=== PATIENT | female | born 1955 | race Caucasian/White ===

== ENCOUNTER 2020-06-23 15:09 | Inpatient (IN) | payer MEDICARE, SELFPAY ==
[2020-06-23] VITALS (8 sets, daily range): BP systolic 98–130; BP diastolic 48–90; PULSE 60–97; RESP 12–20; TEMP 36.6–37.6; O2SAT 2–99; BMI 43.0
--- NOTE | 2020-06-23 | US_ITS ---
EXAMINATION: US ABDOMEN COMPLETE CLINICAL INFORMATION: 64 year old female patient with elevated LFTs.. COMPARISON: CT of the abdomen and pelvis done July 2019. TECHNIQUE: Real-time imaging of the abdominal viscera. This exam was performed to the patient's bedside. FINDINGS: PANCREAS: Visualized portions are normal. No peripancreatic effusions. ABDOMINAL AORTA: The proximal and midportion of the aorta are normal in caliber. INFERIOR VENA CAVA: Visualized portions are normal. LIVER: Limited evaluation, but there is evidence of mild dilatation of the intrahepatic biliary ducts. GALLBLADDER: Evidently, the gallbladder has been surgically removed. COMMON BILE DUCT: Dilated measuring up to 1.2 cm in diameter. RIGHT KIDNEY: Normal. No hydronephrosis. No renal calculi or focal parenchymal lesions. The kidney measures 10.7 cm in maximum dimension. LEFT KIDNEY: Normal. No hydronephrosis. No renal calculi or focal parenchymal lesions. The kidney measures 9.6 cm in maximum dimension. SPLEEN: No focal disease. The spleen measures 11.5 cm in maximum dimension. FREE FLUID: None. IMPRESSION: Technically limited exam. Mild dilatation of the intrahepatic bile ducts and prominent common bile duct in this postcholecystectomy patient.
--- NOTE | 2020-06-23 15:17 | ED_ITS ---
HPI - Altered Mental Status General Chief Complaint: Altered Mental Status Stated Complaint: NON-RESPONSIVE Time Seen by Provider: 06/23/20 15:12 Source: EMS and old records reviewed Mode of arrival: EMS Limitations: altered mental status History of Present Illness MD complaint: altered mental status Onset (ago): day(s) (seemed okay early this morning but throughout the day worsened) Timing confirmed by: family member Severity: severe Consistency of symptoms: getting Worse Context: other (recent UTI but reportedly did not take her medications) Associated symptoms: chills, malaise, weakness and other (AMS) Related Data Allergies Allergy/AdvReac Type Severity Reaction Status Date / Time Sulfa (Sulfonamide Allergy Severe DIFFICULTY Verified 06/23/20 15:25 Antibiotics) BREATHING [SULFA (SULFONAMIDE ANTIBIOTICS)] cephalexin [From KEFLEX] Allergy Intermediate RASH,HIVES Verified 06/23/20 15:25 amoxicillin [AMOXICILLIN] Allergy Unknown DENIES Verified 06/23/20 15:25 THIS ALLERGY 03/28/2018 penicillin V Allergy Unknown Unknown Verified 06/23/20 15:25 sumatriptan [From IMITREX] AdvReac Severe HEART Verified 06/23/20 15:25 PALPITATIONS topiramate [From TOPAMAX] AdvReac Severe AGITATION Verified 06/23/20 15:25 Penicillins [PENICILLINS] AdvReac Unknown THRUSH Verified 06/23/20 15:25 Keflex Allergy Unknown Unknown Uncoded 06/23/20 15:25 Sulfa Allergy Unknown Unknown Uncoded 06/23/20 15:25 Topamax Allergy Unknown Unknown Uncoded 06/23/20 15:25 Review of Systems Review of Systems: ROS unable to be obtained due to altered mental status PENDING SALE TO [facility] Past Medical History Medical History (Updated 06/23/20 @ 16:15 by Mena Paul DO) Brain tumor CHF (congestive heart failure) Diabetes Diabetic acetonemia HTN (hypertension) Neuropathy UTI (urinary tract infection) Surgical History (Updated 06/23/20 @ 15:42 by Mena Paul DO) History of hysterectomy Social History Social History (Updated 06/23/20 @ 15:42 by Mena Paul DO) Smoking Status: Never smoker Use of substances other than those prescribed or required for medical reasons: No Advance Directives: No Advance Directives Information Provided: Yes Physical Exam Vital Signs: Vital Signs: Vital Signs Temp Pulse Resp BP Pulse Ox 06/23/20 15:16 99.7 F 93 16 104/48 L 96 Body Mass Index 43.0 Appearance: moderate distress, glassy eyes, vague staring but does track and respond to painful stimuli, lethargic Eyes: Pupils equal, round and reactive to light. ENT: Pharynx dry MM Neck: Normal inspection. Neck supple. CVS: Normal heart rate and rhythm. Pulses normal. Respiratory: No respiratory distress. Breath sounds normal. Abdomen: Soft and no grimace to palpation Skin: Skin warm and dry. Normal skin color. Normal skin turgor. Extremities: No lower extremity edema. No calf ttp Neuro: diffuse weakness, responds to painful stimuli, staring off, no focal deficits, lethargic and disoriented Course Course Course Narrative: signed out to Dr. Saunders pending workup MDM - Altered Mental Status MDM Narrative Medical decision making narrative: 64 yo tammyphoebe sheppard Lab Data Result diagrams: 06/23/20 15:39 06/23/20 15:39 Labs: Lab Results 06/23/20 06/23/20 06/23/20 Range/Units 15:26 15:38 15:39 WBC 7.9 (4.8-10.8) X10*3/uL RBC 4.03 L (4.20-5.50) X10*6/uL Hgb 13.0 (12.0-16.0) g/dl Hct 38.3 (37-47) % MCV 95.0 (80-98) fL MCH 32.3 (27.0-33.0) pg MCHC 33.9 (31.0-35.0) g/dl RDW 13.7 (11.0-16.0) % Plt Count 223 (160-400) X10*3/uL MPV 9.4 (9.4-12.3) fL Immature Gran % (Auto) 0.8 H (0.0-0.4) % Neut % (Auto) 64.6 (45-73) % Lymph % (Auto) 20.1 (20-40) % [place] % (Auto) 11.9 H (2-11) % Eos % (Auto) 2.3 (0-4) % Baso % (Auto) 0.3 (0-2) % Lymph # (Auto) 1.6 (1.2-4.9) X10*3/uL [place] # (Auto) 0.9 (0.1-1.2) X10*3/uL Eos # (Auto) 0.2 (0.0-0.4) X10*3/uL Baso # (Auto) 0.0 (0.0-0.2) X10*3/uL Abs Immat Gran (auto) 0.06 H (0.00-0.03) X10*3/uL Absolute Neuts (auto) 5.1 (2.0-8.3) X10*3/uL Absolute Nucleated RBC 0.000 (0.0-0.012) X10*3/uL Nucleated RBC % (auto) 0.0 (0.0-0.2) /100WBC PT (10.8-13.0) SEC INR (0.9-1.1) APTT (24.1-38.0) SEC VBG pH 7.32 (7.32-7.43) VBG pCO2 51 mmhg VBG Oxygen Liters/Min TNP VBG pO2 178 mmhg VBG HCO3 25 mmol/L VBG O2 Saturation 99.0 % VBG Base Excess -1.5 mmol/L POC Glucose 152 H (60-115) mg/dL Urine Color Urine Appearance Urine pH (5.0-8.0) Ur Specific [place] (1.005-1.025) Urine Protein (NEG-TRACE) MG/DL Urine Glucose (UA) (NEG) MG/DL Urine Ketones (NEG) MG/DL Urine Blood (NEG) Urine Nitrite (NEG) Ur Leukocyte Esterase (NEG) 06/23/20 06/23/20 Range/Units 15:39 15:51 WBC (4.8-10.8) X10*3/uL RBC (4.20-5.50) X10*6/uL Hgb (12.0-16.0) g/dl Hct (37-47) % MCV (80-98) fL MCH (27.0-33.0) pg MCHC (31.0-35.0) g/dl RDW (11.0-16.0) % Plt Count (160-400) X10*3/uL MPV (9.4-12.3) fL Immature Gran % (Auto) (0.0-0.4) % Neut % (Auto) (45-73) % Lymph % (Auto) (20-40) % [place] % (Auto) (2-11) % Eos % (Auto) (0-4) % Baso % (Auto) (0-2) % Lymph # (Auto) (1.2-4.9) X10*3/uL [place] # (Auto) (0.1-1.2) X10*3/uL Eos # (Auto) (0.0-0.4) X10*3/uL Baso # (Auto) (0.0-0.2) X10*3/uL Abs Immat Gran (auto) (0.00-0.03) X10*3/uL Absolute Neuts (auto) (2.0-8.3) X10*3/uL Absolute Nucleated RBC (0.0-0.012) X10*3/uL Nucleated RBC % (auto) (0.0-0.2) /100WBC PT 11.5 (10.8-13.0) SEC INR 1.0 (0.9-1.1) APTT 50.0 H (24.1-38.0) SEC VBG pH (7.32-7.43) VBG pCO2 mmhg VBG Oxygen Liters/Min VBG pO2 mmhg VBG HCO3 mmol/L VBG O2 Saturation % VBG Base Excess mmol/L POC Glucose (60-115) mg/dL Urine Color YELLOW Urine Appearance CLEAR Urine pH 6.0 (5.0-8.0) Ur Specific [place] <= 1.005 (1.005-1.025) Urine Protein NEG (NEG-TRACE) MG/DL Urine Glucose (UA) NEG (NEG) MG/DL Urine Ketones NEG (NEG) MG/DL Urine Blood NEG (NEG) Urine Nitrite NEG (NEG) Ur Leukocyte Esterase NEG (NEG) ECG Data ECG #1: Attestation: I personally reviewed and interpreted this ECG as follows: ECG interpretation date: 06/23/20 ECG interpretation time: 15:44 Interpretation: Rate: 86 Rhythm: NSR [place]: normal Normal P waves. Normal MARYBETH. Normal QRS complex. ST T wave : normal qTC: normal prior studies: no acute ischemia The study has been interpreted contemporaneously by me. . Critical Care Time Critical Care Time Critical Care Time: Yes Total Critical Care Time: 30 Attestation: reivew of notes, bedside, IVF, empiric antibiotics I personally attest to this time spent taking care of the patient Discharge Plan Discharge Clinical Impression: Altered mental status
--- NOTE | 2020-06-23 15:18 | CT_ITS ---
EXAMINATION: CT HEAD WITHOUT CONTRAST CLINICAL INFORMATION: 64-year-old female patient with acute mental status change. COMPARISON: CT the brain on 03/16/2020. (Generalized atrophy and nonspecific periventricular white matter disease). TECHNIQUE: Contiguous axial imaging was performed from the skull base to vertex without intravenous administration of contrast. This CT examination was performed using dose optimization techniques as appropriate, variously including the following: *Automated exposure control *Adjustment of mA and/or kV according to patient size (this includes techniques or standardized protocols for targeted exams where dose is matched to indication/reason for exam; i.e. extremities or head) *Use of iterative reconstruction technique DLP: 737 mGy-cm FINDINGS: [employer]ience [employer] Clerk: There is hyperostosis interna frontalis. There is no evidence of acute intracranial hemorrhage or territorial infarction. No abnormal mass effect or midline shift is seen. [place] to white matter differentiation is well preserved. No extra-axial fluid collections are identified. The ventricles are concordant with the cerebral sulci. A tiny lacunar infarct is located in the left basal ganglia, no change. There is no abnormal attenuation within the brain parenchyma. The osseous structures and soft tissues are normal. The mastoid air cells and visualized portions of the paranasal sinuses are well aerated. IMPRESSION: No acute intracranial pathology.
--- NOTE | 2020-06-23 15:18 | ECG_ITS ---
Test Reason : AMS Blood Pressure : / mmHG Vent. Rate : 086 BPM Atrial Rate : 086 BPM P-R Int : 130 ms QRS Dur : 088 ms QT Int : 378 ms P-R-T Axes : 027 019 028 degrees QTc Int : 452 ms Normal sinus rhythm Normal ECG When compared with ECG of 31-MAY-2020 22:55, No significant change was found Referred By: Mena Paul Electronically Signed By:JAX ROGERS MD
--- NOTE | 2020-06-23 15:19 | XR_ITS ---
EXAMINATION: XR CHEST PORTABLE CLINICAL INFORMATION: 64-year-old female patient with acute mental status change. COMPARISON: Last chest x-ray done 11/07/2019. TECHNIQUE: AP portable semierect view of the chest was obtained. The time of examination was 4:20 PM. FINDINGS: The heart is normal in size. An azygos lobe is present. Lung volumes are low but the lungs are clear showing no acute pulmonary parenchymal or pleural disease. Posterior spinal fusion hardware involves the upper thoracic spine. There are old fractures of the left humeral neck and distal right clavicle. Callus formation is forming about an old fracture of an anterior lower left rib. There is calcific tendinitis of the right shoulder joint. IMPRESSION: No acute cardiopulmonary disease.
[2020-06-23 15:52] LABS: MANUAL DIFF FLAG NO
[2020-06-23 15:56] LABS: Basophils Percent Auto 0.3 % (0-2); Eosinophils Absolute Auto 0.2 X10*3/uL (0.0-0.4); Eosinophils Percent Auto 2.3 % (0-4); Hematocrit 38.3 % (37-47); Imm Gran Abs Auto 0.06 X10*3/uL (0.00-0.03); Imm Gran Pct Auto 0.8 % (0.0-0.4); Lymphocytes Absolute Auto 1.6 X10*3/uL (1.2-4.9); Lymphocytes Percent Auto 20.1 % (20-40); Mean Corpuscular HGB Conc 33.9 g/dl (31.0-35.0); Mean Corpuscular Hemoglobin 32.3 pg (27.0-33.0); Mean Platelet Volume 9.4 fL (9.4-12.3); Monocytes Absolute Auto 0.9 X10*3/uL (0.1-1.2); Monocytes Percent Auto 11.9 % (2-11); Neutrophils Absolute Auto 5.1 X10*3/uL (2.0-8.3); Neutrophils Percent Auto 64.6 % (45-73); Platelet Count 223 X10*3/uL (160-400); Red Blood Count 4.03 X10*6/uL (4.20-5.50); Red Cell Distribution Width 13.7 % (11.0-16.0); White Blood Count 7.9 X10*3/uL (4.8-10.8)
[2020-06-23 16:00] LABS: Glucose, Whole Blood 152 mg/dL (60-115)
[2020-06-23] MEDS: 0.9 % Sodium Chloride 1,000 ML 999 ML IVCONT ×2 (16:01→18:35)
[2020-06-23] MEDS: cefTRIAXone sodium 1 GM in 0.9 % Sodium Chloride 50 ML IV (16:01)
[2020-06-23 16:03] LABS: PCO2 VBG 51 mmhg; pH VBG 7.32 (7.32-7.43)
[2020-06-23 16:04] LABS: Base Excess VBG -1.5 mmol/L; HCO3 VBG 25 mmol/L; PO2 VBG 178 mmhg
[2020-06-23 16:04] LABS: Glucose Urine UA NEG (NEG); Leukocyte Esterase Urine NEG (NEG); Nitrite Urine NEG (NEG); Specific Gravity - Urine <= 1.005 (1.005-1.025); Urine Blood NEG (NEG); Urine Ketones NEG (NEG); Urine Protein NEG (NEG-TRACE)
[2020-06-23 16:05] LABS: Blood Gas Serial # 5396
[2020-06-23 16:05] LABS: Prothrombin Time 11.5 SEC (10.8-13.0)
[2020-06-23 16:07] LABS: Color Urine YELLOW
[2020-06-23 16:08] LABS: Appearance Urine CLEAR
[2020-06-23 16:16] LABS: Bacteria Urine 1+ /LPF; RBC Urine 0 /HPF (0); Squamous Epithelial Cell Urine 1+ /LPF; Uric Acid Crystals Urine 1+ /LPF; WBC Urine 0 /HPF (0-4)
[2020-06-23 16:34] LABS: Lactic Acid 1.2 mmol/L (0.5-2.0)
[2020-06-23 16:37] LABS: Ethanol < 10 mg/dL
[2020-06-23 16:38] LABS: Ammonia 50 umol/L (13-55)
[2020-06-23 16:39] LABS: Acetaminophen LAB 1 mcg/mL (<30)
[2020-06-23 16:44] LABS: B Type Natriuretic Peptide 15 pg/mL (<100)
[2020-06-23 16:45] LABS: Alanine Aminotransferase 526 U/L (0-31); Albumin Level 4.1 g/dL (3.5-5.0); Alkaline Phosphatase 162 U/L (39-117); Anion Gap 17 (12-20); Aspartate Amino Transferase 807 U/L (5-31); Bilirubin Direct 0.5 mg/dL (0.0-0.5); Bilirubin Total 0.6 mg/dL (0.0-1.0); Blood Urea Nitrogen 42 mg/dL (9-16); Calcium 9.9 mg/dL (8.4-10.2); Carbon Dioxide 24 mmol/L (22-29); Chloride 103 mmol/L (96-108); Creatinine Clr Calc Pharmacy 40.4; Estimated Glomerular Filt Rate 34; Glucose Random 156 mg/dL (60-115); Lipase 38 U/L (8-78); Magnesium 1.9 mg/dL (1.6-2.6); Potassium 4.5 mmol/l (3.3-5.1); Sodium 139 mmol/L (135-145); Total Protein 6.7 g/dL (6.5-8.0)
[2020-06-23 16:54] LABS: Salicylate < 5.0 mg/dL (15-30)
[2020-06-23 16:59] LABS: Troponin-I High Sensitivity 4.1 ng/L (<3.5-17.0)
[2020-06-23 17:01] LABS: Thyroid Stimulating Hormone 2.03 mIU/mL (0.32-4.0)
--- NOTE | 2020-06-23 17:57 | PC.NURSE ---
THIS RN SPOKE WITH PT'S VICK IN [facility]. UPDATED ON PT'S STATUS AND PENDING ADMISSION. PHONE NUMBER IS [phone]/
[2020-06-23 18:04] LABS: SARS COV2 PCR INHOUSE NEGATIVE (Negative)
--- NOTE | 2020-06-23 18:35 | PC.NURSE ---
ns 1l bolus scanned x 3
[2020-06-23 20:27] LABS: Glucose, Whole Blood 153 mg/dL (60-115)
--- NOTE | 2020-06-23 21:42 | PC.NURSE ---
home phone [phone] [facility]
--- NOTE | 2020-06-23 21:46 | PC.NURSE ---
Patient having spastic movements, moving arms above head and clenching fists. patient looks at this RN when this RN calls patients name otherwise patient not answering. Dr Saunders to bedside.
[2020-06-23] MEDS: LORazepam 2 MG/ML VIAL IVPUSH (21:52)
--- NOTE | 2020-06-23 21:57 | P.HPIM_ITS ---
History of Present Illness Date of Service: 06/23/20 Chief Complaint: AMS 64 y/o female who presented from home due to AMS. Per history provided by the ED (patient unable to provide with any significant hx), patient was noted by family members to be lethargic and not like herself . Per ED, patient has had multiple episodes of UTI before with a similar presentation of AMS due to metabolic encephalopathy. Last admission on 11/20, Ucx positive for E coli ESBL negative which was treated with Rocephin successfully. Vitals at some point borderline hypotensive with tachycardia and tachypnea, UA negative but patient was on antbx at home which might be a false result. Given findings raises concern for possible sepsis secondary to UTI. Patient was given one dose of Rocephin and decision for admission was given. Patient seen and examined at the bedside, laying down in bed, lethargic, not responsive to verbal or painful stimuli but awake, disoriented. ROS unable to be obtained. Physical exam positive for disorientation PMHx: Diabetes mellitus, hypertension, diastolic heart failure, obstructive sleep apnea, depression, restless legs syndrome, recurrent urinary tract infections. SURGICAL HISTORY: Hysterectomy, submandibular surgery yesterday. Toxic habits: Deanna hx of alcohol abuse, smoking or IVDA Review of Systems Review of Systems: Yes Other (unable to be obtained) [facility] Medical History Brain tumor CHF (congestive heart failure) Diabetes Diabetic acetonemia HTN (hypertension) Neuropathy UTI (urinary tract infection) Functional capacity: independent ambulation Surgical History History of hysterectomy Social History Smoking Status: Never smoker Use of substances other than those prescribed or required for medical reasons: No Advance Directives: No Advance Directives Information Provided: Yes Meds Allergies Allergy/AdvReac Type Severity Reaction Status Date / Time Sulfa (Sulfonamide Allergy Severe DIFFICULTY Verified 06/23/20 15:25 Antibiotics) BREATHING [SULFA (SULFONAMIDE ANTIBIOTICS)] cephalexin [From KEFLEX] Allergy Intermediate RASH,HIVES Verified 06/23/20 15:25 amoxicillin [AMOXICILLIN] Allergy Unknown DENIES Verified 06/23/20 15:25 THIS ALLERGY 03/28/2018 penicillin V Allergy Unknown Unknown Verified 06/23/20 15:25 sumatriptan [From IMITREX] AdvReac Severe HEART Verified 06/23/20 15:25 PALPITATIONS topiramate [From TOPAMAX] AdvReac Severe AGITATION Verified 06/23/20 15:25 Penicillins [PENICILLINS] AdvReac Unknown THRUSH Verified 06/23/20 15:25 Keflex Allergy Unknown Unknown Uncoded 06/23/20 15:25 Sulfa Allergy Unknown Unknown Uncoded 06/23/20 15:25 Topamax Allergy Unknown Unknown Uncoded 06/23/20 15:25 Home Medications Medication Instructions Recorded Confirmed Type amitriptyline 75 mg PO BEDTIME 06/23/20 06/23/20 History atorvastatin 20 mg PO DAILY 06/23/20 06/23/20 History baclofen 10 mg PO TID 06/23/20 06/23/20 History dicyclomine 20 mg PO TID 06/23/20 06/23/20 History gabapentin 300 mg PO BID 06/23/20 06/23/20 History hydrochlorothiazide 12.5 mg PO DAILY 06/23/20 06/23/20 History insulin glargine [Lantus Solostar 40 unit SUBCUT BEDTIME 06/23/20 06/23/20 History U-100 Insulin] insulin lispro [Humalog KwikPen 2 - 14 unit SUBCUT DIRECTED 06/23/20 06/23/20 History Insulin] nitrofurantoin macrocrystal 100 cap PO DAILY 06/23/20 06/23/20 History pantoprazole 40 mg PO BID@0630,1630 06/23/20 06/23/20 History promethazine 25 mg PO Q4-6H PRN 06/23/20 06/23/20 History quetiapine 50 mg PO BEDTIME 06/23/20 06/23/20 History sucralfate 1 g PO QIDACHS 06/23/20 06/23/20 History Physical Exam Vital Signs and Narrative: Vital Signs: Last Vital Signs Temp 97.9 F 06/23/20 20:08 Pulse 97 06/23/20 21:18 Resp 20 06/23/20 21:18 BP 107/87 06/23/20 21:18 Pulse Ox 99 06/23/20 21:18 Body Mass Index 43.0 Const: General: no acute distress and other (disoriented) HENMT: Head: Yes normal to inspection Eyes: General: appearance normal, both eyes and all related structures Neck: Yes normal visual inspection Chest: Chest palpation & inspection: normal inspection of the chest Resp: Effort & Inspection: normal respiratory effort Cardio: Jugular venous distension: no JVD Rhythm: regular rhythm Heart sounds: S1 normal heart sound present GI: Inspection: Yes normal to inspection Skin: General skin exam: no rashes or lesions noted Neuro: General: confusion Extrem: General: Yes normal to inspection Results Labs Labs: Laboratory Tests 06/23/20 06/23/20 06/23/20 02:05 15:26 15:38 WBC RBC Hgb Hct MCV MCH MCHC RDW Plt Count MPV Immature Gran % (Auto) Neut % (Auto) Lymph % (Auto) [place] % (Auto) Eos % (Auto) Baso % (Auto) Lymph # (Auto) [place] # (Auto) Eos # (Auto) Baso # (Auto) Abs Immat Gran (auto) Absolute Neuts (auto) Absolute Nucleated RBC Nucleated RBC % (auto) PT INR APTT VBG pH VBG pCO2 VBG Oxygen Liters/Min VBG pO2 VBG HCO3 VBG O2 Saturation VBG Base Excess Sodium Potassium Chloride Carbon Dioxide Anion Gap BUN Creatinine Estim Creat Clear Calc Estimated GFR POC Glucose 152 H Random Glucose Lactic Acid Calcium Magnesium Total Bilirubin Direct Bilirubin AST ALT Alkaline Phosphatase Ammonia 50 Troponin I High Sens 4.1 B-Natriuretic Peptide Total Protein Albumin Lipase TSH Urine Color Urine Appearance Urine pH Ur Specific [place] Urine Protein Urine Glucose (UA) Urine Ketones Urine Blood Urine Nitrite Ur Leukocyte Esterase Urine RBC Urine WBC Ur Squamous Epith Cells Uric Acid Crystals Urine Bacteria Salicylates Acetaminophen Ethyl Alcohol Coronavirus (PCR) 06/23/20 06/23/20 06/23/20 15:38 15:39 15:39 WBC 7.9 RBC 4.03 L Hgb 13.0 Hct 38.3 MCV 95.0 MCH 32.3 MCHC 33.9 RDW 13.7 Plt Count 223 MPV 9.4 Immature Gran % (Auto) 0.8 H Neut % (Auto) 64.6 Lymph % (Auto) 20.1 [place] % (Auto) 11.9 H Eos % (Auto) 2.3 Baso % (Auto) 0.3 Lymph # (Auto) 1.6 [place] # (Auto) 0.9 Eos # (Auto) 0.2 Baso # (Auto) 0.0 Abs Immat Gran (auto) 0.06 H Absolute Neuts (auto) 5.1 Absolute Nucleated RBC 0.000 Nucleated RBC % (auto) 0.0 PT INR APTT VBG pH 7.32 VBG pCO2 51 VBG Oxygen Liters/Min TNP VBG pO2 178 VBG HCO3 25 VBG O2 Saturation 99.0 VBG Base Excess -1.5 Sodium Potassium Chloride Carbon Dioxide Anion Gap BUN Creatinine Estim Creat Clear Calc Estimated GFR POC Glucose Random Glucose Lactic Acid Calcium Magnesium Total Bilirubin Direct Bilirubin AST ALT Alkaline Phosphatase Ammonia Troponin I High Sens B-Natriuretic Peptide 15 Total Protein Albumin Lipase TSH Urine Color Urine Appearance Urine pH Ur Specific [place] Urine Protein Urine Glucose (UA) Urine Ketones Urine Blood Urine Nitrite Ur Leukocyte Esterase Urine RBC Urine WBC Ur Squamous Epith Cells Uric Acid Crystals Urine Bacteria Salicylates Acetaminophen Ethyl Alcohol Coronavirus (PCR) 06/23/20 06/23/20 06/23/20 15:39 15:39 15:39 WBC RBC Hgb Hct MCV MCH MCHC RDW Plt Count MPV Immature Gran % (Auto) Neut % (Auto) Lymph % (Auto) [place] % (Auto) Eos % (Auto) Baso % (Auto) Lymph # (Auto) [place] # (Auto) Eos # (Auto) Baso # (Auto) Abs Immat Gran (auto) Absolute Neuts (auto) Absolute Nucleated RBC Nucleated RBC % (auto) PT 11.5 INR 1.0 APTT 50.0 H VBG pH VBG pCO2 VBG Oxygen Liters/Min VBG pO2 VBG HCO3 VBG O2 Saturation VBG Base Excess Sodium 139 Potassium 4.5 Chloride 103 Carbon Dioxide 24 Anion Gap 17 BUN 42 H Creatinine 1.53 H Estim Creat Clear Calc 40.4 Estimated GFR 34 POC Glucose Random Glucose 156 H Lactic Acid 1.2 Calcium 9.9 Magnesium 1.9 Total Bilirubin 0.6 Direct Bilirubin 0.5 AST 807 H ALT 526 H Alkaline Phosphatase 162 H Ammonia Troponin I High Sens B-Natriuretic Peptide Total Protein 6.7 Albumin 4.1 Lipase 38 TSH 2.03 Urine Color Urine Appearance Urine pH Ur Specific [place] Urine Protein Urine Glucose (UA) Urine Ketones Urine Blood Urine Nitrite Ur Leukocyte Esterase Urine RBC Urine WBC Ur Squamous Epith Cells Uric Acid Crystals Urine Bacteria Salicylates < 5.0 L Acetaminophen Ethyl Alcohol Coronavirus (PCR) 06/23/20 06/23/20 06/23/20 15:39 15:39 15:51 WBC RBC Hgb Hct MCV MCH MCHC RDW Plt Count MPV Immature Gran % (Auto) Neut % (Auto) Lymph % (Auto) [place] % (Auto) Eos % (Auto) Baso % (Auto) Lymph # (Auto) [place] # (Auto) Eos # (Auto) Baso # (Auto) Abs Immat Gran (auto) Absolute Neuts (auto) Absolute Nucleated RBC Nucleated RBC % (auto) PT INR APTT VBG pH VBG pCO2 VBG Oxygen Liters/Min VBG pO2 VBG HCO3 VBG O2 Saturation VBG Base Excess Sodium Potassium Chloride Carbon Dioxide Anion Gap BUN Creatinine Estim Creat Clear Calc Estimated GFR POC Glucose Random Glucose Lactic Acid Calcium Magnesium Total Bilirubin Direct Bilirubin AST ALT Alkaline Phosphatase Ammonia Troponin I High Sens B-Natriuretic Peptide Total Protein Albumin Lipase TSH Urine Color YELLOW Urine Appearance CLEAR Urine pH 6.0 Ur Specific [place] <= 1.005 Urine Protein NEG Urine Glucose (UA) NEG Urine Ketones NEG Urine Blood NEG Urine Nitrite NEG Ur Leukocyte Esterase NEG Urine RBC 0 Urine WBC 0 Ur Squamous Epith Cells 1+ Uric Acid Crystals 1+ Urine Bacteria 1+ Salicylates Acetaminophen 1 Ethyl Alcohol < 10 Coronavirus (PCR) 06/23/20 06/23/20 17:03 20:22 WBC RBC Hgb Hct MCV MCH MCHC RDW Plt Count MPV Immature Gran % (Auto) Neut % (Auto) Lymph % (Auto) [place] % (Auto) Eos % (Auto) Baso % (Auto) Lymph # (Auto) [place] # (Auto) Eos # (Auto) Baso # (Auto) Abs Immat Gran (auto) Absolute Neuts (auto) Absolute Nucleated RBC Nucleated RBC % (auto) PT INR APTT VBG pH VBG pCO2 VBG Oxygen Liters/Min VBG pO2 VBG HCO3 VBG O2 Saturation VBG Base Excess Sodium Potassium Chloride Carbon Dioxide Anion Gap BUN Creatinine Estim Creat Clear Calc Estimated GFR POC Glucose 153 H Random Glucose Lactic Acid Calcium Magnesium Total Bilirubin Direct Bilirubin AST ALT Alkaline Phosphatase Ammonia Troponin I High Sens B-Natriuretic Peptide Total Protein Albumin Lipase TSH Urine Color Urine Appearance Urine pH Ur Specific [place] Urine Protein Urine Glucose (UA) Urine Ketones Urine Blood Urine Nitrite Ur Leukocyte Esterase Urine RBC Urine WBC Ur Squamous Epith Cells Uric Acid Crystals Urine Bacteria Salicylates Acetaminophen Ethyl Alcohol Coronavirus (PCR) NEGATIVE Assessment and Plan (1) Altered mental status: Qualifiers: Altered mental status type: unspecified Qualified Code(s): R41.82 - Altered mental status, unspecified Status: Acute Likely secondary to metabolice encephalopathy Continue with IV antbx as ordered and monitor mental status closely Neurology consult in the am (2) Elevated liver function tests: Status: Acute Follow up US abdomen complete (3) Sepsis: Status: Acute Keep MAP >65 mmHg Continue with Rocephin for gram negative coverage Follow up Bcx and Ucx Infectious disease consult in the am (4) CHF (congestive heart failure): Status: Inactive (5) UTI (urinary tract infection): Status: Inactive (6) HTN (hypertension): Status: Inactive continue with HCTZ home dose (7) Depression: Status: Acute continue with amitriptiline home dose continue with baclofen home dose continue with quetiapine home dose (8) Hyperlipidemia: Status: Acute continue with atorvastatin home dose (9) IBS (irritable bowel syndrome): Status: Acute continue with diciclomine home dose (10) Diabetes mellitus with peripheral angiopathy: Status: Acute continue with Insulin regimen continue with gabapentin home dose
--- NOTE | 2020-06-23 22:21 | PC.NURSE ---
patient resting on stretcher w/ eyes closed. resp even and non labored. opens eyes to sternal rub, now raising arms back up in air now that awoken.
[2020-06-24] VITALS (19 sets, daily range): BP systolic 106–199; BP diastolic 54–95; PULSE 67–126; RESP 18–22; TEMP 36.3–37.2; O2SAT 74–100; BMI 43.0
[2020-06-24] MEDS: Heparin Sodium,Porcine 5,000 UNIT/ML VIAL 5000 UNIT SUBCUT ×2 (03:17→11:46)
[2020-06-24] MEDS: diphenhydrAMINE HCL 50 MG/ML VIAL 12.5 MG IVPUSH (03:17)
[2020-06-24] MEDS: 0.9 % Sodium Chloride Flush 3 ML SYRINGE IVFLUSH ×3 (03:18→16:25)
[2020-06-24 03:29] LABS: Glucose, Whole Blood 174 mg/dL (60-115)
[2020-06-24] MEDS: Morphine Sulfate 2 MG/ML CARTRIDGE 1 MG IVPUSH (03:48)
--- NOTE | 2020-06-24 05:33 | PM.EVENT ---
Event Note Event Note: Notified patient now is agitated. I examined the patient at the bedside, still confused but more active now, moving all four extremities trying to get out of bed. One dose of Haldol and benadryl to be given now stat.
[2020-06-24] MEDS: Haloperidol Lactate 5 MG/ML VIAL 1 MG IM (05:59)
[2020-06-24] MEDS: diphenhydrAMINE HCL 50 MG/ML VIAL 25 MG IM (06:00)
[2020-06-24 06:21] LABS: MANUAL DIFF FLAG NO
[2020-06-24 06:33] LABS: Basophils Absolute Auto 0.1 X10*3/uL (0.0-0.2); Basophils Percent Auto 0.4 % (0-2); Eosinophils Absolute Auto 0.3 X10*3/uL (0.0-0.4); Eosinophils Percent Auto 2.4 % (0-4); Hematocrit 39.4 % (37-47); Imm Gran Abs Auto 0.11 X10*3/uL (0.00-0.03); Imm Gran Pct Auto 0.9 % (0.0-0.4); Lymphocytes Absolute Auto 2.2 X10*3/uL (1.2-4.9); Lymphocytes Percent Auto 17.9 % (20-40); Mean Corpuscular Hemoglobin 31.7 pg (27.0-33.0); Mean Corpuscular Volume 96.1 fL (80-98); Mean Platelet Volume 9.8 fL (9.4-12.3); Monocytes Absolute Auto 0.8 X10*3/uL (0.1-1.2); Monocytes Percent Auto 6.5 % (2-11); Neutrophils Percent Auto 71.9 % (45-73); Platelet Count 213 X10*3/uL (160-400); Red Cell Distribution Width 13.8 % (11.0-16.0); White Blood Count 12.5 X10*3/uL (4.8-10.8)
[2020-06-24 06:53] LABS: Anion Gap 20 (12-20); Blood Urea Nitrogen 31 mg/dL (9-16); Calcium 9.3 mg/dL (8.4-10.2); Carbon Dioxide 18 mmol/L (22-29); Chloride 109 mmol/L (96-108); Estimated Glomerular Filt Rate > 60; Glucose Random 202 mg/dL (60-115); Potassium 4.2 mmol/l (3.3-5.1); Sodium 143 mmol/L (135-145)
--- NOTE | 2020-06-24 08:42 | P.CDIC_ITS ---
CDI Concurrent Query Service Date: 06/24/20 Documentation Clarification: Please clarify if you are treating a proba ble/suspected/likely or confirmed: GARY No GARY GARY Provider Response: Other (GARY) Other Diagnosis: GARY PLEASE DO NOT DELETE/MODIFY EXISTING CONTENT Additional information is needed in order to code to the highest accuracy and appropriate Severity of Illness (SOI). Please clarify the information noted below in your progress notes and discharge summary. Risk Factors/Clinical Indicators/Treatments 64 F admitted with tonic clonic movement concerning for seizure, changed mental status, Metabolic Encephalopathy Recently treated for UTI. UC pending BUN 42, Creatinine 1.53 on admit BUN 24, Creatinine .85 on 05/31/20 CDS: Mari Funes RN Contact Number: [phone] Please Review the information above and exercise your independent professional judgment in responding to the query. If you concur, pleas document in the PROGRESS NOTES and DISCHARGE SUMMARY. If you do not agree with the query, please document in the query above. THIS QUERY IS PART OF THE PERMANENT MEDICAL RECORD
--- NOTE | 2020-06-24 08:58 | PC.NURSE ---
ASSUMED CARE AT 01:30. PATIENT ARRIVED TO UNIT STATUS POST 2 MG ATIVAN IV PER ED NURSE R/T ?TONIC-CLONIC SPASTICITY EPISODE IN ED; THEREFORE SEIZURE PRECAUTIONS IN PLACE. PATIENT ALSO IS ALERT, BUT PROFOUNDLY CONFUSED AND UNABLE TO RESPOND MEANINGFULLY TO QUESTIONS OR COMMANDS--SHE WILL REPEAT OW, AND NO BABY, AND GROAN, AND HER YES AND NO ANSWERS SEEM INCONSISTENT. SHE WAS, UPON ARRIVAL FROM ED, COMPLETELY NONVERBAL, BUT BECAME CONSTANTLY VERBAL IN THE ABOVE DESCRIBED WAYS. SHE WAS KEPT NPO AND FAILED NURSING BEDSIDE SWALLOW EVAL. PATIENT REQUIRED 1:1 SITTER IMMEDIATELY SHE WAS THRASHING BACK AND FORTH IN THE BED VIOLENTLY AND ERRATICALLY, IN A WAY THAT APPEARED TO BE EITHER BEHAVIORAL OR SPASTIC OR PERHAPS RELATED TO RLS. MD NOTIFIED, AND NEW ORDER FOR IV BENEDRYL, ADMINISTERED TO PATIENT TO HELP HER TOLERATE HER CARE AND INTERACT BETTER WITH PLAN OF CARE. PATIENT WAS SAYING OW! REPEATEDLY ABOVE, AND APPEARED TO HAVE NONVERBAL SIGNS OF PAIN, INCLUDING GRIMACING AND GROANING, BUT WAS UNABLE TO INDICATE THE LOCATION OF HER PAIN. DISCUSSED WITH MD, AND NEW ORDER FOR IV MORPHINE WAS ADMINISTERED WITH GOOD EFFECT, THOUGH SHORT-LIVED. ONE HOUR LATER, PATIENT CONTINUED TO DEMONSTRATE ABOVE BEHAVIOR CONSTANTLY THRASHING ABOUT. 1:1 SITTER WAS HAVING TROUBLE KEEPING PAITIENT SAFE. MD WAS CONTACTED AND ASKED TO COME TO BEDSIDE TO ASSESS PATIENT. DISCUSSED ?IS PATIENT'S AMMONIA LEVEL CLIMBING AND SHOULD WE RECHECK AMMONIA? MD ORDERED IV BENEDRYL AND 1 MG IV HALDOL TO HELP PATIENT TOLERATE HER CARE AND PARTICIPATE WITH CARE EASIER, SHE WAS REPEATEDLY INCONTINENT OF URINE, TOTAL INCONTINENCE OF 5 TIMES. JUST MD LEFT ROOM, PATIENT'S IV HAD COME LOOSE. MD NOTIFIED, AND CHANGED ROUTE OF ADMINISTRATION TO IM, AND THESE MEDICATIONS WERE ADMINISTERED WITH VERY MILD NOTICEABLE POSITIVE EFFECT, PATIENT WAS SLIGHTLY LESS VIOLENTLY THRASHING ABOUT, AND A NEW IV WAS PLACED IN HER RIGHT WRIST. PATIENT WAS DIAPHORETIC 2 X OVERNIGHT, AND HER POC WAS CHECKED AND WAS SLIGHTLY ELEVATED, 170'S.
[2020-06-24 09:17] LABS: Glucose, Whole Blood 195 mg/dL (60-115)
[2020-06-24 09:23] LABS: Alanine Aminotransferase 404 U/L (0-31); Albumin Level 4.1 g/dL (3.5-5.0); Alkaline Phosphatase 170 U/L (39-117); Aspartate Amino Transferase 292 U/L (5-31); Bilirubin Direct 0.3 mg/dL (0.0-0.5); Bilirubin Total 0.5 mg/dL (0.0-1.0); Total Protein 6.9 g/dL (6.5-8.0)
--- NOTE | 2020-06-24 10:50 | P.CNNE_ITS ---
History of Present Illness Data of Consult Primary Care Provider: Unknown Physician 64 y/o woman with PMHx of obesity, severe arthritis, idiopathic intracranial HTN s/p lumboperotineal shunt, and RLS who was brought to hospital with change in mental status. There was no witnessing of a convulsion or truama. It was not clear if she has taken any new med or drug. She was unable to provide any histroy. Review of Systems Review of Systems: Unable to perform ROS. No obvious trauma. Neurologic: Reports confusion Psychiatric: Psychiatric: Reports confusion [facility] Past Medical History Medical History (Updated 06/24/20 @ 10:59 by Nadeem Melendez MD) Brain tumor CHF (congestive heart failure) Diabetes Diabetic acetonemia HTN (hypertension) Neuropathy UTI (urinary tract infection) Functional capacity: independent ambulation Surgical History Surgical History History of hysterectomy Social History Social History Household Members: Unknown / Unable to assess Housing: Apartment Smoking Status: Never smoker Use of substances other than those prescribed or required for medical reasons: Unable to respond Spiritual Healthcare Practices: UNABLE TO ASSESS/RESPOND Jain Healthcare Practices: UNABLE TO ASSESS/RESPOND Cultural Healthcare Practices: UNABLE TO ASSESS/RESPOND Advance Directives: No Advance Directives Information Provided: Yes Recently lost weight without trying: Unsure Meds Allergies Allergy/AdvReac Type Severity Reaction Status Date / Time Sulfa (Sulfonamide Allergy Severe DIFFICULTY Verified 06/23/20 15:25 Antibiotics) BREATHING [SULFA (SULFONAMIDE ANTIBIOTICS)] cephalexin [From KEFLEX] Allergy Intermediate RASH,HIVES Verified 06/23/20 15:25 amoxicillin [AMOXICILLIN] Allergy Unknown DENIES Verified 06/23/20 15:25 THIS ALLERGY 03/28/2018 penicillin V Allergy Unknown Unknown Verified 06/23/20 15:25 sumatriptan [From IMITREX] AdvReac Severe HEART Verified 06/23/20 15:25 PALPITATIONS topiramate [From TOPAMAX] AdvReac Severe AGITATION Verified 06/23/20 15:25 Penicillins [PENICILLINS] AdvReac Unknown THRUSH Verified 06/23/20 15:25 Keflex Allergy Unknown Unknown Uncoded 06/23/20 15:25 Sulfa Allergy Unknown Unknown Uncoded 06/23/20 15:25 Topamax Allergy Unknown Unknown Uncoded 06/23/20 15:25 Home Medications Medication Instructions Recorded Confirmed Type amitriptyline 75 mg PO BEDTIME 06/23/20 06/23/20 History atorvastatin 20 mg PO DAILY 06/23/20 06/23/20 History baclofen 10 mg PO TID 06/23/20 06/23/20 History dicyclomine 20 mg PO TID 06/23/20 06/23/20 History gabapentin 300 mg PO BID 06/23/20 06/23/20 History hydrochlorothiazide 12.5 mg PO DAILY 06/23/20 06/23/20 History insulin glargine [Lantus Solostar 40 unit SUBCUT BEDTIME 06/23/20 06/23/20 History U-100 Insulin] insulin lispro [Humalog KwikPen 2 - 14 unit SUBCUT DIRECTED 06/23/20 06/23/20 History Insulin] nitrofurantoin macrocrystal 100 cap PO DAILY 06/23/20 06/23/20 History pantoprazole 40 mg PO BID@0630,1630 06/23/20 06/23/20 History promethazine 25 mg PO Q4-6H PRN 06/23/20 06/23/20 History quetiapine 50 mg PO BEDTIME 06/23/20 06/23/20 History sucralfate 1 g PO QIDACHS 06/23/20 06/23/20 History Physical Exam Vital Signs: Vital Signs: Vital Signs Temp Pulse Resp BP Pulse Ox 06/24/20 03:48 20 06/24/20 02:00 97.4 F 107 H 20 106/77 96 06/23/20 23:27 98.5 F 87 15 122/67 2 L 06/23/20 22:19 75 14 121/55 L 97 06/23/20 21:18 97 20 107/87 99 06/23/20 20:08 97.9 F 65 12 113/57 L 99 06/23/20 18:36 97.9 F 62 12 109/52 L 06/23/20 18:20 98.3 F 60 12 98/50 L 98 06/23/20 16:00 98.1 F 88 15 112/60 06/23/20 15:16 99.7 F 93 16 104/48 L 96 Body Mass Index 43.0 Drowsy, not responsive to verbal commands. Intermittently made an eye contact, said Hello. Did not repeat or named. EOMI, no nystagmus or deviation or jerking. Generatlised arms, legs and body dystonic posturing, restlessness. DTRs are trace to absent, plantars equivocal.Limited exam. Const: General: confusion Orientation/consciousness: confusion Neuro: General: confusion Results Labs CBC & Chem 7: 06/24/20 05:45 06/24/20 05:45 Labs: Short CBC 06/23/20 06/24/20 Range/Units 15:39 05:45 WBC 7.9 12.5 H (4.8-10.8) X10*3/uL Hgb 13.0 13.0 (12.0-16.0) g/dl Hct 38.3 39.4 (37-47) % Plt Count 223 213 (160-400) X10*3/uL BMP 06/23/20 06/24/20 15:39 05:45 Sodium 139 143 Potassium 4.5 4.2 Chloride 103 109 H Carbon Dioxide 24 18 L BUN 42 H 31 H Creatinine 1.53 H 0.91 Calcium 9.9 9.3 Liver Function 06/23/20 06/24/20 Range/Units 15:39 05:45 Total Bilirubin 0.6 0.5 (0.0-1.0) mg/dL Direct Bilirubin 0.5 0.3 (0.0-0.5) mg/dL AST 807 H 292 H (5-31) U/L ALT 526 H 404 H (0-31) U/L Alkaline Phosphatase 162 H 170 H (39-117) U/L Albumin 4.1 4.1 (3.5-5.0) g/dL Urine 06/23/20 Range/Units 15:51 Urine Color YELLOW Urine Appearance CLEAR Urine pH 6.0 (5.0-8.0) Ur Specific [place] <= 1.005 (1.005-1.025) Urine Protein NEG (NEG-TRACE) MG/DL Urine Glucose (UA) NEG (NEG) MG/DL CT brain WO: no sig pathology Chest XRay: ok Belly CT: no sig pathology Assessment and Plan (1) Encephalopathy acute: Status: Acute Impression: metabolic/toxic encephalopathy with possiblity of complex partial seizure status. She was febrile on admisstion suggesting an infectious etiology. She has a lumbo-peritoneal shunt that should also be considered as source of infection. She is not known to have seizure d/o rec: a: Stone culture b: cover her with antibiotics and antiviral c: LP for meningoencephalitis panel d: EEG. It is important to do even if it is limited. it might help e: Avoid neuroleptics f: PRN benzos but avoid using it as much as possible g: hydration h: DC all non-critical meds i: Check with family for anything unusual like empty bottles to r/o overdose. She was on Mirapex, cymbalta, and amitryptiline from my office for RLS, neuropathic pain, and migraine.
[2020-06-24 11:29] LABS: INTERNATIONAL NORM RATIO 1.1 (0.9-1.1); Prothrombin Time 12.6 SEC (10.8-13.0)
[2020-06-24 11:34] LABS: Ammonia 45 umol/L (13-55)
[2020-06-24] MEDS: Dextrose 5 % and 0.45 % NaCl 1,000 ML 80 ML IVCONT (13:20)
[2020-06-24] MEDS: LORazepam 2 MG/ML VIAL IM ×2 (13:54→14:48)
[2020-06-24 15:19] LABS: Glucose, Whole Blood 114 mg/dL (60-115)
--- NOTE | 2020-06-24 15:32 | ECG_ITS ---
Test Reason : AGITATION AND PAIN Blood Pressure : / mmHG Vent. Rate : 112 BPM Atrial Rate : 112 BPM P-R Int : 116 ms QRS Dur : 088 ms QT Int : 334 ms P-R-T Axes : -18 069 013 degrees QTc Int : 455 ms Sinus tachycardia Nonspecific T wave abnormality Inferior leads Abnormal ECG When compared with ECG of 23-JUN-2020 15:40, T wave inversion more evident in Inferior leads Referred By: Franco Villa Electronically Signed By:JAX ROGERS MD
--- NOTE | 2020-06-24 16:20 | MHC.CM.PN ---
Pt admitted with AMS and unable to provide history/baseline functioning information. CM attempted to contact pts /HCP, Ant Nichole ([phone]). Ant did not answer and his [employer] system was not set up. CM to revisit on 06/25/20
[2020-06-24] MEDS: CEFTRIAXONE SODIUM IV (16:25)
[2020-06-24] MEDS: SODIUM CHLORIDE 0.9% IV (16:25)
[2020-06-24] MEDS: vancomycin HCL 1,000 MG in 0.9 % Sodium Chloride 250 ML 180 MG IV (17:39)
--- NOTE | 2020-06-24 18:52 | HO.PM.IMPN ---
Subjective Subjective Date of Service: 06/24/20 Interval History: seen and examined multiple times today waxing and waning mental status this AM was able to answer questions and obey some basic commands later on became overtly agitated and was not diretable requiring security to be called. had to placed on restraints and also medicated. patient seen within the appropriate time afterwards (1 hour) and assessments completed. patient lost IV in this process and once patient was more calm after multiple rounds of IV ativan -- IV inserted and antibiotics/antivirals were able to be given Review of Systems unreliable due to mental status Physical Exam Vital Signs: Vital Signs: Vital Signs Temp Pulse Resp BP Pulse Ox 06/24/20 16:28 98.4 F 109 H 20 149/69 H 93 06/24/20 16:13 98.7 F 108 H 20 180/67 H 93 06/24/20 15:57 98.7 F 111 H 20 183/73 H 93 06/24/20 15:42 98.4 F 111 H 18 119/57 L 95 06/24/20 15:28 98.1 F 117 H 20 143/94 H 94 06/24/20 15:13 97.9 F 112 H 22 H 116/64 06/24/20 14:58 97.9 F 119 H 22 H 199/95 H 94 06/24/20 11:06 97.9 F 99 18 151/54 H 95 06/24/20 03:48 20 06/24/20 02:00 97.4 F 107 H 20 106/77 96 06/23/20 23:27 98.5 F 87 15 122/67 2 L 06/23/20 22:19 75 14 121/55 L 97 06/23/20 21:18 97 20 107/87 99 06/23/20 20:08 97.9 F 65 12 113/57 L 99 Body Mass Index 43.0 Gen - initially calm and cooperative - knew she was in the hospital, but ultimately extremly agitated CVS - S1S2, slight tachy with agitation Lungs - no respiratory distress Abd - soft and non-tender Neuro - in the AM, able to obey commands (lifted bilateral arms when asked to due so and bilateral LE as well). at this time, making eye contact and even talking. later with restlessness (see neuro notes for full neuro exam) Objective Data Current Medications Generic Name Dose Route Start Last Admin Trade Name Allison PRN Reason Stop Dose Admin Dextrose/Sodium Chloride 1,000 mls @ 80 mls/hr 06/24/20 12:15 06/24/20 13:20 D51/2ns IVCONT 80 mls/hr .[id number] FRANCHESKA Administration Vancomycin HCl 1,000 mg/ 270 mls @ 180 mls/hr 06/24/20 15:00 06/24/20 17:39 Sodium Chloride IV 180 mls/hr Q12H FRANCHESKA Administration Acyclovir Sodium 700 mg/ 114 mls @ 109.997 mls/hr 06/24/20 15:00 Dextrose IV Q8H FRANCHESKA Ceftriaxone Sodium 2 gm/ 100 mls @ 100 mls/hr 06/24/20 16:00 06/24/20 17:39 Sodium Chloride IV Infused Q12H [facility] Infusion Insulin Human Lispro 0 unit 06/24/20 16:15 06/24/20 17:38 Insulin Lispro 100 Unit/Ml 3 Ml Vial SUBCUT Not Given Q6H [facility] Protocol Pharmacy Consult 1 each 06/23/20 15:17 Consult Rx Perform Med Rec MISCELLANE ONCE PRN Consult order Pharmacy Consult 1 each 06/23/20 17:51 Consult Rx Perform Med Rec MISCELLANE ONCE PRN Consult order Pharmacy Consult 1 each 06/24/20 13:14 Consult Rx Vancomycin Dosing MISCELLANE DAILY PRN Consult order Sodium Chloride 3 ml 06/24/20 01:53 06/24/20 16:25 0.9 % Sodium Chloride Flush 3 Ml Syringe IVFLUSH 3 ml QSHIFT [facility] Administration Labs CBC & Chem 7: 06/24/20 05:45 06/24/20 05:45 Microbiology Microbiology Results: Microbiology 06/23/20 15:51 Blood - Venous Blood Culture - Preliminary No growth after 24 hours. 06/23/20 15:40 Blood - Venous Blood Culture - Preliminary No growth after 24 hours. 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 With patients history of UTI and recent treatment for UTI -- despite an umipressive UA, she was admitted for encephalopathy secondary to UTI. SHe was admitted for further work up. 1. Acute Toxic/Metabolic Enceaphalopathy unlikely UTI, but on rocephin which will cover -- follow up culutres LP to fule out meningitis/encephalitis -- IR did not feel comfortable as the patient had recevied subcut. heparin this AM. Will plan for LP tomorrow. Started on vancomcin/rocephin/acyclovir. D/W ID (Via [facility]) and Neuro follow culture data hold ALL po meds for now 2. Acute delirium and agitation due to atove required IV ativan and restraints earlier today. Now off restraints and more calm. Continue with close monitoring. 3. GARY due to above improved with hydration 4. Transaminitis downtrending cause unclear, ultrasound limited but pt post cck -- no stones noted. ammonia / INR normal 5. DM stop lantus use ISS POC qidac IVF while NPO d/w the earlier today after multiple attempts to reach him -- informed him of latest clinical status. he rpeorts he will be in to see her tomorrow Full Code DVT pptx: patient is high risk, but cannot have pharmacological due to planned procedure. Additional -- mech device relatively contraindicated as she is significantly agitated and additional stimuli I suspect will worsen this. Will reiniate one or the other has her condition improves / post procedure.
--- NOTE | 2020-06-24 19:28 | PC.NURSE ---
Late entry: 1325 pt became aggressive and threatening. Dr. Villa made aware of the situation. 2 mg IV Ativan ordered but pt lost IV access. 2 mg IM Ativan ordered and security was called to help secure the pt while administering the medication. Pt was thrashing in bed, very uncooperative and disoriented. 1354 another 2 mg of IM Ativan given per MD order. Pt placed in 4 point restraints at 1448 with MD order. Q15 min. checks/VS obtained and documented. Pt restraints were released slowly over the period of one hour and by 1600 pt was no longer in restraints. Pt sedated, calm. IV access obtained and pt receiving IV abx. Pt has been kept NPO and will be overnight for LP tomorrow. Pt VSS, remaining calm at 1900. Report given off to next RN.
[2020-06-24] MEDS: LORazepam 2 MG/ML VIAL 1 MG IVPUSH ×2 (20:42→20:43)
[2020-06-24] MEDS: diphenhydrAMINE HCL 50 MG/ML VIAL 25 MG IVPUSH (20:44)
--- NOTE | 2020-06-24 23:51 | PM.EVENT ---
Event Note Event Note: At present patient is very agitated which is not improving after 2 mg of ativan and hard restraints. Neurologist addictions counselor assistant Dr Melendez contacted and the recommendations are the followin- Valproic acid 1 g loading dose STAT 2- Valproic acid 500 mg BID starting tomorrow 3- If agitation continues then ativan can be given in combination of possible haldol but if agitation is not able to be controlled then ICU is to be called for possible intubation for safety and sedation.
[2020-06-25] VITALS (20 sets, daily range): BP systolic 84–193; BP diastolic 43–100; PULSE 60–114; RESP 14–27; TEMP 35.9–37.1; O2SAT 94–100
[2020-06-25] MEDS: Valproic Acid (as Sodium Salt) 1,000 MG in Dextrose 5 % 50 ML 60 MG IV (01:35)
[2020-06-25] MEDS: 0.9 % Sodium Chloride Flush 3 ML SYRINGE IVFLUSH ×3 (01:36→15:40)
--- NOTE | 2020-06-25 02:17 | PC.NURSE ---
Assumed care at 1900; Upon assessment, Pt thrashing in bed, aggressive, uncooperative, disoriented x4, speech is garbled. security called and at bedside to assist. Dr. Cason notified. STAT Ativan 1 mg IV ordered/given ~1950, ~2019, and Benadryl 25 mg IV given ~2019 per order. Pt behavior continued to escalate, pt hitting sitter and security, yelling, very restless. Pt then placed in 4 point restraint at 2030 per MD order. Q15min. checks/VS obtained and documented. Pt restraints were released slowly, ~2230 L leg restraint removed, 2300 R leg removed. Pt easily agitated with any care, attempted to do VS but pt was not cooperative. ~0020, L arm and R arm restraint removed. Pt now alert/oriented to name and , conversing with staff, cooperating with care. IV access obtained, 22 R hand. Neurologist updated by Dr. Cason. Valproate sodium IV ordered/given. Pt VS stable, calm, pt kept NPO for LP in the morning. Complete bath given, multiple bruises noted to RLQ, bilateral hands/wrist area, redness to lower legs. Sitter/tele cam remains at bedside for safety. Seizure prec in place. Will continue to monitor.
[2020-06-25] MEDS: vancomycin HCL 1,000 MG in 0.9 % Sodium Chloride 250 ML 180 MG IV (03:53)
[2020-06-25] MEDS: Acetaminophen 325 MG TABLET 650 MG PO (03:55)
[2020-06-25] MEDS: SODIUM CHLORIDE 0.9% IV (05:08)
[2020-06-25] MEDS: CEFTRIAXONE SODIUM IV (05:08)
[2020-06-25 06:16] LABS: MANUAL DIFF FLAG NO
[2020-06-25 06:31] LABS: Basophils Percent Auto 0.3 % (0-2); Eosinophils Absolute Auto 0.2 X10*3/uL (0.0-0.4); Eosinophils Percent Auto 1.8 % (0-4); Hematocrit 34.4 % (37-47); Hemoglobin 11.6 g/dl (12.0-16.0); Imm Gran Abs Auto 0.06 X10*3/uL (0.00-0.03); Imm Gran Pct Auto 0.5 % (0.0-0.4); Lymphocytes Percent Auto 25.4 % (20-40); Mean Corpuscular HGB Conc 33.7 g/dl (31.0-35.0); Mean Corpuscular Volume 94.8 fL (80-98); Mean Platelet Volume 9.4 fL (9.4-12.3); Monocytes Absolute Auto 1.1 X10*3/uL (0.1-1.2); Monocytes Percent Auto 9.6 % (2-11); Neutrophils Absolute Auto 7.3 X10*3/uL (2.0-8.3); Neutrophils Percent Auto 62.4 % (45-73); Platelet Count 186 X10*3/uL (160-400); Red Blood Count 3.63 X10*6/uL (4.20-5.50); Red Cell Distribution Width 13.6 % (11.0-16.0); White Blood Count 11.7 X10*3/uL (4.8-10.8)
[2020-06-25 06:45] LABS: INTERNATIONAL NORM RATIO 1.1 (0.9-1.1); Prothrombin Time 12.8 SEC (10.8-13.0)
[2020-06-25 06:58] LABS: Alanine Aminotransferase 200 U/L (0-31); Albumin Level 3.7 g/dL (3.5-5.0); Alkaline Phosphatase 112 U/L (39-117); Anion Gap 13 (12-20); Aspartate Amino Transferase 104 U/L (5-31); Bilirubin Direct 0.2 mg/dL (0.0-0.5); Bilirubin Total 0.4 mg/dL (0.0-1.0); Blood Urea Nitrogen 18 mg/dL (9-16); Carbon Dioxide 24 mmol/L (22-29); Chloride 107 mmol/L (96-108); Creatinine Clr Calc Pharmacy 92.3; Estimated Glomerular Filt Rate > 60; Glucose Random 151 mg/dL (60-115); Potassium 3.4 mmol/l (3.3-5.1); Sodium 141 mmol/L (135-145)
--- NOTE | 2020-06-25 07:00 | MHC.PIE ---
P: PATIENT BECAME MORE COMBATIVE. NOT REDIRECTABLE. TRYING TO GET OUT OF BED, STATING I WANT TO GO HOME . NO PRN MEDICATIONS AVAILABLE. I: NOTIFIED DOCTOR LISSETH VILLEGAS, WITH NO RESPONSE. TIGERCONNECTED NURSING CUTTING TORCH OPERATOR, WITH NURSING CUTTING TORCH OPERATOR AT BEDSIDE CODE ASSIST CALLED. MD CALLED. DOCTOR LISSETH VILLEGAS ORDERED 2MG IM ATIVAN, GIVEN TO PATIENT WITH NO IMPROVEMENT IN BEHAVIOR. CHANGE OF SHIFT FOR MDS DOCTOR MERCER TO PATIENTS BEDSIDE. PLAN TO CALL ICU AND ORDERED 5MG HALDOL IM. SECURITY PLACED PATIENT IN FOUR POINT RESTRAINTS WITH MD ORDER, FOR PATIENT AND STAFF'S SAFETY. PATIENT ACCEPTED TO ICU. TRANSFER TO ICU BY NURSING CUTTING TORCH OPERATOR. E: PATIENT AND STAFF SAFETY MAINTAINED. PATIENT TO BE MONITORED IN ICU.
[2020-06-25] MEDS: LORazepam 2 MG/ML VIAL IM (07:05)
[2020-06-25 07:10] LABS: Calcium 8.2 mg/dL (8.4-10.2)
[2020-06-25] MEDS: Haloperidol Lactate 5 MG/ML VIAL IM (07:10)
[2020-06-25 07:27] LABS: Glucose, Whole Blood 141 mg/dL (60-115)
[2020-06-25 07:27] LABS: Glucose, Whole Blood 142 mg/dL (60-115)
--- NOTE | 2020-06-25 07:43 | PM.EVENT ---
Event Note Event Note: Called by the RN around 705 AM that the patient was becoming comabtive and attempting to hit staff. Overnight, agitated and required sedation and restraints again (see note from overnight, re: discussion with neurologist). This morning, ativan ordered and patient seen shortly bedside. Ativan with minimal effect at this time, still combative. Security bedside. Patient talking but confused and not able to be redirected. Next, IM haldol ordered and patient placed in 4 point restraints for safety. Call placed to ICU and sign out given -- will need ICU level care at this time. Pt accepted for trasnfer to ICU. Continue with antibiotics / antivirals. Plan for LP which at this point appears may need to happen with sedation.
--- NOTE | 2020-06-25 07:51 | PC.NURSE ---
TRANSFERED TO ICU FROM C RESTRAINTS REMOVED, SLIGHTLY REDDENED ANKLES NOTED PRECEDEX DRIP STARTED 1.5MCG/KG/HR STARTED ON ARRIVAL PRESENTLY CALM ALBEIT CONFUSED WANTING TO GO HOME AND SPEAK WITH HER Initialized on 06/25/20 07:47 - END OF NOTE
--- NOTE | 2020-06-25 07:57 | PC.NURSE ---
PRECEDEX DECREASED TO 1.3MCG/KG/HR 32.4 ML/HR
[2020-06-25 10:01] LABS: Glucose, Whole Blood 226 mg/dL (60-115)
[2020-06-25] MEDS: Ketamine HCl 500 MG/5 ML VIAL 75 MG IV (10:25)
--- NOTE | 2020-06-25 10:33 | EEG_ITS ---
The waking background activity consists of a diffuse moderate to high voltage 1 to 2 hertz delta, occasionally getting up to 4 Hz. There are 1 or 2 instances of isolated sharp and slow spike from the left hemisphere. Photic stimulation is without activation. IMPRESSION: This is an abnormal EEG due to moderately severe diffuse background slowing consistent with a diffuse encephalopathic process. A single paroxysmal discharges seen from the left hemisphere, which is suggestive of a seizure potential in the left hemisphere. Clinical correlation is suggested. MD HARJEET Barboza/SAMIA / [id number]
--- NOTE | 2020-06-25 10:58 | FL_ITS ---
EXAMINATION: FLUOROSCOPY-GUIDED LUMBAR PUNCTURE CLINICAL INFORMATION: Confusion. Headache. Evaluate for meningitis. COMPARISON: None TECHNIQUE: Following explaining procedure, benefits and risk, a written consent was obtained by Dr. anupam bustillo in the ICU from the patient's family. Patient was placed in left lateral decubitus view and the low back area was cleaned and draped in usual sterile manner. 1% lidocaine was injected at puncture site. A 20-gauge needle was then inserted from the skin into the L1-L2 the thecal sac on the lateral fluoroscopy. After removing the stylet and observing fluid, menorrhagia was attached and CSF pressure was obtained. Subsequently fluid was collected in 4 test tubes. Postprocedure stylet was reintroduced and needle withdrawn. Simple band aid applied post procedure at the puncture site. Patient tolerated procedure extremely well. Conscious sedation was provided by Dr. CEJA from ICU. FINDINGS: On lateral fluoroscopy the lumbar lordosis is maintained. The vertebral heights, alignment and disc heights are normal. Under fluoroscopy a 20-gauge 6 inch needle was inserted from the skin intrathecally at the L1-L2 disc level. After observing fluid return opening CSF pressure was obtained and measured 25 cm of water. Approximately 13.5 mL of clear CSF fluid was collected in 4 test tubes and sent to lab. FLUOROSCOPY TIME: 1.0 minute DOSE AREA PRODUCT: 19.29 uGy-m2 (microgray-meter squared) FL/FL guided lumbar puncture LP IMPRESSION: Successful fluoroscopy-guided lumbar puncture performed. Conscious sedation was provided by Dr. CEJA from ICU.
--- NOTE | 2020-06-25 11:54 | PC.NURSE ---
pt taken to ir for lp see note from that dept
[2020-06-25 12:32] LABS: Glucose CSF 93 mg/dL; Total Protein CSF 45.7 mg/dL (15-45)
[2020-06-25 12:50] LABS: Appearance CSF CLEAR
[2020-06-25 12:51] LABS: CSF Tube # 4; Color CSF COLORLESS; Lymphocytes CSF 100 %; Red Blood Cell CSF 2 MM*3; White Blood Cell CSF 2 MM*3
[2020-06-25 12:52] LABS: Glucose, Whole Blood 234 mg/dL (60-115)
[2020-06-25] MEDS: Insulin Lispro 100 UNIT/ML 3 ML VIAL SUBCUT (12:52)
[2020-06-25 13:10] LABS: Appearance CSF CLEAR; CSF Tube # 1
--- NOTE | 2020-06-25 13:29 | P.PNCC_ITS ---
Subjective Subjective Date of Service: 06/25/20 Interval History: Mrs. Nichole was transferred down to the ICU this morning bec of uncontrollable combative agitation. The patient is a 64 y/o female with PMHx of obesity, severe arthritis, idiopathic intracranial hypertension (pseudotumor cerebri) status post lumboperitoneal shunt (there is NO h/o brain tumor), diabetes mellitus, hypertension, diastolic heart failure, obstructive sleep apnea, depression, restless legs syndrome, recurrent urinary tract infections. The patient presented from home on Jun 23 due to AMS. The patient was unable to provide any history. Per history provided by family to the ED, the patient was noted by family members to be lethargic and not like herself . There was no convulsion or trauma and according to the , she has not taken any new medication. Reportedly, the patient has had multiple episodes of UTI before with a similar presentation of AMS due to metabolic encephalopathy. Last admission in November,, Ucx positive for E coli which was treated with Rocephin successfully. The patient's denied that she was taking any antibiotics recently, but she has in the past. The patient lives with her . She is reportedly functionally independent. There is no history of s moking or drug use. In the ED, the patient was afebrile, she was non tachycardic, blood pressure was initially around 100/50, she was non tachypneic, and sat was mid to high 90s on room air. On exam, the patient was reportedly awake, but not interactive to verbal or painful stimuli. She was reportedly disoriented. General physical exam was otherwise unremarkable. Labs in the ED were notable for normal white count. Chemistries were notable for a BUN and creatinine of 42/1.5 (baseline 24/0.8). LFTs were notable for a a normal total bili, with AST/ALT 807/526. Albumin was 4.1. TSH was normal. Lactate was normal. A venous blood gas showed pH 7.32/pCO2 51. U/A was negative. No culture was sent. Abdominal ultrasound was notable for lack of a gallbladder, with mild dilatation of intrahepatic bile ducts and prominent common bile duct. Chest x-ray showed no acute disease. Head CT s howed no acute intracranial pathology. Toxicology was entirely negative. COVID PCR was negative. The patient was admitted for possible sepsis secondary to UTI, with secondary metabolic encephalopathy. She was started on Rocephin. Since then, the patient has had a waxing waning mental status. Sometimes able to answer questions and obey some basic commands, later overtly agitated and not directable requiring security to be called and requiring restraints and medication. The patient was seen yest by Dr. Melendez who recommended an LP, with antibiotics and acyclovir until results came back. This morning the patient had her third security alert called and she was uncontrollable on the floor, she was therefore transferred to ICU. She was started on Precedex on arrival, which substantially controlled her combativeness. On exam, she was noninteractive to verbal commands and still combative to stimulation. See Vital Signs below. Pre-Precedex BP was in the 170-190 range, after the Precedex dropped into the 90s, with HR dropped into 60s. And she was requiring the full dose of Precedex, 1.5 ug. RR about 22, nonlabored, clear airway. SpO2 96% on room air. PERRL, about 3-4mm. No JVD at 30?. Chest clear to auscultation with normal expiratory phase. Regular rate and rhythm, normal-sounding S1 and S2, with no murmur or gallops. The abdomen is obese and benign. She has no peripheral edema. LABORATORY DATA: As below. Notably, white count on admission was 7.9, and then went up to 12. BUN/creatinine are down to 18/0.6. AST/ALT are down to 104/200. Albumin is 3.7 MICROBIOLOGY: Blood cultures drawn on June 23 are negative. ICU COURSE: We attempted a lumbar puncture in the ICU today, but were unable to accomplish the procedure because of very unfavorable anatomy, combined with inability to sedate her adequately. Therefore I took her over to IR and assisted Dr. Peña in doing the lumbar puncture. The fluid was clear, with opening pressure of about 25 cm. The fluid was sent to the lab for analysis. Following that the patient was returned to the ICU where she underwent EEG under Precedex sedation. The main finding on the EEG, according to Dr. Schulte, was generalized slowing, consistent with severe encephalopathy. There was one spike which he discounted. The findings are consistent with toxic metabolic encephalopathy. On review of the patient's medications, the patient was taking the following YARN WEIGHER acting medications at home: -amitriptyline -baclofen 10 mg tid. -gabapentin 300 mg bid. -promethazine 25 mg po q4-6 hours prn. -Seroquel 50 mg qhs. The patient?s symptoms are entirely c/w baclofen withdrawal or baclofen toxicity. I called poison control with the question whether the patient could be baclofen toxic or be suffering from baclofen withdrawal. Given that she has not had any of the above medications in the twodays that she?s been in the hospital, it was my feeling that the patient would more likely be suffering from baclofen withdrawal rather than toxicity. The senior manufacturing technician at [facility] suggested it could be either baclofen withdrawal or gabapentin withdrawal. CSF results: The fluid was clear. WBC 2, are C2. Lymphocytes are 100%. CSF glucose 93, CSF total protein 45. To tub Meningitis/encephalitis panel pe nding. ADDENDUM: I spoke with the patient?s this evening. He told me that she puts her pills out in a weekly case, marked for which pills to take each day. She missed her pills for at least 2 days before being admitted to the hospital. He also told me that this altered mental status that she has been having has been going on for months. IMPRESSION: 1. Acute toxic/metabolic enceaphalopathy. In view of all the above, it?s a good bet that the cause is baclofen withdrawal. Poison Control advised giving her baclofen 10 mg and gabapentin 100 mg, and seeing what happened. That is what we shall do. I am very doubtful that she has any kind of infection. I?m discontinuing her antibiotics, and I?ll DC the acyclovir when the meningitis/encephalitis panel comes back. 2. GARY. Due to dehydration. The patient's told me that she hadn?t eaten or drank anything for a couple a days prior to admission to the hospital. 3. Transaminitis. Unexplained (assuming that it was not 2? hypovolemia). Regardless, it?s resolving. 4. DM. On SS insulin. ADDENDUM at 20:00: We turned the Precedex off, and the patient is 80% improved. She has com, alert, and mostly appropriate. She is no longer delirious. We gave her the first doses of baclofen and gabapentin. We we?ll see how she does from here. Critical care time (including multiple minutes at the patient's bedside, through multiple visits; multiple conversations with the patient's ; multiple conversations with Dr. Villa; multiple conversations with Dr. Peña and assisting in IR; and extended chart review; excluding procedures): 2.5+ hours. Physical Exam Vital Signs: Vital Signs: Vital Signs Temp Pulse Resp BP Pulse Ox 06/25/20 13:00 60 90/43 L 94 06/25/20 11:03 62 22 H 99/56 L 96 06/25/20 10:00 63 21 H 99/54 L 96 06/25/20 09:00 98.4 F 64 27 H 99/46 L 94 06/25/20 08:00 98.7 F 97 19 113/57 L 95 06/25/20 07:54 83 122/74 94 06/25/20 07:16 96.7 F L 111 H 19 193/100 H 100 06/25/20 03:17 98 F 104 H 20 179/84 H 94 06/25/20 00:00 98.8 F 114 H 22 H 172/68 H 97 06/24/20 23:42 22 H 97 06/24/20 23:30 108 H 22 H 95 06/24/20 22:55 114 H 22 H 94 06/24/20 22:43 114 H 22 H 97 06/24/20 21:30 126 H 95 06/24/20 21:20 111 H 22 H 159/59 H 95 06/24/20 21:06 99 F 115 H 22 H 98 06/24/20 20:57 99 F 67 22 H 192/91 H 100 06/24/20 20:30 74 L 06/24/20 16:28 98.4 F 109 H 20 149/69 H 93 06/24/20 16:13 98.7 F 108 H 20 180/67 H 93 06/24/20 15:57 98.7 F 111 H 20 183/73 H 93 06/24/20 15:42 98.4 F 111 H 18 119/57 L 95 06/24/20 15:28 98.1 F 117 H 20 143/94 H 94 06/24/20 15:13 97.9 F 112 H 22 H 116/64 06/24/20 14:58 97.9 F 119 H 22 H 199/95 H 94 Body Mass Index 43.0 Objective Data Labs CBC & Chem 7: 06/25/20 05:34 06/25/20 05:34 Labs: Laboratory Results - last 24 hr 06/24/20 06/24/20 06/25/20 15:16 22:03 04:33 WBC RBC Hgb Hct MCV MCH MCHC RDW Plt Count MPV Immature Gran % (Auto) Neut % (Auto) Lymph % (Auto) [place] % (Auto) Eos % (Auto) Baso % (Auto) Lymph # (Auto) [place] # (Auto) Eos # (Auto) Baso # (Auto) Abs Immat Gran (auto) Absolute Neuts (auto) Absolute Nucleated RBC Nucleated RBC % (auto) PT INR Sodium Potassium Chloride Carbon Dioxide Anion Gap BUN Creatinine Estim Creat Clear Calc Estimated GFR POC Glucose 114 141 H 142 H Random Glucose Calcium Total Bilirubin Direct Bilirubin AST ALT Alkaline Phosphatase Total Protein Albumin CSF Tube Number CSF Volume CSF Appearance CSF Color CSF WBC CSF RBC CSF Lymphocytes CSF Glucose CSF Total Protein 06/25/20 06/25/20 06/25/20 05:34 05:34 05:34 WBC 11.7 H RBC 3.63 L Hgb 11.6 L Hct 34.4 L MCV 94.8 MCH 32.0 MCHC 33.7 RDW 13.6 Plt Count 186 MPV 9.4 Immature Gran % (Auto) 0.5 H Neut % (Auto) 62.4 Lymph % (Auto) 25.4 [place] % (Auto) 9.6 Eos % (Auto) 1.8 Baso % (Auto) 0.3 Lymph # (Auto) 3.0 [place] # (Auto) 1.1 Eos # (Auto) 0.2 Baso # (Auto) 0.0 Abs Immat Gran (auto) 0.06 H Absolute Neuts (auto) 7.3 Absolute Nucleated RBC 0.000 Nucleated RBC % (auto) 0.0 PT 12.8 INR 1.1 Sodium 141 Potassium 3.4 Chloride 107 Carbon Dioxide 24 Anion Gap 13 BUN 18 H Creatinine 0.67 Estim Creat Clear Calc 92.3 Estimated GFR > 60 POC Glucose Random Glucose 151 H Calcium 8.2 L Total Bilirubin 0.4 Direct Bilirubin 0.2 AST 104 H ALT 200 H Alkaline Phosphatase 112 D Total Protein 6.0 L Albumin 3.7 CSF Tube Number CSF Volume CSF Appearance CSF Color CSF WBC CSF RBC CSF Lymphocytes CSF Glucose CSF Total Protein 10/23/20 10/23/20 10/23/20 09:58 11:32 11:32 WBC RBC Hgb Hct MCV MCH MCHC RDW Plt Count MPV Immature Gran % (Auto) Neut % (Auto) Lymph % (Auto) [place] % (Auto) Eos % (Auto) Baso % (Auto) Lymph # (Auto) [place] # (Auto) Eos # (Auto) Baso # (Auto) Abs Immat Gran (auto) Absolute Neuts (auto) Absolute Nucleated RBC Nucleated RBC % (auto) PT INR Sodium Potassium Chloride Carbon Dioxide Anion Gap BUN Creatinine Estim Creat Clear Calc Estimated GFR POC Glucose 226 H Random Glucose Calcium Total Bilirubin Direct Bilirubin AST ALT Alkaline Phosphatase Total Protein Albumin CSF Tube Number 1 4 CSF Volume 3.0 CSF Appearance CLEAR CLEAR CSF Color COLORLESS CSF WBC 2 CSF RBC 2 CSF Lymphocytes 100 CSF Glucose 93 CSF Total Protein 45.7 H 06/25/20 12:48 WBC RBC Hgb Hct MCV MCH MCHC RDW Plt Count MPV Immature Gran % (Auto) Neut % (Auto) Lymph % (Auto) [place] % (Auto) Eos % (Auto) Baso % (Auto) Lymph # (Auto) [place] # (Auto) Eos # (Auto) Baso # (Auto) Abs Immat Gran (auto) Absolute Neuts (auto) Absolute Nucleated RBC Nucleated RBC % (auto) PT INR Sodium Potassium Chloride Carbon Dioxide Anion Gap BUN Creatinine Estim Creat Clear Calc Estimated GFR POC Glucose 234 H Random Glucose Calcium Total Bilirubin Direct Bilirubin AST ALT Alkaline Phosphatase Total Protein Albumin CSF Tube Number CSF Volume CSF Appearance CSF Color CSF WBC CSF RBC CSF Lymphocytes CSF Glucose CSF Total Protein Microbiology Microbiology Results: Microbiology 06/25/20 11:32 Cerebrospinal Fluid CSF Examination - Final 06/25/20 11:32 Cerebrospinal Fluid Gross Specimen Examination - Final 06/23/20 15:51 Blood - Venous Blood Culture - Preliminary No growth after 24 hours. 06/23/20 15:40 Blood - Venous Blood Culture - Preliminary No growth after 24 hours. Progress Note: A&P Time Spent With Patient Time: Total time spent is greater than 50% in coordination of care (as documented) at patient's floor/unit and/or counseling patient: Total time spent with greater than 50% in coordination of care (as documented) at patient's floor/unit and/or counseling patient:: 0 Critical Care Time Critical Care Time (minutes): 150
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
[2020-06-25] MEDS: Lactated Ringers 1,000 ML 50 ML IVCONT (15:10)
--- NOTE | 2020-06-25 15:15 | PC.NURSE ---
straight cathed for PPROXIMATELY 400ML URINE PT HAD NOT VOIDED THIS SHIFT, AND BLADDER SCAN REVEALED 597ML PRECEDEX PRESENTLY AT 1MCG/KG/MIN
[2020-06-25] MEDS: Gabapentin 100 MG CAPSULE PO (17:04)
[2020-06-25] MEDS: Baclofen 10 MG TABLET PO (18:45)
[2020-06-25 18:49] LABS: Glucose, Whole Blood 121 mg/dL (60-115)
[2020-06-26] VITALS (10 sets, daily range): BP systolic 121–193; BP diastolic 52–81; PULSE 85–102; RESP 18–20; TEMP 36.1–36.8; O2SAT 96–98
[2020-06-26 00:34] LABS: Glucose, Whole Blood 102 mg/dL (60-115)
[2020-06-26] MEDS: 0.9 % Sodium Chloride Flush 3 ML SYRINGE IVFLUSH ×2 (01:03→17:52)
[2020-06-26 03:40] LABS: Vancomycin Trough 8.2 mcg/mL (10.0-20.0)
--- NOTE | 2020-06-26 03:49 | PC.NURSE ---
Patient alert and oriented, restless, sleepless. Polite, unable to sleep. Patient states she has restless leg syndrome. Sitter at bedside. Patient able to communicate her needs and follows directions.
[2020-06-26] MEDS: Lactated Ringers 1,000 ML 50 ML IVCONT (07:53)
[2020-06-26 08:10] LABS: Glucose, Whole Blood 126 mg/dL (60-115)
[2020-06-26 09:10] LABS: MANUAL DIFF FLAG NO
[2020-06-26 09:16] LABS: Basophils Percent Auto 0.3 % (0-2); Eosinophils Absolute Auto 0.2 X10*3/uL (0.0-0.4); Eosinophils Percent Auto 1.8 % (0-4); Hematocrit 38.2 % (37-47); Hemoglobin 12.8 g/dl (12.0-16.0); Imm Gran Abs Auto 0.04 X10*3/uL (0.00-0.03); Imm Gran Pct Auto 0.3 % (0.0-0.4); Lymphocytes Absolute Auto 2.7 X10*3/uL (1.2-4.9); Lymphocytes Percent Auto 20.8 % (20-40); Mean Corpuscular HGB Conc 33.5 g/dl (31.0-35.0); Mean Corpuscular Hemoglobin 31.4 pg (27.0-33.0); Mean Corpuscular Volume 93.6 fL (80-98); Mean Platelet Volume 9.6 fL (9.4-12.3); Monocytes Absolute Auto 1.3 X10*3/uL (0.1-1.2); Monocytes Percent Auto 9.8 % (2-11); Neutrophils Absolute Auto 8.5 X10*3/uL (2.0-8.3); Platelet Count 211 X10*3/uL (160-400); Red Blood Count 4.08 X10*6/uL (4.20-5.50); Red Cell Distribution Width 13.6 % (11.0-16.0); White Blood Count 12.7 X10*3/uL (4.8-10.8)
[2020-06-26 09:52] LABS: Anion Gap 19 (12-20); Blood Urea Nitrogen 17 mg/dL (9-16); Calcium 8.5 mg/dL (8.4-10.2); Carbon Dioxide 19 mmol/L (22-29); Chloride 105 mmol/L (96-108); Creatinine Clr Calc Pharmacy 66.5; Estimated Glomerular Filt Rate > 60; Glucose Random 125 mg/dL (60-115); Potassium 3.3 mmol/l (3.3-5.1); Sodium 140 mmol/L (135-145)
--- NOTE | 2020-06-26 11:02 | P.PNIM_ITS ---
Subjective Subjective Interval History: seen and examined this AM appears to be back at her baseline aaox3 though does not remember last few days. denies taking any extra meds. denies missing any meds, although apparently reported that she did miss 2 days Physical Exam Vital Signs: Vital Signs: Vital Signs Temp Pulse Resp BP Pulse Ox 06/26/20 10:53 97.0 F 100 18 121/64 98 06/26/20 07:20 97.0 F 96 20 148/62 H 97 06/26/20 03:56 97.7 F 101 H 20 140/52 H 97 06/26/20 03:00 18 06/26/20 02:00 18 06/26/20 01:50 102 H 122/77 06/26/20 00:00 18 06/25/20 23:38 97.6 F 102 H 20 183/83 H 97 06/25/20 22:00 102 H 17 154/88 H 98 06/25/20 21:00 104 H 14 155/80 H 96 06/25/20 20:09 98.6 F 06/25/20 19:59 72 26 H 150/69 H 96 06/25/20 19:00 78 18 132/54 L 97 06/25/20 18:00 74 14 107/58 L 06/25/20 16:56 63 22 H 107/58 L 06/25/20 16:00 97.7 F 63 25 H 124/64 96 06/25/20 15:00 75 18 84/49 L 06/25/20 13:54 62 22 H 97/50 L 06/25/20 13:00 60 90/43 L 94 06/25/20 11:03 62 22 H 99/56 L 96 Body Mass Index 43.0 Gen - calm and cooperative, having her usual RLS movmenets CVS - RRR Lungs - no respiratory distress Abd - soft and non-tender Neuro - AAOx3; no focal deficits Objective Data Current Medications Generic Name Dose Route Start Last Admin Trade Name Freq PRN Reason Stop Dose Admin Insulin Human Lispro 0 unit 06/26/20 11:30 Insulin Lispro 100 Unit/Ml 3 Ml Vial SUBCUT QIDACHS [facility] Protocol Omeprazole 20 mg 06/26/20 16:30 Omeprazole 20 Mg Capsule.Dr FLYNN BID@[id number] [facility] Sodium Chloride 3 ml 06/24/20 01:53 06/26/20 07:58 0.9 % Sodium Chloride Flush 3 Ml Syringe IVFLUSH Not Given QSHIFT FRANCHESKA Sucralfate 1 gm 06/26/20 11:30 Sucralfate 1 Gm/10 Ml Oral.Susp PO QIDACHS FRANCHESKA Labs CBC & Chem 7: 06/26/20 08:17 06/26/20 08:17 Microbiology Microbiology Results: Microbiology 06/25/20 11:32 Cerebrospinal Fluid Gram Stain - Final 06/25/20 11:32 Cerebrospinal Fluid CSF Examination - Final 06/25/20 11:32 Cerebrospinal Fluid Gross Specimen Examination - Final 06/25/20 11:32 Cerebrospinal Fluid CSF Culture - Preliminary No growth after 1 day 06/23/20 15:51 Blood - Venous Blood Culture - Preliminary No growth after 48 hours. 06/23/20 15:40 Blood - Venous Blood Culture - Preliminary No growth after 48 hours. Assessment and Plan (1) Encephalopathy acute: Status: Acute Assessment and Plan: This is a 64 yo F with a history of SHOPPER shunt secondary to idiopathic intracrani al hypertension, Restless leg syndrome, DM, recurrent UTIs who presented with alterted mental status. With patients history of UTI and recent treatment for UTI -- despite an umipressive UA, she was admitted for encephalopathy secondary to UTI. SHe was admitted for further work up. 1. Acute Toxic/Metabolic Enceaphalopathy resolved no infectious foci idientified including meningitis antibiotics and antivirals d/c;ed discussed with Dr. Melendez today (who knows the patient from his clinic) -- will stop any neuro/psych meds for now. He will see her in his clinic in 1 week. Monitor today and if stable, anticipate discharge tomorrow 2. Acute delirium and agitation resolved calm and cooperative 3. GARY resolved with hydration 4. Transaminitis downtrending no cause identified 5. DM start diet ISS, POC -- QIDAC Add lantus as diet improves Full Code DVT pptx -- heparin dispo: anticipate home tomorrow if remains stable for 24 hours out of the ICU
[2020-06-26 11:16] LABS: Glucose, Whole Blood 278 mg/dL (60-115)
[2020-06-26] MEDS: Insulin Lispro 100 UNIT/ML 3 ML VIAL SUBCUT ×3 (11:20→22:11)
[2020-06-26 12:02] LABS: Alanine Aminotransferase 152 U/L (0-31); Alkaline Phosphatase 109 U/L (39-117); Aspartate Amino Transferase 63 U/L (5-31); Bilirubin Direct 0.3 mg/dL (0.0-0.5); Bilirubin Total 0.7 mg/dL (0.0-1.0); Total Protein 6.7 g/dL (6.5-8.0)
--- NOTE | 2020-06-26 13:56 | MHC.CM.PN ---
CM AGAIN TRIED TO CONTACT PTS . CALL WAS SENT TO HOWEVER PTS MAILBOX HAS NOT BEEN SET UP TO RECEIVE MESSAGES. SUPERVISORY LIFEGUARD COMPLETED USING PTS MEDICAL RECORDS. PT LIVES AT HOME WITH HER AND HAS NO IN HOME SERVICES PT HAS HAD [facility] IN THE PAST HOWEVER THEY DISCONTINUED SERVICES IN FEBRUARY OF 2020. DISCHARGE PLAN STILL TBD PENDING PTS PRESENTATION AT TIME OF DC HOME VS HOME WITH [facility] TO [facility]
[2020-06-26 17:11] LABS: Glucose, Whole Blood 189 mg/dL (60-115)
[2020-06-26] MEDS: Omeprazole 20 MG CAPSULE.DR PO (17:51)
[2020-06-26 20:52] LABS: Glucose, Whole Blood 251 mg/dL (60-115)
[2020-06-26] MEDS: Heparin Sodium,Porcine 5,000 UNIT/ML VIAL 5000 UNIT SUBCUT (22:11)
[2020-06-27] MEDS: 0.9 % Sodium Chloride Flush 3 ML SYRINGE IVFLUSH (01:10)
[2020-06-27 04:00] VITALS: BP 160/90; PULSE 88; RESP 20; TEMP 36.2; O2SAT 98
[2020-06-27] MEDS: Omeprazole 20 MG CAPSULE.DR PO (07:03)
[2020-06-27 07:37] VITALS: BP 140/80; PULSE 88; RESP 18; TEMP 36.3; O2SAT 99
[2020-06-27 07:51] LABS: Glucose, Whole Blood 195 mg/dL (60-115)
[2020-06-27] MEDS: Insulin Lispro 100 UNIT/ML 3 ML VIAL SUBCUT (07:53)
[2020-06-27] MEDS: Heparin Sodium,Porcine 5,000 UNIT/ML VIAL 5000 UNIT SUBCUT (07:55)
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
--- NOTE | 2020-06-27 11:34 | MHC.CM.PN ---
Pt DC home today with no services
== END 2020-06-27 10:50 | disposition home or self-care (01) | DRG 92 ==
LOC: HO.ED 21:50 → HO.IMC 06-24 00:08 → HO.ICU 06-25 07:34 → HO.IMC 06-25 22:43
PROVIDERS: Anesthesiology; Admitting Provider Internal Medicine; Emergency Provider Emergency Medicine; Visit Provider Family Medicine
DX: G92 Toxic encephalopathy (principal); N17.9 Acute kidney failure, unspecified; Z68.41 Body mass index [BMI] 40.0-44.9, adult; E11.42 Type 2 diabetes mellitus with diabetic polyneuropathy; R41.0 Disorientation, unspecified; R74.01 Elevation of levels of liver transaminase levels; Z20.828 Contact with and (suspected) exposure to other viral communicable diseases; T42.8X6A Underdosing of antiparkinsonism drugs and other central muscle-tone depressants, initial encounter; Y92.9 Unspecified place or not applicable; F32.9 Major depressive disorder, single episode, unspecified; E66.9 Obesity, unspecified; E78.5 Hyperlipidemia, unspecified; Z87.440 Personal history of urinary (tract) infections; Z88.0 Allergy status to penicillin; Z88.2 Allergy status to sulfonamides; Z79.4 Long term (current) use of insulin; Z79.899 Other long term (current) drug therapy
CPT/HCPCS: 36415; 62328; 70450; 71045; 76700; 80048; 80076; 80202; 80320; 81001; 81003; 82140; 82803; 82945; 82947; 83605; 83690; 83735; 83880; 84157; 84443; 84484; 85025; 85610; 85730; 87015; 87040; 87070; 87205; 87635; 89051; 93005; 95816; 96361; 96374; 99223; 99285; 99291; G0480; J0133; J1200; J2060; J2270

== ENCOUNTER 2020-07-12 11:15 | Outpatient (REF) | payer MEDICARE, SELFPAY ==
--- NOTE | 2020-07-12 11:25 | XR_ITS ---
EXAMINATION: RIGHT SHOULDER AND HUMERUS X-RAY CLINICAL INFORMATION: Pain COMPARISON: Right shoulder x-ray most recent February 2019 TECHNIQUE: 3 views of the right shoulder and 2 views of the right humerus FINDINGS: Right shoulder: No acute fracture or dislocation is seen. There is evidence of old trauma to the right distal clavicle, widening of the acromion clavicular joint and elevation of the right distal clavicle. There are well-corticated soft tissue ossification inferior to the right clavicle the region of the AC joint and coracoclavicular ligament. This is unchanged. The glenohumeral joint is normal. There are soft tissue ossifications or calcifications adjacent to the right greater tuberosity suggestive of calcific tendinitis or bursitis. Right humerus: Bone alignment is normal. No fracture or dislocation is seen. Shoulder joint as above. The elbow joint is unremarkable. Soft tissues are unremarkable. XR/XR shoulder RT min 2V IMPRESSION: Right shoulder: Evidence of old trauma to the distal clavicle, acromioclavicular joint and coracoclavicular ligament similar to previous exam. Soft tissue calcification adjacent to the greater tuberosity suggestive of calcific tendinitis or bursitis. Right humerus: Unremarkable exam.
--- NOTE | 2020-07-12 11:25 | XR_ITS ---
EXAMINATION: RIGHT SHOULDER AND HUMERUS X-RAY CLINICAL INFORMATION: Pain COMPARISON: Right shoulder x-ray most recent February 2019 TECHNIQUE: 3 views of the right shoulder and 2 views of the right humerus FINDINGS: Right shoulder: No acute fracture or dislocation is seen. There is evidence of old trauma to the right distal clavicle, widening of the acromion clavicular joint and elevation of the right distal clavicle. There are well-corticated soft tissue ossification inferior to the right clavicle the region of the AC joint and coracoclavicular ligament. This is unchanged. The glenohumeral joint is normal. There are soft tissue ossifications or calcifications adjacent to the right greater tuberosity suggestive of calcific tendinitis or bursitis. Right humerus: Bone alignment is normal. No fracture or dislocation is seen. Shoulder joint as above. The elbow joint is unremarkable. Soft tissues are unremarkable. XR/XR humerus RT IMPRESSION: Right shoulder: Evidence of old trauma to the distal clavicle, acromioclavicular joint and coracoclavicular ligament similar to previous exam. Soft tissue calcification adjacent to the greater tuberosity suggestive of calcific tendinitis or bursitis. Right humerus: Unremarkable exam.
== END 2020-07-12 11:16 | disposition home or self-care (01) ==
LOC: HO.XRAY 11:15
PROVIDERS: PCP Internal Medicine; Visit Provider Internal Medicine
DX: M25.511 Pain in right shoulder (principal); M79.601 Pain in right arm
CPT/HCPCS: 73030; 73060

== ENCOUNTER 2020-07-24 19:55 | Inpatient (IN) | payer MEDICARE, SELFPAY ==
[2020-07-24 20:11] VITALS: BP 155/78; PULSE 106; RESP 18; TEMP 36.6; O2SAT 96; BMI 30.2
--- NOTE | 2020-07-24 20:17 | ED_ITS ---
HPI - Psych General Chief Complaint: Psychiatric Symptoms Stated Complaint: BEHAVIORAL PROBLEMS Time Seen by Provider: 07/24/20 20:16 Source: patient Mode of arrival: EMS Limitations: no limitations History of Present Illness HPI Narrative: Patient was brought in to the ED as a bed search. Patient was evaluated by [facility] and and is crisis bed search patient. called be agent because patient seem to him was playing with the gas stove. Patient herself denies this patient states he was trying to cook some turkey dinner. Patient denies being suicidal or homicidal. Patient denies having any auditory or visual hallucinations. As per EMS report, patient usually sundowns during this time of night due to dementia. Related Data Home Medications Medication Instructions Recorded Confirmed Lantus Solostar U-100 Insulin 40 unit SUBCUT BEDTIME 06/23/20 07/24/20 atorvastatin 20 mg PO DAILY 06/23/20 07/24/20 baclofen 10 mg PO TID 06/23/20 07/24/20 dicyclomine 20 mg PO TID 06/23/20 07/24/20 hydrochlorothiazide 12.5 mg PO DAILY 06/23/20 06/23/20 insulin lispro [Humalog KwikPen 2 - 14 unit SUBCUT DIRECTED 06/23/20 07/24/20 Insulin] nitrofurantoin macrocrystal 100 cap PO DAILY 06/23/20 06/23/20 pantoprazole 40 mg PO BID@0630,1630 06/23/20 06/23/20 promethazine 25 mg PO Q4-6H PRN 06/23/20 06/23/20 quetiapine 50 mg PO BEDTIME 06/23/20 06/23/20 sucralfate 1 g PO QIDACHS 06/23/20 06/23/20 Previous Rx's Medication Instructions Recorded melatonin 3 mg PO BEDTIME PRN #30 cap 06/27/20 Allergies Allergy/AdvReac Type Severity Reaction Status Date / Time Sulfa (Sulfonamide Allergy Severe DIFFICULTY Verified 06/23/20 15:25 Antibiotics) BREATHING [SULFA (SULFONAMIDE ANTIBIOTICS)] cephalexin [From KEFLEX] Allergy Intermediate RASH,HIVES Verified 06/23/20 15:25 amoxicillin [AMOXICILLIN] Allergy Unknown DENIES Verified 06/23/20 15:25 THIS ALLERGY 03/28/2018 penicillin V Allergy Unknown Unknown Verified 06/23/20 15:25 sumatriptan [From IMITREX] AdvReac Severe HEART Verified 06/23/20 15:25 PALPITATIONS topiramate [From TOPAMAX] AdvReac Severe AGITATION Verified 06/23/20 15:25 Penicillins [PENICILLINS] AdvReac Unknown THRUSH Verified 06/23/20 15:25 Keflex Allergy Unknown Unknown Uncoded 06/23/20 15:25 Sulfa Allergy Unknown Unknown Uncoded 06/23/20 15:25 Topamax Allergy Unknown Unknown Uncoded 06/23/20 15:25 Review of Systems Review of Systems: Yes all other systems are reviewed and are negative Constitutional: Constitutional: Reports as per HPI and Reports no additional constitutional complaints Eyes: Eyes: Reports as per HPI and Reports no additional eye complaints ENT: Reports system reviewed and no additional complaints, except as documented and Reports as per HPI Cardiovascular: Cardiovascular: Reports as per HPI and Reports no additional cardiovascular complaints Respiratory: Respiratory: Reports as per HPI and Reports no additional respiratory complaints Gastrointestinal: Gastrointestinal: Reports as per HPI, Reports no additional gastrointestinal complaints and Denies abdominal pain Musculoskeletal: Musculoskeletal: Reports no additional musculoskeletal complaints and Reports as per HPI Neurologic: Reports system reviewed and no additional complaints, except as documented and Reports as per HPI Psychiatric: Psychiatric: Reports no additional psychiatric complaints and Reports as per HPI PMFSH Past Medical History Medical History (Updated 07/25/20 @ 01:24 by MARCUS Cee) Brain tumor CHF (congestive heart failure) Diabetes Diabetic acetonemia HTN (hypertension) Neuropathy UTI (urinary tract infection) Surgical History History of hysterectomy Social History Social History Household Members: Unknown / Unable to assess Housing: Apartment Smoking Status: Never smoker Advance Directives: No Advance Directives Information Provided: Yes service: No Current occupational status: unemployed Physical Exam Vital Signs: Vital Signs: Last Vital Signs Temp 98 F 07/24/20 20:11 Pulse 106 H 07/24/20 20:11 Resp 18 07/24/20 20:11 BP 155/78 H 07/24/20 20:11 Pulse Ox 96 07/24/20 20:11 Body Mass Index 30.2 Const: General: cooperative, healthy appearing, comfortable, no acute distress, well developed, alert, awake and Physically active Orientation/consciousness: patient oriented x3 HENMT: Head: Yes normal to inspection and Yes No palpable skull fracture pre sent Eyes: General: appearance normal, both eyes and all related structures Neck: Neck: Yes normal visual inspection, Yes full ROM, Yes no lymphadenopathy, Yes no meningeal signs, Yes trachea midline, Yes supple and No tender Chest: Chest palpation & inspection: normal inspection of the chest, normal palpation of entire chest wall and no localized rib tenderness Resp: Effort & Inspection: normal respiratory effort and able to speak in complete sentences Auscultation: clear to auscultation bilaterally Cardio: Jugular venous distension: no JVD Heart sounds: S1 normal heart sound present and S2 normal heart sound present GI: Inspection: Yes normal to inspection and No abdominal wall ecchymosis Palpation (GI): Soft to palpation, not firm, nontender, no guarding and not rig id : General: No CVA tenderness and Yes no CVA tenderness Back/Spine/Pelvis: Back: no CVA tenderness, No CVA tenderness and No back tenderness Skin: General skin exam: no rashes or lesions noted Neuro: General: patient oriented x3, gait normal, no meningeal signs and CN's II-XI intact bilaterally Cranial nerves: Yes CN's II-XII intact bilaterally Extrem: General: Yes normal to inspection and Yes full ROM Psych: Appearance: grossly normal, well kempt and not disheveled Course Course Course Narrative: patient will have labs and urine done. Patient will await for bed search. Reevaluation(s) Reevaluation #1: Patient labs show mild UTI and elevated white blood cell count. Patient is not toxic appearing. patient does not have any urinary symptoms. patient does not need septic workup. patient has taken cefuroxime before as per review of chart with [employer]. Patiet has has chronic UTIs. patient is a bed search for [facility]-psych. patient does not need admission. Patient is not altered. patient is sleeping in bed. Time: 20:41 MDM - Psych Lab Data Result diagrams: 07/24/20 23:20 07/24/20 23:20 Labs: Lab Results 07/24/20 07/24/20 07/24/20 Range/Units 23:19 23:20 23:20 WBC 13.6 H (4.8-10.8) X10*3/uL RBC 4.13 L (4.20-5.50) X10*6/uL Hgb 13.5 (12.0-16.0) g/dl Hct 40.0 (37-47) % MCV 96.9 (80-98) fL MCH 32.7 (27.0-33.0) pg MCHC 33.8 (31.0-35.0) g/dl RDW 13.8 (11.0-16.0) % Plt Count 268 D (160-400) X10*3/uL MPV 9.2 L (9.4-12.3) fL Immature Gran % (Auto) 0.6 H (0.0-0.4) % Neut % (Auto) 61.2 (45-73) % Lymph % (Auto) 27.3 (20-40) % [place] % (Auto) 8.4 (2-11) % Eos % (Auto) 2.1 (0-4) % Baso % (Auto) 0.4 (0-2) % Lymph # (Auto) 3.7 (1.2-4.9) X10*3/uL [place] # (Auto) 1.1 (0.1-1.2) X10*3/uL Eos # (Auto) 0.3 (0.0-0.4) X10*3/uL Baso # (Auto) 0.1 (0.0-0.2) X10*3/uL Abs Immat Gran (auto) 0.08 H (0.00-0.03) X10*3/uL Absolute Neuts (auto) 8.4 H (2.0-8.3) X10*3/uL Absolute Nucleated RBC 0.000 (0.0-0.012) X10*3/uL Nucleated RBC % (auto) 0.0 (0.0-0.2) /100WBC Sodium 137 (135-145) mmol/L Potassium 3.7 (3.3-5.1) mmol/l Chloride 100 (96-108) mmol/L Carbon Dioxide 25 (22-29) mmol/L Anion Gap 16 (12-20) BUN 22 H (9-16) mg/dL Creatinine 0.86 (0.5-1.4) mg/dL Estim Creat Clear Calc 61.7 Estimated GFR > 60 Random Glucose 210 H D (60-115) mg/dL Calcium 9.3 D (8.4-10.2) mg/dL Total Bilirubin 0.3 (0.0-1.0) mg/dL Direct Bilirubin 0.2 (0.0-0.5) mg/dL AST 13 D (5-31) U/L ALT 16 (0-31) U/L Alkaline Phosphatase 78 D (39-117) U/L Total Protein 7.4 (6.5-8.0) g/dL Albumin 4.4 (3.5-5.0) g/dL Urine Color Urine Appearance Urine pH (5.0-8.0) Ur Specific Jerome (1.005-1.025) Urine Protein (NEG-TRACE) MG/DL Urine Glucose (UA) (NEG) MG/DL Urine Ketones (NEG) MG/DL Urine Blood (NEG) Urine Nitrite (NEG) Ur Leukocyte Esterase (NEG) Urine RBC (0) /HPF Urine WBC (0-4) /HPF Ur Squamous Epith Cells /LPF Urine Bacteria /LPF Urine Yeast /HPF Urine Opiates Screen Not Detected (Not Detect) Ur Barbiturates Screen Not Detected (Not Detect) Ur Phencyclidine Scrn Not Detected (Not Detect) Ur Amphetamines Screen Not Detected (Not Detect) U Benzodiazepines Scrn Not Detected (Not Detect) Urine Cocaine Screen Not Detected (Not Detect) U Marijuana (THC) Screen Not Detected (Not Detect) Ethyl Alcohol mg/dL 07/24/20 07/24/20 Range/Units 23:20 23:20 WBC (4.8-10.8) X10*3/uL RBC (4.20-5.50) X10*6/uL Hgb (12.0-16.0) g/dl Hct (37-47) % MCV (80-98) fL MCH (27.0-33.0) pg MCHC (31.0-35.0) g/dl RDW (11.0-16.0) % Plt Count (160-400) X10*3/uL MPV (9.4-12.3) fL Immature Gran % (Auto) (0.0-0.4) % Neut % (Auto) (45-73) % Lymph % (Auto) (20-40) % [place] % (Auto) (2-11) % Eos % (Auto) (0-4) % Baso % (Auto) (0-2) % Lymph # (Auto) (1.2-4.9) X10*3/uL [place] # (Auto) (0.1-1.2) X10*3/uL Eos # (Auto) (0.0-0.4) X10*3/uL Baso # (Auto) (0.0-0.2) X10*3/uL Abs Immat Gran (auto) (0.00-0.03) X10*3/uL Absolute Neuts (auto) (2.0-8.3) X10*3/uL Absolute Nucleated RBC (0.0-0.012) X10*3/uL Nucleated RBC % (auto) (0.0-0.2) /100WBC Sodium (135-145) mmol/L Potassium (3.3-5.1) mmol/l Chloride (96-108) mmol/L Carbon Dioxide (22-29) mmol/L Anion Gap (12-20) BUN (9-16) mg/dL Creatinine (0.5-1.4) mg/dL Estim Creat Clear Calc Estimated GFR Random Glucose (60-115) mg/dL Calcium (8.4-10.2) mg/dL Total Bilirubin (0.0-1.0) mg/dL Direct Bilirubin (0.0-0.5) mg/dL AST (5-31) U/L ALT (0-31) U/L Alkaline Phosphatase (39-117) U/L Total Protein (6.5-8.0) g/dL Albumin (3.5-5.0) g/dL Urine Color YELLOW Urine Appearance HAZY Urine pH 6.0 (5.0-8.0) Ur Specific Jerome 1.020 (1.005-1.025) Urine Protein NEG (NEG-TRACE) MG/DL Urine Glucose (UA) NEG (NEG) MG/DL Urine Ketones NEG (NEG) MG/DL Urine Blood NEG (NEG) Urine Nitrite NEG (NEG) Ur Leukocyte Esterase 1+ H (NEG) Urine RBC 1-4 (0) /HPF Urine WBC 15-29 H (0-4) /HPF Ur Squamous Epith Cells 2+ /LPF Urine Bacteria 1+ /LPF Urine Yeast 1+ /HPF Urine Opiates Screen (Not Detect) Ur Barbiturates Screen (Not Detect) Ur Phencyclidine Scrn (Not Detect) Ur Amphetamines Screen (Not Detect) U Benzodiazepines Scrn (Not Detect) Urine Cocaine Screen (Not Detect) U Marijuana (THC) Screen (Not Detect) Ethyl Alcohol < 10 mg/dL Discharge Plan Discharge Clinical Impression: Dementia Prescriptions: No Action quetiapine 25 mg tablet 50 mg PO BEDTIME RF: 0 Hold Instructions: Resume on 07/05/20. Hold pending instructions from atorvastatin 20 mg tablet 20 mg PO DAILY RF: 0 Hold Instructions: Resume on 07/05/20. Hold pending instructions from sucralfate 1 gram tablet 1 g PO QIDACHS RF: 0 dicyclomine 20 mg tablet 20 mg PO TID RF: 0 Hold Instructions: Resume on 07/05/20. Hold pending instructions from baclofen 10 mg tablet 10 mg PO TID RF: 0 Hold Instructions: Resume on 07/05/20. Hold pending instructions from pantoprazole 40 mg tablet,delayed release (DR/EC) 40 mg PO BID@0630,1630 RF: 0 nitrofurantoin macrocrystal 100 mg capsule 100 cap PO DAILY RF: 0 Hold Instructions: Resume on 07/05/20. Hold pending instructions from promethazine 25 mg tablet 25 mg PO Q4-6H PRN (Reason: Nausea And Vomiting) RF: 0 Hold Instructions: Resume on 07/05/20. Hold pending instructions from insulin lispro [Humalog KwikPen Insulin] 100 unit/mL insulin pen 2 - 14 unit subcut DIRECTED RF: 0 hydrochlorothiazide 12.5 mg tablet 12.5 mg PO DAILY RF: 0 Lantus Solostar U-100 Insulin 100 unit/mL (3 mL) insulin pen 40 unit subcut BEDTIME RF: 0 melatonin 3 mg capsule 3 mg PO BEDTIME PRN (Reason: insomnia) Qty: 30 RF: 0
--- NOTE | 2020-07-24 21:44 | PC.NURSE ---
Patient unable to provide urine sample at this time, patient alert and oriented, POC was 224 provider notified, [facility] pharmacy called/completed partial medication reconciliation, patient use [facility] as second pharmacy/closed at this time, Ant called at [phone] unable to get hold of him at this time, patient is in bed resting will continue to monitor.
[2020-07-24] MEDS: Insulin Glargine,Hum.rec.anlog 100 UNIT/ML 10 ML VIAL 40 UNIT SUBCUT (22:36)
[2020-07-24 23:27] LABS: MANUAL DIFF FLAG NO
[2020-07-24 23:31] LABS: Glucose Urine UA NEG (NEG); Leukocyte Esterase Urine 1+ (NEG); Nitrite Urine NEG (NEG); Urine Blood NEG (NEG); Urine Ketones NEG (NEG); Urine Protein NEG (NEG-TRACE)
[2020-07-24 23:32] LABS: Appearance Urine HAZY; Color Urine YELLOW
[2020-07-24 23:36] LABS: Basophils Absolute Auto 0.1 X10*3/uL (0.0-0.2); Basophils Percent Auto 0.4 % (0-2); Eosinophils Absolute Auto 0.3 X10*3/uL (0.0-0.4); Eosinophils Percent Auto 2.1 % (0-4); Hemoglobin 13.5 g/dl (12.0-16.0); Imm Gran Abs Auto 0.08 X10*3/uL (0.00-0.03); Imm Gran Pct Auto 0.6 % (0.0-0.4); Lymphocytes Absolute Auto 3.7 X10*3/uL (1.2-4.9); Lymphocytes Percent Auto 27.3 % (20-40); Mean Corpuscular HGB Conc 33.8 g/dl (31.0-35.0); Mean Corpuscular Hemoglobin 32.7 pg (27.0-33.0); Mean Corpuscular Volume 96.9 fL (80-98); Mean Platelet Volume 9.2 fL (9.4-12.3); Monocytes Absolute Auto 1.1 X10*3/uL (0.1-1.2); Monocytes Percent Auto 8.4 % (2-11); Neutrophils Absolute Auto 8.4 X10*3/uL (2.0-8.3); Neutrophils Percent Auto 61.2 % (45-73); Platelet Count 268 X10*3/uL (160-400); Red Blood Count 4.13 X10*6/uL (4.20-5.50); Red Cell Distribution Width 13.8 % (11.0-16.0); White Blood Count 13.6 X10*3/uL (4.8-10.8)
[2020-07-24 23:50] LABS: Ethanol < 10 mg/dL
[2020-07-24 23:52] LABS: Bacteria Urine 1+ /LPF; Squamous Epithelial Cell Urine 2+ /LPF
[2020-07-24 23:53] LABS: Alanine Aminotransferase 16 U/L (0-31); Albumin Level 4.4 g/dL (3.5-5.0); Alkaline Phosphatase 78 U/L (39-117); Anion Gap 16 (12-20); Aspartate Amino Transferase 13 U/L (5-31); Bilirubin Direct 0.2 mg/dL (0.0-0.5); Bilirubin Total 0.3 mg/dL (0.0-1.0); Blood Urea Nitrogen 22 mg/dL (9-16); Calcium 9.3 mg/dL (8.4-10.2); Carbon Dioxide 25 mmol/L (22-29); Chloride 100 mmol/L (96-108); Creatinine Clr Calc Pharmacy 61.7; Estimated Glomerular Filt Rate > 60; Glucose Random 210 mg/dL (60-115); Potassium 3.7 mmol/l (3.3-5.1); Sodium 137 mmol/L (135-145); Total Protein 7.4 g/dL (6.5-8.0)
[2020-07-25] VITALS (11 sets, daily range): BP systolic 137–186; BP diastolic 52–76; PULSE 76–95; RESP 17–20; TEMP 36.1–36.6; O2SAT 96–99
[2020-07-25 00:25] LABS: Amphetamine Screen Urine Not Detected (Not Detect); Barbiturates, Urine Not Detected (Not Detect); Benzodiazepines Screen Urine Not Detected (Not Detect); Cannabinoid Screen Urine Not Detected (Not Detect); Cocaine Screen Urine Not Detected (Not Detect); Opiate Screen Urine Not Detected (Not Detect); Phencyclidine Screen Urine Not Detected (Not Detect)
--- NOTE | 2020-07-25 01:31 | PC.NURSE ---
Patient just got woken to administer ceftin for UTI, patient compliant, denied distress, back to bed, will continue to monitor.
[2020-07-25 02:11] LABS: Glucose, Whole Blood 224 mg/dL (60-115)
--- NOTE | 2020-07-25 05:52 | PC.NURSE ---
Patient in bed appears sleeping, no distress observed/reported at this time, respiration +/=/non-labored bilaterally, will continue to monitor.
[2020-07-25 06:21] LABS: Glucose, Whole Blood 126 mg/dL (60-115)
--- NOTE | 2020-07-25 06:32 | PC.NURSE ---
Patient appears sleeping, POC was 126, BP 141/56, HR 76, will continue to monitor.
--- NOTE | 2020-07-25 07:14 | PC.NURSE ---
Report received from BRENT Stephen. Pt resting, resp unlabored.
--- NOTE | 2020-07-25 08:59 | PC.NURSE ---
Pt awake, alert. Affect even. orineted x3. States she has no depression, feels as if the incident as reported last evening was a misunderstanding. OPt surprised to hear that she will be staying in ED, states she thought her was going to pick her up. Denies pain or any other symptom.
[2020-07-25 10:24] LABS: COVID-19 Test Negative (Negative); IDNOW Serial# 9DD0AD1C
--- NOTE | 2020-07-25 11:25 | PC.NURSE ---
Addendum entered by Cornelia Ayala 07/25/20 11:28: Previous entry entered in error. Original Note: Pt transferred from main ED. Pt denies depression, denies VH or AH at this time. IV removed. Pt stated she did not realize that she is awaiting inpatient bed. Pt affect flat, currently on telephone.
[2020-07-25] MEDS: Acetaminophen 325 MG TABLET 650 MG PO ×2 (12:10→22:32)
[2020-07-25 12:14] LABS: Glucose, Whole Blood 75 mg/dL (60-115)
--- NOTE | 2020-07-25 14:49 | PC.NURSE ---
[facility] in to evaluate
[2020-07-25 17:38] LABS: Glucose, Whole Blood 230 mg/dL (60-115)
--- NOTE | 2020-07-25 17:53 | PC.NURSE ---
N April aware of current POC. Pt to receive Lantus later this evening as ordered. Nio further orders at this time.
--- NOTE | 2020-07-25 19:09 | PC.NURSE ---
Patient in bed, lying on her back, watching TV, no distress reported, per report patient's POC remained at safe level without needing coverage, VS at baseline, will continue to monitor.
[2020-07-25 20:17] LABS: Glucose, Whole Blood 182 mg/dL (60-115)
[2020-07-25] MEDS: Insulin Glargine,Hum.rec.anlog 100 UNIT/ML 10 ML VIAL 40 UNIT SUBCUT (20:20)
[2020-07-26] VITALS: BP 161/74; PULSE 103; RESP 17
[2020-07-26 00:11] VITALS: BP 170/86; PULSE 100; RESP 17; TEMP 36.7; O2SAT 95
[2020-07-26] MEDS: LORazepam 1 MG TABLET PO (00:27)
--- NOTE | 2020-07-26 00:29 | PC.NURSE ---
Patient reported she is worried about her appears anxious, patient hypertensive, provider notified/no new order hypertension/ordered Ativan 1 mg tablet/administered. Patient is sitting on her bed, watching TV, denied distress, will continue to monitor.
[2020-07-26 06:40] VITALS: BP 118/73; PULSE 94; RESP 20; TEMP 35.8; O2SAT 98
[2020-07-26 06:52] LABS: Glucose, Whole Blood 66 mg/dL (60-115)
[2020-07-26 09:23] VITALS: BP 152/70; PULSE 90; RESP 16; TEMP 37.2; O2SAT 96
[2020-07-26 10:37] LABS: Glucose, Whole Blood 109 mg/dL (60-115)
[2020-07-26] MEDS: Baclofen 10 MG TABLET PO ×2 (14:01→21:02)
[2020-07-26] MEDS: Atorvastatin Calcium 20 MG TABLET PO (14:01)
[2020-07-26 15:42] LABS: Glucose, Whole Blood 150 mg/dL (60-115)
--- NOTE | 2020-07-26 15:50 | PC.NURSE ---
Report received. Pt currently on the phone, no complaints at this time. Calm and cooperative
[2020-07-26 16:09] VITALS: BP 165/87; PULSE 102; RESP 16; TEMP 36.9; O2SAT 98
[2020-07-26] MEDS: Dicyclomine HCl 10 MG CAPSULE 20 MG PO ×2 (16:55→21:02)
[2020-07-26] MEDS: Omeprazole 20 MG CAPSULE.DR PO (16:55)
--- NOTE | 2020-07-26 17:38 | PC.NURSE ---
Pt using bathroom at current. No complaints at this time. Calm and cooperative.
--- NOTE | 2020-07-26 19:09 | PC.NURSE ---
Report received. PT is sleeping in bed. Breathing is even and unlabored. Inpatient bed search in progress.
[2020-07-26 20:21] VITALS: BP 128/54; PULSE 88; RESP 20; TEMP 37.1; O2SAT 98
[2020-07-26 20:56] LABS: Glucose, Whole Blood 207 mg/dL (60-115)
[2020-07-26] MEDS: QUEtiapine Fumarate 25 MG TABLET PO (21:02)
[2020-07-26] MEDS: Insulin Lispro 100 UNIT/ML 3 ML VIAL SUBCUT (21:03)
[2020-07-26] MEDS: Insulin Glargine,Hum.rec.anlog 100 UNIT/ML 10 ML VIAL 40 UNIT SUBCUT (21:05)
--- NOTE | 2020-07-27 07:01 | PC.NURSE ---
Report recieved. Pt currently sleeping, respirations even and unlabored, in no apparent distress. PT is inpatient bedsearch.
[2020-07-27 07:04] VITALS: BP 159/68; PULSE 95; RESP 20; TEMP 35.8; O2SAT 96
[2020-07-27] MEDS: Omeprazole 20 MG CAPSULE.DR PO (07:10)
[2020-07-27 07:11] LABS: Glucose, Whole Blood 130 mg/dL (60-115)
[2020-07-27] MEDS: Baclofen 10 MG TABLET PO ×3 (09:19→23:24)
[2020-07-27] MEDS: Atorvastatin Calcium 20 MG TABLET PO (09:19)
[2020-07-27] MEDS: Dicyclomine HCl 10 MG CAPSULE 20 MG PO ×3 (09:20→23:22)
[2020-07-27] MEDS: Acetaminophen 325 MG TABLET 650 MG PO (09:27)
[2020-07-27 09:30] VITALS: BP 124/58; PULSE 83; RESP 18; TEMP 36.8; O2SAT 96
[2020-07-27 12:56] LABS: Glucose, Whole Blood 191 mg/dL (60-115)
[2020-07-27] MEDS: Insulin Lispro 100 UNIT/ML 3 ML VIAL SUBCUT ×2 (13:00→23:17)
[2020-07-27 16:27] VITALS: BP 158/71; PULSE 85; RESP 18; TEMP 37.1; O2SAT 99
--- NOTE | 2020-07-27 19:07 | PC.NURSE ---
Report received. PT is resting in her room. Calm and cooperative. PT is resistant to being transferred to and still negotiating with CARE team at this time.
[2020-07-27 19:35] VITALS: BP 185/87; PULSE 95; TEMP 36.9
[2020-07-27 19:46] LABS: Glucose, Whole Blood 223 mg/dL (60-115)
[2020-07-27 22:50] LABS: Glucose, Whole Blood 278 mg/dL (60-115)
[2020-07-27] MEDS: Insulin Glargine,Hum.rec.anlog 100 UNIT/ML 10 ML VIAL 40 UNIT SUBCUT (23:19)
[2020-07-27] MEDS: QUEtiapine Fumarate 25 MG TABLET PO (23:24)
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
[2020-07-28 06:14] LABS: Glucose, Whole Blood 135 mg/dL (60-115)
[2020-07-28 06:40] VITALS: BP 149/76; PULSE 84; RESP 16; TEMP 36.1; O2SAT 99
[2020-07-28] MEDS: Baclofen 10 MG TABLET PO ×3 (08:12→20:46)
[2020-07-28] MEDS: Atorvastatin Calcium 20 MG TABLET PO (08:12)
[2020-07-28] MEDS: Omeprazole 20 MG CAPSULE.DR PO ×2 (08:12→16:32)
[2020-07-28] MEDS: Dicyclomine HCl 10 MG CAPSULE 20 MG PO ×3 (08:13→20:45)
[2020-07-28 08:37] LABS: Estimated Average Glucose 232 mg/dL; Hemoglobin A1c % 9.7 %
[2020-07-28 08:51] LABS: Cholesterol 154 mg/dL; HDL Cholesterol 43 mg/dL; LDL Cholesterol Calculated 87 mg/dl; Triglycerides 124 mg/dL
[2020-07-28 12:07] LABS: Glucose, Whole Blood 258 mg/dL (60-115)
[2020-07-28] MEDS: Insulin Lispro 100 UNIT/ML 3 ML VIAL SUBCUT ×3 (12:15→20:46)
[2020-07-28 16:29] LABS: Glucose, Whole Blood 214 mg/dL (60-115)
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
[2020-07-28 18:00] VITALS: BP 154/80; PULSE 101; TEMP 36.1
[2020-07-28 20:42] LABS: Glucose, Whole Blood 252 mg/dL (60-115)
[2020-07-28] MEDS: Insulin Glargine,Hum.rec.anlog 100 UNIT/ML 10 ML VIAL 40 UNIT SUBCUT (20:45)
[2020-07-28] MEDS: QUEtiapine Fumarate 25 MG TABLET PO (20:46)
[2020-07-29 06:23] LABS: Glucose, Whole Blood 102 mg/dL (60-115)
[2020-07-29 06:37] VITALS: BP 143/81; PULSE 83; RESP 18; TEMP 36.9; O2SAT 98
[2020-07-29] MEDS: Dicyclomine HCl 10 MG CAPSULE 20 MG PO ×3 (08:53→22:14)
[2020-07-29] MEDS: Omeprazole 20 MG CAPSULE.DR PO ×2 (08:53→16:35)
[2020-07-29] MEDS: Atorvastatin Calcium 20 MG TABLET PO (08:53)
[2020-07-29] MEDS: Baclofen 10 MG TABLET PO ×3 (08:53→22:14)
[2020-07-29 09:41] LABS: Basophils Absolute Auto 0.1 X10*3/uL (0.0-0.2); Basophils Percent Auto 0.4 % (0-2); Eosinophils Absolute Auto 0.2 X10*3/uL (0.0-0.4); Eosinophils Percent Auto 1.6 % (0-4); Hematocrit 40.6 % (37-47); Hemoglobin 13.2 g/dl (12.0-16.0); Imm Gran Abs Auto 0.07 X10*3/uL (0.00-0.03); Imm Gran Pct Auto 0.5 % (0.0-0.4); Lymphocytes Percent Auto 22.4 % (20-40); Mean Corpuscular HGB Conc 32.5 g/dl (31.0-35.0); Mean Corpuscular Hemoglobin 31.7 pg (27.0-33.0); Mean Corpuscular Volume 97.4 fL (80-98); Mean Platelet Volume 9.1 fL (9.4-12.3); Monocytes Percent Auto 7.3 % (2-11); Neutrophils Absolute Auto 9.2 X10*3/uL (2.0-8.3); Neutrophils Percent Auto 67.8 % (45-73); Platelet Count 269 X10*3/uL (160-400); Red Blood Count 4.17 X10*6/uL (4.20-5.50); Red Cell Distribution Width 13.8 % (11.0-16.0); White Blood Count 13.5 X10*3/uL (4.8-10.8)
[2020-07-29 09:42] LABS: MANUAL DIFF FLAG NO
[2020-07-29 10:13] LABS: Alanine Aminotransferase 18 U/L (0-31); Albumin Level 4.1 g/dL (3.5-5.0); Alkaline Phosphatase 65 U/L (39-117); Anion Gap 12 (12-20); Aspartate Amino Transferase 14 U/L (5-31); Bilirubin Direct 0.2 mg/dL (0.0-0.5); Bilirubin Total 0.4 mg/dL (0.0-1.0); Blood Urea Nitrogen 11 mg/dL (9-16); Calcium 9.2 mg/dL (8.4-10.2); Carbon Dioxide 27 mmol/L (22-29); Chloride 103 mmol/L (96-108); Creatinine Clr Calc Pharmacy 67.2; Estimated Glomerular Filt Rate > 60; Glucose Fasting 200 mg/dL (60-99); Potassium 3.9 mmol/l (3.3-5.1); Sodium 138 mmol/L (135-145)
[2020-07-29 10:34] LABS: Thyroid Stimulating Hormone 0.65 uIU/mL (0.32-4.0)
[2020-07-29 12:28] LABS: Glucose, Whole Blood 262 mg/dL (60-115)
[2020-07-29] MEDS: Insulin Lispro 100 UNIT/ML 3 ML VIAL SUBCUT ×2 (12:37→17:18)
--- NOTE | 2020-07-29 14:50 | HO.PSYCHPN ---
Subjective Subjective Date of Service: 07/29/20 Reason For Visit: depressed mood Subjective Notes: Conditional Voluntary Interim History: Natalia has been keeping to herself and she reports that she is feeling well and has no concerns. Medication Compliance: Yes Side effects from medications: No Attending Groups: No Review of Systems Acute medical concerns: No Medical Review of Systems: unchanged Review of Systems Reports system reviewed and no additional complaints, except as documented and Reports as per HPI Mental Status Exam Mental Status Exam Patient Appearance: Disheveled Patient Orientation: Person, Place, Time and Situation Level of Consciousness: Awake and Alert Patient Behavior: Appropriate and Resistive to Care Mood Description: Calm Affect Description: Calm and Apathetic Patient Cognition Impaired: Yes Ability to Follow Directions: Fair Speech Pattern: Clear Memory Description: Recent Impaired (MOCA 27/30, STM 3/5) and Immediate Intact Hallucinations: Visual Delusions: Paranoid Ideation Thought Process: Illogical Thought Content: negative for Suicidal Ideation and negative for Homicidal Ideation Judgement: Poor Judgement and Insight: poor Diagnostics Vital Signs (24Hr): Vital Signs - 24 hr 07/28/20 18:00 07/29/20 06:37 Temperature 97 F 98.4 F Pulse Rate 101 H 83 Respiratory Rate 18 Blood Pressure 154/80 H 143/81 H Pulse Oximetry 98 Body Mass Index 30.2 Labs Results: 07/29/20 09:21 07/29/20 09:21 Labs: Laboratory Results - last 48 hr 07/27/20 07/27/20 07/28/20 19:42 22:41 06:11 WBC RBC Hgb Hct MCV MCH MCHC RDW Plt Count MPV Immature Gran % (Auto) Neut % (Auto) Lymph % (Auto) [place] % (Auto) Eos % (Auto) Baso % (Auto) Lymph # (Auto) [place] # (Auto) Eos # (Auto) Baso # (Auto) Abs Immat Gran (auto) Absolute Neuts (auto) Absolute Nucleated RBC Nucleated RBC % (auto) Sodium Potassium Chloride Carbon Dioxide Anion Gap BUN Creatinine Estim Creat Clear Calc Estimated GFR POC Glucose 223 H 278 H 135 H Fasting Glucose Estimat Average Glucose Hemoglobin A1c % Calcium Total Bilirubin Direct Bilirubin AST ALT Alkaline Phosphatase Total Protein Albumin Triglycerides Cholesterol LDL Cholesterol, Calc HDL Cholesterol TSH 07/28/20 07/28/20 07/28/20 07:56 07:56 12:04 WBC RBC Hgb Hct MCV MCH MCHC RDW Plt Count MPV Immature Gran % (Auto) Neut % (Auto) Lymph % (Auto) [place] % (Auto) Eos % (Auto) Baso % (Auto) Lymph # (Auto) [place] # (Auto) Eos # (Auto) Baso # (Auto) Abs Immat Gran (auto) Absolute Neuts (auto) Absolute Nucleated RBC Nucleated RBC % (auto) Sodium Potassium Chloride Carbon Dioxide Anion Gap BUN Creatinine Estim Creat Clear Calc Estimated GFR POC Glucose 258 H Fasting Glucose Estimat Average Glucose 232 Hemoglobin A1c % 9.7 Calcium Total Bilirubin Direct Bilirubin AST ALT Alkaline Phosphatase Total Protein Albumin Triglycerides 124 Cholesterol 154 LDL Cholesterol, Calc 87 HDL Cholesterol 43 TSH 07/28/20 07/28/20 07/29/20 16:25 20:39 06:13 WBC RBC Hgb Hct MCV MCH MCHC RDW Plt Count MPV Immature Gran % (Auto) Neut % (Auto) Lymph % (Auto) [place] % (Auto) Eos % (Auto) Baso % (Auto) Lymph # (Auto) [place] # (Auto) Eos # (Auto) Baso # (Auto) Abs Immat Gran (auto) Absolute Neuts (auto) Absolute Nucleated RBC Nucleated RBC % (auto) Sodium Potassium Chloride Carbon Dioxide Anion Gap BUN Creatinine Estim Creat Clear Calc Estimated GFR POC Glucose 214 H 252 H 102 Fasting Glucose Estimat Average Glucose Hemoglobin A1c % Calcium Total Bilirubin Direct Bilirubin AST ALT Alkaline Phosphatase Total Protein Albumin Triglycerides Cholesterol LDL Cholesterol, Calc HDL Cholesterol TSH 07/29/20 07/29/20 07/29/20 09:21 09:21 12:25 WBC 13.5 H RBC 4.17 L Hgb 13.2 Hct 40.6 MCV 97.4 MCH 31.7 MCHC 32.5 RDW 13.8 Plt Count 269 MPV 9.1 L Immature Gran % (Auto) 0.5 H Neut % (Auto) 67.8 Lymph % (Auto) 22.4 [place] % (Auto) 7.3 Eos % (Auto) 1.6 Baso % (Auto) 0.4 Lymph # (Auto) 3.0 [place] # (Auto) 1.0 Eos # (Auto) 0.2 Baso # (Auto) 0.1 Abs Immat Gran (auto) 0.07 H Absolute Neuts (auto) 9.2 H Absolute Nucleated RBC 0.000 Nucleated RBC % (auto) 0.0 Sodium 138 Potassium 3.9 Chloride 103 Carbon Dioxide 27 Anion Gap 12 BUN 11 Creatinine 0.79 Estim Creat Clear Calc 67.2 Estimated GFR > 60 POC Glucose 262 H Fasting Glucose 200 H Estimat Average Glucose Hemoglobin A1c % Calcium 9.2 Total Bilirubin 0.4 Direct Bilirubin 0.2 AST 14 ALT 18 Alkaline Phosphatase 65 Total Protein 7.0 Albumin 4.1 Triglycerides Cholesterol LDL Cholesterol, Calc HDL Cholesterol TSH 0.65 Medications Medications Current Medications Generic Name Dose Route Start Last Admin Trade Name Freq PRN Reason Stop Dose Admin Acetaminophen 650 mg 07/27/20 09:17 07/27/20 09:27 Acetaminophen 325 Mg Tablet PO 650 mg RQ6H PRN Administration Headache Al Hydroxide/Mg Hydroxide 30 ml 07/27/20 17:39 Magnesium Hydrox/Alum Hydrox 30 Ml Oral.Susp PO Q6H PRN Heartburn/Nausea Atorvastatin Calcium 20 mg 07/26/20 12:15 07/29/20 08:53 Atorvastatin Calcium 20 Mg Tablet PO 20 mg DAILY [facility] Administration Baclofen 10 mg 07/26/20 15:00 07/29/20 08:53 Baclofen 10 Mg Tablet PO 10 mg TID [facility] Administration Cefuroxime Axetil 250 mg 07/25/20 01:00 07/29/20 08:51 Cefuroxime Axetil 250 Mg Tablet PO 250 mg BID [facility] Administration Dicyclomine HCl 20 mg 07/26/20 15:00 07/29/20 08:53 Dicyclomine Hcl 10 Mg Capsule PO 20 mg TID [facility] Administration Hydroxyzine HCl 25 mg 07/27/20 17:39 Hydroxyzine Hcl 25 Mg Tablet PO BEDTIME PRN Anxiety Insulin Glargine 40 unit 07/25/20 21:00 07/28/20 20:45 Insulin Glargine,Hum.Rec.Anlog 100 Unit/Ml 10 Ml Vial SUBCUT 1 unit BEDTIME [facility] Administration Insulin Human Lispro 0 unit 07/26/20 16:30 07/29/20 12:37 Insulin Lispro 100 Unit/Ml 3 Ml Vial SUBCUT 6 unit QIDACHS [facility] Administration Protocol Magnesium Hydroxide 30 ml 07/27/20 17:39 Milk Of Magnesia 30 Ml Oral.Susp PO DAILY PRN Constipation Nicotine Polacrilex 2 mg 07/27/20 17:39 Nicotine Polacrilex 2 Mg Gum BUCCAL Q2H PRN Nicotine Cravings Omeprazole 20 mg 07/26/20 16:30 07/29/20 08:53 Omeprazole 20 Mg Capsule. PO 20 mg BID@1960,6052 [facility] Administration Quetiapine Fumarate 50 mg 07/29/20 21:00 Quetiapine Fumarate 50 Mg Tablet PO BEDTIME [facility] Trazodone HCl 50 mg 07/27/20 17:39 Trazodone Hcl 50 Mg Tablet PO BEDTIME PRN Insomnia Allergies Allergies Allergy/AdvReac Type Severity Reaction Status Date / Time Sulfa (Sulfonamide Allergy Severe DIFFICULTY Verified 06/23/20 15:25 Antibiotics) BREATHING [SULFA (SULFONAMIDE ANTIBIOTICS)] cephalexin [From KEFLEX] Allergy Intermediate RASH,HIVES Verified 06/23/20 15:25 amoxicillin [AMOXICILLIN] Allergy Unknown DENIES Verified 06/23/20 15:25 THIS ALLERGY 03/28/2018 penicillin V Allergy Unknown Unknown Verified 06/23/20 15:25 sumatriptan [From IMITREX] AdvReac Severe HEART Verified 06/23/20 15:25 PALPITATIONS topiramate [From TOPAMAX] AdvReac Severe AGITATION Verified 06/23/20 15:25 Penicillins [PENICILLINS] AdvReac Unknown THRUSH Verified 06/23/20 15:25 Keflex Allergy Unknown Unknown Uncoded 06/23/20 15:25 Sulfa Allergy Unknown Unknown Uncoded 06/23/20 15:25 Topamax Allergy Unknown Unknown Uncoded 06/23/20 15:25 Assessment & Plan Assessment & Plan (1) Dementia, Lewy body with behavior disturbance: Status: Acute Code(s): G31.83 - Dementia with Lewy bodies; F02.81 - Dementia in other diseases classified elsewhere with behavioral disturbance Assessment and Plan: CT current treatment plan Greater than 50% of the session was spent on counseling and/or coordination of care Patient educated on: diagnosis and medication risk/benefits Informed Consent: does not understand Reason for contiued inpatient stay Substantial Risk for: inability to function and rapid decompensation
[2020-07-29 17:00] LABS: Glucose, Whole Blood 172 mg/dL (60-115)
[2020-07-29] MEDS: QUEtiapine Fumarate 50 MG TABLET PO (22:14)
[2020-07-29] MEDS: Insulin Glargine,Hum.rec.anlog 100 UNIT/ML 10 ML VIAL 40 UNIT SUBCUT (22:16)
[2020-07-29 22:28] LABS: Glucose, Whole Blood 205 mg/dL (60-115)
--- NOTE | 2020-07-30 | MR_ITS ---
MRI OF THE BRAIN WITHOUT IV CONTRAST INDICATION: Question Lewy Body dementia. COMPARISON: Head CT 06/23/2020. TECHNIQUE: Multiplanar multisequence MR imaging of the brain was obtained without IV contrast. FINDINGS: There is no hydrocephalus, extra-axial surface collection, or herniation. There is global cerebral volume loss and there is mild chronic microangiopathy. Partial loss of the V3 and V4 segments of the left vertebral artery flow void suggesting slow flow within versus partial occlusion of this vessel. There is no acute infarct on diffusion-weighted imaging. There is no intracranial hemorrhage on the gradient recalled echo acquisition. The midline structures are normal. The cerebellar tonsils are normally positioned. The cerebellum and brainstem are normal. The craniocervical junction is normal. Osseous marrow signal intensity is homogenous. The visualized soft tissues are unremarkable. MR/MR head/brain wo con IMPRESSION: - No acute intracranial findings. - There is global cerebral volume loss and there is mild chronic microangiopathy. - Partial loss of the V3 and V4 segments of the left vertebral artery flow void suggesting slow flow within versus partial occlusion of this vessel.
[2020-07-30 06:30] LABS: Glucose, Whole Blood 122 mg/dL (60-115)
[2020-07-30] MEDS: Omeprazole 20 MG CAPSULE.DR PO ×2 (06:37→16:56)
[2020-07-30 07:03] VITALS: BP 125/56; PULSE 73; RESP 18; TEMP 36.1; O2SAT 96
[2020-07-30 08:21] LABS: Syphilis Screen Nonreactive (Nonreactive)
[2020-07-30 08:33] LABS: Folate 16.2 ng/mL (> or = 4.0); Vitamin B12 1234 pg/mL (200-900)
[2020-07-30] MEDS: Atorvastatin Calcium 20 MG TABLET PO (09:01)
[2020-07-30] MEDS: Baclofen 10 MG TABLET PO ×3 (09:03→20:49)
[2020-07-30] MEDS: Dicyclomine HCl 10 MG CAPSULE 20 MG PO ×3 (09:03→20:50)
[2020-07-30 12:22] LABS: Glucose, Whole Blood 212 mg/dL (60-115)
[2020-07-30] MEDS: Insulin Lispro 100 UNIT/ML 3 ML VIAL SUBCUT ×3 (12:53→20:50)
[2020-07-30 13:41] LABS: Lyme Abs Screen <0.90 index
[2020-07-30] MEDS: Acetaminophen 325 MG TABLET 650 MG PO (14:56)
--- NOTE | 2020-07-30 16:10 | P.PNPSI_ITS ---
Subjective Subjective Date of Service: 07/30/20 Reason For Visit: depressed mood Subjective Notes: Section 12B Interim History: Natalia was cooperative with her MRI today. She sees no reason why she is in the hospital Medication Compliance: Yes Side effects from medications: No Attending Groups: Intermittent Review of Systems Acute medical concerns: No Medical Review of Systems: unchanged Review of Systems Reports system reviewed and no additional complaints, except as documented and Reports as per HPI Mental Status Exam Mental Status Exam Patient Appearance: Disheveled Patient Orientation: Person, Place, Time and Situation Level of Consciousness: Awake and Alert Patient Behavior: Appropriate and Resistive to Care Mood Description: Calm Affect Description: Calm and Apathetic Patient Cognition Impaired: Yes Ability to Follow Directions: Fair Speech Pattern: Clear Memory Description: Recent Impaired (MOCA , STM 3/5) and Immediate Intact Hallucinations: Visual Delusions: Paranoid Ideation Thought Process: Illogical Thought Content: negative for Suicidal Ideation and negative for Homicidal Ideation Judgement: Poor Judgement and Insight: poor Diagnostics Vital Signs (24Hr): Vital Signs - 24 hr 07/30/20 07:03 Temperature 96.9 F Pulse Rate 73 Respiratory Rate 18 Blood Pressure 125/56 L Pulse Oximetry 96 Body Mass Index 30.2 Labs Results: 07/29/20 09:21 07/29/20 09:21 Labs: Laboratory Results - last 48 hr 07/28/20 07/28/20 07/29/20 16:25 20:39 06:13 WBC RBC Hgb Hct MCV MCH MCHC RDW Plt Count MPV Immature Gran % (Auto) Neut % (Auto) Lymph % (Auto) [place] % (Auto) Eos % (Auto) Baso % (Auto) Lymph # (Auto) [place] # (Auto) Eos # (Auto) Baso # (Auto) Abs Immat Gran (auto) Absolute Neuts (auto) Absolute Nucleated RBC Nucleated RBC % (auto) Sodium Potassium Chloride Carbon Dioxide Anion Gap BUN Creatinine Estim Creat Clear Calc Estimated GFR POC Glucose 214 H 252 H 102 Fasting Glucose Calcium Total Bilirubin Direct Bilirubin AST ALT Alkaline Phosphatase Total Protein Albumin Vitamin B12 Folate TSH T.pallidum Ab (EIA) Lyme Screen IgG & IgM Lyme Progressive Test HIV Genotype 07/29/20 07/29/20 07/29/20 09:21 09:21 09:21 WBC RBC Hgb Hct MCV MCH MCHC RDW Plt Count MPV Immature Gran % (Auto) Neut % (Auto) Lymph % (Auto) [place] % (Auto) Eos % (Auto) Baso % (Auto) Lymph # (Auto) [place] # (Auto) Eos # (Auto) Baso # (Auto) Abs Immat Gran (auto) Absolute Neuts (auto) Absolute Nucleated RBC Nucleated RBC % (auto) Sodium 138 Potassium 3.9 Chloride 103 Carbon Dioxide 27 Anion Gap 12 BUN 11 Creatinine 0.79 Estim Creat Clear Calc 67.2 Estimated GFR > 60 POC Glucose Fasting Glucose 200 H Calcium 9.2 Total Bilirubin 0.4 Direct Bilirubin 0.2 AST 14 ALT 18 Alkaline Phosphatase 65 Total Protein 7.0 Albumin 4.1 Vitamin B12 1234 H Folate 16.2 TSH 0.65 T.pallidum Ab (EIA) Nonreactive Lyme Screen IgG & IgM Lyme Progressive Test HIV Genotype 07/29/20 07/29/20 07/29/20 09:21 09:21 12:25 WBC 13.5 H RBC 4.17 L Hgb 13.2 Hct 40.6 MCV 97.4 MCH 31.7 MCHC 32.5 RDW 13.8 Plt Count 269 MPV 9.1 L Immature Gran % (Auto) 0.5 H Neut % (Auto) 67.8 Lymph % (Auto) 22.4 [place] % (Auto) 7.3 Eos % (Auto) 1.6 Baso % (Auto) 0.4 Lymph # (Auto) 3.0 [place] # (Auto) 1.0 Eos # (Auto) 0.2 Baso # (Auto) 0.1 Abs Immat Gran (auto) 0.07 H Absolute Neuts (auto) 9.2 H Absolute Nucleated RBC 0.000 Nucleated RBC % (auto) 0.0 Sodium Potassium Chloride Carbon Dioxide Anion Gap BUN Creatinine Estim Creat Clear Calc Estimated GFR POC Glucose 262 H Fasting Glucose Calcium Total Bilirubin Direct Bilirubin AST ALT Alkaline Phosphatase Total Protein Albumin Vitamin B12 Folate TSH T.pallidum Ab (EIA) Lyme Screen IgG & IgM <0.90 Lyme Progressive Test TNP HIV Genotype Cancelled 07/29/20 07/29/20 07/30/20 16:55 22:11 06:27 WBC RBC Hgb Hct MCV MCH MCHC RDW Plt Count MPV Immature Gran % (Auto) Neut % (Auto) Lymph % (Auto) [place] % (Auto) Eos % (Auto) Baso % (Auto) Lymph # (Auto) [place] # (Auto) Eos # (Auto) Baso # (Auto) Abs Immat Gran (auto) Absolute Neuts (auto) Absolute Nucleated RBC Nucleated RBC % (auto) Sodium Potassium Chloride Carbon Dioxide Anion Gap BUN Creatinine Estim Creat Clear Calc Estimated GFR POC Glucose 172 H 205 H 122 H Fasting Glucose Calcium Total Bilirubin Direct Bilirubin AST ALT Alkaline Phosphatase Total Protein Albumin Vitamin B12 Folate TSH T.pallidum Ab (EIA) Lyme Screen IgG & IgM Lyme Progressive Test HIV Genotype 07/30/20 12:18 WBC RBC Hgb Hct MCV MCH MCHC RDW Plt Count MPV Immature Gran % (Auto) Neut % (Auto) Lymph % (Auto) [place] % (Auto) Eos % (Auto) Baso % (Auto) Lymph # (Auto) [place] # (Auto) Eos # (Auto) Baso # (Auto) Abs Immat Gran (auto) Absolute Neuts (auto) Absolute Nucleated RBC Nucleated RBC % (auto) Sodium Potassium Chloride Carbon Dioxide Anion Gap BUN Creatinine Estim Creat Clear Calc Estimated GFR POC Glucose 212 H Fasting Glucose Calcium Total Bilirubin Direct Bilirubin AST ALT Alkaline Phosphatase Total Protein Albumin Vitamin B12 Folate TSH T.pallidum Ab (EIA) Lyme Screen IgG & IgM Lyme Progressive Test HIV Genotype Imaging Radiology Impressions: ITS Impressions Brain MRI 07/30/20 00:00 IMPRESSION: - No acute intracranial findings. - There is global cerebral volume loss and there is mild chronic microangiopathy. - Partial loss of the V3 and V4 segments of the left vertebral artery flow void suggesting slow flow within versus partial occlusion of this vessel. Medications Medications Current Medications Generic Name Dose Route Start Last Admin Trade Name Freq PRN Reason Stop Dose Admin Acetaminophen 650 mg 07/27/20 09:17 07/30/20 14:56 Acetaminophen 325 Mg Tablet PO 650 mg RQ6H PRN Administration Headache Al Hydroxide/Mg Hydroxide 30 ml 07/27/20 17:39 Magnesium Hydrox/Alum Hydrox 30 Ml Oral.Susp PO Q6H PRN Heartburn/Nausea Atorvastatin Calcium 20 mg 07/26/20 12:15 07/30/20 09:01 Atorvastatin Calcium 20 Mg Tablet PO 20 mg DAILY FRANCHESKA Administration Baclofen 10 mg 07/26/20 15:00 07/30/20 14:56 Baclofen 10 Mg Tablet PO 10 mg TID FRANCHESKA Administration Cefuroxime Axetil 250 mg 07/25/20 01:00 07/30/20 09:02 Cefuroxime Axetil 250 Mg Tablet PO 250 mg BID FRANCHESKA Administration Dicyclomine HCl 20 mg 07/26/20 15:00 07/30/20 14:55 Dicyclomine Hcl 10 Mg Capsule PO 20 mg TID FRANCHESKA Administration Hydroxyzine HCl 25 mg 07/27/20 17:39 Hydroxyzine Hcl 25 Mg Tablet PO BEDTIME PRN Anxiety Insulin Glargine 40 unit 07/25/20 21:00 07/29/20 22:16 Insulin Glargine,Hum.Rec.Anlog 100 Unit/Ml 10 Ml Vial SUBCUT 40 unit BEDTIME FRANCHESKA Administration Insulin Human Lispro 0 unit 07/26/20 16:30 07/30/20 12:53 Insulin Lispro 100 Unit/Ml 3 Ml Vial SUBCUT 4 unit QIDACHS [facility] Administration Protocol Magnesium Hydroxide 30 ml 07/27/20 17:39 Milk Of Magnesia 30 Ml Oral.Susp PO DAILY PRN Constipation Nicotine Polacrilex 2 mg 07/27/20 17:39 Nicotine Polacrilex 2 Mg Gum BUCCAL Q2H PRN Nicotine Cravings Omeprazole 20 mg 07/26/20 16:30 07/30/20 06:37 Omeprazole 20 Mg Capsule.Dr PO 20 mg BID@0630,1630 FRANCHESKA Administration Quetiapine Fumarate 50 mg 07/29/20 21:00 07/29/20 22:14 Quetiapine Fumarate 50 Mg Tablet PO 50 mg BEDTIME FRANCHESKA Administration Trazodone HCl 50 mg 07/27/20 17:39 Trazodone Hcl 50 Mg Tablet PO BEDTIME PRN Insomnia Allergies Allergies Allergy/AdvReac Type Severity Reaction Status Date / Time Sulfa (Sulfonamide Allergy Severe DIFFICULTY Verified 06/23/20 15:25 Antibiotics) BREATHING [SULFA (SULFONAMIDE ANTIBIOTICS)] cephalexin [From KEFLEX] Allergy Intermediate RASH,HIVES Verified 06/23/20 15:25 amoxicillin [AMOXICILLIN] Allergy Unknown DENIES Verified 06/23/20 15:25 THIS ALLERGY 03/28/2018 penicillin V Allergy Unknown Unknown Verified 06/23/20 15:25 sumatriptan [From IMITREX] AdvReac Severe HEART Verified 06/23/20 15:25 PALPITATIONS topiramate [From TOPAMAX] AdvReac Severe AGITATION Verified 06/23/20 15:25 Penicillins [PENICILLINS] AdvReac Unknown THRUSH Verified 06/23/20 15:25 Keflex Allergy Unknown Unknown Uncoded 06/23/20 15:25 Sulfa Allergy Unknown Unknown Uncoded 06/23/20 15:25 Topamax Allergy Unknown Unknown Uncoded 06/23/20 15:25 Assessment & Plan Assessment & Plan (1) Dementia, Lewy body with behavior disturbance: Status: Acute Code(s): G31.83 - Dementia with Lewy bodies; F02.81 - Dementia in other diseases classified elsewhere with behavioral disturbance Assessment and Plan: CT current plan Begin aricept Greater than 50% of the session was spent on counseling and/or coordination of care Patient educated on: diagnosis and medication risk/benefits Informed Consent: further education needed Reason for contiued inpatient stay Substantial Risk for: inability to function
[2020-07-30 16:54] LABS: Glucose, Whole Blood 221 mg/dL (60-115)
[2020-07-30 18:00] VITALS: BP 157/67; PULSE 86; TEMP 36.4
[2020-07-30 20:47] LABS: Glucose, Whole Blood 205 mg/dL (60-115)
[2020-07-30] MEDS: Insulin Glargine,Hum.rec.anlog 100 UNIT/ML 10 ML VIAL 40 UNIT SUBCUT (20:51)
[2020-07-30] MEDS: QUEtiapine Fumarate 50 MG TABLET PO (20:52)
[2020-07-31] MEDS: hydrOXYzine HCL 25 MG TABLET PO (03:46)
[2020-07-31] MEDS: Acetaminophen 325 MG TABLET 650 MG PO ×2 (03:46→23:47)
[2020-07-31 06:15] VITALS: BP 117/61; PULSE 63; RESP 18; TEMP 36.3
[2020-07-31] MEDS: Omeprazole 20 MG CAPSULE.DR PO ×2 (06:32→17:17)
[2020-07-31 06:47] LABS: Glucose, Whole Blood 212 mg/dL (60-115)
[2020-07-31] MEDS: Donepezil HCl 5 MG TABLET PO (08:52)
[2020-07-31] MEDS: Dicyclomine HCl 10 MG CAPSULE 20 MG PO ×3 (08:52→22:25)
[2020-07-31] MEDS: Atorvastatin Calcium 20 MG TABLET PO (08:52)
[2020-07-31] MEDS: Baclofen 10 MG TABLET PO ×3 (08:52→22:26)
[2020-07-31] MEDS: Insulin Lispro 100 UNIT/ML 3 ML VIAL SUBCUT ×4 (08:52→22:30)
[2020-07-31 12:17] LABS: Glucose, Whole Blood 271 mg/dL (60-115)
--- NOTE | 2020-07-31 13:51 | HO.PSYCHPN ---
Subjective Subjective Date of Service: 07/31/20 Reason For Visit: depressed mood Subjective Notes: Conditional Voluntary Interim History: Natalia signed a CV and this was accepted. She continues to have no idea as to why she is in the hospital. Medication Compliance: Yes Side effects from medications: No Attending Groups: No Review of Systems Acute medical concerns: No Medical Review of Systems: unchanged Review of Systems Reports system reviewed and no additional complaints, except as documented and Reports as per [facility] Mental Status Exam Mental Status Exam Patient Appearance: Disheveled Patient Orientation: Person, Place, Time and Situation Level of Consciousness: Awake and Alert Patient Behavior: Appropriate and Resistive to Care Mood Description: Calm Affect Description: Calm and Apathetic Patient Cognition Impaired: Yes Ability to Follow Directions: Fair Speech Pattern: Clear Memory Description: Recent Impaired (MOCA 27/30, STM 3/5) and Immediate Intact Hallucinations: Visual Delusions: Paranoid Ideation Thought Process: Illogical Thought Content: negative for Suicidal Ideation and negative for Homicidal Ideation Judgement: Poor Judgement and Insight: poor Diagnostics Vital Signs (24Hr): Vital Signs - 24 hr 07/30/20 18:00 07/31/20 06:15 Temperature 97.6 F 97.4 F Pulse Rate 86 63 Respiratory Rate 18 Blood Pressure 157/67 H 117/61 Body Mass Index 30.2 Labs Results: 07/29/20 09:21 07/29/20 09:21 Labs: Laboratory Results - last 48 hr 07/29/20 07/29/20 07/29/20 09:21 09:21 09:21 POC Glucose Vitamin B12 1234 H Folate 16.2 T.pallidum Ab (EIA) Nonreactive Lyme Screen IgG & IgM <0.90 Lyme Progressive Test TNP HIV Genotype Cancelled 07/29/20 07/29/20 07/30/20 16:55 22:11 06:27 POC Glucose 172 H 205 H 122 H Vitamin B12 Folate T.pallidum Ab (EIA) Lyme Screen IgG & IgM Lyme Progressive Test HIV Genotype 07/30/20 07/30/20 07/30/20 12:18 16:51 20:43 POC Glucose 212 H 221 H 205 H Vitamin B12 Folate T.pallidum Ab (EIA) Lyme Screen IgG & IgM Lyme Progressive Test HIV Genotype 07/31/20 07/31/20 06:36 12:07 POC Glucose 212 H 271 H Vitamin B12 Folate T.pallidum Ab (EIA) Lyme Screen IgG & IgM Lyme Progressive Test HIV Genotype Imaging Radiology Impressions: ITS Impressions Brain MRI 07/30/20 00:00 IMPRESSION: - No acute intracranial findings. - There is global cerebral volume loss and there is mild chronic microangiopathy. - Partial loss of the V3 and V4 segments of the left vertebral artery flow void suggesting slow flow within versus partial occlusion of this vessel. Medications Medications Current Medications Generic Name Dose Route Start Last Admin Trade Name Freq PRN Reason Stop Dose Admin Acetaminophen 650 mg 07/27/20 09:17 07/31/20 03:46 Acetaminophen 325 Mg Tablet PO 650 mg RQ6H PRN Administration Headache Al Hydroxide/Mg Hydroxide 30 ml 07/27/20 17:39 Magnesium Hydrox/Alum Hydrox 30 Ml Oral.Susp PO Q6H PRN Heartburn/Nausea Atorvastatin Calcium 20 mg 07/26/20 12:15 07/31/20 08:52 Atorvastatin Calcium 20 Mg Tablet PO 20 mg DAILY FRANCHESKA Administration Baclofen 10 mg 07/26/20 15:00 07/31/20 08:52 Baclofen 10 Mg Tablet PO 10 mg TID FRANCHESKA Administration Cefuroxime Axetil 250 mg 07/25/20 01:00 07/31/20 08:52 Cefuroxime Axetil 250 Mg Tablet PO 250 mg BID FRANCHESKA Administration Dicyclomine HCl 20 mg 07/26/20 15:00 07/31/20 08:52 Dicyclomine Hcl 10 Mg Capsule PO 20 mg TID FRANCHESKA Administration Donepezil HCl 5 mg 07/31/20 09:00 07/31/20 08:52 Donepezil Hcl 5 Mg Tablet PO 5 mg DAILY FRANCHESKA Administration Hydroxyzine HCl 25 mg 07/27/20 17:39 07/31/20 03:46 Hydroxyzine Hcl 25 Mg Tablet PO 25 mg BEDTIME PRN Administration Anxiety Insulin Glargine 40 unit 07/25/20 21:00 07/30/20 20:51 Insulin Glargine,Hum.Rec.Anlog 100 Unit/Ml 10 Ml Vial SUBCUT 40 unit BEDTIME FRANCHESKA Administration Insulin Human Lispro 0 unit 07/26/20 16:30 07/31/20 12:51 Insulin Lispro 100 Unit/Ml 3 Ml Vial SUBCUT 6 unit QIDACHS FRANCHESKA Administration Protocol Magnesium Hydroxide 30 ml 07/27/20 17:39 Milk Of Magnesia 30 Ml Oral.Susp PO DAILY PRN Constipation Nicotine Polacrilex 2 mg 07/27/20 17:39 Nicotine Polacrilex 2 Mg Gum BUCCAL Q2H PRN Nicotine Cravings Omeprazole 20 mg 07/26/20 16:30 07/31/20 06:32 Omeprazole 20 Mg Capsule. PO 20 mg BID@0630,1630 FRANCHESKA Administration Quetiapine Fumarate 50 mg 07/29/20 21:00 07/30/20 20:52 Quetiapine Fumarate 50 Mg Tablet PO 50 mg BEDTIME FRANCHESKA Administration Trazodone HCl 50 mg 07/27/20 17:39 Trazodone Hcl 50 Mg Tablet PO BEDTIME PRN Insomnia Allergies Allergies Allergy/AdvReac Type Severity Reaction Status Date / Time Sulfa (Sulfonamide Allergy Severe DIFFICULTY Verified 06/23/20 15:25 Antibiotics) BREATHING [SULFA (SULFONAMIDE ANTIBIOTICS)] cephalexin [From KEFLEX] Allergy Intermediate RASH,HIVES Verified 06/23/20 15:25 amoxicillin [AMOXICILLIN] Allergy Unknown DENIES Verified 06/23/20 15:25 THIS ALLERGY 03/28/2018 penicillin V Allergy Unknown Unknown Verified 06/23/20 15:25 sumatriptan [From IMITREX] AdvReac Severe HEART Verified 06/23/20 15:25 PALPITATIONS topiramate [From TOPAMAX] AdvReac Severe AGITATION Verified 06/23/20 15:25 Penicillins [PENICILLINS] AdvReac Unknown THRUSH Verified 06/23/20 15:25 Keflex Allergy Unknown Unknown Uncoded 06/23/20 15:25 Sulfa Allergy Unknown Unknown Uncoded 06/23/20 15:25 Topamax Allergy Unknown Unknown Uncoded 06/23/20 15:25 Assessment & Plan Assessment & Plan (1) Dementia, Lewy body with behavior disturbance: Status: Acute Code(s): G31.83 - Dementia with Lewy bodies; F02.81 - Dementia in other diseases classified elsewhere with behavioral disturbance Assessment and Plan: CT current plan Greater than 50% of the session was spent on counseling and/or coordination of care Patient educated on: diagnosis and medication risk/benefits Informed Consent: does not understand Reason for contiued inpatient stay Substantial Risk for: rapid decompensation
[2020-07-31 17:05] VITALS: BP 115/66; PULSE 88; TEMP 36.6
[2020-07-31 17:20] LABS: Glucose, Whole Blood 229 mg/dL (60-115)
[2020-07-31 22:04] LABS: Glucose, Whole Blood 255 mg/dL (60-115)
[2020-07-31] MEDS: QUEtiapine Fumarate 50 MG TABLET PO (22:26)
[2020-07-31] MEDS: Insulin Glargine,Hum.rec.anlog 100 UNIT/ML 10 ML VIAL 40 UNIT SUBCUT (22:28)
[2020-08-01] MEDS: traZODone HCL 50 MG TABLET PO (02:43)
[2020-08-01] MEDS: hydrOXYzine HCL 25 MG TABLET PO (02:43)
[2020-08-01 06:10] LABS: Glucose, Whole Blood 120 mg/dL (60-115)
[2020-08-01 06:30] VITALS: BP 106/46; PULSE 66; RESP 16; TEMP 35.8; O2SAT 99
[2020-08-01] MEDS: Dicyclomine HCl 10 MG CAPSULE 20 MG PO ×3 (09:04→20:37)
[2020-08-01] MEDS: Baclofen 10 MG TABLET PO ×3 (09:05→20:36)
[2020-08-01] MEDS: Donepezil HCl 5 MG TABLET PO (09:05)
[2020-08-01] MEDS: Atorvastatin Calcium 20 MG TABLET PO (09:05)
[2020-08-01] MEDS: Omeprazole 20 MG CAPSULE.DR PO ×2 (09:05→17:22)
[2020-08-01] MEDS: Acetaminophen 325 MG TABLET 650 MG PO ×2 (10:29→17:27)
[2020-08-01 12:44] LABS: Glucose, Whole Blood 265 mg/dL (60-115)
[2020-08-01] MEDS: Insulin Lispro 100 UNIT/ML 3 ML VIAL SUBCUT ×3 (12:47→21:01)
--- NOTE | 2020-08-01 15:37 | P.PNPSI_ITS ---
Subjective Subjective Date of Service: 08/01/20 Reason For Visit: depressed mood Subjective Notes: Conditional Voluntary Interim History: Natalia is cooperative and engaged. She learned that her brother in law and she is provessing this appropriately Medication Compliance: Yes Side effects from medications: No Attending Groups: Intermittent Review of Systems Acute medical concerns: No Medical Review of Systems: unchanged Review of Systems Reports system reviewed and no additional complaints, except as documented and Reports as per [facility] Mental Status Exam Mental Status Exam Patient Appearance: Disheveled Patient Orientation: Person, Place, Time and Situation Level of Consciousness: Awake and Alert Patient Behavior: Appropriate and Resistive to Care Mood Description: Calm Affect Description: Calm and Apathetic Patient Cognition Impaired: Yes Ability to Follow Directions: Fair Speech Pattern: Clear Memory Description: Recent Impaired (MOCA /, STM 3/5) and Immediate Intact Hallucinations: Visual Delusions: Paranoid Ideation Thought Process: Illogical Thought Content: negative for Suicidal Ideation and negative for Homicidal Ideation Judgement: Poor Judgement and Insight: poor Diagnostics Vital Signs (24Hr): Vital Signs - 24 hr 07/31/20 17:05 08/01/20 06:30 Temperature 97.9 F 96.4 F L Pulse Rate 88 66 Respiratory Rate 16 Blood Pressure 115/66 106/46 L Pulse Oximetry 99 Body Mass Index 30.2 Labs Results: 07/29/20 09:21 07/29/20 09:21 Labs: Laboratory Results - last 48 hr 07/30/20 07/30/20 07/31/20 16:51 20:43 06:36 POC Glucose 221 H 205 H 212 H 07/31/20 07/31/20 07/31/20 12:07 17:12 21:56 POC Glucose 271 H 229 H 255 H 08/01/20 08/01/20 05:58 12:34 POC Glucose 120 H 265 H Imaging Radiology Impressions: ITS Impressions Brain MRI 07/30/20 00:00 IMPRESSION: - No acute intracranial findings. - There is global cerebral volume loss and there is mild chronic microangiopathy. - Partial loss of the V3 and V4 segments of the left vertebral artery flow void suggesting slow flow within versus partial occlusion of this vessel. Medications Medications Current Medications Generic Name Dose Route Start Last Admin Trade Name Freq PRN Reason Stop Dose Admin Acetaminophen 650 mg 07/27/20 09:17 08/01/20 10:29 Acetaminophen 325 Mg Tablet PO 650 mg RQ6H PRN Administration Headache Al Hydroxide/Mg Hydroxide 30 ml 07/27/20 17:39 Magnesium Hydrox/Alum Hydrox 30 Ml Oral.Susp PO Q6H PRN Heartburn/Nausea Atorvastatin Calcium 20 mg 07/26/20 12:15 08/01/20 09:05 Atorvastatin Calcium 20 Mg Tablet PO 20 mg DAILY FRANCHESKA Administration Baclofen 10 mg 07/26/20 15:00 08/01/20 14:30 Baclofen 10 Mg Tablet PO 10 mg TID FRANCHESKA Administration Dicyclomine HCl 20 mg 07/26/20 15:00 08/01/20 14:30 Dicyclomine Hcl 10 Mg Capsule PO 20 mg TID FRANCHESKA Administration Donepezil HCl 5 mg 07/31/20 09:00 08/01/20 09:05 Donepezil Hcl 5 Mg Tablet PO 5 mg DAILY FRANCHESKA Administration Hydroxyzine HCl 25 mg 07/27/20 17:39 08/01/20 02:43 Hydroxyzine Hcl 25 Mg Tablet PO 25 mg BEDTIME PRN Administration Anxiety Insulin Glargine 40 unit 07/25/20 21:00 07/31/20 22:28 Insulin Glargine,Hum.Rec.Anlog 100 Unit/Ml 10 Ml Vial SUBCUT 40 unit BEDTIME [facility] Administration Insulin Human Lispro 0 unit 07/26/20 16:30 08/01/20 12:47 Insulin Lispro 100 Unit/Ml 3 Ml Vial SUBCUT 6 unit QIDACHS [facility] Administration Protocol Magnesium Hydroxide 30 ml 07/27/20 17:39 Milk Of Magnesia 30 Ml Oral.Susp PO DAILY PRN Constipation Nicotine Polacrilex 2 mg 07/27/20 17:39 Nicotine Polacrilex 2 Mg Gum BUCCAL Q2H PRN Nicotine Cravings Nystatin 1 appl 08/01/20 10:15 08/01/20 10:37 Nystatin Cream 15 Gm Tube TOPICAL Not Given BID [facility] Protocol Omeprazole 20 mg 07/26/20 16:30 08/01/20 09:05 Omeprazole 20 Mg Capsule.Dr PO 20 mg BID@0630,1630 FRANCHESKA Administration Quetiapine Fumarate 50 mg 07/29/20 21:00 07/31/20 22:26 Quetiapine Fumarate 50 Mg Tablet PO 50 mg BEDTIME FRANCHESKA Administration Trazodone HCl 50 mg 07/27/20 17:39 08/01/20 02:43 Trazodone Hcl 50 Mg Tablet PO 50 mg BEDTIME PRN Administration Insomnia Allergies Allergies Allergy/AdvReac Type Severity Reaction Status Date / Time Sulfa (Sulfonamide Allergy Severe DIFFICULTY Verified 06/23/20 15:25 Antibiotics) BREATHING [SULFA (SULFONAMIDE ANTIBIOTICS)] cephalexin [From KEFLEX] Allergy Intermediate RASH,HIVES Verified 06/23/20 15:25 amoxicillin [AMOXICILLIN] Allergy Unknown DENIES Verified 06/23/20 15:25 THIS ALLERGY 03/28/2018 penicillin V Allergy Unknown Unknown Verified 06/23/20 15:25 sumatriptan [From IMITREX] AdvReac Severe HEART Verified 06/23/20 15:25 PALPITATIONS topiramate [From TOPAMAX] AdvReac Severe AGITATION Verified 06/23/20 15:25 Penicillins [PENICILLINS] AdvReac Unknown THRUSH Verified 06/23/20 15:25 Keflex Allergy Unknown Unknown Uncoded 06/23/20 15:25 Sulfa Allergy Unknown Unknown Uncoded 06/23/20 15:25 Topamax Allergy Unknown Unknown Uncoded 06/23/20 15:25 Assessment & Plan Assessment & Plan (1) Dementia, Lewy body with behavior disturbance: Status: Acute Code(s): G31.83 - Dementia with Lewy bodies; F02.81 - Dementia in other diseases classified elsewhere with behavioral disturbance Greater than 50% of the session was spent on counseling and/or coordination of care Patient educated on: diagnosis and medication risk/benefits Informed Consent: further education needed Reason for contiued inpatient stay Substantial Risk for: rapid decompensation
[2020-08-01 17:23] LABS: Glucose, Whole Blood 237 mg/dL (60-115)
[2020-08-01] MEDS: QUEtiapine Fumarate 50 MG TABLET PO (20:37)
[2020-08-01 20:54] LABS: Glucose, Whole Blood 289 mg/dL (60-115)
[2020-08-01] MEDS: Nystatin Cream 15 GM TUBE 1 APPL TOPICAL (20:59)
[2020-08-01] MEDS: Insulin Glargine,Hum.rec.anlog 100 UNIT/ML 10 ML VIAL 40 UNIT SUBCUT (21:02)
[2020-08-01 21:45] VITALS: BP 122/68; PULSE 78; TEMP 36.6
[2020-08-02] MEDS: Acetaminophen 325 MG TABLET 650 MG PO ×3 (02:01→17:05)
[2020-08-02] MEDS: hydrOXYzine HCL 25 MG TABLET PO (02:01)
[2020-08-02 04:28] LABS: HIV AB/AG Nonreactive (Nonreactive); HIV Num 1 0.14 S/CO (0.00-0.99)
[2020-08-02 06:15] VITALS: BP 121/58; PULSE 80; RESP 16; TEMP 36.3
[2020-08-02] MEDS: Omeprazole 20 MG CAPSULE.DR PO ×2 (06:23→17:05)
[2020-08-02 06:37] LABS: Glucose, Whole Blood 259 mg/dL (60-115)
--- NOTE | 2020-08-02 07:54 | HO.PSYCHPN ---
Subjective Subjective Date of Service: 08/02/20 Reason For Visit: depressed mood Interim History: Natalia is cooperative and engaged. She learned that her brother in law and she is provessing this appropriately. Pleasant mood. States her is willing to go to therapy for his infidelity . No insight intpo delusional content . No dyscontrol. MRI neg. Other tests negative. Appreciate Neuro consult. Anticipate DC Wed,. MOCA today Review of Systems Review of Systems Complaining of right shoulder pain that sometimes radiates up to her head causing headache. Reports system reviewed and no additional complaints, except as documented and Reports as per [facility] Mental Status Exam Mental Status Exam Patient Appearance: Disheveled Patient Orientation: Person, Place, Time and Situation Level of Consciousness: Awake and Alert Patient Behavior: Appropriate and Resistive to Care Mood Description: Calm Affect Description: Calm and Apathetic Patient Cognition Impaired: Yes Ability to Follow Directions: Fair Speech Pattern: Clear Memory Description: Recent Impaired (MOCA , STM 3/5) and Immediate Intact Diagnostics Vital Signs (24Hr): Vital Signs - 24 hr 08/01/20 21:45 08/02/20 06:15 Temperature 97.8 F 97.3 F Pulse Rate 78 80 Respiratory Rate 16 Blood Pressure 122/68 121/58 L Body Mass Index 30.2 Labs Results: 07/29/20 09:21 07/29/20 09:21 Labs: Laboratory Results - last 48 hr 07/29/20 07/31/20 07/31/20 09:21 12:07 17:12 POC Glucose 271 H 229 H HIV 1&2 Ab/P24 Ag 4thGn Nonreactive 07/31/20 08/01/20 08/01/20 21:56 05:58 12:34 POC Glucose 255 H 120 H 265 H HIV 1&2 Ab/P24 Ag 4thGn 08/01/20 08/01/20 08/02/20 17:14 20:47 06:28 POC Glucose 237 H 289 H 259 H HIV 1&2 Ab/P24 Ag 4thGn Imaging Radiology Impressions: ITS Impressions Brain MRI 07/30/20 00:00 IMPRESSION: - No acute intracranial findings. - There is global cerebral volume loss and there is mild chronic microangiopathy. - Partial loss of the V3 and V4 segments of the left vertebral artery flow void suggesting slow flow within versus partial occlusion of this vessel. Medications Medications Current Medications Generic Name Dose Route Start Last Admin Trade Name Freq PRN Reason Stop Dose Admin Acetaminophen 650 mg 07/27/20 09:17 08/02/20 02:01 Acetaminophen 325 Mg Tablet PO 650 mg RQ6H PRN Administration Headache Al Hydroxide/Mg Hydroxide 30 ml 07/27/20 17:39 Magnesium Hydrox/Alum Hydrox 30 Ml Oral.Susp PO Q6H PRN Heartburn/Nausea Atorvastatin Calcium 20 mg 07/26/20 12:15 08/01/20 09:05 Atorvastatin Calcium 20 Mg Tablet PO 20 mg DAILY FRANCHESKA Administration Baclofen 10 mg 07/26/20 15:00 08/01/20 20:36 Baclofen 10 Mg Tablet PO 10 mg TID FRANCHESKA Administration Dicyclomine HCl 20 mg 07/26/20 15:00 08/01/20 20:37 Dicyclomine Hcl 10 Mg Capsule PO 20 mg TID FRANCHESKA Administration Donepezil HCl 5 mg 07/31/20 09:00 08/01/20 09:05 Donepezil Hcl 5 Mg Tablet PO 5 mg DAILY FRANCHESKA Administration Hydroxyzine HCl 25 mg 07/27/20 17:39 08/02/20 02:01 Hydroxyzine Hcl 25 Mg Tablet PO 25 mg BEDTIME PRN Administration Anxiety Insulin Glargine 40 unit 07/25/20 21:00 08/01/20 21:02 Insulin Glargine,Hum.Rec.Anlog 100 Unit/Ml 10 Ml Vial SUBCUT 40 unit BEDTIME FRANCHESKA Administration Insulin Human Lispro 0 unit 07/26/20 16:30 08/01/20 21:01 Insulin Lispro 100 Unit/Ml 3 Ml Vial SUBCUT 6 unit QIDACHS [facility] Administration Protocol Magnesium Hydroxide 30 ml 07/27/20 17:39 Milk Of Magnesia 30 Ml Oral.Susp PO DAILY PRN Constipation Nicotine Polacrilex 2 mg 07/27/20 17:39 Nicotine Polacrilex 2 Mg Gum BUCCAL Q2H PRN Nicotine Cravings Nystatin 1 appl 08/01/20 10:15 08/01/20 20:59 Nystatin Cream 15 Gm Tube TOPICAL 1 appl BID [facility] Administration Protocol Omeprazole 20 mg 07/26/20 16:30 08/02/20 06:23 Omeprazole 20 Mg Capsule.Dr PO 20 mg BID@0630,1630 [facility] Administration Quetiapine Fumarate 50 mg 07/29/20 21:00 08/01/20 20:37 Quetiapine Fumarate 50 Mg Tablet PO 50 mg BEDTIME FRANCHESKA Administration Trazodone HCl 50 mg 07/27/20 17:39 08/01/20 02:43 Trazodone Hcl 50 Mg Tablet PO 50 mg BEDTIME PRN Administration Insomnia Allergies Allergies Allergy/AdvReac Type Severity Reaction Status Date / Time Sulfa (Sulfonamide Allergy Severe DIFFICULTY Verified 06/23/20 15:25 Antibiotics) BREATHING [SULFA (SULFONAMIDE ANTIBIOTICS)] cephalexin [From KEFLEX] Allergy Intermediate RASH,HIVES Verified 06/23/20 15:25 amoxicillin [AMOXICILLIN] Allergy Unknown DENIES Verified 06/23/20 15:25 THIS ALLERGY 03/28/2018 penicillin V Allergy Unknown Unknown Verified 06/23/20 15:25 sumatriptan [From IMITREX] AdvReac Severe HEART Verified 06/23/20 15:25 PALPITATIONS topiramate [From TOPAMAX] AdvReac Severe AGITATION Verified 06/23/20 15:25 Penicillins [PENICILLINS] AdvReac Unknown THRUSH Verified 06/23/20 15:25 Keflex Allergy Unknown Unknown Uncoded 06/23/20 15:25 Sulfa Allergy Unknown Unknown Uncoded 06/23/20 15:25 Topamax Allergy Unknown Unknown Uncoded 06/23/20 15:25 Assessment & Plan Assessment & Plan (1) Dementia, Lewy body with behavior disturbance: Status: Acute Code(s): G31.83 - Dementia with Lewy bodies; F02.81 - Dementia in other diseases classified elsewhere with behavioral disturbance Assessment and Plan: CT current plan Greater than 50% of the session was spent on counseling and/or coordination of care
[2020-08-02] MEDS: Insulin Lispro 100 UNIT/ML 3 ML VIAL SUBCUT ×4 (08:47→21:46)
[2020-08-02] MEDS: Baclofen 10 MG TABLET PO ×3 (08:49→21:56)
[2020-08-02] MEDS: Dicyclomine HCl 10 MG CAPSULE 20 MG PO ×3 (08:49→21:57)
[2020-08-02] MEDS: Donepezil HCl 5 MG TABLET PO (08:50)
[2020-08-02] MEDS: Atorvastatin Calcium 20 MG TABLET PO (08:50)
[2020-08-02] MEDS: Nystatin Cream 15 GM TUBE 1 APPL TOPICAL ×2 (08:50→16:23)
[2020-08-02 12:22] LABS: Glucose, Whole Blood 340 mg/dL (60-115)
--- NOTE | 2020-08-02 13:48 | PC.NURSE ---
Pt participated in [facility] screen on this date, scored 28/30; results are within normal limits.
--- NOTE | 2020-08-02 14:57 | PM.NEUROCN ---
History of Present Illness Data of Consult Service Date: 08/02/20 Primary Care Provider: Unknown Physician 64 years old obese woman with remote history of pseudotumor cerebri status post lumbar peritoneal shunt, restless legs syndrome, migraine, diabetic neuropathy and periodic limb movement disorder who I had seen my office. She was also seen in [facility] recently when she presented with acute change in mental status. Now she was on psychiatric floor. Her presentation was change in mental status with paranoid and delusional behavior. When I saw her she was not in any distress and recognize me and asked appropriate questions. Review of Systems Review of Systems: Complaining of right shoulder pain that sometimes radiates up to her head causing headache. Neurologic: Reports system reviewed and no additional complaints, except as documented and Reports as per [facility] Past Medical History Medical History Brain tumor CHF (congestive heart failure) Diabetes Diabetic acetonemia HTN (hypertension) Neuropathy UTI (urinary tract infection) Surgical History Surgical History History of hysterectomy Social History Social History Household Members: Spouse Housing: Apartment Do you presently have visiting nurse or other home services: No Alcohol intake: unknown Smoking Status: Never smoker Second Hand Smoke Exposure: No Use of substances other than those prescribed or required for medical reasons: No Currently Displaying Signs/Symptoms of Drug Intoxication Withdrawal: No Any prior treatment program specific to substance use: No Have you been hit, kicked, punched, or otherwise hurt by someone within the past year? If so, by whom?: No Do you feel safe in your current relationship?: Yes Is there a partner from a previous relationship who is making you feel unsafe now?: No Are you made to feel afraid or neglected: No Spiritual Healthcare Practices: none Scientologist Healthcare Practices: none Cultural Healthcare Practices: none Advance Directives: No Advance Directives Information Provided: Yes Do you have thoughts of harming others: None Do you have a plan to hurt others: No Plan Recently lost weight without trying: No service: No Current occupational status: unemployed Sexual orientation: Straight/Heterosexual Meds Allergies Allergy/AdvReac Type Severity Reaction Status Date / Time Sulfa (Sulfonamide Allergy Severe DIFFICULTY Verified 06/23/20 15:25 Antibiotics) BREATHING [SULFA (SULFONAMIDE ANTIBIOTICS)] cephalexin [From KEFLEX] Allergy Intermediate RASH,HIVES Verified 06/23/20 15:25 amoxicillin [AMOXICILLIN] Allergy Unknown DENIES Verified 06/23/20 15:25 THIS ALLERGY 03/28/2018 penicillin V Allergy Unknown Unknown Verified 06/23/20 15:25 sumatriptan [From IMITREX] AdvReac Severe HEART Verified 06/23/20 15:25 PALPITATIONS topiramate [From TOPAMAX] AdvReac Severe AGITATION Verified 06/23/20 15:25 Penicillins [PENICILLINS] AdvReac Unknown THRUSH Verified 06/23/20 15:25 Keflex Allergy Unknown Unknown Uncoded 06/23/20 15:25 Sulfa Allergy Unknown Unknown Uncoded 06/23/20 15:25 Topamax Allergy Unknown Unknown Uncoded 06/23/20 15:25 Home Medications Medication Instructions Recorded Confirmed Type Lantus Solostar U-100 Insulin 40 unit SUBCUT BEDTIME 06/23/20 07/24/20 History atorvastatin 20 mg PO DAILY 06/23/20 07/24/20 History dicyclomine 20 mg PO TID 06/23/20 07/24/20 History insulin lispro [Humalog KwikPen 2 - 14 unit SUBCUT DIRECTED 06/23/20 07/24/20 History Insulin] nitrofurantoin macrocrystal 100 cap PO DAILY 06/23/20 07/26/20 History pantoprazole 40 mg PO BID@0630,1630 06/23/20 07/26/20 History quetiapine 25 mg PO BEDTIME 06/23/20 07/26/20 History sucralfate 1 g PO QIDACHS 06/23/20 07/28/20 History albuterol sulfate [ProAir HFA] 2 puff INHALATION QID PRN 07/28/20 07/28/20 History famotidine 20 mg PO BEDTIME 07/28/20 07/28/20 History hydrochlorothiazide 12.5 mg PO DAILY 07/28/20 07/28/20 History meclizine 25 mg PO BID PRN 07/28/20 07/28/20 History melatonin 5 mg PO BEDTIME 07/28/20 07/28/20 History oxybutynin chloride [Ditropan XL] 15 mg PO DAILY 07/28/20 07/28/20 History Physical Exam Vital Signs: Vital Signs: Last Vital Signs Temp 97.3 F 08/02/20 06:15 Pulse 80 08/02/20 06:15 Resp 16 08/02/20 06:15 BP 121/58 L 08/02/20 06:15 Pulse Ox 99 08/01/20 06:30 Body Mass Index 30.2 Alert and awake with normal spontaneity of speech fluency comprehension and affect. She was not in any distress and pleasant. She was following commands. Pupils were equal and reactive to light. Face was symmetrical. There was no obvious arm or leg weakness, tremor, or dyskinesia. He was able to walk around without difficulty. Results Labs CBC & Chem 7: 07/29/20 09:21 07/29/20 09:21 Microbiology Microbiology Results: Microbiology 07/24/20 00:00 Urine clean catch - Clean Catch Midstream Urine Culture - Final Her CT scan of brain and MRI of brain were reviewed. It revealed mild generalized central and cortical atrophy that was somewhat more pronounced in frontotemporal areas. Assessment and Plan (1) Dementia: Qualifiers: Dementia behavioral disturbance: with behavioral disturbance Dementia type: Lewy body dementia Qualified Code(s): G31.83 - Dementia with Lewy bodies; F02.81 - Dementia in other diseases classified elsewhere with behavioral disturbance Status: Acute 64 years old woman whose overall presentation is suggestive of an underlying dementing illness. More recently there has been significant psychiatric manifestations. There was no evidence of any obvious brain infection, significant vascular injury, or head injury. Imaging revealed cerebral atrophy from degeneration somewhat more pronounced in frontotemporal areas. These findings were somewhat nonspecific. They might suggest underlying tendency for frontotemporal dementia. Differential diagnosis would also include dementia with Lewy body disease, drug abuse, and underlying longstanding psychiatric illness. My yesterday's examination with her was encouraging and she was in fact much better than some of our recent interactions. This would suggest possibility of Lewy body dementia, if there was no other obvious explanation. One previous hospitalization might have been triggered by overdose. In any case, there is no specific treatment for this type of illness and generally patients are treated and symptomatic matter. She already has not been taking many of her previous medicine which was good. In my experience relatively smaller doses of a medicine like Seroquel during daytime can help with the psychiatric symptoms. Patient has this condition could be particularly sensitive to medications and their side effects.
[2020-08-02 17:14] LABS: Glucose, Whole Blood 190 mg/dL (60-115)
[2020-08-02 17:14] LABS: Glucose, Whole Blood 202 mg/dL (60-115)
[2020-08-02 18:00] VITALS: BP 133/65; PULSE 79; TEMP 36.1
[2020-08-02 21:05] LABS: Glucose, Whole Blood 327 mg/dL (60-115)
[2020-08-02] MEDS: Insulin Glargine,Hum.rec.anlog 100 UNIT/ML 10 ML VIAL 40 UNIT SUBCUT (21:55)
[2020-08-02] MEDS: QUEtiapine Fumarate 50 MG TABLET PO (21:56)
[2020-08-03] MEDS: Acetaminophen 325 MG TABLET 650 MG PO ×2 (02:06→12:38)
--- NOTE | 2020-08-03 05:10 | P.PNPSI_ITS ---
Subjective Subjective Date of Service: 08/03/20 Reason For Visit: depressed mood Interim History: Natalia is cooperative and engaged. Pleasant. Sx denial MRI neg. Other tests negative. Appreciate Neuro consult. Anticipate DC Wed,. MOCA today Review of Systems Review of Systems Complaining of right shoulder pain that sometimes radiates up to her head causing headache. Reports system reviewed and no additional complaints, except as documented and Reports as per [facility] Mental Status Exam Mental Status Exam Patient Appearance: Disheveled Patient Orientation: Person, Place, Time and Situation Level of Consciousness: Awake and Alert Patient Behavior: Appropriate and Resistive to Care Mood Description: Calm Affect Description: Calm and Apathetic Patient Cognition Impaired: Yes Ability to Follow Directions: Fair Speech Pattern: Clear Memory Description: Recent Impaired (MOCA , STM 3/5) and Immediate Intact Diagnostics Vital Signs (24Hr): Vital Signs - 24 hr 08/02/20 06:15 08/02/20 18:00 Temperature 97.3 F 97.0 F Pulse Rate 80 79 Respiratory Rate 16 Blood Pressure 121/58 L 133/65 Body Mass Index 30.2 Labs Results: 07/29/20 09:21 07/29/20 09:21 Labs: Laboratory Results - last 48 hr 07/29/20 08/01/20 08/01/20 09:21 05:58 12:34 POC Glucose 120 H 265 H HIV 1&2 Ab/P24 Ag 4thGn Nonreactive 08/01/20 08/01/20 08/02/20 17:14 20:47 06:28 POC Glucose 237 H 289 H 259 H HIV 1&2 Ab/P24 Ag 4thGn 08/02/20 08/02/20 08/02/20 12:02 16:47 16:51 POC Glucose 340 H 190 H 202 H HIV 1&2 Ab/P24 Ag 4thGn 08/02/20 21:00 POC Glucose 327 H HIV 1&2 Ab/P24 Ag 4thGn Imaging Radiology Impressions: ITS Impressions Brain MRI 07/30/20 00:00 IMPRESSION: - No acute intracranial findings. - There is global cerebral volume loss and there is mild chronic microangiopathy. - Partial loss of the V3 and V4 segments of the left vertebral artery flow void suggesting slow flow within versus partial occlusion of this vessel. Medications Medications Current Medications Generic Name Dose Route Start Last Admin Trade Name Freq PRN Reason Stop Dose Admin Acetaminophen 650 mg 07/27/20 09:17 08/03/20 02:06 Acetaminophen 325 Mg Tablet PO 650 mg RQ6H PRN Administration Headache Al Hydroxide/Mg Hydroxide 30 ml 07/27/20 17:39 Magnesium Hydrox/Alum Hydrox 30 Ml Oral.Susp PO Q6H PRN Heartburn/Nausea Atorvastatin Calcium 20 mg 07/26/20 12:15 08/02/20 08:50 Atorvastatin Calcium 20 Mg Tablet PO 20 mg DAILY FRANCHESKA Administration Baclofen 10 mg 07/26/20 15:00 08/02/20 21:56 Baclofen 10 Mg Tablet PO 10 mg TID FRANCHESKA Administration Dicyclomine HCl 20 mg 07/26/20 15:00 08/02/20 21:57 Dicyclomine Hcl 10 Mg Capsule PO 20 mg TID FRANCHESKA Administration Donepezil HCl 5 mg 07/31/20 09:00 08/02/20 08:50 Donepezil Hcl 5 Mg Tablet PO 5 mg DAILY FRANCHESKA Administration Hydroxyzine HCl 25 mg 07/27/20 17:39 08/02/20 02:01 Hydroxyzine Hcl 25 Mg Tablet PO 25 mg BEDTIME PRN Administration Anxiety Insulin Glargine 40 unit 07/25/20 21:00 08/02/20 21:55 Insulin Glargine,Hum.Rec.Anlog 100 Unit/Ml 10 Ml Vial SUBCUT 40 unit BEDTIME FRANCHESKA Administration Insulin Human Lispro 0 unit 07/26/20 16:30 08/02/20 21:46 Insulin Lispro 100 Unit/Ml 3 Ml Vial SUBCUT 8 unit QIDACHS [facility] Administration Protocol Magnesium Hydroxide 30 ml 07/27/20 17:39 Milk Of Magnesia 30 Ml Oral.Susp PO DAILY PRN Constipation Nicotine Polacrilex 2 mg 07/27/20 17:39 Nicotine Polacrilex 2 Mg Gum BUCCAL Q2H PRN Nicotine Cravings Nystatin 1 appl 08/01/20 10:15 08/02/20 16:23 Nystatin Cream 15 Gm Tube TOPICAL 1 appl BID FR[facility]KA Administration Protocol Omeprazole 20 mg 07/26/20 16:30 08/02/20 17:05 Omeprazole 20 Mg Capsule.Dr PO 20 mg BID@0630,1630 [facility] Administration Quetiapine Fumarate 50 mg 07/29/20 21:00 08/02/20 21:56 Quetiapine Fumarate 50 Mg Tablet PO 50 mg BEDTIME FRANCHESKA Administration Trazodone HCl 50 mg 07/27/20 17:39 08/01/20 02:43 Trazodone Hcl 50 Mg Tablet PO 50 mg BEDTIME PRN Administration Insomnia Allergies Allergies Allergy/AdvReac Type Severity Reaction Status Date / Time Sulfa (Sulfonamide Allergy Severe DIFFICULTY Verified 06/23/20 15:25 Antibiotics) BREATHING [SULFA (SULFONAMIDE ANTIBIOTICS)] cephalexin [From KEFLEX] Allergy Intermediate RASH,HIVES Verified 06/23/20 15:25 amoxicillin [AMOXICILLIN] Allergy Unknown DENIES Verified 06/23/20 15:25 THIS ALLERGY 03/28/2018 penicillin V Allergy Unknown Unknown Verified 06/23/20 15:25 sumatriptan [From IMITREX] AdvReac Severe HEART Verified 06/23/20 15:25 PALPITATIONS topiramate [From TOPAMAX] AdvReac Severe AGITATION Verified 06/23/20 15:25 Penicillins [PENICILLINS] AdvReac Unknown THRUSH Verified 06/23/20 15:25 Keflex Allergy Unknown Unknown Uncoded 06/23/20 15:25 Sulfa Allergy Unknown Unknown Uncoded 06/23/20 15:25 Topamax Allergy Unknown Unknown Uncoded 06/23/20 15:25 Assessment & Plan Assessment & Plan (1) Dementia: Qualifiers: Dementia behavioral disturbance: with behavioral disturbance Dementia type: Lewy body dementia Qualified Code(s): G31.83 - Dementia with Lewy bodies; F02.81 - Dementia in other diseases classified elsewhere with behavioral disturbance Status: Acute Code(s): F03.90 - Unspecified dementia without behavioral disturbance Assessment and Plan: 64 years old woman whose overall presentation is suggestive of an underlying dementing illness. More recently there has been significant psychiatric manifestations. There was no evidence of any obvious brain infection, significant vascular injury, or head injury. Imaging revealed cerebral atrophy from degeneration somewhat more pronounced in frontotemporal areas. These findings were somewhat nonspecific. They might suggest underlying tendency for frontotemporal dementia. Differential diagnosis would also include dementia with Lewy body disease, drug abuse, and underlying longstanding psychiatric illness. My yesterday's examination with her was encouraging and she was in fact much better than some of our recent interactions. This would suggest possibility of Lewy body dementia, if there was no other obvious explanation. One previous hospitalization might have been triggered by overdose. In any case, there is no specific treatment for this type of illness and generally patients are treated and symptomatic matter. She already has not been taking many of her previous medicine which was good. In my experience relatively smaller doses of a medicine like Seroquel during daytime can help with the psychiatric symptoms. Patient has this condition could be particularly sensitive to medications and their side effects. Cyrus noted. Arrange for Neuropsych testing as Outpt Greater than 50% of the session was spent on counseling and/or coordination of care
[2020-08-03 06:00] VITALS: BP 133/79; PULSE 95; TEMP 36.5
[2020-08-03 06:16] LABS: Glucose, Whole Blood 169 mg/dL (60-115)
[2020-08-03] MEDS: Atorvastatin Calcium 20 MG TABLET PO (08:24)
[2020-08-03] MEDS: Omeprazole 20 MG CAPSULE.DR PO ×2 (08:24→16:32)
[2020-08-03] MEDS: Dicyclomine HCl 10 MG CAPSULE 20 MG PO ×3 (08:25→20:38)
[2020-08-03] MEDS: Insulin Lispro 100 UNIT/ML 3 ML VIAL SUBCUT ×4 (08:25→20:39)
[2020-08-03] MEDS: Donepezil HCl 5 MG TABLET PO (08:25)
[2020-08-03] MEDS: Baclofen 10 MG TABLET PO ×3 (08:25→20:39)
[2020-08-03] MEDS: Nystatin Cream 15 GM TUBE 1 APPL TOPICAL ×2 (09:51→21:14)
[2020-08-03 12:33] LABS: Glucose, Whole Blood 338 mg/dL (60-115)
[2020-08-03] MEDS: Ibuprofen 400 MG TABLET PO ×2 (14:35→21:15)
[2020-08-03 15:18] LABS: Vitamin D 25-OH, D2 <4 ng/mL; Vitamin D 25-OH, D3 33 ng/mL; Vitamin D 25-OH, Total 33 ng/mL (30-100)
[2020-08-03 17:17] LABS: Glucose, Whole Blood 250 mg/dL (60-115)
[2020-08-03 18:00] VITALS: BP 104/51; PULSE 77; TEMP 36.2
[2020-08-03 20:36] LABS: Glucose, Whole Blood 291 mg/dL (60-115)
[2020-08-03] MEDS: QUEtiapine Fumarate 50 MG TABLET PO (20:39)
[2020-08-03] MEDS: Insulin Glargine,Hum.rec.anlog 100 UNIT/ML 10 ML VIAL 40 UNIT SUBCUT (20:40)
[2020-08-04 05:36] LABS: Glucose, Whole Blood 294 mg/dL (60-115)
[2020-08-04 05:40] VITALS: BP 130/76; PULSE 76; RESP 18; TEMP 36.3; O2SAT 100
--- NOTE | 2020-08-04 07:51 | HO.PSYCHPN ---
Subjective Subjective Date of Service: 08/04/20 Reason For Visit: depressed mood Review of Systems Reports system reviewed and no additional complaints, except as documented and Reports as per [facility] Diagnostics Vital Signs (24Hr): Vital Signs - 24 hr 08/03/20 18:00 08/04/20 05:40 Temperature 97.2 F 97.3 F Pulse Rate 77 76 Respiratory Rate 18 Blood Pressure 104/51 L 130/76 Pulse Oximetry 100 Body Mass Index 30.2 Labs Results: 07/29/20 09:21 07/29/20 09:21 Labs: Laboratory Results - last 48 hr 07/29/20 08/02/20 08/02/20 09:21 12:02 16:47 POC Glucose 340 H 190 H 25-OH Vitamin D Total 33 25-Hydroxy Vitamin D2 <4 25-Hydroxy Vitamin D3 33 08/02/20 08/02/20 08/03/20 16:51 21:00 06:07 POC Glucose 202 H 327 H 169 H 25-OH Vitamin D Total 25-Hydroxy Vitamin D2 25-Hydroxy Vitamin D3 08/03/20 08/03/20 08/03/20 12:29 16:25 20:32 POC Glucose 338 H 250 H 291 H 25-OH Vitamin D Total 25-Hydroxy Vitamin D2 25-Hydroxy Vitamin D3 08/04/20 05:32 POC Glucose 294 H 25-OH Vitamin D Total 25-Hydroxy Vitamin D2 25-Hydroxy Vitamin D3 Imaging Radiology Impressions: ITS Impressions Brain MRI 07/30/20 00:00 IMPRESSION: - No acute intracranial findings. - There is global cerebral volume loss and there is mild chronic microangiopathy. - Partial loss of the V3 and V4 segments of the left vertebral artery flow void suggesting slow flow within versus partial occlusion of this vessel. Medications Medications Current Medications Generic Name Dose Route Start Last Admin Trade Name Freq PRN Reason Stop Dose Admin Al Hydroxide/Mg Hydroxide 30 ml 07/27/20 17:39 Magnesium Hydrox/Alum Hydrox 30 Ml Oral.Susp PO Q6H PRN Heartburn/Nausea Atorvastatin Calcium 20 mg 07/26/20 12:15 08/03/20 08:24 Atorvastatin Calcium 20 Mg Tablet PO 20 mg DAILY FRANCHESKA Administration Baclofen 10 mg 07/26/20 15:00 08/03/20 20:39 Baclofen 10 Mg Tablet PO 10 mg TID FRANCHESKA Administration Dicyclomine HCl 20 mg 07/26/20 15:00 08/03/20 20:38 Dicyclomine Hcl 10 Mg Capsule PO 20 mg TID FRANCHESKA Administration Donepezil HCl 5 mg 07/31/20 09:00 08/03/20 08:25 Donepezil Hcl 5 Mg Tablet PO 5 mg DAILY FRANCHESKA Administration Hydroxyzine HCl 25 mg 07/27/20 17:39 08/02/20 02:01 Hydroxyzine Hcl 25 Mg Tablet PO 25 mg BEDTIME PRN Administration Anxiety Ibuprofen 400 mg 08/03/20 13:21 08/03/20 21:15 Ibuprofen 400 Mg Tablet PO 400 mg Q6H PRN Administration Pain, Moderate (Pain Scale 4-6 Insulin Glargine 40 unit 07/25/20 21:00 08/03/20 20:40 Insulin Glargine,Hum.Rec.Anlog 100 Unit/Ml 10 Ml Vial SUBCUT 40 unit BEDTIME RFANCHESKA Administration Insulin Human Lispro 0 unit 07/26/20 16:30 08/03/20 20:39 Insulin Lispro 100 Unit/Ml 3 Ml Vial SUBCUT 6 unit QIDACHS [facility] Administration Protocol Magnesium Hydroxide 30 ml 07/27/20 17:39 Milk Of Magnesia 30 Ml Oral.Susp PO DAILY PRN Constipation Nicotine Polacrilex 2 mg 07/27/20 17:39 Nicotine Polacrilex 2 Mg Gum BUCCAL Q2H PRN Nicotine Cravings Nystatin 1 appl 08/01/20 10:15 08/03/20 21:14 Nystatin Cream 15 Gm Tube TOPICAL 1 appl BID [facility] Administration Protocol Omeprazole 20 mg 07/26/20 16:30 08/03/20 16:32 Omeprazole 20 Mg Capsule.Dr PO 20 mg BID@0630,1630 [facility] Administration Quetiapine Fumarate 50 mg 07/29/20 21:00 08/03/20 20:39 Quetiapine Fumarate 50 Mg Tablet PO 50 mg BEDTIME FARNCHESKA Administration Trazodone HCl 50 mg 07/27/20 17:39 08/01/20 02:43 Trazodone Hcl 50 Mg Tablet PO 50 mg BEDTIME PRN Administration Insomnia Allergies Allergies Allergy/AdvReac Type Severity Reaction Status Date / Time Sulfa (Sulfonamide Allergy Severe DIFFICULTY Verified 06/23/20 15:25 Antibiotics) BREATHING [SULFA (SULFONAMIDE ANTIBIOTICS)] cephalexin [From KEFLEX] Allergy Intermediate RASH,HIVES Verified 06/23/20 15:25 amoxicillin [AMOXICILLIN] Allergy Unknown DENIES Verified 06/23/20 15:25 THIS ALLERGY 03/28/2018 penicillin V Allergy Unknown Unknown Verified 06/23/20 15:25 sumatriptan [From IMITREX] AdvReac Severe HEART Verified 06/23/20 15:25 PALPITATIONS topiramate [From TOPAMAX] AdvReac Severe AGITATION Verified 06/23/20 15:25 Penicillins [PENICILLINS] AdvReac Unknown THRUSH Verified 06/23/20 15:25 Keflex Allergy Unknown Unknown Uncoded 06/23/20 15:25 Sulfa Allergy Unknown Unknown Uncoded 06/23/20 15:25 Topamax Allergy Unknown Unknown Uncoded 06/23/20 15:25 Assessment & Plan Greater than 50% of the session was spent on counseling and/or coordination of care
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
[2020-08-04] MEDS: Insulin Lispro 100 UNIT/ML 3 ML VIAL SUBCUT ×2 (08:31→12:23)
[2020-08-04] MEDS: Omeprazole 20 MG CAPSULE.DR PO (08:32)
[2020-08-04] MEDS: Dicyclomine HCl 10 MG CAPSULE 20 MG PO (08:32)
[2020-08-04] MEDS: Baclofen 10 MG TABLET PO (08:33)
[2020-08-04] MEDS: Donepezil HCl 5 MG TABLET PO (08:33)
[2020-08-04] MEDS: Atorvastatin Calcium 20 MG TABLET PO (08:34)
[2020-08-04] MEDS: Nystatin Cream 15 GM TUBE 1 APPL TOPICAL (08:35)
[2020-08-04] MEDS: Ibuprofen 400 MG TABLET PO (10:48)
[2020-08-04 12:23] LABS: Glucose, Whole Blood 229 mg/dL (60-115)
== END 2020-08-04 14:21 | disposition home or self-care (01) | DRG 56 ==
LOC: HO.ED 07-26 02:35 → HO.PM5 07-27 17:34
PROVIDERS: Nurse Practitioner Family; Physician Assistant; Admitting Provider Psychiatry & Neurology Psychiatry; Emergency Provider Internal Medicine; Visit Provider Psychiatry & Neurology Psychiatry
DX: G31.83 Neurocognitive disorder with Lewy bodies (principal); G92 Toxic encephalopathy; N39.0 Urinary tract infection, site not specified; F02.81 Dementia in other diseases classified elsewhere, unspecified severity, with behavioral disturbance; E11.42 Type 2 diabetes mellitus with diabetic polyneuropathy; E66.9 Obesity, unspecified; Z68.30 Body mass index [BMI] 30.0-30.9, adult; Z20.828 Contact with and (suspected) exposure to other viral communicable diseases; Z87.440 Personal history of urinary (tract) infections; Z88.0 Allergy status to penicillin; Z88.2 Allergy status to sulfonamides; Z79.4 Long term (current) use of insulin; Z79.891 Long term (current) use of opiate analgesic; Z79.899 Other long term (current) drug therapy
CPT/HCPCS: 36415; 70551; 80048; 80053; 80061; 80076; 80307; 80320; 81001; 82248; 82306; 82607; 82746; 82947; 83036; 84443; 85025; 86618; 86780; 87086; 87389; 87635; 87900; 87901; 99223; 99232; 99239; 99285

== ENCOUNTER 2020-08-07 02:21 | Emergency (ER) | payer MEDICARE, SELFPAY ==
[2020-08-07 02:24] VITALS: BP 143/71; PULSE 76; RESP 16; TEMP 36.2; O2SAT 98; BMI 28.3
--- NOTE | 2020-08-07 02:31 | ED_ITS ---
HPI - Extremity Problem General Chief complaint: Extremity Injury, Upper Stated complaint: Shoulder pain Time Seen by Provider: 08/07/20 02:31 Source: patient Mode of arrival: ambulatory Limitations: no limitations History of Present Illness HPI Narrative: apparently patient fell 2 weeks ago hitting her right shoulder to the metal pole had a x-ray done here which was negative patient was at later admitted in [facility] for and discharged yesterday since she left home complaining of increased pain in right shoulder MD Complaint: extremity pain Onset (ago): week(s) (2) Pain Consistency: constant Location: right Relieving factors: movement Exacerbating factors: nothing Associated symptoms: denies other symptoms Related Data Previous Rx's Medication Instructions Recorded Lantus Solostar U-100 Insulin 40 unit SUBCUT BEDTIME 30 Days #10 08/04/20 ml albuterol sulfate [ProAir HFA] 2 puff INHALATION QID PRN 30 Days 08/04/20 #2 g atorvastatin 20 mg PO DAILY 30 Days #30 tab 08/04/20 baclofen 10 mg PO TID 30 Days #90 tab 08/04/20 donepezil 5 mg PO DAILY 30 Days #30 tab 08/04/20 insulin lispro [Humalog KwikPen 2 - 14 unit SUBCUT DIRECTED 30 08/04/20 Insulin] Days #10 ml meclizine 25 mg PO BID PRN 30 Days #0 tab 08/04/20 nystatin 1 appl TOPICAL BID 30 Days #1 g 08/04/20 oxybutynin chloride 15 mg PO DAILY 30 Days #30 tab 08/04/20 pantoprazole 40 mg PO BID@0630,1630 30 Days #30 08/04/20 tab quetiapine 50 mg PO BEDTIME 30 Days #30 tab 08/04/20 prednisone 40 mg PO DAILY 5 Days #10 tab 08/07/20 tramadol 50 mg PO Q6H PRN #20 tab 08/07/20 Allergies Allergy/AdvReac Type Severity Reaction Status Date / Time Sulfa (Sulfonamide Allergy Severe DIFFICULTY Verified 08/07/20 02:31 Antibiotics) BREATHING [SULFA (SULFONAMIDE ANTIBIOTICS)] cephalexin [From KEFLEX] Allergy Intermediate RASH,HIVES Verified 08/07/20 02:31 amoxicillin [AMOXICILLIN] Allergy Unknown DENIES Verified 08/07/20 02:31 THIS ALLERGY 03/28/2018 penicillin V Allergy Unknown Unknown Verified 08/07/20 02:31 sumatriptan [From IMITREX] AdvReac Severe HEART Verified 08/07/20 02:31 PALPITATIONS topiramate [From TOPAMAX] AdvReac Severe AGITATION Verified 08/07/20 02:31 Penicillins [PENICILLINS] AdvReac Unknown THRUSH Verified 08/07/20 02:31 Keflex Allergy Unknown Unknown Uncoded 06/23/20 15:25 Sulfa Allergy Unknown Unknown Uncoded 06/23/20 15:25 Topamax Allergy Unknown Unknown Uncoded 06/23/20 15:25 Review of Systems Review of Systems: Yes all other systems are reviewed and are negative [facility] Past Medical History Medical History Brain tumor CHF (congestive heart failure) Diabetes Diabetic acetonemia HTN (hypertension) Neuropathy UTI (urinary tract infection) Surgical History History of hysterectomy Social History Social History Household Members: Spouse Housing: Apartment Alcohol intake: unknown Smoking Status: Never smoker Second Hand Smoke Exposure: No Advance Directives: No Advance Directives Information Provided: No service: No Current occupational status: unemployed Sexual orientation: Straight/Heterosexual Physical Exam Vital Signs: Vital Signs: Last Vital Signs Temp 97.1 F 08/07/20 02:24 Pulse 76 08/07/20 02:24 Resp 16 08/07/20 02:24 BP 143/71 H 08/07/20 02:24 Pulse Ox 98 08/07/20 02:24 Body Mass Index 28.3 Const: General: cooperative, healthy appearing and comfortable Extrem: General: Yes normal to inspection Right upper extremity: normal to inspection and shoulder/upper arm ( tender at rotator cuff limited abduction with increased pain) Details: normal to inspection and tenderness MDM - Extremity (Nontraumatic) MDM Narrative Medical decision making narrative: patient with right rotator cuff tendinitis got worse after injuring 2 weeks ago x-ray was negative will discharge her home on prednisone and tramadol Discharge Plan Discharge Clinical Impression: Tendinitis of right rotator cuff Patient Disposition: Home, Self-Care Instructions: Rotator Cuff Tendinitis (ED) Prescriptions: New prednisone 20 mg tablet 40 mg PO DAILY 5 Days Qty: 10 RF: 0 tramadol 50 mg tablet 50 mg PO Q6H PRN (Reason: pain) Qty: 20 RF: 0 No Action donepezil 5 mg Tablet 5 mg PO DAILY 30 Days Qty: 30 RF: 0 baclofen 10 mg Tablet 10 mg PO TID 30 Days Qty: 90 RF: 0 nystatin 100,000 unit/gram Cream 1 appl topical BID 30 Days Qty: 1 RF: 0 quetiapine 50 mg Tablet 50 mg PO BEDTIME 30 Days Qty: 30 RF: 0 oxybutynin chloride 15 mg Tablet Extended Release 24hr 15 mg PO DAILY 30 Days Qty: 30 RF: 0 atorvastatin 20 mg tablet 20 mg PO DAILY 30 Days Qty: 30 RF: 0 meclizine 25 mg Tablet 25 mg PO BID PRN (Reason: Dizziness) 30 Days Qty: 0 RF: 0 pantoprazole 40 mg tablet,delayed release (DR/EC) 40 mg PO BID@0630,1630 30 Days Qty: 30 RF: 0 albuterol sulfate [ProAir HFA] 90 mcg/actuation Hfa Aerosol Inhaler 2 puff INHALATION QID PRN (Reason: Wheezing) 30 Days Qty: 2 RF: 0 insulin lispro [Humalog KwikPen Insulin] 100 unit/mL insulin pen 2 - 14 unit subcut DIRECTED 30 Days Qty: 10 RF: 0 Lantus Solostar U-100 Insulin 100 unit/mL (3 mL) insulin pen 40 unit subcut BEDTIME 30 Days Qty: 10 RF: 0 Interventions: ED Discharge Assessment Last Done: 08/07/20 03:10 Discharge Date/Time: 08/07/20 03:16
--- NOTE | 2020-08-07 02:33 | PC.NURSE ---
PT TO ROOM #11 WITH C/O R SHOULDER PAIN AFTER FALLING INTO POLE 2 WKS AGO. PT C/O PAIN TO AREA. PT ARRIVES ALERT, RESPIRATIONS EASY, N/L. SKIN W/D. PT AWAITING FOR MDLS EVAL.
[2020-08-07] MEDS: Ketorolac Tromethamine 60 MG/2 ML VIAL IM (02:53)
[2020-08-07] MEDS: predniSONE 20 MG TABLET 40 MG PO (02:53)
[2020-08-07] MEDS: traMADoL HCL 50 MG TABLET PO (02:54)
== END 2020-08-07 03:16 | disposition home or self-care (01) ==
LOC: HO.ED 03:16
PROVIDERS: Emergency Provider Internal Medicine
DX: M75.81 Other shoulder lesions, right shoulder (principal); E11.9 Type 2 diabetes mellitus without complications; I11.0 Hypertensive heart disease with heart failure; I50.9 Heart failure, unspecified; Z79.4 Long term (current) use of insulin; Z79.899 Other long term (current) drug therapy
CPT/HCPCS: 96372; 99283; 99284; J1885

== ENCOUNTER → 2020-09-01 08:40 | Outpatient (BNVA) | payer MEDICARE, SELFPAY | PROVIDERS: Visit Provider Orthopaedic Surgery | DX: M25.511 Pain in right shoulder (principal) | CPT/HCPCS: 99202; J1040 ==

== ENCOUNTER 2020-09-08 21:34 | Emergency (ER) | payer MEDICARE, SELFPAY | END 2020-09-09 00:21 | disposition left against medical advice (07) | PROVIDERS: Emergency Provider Emergency Medicine | DX: R05 Cough (principal) ==

== ENCOUNTER → 2020-09-29 12:48 | Outpatient (BNVA) | payer MEDICARE, SELFPAY | PROVIDERS: PCP Pediatrics; Visit Provider Orthopaedic Surgery | DX: Z76.89 Persons encountering health services in other specified circumstances (principal) | CPT/HCPCS: 99212 ==

== ENCOUNTER → 2020-10-12 12:34 | Outpatient (BNVA) | payer MEDICARE, OTHER, SELFPAY | PROVIDERS: PCP Pediatrics; Visit Provider Orthopaedic Surgery | DX: M65.331 Trigger finger, right middle finger (principal) | CPT/HCPCS: 20550; 99202; J1100 ==

== ENCOUNTER 2020-10-22 13:37 | Outpatient (REF) | payer MEDICARE, SELFPAY ==
--- NOTE | ~2020-10-22 | XR_ITS ---
EXAMINATION: XR CHEST CLINICAL INFORMATION: Cough COMPARISON: Chest radiographs 06/23/2020, 11/07/2019, 08/26/2019 TECHNIQUE: 2 views of the chest were obtained. FINDINGS: There is small airspace opacity right suprahilar region. The remainder the lungs are clear. There is no lobar or segmental airspace consolidation or effusion. The vascularity is normal. The costophrenic sulci are clear. The heart is normal in size. The hilar and mediastinal contours and bony structures are stable. XR/XR chest 2V IMPRESSION: 1. Small airspace opacity right suprahilar region. 2. No lobar or segmental consolidation or effusion.
== END 2020-10-22 13:38 | disposition home or self-care (01) ==
LOC: HO.XRAY 13:37
PROVIDERS: Absent Provider Internal Medicine; PCP Internal Medicine; Visit Provider Internal Medicine
DX: R05 Cough (principal)
CPT/HCPCS: 71046

== ENCOUNTER 2020-10-28 14:22 | Outpatient (REF) | payer MEDICARE, SELFPAY ==
--- NOTE | ~2020-10-28 | MR_ITS ---
EXAMINATION: MR CERVICAL SPINE WITHOUT CONTRAST CLINICAL INFORMATION: Severe neck pain. COMPARISON: CT scan of the cervical spine 02/12/2019. MRI scan of the cervical spine 02/10/2016. TECHNIQUE: MRI of the cervical spine was obtained using routine sequences without contrast. FINDINGS: VERTEBRAL BODIES AND PARASPINAL SOFT TISSUES: There is a mild anterolisthesis of C6 on C7. Alignment of the vertebral bodies is otherwise anatomic. There are sequelae of instrumented posterior decompressions and fusions in the thoracic spine, which are partially demonstrated on the current study. The hardware from the surgery causes susceptibility artifact. The hardware is better evaluated on the prior CT cervical spine. Intervertebral disc heights are maintained, but there is diffuse loss of signal consistent with disc desiccation. The vertebral bodies of normal height and contour and no fractures are demonstrated. Overall, marrow signal is homogenous. The visualized paravertebral structures are unremarkable. CERVICOMEDULLARY JUNCTION AND VISUALIZED POSTERIOR FOSSA: The craniocervical and posterior fossa structures are normal. Accounting for artifact, spinal cord signal appears normal. SPINAL LEVELS: C2-C3: There is mild left facet arthropathy. Posterior disc contour is normal. There is no central stenosis or spinal cord compression. The neural foramina are patent bilaterally. C3-C4: There is mild bilateral facet arthropathy. There is a broad-based posterior disc protrusion which effaces CSF ventral to the spinal cord without spinal cord compression or central stenosis. The neural foramina are patent bilaterally. C4-C5: There is mild bilateral facet arthropathy. There is a small central and right paracentral soft disc protrusion with minimal distortion of the ventral thecal sac. There is no spinal cord compression or central stenosis. There is mild right foraminal narrowing. C5-C6: There is mild bilateral facet arthropathy. There is a small left paracentral disc protrusion with minimal distortion of the ventral thecal sac there is no central stenosis or spinal cord compression. The neural foramina are patent bilaterally. C6-C7: There is moderate left and mild right facet arthropathy. There is a broad-based posterior disc protrusion. There is no spinal cord compression or central stenosis. The neural foramina appear patent. C7-T1: Imaging at this level is degraded by susceptibility artifact from the hardware. However, posterior disc contour appears normal. There is no spinal cord compression, and the neural foramina appear patent bilaterally. MR/MR cervical spine wo con IMPRESSION: 1. There are sequelae of instrumented posterior decompressions and fusions in the upper thoracic spine, which are partially visualized. These are demonstrated in better detail on prior CT scan. 2. At C4-C5 there is facet arthropathy. There is a small central and right paracentral disc protrusion without spinal cord compression or central stenosis. There is mild right foraminal narrowing. 3. There are facet arthropathic changes and spondylosis at multiple other levels, without central stenosis or spinal cord compression. The neural foramina are patent.
== END 2020-10-28 14:23 | disposition home or self-care (01) ==
LOC: HO.MRI 14:22
PROVIDERS: Visit Provider Physician Assistant
DX: M54.2 Cervicalgia (principal)
CPT/HCPCS: 72141

== ENCOUNTER 2020-11-12 20:39 | Emergency (ER) | payer MEDICARE, SELFPAY ==
--- NOTE | ~2020-11-12 | XR_ITS ---
EXAMINATION: XR CHEST CLINICAL INFORMATION: Cough COMPARISON: 10/22/2020 TECHNIQUE: 2 views of the chest were obtained. FINDINGS: Normal symmetric lung volumes. No parenchymal consolidation. No pleural effusion. No pneumothorax. Cardiomediastinal silhouette and pulmonary vascularity are within normal limits. No acute osseous abnormalities. Posterior instrumented spinal fusion, upper thoracic spine. XR/XR chest 2V IMPRESSION: No acute findings.
[2020-11-12 20:41] VITALS: BP 204/108; PULSE 98; RESP 24; TEMP 36.9; O2SAT 97; BMI 37.8
--- NOTE | 2020-11-12 21:05 | ECG_ITS ---
Test Reason : DIFFICULTY BREATHING Blood Pressure : / mmHG Vent. Rate : 088 BPM Atrial Rate : 088 BPM P-R Int : 124 ms QRS Dur : 096 ms QT Int : 366 ms P-R-T Axes : 047 037 005 degrees QTc Int : 442 ms Normal sinus rhythm Possible Inferior infarct , age undetermined Abnormal ECG When compared with ECG of 27-JUL-2020 13:13, No significant change was found Referred By: Mei Washburn Electronically Signed By:Jose Otero
[2020-11-12 21:46] LABS: MANUAL DIFF FLAG NO
[2020-11-12 21:47] LABS: Basophils Absolute Auto 0.1 X10*3/uL (0.0-0.2); Basophils Percent Auto 0.5 % (0-2); Eosinophils Absolute Auto 0.3 X10*3/uL (0.0-0.4); Eosinophils Percent Auto 2.7 % (0-4); Hematocrit 38.2 % (37-47); Hemoglobin 12.8 g/dl (12.0-16.0); Imm Gran Abs Auto 0.09 X10*3/uL (0.00-0.03); Imm Gran Pct Auto 0.7 % (0.0-0.4); Lymphocytes Absolute Auto 2.7 X10*3/uL (1.2-4.9); Lymphocytes Percent Auto 22.4 % (20-40); Mean Corpuscular HGB Conc 33.5 g/dl (31.0-35.0); Mean Corpuscular Hemoglobin 31.6 pg (27.0-33.0); Mean Corpuscular Volume 94.3 fL (80-98); Mean Platelet Volume 9.3 fL (9.4-12.3); Monocytes Percent Auto 8.2 % (2-11); Neutrophils Absolute Auto 7.9 X10*3/uL (2.0-8.3); Neutrophils Percent Auto 65.5 % (45-73); Platelet Count 263 X10*3/uL (160-400); Red Blood Count 4.05 X10*6/uL (4.20-5.50); Red Cell Distribution Width 12.9 % (11.0-16.0); White Blood Count 12.1 X10*3/uL (4.8-10.8)
[2020-11-12 21:54] LABS: Prothrombin Time 11.6 SEC (10.8-13.0)
[2020-11-12 22:00] LABS: Glucose Urine UA NEG (NEG); Leukocyte Esterase Urine 1+ (NEG); Nitrite Urine NEG (NEG); PH 5.5 (5.0-8.0); Specific Gravity - Urine 1.025 (1.005-1.025); UACC Culture Trigger YES; Urine Blood NEG (NEG); Urine Ketones NEG (NEG); Urine Protein TRACE MG/DL (NEG-TRACE)
[2020-11-12 22:07] LABS: Appearance Urine HAZY; Color Urine YELLOW
--- NOTE | 2020-11-12 22:07 | ED.SOB ---
HPI - SOB/Dyspnea General Chief Complaint: Dyspnea Stated Complaint: sob Time Seen by Provider: 11/12/20 21:04 Source: patient Mode of arrival: ambulatory History of Present Illness HPI Narrative: This is a 64-year-old female who presents with 3 months of shortness of breath with multiple evaluations by her primary care providers and recently referred to a venetian blind cleaner and repairer 2 days ago. Patient states that she is supposed to be on nasal cannula oxygen at home, but has not consistently been wearing despite endorsing that she has been short of breath for 2-3 months. Patient states that she has had no changes in her symptoms over the past 2-3 months but just wants some answers as she is tired of feeling short of breath. She states she has had a cough with whitish sputum but denies any change in pillow usage. She states that she has never been informed of having COPD. Related Data Previous Rx's Medication Instructions Recorded Lantus Solostar U-100 Insulin 40 unit SUBCUT BEDTIME 30 Days #10 08/04/20 ml albuterol sulfate [ProAir HFA] 2 puff INHALATION QID PRN 30 Days 08/04/20 #2 g atorvastatin 20 mg PO DAILY 30 Days #30 tab 08/04/20 baclofen 10 mg PO TID 30 Days #90 tab 08/04/20 donepezil 5 mg PO DAILY 30 Days #30 tab 08/04/20 insulin lispro [Humalog KwikPen 2 - 14 unit SUBCUT DIRECTED 30 08/04/20 Insulin] Days #10 ml meclizine 25 mg PO BID PRN 30 Days #0 tab 08/04/20 nystatin 1 appl TOPICAL BID 30 Days #1 g 08/04/20 oxybutynin chloride 15 mg PO DAILY 30 Days #30 tab 08/04/20 pantoprazole 40 mg PO BID@0630,1630 30 Days #30 08/04/20 tab ciprofloxacin HCl [Cipro] 250 mg PO Q12H 3 Days #6 tab 11/13/20 Allergies Allergy/AdvReac Type Severity Reaction Status Date / Time Sulfa (Sulfonamide Allergy Severe DIFFICULTY Verified 11/12/20 20:47 Antibiotics) BREATHING [SULFA (SULFONAMIDE ANTIBIOTICS)] cephalexin [From KEFLEX] Allergy Intermediate RASH,HIVES Verified 11/12/20 20:47 amoxicillin [AMOXICILLIN] Allergy Unknown DENIES Verified 11/12/20 20:47 THIS ALLERGY 03/28/2018 penicillin V Allergy Unknown Unknown Verified 11/12/20 20:47 sumatriptan [From IMITREX] AdvReac Severe HEART Verified 11/12/20 20:47 PALPITATIONS topiramate [From TOPAMAX] AdvReac Severe AGITATION Verified 11/12/20 20:47 Penicillins [PENICILLINS] AdvReac Unknown THRUSH Verified 11/12/20 20:47 Keflex Allergy Unknown Unknown Uncoded 06/23/20 15:25 Sulfa Allergy Unknown Unknown Uncoded 06/23/20 15:25 Topamax Allergy Unknown Unknown Uncoded 06/23/20 15:25 PMFSH Past Medical History Source: nursing notes reviewed Medical History Asthma Brain tumor CHF (congestive heart failure) Diabetes Diabetic acetonemia HTN (hypertension) Neuropathy UTI (urinary tract infection) Surgical History History of hysterectomy Social History Social History Household Members: Spouse Housing: Apartment Alcohol intake: unknown Smoking Status: Never smoker Second Hand Smoke Exposure: No Advance Directives: No Advance Directives Information Provided: Yes service: No Current occupational status: unemployed and disabled Current occupation: right handed Sexual orientation: Straight/Heterosexual Physical Exam Vital Signs: Vital Signs: Last Vital Signs Temp 98.7 F 11/12/20 23:31 Pulse 80 11/12/20 23:47 Resp 20 11/12/20 23:31 BP 145/90 H 11/12/20 23:47 Pulse Ox 97 11/12/20 23:31 Body Mass Index 37.8 VITAL SIGNS: Reviewed. GENERAL: Morbidly obese, Well developed, well nourished, in no acute distress. NOSE: Nares patent bilateral OROPHARYNX: no oral lesions noted, posterior pharynx clear NECK: Supple, no adenopathy LUNGS: Normal breath sounds. No adventitious sounds or accessory muscle use. SpO2<97> CARDIOVASCULAR: Regular rate and rhythm without noted murmurs, no JVD or lower extremity edema. ABDOMEN: Obese, Soft, non-tender, non-distended with bowel sounds. SKIN: Inspection of the skin reveals no rashes NEUROLOGIC: Alert and oriented x 4. Course Course Course Narrative: This is a 64-year-old female with history and clinical presentation consistent with chronic shortness of breath and on review of all records no evidence of COPD history/diagnosis and patient states that her ?asthma medication? was recently discontinued by her primary care provider. Patient states she was seen 2 days ago and provided a referral for pulmonology for further evaluation of her ongoing respiratory symptoms as there have been no acute changes.. On review of all investigations there are no acute findings to suggest pneumonia, heart failure, and on re-evaluation blood pressure has resolved spontaneously prompting the Norvasc to be held. There is no history or clinical suggestion of cardiac ischemia and no noted changes on EKG. Patient was noted to have a UTI and will be treated with initially on antibiotics here in the emergency department and then discharged on remaining course. In addition, patient will be provided with a short course of steroids with strict instructions to keep her scheduled primary care provider appointment that she has this coming Sunday. She was also encouraged to utilize the oxygen that is prescribed for her and that the steroids that she will be receiving will cause her sugars and blood pressure to increase and she should continue to monitor. MDM - SOB/Dyspnea Lab Data Result diagrams: 11/12/20 21:37 11/12/20 21:37 Labs: Lab Results 11/12/20 11/12/20 11/12/20 Range/Units 21:37 21:37 21:37 WBC 12.1 H (4.8-10.8) X10*3/uL RBC 4.05 L (4.20-5.50) X10*6/uL Hgb 12.8 (12.0-16.0) g/dl Hct 38.2 (37-47) % MCV 94.3 (80-98) fL MCH 31.6 (27.0-33.0) pg MCHC 33.5 (31.0-35.0) g/dl RDW 12.9 (11.0-16.0) % Plt Count 263 (160-400) X10*3/uL MPV 9.3 L (9.4-12.3) fL Immature Gran % (Auto) 0.7 H (0.0-0.4) % Neut % (Auto) 65.5 (45-73) % Lymph % (Auto) 22.4 (20-40) % Fountain % (Auto) 8.2 (2-11) % Eos % (Auto) 2.7 (0-4) % Baso % (Auto) 0.5 (0-2) % Lymph # (Auto) 2.7 (1.2-4.9) X10*3/uL Fountain # (Auto) 1.0 (0.1-1.2) X10*3/uL Eos # (Auto) 0.3 (0.0-0.4) X10*3/uL Baso # (Auto) 0.1 (0.0-0.2) X10*3/uL Abs Immat Gran (auto) 0.09 H (0.00-0.03) X10*3/uL Absolute Neuts (auto) 7.9 (2.0-8.3) X10*3/uL Absolute Nucleated RBC 0.000 (0.0-0.012) X10*3/uL Nucleated RBC % (auto) 0.0 (0.0-0.2) /100WBC PT 11.6 (10.8-13.0) SEC INR 1.0 (0.9-1.1) Sodium 143 (135-145) mmol/L Potassium 4.0 (3.3-5.1) mmol/L Chloride 108 (96-108) mmol/L Carbon Dioxide 25 (22-29) mmol/L Anion Gap 14 (12-20) BUN 26 H D (9-16) mg/dL Creatinine 0.78 (0.5-1.4) mg/dL Estim Creat Clear Calc 76.7 Estimated GFR > 60 Random Glucose 114 D (60-115) mg/dL Lactic Acid (0.5-2.0) mmol/L Calcium 9.7 (8.4-10.2) mg/dL Total Bilirubin 0.2 (0.0-1.0) mg/dL AST 14 (5-31) U/L ALT 18 (0-31) U/L Alkaline Phosphatase 90 D (39-117) U/L B-Natriuretic Peptide (<100) pg/mL Total Protein 7.0 (6.5-8.0) g/dL Albumin 4.2 (3.5-5.0) g/dL Urine Color Urine Appearance Urine pH (5.0-8.0) Ur Specific [place] (1.005-1.025) Urine Protein (NEG-TRACE) MG/DL Urine Glucose (UA) (NEG) MG/DL Urine Ketones (NEG) MG/DL Urine Blood (NEG) Urine Nitrite (NEG) Ur Leukocyte Esterase (NEG) Urine RBC (0) /HPF Urine WBC (0-4) /HPF Urine WBC Clumps Ur Squamous Epith Cells /LPF Urine Bacteria /LPF Urine Mucus /LPF Urine Yeast /HPF 11/12/20 11/12/20 11/12/20 Range/Units 21:37 21:37 21:51 WBC (4.8-10.8) X10*3/uL RBC (4.20-5.50) X10*6/uL Hgb (12.0-16.0) g/dl Hct (37-47) % MCV (80-98) fL MCH (27.0-33.0) pg MCHC (31.0-35.0) g/dl RDW (11.0-16.0) % Plt Count (160-400) X10*3/uL MPV (9.4-12.3) fL Immature Gran % (Auto) (0.0-0.4) % Neut % (Auto) (45-73) % Lymph % (Auto) (20-40) % Fountain % (Auto) (2-11) % Eos % (Auto) (0-4) % Baso % (Auto) (0-2) % Lymph # (Auto) (1.2-4.9) X10*3/uL [place] # (Auto) (0.1-1.2) X10*3/uL Eos # (Auto) (0.0-0.4) X10*3/uL Baso # (Auto) (0.0-0.2) X10*3/uL Abs Immat Gran (auto) (0.00-0.03) X10*3/uL Absolute Neuts (auto) (2.0-8.3) X10*3/uL Absolute Nucleated RBC (0.0-0.012) X10*3/uL Nucleated RBC % (auto) (0.0-0.2) /100WBC PT (10.8-13.0) SEC INR (0.9-1.1) Sodium (135-145) mmol/L Potassium (3.3-5.1) mmol/L Chloride (96-108) mmol/L Carbon Dioxide (22-29) mmol/L Anion Gap (12-20) BUN (9-16) mg/dL Creatinine (0.5-1.4) mg/dL Estim Creat Clear Calc Estimated GFR Random Glucose (60-115) mg/dL Lactic Acid 1.4 (0.5-2.0) mmol/L Calcium (8.4-10.2) mg/dL Total Bilirubin (0.0-1.0) mg/dL AST (5-31) U/L ALT (0-31) U/L Alkaline Phosphatase (39-117) U/L B-Natriuretic Peptide 47 (<100) pg/mL Total Protein (6.5-8.0) g/dL Albumin (3.5-5.0) g/dL Urine Color YELLOW Urine Appearance HAZY Urine pH 5.5 (5.0-8.0) Ur Specific [place] 1.025 (1.005-1.025) Urine Protein TRACE (NEG-TRACE) MG/DL Urine Glucose (UA) NEG (NEG) MG/DL Urine Ketones NEG (NEG) MG/DL Urine Blood NEG (NEG) Urine Nitrite NEG (NEG) Ur Leukocyte Esterase 1+ H (NEG) Urine RBC 0 (0) /HPF Urine WBC 10-14 H (0-4) /HPF Urine WBC Clumps NOTED Ur Squamous Epith Cells 1+ /LPF Urine Bacteria TRACE /LPF Urine Mucus 1+ /LPF Urine Yeast 2+ /HPF ECG Data Attestation: I personally reviewed and interpreted this ECG as follows: Prior ECG tracings: available for review (07/27/2020 no acute changes on comparison) Interpretation: Normal sinus rhythm, HR -88, no evidence of acute ischemia, SD/QRS/QTC are within normal limits. Discharge Plan Discharge Clinical Impression: Chronic dyspnea Patient Disposition: Home, Self-Care Instructions: Using Oxygen at Home (ED), Dyspnea Scale and Exercise (ED) Additional Instructions: 1. Please follow-up with your primary care provider as scheduled this next week. 2. Continue all home medications as prescribed. 3. You have been started on a short course of steroids which will increase your sugar levels as well as your blood pressure. 4. Please utilize your home oxygen as prescribed for additional symptom relief. Do not hesitate to return to this emergency department should you experience any worsening/change in symptoms. Prescriptions: New ciprofloxacin HCl [Cipro] 250 mg tablet 250 mg PO Q12H 3 Days Qty: 6 RF: 0 No Action donepezil 5 mg Tablet 5 mg PO DAILY 30 Days Qty: 30 RF: 0 baclofen 10 mg Tablet 10 mg PO TID 30 Days Qty: 90 RF: 0 nystatin 100,000 unit/gram Cream 1 appl topical BID 30 Days Qty: 1 RF: 0 oxybutynin chloride 15 mg Tablet Extended Release 24hr 15 mg PO DAILY 30 Days Qty: 30 RF: 0 atorvastatin 20 mg tablet 20 mg PO DAILY 30 Days Qty: 30 RF: 0 meclizine 25 mg Tablet 25 mg PO BID PRN (Reason: Dizziness) 30 Days Qty: 0 RF: 0 pantoprazole 40 mg tablet,delayed release (DR/EC) 40 mg PO BID@0630,1630 30 Days Qty: 30 RF: 0 albuterol sulfate [ProAir HFA] 90 mcg/actuation Hfa Aerosol Inhaler 2 puff INHALATION QID PRN (Reason: Wheezing) 30 Days Qty: 2 RF: 0 insulin lispro [Humalog KwikPen Insulin] 100 unit/mL insulin pen 2 - 14 unit subcut DIRECTED 30 Days Qty: 10 RF: 0 Lantus Solostar U-100 Insulin 100 unit/mL (3 mL) insulin pen 40 unit subcut BEDTIME 30 Days Qty: 10 RF: 0 Referrals: Chris Rodriguez MD [Primary Care Provider] - 2 days (Re-evaluation and outpatient management for reported chronic shortness of breath for 2-3 months and patient report that she has been taken off of her asthma medication. Evaluation in the emergency department was negative for evidence of CHF, pneumonia, GARY, and there were no EKG changes. She was treated for a UTI.) Arlette Fuller MD [Physician] - 2 days (Re-evaluation and outpatient management for reported chronic shortness of breath for 2-3 months and patient report that she has been taken off of her asthma medication. Evaluation in the emergency department was negative for evidence of CHF, pneumonia, GARY, and there were no EKG changes. She was treated for a UTI.)
[2020-11-12 22:10] LABS: Lactic Acid 1.4 mmol/L (0.5-2.0)
[2020-11-12 22:15] LABS: Alanine Aminotransferase 18 U/L (0-31); Albumin Level 4.2 g/dL (3.5-5.0); Alkaline Phosphatase 90 U/L (39-117); Anion Gap 14 (12-20); Aspartate Amino Transferase 14 U/L (5-31); Bilirubin Total 0.2 mg/dL (0.0-1.0); Blood Urea Nitrogen 26 mg/dL (9-16); Calcium 9.7 mg/dL (8.4-10.2); Carbon Dioxide 25 mmol/L (22-29); Chloride 108 mmol/L (96-108); Creatinine Clr Calc Pharmacy 76.7; Estimated Glomerular Filt Rate > 60; Glucose Random 114 mg/dL (60-115); Sodium 143 mmol/L (135-145)
[2020-11-12 22:18] LABS: Bacteria Urine TRACE /LPF; Mucus Urine 1+ /LPF; RBC Urine 0 /HPF (0); Squamous Epithelial Cell Urine 1+ /LPF; WBC Clumps Urine NOTED
--- NOTE | 2020-11-12 22:36 | PC.NURSE ---
pt resting in bed, has been evaluated by provider. pt resting and in no distress, even following ambulation to bathroom.
[2020-11-12 23:05] LABS: B Type Natriuretic Peptide 47 pg/mL (<100)
[2020-11-12 23:31] VITALS: BP 145/62; PULSE 93; RESP 20; TEMP 37.1; O2SAT 97
[2020-11-12 23:47] VITALS: BP 145/90; PULSE 80
[2020-11-12] MEDS: levoFLOXacin 250 MG TABLET PO (23:49)
[2020-11-13] MEDS: predniSONE 20 MG TABLET 40 MG PO (00:17)
--- NOTE | 2020-11-13 00:41 | PC.NURSE ---
no iv medications or fluids ordered, pt did not receive iv access.
== END 2020-11-13 00:53 | disposition home or self-care (01) ==
PROVIDERS: Emergency Provider Student in an Organized Health Care Education/Training Program; PCP Internal Medicine
DX: R06.00 Dyspnea, unspecified (principal); N39.0 Urinary tract infection, site not specified; I11.0 Hypertensive heart disease with heart failure; I50.9 Heart failure, unspecified; E11.9 Type 2 diabetes mellitus without complications; Z91.19 Patient's noncompliance with other medical treatment and regimen; Z99.81 Dependence on supplemental oxygen; Z79.4 Long term (current) use of insulin; Z79.899 Other long term (current) drug therapy
CPT/HCPCS: 36415; 71046; 80053; 81001; 81003; 83605; 83880; 85025; 85610; 87040; 87086; 93005; 99283; 99284

== ENCOUNTER → 2020-11-16 10:25 | Outpatient (BNVA) | payer MEDICARE, SELFPAY | PROVIDERS: PCP Internal Medicine; Visit Provider Orthopaedic Surgery | DX: M65.331 Trigger finger, right middle finger (principal) | CPT/HCPCS: 99212 ==

== ENCOUNTER 2020-11-24 08:12 | Outpatient (REF) | payer MEDICARE, SELFPAY ==
--- NOTE | ~2020-11-24 | CT_ITS ---
EXAMINATION: CT CHEST WITH CONTRAST CLINICAL INFORMATION: Chronic cough COMPARISON: Previous chest x-ray most recent 11/12/2020 and chest CTA February 2016 TECHNIQUE: Multidetector volumetric CT imaging of the chest was obtained after the administration of 65 mL of Omnipaque 350 intravenous contrast without immediate adverse reactions. Axial MIP volume rendering provided. Sagittal and coronal reformatted images were obtained. This CT examination was performed using dose optimization techniques as appropriate, variously including the following: *Automated exposure control *Adjustment of mA and/or kV according to patient size (this includes techniques or standardized protocols for targeted exams where dose is matched to indication/reason for exam; i.e. extremities or head) *Use of iterative reconstruction technique DLP: 245 mGy-cm FINDINGS: LUNGS: The lungs are clear. There is an azygos lobe. MEDIASTINUM: The mediastinum is normal. PLEURA: There is no pleural effusion. No pleural mass or thickening. AXILLA: No lymphadenopathy. UPPER ABDOMEN: The gallbladder has been removed. There is no intrahepatic biliary duct dilatation. The common bile ducts slightly dilated measuring 1.5 cm. This may be normal postcholecystectomy. There is increased attenuation of the fat surrounding the pancreas questionable for changes from pancreatitis.. Appearances are questionable for changes from pancreatitis. OSSEOUS STRUCTURES: There are new postsurgical changes to the proximal and mid thoracic spine with posterior fusion hardware and interpedicular screws. There is increased thoracic kyphosis. There are degenerative changes of the spine. 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 CT/CT chest w con IMPRESSION: No evidence for acute disease in the chest/pneumonia. Question increased attenuation of the fat surrounding the pancreas. Appearance is questionable for pancreatitis. Clinical correlation recommended. New postsurgical changes to the thoracic spine.
== END 2020-11-24 08:13 | disposition home or self-care (01) ==
LOC: HO.CT 08:12
PROVIDERS: Visit Provider Internal Medicine
DX: R05 Cough (principal)
CPT/HCPCS: 71260; Q9967

== ENCOUNTER 2020-11-25 10:39 | Outpatient (REF) | payer MEDICARE, SELFPAY ==
[2020-11-25 11:21] LABS: MANUAL DIFF FLAG NO
[2020-11-25 11:25] LABS: Basophils Absolute Auto 0.1 X10*3/uL (0.0-0.2); Basophils Percent Auto 0.4 % (0-2); Eosinophils Absolute Auto 0.2 X10*3/uL (0.0-0.4); Eosinophils Percent Auto 1.5 % (0-4); Hematocrit 40.6 % (37-47); Hemoglobin 13.3 g/dl (12.0-16.0); Imm Gran Abs Auto 0.07 X10*3/uL (0.00-0.03); Imm Gran Pct Auto 0.6 % (0.0-0.4); Lymphocytes Absolute Auto 4.7 X10*3/uL (1.2-4.9); Lymphocytes Percent Auto 37.7 % (20-40); Mean Corpuscular HGB Conc 32.8 g/dl (31.0-35.0); Mean Corpuscular Hemoglobin 31.4 pg (27.0-33.0); Mean Platelet Volume 9.4 fL (9.4-12.3); Monocytes Absolute Auto 0.7 X10*3/uL (0.1-1.2); Monocytes Percent Auto 5.9 % (2-11); Neutrophils Absolute Auto 6.7 X10*3/uL (2.0-8.3); Neutrophils Percent Auto 53.9 % (45-73); Platelet Count 274 X10*3/uL (160-400); Red Blood Count 4.23 X10*6/uL (4.20-5.50); Red Cell Distribution Width 13.9 % (11.0-16.0); White Blood Count 12.4 X10*3/uL (4.8-10.8)
[2020-11-25 11:54] LABS: Amylase 26 U/L (28-100); Lipase 31 U/L (8-78)
== END 2020-11-25 10:40 | disposition home or self-care (01) ==
LOC: HO.LAB 10:39
PROVIDERS: PCP Internal Medicine; Visit Provider Internal Medicine
DX: R10.9 Unspecified abdominal pain (principal)
CPT/HCPCS: 36415; 82150; 83690; 85025

== ENCOUNTER → 2020-12-08 08:36 | Outpatient (BNVA) | payer MEDICARE, SELFPAY | PROVIDERS: PCP Internal Medicine; Visit Provider Internal Medicine | DX: R07.2 Precordial pain (principal); R06.02 Shortness of breath; E11.8 Type 2 diabetes mellitus with unspecified complications; I10 Essential (primary) hypertension; E78.5 Hyperlipidemia, unspecified | CPT/HCPCS: 99202 ==

== ENCOUNTER 2020-12-16 10:48 | Day surgery (SDC) | payer MEDICARE, OTHER, SELFPAY ==
[2020-12-15 13:11] VITALS: BMI 37.8
--- NOTE | 2020-12-16 10:08 | P.OP_ITS ---
Operative Note Operative Note Date of Service: 12/16/20 Narrative: Operative Note Preop diagnosis: 1. Right middle finger Trigger finger Postop diagnosis: 1. Right middle finger Trigger finger Procedure: 1. Right middle finger A1 vane release Surgeon: Deisy Barfield MD Anesthesia: local block using 1% lidocaine with epinephrine Findings: No locking or catching after A1 vane release EBL: Less than 5 mL Tourniquet time: None Specimens: None Complications: None Disposition: Brought to recovery room in stable condition Plan: Follow-up for 7-10 days for wound check and suture removal Indications: The patient is 65 years old, with a right middle finger trigger finger that has been unresponsive to nonoperative management. The risks and benefits of operative treatment including but not limited to risk of damage to blood vessels, nerves, tendons, infection, persistent pain, persistent symptoms, recurrence or possible need for additional surgery were discussed with the patient and the patient wishes to proceed with surgery. Procedure: Once consent was obtained a local block was performed in the preop area using a combination of 1% lidocaine with epinephrine. The patient was then brought back to the operating suite and placed on the operative table in supine position. A tourniquet was applied to the proximal aspect of the right upper extremity and the limb was prepped and draped in a standard surgical fashion. Once assured that we had a good block, a 1.5 cm oblique incision was made centered over the A1 vane of the right middle finger . The incision was made through the skin to the subcutaneous tissues using a #15 blade. Careful dissection was made down to the level of the A1 vane using tenotomy scissors, with care being taken to protect the nearby neurovascular structures. A longitudinal incision was made in the A1 vane 1st using a #15 blade, then using tenotomy scissors under direct visualization. The A1 vane was noted to be thickened. Following our A1 vane release, we no longer saw any locking or catching of the digit with flexion and extension. Once satisfied with our A1 vane release the wound was copiously irrigated with normal saline and hemostasis was obtained with a brief period of local pressure. The skin edges were reapproximated with some 5.0 nylon suture material and a sterile dressing was applied. The patient appears to have tolerated the procedure well and with no co mplications. All digits were well vascularized at the conclusion of the case.
--- NOTE | 2020-12-16 10:09 | MHC.SHP ---
Pre-Procedural Eval Section B Chief Complaint: right middle finger Allergies: Allergies Allergy/AdvReac Type Severity Reaction Status Date / Time Sulfa (Sulfonamide Allergy Severe DIFFICULTY Verified 12/08/20 08:44 Antibiotics) BREATHING [SULFA (SULFONAMIDE ANTIBIOTICS)] cephalexin [From KEFLEX] Allergy Intermediate RASH,HIVES Verified 12/08/20 08:44 amoxicillin [AMOXICILLIN] Allergy Unknown DENIES Verified 12/08/20 08:44 THIS ALLERGY 03/28/2018 penicillin V Allergy Unknown Unknown Verified 12/08/20 08:44 sumatriptan [From IMITREX] AdvReac Severe HEART Verified 12/08/20 08:44 PALPITATIONS topiramate [From TOPAMAX] AdvReac Severe AGITATION Verified 12/08/20 08:44 Plan I have reviewed the history and physical and performed a pertinent physical examination on my patient. No changes have occurred unless specified.
[2020-12-16 11:23] VITALS: BP 166/59; PULSE 81; RESP 20; TEMP 36.2; O2SAT 96; BMI 34.0
[2020-12-16 12:45] VITALS: BP 159/85; PULSE 79; RESP 20; TEMP 36.6; O2SAT 95
== END 2020-12-16 13:02 ==
LOC: HO.SSS 10:48
PROVIDERS: PCP Internal Medicine; Visit Provider Orthopaedic Surgery
PROC: (CPT 26055; principal; 2020-12-16 12:00)
DX: M65.331 Trigger finger, right middle finger (principal); E11.40 Type 2 diabetes mellitus with diabetic neuropathy, unspecified; I11.0 Hypertensive heart disease with heart failure; I50.9 Heart failure, unspecified; J45.909 Unspecified asthma, uncomplicated; Z79.4 Long term (current) use of insulin; Z79.899 Other long term (current) drug therapy; Z88.0 Allergy status to penicillin; Z88.2 Allergy status to sulfonamides
CPT/HCPCS: 26055

== ENCOUNTER → 2020-12-22 08:34 | Outpatient (REF) | payer MEDICARE, SELFPAY ==
--- NOTE | ~2020-12-22 | NM_ITS ---
Lexiscan Myocardial perfusion study Indication: Chest pain, shortness of breath, assess for coronary disease and ischemia Technique: The patient was brought in for a Lexiscan perfusion study on 12/22/2020 and was injected 0.4 mg of Lexiscan intravenously. Within a minute of this injection 30 mCi of sestamibi was given intravenously. Images were obtained using the SPECT gamma camera interlaced with the gating device. Images were obtained in supine position. Resting perfusion study was performed on 12/23/2020. Patient was administered 30 mCi of sestamibi intravenously at rest. Images were then obtained in supine position. Total DLP 136mGy-cm. Images were processed with the software and compared side to side in short axis, horizontal long axis and vertical long axis views. Findings: Raw acquisition was reviewed. The stress perfusion study showed diminished tracer uptake along the distal part of inferior wall. There is some improvement with CT attenuation correction and hence there could be a component of diaphragmatic attenuation artifact. The gated study shows normal LV systolic function with calculated LVEF of 61%. LV cavity is normal in size. The gated study shows normal wall thickening and contraction of segments. Resting study shows no significant perfusion abnormality. Gating at rest reveals normal wall motion with ejection fraction at 65%. The findings are consistent with mild reversible distal inferior defect but with normal contractility. Possibly artifactual. Less likely to represent true ischemia. NM/NM tiara perf SPECT rest & str Impression: 1. Myocardial perfusion imaging study shows mild reversible distal inferior defect; possibly artifactual and less likely mild ischemia. 2. Gated LVEF is 61% during stress and 65% during rest. 3. Transient ischemic dilatation not present. EKG component of the test reported separately.
--- NOTE | 2020-12-22 08:37 | CA_ITS ---
Acquisition Time: 2020-12-22 09:11:21 Total Exercise Time: 00:02:00 Test Indications: Dyspnea Medications: SEE H Protocol: LEXISCAN Max HR: 110 BPM 70% of Pred: 157 BPM Max BP: 124/068 mmHG Max Work Load: 1.0 METS Pharmacological stress test using Lexiscan while sitting and kicking her feet. Pt tolerated well, denies any anginal sx. EKG with occasional PVC's, non-diagnostic for ischemia. Nuclear images to follow. Normotensive response to test. Test reviewed with Dr. Bentley. Referred By: Miguel Bentley Overread By: Shanique Meneses NP
== END ==
LOC: HO.CARD 08:34
PROVIDERS: Visit Provider Internal Medicine
DX: R07.2 Precordial pain (principal)
CPT/HCPCS: 78452; 93017; A9500; J0280; J2785

== ENCOUNTER → 2020-12-23 09:30 | Outpatient (BNVA) | payer MEDICARE, SELFPAY | PROVIDERS: PCP Internal Medicine; Visit Provider Internal Medicine | DX: R06.00 Dyspnea, unspecified (principal); E66.9 Obesity, unspecified; G47.34 Idiopathic sleep related nonobstructive alveolar hypoventilation; J98.4 Other disorders of lung; Z79.899 Other long term (current) drug therapy | CPT/HCPCS: 99202 ==

== ENCOUNTER → 2020-12-27 09:41 | Outpatient (BNVA) | payer MEDICARE, SELFPAY | PROVIDERS: Visit Provider Orthopaedic Surgery | DX: Z48.89 Encounter for other specified surgical aftercare (principal); Z87.898 Personal history of other specified conditions | CPT/HCPCS: 99212 ==

== ENCOUNTER → 2020-12-30 13:00 | Outpatient (BNVA) | payer MEDICARE, SELFPAY | PROVIDERS: PCP Internal Medicine; Visit Provider Nurse Practitioner Family | DX: R07.2 Precordial pain (principal); R06.02 Shortness of breath; I10 Essential (primary) hypertension; E78.5 Hyperlipidemia, unspecified; J98.4 Other disorders of lung; R94.39 Abnormal result of other cardiovascular function study | CPT/HCPCS: Q3014 ==

== ENCOUNTER → 2021-01-19 08:39 | Outpatient (REF) | payer MEDICARE, OTHER, SELFPAY ==
--- NOTE | 2021-01-19 08:49 | CA_ITS ---
Transthoracic Echocardiogram Patient (Last, First, Middle): Natalia Nichole, Gender: Female Date of : 1955 Age: 65 Procedure Date: 01/19/2021 Procedure Type: Transthoracic Echocardiogram Location: OP Height: 154.94 cm Weight: 86.18 kg BSA: 1.85 m2 Heart Rate: bpm BP: 190 / 88 mmHg Banking Assistant: Referring MD: Miguel Bentley MD Clinical Review Specialist: Adelfo Mendez MD Symptoms: R06.02 - Shortness of breath Study Quality: Fair ECG Rhythm: Sinus Conclusions: - 1. Normal LV systolic function with mild LVH with relaxation filling pattern 2. Mildly dilated left atrium 3. Normal cardiac valvular Doppler 4. Normal RV systolic pressure 5. No pericardial effusion Findings Procedure Information Contrast agent, definity, is being given per protocol without apparent complications. Left Ventricle Normal left ventricular size and systolic function. There is mildly increased left ventricular wall thickness. The visually estimated ejection fraction is between 60-65%. Spectral Doppler is indicative of an impaired relaxation filling pattern. E/E prime ratio is between 8 and 15 consistent with indeterminate filling pressures. Right Ventricle Normal right ventricular cavity size. There is normal right ventricular systolic function. Atria The left atrium is mildly dilated. Interatrial shunt cannot be excluded. The right atrium was not well visualized. Aortic Valve The aortic valve was not well visualized. There is no aortic valve stenosis. There is no aortic valve regurgitation. Mitral Valve The mitral valve was not well visualized. There is trace mitral valve regurgitation. There is no mitral valve stenosis. Pulmonic Valve The pulmonic valve was not well visualized. Tricuspid Valve Likely normal tricuspid valve structure and function. There is trace tricuspid valve regurgitation. The right ventricular systolic pressure is normal. The right ventricular systolic pressure is 25 mmHg. Normal right atrial pressure. There is no evidence of pulmonary hypertension. Great Vessels The aorta was not well visualized. The pulmonary artery was not well visualized. Venous The inferior vena cava is normal in size and collapses greater than 50% with inspiration. Pericardium/Pleural There is no evidence of pericardial effusion. Prior Study Comparison Changes noted compared to prior study. Mild LVH is present along with impaired relaxation Measurements 2D Linear Measurements IVSd: 1.21 0.6-0.9/0.6-1.0 cm LVIDd: 4.77 3.9-5.3/4.2-5.9 cm LVIDd Index: 2.58 2.4-3.2/2.2-3.1 cm/m2 LVIDs: 3.07 2.0-3.6 cm LVPWd: 1.21 0.7-1.1 cm Ao Root: 2.70 2.1-3.5 cm LA Diam: 3.70 2.7-3.8/3.0-4.0 cm LAIDs Index: 2.00 1.5-2.3 cm/m2 LV Mass: 273.69 67-162/88-224 g LV Mass Index: 147.94 43-95/49-115 g/m2 LVOT Diam: 2.00 3.0+(-)1.3 cm Mitral Valve MV Pk E: 0.73 MV PK A: 1.01 MV Decel Time: 191.00 E/A: 0.70 E'Lateral: 8.05 E'Medial: 4.03 E/E' Med: 18.10 E/E' Lat: 9.00 PHT: 56.00 MVA PHT: 3.93 Decel Simpson: 3.82 Aortic Valve AoV Pk Patrick: 1.72 AoV Mn Patrick: 1.10 AoV VTI: 0.34 AoV Pk Grad: 12.00 Aov Mn Grad: 6.00 ARMANDO Cont.VTI: 1.71 LVOT LVOT Pk Patrick: 0.87 LVOT Mn Patrick: 0.68 LVOT VTI: 0.19 LVOT Pk Grad: 3.00 LVOT Mn Grad: 2.00 LVOT Diam: 2.00 LVOT Area: 3.14 Diastolic Function MV Pk E: 0.73 MV Pk A: 1.01 E/A: 0.70 E'Medial: 4.03 E/E' Med: 18.10 E' Laterial: 8.05 E/E' Lat: 9.00 Tricuspid Valve TR Pk Patrick: 2.33 TR Pk Grad: 22.00 RA Press: 3.00 RVSP: 25.00 Great Vessels Aorta Ao Root-2D: 2.70 2.0-3.7 cm Pulmonary Valve PV Pk Patrick: 1.37 Peak PV Grad: 8.00 Updated in Other Vendor System with Status of Final Adelfo Mendez MD electronically signed on 01/21/2021 12:58:11 PM with status of Final
[2021-01-19 11:07] LABS: Ferritin 24 ng/mL (10-250); Thyroid Stimulating Hormone 1.13 uIU/mL (0.32-4.0)
[2021-01-19 11:12] LABS: Erythrocyte Sedimentation Rate 22 MM/HR (0-20)
[2021-01-19 12:04] LABS: Vitamin B12 1048 pg/mL (200-900)
[2021-01-20 08:41] LABS: Lyme Abs Screen <0.90 index
[2021-01-20 14:21] LABS: Ceruloplasmin 37 mg/dL (18-53)
[2021-01-21 21:52] LABS: Transglutaminase IgA 1 U/mL
[2021-01-24 15:37] LABS: Anti Nuclear Antibody Pattern Nuclear, Homogeneous; Anti Nuclear Antibody Screen POSITIVE (NEGATIVE)
== END ==
LOC: HO.CARD 08:39
PROVIDERS: Psychiatry & Neurology Neurology; PCP Internal Medicine; Visit Provider Internal Medicine
DX: R06.02 Shortness of breath (principal); E11.40 Type 2 diabetes mellitus with diabetic neuropathy, unspecified; R51.9 Headache, unspecified; J98.4 Other disorders of lung; G47.34 Idiopathic sleep related nonobstructive alveolar hypoventilation; R06.00 Dyspnea, unspecified; E66.9 Obesity, unspecified
CPT/HCPCS: 36415; 82390; 82607; 82728; 83516; 84443; 85652; 86038; 86039; 86617; 86618; 93306; 99212; Q9957

== ENCOUNTER 2021-01-19 08:41 | Outpatient (REF) | payer MEDICARE, SELFPAY ==
--- NOTE | 2021-01-19 13:50 | PFT_ITS ---
Forced vital capacity and FEV1 are both moderately reduced. SHR45-42 is normal. MVV moderately reduced. Postbronchodilator therapy, there is no significant change. Total lung capacity is moderately reduced. Residual volume is slightly reduced. Diffusion capacity moderately reduced. CONCLUSION: Moderately severe restrictive pulmonary disorder. No significant obstructive airway disorder. No response to bronchodilator therapy. MD NIRU Peterson/MODL / [id number]
== END 2021-01-19 08:42 | disposition home or self-care (01) ==
LOC: HO.RESP 08:41
PROVIDERS: PCP Internal Medicine; Visit Provider Internal Medicine
DX: R06.00 Dyspnea, unspecified (principal); J98.4 Other disorders of lung; G47.34 Idiopathic sleep related nonobstructive alveolar hypoventilation
CPT/HCPCS: 94060; 94727; 94729

== ENCOUNTER 2021-01-25 13:42 | Outpatient (REF) | payer MEDICARE, OTHER, SELFPAY ==
--- NOTE | ~2021-01-25 | MR_ITS ---
MR THORACIC SPINE WITHOUT CONTRAST CLINICAL INFORMATION: Autonomic dysreflexia/hyperreflexia. COMPARISON: Cervical spine MRI 10/28/2020. Thoracic spine MRI 02/10/2016. Chest CT 11/24/2020. TECHNIQUE: MRI of the thoracic spine was obtained using routine sequences without contrast. FINDINGS: 12 rib bearing thoracic type vertebral bodies. There are redemonstrated postoperative changes following C4 corpectomy with a corpectomy strut cage in place, T3-T4 laminectomy, and posterior instrumented fusion at the T1-T7 levels. 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 The surgical hardware is not diagnostically assessed on MRI secondary to significant artifact. Nondiagnostic assessment of the central canal, bone marrow signal, and spinal cord at the postoperative level secondary to artifact. There is an upper thoracic kyphosis. Redemonstrated chronic compression deformity at the T3 level. No definite acute fractures are identified. No thoracic disc herniations within the imaged thoracic spine. MR/MR thoracic spine wo con IMPRESSION: - There are redemonstrated postoperative changes following C4 corpectomy with a corpectomy strut cage in place, T3-T4 laminectomy, and posterior instrumented fusion at the T1-T7 levels. The surgical hardware is not diagnostically assessed on MRI secondary to significant artifact. Nondiagnostic assessment of the central canal, bone marrow signal, and spinal cord at the postoperative level secondary to artifact. - At T8 butterfly vertebra is again noted. - No significant central canal stenosis nor significant foraminal stenosis within the imaged thoracic spine.
== END 2021-01-25 13:43 | disposition home or self-care (01) ==
LOC: HO.MRI 13:42
PROVIDERS: Visit Provider Psychiatry & Neurology Neurology
DX: R27.0 Ataxia, unspecified (principal); G90.4 Autonomic dysreflexia; C76.0 Malignant neoplasm of head, face and neck; Z91.81 History of falling
CPT/HCPCS: 72146

== ENCOUNTER 2021-02-18 14:24 | Outpatient (REF) | payer MEDICARE, OTHER, SELFPAY ==
--- NOTE | ~2021-02-18 | US_ITS ---
EXAMINATION: US EXTRACRANIAL CAROTID DUPLEX, BILATERAL CLINICAL INFORMATION: This is a 65-year-old female with TIA. Carotid artery disease. COMPARISON: None TECHNIQUE: Real-time ultrasound and Doppler techniques (integrating B-mode 2-D vascular images, Doppler spectral analysis and color-flow Doppler imaging) were utilized to interrogate the extracranial carotid arteries, the vertebral arteries and proximal subclavian arteries bilaterally. The degree of stenosis is determined by criteria similar to NASCET. FINDINGS: Right Side: 1. There is minimal atherosclerotic plaque seen in the bifurcation/proximal ICA region. 2. The common carotid artery PSV proximally is 131 cm/s and distally 112 cm/s. 3. The proximal internal carotid artery velocities are 124 cm/s systolic and 32 cm/s diastolic. 4. The proximal external carotid artery PSV is 114 cm/s. 5. The vertebral artery shows antegrade flow. 6. The subclavian artery waveforms are normal. Left Side: 1. There is minimal atherosclerotic plaque seen in the bifurcation/proximal ICA region. 2. The common carotid artery PSV proximally is 167 cm/s and distally 105 cm/s. 3. The proximal internal carotid artery velocities are 103 cm/s systolic and 35 cm/s diastolic. 4. The proximal external carotid artery PSV is 145 cm/s. 5. The vertebral artery shows antegrade flow. 6. The subclavian artery waveforms are normal. US/US carotid duplex BI IMPRESSION: 1. RIGHT: Minimal, non-hemodynamically significant stenosis of the proximal right internal carotid artery corresponding to a 0-49% stenosis by velocity criteria. 2. LEFT: Minimal, non-hemodynamically significant stenosis of the proximal left internal carotid artery corresponding to a 0-49% stenosis by velocity criteria.
== END 2021-02-18 14:25 | disposition home or self-care (01) ==
LOC: HO.HMGCX 14:24
PROVIDERS: PCP Internal Medicine; Visit Provider Psychiatry & Neurology Neurology
DX: G45.9 Transient cerebral ischemic attack, unspecified (principal)
CPT/HCPCS: 93880

== ENCOUNTER 2021-02-24 14:25 | Outpatient (REF) | payer MEDICARE, SELFPAY ==
[2021-02-24 16:52] LABS: Anion Gap 15 (12-20); Blood Urea Nitrogen 20 mg/dL (9-16); Calcium 9.6 mg/dL (8.4-10.2); Carbon Dioxide 24 mmol/L (22-29); Chloride 107 mmol/L (96-108); Estimated Glomerular Filt Rate > 60; Glucose Random 257 mg/dL (60-115); Potassium 4.6 mmol/L (3.3-5.1); Sodium 141 mmol/L (135-145)
== END 2021-02-24 14:26 | disposition home or self-care (01) ==
LOC: HO.HMGCLDS 14:25
PROVIDERS: PCP Internal Medicine; Visit Provider Nurse Practitioner Family
DX: R07.2 Precordial pain (principal); R06.02 Shortness of breath; R94.39 Abnormal result of other cardiovascular function study
CPT/HCPCS: 36415; 80048

== ENCOUNTER 2021-02-26 13:55 | Emergency (ER) | payer MEDICARE, SELFPAY ==
--- NOTE | ~2021-02-26 | XR_ITS ---
EXAMINATION: XR CHEST CLINICAL INFORMATION: Dyspnea COMPARISON: 11/12/2020 TECHNIQUE: Frontal view of the chest was obtained. FINDINGS: Marked kyphosis is again seen with extensive thoracic spine hardware with posterior pedicular screws and corpectomy. Some basilar atelectasis is seen but no other abnormalities are detected. Severe degenerative changes again noted left shoulder. XR/XR chest 1V IMPRESSION: No acute intrathoracic disease.
[2021-02-26 13:57] VITALS: BP 154/69; PULSE 95; RESP 18; TEMP 36.4; O2SAT 89; BMI 34.0
--- NOTE | 2021-02-26 14:05 | ED.SOB ---
HPI - SOB/Dyspnea General Chief Complaint: Dyspnea Stated Complaint: cough/SOB Time Seen by Provider: 02/26/21 13:58 Source: patient and family Mode of arrival: ambulatory Limitations: no limitations History of Present Illness HPI Narrative: usually uses O2 at night now using it during the day, on arrival to treatment room 95% MD elicited complaint: shortness of breath and cough Pertinent past history: asthma and other (chronic dyspnea) Onset (ago): day(s) (2) Timing: intermittent Severity: moderate Exacerbating factors: lying flat, exertion and coughing Relieving factors: oxygen and rest Known history of: asthma and congestive heart failure Associated symptoms: cough and sputum production Treatment prior to arrival: oxygen Related Data Home Medications Medication Instructions Recorded Confirmed acetaminophen 650 mg 650 mg PO Q8H 12/08/20 12/30/20 tablet,extended release ipratropium bromide 21 mcg (0.03 2 spray INTRANASAL BID-TID PRN 12/08/20 12/30/20 %) nasal spray meclizine 25 mg tablet 25 mg PO BID tab 12/08/20 12/30/20 sucralfate 1 gram tablet 1 g PO TID tab 12/08/20 12/30/20 dicyclomine 1 tab PO TID 12/16/20 12/30/20 famotidine 1 tab PO BEDTIME 12/16/20 12/30/20 melatonin 1 tab PO BEDTIME 12/16/20 12/30/20 quetiapine 1 tab PO BEDTIME 12/16/20 12/30/20 valsartan 1 tab PO DAILY 12/16/20 12/30/20 Previous Rx's Medication Instructions Recorded Lantus Solostar U-100 Insulin 40 unit SUBCUT BEDTIME 30 Days #10 08/04/20 ml atorvastatin 20 mg PO DAILY 30 Days #30 tab 08/04/20 baclofen 10 mg PO TID 30 Days #90 tab 08/04/20 donepezil 5 mg PO DAILY 30 Days #30 tab 08/04/20 insulin lispro [Humalog KwikPen 2 - 14 unit SUBCUT DIRECTED 30 08/04/20 Insulin] Days #10 ml nystatin 1 appl TOPICAL BID 30 Days #1 g 08/04/20 oxybutynin chloride 15 mg PO DAILY 30 Days #30 tab 08/04/20 pantoprazole 40 mg PO BID@0630,1630 30 Days #30 08/04/20 tab benzonatate [Tessalon Perles] 100 mg PO TID PRN #20 cap 02/26/21 doxycycline hyclate 100 mg PO DAILY 7 Days #7 tab 02/26/21 prednisone 40 mg PO DAILY 5 Days #10 tab 02/26/21 Allergies Allergy/AdvReac Type Severity Reaction Status Date / Time Sulfa (Sulfonamide Allergy Severe DIFFICULTY Verified 01/19/21 14:29 Antibiotics) BREATHING [SULFA (SULFONAMIDE ANTIBIOTICS)] cephalexin [From KEFLEX] Allergy Intermediate RASH,HIVES Verified 01/19/21 14:29 amoxicillin [AMOXICILLIN] Allergy Unknown DENIES Verified 01/19/21 14:29 THIS ALLERGY 03/28/2018 penicillin V Allergy Unknown Unknown Verified 01/19/21 14:29 sumatriptan [From IMITREX] AdvReac Severe HEART Verified 01/19/21 14:29 PALPITATIONS topiramate [From TOPAMAX] AdvReac Severe AGITATION Verified 01/19/21 14:29 Review of Systems Review of Systems: Constitutional : No Fever, No Chills ENT/Mouth : No sore throat, No Rhinorrhea, No Swallowing Difficulty Eyes: No Eye Pain, No Swelling, No Redness Cardiovascular : No Chest Pain, positive SOB, No Orthopnea, no Edema Respiratory : pos Cough, pos Sputum, No Wheezing, positive dyspnea Gastrointestinal : No Nausea, No Vomiting, No Diarrhea, No abdominal Pain, No Hematochezia, No Melena Genitourinary : No Dysuria, No Urinary Frequency, No Hematuria Musculoskeletal : No joint pain, No Myalgias Skin : No Skin Lesions, No rash Neuro : No Weakness, No Numbness, No Dizziness, No Headache Psych : No Anxiety/Panic, No Depression Heme/Lymph: No Bruising, No Lymphadenopathy Endocrine : No Polyuria, No Polydipsia All other systems reviewed and are negative [facility] Past Medical History Attestation statement: The following information was validated with the patient. Medical History Anxiety Asthma Brain tumor CHF (congestive heart failure) Diabetes Diabetic acetonemia Dyspnea on exertion Essential hypertension HTN (hypertension) Myalgia and myositis Neuropathy Nocturnal hypoxemia Obesity (BMI 30-39.9) Orthopnea Restrictive lung disease Type 2 diabetes mellitus with unspecified complications UTI (urinary tract infection) Surgical History History of appendectomy History of arthroscopy of both knees History of hysterectomy History of pancreatic surgery Family History Family History Father No problems noted. Mother Angina at rest Social History Social History Household Members: Spouse Housing: Apartment Do you presently have visiting nurse or other home services: No Unable to assess alcohol history related to: Unable to respond, Unknown and Refusing to respond Alcohol intake: unknown Second Hand Smoke Exposure: No Advance Directives: No Advance Directives Information Provided: Yes Patient : No service: No Current occupational status: unemployed and disabled Current occupation: right handed Sexual orientation: Straight/Heterosexual Physical Exam Vital Signs: Vital Signs: Last Vital Signs Temp 98.8 F 02/26/21 14:53 Pulse 96 02/26/21 14:53 Resp 17 02/26/21 14:53 BP 154/68 H 02/26/21 14:53 Pulse Ox 94 02/26/21 14:53 Body Mass Index 34.0 Appearance: Alert. Oriented X3. No acute distress. Eyes: Pupils equal, round and reactive to light. ENT: Pharynx normal. Neck: Normal inspection. Neck supple. CVS: Normal heart rate and rhythm. Pulses normal. Respiratory: No respiratory distress. Breath sounds decreased throughout diffusely, 95% on RA Abdomen: Soft and nontender. Skin: Skin warm and dry. Normal skin color. Normal skin turgor. Extremities: No lower extremity edema. No calf ttp Neuro: Oriented X 3. No motor deficit. No sensory deficit. Course Course Course Narrative: 95% o ambulation trial no resp distress not toxic, has been on her phone, no need for supp O2 - will start on steroids and tessalon, discussed CTA findings from [facility] and Dr. Otero her trop and EKG are normal doubt this is related to cardiac ischemia can follow up for elective cath - patient aware MDM - SOB/Dyspnea MDM Narrative Medical decision making narrative: 65 yo female with hx of restrictive lung disease, O2 dependence at night, GARY, elevated LFTs, obesity, DM, chronic dyspnea at this time will need labs, neb, IV steroids, CXR, currently 95% on RA will observe in ED, [place] [facility] [place] fax for results - she was symptomatic at that time during the test, dispo per results and findings. Lab Data Result diagrams: 02/26/21 14:40 02/26/21 14:40 Labs: Lab Results 02/26/21 02/26/21 02/26/21 Range/Units 14:40 14:40 14:40 WBC 10.5 (4.8-10.8) X10*3/uL RBC 3.94 L (4.20-5.50) X10*6/uL Hgb 12.2 (12.0-16.0) g/dl Hct 37.8 (37-47) % MCV 95.9 (80-98) fL MCH 31.0 (27.0-33.0) pg MCHC 32.3 (31.0-35.0) g/dl RDW 13.5 (11.0-16.0) % Plt Count 226 (160-400) X10*3/uL MPV 9.2 L (9.4-12.3) fL Immature Gran % (Auto) 0.5 H (0.0-0.4) % Neut % (Auto) 68.9 (45-73) % Lymph % (Auto) 17.3 L (20-40) % [place] % (Auto) 8.0 (2-11) % Eos % (Auto) 4.8 H (0-4) % Baso % (Auto) 0.5 (0-2) % Lymph # (Auto) 1.8 (1.2-4.9) X10*3/uL [place] # (Auto) 0.8 (0.1-1.2) X10*3/uL Eos # (Auto) 0.5 H (0.0-0.4) X10*3/uL Baso # (Auto) 0.1 (0.0-0.2) X10*3/uL Abs Immat Gran (auto) 0.05 H (0.00-0.03) X10*3/uL Absolute Neuts (auto) 7.3 (2.0-8.3) X10*3/uL Absolute Nucleated RBC 0.000 (0.0-0.012) X10*3/uL Nucleated RBC % (auto) 0.0 (0.0-0.2) /100WBC VBG pH (7.32-7.43) VBG pCO2 mmHg VBG pO2 mmHg VBG HCO3 (22-26) mmol/L VBG O2 Saturation % VBG Base Excess mmol/L Sodium 143 (135-145) mmol/L Potassium 4.4 (3.3-5.1) mmol/L Chloride 108 (96-108) mmol/L Carbon Dioxide 23 (22-29) mmol/L Anion Gap 16 (12-20) BUN 21 H (9-16) mg/dL Creatinine 0.76 (0.5-1.4) mg/dL Estim Creat Clear Calc 73.4 Estimated GFR > 60 Random Glucose 150 H D (60-115) mg/dL Calcium 9.2 (8.4-10.2) mg/dL Magnesium 2.0 (1.6-2.6) mg/dL Total Bilirubin 0.2 (0.0-1.0) mg/dL Direct Bilirubin < 0.2 (0.0-0.5) mg/dL AST 23 D (5-31) U/L ALT 19 (0-31) U/L Alkaline Phosphatase 82 (39-117) U/L Troponin I High Sens 4.6 (<3.5-17.0) ng/L B-Natriuretic Peptide 101 H (<100) pg/mL Total Protein 6.8 (6.5-8.0) g/dL Albumin 4.0 (3.5-5.0) g/dL COVID-19 (FLOR) (Negative) COVID-19 Clin Com 02/26/21 02/26/21 Range/Units 14:40 14:44 WBC (4.8-10.8) X10*3/uL RBC (4.20-5.50) X10*6/uL Hgb (12.0-16.0) g/dl Hct (37-47) % MCV (80-98) fL MCH (27.0-33.0) pg MCHC (31.0-35.0) g/dl RDW (11.0-16.0) % Plt Count (160-400) X10*3/uL MPV (9.4-12.3) fL Immature Gran % (Auto) (0.0-0.4) % Neut % (Auto) (45-73) % Lymph % (Auto) (20-40) % [place] % (Auto) (2-11) % Eos % (Auto) (0-4) % Baso % (Auto) (0-2) % Lymph # (Auto) (1.2-4.9) X10*3/uL [place] # (Auto) (0.1-1.2) X10*3/uL Eos # (Auto) (0.0-0.4) X10*3/uL Baso # (Auto) (0.0-0.2) X10*3/uL Abs Immat Gran (auto) (0.00-0.03) X10*3/uL Absolute Neuts (auto) (2.0-8.3) X10*3/uL Absolute Nucleated RBC (0.0-0.012) X10*3/uL Nucleated RBC % (auto) (0.0-0.2) /100WBC VBG pH 7.32 (7.32-7.43) VBG pCO2 42 mmHg VBG pO2 53 mmHg VBG HCO3 22 (22-26) mmol/L VBG O2 Saturation 81.0 % VBG Base Excess -3.2 mmol/L Sodium (135-145) mmol/L Potassium (3.3-5.1) mmol/L Chloride (96-108) mmol/L Carbon Dioxide (22-29) mmol/L Anion Gap (12-20) BUN (9-16) mg/dL Creatinine (0.5-1.4) mg/dL Estim Creat Clear Calc Estimated GFR Random Glucose (60-115) mg/dL Calcium (8.4-10.2) mg/dL Magnesium (1.6-2.6) mg/dL Total Bilirubin (0.0-1.0) mg/dL Direct Bilirubin (0.0-0.5) mg/dL AST (5-31) U/L ALT (0-31) U/L Alkaline Phosphatase (39-117) U/L Troponin I High Sens (<3.5-17.0) ng/L B-Natriuretic Peptide (<100) pg/mL Total Protein (6.5-8.0) g/dL Albumin (3.5-5.0) g/dL COVID-19 (FLOR) Negative (Negative) COVID-19 Clin Com See Note ECG Data Attestation: I personally reviewed and interpreted this ECG as follows: ECG interpretation date: 02/26/21 ECG interpretation time: 14:57 Interpretation: Rate: 96 Rhythm: NSR [place]: normal Normal P waves. Normal MARYBETH. Normal QRS complex. ST T wave : normal no HOLLIE qTC: normal prior studies: no acute ischemia The study has been interpreted contemporaneously by me. . Discharge Plan Discharge Clinical Impression: Cough, Acute upper respiratory infection Patient Disposition: Home, Self-Care Instructions: Upper Respiratory Infection (ED) Additional Instructions: return to ED for any worsening symptoms or concerns Prescriptions: New benzonatate [Tessalon Perles] 100 mg capsule 100 mg PO TID PRN (Reason: cough) Qty: 20 RF: 0 prednisone 20 mg tablet 40 mg PO DAILY 5 Days Qty: 10 RF: 0 doxycycline hyclate 100 mg tablet 100 mg PO DAILY 7 Days Qty: 7 RF: 0 No Action donepezil 5 mg Tablet 5 mg PO DAILY 30 Days Qty: 30 RF: 0 baclofen 10 mg Tablet 10 mg PO TID 30 Days Qty: 90 RF: 0 nystatin 100,000 unit/gram Cream 1 appl topical BID 30 Days Qty: 1 RF: 0 oxybutynin chloride 15 mg Tablet Extended Release 24hr 15 mg PO DAILY 30 Days Qty: 30 RF: 0 atorvastatin 20 mg tablet 20 mg PO DAILY 30 Days Qty: 30 RF: 0 pantoprazole 40 mg tablet,delayed release (DR/EC) 40 mg PO BID@0630,1630 30 Days Qty: 30 RF: 0 insulin lispro [Humalog KwikPen Insulin] 100 unit/mL insulin pen 2 - 14 unit subcut DIRECTED 30 Days Qty: 10 RF: 0 Lantus Solostar U-100 Insulin 100 unit/mL (3 mL) insulin pen 40 unit subcut BEDTIME 30 Days Qty: 10 RF: 0 famotidine 20 mg tablet 1 tab PO BEDTIME RF: 0 dicyclomine 20 mg tablet 1 tab PO TID RF: 0 valsartan 40 mg tablet 1 tab PO DAILY RF: 0 quetiapine 50 mg tablet 1 tab PO BEDTIME RF: 0 melatonin 5 mg tablet 1 tab PO BEDTIME RF: 0 meclizine 25 mg tablet 25 mg PO BID RF: 0 acetaminophen [Tylenol Arthritis Pain] 650 mg tablet extended release 650 mg PO Q8H RF: 0 ipratropium bromide 21 mcg (0.03 %) spray,non-aerosol 2 spray intranasal BID-TID PRN (Reason: Cold Symptoms) RF: 0 sucralfate 1 gram tablet 1 g PO TID RF: 0
--- NOTE | 2021-02-26 14:06 | ECG_ITS ---
Test Reason : DYSPNEA Blood Pressure : / mmHG Vent. Rate : 096 BPM Atrial Rate : 096 BPM P-R Int : 126 ms QRS Dur : 086 ms QT Int : 356 ms P-R-T Axes : 025 045 027 degrees QTc Int : 449 ms Normal sinus rhythm Normal ECG When compared with ECG of 12-NOV-2020 21:26, Borderline criteria for Inferior infarct are no longer Present Referred By: Mena Paul Electronically Signed By:Jose Otero
[2021-02-26] MEDS: Albuterol Sulfate (0.083%) 2.5 MG/3 ML VIAL.NEB INHALE (14:24)
[2021-02-26 14:28] VITALS: PULSE 91; O2SAT 96
[2021-02-26] MEDS: methylPREDNISolone Sod Succ 125 MG/2 ML VIAL IVPUSH (14:42)
[2021-02-26 14:45] LABS: MANUAL DIFF FLAG NO
[2021-02-26 14:47] LABS: Basophils Absolute Auto 0.1 X10*3/uL (0.0-0.2); Basophils Percent Auto 0.5 % (0-2); Eosinophils Absolute Auto 0.5 X10*3/uL (0.0-0.4); Eosinophils Percent Auto 4.8 % (0-4); Hematocrit 37.8 % (37-47); Hemoglobin 12.2 g/dl (12.0-16.0); Imm Gran Abs Auto 0.05 X10*3/uL (0.00-0.03); Imm Gran Pct Auto 0.5 % (0.0-0.4); Lymphocytes Absolute Auto 1.8 X10*3/uL (1.2-4.9); Lymphocytes Percent Auto 17.3 % (20-40); Mean Corpuscular HGB Conc 32.3 g/dl (31.0-35.0); Mean Corpuscular Volume 95.9 fL (80-98); Mean Platelet Volume 9.2 fL (9.4-12.3); Monocytes Absolute Auto 0.8 X10*3/uL (0.1-1.2); Neutrophils Absolute Auto 7.3 X10*3/uL (2.0-8.3); Neutrophils Percent Auto 68.9 % (45-73); Platelet Count 226 X10*3/uL (160-400); Red Blood Count 3.94 X10*6/uL (4.20-5.50); Red Cell Distribution Width 13.5 % (11.0-16.0); White Blood Count 10.5 X10*3/uL (4.8-10.8)
[2021-02-26 14:51] LABS: Venous Blood Gas Refer to POC result
[2021-02-26 14:52] LABS: VBG Base Excess -3.2 mmol/L; VBG HCO3 22 mmol/L (22-26); VBG pCO2 42 mmHg; VBG pH 7.32 (7.32-7.43); VBG pO2 53 mmHg
[2021-02-26 14:53] VITALS: BP 154/68; PULSE 96; RESP 17; TEMP 37.1; O2SAT 94
[2021-02-26 15:02] LABS: COVID-19 Test Negative (Negative)
[2021-02-26 15:11] LABS: Alanine Aminotransferase 19 U/L (0-31); Alkaline Phosphatase 82 U/L (39-117); Anion Gap 16 (12-20); Aspartate Amino Transferase 23 U/L (5-31); Bilirubin Direct < 0.2 mg/dL (0.0-0.5); Bilirubin Total 0.2 mg/dL (0.0-1.0); Blood Urea Nitrogen 21 mg/dL (9-16); Calcium 9.2 mg/dL (8.4-10.2); Carbon Dioxide 23 mmol/L (22-29); Chloride 108 mmol/L (96-108); Creatinine Clr Calc Pharmacy 73.4; Estimated Glomerular Filt Rate > 60; Glucose Random 150 mg/dL (60-115); Potassium 4.4 mmol/L (3.3-5.1); Sodium 143 mmol/L (135-145); Total Protein 6.8 g/dL (6.5-8.0)
[2021-02-26 15:17] LABS: B Type Natriuretic Peptide 101 pg/mL (<100); Troponin-I High Sensitivity 4.6 ng/L (<3.5-17.0)
[2021-02-26] MEDS: Benzonatate 100 MG CAPSULE 200 MG PO (16:28)
== END 2021-02-26 16:37 | disposition home or self-care (01) ==
PROVIDERS: Emergency Provider Emergency Medicine; PCP Internal Medicine
DX: J06.9 Acute upper respiratory infection, unspecified (principal); R05 Cough; R06.02 Shortness of breath; I11.0 Hypertensive heart disease with heart failure; I50.9 Heart failure, unspecified; E11.9 Type 2 diabetes mellitus without complications; J45.909 Unspecified asthma, uncomplicated; Z79.4 Long term (current) use of insulin; Z79.899 Other long term (current) drug therapy; Z20.822 Contact with and (suspected) exposure to COVID-19; Z99.81 Dependence on supplemental oxygen
CPT/HCPCS: 36415; 71045; 80048; 80076; 83735; 83880; 84484; 85025; 87635; 93005; 94640; 96374; 99284; J2930

== ENCOUNTER → 2021-02-28 14:45 | Outpatient (BNVA) | payer MEDICARE, SELFPAY | PROVIDERS: PCP Internal Medicine; Visit Provider Nurse Practitioner Family | DX: Z13.89 Encounter for screening for other disorder (principal) | CPT/HCPCS: Q3014 ==

== ENCOUNTER 2021-03-04 15:53 | Outpatient (REF) | payer MEDICARE, SELFPAY ==
--- NOTE | ~2021-03-04 | XR_ITS ---
EXAMINATION: XR CHEST CLINICAL INFORMATION: Shortness of breath COMPARISON: Previous chest x-ray most recent February 2021 TECHNIQUE: 2 views of the chest were obtained. FINDINGS: The cardiac and mediastinal contours are stable. The lungs are clear. There is no pleural effusion or pneumothorax. There are stable postsurgical changes to the thoracic spine with posterior rods, interpedicular screws and corpectomy. There is a left humeral neck fracture that appears unchanged. There may be old trauma to the right distal clavicle XR/XR chest 2V IMPRESSION: No evidence for acute disease in the chest.
[2021-03-04 16:37] LABS: Hematocrit 41.3 % (37-47); Hemoglobin 13.6 g/dl (12.0-16.0); Mean Corpuscular HGB Conc 32.9 g/dl (31.0-35.0); Mean Corpuscular Hemoglobin 31.1 pg (27.0-33.0); Mean Corpuscular Volume 94.3 fL (80-98); Mean Platelet Volume 9.1 fL (9.4-12.3); Platelet Count 301 X10*3/uL (160-400); Red Blood Count 4.38 X10*6/uL (4.20-5.50); Red Cell Distribution Width 13.8 % (11.0-16.0)
[2021-03-04 17:12] LABS: B Type Natriuretic Peptide 49 pg/mL (<100)
[2021-03-04 17:16] LABS: Anion Gap 13 (12-20); Blood Urea Nitrogen 17 mg/dL (9-16); Calcium 9.9 mg/dL (8.4-10.2); Carbon Dioxide 25 mmol/L (22-29); Chloride 112 mmol/L (96-108); Estimated Glomerular Filt Rate > 60; Glucose Random 44 mg/dL (60-115); Potassium 4.1 mmol/L (3.3-5.1); Sodium 146 mmol/L (135-145)
[2021-03-04 18:12] LABS: Procalcitonin 0.02 ng/mL
[2021-03-04 18:15] LABS: Atypical Lymph Absolute Manual 0.2 x10*3/uL; Atypical Lymphs Percent Manual 1 % (0-6); Band Neutrophils Percent 4 % (3-5); Eosinophils Absolute Manual 0.9 X10*3/UL (0.0-0.8); Eosinophils Percent Manual 5 % (0-4); Lymphocytes Absolute Manual 5.4 X10*3/uL (0.6-4.8); Lymphocytes Percent Manual 30 % (20-40); Metamyelocytes Absolute 0.5 X10*3/uL; Metamyelocytes Percent 3 %; Monocytes Absolute Manual 0.7 X10*3/uL (0.0-1.2); Monocytes Percent Manual 4 % (2-11); Myelocytes Absolute 0.5 X10*/uL; Myelocytes Percent 3 %; Neutrophils Absolute Manual 9.7 X10*3/uL (2.2-7.9); Neutrophils Percent Manual 50 % (45-73); RBC Morphology NOTED
[2021-03-04 18:16] LABS: Platelet Estimate NORMAL (NORMAL); Platelet Morphology Comment NORMAL; Smudge Cells PRESENT; Stomatocytes 2+ (15-30) /OIF
== END 2021-03-04 15:54 | disposition home or self-care (01) ==
LOC: HO.XRAY 15:53
PROVIDERS: PCP Internal Medicine; Referring Provider Internal Medicine; Visit Provider Nurse Practitioner Primary Care
DX: J98.4 Other disorders of lung (principal); R05 Cough; R06.02 Shortness of breath
CPT/HCPCS: 36415; 71046; 80048; 83880; 84145; 85007; 85025; 85027

== ENCOUNTER 2021-03-08 14:49 | Outpatient (REF) | payer MEDICARE, SELFPAY ==
--- NOTE | ~2021-03-08 | XR_ITS ---
EXAMINATION: XR CHEST CLINICAL INFORMATION: Shortness of breath COMPARISON: Previous chest x-ray most recent 03/04/2021 TECHNIQUE: Two-view chest FINDINGS: The cardiac and mediastinal contours are stable. There is subsegmental atelectasis at the lung bases. The lungs are otherwise clear. There is no pleural effusion or pneumothorax. There is increased thoracic kyphosis. There is postsurgical change to the proximal thoracic spine with posterior rods radicular screws and corpectomy. There may be old trauma to the right shoulder. XR/XR chest 2V IMPRESSION: Subsegmental atelectasis at the lung bases.
[2021-03-08 17:56] LABS: MANUAL DIFF FLAG NO
[2021-03-08 18:03] LABS: Glucose Urine UA NEG (NEG); Leukocyte Esterase Urine 1+ (NEG); Nitrite Urine NEG (NEG); PH 5.5 (5.0-8.0); Specific Gravity - Urine 1.025 (1.005-1.025); Urine Blood NEG (NEG); Urine Ketones 5 MG/DL (NEG); Urine Protein 2+ MG/DL (NEG-TRACE)
[2021-03-08 18:09] LABS: Basophils Percent Auto 0.2 % (0-2); Hematocrit 43.1 % (37-47); Imm Gran Abs Auto 0.51 X10*3/uL (0.00-0.03); Imm Gran Pct Auto 2.4 % (0.0-0.4); Lymphocytes Absolute Auto 2.5 X10*3/uL (1.2-4.9); Lymphocytes Percent Auto 11.8 % (20-40); Mean Corpuscular HGB Conc 32.5 g/dl (31.0-35.0); Mean Corpuscular Hemoglobin 31.1 pg (27.0-33.0); Mean Corpuscular Volume 95.8 fL (80-98); Mean Platelet Volume 9.7 fL (9.4-12.3); Monocytes Absolute Auto 1.5 X10*3/uL (0.1-1.2); Monocytes Percent Auto 6.8 % (2-11); Neutrophils Percent Auto 78.8 % (45-73); Platelet Count 322 X10*3/uL (160-400); Red Cell Distribution Width 14.3 % (11.0-16.0); White Blood Count 21.6 X10*3/uL (4.8-10.8)
[2021-03-08 18:16] LABS: Appearance Urine CLOUDY; Color Urine YELLOW; Lactate Dehydrogenase 201 U/L (122-220)
[2021-03-08 18:31] LABS: Bacteria Urine 2+ /LPF; Squamous Epithelial Cell Urine 4+ /LPF
[2021-03-08 18:32] LABS: Calcium Oxalate Crystals Urine TRACE /LPF
== END 2021-03-08 14:50 | disposition home or self-care (01) ==
LOC: HO.XRAY 14:49
PROVIDERS: PCP Internal Medicine; Visit Provider Nurse Practitioner Primary Care
DX: R06.02 Shortness of breath (principal)
CPT/HCPCS: 36415; 71046; 81001; 83615; 85025; 87040; 87086

== ENCOUNTER 2021-03-27 20:26 | Inpatient (IN) | payer MEDICARE, OTHER, SELFPAY ==
--- NOTE | ~2021-03-27 | CT_ITS ---
EXAMINATION: CT HEAD WITHOUT CONTRAST CLINICAL INFORMATION: Altered mental status COMPARISON: 06/23/2020 TECHNIQUE: Contiguous axial imaging was performed from the skull base to vertex without intravenous administration of contrast. This CT examination was performed using dose optimization techniques as appropriate, variously including the following: *Automated exposure control *Adjustment of mA and/or kV according to patient size (this includes techniques or standardized protocols for targeted exams where dose is matched to indication/reason for exam; i.e. extremities or head) *Use of iterative reconstruction technique DLP: 726 mGy-cm FINDINGS: There are regions of hypoattenuation loss of [place]verde-white differentiation in the bilateral occipital lobes, new since 06/23/2020; at least some of this has a subacute to chronic appearance. There is no evidence of acute intracranial hemorrhage. No abnormal mass effect or midline shift is seen. [place] to white matter differentiation is well preserved. No extra-axial fluid collections are identified. The ventricles are normal in size. The osseous structures and soft tissues are normal. The mastoid air cells and visualized portions of the paranasal sinuses are well aerated. 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 While at least some of this has a subacute to chronic appearance, an element of acute infarct would be difficult to exclude in the proper clinical setting. This would be better assessed with MRI. This critical result was discussed with Dr. Barrett on 03/28/2021 1:31 AM, and it was ascertained that the content and urgency of the report was understood at the time of direct communication.
--- NOTE | ~2021-03-27 | MR_ITS ---
MR ANGIOGRAPHY BRAIN WITHOUT CONTRAST CLINICAL INFORMATION: Confusion. COMPARISON: Head CT 03/28/2021. TECHNIQUE: A noncontrast [id number] MRA of the head is obtained. Vascular post-processing, including 2-dimensional and 3-dimensional reformatted images were created and reviewed on an independent workstation under concurrent physician supervision. Stenoses are graded per criteria similar to NASCET. FINDINGS: This is a very limited motion degraded MRA of the head. The maintenance technician 2nd shift may be occluded bilaterally beyond the P2 segments however assessment is limited by the degree of artifact. Nondiagnostic assessment for significant arterial stenoses intracranially given the degree of artifact. The basilar artery is not diagnostically assessed. Portions of the intracranial vasculature are not diagnostically assessed on this exam and I cannot diagnostically assess for aneurysms. MR/MR angio head wo con IMPRESSION: Nondiagnostic MRA of the head secondary to significant motion artifact. The maintenance technician 2nd shift may be occluded bilaterally beyond the P2 segments however assessment is limited by the degree of artifact. Possible severe stenoses and/or filling defects within the basilar artery, not diagnostically assessed given the degree of artifact. Consider a CTA of the head given the significant limitations of this study.
--- NOTE | ~2021-03-27 | MR_ITS ---
MRI OF THE BRAIN WITHOUT IV CONTRAST INDICATION: Confusion. COMPARISON: Head CT 03/28/2021 and MRA head 03/29/2021. TECHNIQUE: Multiplanar multisequence MR imaging of the brain was obtained without IV contrast. FINDINGS: There are acute infarcts within the left greater than right INVOICE CHECKER territory within the occipital lobes and there are small acute infarcts within the upper left greater than right cerebellum. Cytotoxic edema within the occipital lobes results in local cerebral sulcal effacement. No evidence of hemorrhagic transformation. Partial loss of the intradural left vertebral artery flow void and the INVOICE CHECKER flow voids bilaterally that would be better assessed with a CTA of the head given the limitations of the recent head MRA. There is background chronic microangiopathy and there are chronic lacunar infarcts within the right thalamus and within the brainstem. There is no hydrocephalus, extra-axial surface collection, or herniation. There is no intracranial hemorrhage on the gradient recalled echo acquisition. The midline structures are normal. The cerebellar tonsils are normally positioned. The cerebellum and brainstem are normal. The craniocervical junction is normal. Osseous marrow signal intensity is homogenous. The visualized soft tissues are unremarkable. 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 Cytotoxic edema within the occipital lobes results in local cerebral sulcal effacement. No evidence of hemorrhagic transformation. - Partial loss of the intradural left vertebral artery flow void and the [employer] flow voids bilaterally that would be better assessed with a CTA of the head given the limitations of the recent head MRA. 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
[2021-03-27 20:38] VITALS: BP 150/54; PULSE 88; RESP 16; TEMP 37.1; O2SAT 98; BMI 28.3
[2021-03-27 20:47] LABS: Glucose, Whole Blood 198 mg/dL (60-115)
--- NOTE | 2021-03-27 21:33 | ED.AMS ---
HPI - Altered Mental Status General Chief Complaint: Altered Mental Status Stated Complaint: ams Time Seen by Provider: 03/27/21 21:19 Source: EMS Mode of arrival: EMS Limitations: altered mental status History of Present Illness HPI narrative: Patient is brought to the emergency room by EMS. Per EMS, the family called reporting that the patient has been having altered mental status. Per EMS, the initial blood glucose was 60, patient given 50 g of oral glucose, milk and a sandwich, then rechecked in the point of care improved to 116. Patient is alert to self and place . Patient is not sure question the hospital, patient states that some test was done and now she is here. Patient notably confused and unable to give any significant history. Patient complaining of a headache. Patient's at bedside. The states that the patient has been altered and sometimes does not recognize them for the last 3 weeks. Patient's states that this has happened in the past Related Data Home Medications Medication Instructions Recorded Confirmed acetaminophen 650 mg 650 mg PO Q8H 12/08/20 02/28/21 tablet,extended release ipratropium bromide 21 mcg (0.03 2 spray INTRANASAL BID-TID PRN 12/08/20 02/28/21 %) nasal spray meclizine 25 mg tablet 25 mg PO BID tab 12/08/20 02/28/21 sucralfate 1 gram tablet 1 g PO TID tab 12/08/20 02/28/21 dicyclomine 1 tab PO TID 12/16/20 02/28/21 famotidine 1 tab PO BEDTIME 12/16/20 02/28/21 melatonin 1 tab PO BEDTIME 12/16/20 02/28/21 quetiapine 1 tab PO BEDTIME 12/16/20 02/28/21 valsartan 40 mg tablet 80 mg PO DAILY tab 02/28/21 02/28/21 Previous Rx's Medication Instructions Recorded Lantus Solostar U-100 Insulin 40 unit SUBCUT BEDTIME 30 Days #10 08/04/20 ml atorvastatin 20 mg PO DAILY 30 Days #30 tab 08/04/20 baclofen 10 mg PO TID 30 Days #90 tab 08/04/20 donepezil 5 mg PO DAILY 30 Days #30 tab 08/04/20 insulin lispro [Humalog KwikPen 2 - 14 unit SUBCUT DIRECTED 30 08/04/20 Insulin] Days #10 ml nystatin 1 appl TOPICAL BID 30 Days #1 g 08/04/20 oxybutynin chloride 15 mg PO DAILY 30 Days #30 tab 08/04/20 pantoprazole 40 mg PO BID@0630,1630 30 Days #30 08/04/20 tab benzonatate [Tessalon Perles] 100 mg PO TID PRN #20 cap 02/26/21 doxycycline hyclate 100 mg PO DAILY 7 Days #7 tab 02/26/21 prednisone 40 mg PO DAILY 5 Days #10 tab 02/26/21 aspirin 81 mg tablet,delayed 81 mg PO DAILY #90 tab 02/28/21 release metoprolol succinate 25 mg 25 mg PO DAILY 30 Days #30 tab 02/28/21 tablet,extended release 24 hr Allergies Allergy/AdvReac Type Severity Reaction Status Date / Time Sulfa (Sulfonamide Allergy Severe DIFFICULTY Verified 02/28/21 15:39 Antibiotics) BREATHING [SULFA (SULFONAMIDE ANTIBIOTICS)] cephalexin [From KEFLEX] Allergy Intermediate RASH,HIVES Verified 02/28/21 15:39 amoxicillin [AMOXICILLIN] Allergy Unknown DENIES Verified 02/28/21 15:39 THIS ALLERGY 03/28/2018 penicillin V Allergy Unknown Unknown Verified 02/28/21 15:39 sumatriptan [From IMITREX] AdvReac Severe HEART Verified 02/28/21 15:39 PALPITATIONS topiramate [From TOPAMAX] AdvReac Severe AGITATION Verified 02/28/21 15:39 Review of Systems Review of Systems: Yes Unobtainable due to mental status [facility] Past Medical History Medical History Anxiety Asthma Brain tumor CHF (congestive heart failure) Diabetes Diabetic acetonemia Dyspnea on exertion Essential hypertension HTN (hypertension) Myalgia and myositis Neuropathy Nocturnal hypoxemia Obesity (BMI 30-39.9) Orthopnea Restrictive lung disease Type 2 diabetes mellitus with unspecified complications UTI (urinary tract infection) Surgical History History of appendectomy History of arthroscopy of both knees History of hysterectomy History of pancreatic surgery Family History Family History Father No problems noted. Mother Angina at rest Sister Lung cancer Colon cancer COPD (chronic obstructive pulmonary disease) Social History Social History Household Members: Spouse Housing: Apartment Do you presently have visiting nurse or other home services: No Unable to assess alcohol history related to: Unable to respond, Unknown and Refusing to respond Alcohol intake: unknown Second Hand Smoke Exposure: No Advance Directives: No Advance Directives Information Provided: Yes Patient : No service: No Current occupational status: unemployed and disabled Current occupation: right handed Sexual orientation: Straight/Heterosexual Physical Exam Vital Signs: Vital Signs: Last Vital Signs Temp 98.3 F 03/28/21 02:10 Pulse 90 03/28/21 02:26 Resp 16 03/28/21 02:26 BP 167/78 H 03/28/21 02:26 Pulse Ox 97 03/28/21 02:26 Body Mass Index 28.3 Appearance: Alert. Oriented X2. No acute distress. Patient is confused Eyes: Pupils equal, round and reactive to light. ENT: Pharynx normal. Neck: Normal inspection. Neck supple. No lymph nodes noted. No crepitus CVS: Normal heart rate and rhythm. Pulses normal. Normal S1 and S2 Respiratory: No respiratory distress. Breath sounds normal. No Wheezing. No rales Abdomen: Soft and nontender. No rigidity. No distention. good BS x4 Skin: Skin warm and dry. Normal skin color. Normal skin turgor. Extremities: No lower extremity edema. No Lacerations. No Rash Neuro: Oriented X 2. No motor deficit. No sensory deficit. Moving all extermities. No slurred speech. Course Course Course Narrative: Patient's lactic acid elevated. Patient has chronic leukocytosis. Sepsis is not suspect. Patient will be treated empirically for a UTI. Patient has new bilateral occipital lobe changes. Patient will need an MRI in the morning. As mentioned above, the patient's reports new behavioral changes 3 weeks ago. Consent for the lumbar puncture was obtained from the patient's who is at bedside. Discussed the risks versus benefits, decided to go ahead and get the LP done. Patient was informed as well, however, she keeps forgetting everything we mentioned due to the encephalopathy LP was attempted, no CSF was obtained. Patient will likely need Interventional Radiology to the lumbar puncture tomorrow. I discussed all the above mentioned with Dr. Gamboa, patient being admitted. Approximately at 03:00, patient started becoming very confused, wanting to leave AMA. Patient states that she wants to go to the basement to meet her . I discussed the patient with Dr. Gamboa, patient was given 2 mg of Ativan and patient is now on a Section 12. MDM - Altered Mental Status Lab Data Result diagrams: 03/27/21 21:49 03/27/21 21:49 Labs: Lab Results 03/27/21 03/27/21 03/27/21 Range/Units 20:37 21:49 21:49 WBC 11.2 H (4.8-10.8) X10*3/uL RBC 4.17 L (4.20-5.50) X10*6/uL Hgb 13.3 (12.0-16.0) g/dl Hct 40.0 (37-47) % MCV 95.9 (80-98) fL MCH 31.9 (27.0-33.0) pg MCHC 33.3 (31.0-35.0) g/dl RDW 14.3 (11.0-16.0) % Plt Count 237 D (160-400) X10*3/uL MPV 9.1 L (9.4-12.3) fL Immature Gran % (Auto) 0.4 (0.0-0.4) % Neut % (Auto) 66.1 (45-73) % Lymph % (Auto) 23.3 (20-40) % [place] % (Auto) 8.3 (2-11) % Eos % (Auto) 1.5 (0-4) % Baso % (Auto) 0.4 (0-2) % Lymph # (Auto) 2.6 (1.2-4.9) X10*3/uL [place] # (Auto) 0.9 (0.1-1.2) X10*3/uL Eos # (Auto) 0.2 (0.0-0.4) X10*3/uL Baso # (Auto) 0.0 (0.0-0.2) X10*3/uL Abs Immat Gran (auto) 0.05 H (0.00-0.03) X10*3/uL Absolute Neuts (auto) 7.4 (2.0-8.3) X10*3/uL Absolute Nucleated RBC 0.000 (0.0-0.012) X10*3/uL Nucleated RBC % (auto) 0.0 (0.0-0.2) /100WBC PT (9.9-13.0) SEC INR (0.9-1.1) VBG pH (7.32-7.43) VBG pCO2 mmHg VBG pO2 mmHg VBG HCO3 (22-26) mmol/L VBG O2 Saturation % VBG Base Excess mmol/L Sodium 143 (135-145) mmol/L Potassium 4.4 (3.3-5.1) mmol/L Chloride 106 (96-108) mmol/L Carbon Dioxide 24 (22-29) mmol/L Anion Gap 17 (12-20) BUN 26 H D (9-16) mg/dL Creatinine 1.14 (0.5-1.4) mg/dL Estim Creat Clear Calc 44.5 Estimated GFR 48 POC Glucose 198 H (60-115) mg/dL Random Glucose 198 H D (60-115) mg/dL Lactic Acid (0.5-2.0) mmol/L Lactic Acid Fup @ 2Hr (0.5-2.0) mmol/L Calcium 10.3 H (8.4-10.2) mg/dL Total Bilirubin 0.3 (0.0-1.0) mg/dL Direct Bilirubin 0.2 (0.0-0.5) mg/dL AST 16 (5-31) U/L ALT 19 (0-31) U/L Alkaline Phosphatase 65 D (39-117) U/L Ammonia (13-55) umol/L Total Protein 6.8 (6.5-8.0) g/dL Albumin 4.1 (3.5-5.0) g/dL Urine Color Urine Appearance Urine pH (5.0-8.0) Ur Specific [place] (1.005-1.025) Urine Protein (NEG-TRACE) MG/DL Urine Glucose (UA) (NEG) MG/DL Urine Ketones (NEG) MG/DL Urine Blood (NEG) Urine Nitrite (NEG) Ur Leukocyte Esterase (NEG) Urine RBC (0) /HPF Urine WBC (0-4) /HPF Ur Squamous Epith Cells /LPF Urine Bacteria /LPF Urine Yeast /HPF Urine Opiates Screen (Not Detect) Ur Barbiturates Screen (Not Detect) Ur Phencyclidine Scrn (Not Detect) Ur Amphetamines Screen (Not Detect) U Benzodiazepines Scrn (Not Detect) Urine Cocaine Screen (Not Detect) U Marijuana (THC) Screen (Not Detect) Ethyl Alcohol mg/dL COVID-19 (FLOR) (Negative) COVID-19 Clin Com 03/27/21 03/27/21 03/27/21 Range/Units 21:49 21:49 21:49 WBC (4.8-10.8) X10*3/uL RBC (4.20-5.50) X10*6/uL Hgb (12.0-16.0) g/dl Hct (37-47) % MCV (80-98) fL MCH (27.0-33.0) pg MCHC (31.0-35.0) g/dl RDW (11.0-16.0) % Plt Count (160-400) X10*3/uL MPV (9.4-12.3) fL Immature Gran % (Auto) (0.0-0.4) % Neut % (Auto) (45-73) % Lymph % (Auto) (20-40) % [place] % (Auto) (2-11) % Eos % (Auto) (0-4) % Baso % (Auto) (0-2) % Lymph # (Auto) (1.2-4.9) X10*3/uL [place] # (Auto) (0.1-1.2) X10*3/uL Eos # (Auto) (0.0-0.4) X10*3/uL Baso # (Auto) (0.0-0.2) X10*3/uL Abs Immat Gran (auto) (0.00-0.03) X10*3/uL Absolute Neuts (auto) (2.0-8.3) X10*3/uL Absolute Nucleated RBC (0.0-0.012) X10*3/uL Nucleated RBC % (auto) (0.0-0.2) /100WBC PT 11.7 (9.9-13.0) SEC INR 1.0 (0.9-1.1) VBG pH (7.32-7.43) VBG pCO2 mmHg VBG pO2 mmHg VBG HCO3 (22-26) mmol/L VBG O2 Saturation % VBG Base Excess mmol/L Sodium (135-145) mmol/L Potassium (3.3-5.1) mmol/L Chloride (96-108) mmol/L Carbon Dioxide (22-29) mmol/L Anion Gap (12-20) BUN (9-16) mg/dL Creatinine (0.5-1.4) mg/dL Estim Creat Clear Calc Estimated GFR POC Glucose (60-115) mg/dL Random Glucose (60-115) mg/dL Lactic Acid 3.3 H* (0.5-2.0) mmol/L Lactic Acid Fup @ 2Hr (0.5-2.0) mmol/L Calcium (8.4-10.2) mg/dL Total Bilirubin (0.0-1.0) mg/dL Direct Bilirubin (0.0-0.5) mg/dL AST (5-31) U/L ALT (0-31) U/L Alkaline Phosphatase (39-117) U/L Ammonia 40 (13-55) umol/L Total Protein (6.5-8.0) g/dL Albumin (3.5-5.0) g/dL Urine Color Urine Appearance Urine pH (5.0-8.0) Ur Specific [place] (1.005-1.025) Urine Protein (NEG-TRACE) MG/DL Urine Glucose (UA) (NEG) MG/DL Urine Ketones (NEG) MG/DL Urine Blood (NEG) Urine Nitrite (NEG) Ur Leukocyte Esterase (NEG) Urine RBC (0) /HPF Urine WBC (0-4) /HPF Ur Squamous Epith Cells /LPF Urine Bacteria /LPF Urine Yeast /HPF Urine Opiates Screen (Not Detect) Ur Barbiturates Screen (Not Detect) Ur Phencyclidine Scrn (Not Detect) Ur Amphetamines Screen (Not Detect) U Benzodiazepines Scrn (Not Detect) Urine Cocaine Screen (Not Detect) U Marijuana (THC) Screen (Not Detect) Ethyl Alcohol mg/dL COVID-19 (FLOR) (Negative) COVID-19 Clin Com 03/27/21 03/27/21 03/27/21 Range/Units 21:49 21:51 23:27 WBC (4.8-10.8) X10*3/uL RBC (4.20-5.50) X10*6/uL Hgb (12.0-16.0) g/dl Hct (37-47) % MCV (80-98) fL MCH (27.0-33.0) pg MCHC (31.0-35.0) g/dl RDW (11.0-16.0) % Plt Count (160-400) X10*3/uL MPV (9.4-12.3) fL Immature Gran % (Auto) (0.0-0.4) % Neut % (Auto) (45-73) % Lymph % (Auto) (20-40) % [place] % (Auto) (2-11) % Eos % (Auto) (0-4) % Baso % (Auto) (0-2) % Lymph # (Auto) (1.2-4.9) X10*3/uL [place] # (Auto) (0.1-1.2) X10*3/uL Eos # (Auto) (0.0-0.4) X10*3/uL Baso # (Auto) (0.0-0.2) X10*3/uL Abs Immat Gran (auto) (0.00-0.03) X10*3/uL Absolute Neuts (auto) (2.0-8.3) X10*3/uL Absolute Nucleated RBC (0.0-0.012) X10*3/uL Nucleated RBC % (auto) (0.0-0.2) /100WBC PT (9.9-13.0) SEC INR (0.9-1.1) VBG pH 7.26 L (7.32-7.43) VBG pCO2 55 mmHg VBG pO2 47 mmHg VBG HCO3 25 (22-26) mmol/L VBG O2 Saturation 70.0 % VBG Base Excess -2.6 mmol/L Sodium (135-145) mmol/L Potassium (3.3-5.1) mmol/L Chloride (96-108) mmol/L Carbon Dioxide (22-29) mmol/L Anion Gap (12-20) BUN (9-16) mg/dL Creatinine (0.5-1.4) mg/dL Estim Creat Clear Calc Estimated GFR POC Glucose (60-115) mg/dL Random Glucose (60-115) mg/dL Lactic Acid (0.5-2.0) mmol/L Lactic Acid Fup @ 2Hr (0.5-2.0) mmol/L Calcium (8.4-10.2) mg/dL Total Bilirubin (0.0-1.0) mg/dL Direct Bilirubin (0.0-0.5) mg/dL AST (5-31) U/L ALT (0-31) U/L Alkaline Phosphatase (39-117) U/L Ammonia (13-55) umol/L Total Protein (6.5-8.0) g/dL Albumin (3.5-5.0) g/dL Urine Color YELLOW Urine Appearance HAZY Urine pH 5.5 (5.0-8.0) Ur Specific [place] >= 1.030 H (1.005-1.025) Urine Protein 1+ H (NEG-TRACE) MG/DL Urine Glucose (UA) NEG (NEG) MG/DL Urine Ketones 5 (NEG) MG/DL Urine Blood NEG (NEG) Urine Nitrite NEG (NEG) Ur Leukocyte Esterase 1+ H (NEG) Urine RBC 1-4 (0) /HPF Urine WBC 15-29 H (0-4) /HPF Ur Squamous Epith Cells 2+ /LPF Urine Bacteria 2+ /LPF Urine Yeast 2+ /HPF Urine Opiates Screen (Not Detect) Ur Barbiturates Screen (Not Detect) Ur Phencyclidine Scrn (Not Detect) Ur Amphetamines Screen (Not Detect) U Benzodiazepines Scrn (Not Detect) Urine Cocaine Screen (Not Detect) U Marijuana (THC) Screen (Not Detect) Ethyl Alcohol < 10 mg/dL COVID-19 (FLOR) (Negative) COVID-19 Clin Com 03/27/21 03/28/21 03/28/21 Range/Units 23:27 00:40 01:50 WBC (4.8-10.8) X10*3/uL RBC (4.20-5.50) X10*6/uL Hgb (12.0-16.0) g/dl Hct (37-47) % MCV (80-98) fL MCH (27.0-33.0) pg MCHC (31.0-35.0) g/dl RDW (11.0-16.0) % Plt Count (160-400) X10*3/uL MPV (9.4-12.3) fL Immature Gran % (Auto) (0.0-0.4) % Neut % (Auto) (45-73) % Lymph % (Auto) (20-40) % [place] % (Auto) (2-11) % Eos % (Auto) (0-4) % Baso % (Auto) (0-2) % Lymph # (Auto) (1.2-4.9) X10*3/uL [place] # (Auto) (0.1-1.2) X10*3/uL Eos # (Auto) (0.0-0.4) X10*3/uL Baso # (Auto) (0.0-0.2) X10*3/uL Abs Immat Gran (auto) (0.00-0.03) X10*3/uL Absolute Neuts (auto) (2.0-8.3) X10*3/uL Absolute Nucleated RBC (0.0-0.012) X10*3/uL Nucleated RBC % (auto) (0.0-0.2) /100WBC PT (9.9-13.0) SEC INR (0.9-1.1) VBG pH (7.32-7.43) VBG pCO2 mmHg VBG pO2 mmHg VBG HCO3 (22-26) mmol/L VBG O2 Saturation % VBG Base Excess mmol/L Sodium (135-145) mmol/L Potassium (3.3-5.1) mmol/L Chloride (96-108) mmol/L Carbon Dioxide (22-29) mmol/L Anion Gap (12-20) BUN (9-16) mg/dL Creatinine (0.5-1.4) mg/dL Estim Creat Clear Calc Estimated GFR POC Glucose (60-115) mg/dL Random Glucose (60-115) mg/dL Lactic Acid (0.5-2.0) mmol/L Lactic Acid Fup @ 2Hr 1.4 (0.5-2.0) mmol/L Calcium (8.4-10.2) mg/dL Total Bilirubin (0.0-1.0) mg/dL Direct Bilirubin (0.0-0.5) mg/dL AST (5-31) U/L ALT (0-31) U/L Alkaline Phosphatase (39-117) U/L Ammonia (13-55) umol/L Total Protein (6.5-8.0) g/dL Albumin (3.5-5.0) g/dL Urine Color Urine Appearance Urine pH (5.0-8.0) Ur Specific [place] (1.005-1.025) Urine Protein (NEG-TRACE) MG/DL Urine Glucose (UA) (NEG) MG/DL Urine Ketones (NEG) MG/DL Urine Blood (NEG) Urine Nitrite (NEG) Ur Leukocyte Esterase (NEG) Urine RBC (0) /HPF Urine WBC (0-4) /HPF Ur Squamous Epith Cells /LPF Urine Bacteria /LPF Urine Yeast /HPF Urine Opiates Screen Not Detected (Not Detect) Ur Barbiturates Screen Not Detected (Not Detect) Ur Phencyclidine Scrn Not Detected (Not Detect) Ur Amphetamines Screen Not Detected (Not Detect) U Benzodiazepines Scrn Not Detected (Not Detect) Urine Cocaine Screen Not Detected (Not Detect) U Marijuana (THC) Screen Not Detected (Not Detect) Ethyl Alcohol mg/dL COVID-19 (FLOR) Negative (Negative) COVID-19 Clin Com See Note 03/28/21 Range/Units 03:03 WBC (4.8-10.8) X10*3/uL RBC (4.20-5.50) X10*6/uL Hgb (12.0-16.0) g/dl Hct (37-47) % MCV (80-98) fL MCH (27.0-33.0) pg MCHC (31.0-35.0) g/dl RDW (11.0-16.0) % Plt Count (160-400) X10*3/uL MPV (9.4-12.3) fL Immature Gran % (Auto) (0.0-0.4) % Neut % (Auto) (45-73) % Lymph % (Auto) (20-40) % [place] % (Auto) (2-11) % Eos % (Auto) (0-4) % Baso % (Auto) (0-2) % Lymph # (Auto) (1.2-4.9) X10*3/uL [place] # (Auto) (0.1-1.2) X10*3/uL Eos # (Auto) (0.0-0.4) X10*3/uL Baso # (Auto) (0.0-0.2) X10*3/uL Abs Immat Gran (auto) (0.00-0.03) X10*3/uL Absolute Neuts (auto) (2.0-8.3) X10*3/uL Absolute Nucleated RBC (0.0-0.012) X10*3/uL Nucleated RBC % (auto) (0.0-0.2) /100WBC PT (9.9-13.0) SEC INR (0.9-1.1) VBG pH (7.32-7.43) VBG pCO2 mmHg VBG pO2 mmHg VBG HCO3 (22-26) mmol/L VBG O2 Saturation % VBG Base Excess mmol/L Sodium (135-145) mmol/L Potassium (3.3-5.1) mmol/L Chloride (96-108) mmol/L Carbon Dioxide (22-29) mmol/L Anion Gap (12-20) BUN (9-16) mg/dL Creatinine (0.5-1.4) mg/dL Estim Creat Clear Calc Estimated GFR POC Glucose 204 H (60-115) mg/dL Random Glucose (60-115) mg/dL Lactic Acid (0.5-2.0) mmol/L Lactic Acid Fup @ 2Hr (0.5-2.0) mmol/L Calcium (8.4-10.2) mg/dL Total Bilirubin (0.0-1.0) mg/dL Direct Bilirubin (0.0-0.5) mg/dL AST (5-31) U/L ALT (0-31) U/L Alkaline Phosphatase (39-117) U/L Ammonia (13-55) umol/L Total Protein (6.5-8.0) g/dL Albumin (3.5-5.0) g/dL Urine Color Urine Appearance Urine pH (5.0-8.0) Ur Specific [place] (1.005-1.025) Urine Protein (NEG-TRACE) MG/DL Urine Glucose (UA) (NEG) MG/DL Urine Ketones (NEG) MG/DL Urine Blood (NEG) Urine Nitrite (NEG) Ur Leukocyte Esterase (NEG) Urine RBC (0) /HPF Urine WBC (0-4) /HPF Ur Squamous Epith Cells /LPF Urine Bacteria /LPF Urine Yeast /HPF Urine Opiates Screen (Not Detect) Ur Barbiturates Screen (Not Detect) Ur Phencyclidine Scrn (Not Detect) Ur Amphetamines Screen (Not Detect) U Benzodiazepines Scrn (Not Detect) Urine Cocaine Screen (Not Detect) U Marijuana (THC) Screen (Not Detect) Ethyl Alcohol mg/dL COVID-19 (FLOR) (Negative) COVID-19 Clin Com Imaging Data Head CT: Radiologist's impression: FINDINGS: There are regions of hypoattenuation loss of [place]-white differentiation in the bilateral occipital lobes, new since 06/23/2020; at least some of this has a subacute to chronic appearance. There is no evidence of acute intracranial hemorrhage. No abnormal mass effect or midline shift is seen. [place] to white matter differentiation is well preserved. No extra-axial fluid collections are identified. The ventricles are normal in size. The osseous structures and soft tissues are normal. The mastoid air cells and visualized portions of the paranasal sinuses are well aerated. 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 While at least some of this has a subacute to chronic appearance, an element of acute infarct would be difficult to exclude in the proper clinical setting. This would be better assessed with MRI. Discharge Plan Discharge Clinical Impression: Encephalopathy, UTI (urinary tract infection) Patient Disposition: Admitted As Inpatient
[2021-03-27 21:56] LABS: MANUAL DIFF FLAG NO; Venous Blood Gas Refer to POC result
[2021-03-27 21:58] LABS: Basophils Percent Auto 0.4 % (0-2); Eosinophils Absolute Auto 0.2 X10*3/uL (0.0-0.4); Eosinophils Percent Auto 1.5 % (0-4); Hemoglobin 13.3 g/dl (12.0-16.0); Imm Gran Abs Auto 0.05 X10*3/uL (0.00-0.03); Imm Gran Pct Auto 0.4 % (0.0-0.4); Lymphocytes Absolute Auto 2.6 X10*3/uL (1.2-4.9); Lymphocytes Percent Auto 23.3 % (20-40); Mean Corpuscular HGB Conc 33.3 g/dl (31.0-35.0); Mean Corpuscular Hemoglobin 31.9 pg (27.0-33.0); Mean Corpuscular Volume 95.9 fL (80-98); Mean Platelet Volume 9.1 fL (9.4-12.3); Monocytes Absolute Auto 0.9 X10*3/uL (0.1-1.2); Monocytes Percent Auto 8.3 % (2-11); Neutrophils Absolute Auto 7.4 X10*3/uL (2.0-8.3); Neutrophils Percent Auto 66.1 % (45-73); Platelet Count 237 X10*3/uL (160-400); Red Blood Count 4.17 X10*6/uL (4.20-5.50); Red Cell Distribution Width 14.3 % (11.0-16.0); White Blood Count 11.2 X10*3/uL (4.8-10.8)
[2021-03-27 21:59] LABS: VBG Base Excess -2.6 mmol/L; VBG HCO3 25 mmol/L (22-26); VBG pCO2 55 mmHg; VBG pH 7.26 (7.32-7.43); VBG pO2 47 mmHg
[2021-03-27] MEDS: Acetaminophen 325 MG TABLET 650 MG PO (22:01)
[2021-03-27 22:03] LABS: Prothrombin Time 11.7 SEC (9.9-13.0)
[2021-03-27 22:18] LABS: Ammonia 40 umol/L (13-55)
[2021-03-27 22:22] LABS: Alanine Aminotransferase 19 U/L (0-31); Albumin Level 4.1 g/dL (3.5-5.0); Alkaline Phosphatase 65 U/L (39-117); Anion Gap 17 (12-20); Aspartate Amino Transferase 16 U/L (5-31); Bilirubin Direct 0.2 mg/dL (0.0-0.5); Bilirubin Total 0.3 mg/dL (0.0-1.0); Blood Urea Nitrogen 26 mg/dL (9-16); Calcium 10.3 mg/dL (8.4-10.2); Carbon Dioxide 24 mmol/L (22-29); Chloride 106 mmol/L (96-108); Creatinine Clr Calc Pharmacy 44.5; Estimated Glomerular Filt Rate 48; Glucose Random 198 mg/dL (60-115); Potassium 4.4 mmol/L (3.3-5.1); Sodium 143 mmol/L (135-145); Total Protein 6.8 g/dL (6.5-8.0)
[2021-03-27 22:26] LABS: Ethanol < 10 mg/dL
[2021-03-27 22:31] LABS: Lactic Acid 3.3 mmol/L (0.5-2.0)
--- NOTE | 2021-03-27 22:33 | PC.NURSE ---
Lactic 3.3 MD notified
[2021-03-27] MEDS: Ibuprofen 600 MG TABLET PO (23:17)
[2021-03-27 23:23] VITALS: PULSE 96; RESP 16
[2021-03-27] MEDS: levoFLOXacin/D5W 500 MG/100 ML PIGGYBACK 100 MG IV (23:24)
[2021-03-27] MEDS: 0.9 % Sodium Chloride 1,000 ML 999 ML IV (23:25)
[2021-03-27 23:35] LABS: Appearance Urine HAZY; Color Urine YELLOW; Glucose Urine UA NEG (NEG); Leukocyte Esterase Urine 1+ (NEG); Nitrite Urine NEG (NEG); PH 5.5 (5.0-8.0); Specific Gravity - Urine >= 1.030 (1.005-1.025); UACC Culture Trigger YES; Urine Blood NEG (NEG); Urine Ketones 5 MG/DL (NEG); Urine Protein 1+ MG/DL (NEG-TRACE)
[2021-03-27 23:41] LABS: Bacteria Urine 2+ /LPF; Squamous Epithelial Cell Urine 2+ /LPF
[2021-03-27 23:54] LABS: Reflex Lactate? Lactic Acid Added
[2021-03-28] VITALS (7 sets, daily range): BP systolic 132–167; BP diastolic 63–78; PULSE 83–111; RESP 16–28; TEMP 36.2–36.8; O2SAT 95–97
[2021-03-28 00:12] LABS: Amphetamine Screen Urine Not Detected (Not Detect); Barbiturates, Urine Not Detected (Not Detect); Benzodiazepines Screen Urine Not Detected (Not Detect); Cannabinoid Screen Urine Not Detected (Not Detect); Cocaine Screen Urine Not Detected (Not Detect); Opiate Screen Urine Not Detected (Not Detect); Phencyclidine Screen Urine Not Detected (Not Detect)
--- NOTE | 2021-03-28 00:38 | PC.NURSE ---
per MD, waiting until 1L bag of NS is finished infusing before collecting repeat Lactic
[2021-03-28 00:57] LABS: COVID-19 Test Negative (Negative)
--- NOTE | 2021-03-28 02:08 | PC.NURSE ---
1L NS finished infusing, fluid slow to infuse due to patient bending her arm. aware
[2021-03-28 02:10] LABS: ~Lactic Acid-LAB USE ONLY 1.4 mmol/L (0.5-2.0)
--- NOTE | 2021-03-28 02:24 | PC.NURSE ---
at bedside for lumbar puncture pt tolerating procedure well no specimen obtained at this time
[2021-03-28] MEDS: LORazepam 2 MG/ML VIAL IVPUSH (02:59)
--- NOTE | 2021-03-28 03:06 | PC.NURSE ---
pt suddenly got increasingly agitated, confused and wanting to leave by attempting to hop over bed rails. this nurse informed the MD (Arnold) and told pt that she needed to stay per doctors order as she was not in a state to leave. pt was not oreinted to place, date or situation. pt stated she was in [place] and also thought she was in her living room. security called to bedside to help patient stay in bed MD added 2mg Ativan IVP this nurse administered Ativan per NOV. pt initially refusing to have blood sugar taken but laser technician Jenni was able to obtain POC = 202 laser technician Jenni remaining at bedside with patient. MD aware.
[2021-03-28 03:08] LABS: Glucose, Whole Blood 204 mg/dL (60-115)
--- NOTE | 2021-03-28 03:33 | P.HPHOSP_ITS ---
History of Present Illness Date of Service: 03/28/21 Chief Complaint: AMS 65-year-old female with a past medical history of hypertension, hyperlipidemia, diabetes, neuropathy, obesity, restrictive lung disease, nocturnal hypoxemia, history of brain tumor/? Pseudotumor cerebri/? INSPECTOR CIRCUITRY NEGATIVE shunt; history of toxic metabolic encephalopathy secondary to UTI; presented to the hospital with a chief complaint of altered mental status. At the time of my entry patient is alert and awake, lying in the bed comfortably, oriented times 2-3, but intermittently goes off the topic with tangential thoughts. Most of the history obtained from the patient's at bedside. Also spoke to the ER staff. Reportedly patient has been confused lately more so from past 3 weeks; denies any falls or head strike. Patient reports she has been having urinary frequency for the past few days. Complains of the headache, denies any blurry vision, seizure-like activity, neck stiffness. Denies any fevers. Denies any cough or sputum production. Denies any chest pain palpitations lightheadedness or dizziness. ER course: ER team mentioned the patient is pleasantly confused but complained of the headache; no meningeal signs noted; lab showed mild leukocytosis, lactic acidosis and fingerstick glucose in 60; followed by the fingerstick glucose improved to 198; urinalysis is slightly abnormal consistent with mild UTI; patient was given Levaquin as patient is aware to penicillins and cephalosporins. CT head showed subacute to chronic occipital infarct; patient exam was grossly nonfocal; ER team tried to do an LP on the patient-attempt was failed given the patient's body habitus. As per the patient has been patient's mental status is not her baseline. Later on patient threatened to leave AMA; as patient clearly does not have cap acity, ER team had Section [address] for the patient. [facility] Medical History (Updated 04/04/21 @ 13:25 by Angela Mcneil MD) Anxiety Asthma CHF (congestive heart failure) Diabetes Diabetic acetonemia Dyspnea on exertion Essential hypertension HTN (hypertension) Myalgia and myositis Neuropathy Nocturnal hypoxemia Obesity (BMI 30-39.9) Orthopnea Restrictive lung disease Type 2 diabetes mellitus with unspecified complications UTI (urinary tract infection) Family History Father No problems noted. Mother Angina at rest Sister Lung cancer Colon cancer COPD (chronic obstructive pulmonary disease) Surgical History History of appendectomy History of arthroscopy of both knees History of hysterectomy History of pancreatic surgery Social History Household Members: Spouse Housing: House Do you presently have visiting nurse or other home services: No Unable to assess alcohol history related to: Refusing to respond Alcohol intake: unknown Patient Tobacco Use Status: Never used Tobacco e-Cigarette/Vaping Use: Never Used Second Hand Smoke Exposure: No Use of substances other than those prescribed or required for medical reasons: Refusing to respond Currently Displaying Signs/Symptoms of Drug Intoxication Withdrawal: No Advance Directives: Yes Advance Directives on File: Yes Advance Directives Date on File: 07/27/20 Do you have thoughts of harming others: None Do you have a plan to hurt others: No Plan Recently lost weight without trying: Unsure Patient : No : No Poor oral hygiene: No service: No Current occupational status: unemployed and disabled Current occupation: right handed Sexual orientation: Straight/Heterosexual Meds Allergies Allergy/AdvReac Type Severity Reaction Status Date / Time Sulfa (Sulfonamide Allergy Severe DIFFICULTY Verified 02/28/21 15:39 Antibiotics) BREATHING [SULFA (SULFONAMIDE ANTIBIOTICS)] cephalexin [From KEFLEX] Allergy Intermediate RASH,HIVES Verified 02/28/21 15:39 amoxicillin [AMOXICILLIN] Allergy Unknown DENIES Verified 02/28/21 15:39 THIS ALLERGY 03/28/2018 penicillin V Allergy Unknown Unknown Verified 02/28/21 15:39 sumatriptan [From IMITREX] AdvReac Severe HEART Verified 02/28/21 15:39 PALPITATIONS topiramate [From TOPAMAX] AdvReac Severe AGITATION Verified 02/28/21 15:39 Active Medications: Current Medications Generic Name Dose Route Start Last Admin Trade Name Freq PRN Reason Stop Dose Admin Acetaminophen 650 mg 03/28/21 03:25 Acetaminophen 325 Mg Tablet PO Q6H PRN Pain, Mild (Pain Scale 1-3) Aspirin 81 mg 03/28/21 09:00 Aspirin Enteric Coated 81 Mg Tablet. PO DAILY FRANCHESKA Insulin Human Lispro 0 unit 03/28/21 07:30 Insulin Lispro 100 Unit/Ml 3 Ml Vial SUBCUT QIDACHS [facility] Protocol Melatonin 6 mg 03/28/21 03:25 Melatonin 3 Mg Tablet PO BEDTIME PRN Insomnia Pharmacy Consult 1 each 03/27/21 23:56 Consult Rx Perform Med Rec MISCELLANE ONCE PRN Consult order Senna 17.2 mg 03/28/21 03:25 Sennosides 8.6 Mg Tablet PO BEDTIME PRN Constipation Sodium Chloride 3 ml 03/28/21 08:00 0.9 % Sodium Chloride Flush 3 [facility] Medications Medication Instructions Recorded Confirmed Last Taken Type acetaminophen 650 mg 650 mg PO Q8H PRN 12/08/20 04/03/21 Unknown History tablet,extended release (Tylenol Arthritis Pain) meclizine 25 mg tablet 25 mg PO BID PRN tab 12/08/20 03/28/21 Unknown History dicyclomine 20 mg tablet 1 tab PO TID 12/16/20 04/03/21 Unknown History quetiapine 50 mg tablet 50 mg PO BEDTIME 12/16/20 04/04/21 Unknown History atorvastatin 20 mg tablet 20 mg PO BEDTIME 03/28/21 04/03/21 Unknown History donepezil 5 mg tablet 5 mg PO BEDTIME 03/28/21 04/03/21 Unknown History insulin lispro 100 unit/mL 2 - 14 unit SUBCUT TIDAC 03/28/21 04/03/21 Unknown History subcutaneous pen (Humalog KwikPen (U-100) Insulin) valsartan 80 mg tablet 80 mg PO DAILY 03/28/21 04/04/21 Unknown History multivitamin 1 tab PO DAILY 04/04/21 04/04/21 Unknown History Physical Exam Vital Signs and Narrative: Vital Signs: Last Vital Signs Temp 98.3 F 03/28/21 02:10 Pulse 90 03/28/21 02:26 Resp 16 03/28/21 02:26 BP 167/78 H 03/28/21 02:26 Pulse Ox 97 03/28/21 02:26 Body Mass Index 28.3 Gen: Appears be in no acute distress; breathing comfortably. HEENT: NCAT, Moist mucosa. Neck is supple; pupils equal and reactive Pulmonary: Vesicular breath sounds, fair air entry CVS: Normal S1-S2 Abdomen: BS+, Soft, Nontender Extremities: Warm well perfused Neuro: Alert and awake. Moves all extremities equally; speech is clear. Sensations intact; negative meningeal signs. Results Labs CBC and Chem 7: 03/28/21 05:53 03/28/21 05:53 Labs: Laboratory Results - last 24 hr 03/27/21 03/27/21 03/27/21 20:37 21:49 21:49 MCV 95.9 MCH 31.9 MCHC 33.3 RDW 14.3 Plt Count 237 D MPV 9.1 L Immature Gran % (Auto) 0.4 Neut % (Auto) 66.1 Lymph % (Auto) 23.3 [place] % (Auto) 8.3 Eos % (Auto) 1.5 Baso % (Auto) 0.4 Lymph # (Auto) 2.6 [place] # (Auto) 0.9 Eos # (Auto) 0.2 Baso # (Auto) 0.0 Abs Immat Gran (auto) 0.05 H Absolute Neuts (auto) 7.4 Absolute Nucleated RBC 0.000 Nucleated RBC % (auto) 0.0 PT INR VBG pH VBG pCO2 VBG pO2 VBG HCO3 VBG O2 Saturation VBG Base Excess Anion Gap 17 Estim Creat Clear Calc 44.5 Estimated GFR 48 POC Glucose 198 H Random Glucose 198 H D Lactic Acid Lactic Acid Fup @ 2Hr Calcium 10.3 H Total Bilirubin 0.3 Direct Bilirubin 0.2 AST 16 ALT 19 Alkaline Phosphatase 65 D Ammonia Total Protein 6.8 Albumin 4.1 Urine Color Urine Appearance Urine pH Ur Specific [place] Urine Protein Urine Glucose (UA) Urine Ketones Urine Blood Urine Nitrite Ur Leukocyte Esterase Urine RBC Urine WBC Ur Squamous Epith Cells Urine Bacteria Urine Yeast Urine Opiates Screen Ur Barbiturates Screen Ur Phencyclidine Scrn Ur Amphetamines Screen U Benzodiazepines Scrn Urine Cocaine Screen U Marijuana (THC) Screen Ethyl Alcohol COVID-19 (FLOR) COVID-19 Clin Com 03/27/21 03/27/21 03/27/21 21:49 21:49 21:49 MCV MCH MCHC RDW Plt Count MPV Immature Gran % (Auto) Neut % (Auto) Lymph % (Auto) [place] % (Auto) Eos % (Auto) Baso % (Auto) Lymph # (Auto) [place] # (Auto) Eos # (Auto) Baso # (Auto) Abs Immat Gran (auto) Absolute Neuts (auto) Absolute Nucleated RBC Nucleated RBC % (auto) PT 11.7 INR 1.0 VBG pH VBG pCO2 VBG pO2 VBG HCO3 VBG O2 Saturation VBG Base Excess Anion Gap Estim Creat Clear Calc Estimated GFR POC Glucose Random Glucose Lactic Acid 3.3 H* Lactic Acid Fup @ 2Hr Calcium Total Bilirubin Direct Bilirubin AST ALT Alkaline Phosphatase Ammonia 40 Total Protein Albumin Urine Color Urine Appearance Urine pH Ur Specific [place] Urine Protein Urine Glucose (UA) Urine Ketones Urine Blood Urine Nitrite Ur Leukocyte Esterase Urine RBC Urine WBC Ur Squamous Epith Cells Urine Bacteria Urine Yeast Urine Opiates Screen Ur Barbiturates Screen Ur Phencyclidine Scrn Ur Amphetamines Screen U Benzodiazepines Scrn Urine Cocaine Screen U Marijuana (THC) Screen Ethyl Alcohol COVID-19 (FLOR) COVID-Zvents 03/27/21 03/27/21 03/27/21 21:49 21:51 23:27 MCV MCH MCHC RDW Plt Count MPV Immature Gran % (Auto) Neut % (Auto) Lymph % (Auto) [place] % (Auto) Eos % (Auto) Baso % (Auto) Lymph # (Auto) [place] # (Auto) Eos # (Auto) Baso # (Auto) Abs Immat Gran (auto) Absolute Neuts (auto) Absolute Nucleated RBC Nucleated RBC % (auto) PT INR VBG pH 7.26 L VBG pCO2 55 VBG pO2 47 VBG HCO3 25 VBG O2 Saturation 70.0 VBG Base Excess -2.6 Anion Gap Estim Creat Clear Calc Estimated GFR POC Glucose Random Glucose Lactic Acid Lactic Acid Fup @ 2Hr Calcium Total Bilirubin Direct Bilirubin AST ALT Alkaline Phosphatase Ammonia Total Protein Albumin Urine Color YELLOW Urine Appearance HAZY Urine pH 5.5 Ur Specific [place] >= 1.030 H Urine Protein 1+ H Urine Glucose (UA) NEG Urine Ketones 5 Urine Blood NEG Urine Nitrite NEG Ur Leukocyte Esterase 1+ H Urine RBC 1-4 Urine WBC 15-29 H Ur Squamous Epith Cells 2+ Urine Bacteria 2+ Urine Yeast 2+ Urine Opiates Screen Ur Barbiturates Screen Ur Phencyclidine Scrn Ur Amphetamines Screen U Benzodiazepines Scrn Urine Cocaine Screen U Marijuana (THC) Screen Ethyl Alcohol < 10 COVID-19 (FLOR) COVID-Zvents 03/27/21 03/28/21 03/28/21 23:27 00:40 01:50 MCV MCH MCHC RDW Plt Count MPV Immature Gran % (Auto) Neut % (Auto) Lymph % (Auto) [place] % (Auto) Eos % (Auto) Baso % (Auto) Lymph # (Auto) [place] # (Auto) Eos # (Auto) Baso # (Auto) Abs Immat Gran (auto) Absolute Neuts (auto) Absolute Nucleated RBC Nucleated RBC % (auto) PT INR VBG pH VBG pCO2 VBG pO2 VBG HCO3 VBG O2 Saturation VBG Base Excess Anion Gap Estim Creat Clear Calc Estimated GFR POC Glucose Random Glucose Lactic Acid Lactic Acid Fup @ 2Hr 1.4 Calcium Total Bilirubin Direct Bilirubin AST ALT Alkaline Phosphatase Ammonia Total Protein Albumin Urine Color Urine Appearance Urine pH Ur Specific [place] Urine Protein Urine Glucose (UA) Urine Ketones Urine Blood Urine Nitrite Ur Leukocyte Esterase Urine RBC Urine WBC Ur Squamous Epith Cells Urine Bacteria Urine Yeast Urine Opiates Screen Not Detected Ur Barbiturates Screen Not Detected Ur Phencyclidine Scrn Not Detected Ur Amphetamines Screen Not Detected U Benzodiazepines Scrn Not Detected Urine Cocaine Screen Not Detected U Marijuana (THC) Screen Not Detected Ethyl Alcohol COVID-19 (FLOR) Negative COVID-19 Clin Com See Note 03/28/21 03:03 MCV MCH MCHC RDW Plt Count MPV Immature Gran % (Auto) Neut % (Auto) Lymph % (Auto) [place] % (Auto) Eos % (Auto) Baso % (Auto) Lymph # (Auto) [place] # (Auto) Eos # (Auto) Baso # (Auto) Abs Immat Gran (auto) Absolute Neuts (auto) Absolute Nucleated RBC Nucleated RBC % (auto) PT INR VBG pH VBG pCO2 VBG pO2 VBG HCO3 VBG O2 Saturation VBG Base Excess Anion Gap Estim Creat Clear Calc Estimated GFR POC Glucose 204 H Random Glucose Lactic Acid Lactic Acid Fup @ 2Hr Calcium Total Bilirubin Direct Bilirubin AST ALT Alkaline Phosphatase Ammonia Total Protein Albumin Urine Color Urine Appearance Urine pH Ur Specific [place] Urine Protein Urine Glucose (UA) Urine Ketones Urine Blood Urine Nitrite Ur Leukocyte Esterase Urine RBC Urine WBC Ur Squamous Epith Cells Urine Bacteria Urine Yeast Urine Opiates Screen Ur Barbiturates Screen Ur Phencyclidine Scrn Ur Amphetamines Screen U Benzodiazepines Scrn Urine Cocaine Screen U Marijuana (THC) Screen Ethyl Alcohol COVID-19 (FLOR) COVID-19 Clin Com Imaging Radiologist's Impressions: Impressions Head CT 03/28/21 00:20 IMPRESSION: Regions of infarct in the bilateral occipital lobes appear new from 06/23/2020. While at least some of this has a subacute to chronic appearance, an element of acute infarct would be difficult to exclude in the proper clinical setting. This would be better assessed with MRI. This critical result was discussed with Dr. Barrett on 03/28/2021 1:31 AM, and it was ascertained that the content and urgency of the report was understood at the time of direct communication. Assessment and Plan (1) Encephalopathy: Status: Acute 65-year-old female with a past medical history of hypertension, hyperli pidemia, diabetes, history of encephalopathy secondary to UTI,? Pseudotumor cerebri/INSPECTOR CIRCUITRY NEGATIVE shunt presented to the hospital with a chief complaint of confusion. Noted to have mild UTI. Altered mental status: Likely toxic metabolic encephalopathy in the setting of UTI, which is being treated with antibiotics. Patient's also reports that patient has a history of pseudotumor cerebri and INSPECTOR CIRCUITRY NEGATIVE shunt. Has been following with the urologist and mention is been stable. ER team tried LP but unsuccessful attempt Will consult patient's primary neurologist for further recommendations. Patient is being sectioned 12 in the ER as patient is threatening to leave AMA. Patient does not have capacity.1:1 observation for safety.Psychiatric consult CVA: Patient CT head showed subacute to chronic occipital infarcts. Fall precautions. PT/OT. Echocardiogram with bubble study. Speech and swallow eval. Neurology consult as mentioned. UTI: Continue Levaquin. Follow-up cultures. Lactic acidosis: Gentle IV fluids. Diabetes: Insulin sliding scale. All other chronic conditions, home medications will be continued once med rec is done. Diet: Dysphagia screen/speech and swallow eval. DVT prophylaxis: SCD boots Code status: Full code Quality Stroke Does the patient have a stroke diagnosis?: No VTE Prior VTE?: No VTE Risk Level:: Medical - moderate - high VTE Device Contraindication: N/A - Device Ordered VTE Drug Contraindication: Treatment Not Indicated
--- NOTE | 2021-03-28 03:53 | ECG_ITS ---
Test Reason : AMS Blood Pressure : / mmHG Vent. Rate : 093 BPM Atrial Rate : 093 BPM P-R Int : 126 ms QRS Dur : 090 ms QT Int : 334 ms P-R-T Axes : 027 038 -06 degrees QTc Int : 415 ms Sinus rhythm with Premature atrial complexes Cannot rule out Inferior infarct , age undetermined Abnormal ECG When compared with ECG of 26-FEB-2021 14:49, Premature atrial complexes are now Present Minimal criteria for Inferior infarct are now Present Referred By: Jose Gamboa Electronically Signed By:BAIRON IVY
[2021-03-28 04:31] LABS: Troponin-I High Sensitivity 6.6 ng/L (<3.5-17.0)
--- NOTE | 2021-03-28 05:15 | PC.NURSE ---
pt requesting to use the bathroom, this nurse offered pt bed [place] but pt refused to use it, this nurse then brought in bedside commode and pt refused to use commode. pt still confused and getting up attempting to walk to bathroom. when encouraged again to use bedside commode, pt became slightly agitated and aggressive with this nurse and bedside tech. this nurse assisted pt to the bathroom, gait was unsteady, patient not easily redirected and stated the toilet needs to stop moving . pt was able to urinate without issue. signal operator technical Kerry assisted pt back to bed. pt back in bed at this time. call sandra in reach.
[2021-03-28 06:40] LABS: MANUAL DIFF FLAG NO
[2021-03-28 06:47] LABS: Basophils Percent Auto 0.3 % (0-2); Eosinophils Absolute Auto 0.2 X10*3/uL (0.0-0.4); Eosinophils Percent Auto 2.1 % (0-4); Hematocrit 37.5 % (37-47); Hemoglobin 12.5 g/dl (12.0-16.0); Imm Gran Abs Auto 0.05 X10*3/uL (0.00-0.03); Imm Gran Pct Auto 0.6 % (0.0-0.4); Lymphocytes Absolute Auto 2.2 X10*3/uL (1.2-4.9); Lymphocytes Percent Auto 27.9 % (20-40); Mean Corpuscular HGB Conc 33.3 g/dl (31.0-35.0); Mean Corpuscular Hemoglobin 31.9 pg (27.0-33.0); Mean Corpuscular Volume 95.7 fL (80-98); Mean Platelet Volume 9.4 fL (9.4-12.3); Monocytes Absolute Auto 0.7 X10*3/uL (0.1-1.2); Monocytes Percent Auto 8.6 % (2-11); Neutrophils Absolute Auto 4.7 X10*3/uL (2.0-8.3); Neutrophils Percent Auto 60.5 % (45-73); Platelet Count 220 X10*3/uL (160-400); Red Blood Count 3.92 X10*6/uL (4.20-5.50); Red Cell Distribution Width 14.3 % (11.0-16.0); White Blood Count 7.8 X10*3/uL (4.8-10.8)
[2021-03-28 07:12] LABS: Anion Gap 17 (12-20); Blood Urea Nitrogen 25 mg/dL (9-16); Calcium 9.4 mg/dL (8.4-10.2); Carbon Dioxide 20 mmol/L (22-29); Chloride 109 mmol/L (96-108); Creatinine Clr Calc Pharmacy 52.4; Estimated Glomerular Filt Rate 58; Glucose Random 245 mg/dL (60-115); Potassium 3.9 mmol/L (3.3-5.1); Sodium 142 mmol/L (135-145)
[2021-03-28 07:13] LABS: Magnesium 1.7 mg/dL (1.6-2.6)
[2021-03-28 07:37] LABS: Glucose, Whole Blood 237 mg/dL (60-115)
[2021-03-28] MEDS: Insulin Lispro 100 UNIT/ML 3 ML VIAL SUBCUT ×3 (07:39→20:49)
--- NOTE | 2021-03-28 08:07 | PHA.MEDREC ---
Pharmacy Consult ? Medication Reconciliation Pharmacy has completed the medication reconciliation. Patient is very poor historian. Med rec was completed from pharmacy fill and MD office. Patient states they have not taken medications in >1week.
[2021-03-28] MEDS: Aspirin Enteric Coated 81 MG TABLET.DR PO (08:38)
[2021-03-28] MEDS: 0.9 % Sodium Chloride Flush 3 ML SYRINGE IVFLUSH ×3 (08:38→20:51)
--- NOTE | 2021-03-28 11:59 | MHC.SL.SWA ---
Speech Pathologist Impression: Oral Phase Dysphagia Risk of Aspiration Due to: Reduced Cognition Dysphasia Diet Status: Downgrade Liquid Consistency and Strategies for Safe Swallow: Liquid Intake Recommendation: Thin Liquid Intake Strategies: Solid Food Consistency: Dietary Recommendations: Grnd/Mech Altered (NDD2) Additional Modifications to Solid Foods: Oral Medication Intake: Whole with Puree Compensatory Strategies and Precautions to be Taken for Safe Swallow: Sitting Upright (90 deg) Liquids from Cup Liquids from Straw Small Bites and Sips Alternate Liquids/Solids Oral Check Supervision While Eating and Drinking for Safe Swallow: Total Assistance Foods to Avoid: Moisten solids with sauces and gravies for ease of mastication. Swallowing Recommended Treatments: Recommendation for Speech: Inpatient Speech Therapy Comment: DOCKET CLERK will continue to follow during hospitalization. Frequency/Duration: Date Range for Service Req: Timeline to reassess: Medical Office Secretary Clinican/Clinical Fellow: No Supervisory Statement: I have reviewed and agree with the student/clinical fellow's documentation: N/A Speech Language Pathologist: Ana Jackson M.A. CCC-DOCKET CLERK
--- NOTE | 2021-03-28 13:04 | PM.PSYCN ---
History of Present Illness Date of Service: t Chief Complaint: AMS Reason for Consult: Assesment of capacity to sign AMA Requesting physician: Fercho Vazquez Discussed with referring provider: Yes Sources of Information: patient interviewed and chart reviewed HPI Narrative: The patient is a 65 year old female, , living with her and family, with several comorbilities such as HTN, DM, Obesity, IBS, metabolic syndrome and depression. She was brought to the ED by EMS since she had altered mental status and she was found to have a glucose of 60 and later, CT-Scan showed an recent stroke in the bilateral occipital region. As per her 's report, her behavior has changed in the last 3 weeks with confusion and irritability. The consult was placed since the patient wants to sign AMA. During the interview, the patient was yelling for her , she denied been in the hospital, she was not aware of the day or the place where she was and she was unable to recall the events of the last hours, she was persistant that she wanted to go home, unable to understand why she is here and unable to process the risk of her health. Her memory was poor, her ability to do more complex cognitive tasks were impaired. Past Psychiatric History: None known, as per chart, she was diagnosed of depression but never admitted into the hospital. Review of Systems Review of Systems Yes Unobtainable due to mental status PMFSH Medical History Anxiety Asthma Brain tumor CHF (congestive heart failure) Diabetes Diabetic acetonemia Dyspnea on exertion Essential hypertension HTN (hypertension) Myalgia and myositis Neuropathy Nocturnal hypoxemia Obesity (BMI 30-39.9) Orthopnea Restrictive lung disease Type 2 diabetes mellitus with unspecified complications UTI (urinary tract infection) Surgical History History of appendectomy History of arthroscopy of both knees History of hysterectomy History of pancreatic surgery Family History: M: completed suicide/ recurrent hospitalizations Social History: lives with H of > 30 years. He is 82 and struggling to cope. 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 Has D from first marriage. Has 9 grandchildren Trauma History: None explored Diagnostics Vital Signs (24Hr): Vital Signs - 24 hr 03/27/21 20:38 03/27/21 23:23 03/28/21 00:18 Temperature 98.8 F Pulse Rate 88 96 87 Respiratory Rate 16 16 16 Blood Pressure 150/54 H Pulse Oximetry 98 03/28/21 02:10 03/28/21 02:26 03/28/21 07:03 Temperature 98.3 F 97.8 F Pulse Rate 83 90 102 H Respiratory Rate 16 16 28 H Blood Pressure 144/65 H 167/78 H 146/63 H Pulse Oximetry 97 97 95 03/28/21 09:34 03/28/21 10:24 Temperature 97.3 F Pulse Rate 102 H 102 H Respiratory Rate 18 Blood Pressure 146/63 H 148/66 H Pulse Oximetry 95 96 Body Mass Index 28.3 Labs Results: 03/28/21 05:53 03/28/21 05:53 Labs: Laboratory Results - last 48 hr 03/27/21 03/27/21 03/27/21 20:37 21:49 21:49 WBC 11.2 H RBC 4.17 L Hgb 13.3 Hct 40.0 MCV 95.9 MCH 31.9 MCHC 33.3 RDW 14.3 Plt Count 237 D MPV 9.1 L Immature Gran % (Auto) 0.4 Neut % (Auto) 66.1 Lymph % (Auto) 23.3 Chase % (Auto) 8.3 Eos % (Auto) 1.5 Baso % (Auto) 0.4 Lymph # (Auto) 2.6 Chase # (Auto) 0.9 Eos # (Auto) 0.2 Baso # (Auto) 0.0 Abs Immat Gran (auto) 0.05 H Absolute Neuts (auto) 7.4 Absolute Nucleated RBC 0.000 Nucleated RBC % (auto) 0.0 PT INR VBG pH VBG pCO2 VBG pO2 VBG HCO3 VBG O2 Saturation VBG Base Excess Sodium 143 Potassium 4.4 Chloride 106 Carbon Dioxide 24 Anion Gap 17 BUN 26 H D Creatinine 1.14 Estim Creat Clear Calc 44.5 Estimated GFR 48 POC Glucose 198 H Random Glucose 198 H D Lactic Acid Lactic Acid Fup @ 2Hr Calcium 10.3 H Magnesium Total Bilirubin 0.3 Direct Bilirubin 0.2 AST 16 ALT 19 Alkaline Phosphatase 65 D Ammonia Troponin I High Sens Total Protein 6.8 Albumin 4.1 Urine Color Urine Appearance Urine pH Ur Specific [place] Urine Protein Urine Glucose (UA) Urine Ketones Urine Blood Urine Nitrite Ur Leukocyte Esterase Urine RBC Urine WBC Ur Squamous Epith Cells Urine Bacteria Urine Yeast Urine Opiates Screen Ur Barbiturates Screen Ur Phencyclidine Scrn Ur Amphetamines Screen U Benzodiazepines Scrn Urine Cocaine Screen U Marijuana (THC) Screen Ethyl Alcohol COVID-19 (FLOR) COVID-19 [employer] 03/27/21 03/27/21 03/27/21 21:49 21:49 21:49 WBC RBC Hgb Hct MCV MCH MCHC RDW Plt Count MPV Immature Gran % (Auto) Neut % (Auto) Lymph % (Auto) Chase % (Auto) Eos % (Auto) Baso % (Auto) Lymph # (Auto) [place] # (Auto) Eos # (Auto) Baso # (Auto) Abs Immat Gran (auto) Absolute Neuts (auto) Absolute Nucleated RBC Nucleated RBC % (auto) PT 11.7 INR 1.0 VBG pH VBG pCO2 VBG pO2 VBG HCO3 VBG O2 Saturation VBG Base Excess Sodium Potassium Chloride Carbon Dioxide Anion Gap BUN Creatinine Estim Creat Clear Calc Estimated GFR POC Glucose Random Glucose Lactic Acid 3.3 H* Lactic Acid Fup @ 2Hr Calcium Magnesium Total Bilirubin Direct Bilirubin AST ALT Alkaline Phosphatase Ammonia 40 Troponin I High Sens Total Protein Albumin Urine Color Urine Appearance Urine pH Ur Specific [place] Urine Protein Urine Glucose (UA) Urine Ketones Urine Blood Urine Nitrite Ur Leukocyte Esterase Urine RBC Urine WBC Ur Squamous Epith Cells Urine Bacteria Urine Yeast Urine Opiates Screen Ur Barbiturates Screen Ur Phencyclidine Scrn Ur Amphetamines Screen U Benzodiazepines Scrn Urine Cocaine Screen U Marijuana (THC) Screen Ethyl Alcohol COVID-19 (FLOR) COVID-19 [employer] 03/27/21 03/27/21 03/27/21 21:49 21:49 21:51 WBC RBC Hgb Hct MCV MCH MCHC RDW Plt Count MPV Immature Gran % (Auto) Neut % (Auto) Lymph % (Auto) Chase % (Auto) Eos % (Auto) Baso % (Auto) Lymph # (Auto) [place] # (Auto) Eos # (Auto) Baso # (Auto) Abs Immat Gran (auto) Absolute Neuts (auto) Absolute Nucleated RBC Nucleated RBC % (auto) PT INR VBG pH 7.26 L VBG pCO2 55 VBG pO2 47 VBG HCO3 25 VBG O2 Saturation 70.0 VBG Base Excess -2.6 Sodium Potassium Chloride Carbon Dioxide Anion Gap BUN Creatinine Estim Creat Clear Calc Estimated GFR POC Glucose Random Glucose Lactic Acid Lactic Acid Fup @ 2Hr Calcium Magnesium Total Bilirubin Direct Bilirubin AST ALT Alkaline Phosphatase Ammonia Troponin I High Sens 6.6 Total Protein Albumin Urine Color Urine Appearance Urine pH Ur Specific [place] Urine Protein Urine Glucose (UA) Urine Ketones Urine Blood Urine Nitrite Ur Leukocyte Esterase Urine RBC Urine WBC Ur Squamous Epith Cells Urine Bacteria Urine Yeast Urine Opiates Screen Ur Barbiturates Screen Ur Phencyclidine Scrn Ur Amphetamines Screen U Benzodiazepines Scrn Urine Cocaine Screen U Marijuana (THC) Screen Ethyl Alcohol < 10 COVID-19 (FLOR) COVID-[place] 03/27/21 03/27/21 03/28/21 23:27 23:27 00:40 WBC RBC Hgb Hct MCV MCH MCHC RDW Plt Count MPV Immature Gran % (Auto) Neut % (Auto) Lymph % (Auto) [place] % (Auto) Eos % (Auto) Baso % (Auto) Lymph # (Auto) [place] # (Auto) Eos # (Auto) Baso # (Auto) Abs Immat Gran (auto) Absolute Neuts (auto) Absolute Nucleated RBC Nucleated RBC % (auto) PT INR VBG pH VBG pCO2 VBG pO2 VBG HCO3 VBG O2 Saturation VBG Base Excess Sodium Potassium Chloride Carbon Dioxide Anion Gap BUN Creatinine Estim Creat Clear Calc Estimated GFR POC Glucose Random Glucose Lactic Acid Lactic Acid Fup @ 2Hr Calcium Magnesium Total Bilirubin Direct Bilirubin AST ALT Alkaline Phosphatase Ammonia Troponin I High Sens Total Protein Albumin Urine Color YELLOW Urine Appearance HAZY Urine pH 5.5 Ur Specific [place] >= 1.030 H Urine Protein 1+ H Urine Glucose (UA) NEG Urine Ketones 5 Urine Blood NEG Urine Nitrite NEG Ur Leukocyte Esterase 1+ H Urine RBC 1-4 Urine WBC 15-29 H Ur Squamous Epith Cells 2+ Urine Bacteria 2+ Urine Yeast 2+ Urine Opiates Screen Not Detected Ur Barbiturates Screen Not Detected Ur Phencyclidine Scrn Not Detected Ur Amphetamines Screen Not Detected U Benzodiazepines Scrn Not Detected Urine Cocaine Screen Not Detected U Marijuana (THC) Screen Not Detected Ethyl Alcohol COVID-19 (FLOR) Negative COVIDAGELON ? See Note 03/28/21 03/28/21 03/28/21 01:50 03:03 05:53 WBC 7.8 RBC 3.92 L Hgb 12.5 Hct 37.5 MCV 95.7 MCH 31.9 MCHC 33.3 RDW 14.3 Plt Count 220 MPV 9.4 Immature Gran % (Auto) 0.6 H Neut % (Auto) 60.5 Lymph % (Auto) 27.9 Chase % (Auto) 8.6 Eos % (Auto) 2.1 Baso % (Auto) 0.3 Lymph # (Auto) 2.2 Chase # (Auto) 0.7 Eos # (Auto) 0.2 Baso # (Auto) 0.0 Abs Immat Gran (auto) 0.05 H Absolute Neuts (auto) 4.7 Absolute Nucleated RBC 0.000 Nucleated RBC % (auto) 0.0 PT INR VBG pH VBG pCO2 VBG pO2 VBG HCO3 VBG O2 Saturation VBG Base Excess Sodium Potassium Chloride Carbon Dioxide Anion Gap BUN Creatinine Estim Creat Clear Calc Estimated GFR POC Glucose 204 H Random Glucose Lactic Acid Lactic Acid Fup @ 2Hr 1.4 Calcium Magnesium Total Bilirubin Direct Bilirubin AST ALT Alkaline Phosphatase Ammonia Troponin I High Sens Total Protein Albumin Urine Color Urine Appearance Urine pH Ur Specific [place] Urine Protein Urine Glucose (UA) Urine Ketones Urine Blood Urine Nitrite Ur Leukocyte Esterase Urine RBC Urine WBC Ur Squamous Epith Cells Urine Bacteria Urine Yeast Urine Opiates Screen Ur Barbiturates Screen Ur Phencyclidine Scrn Ur Amphetamines Screen U Benzodiazepines Scrn Urine Cocaine Screen U Marijuana (THC) Screen Ethyl Alcohol COVID-19 (FLOR) COVID-19 Clin Com 03/28/21 03/28/21 03/28/21 05:53 05:53 07:33 WBC RBC Hgb Hct MCV MCH MCHC RDW Plt Count MPV Immature Gran % (Auto) Neut % (Auto) Lymph % (Auto) [place] % (Auto) Eos % (Auto) Baso % (Auto) Lymph # (Auto) [place] # (Auto) Eos # (Auto) Baso # (Auto) Abs Immat Gran (auto) Absolute Neuts (auto) Absolute Nucleated RBC Nucleated RBC % (auto) PT INR VBG pH VBG pCO2 VBG pO2 VBG HCO3 VBG O2 Saturation VBG Base Excess Sodium 142 Potassium 3.9 Chloride 109 H Carbon Dioxide 20 L Anion Gap 17 BUN 25 H Creatinine 0.97 Estim Creat Clear Calc 52.4 Estimated GFR 58 POC Glucose 237 H Random Glucose 245 H Lactic Acid Lactic Acid Fup @ 2Hr Calcium 9.4 D Magnesium 1.7 Total Bilirubin Direct Bilirubin AST ALT Alkaline Phosphatase Ammonia Troponin I High Sens Total Protein Albumin Urine Color Urine Appearance Urine pH Ur Specific [place] Urine Protein Urine Glucose (UA) Urine Ketones Urine Blood Urine Nitrite Ur Leukocyte Esterase Urine RBC Urine WBC Ur Squamous Epith Cells Urine Bacteria Urine Yeast Urine Opiates Screen Ur Barbiturates Screen Ur Phencyclidine Scrn Ur Amphetamines Screen U Benzodiazepines Scrn Urine Cocaine Screen U Marijuana (THC) Screen Ethyl Alcohol COVID-19 (FLOR) COVID-19 Clin Com Imaging Radiology Impressions: ITS Impressions Head CT 03/28/21 00:20 IMPRESSION: Regions of infarct in the bilateral occipital lobes appear new from 06/23/2020. While at least some of this has a subacute to chronic appearance, an element of acute infarct would be difficult to exclude in the proper clinical setting. This would be better assessed with MRI. This critical result was discussed with Dr. Barrett on 03/28/2021 1:31 AM, and it was ascertained that the content and urgency of the report was understood at the time of direct communication. Mental Status Exam Mental Status Exam Patient Appearance: Well Grooomed and Inappropriate Patient Orientation: Person (disoriented on time, place or situation) Level of Consciousness: Awake, Disoriented and Restless Patient Behavior: Restless and Anxious Mood Description: Anxious, Nervous and Apprehensive Affect Description: Constricted Patient Cognition Impaired: Yes Ability to Follow Directions: Poor Speech Pattern: Perseverating and Loud Memory Description: Immediate Impaired and Recent Impaired Hallucinations: None Delusions: Paranoid Ideation Thought Process: Disoriented and Illogical Thought Content: positive for Tangential Judgement: Poor Medications Medications Current Medications Generic Name Dose Route Start Last Admin Trade Name Allison PRN Reason Stop Dose Admin Acetaminophen 650 mg 03/28/21 03:25 Acetaminophen 325 Mg Tablet PO Q6H PRN Pain, Mild (Pain Scale 1-3) Aspirin 81 mg 03/28/21 09:00 03/28/21 08:38 Aspirin Enteric Coated 81 Mg Tablet. PO 81 mg DAILY [facility] Administration Levofloxacin 500 mg in 100 mls @ 100 mls/hr 03/28/21 22:00 Levaquin IV Q24H [facility] Insulin Human Lispro 0 unit 03/28/21 07:30 03/28/21 12:15 Insulin Lispro 100 Unit/Ml 3 Ml Vial SUBCUT Not Given QIDACHS [facility] Protocol Melatonin 6 mg 03/28/21 03:25 Melatonin 3 Mg Tablet PO BEDTIME PRN Insomnia Pharmacy Consult 1 each 03/28/21 22:00 Consult Rx Perform Med Rec MISCELLANE ONCE PRN Consult order Senna 17.2 mg 03/28/21 03:25 Sennosides 8.6 Mg Tablet PO BEDTIME PRN Constipation Sodium Chloride 3 ml 03/28/21 08:00 03/28/21 08:38 0.9 % Sodium Chloride Flush 3 Ml Syringe IVFLUSH 3 ml QSHIFT [place] Administration Allergies Allergies Allergy/AdvReac Type Severity Reaction Status Date / Time Sulfa (Sulfonamide Allergy Severe DIFFICULTY Verified 02/28/21 15:39 Antibiotics) BREATHING [SULFA (SULFONAMIDE ANTIBIOTICS)] cephalexin [From KEFLEX] Allergy Intermediate RASH,HIVES Verified 02/28/21 15:39 amoxicillin [AMOXICILLIN] Allergy Unknown DENIES Verified 02/28/21 15:39 THIS ALLERGY 03/28/2018 penicillin V Allergy Unknown Unknown Verified 02/28/21 15:39 sumatriptan [From IMITREX] AdvReac Severe HEART Verified 02/28/21 15:39 PALPITATIONS topiramate [From TOPAMAX] AdvReac Severe AGITATION Verified 02/28/21 15:39 Assessment & Plan Assessment & Plan (1) Encephalopathy: Status: Acute Code(s): G93.40 - Encephalopathy, unspecified (2) Acute delirium: Status: Acute Code(s): R41.0 - Disorientation, unspecified Recommendations: Middle age female with several comorbilities admitted for AMS, most likely due to UTI, recent occipital bilateral stroke and other comorbilities. The consult was done to assess capacity to sign AMA. At this moment, the patient is confused, with limited cognition, unable to take informed decisions regarding signing AMA. If agitated, the patient could benefit of Ativan PRN. Reassessment as demand. Greater than 50% of the session was spent on counseling and/or coordination of care
[2021-03-28] MEDS: LORazepam 2 MG/ML VIAL 1 MG IVPUSH (13:06)
--- NOTE | 2021-03-28 14:55 | PM.NEUROCN ---
History of Present Illness Data of Consult Service Date: 03/28/21 Primary Care Provider: Chris Rodriguez MD 65 years old woman with remote history of pseudotumor cerebri probably related to obesity status post lumbar peritoneal shunt, diabetic neuropathy restless leg syndrome migraine an encephalopathy related to urinary tract infection. She came to hospital with confusion. She denied taking any drugs or any new medicine. There was no cold or flu-like illness or fever chills. Review of Systems Review of Systems: No recent seizure cold or flu-like illness trauma or exposure to new medicine. [facility] Past Medical History Medical History Anxiety Asthma Brain tumor CHF (congestive heart failure) Diabetes Diabetic acetonemia Dyspnea on exertion Essential hypertension HTN (hypertension) Myalgia and myositis Neuropathy Nocturnal hypoxemia Obesity (BMI 30-39.9) Orthopnea Restrictive lung disease Type 2 diabetes mellitus with unspecified complications UTI (urinary tract infection) Family History Family History Father No problems noted. Mother Angina at rest Sister Lung cancer Colon cancer COPD (chronic obstructive pulmonary disease) Surgical History Surgical History History of appendectomy History of arthroscopy of both knees History of hysterectomy History of pancreatic surgery Social History Social History Household Members: Spouse Housing: Unknown / Unable to assess Do you presently have visiting nurse or other home services: No Unable to assess alcohol history related to: Unknown Alcohol intake: unknown Patient Tobacco Use Status: Never used Tobacco e-Cigarette/Vaping Use: Never Used Second Hand Smoke Exposure: No Use of substances other than those prescribed or required for medical reasons: Unknown Advance Directives: No Advance Directives Information Provided: Yes Do you have thoughts of harming others: None Do you have a plan to hurt others: No Plan Recently lost weight without trying: Unsure Patient : No : No Poor oral hygiene: No service: No Current occupational status: unemployed and disabled Current occupation: right handed Sexual orientation: Straight/Heterosexual Meds Allergies Allergy/AdvReac Type Severity Reaction Status Date / Time Sulfa (Sulfonamide Allergy Severe DIFFICULTY Verified 02/28/21 15:39 Antibiotics) BREATHING [SULFA (SULFONAMIDE ANTIBIOTICS)] cephalexin [From KEFLEX] Allergy Intermediate RASH,HIVES Verified 02/28/21 15:39 amoxicillin [AMOXICILLIN] Allergy Unknown DENIES Verified 02/28/21 15:39 THIS ALLERGY 03/28/2018 penicillin V Allergy Unknown Unknown Verified 02/28/21 15:39 sumatriptan [From IMITREX] AdvReac Severe HEART Verified 02/28/21 15:39 PALPITATIONS topiramate [From TOPAMAX] AdvReac Severe AGITATION Verified 02/28/21 15:39 Active Medications: Current Medications Generic Name Dose Route Start Last Admin Trade Name Freq PRN Reason Stop Dose Admin Acetaminophen 650 mg 03/28/21 03:25 Acetaminophen 325 Mg Tablet PO Q6H PRN Pain, Mild (Pain Scale 1-3) Aspirin 81 mg 03/28/21 09:00 03/28/21 08:38 Aspirin Enteric Coated 81 Mg Tablet.Dr PO 81 mg DAILY [facility] Administration Levofloxacin 500 mg in 100 mls @ 100 mls/hr 03/28/21 22:00 Levaquin IV Q24H [facility] Insulin Human Lispro 0 unit 03/28/21 07:30 03/28/21 12:15 Insulin Lispro 100 Unit/Ml 3 Ml Vial SUBCUT Not Given QIDACHS [facility] Protocol Melatonin 6 mg 03/28/21 03:25 Melatonin 3 Mg Tablet PO BEDTIME PRN Insomnia Pharmacy Consult 1 each 03/28/21 22:00 Consult Rx Perform Med Rec MISCELLANE ONCE PRN Consult order Senna 17.2 mg 03/28/21 03:25 Sennosides 8.6 Mg Tablet PO BEDTIME PRN Constipation Sodium Chloride 3 ml 03/28/21 08:00 03/28/21 08:38 0.9 % Sodium Chloride Flush 3 Ml Syringe IVFLUSH 3 ml QSHIFT [facility] Administration Home Medications Medication Instructions Recorded Confirmed Last Taken Type acetaminophen 650 mg 650 mg PO Q8H PRN 12/08/20 03/28/21 Unknown History tablet,extended release meclizine 25 mg tablet 25 mg PO BID PRN tab 12/08/20 03/28/21 Unknown History dicyclomine 1 tab PO TID 12/16/20 03/28/21 Unknown History quetiapine 1 tab PO BEDTIME 04/15/21 07/26/21 Unknown History atorvastatin 20 mg PO BEDTIME 03/28/21 03/28/21 Unknown History donepezil 5 mg PO BEDTIME 03/28/21 03/28/21 Unknown History insulin lispro [Humalog KwikPen 2 - 14 unit SUBCUT TIDAC 03/28/21 03/28/21 Unknown History Insulin] multivitamin 1 tab PO DAILY 03/28/21 03/28/21 Unknown History valsartan 80 mg PO DAILY 03/28/21 03/28/21 Unknown History Physical Exam Vital Signs: Vital Signs: Last Vital Signs Temp 97.3 F 03/28/21 10:24 Pulse 102 H 03/28/21 10:24 Resp 18 03/28/21 10:24 BP 148/66 H 03/28/21 10:24 Pulse Ox 96 03/28/21 10:24 Body Mass Index 28.3 She was alert and awake with normal spontaneity of speech fluency comprehension and affect. She recognized me though her visual tavarez worst severely restricted. She could not see anything on right side and barely could see fingers on left. Face was symmetrical. She was moving arms or legs. Plantars were bilaterally extensor. Results Labs CBC & Chem 7: 03/28/21 05:53 03/28/21 05:53 Labs: Short CBC 03/27/21 03/28/21 Range/Units 21:49 05:53 WBC 11.2 H 7.8 (4.8-10.8) X10*3/uL Hgb 13.3 12.5 (12.0-16.0) g/dl Hct 40.0 37.5 (37-47) % Plt Count 237 D 220 (160-400) X10*3/uL BMP 03/27/21 03/28/21 21:49 05:53 Sodium 143 142 Potassium 4.4 3.9 Chloride 106 109 H Carbon Dioxide 24 20 L BUN 26 H D 25 H Creatinine 1.14 0.97 Calcium 10.3 H 9.4 D Liver Function 03/27/21 Range/Units 21:49 Total Bilirubin 0.3 (0.0-1.0) mg/dL Direct Bilirubin 0.2 (0.0-0.5) mg/dL AST 16 (5-31) U/L ALT 19 (0-31) U/L Alkaline Phosphatase 65 D (39-117) U/L Albumin 4.1 (3.5-5.0) g/dL Urine 03/27/21 Range/Units 23:27 Urine Color YELLOW Urine Appearance HAZY Urine pH 5.5 (5.0-8.0) Ur Specific [place] >= 1.030 H (1.005-1.025) Urine Protein 1+ H (NEG-TRACE) MG/DL Urine Glucose (UA) NEG (NEG) MG/DL Her noncontrast head CT revealed possible bilateral occipital hypodensities suggestive of ischemia. Assessment and Plan (1) Encephalopathy: Status: Acute 65 years old woman with complicated underlying history presented with confusion. She has mild signs of UTI but also abnormal head CT suggestive of bioccipital infarcts. Etiology was unclear. My recommendation is to obtain noncontrast MRI and MRA of brain to look at her brain and vasculature. Differential diagnosis would include was bland infarct worse is reversible ischemia. Procedures Date of Service Date of Service: 03/28/21
[2021-03-28 16:33] LABS: Glucose, Whole Blood 274 mg/dL (60-115)
[2021-03-28] MEDS: levoFLOXacin/D5W 500 MG/100 ML PIGGYBACK 100 MG IV (20:40)
[2021-03-28 20:50] LABS: Glucose, Whole Blood 210 mg/dL (60-115)
[2021-03-29] VITALS (7 sets, daily range): BP systolic 139–184; BP diastolic 66–88; PULSE 88–114; RESP 16–18; TEMP 36.1–36.6; O2SAT 93–98; BMI 39.1
[2021-03-29] MEDS: diphenhydrAMINE HCL 50 MG/ML VIAL 25 MG IVPUSH (00:04)
[2021-03-29 06:35] LABS: Cholesterol 182 mg/dL; HDL Cholesterol 41 mg/dL; LDL Cholesterol Calculated 112 mg/dl; Triglycerides 149 mg/dL
--- NOTE | 2021-03-29 06:41 | MHC.PIE ---
late entry; 03/28/21 1900 p; pt confused, getting out of bed numerous times very unsteady on feet, trying to go to the bathroom. note; pt was taken to the bathroom numerous times with pt refusing to use the bathroom and trying to use the shower or the floor. pt also combative with care refusing to get cleaned up or go back in bed. i; pt room changed to room 369 for safety - unable to place sitter at this time, pt room moved closer to nursign station/other confused pt thus easier for runner. e; pt remained free of falls at this time, will cont to [facility]
[2021-03-29 07:21] LABS: Glucose, Whole Blood 268 mg/dL (60-115)
[2021-03-29] MEDS: Aspirin Enteric Coated 81 MG TABLET.DR PO ×4 (07:37→12:31)
[2021-03-29] MEDS: Insulin Lispro 100 UNIT/ML 3 ML VIAL SUBCUT ×4 (07:38→20:48)
[2021-03-29] MEDS: 0.9 % Sodium Chloride Flush 3 ML SYRINGE IVFLUSH ×2 (07:39→17:28)
--- NOTE | 2021-03-29 09:53 | HO.PM.IMPN ---
Subjective Subjective Date of Service: 03/29/21 Interval History: Seen in f/u for confusion of unclear etiology. She is still confused but much better today, eating breakfast, at bedside and says confusion has been ongoing for 3 weeks Review of Systems Gen: no fever Resp: no sob, no cough CV: no chest, no BOBO, no leg edema GI: No n/v, no abd pain Neuro: + confusion Physical Exam Vital Signs: Vital Signs: Last Vital Signs Temp 97.8 F 03/29/21 06:55 Pulse 106 H 03/29/21 06:55 Resp 16 03/29/21 06:55 BP 158/83 H 03/29/21 06:55 Pulse Ox 97 03/29/21 06:55 Body Mass Index 28.3 Const: Other: Constitutional Awake and Alert, No apparent distress Neck Supple, No lymphadenopathy Cardiovascular RRR, No M/R/G, S1 S2, No S3 S4, No pedal edema Respiratory Lungs clear, No respiratory distress Gastrointestinal Non tender, Non-distended Skin No rash Neurological Alert & oriented x2, aware of being at [place] but not specifically hospital Psychological Appropriate affect Objective Data Current Medications Generic Name Dose Route Start Last Admin Trade Name Freq PRN Reason Stop Dose Admin Acetaminophen 650 mg 03/28/21 03:25 Acetaminophen 325 Mg Tablet PO Q6H PRN Pain, Mild (Pain Scale 1-3) Aspirin 81 mg 03/28/21 09:00 03/29/21 07:37 Aspirin Enteric Coated 81 Mg Tablet. PO 81 mg DAILY FRANCHESKA Administration Levofloxacin 500 mg in 100 mls @ 100 mls/hr 03/28/21 22:00 03/28/21 21:48 Levaquin IV Infused Q24H FRANCHESKA Infusion Insulin Human Lispro 0 unit 03/28/21 07:30 03/29/21 07:38 Insulin Lispro 100 Unit/Ml 3 Ml Vial SUBCUT 6 unit QIDACHS FRANCHESKA Administration Protocol Melatonin 6 mg 03/28/21 03:25 Melatonin 3 Mg Tablet PO BEDTIME PRN Insomnia Ondansetron HCl 4 mg 03/28/21 15:08 Ondansetron Odt 4 Mg Tab.Rapdis TRANSLINGU Q8H PRN Nausea and Vomiting Pharmacy Consult 1 each 03/28/21 22:00 Consult Rx Perform Med Rec MISCELLANE ONCE PRN Consult order Senna 17.2 mg 03/28/21 03:25 Sennosides 8.6 Mg Tablet PO BEDTIME PRN Constipation Sodium Chloride 3 ml 03/28/21 08:00 03/29/21 07:39 0.9 % Sodium Chloride Flush 3 Ml Syringe IVFLUSH 3 ml QSHIFT FRANCHESKA Administration Labs CBC & Chem 7: 03/28/21 05:53 03/28/21 05:53 Labs: Laboratory Results - last 24 hr 03/28/21 03/28/21 03/29/21 16:29 20:45 05:24 POC Glucose 274 H 210 H Triglycerides 149 Cholesterol 182 LDL Cholesterol, Calc 112 HDL Cholesterol 41 03/29/21 07:13 POC Glucose 268 H Triglycerides Cholesterol LDL Cholesterol, Calc HDL Cholesterol Microbiology Microbiology Results: Microbiology 03/27/21 22:23 Blood Culture - Preliminary Blood - Venous No growth after 24 hours. 03/27/21 22:23 Blood Culture - Preliminary Blood - Venous No growth after 24 hours. Assessment and Plan (1) Encephalopathy: Status: Acute Assessment and Plan: 65-year-old female with a past medical history of hypertension, hyperlipidemia, diabetes, history of encephalopathy secondary to UTI,? 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 Noted to have mild UTI. Altered mental status: Likely toxic metabolic encephalopathy in the setting of UTI, which is being treated with antibiotics. 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 Has been following with the urologist and mention is been stable. ER team tried LP but unsuccessful attempt. Neuro recommend MRI and MRA. She is less confused. Psych saw and doesn't think there is capacity for AMA and to give ativan PRN for agitation CVA: Patient CT head showed subacute to chronic occipital infarcts. Fall precautions. PT/OT. Echocardiogram with bubble study. Speech and swallow eval. MRI and MRA recommended by Neuro UTI: Continue Levaquin, culture negativ Lactic acidosis: Gentle IV fluids. Diabetes: Insulin sliding scale. Diet: Dysphagia screen/speech and swallow eval. DVT prophylaxis: SCD boots Code status: Full code Quality Stroke Does the patient have a stroke diagnosis?: No VTE Prior VTE?: No VTE Risk Level:: Medical - moderate - high VTE Device Contraindication: N/A - Device Ordered VTE Drug Contraindication: Treatment Not Indicated
[2021-03-29 12:15] LABS: Glucose, Whole Blood 307 mg/dL (60-115)
[2021-03-29] MEDS: Multivitamin TABLET 1 TAB PO (12:24)
[2021-03-29] MEDS: Valsartan 80 MG TABLET PO (12:24)
[2021-03-29] MEDS: Omeprazole 20 MG CAPSULE.DR PO ×2 (12:25→17:28)
[2021-03-29] MEDS: Metoprolol Succinate ER 25 MG TAB.ER.24H PO (12:25)
--- NOTE | 2021-03-29 13:50 | PC.NURSE ---
Skin assessment completed today. patient has fungal rash in bilateral groin and under breast. Interdry will be applied in groin and under breast to wick away moisture and heal redness. No other skin issues noted at this time.
--- NOTE | 2021-03-29 14:33 | MHC.CM.PN ---
IMM 03/29/2021, EMR REVIEWED, PT ADMITTED W/AMS, UTI, CM MET WITH PT WHO IS ALERT AND ORIENTED X2, PT ABLE TO ANSWER MOST QUESTIONS HOWEVER INCONSISTENT AT TIMES, PT REPORTS SHE LIVES W/HER , HAS WHEELED WALKER SHE'S NOT COMPLAINT WITH, PT REPORTS DAILY VNA W/[facility] , CM TO VERIFY, PT VERIFIES PCP BEAUZILE AND HCP HER . D/C PLAN: HOME W/RESUMP OF [facility] (TO BE VERIFIED) AND SPOUSE TO TRANSPORT.
[2021-03-29 15:28] LABS: CDiff Gene PCR NEGATIVE (Negative)
[2021-03-29 17:13] LABS: Glucose, Whole Blood 287 mg/dL (60-115)
[2021-03-29] MEDS: Dicyclomine HCl 10 MG CAPSULE 20 MG PO ×2 (17:28→20:47)
[2021-03-29] MEDS: Atorvastatin Calcium 20 MG TABLET PO (20:47)
[2021-03-29] MEDS: Acetaminophen 325 MG TABLET 650 MG PO (20:48)
[2021-03-29] MEDS: Donepezil HCl 5 MG TABLET PO (20:48)
[2021-03-29] MEDS: QUEtiapine Fumarate 50 MG TABLET PO (20:48)
[2021-03-29] MEDS: Melatonin 3 MG TABLET 6 MG PO (20:48)
[2021-03-29] MEDS: Insulin Glargine,Hum.rec.anlog 100 UNIT/ML 10 ML VIAL 40 UNIT SUBCUT (20:53)
[2021-03-29] MEDS: levoFLOXacin/D5W 500 MG/100 ML PIGGYBACK 100 MG IV (21:15)
[2021-03-29 21:16] LABS: Glucose, Whole Blood 202 mg/dL (60-115)
[2021-03-30] MEDS: 0.9 % Sodium Chloride Flush 3 ML SYRINGE IVFLUSH ×4 (01:56→21:47)
--- NOTE | 2021-03-30 07:30 | CA_ITS ---
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 The visually estimated ejection fraction is between 55-60%. - The left atrium is moderately dilated. - There is mild calcification of the aortic valve. - There is mild mitral annular calcification. Findings Left Ventricle Normal left ventricular cavity size. There is mildly increased left ventricular wall thickness. The left ventricular systolic function is normal. The visually estimated ejection fraction is between 55-60%. There is no evidence of regional wall motion abnormalities. E/E prime ratio is between 8 and 15 consistent with indeterminate filling pressures. Evidence suggests grade I (mild) diastolic dysfunction. Right Ventricle Normal right ventricular cavity size and systolic function. Atria The left atrium is moderately dilated. The right atrium is normal in size. Aortic Valve There is a normal trileaflet aortic valve. There is mild calcification of the aortic valve. There is no aortic valve stenosis. There is no aortic valve regurgitation. Mitral Valve There is mild mitral annular calcification. There is trace mitral valve regurgitation. There is no mitral valve stenosis. Pulmonic Valve The pulmonic valve was not well visualized. Tricuspid Valve Normal tricuspid valve structure. There is trace tricuspid valve regurgitation. The pulmonary artery systolic pressure is normal. Great Vessels The aortic annulus, sinuses of valsalva, and asc aorta are normal in size. Venous The inferior vena cava is normal in size and collapses greater than 50% with inspiration. Pericardium/Pleural There is no evidence of pericardial effusion. Prior Study Comparison No significant change compared to prior study dated: 01/19/2021. Measurements 2D Linear Measurements IVSd: 1.20 0.6-0.9/0.6-1.0 cm LVIDd: 4.09 3.9-5.3/4.2-5.9 cm LVIDd Index: 2.45 2.4-3.2/2.2-3.1 cm/m2 LVIDs: 2.84 2.0-3.6 cm LVPWd: 1.23 0.7-1.1 cm Ao Root: 2.90 2.1-3.5 cm LA Diam: 3.40 2.7-3.8/3.0-4.0 cm LAIDs Index: 2.04 1.5-2.3 cm/m2 LV Mass: 217.10 67-162/88-224 g LV Mass Index: 130.00 43-95/49-115 g/m2 LVOT Diam: 1.90 3.0+(-)1.3 cm 2D Systolic Function EF 4C: 57.80 >55% EF 2C: 58.00 >55% EF BiP: 58.40 >55% Mitral Valve MV Pk E: 0.77 MV PK A: 1.02 MV Decel Time: 204.00 E/A: 0.80 E'Lateral: 8.16 E'Medial: 7.40 E/E' Med: 10.40 E/E' Lat: 9.40 PHT: 60.00 MVA PHT: 3.67 Decel [place]: 3.79 Aortic Valve AoV Pk Patrick: 2.16 AoV Mn Patrick: 1.35 AoV VTI: 0.36 AoV Pk Grad: 19.00 Aov Mn Grad: 9.00 ARMANDO Cont.VTI: 1.50 LVOT LVOT Pk Patrick: 1.04 LVOT Mn Patrick: 0.67 LVOT VTI: 0.19 LVOT Pk Grad: 4.00 LVOT Mn Grad: 2.00 LVOT Diam: 1.90 LVOT Area: 2.84 Diastolic Function MV Pk E: 0.77 MV Pk A: 1.02 E/A: 0.80 E'Medial: 7.40 E/E' Med: 10.40 E' Laterial: 8.16 E/E' Lat: 9.40 Right Ventricle TAPSE (mm): 1.82 TVS' Patrick: 9.60 Tricuspid Valve TR Pk Patrick: 2.54 TR Pk Grad: 26.00 RA Press: 3.00 RVSP: 29.00 Great Vessels Aorta Ao Root-2D: 2.90 2.0-3.7 cm Updated in Other Vendor System with Status of Final Miguel Bentley MD electronically signed on 03/30/2021 4:49:30 PM with status of Final
[2021-03-30 07:39] LABS: Glucose, Whole Blood 234 mg/dL (60-115)
[2021-03-30 07:41] VITALS: BP 136/63; PULSE 94; RESP 17; TEMP 36.6; O2SAT 95
[2021-03-30] MEDS: Insulin Lispro 100 UNIT/ML 3 ML VIAL SUBCUT ×4 (07:48→21:38)
[2021-03-30] MEDS: Multivitamin TABLET 1 TAB PO (07:50)
[2021-03-30] MEDS: Valsartan 80 MG TABLET PO (07:51)
[2021-03-30] MEDS: Omeprazole 20 MG CAPSULE.DR PO ×2 (07:51→17:50)
[2021-03-30] MEDS: Metoprolol Succinate ER 25 MG TAB.ER.24H PO (07:51)
[2021-03-30] MEDS: Dicyclomine HCl 10 MG CAPSULE 20 MG PO ×3 (07:52→21:38)
--- NOTE | 2021-03-30 10:24 | P.PNIM_ITS ---
Subjective Subjective Date of Service: 03/30/21 Interval History: Seen in f/u for confusion of unclear etiology, she less confused today, no agitation. Could not do MRI yesterday because it was Review of Systems Gen: no fever Resp: no sob, no cough CV: no chest, no BOBO, no leg edema GI: No n/v, no abd pain Neuro: + confusion Physical Exam Vital Signs: Vital Signs: Last Vital Signs Temp 97.9 F 03/30/21 07:41 Pulse 94 03/30/21 07:41 Resp 17 03/30/21 07:41 BP 136/63 03/30/21 07:41 Pulse Ox 95 03/30/21 07:41 Body Mass Index 39.1 Const: Other: Constitutional Awake and Alert, No apparent distress Neck Supple, No lymphadenopathy Cardiovascular RRR, No M/R/G, S1 S2, No S3 S4, No pedal edema Respiratory Lungs clear, No respiratory distress Gastrointestinal Non tender, Non-distended Skin No rash Neurological Alert & oriented x2, aware of being at [place] but not specifically hospital Psychological Appropriate affect Objective Data Current Medications Generic Name Dose Route Start Last Admin Trade Name Freq PRN Reason Stop Dose Admin Acetaminophen 650 mg 03/28/21 03:25 03/29/21 20:48 Acetaminophen 325 Mg Tablet PO 650 mg Q6H PRN Administration Pain, Mild (Pain Scale 1-3) Aspirin 81 mg 03/28/21 09:00 03/29/21 12:26 Aspirin Enteric Coated 81 Mg Tablet. PO 81 mg DAILY FRANCHESKA Administration Aspirin 81 mg 03/29/21 10:15 03/30/21 07:53 Aspirin Enteric Coated 81 Mg Tablet. PO Not Given DAILY FRANCHESKA Atorvastatin Calcium 20 mg 03/29/21 21:00 03/29/21 20:47 Atorvastatin Calcium 20 Mg Tablet PO 20 mg BEDTIME FRANCHESKA Administration Dicyclomine HCl 20 mg 03/29/21 15:00 03/30/21 07:52 Dicyclomine Hcl 10 Mg Capsule PO 20 mg TID FRANCHESKA Administration Donepezil HCl 5 mg 03/29/21 21:00 03/29/21 20:48 Donepezil Hcl 5 Mg Tablet PO 5 mg BEDTIME FRANCHESKA Administration Levofloxacin 500 mg in 100 mls @ 100 mls/hr 03/28/21 22:00 03/29/21 23:25 Levaquin IV Infused Q24H FRANCHESKA Infusion Insulin Glargine 40 unit 03/29/21 21:00 03/29/21 20:53 Insulin Glargine,Hum.Rec.Anlog 100 Unit/Ml 10 Ml Vial SUBCUT 40 unit BEDTIME FRANCHESKA Administration Insulin Human Lispro 0 unit 03/28/21 07:30 03/30/21 07:48 Insulin Lispro 100 Unit/Ml 3 Ml Vial SUBCUT 4 unit QIDACHS FRANCHESKA Administration Protocol Melatonin 6 mg 03/28/21 03:25 03/29/21 20:48 Melatonin 3 Mg Tablet PO 6 mg BEDTIME PRN Administration Insomnia Metoprolol Succinate 25 mg 03/29/21 10:15 03/30/21 07:51 Metoprolol Succinate Er 25 Mg Tab.Er.24h PO 25 mg DAILY FRANCHESKA Administration Protocol Multivitamins/Vitamin C 1 tab 03/29/21 10:15 03/30/21 07:50 Multivitamin Tablet PO 1 tab DAILY FRANCHESKA Administration Omeprazole 20 mg 03/29/21 10:15 03/30/21 07:51 Omeprazole 20 Mg Capsule.Dr PO 20 mg BID@0630,1630 FRANCHESKA Administration Ondansetron HCl 4 mg 03/28/21 15:08 Ondansetron Odt 4 Mg Tab.Rapdis TRANSLINGU Q8H PRN Nausea and Vomiting Oxybutynin Chloride 15 mg 03/29/21 10:15 03/30/21 07:52 Oxybutynin Chloride Er 5 Mg Tab.Er.24 PO 15 mg DAILY FRANCHESKA Administration Pharmacy Consult 1 each 03/28/21 22:00 Consult Rx Perform Med Rec MISCELLANE ONCE PRN Consult order Quetiapine Fumarate 50 mg 03/29/21 21:00 03/29/21 20:48 Quetiapine Fumarate 50 Mg Tablet PO 50 mg BEDTIME FRANCHESKA Administration Senna 17.2 mg 03/28/21 03:25 Sennosides 8.6 Mg Tablet PO BEDTIME PRN Constipation Sodium Chloride 3 ml 03/28/21 08:00 03/30/21 07:49 0.9 % Sodium Chloride Flush 3 Ml Syringe IVFLUSH 3 ml QSHIFT FRANCHESKA Administration Valsartan 80 mg 03/29/21 10:15 03/30/21 07:51 Valsartan 80 Mg Tablet PO 80 mg DAILY FRANCHESKA Administration Protocol Labs CBC & Chem 7: 03/28/21 05:53 03/28/21 05:53 Labs: Laboratory Results - last 24 hr 03/29/21 03/29/21 03/29/21 11:57 13:26 16:38 POC Glucose 307 H 287 H C. difficile Tox B Gene NEGATIVE 03/29/21 03/30/21 20:30 07:15 POC Glucose 202 H 234 H C. difficile Tox B Gene Microbiology Microbiology Results: Microbiology 03/27/21 22:23 Blood Culture - Preliminary Blood - Venous No growth after 48 hours. 03/27/21 22:23 Blood Culture - Preliminary Blood - Venous No growth after 48 hours. 03/27/21 Unknown Urine Culture - Final Urine clean catch - Urine crain top Assessment and Plan (1) Encephalopathy: Status: Acute Assessment and Plan: 65-year-old female with a past medical history of hypertension, hyperlipidemia, diabetes, history of encephalopathy secondary to UTI,? 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 Noted to have mild UTI. 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 ER team tried LP but unsuccessful attempt. Neuro recommend MRI and MRA, she was not able to do MRI yesterday, will try today. Cannot leave AMA. Psych recommend Ativan for agitation CVA: Patient CT head showed subacute to chronic occipital infarcts. Fall precautions. PT/OT. Echocardiogram with bubble study. Speech and swallow sharona l. MRI and MRA recommended by Neuro UTI: Continue Levaquin, culture negativ Lactic acidosis: Gentle IV fluids. Diabetes: Insulin sliding scale. Diet: Dysphagia screen/speech and swallow eval. DVT prophylaxis: SCD boots Code status: Full code Quality Stroke Does the patient have a stroke diagnosis?: No VTE Prior VTE?: No VTE Risk Level:: Medical - moderate - high VTE Device Contraindication: N/A - Device Ordered VTE Drug Contraindication: Treatment Not Indicated
--- NOTE | 2021-03-30 10:48 | MHC.SLORD ---
Speech Language Pathology Order Status: Pt off floor for MRI. PACKER AND CARRY OUT checked in with RN. Pt tolerating current diet without difficulty. Continue to recommend GROUND/MECH (NDD2) solids and THIN liquids with PILLS WHOLE IN PUREE. Total supervision and universal aspiration precautions apply.
[2021-03-30 11:23] LABS: Glucose, Whole Blood 269 mg/dL (60-115)
[2021-03-30 11:26] VITALS: BP 114/56; PULSE 91; RESP 17; TEMP 36.3; O2SAT 97
[2021-03-30] MEDS: Acetaminophen 325 MG TABLET 650 MG PO (12:34)
[2021-03-30 15:33] VITALS: BP 144/69; PULSE 86; RESP 16; TEMP 36.7; O2SAT 96
[2021-03-30 16:43] LABS: Glucose, Whole Blood 216 mg/dL (60-115)
[2021-03-30 18:56] VITALS: BP 121/63; PULSE 92; RESP 14; TEMP 37; O2SAT 95
[2021-03-30 20:48] LABS: Glucose, Whole Blood 239 mg/dL (60-115)
[2021-03-30] MEDS: Insulin Glargine,Hum.rec.anlog 100 UNIT/ML 10 ML VIAL 40 UNIT SUBCUT (21:37)
[2021-03-30] MEDS: Donepezil HCl 5 MG TABLET PO (21:38)
[2021-03-30] MEDS: Atorvastatin Calcium 20 MG TABLET PO (21:38)
[2021-03-30] MEDS: levoFLOXacin/D5W 500 MG/100 ML PIGGYBACK 100 MG IV (21:39)
[2021-03-30] MEDS: QUEtiapine Fumarate 50 MG TABLET PO (21:39)
[2021-03-30] MEDS: Melatonin 3 MG TABLET 6 MG PO (21:39)
[2021-03-30 23:13] VITALS: BP 141/67; PULSE 93; RESP 18; TEMP 36.2; O2SAT 94
[2021-03-31 03:36] VITALS: BP 121/72; PULSE 95; RESP 16; TEMP 36.1; O2SAT 94
[2021-03-31 07:12] LABS: Glucose, Whole Blood 191 mg/dL (60-115)
[2021-03-31 07:41] VITALS: BP 124/50; PULSE 88; RESP 18; TEMP 36.7; O2SAT 96
[2021-03-31] MEDS: Insulin Lispro 100 UNIT/ML 3 ML VIAL SUBCUT ×2 (08:40→11:55)
[2021-03-31] MEDS: Valsartan 80 MG TABLET PO (08:41)
[2021-03-31] MEDS: Omeprazole 20 MG CAPSULE.DR PO (08:41)
[2021-03-31] MEDS: Metoprolol Succinate ER 25 MG TAB.ER.24H PO (08:42)
[2021-03-31] MEDS: Aspirin Enteric Coated 81 MG TABLET.DR PO (08:42)
[2021-03-31] MEDS: 0.9 % Sodium Chloride Flush 3 ML SYRINGE IVFLUSH (08:43)
[2021-03-31] MEDS: Multivitamin TABLET 1 TAB PO (08:43)
[2021-03-31] MEDS: Dicyclomine HCl 10 MG CAPSULE 20 MG PO (08:43)
--- NOTE | 2021-03-31 09:24 | PM.DS ---
DS: Providers Provider Date of Service: 03/31/21 Date of admission: 03/28/21 03:25 Primary care physician: Chris Rodriguez MD Consults: 03/28/21 03:27 Consult to Neurology Routine Consulting Provider: Nadeem Melendez Reason for consultation: AMS; subacute CVA 03/28/21 03:48 Consult to Psychiatry Routine Consulting Provider: Psych Covering Reason for consultation: Ams; capacity eval for AMA; pt sectioned 12 in ER. DS: Diagnosis Discharge Diagnosis (1) Encephalopathy: Status: Acute DS: Medications Discharge Medications Home Medications: Home Medications Medication Instructions Recorded Confirmed acetaminophen 650 mg 650 mg PO Q8H PRN 12/08/20 03/28/21 tablet,extended release (Tylenol Arthritis Pain) meclizine 25 mg tablet 25 mg PO BID PRN tab 12/08/20 03/28/21 dicyclomine 20 mg tablet 1 tab PO TID 12/16/20 03/28/21 quetiapine 50 mg tablet 1 tab PO BEDTIME 12/16/20 03/28/21 atorvastatin 20 mg tablet 20 mg PO BEDTIME 03/28/21 03/28/21 donepezil 5 mg tablet 5 mg PO BEDTIME 03/28/21 03/28/21 insulin lispro 100 unit/mL 2 - 14 unit SUBCUT TIDAC 03/28/21 03/28/21 subcutaneous pen (Humalog KwikPen (U-100) Insulin) multivitamin 1 tab PO DAILY 03/28/21 03/28/21 valsartan 80 mg tablet 80 mg PO DAILY 03/28/21 03/28/21 Previous Rx's Medication Instructions Recorded baclofen 10 mg tablet 10 mg PO TID 30 Days #90 tab 08/04/20 insulin glargine 100 unit/mL (3 40 unit SUBCUT BEDTIME 30 Days #10 08/04/20 mL) subcutaneous pen (Lantus ml Solostar U-100 Insulin) oxybutynin chloride 15 mg 15 mg PO DAILY 30 Days #30 tab 08/04/20 tablet,extended release 24 hr pantoprazole 40 mg tablet,delayed 40 mg PO BID@0630,1630 30 Days #30 08/04/20 release tab aspirin 81 mg tablet,delayed 81 mg PO DAILY #90 tab 02/28/21 release (Adult Low Dose Aspirin) metoprolol succinate 25 mg 25 mg PO DAILY 30 Days #30 tab 02/28/21 tablet,extended release 24 hr DS: Summary Hospital Course Hospital Course: Chief Complaint: AMS 65-year-old female with a past medical history of hypertension, hyperlipidemia, diabetes, neuropathy, obesity, restrictive lung disease, nocturnal hypoxemia, history of brain tumor/?? Pseudotumor cerebri/?? 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 At the time of my entry patient is alert and awake, lying in the bed comfortably, oriented times 2-3, but intermittently goes off the topic with tangential thoughts. Most of the history obtained from the patient's at bedside.? Also spoke to the ER staff. Reportedly patient has been confused lately more so from past 3 weeks; denies any falls or head strike.? Patient reports she has been having urinary frequency for the past few days. Complains of the headache, denies any blurry vision, seizure-like activity, neck stiffness. Denies any fevers. Denies any cough or sputum production. Denies any chest pain palpitations lightheadedness or dizziness. ER course:? ER team mentioned the patient is pleasantly confused but complained of the headache; no meningeal signs noted; lab showed mild leukocytosis, lactic acidosis and fingerstick glucose in 60; followed by the fingerstick glucose improved to 198; urinalysis is slightly abnormal consistent with mild UTI; patient was given Levaquin as patient is aware to penicillins and cephalosporins. CT head showed subacute to chronic occipital infarct; patient exam was grossly nonfocal; ER team tried to do an LP on the patient-attempt was failed given the patient's body habitus. As per the patient has been patient's mental status is not her baseline. Later on patient threatened to leave AMA; as patient clearly does not have capacity, ER team had Section [address] for the patient. Hospital course: Patient presented in the state of confusion with agiation, delerious and clinical presentation was consitent with encephalopathy. She had CT of the head showing no acute finding, UA was consistent with UTI. She was seen by Dr. Melendez and requested MRI and MRA and unfortunately was distorted by motion artifcat. She was see by Psychiatry and recommended ativan PRN for anxiety. She had a sitter due agitation but over the course of hospitalization has signficantly cleared and is now lucid. She probably suffered encephalopathy from UTI. Metabolic profiles were otherwise unremarkable. UTI is treated with Levaquin and will discharge oral Levaquin for 7 days therapy Final Diagnoses: 1. Metabolic encephalopath 2. UTI 3. Class 2 obesity Dispo: home with family Time Spent with Patient Time attestation: Total time spent providing and/or coordinating discharge services: Discharge coordination time: Greater than 30 minutes Quality: Stroke Does the patient have a stroke diagnosis?: No Physical Exam Vital Signs: Vital Signs: Last Vital Signs Temp 98.0 F 03/31/21 07:41 Pulse 88 03/31/21 07:41 Resp 18 03/31/21 07:41 BP 124/50 L 03/31/21 07:41 Pulse Ox 96 03/31/21 07:41 Body Mass Index 39.1 DS: Data Data Completed and Pending Completed studies during hospitalization [Text1]: Procedures Drainage of Spinal Canal, Percutaneous Approach, Diagnostic (06/23/20) Fluoroscopy of Spinal Cord (06/23/20) Labs on day of discharge: Laboratory Results - last 24 hr 03/30/21 03/30/21 03/30/21 11:19 16:30 20:40 POC Glucose 269 H 216 H 239 H 03/31/21 07:04 POC Glucose 191 H Preliminary micro results at discharge 03/27/21 22:23 Blood Culture - Preliminary Blood - Venous No growth after 48 hours. 03/27/21 22:23 Blood Culture - Preliminary Blood - Venous No growth after 48 hours. Discharge Plan Discharge Anticipated Discharge Date/Time: 03/31/21 09:22 Patient Disposition: Home, Self-Care Discharge Diagnosis: UTI, Encephalopathy Referrals: Chris Rodriguez MD [Primary Care Provider] - 04/07/21 9:20 am (You have a primary care follow up appointment on , April 07 at 9:20 am. Please call your doctor's office if you need to reschedule.) Discharge Medications: New levofloxacin 250 mg tablet 250 mg PO DAILY Qty: 3 RF: 0 Continued baclofen 10 mg Tablet 10 mg PO TID 30 Days Qty: 90 RF: 0 oxybutynin chloride 15 mg Tablet Extended Release 24hr 15 mg PO DAILY 30 Days Qty: 30 RF: 0 pantoprazole 40 mg tablet,delayed release (DR/EC) 40 mg PO BID@0630,1630 30 Days Qty: 30 RF: 0 Lantus Solostar U-100 Insulin 100 unit/mL (3 mL) insulin pen 40 unit subcut BEDTIME 30 Days Qty: 10 RF: 0 dicyclomine 20 mg tablet 1 tab PO TID RF: 0 quetiapine 50 mg tablet 1 tab PO BEDTIME RF: 0 multivitamin Tablet 1 tab PO DAILY RF: 0 valsartan 80 mg tablet 80 mg PO DAILY RF: 0 insulin lispro [Humalog KwikPen Insulin] 100 unit/mL insulin pen 2 - 14 unit subcut TIDAC RF: 0 atorvastatin 20 mg tablet 20 mg PO BEDTIME RF: 0 donepezil 5 mg tablet 5 mg PO BEDTIME RF: 0 meclizine 25 mg tablet 25 mg PO BID PRN (Reason: Dizziness) RF: 0 acetaminophen [Tylenol Arthritis Pain] 650 mg tablet extended release 650 mg PO Q8H PRN (Reason: Pain) RF: 0 aspirin [Adult Low Dose Aspirin] 81 mg tablet,delayed release (DR/EC) 81 mg PO DAILY Qty: 90 RF: 1 metoprolol succinate 25 mg tablet extended release 24 hr 25 mg PO DAILY 30 Days Qty: 30 RF: 5 Discharge Orders: Discharge Order (Routine); Ordered 03/31/21 Ordered By: Fercho Vazquez Diet: advance to usual diet and diabetic diet Activity on Discharge: As tolerated Stand Alone Forms: Patient Portal Discharge page Care Plan Goals: Full recovery from encephalopathy Health Concerns: Encephalopathy, UTI. Plan of Treatment: Take cefuroxime a as recommended and follow up with her primary care physician within a week, call for appointment. Assessment: See above
[2021-03-31 11:10] LABS: Glucose, Whole Blood 233 mg/dL (60-115)
[2021-03-31 11:24] VITALS: BP 136/53; PULSE 88; RESP 18; TEMP 36.6; O2SAT 94
--- NOTE | 2021-03-31 11:42 | MHC.SL.SWA ---
Speech Pathologist Impression: Oral Phase Dysphagia Risk of Aspiration Due to: Reduced Cognition Dysphasia Diet Status: No Change Liquid Consistency and Strategies for Safe Swallow: Liquid Intake Recommendation: Thin Solid Food Consistency: Dietary Recommendations: Grnd/Mech Altered (NDD2) Oral Medication Intake: Whole with Puree Compensatory Strategies and Precautions to be Taken for Safe Swallow: Sitting Upright (90 deg) Liquids from Cup Liquids from Straw Small Bites and Sips Alternate Liquids/Solids Oral Check Supervision While Eating and Drinking for Safe Swallow: Total Assistance Foods to Avoid: Moisten solids with sauces and gravies for ease of mastication. Recommendation for Speech: Inpatient Speech Therapy Comment: 1 f/u Hot Dipper Clinican/Clinical Fellow: No Supervisory Statement: I have reviewed and agree with the student/clinical fellow's documentation: N/A Speech Language Pathologist: Felisa Dodson M.A., CCC-BAGMAN/WOMAN
--- NOTE | 2021-03-31 11:55 | W.MHC.F2F ---
Service Date Service Date: 03/31/21 Reasons for Services Reason for intermediate: CV/CP assess and/or care and neurological assessment Homebound: Leaving the home is medically contraindicated at this time without the asist of a device and/or another person due th the listed conditions above and below. Homebound supporting statement: homebound due encephlopathy with with confusion and therefore needs the asistance of another person Certification: Based on the above findings, I certify that this patient is confined to the home and needs intermittent intermediate care, physical therapy and/or speech therapy, or continues to need occupational therapy. The patient is under my care, and I have initiated the establishment of the plan of care. The patient will be followed by a physician who will periodically review the plan of care.
--- NOTE | 2021-03-31 12:33 | MHC.CM.PN ---
IMM 03/31/21, PT DISCHARGING HOME W/[facility]NA FOR INTERMEDIATE, PT HAS PCP APPT ON04/07/21 AT 9:20AMM, FOR TRANSPORT. PT WILL D/C WITH LEVOFLOXACIN 250MG DAILY X 3DAYS
== END 2021-03-31 14:51 | disposition home health service (06) | DRG 689 ==
LOC: HO.ED 03-28 02:28 → HO.EDOVER 03-28 03:32 → HO.S3 03-28 08:39
PROVIDERS: Admitting Provider Hospitalist; Emergency Provider Emergency Medicine; PCP Internal Medicine; Visit Provider Internal Medicine
DX: N39.0 Urinary tract infection, site not specified (principal); G93.41 Metabolic encephalopathy; E66.9 Obesity, unspecified; Z68.39 Body mass index [BMI] 39.0-39.9, adult; E11.42 Type 2 diabetes mellitus with diabetic polyneuropathy; Z20.822 Contact with and (suspected) exposure to COVID-19; Z98.2 Presence of cerebrospinal fluid drainage device; Z88.0 Allergy status to penicillin; Z88.2 Allergy status to sulfonamides; Z79.82 Long term (current) use of aspirin; Z79.4 Long term (current) use of insulin; Z79.899 Other long term (current) drug therapy
CPT/HCPCS: 36415; 70450; 70544; 70551; 80048; 80061; 80076; 80307; 81001; 81003; 82077; 82140; 82803; 82947; 83605; 83735; 84484; 85025; 85610; 87040; 87086; 87493; 87635; 92507; 92610; 93005; 93306; 97162; 97166; 97535; 99285; J1200; J1956; J2060

== ENCOUNTER 2021-04-03 07:25 | Inpatient (IN) | payer MEDICARE, OTHER, SELFPAY ==
--- NOTE | ~2021-04-03 | CT_ITS ---
EXAMINATION: CT HEAD WITHOUT CONTRAST CLINICAL INFORMATION: Headache COMPARISON: Head CT from 03/28/2021 and MRI from 03/30/2021. TECHNIQUE: Contiguous axial imaging was performed from the skull base to vertex without intravenous administration of contrast. This CT examination was performed using dose optimization techniques as appropriate, variously including the following: *Automated exposure control *Adjustment of mA and/or kV according to patient size (this includes techniques or standardized protocols for targeted exams where dose is matched to indication/reason for exam; i.e. extremities or head) *Use of iterative reconstruction technique DLP: 717 mGy-cm FINDINGS: Again noted is the loss of crain-white matter differentiation in each occipital lobe. No hemorrhagic transformation of the infarcts. Also, no significant mass effect. There is no midline shift. No extra-axial fluid collection. There is an old lacunar infarct of the anterior right thalamus. No new infarcts. No significant parenchymal volume loss. No hydrocephalus. The calvarium is intact and the visualized paranasal sinuses, mastoid air cells and middle ear cavities are well-aerated. CT/CT head/brain wo con IMPRESSION: No new intracranial pathology compared to 0 03/28 2021. No interval hemorrhagic transformation of right and left [employer] territory infarcts.
--- NOTE | ~2021-04-03 | XR_ITS ---
EXAMINATION: XR CHEST CLINICAL INFORMATION: AMS COMPARISON: Chest 03/08/2021 TECHNIQUE: 2 views of the chest were obtained. FINDINGS: The lungs are well-expanded with patchy opacity right upper lobe similar to previous study 03/08/2021, likely chronic scarring and overlying right first rib costochondral sternal junction.. Rest of lungs are clear. The heart size and pulmonary vascularity is normal. There are bilateral short Simental rods in the posterior spine for correction of upper thoracic scoliosis. No other bony abnormality seen.. XR/XR chest 2V IMPRESSION: No acute cardiopulmonary process seen.
--- NOTE | ~2021-04-03 | CT_ITS ---
EXAMINATION: CT ANGIOGRAM BRAIN, HEAD CLINICAL INFORMATION: Confusion. COMPARISON: CT head 04/03/2021. MRI brain and MR angiography head 03/29/2021. TECHNIQUE: Test bolus sequences followed by intravenous administration 70 mL of Omnipaque 350 intravenous contrast. Helical imaging was performed in the axial plane from the skull base to the vertex. Delayed postcontrast imaging of the head was also performed. The data was processed at the veterinary surgery technologist workstation for generation of MIP sequences. Three-dimensional volume rendered reformatted images were also generated at an offline 3-D workstation. This CT examination was performed using dose optimization techniques as appropriate, variously including the following: *Automated exposure control *Adjustment of mA and/or kV according to patient size (this includes techniques or standardized protocols for targeted exams where dose is matched to indication/reason for exam; i.e. extremities or head) *Use of iterative reconstruction technique DLP: 1953 mGy-cm FINDINGS: Mild-moderate segmental stenosis of the basilar artery is noted. Left vertebral artery is is not visualized distal to the origin of the left posterior inferior cerebellar artery which may represent normal anatomic variation as opposed to occlusion or stenosis of the left vertebral artery distal to the origin of the left posterior inferior cerebellar artery. Moderate focal stenosis of the right posterior cerebral artery is suggested at the P1 P2 junction of this region is suboptimally visualized secondary to artifact. Making allowances for artifacts, no additional posterior cerebral artery stenoses or occlusions are noted. Moderate segmental stenosis of the cavernous portions of the internal carotid arteries is present in the setting of segmental calcific atherosclerosis. The M1 segments of the middle cerebral arteries are grossly normal. No intraluminal opacification is noted in the proximal aspect of the A1 segment of the left anterior cerebral artery with diminutive intraluminal opacification noted in the distal aspect of the A1 segment of the left anterior cerebral artery. The examination is not tailored to assess the brain parenchyma. However, cytotoxic edema is noted within the parasagittal occipital lobes corresponding to the areas of acute infarct noted on the comparison study of 04/03/2021 and 03/29/2021. No intracranial hemorrhage is noted. Mild diffuse commensurate prominence of ventricles and sulci is visualized. CT/CT angio head IMPRESSION: 1. Vascular findings: 1. Mild-moderate segmental stenosis of the basilar artery. 2. Findings suspicious for moderate focal stenosis of the posterior cerebral artery at the P1 P2 junction. 3. High-grade segmental stenosis of the proximal A1 segment of the left anterior cerebral artery. 4. Moderate segmental stenosis of the cavernous portions of the internal carotid arteries. 5. The above findings may represent intracranial atherosclerosis. No definitive thromboembolus in situ identified. Nonvascular findings: 1. Partially visualized involving infarcts within the parasagittal left and right occipital lobes. No gross intracranial hemorrhage.
[2021-04-03 08:02] VITALS: BP 128/78; BP 134/67; PULSE 96; PULSE 99; RESP 20; TEMP 36.9; O2SAT 99; BMI 41.3
--- NOTE | 2021-04-03 08:08 | ECG_ITS ---
Test Reason : AMS Blood Pressure : / mmHG Vent. Rate : 095 BPM Atrial Rate : 095 BPM P-R Int : 132 ms QRS Dur : 086 ms QT Int : 348 ms P-R-T Axes : 030 027 018 degrees QTc Int : 437 ms Normal sinus rhythm Normal ECG When compared with ECG of 28-MAR-2021 07:12, Premature atrial complexes are no longer Present Referred By: Barron Arriaga Electronically Signed By:BAIRON IVY
--- NOTE | 2021-04-03 08:08 | ED.AMS ---
HPI - Altered Mental Status General Chief Complaint: Altered Mental Status Stated Complaint: AMS,RECENT UTI PER Time Seen by Provider: 04/03/21 08:24 Source: patient Mode of arrival: ambulatory Limitations: no limitations History of Present Illness HPI narrative: 65-year-old female presents emergency department complaining of headache. Patient presents from home for altered mental status patient is alert oriented to person and time is able to me her birthday. Patient has history of brain tumor was discharged 2 days ago after having acute encephalopathy patient had a complete workup even attempted LP inpatient service decided the is all related to UTI. Patient was Section 12 that she was unsafe to go home patient denies cough fever chest pain she is currently on Levaquin for the UTI as she is allergic to penicillin. Severity: mild Related Data Home Medications Medication Instructions Recorded Confirmed acetaminophen 650 mg 650 mg PO Q8H PRN 12/08/20 04/03/21 tablet,extended release (Tylenol Arthritis Pain) meclizine 25 mg tablet 25 mg PO BID PRN tab 12/08/20 03/28/21 dicyclomine 20 mg tablet 1 tab PO TID 12/16/20 04/03/21 quetiapine 50 mg tablet 1 tab PO BEDTIME 12/16/20 03/28/21 atorvastatin 20 mg tablet 20 mg PO BEDTIME 03/28/21 04/03/21 donepezil 5 mg tablet 5 mg PO BEDTIME 03/28/21 04/03/21 insulin lispro 100 unit/mL 2 - 14 unit SUBCUT TIDAC 03/28/21 04/03/21 subcutaneous pen (Humalog KwikPen (U-100) Insulin) multivitamin 1 tab PO DAILY 03/28/21 03/28/21 valsartan 80 mg tablet 80 mg PO DAILY 03/28/21 03/28/21 Previous Rx's Medication Instructions Recorded baclofen 10 mg tablet 10 mg PO TID 30 Days #90 tab 08/04/20 insulin glargine 100 unit/mL (3 40 unit SUBCUT BEDTIME 30 Days #10 08/04/20 mL) subcutaneous pen (Lantus ml Solostar U-100 Insulin) oxybutynin chloride 15 mg 15 mg PO DAILY 30 Days #30 tab 08/04/20 tablet,extended release 24 hr pantoprazole 40 mg tablet,delayed 40 mg PO BID@0630,1630 30 Days #30 08/04/20 release tab aspirin 81 mg tablet,delayed 81 mg PO DAILY #90 tab 02/28/21 release (Adult Low Dose Aspirin) metoprolol succinate 25 mg 25 mg PO DAILY 30 Days #30 tab 02/28/21 tablet,extended release 24 hr levofloxacin 250 mg tablet 250 mg PO DAILY #3 tab 03/31/21 Allergies Allergy/AdvReac Type Severity Reaction Status Date / Time Sulfa (Sulfonamide Allergy Severe DIFFICULTY Verified 02/28/21 15:39 Antibiotics) BREATHING [SULFA (SULFONAMIDE ANTIBIOTICS)] cephalexin [From KEFLEX] Allergy Intermediate RASH,HIVES Verified 02/28/21 15:39 amoxicillin [AMOXICILLIN] Allergy Unknown DENIES Verified 02/28/21 15:39 THIS ALLERGY 03/28/2018 penicillin V Allergy Unknown Unknown Verified 02/28/21 15:39 sumatriptan [From IMITREX] AdvReac Severe HEART Verified 02/28/21 15:39 PALPITATIONS topiramate [From TOPAMAX] AdvReac Severe AGITATION Verified 02/28/21 15:39 Review of Systems Review of Systems: Review of systems: General: Altered mental status recent illness Patient denies any fever chills or falls Musculoskeletal: Denies back pain or body aches or other injuries HEENT: denies headache, runny nose, ear pain Respiratory: denies shortness of breath, cough Cardiovascular: no chest pain or palpitations : denies dysuria, frequency Abdomen: no nausea vomiting denies abdominal pain Extremities: no swelling, no pain Skin: no diaphoresis Yes all other systems are reviewed and are negative [facility] Past Medical History Medical History (Updated 04/03/21 @ 15:14 by Barron Arriaga DO) Anxiety Asthma CHF (congestive heart failure) Diabetes Diabetic acetonemia Dyspnea on exertion Essential hypertension HTN (hypertension) Myalgia and myositis Neuropathy Nocturnal hypoxemia Obesity (BMI 30-39.9) Orthopnea Restrictive lung disease Type 2 diabetes mellitus with unspecified complications UTI (urinary tract infection) Surgical History History of appendectomy History of arthroscopy of both knees History of hysterectomy History of pancreatic surgery Family History Family History Father No problems noted. Mother Angina at rest Sister Lung cancer Colon cancer COPD (chronic obstructive pulmonary disease) Social History Social History Household Members: Spouse Housing: Unknown / Unable to assess Do you presently have visiting nurse or other home services: No Unable to assess alcohol history related to: Unknown Alcohol intake: unknown Patient Tobacco Use Status: Never used Tobacco e-Cigarette/Vaping Use: Never Used Second Hand Smoke Exposure: No Advance Directives: Yes Advance Directives on File: Yes Advance Directives Date on File: 07/27/20 service: No Current occupational status: unemployed and disabled Current occupation: right handed Sexual orientation: Straight/Heterosexual Physical Exam Vital Signs: Vital Signs: Last Vital Signs Temp 98.4 F 04/03/21 08:02 Pulse 96 04/03/21 08:02 Resp 20 04/03/21 08:02 BP 134/67 04/03/21 08:02 Pulse Ox 99 04/03/21 08:02 Body Mass Index 41.3 General: Well-appearing well-nourished in no signs of distress HEENT: Normocephalic atraumatic Neck: No signs of JVD, no masses no tenderness or lymphadenopathy Cardiovascular: Regular rate and rhythm Respiratory: Clear to auscultation bilaterally Abdomen: Soft nontender no masses Extremities: Normal pedal pulses no signs of edema Skin: Dry warm no rashes Back: No tenderness full ROM MDM - Altered Mental Status MDM Narrative Medical decision making narrative: Concern for failed ouptatient treatment after admission with AMS. Patient more confused and acting out. Urine still shows WBC's. The cultures shows it should have been treated. I will admit Lab Data Result diagrams: 04/03/21 08:43 04/03/21 08:43 Labs: Lab Results 04/03/21 04/03/21 04/03/21 Range/Units 08:27 08:43 08:43 WBC 8.9 (4.8-10.8) X10*3/uL RBC 4.36 (4.20-5.50) X10*6/uL Hgb 13.7 (12.0-16.0) g/dl Hct 41.2 (37-47) % MCV 94.5 (80-98) fL MCH 31.4 (27.0-33.0) pg MCHC 33.3 (31.0-35.0) g/dl RDW 14.6 (11.0-16.0) % Plt Count 253 (160-400) X10*3/uL MPV 9.2 L (9.4-12.3) fL Immature Gran % (Auto) 0.8 H (0.0-0.4) % Neut % (Auto) 69.9 (45-73) % Lymph % (Auto) 19.5 L (20-40) % [place] % (Auto) 7.8 (2-11) % Eos % (Auto) 1.5 (0-4) % Baso % (Auto) 0.5 (0-2) % Lymph # (Auto) 1.7 (1.2-4.9) X10*3/uL [place] # (Auto) 0.7 (0.1-1.2) X10*3/uL Eos # (Auto) 0.1 (0.0-0.4) X10*3/uL Baso # (Auto) 0.0 (0.0-0.2) X10*3/uL Abs Immat Gran (auto) 0.07 H (0.00-0.03) X10*3/uL Absolute Neuts (auto) 6.2 (2.0-8.3) X10*3/uL Absolute Nucleated RBC 0.000 (0.0-0.012) X10*3/uL Nucleated RBC % (auto) 0.0 (0.0-0.2) /100WBC Sodium 142 (135-145) mmol/L Potassium 4.3 (3.3-5.1) mmol/L Chloride 108 (96-108) mmol/L Carbon Dioxide 23 (22-29) mmol/L Anion Gap 15 (12-20) BUN 14 (9-16) mg/dL Creatinine 0.82 (0.5-1.4) mg/dL Estim Creat Clear Calc 72.8 Estimated GFR > 60 POC Glucose (60-115) mg/dL Random Glucose 257 H (60-115) mg/dL Lactic Acid (0.5-2.0) mmol/L Calcium 9.8 (8.4-10.2) mg/dL Total Bilirubin 0.5 (0.0-1.0) mg/dL Direct Bilirubin 0.2 (0.0-0.5) mg/dL AST 16 (5-31) U/L ALT 19 (0-31) U/L Alkaline Phosphatase 65 (39-117) U/L Troponin I High Sens (<3.5-17.0) ng/L Total Protein 7.0 (6.5-8.0) g/dL Albumin 4.5 (3.5-5.0) g/dL Lipase 15 (8-78) U/L TSH 0.67 (0.32-4.0) uIU/mL Urine Color Urine Appearance Urine pH (5.0-8.0) Ur Specific [place] (1.005-1.025) Urine Protein (NEG-TRACE) MG/DL Urine Glucose (UA) (NEG) MG/DL Urine Ketones (NEG) MG/DL Urine Blood (NEG) Urine Nitrite (NEG) Ur Leukocyte Esterase (NEG) Urine RBC (0) /HPF Urine WBC (0-4) /HPF Ur Squamous Epith Cells /LPF Urine Bacteria /LPF Urine Mucus /LPF COVID-19 (FLOR) Negative (Negative) COVID-19 Clin Com See Note 04/03/21 04/03/21 04/03/21 Range/Units 08:43 08:43 08:49 WBC (4.8-10.8) X10*3/uL RBC (4.20-5.50) X10*6/uL Hgb (12.0-16.0) g/dl Hct (37-47) % MCV (80-98) fL MCH (27.0-33.0) pg MCHC (31.0-35.0) g/dl RDW (11.0-16.0) % Plt Count (160-400) X10*3/uL MPV (9.4-12.3) fL Immature Gran % (Auto) (0.0-0.4) % Neut % (Auto) (45-73) % Lymph % (Auto) (20-40) % [place] % (Auto) (2-11) % Eos % (Auto) (0-4) % Baso % (Auto) (0-2) % Lymph # (Auto) (1.2-4.9) X10*3/uL [place] # (Auto) (0.1-1.2) X10*3/uL Eos # (Auto) (0.0-0.4) X10*3/uL Baso # (Auto) (0.0-0.2) X10*3/uL Abs Immat Gran (auto) (0.00-0.03) X10*3/uL Absolute Neuts (auto) (2.0-8.3) X10*3/uL Absolute Nucleated RBC (0.0-0.012) X10*3/uL Nucleated RBC % (auto) (0.0-0.2) /100WBC Sodium (135-145) mmol/L Potassium (3.3-5.1) mmol/L Chloride (96-108) mmol/L Carbon Dioxide (22-29) mmol/L Anion Gap (12-20) BUN (9-16) mg/dL Creatinine (0.5-1.4) mg/dL Estim Creat Clear Calc Estimated GFR POC Glucose 253 H (60-115) mg/dL Random Glucose (60-115) mg/dL Lactic Acid 1.2 (0.5-2.0) mmol/L Calcium (8.4-10.2) mg/dL Total Bilirubin (0.0-1.0) mg/dL Direct Bilirubin (0.0-0.5) mg/dL AST (5-31) U/L ALT (0-31) U/L Alkaline Phosphatase (39-117) U/L Troponin I High Sens 5.7 (<3.5-17.0) ng/L Total Protein (6.5-8.0) g/dL Albumin (3.5-5.0) g/dL Lipase (8-78) U/L TSH (0.32-4.0) uIU/mL Urine Color Urine Appearance Urine pH (5.0-8.0) Ur Specific [place] (1.005-1.025) Urine Protein (NEG-TRACE) MG/DL Urine Glucose (UA) (NEG) MG/DL Urine Ketones (NEG) MG/DL Urine Blood (NEG) Urine Nitrite (NEG) Ur Leukocyte Esterase (NEG) Urine RBC (0) /HPF Urine WBC (0-4) /HPF Ur Squamous Epith Cells /LPF Urine Bacteria /LPF Urine Mucus /LPF COVID-19 (FLOR) (Negative) COVID-19 Clin Com 04/03/21 04/03/21 Range/Units 10:04 10:12 WBC (4.8-10.8) X10*3/uL RBC (4.20-5.50) X10*6/uL Hgb (12.0-16.0) g/dl Hct (37-47) % MCV (80-98) fL MCH (27.0-33.0) pg MCHC (31.0-35.0) g/dl RDW (11.0-16.0) % Plt Count (160-400) X10*3/uL MPV (9.4-12.3) fL Immature Gran % (Auto) (0.0-0.4) % Neut % (Auto) (45-73) % Lymph % (Auto) (20-40) % [place] % (Auto) (2-11) % Eos % (Auto) (0-4) % Baso % (Auto) (0-2) % Lymph # (Auto) (1.2-4.9) X10*3/uL [place] # (Auto) (0.1-1.2) X10*3/uL Eos # (Auto) (0.0-0.4) X10*3/uL Baso # (Auto) (0.0-0.2) X10*3/uL Abs Immat Gran (auto) (0.00-0.03) X10*3/uL Absolute Neuts (auto) (2.0-8.3) X10*3/uL Absolute Nucleated RBC (0.0-0.012) X10*3/uL Nucleated RBC % (auto) (0.0-0.2) /100WBC Sodium (135-145) mmol/L Potassium (3.3-5.1) mmol/L Chloride (96-108) mmol/L Carbon Dioxide (22-29) mmol/L Anion Gap (12-20) BUN (9-16) mg/dL Creatinine (0.5-1.4) mg/dL Estim Creat Clear Calc Estimated GFR POC Glucose 202 H (60-115) mg/dL Random Glucose (60-115) mg/dL Lactic Acid (0.5-2.0) mmol/L Calcium (8.4-10.2) mg/dL Total Bilirubin (0.0-1.0) mg/dL Direct Bilirubin (0.0-0.5) mg/dL AST (5-31) U/L ALT (0-31) U/L Alkaline Phosphatase (39-117) U/L Troponin I High Sens (<3.5-17.0) ng/L Total Protein (6.5-8.0) g/dL Albumin (3.5-5.0) g/dL Lipase (8-78) U/L TSH (0.32-4.0) uIU/mL Urine Color YELLOW Urine Appearance HAZY Urine pH 6.0 (5.0-8.0) Ur Specific [place] 1.025 (1.005-1.025) Urine Protein TRACE (NEG-TRACE) MG/DL Urine Glucose (UA) NEG (NEG) MG/DL Urine Ketones 15 (NEG) MG/DL Urine Blood NEG (NEG) Urine Nitrite NEG (NEG) Ur Leukocyte Esterase 1+ H (NEG) Urine RBC 0 (0) /HPF Urine WBC 5-9 H (0-4) /HPF Ur Squamous Epith Cells 1+ /LPF Urine Bacteria TRACE /LPF Urine Mucus 1+ /LPF COVID-19 (FLOR) (Negative) COVID-19 Clin Com Discharge Plan Discharge Clinical Impression: Acute delirium, UTI (urinary tract infection) Patient Disposition: Admitted As Inpatient
--- NOTE | 2021-04-03 08:10 | PC.NURSE ---
pt to CXR at this time
--- NOTE | 2021-04-03 08:12 | PC.NURSE ---
Pt alert and oriented to self and .. Pt was discharged from ed 2 days ago for increased confusion. per ems called because he noticed pt has gotten worse. ems also reports pt has been Hallucinating and unsteady gait. Pt is able to state her name but thinks she is currently at the [facility]. No apparent distress noted. Pt awaiting 's arrival.
[2021-04-03 08:52] LABS: MANUAL DIFF FLAG NO
[2021-04-03] MEDS: 0.9 % Sodium Chloride 500 ML 999 ML IV (08:53)
[2021-04-03 08:54] LABS: Basophils Percent Auto 0.5 % (0-2); Eosinophils Absolute Auto 0.1 X10*3/uL (0.0-0.4); Eosinophils Percent Auto 1.5 % (0-4); Hematocrit 41.2 % (37-47); Hemoglobin 13.7 g/dl (12.0-16.0); Imm Gran Abs Auto 0.07 X10*3/uL (0.00-0.03); Imm Gran Pct Auto 0.8 % (0.0-0.4); Lymphocytes Absolute Auto 1.7 X10*3/uL (1.2-4.9); Lymphocytes Percent Auto 19.5 % (20-40); Mean Corpuscular HGB Conc 33.3 g/dl (31.0-35.0); Mean Corpuscular Hemoglobin 31.4 pg (27.0-33.0); Mean Corpuscular Volume 94.5 fL (80-98); Mean Platelet Volume 9.2 fL (9.4-12.3); Monocytes Absolute Auto 0.7 X10*3/uL (0.1-1.2); Monocytes Percent Auto 7.8 % (2-11); Neutrophils Absolute Auto 6.2 X10*3/uL (2.0-8.3); Neutrophils Percent Auto 69.9 % (45-73); Platelet Count 253 X10*3/uL (160-400); Red Blood Count 4.36 X10*6/uL (4.20-5.50); Red Cell Distribution Width 14.6 % (11.0-16.0); White Blood Count 8.9 X10*3/uL (4.8-10.8)
[2021-04-03 08:54] LABS: Glucose, Whole Blood 253 mg/dL (60-115)
[2021-04-03 09:07] LABS: COVID-19 Test Negative (Negative)
[2021-04-03 09:11] LABS: Lactic Acid 1.2 mmol/L (0.5-2.0)
[2021-04-03 09:16] LABS: Anion Gap 15 (12-20); Blood Urea Nitrogen 14 mg/dL (9-16); Calcium 9.8 mg/dL (8.4-10.2); Carbon Dioxide 23 mmol/L (22-29); Chloride 108 mmol/L (96-108); Creatinine Clr Calc Pharmacy 72.8; Estimated Glomerular Filt Rate > 60; Glucose Random 257 mg/dL (60-115); Lipase 15 U/L (8-78); Potassium 4.3 mmol/L (3.3-5.1); Sodium 142 mmol/L (135-145)
[2021-04-03 09:39] LABS: Troponin-I High Sensitivity 5.7 ng/L (<3.5-17.0)
[2021-04-03 10:07] LABS: Glucose, Whole Blood 202 mg/dL (60-115)
--- NOTE | 2021-04-03 10:13 | PC.NURSE ---
This rfp writer came to pt's room to check on her and noted pt pulled out her iv in her L AC. Moderate amount of blood noted on pt's arm and rey. pt also attempting to get out of bed. Pt cleaned up and repositioned in bed. staff will closely monitor pt.
[2021-04-03 10:25] LABS: Glucose Urine UA NEG (NEG); Leukocyte Esterase Urine 1+ (NEG); Nitrite Urine NEG (NEG); Specific Gravity - Urine 1.025 (1.005-1.025); UACC Culture Trigger YES; Urine Blood NEG (NEG); Urine Ketones 15 MG/DL (NEG); Urine Protein TRACE MG/DL (NEG-TRACE)
[2021-04-03 10:28] LABS: Appearance Urine HAZY; Color Urine YELLOW
[2021-04-03 10:38] LABS: Bacteria Urine TRACE /LPF; Mucus Urine 1+ /LPF; RBC Urine 0 /HPF (0); Squamous Epithelial Cell Urine 1+ /LPF
--- NOTE | 2021-04-03 10:50 | PC.NURSE ---
Pt attempting to exit bed. This conventional underwriter noted pt with leg over side rail. 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 This conventional underwriter told pt that there was no book present, however she continued reaching and insisted that there was a book. Pt stating she is on the beach somewhere and that she is going some place. Pt reoriented by this conventional underwriter. Close supervision maintained by staff.
--- NOTE | 2021-04-03 12:24 | PC.NURSE ---
This hand sign writer contacted pt's (Ant Nichole [phone]) to find out what time he will be coming here with pt's med list. He states he has to get some sleep first then he will come down. This hand sign writer made pt aware that I spoke with her . Pt continues to make attempts to exit bed by climbing over bed rails. Pt stating [place] is [place] the [place] and is read to go. MARCUS Whitman at bedside
[2021-04-03 12:49] LABS: Alanine Aminotransferase 19 U/L (0-31); Albumin Level 4.5 g/dL (3.5-5.0); Alkaline Phosphatase 65 U/L (39-117); Aspartate Amino Transferase 16 U/L (5-31); Bilirubin Direct 0.2 mg/dL (0.0-0.5); Bilirubin Total 0.5 mg/dL (0.0-1.0)
--- NOTE | 2021-04-03 12:49 | PC.NURSE ---
Dr. Villarreal at bedside.
--- NOTE | 2021-04-03 12:59 | PM.IMHP ---
History of Present Illness Date of Service: 04/03/21 Chief Complaint: Confusion This is a 65-year-old female was brought to the emergency department today due to confusion. Patient was admitted here at [facility] from March 28 to March 31 secondary to confusion. At that time brain MRI did show acute infarcts within the left greater than right VIDEO SYSTEMS ENGINEER territory. Symptoms were also thought to be secondary to UTI. Her confusion improved and she was able to be discharged home on March 31. In the emergency department she appears to be hallucinating, frequently reaching out to grab ?little statues . She is able to tell me her name, the year and that she is in the emergency room because of a UTI. Although she tells me she is not doing well she is unable to verbalize any specific complaints. She denies any headache, fever, chills, abdominal pain, dysuria. Workup today in the emergency department has been thus far unremarkable. Brain CT shows no acute changes. Patient is afebrile, lab work showing no leukocytosis or electrolyte abnormalities. Due to confusion admission was requested. Of note patient had inpatient admission in June 2020 for agitation and confusion which required ICU level of care. At that time her symptoms were thought to be secondary to medication and possible baclofen withdrawal. Her symptoms improved with medication adjustment. She was admitted to in July 2020 and at that time frontotemporal dementia or Lewy body dementia was discussed. After that admission she was referred for neuropsych testing. It is unclear if this was done. Review of Systems Review of Systems: Yes all other systems are reviewed and are negative Constitutional: Constitutional: Denies chills and Denies fever(s) Cardiovascular: Cardiovascular: Denies chest pain Respiratory: Respiratory: Denies cough Gastrointestinal: Gastrointestinal: Denies abdominal pain [facility] Medical History (Updated 04/03/21 @ 13:44 by MARCUS Benitez) Anxiety Asthma CHF (congestive heart failure) Diabetes Diabetic acetonemia Dyspnea on exertion Essential hypertension HTN (hypertension) Myalgia and myositis Neuropathy Nocturnal hypoxemia Obesity (BMI 30-39.9) Orthopnea Restrictive lung disease Type 2 diabetes mellitus with unspecified complications UTI (urinary tract infection) Family History Father No problems noted. Mother Angina at rest Sister Lung cancer Colon cancer COPD (chronic obstructive pulmonary disease) Surgical History History of appendectomy History of arthroscopy of both knees History of hysterectomy History of pancreatic surgery Social History Household Members: Spouse Housing: Unknown / Unable to assess Do you presently have visiting nurse or other home services: No Unable to assess alcohol history related to: Unknown Alcohol intake: unknown Patient Tobacco Use Status: Never used Tobacco e-Cigarette/Vaping Use: Never Used Second Hand Smoke Exposure: No Advance Directives: Yes Advance Directives on File: Yes Advance Directives Date on File: 07/27/20 service: No Current occupational status: unemployed and disabled Current occupation: right handed Sexual orientation: Straight/Heterosexual Meds Allergies Allergy/AdvReac Type Severity Reaction Status Date / Time Sulfa (Sulfonamide Allergy Severe DIFFICULTY Verified 02/28/21 15:39 Antibiotics) BREATHING [SULFA (SULFONAMIDE ANTIBIOTICS)] cephalexin [From KEFLEX] Allergy Intermediate RASH,HIVES Verified 02/28/21 15:39 amoxicillin [AMOXICILLIN] Allergy Unknown DENIES Verified 02/28/21 15:39 THIS ALLERGY 03/28/2018 penicillin V Allergy Unknown Unknown Verified 02/28/21 15:39 sumatriptan [From IMITREX] AdvReac Severe HEART Verified 02/28/21 15:39 PALPITATIONS topiramate [From TOPAMAX] AdvReac Severe AGITATION Verified 02/28/21 15:39 Home Medications Medication Instructions Recorded Confirmed Last Taken Type acetaminophen 650 mg 650 mg PO Q8H PRN 12/08/20 04/03/21 Unknown History tablet,extended release (Tylenol Arthritis Pain) meclizine 25 mg tablet 25 mg PO BID PRN tab 12/08/20 03/28/21 Unknown History dicyclomine 20 mg tablet 1 tab PO TID 12/16/20 04/03/21 Unknown History quetiapine 50 mg tablet 1 tab PO BEDTIME 12/16/20 03/28/21 Unknown History atorvastatin 20 mg tablet 20 mg PO BEDTIME 03/28/21 04/03/21 Unknown History donepezil 5 mg tablet 5 mg PO BEDTIME 03/28/21 04/03/21 Unknown History insulin lispro 100 unit/mL 2 - 14 unit SUBCUT TIDAC 03/28/21 04/03/21 Unknown History subcutaneous pen (Humalog KwikPen (U-100) Insulin) multivitamin 1 tab PO DAILY 03/28/21 03/28/21 Unknown History valsartan 80 mg tablet 80 mg PO DAILY 03/28/21 03/28/21 Unknown History Physical Exam Vital Signs and Narrative: Vital Signs: Last Vital Signs Temp 98.4 F 04/03/21 08:02 Pulse 96 04/03/21 08:02 Resp 20 04/03/21 08:02 BP 134/67 04/03/21 08:02 Pulse Ox 99 04/03/21 08:02 Body Mass Index 41.3 Const: Other: Patient reaching out to grab small statues actively ahllucinating. General: alert and awake Nutritional Appearance: obese HENMT: Head: Yes normocephalic and Yes atraumatic Eyes: Sclerae: sclerae normal Pupils: Equal, round and reactive pupils present Resp: Effort & Inspection: normal respiratory effort and no respiratory distress Cardio: Rate: regular rate Rhythm: regular rhythm GI: Palpation (GI): Soft to palpation and nontender Neuro: Cranial nerves: Yes CN's II-XII intact bilaterally and Yes Equal, round and reactive pupils present Extrem: Other: able to move all 4 extremities spontaneously General: Yes normal to inspection Results Labs CBC and Chem 7: 04/03/21 08:43 04/03/21 08:43 Labs: Laboratory Results - last 24 hr 04/03/21 04/03/21 04/03/21 08:27 08:43 08:43 MCV 94.5 MCH 31.4 MCHC 33.3 RDW 14.6 Plt Count 253 MPV 9.2 L Immature Gran % (Auto) 0.8 H Neut % (Auto) 69.9 Lymph % (Auto) 19.5 L [place] % (Auto) 7.8 Eos % (Auto) 1.5 Baso % (Auto) 0.5 Lymph # (Auto) 1.7 [place] # (Auto) 0.7 Eos # (Auto) 0.1 Baso # (Auto) 0.0 Abs Immat Gran (auto) 0.07 H Absolute Neuts (auto) 6.2 Absolute Nucleated RBC 0.000 Nucleated RBC % (auto) 0.0 Anion Gap 15 Estim Creat Clear Calc 72.8 Estimated GFR > 60 POC Glucose Random Glucose 257 H Lactic Acid Calcium 9.8 Total Bilirubin 0.5 Direct Bilirubin 0.2 AST 16 ALT 19 Alkaline Phosphatase 65 Troponin I High Sens Total Protein 7.0 Albumin 4.5 Lipase 15 Urine Color Urine Appearance Urine pH Ur Specific [place] Urine Protein Urine Glucose (UA) Urine Ketones Urine Blood Urine Nitrite Ur Leukocyte Esterase Urine RBC Urine WBC Ur Squamous Epith Cells Urine Bacteria Urine Mucus COVID-19 (FLOR) Negative COVID-19 Clin Com See Note 04/03/21 04/03/21 04/03/21 08:43 08:43 08:49 MCV MCH MCHC RDW Plt Count MPV Immature Gran % (Auto) Neut % (Auto) Lymph % (Auto) [place] % (Auto) Eos % (Auto) Baso % (Auto) Lymph # (Auto) [place] # (Auto) Eos # (Auto) Baso # (Auto) Abs Immat Gran (auto) Absolute Neuts (auto) Absolute Nucleated RBC Nucleated RBC % (auto) Anion Gap Estim Creat Clear Calc Estimated GFR POC Glucose 253 H Random Glucose Lactic Acid 1.2 Calcium Total Bilirubin Direct Bilirubin AST ALT Alkaline Phosphatase Troponin I High Sens 5.7 Total Protein Albumin Lipase Urine Color Urine Appearance Urine pH Ur Specific [place] Urine Protein Urine Glucose (UA) Urine Ketones Urine Blood Urine Nitrite Ur Leukocyte Esterase Urine RBC Urine WBC Ur Squamous Epith Cells Urine Bacteria Urine Mucus COVID-19 (FLOR) COVID-19 Clin Com 04/03/21 04/03/21 10:04 10:12 MCV MCH MCHC RDW Plt Count MPV Immature Gran % (Auto) Neut % (Auto) Lymph % (Auto) [place] % (Auto) Eos % (Auto) Baso % (Auto) Lymph # (Auto) [place] # (Auto) Eos # (Auto) Baso # (Auto) Abs Immat Gran (auto) Absolute Neuts (auto) Absolute Nucleated RBC Nucleated RBC % (auto) Anion Gap Estim Creat Clear Calc Estimated GFR POC Glucose 202 H Random Glucose Lactic Acid Calcium Total Bilirubin Direct Bilirubin AST ALT Alkaline Phosphatase Troponin I High Sens Total Protein Albumin Lipase Urine Color YELLOW Urine Appearance HAZY Urine pH 6.0 Ur Specific [place] 1.025 Urine Protein TRACE Urine Glucose (UA) NEG Urine Ketones 15 Urine Blood NEG Urine Nitrite NEG Ur Leukocyte Esterase 1+ H Urine RBC 0 Urine WBC 5-9 H Ur Squamous Epith Cells 1+ Urine Bacteria TRACE Urine Mucus 1+ COVID-19 (FLOR) COVID-19 Clin Com Imaging Radiologist's Impressions: Impressions Chest X-Ray 04/03/21 08:09 IMPRESSION: No acute cardiopulmonary process seen. Head CT 04/03/21 08:09 IMPRESSION: No new intracranial pathology compared to 0 03/28 2021. No interval hemorrhagic transformation of right and left VIDEO SYSTEMS ENGINEER territory infarcts. Assessment and Plan (1) Encephalopathy: Status: Acute 65-year-old female history of diabetes, restrictive lung disease, hypertension, h/o CVA, recent admission for UTI and encephalopathy and brain MRI showing acute infarcts who was brought to the emergency department with confusion and hallucination. Encephalopathy Does not appear to be secondary to UTI given improvement in urinalysis and treatment with appropriate antibiotics No leukocytosis or fever to suggest other infectious etiology Normal renal function, electrolytes and liver function. Brain CT with no acute pathology, no focal neuro deficits on exam. Possible LBD/FTD vs psychiatric. Referred for neuropsychiatric testing, unclear if this was done. Has had med related encephaolpathy in the past as well. -CTA given abnormal MRI on last admit and MRA with motion degradation -neurology consult -titrate down baclofen (previous concern over withdrawal, so will decrease dose) -b12, folate, tsh -urine and blood cultures pending DM -continue lantus at lower dose -SSI, POCs h/o CVA -continue aspirin, statin Irritable bowel -continue Bentyl morbid obesity BMI 41.3 The remainder of med rec is pending. dvt ppx - lovenox code status - presumed full code Attending: dr. Marie Quality Stroke Does the patient have a stroke diagnosis?: No VTE Prior VTE?: No VTE Risk Level:: Medical - moderate - high VTE Device Contraindication: Treatment Not Indicated VTE Drug Contraindication: N/A - Med Ordered
--- NOTE | 2021-04-03 13:00 | PM.EVENT ---
Event Note Date of Service: 04/03/21 Event Note: the patient was seen and evaluated with MARCUS Rodriguez. I agree with her note, assessment and plan with the following. In summary, a 65 years old female brought to the emergency you to confusion. She has recurrent ED visits for similar problem. Today her called EMS for reporting hallucinations in confusion. On examination the patient is oriented of herself but not to time or place. She is moving her hands around trying to reach out for subjects she seeing. Confusion, hallucinations Could be secondary to medications, recent stroke, early dementia with psychosis CT head negative for any acute findings Review home medication and adjust per psychiatry recommendations To get psych evaluation Stroke No focal weakness noted Reported on MRI on the most recent admission To do CTA as MRA showed artifacts Start baby aspirin Atorvastatin Limited echo with bubble study Rest of evaluations by MARCUS note.
[2021-04-03 13:09] LABS: Glucose, Whole Blood 164 mg/dL (60-115)
[2021-04-03 13:09] LABS: Thyroid Stimulating Hormone 0.67 uIU/mL (0.32-4.0)
[2021-04-03] MEDS: Haloperidol Lactate 5 MG/ML VIAL 2.5 MG IM (13:19)
--- NOTE | 2021-04-03 15:44 | MHC.CM.PN ---
IMM 04/03/21, EMR REVIEWED PT ADMITTED W/AMS AFTER RECENTLY DISCHARGING FROM S3 W/AMS, CM MET W/PT AND WHO IS AT BEDSIDE, PT ABLE TO ANSWER QUESTIONS HOWEVER THEN BEGAN REACHING OUT AND PICKING SOMETHING IN AIR, PT IS A&O X2, PT IS INDEPENDENT W/CARE, HAS A WHEELED WALKER SHE DOES NOT USE AND WAS SENT HOME ON 03/30/21 W/[facility] FOR [facility], PT AND ARE PLEASED W/[facility] AND REPORTED HER NURSE CAME ON FRI/SAT AND COMPLETED INTAKE. PT'S REPORTS HE WAS UNAWARE OF ABX BEING SENT TO PHARMACY AND DIDN'T PICK IT UP AND FEELS THAT IS WHY SHE'S BACK, PT'S ASKED TO SPEAK W/HOSPITALIST HE WAS NOT HERE EARLIER WHEN PT WAS SEEN, HOSPITALIST TIGERED BY CM AND REPORTED SHE WOULD MEET W/FAMILY. D/C PLAN: HOME W/[facility]UMP OF [facility], SPOUSE FOR TRANSPORT PCP: ERICKSON SOLIMAN HCP: SPOUSE: LIBIA BRIDGES [phone], COPY ON FILE FROM PREVIOUS VISIT NO ALTERNATE
[2021-04-03 16:23] VITALS: BP 161/82; PULSE 89; RESP 18; TEMP 37.1; O2SAT 98
[2021-04-03] MEDS: Baclofen 10 MG TABLET 5 MG PO ×2 (17:03→21:11)
[2021-04-03] MEDS: Dicyclomine HCl 10 MG CAPSULE 20 MG PO ×2 (17:03→21:10)
[2021-04-03 17:10] LABS: Amphetamine Screen Urine Not Detected (Not Detect); Barbiturates, Urine Not Detected (Not Detect); Benzodiazepines Screen Urine Not Detected (Not Detect); Cannabinoid Screen Urine Not Detected (Not Detect); Cocaine Screen Urine Not Detected (Not Detect); Opiate Screen Urine Not Detected (Not Detect); Phencyclidine Screen Urine Not Detected (Not Detect)
[2021-04-03] MEDS: Insulin Lispro 100 UNIT/ML 3 ML VIAL SUBCUT (17:55)
[2021-04-03] MEDS: 0.9 % Sodium Chloride Flush 3 ML SYRINGE IVFLUSH (18:19)
--- NOTE | 2021-04-03 19:48 | PC.NURSE ---
Pt appears more confused and agitated since arriving to the ed. Pt self dialoguing and reaching for inanimate objects. Pt yelling at staff to get out of her house, putting legs over side rail attempting to exit bed. Pt transferred out of bed to use beside commode. Her is at bedside. no apparent distress noted. She currently has a 1:1 sitter to maintain safety.
[2021-04-03 20:00] VITALS: BP 180/78; PULSE 96; RESP 18; TEMP 36.6; O2SAT 97
[2021-04-03] MEDS: Donepezil HCl 5 MG TABLET PO (21:10)
[2021-04-03] MEDS: Enoxaparin Sodium 40 MG/0.4 ML SYRINGE SUBCUT (21:10)
[2021-04-03] MEDS: Atorvastatin Calcium 20 MG TABLET PO (21:11)
[2021-04-03 21:12] LABS: Glucose, Whole Blood 164 mg/dL (60-115)
[2021-04-03 21:25] LABS: Glucose, Whole Blood 190 mg/dL (60-115)
--- NOTE | 2021-04-03 21:35 | PC.NURSE ---
#20 g angio to left forearm, wrapped with isabella and loosely with ghislaine wrap.
[2021-04-03 21:56] LABS: Glucose, Whole Blood 176 mg/dL (60-115)
[2021-04-03] MEDS: Insulin Glargine,Hum.rec.anlog 100 UNIT/ML 10 ML VIAL 30 UNIT SUBCUT (22:26)
[2021-04-03 23:48] VITALS: BP 151/56; PULSE 83; RESP 20; TEMP 36.3; O2SAT 98
[2021-04-04] VITALS (7 sets, daily range): BP systolic 133–155; BP diastolic 61–80; PULSE 75–100; RESP 18–20; TEMP 36–37.1; O2SAT 94–99; BMI 41.1
[2021-04-04 04:55] LABS: Hematocrit 38.5 % (37-47); Hemoglobin 12.8 g/dl (12.0-16.0); Mean Corpuscular HGB Conc 33.2 g/dl (31.0-35.0); Mean Corpuscular Hemoglobin 31.4 pg (27.0-33.0); Mean Corpuscular Volume 94.6 fL (80-98); Mean Platelet Volume 9.2 fL (9.4-12.3); Platelet Count 249 X10*3/uL (160-400); Red Blood Count 4.07 X10*6/uL (4.20-5.50); Red Cell Distribution Width 14.7 % (11.0-16.0); White Blood Count 9.6 X10*3/uL (4.8-10.8)
[2021-04-04 05:20] LABS: Anion Gap 16 (12-20); Blood Urea Nitrogen 11 mg/dL (9-16); Calcium 9.3 mg/dL (8.4-10.2); Carbon Dioxide 23 mmol/L (22-29); Chloride 110 mmol/L (96-108); Creatinine Clr Calc Pharmacy 86.3; Estimated Glomerular Filt Rate > 60; Glucose Random 160 mg/dL (60-115); Potassium 3.8 mmol/L (3.3-5.1); Sodium 145 mmol/L (135-145)
--- NOTE | 2021-04-04 06:38 | PC.NURSE ---
Admitted pt up from ED at 22:00. Pt alert and oriented only to self. 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 Pt reoriented to location, time, and situation. Pt is a 1-2 assist w/ ambulation, she has trouble walking due to visual disturbances. Pt bumped her arms into wilkins when being ambulated to the bathroom. Commode now at bedside. Pt called out to people who were not present. Telesitter in room. IV to left forearm remains wrapped loosely in ROCAEL wrap. MD aware of patient's mental status and ability to ambulate.
[2021-04-04 07:23] LABS: Glucose, Whole Blood 152 mg/dL (60-115)
[2021-04-04] MEDS: Dicyclomine HCl 10 MG CAPSULE 20 MG PO ×3 (07:49→21:06)
[2021-04-04] MEDS: Baclofen 10 MG TABLET 5 MG PO ×3 (07:50→21:06)
[2021-04-04] MEDS: Aspirin Enteric Coated 81 MG TABLET.DR PO (07:50)
[2021-04-04] MEDS: 0.9 % Sodium Chloride Flush 3 ML SYRINGE IVFLUSH ×2 (07:51→15:30)
[2021-04-04 09:20] LABS: Folate 19.6 ng/mL (> or = 4.0); Vitamin B12 > 2000 pg/mL (200-900)
[2021-04-04 11:05] LABS: Glucose, Whole Blood 244 mg/dL (60-115)
[2021-04-04] MEDS: Insulin Lispro 100 UNIT/ML 3 ML VIAL SUBCUT ×3 (11:13→21:05)
--- NOTE | 2021-04-04 11:54 | P.CDIC_ITS ---
CDI Concurrent Query Service Date: 04/04/21 Documentation Clarification: Please clarify if you are treating a proba ble/suspected/likely or confirmed: Toxic encephalopathy Metabolic encephalopathy Other and if known please specify or undetermined Provider Response: Metabolic Encephalopathy PLEASE DO NOT DELETE/MODIFY EXISTING CONTENT Additional information is needed in order to code to the highest accuracy and appropriate Severity of Illness (SOI). Please clarify the information noted below in your progress notes and discharge summary. Risk Factors/Clinical Indicators/Treatments patient confused, hallucinations, agitated on multiple medications. Does not appear 2nd to UTI has had medication encephalopathy in the past. CDS: Kim Ritchie CCS, CDIS Contact Number: [phone] Please Review the information above and exercise your independent professional judgment in responding to the query. If you concur, pleas document in the PROGRESS NOTES and DISCHARGE SUMMARY. If you do not agree with the query, please document in the query above. THIS QUERY IS PART OF THE PERMANENT MEDICAL RECORD
--- NOTE | 2021-04-04 12:20 | PM.NEUROCN ---
History of Present Illness Data of Consult Service Date: 04/04/21 Primary Care Provider: Chris Rodriguez MD 65 years old woman who I recently saw in [facility] I was asked to see again for confusion. 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 At that time I us for a MRI of brain to figure out if this was a vascular event or a reversible ischemic event. Apparently she had been falling but no seizure-like activity was noted. [facility] Past Medical History Medical History (Updated 04/04/21 @ 12:57 by Nadeem Melendez MD) Anxiety Asthma CHF (congestive heart failure) Diabetes Diabetic acetonemia Dyspnea on exertion Essential hypertension HTN (hypertension) Myalgia and myositis Neuropathy Nocturnal hypoxemia Obesity (BMI 30-39.9) Orthopnea Restrictive lung disease Type 2 diabetes mellitus with unspecified complications UTI (urinary tract infection) Family History Family History Father No problems noted. Mother Angina at rest Sister Lung cancer Colon cancer COPD (chronic obstructive pulmonary disease) Surgical History Surgical History History of appendectomy History of arthroscopy of both knees History of hysterectomy History of pancreatic surgery Social History Social History Household Members: Spouse Housing: House Do you presently have visiting nurse or other home services: No Unable to assess alcohol history related to: Refusing to respond Alcohol intake: unknown Patient Tobacco Use Status: Never used Tobacco e-Cigarette/Vaping Use: Never Used Second Hand Smoke Exposure: No Use of substances other than those prescribed or required for medical reasons: Refusing to respond Currently Displaying Signs/Symptoms of Drug Intoxication Withdrawal: No Advance Directives: Yes Advance Directives on File: Yes Advance Directives Date on File: 07/27/20 Do you have thoughts of harming others: None Do you have a plan to hurt others: No Plan Recently lost weight without trying: Unsure Patient : No : No Poor oral hygiene: No service: No Current occupational status: unemployed and disabled Current occupation: right handed Sexual orientation: Straight/Heterosexual Meds Allergies Allergy/AdvReac Type Severity Reaction Status Date / Time Sulfa (Sulfonamide Allergy Severe DIFFICULTY Verified 02/28/21 15:39 Antibiotics) BREATHING [SULFA (SULFONAMIDE ANTIBIOTICS)] cephalexin [From KEFLEX] Allergy Intermediate RASH,HIVES Verified 02/28/21 15:39 amoxicillin [AMOXICILLIN] Allergy Unknown DENIES Verified 02/28/21 15:39 THIS ALLERGY 03/28/2018 penicillin V Allergy Unknown Unknown Verified 02/28/21 15:39 sumatriptan [From IMITREX] AdvReac Severe HEART Verified 02/28/21 15:39 PALPITATIONS topiramate [From TOPAMAX] AdvReac Severe AGITATION Verified 02/28/21 15:39 Active Medications: Current Medications Generic Name Dose Route Start Last Admin Trade Name Freq PRN Reason Stop Dose Admin Acetaminophen 650 mg 04/03/21 17:26 Acetaminophen 325 Mg Tablet PO Q6H PRN Pain, Mild (Pain Scale 1-3) Aspirin 81 mg 04/04/21 09:00 04/04/21 07:50 Aspirin Enteric Coated 81 Mg Tablet.Dr PO 81 mg DAILY FRANCHESKA Administration Atorvastatin Calcium 20 mg 04/03/21 21:00 04/03/21 21:11 Atorvastatin Calcium 20 Mg Tablet PO 20 mg BEDTIME FRANCHESKA Administration Baclofen 5 mg 04/03/21 15:00 04/04/21 07:50 Baclofen 10 Mg Tablet PO 5 mg TID FRANCHESKA Administration Cefuroxime Axetil 250 mg 04/04/21 10:00 04/04/21 10:53 Cefuroxime Axetil 250 Mg Tablet PO 250 mg Q12H FRANCHESKA Administration Dicyclomine HCl 20 mg 04/03/21 15:00 04/04/21 07:49 Dicyclomine Hcl 10 Mg Capsule PO 20 mg TID FRANCHESKA Administration Docusate Sodium 100 mg 04/03/21 17:26 Docusate Sodium 100 Mg Capsule PO DAILY PRN Constipation Donepezil HCl 5 mg 04/03/21 21:00 04/03/21 21:10 Donepezil Hcl 5 Mg Tablet PO 5 mg BEDTIME FRANCHESKA Administration Enoxaparin Sodium 40 mg 04/03/21 20:00 04/03/21 21:10 Enoxaparin Sodium 40 Mg/0.4 Ml Syringe SUBCUT 40 mg Q24H FRANCHESKA Administration Insulin Glargine 30 unit 04/03/21 21:00 04/03/21 22:26 Insulin Glargine,Hum.Rec.Anlog 100 Unit/Ml 10 Ml Vial SUBCUT 30 unit BEDTIME [facility] Administration Insulin Human Lispro 0 unit 04/03/21 17:26 04/04/21 11:13 Insulin Lispro 100 Unit/Ml 3 Ml Vial SUBCUT 4 unit QIDACHS [facility] Administration Protocol Ondansetron HCl 4 mg 04/03/21 17:26 Ondansetron Hcl 4 Mg/2 Ml Vial IVPUSH Q8H PRN Nausea and Vomiting Sodium Chloride 3 ml 04/03/21 17:26 04/04/21 07:51 0.9 % Sodium Chloride Flush 3 Ml Syringe IVFLUSH 3 ml QSHIFT [facility] Administration Home Medications Medication Instructions Recorded Confirmed Last Taken Type acetaminophen 650 mg 650 mg PO Q8H PRN 12/08/20 04/03/21 Unknown History tablet,extended release (Tylenol Arthritis Pain) meclizine 25 mg tablet 25 mg PO BID PRN tab 12/08/20 03/28/21 Unknown History dicyclomine 20 mg tablet 1 tab PO TID 12/16/20 04/03/21 Unknown History quetiapine 50 mg tablet 1 tab PO BEDTIME 12/16/20 03/28/21 Unknown History atorvastatin 20 mg tablet 20 mg PO BEDTIME 03/28/21 04/03/21 Unknown History donepezil 5 mg tablet 5 mg PO BEDTIME 03/28/21 04/03/21 Unknown History insulin lispro 100 unit/mL 2 - 14 unit SUBCUT TIDAC 03/28/21 04/03/21 Unknown History subcutaneous pen (Humalog KwikPen (U-100) Insulin) multivitamin 1 tab PO DAILY 03/28/21 03/28/21 Unknown History valsartan 80 mg tablet 80 mg PO DAILY 03/28/21 03/28/21 Unknown History Physical Exam Vital Signs: Vital Signs: Last Vital Signs Temp 98.5 F 04/04/21 11:05 Pulse 100 04/04/21 11:05 Resp 18 04/04/21 11:05 BP 133/65 04/04/21 11:05 Pulse Ox 97 04/04/21 11:05 Body Mass Index 41.1 Neuro: Other: She was alert and awake with normal spontaneity of speech fluency and comprehension. She was cortically blind looking around making a conversation stating that she could smell the perfume. Close to her face she had minimal vision of finger counting. Face was symmetrical. There was no obvious focal arm or leg weakness. Results Labs CBC & Chem 7: 04/04/21 04:12 04/04/21 04:12 Labs: Short CBC 04/04/21 Range/Units 04:12 WBC 9.6 (4.8-10.8) X10*3/uL Hgb 12.8 (12.0-16.0) g/dl Hct 38.5 (37-47) % Plt Count 249 (160-400) X10*3/uL BMP 04/04/21 04:12 Sodium 145 Potassium 3.8 Chloride 110 H Carbon Dioxide 23 BUN 11 Creatinine 0.69 Calcium 9.3 Liver Function 04/03/21 Range/Units 08:43 Total Bilirubin 0.5 (0.0-1.0) mg/dL Direct Bilirubin 0.2 (0.0-0.5) mg/dL AST 16 (5-31) U/L ALT 19 (0-31) U/L Alkaline Phosphatase 65 (39-117) U/L Albumin 4.5 (3.5-5.0) g/dL Her MRI of brain revealed bilateral occipital subacute ischemic infarctions. CTA of brain and neck revealed significant intracranial atherosclerotic disease affecting both anterior posterior circulation. Microbiology Microbiology Results: Microbiology 04/03/21 08:47 Blood - Venous Blood Culture - Preliminary No growth after 24 hours. 04/03/21 08:43 Blood - Venous Blood Culture - Preliminary No growth after 24 hours. 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 Unfortunately there was no treatment for this condition. Mainstay of management is family education patient education and proper placement. She would not be able to take care of herself and at this point probably should be placed or should have some kind of constant supervisory help at home. As far as stroke prevention is concerned, anti-platelet agent blood pressure control and statins are recommended. Procedures Date of Service Date of Service: 04/04/21
--- NOTE | 2021-04-04 12:50 | HO.PM.IMPN ---
Subjective Subjective Date of Service: 04/04/21 Interval History: the patient was seen and evaluated this morning Laying in bed, feels comfortable Haldol IV was used overnight to control her symptoms of agitation and anxiety Mentation has improved overall but still mildly confused at the bedside believe the patient improved since yesterday Denies any fever, chills or shortness of breath No reported other overnight events. Systemic review: No fever, chills or weakness No chest pain, palpitation No shortness of breath or coughing No abdominal pain, nausea or vomiting No urinary symptoms No reported wounds Physical Exam Vital Signs: Vital Signs: Last Vital Signs Temp 98.5 F 04/04/21 11:05 Pulse 100 04/04/21 11:05 Resp 18 04/04/21 11:05 BP 133/65 04/04/21 11:05 Pulse Ox 97 04/04/21 11:05 Body Mass Index 41.1 Const: Other: Constitutional : Alert, not in distress Neck : Normal inspection, Supple Cardiovascular : RRR, S1 S2, no lower extremity edema Respiratory : Good bilateral air entry, no crackles, wheezes or rhonchi Gastrointestinal: soft, lax, Normal bowel sounds, Non tender Skin : Warm/Dry, No rash Neurological : Alert & oriented x3, No focal deficit Objective Data Current Medications Generic Name Dose Route Start Last Admin Trade Name Marcelinoq PRN Reason Stop Dose Admin Acetaminophen 650 mg 04/03/21 17:26 Acetaminophen 325 Mg Tablet PO Q6H PRN Pain, Mild (Pain Scale 1-3) Aspirin 81 mg 04/04/21 09:00 04/04/21 07:50 Aspirin Enteric Coated 81 Mg Tablet. PO 81 mg DAILY FRANCHESKA Administration Atorvastatin Calcium 20 mg 04/03/21 21:00 04/03/21 21:11 Atorvastatin Calcium 20 Mg Tablet PO 20 mg BEDTIME FRANCHESKA Administration Baclofen 5 mg 04/03/21 15:00 04/04/21 07:50 Baclofen 10 Mg Tablet PO 5 mg TID FRANCHESKA Administration Cefuroxime Axetil 250 mg 04/04/21 10:00 04/04/21 10:53 Cefuroxime Axetil 250 Mg Tablet PO 250 mg Q12H FRANCHESKA Administration Dicyclomine HCl 20 mg 04/03/21 15:00 04/04/21 07:49 Dicyclomine Hcl 10 Mg Capsule PO 20 mg TID FRANCHESKA Administration Docusate Sodium 100 mg 04/03/21 17:26 Docusate Sodium 100 Mg Capsule PO DAILY PRN Constipation Donepezil HCl 5 mg 04/03/21 21:00 04/03/21 21:10 Donepezil Hcl 5 Mg Tablet PO 5 mg BEDTIME FRANCHESKA Administration Enoxaparin Sodium 40 mg 04/03/21 20:00 04/03/21 21:10 Enoxaparin Sodium 40 Mg/0.4 Ml Syringe SUBCUT 40 mg Q24H FRANCHESKA Administration Insulin Glargine 30 unit 04/03/21 21:00 04/03/21 22:26 Insulin Glargine,Hum.Rec.Anlog 100 Unit/Ml 10 Ml Vial SUBCUT 30 unit BEDTIME FRANCHESKA Administration Insulin Human Lispro 0 unit 04/03/21 17:26 04/04/21 11:13 Insulin Lispro 100 Unit/Ml 3 Ml Vial SUBCUT 4 unit QIDACHS [facility] Administration Protocol Ondansetron HCl 4 mg 04/03/21 17:26 Ondansetron Hcl 4 Mg/2 Ml Vial IVPUSH Q8H PRN Nausea and Vomiting Sodium Chloride 3 ml 04/03/21 17:26 04/04/21 07:51 0.9 % Sodium Chloride Flush 3 Ml Syringe IVFLUSH 3 ml QSHIFT [facility] Administration Labs CBC & Chem 7: 04/04/21 04:12 04/04/21 04:12 Labs: Laboratory Results - last 24 hr 04/03/21 04/03/21 04/03/21 08:43 08:43 13:05 MCV MCH MCHC RDW Plt Count MPV Absolute Nucleated RBC Nucleated RBC % (auto) Anion Gap Estim Creat Clear Calc Estimated GFR POC Glucose 164 H Random Glucose Calcium Vitamin B12 > 2000 H Folate 19.6 TSH 0.67 Urine Opiates Screen Ur Barbiturates Screen Ur Phencyclidine Scrn Ur Amphetamines Screen U Benzodiazepines Scrn Urine Cocaine Screen U Marijuana (THC) Screen 04/03/21 04/03/21 04/03/21 16:17 17:10 21:20 MCV MCH MCHC RDW Plt Count MPV Absolute Nucleated RBC Nucleated RBC % (auto) Anion Gap Estim Creat Clear Calc Estimated GFR POC Glucose 164 H 190 H Random Glucose Calcium Vitamin B12 Folate TSH Urine Opiates Screen Not Detected Ur Barbiturates Screen Not Detected Ur Phencyclidine Scrn Not Detected Ur Amphetamines Screen Not Detected U Benzodiazepines Scrn Not Detected Urine Cocaine Screen Not Detected U Marijuana (THC) Screen Not Detected 04/03/21 04/04/21 04/04/21 21:52 04:12 04:12 MCV 94.6 MCH 31.4 MCHC 33.2 RDW 14.7 Plt Count 249 MPV 9.2 L Absolute Nucleated RBC 0.000 Nucleated RBC % (auto) 0.0 Anion Gap 16 Estim Creat Clear Calc 86.3 Estimated GFR > 60 POC Glucose 176 H Random Glucose 160 H D Calcium 9.3 Vitamin B12 Folate TSH Urine Opiates Screen Ur Barbiturates Screen Ur Phencyclidine Scrn Ur Amphetamines Screen U Benzodiazepines Scrn Urine Cocaine Screen U Marijuana (THC) Screen 04/04/21 04/04/21 07:05 10:55 MCV MCH MCHC RDW Plt Count MPV Absolute Nucleated RBC Nucleated RBC % (auto) Anion Gap Estim Creat Clear Calc Estimated GFR POC Glucose 152 H 244 H Random Glucose Calcium Vitamin B12 Folate TSH Urine Opiates Screen Ur Barbiturates Screen Ur Phencyclidine Scrn Ur Amphetamines Screen U Benzodiazepines Scrn Urine Cocaine Screen U Marijuana (THC) Screen Microbiology Microbiology Results: Microbiology 04/03/21 08:47 Blood Culture - Preliminary Blood - Venous No growth after 24 hours. 04/03/21 08:43 Blood Culture - Preliminary Blood - Venous No growth after 24 hours. 04/03/21 00:00 Urine Culture - Final Urine clean catch - Urine crain top Assessment and Plan (1) Acute metabolic encephalopathy: Status: Acute (2) Stroke due to stenosis of posterior cerebral artery: Status: Acute Assessment and Plan: 65-year-old female history of diabetes, restrictive lung disease, hypertension, h/o CVA, recent admission for UTI and encephalopathy and brain MRI showing acute infarcts who was brought to the emergency department with confusion and hallucination. Metabolic Encephalopathy Less likely secondary to UTI, to finish Seems she has underlying multiple small strokes Brain CT with no acute pathology, no focal neuro deficits on exam. Possible LBD/FTD dementia vs psychiatric Referred for neuropsychiatric testing, unclear if this was done. Has had med related encephaolpathy in the past as well. b12, folate, tsh urine and blood cultures pending Recent Stroke Notice on most recent admission but MRA showed artifact CTA showing multiple areas of narrowing and stenosis on the posterior cervical MRI previous admission showed acute infarct within left greater than right [facility] territory neurology consult pending continue aspirin, high-dose statin DM continue lantus at lower dose SSI, POCs h/o CVA continue aspirin, statin Irritable bowel continue Bentyl morbid obesity BMI 41.3 Advised to lose weight dvt ppx lovenox Quality Stroke Does the patient have a stroke diagnosis?: No VTE Prior VTE?: No VTE Risk Level:: Medical - moderate - high VTE Device Contraindication: Treatment Not Indicated VTE Drug Contraindication: N/A - Med Ordered
--- NOTE | 2021-04-04 14:53 | MHC.CM.PN ---
per rounds possible dc for pt on thursday 04/05 plan remains home with hvns
[2021-04-04 16:02] LABS: Glucose, Whole Blood 238 mg/dL (60-115)
[2021-04-04 20:09] LABS: Glucose, Whole Blood 257 mg/dL (60-115)
[2021-04-04] MEDS: Enoxaparin Sodium 40 MG/0.4 ML SYRINGE SUBCUT (21:04)
[2021-04-04] MEDS: Insulin Glargine,Hum.rec.anlog 100 UNIT/ML 10 ML VIAL 30 UNIT SUBCUT (21:05)
[2021-04-04] MEDS: Donepezil HCl 5 MG TABLET PO (21:06)
[2021-04-04] MEDS: Atorvastatin Calcium 80 MG TABLET PO (21:06)
[2021-04-05] MEDS: 0.9 % Sodium Chloride Flush 3 ML SYRINGE IVFLUSH ×2 (00:11→07:35)
[2021-04-05 03:28] VITALS: BP 139/53; PULSE 91; RESP 18; TEMP 36.7; O2SAT 94
[2021-04-05 07:08] VITALS: BP 162/57; PULSE 87; RESP 18; TEMP 36.8; O2SAT 97
[2021-04-05 07:26] LABS: Glucose, Whole Blood 235 mg/dL (60-115)
[2021-04-05] MEDS: Dicyclomine HCl 10 MG CAPSULE 20 MG PO (07:35)
[2021-04-05] MEDS: Insulin Lispro 100 UNIT/ML 3 ML VIAL SUBCUT ×2 (07:35→11:39)
[2021-04-05] MEDS: Baclofen 10 MG TABLET 5 MG PO (07:35)
[2021-04-05] MEDS: Aspirin Enteric Coated 81 MG TABLET.DR PO (07:35)
--- NOTE | 2021-04-05 10:30 | P.DS_ITS ---
DS: Providers Provider Date of Service: 04/05/21 Date of admission: 04/03/21 12:56 Primary care physician: Chris Rodriguez MD Consults: 04/03/21 17:26 Consult to Neurology Routine Consulting Provider: [facility] Reason for consultation: AMS; recent admit for same Has provider been notified: No DS: Diagnosis Discharge Diagnosis (1) Acute metabolic encephalopathy: Status: Acute (2) Cortical blindness: Status: Acute DS: Medications Discharge Medications Home Medications: Home Medications Medication Instructions Recorded Confirmed acetaminophen 650 mg 650 mg PO Q8H PRN 12/08/20 04/03/21 tablet,extended release (Tylenol Arthritis Pain) dicyclomine 20 mg tablet 1 tab PO TID 12/16/20 04/03/21 donepezil 5 mg tablet 5 mg PO BEDTIME 03/28/21 04/03/21 insulin lispro 100 unit/mL 2 - 14 unit SUBCUT TIDAC 03/28/21 04/03/21 subcutaneous pen (Humalog KwikPen (U-100) Insulin) valsartan 80 mg tablet 80 mg PO DAILY 03/28/21 04/04/21 multivitamin 1 tab PO DAILY 04/04/21 04/04/21 Previous Rx's Medication Instructions Recorded baclofen 10 mg tablet 10 mg PO TID 30 Days #90 tab 08/04/20 insulin glargine 100 unit/mL (3 40 unit SUBCUT BEDTIME 30 Days #10 08/04/20 mL) subcutaneous pen (Lantus ml Solostar U-100 Insulin) oxybutynin chloride 15 mg 15 mg PO DAILY 30 Days #30 tab 08/04/20 tablet,extended release 24 hr pantoprazole 40 mg tablet,delayed 40 mg PO BID@0630,1630 30 Days #30 08/04/20 release tab aspirin 81 mg tablet,delayed 81 mg PO DAILY #90 tab 02/28/21 release (Adult Low Dose Aspirin) metoprolol succinate 25 mg 25 mg PO DAILY 30 Days #30 tab 02/28/21 tablet,extended release 24 hr atorvastatin 80 mg tablet 80 mg PO BEDTIME 30 Days #30 tab 04/05/21 cefuroxime axetil 250 mg tablet 250 mg PO Q12H 4 Days #8 tab 04/05/21 quetiapine 50 mg tablet 25 mg PO BEDTIME #0 tab 04/05/21 DS: Summary Hospital Course Hospital Course: Admission note HPI This is a 65-year-old female was brought to the emergency department today due to confusion.? Patient was admitted here at [facility] from March 28 to March 31 secondary to confusion.? At that time brain MRI did show acute infarcts within the left greater than right [employer] territory.? Symptoms were also thought to be secondary to UTI.? Her confusion improved and she was able to be discharged home on March 31.? In the emergency department she appears to be hallucinating, frequently reaching out to grab ?little statues .? She is able to tell me her name, the year and that she is in the emergency room because of a UTI.? Although she tells me she is not doing well she is unable to verbalize any specific complaints. She denies any headache, fever, chills, abdominal pain, dysuria.? Workup today in the emergency department has been thus far unremark able.? Brain CT shows no acute changes.? Patient is afebrile, lab work showing no leukocytosis or electrolyte abnormalities.? Due to confusion? admission was requested. Of note patient had inpatient admission in June 2020 for agitation and confusion which required ICU level of care.? At that time her symptoms were thought to be secondary to medication and possible baclofen withdrawal.? Her sym ptoms improved with medication adjustment.? She was admitted to in July 2020 and at that time frontotemporal dementia or Lewy body dementia was discussed.? After that admission she was referred for neuropsych testing.? It is unclear if this was done. Hospital course For evaluation of metabolic encephalopathy. Urine infection was treated which she did not finish antibiotic so she was covered with Ceftin. MRI from previous admission showed multiple foci eyes of stroke within left greater than right [employer]RATOR territory. CTA done this admission showed multiple areas of narrowing and stenosis on the posterior cerebral artery. Evaluated by Neurology team who suggested baby aspirin, statin and blood pressure control. Her mentation improved back to baseline and she was able to participate with physical and occupational therapies. To be discharged home on 2 extra days of Ceftin To increase atorvastatin to 80 mg daily To start amlodipine 5 mg daily for blood pressure control Time Spent with Patient Time attestation: Total time spent providing and/or coordinating discharge services: Discharge coordination time: Greater than 30 minutes Quality: Stroke Does the patient have a stroke diagnosis?: No Physical Exam Vital Signs: Vital Signs: Last Vital Signs Temp 98.2 F 04/05/21 07:08 Pulse 87 04/05/21 07:08 Resp 18 04/05/21 07:08 BP 162/57 H 04/05/21 07:08 Pulse Ox 97 04/05/21 07:08 Body Mass Index 41.1 Const: Other: Constitutional : Alert, not in distress Neck : Normal inspection, Supple Cardiovascular : RRR, S1 S2, no lower extremity edema Respiratory : Good bilateral air entry, no crackles, wheezes or rhonchi Gastrointestinal: soft, lax, Normal bowel sounds, Non tender Skin : Warm/Dry, No rash Neurological : Alert & oriented x3, No focal deficit DS: Data Data Completed and Pending Completed studies during hospitalization [Text1]: Procedures Drainage of Spinal Canal, Percutaneous Approach, Diagnostic (06/23/20) Fluoroscopy of Spinal Cord (06/23/20) Labs on day of discharge: Laboratory Results - last 24 hr 04/04/21 04/04/21 04/04/21 10:55 15:55 20:04 POC Glucose 244 H 238 H 257 H 04/05/21 07:10 POC Glucose 235 H Preliminary micro results at discharge 04/03/21 08:47 Blood Culture - Preliminary Blood - Venous No growth after 24 hours. 04/03/21 08:43 Blood Culture - Preliminary Blood - Venous No growth after [address] scan - head: Radiologist's impression: ITS Impressions Chest X-Ray 04/03/21 08:09 IMPRESSION: No acute cardiopulmonary process seen. Head CT 04/03/21 08:09 IMPRESSION: No new intracranial pathology compared to 0 03/28 2021. No interval hemorrhagic transformation of right and left [employer] territory infarcts. Head CTA 04/03/21 14:35 IMPRESSION: 1. Vascular findings: 1. Mild-moderate segmental stenosis of the basilar artery. 2. Findings suspicious for moderate focal stenosis of the posterior cerebral artery at the P1 P2 junction. 3. High-grade segmental stenosis of the proximal A1 segment of the left anterior cerebral artery. 4. Moderate segmental stenosis of the cavernous portions of the internal carotid arteries. 5. The above findings may represent intracranial atherosclerosis. No definitive thromboembolus in situ identified. Nonvascular findings: 1. Partially visualized involving infarcts within the parasagittal left and right occipital lobes. No gross intracranial hemorrhage. Discharge Plan Discharge Patient Disposition: Home Health Service Discharge Diagnosis: Metabolic encephalopathy Referrals: Chris Rodriguez MD [Primary Care Provider] - 04/07/21 9:20 am (You have a primary care follow up appointment on April 07 at 9:20 am. Please call your doctor's office if you need to reschedule.) Discharge Medications: New cefuroxime axetil 250 mg Tablet 250 mg PO Q12H 4 Days Qty: 8 RF: 0 atorvastatin 80 mg Tablet 80 mg PO BEDTIME 30 Days Qty: 30 RF: 0 Continued baclofen 10 mg Tablet 10 mg PO TID 30 Days Qty: 90 RF: 0 oxybutynin chloride 15 mg Tablet Extended Release 24hr 15 mg PO DAILY 30 Days Qty: 30 RF: 0 pantoprazole 40 mg tablet,delayed release (DR/EC) 40 mg PO BID@0630,1630 30 Days Qty: 30 RF: 0 Lantus Solostar U-100 Insulin 100 unit/mL (3 mL) insulin pen 40 unit subcut BEDTIME 30 Days Qty: 10 RF: 0 dicyclomine 20 mg tablet 1 tab PO TID RF: 0 valsartan 80 mg tablet 80 mg PO DAILY RF: 0 insulin lispro [Humalog KwikPen Insulin] 100 unit/mL insulin pen 2 - 14 unit subcut TIDAC RF: 0 donepezil 5 mg tablet 5 mg PO BEDTIME RF: 0 multivitamin Tablet 1 tab PO DAILY RF: 0 acetaminophen [Tylenol Arthritis Pain] 650 mg tablet extended release 650 mg PO Q8H PRN (Reason: Pain) RF: 0 aspirin [Adult Low Dose Aspirin] 81 mg tablet,delayed release (DR/EC) 81 mg PO DAILY Qty: 90 RF: 1 metoprolol succinate 25 mg tablet extended release 24 hr 25 mg PO DAILY 30 Days Qty: 30 RF: 5 Changed quetiapine 50 mg tablet 25 mg PO BEDTIME Qty: 0 RF: 0 Discontinued atorvastatin 20 mg tablet 20 mg PO BEDTIME RF: 0 levofloxacin 250 mg tablet 250 mg PO DAILY Qty: 3 RF: 0 Discharge Orders: Discharge Order (Routine); Ordered 04/05/21 Ordered By: Angela Mcneil Diet: advance to usual diet Activity on Discharge: As tolerated Stand Alone Forms: Patient Portal Discharge page Care Plan Goals: Read below Health Concerns: Read below Plan of Treatment: You were admitted to the hospital for evaluation of altered mentation. For images for your brain were consistent with narrowing in the arteries and recent stroke. You were evaluated by neurology team who recommended continue baby aspirin and cholesterol medication Assessment: Continue Ceftin for 2 more days Increase atorvastatin to 80 mg daily Decrease Seroquel to 25 mg To follow-up outpatient with your PCP and neurologist
[2021-04-05 10:54] LABS: Glucose, Whole Blood 272 mg/dL (60-115)
[2021-04-05 11:21] VITALS: BP 130/64; PULSE 90; RESP 18; TEMP 36.3; O2SAT 97
--- NOTE | 2021-04-05 11:21 | MHC.CM.PN ---
pt dcd today o transport hvns notified of dc
--- NOTE | 2021-04-05 17:26 | CA_ITS ---
Transthoracic Echocardiogram Patient (Last, First, Middle): Natalia Nichole, Gender: Female Date of : 1955 Age: 65 Procedure Date: 04/04/2021 Procedure Type: Transthoracic Echocardiogram Location: [facility] [place] Height: 152.4 cm Weight: 95.26 kg BSA: 1.91 m2 Heart Rate: bpm BP: 144 / 80 mmHg Prosthetic Assistant: Referring MD: Antonette VELAZQUEZ Symptoms: confusion, h/o cva, please do Bubble study Conclusions: - Limited echo with bubbles. - Normal left ventricular size and systolic function. - Normal right ventricular cavity size and systolic function. - There is no evidence of interatrial shunt by agitated saline. Findings Left Ventricle Normal left ventricular size and systolic function. The visually estimated ejection fraction is between 55-60%. There is no evidence of regional wall motion abnormalities. Abnormal diastolic function is noted. Spectral Doppler is indicative of an impaired relaxation filling pattern. E/E prime ratio is between 8 and 15 consistent with indeterminate filling pressures. Right Ventricle Normal right ventricular cavity size and systolic function. Atria There is no evidence of interatrial shunt by agitated saline. Prior Study Comparison No significant change compared to prior study. Negative bubble study. Updated in Other Vendor System with Status of Final Jose Otero MD electronically signed on 04/05/2021 3:01:01 PM with status of Final
== END 2021-04-05 12:44 | disposition home health service (06) | DRG 689 ==
LOC: HO.ED 07:57 → HO.EDOVER 13:08 → HO.IMC 20:05
PROVIDERS: Admitting Provider Physician Assistant Medical; Emergency Provider Student in an Organized Health Care Education/Training Program; PCP Internal Medicine; Visit Provider Student in an Organized Health Care Education/Training Program
DX: N39.0 Urinary tract infection, site not specified (principal); G93.41 Metabolic encephalopathy; Z68.41 Body mass index [BMI] 40.0-44.9, adult; Z20.822 Contact with and (suspected) exposure to COVID-19; E11.9 Type 2 diabetes mellitus without complications; H47.612 Cortical blindness, left side of brain; H47.611 Cortical blindness, right side of brain; K58.9 Irritable bowel syndrome, unspecified; I69.398 Other sequelae of cerebral infarction; Z86.73 Personal history of transient ischemic attack (TIA), and cerebral infarction without residual deficits; E66.01 Morbid (severe) obesity due to excess calories; Z88.0 Allergy status to penicillin; Z79.4 Long term (current) use of insulin; Z79.82 Long term (current) use of aspirin; Z79.899 Other long term (current) drug therapy
CPT/HCPCS: 36415; 70450; 70496; 71046; 80048; 80076; 80307; 81001; 82607; 82746; 82947; 83605; 83690; 84443; 84484; 85025; 85027; 87040; 87086; 87635; 93005; 93308; 97162; 97166; 97535; 99284; J1650

== ENCOUNTER 2021-04-26 13:30 | Outpatient (REF) | payer MEDICARE, SELFPAY ==
[2021-04-26 14:20] LABS: Glucose Urine UA 500 MG/DL (NEG); Leukocyte Esterase Urine 2+ (NEG); Nitrite Urine NEG (NEG); Urine Blood TRACE (NEG); Urine Ketones NEG (NEG); Urine Protein NEG (NEG-TRACE)
[2021-04-26 14:23] LABS: Appearance Urine HAZY; Color Urine YELLOW
[2021-04-26 14:46] LABS: Bacteria Urine TRACE /LPF; RBC Urine 0-2 /HPF (0); Squamous Epithelial Cell Urine 2+ /LPF
== END 2021-04-26 13:31 | disposition home or self-care (01) ==
LOC: HO.LNP 13:30
PROVIDERS: Visit Provider Internal Medicine
DX: R41.82 Altered mental status, unspecified (principal)
CPT/HCPCS: 81001

== ENCOUNTER 2021-05-03 14:17 | Inpatient (IN) | payer MEDICARE, OTHER, SELFPAY ==
--- NOTE | ~2021-05-03 | XR_ITS ---
EXAMINATION: XR HUMERUS, RIGHT CLINICAL INFORMATION: Pain. COMPARISON: Radiographs right shoulder 07/12/2020 TECHNIQUE: The right humerus is imaged in 3 views. FINDINGS: The right humerus shows no fracture or destructive process. There is no periostitis. Distally, there is mild spurring at the medial epicondyle and small spur involving the olecranon near the triceps insertion. There are no elbow joint erosive changes demonstrated. The right shoulder again demonstrates chronic posttraumatic changes with acromioclavicular separation. There is elevation of the distal clavicle by 1.7 cm. Again, there is tapering of the distal clavicle and either old ossific fragments or heterotopic bone in the region of the distal clavicle and coracoclavicular ligament. There is no acute fracture or destructive process. Calcific tendinosis is again seen with oval and round calcifications adjacent to the greater tuberosity, also present on prior imaging. XR/XR humerus RT IMPRESSION: 1. Chronic post traumatic changes right shoulder with acromioclavicular separation and calcific tendinosis similar to prior radiographs 07/12/2020. 2. Spurring distal humerus and medial epicondyle. Small spur olecranon.
[2021-05-03 14:28] VITALS: BP 137/55; PULSE 76; RESP 16; TEMP 36.9; O2SAT 98; BMI 32.1
[2021-05-03 15:18] LABS: MANUAL DIFF FLAG NO
[2021-05-03 15:22] LABS: Basophils Absolute Auto 0.1 X10*3/uL (0.0-0.2); Basophils Percent Auto 0.5 % (0-2); Eosinophils Absolute Auto 0.4 X10*3/uL (0.0-0.4); Eosinophils Percent Auto 4.2 % (0-4); Hematocrit 39.5 % (37-47); Hemoglobin 12.9 g/dl (12.0-16.0); Imm Gran Abs Auto 0.05 X10*3/uL (0.00-0.03); Imm Gran Pct Auto 0.5 % (0.0-0.4); Lymphocytes Absolute Auto 3.4 X10*3/uL (1.2-4.9); Lymphocytes Percent Auto 32.5 % (20-40); Mean Corpuscular HGB Conc 32.7 g/dl (31.0-35.0); Mean Corpuscular Hemoglobin 30.9 pg (27.0-33.0); Mean Corpuscular Volume 94.7 fL (80-98); Mean Platelet Volume 9.7 fL (9.4-12.3); Monocytes Absolute Auto 0.9 X10*3/uL (0.1-1.2); Monocytes Percent Auto 8.5 % (2-11); Neutrophils Absolute Auto 5.6 X10*3/uL (2.0-8.3); Neutrophils Percent Auto 53.8 % (45-73); Platelet Count 267 X10*3/uL (160-400); Red Blood Count 4.17 X10*6/uL (4.20-5.50); Red Cell Distribution Width 13.6 % (11.0-16.0); White Blood Count 10.4 X10*3/uL (4.8-10.8)
[2021-05-03 15:34] LABS: Anion Gap 13 (12-20); Blood Urea Nitrogen 13 mg/dL (9-16); Calcium 9.5 mg/dL (8.4-10.2); Carbon Dioxide 23 mmol/L (22-29); Chloride 111 mmol/L (96-108); Creatinine Clr Calc Pharmacy 78.4; Estimated Glomerular Filt Rate > 60; Glucose Random 99 mg/dL (60-115); Potassium 3.9 mmol/L (3.3-5.1); Sodium 143 mmol/L (135-145)
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
--- NOTE | 2021-05-03 17:14 | PC.NURSE ---
Jacque (child welfare caseworker) speaking with patient's at this time. Has home health nurse. Pt reports burning sensation with urination. Had a UTI 1 month ago and took antibiotics as ordered, but confusion remains (per pt and ). Aware of plan to insert IV and give IV fluids as ordered by LEEANNE Lehman. Will continue to monitor.
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
[2021-05-03 17:41] VITALS: BP 155/69; PULSE 71; RESP 17; TEMP 37; O2SAT 98
[2021-05-03 17:58] LABS: Glucose Urine UA NEG (NEG); Leukocyte Esterase Urine 2+ (NEG); Nitrite Urine NEG (NEG); Specific Gravity - Urine 1.015 (1.005-1.025); UACC Culture Trigger YES; Urine Blood NEG (NEG); Urine Ketones NEG (NEG); Urine Protein NEG (NEG-TRACE)
[2021-05-03 18:03] LABS: Appearance Urine CLEAR; Color Urine YELLOW
[2021-05-03 18:24] LABS: Bacteria Urine TRACE /LPF; Squamous Epithelial Cell Urine 3+ /LPF
--- NOTE | 2021-05-03 19:04 | MHC.CM.ED ---
CM met with patient and . Pt pleasant and cooperative. Admits to some confusion. Denies wanting to hurt her . States she is concerned about her grandsons in the [employer]. As we were speaking pt got confused and angry with her , as she could not find her socks and shoes. and CM tried to explain that she has them at home. tells CM that this is what happens, she has periods of confusion and gets angry. went home to have dinner at 's insistence. Pt now a bit weepy. RN aware and witnessed above. Pt and aware that Care Team will see pt to assess her confusion and mental status. Pt does not use any DME. Has [facility] services for VS, and medication management. Pt feels safe at home and cares for herself and completes ADL's. Pt not cooking now with onset on confusion, but does and they order take-out. Pending crisis evaluation. CM will follow for d/c needs.
[2021-05-03] MEDS: levoFLOXacin/D5W 750 MG/150 ML PIGGYBACK 100 MG IV (20:14)
[2021-05-03] MEDS: 0.9 % Sodium Chloride 1,000 ML 999 ML IVCONT (20:15)
--- NOTE | 2021-05-03 20:25 | PC.NURSE ---
Per provider pt has been made a section 12 for HI. pt has gone home. pt ambulated to the bathroom with steady gait. pt is calm and cooperative at this time. needs met at bedside, curtain open and room check for safety.
[2021-05-03 20:55] VITALS: BP 149/81; PULSE 74; RESP 15; TEMP 37.1; O2SAT 97
[2021-05-03 20:56] LABS: COVID-19 Test Negative (Negative)
--- NOTE | 2021-05-03 21:33 | PM.IMHP ---
History of Present Illness Date of Service: 05/03/21 Chief Complaint: Urinary frequency urgency/confusion. 65-year-old female with a past medical history of hypertension, hyperlipidemia, diabetes, history of recurrent UTIs, delirium/encephalopathy secondary to urinary infection; presented to the hospital today with a chief complaint of urinary frequency/urgency concern for urinary infection. Most of the history obtained from the patient and patient's . Patient has been reports that patient has been confused intermittently for the past few weeks; just finished a dose of antibiotics for urinary infection. Mentions that today patient is confused and has been hallucinating; hence centered to the hospital for further evaluation. Patient denies any chest pain palpitations lightheadedness dizziness and. Denies any abdominal discomfort. Complains of urinary frequency and urgency. Denies any nausea vomiting diarrhea. Patient has been denies any homicidal ideation mentioned with the patient. Patient denies any suicidal or homicidal ideation currently. ER course: ER team mentioned that patient currently calm and cooperative. ER team noted that [facility] reported patient had homicidal ideation prior to coming into the hospital. Patient was section 12 in the ER. Noted to have UTI; given Levaquin. Admitted for further management. ER team also notified crisis team who recommended treating urinary infection before their evaluation. 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 Mother Angina at rest Sister Lung cancer Colon cancer COPD (chronic obstructive pulmonary disease) Surgical History History of appendectomy History of arthroscopy of both knees History of hysterectomy History of pancreatic surgery Social History Household Members: Spouse Housing: House Do you presently have visiting nurse or other home services: No Unable to assess alcohol history related to: Refusing to respond Alcohol intake: unknown Patient Tobacco Use Status: Never used Tobacco e-Cigarette/Vaping Use: Never Used Second Hand Smoke Exposure: No Advance Directives: Yes Advance Directives on File: Yes Advance Directives Date on File: 07/27/20 service: No Current occupational status: unemployed and disabled Current occupation: right handed Sexual orientation: Straight/Heterosexual Meds Allergies Allergy/AdvReac Type Severity Reaction Status Date / Time Sulfa (Sulfonamide Allergy Severe DIFFICULTY Verified 02/28/21 15:39 Antibiotics) BREATHING [SULFA (SULFONAMIDE ANTIBIOTICS)] cephalexin [From KEFLEX] Allergy Intermediate RASH,HIVES Verified 02/28/21 15:39 amoxicillin [AMOXICILLIN] Allergy Unknown DENIES Verified 02/28/21 15:39 THIS ALLERGY 03/28/2018 penicillin V Allergy Unknown Unknown Verified 02/28/21 15:39 sumatriptan [From IMITREX] AdvReac Severe HEART Verified 02/28/21 15:39 PALPITATIONS topiramate [From TOPAMAX] AdvReac Severe AGITATION Verified 02/28/21 15:39 Active Medications: Current Medications Generic Name Dose Route Start Last Admin Trade Name Freq PRN Reason Stop Dose Admin Acetaminophen 650 mg 05/03/21 20:07 Acetaminophen 325 Mg Tablet PO Q6H PRN Pain, Mild (Pain Scale 1-3) Dextrose 25 gm 05/03/21 20:21 Dextrose 50 % 25 Gm/50 Ml Vial IVPUSH Q15M PRN per Hypoglycemia Standing Ord. Protocol Glucose 15 gm 05/03/21 20:21 Glucose Gel 15 Gm Gel..Gram. PO Q15M PRN per Hypoglycemia Standing Ord. Protocol Heparin Sodium (Porcine) 5,000 unit 05/03/21 21:00 Heparin Sodium,Porcine 5,000 Unit/Ml Vial SUBCUT Q8H COUNT INCLUDES THE [facility] Insulin Human Lispro 0 unit 05/03/21 21:00 Insulin Lispro 100 Unit/Ml 3 Ml Vial SUBCUT QIDACHS COUNT INCLUDES THE [facility] Protocol Levofloxacin 500 mg 05/04/21 20:00 Levofloxacin 500 Mg Tablet PO Q24H COUNT INCLUDES THE [facility] Sodium Chloride 3 ml 05/04/21 00:00 0.9 % Sodium Chloride Flush 3 Ml Syringe IVFLUSH QSHIFT COUNT INCLUDES THE [facility] Home Medications Medication Instructions Recorded Confirmed Last Taken Type acetaminophen 650 mg 650 mg PO Q8H PRN 12/08/20 04/03/21 Unknown History tablet,extended release (Tylenol Arthritis Pain) dicyclomine 20 mg tablet 1 tab PO TID 12/16/20 04/03/21 Unknown History donepezil 5 mg tablet 5 mg PO BEDTIME 03/28/21 04/03/21 Unknown History insulin lispro 100 unit/mL 2 - 14 unit SUBCUT TIDAC 03/28/21 04/03/21 Unknown History subcutaneous pen (Humalog KwikPen (U-100) Insulin) valsartan 80 mg tablet 80 mg PO DAILY 03/28/21 04/04/21 Unknown History multivitamin 1 tab PO DAILY 04/04/21 04/04/21 Unknown History Physical Exam Vital Signs and Narrative: Vital Signs: Last Vital Signs Temp 98.7 F 05/03/21 20:55 Pulse 74 05/03/21 20:55 Resp 15 05/03/21 20:55 BP 149/81 H 05/03/21 20:55 Pulse Ox 97 05/03/21 20:55 Body Mass Index 32.1 Gen: Appears be in no acute distress HEENT: NCAT, Moist mucosa. Pulmonary: Vesicular breath sounds, fair air entry CVS: Normal S1-S2 Abdomen: BS+, Soft, Nontender Extremities: Warm well perfused Neuro: Alert and awake. Results Labs CBC and Chem 7: 05/03/21 14:41 05/03/21 14:41 Labs: Laboratory Results - last 24 hr 05/03/21 05/03/21 05/03/21 14:41 14:41 17:49 MCV 94.7 MCH 30.9 MCHC 32.7 RDW 13.6 Plt Count 267 MPV 9.7 Immature Gran % (Auto) 0.5 H Neut % (Auto) 53.8 Lymph % (Auto) 32.5 [place] % (Auto) 8.5 Eos % (Auto) 4.2 H Baso % (Auto) 0.5 Lymph # (Auto) 3.4 [place] # (Auto) 0.9 Eos # (Auto) 0.4 Baso # (Auto) 0.1 Abs Immat Gran (auto) 0.05 H Absolute Neuts (auto) 5.6 Absolute Nucleated RBC 0.000 Nucleated RBC % (auto) 0.0 Anion Gap 13 Estim Creat Clear Calc 78.4 Estimated GFR > 60 Random Glucose 99 D Calcium 9.5 Urine Color YELLOW Urine Appearance CLEAR Urine pH 6.0 Ur Specific [place] 1.015 Urine Protein NEG Urine Glucose (UA) NEG Urine Ketones NEG Urine Blood NEG Urine Nitrite NEG Ur Leukocyte Esterase 2+ H Urine RBC 1-4 Urine WBC 15-29 H Ur Squamous Epith Cells 3+ Urine Bacteria TRACE Urine Yeast TRACE COVID-19 (FLOR) COVID-19 Clin Com 05/03/21 20:34 MCV MCH MCHC RDW Plt Count MPV Immature Gran % (Auto) Neut % (Auto) Lymph % (Auto) [place] % (Auto) Eos % (Auto) Baso % (Auto) Lymph # (Auto) [place] # (Auto) Eos # (Auto) Baso # (Auto) Abs Immat Gran (auto) Absolute Neuts (auto) Absolute Nucleated RBC Nucleated RBC % (auto) Anion Gap Estim Creat Clear Calc Estimated GFR Random Glucose Calcium Urine Color Urine Appearance Urine pH Ur Specific [place] Urine Protein Urine Glucose (UA) Urine Ketones Urine Blood Urine Nitrite Ur Leukocyte Esterase Urine RBC Urine WBC Ur Squamous Epith Cells Urine Bacteria Urine Yeast COVID-19 (FLOR) Negative COVID-19 Clin Com See Note Assessment and Plan (1) Altered mental status: Qualifiers: Altered mental status type: unspecified Qualified Code(s): R41.82 - Altered mental status, unspecified Status: Acute (2) UTI (urinary tract infection): Qualifiers: Hematuria presence: without hematuria Urinary tract infection type: acute cystitis Qualified Code(s): N30.00 - Acute cystitis without hematuria Status: Acute 65-year-old female with a past medical history of hypertension, hyperlipidemia, diabetes, history of recurrent UTIs, encephalopathy secondary to infection presented to the hospital with a chief complaint of urinary frequency urgency burning and confusion. Admitted for further management. Altered mental status: Patient is currently common cooperative. Improving mental status. Supportive care. Likely toxic metabolic encephalopathy in the setting of urinary infection. Recurrent urinary tract infection: Continue Levaquin. Id consult for further recommendations. Concerns for homicidal ideation: Patient and patient's denies any homicidal ideation. Spoke to the RN for close monitoring. Psychiatric consult for further recommendations. Diabetes: Insulin sliding scale For all other chronic conditions, home medications will be continued DVT prophylaxis: [facility] Code status: Full code Quality Stroke Does the patient have a stroke diagnosis?: No VTE Prior VTE?: No VTE Risk Level:: Medical - moderate - high VTE Device Contraindication: Treatment Not Indicated VTE Drug Contraindication: N/A - Med Ordered
[2021-05-03 21:34] LABS: Glucose, Whole Blood 113 mg/dL (60-115)
--- NOTE | 2021-05-03 22:04 | MHC.CM.PN ---
Addendum entered by Yecenia Anguiano 05/03/21 22:08: Section 12 completed by Steph Carcamo Care team evaluation pending. Original Note: Pt will be admitted for IV antibiotics for management of her UTI. Room 461. , Ant notified. Chart review showed that patient has been diagnosed with Lewy body dementia bu Dr. Horowitz. IMM reviewed with patient and signed per protocol on 05/03/2021@2035. HCP is on file. CM to follow for d/c needs.
--- NOTE | 2021-05-03 22:18 | MHC.CM.PN ---
Referral to [facility] in [employer] with pt update, admission and pending crisis evaluation pending. Requested [facility] to follow. D/C uncertain at this time. CM to follow for d/c needs.
[2021-05-03 22:34] VITALS: BP 179/73; PULSE 80; RESP 16; TEMP 36.9; O2SAT 98
[2021-05-03] MEDS: Heparin Sodium,Porcine 5,000 UNIT/ML VIAL 5000 UNIT SUBCUT (23:07)
[2021-05-03 23:11] VITALS: BP 147/85; PULSE 77; RESP 18; TEMP 37; O2SAT 96
[2021-05-03] MEDS: 0.9 % Sodium Chloride Flush 3 ML SYRINGE IVFLUSH (23:18)
[2021-05-03 23:55] VITALS: BMI 33.5
[2021-05-04] MEDS: Acetaminophen 325 MG TABLET 650 MG PO ×2 (00:26→08:13)
[2021-05-04] MEDS: traMADoL HCL 50 MG TABLET 25 MG PO ×2 (04:10→21:15)
[2021-05-04] MEDS: Heparin Sodium,Porcine 5,000 UNIT/ML VIAL 5000 UNIT SUBCUT ×3 (06:11→20:20)
[2021-05-04 06:31] LABS: MANUAL DIFF FLAG NO
[2021-05-04 06:39] LABS: Basophils Percent Auto 0.3 % (0-2); Eosinophils Absolute Auto 0.3 X10*3/uL (0.0-0.4); Eosinophils Percent Auto 3.3 % (0-4); Hematocrit 38.2 % (37-47); Hemoglobin 12.8 g/dl (12.0-16.0); Imm Gran Abs Auto 0.03 X10*3/uL (0.00-0.03); Imm Gran Pct Auto 0.3 % (0.0-0.4); Lymphocytes Absolute Auto 2.5 X10*3/uL (1.2-4.9); Lymphocytes Percent Auto 27.8 % (20-40); Mean Corpuscular HGB Conc 33.5 g/dl (31.0-35.0); Mean Corpuscular Hemoglobin 31.9 pg (27.0-33.0); Mean Corpuscular Volume 95.3 fL (80-98); Monocytes Absolute Auto 0.7 X10*3/uL (0.1-1.2); Neutrophils Absolute Auto 5.4 X10*3/uL (2.0-8.3); Neutrophils Percent Auto 60.3 % (45-73); Platelet Count 258 X10*3/uL (160-400); Red Blood Count 4.01 X10*6/uL (4.20-5.50); Red Cell Distribution Width 13.5 % (11.0-16.0); White Blood Count 8.9 X10*3/uL (4.8-10.8)
[2021-05-04 07:07] LABS: Anion Gap 18 (12-20); Blood Urea Nitrogen 10 mg/dL (9-16); Calcium 9.3 mg/dL (8.4-10.2); Carbon Dioxide 24 mmol/L (22-29); Chloride 107 mmol/L (96-108); Estimated Glomerular Filt Rate > 60; Glucose Random 129 mg/dL (60-115); Potassium 4.2 mmol/L (3.3-5.1); Sodium 145 mmol/L (135-145)
[2021-05-04 07:12] LABS: Glucose, Whole Blood 142 mg/dL (60-115)
[2021-05-04 07:14] VITALS: BP 133/86; PULSE 68; RESP 18; TEMP 36.5; O2SAT 96
[2021-05-04] MEDS: 0.9 % Sodium Chloride Flush 3 ML SYRINGE IVFLUSH ×3 (08:13→20:21)
[2021-05-04 08:14] VITALS: BP 133/86; PULSE 68
[2021-05-04] MEDS: amLODIPine Besylate 2.5 MG TABLET PO (08:14)
[2021-05-04] MEDS: Multivitamin TABLET 1 TAB PO (08:14)
[2021-05-04 08:15] VITALS: BP 133/86; PULSE 68
[2021-05-04] MEDS: Valsartan 80 MG TABLET PO (08:15)
[2021-05-04] MEDS: Dicyclomine HCl 10 MG CAPSULE 20 MG PO ×3 (08:15→20:19)
[2021-05-04] MEDS: Baclofen 10 MG TABLET PO ×3 (08:15→20:19)
[2021-05-04] MEDS: Metoprolol Succinate ER 25 MG TAB.ER.24H PO (08:15)
[2021-05-04] MEDS: Aspirin Enteric Coated 81 MG TABLET.DR PO (08:16)
[2021-05-04 08:33] LABS: Estimated Average Glucose 194 mg/dL; Hemoglobin A1c % 8.4 %
--- NOTE | 2021-05-04 11:04 | MHC.CM.PN ---
Per ROUNDS discussion, Patient is not yet medically cleared for dc (Needs Crisis eval); dc plan is pending until Crisis eval recommendations are known. CM will follow.
[2021-05-04 11:05] LABS: Glucose, Whole Blood 192 mg/dL (60-115)
[2021-05-04] MEDS: Insulin Lispro 100 UNIT/ML 3 ML VIAL SUBCUT ×2 (11:40→16:21)
--- NOTE | 2021-05-04 15:19 | PM.PSYCN ---
History of Present Illness Date of Service: today Chief Complaint: UTI Reason for Consult: HI, hallucinations in setting of UTI HPI Narrative: pt presented to ED with AMS in setting of UTI. this is not an uncommon presentation for her. she has dementia at baseline. she was admitted and treated for UTI overnight. on interview with pt on subsequent hospital day, she appears lucid and denies SI/HI, or hallucinations. she does acknowledge h/o hallucinations but denies any recently. she does not appear to recall her condition last evening, which is not uncommon. Past Psychiatric History: None known, as per chart, she was diagnosed of depression but never admitted into the hospital. dementia, per chart. 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 He is 82 and struggling to cope. 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 Has D from first marriage. Has 9 grandchildren Trauma History: None explored Diagnostics Vital Signs (24Hr): Vital Signs - 24 hr 05/03/21 17:41 05/03/21 20:55 05/03/21 22:34 Temperature 98.6 F 98.7 F 98.4 F Pulse Rate 71 74 80 Respiratory Rate 17 15 16 Blood Pressure 155/69 H 149/81 H 179/73 H Pulse Oximetry 98 97 98 05/03/21 23:11 05/04/21 07:14 05/04/21 08:14 Temperature 98.6 F 97.7 F Pulse Rate 77 68 68 Respiratory Rate 18 18 Blood Pressure 147/85 H 133/86 133/86 Pulse Oximetry 96 96 05/04/21 08:15 Temperature Pulse Rate 68 Respiratory Rate Blood Pressure 133/86 Pulse Oximetry Body Mass Index 33.5 Labs Results: 05/04/21 05:18 05/04/21 05:18 Labs: Laboratory Results - last 48 hr 05/03/21 05/03/21 05/03/21 14:41 14:41 17:49 WBC 10.4 RBC 4.17 L Hgb 12.9 Hct 39.5 MCV 94.7 MCH 30.9 MCHC 32.7 RDW 13.6 Plt Count 267 MPV 9.7 Immature Gran % (Auto) 0.5 H Neut % (Auto) 53.8 Lymph % (Auto) 32.5 [place] % (Auto) 8.5 Eos % (Auto) 4.2 H Baso % (Auto) 0.5 Lymph # (Auto) 3.4 [place] # (Auto) 0.9 Eos # (Auto) 0.4 Baso # (Auto) 0.1 Abs Immat Gran (auto) 0.05 H Absolute Neuts (auto) 5.6 Absolute Nucleated RBC 0.000 Nucleated RBC % (auto) 0.0 Sodium 143 Potassium 3.9 Chloride 111 H Carbon Dioxide 23 Anion Gap 13 BUN 13 Creatinine 0.69 Estim Creat Clear Calc 78.4 Estimated GFR > 60 POC Glucose Random Glucose 99 D Estimat Average Glucose Hemoglobin A1c % Calcium 9.5 Urine Color YELLOW Urine Appearance CLEAR Urine pH 6.0 Ur Specific [place] 1.015 Urine Protein NEG Urine Glucose (UA) NEG Urine Ketones NEG Urine Blood NEG Urine Nitrite NEG Ur Leukocyte Esterase 2+ H Urine RBC 1-4 Urine WBC 15-29 H Ur Squamous Epith Cells 3+ Urine Bacteria TRACE Urine Yeast TRACE COVID-19 (FLOR) COVID-19 Clin Com 05/03/21 05/03/21 05/04/21 20:34 21:30 05:18 WBC 8.9 RBC 4.01 L Hgb 12.8 Hct 38.2 MCV 95.3 MCH 31.9 MCHC 33.5 RDW 13.5 Plt Count 258 MPV 10.0 Immature Gran % (Auto) 0.3 Neut % (Auto) 60.3 Lymph % (Auto) 27.8 [place] % (Auto) 8.0 Eos % (Auto) 3.3 Baso % (Auto) 0.3 Lymph # (Auto) 2.5 [place] # (Auto) 0.7 Eos # (Auto) 0.3 Baso # (Auto) 0.0 Abs Immat Gran (auto) 0.03 Absolute Neuts (auto) 5.4 Absolute Nucleated RBC 0.000 Nucleated RBC % (auto) 0.0 Sodium Potassium Chloride Carbon Dioxide Anion Gap BUN Creatinine Estim Creat Clear Calc Estimated GFR POC Glucose 113 Random Glucose Estimat Average Glucose Hemoglobin A1c % Calcium Urine Color Urine Appearance Urine pH Ur Specific [place] Urine Protein Urine Glucose (UA) Urine Ketones Urine Blood Urine Nitrite Ur Leukocyte Esterase Urine RBC Urine WBC Ur Squamous Epith Cells Urine Bacteria Urine Yeast COVID-19 (FLOR) Negative COVID-19 Clin Com See Note 05/04/21 05/04/21 05/04/21 05:18 05:18 07:06 WBC RBC Hgb Hct MCV MCH MCHC RDW Plt Count MPV Immature Gran % (Auto) Neut % (Auto) Lymph % (Auto) [place] % (Auto) Eos % (Auto) Baso % (Auto) Lymph # (Auto) [place] # (Auto) Eos # (Auto) Baso # (Auto) Abs Immat Gran (auto) Absolute Neuts (auto) Absolute Nucleated RBC Nucleated RBC % (auto) Sodium 145 Potassium 4.2 Chloride 107 Carbon Dioxide 24 Anion Gap 18 BUN 10 Creatinine 0.70 Estim Creat Clear Calc 79.0 Estimated GFR > 60 POC Glucose 142 H Random Glucose 129 H Estimat Average Glucose 194 Hemoglobin A1c % 8.4 Calcium 9.3 Urine Color Urine Appearance Urine pH Ur Specific [place] Urine Protein Urine Glucose (UA) Urine Ketones Urine Blood Urine Nitrite Ur Leukocyte Esterase Urine RBC Urine WBC Ur Squamous Epith Cells Urine Bacteria Urine Yeast COVID-19 (FLOR) COVID-19 Clin Com 05/04/21 11:01 WBC RBC Hgb Hct MCV MCH MCHC RDW Plt Count MPV Immature Gran % (Auto) Neut % (Auto) Lymph % (Auto) [place] % (Auto) Eos % (Auto) Baso % (Auto) Lymph # (Auto) [place] # (Auto) Eos # (Auto) Baso # (Auto) Abs Immat Gran (auto) Absolute Neuts (auto) Absolute Nucleated RBC Nucleated RBC % (auto) Sodium Potassium Chloride Carbon Dioxide Anion Gap BUN Creatinine Estim Creat Clear Calc Estimated GFR POC Glucose 192 H Random Glucose Estimat Average Glucose Hemoglobin A1c % Calcium Urine Color Urine Appearance Urine pH Ur Specific [place] Urine Protein Urine Glucose (UA) Urine Ketones Urine Blood Urine Nitrite Ur Leukocyte Esterase Urine RBC Urine WBC Ur Squamous Epith Cells Urine Bacteria Urine Yeast COVID-19 (FLOR) COVID-19 Clin Com Mental Status Exam Mental Status Exam Patient Appearance: Well Grooomed Patient Orientation: Person, Place, Time and Situation Level of Consciousness: Awake Patient Behavior: Appropriate Mood Description: Calm Affect Description: Calm Ability to Follow Directions: Excellent Speech Pattern: Clear Thought Process: Intact Medications Medications Current Medications Generic Name Dose Route Start Last Admin Trade Name Freq PRN Reason Stop Dose Admin Acetaminophen 650 mg 05/03/21 20:07 05/04/21 08:13 Acetaminophen 325 Mg Tablet PO 650 mg Q6H PRN Administration Pain, Mild (Pain Scale 1-3) Amlodipine Besylate 2.5 mg 05/04/21 09:00 05/04/21 08:14 Amlodipine Besylate 2.5 Mg Tablet PO 2.5 mg DAILY FRANCHESKA Administration Protocol Aspirin 81 mg 05/04/21 09:00 05/04/21 08:16 Aspirin Enteric Coated 81 Mg Tablet.Dr PO 81 mg DAILY [place]KA Administration Atorvastatin Calcium 80 mg 05/04/21 21:00 Atorvastatin Calcium 80 Mg Tablet PO BEDTIME [facility]KA Baclofen 10 mg 05/04/21 09:00 05/04/21 08:15 Baclofen 10 Mg Tablet PO 10 mg TID FRANCHESKA Administration Dextrose 25 gm 05/03/21 20:21 Dextrose 50 % 25 Gm/50 Ml Vial IVPUSH Q15M PRN per Hypoglycemia Standing Ord. Protocol Dicyclomine HCl 20 mg 05/04/21 09:00 05/04/21 08:15 Dicyclomine Hcl 10 Mg Capsule PO 20 mg TID [place]AN[place]ESKA Administration Donepezil HCl 5 mg 05/04/21 21:00 Donepezil Hcl 5 Mg Tablet PO BEDTIME [facility] Glucose 15 gm 05/03/21 20:21 Glucose Gel 15 Gm Gel..Gram. PO Q15M PRN per Hypoglycemia Standing Ord. Protocol Heparin Sodium (Porcine) 5,000 unit 05/03/21 21:00 05/04/21 13:29 Heparin Sodium,Porcine 5,000 Unit/Ml Vial SUBCUT 5,000 unit Q8H [place] Administration Insulin Glargine 40 unit 05/04/21 21:00 Insulin Glargine,Hum.Rec.Anlog 100 Unit/Ml 10 Ml Vial SUBCUT BEDTIME [facility] Insulin Human Lispro 0 unit 05/03/21 21:00 05/04/21 11:40 Insulin Lispro 100 Unit/Ml 3 Ml Vial SUBCUT 2 unit QIDACHS [place]KA Administration Protocol Levofloxacin 500 mg 05/04/21 20:00 Levofloxacin 500 Mg Tablet PO Q24H [facility] Metoprolol Succinate 25 mg 05/04/21 09:00 05/04/21 08:15 Metoprolol Succinate Er 25 Mg Tab.Er.24h PO 25 mg DAILY [place] Administration Protocol Multivitamins/Vitamin C 1 tab 05/04/21 09:00 05/04/21 08:14 Multivitamin Tablet PO 1 tab DAILY [place] Administration Omeprazole 20 mg 05/04/21 16:30 Omeprazole 20 Mg Capsule. PO BID@6725,6050 [facility] Oxybutynin Chloride 15 mg 05/04/21 09:00 05/04/21 08:14 Oxybutynin Chloride Er 5 Mg Tab.Er.24 PO 15 mg DAILY [facility] Administration Polyethylene Glycol 17 gm 05/04/21 07:54 Polyethylene Glycol 3350 17 Gm Powd.Pack PO DAILY PRN Constipation Quetiapine Fumarate 50 mg 05/04/21 21:00 Quetiapine Fumarate 50 Mg Tablet PO BEDTIME [facility] Sodium Chloride 3 ml 05/04/21 00:00 05/04/21 08:13 0.9 % Sodium Chloride Flush 3 Ml Syringe IVFLUSH 3 ml QSHIFT [facility] Administration Valsartan 80 mg 05/04/21 09:00 05/04/21 08:15 Valsartan 80 Mg Tablet PO 80 mg DAILY [facility] Administration Protocol Allergies Allergies Allergy/AdvReac Type Severity Reaction Status Date / Time Sulfa (Sulfonamide Allergy Severe DIFFICULTY Verified 02/28/21 15:39 Antibiotics) BREATHING [SULFA (SULFONAMIDE ANTIBIOTICS)] cephalexin [From KEFLEX] Allergy Intermediate RASH,HIVES Verified 02/28/21 15:39 amoxicillin [AMOXICILLIN] Allergy Unknown DENIES Verified 02/28/21 15:39 THIS ALLERGY 03/28/2018 penicillin V Allergy Unknown Unknown Verified 02/28/21 15:39 sumatriptan [From IMITREX] AdvReac Severe HEART Verified 02/28/21 15:39 PALPITATIONS topiramate [From TOPAMAX] AdvReac Severe AGITATION Verified 02/28/21 15:39 Assessment & Plan Assessment & Plan (1) Altered mental status: Qualifiers: Altered mental status type: unspecified Qualified Code(s): R41.82 - Altered mental status, unspecified Status: Acute Code(s): R41.82 - Altered mental status, unspecified Assessment and Plan: resolved Assessment and Plan: no apparent need for intervention currently. should she remain for the night and or become agitated, you may consider halol 2-5 mg PRN. Greater than 50% of the session was spent on counseling and/or coordination of care
[2021-05-04 15:20] VITALS: BP 155/100; PULSE 69; RESP 18; TEMP 36.3; O2SAT 96
[2021-05-04 15:51] LABS: Glucose, Whole Blood 169 mg/dL (60-115)
--- NOTE | 2021-05-04 15:56 | HO.PM.IMPN ---
Subjective Subjective Date of Service: 05/04/21 Interval History: denies HI, recognizes she was having this prior to admission, has had this with prior UTI urinary urgency/frequency improving no fever no hematuria Review of Systems Review of Systems: Yes all other systems are reviewed and are negative Physical Exam Vital Signs: Vital Signs: Last Vital Signs Temp 97.4 F 05/04/21 15:20 Pulse 69 05/04/21 15:20 Resp 18 05/04/21 15:20 BP 155/100 H 05/04/21 15:20 Pulse Ox 96 05/04/21 15:20 Body Mass Index 33.5 Gen: in no acute distress HEENT: sclera anicteric, moist mucus membranes Neck: supple Lungs: clear to auscultation bilaterally Heart: regular rate and rhythm, no murmurs Abd: soft, non-tender, non-distended Ext: no edema Skin: warm/well-perfused Neuro: alert and oriented x3, no focal findings Psych: appropriate affect Objective Data Current Medications Generic Name Dose Route Start Last Admin Trade Name Freq PRN Reason Stop Dose Admin Acetaminophen 650 mg 05/03/21 20:07 05/04/21 08:13 Acetaminophen 325 Mg Tablet PO 650 mg Q6H PRN Administration Pain, Mild (Pain Scale 1-3) Amlodipine Besylate 2.5 mg 05/04/21 09:00 05/04/21 08:14 Amlodipine Besylate 2.5 Mg Tablet PO 2.5 mg DAILY FRANCHESKA Administration Protocol Aspirin 81 mg 05/04/21 09:00 05/04/21 08:16 Aspirin Enteric Coated 81 Mg Tablet. PO 81 mg DAILY FRANCHESKA Administration Atorvastatin Calcium 80 mg 05/04/21 21:00 Atorvastatin Calcium 80 Mg Tablet PO BEDTIME FRANCHESKA Baclofen 10 mg 05/04/21 09:00 05/04/21 08:15 Baclofen 10 Mg Tablet PO 10 mg TID FRANCHESKA Administration Dextrose 25 gm 05/03/21 20:21 Dextrose 50 % 25 Gm/50 Ml Vial IVPUSH Q15M PRN per Hypoglycemia Standing Ord. Protocol Dicyclomine HCl 20 mg 05/04/21 09:00 05/04/21 08:15 Dicyclomine Hcl 10 Mg Capsule PO 20 mg TID FRANCHESKA Administration Donepezil HCl 5 mg 05/04/21 21:00 Donepezil Hcl 5 Mg Tablet PO BEDTIME FRANCHESKA Glucose 15 gm 05/03/21 20:21 Glucose Gel 15 Gm Gel..Gram. PO Q15M PRN per Hypoglycemia Standing Ord. Protocol Heparin Sodium (Porcine) 5,000 unit 05/03/21 21:00 05/04/21 13:29 Heparin Sodium,Porcine 5,000 Unit/Ml Vial SUBCUT 5,000 unit Q8H FRANCHESKA Administration Insulin Glargine 40 unit 05/04/21 21:00 Insulin Glargine,Hum.Rec.Anlog 100 Unit/Ml 10 Ml Vial SUBCUT BEDTIME FRANCHESKA Insulin Human Lispro 0 unit 05/03/21 21:00 05/04/21 11:40 Insulin Lispro 100 Unit/Ml 3 Ml Vial SUBCUT 2 unit QIDACHS [facility] Administration Protocol Levofloxacin 500 mg 05/04/21 20:00 Levofloxacin 500 Mg Tablet PO Q24H [facility] Metoprolol Succinate 25 mg 05/04/21 09:00 05/04/21 08:15 Metoprolol Succinate Er 25 Mg Tab.Er.24h PO 25 mg DAILY FRANCHESKA Administration Protocol Multivitamins/Vitamin C 1 tab 05/04/21 09:00 05/04/21 08:14 Multivitamin Tablet PO 1 tab DAILY [facility] Administration Omeprazole 20 mg 05/04/21 16:30 Omeprazole 20 Mg Capsule. PO BID@3591,2334 [facility] Oxybutynin Chloride 15 mg 05/04/21 09:00 05/04/21 08:14 Oxybutynin Chloride Er 5 Mg Tab.Er.24 PO 15 mg DAILY FRANCHESKA Administration Polyethylene Glycol 17 gm 05/04/21 07:54 Polyethylene Glycol 3350 17 Gm Powd.Pack PO DAILY PRN Constipation Quetiapine Fumarate 50 mg 05/04/21 21:00 Quetiapine Fumarate 50 Mg Tablet PO BEDTIME [facility] Sodium Chloride 3 ml 05/04/21 00:00 05/04/21 08:13 0.9 % Sodium Chloride Flush 3 Ml Syringe IVFLUSH 3 ml QSHIFT [facility] Administration Valsartan 80 mg 05/04/21 09:00 05/04/21 08:15 Valsartan 80 Mg Tablet PO 80 mg DAILY FRANCHESKA Administration Protocol Labs CBC & Chem 7: 05/04/21 05:18 05/04/21 05:18 Labs: Laboratory Results - last 24 hr 05/03/21 05/03/21 05/03/21 17:49 20:34 21:30 MCV MCH MCHC RDW Plt Count MPV Immature Gran % (Auto) Neut % (Auto) Lymph % (Auto) [place] % (Auto) Eos % (Auto) Baso % (Auto) Lymph # (Auto) [place] # (Auto) Eos # (Auto) Baso # (Auto) Abs Immat Gran (auto) Absolute Neuts (auto) Absolute Nucleated RBC Nucleated RBC % (auto) Anion Gap Estim Creat Clear Calc Estimated GFR POC Glucose 113 Random Glucose Estimat Average Glucose Hemoglobin A1c % Calcium Urine Color YELLOW Urine Appearance CLEAR Urine pH 6.0 Ur Specific [place] 1.015 Urine Protein NEG Urine Glucose (UA) NEG Urine Ketones NEG Urine Blood NEG Urine Nitrite NEG Ur Leukocyte Esterase 2+ H Urine RBC 1-4 Urine WBC 15-29 H Ur Squamous Epith Cells 3+ Urine Bacteria TRACE Urine Yeast TRACE COVID-19 (FLOR) Negative COVID-19 Clin Com See Note 05/04/21 05/04/21 05/04/21 05:18 05:18 05:18 MCV 95.3 MCH 31.9 MCHC 33.5 RDW 13.5 Plt Count 258 MPV 10.0 Immature Gran % (Auto) 0.3 Neut % (Auto) 60.3 Lymph % (Auto) 27.8 [place] % (Auto) 8.0 Eos % (Auto) 3.3 Baso % (Auto) 0.3 Lymph # (Auto) 2.5 [place] # (Auto) 0.7 Eos # (Auto) 0.3 Baso # (Auto) 0.0 Abs Immat Gran (auto) 0.03 Absolute Neuts (auto) 5.4 Absolute Nucleated RBC 0.000 Nucleated RBC % (auto) 0.0 Anion Gap 18 Estim Creat Clear Calc 79.0 Estimated GFR > 60 POC Glucose Random Glucose 129 H Estimat Average Glucose 194 Hemoglobin A1c % 8.4 Calcium 9.3 Urine Color Urine Appearance Urine pH Ur Specific [place] Urine Protein Urine Glucose (UA) Urine Ketones Urine Blood Urine Nitrite Ur Leukocyte Esterase Urine RBC Urine WBC Ur Squamous Epith Cells Urine Bacteria Urine Yeast COVID-19 (FLOR) COVID-19 Clin Com 05/04/21 05/04/21 05/04/21 07:06 11:01 15:45 MCV MCH MCHC RDW Plt Count MPV Immature Gran % (Auto) Neut % (Auto) Lymph % (Auto) [place] % (Auto) Eos % (Auto) Baso % (Auto) Lymph # (Auto) [place] # (Auto) Eos # (Auto) Baso # (Auto) Abs Immat Gran (auto) Absolute Neuts (auto) Absolute Nucleated RBC Nucleated RBC % (auto) Anion Gap Estim Creat Clear Calc Estimated GFR POC Glucose 142 H 192 H 169 H Random Glucose Estimat Average Glucose Hemoglobin A1c % Calcium Urine Color Urine Appearance Urine pH Ur Specific [place] Urine Protein Urine Glucose (UA) Urine Ketones Urine Blood Urine Nitrite Ur Leukocyte Esterase Urine RBC Urine WBC Ur Squamous Epith Cells Urine Bacteria Urine Yeast COVID-19 (FLOR) COVID-19 Clin Com Microbiology Microbiology Results: Microbiology 05/03/21 17:49 Urine Culture - Final Urine clean catch - Urine crain top Assessment and Plan (1) Altered mental status: Status: Acute (2) UTI (urinary tract infection): Status: Acute Assessment and Plan: hospital d#2 65yo F with dementia HTN, HLD, DM2, recurrent UTI + encephalopathy presented with UTI symptoms with HI # encephalopathy, toxic/metabolic - appears to be resolved with UTI treatment # UTI - urine cx contaminated, will resend, on levofloxacin d#2 # HI - resolved, cleared per psychiatry # dementia - continue quetiapine, donepezil # HTN - conttnue amlodipine, valsartan, metoprolol # DM2 - basal + correction-dose lispro # VTE ppx - UFH # dispo - will order PT eval Quality Stroke Does the patient have a stroke diagnosis?: No VTE Prior VTE?: No VTE Risk Level:: Medical - moderate - high VTE Device Contraindication: Treatment Not Indicated VTE Drug Contraindication: N/A - Med Ordered
[2021-05-04] MEDS: Omeprazole 20 MG CAPSULE.DR PO (16:20)
[2021-05-04 20:01] LABS: Glucose, Whole Blood 148 mg/dL (60-115)
[2021-05-04] MEDS: levoFLOXacin 500 MG TABLET PO (20:18)
[2021-05-04] MEDS: Donepezil HCl 5 MG TABLET PO (20:19)
[2021-05-04] MEDS: Atorvastatin Calcium 80 MG TABLET PO (20:19)
[2021-05-04] MEDS: QUEtiapine Fumarate 50 MG TABLET PO (20:19)
[2021-05-04] MEDS: Insulin Glargine,Hum.rec.anlog 100 UNIT/ML 10 ML VIAL 40 UNIT SUBCUT (20:30)
[2021-05-04 23:30] VITALS: BP 108/55; PULSE 74; RESP 16; TEMP 36.2; O2SAT 93
[2021-05-05] VITALS (9 sets, daily range): BP systolic 102–171; BP diastolic 50–77; PULSE 63–95; RESP 16–24; TEMP 36–36.8; O2SAT 94–97
--- NOTE | 2021-05-05 | ECG_ITS ---
Test Reason : qt interval Blood Pressure : / mmHG Vent. Rate : 064 BPM Atrial Rate : 064 BPM P-R Int : 132 ms QRS Dur : 094 ms QT Int : 426 ms P-R-T Axes : 028 047 049 degrees QTc Int : 439 ms Normal sinus rhythm Normal ECG When compared with ECG of 03-APR-2021 08:20, Vent. rate has decreased BY 31 BPM Referred By: Casper Shultz Electronically Signed By:MARCELA RAMOS
--- NOTE | 2021-05-05 05:30 | PM.EVENT ---
Documented by User: Jose Gamboa MD 05/05/21 05:56 Event Note Date of Service: 05/05/21 Event Note: Agitation:Patient became agitated around 5:00 a.m. in the morning; shortening and not cooperative; saying she wanted to mention that her sister is dying and she has to be there; I tried to talk to the patient; patient does not seem to have insight into her problem currently. Assessed by the Psychiatry consult patient is given 2 mg of Haldol IM; I spoke to the patient's and explained about the current situation-who agreed to the above plan. Spoke to the RN for safety precautions. 1hr Face to face evaluation done. pt still agitated after haldol IM; given Ativan x1. Documented by User: Agustin Acuna 05/05/21 08:09 Event Note Date of Service: 05/05/21 Event Note: Agitation:Patient became agitated around 5:00 a.m. in the morning; shortening and not cooperative; saying she wanted to mention that her sister is dying and she has to be there; I tried to talk to the patient; patient does not seem to have insight into her problem currently. Assessed by the Psychiatry consult patient is given 2 mg of Haldol IM; I spoke to the patient's and explained about the current situation-who agreed to the above plan. Spoke to the RN for safety precautions. 1hr Face to face evaluation done. pt still agitated after haldol IM; given Ativan x1. PSYCH addendum: increase IM to 5 mg each for agitation
[2021-05-05] MEDS: LORazepam 2 MG/ML VIAL 1 MG IM (06:00)
[2021-05-05] MEDS: Haloperidol Lactate 5 MG/ML VIAL 2 MG IM (06:20)
--- NOTE | 2021-05-05 06:52 | PC.NURSE ---
At approximately 05:15 t/w approached the pt in her room to administer scheduled medication. Pt refused medication and stated that she would be d/c herself from the hospital. Pt was disoriented to date, situation, and place. I'm going to leave this place and you're not going to stop me. Dr. Gamboa contacted and arrived on the unit. Security called after pt became threatening toward staff and attempted to remove her own IV. Pt attempted to kick and hit staff as situation escalated. Dr. Gamboa then ordered medication restraint at 05:30: Haldol 2 mg IM. Pt resisted admin and required brief physical restraint. Restraint only admin after several interventions were attempted including calling pt's , deep breathing exercises, and distraction activities including watching television. Pt continued to attempt to leave the facility and assault staff. Soft-limb restraints were ordered for bilateral wrists. Pt continued to struggle and yell despite admin of Haldol. 0600 Pt received Ativan 1 mg IM at 0600 with some positive effect: pt ceased struggling against restraints but refused to answer questions. Vital signs assessed Q15 MIN and pt observer at bedside. aware of current status. Will continue to monitor and report.
[2021-05-05 07:26] LABS: Glucose, Whole Blood 229 mg/dL (60-115)
--- NOTE | 2021-05-05 09:10 | P.CDIC_ITS ---
CDI Concurrent Query Service Date: 05/05/21 Documentation Clarification: Please clarify if you are treating a proba ble/suspected/likely or confirmed: Dementia: LEWY BODY Acute Dementia - please indicate type, Alzheimer's, vascular, senile, lewy body etc. Baseline dementia with any associated behaviors, aggressive, hallucinations, delirium etc. Please specify if known or undetermined Provider Response: Other Other Diagnosis: Lewy body dementia PLEASE DO NOT DELETE/MODIFY EXISTING CONTENT Additional information is needed in order to code to the highest accuracy and appropriate Severity of Illness (SOI). Please clarify the information noted below in your progress notes and discharge summary. Risk Factors/Clinical Indicators/Treatments PN: 05/04 - Toxic encephalopathy due to UTI. Appears to be resolved with UTI treatment. PN: 05/05 - agitated, not cooperative, wants to leave, pt does not seem to have insight into her problem currently. Psychiatric consult - Haldol IM patient still agitated after Haldol IM, given Ativan x1 Patient has diagnosis of Dementia poa CDS: Kim Ritchie CCS, CDIS Contact Number: [phone] Please Review the information above and exercise your independent professional judgment in responding to the query. If you concur, pleas document in the PROGRESS NOTES and DISCHARGE SUMMARY. If you do not agree with the query, please document in the query above. THIS QUERY IS PART OF THE PERMANENT MEDICAL RECORD
[2021-05-05] MEDS: Insulin Lispro 100 UNIT/ML 3 ML VIAL SUBCUT ×3 (09:12→21:08)
[2021-05-05] MEDS: Lidocaine 4 % Patch ADH..PATCH 1 PATCH TRANSDERMA (10:23)
[2021-05-05] MEDS: Multivitamin TABLET 1 TAB PO (10:27)
[2021-05-05] MEDS: Dicyclomine HCl 10 MG CAPSULE 20 MG PO ×3 (10:27→21:09)
[2021-05-05] MEDS: amLODIPine Besylate 2.5 MG TABLET PO (10:28)
[2021-05-05] MEDS: Acetaminophen 325 MG TABLET 650 MG PO (10:28)
[2021-05-05] MEDS: Valsartan 80 MG TABLET PO (10:29)
[2021-05-05] MEDS: Baclofen 10 MG TABLET PO ×3 (10:29→21:09)
[2021-05-05] MEDS: Metoprolol Succinate ER 25 MG TAB.ER.24H PO (10:30)
[2021-05-05] MEDS: Aspirin Enteric Coated 81 MG TABLET.DR PO (10:30)
[2021-05-05] MEDS: Omeprazole 20 MG CAPSULE.DR PO ×2 (10:31→16:56)
[2021-05-05 11:04] LABS: Glucose, Whole Blood 154 mg/dL (60-115)
[2021-05-05] MEDS: Heparin Sodium,Porcine 5,000 UNIT/ML VIAL 5000 UNIT SUBCUT ×2 (14:19→21:08)
--- NOTE | 2021-05-05 14:22 | PC.NURSE ---
1400 slept most of day. Restraint removed at 0930 skin intact. No behavioral incidents. Awake now and eating lunch. Steady on feet. No agitation noted. visiting
--- NOTE | 2021-05-05 14:46 | P.CNPS_ITS ---
History of Present Illness Date of Service: 05/05/21 Chief Complaint: UTI HPI Narrative: pt had an episode of agitation and confusion at 0500 which required IM haldol. team is concerned pt needs a psychiatric admission and the patient is otherwise stable and medically ready for discharge. on interview with psych MD today pt demonstrated poor insight into the events of the morning and was generally somnolent. Past Psychiatric History: None known, as per chart, she was diagnosed of depression but never admitted into the hospital. dementia, per chart. 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 He is 82 and struggling to cope. 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 Has D from first marriage. Has 9 grandchildren Trauma History: None explored Diagnostics Vital Signs (24Hr): Vital Signs - 24 hr 05/04/21 15:20 05/04/21 23:30 05/05/21 05:45 Temperature 97.4 F 97.2 F Pulse Rate 69 74 Respiratory Rate 18 16 22 H Blood Pressure 155/100 H 108/55 L Pulse Oximetry 96 93 05/05/21 06:00 05/05/21 06:15 05/05/21 06:30 Temperature 98.2 F 97.5 F Pulse Rate 95 94 Respiratory Rate 24 H 22 H 22 H Blood Pressure 130/63 141/67 H Pulse Oximetry 96 97 05/05/21 06:45 05/05/21 10:19 05/05/21 10:39 Temperature 98.0 F 97.7 F Pulse Rate 83 83 69 Respiratory Rate 20 16 Blood Pressure 142/65 H 142/65 H 171/77 H Pulse Oximetry 96 96 95 Body Mass Index 33.5 Labs Results: 05/04/21 05:18 05/04/21 05:18 Labs: Laboratory Results - last 48 hr 05/03/21 05/03/21 05/03/21 14:41 14:41 17:49 WBC 10.4 RBC 4.17 L Hgb 12.9 Hct 39.5 MCV 94.7 MCH 30.9 MCHC 32.7 RDW 13.6 Plt Count 267 MPV 9.7 Immature Gran % (Auto) 0.5 H Neut % (Auto) 53.8 Lymph % (Auto) 32.5 [place] % (Auto) 8.5 Eos % (Auto) 4.2 H Baso % (Auto) 0.5 Lymph # (Auto) 3.4 [place] # (Auto) 0.9 Eos # (Auto) 0.4 Baso # (Auto) 0.1 Abs Immat Gran (auto) 0.05 H Absolute Neuts (auto) 5.6 Absolute Nucleated RBC 0.000 Nucleated RBC % (auto) 0.0 Sodium 143 Potassium 3.9 Chloride 111 H Carbon Dioxide 23 Anion Gap 13 BUN 13 Creatinine 0.69 Estim Creat Clear Calc 78.4 Estimated GFR > 60 POC Glucose Random Glucose 99 D Estimat Average Glucose Hemoglobin A1c % Calcium 9.5 Urine Color YELLOW Urine Appearance CLEAR Urine pH 6.0 Ur Specific [place] 1.015 Urine Protein NEG Urine Glucose (UA) NEG Urine Ketones NEG Urine Blood NEG Urine Nitrite NEG Ur Leukocyte Esterase 2+ H Urine RBC 1-4 Urine WBC 15-29 H Ur Squamous Epith Cells 3+ Urine Bacteria TRACE Urine Yeast TRACE COVID-19 (FLOR) COVID-19 Clin Com 05/03/21 05/03/21 05/04/21 20:34 21:30 05:18 WBC 8.9 RBC 4.01 L Hgb 12.8 Hct 38.2 MCV 95.3 MCH 31.9 MCHC 33.5 RDW 13.5 Plt Count 258 MPV 10.0 Immature Gran % (Auto) 0.3 Neut % (Auto) 60.3 Lymph % (Auto) 27.8 [place] % (Auto) 8.0 Eos % (Auto) 3.3 Baso % (Auto) 0.3 Lymph # (Auto) 2.5 [place] # (Auto) 0.7 Eos # (Auto) 0.3 Baso # (Auto) 0.0 Abs Immat Gran (auto) 0.03 Absolute Neuts (auto) 5.4 Absolute Nucleated RBC 0.000 Nucleated RBC % (auto) 0.0 Sodium Potassium Chloride Carbon Dioxide Anion Gap BUN Creatinine Estim Creat Clear Calc Estimated GFR POC Glucose 113 Random Glucose Estimat Average Glucose Hemoglobin A1c % Calcium Urine Color Urine Appearance Urine pH Ur Specific [place] Urine Protein Urine Glucose (UA) Urine Ketones Urine Blood Urine Nitrite Ur Leukocyte Esterase Urine RBC Urine WBC Ur Squamous Epith Cells Urine Bacteria Urine Yeast COVID-19 (FLOR) Negative COVID-19 Clin Com See Note 05/04/21 05/04/21 05/04/21 05:18 05:18 07:06 WBC RBC Hgb Hct MCV MCH MCHC RDW Plt Count MPV Immature Gran % (Auto) Neut % (Auto) Lymph % (Auto) [place] % (Auto) Eos % (Auto) Baso % (Auto) Lymph # (Auto) [place] # (Auto) Eos # (Auto) Baso # (Auto) Abs Immat Gran (auto) Absolute Neuts (auto) Absolute Nucleated RBC Nucleated RBC % (auto) Sodium 145 Potassium 4.2 Chloride 107 Carbon Dioxide 24 Anion Gap 18 BUN 10 Creatinine 0.70 Estim Creat Clear Calc 79.0 Estimated GFR > 60 POC Glucose 142 H Random Glucose 129 H Estimat Average Glucose 194 Hemoglobin A1c % 8.4 Calcium 9.3 Urine Color Urine Appearance Urine pH Ur Specific [place] Urine Protein Urine Glucose (UA) Urine Ketones Urine Blood Urine Nitrite Ur Leukocyte Esterase Urine RBC Urine WBC Ur Squamous Epith Cells Urine Bacteria Urine Yeast COVID-19 (FLOR) COVID-19 Clin Com 05/04/21 05/04/21 05/04/21 11:01 15:45 19:57 WBC RBC Hgb Hct MCV MCH MCHC RDW Plt Count MPV Immature Gran % (Auto) Neut % (Auto) Lymph % (Auto) [place] % (Auto) Eos % (Auto) Baso % (Auto) Lymph # (Auto) [place] # (Auto) Eos # (Auto) Baso # (Auto) Abs Immat Gran (auto) Absolute Neuts (auto) Absolute Nucleated RBC Nucleated RBC % (auto) Sodium Potassium Chloride Carbon Dioxide Anion Gap BUN Creatinine Estim Creat Clear Calc Estimated GFR POC Glucose 192 H 169 H 148 H Random Glucose Estimat Average Glucose Hemoglobin A1c % Calcium Urine Color Urine Appearance Urine pH Ur Specific [place] Urine Protein Urine Glucose (UA) Urine Ketones Urine Blood Urine Nitrite Ur Leukocyte Esterase Urine RBC Urine WBC Ur Squamous Epith Cells Urine Bacteria Urine Yeast COVID-19 (FLOR) COVID-19 Clin Com 05/05/21 05/05/21 07:22 10:58 WBC RBC Hgb Hct MCV MCH MCHC RDW Plt Count MPV Immature Gran % (Auto) Neut % (Auto) Lymph % (Auto) [place] % (Auto) Eos % (Auto) Baso % (Auto) Lymph # (Auto) [place] # (Auto) Eos # (Auto) Baso # (Auto) Abs Immat Gran (auto) Absolute Neuts (auto) Absolute Nucleated RBC Nucleated RBC % (auto) Sodium Potassium Chloride Carbon Dioxide Anion Gap BUN Creatinine Estim Creat Clear Calc Estimated GFR POC Glucose 229 H 154 H Random Glucose Estimat Average Glucose Hemoglobin A1c % Calcium Urine Color Urine Appearance Urine pH Ur Specific [place] Urine Protein Urine Glucose (UA) Urine Ketones Urine Blood Urine Nitrite Ur Leukocyte Esterase Urine RBC Urine WBC Ur Squamous Epith Cells Urine Bacteria Urine Yeast COVID-19 (FLOR) COVID-19 Clin Com Mental Status Exam Mental Status Exam Patient Appearance: Well Grooomed Patient Orientation: Person, Place, Time and Situation Level of Consciousness: Drowsy Patient Behavior: Appropriate Mood Description: Calm Affect Description: Calm Speech Pattern: Clear Thought Process: Intact Medications Medications Current Medications Generic Name Dose Route Start Last Admin Trade Name Freq PRN Reason Stop Dose Admin Acetaminophen 650 mg 05/03/21 20:07 05/05/21 10:28 Acetaminophen 325 Mg Tablet PO 650 mg Q6H PRN Administration Pain, Mild (Pain Scale 1-3) Amlodipine Besylate 2.5 mg 05/04/21 09:00 05/05/21 10:28 Amlodipine Besylate 2.5 Mg Tablet PO 2.5 mg DAILY FRANCHESKA Administration Protocol Aspirin 81 mg 05/04/21 09:00 05/05/21 10:30 Aspirin Enteric Coated 81 Mg Tablet. PO 81 mg DAILY FRANCHESKA Administration Atorvastatin Calcium 80 mg 05/04/21 21:00 05/04/21 20:19 Atorvastatin Calcium 80 Mg Tablet PO 80 mg BEDTIME FRANCHESKA Administration Baclofen 10 mg 05/04/21 09:00 05/05/21 14:22 Baclofen 10 Mg Tablet PO 10 mg TID FRANCHESKA Administration Dextrose 25 gm 05/03/21 20:21 Dextrose 50 % 25 Gm/50 Ml Vial IVPUSH Q15M PRN per Hypoglycemia Standing Ord. Protocol Dicyclomine HCl 20 mg 05/04/21 09:00 05/05/21 14:21 Dicyclomine Hcl 10 Mg Capsule PO 20 mg TID FRANCHESKA Administration Donepezil HCl 5 mg 05/04/21 21:00 05/04/21 20:19 Donepezil Hcl 5 Mg Tablet PO 5 mg BEDTIME FRANCHESKA Administration Fluticasone Propionate 1 spray 05/04/21 21:00 05/05/21 11:49 Fluticasone Propionate Nasal 16 Gm Jber NOSTRIL-B Not Given BID [facility] Glucose 15 gm 05/03/21 20:21 Glucose Gel 15 Gm Gel..Gram. PO Q15M PRN per Hypoglycemia Standing Ord. Protocol Heparin Sodium (Porcine) 5,000 unit 05/03/21 21:00 05/05/21 14:19 Heparin Sodium,Porcine 5,000 Unit/Ml Vial SUBCUT 5,000 unit Q8H FRANCHESKA Administration Insulin Glargine 40 unit 05/04/21 21:00 05/04/21 20:30 Insulin Glargine,Hum.Rec.Anlog 100 Unit/Ml 10 Ml Vial SUBCUT 40 unit BEDTIME FRANCHESKA Administration Insulin Human Lispro 0 unit 05/03/21 21:00 05/05/21 13:07 Insulin Lispro 100 Unit/Ml 3 Ml Vial SUBCUT Not Given QIDACHS [facility] Protocol Levofloxacin 500 mg 05/04/21 20:00 05/04/21 20:18 Levofloxacin 500 Mg Tablet PO 500 mg Q24H FRANCHESKA Administration Lidocaine 1 patch 05/05/21 09:00 05/05/21 10:23 Lidocaine 4 % Patch Adh..Patch TRANSDERMA 1 patch DAILY FRANCHESKA Administration Protocol Metoprolol Succinate 25 mg 05/04/21 09:00 05/05/21 10:30 Metoprolol Succinate Er 25 Mg Tab.Er.24h PO 25 mg DAILY FRANCHESKA Administration Protocol Multivitamins/Vitamin C 1 tab 05/04/21 09:00 05/05/21 10:27 Multivitamin Tablet PO 1 tab DAILY [facility]KA Administration Omeprazole 20 mg 05/04/21 16:30 05/05/21 10:31 Omeprazole 20 Mg Capsule.Dr PO 20 mg BID@0630,1630 FRAN[facility]KA Administration Oxybutynin Chloride 15 mg 05/04/21 09:00 05/05/21 10:25 Oxybutynin Chloride Er 5 Mg Tab.Er.24 PO 15 mg DAILY FRANCHESKA Administration Polyethylene Glycol 17 gm 05/04/21 07:54 Polyethylene Glycol 3350 17 Gm Powd.Pack PO DAILY PRN Constipation Quetiapine Fumarate 50 mg 05/04/21 21:00 05/04/21 20:19 Quetiapine Fumarate 50 Mg Tablet PO 50 mg BEDTIME FRANCHSEKA Administration Sodium Chloride 3 ml 05/04/21 00:00 05/05/21 09:13 0.9 % Sodium Chloride Flush 3 Ml Syringe IVFLUSH Not Given QSHIFT FRANCHESKA Tramadol HCl 25 mg 05/04/21 16:25 05/04/21 21:15 Tramadol Hcl 50 Mg Tablet PO 25 mg Q6H PRN Administration pain, severe Valsartan 80 mg 05/04/21 09:00 05/05/21 10:29 Valsartan 80 Mg Tablet PO 80 mg DAILY FRANCHESKA Administration Protocol Allergies Allergies Allergy/AdvReac Type Severity Reaction Status Date / Time Sulfa (Sulfonamide Allergy Severe DIFFICULTY Verified 02/28/21 15:39 Antibiotics) BREATHING [SULFA (SULFONAMIDE ANTIBIOTICS)] cephalexin [From KEFLEX] Allergy Intermediate RASH,HIVES Verified 02/28/21 15:39 amoxicillin [AMOXICILLIN] Allergy Unknown DENIES Verified 02/28/21 15:39 THIS ALLERGY 03/28/2018 penicillin V Allergy Unknown Unknown Verified 02/28/21 15:39 sumatriptan [From IMITREX] AdvReac Severe HEART Verified 02/28/21 15:39 PALPITATIONS topiramate [From TOPAMAX] AdvReac Severe AGITATION Verified 02/28/21 15:39 Assessment & Plan Assessment & Plan (1) Altered mental status: Qualifiers: Altered mental status type: unspecified Qualified Code(s): R41.82 - Altered mental status, unspecified Status: Acute Code(s): R41.82 - Altered mental status, unspecified Assessment and Plan: due to concern for lewy body dementia, would minimize use of high-potency neuroleptics such as haldol if possible. rely on seroquel both for low potency and for data supporting it's decreased association with in dementia patients in comparison to most other neuroleptics. Assessment and Plan: haldol 5 mg IM PRN severe agitation and/or refusal of PO interventions if safety is an issue. seroquel 25 mg PRN agitation. increase HS seroquel to 75 mg in attempt to get pt to sleep through the night. refer for brief yury psych hosp with goal of better control of agitation. Greater than 50% of the session was spent on counseling and/or coordination of care
--- NOTE | 2021-05-05 15:26 | P.PNIM_ITS ---
Subjective Subjective Date of Service: 05/05/21 Interval History: very agitated this am, got IM haloperidol and placed in soft restraints somnolent this am now awake but very restricted affect denies hallucinations per has had fluctuating mental status for several months per Dr Melendez's consult note in July 2020 suspecte Lewy body dementia Review of Systems Review of Systems: Yes all other systems are reviewed and are negative Physical Exam Vital Signs: Vital Signs: Last Vital Signs Temp 97.7 F 05/05/21 10:39 Pulse 69 05/05/21 10:39 Resp 16 05/05/21 10:39 BP 171/77 H 05/05/21 10:39 Pulse Ox 95 05/05/21 10:39 Body Mass Index 33.5 Gen: in no acute distress HEENT: sclera anicteric, moist mucus membranes Neck: supple Lungs: clear to auscultation bilaterally Heart: regular rate and rhythm, no murmurs Abd: soft, non-tender, non-distended Ext: no edema Skin: warm/well-perfused Neuro: alert and oriented x3, no focal findings Psych: appropriate affect Objective Data Active Medications Acetaminophen (Acetaminophen 325 Mg Tablet) 650 mg PO Q6H PRN PRN Reason: Pain, Mild (Pain Scale 1-3) Last Admin: 05/05/21 10:28 Dose: 650 mg Documented by: JOVON Amlodipine Besylate (Amlodipine Besylate 2.5 Mg Tablet) 2.5 mg PO DAILY [facility]; Protocol Last Admin: 05/05/21 10:28 Dose: 2.5 mg Documented by: JOVON Aspirin (Aspirin Enteric Coated 81 Mg Tablet.) 81 mg PO DAILY [facility] Last Admin: 05/05/21 10:30 Dose: 81 mg Documented by: JOVON Atorvastatin Calcium (Atorvastatin Calcium 80 Mg Tablet) 80 mg PO BEDTIME [facility] Last Admin: 05/04/21 20:19 Dose: 80 mg Documented by: LOS Baclofen (Baclofen 10 Mg Tablet) 10 mg PO TID [facility] Last Admin: 05/05/21 14:22 Dose: 10 mg Documented by: JOVON Dextrose (Dextrose 50 % 25 Gm/50 Ml Vial) 25 gm IVPUSH Q15M PRN; Protocol PRN Reason: per Hypoglycemia Standing Ord. Dicyclomine HCl (Dicyclomine Hcl 10 Mg Capsule) 20 mg PO TID [facility] Last Admin: 05/05/21 14:21 Dose: 20 mg Documented by: JOVON Donepezil HCl (Donepezil Hcl 5 Mg Tablet) 5 mg PO BEDTIME [facility] Last Admin: 05/04/21 20:19 Dose: 5 mg Documented by: LOS Fluticasone Propionate (Fluticasone Propionate Nasal 16 Gm [place]) 1 spray NOSTRIL-B BID [facility] Last Admin: 05/05/21 11:49 Dose: Not Given Documented by: JOVON Non-Admin Reason: Patient Refused Glucose (Glucose Gel 15 Gm Gel..Gram.) 15 gm PO Q15M PRN; Protocol PRN Reason: per Hypoglycemia Standing Ord. Heparin Sodium (Porcine) (Heparin Sodium,Porcine 5,000 Unit/Ml Vial) 5,000 unit SUBCUT Q8H [facility] Last Admin: 05/05/21 14:19 Dose: 5,000 unit Documented by: JOVON Insulin Glargine (Insulin Glargine,Hum.Rec.Anlog 100 Unit/Ml 10 Ml Vial) 40 unit SUBCUT BEDTIME [facility] Last Admin: 05/04/21 20:30 Dose: 40 unit Documented by: LOS Insulin Human Lispro (Insulin Lispro 100 Unit/Ml 3 Ml Vial) 0 unit SUBCUT QIDACHS [facility]; Protocol Last Admin: 05/05/21 13:07 Dose: Not Given Documented by: JOVON Non-Admin Reason: ref lunch Levofloxacin (Levofloxacin 500 Mg Tablet) 500 mg PO Q24H [facility] Last Admin: 05/04/21 20:18 Dose: 500 mg Documented by: LOS Lidocaine (Lidocaine 4 % Patch Adh..Patch) 1 patch TRANSDERMA DAILY [facility]; Protocol Last Admin: 05/05/21 10:23 Dose: 1 patch Documented by: JOVON Metoprolol Succinate (Metoprolol Succinate Er 25 Mg Tab.Er.24h) 25 mg PO DAILY [facility]; Protocol Last Admin: 05/05/21 10:30 Dose: 25 mg Documented by: JOVON Multivitamins/Vitamin C (Multivitamin Tablet) 1 tab PO DAILY [facility] Last Admin: 05/05/21 10:27 Dose: 1 tab Documented by: JOVON Omeprazole (Omeprazole 20 Mg [place].) 20 mg PO BID@0630,1630 [facility] Last Admin: 05/05/21 10:31 Dose: 20 mg Documented by: JOVON Oxybutynin Chloride (Oxybutynin Chloride Er 5 Mg Tab.Er.24) 15 mg PO DAILY [facility] Last Admin: 05/05/21 10:25 Dose: 15 mg Documented by: JOVON Polyethylene Glycol (Polyethylene Glycol 3350 17 Gm Powd.Pack) 17 gm PO DAILY PRN PRN Reason: Constipation Quetiapine Fumarate (Quetiapine Fumarate 25 Mg Tablet) 75 mg PO BEDTIME [facility] Quetiapine Fumarate (Quetiapine Fumarate 25 Mg Tablet) 25 mg PO BID PRN PRN Reason: agitation/anxiety Sodium Chloride (0.9 % Sodium Chloride Flush 3 Ml Syringe) 3 ml IVFLUSH QSHIFT [facility] Last Admin: 05/05/21 15:14 Dose: Not Given Documented by: OUMOU Non-Admin Reason: no IV site, MDs aware Tramadol HCl (Tramadol Hcl 50 Mg Tablet) 25 mg PO Q6H PRN PRN Reason: pain, severe Last Admin: 05/04/21 21:15 Dose: 25 mg Documented by: LOS Valsartan (Valsartan 80 Mg Tablet) 80 mg PO DAILY [facility]; Protocol Last Admin: 05/05/21 10:29 Dose: 80 mg Documented by: JOVON Labs CBC & Chem 7: 05/04/21 05:18 05/04/21 05:18 Labs: Laboratory Results - last 24 hr 05/04/21 05/04/21 05/05/21 15:45 19:57 07:22 POC Glucose 169 H 148 H 229 H 05/05/21 10:58 POC Glucose 154 H Assessment and Plan (1) Altered mental status: Status: Acute (2) UTI (urinary tract infection): Status: Acute Assessment and Plan: hospital d#3 65yo F with dementia suspected to be Lewy Body, HTN, HLD, DM2, recurrent UTI + encephalopathy presented with UTI symptoms with HI # AMS - at this point, I do not suspect encephalopathy/delirium but rather underlying dementia # HI - resolved # dementia - continue quetiapine- per psychiatry increase hs dose to 75 mg, will use 25 mg bid prn in addition, avoid haloperidol if possible; continue donepezil; will check QTc interval on EKG # UTI - urine cx contaminated, will resend, on levofloxacin d#3 # HTN - continue amlodipine, valsartan, metoprolol # DM2, A1c 8.4 - basal + correction-dose lispro # VTE ppx - UFH # dispo - per psychiatry needs geriatric psychiatry placement; will consult CARE Team Quality Stroke Does the patient have a stroke diagnosis?: No VTE Prior VTE?: No VTE Risk Level:: Medical - moderate - high VTE Device Contraindication: Treatment Not Indicated VTE Drug Contraindication: N/A - Med Ordered
[2021-05-05 16:08] LABS: Glucose, Whole Blood 179 mg/dL (60-115)
[2021-05-05 20:25] LABS: Glucose, Whole Blood 182 mg/dL (60-115)
[2021-05-05] MEDS: Insulin Glargine,Hum.rec.anlog 100 UNIT/ML 10 ML VIAL 40 UNIT SUBCUT (21:08)
[2021-05-05] MEDS: Atorvastatin Calcium 80 MG TABLET PO (21:09)
[2021-05-05] MEDS: levoFLOXacin 500 MG TABLET PO (21:09)
[2021-05-05] MEDS: QUEtiapine Fumarate 25 MG TABLET 75 MG PO (21:09)
[2021-05-05] MEDS: Donepezil HCl 5 MG TABLET PO (21:09)
[2021-05-05] MEDS: Fluticasone Propionate Nasal 16 GM SPRAY 1 SPRAY NOSTRIL-B (21:10)
[2021-05-06] MEDS: 0.9 % Sodium Chloride Flush 3 ML SYRINGE IVFLUSH ×2 (00:36→10:12)
--- NOTE | 2021-05-06 01:30 | MHC.CARE ---
Pt was evaluated by the CARE team, and disposition is for [facility]. CARE team will f/u tomorrow when placement is secured.
[2021-05-06] MEDS: Omeprazole 20 MG CAPSULE.DR PO (05:34)
[2021-05-06] MEDS: Heparin Sodium,Porcine 5,000 UNIT/ML VIAL 5000 UNIT SUBCUT ×2 (05:34→13:14)
[2021-05-06 07:17] LABS: Glucose, Whole Blood 150 mg/dL (60-115)
[2021-05-06 08:00] VITALS: BP 106/55; PULSE 77; RESP 22; TEMP 36.6; O2SAT 95
[2021-05-06 10:12] VITALS: BP 106/55; PULSE 77
[2021-05-06] MEDS: amLODIPine Besylate 2.5 MG TABLET PO (10:12)
[2021-05-06] MEDS: Lidocaine 4 % Patch ADH..PATCH 1 PATCH TRANSDERMA (10:12)
[2021-05-06] MEDS: Multivitamin TABLET 1 TAB PO (10:12)
[2021-05-06 10:13] VITALS: BP 106/55; PULSE 77
[2021-05-06] MEDS: Aspirin Enteric Coated 81 MG TABLET.DR PO (10:13)
[2021-05-06] MEDS: Baclofen 10 MG TABLET PO ×2 (10:13→13:14)
[2021-05-06] MEDS: Valsartan 80 MG TABLET PO (10:13)
[2021-05-06] MEDS: Metoprolol Succinate ER 25 MG TAB.ER.24H PO (10:13)
[2021-05-06] MEDS: Dicyclomine HCl 10 MG CAPSULE 20 MG PO ×2 (10:13→13:14)
[2021-05-06 10:57] LABS: Glucose, Whole Blood 230 mg/dL (60-115)
[2021-05-06 12:14] VITALS: BP 128/60; PULSE 75; RESP 20; TEMP 36.2; O2SAT 98
--- NOTE | 2021-05-06 13:01 | MHC.CM.PN ---
Per ROUNDS discussion, Patient is medically cleared for dc ; Care Team is following for Inpatient Psych bed for likely LTC. CM will follow.
[2021-05-06] MEDS: Insulin Lispro 100 UNIT/ML 3 ML VIAL SUBCUT (13:14)
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
--- NOTE | 2021-05-06 14:18 | MHC.CM.PN ---
Patient has now been medically cleared for dc to home today, with services. Patient was active with [facility], who has been notified of today's dc. CM met with Patient and at bedside and addressed IMM with them, providing them with the original and placing a copy on the chart. Patient and her are aware of and in agreement with the dc plan to return home today.
--- NOTE | 2021-05-06 15:03 | MHC.CM.PN ---
Per Covering RN's request, CM met with Patient's /HCP to discuss dc planning. explains the Patient does not want to go to the Psych [place] here at [facility] . wanted to discuss the possibility of going directly to the Psych floor, from the ER, should Patient get another UTI and become behavioral again. CM explained that should this situation arise again and if Patient were to require IV ABT for a new UTI, that kind of services is not typically done on a Psych unit (Patient must be medically cleared prior to going to a Psych Unit). stated that he is trying to think ahead, if this were to come up again. stated times 2 that he feels that his is in a good place to go home today and that he is comfortable taking her home today and restarting [facility] services.CM supported stating that he will bring Patient back to the ED should this happen in the future.
[2021-05-06 15:46] VITALS: BP 148/65; PULSE 68; RESP 18; TEMP 36.6; O2SAT 98
== END 2021-05-06 16:30 | disposition home health service (06) | DRG 690 ==
LOC: HO.ED 20:06 → HO.IMC 21:55
PROVIDERS: Family Medicine; Nurse Practitioner Family; Admitting Provider Hospitalist; Emergency Provider Internal Medicine; PCP Internal Medicine; Visit Provider Internal Medicine
DX: N39.0 Urinary tract infection, site not specified (principal); F02.81 Dementia in other diseases classified elsewhere, unspecified severity, with behavioral disturbance; F05 Delirium due to known physiological condition; R45.850 Homicidal ideations; G31.83 Neurocognitive disorder with Lewy bodies; E11.9 Type 2 diabetes mellitus without complications; Z86.73 Personal history of transient ischemic attack (TIA), and cerebral infarction without residual deficits; Z20.822 Contact with and (suspected) exposure to COVID-19; Z88.0 Allergy status to penicillin; Z88.2 Allergy status to sulfonamides; Z79.82 Long term (current) use of aspirin; Z79.4 Long term (current) use of insulin; Z79.899 Other long term (current) drug therapy
CPT/HCPCS: 36415; 73060; 80048; 81001; 82947; 83036; 85025; 87086; 87635; 93005; 96361; 96374; 97162; 99283; 99291; J1956; J2060

== ENCOUNTER 2021-07-20 11:57 | Emergency (ER) | payer MEDICARE, SELFPAY ==
--- NOTE | ~2021-07-20 | CT_ITS ---
EXAMINATION: CT HEAD WITHOUT CONTRAST (STROKE PROTOCOL) CLINICAL INFORMATION: Stroke protocol. Fall. Change in mental status. COMPARISON: CT brain 04/03/2021 TECHNIQUE: Contiguous axial imaging was performed from the skull base to vertex without intravenous administration of contrast. This CT examination was performed using dose optimization techniques as appropriate, variously including the following: *Automated exposure control *Adjustment of mA and/or kV according to patient size (this includes techniques or standardized protocols for targeted exams where dose is matched to indication/reason for exam; i.e. extremities or head) *Use of iterative reconstruction technique DLP: 835 mGy-cm FINDINGS: There is no intracranial hemorrhage, hematoma, or extra-axial fluid collection. The ventricles are symmetrical in size but mildly enlarged. There is no hydrocephalus, edema, or mass effect. The crain-white matter differentiation appears symmetric. There is no acute infarct or mass lesion. The calvarium appears intact. There is no pneumocephalus or orbital emphysema. The visualized sinuses and middle ears and mastoid air cells show no significant mucosal thickening. There are no air-fluid levels. CT/CT head for stroke IMPRESSION: No acute intracranial process seen. There are bilateral occipital lobe old infarctions without hemorrhagic conversion. This critical result was discussed with Dr. Kennedy Rendon at 12:30 hours on 07/20/2021. It was ascertained that the content and urgency of the report was understood at the time of direct communication.
--- NOTE | ~2021-07-20 | XR_ITS ---
EXAMINATION: XR CHEST CLINICAL INFORMATION: Chest pain after fall. Rule out fracture COMPARISON: April 03, 2021 and February 26, 2021 TECHNIQUE: AP portable view of the chest was obtained. FINDINGS: Rotated films of the chest performed. Patient status post placement of Simental rods for upper thoracic scoliosis. On the provided imaging I do not see a hardware fracture. No acute parenchymal disease is noted. No pneumothorax or pleural effusion. The cardiopericardial silhouette is mildly enlarged but which may be projectional in nature. Patient status post previous injury of the acromioclavicular joint with widening of the coracoclavicular joint and elevation of the distal clavicle. Status post previous left humeral fracture. XR/XR chest 1V IMPRESSION: No acute disease. No definite hardware failure identified. Evidence of old trauma as described.
[2021-07-20 12:01] VITALS: BP 210/87; PULSE 91; O2SAT 97
[2021-07-20 12:04] VITALS: BP 113/62; PULSE 78; RESP 18; TEMP 36.6; O2SAT 98; BMI 38.5
--- NOTE | 2021-07-20 12:14 | ECG_ITS ---
Test Reason : STROKE Blood Pressure : / mmHG Vent. Rate : 080 BPM Atrial Rate : 080 BPM P-R Int : 126 ms QRS Dur : 088 ms QT Int : 364 ms P-R-T Axes : 052 050 013 degrees QTc Int : 419 ms Poor data quality Normal sinus rhythm Nonspecific T wave abnormality Abnormal ECG When compared with ECG of 05-MAY-2021 15:41, Inverted T waves have replaced nonspecific T wave abnormality in Inferior leads Referred By: Domenico Rendon Electronically Signed By:JAX ROGERS MD
[2021-07-20 12:53] LABS: MANUAL DIFF FLAG NO
[2021-07-20 12:58] LABS: Basophils Percent Auto 0.3 % (0-2); Eosinophils Absolute Auto 0.1 X10*3/uL (0.0-0.4); Eosinophils Percent Auto 0.7 % (0-4); Hematocrit 40.3 % (37.0-47.0); Hemoglobin 13.6 g/dl (12.0-16.0); Imm Gran Abs Auto 0.04 X10*3/uL (0.00-0.03); Imm Gran Pct Auto 0.4 % (0.0-0.4); Mean Corpuscular HGB Conc 33.7 g/dl (31.0-35.0); Mean Corpuscular Hemoglobin 31.8 pg (27.0-33.0); Mean Corpuscular Volume 94.2 fL (80.0-98.0); Mean Platelet Volume 9.6 fL (9.4-12.3); Monocytes Absolute Auto 0.8 X10*3/uL (0.1-1.2); Monocytes Percent Auto 7.3 % (2-11); Neutrophils Absolute Auto 7.6 x10*3/uL (2.0-8.3); Neutrophils Percent Auto 72.3 % (45-73); Platelet Count 217 X10*3/uL (160-400); Red Blood Count 4.28 X10*6/uL (4.20-5.50); Red Cell Distribution Width 13.8 % (11.0-16.0); White Blood Count 10.6 X10*3/uL (4.8-10.8)
[2021-07-20 13:01] LABS: Prothrombin Time 11.7 SEC (9.9-13.0)
--- NOTE | 2021-07-20 13:02 | PHA.MEDREC ---
Pharmacy Consult ? Medication Reconciliation Pharmacy has completed the medication reconciliation. Patient is historically a poor historian. Contacted [facility] pharmacy to verifty medications. Pharmacy confirmed that dicyclomine was DC'd and oxybutynin was switch to Mybertiq. Chela Mattson, PharmD
[2021-07-20 13:03] LABS: Partial Thromboplastin Time 56.8 SEC (24.1-38.0)
[2021-07-20 13:04] LABS: Stroke Lab Use COMPLETE
[2021-07-20 13:06] LABS: Appearance Urine CLEAR; Color Urine YELLOW; Glucose Urine UA >=1000 MG/DL (NEG); Leukocyte Esterase Urine NEG (NEG); Nitrite Urine NEG (NEG); Specific Gravity - Urine 1.015 (1.005-1.025); Urine Blood NEG (NEG); Urine Ketones NEG (NEG); Urine Protein NEG (NEG-TRACE)
[2021-07-20 13:09] LABS: Ethanol < 10 mg/dL
[2021-07-20 13:12] LABS: Alanine Aminotransferase 16 U/L (0-31); Albumin Level 4.3 g/dL (3.5-5.0); Alkaline Phosphatase 66 U/L (39-117); Anion Gap 14 (12-20); Aspartate Amino Transferase 13 U/L (5-31); Bilirubin Direct 0.2 mg/dL (0.0-0.5); Bilirubin Total 0.3 mg/dL (0.0-1.0); Blood Urea Nitrogen 17 mg/dL (9-16); Calcium 9.8 mg/dL (8.4-10.2); Carbon Dioxide 22 mmol/L (22-29); Chloride 108 mmol/L (96-108); Creatinine Clr Calc Pharmacy 61.6; Estimated Glomerular Filt Rate > 60; Glucose Random 324 mg/dL (60-115); Potassium 3.8 mmol/L (3.3-5.1); Sodium 140 mmol/L (135-145)
[2021-07-20 13:15] LABS: Troponin-I High Sensitivity 3.7 ng/L (<3.5-17.0)
[2021-07-20 13:22] LABS: RBC Urine 0-2 /HPF (0); Squamous Epithelial Cell Urine TRACE /LPF
--- NOTE | 2021-07-20 13:30 | PC.NURSE ---
Patient arrives to ED from home with by EMS. Patient having increased AMS. Fell this morning, skin tear on nose. Patient unable to answer questions apporpiatly. States her birthday to answer most questions. A+O x self. Unable to sit still. Unable to follow commands. VSS. Labs drawn and sent. IV placed and flushed. EKG done. Patient straight cath. for urine sample. Dysphasia screen complete. Patient NPO.
[2021-07-20 14:35] VITALS: BP 138/55; PULSE 83; RESP 19; TEMP 36.8; O2SAT 96
[2021-07-20 14:43] LABS: Glucose, Whole Blood 344 mg/dL (60-115)
--- NOTE | 2021-07-20 14:48 | ED_ITS ---
HPI - Neuro Symptoms/Deficit General Chief Complaint: Neuro Symptoms/Deficit Stated Complaint: AMS S/P FALL Time Seen by Provider: 07/20/21 12:06 Source: family (, Ant), EMS and RN notes reviewed Mode of arrival: EMS Limitations: altered mental status History of Present Illness HPI Narrative: 65-year-old female who was brought to the emergency department by ambulance for evaluation of altered mental status after a fall at home. Paramedics reported that the patient fell down stairs however I got a different story from the patient's . According to her , the patient got up this morning and fell in her room. The heard the fall and found the patient lying on the floor. She looked like she was in pain therefore he called an ambulance. The states that the patient is blind but is able to walk and get around at home without difficulty. The patient does have dementia and is often confused and has difficulty communicating. The states that the patient was awake and alert lying on the floor and did not appear to lose consciousness. He states that was in her usual state of health until the fall. Related Data Home Medications Medication Instructions Recorded Confirmed donepezil 5 mg tablet 5 mg PO BEDTIME 03/28/21 07/20/21 insulin lispro 100 unit/mL 2 - 14 unit SUBCUT TIDAC 03/28/21 07/20/21 subcutaneous pen (Humalog KwikPen (U-100) Insulin) valsartan 80 mg tablet 80 mg PO DAILY 03/28/21 07/20/21 multivitamin 1 tab PO DAILY 04/04/21 07/20/21 hydrochlorothiazide 12.5 mg capsule 1 cap PO DAILY 05/03/21 07/20/21 ipratropium bromide 21 mcg (0.03 2 spray INTRANASAL BID PRN 05/03/21 07/20/21 %) nasal spray meclizine 25 mg tablet 1 tab PO BID PRN 05/03/21 07/20/21 quetiapine 25 mg tablet 20 mg PO BEDTIME 05/03/21 07/20/21 acetaminophen 500 mg tablet 2 tab PO DAILY PRN 07/20/21 07/20/21 amlodipine 5 mg tablet 1 tab PO QAM 07/20/21 07/20/21 baclofen 10 mg tablet 10 mg PO TID PRN 07/20/21 07/20/21 mirabegron 25 mg tablet,extended 1 tab PO QAM 07/20/21 07/20/21 release 24 hr (Myrbetriq) Previous Rx's Medication Instructions Recorded insulin glargine 100 unit/mL (3 40 unit (0.4 mL) SUBCUT BEDTIME 30 08/04/20 mL) subcutaneous pen (Lantus Days #10 ml Solostar U-100 Insulin) pantoprazole 40 mg tablet,delayed 40 mg PO BID@0630,1630 30 Days #30 08/04/20 release tab aspirin 81 mg tablet,delayed 81 mg PO DAILY #90 tab 02/28/21 release (Adult Low Dose Aspirin) metoprolol succinate 25 mg 25 mg PO DAILY 30 Days #30 tab 02/28/21 tablet,extended release 24 hr atorvastatin 80 mg tablet 80 mg PO BEDTIME 30 Days #30 tab 04/05/21 Allergies Allergy/AdvReac Type Severity Reaction Status Date / Time Sulfa (Sulfonamide Allergy Severe DIFFICULTY Verified 02/28/21 15:39 Antibiotics) BREATHING [SULFA (SULFONAMIDE ANTIBIOTICS)] cephalexin [From KEFLEX] Allergy Intermediate RASH,HIVES Verified 02/28/21 15:39 amoxicillin [AMOXICILLIN] Allergy Unknown DENIES Verified 02/28/21 15:39 THIS ALLERGY 03/28/2018 penicillin V Allergy Unknown Unknown Verified 02/28/21 15:39 sumatriptan [From IMITREX] AdvReac Severe HEART Verified 02/28/21 15:39 PALPITATIONS topiramate [From TOPAMAX] AdvReac Severe AGITATION Verified 02/28/21 15:39 Review of Systems Review of Systems: Yes Unobtainable due to mental status [facility] Past Medical History Medical History Anxiety Asthma CHF (congestive heart failure) Cortical blindness Diabetes Diabetic acetonemia Dyspnea on exertion Essential hypertension HTN (hypertension) Myalgia and myositis Neuropathy Nocturnal hypoxemia Obesity (BMI 30-39.9) Orthopnea Restrictive lung disease 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 Mother Angina at rest Sister Lung cancer Colon cancer COPD (chronic obstructive pulmonary disease) Social History Social History Household Members: Spouse Housing: Apartment Do you presently have visiting nurse or other home services: Yes (1X/wk) Unable to assess alcohol history related to: Refusing to respond Alcohol intake: unknown Patient Tobacco Use Status: Never used Tobacco e-Cigarette/Vaping Use: Never Used Second Hand Smoke Exposure: No Advance Directives: Yes Advance Directives on File: Yes Advance Directives Date on File: 07/27/20 service: No Current occupational status: unemployed and disabled Current occupation: right handed Sexual orientation: Straight/Heterosexual Physical Exam Vital Signs: Vital Signs: Last Vital Signs Temp 98.2 F 07/20/21 14:35 Pulse 83 07/20/21 14:35 Resp 19 07/20/21 14:35 BP 138/55 L 07/20/21 14:35 Pulse Ox 96 07/20/21 14:35 Body Mass Index 38.5 Const: Other: Awake, alert female, patient has an abrasion to the bridge of h er nose, she repeats her date, she does say yes and no but off that not to the right questions. She does not appear to be in distress HENMT: Head: Yes normal to inspection, Yes normocephalic and Yes atraumatic Ears: external ears normal General nose exam: Normal external nose present Face and sinus: Yes normal facial exam Mouth: Normal oral and palatal mucosa present Throat: Yes posterior oropharynx normal Eyes: General: appearance normal, both eyes and all related structures Pupils: Equal, round and reactive pupils present Neck: Neck: Yes normal visual inspection, Yes no lymphadenopathy, Yes trachea midline and Yes supple Chest: Chest palpation & inspection: normal inspection of the chest and normal palpation of entire chest wall Resp: Effort & Inspection: normal respiratory effort and able to speak in complete sentences Auscultation: clear to auscultation bilaterally Cardio: Rate: regular rate Rhythm: regular rhythm Heart sounds: S1 normal heart sound present, S2 normal heart sound present and no murmurs GI: Inspection: Yes normal to inspection Palpation (GI): Soft to palpation, nontender and no guarding Auscultation: normal bowel sounds : General: Yes no CVA tenderness Back/Spine/Pelvis: Back: no CVA tenderness Skin: General skin exam: no rashes or lesions noted Neuro: Cranial nerves: Yes CN's II-XII intact bilaterally and Yes Equal, round and reactive pupils present Motor exam (neuro): 5/5 motor strength present throughout Extrem: General: Yes normal to inspection Course Course Course Narrative: 65-year-old female who had an unwitnessed fall in her bedroom. The heard the fall and found the patient lying on the floor the, awake . He was concerned that she had injured herself from the fall and called the ambulance and the patient was transported to the emergency department. On presentation, I was concerned the patient may have had a closed head injury, bleed, stroke therefore she was may a stroke protocol. CT scan of the brain is consistent with old a occipital infarcts with no acute findings. Patient's laboratory evaluation including urinalysis was unremarkable. The patient was able to walk here in the emergency department. I did discuss the patient's findings with her and he states that he can come to the hospital in pick the patient up and take her home. MDM - Neuro Symptoms/Deficit Lab Data Result diagrams: 07/20/21 12:49 07/20/21 12:49 Labs: Lab Results 07/20/21 07/20/21 07/20/21 Range/Units 12:07 12:49 12:49 WBC 10.6 (4.8-10.8) X10*3/uL RBC 4.28 (4.20-5.50) X10*6/uL Hgb 13.6 (12.0-16.0) g/dl Hct 40.3 (37.0-47.0) % MCV 94.2 (80.0-98.0) fL MCH 31.8 (27.0-33.0) pg MCHC 33.7 (31.0-35.0) g/dl RDW 13.8 (11.0-16.0) % Plt Count 217 (160-400) X10*3/uL MPV 9.6 (9.4-12.3) fL Immature Gran % (Auto) 0.4 (0.0-0.4) % Neut % (Auto) 72.3 (45-73) % Lymph % (Auto) 19.0 L (20-40) % [place] % (Auto) 7.3 (2-11) % Eos % (Auto) 0.7 (0-4) % Baso % (Auto) 0.3 (0-2) % Lymph # (Auto) 2.0 (1.2-4.9) X10*3/uL [place] # (Auto) 0.8 (0.1-1.2) X10*3/uL Eos # (Auto) 0.1 (0.0-0.4) X10*3/uL Baso # (Auto) 0.0 (0.0-0.2) X10*3/uL Abs Immat Gran (auto) 0.04 H (0.00-0.03) X10*3/uL Absolute Neuts (auto) 7.6 (2.0-8.3) x10*3/uL Absolute Nucleated RBC 0.000 (0.0-0.012) X10*3/uL Nucleated RBC % (auto) 0.0 (0.0-0.2) /100WBC PT 11.7 (9.9-13.0) SEC INR 1.0 (0.9-1.1) APTT 56.8 H (24.1-38.0) SEC Sodium (135-145) mmol/L Potassium (3.3-5.1) mmol/L Chloride (96-108) mmol/L Carbon Dioxide (22-29) mmol/L Anion Gap (12-20) BUN (9-16) mg/dL Creatinine (0.5-1.4) mg/dL Estim Creat Clear Calc Estimated GFR POC Glucose 344 H (60-115) mg/dL Random Glucose (60-115) mg/dL Calcium (8.4-10.2) mg/dL Total Bilirubin (0.0-1.0) mg/dL Direct Bilirubin (0.0-0.5) mg/dL AST (5-31) U/L ALT (0-31) U/L Alkaline Phosphatase (39-117) U/L Total Creatine Kinase (26-140) U/L Troponin I High Sens (<3.5-17.0) ng/L Total Protein (6.5-8.0) g/dL Albumin (3.5-5.0) g/dL Urine Color Urine Appearance Urine pH (5.0-8.0) Ur Specific [place] (1.005-1.025) Urine Protein (NEG-TRACE) MG/DL Urine Glucose (UA) (NEG) MG/DL Urine Ketones (NEG) MG/DL Urine Blood (NEG) Urine Nitrite (NEG) Ur Leukocyte Esterase (NEG) Urine RBC (0) /HPF Urine WBC (0-4) /HPF Ur Squamous Epith Cells /LPF Urine Bacteria /LPF Ethyl Alcohol mg/dL 07/20/21 07/20/21 07/20/21 Range/Units 12:49 12:49 12:49 WBC (4.8-10.8) X10*3/uL RBC (4.20-5.50) X10*6/uL Hgb (12.0-16.0) g/dl Hct (37.0-47.0) % MCV (80.0-98.0) fL MCH (27.0-33.0) pg MCHC (31.0-35.0) g/dl RDW (11.0-16.0) % Plt Count (160-400) X10*3/uL MPV (9.4-12.3) fL Immature Gran % (Auto) (0.0-0.4) % Neut % (Auto) (45-73) % Lymph % (Auto) (20-40) % [place] % (Auto) (2-11) % Eos % (Auto) (0-4) % Baso % (Auto) (0-2) % Lymph # (Auto) (1.2-4.9) X10*3/uL [place] # (Auto) (0.1-1.2) X10*3/uL Eos # (Auto) (0.0-0.4) X10*3/uL Baso # (Auto) (0.0-0.2) X10*3/uL Abs Immat Gran (auto) (0.00-0.03) X10*3/uL Absolute Neuts (auto) (2.0-8.3) x10*3/uL Absolute Nucleated RBC (0.0-0.012) X10*3/uL Nucleated RBC % (auto) (0.0-0.2) /100WBC PT (9.9-13.0) SEC INR (0.9-1.1) APTT (24.1-38.0) SEC Sodium 140 (135-145) mmol/L Potassium 3.8 (3.3-5.1) mmol/L Chloride 108 (96-108) mmol/L Carbon Dioxide 22 (22-29) mmol/L Anion Gap 14 (12-20) BUN 17 H D (9-16) mg/dL Creatinine 0.93 (0.5-1.4) mg/dL Estim Creat Clear Calc 61.6 Estimated GFR > 60 POC Glucose (60-115) mg/dL Random Glucose 324 H (60-115) mg/dL Calcium 9.8 (8.4-10.2) mg/dL Total Bilirubin 0.3 (0.0-1.0) mg/dL Direct Bilirubin 0.2 (0.0-0.5) mg/dL AST 13 (5-31) U/L ALT 16 (0-31) U/L Alkaline Phosphatase 66 (39-117) U/L Total Creatine Kinase 211 H (26-140) U/L Troponin I High Sens 3.7 (<3.5-17.0) ng/L Total Protein 7.0 (6.5-8.0) g/dL Albumin 4.3 (3.5-5.0) g/dL Urine Color Urine Appearance Urine pH (5.0-8.0) Ur Specific [place] (1.005-1.025) Urine Protein (NEG-TRACE) MG/DL Urine Glucose (UA) (NEG) MG/DL Urine Ketones (NEG) MG/DL Urine Blood (NEG) Urine Nitrite (NEG) Ur Leukocyte Esterase (NEG) Urine RBC (0) /HPF Urine WBC (0-4) /HPF Ur Squamous Epith Cells /LPF Urine Bacteria /LPF Ethyl Alcohol < 10 mg/dL 07/20/21 Range/Units 12:59 WBC (4.8-10.8) X10*3/uL RBC (4.20-5.50) X10*6/uL Hgb (12.0-16.0) g/dl Hct (37.0-47.0) % MCV (80.0-98.0) fL MCH (27.0-33.0) pg MCHC (31.0-35.0) g/dl RDW (11.0-16.0) % Plt Count (160-400) X10*3/uL MPV (9.4-12.3) fL Immature Gran % (Auto) (0.0-0.4) % Neut % (Auto) (45-73) % Lymph % (Auto) (20-40) % [place] % (Auto) (2-11) % Eos % (Auto) (0-4) % Baso % (Auto) (0-2) % Lymph # (Auto) (1.2-4.9) X10*3/uL [place] # (Auto) (0.1-1.2) X10*3/uL Eos # (Auto) (0.0-0.4) X10*3/uL Baso # (Auto) (0.0-0.2) X10*3/uL Abs Immat Gran (auto) (0.00-0.03) X10*3/uL Absolute Neuts (auto) (2.0-8.3) x10*3/uL Absolute Nucleated RBC (0.0-0.012) X10*3/uL Nucleated RBC % (auto) (0.0-0.2) /100WBC PT (9.9-13.0) SEC INR (0.9-1.1) APTT (24.1-38.0) SEC Sodium (135-145) mmol/L Potassium (3.3-5.1) mmol/L Chloride (96-108) mmol/L Carbon Dioxide (22-29) mmol/L Anion Gap (12-20) BUN (9-16) mg/dL Creatinine (0.5-1.4) mg/dL Estim Creat Clear Calc Estimated GFR POC Glucose (60-115) mg/dL Random Glucose (60-115) mg/dL Calcium (8.4-10.2) mg/dL Total Bilirubin (0.0-1.0) mg/dL Direct Bilirubin (0.0-0.5) mg/dL AST (5-31) U/L ALT (0-31) U/L Alkaline Phosphatase (39-117) U/L Total Creatine Kinase (26-140) U/L Troponin I High Sens (<3.5-17.0) ng/L Total Protein (6.5-8.0) g/dL Albumin (3.5-5.0) g/dL Urine Color YELLOW Urine Appearance CLEAR Urine pH 6.0 (5.0-8.0) Ur Specific [place] 1.015 (1.005-1.025) Urine Protein NEG (NEG-TRACE) MG/DL Urine Glucose (UA) >=1000 H (NEG) MG/DL Urine Ketones NEG (NEG) MG/DL Urine Blood NEG (NEG) Urine Nitrite NEG (NEG) Ur Leukocyte Esterase NEG (NEG) Urine RBC 0-2 (0) /HPF Urine WBC 1-4 (0-4) /HPF Ur Squamous Epith Cells TRACE /LPF Urine Bacteria NONE /LPF Ethyl Alcohol mg/dL Critical Care Time Critical Care Time Total Critical Care Time: 35 Attestation: Critical Care: The patient was critically ill with a high probability of imminent or life threatening deterioration. I spent greater than 30 minutes of discontinuous time evaluating the patient,delivering critical care at the bedside, discussing and evaluating pertinent data with consultants. Critical care time does not include time spent performing separately billable procedures or teaching. Total time spent performing critical care was 35 minutes. Discharge Plan Discharge Clinical Impression: Fall, Altered mental status, Abrasion of nose Patient Disposition: Home, Self-Care Instructions: Abrasion (ED), Head Injury (ED) Additional Instructions: The CT scan of your brain did not reveal any new strokes, fractures of your skull or bleeding in the brain. Your blood work was unremarkable. Your urine test was negative for an infection. Apply bacitracin twice a day to your nose for 1 week. Take Tylenol (acetaminophen) 500 mg pills, 2 pills every 4 to 6 hours as needed for pain. Follow-up with your doctor in 2 days. Please return to the emergency department if your symptoms get worse or if you develop any symptoms that are concerning to you. Prescriptions: No Action pantoprazole 40 mg tablet,delayed release (DR/EC) 40 mg PO BID@0630,1630 30 Days Qty: 30 RF: 0 Lantus Solostar U-100 Insulin 100 unit/mL (3 mL) insulin pen 40 unit subcut BEDTIME 30 Days Qty: 10 RF: 0 valsartan 80 mg tablet 80 mg PO DAILY RF: 0 insulin lispro [Humalog KwikPen Insulin] 100 unit/mL insulin pen 2 - 14 unit subcut TIDAC RF: 0 donepezil 5 mg tablet 5 mg PO BEDTIME RF: 0 multivitamin Tablet 1 tab PO DAILY RF: 0 atorvastatin 80 mg Tablet 80 mg PO BEDTIME 30 Days Qty: 30 RF: 0 quetiapine 25 mg tablet 20 mg PO BEDTIME RF: 0 meclizine 25 mg tablet 1 tab PO BID PRN (Reason: Dizziness) RF: 0 hydrochlorothiazide 12.5 mg capsule 1 cap PO DAILY RF: 0 ipratropium bromide 21 mcg (0.03 %) spray,non-aerosol 2 spray intranasal BID PRN (Reason: Allergy Symptoms) RF: 0 amlodipine 5 mg tablet 1 tab PO QAM RF: 0 acetaminophen 500 mg tablet 2 tab PO DAILY PRN (Reason: Pain) RF: 0 Myrbetriq 25 mg tablet extended release 24 hr 1 tab PO QAM RF: 0 baclofen 10 mg tablet 10 mg PO TID PRN (Reason: Muscle Spasm) RF: 0 aspirin [Adult Low Dose Aspirin] 81 mg tablet,delayed release (DR/EC) 81 mg PO DAILY Qty: 90 RF: 1 metoprolol succinate 25 mg tablet extended release 24 hr 25 mg PO DAILY 30 Days Qty: 30 RF: 5
--- NOTE | 2021-07-20 15:38 | MHC.STROKE ---
1215 NOTIFIED BY ED OF STROKE PROTOCOL FALL, DIRECT TO CT, NO BLEED. PATIENT KNOWN TO STROKE SERVICE, DISCUSSED CASE WITH DR VILLEDA. REVIEWED MEDICAL HISTORY, RECENT STROKE ADMISSION ON 03/30/21 FOR [facility] OCCIPITAL STROKES. ADVANCED DEMENTIA, SHE KEEPS REPEATING HERSELF, PSYCH ADMISSIONS. NO FOCAL NEURO DEFICITS. [facility] CORTICAL BLINDNESS. ENCEPHALOPATHY , SEE DR VILLEDA'S NOTE.
== END 2021-07-20 16:58 | disposition home or self-care (01) ==
PROVIDERS: Emergency Provider Emergency Medicine Emergency Medical Services; PCP Internal Medicine
DX: R41.82 Altered mental status, unspecified (principal); S00.31XA Abrasion of nose, initial encounter; I11.0 Hypertensive heart disease with heart failure; I50.9 Heart failure, unspecified; E11.9 Type 2 diabetes mellitus without complications; H54.7 Unspecified visual loss; W19.XXXA Unspecified fall, initial encounter; Y93.9 Activity, unspecified; Y92.003 Bedroom of unspecified non-institutional (private) residence as the place of occurrence of the external cause; Y99.9 Unspecified external cause status; Z86.73 Personal history of transient ischemic attack (TIA), and cerebral infarction without residual deficits; Z79.4 Long term (current) use of insulin; Z79.899 Other long term (current) drug therapy
CPT/HCPCS: 36415; 70450; 71045; 80048; 80076; 81001; 82077; 82550; 82947; 84484; 85025; 85610; 85730; 93005; 99284; 99291

== ENCOUNTER 2021-07-29 17:22 | Emergency (ER) | payer MEDICARE, SELFPAY ==
--- NOTE | ~2021-07-29 | CT_ITS ---
EXAMINATION: CT HEAD WITHOUT CONTRAST CLINICAL INFORMATION: Altered mental status. Recent CVA. COMPARISON: Head CT 07/20/2021 TECHNIQUE: Contiguous axial imaging was performed from the skull base to vertex without intravenous administration of contrast. Today's examination is limited secondary to motion artifact. This CT examination was performed using dose optimization techniques as appropriate, variously including the following: *Automated exposure control *Adjustment of mA and/or kV according to patient size (this includes techniques or standardized protocols for targeted exams where dose is matched to indication/reason for exam; i.e. extremities or head) *Use of iterative reconstruction technique DLP: 1285 mGy-cm FINDINGS: There is no evidence of acute intracranial hemorrhage or territorial infarction. No abnormal mass effect or midline shift is appreciated. [place]-white differentiation is well preserved. No extra-axial fluid collections. The ventricular system and cortical sulci are prominent, consistent with volume loss. There are areas of low density in the periventricular and subcortical white matter, most consistent with sequelae of microvascular ischemic change. Old bilateral occipital lobe infarcts again demonstrated. The osseous structures and soft tissues are normal. There are calcifications of the cavernous internal carotid arteries. The visualized paranasal sinuses and mastoid air cells are well aerated. CT/CT head/brain wo con IMPRESSION: Old occipital infarcts and microvascular ischemic changes with no CT evidence of acute intracranial abnormality.
--- NOTE | ~2021-07-29 | XR_ITS ---
EXAMINATION: XR CHEST CLINICAL INFORMATION: Altered mental status COMPARISON: Chest x-ray 07/20/2021 TECHNIQUE: Frontal view of the chest was obtained. FINDINGS: Stable cardiac silhouette. Hypoinflated lungs. No gross lobar consolidation. No pleural effusion or pneumothorax. Extensive hardware of the thoracic spine again demonstrated. XR/XR chest 1V IMPRESSION: Hypoinflated lungs without acute pulmonary pathology.
--- NOTE | 2021-07-29 17:29 | ED_ITS ---
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 Per EMS patient says since 21:00 patient is confused again not sure whether patient is weak on 1 side or not but per EMS patient's left side was weaker than the right. Patient is speaking few words only with partial blindness no fever no vomiting complaining of mild headache on the right side alert and awake slow to respond Related Data Home Medications Medication Instructions Recorded Confirmed donepezil 5 mg tablet 5 mg PO BEDTIME 03/28/21 07/20/21 insulin lispro 100 unit/mL 2 - 14 unit SUBCUT TIDAC 03/28/21 07/20/21 subcutaneous pen (Humalog KwikPen (U-100) Insulin) valsartan 80 mg tablet 80 mg PO DAILY 03/28/21 07/20/21 multivitamin 1 tab PO DAILY 04/04/21 07/20/21 hydrochlorothiazide 12.5 mg capsule 1 cap PO DAILY 05/03/21 07/20/21 ipratropium bromide 21 mcg (0.03 2 spray INTRANASAL BID PRN 05/03/21 07/20/21 %) nasal spray meclizine 25 mg tablet 1 tab PO BID PRN 05/03/21 07/20/21 quetiapine 25 mg tablet 20 mg PO BEDTIME 05/03/21 07/20/21 acetaminophen 500 mg tablet 2 tab PO DAILY PRN 07/20/21 07/20/21 amlodipine 5 mg tablet 1 tab PO QAM 07/20/21 07/20/21 baclofen 10 mg tablet 10 mg PO TID PRN 07/20/21 07/20/21 mirabegron 25 mg tablet,extended 1 tab PO QAM 07/20/21 07/20/21 release 24 hr (Myrbetriq) Previous Rx's Medication Instructions Recorded insulin glargine 100 unit/mL (3 40 unit (0.4 mL) SUBCUT BEDTIME 30 08/04/20 mL) subcutaneous pen (Lantus Days #10 ml Solostar U-100 Insulin) pantoprazole 40 mg tablet,delayed 40 mg PO BID@0630,1630 30 Days #30 08/04/20 release tab aspirin 81 mg tablet,delayed 81 mg PO DAILY #90 tab 02/28/21 release (Adult Low Dose Aspirin) metoprolol succinate 25 mg 25 mg PO DAILY 30 Days #30 tab 02/28/21 tablet,extended release 24 hr atorvastatin 80 mg tablet 80 mg PO BEDTIME 30 Days #30 tab 04/05/21 Allergies Allergy/AdvReac Type Severity Reaction Status Date / Time Sulfa (Sulfonamide Allergy Severe DIFFICULTY Verified 02/28/21 15:39 Antibiotics) BREATHING [SULFA (SULFONAMIDE ANTIBIOTICS)] cephalexin [From KEFLEX] Allergy Intermediate RASH,HIVES Verified 02/28/21 15:39 amoxicillin [AMOXICILLIN] Allergy Unknown DENIES Verified 02/28/21 15:39 THIS ALLERGY 03/28/2018 penicillin V Allergy Unknown Unknown Verified 02/28/21 15:39 sumatriptan [From IMITREX] AdvReac Severe HEART Verified 02/28/21 15:39 PALPITATIONS topiramate [From TOPAMAX] AdvReac Severe AGITATION Verified 02/28/21 15:39 Review of Systems Review of Systems: Yes all other systems are reviewed and are negative PMFSH Past Medical History Medical History Anxiety Asthma CHF (congestive heart failure) Cortical blindness Diabetes Diabetic acetonemia Dyspnea on exertion Essential hypertension HTN (hypertension) Myalgia and myositis Neuropathy Nocturnal hypoxemia Obesity (BMI 30-39.9) Orthopnea Restrictive lung disease 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 Mother Angina at rest Sister Lung cancer Colon cancer COPD (chronic obstructive pulmonary disease) Social History Social History Household Members: Spouse Housing: Apartment Do you presently have visiting nurse or other home services: Yes (1X/wk) Unable to assess alcohol history related to: Refusing to respond Alcohol intake: unknown Patient Tobacco Use Status: Never used Tobacco e-Cigarette/Vaping Use: Never Used Second Hand Smoke Exposure: No Use of substances other than those prescribed or required for medical reasons: Unknown Advance Directives: Yes Advance Directives on File: Yes Advance Directives Date on File: 07/27/20 service: No Current occupational status: unemployed and disabled Current occupation: right handed Sexual orientation: Straight/Heterosexual Physical Exam Vital Signs: Vital Signs: Last Vital Signs Temp 98.4 F 07/29/21 17:35 Pulse 69 07/29/21 23:06 Resp 13 07/29/21 23:06 BP 111/57 L 07/29/21 23:06 Pulse Ox 99 07/29/21 23:06 Body Mass Index 34.0 Appearance: Alert. Oriented x2. No acute distress. Slow to respond Eyes: Legally blind ENT: Pharynx normal. Oral Mucosa moist Neck: Normal inspection. Neck supple. CVS: Normal heart rate and rhythm. Pulses normal. Respiratory: No respiratory distress. Equal air entry bilateral, no whee zing/rales/rhonchi Abdomen: Soft and nontender. Bowel sounds are present, no mass palpable, no CVA tenderness Skin: Skin warm and dry. Normal skin color. Normal skin turgor. Extremities: No lower extremity edema. No calf tenderness Neuro: Oriented X 3. No motor deficit. No sensory deficit.No cerebellar signs , cranial nerves II-XII intact generalized weakness++ MDM - Altered Mental Status MDM Narrative Medical decision making narrative: Patient with increased confusion for last 24 hours and weakness not eating much all day today workup is negative for any acute stroke no focal weakness suggestive of severe and try to ambulate patient was very unsteady on her feet. Initial lactic acid level was high at 3.6 with normal pre calcitonin level after IV fluids lactic acid level back to normal likely from volume loss type B lactic acidosis at this time there is no source of infection. Case Management was consulted plan to place the patient for short-term rehab. Patient did improve in alertness and orientation more awake during stay in the ER Medical Records Attestation: I reviewed the patient's medical records. Lab Data Attestation: I reviewed the patient's lab results. Result diagrams: 07/29/21 18:17 07/29/21 18:17 Labs: Lab Results 07/29/21 07/29/21 07/29/21 Range/Units 18:04 18:17 18:17 WBC 11.8 H (4.8-10.8) X10*3/uL RBC 3.95 L (4.20-5.50) X10*6/uL Hgb 12.8 (12.0-16.0) g/dl Hct 37.3 (37.0-47.0) % MCV 94.4 (80.0-98.0) fL MCH 32.4 (27.0-33.0) pg MCHC 34.3 (31.0-35.0) g/dl RDW 14.2 (11.0-16.0) % Plt Count 231 (160-400) X10*3/uL MPV 9.5 (9.4-12.3) fL Immature Gran % (Auto) 0.4 (0.0-0.4) % Neut % (Auto) 74.6 H (45-73) % Lymph % (Auto) 17.1 L (20-40) % [place] % (Auto) 7.3 (2-11) % Eos % (Auto) 0.3 (0-4) % Baso % (Auto) 0.3 (0-2) % Lymph # (Auto) 2.0 (1.2-4.9) X10*3/uL [place] # (Auto) 0.9 (0.1-1.2) X10*3/uL Eos # (Auto) 0.0 (0.0-0.4) X10*3/uL Baso # (Auto) 0.0 (0.0-0.2) X10*3/uL Abs Immat Gran (auto) 0.05 H (0.00-0.03) X10*3/uL Absolute Neuts (auto) 8.8 H (2.0-8.3) x10*3/uL Absolute Nucleated RBC 0.000 (0.0-0.012) X10*3/uL Nucleated RBC % (auto) 0.0 (0.0-0.2) /100WBC PT 11.6 (9.9-13.0) SEC INR 1.0 (0.9-1.1) D-Dimer High Sensitivty < 150 NG/ML Sodium (135-145) mmol/L Potassium (3.3-5.1) mmol/L Chloride (96-108) mmol/L Carbon Dioxide (22-29) mmol/L Anion Gap (12-20) BUN (9-16) mg/dL Creatinine (0.5-1.4) mg/dL Estim Creat Clear Calc Estimated GFR POC Glucose 254 H (60-115) mg/dL Random Glucose (60-115) mg/dL Lactic Acid (0.5-2.0) mmol/L Lactic Acid Fup @ 2Hr (0.5-2.0) mmol/L Calcium (8.4-10.2) mg/dL Magnesium (1.6-2.6) mg/dL Total Bilirubin (0.0-1.0) mg/dL AST (5-31) U/L ALT (0-31) U/L Alkaline Phosphatase (39-117) U/L Total Protein (6.5-8.0) g/dL Albumin (3.5-5.0) g/dL Procalcitonin ng/mL Urine Color Urine Appearance Urine pH (5.0-8.0) Ur Specific [place] (1.005-1.025) Urine Protein (NEG-TRACE) MG/DL Urine Glucose (UA) (NEG) MG/DL Urine Ketones (NEG) MG/DL Urine Blood (NEG) Urine Nitrite (NEG) Ur Leukocyte Esterase (NEG) Urine RBC (0) /HPF Urine WBC (0-4) /HPF Ur Squamous Epith Cells /LPF Urine Bacteria /LPF COVID-19 (FLOR) (Negative) COVID-19 Clin Com 07/29/21 07/29/21 07/29/21 Range/Units 18:17 18:17 18:17 WBC (4.8-10.8) X10*3/uL RBC (4.20-5.50) X10*6/uL Hgb (12.0-16.0) g/dl Hct (37.0-47.0) % MCV (80.0-98.0) fL MCH (27.0-33.0) pg MCHC (31.0-35.0) g/dl RDW (11.0-16.0) % Plt Count (160-400) X10*3/uL MPV (9.4-12.3) fL Immature Gran % (Auto) (0.0-0.4) % Neut % (Auto) (45-73) % Lymph % (Auto) (20-40) % [place] % (Auto) (2-11) % Eos % (Auto) (0-4) % Baso % (Auto) (0-2) % Lymph # (Auto) (1.2-4.9) X10*3/uL [place] # (Auto) (0.1-1.2) X10*3/uL Eos # (Auto) (0.0-0.4) X10*3/uL Baso # (Auto) (0.0-0.2) X10*3/uL Abs Immat Gran (auto) (0.00-0.03) X10*3/uL Absolute Neuts (auto) (2.0-8.3) x10*3/uL Absolute Nucleated RBC (0.0-0.012) X10*3/uL Nucleated RBC % (auto) (0.0-0.2) /100WBC PT (9.9-13.0) SEC INR (0.9-1.1) D-Dimer High Sensitivty NG/ML Sodium 142 (135-145) mmol/L Potassium 3.7 (3.3-5.1) mmol/L Chloride 106 (96-108) mmol/L Carbon Dioxide 22 (22-29) mmol/L Anion Gap 18 (12-20) BUN 16 (9-16) mg/dL Creatinine 0.84 (0.5-1.4) mg/dL Estim Creat Clear Calc 66.3 Estimated GFR > 60 POC Glucose (60-115) mg/dL Random Glucose 258 H (60-115) mg/dL Lactic Acid 3.6 H* (0.5-2.0) mmol/L Lactic Acid Fup @ 2Hr (0.5-2.0) mmol/L Calcium 9.2 D (8.4-10.2) mg/dL Magnesium 1.6 (1.6-2.6) mg/dL Total Bilirubin 0.5 (0.0-1.0) mg/dL AST 14 (5-31) U/L ALT 16 (0-31) U/L Alkaline Phosphatase 57 (39-117) U/L Total Protein 6.8 (6.5-8.0) g/dL Albumin 4.2 (3.5-5.0) g/dL Procalcitonin 0.02 ng/mL Urine Color Urine Appearance Urine pH (5.0-8.0) Ur Specific [place] (1.005-1.025) Urine Protein (NEG-TRACE) MG/DL Urine Glucose (UA) (NEG) MG/DL Urine Ketones (NEG) MG/DL Urine Blood (NEG) Urine Nitrite (NEG) Ur Leukocyte Esterase (NEG) Urine RBC (0) /HPF Urine WBC (0-4) /HPF Ur Squamous Epith Cells /LPF Urine Bacteria /LPF COVID-19 (FLOR) (Negative) COVID-19 Clin Com 07/29/21 07/29/21 07/29/21 Range/Units 19:26 20:46 22:16 WBC (4.8-10.8) X10*3/uL RBC (4.20-5.50) X10*6/uL Hgb (12.0-16.0) g/dl Hct (37.0-47.0) % MCV (80.0-98.0) fL MCH (27.0-33.0) pg MCHC (31.0-35.0) g/dl RDW (11.0-16.0) % Plt Count (160-400) X10*3/uL MPV (9.4-12.3) fL Immature Gran % (Auto) (0.0-0.4) % Neut % (Auto) (45-73) % Lymph % (Auto) (20-40) % [place] % (Auto) (2-11) % Eos % (Auto) (0-4) % Baso % (Auto) (0-2) % Lymph # (Auto) (1.2-4.9) X10*3/uL [place] # (Auto) (0.1-1.2) X10*3/uL Eos # (Auto) (0.0-0.4) X10*3/uL Baso # (Auto) (0.0-0.2) X10*3/uL Abs Immat Gran (auto) (0.00-0.03) X10*3/uL Absolute Neuts (auto) (2.0-8.3) x10*3/uL Absolute Nucleated RBC (0.0-0.012) X10*3/uL Nucleated RBC % (auto) (0.0-0.2) /100WBC PT (9.9-13.0) SEC INR (0.9-1.1) D-Dimer High Sensitivty NG/ML Sodium (135-145) mmol/L Potassium (3.3-5.1) mmol/L Chloride (96-108) mmol/L Carbon Dioxide (22-29) mmol/L Anion Gap (12-20) BUN (9-16) mg/dL Creatinine (0.5-1.4) mg/dL Estim Creat Clear Calc Estimated GFR POC Glucose (60-115) mg/dL Random Glucose (60-115) mg/dL Lactic Acid (0.5-2.0) mmol/L Lactic Acid Fup @ 2Hr 1.5 (0.5-2.0) mmol/L Calcium (8.4-10.2) mg/dL Magnesium (1.6-2.6) mg/dL Total Bilirubin (0.0-1.0) mg/dL AST (5-31) U/L ALT (0-31) U/L Alkaline Phosphatase (39-117) U/L Total Protein (6.5-8.0) g/dL Albumin (3.5-5.0) g/dL Procalcitonin ng/mL Urine Color YELLOW Urine Appearance CLEAR Urine pH 6.0 (5.0-8.0) Ur Specific [place] 1.020 (1.005-1.025) Urine Protein NEG (NEG-TRACE) MG/DL Urine Glucose (UA) >=1000 H (NEG) MG/DL Urine Ketones 40 (NEG) MG/DL Urine Blood NEG (NEG) Urine Nitrite NEG (NEG) Ur Leukocyte Esterase NEG (NEG) Urine RBC 0-2 (0) /HPF Urine WBC 0-2 (0-4) /HPF Ur Squamous Epith Cells TRACE /LPF Urine Bacteria NONE /LPF COVID-19 (FLOR) Negative (Negative) COVID-19 Clin Com See Note Discharge Plan Discharge Clinical Impression: Weakness Prescriptions: No Action pantoprazole 40 mg tablet,delayed release (DR/EC) 40 mg PO BID@0630,1630 30 Days Qty: 30 RF: 0 Lantus Solostar U-100 Insulin 100 unit/mL (3 mL) insulin pen 40 unit subcut BEDTIME 30 Days Qty: 10 RF: 0 valsartan 80 mg tablet 80 mg PO DAILY RF: 0 insulin lispro [Humalog KwikPen Insulin] 100 unit/mL insulin pen 2 - 14 unit subcut TIDAC RF: 0 donepezil 5 mg tablet 5 mg PO BEDTIME RF: 0 multivitamin Tablet 1 tab PO DAILY RF: 0 atorvastatin 80 mg Tablet 80 mg PO BEDTIME 30 Days Qty: 30 RF: 0 quetiapine 25 mg tablet 20 mg PO BEDTIME RF: 0 meclizine 25 mg tablet 1 tab PO BID PRN (Reason: Dizziness) RF: 0 hydrochlorothiazide 12.5 mg capsule 1 cap PO DAILY RF: 0 ipratropium bromide 21 mcg (0.03 %) spray,non-aerosol 2 spray intranasal BID PRN (Reason: Allergy Symptoms) RF: 0 amlodipine 5 mg tablet 1 tab PO QAM RF: 0 acetaminophen 500 mg tablet 2 tab PO DAILY PRN (Reason: Pain) RF: 0 Myrbetriq 25 mg tablet extended release 24 hr 1 tab PO QAM RF: 0 baclofen 10 mg tablet 10 mg PO TID PRN (Reason: Muscle Spasm) RF: 0 aspirin [Adult Low Dose Aspirin] 81 mg tablet,delayed release (DR/EC) 81 mg PO DAILY Qty: 90 RF: 1 metoprolol succinate 25 mg tablet extended release 24 hr 25 mg PO DAILY 30 Days Qty: 30 RF: 5
[2021-07-29 17:35] VITALS: BP 110/81; BP 114/54; PULSE 65; PULSE 68; RESP 16; TEMP 36.9; O2SAT 97; BMI 34.0
[2021-07-29 18:09] LABS: Glucose, Whole Blood 254 mg/dL (60-115)
[2021-07-29 18:22] LABS: MANUAL DIFF FLAG NO
[2021-07-29 18:25] LABS: Basophils Percent Auto 0.3 % (0-2); Eosinophils Percent Auto 0.3 % (0-4); Hematocrit 37.3 % (37.0-47.0); Hemoglobin 12.8 g/dl (12.0-16.0); Imm Gran Abs Auto 0.05 X10*3/uL (0.00-0.03); Imm Gran Pct Auto 0.4 % (0.0-0.4); Lymphocytes Percent Auto 17.1 % (20-40); Mean Corpuscular HGB Conc 34.3 g/dl (31.0-35.0); Mean Corpuscular Hemoglobin 32.4 pg (27.0-33.0); Mean Corpuscular Volume 94.4 fL (80.0-98.0); Mean Platelet Volume 9.5 fL (9.4-12.3); Monocytes Absolute Auto 0.9 X10*3/uL (0.1-1.2); Monocytes Percent Auto 7.3 % (2-11); Neutrophils Absolute Auto 8.8 x10*3/uL (2.0-8.3); Neutrophils Percent Auto 74.6 % (45-73); Platelet Count 231 X10*3/uL (160-400); Red Blood Count 3.95 X10*6/uL (4.20-5.50); Red Cell Distribution Width 14.2 % (11.0-16.0); White Blood Count 11.8 X10*3/uL (4.8-10.8)
[2021-07-29 18:28] LABS: Prothrombin Time 11.6 SEC (9.9-13.0)
[2021-07-29 18:38] LABS: Lactic Acid 3.6 mmol/L (0.5-2.0)
[2021-07-29 18:49] LABS: Alanine Aminotransferase 16 U/L (0-31); Albumin Level 4.2 g/dL (3.5-5.0); Alkaline Phosphatase 57 U/L (39-117); Anion Gap 18 (12-20); Aspartate Amino Transferase 14 U/L (5-31); Bilirubin Total 0.5 mg/dL (0.0-1.0); Blood Urea Nitrogen 16 mg/dL (9-16); Calcium 9.2 mg/dL (8.4-10.2); Carbon Dioxide 22 mmol/L (22-29); Chloride 106 mmol/L (96-108); Creatinine Clr Calc Pharmacy 66.3; Estimated Glomerular Filt Rate > 60; Glucose Random 258 mg/dL (60-115); Magnesium 1.6 mg/dL (1.6-2.6); Potassium 3.7 mmol/L (3.3-5.1); Sodium 142 mmol/L (135-145); Total Protein 6.8 g/dL (6.5-8.0)
[2021-07-29] MEDS: 0.9 % Sodium Chloride 1,000 ML 999 ML IVCONT ×2 (18:52→22:01)
[2021-07-29 19:43] LABS: Appearance Urine CLEAR; Color Urine YELLOW; Glucose Urine UA >=1000 MG/DL (NEG); Leukocyte Esterase Urine NEG (NEG); Nitrite Urine NEG (NEG); Urine Blood NEG (NEG); Urine Ketones 40 MG/DL (NEG); Urine Protein NEG (NEG-TRACE)
[2021-07-29 19:53] LABS: RBC Urine 0-2 /HPF (0); Squamous Epithelial Cell Urine TRACE /LPF; WBC Urine 0-2 /HPF (0-4)
[2021-07-29 20:20] LABS: Reflex Lactate? Lactic Acid Added
[2021-07-29] MEDS: cefTRIAXone sodium 1 GM in 0.9 % Sodium Chloride 50 ML IV (20:49)
[2021-07-29 20:50] LABS: Procalcitonin 0.02 ng/mL
[2021-07-29 21:00] LABS: ~Lactic Acid-LAB USE ONLY 1.5 mmol/L (0.5-2.0)
[2021-07-29 22:51] LABS: COVID-19 Test Negative (Negative); IDNOW Serial# 9DD0AD1C
[2021-07-29 23:06] VITALS: BP 111/57; PULSE 69; RESP 13; O2SAT 99
--- NOTE | 2021-07-29 23:09 | MHC.CM.ED ---
CM met with patient and /HCP Ant Nichole ([phone]). HCP on file. Fully vaccinated with Modernax2. Lives with . [facility] for meals on wheels. No other services. No DME. Pt had stroke in 03/23 and has cortical blindness. Pt states she doesn't feel well; c/o nausea, and headache. States she cannot walk. Rubbing abdomen. states she was normal yesterday. They made thanksgiving dinner and she was fine. States last night she was up all night and not feeling well. called the ambulance. Pt appears ill. has been caring for her without difficulty until last night. States he cannot take her home like this. Reported all of above to Dr. Powell. Medical assessment continues. Dr. Powell had nurses try to ambulate her. Pt could not ambulate and it took 2 nurses to assist her to stand. If no reason to admit, pt will remain in ED overnight for PT evaluation in the am. CM to follow for d/c needs.
[2021-07-29 23:10] LABS: D Dimer High Sensitivity < 150 NG/ML
--- NOTE | 2021-07-30 00:34 | PC.NURSE ---
I assumed care of this pt at 1900. The pt is alert, resting in bed where she is moderately restless, frequently shifting positions and fidgeting in the bed. Sh makes eye contact with RN and responds verbally but at times does not respond appropriately. She is oriented to person and place but not to time and seems to have intermittent confusion and intermittent difficulty following direction (is - moving from side to side in the bed). Respirations are non-labored. Skin s pale/warm/dry. There is an area of redness n between her R and L gluteal - area cleansed here in the ED and barrier cream applied. pt states this area is sore and she knows to lie on her side to keep pressure off of it 0 she is currently lying on her left side, and is frequently changing positions. miriam on her own and with assistance. She has been incontinent of urine and small amounts of brown, formed stool. Again, her skin has been cleansed, dried and clean linens have been provided. Natalia denies any pain at this time. Natalia's was present with her when I assumed care, and he has met with by MD Bearden and case mgmt and has since gone home when he was informed that Natalia will stay here until morning to see case management.
--- NOTE | 2021-07-30 05:19 | PC.NURSE ---
I assumed care of this pt at 1900. Since that time the pt has remained in the ED and, shortly after midnight, it was determined by ER MD that she will remain in the ED until morning when she can be thoroughly evaluated by case management. The pt has been alert, oriented to person and place but not to time. In addition, she has difficulty following direction and has been very fidgety and restless. Natalia seems to have some expressive aphasia - for instance, she often repeatedly answers 'that would be good to questions that don't merit that answer. Per her - who was at the bedside from 1900 until approximately midnight - this is not her baseline. The pt's states that her level of confusion is greater than her baseline confusion. Since Natalia's left she has required occasional redirecting as she has gotten up out of bed and has been found ambulating around her room. Her gait is steady, however she has difficulty walking in a straight line and seems to deviate to the right. She has had several small episodes of stool incontinence as evidenced by smears of stool on her bedsheets. I have provided new linens. She doesnt complain of pain, her respirations are non-labored. We will continue to monitor Natalia and await case management eval.
[2021-07-30 05:27] VITALS: BP 128/55; PULSE 75; RESP 16; O2SAT 99
--- NOTE | 2021-07-30 05:55 | PC.NURSE ---
Natalia wandered from her room (bed 16) al the way down the [address] to bed 10 at which time she was seen by another RN who notified me that she had left her room/ The pt was assisted back into bed 167. Throughout this incident her gait was steady, she was oriented to person, not to place or time, and she followed direction back to bed 16.
[2021-07-30 10:14] VITALS: BP 128/55; PULSE 75; O2SAT 99
--- NOTE | 2021-07-30 10:36 | MHC.CM.ED ---
Met with pt who was ambulating in the ED with security presence. Pt asking to leave and return to home with her spouse. Oriented to self only, pt visibly upset, crying and asking to leave. Call placed to pt's spouse, Ant: gave him a clinical update including pt's ability to ambulate independently. No acute findings from labs, VS to support admission or placement. Ant states he will arrive to ED to transport spouse to home. Updated ED RN and MD.
== END 2021-07-30 12:07 | disposition home or self-care (01) ==
PROVIDERS: Emergency Provider Internal Medicine; PCP Internal Medicine
DX: R53.1 Weakness (principal); Z20.822 Contact with and (suspected) exposure to COVID-19; R41.82 Altered mental status, unspecified; R51.9 Headache, unspecified; I11.0 Hypertensive heart disease with heart failure; I50.9 Heart failure, unspecified; E11.9 Type 2 diabetes mellitus without complications; E78.5 Hyperlipidemia, unspecified; Z87.440 Personal history of urinary (tract) infections; Z79.4 Long term (current) use of insulin; Z79.02 Long term (current) use of antithrombotics/antiplatelets; Z79.82 Long term (current) use of aspirin
CPT/HCPCS: 36415; 51701; 70450; 71045; 80053; 81001; 82947; 83605; 83735; 84145; 85025; 85379; 85610; 87040; 87635; 96361; 96365; 96372; 97162; 99285; J0696

== ENCOUNTER 2021-08-06 12:59 | Emergency (ER) | payer MEDICARE, SELFPAY ==
[2021-08-06] VITALS (9 sets, daily range): BP systolic 104–162; BP diastolic 39–88; PULSE 54–75; RESP 12–18; TEMP 35.8–36.8; O2SAT 95–100; BMI 41.5
--- NOTE | ~2021-08-06 | CT_ITS ---
EXAMINATION: CT HEAD WITHOUT CONTRAST CLINICAL INFORMATION: Altered mental status COMPARISON: CT head 07/29/2021 MRI of head 03/30/2021 TECHNIQUE: Contiguous axial imaging was performed from the skull base to vertex without intravenous administration of contrast. Coronal and sagittal reformatted images are performed at the CT scanner. [This CT examination was performed using dose optimization techniques as appropriate, variously including the following: *Automated exposure control *Adjustment of mA and/or kV according to patient size (this includes techniques or standardized protocols for targeted exams where dose is matched to indication/reason for exam; i.e. extremities or head) *Use of iterative reconstruction technique] DLP: 953 mGy-cm. FINDINGS: Encephalomalacia from old infarcts in the medial right and left occipital lobes and left cerebellar hemisphere remain stable since prior study. Stable small lacunar infarct in the right basal ganglia. There is no evidence of acute intracranial hemorrhage or acute territorial infarction. No abnormal mass-effect or midline shift is seen. Valverde to white matter differentiation is well preserved. No extra-axial fluid collections are identified. There is generalized global volume loss. There is mild prominence of the ventricles and the sulci . There is mild hypodensity of the periventricular white matter due to chronic small vessel ischemic disease. There are vascular calcifications of the internal carotid arteries bilaterally. There is no osseous abnormality. The mastoid air cells and visualized portions of the paranasal sinuses are well-aerated. CT/CT head/brain wo con IMPRESSION: No acute intracranial pathology.
--- NOTE | ~2021-08-06 | XR_ITS ---
EXAMINATION: XR CHEST CLINICAL INFORMATION: Altered mental status COMPARISON: Chest x-ray 07/29/2021 TECHNIQUE: Frontal portable view of the chest was obtained. 1448 hours FINDINGS: Lung volume low with low inspiratory effort. This causes crowding of the bronchovascular markings. No acute airspace disease. No pleural effusion or pneumothorax. Cardiac and mediastinal contours are unchanged. Orthopedic hardware in thoracic spine again noted. XR/XR chest 1V IMPRESSION: Low inspiratory effort. No acute abnormality of the chest.
[2021-08-06 13:15] LABS: Glucose, Whole Blood 364 mg/dL (60-115)
[2021-08-06] MEDS: 0.9 % Sodium Chloride 1,000 ML 999 ML IV ×2 (14:04→16:54)
[2021-08-06 14:08] LABS: MANUAL DIFF FLAG NO
[2021-08-06 14:12] LABS: Basophils Percent Auto 0.4 % (0-2); Eosinophils Absolute Auto 0.1 X10*3/uL (0.0-0.4); Eosinophils Percent Auto 0.9 % (0-4); Hematocrit 37.7 % (37.0-47.0); Hemoglobin 12.3 g/dl (12.0-16.0); Imm Gran Abs Auto 0.03 X10*3/uL (0.00-0.03); Imm Gran Pct Auto 0.4 % (0.0-0.4); Lymphocytes Absolute Auto 2.3 X10*3/uL (1.2-4.9); Lymphocytes Percent Auto 26.9 % (20-40); Mean Corpuscular HGB Conc 32.6 g/dl (31.0-35.0); Mean Corpuscular Hemoglobin 31.8 pg (27.0-33.0); Mean Corpuscular Volume 97.4 fL (80.0-98.0); Mean Platelet Volume 9.7 fL (9.4-12.3); Monocytes Absolute Auto 0.5 X10*3/uL (0.1-1.2); Monocytes Percent Auto 6.2 % (2-11); Neutrophils Absolute Auto 5.5 x10*3/uL (2.0-8.3); Neutrophils Percent Auto 65.2 % (45-73); Platelet Count 218 X10*3/uL (160-400); Red Blood Count 3.87 X10*6/uL (4.20-5.50); Red Cell Distribution Width 14.6 % (11.0-16.0); White Blood Count 8.4 X10*3/uL (4.8-10.8)
[2021-08-06 14:26] LABS: COVID-19 Test Negative (Negative); IDNOW Serial# 9DD0AD1C
[2021-08-06 14:37] LABS: Ethanol < 10 mg/dL
[2021-08-06 14:40] LABS: Acetaminophen LAB 19 mcg/mL (<30); Magnesium 1.8 mg/dL (1.6-2.6); Phosphorus 4.6 mg/dL (2.7-4.5); Salicylate < 5.0 mg/dL (15-30)
--- NOTE | 2021-08-06 14:47 | ED_ITS ---
HPI - Altered Mental Status General Chief Complaint: Altered Mental Status Stated Complaint: AMS, LKWT 9:30PM LAST NOC,-STROKE SCALE Time Seen by Provider: 08/06/21 13:27 Source: EMS Mode of arrival: EMS Limitations: altered mental status History of Present Illness HPI narrative: 68-year-old diabetic female presents with altered mental status that started last night. RN tells me EMS gave the history that last night patient became confused and altered and is worse today. I have tried to reach lukas karrie on home phone, but no answer. 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 She has a history of confusion secondary to UTI. Patient was admitted for metabolic encephalopathy in April 2021 and May 2021. Patient seen here in emergency room last month for weakness, discharge home. Additionally, patient has Lewy body dementia Without history from spouse, difficult to determine patient's baseline cognitive or neurological status MD complaint: altered mental status Onset (ago): hour(s) (20) Timing confirmed by: spouse Related Data Home Medications Medication Instructions Recorded Confirmed donepezil 5 mg tablet 5 mg PO BEDTIME 03/28/21 07/30/21 insulin lispro 100 unit/mL 2 - 14 unit SUBCUT TIDAC 03/28/21 07/30/21 subcutaneous pen (Humalog KwikPen (U-100) Insulin) valsartan 80 mg tablet 80 mg PO DAILY 03/28/21 07/30/21 multivitamin 1 tab PO DAILY 04/04/21 07/30/21 hydrochlorothiazide 12.5 mg capsule 1 cap PO DAILY 05/03/21 07/30/21 ipratropium bromide 21 mcg (0.03 2 spray INTRANASAL BID PRN 05/03/21 07/30/21 %) nasal spray meclizine 25 mg tablet 1 tab PO BID PRN 05/03/21 07/30/21 quetiapine 25 mg tablet 20 mg PO BEDTIME 05/03/21 07/30/21 acetaminophen 500 mg tablet 2 tab PO DAILY PRN 07/20/21 07/30/21 amlodipine 5 mg tablet 1 tab PO QAM 07/20/21 07/30/21 baclofen 10 mg tablet 10 mg PO TID PRN 07/20/21 07/30/21 mirabegron 25 mg tablet,extended 1 tab PO QAM 07/20/21 07/30/21 release 24 hr (Myrbetriq) Previous Rx's Medication Instructions Recorded insulin glargine 100 unit/mL (3 40 unit SUBCUT BEDTIME 30 Days #10 08/04/20 mL) subcutaneous pen (Lantus ml Solostar U-100 Insulin) pantoprazole 40 mg tablet,delayed 40 mg PO BID@0630,1630 30 Days #30 08/04/20 release tab aspirin 81 mg tablet,delayed 81 mg PO DAILY #90 tab 02/28/21 release (Adult Low Dose Aspirin) atorvastatin 80 mg tablet 80 mg PO BEDTIME 30 Days #30 tab 04/05/21 metoprolol succinate 25 mg 25 mg PO DAILY 30 Days #30 tab 08/01/21 tablet,extended release 24 hr Allergies Allergy/AdvReac Type Severity Reaction Status Date / Time Sulfa (Sulfonamide Allergy Severe DIFFICULTY Verified 02/28/21 15:39 Antibiotics) BREATHING [SULFA (SULFONAMIDE ANTIBIOTICS)] cephalexin [From KEFLEX] Allergy Intermediate RASH,HIVES Verified 02/28/21 15:39 amoxicillin [AMOXICILLIN] Allergy Unknown DENIES Verified 02/28/21 15:39 THIS ALLERGY 03/28/2018 penicillin V Allergy Unknown Unknown Verified 02/28/21 15:39 sumatriptan [From IMITREX] AdvReac Severe HEART Verified 02/28/21 15:39 PALPITATIONS topiramate [From TOPAMAX] AdvReac Severe AGITATION Verified 02/28/21 15:39 Review of Systems Review of Systems: Yes Unobtainable due to mental status PMFSH Past Medical History Medical History Anxiety Asthma CHF (congestive heart failure) Cortical blindness Diabetes Diabetic acetonemia Dyspnea on exertion Essential hypertension HTN (hypertension) Myalgia and myositis Neuropathy Nocturnal hypoxemia Obesity (BMI 30-39.9) Orthopnea Restrictive lung disease 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 Mother Angina at rest Sister Lung cancer Colon cancer COPD (chronic obstructive pulmonary disease) Social History Social History Household Members: Spouse Housing: Apartment Do you presently have visiting nurse or other home services: Yes (1X/wk) Unable to assess alcohol history related to: Refusing to respond Alcohol intake: unknown Patient Tobacco Use Status: Never used Tobacco e-Cigarette/Vaping Use: Never Used Second Hand Smoke Exposure: No Use of substances other than those prescribed or required for medical reasons: No Advance Directives: Yes Advance Directives on File: Yes Advance Directives Date on File: 07/27/20 service: No Current occupational status: unemployed and disabled Current occupation: right handed Sexual orientation: Straight/Heterosexual Physical Exam Vital Signs: Vital Signs: Last Vital Signs Temp 96.6 F L 08/06/21 17:38 Pulse 69 08/06/21 18:18 Resp 14 08/06/21 18:18 BP 122/53 L 08/06/21 18:18 Pulse Ox 99 08/06/21 18:18 BMI result Body Mass Index 41.5 Const: General: cooperative, no acute distress, well developed, alert and awake Nutritional Appearance: well nourished Orientation/consciousness: oriented to person and oriented to place Limitations: no limitations Eyes: Conjunctivae: conjunctivae normal Pupils: Equal, round and reactive pupils present EOM: EOMs intact bilaterally Neck: Neck: Yes full ROM, Yes no lymphadenopathy and Yes supple Resp: Effort & Inspection: normal respiratory effort and able to speak in complete sentences Auscultation: clear to auscultation bilaterally, no crackles, no rales, no rhonchi and no wheezes Cardio: Rate: regular rate Rhythm: regular rhythm Heart sounds: S1 normal heart sound present and S2 normal heart sound present GI: Inspection: Yes normal to inspection Palpation (GI): Soft to palpation, nontender, no guarding and not rigid Percussion: Yes normal to percussion Auscultation: normal bowel sounds Skin: General skin exam: no rashes or lesions noted Neuro: Other: Neuro exam limited by patient's inability to follow commands General: oriented to person, oriented to place, tone normal, moves all extre mities, no focal motor deficits and CN's II-XI intact bilaterally Cranial nerves: Yes Facial sensation intact/muscles of mastication intact, Yes Equal, round and reactive pupils present, Yes Normal accommodation reflex present, Yes Nystagmus not present and Yes Normal facial strength present Gait exam (Neuro): Normal gait present Pupils: Normal pupillary reactivity/response: bilateral Extrem: General: Yes normal to inspection and Yes full ROM Psych: Appearance: grossly normal Affect: normal affect Attitude: cooperative Thought process: Normal thought process present Course Course Course Narrative: 65-year-old female who has had multiple visits to the emergency room for altered mental status and weakness. On exam, patient can follow some commands, is moving all extremities. Patient has a head CT showed that shows no acute intracranial pathology, chest x-ray is negative, COVID is negative. Lactate is 1.8, electrolytes are fine, negative urine, negative salicylates, negative Tylenol, negative ethanol. Patient has a normal TSH, her VD BG is okay, negative cortisol, normal procalcitonin. Reevaluation(s) Reevaluation #2: arrived and said patient's last known well was 2:30 a.m. last night. He states she awoke altered at 7:30 a.m.. States she could walk, but she could not talk and she was fidgety. States she has not had any fever, no cough. He also says that she was at [facility] last week and admitted there, and was discharged but he was not sure what the diagnosis was. Reevaluation #3: Patient's rectal temperature is still 96.6. Patient's oral temperature is 97?. Patient is able to ambulate, and knows her name and where she is. Discussed sending her home with Jairo. [facility]airo refused to take patient home, would prefer she is observed overnight. Ordered physical therapy evaluation for tomorrow morning. MDM - Altered Mental Status Lab Data Result diagrams: 08/06/21 14:04 08/06/21 14:04 Labs: Lab Results 08/06/21 08/06/21 08/06/21 Range/Units 13:11 13:58 14:04 WBC 8.4 (4.8-10.8) X10*3/uL RBC 3.87 L (4.20-5.50) X10*6/uL Hgb 12.3 (12.0-16.0) g/dl Hct 37.7 (37.0-47.0) % MCV 97.4 (80.0-98.0) fL MCH 31.8 (27.0-33.0) pg MCHC 32.6 (31.0-35.0) g/dl RDW 14.6 (11.0-16.0) % Plt Count 218 (160-400) X10*3/uL MPV 9.7 (9.4-12.3) fL Immature Gran % (Auto) 0.4 (0.0-0.4) % Neut % (Auto) 65.2 (45-73) % Lymph % (Auto) 26.9 (20-40) % Granite % (Auto) 6.2 (2-11) % Eos % (Auto) 0.9 (0-4) % Baso % (Auto) 0.4 (0-2) % Lymph # (Auto) 2.3 (1.2-4.9) X10*3/uL Granite # (Auto) 0.5 (0.1-1.2) X10*3/uL Eos # (Auto) 0.1 (0.0-0.4) X10*3/uL Baso # (Auto) 0.0 (0.0-0.2) X10*3/uL Abs Immat Gran (auto) 0.03 (0.00-0.03) X10*3/uL Absolute Neuts (auto) 5.5 (2.0-8.3) x10*3/uL Absolute Nucleated RBC 0.000 (0.0-0.012) X10*3/uL Nucleated RBC % (auto) 0.0 (0.0-0.2) /100WBC VBG pH (7.32-7.43) VBG pCO2 mmHg VBG pO2 mmHg VBG HCO3 (22-26) mmol/L VBG O2 Saturation % VBG Base Excess mmol/L Sodium (135-145) mmol/L Potassium (3.3-5.1) mmol/L Chloride (96-108) mmol/L Carbon Dioxide (22-29) mmol/L Anion Gap (12-20) BUN (9-16) mg/dL Creatinine (0.5-1.4) mg/dL Estim Creat Clear Calc Estimated GFR POC Glucose 364 H* (60-115) mg/dL Random Glucose (60-115) mg/dL Lactic Acid (0.5-2.0) mmol/L Calcium (8.4-10.2) mg/dL Phosphorus (2.7-4.5) mg/dL Magnesium (1.6-2.6) mg/dL Total Bilirubin (0.0-1.0) mg/dL AST (5-31) U/L ALT (0-31) U/L Alkaline Phosphatase (39-117) U/L Total Protein (6.5-8.0) g/dL Albumin (3.5-5.0) g/dL Procalcitonin ng/mL TSH (0.32-4.0) uIU/mL Random Cortisol ug/dL Urine Color Urine Appearance Urine pH (5.0-8.0) Ur Specific Doyle (1.005-1.025) Urine Protein (NEG-TRACE) MG/DL Urine Glucose (UA) (NEG) MG/DL Urine Ketones (NEG) MG/DL Urine Blood (NEG) Urine Nitrite (NEG) Ur Leukocyte Esterase (NEG) Salicylates (15-30) mg/dL Acetaminophen (<30) mcg/mL Ethyl Alcohol mg/dL COVID-19 (FLOR) Negative (Negative) COVID-19 Clin Com See Note 08/06/21 08/06/21 08/06/21 Range/Units 14:04 14:04 14:23 WBC (4.8-10.8) X10*3/uL RBC (4.20-5.50) X10*6/uL Hgb (12.0-16.0) g/dl Hct (37.0-47.0) % MCV (80.0-98.0) fL MCH (27.0-33.0) pg MCHC (31.0-35.0) g/dl RDW (11.0-16.0) % Plt Count (160-400) X10*3/uL MPV (9.4-12.3) fL Immature Gran % (Auto) (0.0-0.4) % Neut % (Auto) (45-73) % Lymph % (Auto) (20-40) % Granite % (Auto) (2-11) % Eos % (Auto) (0-4) % Baso % (Auto) (0-2) % Lymph # (Auto) (1.2-4.9) X10*3/uL Granite # (Auto) (0.1-1.2) X10*3/uL Eos # (Auto) (0.0-0.4) X10*3/uL Baso # (Auto) (0.0-0.2) X10*3/uL Abs Immat Gran (auto) (0.00-0.03) X10*3/uL Absolute Neuts (auto) (2.0-8.3) x10*3/uL Absolute Nucleated RBC (0.0-0.012) X10*3/uL Nucleated RBC % (auto) (0.0-0.2) /100WBC VBG pH (7.32-7.43) VBG pCO2 mmHg VBG pO2 mmHg VBG HCO3 (22-26) mmol/L VBG O2 Saturation % VBG Base Excess mmol/L Sodium 137 (135-145) mmol/L Potassium 4.9 D (3.3-5.1) mmol/L Chloride 104 (96-108) mmol/L Carbon Dioxide 22 (22-29) mmol/L Anion Gap 16 (12-20) BUN 27 H (9-16) mg/dL Creatinine 1.06 (0.5-1.4) mg/dL Estim Creat Clear Calc 58.8 Estimated GFR 52 POC Glucose (60-115) mg/dL Random Glucose 349 H (60-115) mg/dL Lactic Acid 1.8 (0.5-2.0) mmol/L Calcium 9.2 (8.4-10.2) mg/dL Phosphorus 4.6 H (2.7-4.5) mg/dL Magnesium 1.8 (1.6-2.6) mg/dL Total Bilirubin 0.6 (0.0-1.0) mg/dL AST 12 (5-31) U/L ALT 15 (0-31) U/L Alkaline Phosphatase 59 (39-117) U/L Total Protein 6.1 L (6.5-8.0) g/dL Albumin 3.8 (3.5-5.0) g/dL Procalcitonin ng/mL TSH (0.32-4.0) uIU/mL Random Cortisol ug/dL Urine Color Urine Appearance Urine pH (5.0-8.0) Ur Specific Doyle (1.005-1.025) Urine Protein (NEG-TRACE) MG/DL Urine Glucose (UA) (NEG) MG/DL Urine Ketones (NEG) MG/DL Urine Blood (NEG) Urine Nitrite (NEG) Ur Leukocyte Esterase (NEG) Salicylates < 5.0 L (15-30) mg/dL Acetaminophen 19 (<30) mcg/mL Ethyl Alcohol < 10 mg/dL COVID-19 (FLOR) (Negative) COVID-19 Clin Com 08/06/21 08/06/21 08/06/21 Range/Units 15:18 15:20 16:21 WBC (4.8-10.8) X10*3/uL RBC (4.20-5.50) X10*6/uL Hgb (12.0-16.0) g/dl Hct (37.0-47.0) % MCV (80.0-98.0) fL MCH (27.0-33.0) pg MCHC (31.0-35.0) g/dl RDW (11.0-16.0) % Plt Count (160-400) X10*3/uL MPV (9.4-12.3) fL Immature Gran % (Auto) (0.0-0.4) % Neut % (Auto) (45-73) % Lymph % (Auto) (20-40) % Granite % (Auto) (2-11) % Eos % (Auto) (0-4) % Baso % (Auto) (0-2) % Lymph # (Auto) (1.2-4.9) X10*3/uL Granite # (Auto) (0.1-1.2) X10*3/uL Eos # (Auto) (0.0-0.4) X10*3/uL Baso # (Auto) (0.0-0.2) X10*3/uL Abs Immat Gran (auto) (0.00-0.03) X10*3/uL Absolute Neuts (auto) (2.0-8.3) x10*3/uL Absolute Nucleated RBC (0.0-0.012) X10*3/uL Nucleated RBC % (auto) (0.0-0.2) /100WBC VBG pH (7.32-7.43) VBG pCO2 mmHg VBG pO2 mmHg VBG HCO3 (22-26) mmol/L VBG O2 Saturation % VBG Base Excess mmol/L Sodium (135-145) mmol/L Potassium (3.3-5.1) mmol/L Chloride (96-108) mmol/L Carbon Dioxide (22-29) mmol/L Anion Gap (12-20) BUN (9-16) mg/dL Creatinine (0.5-1.4) mg/dL Estim Creat Clear Calc Estimated GFR POC Glucose 260 H (60-115) mg/dL Random Glucose (60-115) mg/dL Lactic Acid (0.5-2.0) mmol/L Calcium (8.4-10.2) mg/dL Phosphorus (2.7-4.5) mg/dL Magnesium (1.6-2.6) mg/dL Total Bilirubin (0.0-1.0) mg/dL AST (5-31) U/L ALT (0-31) U/L Alkaline Phosphatase (39-117) U/L Total Protein (6.5-8.0) g/dL Albumin (3.5-5.0) g/dL Procalcitonin ng/mL TSH (0.32-4.0) uIU/mL Random Cortisol 7.0 ug/dL Urine Color YELLOW Urine Appearance CLEAR Urine pH 5.5 (5.0-8.0) Ur Specific Doyle <= 1.005 (1.005-1.025) Urine Protein NEG (NEG-TRACE) MG/DL Urine Glucose (UA) 250 H (NEG) MG/DL Urine Ketones NEG (NEG) MG/DL Urine Blood NEG (NEG) Urine Nitrite NEG (NEG) Ur Leukocyte Esterase NEG (NEG) Salicylates (15-30) mg/dL Acetaminophen (<30) mcg/mL Ethyl Alcohol mg/dL COVID-19 (FLOR) (Negative) COVID-19 Clin Com 08/06/21 08/06/21 08/06/21 Range/Units 16:21 16:21 16:22 WBC (4.8-10.8) X10*3/uL RBC (4.20-5.50) X10*6/uL Hgb (12.0-16.0) g/dl Hct (37.0-47.0) % MCV (80.0-98.0) fL MCH (27.0-33.0) pg MCHC (31.0-35.0) g/dl RDW (11.0-16.0) % Plt Count (160-400) X10*3/uL MPV (9.4-12.3) fL Immature Gran % (Auto) (0.0-0.4) % Neut % (Auto) (45-73) % Lymph % (Auto) (20-40) % Granite % (Auto) (2-11) % Eos % (Auto) (0-4) % Baso % (Auto) (0-2) % Lymph # (Auto) (1.2-4.9) X10*3/uL Granite # (Auto) (0.1-1.2) X10*3/uL Eos # (Auto) (0.0-0.4) X10*3/uL Baso # (Auto) (0.0-0.2) X10*3/uL Abs Immat Gran (auto) (0.00-0.03) X10*3/uL Absolute Neuts (auto) (2.0-8.3) x10*3/uL Absolute Nucleated RBC (0.0-0.012) X10*3/uL Nucleated RBC % (auto) (0.0-0.2) /100WBC VBG pH 7.30 L (7.32-7.43) VBG pCO2 48 mmHg VBG pO2 39 mmHg VBG HCO3 24 (22-26) mmol/L VBG O2 Saturation 60.0 % VBG Base Excess -2.3 mmol/L Sodium (135-145) mmol/L Potassium (3.3-5.1) mmol/L Chloride (96-108) mmol/L Carbon Dioxide (22-29) mmol/L Anion Gap (12-20) BUN (9-16) mg/dL Creatinine (0.5-1.4) mg/dL Estim Creat Clear Calc Estimated GFR POC Glucose (60-115) mg/dL Random Glucose (60-115) mg/dL Lactic Acid (0.5-2.0) mmol/L Calcium (8.4-10.2) mg/dL Phosphorus (2.7-4.5) mg/dL Magnesium (1.6-2.6) mg/dL Total Bilirubin (0.0-1.0) mg/dL AST (5-31) U/L ALT (0-31) U/L Alkaline Phosphatase (39-117) U/L Total Protein (6.5-8.0) g/dL Albumin (3.5-5.0) g/dL Procalcitonin 0.04 ng/mL TSH 0.68 (0.32-4.0) uIU/mL Random Cortisol ug/dL Urine Color Urine Appearance Urine pH (5.0-8.0) Ur Specific Doyle (1.005-1.025) Urine Protein (NEG-TRACE) MG/DL Urine Glucose (UA) (NEG) MG/DL Urine Ketones (NEG) MG/DL Urine Blood (NEG) Urine Nitrite (NEG) Ur Leukocyte Esterase (NEG) Salicylates (15-30) mg/dL Acetaminophen (<30) mcg/mL Ethyl Alcohol mg/dL COVID-19 (FLOR) (Negative) COVID-19 Clin Com Discharge Plan Discharge Clinical Impression: Weakness Prescriptions: No Action metoprolol succinate 25 mg tablet extended release 24 hr 25 mg PO DAILY 30 Days Qty: 30 RF: 5 pantoprazole 40 mg tablet,delayed release (DR/EC) 40 mg PO BID@0630,1630 30 Days Qty: 30 RF: 0 Lantus Solostar U-100 Insulin 100 unit/mL (3 mL) insulin pen 40 unit subcut BEDTIME 30 Days Qty: 10 RF: 0 valsartan 80 mg tablet 80 mg PO DAILY RF: 0 insulin lispro [Humalog KwikPen Insulin] 100 unit/mL insulin pen 2 - 14 unit subcut TIDAC RF: 0 donepezil 5 mg tablet 5 mg PO BEDTIME RF: 0 multivitamin Tablet 1 tab PO DAILY RF: 0 atorvastatin 80 mg Tablet 80 mg PO BEDTIME 30 Days Qty: 30 RF: 0 quetiapine 25 mg tablet 20 mg PO BEDTIME RF: 0 meclizine 25 mg tablet 1 tab PO BID PRN (Reason: Dizziness) RF: 0 hydrochlorothiazide 12.5 mg capsule 1 cap PO DAILY RF: 0 ipratropium bromide 21 mcg (0.03 %) spray,non-aerosol 2 spray intranasal BID PRN (Reason: Allergy Symptoms) RF: 0 amlodipine 5 mg tablet 1 tab PO QAM RF: 0 acetaminophen 500 mg tablet 2 tab PO DAILY PRN (Reason: Pain) RF: 0 Myrbetriq 25 mg tablet extended release 24 hr 1 tab PO QAM RF: 0 baclofen 10 mg tablet 10 mg PO TID PRN (Reason: Muscle Spasm) RF: 0 aspirin [Adult Low Dose Aspirin] 81 mg tablet,delayed release (DR/EC) 81 mg PO DAILY Qty: 90 RF: 1
[2021-08-06 15:02] LABS: Lactic Acid 1.8 mmol/L (0.5-2.0)
[2021-08-06 15:24] LABS: Glucose, Whole Blood 260 mg/dL (60-115)
[2021-08-06 15:28] LABS: Appearance Urine CLEAR; Color Urine YELLOW; Glucose Urine UA 250 MG/DL (NEG); Leukocyte Esterase Urine NEG (NEG); Nitrite Urine NEG (NEG); PH 5.5 (5.0-8.0); Specific Gravity - Urine <= 1.005 (1.005-1.025); Urine Blood NEG (NEG); Urine Ketones NEG (NEG); Urine Protein NEG (NEG-TRACE)
[2021-08-06 15:59] LABS: Alanine Aminotransferase 15 U/L (0-31); Albumin Level 3.8 g/dL (3.5-5.0); Alkaline Phosphatase 59 U/L (39-117); Anion Gap 16 (12-20); Aspartate Amino Transferase 12 U/L (5-31); Bilirubin Total 0.6 mg/dL (0.0-1.0); Blood Urea Nitrogen 27 mg/dL (9-16); Calcium 9.2 mg/dL (8.4-10.2); Carbon Dioxide 22 mmol/L (22-29); Chloride 104 mmol/L (96-108); Creatinine Clr Calc Pharmacy 58.8; Estimated Glomerular Filt Rate 52; Glucose Random 349 mg/dL (60-115); Potassium 4.9 mmol/L (3.3-5.1); Sodium 137 mmol/L (135-145); Total Protein 6.1 g/dL (6.5-8.0)
[2021-08-06 16:29] LABS: Venous Blood Gas Refer to POC result
[2021-08-06 16:30] LABS: VBG Base Excess -2.3 mmol/L; VBG HCO3 24 mmol/L (22-26); VBG pCO2 48 mmHg; VBG pO2 39 mmHg
[2021-08-06 17:00] LABS: TSH reflex Free T4 0.68 uIU/mL (0.32-4.0)
[2021-08-06 17:04] LABS: Procalcitonin 0.04 ng/mL
[2021-08-06 20:09] LABS: Glucose, Whole Blood 176 mg/dL (60-115)
--- NOTE | 2021-08-06 20:32 | PC.NURSE ---
Pt resting on stretcher in NAD, breathing with ease on RA, VSS. Pt aaox1, disoriented to place, situation, and time. Pt speech is clear, able to speak in complete sentences. Pt moving all extremities independently. No facial droop/focal weakness noted. Pt reports she is at [facility], does not know why, and does not know the year/month. Pt reoriented. Pt denies pain/discomfort. Purewick placed, pt repositioned on stretcher, boosted to head of bed, head of bed elevated. Pt's stretcher in lowest, locked position. Rails raised, call sandra within reach. Pt with red fall prevention socks on and red fall star sign posted outside of room.
[2021-08-06 21:26] LABS: Amphetamine Screen Urine Not Detected (Not Detect); Barbiturates, Urine Not Detected (Not Detect); Benzodiazepines Screen Urine Not Detected (Not Detect); Cannabinoid Screen Urine Not Detected (Not Detect); Cocaine Screen Urine Not Detected (Not Detect); Fentanyl, urine POSITIVE (Not Detect); Opiate Screen Urine Not Detected (Not Detect); Phencyclidine Screen Urine Not Detected (Not Detect)
[2021-08-06 22:17] LABS: Glucose, Whole Blood 166 mg/dL (60-115)
--- NOTE | 2021-08-06 22:28 | PC.NURSE ---
Dr Rendon made aware that pt has been moaning, appears to be uncomfortable. Pt with purewick in place but this RN suspecting urinary retention as pt is voiding but continues to state I need to pee. Riki PCT to bedside, bladder scanned, pt with ~600mL of urine in bladder. Dr Rendon agreeable to chavarria catheter. This RN also requesting Dr Rendon continue home meds as med rec was completed by this RN.
--- NOTE | 2021-08-06 23:00 | PC.NURSE ---
Report given to BRENT Gleason who was made aware of need to request continuation of home meds by ED provider. This RN performed pt's Med Rec using pt's pharmacy and contacted pt's for further clarification.
--- NOTE | 2021-08-07 04:43 | PC.NURSE ---
Notified Dr. Barrett about med rec being done. Asked if she could order home medications. Said she will be ordering them.
[2021-08-07 06:00] VITALS: BP 134/60; PULSE 69; RESP 18; TEMP 36.7; O2SAT 96
--- NOTE | 2021-08-07 06:47 | PC.NURSE ---
patient alert and oriented x3, following commands, and answering questions appropriately. big difference from last night where she was alert x2, and not following commands.
--- NOTE | 2021-08-07 09:05 | MHC.CM.ED ---
i spoke c pt's , fallon, for this interview. the patient lives c her in their home. he is her primary child caregiver , he tells me they have no children. he says his regularly needs cueing to remind her of things. she is a safe ambulator and uses no walker. he denies the need for vna but did request that he would like to be evaluated for help in the home for marine mammal trainer/SENIOR BUSINESS DEVELOPMENT ANALYST svcs by [facility]. a ref. for this to [facility] has been made. Fallon is going to pick his up this morning before noon to bring her home. this was shared c the r.n. caring for patient in the e.d. cm to cont. to follow.
--- NOTE | 2021-08-07 10:51 | PC.NURSE ---
Plan for pt to be discharged home before noon nd trasnported by
== END 2021-08-07 13:04 | disposition home or self-care (01) ==
PROVIDERS: Emergency Medicine; Physician Assistant; Emergency Provider Emergency Medicine Emergency Medical Services
DX: R53.1 Weakness (principal); Z20.822 Contact with and (suspected) exposure to COVID-19; G31.83 Neurocognitive disorder with Lewy bodies; F02.80 Dementia in other diseases classified elsewhere, unspecified severity, without behavioral disturbance, psychotic disturbance, mood disturbance, and anxiety; E11.9 Type 2 diabetes mellitus without complications; I10 Essential (primary) hypertension; E78.5 Hyperlipidemia, unspecified; Z79.02 Long term (current) use of antithrombotics/antiplatelets; Z79.4 Long term (current) use of insulin; Z79.82 Long term (current) use of aspirin; Z79.899 Other long term (current) drug therapy; Z87.440 Personal history of urinary (tract) infections
CPT/HCPCS: 36415; 51701; 51702; 70450; 71045; 80053; 80143; 80179; 80307; 81003; 82077; 82533; 82803; 82947; 83605; 83735; 84100; 84145; 84443; 85025; 87040; 87635; 96360; 96361; 99285

== ENCOUNTER 2021-09-17 15:03 | Emergency (ER) | payer MEDICARE, SELFPAY ==
--- NOTE | ~2021-09-17 | CT_ITS ---
EXAMINATION: CT HEAD WITHOUT CONTRAST CLINICAL INFORMATION: Left facial drooping. AMS COMPARISON: CT brain 08/06/2021 TECHNIQUE: Contiguous axial imaging was performed from the skull base to vertex without intravenous administration of contrast. This CT examination was performed using dose optimization techniques as appropriate, variously including the following: *Automated exposure control *Adjustment of mA and/or kV according to patient size (this includes techniques or standardized protocols for targeted exams where dose is matched to indication/reason for exam; i.e. extremities or head) *Use of iterative reconstruction technique DLP: 653 mGy-cm FINDINGS: There are bilateral occipital lobe encephalomalacia and superior left cerebellar hemisphere encephalomalacia from old insult. No acute intra-axial, extra-axial bleed, masses or midline shift is seen. There is no acute infarction noted.. [place] to white matter differentiation is well preserved. No extra-axial fluid collections are identified. The lateral ventricles are symmetrical in size but enlarged. There is no abnormal attenuation within the brain parenchyma. The osseous structures and soft tissues are normal. The mastoid air cells and visualized portions of the paranasal sinuses are well aerated. CT/CT head/brain wo con IMPRESSION: No acute intracranial process seen. Bilateral occipital lobe and left cerebellar hemisphere encephalomalacia from old insult. No acute intracranial process seen.
--- NOTE | 2021-09-17 15:15 | ECG_ITS ---
Test Reason : stroke protocol Blood Pressure : / mmHG Vent. Rate : 077 BPM Atrial Rate : 077 BPM P-R Int : 132 ms QRS Dur : 086 ms QT Int : 386 ms P-R-T Axes : 061 054 034 degrees QTc Int : 436 ms Artifact in tracing Normal sinus rhythm Normal ECG When compared with ECG of 20-JUL-2021 12:44, No significant change was found Referred By: Leticia Barrett Electronically Signed By:BAIRON IVY
--- NOTE | 2021-09-17 15:17 | ED.NEUROSD ---
HPI - Neuro Symptoms/Deficit General Chief Complaint: Neuro Symptoms/Deficit Stated Complaint: STROKE ALERT EDWINA NATHAN,LKWT 15HOURS,-THIN Time Seen by Provider: 09/17/21 15:14 Source: EMS Mode of arrival: EMS Limitations: other (Poor historian) History of Present Illness HPI Narrative: Patient comes to the emergency room via EMS. Patient's called EMS because he noticed that the patient is confused more than usual. Patient's states that yesterday around 22:00 before they went to bed, he noticed that the patient had left-sided mouth drooping, then they went to bed. Of note, patient has history of previous strokes. This time, the symptoms started 17 hours ago. Of note, patient has history of Lewy body dementia, encephalomalacia from old infarcts especially in the medial right and left occipital lobes and in the left cerebral hemisphere. Patient has a bit of slurred speech, but patient does not have teeth either. Patient also said that she has a mild headache. Per EMS, patient is not on any blood thinners. Patient has been hospitalized multiple times for metabolic encephalopathy Related Data Home Medications Medication Instructions Recorded Confirmed acetaminophen 500 mg tablet 2 tab PO DAILY PRN 08/06/21 08/06/21 amlodipine 5 mg tablet 1 tab PO DAILY 08/06/21 08/06/21 aspirin 81 mg tablet,delayed 1 tab PO QAM 08/06/21 08/06/21 release atorvastatin 80 mg tablet 1 tab PO DAILY 08/06/21 08/06/21 baclofen 10 mg tablet 1 tab PO TID 08/06/21 08/06/21 donepezil 5 mg tablet 1 tab PO DAILY 08/06/21 08/06/21 hydrochlorothiazide 12.5 mg capsule 1 cap PO DAILY 08/06/21 08/06/21 insulin glargine 100 unit/mL (3 14 unit SUBCUT BEDTIME 08/06/21 08/06/21 mL) subcutaneous pen (Lantus Solostar U-100 Insulin) insulin lispro 100 unit/mL SUBCUT TID PRN 08/06/21 subcutaneous pen (Humalog KwikPen (U-100) Insulin) ipratropium bromide 21 mcg (0.03 2 spray INTRANASAL BID 08/06/21 08/06/21 %) nasal spray meclizine 25 mg tablet 1 tab PO BID PRN 08/06/21 08/06/21 metoprolol succinate 25 mg 1 tab PO DAILY 08/06/21 08/06/21 tablet,extended release 24 hr mirabegron 25 mg tablet,extended 1 tab PO DAILY 08/06/21 08/06/21 release 24 hr (Myrbetriq) nitrofurantoin macrocrystal 100 mg 1 cap PO BEDTIME 08/06/21 08/06/21 capsule pantoprazole 40 mg tablet,delayed 1 tab PO BID 08/06/21 08/06/21 release quetiapine 25 mg tablet 25 mg PO BEDTIME 08/06/21 08/06/21 valsartan 80 mg tablet 1 tab PO QAM 08/06/21 08/06/21 Allergies Allergy/AdvReac Type Severity Reaction Status Date / Time Sulfa (Sulfonamide Allergy Severe DIFFICULTY Verified 02/28/21 15:39 Antibiotics) BREATHING [SULFA (SULFONAMIDE ANTIBIOTICS)] cephalexin [From KEFLEX] Allergy Intermediate RASH,HIVES Verified 02/28/21 15:39 amoxicillin [AMOXICILLIN] Allergy Unknown DENIES Verified 02/28/21 15:39 THIS ALLERGY 03/28/2018 penicillin V Allergy Unknown Unknown Verified 02/28/21 15:39 sumatriptan [From IMITREX] AdvReac Severe HEART Verified 02/28/21 15:39 PALPITATIONS topiramate [From TOPAMAX] AdvReac Severe AGITATION Verified 02/28/21 15:39 Review of Systems Review of Systems: Yes Unobtainable due to mental status PMFSH Past Medical History Medical History Anxiety Asthma CHF (congestive heart failure) Cortical blindness Diabetes Diabetic acetonemia Dyspnea on exertion Essential hypertension HTN (hypertension) Myalgia and myositis Neuropathy Nocturnal hypoxemia Obesity (BMI 30-39.9) Orthopnea Restrictive lung disease 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 Mother Angina at rest Sister Lung cancer Colon cancer COPD (chronic obstructive pulmonary disease) Social History Social History Household Members: Spouse Housing: Apartment Do you presently have visiting nurse or other home services: Yes (1X/wk) Unable to assess alcohol history related to: Refusing to respond Alcohol intake: unknown Patient Tobacco Use Status: Never used Tobacco e-Cigarette/Vaping Use: Never Used Second Hand Smoke Exposure: No Advance Directives: Yes Advance Directives on File: Yes Advance Directives Date on File: 07/27/20 Patient : No service: No Current occupational status: unemployed and disabled Current occupation: right handed Sexual orientation: Straight/Heterosexual Physical Exam Vital Signs: Vital Signs: Last Vital Signs Temp 98.4 F 09/17/21 15:19 Pulse 87 09/17/21 15:19 Resp 16 09/17/21 15:19 BP 138/106 H 09/17/21 15:19 Pulse Ox 97 09/17/21 15:19 BMI result Body Mass Index 34.2 Const: Other: Appearance: Alert. Oriented X1. No acute distress. Patient is altered, not answering questions appropriately. Occasionally patient is able to follow commands, seems somnolent but easily arousable Eyes: Pupils equal, round and reactive to light. ENT: Pharynx normal. Patient has facial droop on the left side. Patient is unable to raise her left eyebrow Neck: Normal inspection. Neck supple. No lymph nodes noted. No crepitus CVS: Normal heart rate and rhythm. Pulses normal. Normal S1 and S2 Respiratory: No respiratory distress. Breath sounds normal. No Wheezing. No rales Abdomen: Soft and nontender. No rigidity. No distention. Skin: Skin warm and dry. Normal skin color. Normal skin turgor. Extremities: No lower extremity edema. Patient is moving all extremities Neuro: Oriented X 3. Left-sided mild drooping, patient unable to raise the left eyebrow Course Course Course Narrative: Patient's labs and imaging are pending. 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 However, patient has worsening altered mental status. patient's labs and CT scan pending. Patient is outside of the window of treatment for stroke if that would be the case. Also, patient has been hospitalized multiple times to this facility for metabolic encephalopathy Patient was started on valacyclovir and oral prednisone. All the labs and head CT pending. Sign-out given to Dr. Powell. Patient will need to have a prescription for valacyclovir and prednisone if discharged. MDM - Neuro Symptoms/Deficit Lab Data Result diagrams: 09/17/21 16:04 09/17/21 16:04 Labs: Lab Results 09/17/21 09/17/21 09/17/21 Range/Units 16:04 16:04 16:04 WBC 12.5 H (4.8-10.8) X10*3/uL RBC 4.36 (4.20-5.50) X10*6/uL Hgb 14.2 (12.0-16.0) g/dl Hct 41.3 (37.0-47.0) % MCV 94.7 (80.0-98.0) fL MCH 32.6 (27.0-33.0) pg MCHC 34.4 (31.0-35.0) g/dl RDW 13.5 (11.0-16.0) % Plt Count 241 (160-400) X10*3/uL MPV 9.6 (9.4-12.3) fL Immature Gran % (Auto) 0.3 (0.0-0.4) % Neut % (Auto) 84.1 H (45-73) % Lymph % (Auto) 12.1 L (20-40) % [place] % (Auto) 3.1 (2-11) % Eos % (Auto) 0.2 (0-4) % Baso % (Auto) 0.2 (0-2) % Lymph # (Auto) 1.5 (1.2-4.9) X10*3/uL [place] # (Auto) 0.4 (0.1-1.2) X10*3/uL Eos # (Auto) 0.0 (0.0-0.4) X10*3/uL Baso # (Auto) 0.0 (0.0-0.2) X10*3/uL Abs Immat Gran (auto) 0.04 H (0.00-0.03) X10*3/uL Absolute Neuts (auto) 10.5 H (2.0-8.3) x10*3/uL Absolute Nucleated RBC 0.000 (0.0-0.012) X10*3/uL Nucleated RBC % (auto) 0.0 (0.0-0.2) /100WBC PT 11.8 (9.9-13.0) SEC INR 1.0 (0.9-1.1) VBG pH (7.32-7.43) VBG pCO2 mmHg VBG pO2 mmHg VBG HCO3 (22-26) mmol/L VBG O2 Saturation % VBG Base Excess mmol/L Ammonia (13-55) umol/L COVID-19 (FLOR) Negative (Negative) COVID-19 Clin Com See Note 09/17/21 09/17/21 Range/Units 16:04 16:10 WBC (4.8-10.8) X10*3/uL RBC (4.20-5.50) X10*6/uL Hgb (12.0-16.0) g/dl Hct (37.0-47.0) % MCV (80.0-98.0) fL MCH (27.0-33.0) pg MCHC (31.0-35.0) g/dl RDW (11.0-16.0) % Plt Count (160-400) X10*3/uL MPV (9.4-12.3) fL Immature Gran % (Auto) (0.0-0.4) % Neut % (Auto) (45-73) % Lymph % (Auto) (20-40) % [place] % (Auto) (2-11) % Eos % (Auto) (0-4) % Baso % (Auto) (0-2) % Lymph # (Auto) (1.2-4.9) X10*3/uL [place] # (Auto) (0.1-1.2) X10*3/uL Eos # (Auto) (0.0-0.4) X10*3/uL Baso # (Auto) (0.0-0.2) X10*3/uL Abs Immat Gran (auto) (0.00-0.03) X10*3/uL Absolute Neuts (auto) (2.0-8.3) x10*3/uL Absolute Nucleated RBC (0.0-0.012) X10*3/uL Nucleated RBC % (auto) (0.0-0.2) /100WBC PT (9.9-13.0) SEC INR (0.9-1.1) VBG pH 7.34 (7.32-7.43) VBG pCO2 53 mmHg VBG pO2 33 mmHg VBG HCO3 29 H (22-26) mmol/L VBG O2 Saturation 48.0 % VBG Base Excess 2.0 mmol/L Ammonia 22 (13-55) umol/L COVID-19 (FLOR) (Negative) COVID-19 Clin Com Discharge Plan Discharge Clinical Impression: Turner's palsy, Altered mental status Patient Disposition: Still a Patient Prescriptions: No Action quetiapine 25 mg tablet 25 mg PO BEDTIME RF: 0 atorvastatin 80 mg tablet 1 tab PO DAILY RF: 0 donepezil 5 mg tablet 1 tab PO DAILY RF: 0 valsartan 80 mg tablet 1 tab PO QAM RF: 0 amlodipine 5 mg tablet 1 tab PO DAILY RF: 0 aspirin 81 mg tablet,delayed release (DR/EC) 1 tab PO QAM RF: 0 acetaminophen 500 mg tablet 2 tab PO DAILY PRN (Reason: Pain) RF: 0 meclizine 25 mg tablet 1 tab PO BID PRN (Reason: Dizziness) RF: 0 baclofen 10 mg tablet 1 tab PO TID RF: 0 pantoprazole 40 mg tablet,delayed release (DR/EC) 1 tab PO BID RF: 0 nitrofurantoin macrocrystal 100 mg capsule 1 cap PO BEDTIME RF: 0 hydrochlorothiazide 12.5 mg capsule 1 cap PO DAILY RF: 0 metoprolol succinate 25 mg tablet extended release 24 hr 1 tab PO DAILY RF: 0 ipratropium bromide 21 mcg (0.03 %) spray,non-aerosol 2 spray intranasal BID RF: 0 insulin lispro [Humalog KwikPen Insulin] 100 unit/mL insulin pen subcut TID PRN (Reason: Hyperglycemia) RF: 0 Lantus Solostar U-100 Insulin 100 unit/mL (3 mL) insulin pen 14 unit subcut BEDTIME RF: 0 Myrbetriq 25 mg tablet extended release 24 hr 1 tab PO DAILY RF: 0
[2021-09-17 15:19] VITALS: BP 138/106; BP 160/80; PULSE 73; PULSE 87; RESP 16; TEMP 36.9; O2SAT 96; O2SAT 97; BMI 34.2
[2021-09-17 16:11] LABS: MANUAL DIFF FLAG NO
[2021-09-17 16:15] LABS: Basophils Percent Auto 0.2 % (0-2); Eosinophils Percent Auto 0.2 % (0-4); Hematocrit 41.3 % (37.0-47.0); Hemoglobin 14.2 g/dl (12.0-16.0); Imm Gran Abs Auto 0.04 X10*3/uL (0.00-0.03); Imm Gran Pct Auto 0.3 % (0.0-0.4); Lymphocytes Absolute Auto 1.5 X10*3/uL (1.2-4.9); Lymphocytes Percent Auto 12.1 % (20-40); Mean Corpuscular HGB Conc 34.4 g/dl (31.0-35.0); Mean Corpuscular Hemoglobin 32.6 pg (27.0-33.0); Mean Corpuscular Volume 94.7 fL (80.0-98.0); Mean Platelet Volume 9.6 fL (9.4-12.3); Monocytes Absolute Auto 0.4 X10*3/uL (0.1-1.2); Monocytes Percent Auto 3.1 % (2-11); Neutrophils Absolute Auto 10.5 x10*3/uL (2.0-8.3); Neutrophils Percent Auto 84.1 % (45-73); Platelet Count 241 X10*3/uL (160-400); Red Blood Count 4.36 X10*6/uL (4.20-5.50); Red Cell Distribution Width 13.5 % (11.0-16.0); White Blood Count 12.5 X10*3/uL (4.8-10.8)
[2021-09-17 16:18] LABS: VBG HCO3 29 mmol/L (22-26); VBG pCO2 53 mmHg; VBG pH 7.34 (7.32-7.43); VBG pO2 33 mmHg
[2021-09-17 16:20] LABS: Prothrombin Time 11.8 SEC (9.9-13.0)
[2021-09-17 16:20] LABS: Venous Blood Gas Refer to POC result
[2021-09-17 16:25] LABS: Ammonia 22 umol/L (13-55)
[2021-09-17 16:30] LABS: COVID-19 Test Negative (Negative)
[2021-09-17 16:39] LABS: Troponin-I High Sensitivity 5.5 ng/L (<3.5-17.0)
[2021-09-17 16:40] LABS: Alanine Aminotransferase 14 U/L (0-31); Albumin Level 4.5 g/dL (3.5-5.0); Alkaline Phosphatase 65 U/L (39-117); Anion Gap 19 (12-20); Aspartate Amino Transferase 17 U/L (5-31); Bilirubin Direct 0.3 mg/dL (0.0-0.5); Bilirubin Total 0.6 mg/dL (0.0-1.0); Blood Urea Nitrogen 19 mg/dL (9-16); Calcium 10.3 mg/dL (8.4-10.2); Carbon Dioxide 25 mmol/L (22-29); Chloride 101 mmol/L (96-108); Creatinine Clr Calc Pharmacy 71.7; Estimated Glomerular Filt Rate > 60; Glucose Random 270 mg/dL (60-115); Potassium 4.8 mmol/L (3.3-5.1); Sodium 140 mmol/L (135-145); Total Protein 7.8 g/dL (6.5-8.0)
[2021-09-17] MEDS: predniSONE 20 MG TABLET 60 MG PO (17:08)
[2021-09-17 17:40] LABS: Amphetamine Screen Urine Not Detected (Not Detect); Barbiturates, Urine Not Detected (Not Detect); Benzodiazepines Screen Urine Not Detected (Not Detect); Cannabinoid Screen Urine Not Detected (Not Detect); Cocaine Screen Urine Not Detected (Not Detect); Fentanyl, urine POSITIVE (Not Detect); Opiate Screen Urine Not Detected (Not Detect); Phencyclidine Screen Urine Not Detected (Not Detect)
[2021-09-17 18:00] VITALS: PULSE 84; RESP 18; O2SAT 100
--- NOTE | 2021-09-17 19:42 | PC.NURSE ---
Multiple attempts to contact pt's spouse regarding d/c. numbers in chart are not in service and home phone was busy
[2021-09-17 20:28] LABS: Appearance Urine CLEAR; Color Urine YELLOW; Glucose Urine UA NEG (NEG); Leukocyte Esterase Urine NEG (NEG); Nitrite Urine NEG (NEG); Specific Gravity - Urine 1.025 (1.005-1.025); UACC Culture Trigger NO; Urine Blood NEG (NEG); Urine Ketones 15 MG/DL (NEG); Urine Protein 2+ MG/DL (NEG-TRACE)
[2021-09-17 20:37] LABS: Bacteria Urine 1+ /LPF; Mucus Urine 2+ /LPF; RBC Urine 0-2 /HPF (0); Squamous Epithelial Cell Urine 1+ /LPF; WBC Urine 0 /HPF (0-4)
--- NOTE | 2021-09-17 20:39 | PC.NURSE ---
Ant [phone]
[2021-09-17 20:42] VITALS: BP 130/62; PULSE 64; RESP 16; TEMP 36.1; O2SAT 97
--- NOTE | 2021-09-17 20:43 | PC.NURSE ---
PATIENT WAS INC OF URINE ,CARE WAS GIVEN ,BEDDING WAS CHANGE AND PATIENT TOOK 120 CC OF ORANGE JUICE
== END 2021-09-17 20:58 | disposition home or self-care (01) ==
PROVIDERS: Emergency Provider Emergency Medicine
DX: G51.0 Bell's palsy (principal); R41.82 Altered mental status, unspecified; R51.9 Headache, unspecified; Z20.822 Contact with and (suspected) exposure to COVID-19; G31.83 Neurocognitive disorder with Lewy bodies; F02.80 Dementia in other diseases classified elsewhere, unspecified severity, without behavioral disturbance, psychotic disturbance, mood disturbance, and anxiety; E11.9 Type 2 diabetes mellitus without complications; I10 Essential (primary) hypertension; E78.5 Hyperlipidemia, unspecified; Z86.73 Personal history of transient ischemic attack (TIA), and cerebral infarction without residual deficits; Z79.82 Long term (current) use of aspirin; Z79.02 Long term (current) use of antithrombotics/antiplatelets; Z79.4 Long term (current) use of insulin; Z79.899 Other long term (current) drug therapy
CPT/HCPCS: 36415; 51701; 70450; 80048; 80076; 80307; 81001; 82140; 82803; 84484; 85025; 85610; 87635; 93005; 99284

== ENCOUNTER 2021-09-18 15:09 | Inpatient (IN) | payer MEDICARE, OTHER, SELFPAY ==
[2021-09-18] VITALS (8 sets, daily range): BP systolic 80–152; BP diastolic 43–100; PULSE 50–84; RESP 12–22; TEMP 35.1–36.6; O2SAT 97–100; BMI 22.8; BMI 30.1
--- NOTE | ~2021-09-18 | CT_ITS ---
EXAMINATION: CT HEAD WITHOUT CONTRAST CT CERVICAL SPINE WITHOUT CONTRAST CLINICAL INFORMATION: found unresponsive on floor COMPARISON: CT head 09/17/2021 TECHNIQUE: Imaging was performed from the skull base to vertex without intravenous administration of contrast. In addition, helical noncontrast CT imaging was acquired through the cervical spine and source images were reviewed along with axial reconstructions and sagittal and coronal MPRs. [This CT examination was performed using dose optimization techniques as appropriate, variously including the following: *Automated exposure control *Adjustment of mA and/or kV according to patient size (this includes techniques or standardized protocols for targeted exams where dose is matched to indication/reason for exam; i.e. 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 Stable old infarct in the left superior cerebral hemisphere. No acute intracranial abnormality. No intracranial mass, hemorrhage, or midline shift is visualized. There is generalized global volume loss. There is moderate prominence of the ventricles and the sulci . There is mild hypodensity of the periventricular white matter due to chronic small vessel ischemic disease. There are vascular calcifications of the internal carotid arteries bilaterally. No extra-axial collections are identified. The paranasal sinuses and mastoid air cells are well aerated. CERVICAL SPINE: There is no evidence of acute cervical spine fracture. Vertebral bodies remain normal in height. Cervical vertebrae have normal alignment. Cervical disc heights are normal. Facet joints are normal. Transpedicular screws with vertical stabilization bars at the thoracic spine partially imaged. No pre- or paravertebral soft tissue abnormality is identified. Limited assessment of the lung apices is unremarkable. CT/CT cervical spine wo con IMPRESSION: 1. No acute intracranial pathology. 2. No CT evidence of acute cervical spine fracture or traumatic subluxation
--- NOTE | ~2021-09-18 | XR_ITS ---
EXAMINATION: XR ABDOMEN KUB CLINICAL INDICATION: Pre-MRI COMPARISON: None TECHNIQUE: 3 views of the abdomen. FINDINGS: Numerous wires and clips overlie the abdomen. Clips upper quadrant consistent previous surgery. There are 2 electrodes noted overlying the right abdomen. Right femoral line partially imaged. XR/XR KUB IMPRESSION: Electrodes right abdomen of indeterminate significance. Needs correlation with surgical report to assess for compatibility with MRI.
--- NOTE | ~2021-09-18 | XR_ITS ---
EXAMINATION: XR CHEST CLINICAL INFORMATION: Hypertension COMPARISON: None TECHNIQUE: Frontal view of the chest was obtained. FINDINGS: The lungs are hypoexpanded with increased bilateral parahilar markings. No acute consolidation or pleural effusion seen. Heart size is borderline enlarged with normal appearing pulmonary vascularity. There are 2 short Simental rods in the upper thoracic spine and multiple pedicular screws holding the rods for stabilization of upper dorsal spine. XR/XR chest 1V IMPRESSION: Hypoexpanded lungs without acute process seen.
--- NOTE | 2021-09-18 15:45 | PC.NURSE ---
two doses nasal narcan given to patient with md at bedside. patient slightly more arousable and moving in bed, but does not offer responses to staff.
--- NOTE | 2021-09-18 15:46 | ECG_ITS ---
Test Reason : HYPOTENSIVE, BRADYCARDIA, AMS Blood Pressure : / mmHG Vent. Rate : 043 BPM Atrial Rate : 043 BPM P-R Int : 116 ms QRS Dur : 084 ms QT Int : 522 ms P-R-T Axes : 000 039 099 degrees QTc Int : 441 ms Marked sinus bradycardia nonspecific T wave changes Abnormal ECG When compared with ECG of 17-SEP-2021 15:43, Vent. rate has decreased BY 34 BPM Nonspecific T wave abnormality no longer evident in Inferior leads T wave inversion now evident in Anterior leads Referred By: Leticia Barrett Electronically Signed By:Jose Otero
--- NOTE | 2021-09-18 15:51 | ED_ITS ---
HPI - General Adult General Chief complaint: Altered Mental Status Stated complaint: STROKE Time Seen by Provider: 09/18/21 15:16 Source: EMS Mode of arrival: EMS Limitations: altered mental status History of Present Illness HPI narrative: Patient comes to the emergency room today via EMS. Patient has worsening altered mental status. EMS reports that the found patient on the floor, very somnolent. Patient was seen here yesterday for similar symptoms. At this time, patient is unable to give any history. Related Data Home Medications Medication Instructions Recorded Confirmed acetaminophen 500 mg tablet 2 tab PO DAILY PRN 08/06/21 08/06/21 amlodipine 5 mg tablet 1 tab PO DAILY 08/06/21 08/06/21 aspirin 81 mg tablet,delayed 1 tab PO QAM 08/06/21 08/06/21 release atorvastatin 80 mg tablet 1 tab PO DAILY 08/06/21 08/06/21 baclofen 10 mg tablet 1 tab PO TID 08/06/21 08/06/21 donepezil 5 mg tablet 1 tab PO DAILY 08/06/21 08/06/21 hydrochlorothiazide 12.5 mg capsule 1 cap PO DAILY 08/06/21 08/06/21 insulin glargine 100 unit/mL (3 14 unit SUBCUT BEDTIME 08/06/21 08/06/21 mL) subcutaneous pen (Lantus Solostar U-100 Insulin) insulin lispro 100 unit/mL SUBCUT TID PRN 08/06/21 subcutaneous pen (Humalog KwikPen (U-100) Insulin) ipratropium bromide 21 mcg (0.03 2 spray INTRANASAL BID 08/06/21 08/06/21 %) nasal spray meclizine 25 mg tablet 1 tab PO BID PRN 08/06/21 08/06/21 metoprolol succinate 25 mg 1 tab PO DAILY 08/06/21 08/06/21 tablet,extended release 24 hr mirabegron 25 mg tablet,extended 1 tab PO DAILY 08/06/21 08/06/21 release 24 hr (Myrbetriq) nitrofurantoin macrocrystal 100 mg 1 cap PO BEDTIME 08/06/21 08/06/21 capsule pantoprazole 40 mg tablet,delayed 1 tab PO BID 08/06/21 08/06/21 release quetiapine 25 mg tablet 25 mg PO BEDTIME 08/06/21 08/06/21 valsartan 80 mg tablet 1 tab PO QAM 08/06/21 08/06/21 Allergies Allergy/AdvReac Type Severity Reaction Status Date / Time Sulfa (Sulfonamide Allergy Severe DIFFICULTY Verified 02/28/21 15:39 Antibiotics) BREATHING [SULFA (SULFONAMIDE ANTIBIOTICS)] cephalexin [From KEFLEX] Allergy Intermediate RASH,HIVES Verified 02/28/21 15:39 amoxicillin [AMOXICILLIN] Allergy Unknown DENIES Verified 02/28/21 15:39 THIS ALLERGY 03/28/2018 penicillin V Allergy Unknown Unknown Verified 02/28/21 15:39 sumatriptan [From IMITREX] AdvReac Severe HEART Verified 02/28/21 15:39 PALPITATIONS topiramate [From TOPAMAX] AdvReac Severe AGITATION Verified 02/28/21 15:39 Review of Systems Review of Systems: Yes Unobtainable due to mental condition and Unobtainable due to mental status PMFSH Past Medical History Medical History Anxiety Asthma CHF (congestive heart failure) Cortical blindness Diabetes Diabetic acetonemia Dyspnea on exertion Essential hypertension HTN (hypertension) Myalgia and myositis Neuropathy Nocturnal hypoxemia Obesity (BMI 30-39.9) Orthopnea Restrictive lung disease 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 Mother Angina at rest Sister Lung cancer Colon cancer COPD (chronic obstructive pulmonary disease) Social History Social History Household Members: Spouse Housing: Apartment Do you presently have visiting nurse or other home services: Yes (1X/wk) Unable to assess alcohol history related to: Refusing to respond Alcohol intake: unknown Patient Tobacco Use Status: Never used Tobacco e-Cigarette/Vaping Use: Never Used Second Hand Smoke Exposure: No Advance Directives: Yes Advance Directives on File: Yes Advance Directives Date on File: 07/27/20 service: No Current occupational status: unemployed and disabled Current occupation: right handed Sexual orientation: Straight/Heterosexual Physical Exam Vital Signs: Vital Signs: Last Vital Signs Pulse 57 09/18/21 15:23 Resp 14 09/18/21 15:23 BP 80/43 L 09/18/21 15:23 Pulse Ox 97 09/18/21 15:23 BMI result Body Mass Index 30.1 Const: Other: Appearance: Somnolent, responds to painful stimuli. Tries to move her arm away when IV was started. Eyes: Pupils equal, round and reactive to light. Pinpoint pupils ENT: Pharynx normal. Neck: Normal inspection. Neck supple. No lymph nodes noted. No crepitus CVS: Normal heart rate and rhythm. Pulses normal. Normal S1 and S2 Respiratory: No respiratory distress. Breath sounds normal. No Wheezing. No rales Abdomen: Soft and nontender. No rigidity. No distention. Skin: Skin warm and cool to touch, Normal skin color. Normal skin turgor. Extremities: No lower extremity edema. No lower extremity edema. No Lacerations. No Rash Neuro: Oriented X 3. No motor deficit. No sensory deficit. Moving all extermities. No slurred speech. Course Course Course Narrative: Patient's blood pressure is in the low 80s. Patient receiving IV fluids. At this time, it is unclear if patient accidentally overdosed on her medications. Patient is known to take metoprolol at home. Patient is given calcium gluconate at this time. Patient is bradycardic. At this time, Dr. Powell is also at bedside, taking over the patient's care. Atropine has been ordered. After 0.5 mg, heart rate improved to 72, blood pressure 118 systolic. All of patient's labs are pending and CT imaging as well. Patient may need a lumbar puncture. REctal temperature has been requested. Dr. Powell at bedside, taking over patient's care. At this point, etiology of patient's signs/symptoms remains undetermined Medical Decision Making Lab Data Result diagrams: 09/18/21 16:01 09/18/21 16:01 Labs: Lab Results 09/18/21 09/18/21 09/18/21 Range/Units 16:01 16:01 16:01 WBC 15.4 H (4.8-10.8) X10*3/uL RBC 4.09 L (4.20-5.50) X10*6/uL Hgb 13.2 (12.0-16.0) g/dl Hct 39.3 (37.0-47.0) % MCV 96.1 (80.0-98.0) fL MCH 32.3 (27.0-33.0) pg MCHC 33.6 (31.0-35.0) g/dl RDW 13.7 (11.0-16.0) % Plt Count 261 (160-400) X10*3/uL MPV 9.8 (9.4-12.3) fL Immature Gran % (Auto) 0.5 H (0.0-0.4) % Neut % (Auto) 72.0 (45-73) % Lymph % (Auto) 17.2 L (20-40) % [place] % (Auto) 10.1 (2-11) % Eos % (Auto) 0.1 (0-4) % Baso % (Auto) 0.1 (0-2) % Lymph # (Auto) 2.6 (1.2-4.9) X10*3/uL [place] # (Auto) 1.6 H (0.1-1.2) X10*3/uL Eos # (Auto) 0.0 (0.0-0.4) X10*3/uL Baso # (Auto) 0.0 (0.0-0.2) X10*3/uL Abs Immat Gran (auto) 0.08 H (0.00-0.03) X10*3/uL Absolute Neuts (auto) 11.1 H (2.0-8.3) x10*3/uL Absolute Nucleated RBC 0.000 (0.0-0.012) X10*3/uL Nucleated RBC % (auto) 0.0 (0.0-0.2) /100WBC Smear Tech's Comments VERIFIED PT 12.1 (9.9-13.0) SEC INR 1.1 (0.9-1.1) Sodium 143 (135-145) mmol/L Potassium 3.5 D (3.3-5.1) mmol/L Chloride 106 (96-108) mmol/L Carbon Dioxide 22 (22-29) mmol/L Anion Gap 19 (12-20) BUN 27 H (9-16) mg/dL Creatinine 1.29 (0.5-1.4) mg/dL Estim Creat Clear Calc 38.9 Estimated GFR 42 POC Glucose (60-115) mg/dL Random Glucose 97 (60-115) mg/dL Lactic Acid (0.5-2.0) mmol/L Calcium 10.1 (8.4-10.2) mg/dL Magnesium 2.0 (1.6-2.6) mg/dL Total Bilirubin 0.7 (0.0-1.0) mg/dL Direct Bilirubin 0.2 (0.0-0.5) mg/dL AST 30 D (5-31) U/L ALT 15 (0-31) U/L Alkaline Phosphatase 53 (39-117) U/L Troponin I High Sens (<3.5-17.0) ng/L Total Protein 7.3 (6.5-8.0) g/dL Albumin 4.3 (3.5-5.0) g/dL Lipase 33 (8-78) U/L Urine Color Urine Appearance Urine pH (5.0-8.0) Ur Specific Shirley (1.005-1.025) Urine Protein (NEG-TRACE) MG/DL Urine Glucose (UA) (NEG) MG/DL Urine Ketones (NEG) MG/DL Urine Blood (NEG) Urine Nitrite (NEG) Ur Leukocyte Esterase (NEG) Urine RBC (0) /HPF Urine WBC (0-4) /HPF Ur Squamous Epith Cells /LPF Amorphous Sediment /LPF Urine Bacteria /LPF Urine Mucus /LPF Ethyl Alcohol mg/dL COVID-19 (FLOR) (Negative) COVID-19 Clin Com 09/18/21 09/18/21 09/18/21 Range/Units 16:01 16:01 16:01 WBC (4.8-10.8) X10*3/uL RBC (4.20-5.50) X10*6/uL Hgb (12.0-16.0) g/dl Hct (37.0-47.0) % MCV (80.0-98.0) fL MCH (27.0-33.0) pg MCHC (31.0-35.0) g/dl RDW (11.0-16.0) % Plt Count (160-400) X10*3/uL MPV (9.4-12.3) fL Immature Gran % (Auto) (0.0-0.4) % Neut % (Auto) (45-73) % Lymph % (Auto) (20-40) % [place] % (Auto) (2-11) % Eos % (Auto) (0-4) % Baso % (Auto) (0-2) % Lymph # (Auto) (1.2-4.9) X10*3/uL [place] # (Auto) (0.1-1.2) X10*3/uL Eos # (Auto) (0.0-0.4) X10*3/uL Baso # (Auto) (0.0-0.2) X10*3/uL Abs Immat Gran (auto) (0.00-0.03) X10*3/uL Absolute Neuts (auto) (2.0-8.3) x10*3/uL Absolute Nucleated RBC (0.0-0.012) X10*3/uL Nucleated RBC % (auto) (0.0-0.2) /100WBC Smear Tech's Comments PT (9.9-13.0) SEC INR (0.9-1.1) Sodium (135-145) mmol/L Potassium (3.3-5.1) mmol/L Chloride (96-108) mmol/L Carbon Dioxide (22-29) mmol/L Anion Gap (12-20) BUN (9-16) mg/dL Creatinine (0.5-1.4) mg/dL Estim Creat Clear Calc Estimated GFR POC Glucose (60-115) mg/dL Random Glucose (60-115) mg/dL Lactic Acid 3.8 H* (0.5-2.0) mmol/L Calcium (8.4-10.2) mg/dL Magnesium (1.6-2.6) mg/dL Total Bilirubin (0.0-1.0) mg/dL Direct Bilirubin (0.0-0.5) mg/dL AST (5-31) U/L ALT (0-31) U/L Alkaline Phosphatase (39-117) U/L Troponin I High Sens 19.9 H D (<3.5-17.0) ng/L Total Protein (6.5-8.0) g/dL Albumin (3.5-5.0) g/dL Lipase (8-78) U/L Urine Color Urine Appearance Urine pH (5.0-8.0) Ur Specific Shirley (1.005-1.025) Urine Protein (NEG-TRACE) MG/DL Urine Glucose (UA) (NEG) MG/DL Urine Ketones (NEG) MG/DL Urine Blood (NEG) Urine Nitrite (NEG) Ur Leukocyte Esterase (NEG) Urine RBC (0) /HPF Urine WBC (0-4) /HPF Ur Squamous Epith Cells /LPF Amorphous Sediment /LPF Urine Bacteria /LPF Urine Mucus /LPF Ethyl Alcohol mg/dL COVID-19 (FLOR) Negative (Negative) COVID-19 Clin Com See Note 09/18/21 09/18/21 09/18/21 Range/Units 16:01 16:15 16:38 WBC (4.8-10.8) X10*3/uL RBC (4.20-5.50) X10*6/uL Hgb (12.0-16.0) g/dl Hct (37.0-47.0) % MCV (80.0-98.0) fL MCH (27.0-33.0) pg MCHC (31.0-35.0) g/dl RDW (11.0-16.0) % Plt Count (160-400) X10*3/uL MPV (9.4-12.3) fL Immature Gran % (Auto) (0.0-0.4) % Neut % (Auto) (45-73) % Lymph % (Auto) (20-40) % [place] % (Auto) (2-11) % Eos % (Auto) (0-4) % Baso % (Auto) (0-2) % Lymph # (Auto) (1.2-4.9) X10*3/uL [place] # (Auto) (0.1-1.2) X10*3/uL Eos # (Auto) (0.0-0.4) X10*3/uL Baso # (Auto) (0.0-0.2) X10*3/uL Abs Immat Gran (auto) (0.00-0.03) X10*3/uL Absolute Neuts (auto) (2.0-8.3) x10*3/uL Absolute Nucleated RBC (0.0-0.012) X10*3/uL Nucleated RBC % (auto) (0.0-0.2) /100WBC Smear Tech's Comments PT (9.9-13.0) SEC INR (0.9-1.1) Sodium (135-145) mmol/L Potassium (3.3-5.1) mmol/L Chloride (96-108) mmol/L Carbon Dioxide (22-29) mmol/L Anion Gap (12-20) BUN (9-16) mg/dL Creatinine (0.5-1.4) mg/dL Estim Creat Clear Calc Estimated GFR POC Glucose 212 H (60-115) mg/dL Random Glucose (60-115) mg/dL Lactic Acid (0.5-2.0) mmol/L Calcium (8.4-10.2) mg/dL Magnesium (1.6-2.6) mg/dL Total Bilirubin (0.0-1.0) mg/dL Direct Bilirubin (0.0-0.5) mg/dL AST (5-31) U/L ALT (0-31) U/L Alkaline Phosphatase (39-117) U/L Troponin I High Sens (<3.5-17.0) ng/L Total Protein (6.5-8.0) g/dL Albumin (3.5-5.0) g/dL Lipase (8-78) U/L Urine Color YELLOW Urine Appearance HAZY Urine pH 7.0 (5.0-8.0) Ur Specific Shirley 1.020 (1.005-1.025) Urine Protein 2+ H (NEG-TRACE) MG/DL Urine Glucose (UA) NEG (NEG) MG/DL Urine Ketones NEG (NEG) MG/DL Urine Blood TRACE (NEG) Urine Nitrite NEG (NEG) Ur Leukocyte Esterase NEG (NEG) Urine RBC 1-4 (0) /HPF Urine WBC 0-2 (0-4) /HPF Ur Squamous Epith Cells 1+ /LPF Amorphous Sediment 1+ /LPF Urine Bacteria TRACE /LPF Urine Mucus TRACE /LPF Ethyl Alcohol < 10 mg/dL COVID-19 ([facility]) (Negative) COVID-19 Clin Com Discharge Plan Discharge Clinical Impression: Encephalopathy, Acute hypotension Patient Disposition: Still a Patient Prescriptions: No Action quetiapine 25 mg tablet 25 mg PO BEDTIME RF: 0 atorvastatin 80 mg tablet 1 tab PO DAILY RF: 0 donepezil 5 mg tablet 1 tab PO DAILY RF: 0 valsartan 80 mg tablet 1 tab PO QAM RF: 0 amlodipine 5 mg tablet 1 tab PO DAILY RF: 0 aspirin 81 mg tablet,delayed release (DR/EC) 1 tab PO QAM RF: 0 acetaminophen 500 mg tablet 2 tab PO DAILY PRN (Reason: Pain) RF: 0 meclizine 25 mg tablet 1 tab PO BID PRN (Reason: Dizziness) RF: 0 baclofen 10 mg tablet 1 tab PO TID RF: 0 pantoprazole 40 mg tablet,delayed release (DR/EC) 1 tab PO BID RF: 0 nitrofurantoin macrocrystal 100 mg capsule 1 cap PO BEDTIME RF: 0 hydrochlorothiazide 12.5 mg capsule 1 cap PO DAILY RF: 0 metoprolol succinate 25 mg tablet extended release 24 hr 1 tab PO DAILY RF: 0 ipratropium bromide 21 mcg (0.03 %) spray,non-aerosol 2 spray intranasal BID RF: 0 insulin lispro [Humalog KwikPen Insulin] 100 unit/mL insulin pen subcut TID PRN (Reason: Hyperglycemia) RF: 0 Lantus Solostar U-100 Insulin 100 unit/mL (3 mL) insulin pen 14 unit subcut BEDTIME RF: 0 Myrbetriq 25 mg tablet extended release 24 hr 1 tab PO DAILY RF: 0
[2021-09-18 16:09] LABS: Basophils Percent Auto 0.1 % (0-2); Eosinophils Percent Auto 0.1 % (0-4); Hematocrit 39.3 % (37.0-47.0); Hemoglobin 13.2 g/dl (12.0-16.0); Imm Gran Abs Auto 0.08 X10*3/uL (0.00-0.03); Imm Gran Pct Auto 0.5 % (0.0-0.4); Lymphocytes Absolute Auto 2.6 X10*3/uL (1.2-4.9); Lymphocytes Percent Auto 17.2 % (20-40); MANUAL DIFF FLAG SCAN; Mean Corpuscular HGB Conc 33.6 g/dl (31.0-35.0); Mean Corpuscular Hemoglobin 32.3 pg (27.0-33.0); Mean Corpuscular Volume 96.1 fL (80.0-98.0); Mean Platelet Volume 9.8 fL (9.4-12.3); Monocytes Absolute Auto 1.6 X10*3/uL (0.1-1.2); Monocytes Percent Auto 10.1 % (2-11); Neutrophils Absolute Auto 11.1 x10*3/uL (2.0-8.3); Platelet Count 261 X10*3/uL (160-400); Red Blood Count 4.09 X10*6/uL (4.20-5.50); Red Cell Distribution Width 13.7 % (11.0-16.0); SCAN SMEAR FLAG 1; White Blood Count 15.4 X10*3/uL (4.8-10.8)
[2021-09-18] MEDS: 0.9 % Sodium Chloride 1,000 ML 999 ML IVCONT ×2 (16:14)
[2021-09-18 16:18] LABS: Glucose, Whole Blood 212 mg/dL (60-115)
[2021-09-18 16:19] LABS: INTERNATIONAL NORM RATIO 1.1 (0.9-1.1); Prothrombin Time 12.1 SEC (9.9-13.0)
[2021-09-18 16:22] LABS: COVID-19 Test Negative (Negative); Ethanol < 10 mg/dL; IDNOW Serial# 9DD0AD1C
[2021-09-18 16:24] LABS: Lactic Acid 3.8 mmol/L (0.5-2.0)
[2021-09-18 16:29] LABS: SLIDE REVIEW VERIFIED
[2021-09-18 16:32] LABS: Troponin-I High Sensitivity 19.9 ng/L (<3.5-17.0)
[2021-09-18 16:37] LABS: Alanine Aminotransferase 15 U/L (0-31); Albumin Level 4.3 g/dL (3.5-5.0); Alkaline Phosphatase 53 U/L (39-117); Anion Gap 19 (12-20); Aspartate Amino Transferase 30 U/L (5-31); Bilirubin Direct 0.2 mg/dL (0.0-0.5); Bilirubin Total 0.7 mg/dL (0.0-1.0); Blood Urea Nitrogen 27 mg/dL (9-16); Calcium 10.1 mg/dL (8.4-10.2); Carbon Dioxide 22 mmol/L (22-29); Chloride 106 mmol/L (96-108); Creatinine Clr Calc Pharmacy 38.9; Estimated Glomerular Filt Rate 42; Glucose Random 97 mg/dL (60-115); Lipase 33 U/L (8-78); Potassium 3.5 mmol/L (3.3-5.1); Sodium 143 mmol/L (135-145); Total Protein 7.3 g/dL (6.5-8.0)
[2021-09-18 16:43] LABS: Appearance Urine HAZY; Color Urine YELLOW; Glucose Urine UA NEG (NEG); Leukocyte Esterase Urine NEG (NEG); Nitrite Urine NEG (NEG); UACC Culture Trigger NO; Urine Blood TRACE (NEG); Urine Ketones NEG (NEG); Urine Protein 2+ MG/DL (NEG-TRACE)
[2021-09-18] MEDS: Atropine Sulfate 1 MG/10 ML SYRINGE 0.5 MG IVPUSH ×2 (16:46→17:46)
[2021-09-18] MEDS: Calcium Gluconate/NaCl,Iso-Osm 2 GM/100 ML PLAST..BAG IV (16:47)
[2021-09-18 16:57] LABS: TSH reflex Free T4 2.11 uIU/mL (0.32-4.0)
[2021-09-18 16:57] LABS: Amorphous Sediment Urine 1+ /LPF; Bacteria Urine TRACE /LPF; Mucus Urine TRACE /LPF; Squamous Epithelial Cell Urine 1+ /LPF; WBC Urine 0-2 /HPF (0-4)
[2021-09-18 17:00] LABS: Amphetamine Screen Urine Not Detected (Not Detect); Barbiturates, Urine Not Detected (Not Detect); Benzodiazepines Screen Urine Not Detected (Not Detect); Cannabinoid Screen Urine Not Detected (Not Detect); Cocaine Screen Urine Not Detected (Not Detect); Fentanyl, urine POSITIVE (Not Detect); Opiate Screen Urine Not Detected (Not Detect); Phencyclidine Screen Urine Not Detected (Not Detect)
[2021-09-18 18:04] LABS: Reflex Lactate? Lactic Acid Added
--- NOTE | 2021-09-18 18:37 | ED_ITS ---
HPI - Altered Mental Status General Chief Complaint: Altered Mental Status Stated Complaint: STROKE Time Seen by Provider: 09/18/21 15:16 Source: EMS Mode of arrival: EMS Limitations: altered mental status Related Data Home Medications Medication Instructions Recorded Confirmed acetaminophen 500 mg tablet 2 tab PO DAILY PRN 08/06/21 08/06/21 amlodipine 5 mg tablet 1 tab PO DAILY 08/06/21 08/06/21 aspirin 81 mg tablet,delayed 1 tab PO QAM 08/06/21 08/06/21 release atorvastatin 80 mg tablet 1 tab PO DAILY 08/06/21 08/06/21 baclofen 10 mg tablet 1 tab PO TID 08/06/21 08/06/21 donepezil 5 mg tablet 1 tab PO DAILY 08/06/21 08/06/21 hydrochlorothiazide 12.5 mg capsule 1 cap PO DAILY 08/06/21 08/06/21 insulin glargine 100 unit/mL (3 14 unit SUBCUT BEDTIME 08/06/21 08/06/21 mL) subcutaneous pen (Lantus Solostar U-100 Insulin) insulin lispro 100 unit/mL SUBCUT TID PRN 08/06/21 subcutaneous pen (Humalog KwikPen (U-100) Insulin) ipratropium bromide 21 mcg (0.03 2 spray INTRANASAL BID 08/06/21 08/06/21 %) nasal spray meclizine 25 mg tablet 1 tab PO BID PRN 08/06/21 08/06/21 metoprolol succinate 25 mg 1 tab PO DAILY 08/06/21 08/06/21 tablet,extended release 24 hr mirabegron 25 mg tablet,extended 1 tab PO DAILY 08/06/21 08/06/21 release 24 hr (Myrbetriq) nitrofurantoin macrocrystal 100 mg 1 cap PO BEDTIME 08/06/21 08/06/21 capsule pantoprazole 40 mg tablet,delayed 1 tab PO BID 08/06/21 08/06/21 release quetiapine 25 mg tablet 25 mg PO BEDTIME 08/06/21 08/06/21 valsartan 80 mg tablet 1 tab PO QAM 08/06/21 08/06/21 Allergies Allergy/AdvReac Type Severity Reaction Status Date / Time Sulfa (Sulfonamide Allergy Severe DIFFICULTY Verified 02/28/21 15:39 Antibiotics) BREATHING [SULFA (SULFONAMIDE ANTIBIOTICS)] cephalexin [From KEFLEX] Allergy Intermediate RASH,HIVES Verified 02/28/21 15:39 amoxicillin [AMOXICILLIN] Allergy Unknown DENIES Verified 02/28/21 15:39 THIS ALLERGY 03/28/2018 penicillin V Allergy Unknown Unknown Verified 02/28/21 15:39 sumatriptan [From IMITREX] AdvReac Severe HEART Verified 02/28/21 15:39 PALPITATIONS topiramate [From TOPAMAX] AdvReac Severe AGITATION Verified 02/28/21 15:39 COUNTS INCLUDE 234 BEDS AT THE [facility] Past Medical History Medical History Anxiety Asthma CHF (congestive heart failure) Cortical blindness Diabetes Diabetic acetonemia Dyspnea on exertion Essential hypertension HTN (hypertension) Myalgia and myositis Neuropathy Nocturnal hypoxemia Obesity (BMI 30-39.9) Orthopnea Restrictive lung disease 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 Mother Angina at rest Sister Lung cancer Colon cancer COPD (chronic obstructive pulmonary disease) Social History Social History Household Members: Spouse Housing: Apartment Do you presently have visiting nurse or other home services: Yes (1X/wk) Unable to assess alcohol history related to: Refusing to respond Alcohol intake: unknown Patient Tobacco Use Status: Never used Tobacco e-Cigarette/Vaping Use: Never Used Second Hand Smoke Exposure: No Advance Directives: Yes Advance Directives on File: Yes Advance Directives Date on File: 07/27/20 service: No Current occupational status: unemployed and disabled Current occupation: right handed Sexual orientation: Straight/Heterosexual Physical Exam Vital Signs: Vital Signs: Last Vital Signs Temp 99.1 F 09/19/21 01:52 Pulse 86 09/19/21 01:52 Resp 14 09/19/21 01:52 BP 132/52 L 09/19/21 01:52 Pulse Ox 96 09/19/21 01:52 BMI result Body Mass Index 30.1 Course Reevaluation(s) Reevaluation #1: Patient is still obtunded on Levophed keeping the blood pressure 110/70 heart rate in 40s sinus bradycardia arousable to painful stimuli none fall sleep etiology not very clear likely metabolic encephalopathy from med polypharmacy. 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 Result diagrams: 09/18/21 16:01 09/18/21 16:01 Labs: Lab Results 09/18/21 09/18/21 09/18/21 Range/Units 16:01 16:01 16:01 WBC 15.4 H (4.8-10.8) X10*3/uL RBC 4.09 L (4.20-5.50) X10*6/uL Hgb 13.2 (12.0-16.0) g/dl Hct 39.3 (37.0-47.0) % MCV 96.1 (80.0-98.0) fL MCH 32.3 (27.0-33.0) pg MCHC 33.6 (31.0-35.0) g/dl RDW 13.7 (11.0-16.0) % Plt Count 261 (160-400) X10*3/uL MPV 9.8 (9.4-12.3) fL Immature Gran % (Auto) 0.5 H (0.0-0.4) % Neut % (Auto) 72.0 (45-73) % Lymph % (Auto) 17.2 L (20-40) % [place] % (Auto) 10.1 (2-11) % Eos % (Auto) 0.1 (0-4) % Baso % (Auto) 0.1 (0-2) % Lymph # (Auto) 2.6 (1.2-4.9) X10*3/uL [place] # (Auto) 1.6 H (0.1-1.2) X10*3/uL Eos # (Auto) 0.0 (0.0-0.4) X10*3/uL Baso # (Auto) 0.0 (0.0-0.2) X10*3/uL Abs Immat Gran (auto) 0.08 H (0.00-0.03) X10*3/uL Absolute Neuts (auto) 11.1 H (2.0-8.3) x10*3/uL Absolute Nucleated RBC 0.000 (0.0-0.012) X10*3/uL Nucleated RBC % (auto) 0.0 (0.0-0.2) /100WBC Smear Tech's Comments VERIFIED PT 12.1 (9.9-13.0) SEC INR 1.1 (0.9-1.1) VBG pH (7.32-7.43) VBG pCO2 mmHg VBG pO2 mmHg VBG HCO3 (22-26) mmol/L VBG O2 Saturation % VBG Base Excess mmol/L Sodium 143 (135-145) mmol/L Potassium 3.5 D (3.3-5.1) mmol/L Chloride 106 (96-108) mmol/L Carbon Dioxide 22 (22-29) mmol/L Anion Gap 19 (12-20) BUN 27 H (9-16) mg/dL Creatinine 1.29 (0.5-1.4) mg/dL Estim Creat Clear Calc 38.9 Estimated GFR 42 POC Glucose (60-115) mg/dL Random Glucose 97 (60-115) mg/dL Lactic Acid (0.5-2.0) mmol/L Lactic Acid F/U @ 2Hr (0.5-2.0) mmol/L Calcium 10.1 (8.4-10.2) mg/dL Magnesium 2.0 (1.6-2.6) mg/dL Total Bilirubin 0.7 (0.0-1.0) mg/dL Direct Bilirubin 0.2 (0.0-0.5) mg/dL AST 30 D (5-31) U/L ALT 15 (0-31) U/L Alkaline Phosphatase 53 (39-117) U/L Ammonia (13-55) umol/L Total Creatine Kinase 781 H D (26-140) U/L Troponin I High Sens (<3.5-17.0) ng/L Total Protein 7.3 (6.5-8.0) g/dL Albumin 4.3 (3.5-5.0) g/dL Lipase 33 (8-78) U/L Procalcitonin ng/mL TSH 2.11 (0.32-4.0) uIU/mL Urine Color Urine Appearance Urine pH (5.0-8.0) Ur Specific [place] (1.005-1.025) Urine Protein (NEG-TRACE) MG/DL Urine Glucose (UA) (NEG) MG/DL Urine Ketones (NEG) MG/DL Urine Blood (NEG) Urine Nitrite (NEG) Ur Leukocyte Esterase (NEG) Urine RBC (0) /HPF Urine WBC (0-4) /HPF Ur Squamous Epith Cells /LPF Amorphous Sediment /LPF Urine Bacteria /LPF Urine Mucus /LPF Urine Opiates Screen (Not Detect) Urine Fentanyl Screen (Not Detect) Ur Barbiturates Screen (Not Detect) Ur Phencyclidine Scrn (Not Detect) Ur Amphetamines Screen (Not Detect) U Benzodiazepines Scrn (Not Detect) Urine Cocaine Screen (Not Detect) U Marijuana (THC) Screen (Not Detect) Ethyl Alcohol mg/dL COVID-19 (FLOR) (Negative) COVID-19 Clin Com 09/18/21 09/18/21 09/18/21 Range/Units 16:01 16:01 16:01 WBC (4.8-10.8) X10*3/uL RBC (4.20-5.50) X10*6/uL Hgb (12.0-16.0) g/dl Hct (37.0-47.0) % MCV (80.0-98.0) fL MCH (27.0-33.0) pg MCHC (31.0-35.0) g/dl RDW (11.0-16.0) % Plt Count (160-400) X10*3/uL MPV (9.4-12.3) fL Immature Gran % (Auto) (0.0-0.4) % Neut % (Auto) (45-73) % Lymph % (Auto) (20-40) % [place] % (Auto) (2-11) % Eos % (Auto) (0-4) % Baso % (Auto) (0-2) % Lymph # (Auto) (1.2-4.9) X10*3/uL [place] # (Auto) (0.1-1.2) X10*3/uL Eos # (Auto) (0.0-0.4) X10*3/uL Baso # (Auto) (0.0-0.2) X10*3/uL Abs Immat Gran (auto) (0.00-0.03) X10*3/uL Absolute Neuts (auto) (2.0-8.3) x10*3/uL Absolute Nucleated RBC (0.0-0.012) X10*3/uL Nucleated RBC % (auto) (0.0-0.2) /100WBC Smear Tech's Comments PT (9.9-13.0) SEC INR (0.9-1.1) VBG pH (7.32-7.43) VBG pCO2 mmHg VBG pO2 mmHg VBG HCO3 (22-26) mmol/L VBG O2 Saturation % VBG Base Excess mmol/L Sodium (135-145) mmol/L Potassium (3.3-5.1) mmol/L Chloride (96-108) mmol/L Carbon Dioxide (22-29) mmol/L Anion Gap (12-20) BUN (9-16) mg/dL Creatinine (0.5-1.4) mg/dL Estim Creat Clear Calc Estimated GFR POC Glucose (60-115) mg/dL Random Glucose (60-115) mg/dL Lactic Acid 3.8 H* (0.5-2.0) mmol/L Lactic Acid F/U @ 2Hr (0.5-2.0) mmol/L Calcium (8.4-10.2) mg/dL Magnesium (1.6-2.6) mg/dL Total Bilirubin (0.0-1.0) mg/dL Direct Bilirubin (0.0-0.5) mg/dL AST (5-31) U/L ALT (0-31) U/L Alkaline Phosphatase (39-117) U/L Ammonia (13-55) umol/L Total Creatine Kinase (26-140) U/L Troponin I High Sens 19.9 H D (<3.5-17.0) ng/L Total Protein (6.5-8.0) g/dL Albumin (3.5-5.0) g/dL Lipase (8-78) U/L Procalcitonin ng/mL TSH (0.32-4.0) uIU/mL Urine Color Urine Appearance Urine pH (5.0-8.0) Ur Specific [place] (1.005-1.025) Urine Protein (NEG-TRACE) MG/DL Urine Glucose (UA) (NEG) MG/DL Urine Ketones (NEG) MG/DL Urine Blood (NEG) Urine Nitrite (NEG) Ur Leukocyte Esterase (NEG) Urine RBC (0) /HPF Urine WBC (0-4) /HPF Ur Squamous Epith Cells /LPF Amorphous Sediment /LPF Urine Bacteria /LPF Urine Mucus /LPF Urine Opiates Screen (Not Detect) Urine Fentanyl Screen (Not Detect) Ur Barbiturates Screen (Not Detect) Ur Phencyclidine Scrn (Not Detect) Ur Amphetamines Screen (Not Detect) U Benzodiazepines Scrn (Not Detect) Urine Cocaine Screen (Not Detect) U Marijuana (THC) Screen (Not Detect) Ethyl Alcohol mg/dL COVID-19 (FLOR) Negative (Negative) COVID-19 Clin Com See Note 09/18/21 09/18/21 09/18/21 Range/Units 16:01 16:15 16:38 WBC (4.8-10.8) X10*3/uL RBC (4.20-5.50) X10*6/uL Hgb (12.0-16.0) g/dl Hct (37.0-47.0) % MCV (80.0-98.0) fL MCH (27.0-33.0) pg MCHC (31.0-35.0) g/dl RDW (11.0-16.0) % Plt Count (160-400) X10*3/uL MPV (9.4-12.3) fL Immature Gran % (Auto) (0.0-0.4) % Neut % (Auto) (45-73) % Lymph % (Auto) (20-40) % [place] % (Auto) (2-11) % Eos % (Auto) (0-4) % Baso % (Auto) (0-2) % Lymph # (Auto) (1.2-4.9) X10*3/uL [place] # (Auto) (0.1-1.2) X10*3/uL Eos # (Auto) (0.0-0.4) X10*3/uL Baso # (Auto) (0.0-0.2) X10*3/uL Abs Immat Gran (auto) (0.00-0.03) X10*3/uL Absolute Neuts (auto) (2.0-8.3) x10*3/uL Absolute Nucleated RBC (0.0-0.012) X10*3/uL Nucleated RBC % (auto) (0.0-0.2) /100WBC Smear Tech's Comments PT (9.9-13.0) SEC INR (0.9-1.1) VBG pH (7.32-7.43) VBG pCO2 mmHg VBG pO2 mmHg VBG HCO3 (22-26) mmol/L VBG O2 Saturation % VBG Base Excess mmol/L Sodium (135-145) mmol/L Potassium (3.3-5.1) mmol/L Chloride (96-108) mmol/L Carbon Dioxide (22-29) mmol/L Anion Gap (12-20) BUN (9-16) mg/dL Creatinine (0.5-1.4) mg/dL Estim Creat Clear Calc Estimated GFR POC Glucose 212 H (60-115) mg/dL Random Glucose (60-115) mg/dL Lactic Acid (0.5-2.0) mmol/L Lactic Acid F/U @ 2Hr (0.5-2.0) mmol/L Calcium (8.4-10.2) mg/dL Magnesium (1.6-2.6) mg/dL Total Bilirubin (0.0-1.0) mg/dL Direct Bilirubin (0.0-0.5) mg/dL AST (5-31) U/L ALT (0-31) U/L Alkaline Phosphatase (39-117) U/L Ammonia (13-55) umol/L Total Creatine Kinase (26-140) U/L Troponin I High Sens (<3.5-17.0) ng/L Total Protein (6.5-8.0) g/dL Albumin (3.5-5.0) g/dL Lipase (8-78) U/L Procalcitonin ng/mL TSH (0.32-4.0) uIU/mL Urine Color YELLOW Urine Appearance HAZY Urine pH 7.0 (5.0-8.0) Ur Specific [place] 1.020 (1.005-1.025) Urine Protein 2+ H (NEG-TRACE) MG/DL Urine Glucose (UA) NEG (NEG) MG/DL Urine Ketones NEG (NEG) MG/DL Urine Blood TRACE (NEG) Urine Nitrite NEG (NEG) Ur Leukocyte Esterase NEG (NEG) Urine RBC 1-4 (0) /HPF Urine WBC 0-2 (0-4) /HPF Ur Squamous Epith Cells 1+ /LPF Amorphous Sediment 1+ /LPF Urine Bacteria TRACE /LPF Urine Mucus TRACE /LPF Urine Opiates Screen (Not Detect) Urine Fentanyl Screen (Not Detect) Ur Barbiturates Screen (Not Detect) Ur Phencyclidine Scrn (Not Detect) Ur Amphetamines Screen (Not Detect) U Benzodiazepines Scrn (Not Detect) Urine Cocaine Screen (Not Detect) U Marijuana (THC) Screen (Not Detect) Ethyl Alcohol < 10 mg/dL COVID-19 (FLOR) (Negative) COVID-19 Clin Com 09/18/21 09/18/21 09/18/21 Range/Units 16:38 18:44 18:44 WBC (4.8-10.8) X10*3/uL RBC (4.20-5.50) X10*6/uL Hgb (12.0-16.0) g/dl Hct (37.0-47.0) % MCV (80.0-98.0) fL MCH (27.0-33.0) pg MCHC (31.0-35.0) g/dl RDW (11.0-16.0) % Plt Count (160-400) X10*3/uL MPV (9.4-12.3) fL Immature Gran % (Auto) (0.0-0.4) % Neut % (Auto) (45-73) % Lymph % (Auto) (20-40) % [place] % (Auto) (2-11) % Eos % (Auto) (0-4) % Baso % (Auto) (0-2) % Lymph # (Auto) (1.2-4.9) X10*3/uL [place] # (Auto) (0.1-1.2) X10*3/uL Eos # (Auto) (0.0-0.4) X10*3/uL Baso # (Auto) (0.0-0.2) X10*3/uL Abs Immat Gran (auto) (0.00-0.03) X10*3/uL Absolute Neuts (auto) (2.0-8.3) x10*3/uL Absolute Nucleated RBC (0.0-0.012) X10*3/uL Nucleated RBC % (auto) (0.0-0.2) /100WBC Smear Tech's Comments PT (9.9-13.0) SEC INR (0.9-1.1) VBG pH (7.32-7.43) VBG pCO2 mmHg VBG pO2 mmHg VBG HCO3 (22-26) mmol/L VBG O2 Saturation % VBG Base Excess mmol/L Sodium (135-145) mmol/L Potassium (3.3-5.1) mmol/L Chloride (96-108) mmol/L Carbon Dioxide (22-29) mmol/L Anion Gap (12-20) BUN (9-16) mg/dL Creatinine (0.5-1.4) mg/dL Estim Creat Clear Calc Estimated GFR POC Glucose (60-115) mg/dL Random Glucose (60-115) mg/dL Lactic Acid (0.5-2.0) mmol/L Lactic Acid F/U @ 2Hr (0.5-2.0) mmol/L Calcium (8.4-10.2) mg/dL Magnesium (1.6-2.6) mg/dL Total Bilirubin (0.0-1.0) mg/dL Direct Bilirubin (0.0-0.5) mg/dL AST (5-31) U/L ALT (0-31) U/L Alkaline Phosphatase (39-117) U/L Ammonia 18 (13-55) umol/L Total Creatine Kinase (26-140) U/L Troponin I High Sens (<3.5-17.0) ng/L Total Protein (6.5-8.0) g/dL Albumin (3.5-5.0) g/dL Lipase (8-78) U/L Procalcitonin 0.03 ng/mL TSH (0.32-4.0) uIU/mL Urine Color Urine Appearance Urine pH (5.0-8.0) Ur Specific [place] (1.005-1.025) Urine Protein (NEG-TRACE) MG/DL Urine Glucose (UA) (NEG) MG/DL Urine Ketones (NEG) MG/DL Urine Blood (NEG) Urine Nitrite (NEG) Ur Leukocyte Esterase (NEG) Urine RBC (0) /HPF Urine WBC (0-4) /HPF Ur Squamous Epith Cells /LPF Amorphous Sediment /LPF Urine Bacteria /LPF Urine Mucus /LPF Urine Opiates Screen Not Detected (Not Detect) Urine Fentanyl Screen POSITIVE H (Not Detect) Ur Barbiturates Screen Not Detected (Not Detect) Ur Phencyclidine Scrn Not Detected (Not Detect) Ur Amphetamines Screen Not Detected (Not Detect) U Benzodiazepines Scrn Not Detected (Not Detect) Urine Cocaine Screen Not Detected (Not Detect) U Marijuana (THC) Screen Not Detected (Not Detect) Ethyl Alcohol mg/dL COVID-19 (FLRO) (Negative) COVID-19 Clin Com 09/18/21 09/18/21 Range/Units 18:44 18:48 WBC (4.8-10.8) X10*3/uL RBC (4.20-5.50) X10*6/uL Hgb (12.0-16.0) g/dl Hct (37.0-47.0) % MCV (80.0-98.0) fL MCH (27.0-33.0) pg MCHC (31.0-35.0) g/dl RDW (11.0-16.0) % Plt Count (160-400) X10*3/uL MPV (9.4-12.3) fL Immature Gran % (Auto) (0.0-0.4) % Neut % (Auto) (45-73) % Lymph % (Auto) (20-40) % [place] % (Auto) (2-11) % Eos % (Auto) (0-4) % Baso % (Auto) (0-2) % Lymph # (Auto) (1.2-4.9) X10*3/uL [place] # (Auto) (0.1-1.2) X10*3/uL Eos # (Auto) (0.0-0.4) X10*3/uL Baso # (Auto) (0.0-0.2) X10*3/uL Abs Immat Gran (auto) (0.00-0.03) X10*3/uL Absolute Neuts (auto) (2.0-8.3) x10*3/uL Absolute Nucleated RBC (0.0-0.012) X10*3/uL Nucleated RBC % (auto) (0.0-0.2) /100WBC Smear Tech's Comments PT (9.9-13.0) SEC INR (0.9-1.1) VBG pH 7.34 (7.32-7.43) VBG pCO2 35 mmHg VBG pO2 73 mmHg VBG HCO3 19 L (22-26) mmol/L VBG O2 Saturation 91.0 % VBG Base Excess -5.3 mmol/L Sodium (135-145) mmol/L Potassium (3.3-5.1) mmol/L Chloride (96-108) mmol/L Carbon Dioxide (22-29) mmol/L Anion Gap (12-20) BUN (9-16) mg/dL Creatinine (0.5-1.4) mg/dL Estim Creat Clear Calc Estimated GFR POC Glucose (60-115) mg/dL Random Glucose (60-115) mg/dL Lactic Acid (0.5-2.0) mmol/L Lactic Acid F/U @ 2Hr 1.6 (0.5-2.0) mmol/L Calcium (8.4-10.2) mg/dL Magnesium (1.6-2.6) mg/dL Total Bilirubin (0.0-1.0) mg/dL Direct Bilirubin (0.0-0.5) mg/dL AST (5-31) U/L ALT (0-31) U/L Alkaline Phosphatase (39-117) U/L Ammonia (13-55) umol/L Total Creatine Kinase (26-140) U/L Troponin I High Sens (<3.5-17.0) ng/L Total Protein (6.5-8.0) g/dL Albumin (3.5-5.0) g/dL Lipase (8-78) U/L Procalcitonin ng/mL TSH (0.32-4.0) uIU/mL Urine Color Urine Appearance Urine pH (5.0-8.0) Ur Specific [place] (1.005-1.025) Urine Protein (NEG-TRACE) MG/DL Urine Glucose (UA) (NEG) MG/DL Urine Ketones (NEG) MG/DL Urine Blood (NEG) Urine Nitrite (NEG) Ur Leukocyte Esterase (NEG) Urine RBC (0) /HPF Urine WBC (0-4) /HPF Ur Squamous Epith Cells /LPF Amorphous Sediment /LPF Urine Bacteria /LPF Urine Mucus /LPF Urine Opiates Screen (Not Detect) Urine Fentanyl Screen (Not Detect) Ur Barbiturates Screen (Not Detect) Ur Phencyclidine Scrn (Not Detect) Ur Amphetamines Screen (Not Detect) U Benzodiazepines Scrn (Not Detect) Urine Cocaine Screen (Not Detect) U Marijuana (THC) Screen (Not Detect) Ethyl Alcohol mg/dL COVID-19 (FLOR) (Negative) COVID-19 Clin Com Procedures Central Line Placement Right Femoral: Time Out Performed: Yes Patient Placed on Monitor/Pulse Ox: Yes MD Prep: mask, gown and gloves Central Line Prep: Chlorhexidine scrub Local Anesthetic: lidocaine 1% Amount of anesthesia used (mL): 5 Ultrasound Used for Placement: No Central Line Lumen Inserted: triple Post Procedure: sutured in place, good blood return, all ports aspirated, flushed, capped and sterile dressing applied Patient Tolerated Procedure: well Critical Care Time Critical Care Time Critical Care Time: Yes Total Critical Care Time: 70 Attestation: I spent 70 minutes of critical care, with interventions, assessments, speaking to patient, consultants, and family. Discharge Plan Discharge Clinical Impression: Encephalopathy, Acute hypotension Patient Disposition: Still a Patient Prescriptions: No Action quetiapine 25 mg tablet 25 mg PO BEDTIME RF: 0 atorvastatin 80 mg tablet 1 tab PO DAILY RF: 0 donepezil 5 mg tablet 1 tab PO DAILY RF: 0 valsartan 80 mg tablet 1 tab PO QAM RF: 0 amlodipine 5 mg tablet 1 tab PO DAILY RF: 0 aspirin 81 mg tablet,delayed release (DR/EC) 1 tab PO QAM RF: 0 acetaminophen 500 mg tablet 2 tab PO DAILY PRN (Reason: Pain) RF: 0 meclizine 25 mg tablet 1 tab PO BID PRN (Reason: Dizziness) RF: 0 baclofen 10 mg tablet 1 tab PO TID RF: 0 pantoprazole 40 mg tablet,delayed release (DR/EC) 1 tab PO BID RF: 0 nitrofurantoin macrocrystal 100 mg capsule 1 cap PO BEDTIME RF: 0 hydrochlorothiazide 12.5 mg capsule 1 cap PO DAILY RF: 0 metoprolol succinate 25 mg tablet extended release 24 hr 1 tab PO DAILY RF: 0 ipratropium bromide 21 mcg (0.03 %) spray,non-aerosol 2 spray intranasal BID RF: 0 insulin lispro [Humalog KwikPen Insulin] 100 unit/mL insulin pen subcut TID PRN (Reason: Hyperglycemia) RF: 0 Lantus Solostar U-100 Insulin 100 unit/mL (3 mL) insulin pen 14 unit subcut BEDTIME RF: 0 Myrbetriq 25 mg tablet extended release 24 hr 1 tab PO DAILY RF: 0
[2021-09-18 18:54] LABS: VBG Base Excess -5.3 mmol/L; VBG HCO3 19 mmol/L (22-26); VBG pCO2 35 mmHg; VBG pH 7.34 (7.32-7.43); VBG pO2 73 mmHg
[2021-09-18 18:55] LABS: Venous Blood Gas Refer to POC result
[2021-09-18] MEDS: cefTRIAXone sodium 1 GM in 0.9 % Sodium Chloride 50 ML IV (18:55)
--- NOTE | 2021-09-18 18:55 | PC.NURSE ---
antibiotics hung late. blood cultures drawn late due to patient difficult stick and triple lumen was placed.
[2021-09-18 19:04] LABS: ~Lactic Acid-LAB USE ONLY 1.6 mmol/L (0.5-2.0)
[2021-09-18 19:06] LABS: Ammonia 18 umol/L (13-55)
[2021-09-18 19:23] LABS: Procalcitonin 0.03 ng/mL
[2021-09-18] MEDS: Atropine Sulfate 1 MG/ML VIAL 0.5 MG IVPUSH (21:04)
[2021-09-19] VITALS (10 sets, daily range): BP systolic 108–132; BP diastolic 43–85; PULSE 45–129; RESP 11–18; TEMP 37–37.5; O2SAT 86–99
--- NOTE | 2021-09-19 | ECG_ITS ---
Test Reason : sinus ulysses Blood Pressure : / mmHG Vent. Rate : 047 BPM Atrial Rate : 047 BPM P-R Int : 108 ms QRS Dur : 084 ms QT Int : 468 ms P-R-T Axes : 004 029 033 degrees QTc Int : 414 ms Sinus bradycardia with short [place] Otherwise normal ECG When compared with ECG of 18-SEP-2021 16:31, No significant changes seen Referred By: Franco Villa Electronically Signed By:Jose Otero
[2021-09-19] MEDS: 0.9 % Sodium Chloride 1,000 ML 999 ML IV (01:58)
[2021-09-19] MEDS: Atropine Sulfate 1 MG/10 ML SYRINGE IVPUSH (01:58)
--- NOTE | 2021-09-19 05:01 | PC.NURSE ---
I assumed care of this pt at 1900. Since that time the pt has been somnolent, arousable to painful stimuli (she grimaces in response to sternal rub). She has remained in a sinus ulysses with a rate mostly in the high 40's and low 50's. Her HR has increased after being administered Atropine (see EMAR for times and doses). She has remained on the BairHugger for most of the night and as of 0500 her repeat rectal temp is 99. Lea hugger removed and placed at bedside should we need to re-apply it. Byers continues to drain clear, yellow urine. Levophed continues to infuse at 0.09mcg/kg/min. Will continue to monitor.
[2021-09-19 07:31] LABS: Glucose, Whole Blood 207 mg/dL (60-115)
--- NOTE | 2021-09-19 09:38 | P.HPHOSP_ITS ---
History of Present Illness Date of Service: 09/19/21 Chief Complaint: altered mental status This is a 65 yo F with a PMH as outlined below who presents to [facility] for the second time in 2 days, initially on 09/17 and then on 09/18 with changes in mental status. The patient is currently altered and unable to provide a meaningful history, as such, history is obtained from the ED providers and the patients (and healthcare proxy), Verna Nichole @ [phone]. The patient who was in her usual state of health, presented to [facility] on 09/17 as a stroke alert. At that time, it was reported that she was more confused compared to her baseline self. Per the , he had noticed L-sided mouth drooping. She also reported a mild headache at that time. She was diagnosed with Turner's palsy and was discharged home with valacyclovir + prednisone. She returned to the ED 24 hours, now more lethargic. In the ED, a CT head/c-spine were negative for acute findings. She was noted to be hypotensive with HRs in the 40s. She had no fevers. Her UA was equivocal, but she did have leukocytosis. She was given IVF and IV antibiotics and remained hypotensive. She had a central line placed and was started on levophed with plans for ICU admission. However, due to the pandemic and lack of availbility, she was treated in the ED and now has been weaned of levophed. She will be admitted to the floor for further treatment. Review of Systems Review of Systems: unable to assess due to mental status [facility] Medical History Anxiety Asthma CHF (congestive heart failure) Cortical blindness Diabetes Diabetic acetonemia Dyspnea on exertion Essential hypertension HTN (hypertension) Myalgia and myositis Neuropathy Nocturnal hypoxemia Obesity (BMI 30-39.9) Orthopnea Restrictive lung disease Stroke due to stenosis of posterior cerebral artery Type 2 diabetes mellitus with unspecified complications UTI (urinary tract infection) Family History Father No problems noted. Mother Angina at rest Sister Lung cancer Colon cancer COPD (chronic obstructive pulmonary disease) Surgical History History of appendectomy History of arthroscopy of both knees History of hysterectomy History of pancreatic surgery Social History Household Members: Spouse Housing: Apartment Do you presently have visiting nurse or other home services: Yes (1X/wk) Unable to assess alcohol history related to: Refusing to respond Alcohol intake: unknown Patient Tobacco Use Status: Never used Tobacco e-Cigarette/Vaping Use: Never Used Second Hand Smoke Exposure: No Advance Directives: Yes Advance Directives on File: Yes Advance Directives Date on File: 07/27/20 service: No Current occupational status: unemployed and disabled Current occupation: right handed Sexual orientation: Straight/Heterosexual Meds Allergies Allergy/AdvReac Type Severity Reaction Status Date / Time Sulfa (Sulfonamide Allergy Severe DIFFICULTY Verified 02/28/21 15:39 Antibiotics) BREATHING [SULFA (SULFONAMIDE ANTIBIOTICS)] cephalexin [From KEFLEX] Allergy Intermediate RASH,HIVES Verified 02/28/21 15:39 amoxicillin [AMOXICILLIN] Allergy Unknown DENIES Verified 02/28/21 15:39 THIS ALLERGY 03/28/2018 penicillin V Allergy Unknown Unknown Verified 02/28/21 15:39 sumatriptan [From IMITREX] AdvReac Severe HEART Verified 02/28/21 15:39 PALPITATIONS topiramate [From TOPAMAX] AdvReac Severe AGITATION Verified 02/28/21 15:39 Active Medications: Current Medications Acetaminophen (Acetaminophen 325 Mg Tablet) 650 mg PO Q6H PRN PRN Reason: Pain, Mild (Pain Scale 1-3) Enoxaparin Sodium (Enoxaparin Sodium 40 Mg/0.4 Ml Syringe) 40 mg SUBCUT Q24H FRANCHESKA Norepinephrine Bitartrate (Levophed) 8 mg in 250 mls @ 0 mls/hr IVCONT .Q0M FRANCHESKA; Protocol Last Titration: 09/19/21 06:40 Dose: 0 mcg/kg/min, 0 mls/hr Documented by: Ceftriaxone Sodium 1 gm/ (Sodium Chloride) 50 mls @ 100 mls/hr IV Q24H FRANCHESKA Ondansetron HCl (Ondansetron Hcl 4 Mg/2 Ml Vial) 4 mg IVPUSH Q8H PRN PRN Reason: Nausea and Vomiting Pharmacy Consult (Consult Rx Perform Med Rec) 1 each MISCELLANE ONCE PRN PRN Reason: Consult order Sodium Chloride (0.9 % Sodium Chloride Flush 3 Ml Syringe) 3 ml [facility]FLUSH [facility] Home Medications Medication Instructions Recorded Confirmed Last Taken Type acetaminophen 500 mg tablet 2 tab PO DAILY PRN 08/06/21 08/06/21 Unknown History amlodipine 5 mg tablet 1 tab PO DAILY 08/06/21 08/06/21 Unknown History aspirin 81 mg tablet,delayed 1 tab PO QAM 08/06/21 08/06/21 Unknown History release atorvastatin 80 mg tablet 1 tab PO DAILY 08/06/21 08/06/21 Unknown History baclofen 10 mg tablet 1 tab PO TID 08/06/21 08/06/21 Unknown History donepezil 5 mg tablet 1 tab PO DAILY 08/06/21 08/06/21 Unknown History hydrochlorothiazide 12.5 mg capsule 1 cap PO DAILY 08/06/21 08/06/21 Unknown History insulin glargine 100 unit/mL (3 14 unit SUBCUT BEDTIME 08/06/21 08/06/21 Unknown History mL) subcutaneous pen (Lantus Solostar U-100 Insulin) insulin lispro 100 unit/mL SUBCUT TID PRN 08/06/21 Unknown History subcutaneous pen (Humalog KwikPen (U-100) Insulin) ipratropium bromide 21 mcg (0.03 2 spray INTRANASAL BID 08/06/21 08/06/21 Unknown History %) nasal spray meclizine 25 mg tablet 1 tab PO BID PRN 08/06/21 08/06/21 Unknown History metoprolol succinate 25 mg 1 tab PO DAILY 08/06/21 08/06/21 Unknown History tablet,extended release 24 hr mirabegron 25 mg tablet,extended 1 tab PO DAILY 08/06/21 08/06/21 Unknown History release 24 hr (Myrbetriq) nitrofurantoin macrocrystal 100 mg 1 cap PO BEDTIME 08/06/21 08/06/21 Unknown History capsule pantoprazole 40 mg tablet,delayed 1 tab PO BID 08/06/21 08/06/21 Unknown History release quetiapine 25 mg tablet 25 mg PO BEDTIME 08/06/21 08/06/21 Unknown History valsartan 80 mg tablet 1 tab PO QAM 08/06/21 08/06/21 Unknown History Physical Exam Vital Signs and Narrative: Vital Signs: Last Vital Signs Temp 98.9 F 09/19/21 07:23 Pulse 51 09/19/21 07:23 Resp 13 09/19/21 07:23 BP 126/46 L 09/19/21 07:23 Pulse Ox 99 09/19/21 07:23 BMI result Body Mass Index 30.1 Const: Other: Constitutional - Minimally responsive to painful stimuli; opens eyes spontaneously; does not appear in any distress Eyes - EOMI, PERRL Cardiovascular - S1S2; Rates in the 50s to 60s Respiratory - Diminished air entry bilaterally Gastrointestinal - NT / ND; +BS; No rebound or guarding - No CVA tenderness Extremities - no calf tenderness bilaterally, no swelling Musculoskeletal - Normal inspection, normal ROM Skin - Warm/Dry Neurological - Responds minimally to strong verbal and painful stimuli; squeezes hands bilaterally when prompted multiple times; Psychological - Appropriate affect Results Labs CBC and Chem 7: 09/18/21 16:01 09/18/21 16:01 Labs: Laboratory Results - last 24 hr 09/18/21 09/18/21 09/18/21 16:01 16:01 16:01 MCV 96.1 MCH 32.3 MCHC 33.6 RDW 13.7 Plt Count 261 MPV 9.8 Immature Gran % (Auto) 0.5 H Neut % (Auto) 72.0 Lymph % (Auto) 17.2 L [facility] % (Auto) 10.1 Eos % (Auto) 0.1 Baso % (Auto) 0.1 Lymph # (Auto) 2.6 [facility] # (Auto) 1.6 H Eos # (Auto) 0.0 Baso # (Auto) 0.0 Abs Immat Gran (auto) 0.08 H Absolute Neuts (auto) 11.1 H Absolute Nucleated RBC 0.000 Nucleated RBC % (auto) 0.0 Smear Tech's Comments VERIFIED PT 12.1 INR 1.1 VBG pH VBG pCO2 VBG pO2 VBG HCO3 VBG O2 Saturation VBG Base Excess Anion Gap 19 Estim Creat Clear Calc 38.9 Estimated GFR 42 POC Glucose Random Glucose 97 Lactic Acid Lactic Acid F/U @ 2Hr Calcium 10.1 Magnesium 2.0 Total Bilirubin 0.7 Direct Bilirubin 0.2 AST 30 D ALT 15 Alkaline Phosphatase 53 Ammonia Total Creatine Kinase 781 H D Troponin I High Sens Total Protein 7.3 Albumin 4.3 Lipase 33 Procalcitonin TSH 2.11 Urine Color Urine Appearance Urine pH Ur Specific [place] Urine Protein Urine Glucose (UA) Urine Ketones Urine Blood Urine Nitrite Ur Leukocyte Esterase Urine RBC Urine WBC Ur Squamous Epith Cells Amorphous Sediment Urine Bacteria Urine Mucus Urine Opiates Screen Urine Fentanyl Screen Ur Barbiturates Screen Ur Phencyclidine Scrn Ur Amphetamines Screen U Benzodiazepines Scrn Urine Cocaine Screen U Marijuana (THC) Screen Ethyl Alcohol COVID-19 (FLOR) COVID-19 Clin Com 09/18/21 09/18/21 09/18/21 16:01 16:01 16:01 MCV MCH MCHC RDW Plt Count MPV Immature Gran % (Auto) Neut % (Auto) Lymph % (Auto) [facility] % (Auto) Eos % (Auto) Baso % (Auto) Lymph # (Auto) [facility] # (Auto) Eos # (Auto) Baso # (Auto) Abs Immat Gran (auto) Absolute Neuts (auto) Absolute Nucleated RBC Nucleated RBC % (auto) Smear Tech's Comments PT INR VBG pH VBG pCO2 VBG pO2 VBG HCO3 VBG O2 Saturation VBG Base Excess Anion Gap Estim Creat Clear Calc Estimated GFR POC Glucose Random Glucose Lactic Acid 3.8 H* Lactic Acid F/U @ 2Hr Calcium Magnesium Total Bilirubin Direct Bilirubin AST ALT Alkaline Phosphatase Ammonia Total Creatine Kinase Troponin I High Sens 19.9 H D Total Protein Albumin Lipase Procalcitonin TSH Urine Color Urine Appearance Urine pH Ur Specific [place] Urine Protein Urine Glucose (UA) Urine Ketones Urine Blood Urine Nitrite Ur Leukocyte Esterase Urine RBC Urine WBC Ur Squamous Epith Cells Amorphous Sediment Urine Bacteria Urine Mucus Urine Opiates Screen Urine Fentanyl Screen Ur Barbiturates Screen Ur Phencyclidine Scrn Ur Amphetamines Screen U Benzodiazepines Scrn Urine Cocaine Screen U Marijuana (THC) Screen Ethyl Alcohol COVID-19 (FLOR) Negative COVID-19 Clin Com See Note 09/18/21 09/18/21 09/18/21 16:01 16:15 16:38 MCV MCH MCHC RDW Plt Count MPV Immature Gran % (Auto) Neut % (Auto) Lymph % (Auto) [facility] % (Auto) Eos % (Auto) Baso % (Auto) Lymph # (Auto) [facility] # (Auto) Eos # (Auto) Baso # (Auto) Abs Immat Gran (auto) Absolute Neuts (auto) Absolute Nucleated RBC Nucleated RBC % (auto) Smear Tech's Comments PT INR VBG pH VBG pCO2 VBG pO2 VBG HCO3 VBG O2 Saturation VBG Base Excess Anion Gap Estim Creat Clear Calc Estimated GFR POC Glucose 212 H Random Glucose Lactic Acid Lactic Acid F/U @ 2Hr Calcium Magnesium Total Bilirubin Direct Bilirubin AST ALT Alkaline Phosphatase Ammonia Total Creatine Kinase Troponin I High Sens Total Protein Albumin Lipase Procalcitonin TSH Urine Color YELLOW Urine Appearance HAZY Urine pH 7.0 Ur Specific [place] 1.020 Urine Protein 2+ H Urine Glucose (UA) NEG Urine Ketones NEG Urine Blood TRACE Urine Nitrite NEG Ur Leukocyte Esterase NEG Urine RBC 1-4 Urine WBC 0-2 Ur Squamous Epith Cells 1+ Amorphous Sediment 1+ Urine Bacteria TRACE Urine Mucus TRACE Urine Opiates Screen Urine Fentanyl Screen Ur Barbiturates Screen Ur Phencyclidine Scrn Ur Amphetamines Screen U Benzodiazepines Scrn Urine Cocaine Screen U Marijuana (THC) Screen Ethyl Alcohol < 10 COVID-19 (FLOR) COVID-19 [facility] 09/18/21 09/18/21 09/18/21 16:38 18:44 18:44 MCV MCH MCHC RDW Plt Count MPV Immature Gran % (Auto) Neut % (Auto) Lymph % (Auto) [facility] % (Auto) Eos % (Auto) Baso % (Auto) Lymph # (Auto) [facility] # (Auto) Eos # (Auto) Baso # (Auto) Abs Immat Gran (auto) Absolute Neuts (auto) Absolute Nucleated RBC Nucleated RBC % (auto) Smear Tech's Comments PT INR VBG pH VBG pCO2 VBG pO2 VBG HCO3 VBG O2 Saturation VBG Base Excess Anion Gap Estim Creat Clear Calc Estimated GFR POC Glucose Random Glucose Lactic Acid Lactic Acid F/U @ 2Hr Calcium Magnesium Total Bilirubin Direct Bilirubin AST ALT Alkaline Phosphatase Ammonia 18 Total Creatine Kinase Troponin I High Sens Total Protein Albumin Lipase Procalcitonin 0.03 TSH Urine Color Urine Appearance Urine pH Ur Specific [place] Urine Protein Urine Glucose (UA) Urine Ketones Urine Blood Urine Nitrite Ur Leukocyte Esterase Urine RBC Urine WBC Ur Squamous Epith Cells Amorphous Sediment Urine Bacteria Urine Mucus Urine Opiates Screen Not Detected Urine Fentanyl Screen POSITIVE H Ur Barbiturates Screen Not Detected Ur Phencyclidine Scrn Not Detected Ur Amphetamines Screen Not Detected U Benzodiazepines Scrn Not Detected Urine Cocaine Screen Not Detected U Marijuana (THC) Screen Not Detected Ethyl Alcohol COVID-19 (FLOR) COVID-19 [place] 0109/18/21 09/19/21 18:44 18:48 07:27 MCV MCH MCHC RDW Plt Count MPV Immature Gran % (Auto) Neut % (Auto) Lymph % (Auto) [facility] % (Auto) Eos % (Auto) Baso % (Auto) Lymph # (Auto) [facility] # (Auto) Eos # (Auto) Baso # (Auto) Abs Immat Gran (auto) Absolute Neuts (auto) Absolute Nucleated RBC Nucleated RBC % (auto) Smear Tech's Comments PT INR VBG pH 7.34 VBG pCO2 35 VBG pO2 73 VBG HCO3 19 L VBG O2 Saturation 91.0 VBG Base Excess -5.3 Anion Gap Estim Creat Clear Calc Estimated GFR POC Glucose 207 H Random Glucose Lactic Acid Lactic Acid F/U @ 2Hr 1.6 Calcium Magnesium Total Bilirubin Direct Bilirubin AST ALT Alkaline Phosphatase Ammonia Total Creatine Kinase Troponin I High Sens Total Protein Albumin Lipase Procalcitonin TSH Urine Color Urine Appearance Urine pH Ur Specific [place] Urine Protein Urine Glucose (UA) Urine Ketones Urine Blood Urine Nitrite Ur Leukocyte Esterase Urine RBC Urine WBC Ur Squamous Epith Cells Amorphous Sediment Urine Bacteria Urine Mucus Urine Opiates Screen Urine Fentanyl Screen Ur Barbiturates Screen Ur Phencyclidine Scrn Ur Amphetamines Screen U Benzodiazepines Scrn Urine Cocaine Screen U Marijuana (THC) Screen Ethyl Alcohol COVID-19 (FLOR) COVID-19 Clin Com Imaging Radiologist's Impressions: Impressions Cervical Spine CT 09/18/21 17:59 IMPRESSION: 1. No acute intracranial pathology. 2. No CT evidence of acute cervical spine fracture or traumatic subluxation Head CT 09/18/21 17:59 IMPRESSION: 1. No acute intracranial pathology. 2. No CT evidence of acute cervical spine fracture or traumatic subluxation Assessment and Plan (1) Shock: Status: Acute This is 65 yo F with a PMH prior episodes of encephalopathy, UTI, Dementia, HTN, DM, HLD who presents to the hospital with acute changes in mental status, of unclear etiology. She is admitted for further work up. 1. Shock, unspecificed To rule out septic / hypovoluemic S/P IVF and Levophed -- now normotensive off levophed > 4 hours Monitor BP 2. Acute Encephalopathy - likely toxic/metabolic appears to be slowly improving question if related to polypharmacy monitor neuro status check MRI and consult neurology 3. Leukocytosis of unclear etiology no defitive foci of infection cover empirically with Rocephin for now 4. History of CVA / intracranial vascular disease await neurology input on further imaging studies once able, continue her antiplatelet/statin 5. DM hold orals / insulin while NPO maintenance fluids with LRD5 POC QIDAC 6. Bradycardia monitor on tele trend trops repeat EKG check echo consider cardiology consult if any of the above concerning HCP -> Bettie; He reports that she would want to be a DNR/DNI DVT pptx, Lovenox Quality Stroke Does the patient have a stroke diagnosis?: No VTE Prior VTE?: No VTE Risk Level:: Medical - moderate - high VTE Device Contraindication: N/A - Device Ordered VTE Drug Contraindication: Treatment Not Indicated
--- NOTE | 2021-09-19 10:22 | PHA.MEDREC ---
Pharmacy Consult ? Medication Reconciliation Pharmacy has completed the medication reconciliation. Confirmed medicaiton with patients spouse Ant. He reports patient is on both Mrybertiq and oxybutynin. Chela Mattson, EmelyD
[2021-09-19] MEDS: Enoxaparin Sodium 40 MG/0.4 ML SYRINGE SUBCUT (10:23)
[2021-09-19] MEDS: Dextrose 5 % and Lactated Ring 1,000 ML 100 ML IVCONT (11:25)
--- NOTE | 2021-09-19 11:30 | PC.NURSE ---
pt remains somnolent.awakens easily to voiced. follows commands. awaiting mri
[2021-09-19 11:33] LABS: MANUAL DIFF FLAG NO
[2021-09-19 11:34] LABS: VBG Base Excess -4.1 mmol/L; VBG HCO3 19 mmol/L (22-26); VBG pCO2 31 mmHg; VBG pO2 56 mmHg
[2021-09-19 11:34] LABS: Venous Blood Gas Refer to POC result
[2021-09-19 11:38] LABS: Basophils Percent Auto 0.2 % (0-2); Eosinophils Percent Auto 0.1 % (0-4); Hematocrit 36.2 % (37.0-47.0); Hemoglobin 11.9 g/dl (12.0-16.0); Imm Gran Abs Auto 0.04 X10*3/uL (0.00-0.03); Imm Gran Pct Auto 0.4 % (0.0-0.4); Lymphocytes Absolute Auto 2.3 X10*3/uL (1.2-4.9); Lymphocytes Percent Auto 23.4 % (20-40); Mean Corpuscular HGB Conc 32.9 g/dl (31.0-35.0); Mean Corpuscular Hemoglobin 32.2 pg (27.0-33.0); Mean Corpuscular Volume 98.1 fL (80.0-98.0); Mean Platelet Volume 9.7 fL (9.4-12.3); Monocytes Absolute Auto 0.8 X10*3/uL (0.1-1.2); Monocytes Percent Auto 8.6 % (2-11); Neutrophils Absolute Auto 6.6 x10*3/uL (2.0-8.3); Neutrophils Percent Auto 67.3 % (45-73); Platelet Count 201 X10*3/uL (160-400); Red Blood Count 3.69 X10*6/uL (4.20-5.50); Red Cell Distribution Width 14.2 % (11.0-16.0); White Blood Count 9.8 X10*3/uL (4.8-10.8)
[2021-09-19 11:41] LABS: Ammonia 21 umol/L (13-55)
[2021-09-19 11:54] LABS: Troponin-I High Sensitivity 9.3 ng/L (<3.5-17.0)
[2021-09-19 11:59] LABS: Anion Gap 13 (12-20); Blood Urea Nitrogen 23 mg/dL (9-16); Calcium 9.2 mg/dL (8.4-10.2); Carbon Dioxide 23 mmol/L (22-29); Chloride 114 mmol/L (96-108); Creatinine Clr Calc Pharmacy 58.4; Estimated Glomerular Filt Rate > 60; Glucose Random 273 mg/dL (60-115); Potassium 3.9 mmol/L (3.3-5.1); Sodium 146 mmol/L (135-145)
[2021-09-19 12:19] LABS: TSH reflex Free T4 0.55 uIU/mL (0.32-4.0)
[2021-09-19] MEDS: LORazepam 2 MG/ML VIAL 0.5 MG IVPUSH ×3 (14:45→22:01)
[2021-09-19 15:25] LABS: Glucose, Whole Blood 293 mg/dL (60-115)
--- NOTE | 2021-09-19 16:00 | P.CONCA_ITS ---
History of Present Illness History of Present Illness Date of Service: 09/19/21 Requesting physician: Franco Villa Chief complaint: Confusion, bradycardia Narrative: 65-year-old female who has past medical history significant for cortical blindness, congestive heart failure, diabetes, hypertension, restrictive lung disease, stroke and UTIs. She presented with change in mental status. She was noted to be bradycardic in the 40s and hypotensive. She was given IV fluids and pressors and improved after that. We were asked to comment about the bradycardia. Patient was somnolent at the time of interview and heart rate was 45-46 beats per minute. On stimulation she woke up quite agitated and her heart rate went up to 90 to 100s. She is on IV antibiotics right now for sepsis. [facility] Past Medical History Medical History Anxiety Asthma CHF (congestive heart failure) Cortical blindness Diabetes Diabetic acetonemia Dyspnea on exertion Essential hypertension HTN (hypertension) Myalgia and myositis Neuropathy Nocturnal hypoxemia Obesity (BMI 30-39.9) Orthopnea Restrictive lung disease Stroke due to stenosis of posterior cerebral artery Type 2 diabetes mellitus with unspecified complications UTI (urinary tract infection) Family History Family History Father No problems noted. Mother Angina at rest Sister Lung cancer Colon cancer COPD (chronic obstructive pulmonary disease) Surgical History Surgical History History of appendectomy History of arthroscopy of both knees History of hysterectomy History of pancreatic surgery Social History Social History Household Members: Spouse Housing: Apartment Do you presently have visiting nurse or other home services: Yes (1X/wk) Unable to assess alcohol history related to: Refusing to respond Alcohol intake: unknown Patient Tobacco Use Status: Never used Tobacco e-Cigarette/Vaping Use: Never Used Second Hand Smoke Exposure: No Advance Directives: Yes Advance Directives on File: Yes Advance Directives Date on File: 07/27/20 service: No Current occupational status: unemployed and disabled Current occupation: right handed Sexual orientation: Straight/Heterosexual Meds Allergies Allergy/AdvReac Type Severity Reaction Status Date / Time Sulfa (Sulfonamide Allergy Severe DIFFICULTY Verified 02/28/21 15:39 Antibiotics) BREATHING [SULFA (SULFONAMIDE ANTIBIOTICS)] cephalexin [From KEFLEX] Allergy Intermediate RASH,HIVES Verified 02/28/21 15:39 amoxicillin [AMOXICILLIN] Allergy Unknown DENIES Verified 02/28/21 15:39 THIS ALLERGY 03/28/2018 penicillin V Allergy Unknown Unknown Verified 02/28/21 15:39 sumatriptan [From IMITREX] AdvReac Severe HEART Verified 02/28/21 15:39 PALPITATIONS topiramate [From TOPAMAX] AdvReac Severe AGITATION Verified 02/28/21 15:39 Active Medications: Current Medications Acetaminophen (Acetaminophen 325 Mg Tablet) 650 mg PO Q6H PRN PRN Reason: Pain, Mild (Pain Scale 1-3) Enoxaparin Sodium (Enoxaparin Sodium 40 Mg/0.4 Ml Syringe) 40 mg SUBCUT Q24H [facility] Last Admin: 09/19/21 10:23 Dose: 40 mg Documented by: Ceftriaxone Sodium 1 gm/ (Sodium Chloride) 50 mls @ 100 mls/hr IV Q24H [facility] Dextrose/Lactated Ringer's (D5lr) 1,000 mls @ 100 mls/hr IVCONT .Q10H [facility] Last Admin: 09/19/21 11:25 Dose: 100 mls/hr Documented by: Ondansetron HCl (Ondansetron Hcl 4 Mg/2 Ml Vial) 4 mg IVPUSH Q8H PRN PRN Reason: Nausea and Vomiting Pharmacy Consult (Consult Rx Perform Med Rec) 1 each MISCELLANE ONCE PRN PRN Reason: Consult order Sodium Chloride (0.9 % Sodium Chloride Flush 3 Ml Syringe) 3 ml IVFLUSH QSHIFT [facility] Home Medications Medication Instructions Recorded Confirmed Last Taken Type acetaminophen 500 mg tablet 2 tab PO DAILY PRN 08/06/21 09/19/21 Unknown History amlodipine 5 mg tablet 1 tab PO DAILY 08/06/21 09/19/21 Unknown History aspirin 81 mg tablet,delayed 1 tab PO QAM 08/06/21 09/19/21 Unknown History release atorvastatin 80 mg tablet 1 tab PO DAILY 08/06/21 09/19/21 Unknown History baclofen 10 mg tablet 1 tab PO TID PRN 08/06/21 09/19/21 Unknown History donepezil 5 mg tablet 1 tab PO DAILY 08/06/21 09/19/21 Unknown History hydrochlorothiazide 12.5 mg capsule 1 cap PO DAILY 08/06/21 09/19/21 Unknown History insulin glargine 100 unit/mL (3 40 unit SUBCUT BEDTIME 08/06/21 09/19/21 Unknown History mL) subcutaneous pen (Lantus Solostar U-100 Insulin) insulin lispro 100 unit/mL 0 sliding scale dose SUBCUT TIDAC 08/06/21 09/19/21 Unknown History subcutaneous pen (Humalog KwikPen (U-100) Insulin) ipratropium bromide 21 mcg (0.03 2 spray INTRANASAL BID 08/06/21 09/19/21 Unknown History %) nasal spray meclizine 25 mg tablet 1 tab PO BID PRN 08/06/21 09/19/21 Unknown History metoprolol succinate 25 mg 1 tab PO DAILY 08/06/21 09/19/21 Unknown History tablet,extended release 24 hr mirabegron 25 mg tablet,extended 1 tab PO DAILY 08/06/21 09/19/21 Unknown Histor y release 24 hr (Myrbetriq) pantoprazole 40 mg tablet,delayed 1 tab PO BEDTIME 08/06/21 09/19/21 Unknown History release quetiapine 25 mg tablet 25 mg PO BEDTIME 08/06/21 09/19/21 Unknown History valsartan 80 mg tablet 1 tab PO QAM 08/06/21 09/19/21 Unknown History benzonatate 100 mg capsule 1 cap PO TID PRN 09/19/21 09/19/21 Unknown History bromfenac 0.07 % eye drops 1 drp OPHTHALMIC (EYE) BEDTIME PRN 09/19/21 09/19/21 Unknown History (Prolensa) dicyclomine 20 mg tablet 1 tab PO TID PRN 09/19/21 09/19/21 Unknown History multivitamin 1 tab PO QAM 09/19/21 09/19/21 Unknown History oxybutynin chloride 15 mg 1 tab PO DAILY 09/19/21 09/19/21 Unknown History tablet,extended release 24 hr polyethylene glycol 3350 17 17 g PO DAILY PRN 09/19/21 09/19/21 Unknown History gram/dose oral powder (ClearLax) Physical Exam Vital Signs: Vital Signs: Last Vital Signs Temp 98.9 F 09/19/21 07:23 Pulse 50 09/19/21 11:31 Resp 11 L 09/19/21 11:31 BP 130/82 09/19/21 11:31 Pulse Ox 99 09/19/21 10:23 BMI result Body Mass Index 30.1 GENERAL APPEARANCE: Quite sleepy but arousable. Agitated. NECK: no carotid bruit, no jugular venous distention. SKIN: no suspicious lesions, warm and dry. HEART: no murmurs, regular rate and rhythm. LUNGS: clear to auscultation bilaterally. ABDOMEN: soft, nontender. Objective Labs and Meds Result diagrams: 09/19/21 11:24 09/19/21 11:24 Lab results: Laboratory Results - last 24 hr 09/18/21 09/18/21 09/18/21 16:01 16:01 16:01 WBC 15.4 H RBC 4.09 L Hgb 13.2 Hct 39.3 MCV 96.1 MCH 32.3 MCHC 33.6 RDW 13.7 Plt Count 261 MPV 9.8 Immature Gran % (Auto) 0.5 H Neut % (Auto) 72.0 Lymph % (Auto) 17.2 L [place] % (Auto) 10.1 Eos % (Auto) 0.1 Baso % (Auto) 0.1 Lymph # (Auto) 2.6 [place] # (Auto) 1.6 H Eos # (Auto) 0.0 Baso # (Auto) 0.0 Abs Immat Gran (auto) 0.08 H Absolute Neuts (auto) 11.1 H Absolute Nucleated RBC 0.000 Nucleated RBC % (auto) 0.0 Smear Tech's Comments VERIFIED PT 12.1 INR 1.1 VBG pH VBG pCO2 VBG pO2 VBG HCO3 VBG O2 Saturation VBG Base Excess Sodium 143 Potassium 3.5 D Chloride 106 Carbon Dioxide 22 Anion Gap 19 BUN 27 H Creatinine 1.29 Estim Creat Clear Calc 38.9 Estimated GFR 42 POC Glucose Random Glucose 97 Lactic Acid Lactic Acid F/U @ 2Hr Calcium 10.1 Magnesium 2.0 Total Bilirubin 0.7 Direct Bilirubin 0.2 AST 30 D ALT 15 Alkaline Phosphatase 53 Ammonia Total Creatine Kinase 781 H D Troponin I High Sens Total Protein 7.3 Albumin 4.3 Lipase 33 Procalcitonin TSH 2.11 Urine Color Urine Appearance Urine pH Ur Specific [place] Urine Protein Urine Glucose (UA) Urine Ketones Urine Blood Urine Nitrite Ur Leukocyte Esterase Urine RBC Urine WBC Ur Squamous Epith Cells Amorphous Sediment Urine Bacteria Urine Mucus Urine Opiates Screen Urine Fentanyl Screen Ur Barbiturates Screen Ur Phencyclidine Scrn Ur Amphetamines Screen U Benzodiazepines Scrn Urine Cocaine Screen U Marijuana (THC) Screen Ethyl Alcohol COVID-19 (FLOR) COVID-19 Clin Com 09/18/21 09/18/21 09/18/21 16:01 16:01 16:01 WBC RBC Hgb Hct MCV MCH MCHC RDW Plt Count MPV Immature Gran % (Auto) Neut % (Auto) Lymph % (Auto) [place] % (Auto) Eos % (Auto) Baso % (Auto) Lymph # (Auto) [place] # (Auto) Eos # (Auto) Baso # (Auto) Abs Immat Gran (auto) Absolute Neuts (auto) Absolute Nucleated RBC Nucleated RBC % (auto) Smear Tech's Comments PT INR VBG pH VBG pCO2 VBG pO2 VBG HCO3 VBG O2 Saturation VBG Base Excess Sodium Potassium Chloride Carbon Dioxide Anion Gap BUN Creatinine Estim Creat Clear Calc Estimated GFR POC Glucose Random Glucose Lactic Acid 3.8 H* Lactic Acid F/U @ 2Hr Calcium Magnesium Total Bilirubin Direct Bilirubin AST ALT Alkaline Phosphatase Ammonia Total Creatine Kinase Troponin I High Sens 19.9 H D Total Protein Albumin Lipase Procalcitonin TSH Urine Color Urine Appearance Urine pH Ur Specific [place] Urine Protein Urine Glucose (UA) Urine Ketones Urine Blood Urine Nitrite Ur Leukocyte Esterase Urine RBC Urine WBC Ur Squamous Epith Cells Amorphous Sediment Urine Bacteria Urine Mucus Urine Opiates Screen Urine Fentanyl Screen Ur Barbiturates Screen Ur Phencyclidine Scrn Ur Amphetamines Screen U Benzodiazepines Scrn Urine Cocaine Screen U Marijuana (THC) Screen Ethyl Alcohol COVID-19 (FLOR) Negative COVID-19 Clin Com See Note 09/18/21 09/18/21 09/18/21 16:01 16:15 16:38 WBC RBC Hgb Hct MCV MCH MCHC RDW Plt Count MPV Immature Gran % (Auto) Neut % (Auto) Lymph % (Auto) [place] % (Auto) Eos % (Auto) Baso % (Auto) Lymph # (Auto) [place] # (Auto) Eos # (Auto) Baso # (Auto) Abs Immat Gran (auto) Absolute Neuts (auto) Absolute Nucleated RBC Nucleated RBC % (auto) Smear Tech's Comments PT INR VBG pH VBG pCO2 VBG pO2 VBG HCO3 VBG O2 Saturation VBG Base Excess Sodium Potassium Chloride Carbon Dioxide Anion Gap BUN Creatinine Estim Creat Clear Calc Estimated GFR POC Glucose 212 H Random Glucose Lactic Acid Lactic Acid F/U @ 2Hr Calcium Magnesium Total Bilirubin Direct Bilirubin AST ALT Alkaline Phosphatase Ammonia Total Creatine Kinase Troponin I High Sens Total Protein Albumin Lipase Procalcitonin TSH Urine Color YELLOW Urine Appearance HAZY Urine pH 7.0 Ur Specific [place] 1.020 Urine Protein 2+ H Urine Glucose (UA) NEG Urine Ketones NEG Urine Blood TRACE Urine Nitrite NEG Ur Leukocyte Esterase NEG Urine RBC 1-4 Urine WBC 0-2 Ur Squamous Epith Cells 1+ Amorphous Sediment 1+ Urine Bacteria TRACE Urine Mucus TRACE Urine Opiates Screen Urine Fentanyl Screen Ur Barbiturates Screen Ur Phencyclidine Scrn Ur Amphetamines Screen U Benzodiazepines Scrn Urine Cocaine Screen U Marijuana (THC) Screen Ethyl Alcohol < 10 COVID-19 (FLOR) COVID-19 Qzzr Com 09/18/21 09/18/21 09/18/21 16:38 18:44 18:44 WBC RBC Hgb Hct MCV MCH MCHC RDW Plt Count MPV Immature Gran % (Auto) Neut % (Auto) Lymph % (Auto) [place] % (Auto) Eos % (Auto) Baso % (Auto) Lymph # (Auto) [place] # (Auto) Eos # (Auto) Baso # (Auto) Abs Immat Gran (auto) Absolute Neuts (auto) Absolute Nucleated RBC Nucleated RBC % (auto) Smear Tech's Comments PT INR VBG pH VBG pCO2 VBG pO2 VBG HCO3 VBG O2 Saturation VBG Base Excess Sodium Potassium Chloride Carbon Dioxide Anion Gap BUN Creatinine Estim Creat Clear Calc Estimated GFR POC Glucose Random Glucose Lactic Acid Lactic Acid F/U @ 2Hr Calcium Magnesium Total Bilirubin Direct Bilirubin AST ALT Alkaline Phosphatase Ammonia 18 Total Creatine Kinase Troponin I High Sens Total Protein Albumin Lipase Procalcitonin 0.03 TSH Urine Color Urine Appearance Urine pH Ur Specific [place] Urine Protein Urine Glucose (UA) Urine Ketones Urine Blood Urine Nitrite Ur Leukocyte Esterase Urine RBC Urine WBC Ur Squamous Epith Cells Amorphous Sediment Urine Bacteria Urine Mucus Urine Opiates Screen Not Detected Urine Fentanyl Screen POSITIVE H Ur Barbiturates Screen Not Detected Ur Phencyclidine Scrn Not Detected Ur Amphetamines Screen Not Detected U Benzodiazepines Scrn Not Detected Urine Cocaine Screen Not Detected U Marijuana (THC) Screen Not Detected Ethyl Alcohol COVID-19 (FLOR) COVID-19 Clin Com 09/18/21 09/18/21 09/19/21 18:44 18:48 07:27 WBC RBC Hgb Hct MCV MCH MCHC RDW Plt Count MPV Immature Gran % (Auto) Neut % (Auto) Lymph % (Auto) [place] % (Auto) Eos % (Auto) Baso % (Auto) Lymph # (Auto) [place] # (Auto) Eos # (Auto) Baso # (Auto) Abs Immat Gran (auto) Absolute Neuts (auto) Absolute Nucleated RBC Nucleated RBC % (auto) Smear Tech's Comments PT INR VBG pH 7.34 VBG pCO2 35 VBG pO2 73 VBG HCO3 19 L VBG O2 Saturation 91.0 VBG Base Excess -5.3 Sodium Potassium Chloride Carbon Dioxide Anion Gap BUN Creatinine Estim Creat Clear Calc Estimated GFR POC Glucose 207 H Random Glucose Lactic Acid Lactic Acid F/U @ 2Hr 1.6 Calcium Magnesium Total Bilirubin Direct Bilirubin AST ALT Alkaline Phosphatase Ammonia Total Creatine Kinase Troponin I High Sens Total Protein Albumin Lipase Procalcitonin TSH Urine Color Urine Appearance Urine pH Ur Specific [place] Urine Protein Urine Glucose (UA) Urine Ketones Urine Blood Urine Nitrite Ur Leukocyte Esterase Urine RBC Urine WBC Ur Squamous Epith Cells Amorphous Sediment Urine Bacteria Urine Mucus Urine Opiates Screen Urine Fentanyl Screen Ur Barbiturates Screen Ur Phencyclidine Scrn Ur Amphetamines Screen U Benzodiazepines Scrn Urine Cocaine Screen U Marijuana (THC) Screen Ethyl Alcohol COVID-19 (FLOR) COVID-19 Clin Com 09/19/21 09/19/21 09/19/21 11:24 11:24 11:24 WBC 9.8 RBC 3.69 L Hgb 11.9 L Hct 36.2 L MCV 98.1 H MCH 32.2 MCHC 32.9 RDW 14.2 Plt Count 201 MPV 9.7 Immature Gran % (Auto) 0.4 Neut % (Auto) 67.3 Lymph % (Auto) 23.4 [place] % (Auto) 8.6 Eos % (Auto) 0.1 Baso % (Auto) 0.2 Lymph # (Auto) 2.3 [place] # (Auto) 0.8 Eos # (Auto) 0.0 Baso # (Auto) 0.0 Abs Immat Gran (auto) 0.04 H Absolute Neuts (auto) 6.6 Absolute Nucleated RBC 0.000 Nucleated RBC % (auto) 0.0 Smear Tech's Comments PT INR VBG pH VBG pCO2 VBG pO2 VBG HCO3 VBG O2 Saturation VBG Base Excess Sodium 146 H Potassium 3.9 Chloride 114 H Carbon Dioxide 23 Anion Gap 13 BUN 23 H Creatinine 0.86 Estim Creat Clear Calc 58.4 Estimated GFR > 60 POC Glucose Random Glucose 273 H Lactic Acid Lactic Acid F/U @ 2Hr Calcium 9.2 D Magnesium Total Bilirubin Direct Bilirubin AST ALT Alkaline Phosphatase Ammonia 21 Total Creatine Kinase Troponin I High Sens Total Protein Albumin Lipase Procalcitonin TSH 0.55 Urine Color Urine Appearance Urine pH Ur Specific [place] Urine Protein Urine Glucose (UA) Urine Ketones Urine Blood Urine Nitrite Ur Leukocyte Esterase Urine RBC Urine WBC Ur Squamous Epith Cells Amorphous Sediment Urine Bacteria Urine Mucus Urine Opiates Screen Urine Fentanyl Screen Ur Barbiturates Screen Ur Phencyclidine Scrn Ur Amphetamines Screen U Benzodiazepines Scrn Urine Cocaine Screen U Marijuana (THC) Screen Ethyl Alcohol COVID-19 (FLOR) COVID-19 Clin Com 09/19/21 09/19/21 09/19/21 11:24 11:29 15:20 WBC RBC Hgb Hct MCV MCH MCHC RDW Plt Count MPV Immature Gran % (Auto) Neut % (Auto) Lymph % (Auto) [place] % (Auto) Eos % (Auto) Baso % (Auto) Lymph # (Auto) [place] # (Auto) Eos # (Auto) Baso # (Auto) Abs Immat Gran (auto) Absolute Neuts (auto) Absolute Nucleated RBC Nucleated RBC % (auto) Smear Tech's Comments PT INR VBG pH 7.40 VBG pCO2 31 VBG pO2 56 VBG HCO3 19 L VBG O2 Saturation 86.0 VBG Base Excess -4.1 Sodium Potassium Chloride Carbon Dioxide Anion Gap BUN Creatinine Estim Creat Clear Calc Estimated GFR POC Glucose 293 H Random Glucose Lactic Acid Lactic Acid F/U @ 2Hr Calcium Magnesium Total Bilirubin Direct Bilirubin AST ALT Alkaline Phosphatase Ammonia Total Creatine Kinase Troponin I High Sens 9.3 D Total Protein Albumin Lipase Procalcitonin TSH Urine Color Urine Appearance Urine pH Ur Specific [place] Urine Protein Urine Glucose (UA) Urine Ketones Urine Blood Urine Nitrite Ur Leukocyte Esterase Urine RBC Urine WBC Ur Squamous Epith Cells Amorphous Sediment Urine Bacteria Urine Mucus Urine Opiates Screen Urine Fentanyl Screen Ur Barbiturates Screen Ur Phencyclidine Scrn Ur Amphetamines Screen U Benzodiazepines Scrn Urine Cocaine Screen U Marijuana (THC) Screen Ethyl Alcohol COVID-19 (FLOR) COVID-19 Clin Com Imaging Radiologist's impression: Impressions Cervical Spine CT 09/18/21 17:59 IMPRESSION: 1. No acute intracranial pathology. 2. No CT evidence of acute cervical spine fracture or traumatic subluxation Head CT 09/18/21 17:59 IMPRESSION: 1. No acute intracranial pathology. 2. No CT evidence of acute cervical spine fracture or traumatic subluxation Chest X-Ray 09/19/21 09:09 IMPRESSION: Hypoexpanded lungs without acute process seen. KUB X-Ray 09/19/21 10:37 IMPRESSION: Electrodes right abdomen of indeterminate significance. Needs correlation with surgical report to assess for compatibility with MRI. Assessment and Plan (1) Encephalopathy: Status: Acute (2) Acute hypotension: Status: Acute (3) Bradycardia: Status: Acute 65-year-old female presented with change in mental status, bradycardia and hypertension. Overall condition has stabilized after resuscitation, transient pressors and antibiotics. She is quite somnolent and when sleeping her heart rate is slow. When she is awake heart rate are rising up to 90s to 100s. I do not see a clear indication for pacemaker right now. I think an episode should be held because it is a cause for bradycardia heart block and may not make a big difference in her clinical situation. Hopefully as infection improves her mental status will improve also. Thank you for allowing me to participate in the care of your patient. Please feel free to contact me if you have any questions. Procedures Date of Service Date of Service: 09/19/21
--- NOTE | 2021-09-19 16:42 | PC.NURSE ---
Nicki writhing in bed gave iv ativan x 1. ativan also given by off going nurse. Dr fernandez notified. Patient has moments of calm then starts writing in bed again. Will continue to monitor.
[2021-09-19] MEDS: Haloperidol Lactate 5 MG/ML VIAL 2 MG IM (18:25)
[2021-09-19] MEDS: cefTRIAXone sodium 1 GM in 0.9 % Sodium Chloride 50 ML IV (20:58)
[2021-09-19] MEDS: OLANZapine 10 MG VIAL 2.5 MG IM (20:59)
[2021-09-19 22:24] LABS: Glucose, Whole Blood 177 mg/dL (60-115)
[2021-09-20] MEDS: 0.9 % Sodium Chloride Flush 3 ML SYRINGE IVFLUSH ×3 (00:46→15:09)
--- NOTE | 2021-09-20 00:53 | PC.NURSE ---
1730- Patient arrived to unit via stretcher. 2-3 assist to help patient to bed safely. Patient confused, unable to verbalize needs. Patient rocking side to side in bed, occasionally bringing legs over side rails. Patient tangling self up in IV line, chavarria. Avasy camera in place. Dr. Villa made aware of patients current state. Haldol IM ordered, to help patient participate in care. Given per EMAR. 1934- Patient continues to be restless, moaning. IV stopped d/t patient becoming entangled. Patient continuously removing O2, case monitor, gown. Unable to obtain patient vitals at this time. Dr. Gamboa made aware. Zyprexa ordered. Medication was given late due to not being in pyxis and pharmacy having to bring up. Zyprexa given at 2058 per EMAR. 2138- Patient continues to be restless, rolling side to side. Dr. Gamboa updated. Ativan ordered and given per EMAR. 225- Patient has no change after Ativan. Vitals obtained. Dr. Gamboa updated, no new orders. 1:1 sitter placed in room.
[2021-09-20] MEDS: LORazepam 2 MG/ML VIAL 0.5 MG IVPUSH (00:54)
[2021-09-20 04:00] VITALS: BP 138/72; PULSE 110; RESP 17; TEMP 36.6; O2SAT 95
[2021-09-20 06:01] LABS: Hematocrit 35.6 % (37.0-47.0); Mean Corpuscular HGB Conc 33.7 g/dl (31.0-35.0); Mean Corpuscular Hemoglobin 32.3 pg (27.0-33.0); Mean Corpuscular Volume 95.7 fL (80.0-98.0); Mean Platelet Volume 9.7 fL (9.4-12.3); Platelet Count 205 X10*3/uL (160-400); Red Blood Count 3.72 X10*6/uL (4.20-5.50); Red Cell Distribution Width 13.5 % (11.0-16.0); White Blood Count 14.3 X10*3/uL (4.8-10.8)
[2021-09-20 06:09] LABS: Anion Gap 16 (12-20); Blood Urea Nitrogen 16 mg/dL (9-16); Calcium 9.2 mg/dL (8.4-10.2); Carbon Dioxide 21 mmol/L (22-29); Chloride 112 mmol/L (96-108); Creatinine Clr Calc Pharmacy 71.7; Estimated Glomerular Filt Rate > 60; Glucose Random 147 mg/dL (60-115); Potassium 3.3 mmol/L (3.3-5.1); Sodium 146 mmol/L (135-145)
--- NOTE | 2021-09-20 07:13 | PC.NURSE ---
PATIENT WITH A SITTER AT HER BEDSIDE FOR SAFETY. SHE ARRIVED VERY RESTLESS ON EVENING SHIFT AND HAS CONTINUED OVER NIGHT TO BE RESTLESS, ROLLING SIDE TO SIDE CONTINUOUS, FIDGETY, UNDRESS, TAKING OFF O2 TUBING, PULLING IV. PATIENT NON VERBAL WHEN ASKED MULTIPLE QUESTIONS, MULTIPLE TIMES/ SHE DOESN'T OPEN HER EYES, OR FOLLOW DIRECTIONS. HOSPITALIST ON DUTY UPDATED, HE DID ENTER HER ROOM AND PT TEMPORARY QUIET AND TOLD THIS KITCHEN CHEF TO MONITOR HER. NURSING UTILITY SYSTEM REPAIRER UPDATED AND CAME TO UNIT ALSO TIMES 2, VSS, PT STILL NOT TALKING BUT REMAINED, RESTLESS, TURNING SIDE TO SIDE, AND FIDGETY, AGAIN BETWEEN UTILITY SYSTEM REPAIRER AND MD, CONTINUE TO MONITOR. MEDICATED TIMES ONE WITH IVP ATIVAN AT 005E WITH NO EFFECT, CLARK CATH DID DRAIN 1400ML OF MARTIN URINE. MONNITORED CLOSELY BY THIS KITCHEN CHEF AND BEDSIDE SITTER
[2021-09-20 07:44] LABS: Glucose, Whole Blood 156 mg/dL (60-115)
[2021-09-20 07:52] VITALS: BP 168/82; PULSE 98; RESP 18; TEMP 36.7; O2SAT 100
--- NOTE | 2021-09-20 08:45 | MHC.CM.PN ---
Patient is documented to be confused; CM spoke with /HCP/Ant @ [phone]. Patient lives in a house/duplex with her and she is functionally independent, requiring no DME. Patient receives a monthly RN visit through [facility] and home resume said services is the goal for dc.CM has initiated and will follow for dc planning.IMM addressed with and original will be mailed certified letter to him and a copy has been placed on the chart. PCP is Dr. Chris Rodriguez.
[2021-09-20] MEDS: Nystatin Powder 15 GM BOTTLE 1 APPL TOPICAL ×2 (09:38→21:19)
--- NOTE | 2021-09-20 09:57 | MHC.CM.PN ---
EYAD SEAMAN CALLED THE UNIT ON 09/20/21 AT 1700. PATIENT WAS NOT YET ON THE FLLOR AND THIS RECTANGULAR TANK COOPER ASKED FOR HER TO CALL BACK TOMORROW (TODAY 09/20/21) URSZULA CALLED BACK AND WAS INFORMED THAT THE COVERING RESEARCH AND DEVELOPMENT TECHNICIAN HAD ALREADY SPOKEN TO THE SPOUSE/HCP AND PERHAPS URSZULA CAN REACH OUT TO HIM URSZULA STATES THAT SHE IS CONCERNED ABOUT FENTANYL IN PATIENT'S URINE. THIS RECTANGULAR TANK COOPER TOLD HER THAT CONCERNS WOULD BE ADDRESSED WITH HOSPITALIST, BUT THAT SHE WILL NEED TO DISCUSS WITH HCP ONCE HE HAS BEEN UPDATED ON PATIENT PROGRESS.
--- NOTE | 2021-09-20 10:03 | HO.PM.IMPN ---
Subjective Subjective Date of Service: 09/20/21 <Jacque Anne NP - Last Filed: 09/20/21 14:26> 09/20/21 <Franco Villa MD - Last Filed: 09/20/21 14:41> Review of Systems Follow up encephalopathy Slowly improving unable to give accurate history <Jacque Anne NP - Last Filed: 09/20/21 14:26> Physical Exam Vital Signs: Vital Signs: Last Vital Signs Temp 98.0 F 09/20/21 07:52 Pulse 98 09/20/21 07:52 Resp 18 09/20/21 07:52 BP 168/82 H 09/20/21 07:52 Pulse Ox 100 09/20/21 07:52 BMI result Body Mass Index 30.1 <Jacque Anne NP - Last Filed: 09/20/21 14:26> Appearing in no acute distress lung sounds are clear to auscultation heart regular rate rhythm, clear S1, S2 positive bowel sounds, abdomen is soft, nontender neuro patient is alert, confused, no focal deficits, agitation, rolling in bed <Jacque Anne NP - Last Filed: 09/20/21 14:26> Objective Data Active Medications Acetaminophen (Acetaminophen 325 Mg Tablet) 650 mg PO Q6H PRN PRN Reason: Pain, Mild (Pain Scale 1-3) Enoxaparin Sodium (Enoxaparin Sodium 40 Mg/0.4 Ml Syringe) 40 mg SUBCUT Q24H [facility] Last Admin: 09/19/21 10:23 Dose: 40 mg Documented by: NAHID Ceftriaxone Sodium 1 gm/ (Sodium Chloride) 50 mls @ 100 mls/hr IV Q24H [facility] Last Infusion: 09/19/21 23:43 Dose: 0 mls/hr Documented by: RASHAD Dextrose/Lactated Ringer's (D5lr) 1,000 mls @ 100 mls/hr IVCONT .Q10H [facility] Last Admin: 09/20/21 06:36 Dose: Not Given Documented by: NICOL Non-Admin Reason: IV Running Lorazepam (Lorazepam 2 Mg/Ml Vial) 0.5 mg IVPUSH Q6H PRN PRN Reason: anxiety/restlessness Last Admin: 09/20/21 00:54 Dose: 0.5 mg Documented by: NICOL Nystatin (Nystatin Powder 15 Gm Bottle) 1 appl TOPICAL BID [facility]; Protocol Last Admin: 09/20/21 09:38 Dose: 1 appl Documented by: LOUISE Ondansetron HCl (Ondansetron Hcl 4 Mg/2 Ml Vial) 4 mg IVPUSH Q8H PRN PRN Reason: Nausea and Vomiting Pharmacy Consult (Consult Rx Perform Med Rec) 1 each MISCELLANE ONCE PRN PRN Reason: Consult order Sodium Chloride (0.9 % Sodium Chloride Flush 3 Ml Syringe) 3 ml IVFLUSH QSHIFT [facility] Last Admin: 09/20/21 07:40 Dose: 3 ml Documented by: MITESH <Jacque Anne NP - Last Filed: 09/20/21 14:26> Labs CBC & Chem 7: : 09/20/21 05:28 09/20/21 05:28 <Jacque Anne NP - Last Filed: 09/20/21 14:26> Labs: Laboratory Results - last 24 hr 09/19/21 09/19/21 09/19/21 11:24 11:24 11:24 MCV 98.1 H MCH 32.2 MCHC 32.9 RDW 14.2 Plt Count 201 MPV 9.7 Immature Gran % (Auto) 0.4 Neut % (Auto) 67.3 Lymph % (Auto) 23.4 [place] % (Auto) 8.6 Eos % (Auto) 0.1 Baso % (Auto) 0.2 Lymph # (Auto) 2.3 [place] # (Auto) 0.8 Eos # (Auto) 0.0 Baso # (Auto) 0.0 Abs Immat Gran (auto) 0.04 H Absolute Neuts (auto) 6.6 Absolute Nucleated RBC 0.000 Nucleated RBC % (auto) 0.0 VBG pH VBG pCO2 VBG pO2 VBG HCO3 VBG O2 Saturation VBG Base Excess Anion Gap 13 Estim Creat Clear Calc 58.4 Estimated GFR > 60 POC Glucose Random Glucose 273 H Calcium 9.2 D Ammonia 21 Troponin I High Sens TSH 0.55 09/19/21 09/19/21 09/19/21 11:24 11:29 15:20 MCV MCH MCHC RDW Plt Count MPV Immature Gran % (Auto) Neut % (Auto) Lymph % (Auto) [place] % (Auto) Eos % (Auto) Baso % (Auto) Lymph # (Auto) [place] # (Auto) Eos # (Auto) Baso # (Auto) Abs Immat Gran (auto) Absolute Neuts (auto) Absolute Nucleated RBC Nucleated RBC % (auto) VBG pH 7.40 VBG pCO2 31 VBG pO2 56 VBG HCO3 19 L VBG O2 Saturation 86.0 VBG Base Excess -4.1 Anion Gap Estim Creat Clear Calc Estimated GFR POC Glucose 293 H Random Glucose Calcium Ammonia Troponin I High Sens 9.3 D TSH 09/19/21 09/20/21 09/20/21 22:07 05:28 05:28 MCV 95.7 MCH 32.3 MCHC 33.7 RDW 13.5 Plt Count 205 MPV 9.7 Immature Gran % (Auto) Neut % (Auto) Lymph % (Auto) [place] % (Auto) Eos % (Auto) Baso % (Auto) Lymph # (Auto) [place] # (Auto) Eos # (Auto) Baso # (Auto) Abs Immat Gran (auto) Absolute Neuts (auto) Absolute Nucleated RBC 0.000 Nucleated RBC % (auto) 0.0 VBG pH VBG pCO2 VBG pO2 VBG HCO3 VBG O2 Saturation VBG Base Excess Anion Gap 16 Estim Creat Clear Calc 71.7 Estimated GFR > 60 POC Glucose 177 H Random Glucose 147 H Calcium 9.2 Ammonia Troponin I High Sens TSH 09/20/21 07:24 MCV MCH MCHC RDW Plt Count MPV Immature Gran % (Auto) Neut % (Auto) Lymph % (Auto) [place] % (Auto) Eos % (Auto) Baso % (Auto) Lymph # (Auto) [place] # (Auto) Eos # (Auto) Baso # (Auto) Abs Immat Gran (auto) Absolute Neuts (auto) Absolute Nucleated RBC Nucleated RBC % (auto) VBG pH VBG pCO2 VBG pO2 VBG HCO3 VBG O2 Saturation VBG Base Excess Anion Gap Estim Creat Clear Calc Estimated GFR POC Glucose 156 H Random Glucose Calcium Ammonia Troponin I High Sens TSH <Jacque Anne NP - Last Filed: 09/20/21 14:26> Microbiology Microbiology Results: Microbiology 09/18/21 18:44 Blood Culture - Preliminary Blood - Venous No growth after 24 hours. 09/18/21 18:44 Blood Culture - Preliminary Blood - Venous No growth after 24 hours. <Jacque Anne NP - Last Filed: 09/20/21 14:26> Assessment and Plan (1) Hypernatremia: Status: Acute <Jacque Anne NP - Last Filed: 09/20/21 14:26> Assessment and Plan: This is 65 yo F with a PMH prior episodes of encephalopathy, UTI, Dementia, HTN, DM, HLD who presents to the hospital with acute changes in mental status, of unclear etiology. She is admitted for further work up. Hypernatremia, mild Likely from NPO status add D5W Follow BMP Shock, unspecificed, septic shock and severe sepsis ruled out rule out septic / hypovolemic S/P IVF and Levophed -- now normotensive off levophed > 4 hours Monitor BP Acute Encephalopathy - likely toxic/metabolic appears to be slowly improving question if related to polypharmacy monitor neuro status Unable to complete MRI due to agitation consult neurology Leukocytosis of unclear etiology no definitive foci of infection cover empirically with Rocephin for now History of CVA / intracranial vascular disease await neurology input on further imaging studies once able, continue her antiplatelet/statin DM hold orals / insulin while NPO POC QIDAC Bradycardia monitor on tele trend trops repeat EKG check echo consider cardiology consult if any of the above concerning HCP -> Bettie; He reports that she would want to be a DNR/DNI DVT pptx, [place] Attending Dr. Villa <Jacque Anne NP - Last Filed: 09/20/21 14:26> Quality Stroke Does the patient have a stroke diagnosis?: No <Jacque Anne NP - Last Filed: 09/20/21 14:26> VTE Prior VTE?: No <Jacque Anne NP - Last Filed: 09/20/21 14:26> VTE Risk Level:: Medical - moderate - high <Jacque Anne NP - Last Filed: 09/20/21 14:26> VTE Device Contraindication: N/A - Device Ordered <Jacque Anne NP - Last Filed: 09/20/21 14:26> VTE Drug Contraindication: Treatment Not Indicated <Jacque Anne NP - Last Filed: 09/20/21 14:26>
[2021-09-20] MEDS: Enoxaparin Sodium 40 MG/0.4 ML SYRINGE SUBCUT (10:27)
[2021-09-20 11:36] LABS: Glucose, Whole Blood 183 mg/dL (60-115)
[2021-09-20 11:48] VITALS: BP 132/73; PULSE 88; RESP 18; TEMP 36; O2SAT 97
[2021-09-20] MEDS: Dextrose 5 % 1,000 ML 100 ML IVCONT (15:09)
[2021-09-20 15:19] VITALS: BP 145/67; PULSE 68; RESP 18; TEMP 37.1; O2SAT 93
[2021-09-20 16:07] LABS: Glucose, Whole Blood 203 mg/dL (60-115)
[2021-09-20] MEDS: cefTRIAXone sodium 1 GM in 0.9 % Sodium Chloride 50 ML IV (18:32)
[2021-09-20 19:15] VITALS: BP 153/68; PULSE 94; RESP 18; TEMP 36.4; O2SAT 98
[2021-09-20 20:29] LABS: Glucose, Whole Blood 238 mg/dL (60-115)
[2021-09-21] VITALS (8 sets, daily range): BP systolic 134–171; BP diastolic 67–86; PULSE 88–105; RESP 16–18; TEMP 36–36.8; O2SAT 93–99
[2021-09-21 04:59] LABS: Hemoglobin 12.7 g/dl (12.0-16.0); Mean Corpuscular HGB Conc 34.3 g/dl (31.0-35.0); Mean Corpuscular Hemoglobin 32.3 pg (27.0-33.0); Mean Corpuscular Volume 94.1 fL (80.0-98.0); Mean Platelet Volume 9.7 fL (9.4-12.3); Platelet Count 199 X10*3/uL (160-400); Red Blood Count 3.93 X10*6/uL (4.20-5.50); Red Cell Distribution Width 13.3 % (11.0-16.0); White Blood Count 10.1 X10*3/uL (4.8-10.8)
[2021-09-21 05:26] LABS: Anion Gap 16 (12-20); Blood Urea Nitrogen 11 mg/dL (9-16); Calcium 8.9 mg/dL (8.4-10.2); Carbon Dioxide 23 mmol/L (22-29); Chloride 105 mmol/L (96-108); Creatinine Clr Calc Pharmacy 76.2; Estimated Glomerular Filt Rate > 60; Glucose Random 267 mg/dL (60-115); Potassium 2.9 mmol/L (3.3-5.1); Sodium 141 mmol/L (135-145)
[2021-09-21 07:25] LABS: Glucose, Whole Blood 266 mg/dL (60-115)
--- NOTE | 2021-09-21 07:53 | P.PNIM_ITS ---
Subjective Subjective Date of Service: 09/21/21 Review of Systems Follow up encephalopathy Slowly improving unable to give accurate history Physical Exam Vital Signs: Vital Signs: Last Vital Signs Temp 97.0 F 09/21/21 07:44 Pulse 99 09/21/21 07:44 Resp 18 09/21/21 07:44 BP 171/77 H 09/21/21 07:44 Pulse Ox 96 09/21/21 07:44 BMI result Body Mass Index 30.1 Objective Data Active Medications Acetaminophen (Acetaminophen 325 Mg Tablet) 650 mg PO Q6H PRN PRN Reason: Pain, Mild (Pain Scale 1-3) Enoxaparin Sodium (Enoxaparin Sodium 40 Mg/0.4 Ml Syringe) 40 mg SUBCUT Q24H [facility] Last Admin: 09/20/21 10:27 Dose: 40 mg Documented by: MITESH Ceftriaxone Sodium 1 gm/ (Sodium Chloride) 50 mls @ 100 mls/hr IV Q24H [facility] Last Infusion: 09/20/21 19:15 Dose: 0 mls/hr Documented by: DULCE Lorazepam (Lorazepam 2 Mg/Ml Vial) 0.5 mg IVPUSH Q6H PRN PRN Reason: anxiety/restlessness Last Admin: 09/20/21 00:54 Dose: 0.5 mg Documented by: NICOL Nystatin (Nystatin Powder 15 Gm Bottle) 1 appl TOPICAL BID [facility]; Protocol Last Admin: 09/20/21 21:19 Dose: 1 appl Documented by: DULCE Ondansetron HCl (Ondansetron Hcl 4 Mg/2 Ml Vial) 4 mg IVPUSH Q8H PRN PRN Reason: Nausea and Vomiting Pharmacy Consult (Consult Rx Perform Med Rec) 1 each MISCELLANE ONCE PRN PRN Reason: Consult order Potassium Chloride (Potassium Chloride Er 20 Meq Tab.Er.Prt) 60 meq PO ONCE ONE Stop: 09/21/21 07:53 Potassium Chloride (Potassium Chloride Packet 20 Meq Packet) 20 meq PO DAILY [facility] Sodium Chloride (0.9 % Sodium Chloride Flush 3 Ml Syringe) 3 ml IVFLUSH QSHIFT [facility] Last Admin: 09/21/21 01:27 Dose: Not Given Documented by: DULCE Non-Admin Reason: IV Running Labs CBC & Chem 7: 09/21/21 04:05 09/21/21 04:05 Labs: Laboratory Results - last 24 hr 09/20/21 09/20/21 09/20/21 11:17 15:23 19:18 MCV MCH MCHC RDW Plt Count MPV Absolute Nucleated RBC Nucleated RBC % (auto) Anion Gap Estim Creat Clear Calc Estimated GFR POC Glucose 183 H 203 H 238 H Random Glucose Calcium 09/21/21 09/21/21 09/21/21 04:05 04:05 06:59 MCV 94.1 MCH 32.3 MCHC 34.3 RDW 13.3 Plt Count 199 MPV 9.7 Absolute Nucleated RBC 0.000 Nucleated RBC % (auto) 0.0 Anion Gap 16 Estim Creat Clear Calc 76.2 Estimated GFR > 60 POC Glucose 266 H Random Glucose 267 H Calcium 8.9 Microbiology Microbiology Results: Microbiology 09/18/21 18:44 Blood Culture - Preliminary Blood - Venous No growth after 48 hours. 09/18/21 18:44 Blood Culture - Preliminary Blood - Venous No growth after 48 hours. Assessment and Plan (1) Hypernatremia: Status: Acute Assessment and Plan: This is 65 yo F with a PMH prior episodes of encephalopathy, UTI, Dementia, HTN, DM, HLD who presents to the hospital with acute changes in mental status, of unclear etiology. She is admitted for further work up. Hypernatremia, mild Likely from NPO status add D5W Follow BMP Shock, unspecificed, septic shock and severe sepsis ruled out rule out septic / hypovolemic S/P IVF and Levophed -- now normotensive off levophed > 4 hours Monitor BP Acute Encephalopathy - likely toxic/metabolic appears to be slowly improving question if related to polypharmacy monitor neuro status Unable to complete MRI due to agitation consult neurology Leukocytosis of unclear etiology no definitive foci of infection cover empirically with Rocephin for now History of CVA / intracranial vascular disease await neurology input on further imaging studies once able, continue her antiplatelet/statin DM hold orals / insulin while NPO POC QIDAC Bradycardia monitor on tele trend trops repeat EKG check echo consider cardiology consult if any of the above concerning HCP -> Bettie; He reports that she would want to be a DNR/DNI DVT pptx, [place] Attending Dr. Villa Quality Stroke Does the patient have a stroke diagnosis?: No VTE Prior VTE?: No VTE Risk Level:: Medical - moderate - high VTE Device Contraindication: N/A - Device Ordered VTE Drug Contraindication: Treatment Not Indicated
--- NOTE | 2021-09-21 08:51 | PM.NEUROCN ---
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 In emergency room she was noted to be bradycardic and hypotensive with suspicion of UTI. With treatment she was feeling better. There was no sign of any seizure. She denied any headache when I saw her. There was no new focal weakness. Review of Systems Review of Systems: At this time no pain or headache or change in her vision. 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 Mother Angina at rest Sister Lung cancer Colon cancer COPD (chronic obstructive pulmonary disease) Surgical History Surgical History History of appendectomy History of arthroscopy of both knees History of hysterectomy History of pancreatic surgery Social History Social History Household Members: Spouse Housing: Unknown / Unable to assess Unable to assess alcohol history related to: Unable to respond Alcohol intake: unknown Patient Tobacco Use Status: Never used Tobacco e-Cigarette/Vaping Use: Never Used Second Hand Smoke Exposure: No Advance Directives Date on File: 07/27/20 service: No Current occupational status: disabled Current occupation: right handed Sexual orientation: Straight/Heterosexual Meds Allergies Allergy/AdvReac Type Severity Reaction Status Date / Time Sulfa (Sulfonamide Allergy Severe DIFFICULTY Verified 02/28/21 15:39 Antibiotics) BREATHING [SULFA (SULFONAMIDE ANTIBIOTICS)] cephalexin [From KEFLEX] Allergy Intermediate RASH,HIVES Verified 02/28/21 15:39 amoxicillin [AMOXICILLIN] Allergy Unknown DENIES Verified 02/28/21 15:39 THIS ALLERGY 03/28/2018 penicillin V Allergy Unknown Unknown Verified 02/28/21 15:39 sumatriptan [From IMITREX] AdvReac Severe HEART Verified 02/28/21 15:39 PALPITATIONS topiramate [From TOPAMAX] AdvReac Severe AGITATION Verified 02/28/21 15:39 Active Medications: Current Medications Acetaminophen (Acetaminophen 325 Mg Tablet) 650 mg PO Q6H PRN PRN Reason: Pain, Mild (Pain Scale 1-3) Enoxaparin Sodium (Enoxaparin Sodium 40 Mg/0.4 Ml Syringe) 40 mg SUBCUT Q24H [facility] Last Admin: 09/20/21 10:27 Dose: 40 mg Documented by: Ceftriaxone Sodium 1 gm/ (Sodium Chloride) 50 mls @ 100 mls/hr IV Q24H [facility] Last Infusion: 09/20/21 19:15 Dose: Infused Documented by: Lorazepam (Lorazepam 2 Mg/Ml Vial) 0.5 mg IVPUSH Q6H PRN PRN Reason: anxiety/restlessness Last Admin: 09/20/21 00:54 Dose: 0.5 mg Documented by: Nystatin (Nystatin Powder 15 Gm Bottle) 1 appl TOPICAL BID [facility]; Protocol Last Admin: 09/20/21 21:19 Dose: 1 appl Documented by: Ondansetron HCl (Ondansetron Hcl 4 Mg/2 Ml Vial) 4 mg IVPUSH Q8H PRN PRN Reason: Nausea and Vomiting Pharmacy Consult (Consult Rx Perform Med Rec) 1 each MISCELLANE ONCE PRN PRN Reason: Consult order Potassium Chloride (Potassium Chloride Packet 20 Meq Packet) 20 meq PO DAILY [facility] Sodium Chloride (0.9 % Sodium Chloride Flush 3 Ml Syringe) 3 ml IVFLUSH QSHIFT [facility] Last Admin: 09/21/21 01:27 Dose: Not Given Documented by: Home Medications Medication Instructions Recorded Confirmed Last Taken Type acetaminophen 500 mg tablet 2 tab PO DAILY PRN 08/06/21 09/19/21 Unknown History amlodipine 5 mg tablet 1 tab PO DAILY 08/06/21 09/19/21 Unknown History aspirin 81 mg tablet,delayed 1 tab PO QAM 08/06/21 09/19/21 Unknown History release atorvastatin 80 mg tablet 1 tab PO DAILY 08/06/21 09/19/21 Unknown History baclofen 10 mg tablet 1 tab PO TID PRN 08/06/21 09/19/21 Unknown History donepezil 5 mg tablet 1 tab PO DAILY 08/06/21 09/19/21 Unknown History hydrochlorothiazide 12.5 mg capsule 1 cap PO DAILY 08/06/21 09/19/21 Unknown History insulin glargine 100 unit/mL (3 40 unit SUBCUT BEDTIME 08/06/21 09/19/21 Unknown History mL) subcutaneous pen (Lantus Solostar U-100 Insulin) insulin lispro 100 unit/mL 0 sliding scale dose SUBCUT TIDAC 08/06/21 09/19/21 Unknown History subcutaneous pen (Humalog KwikPen (U-100) Insulin) ipratropium bromide 21 mcg (0.03 2 spray INTRANASAL BID 08/06/21 09/19/21 Unknown History %) nasal spray meclizine 25 mg tablet 1 tab PO BID PRN 08/06/21 09/19/21 Unknown History metoprolol succinate 25 mg 1 tab PO DAILY 08/06/21 09/19/21 Unknown History tablet,extended release 24 hr mirabegron 25 mg tablet,extended 1 tab PO DAILY 08/06/21 09/19/21 Unknown History release 24 hr (Myrbetriq) pantoprazole 40 mg tablet,delayed 1 tab PO BEDTIME 08/06/21 09/19/21 Unknown History release quetiapine 25 mg tablet 25 mg PO BEDTIME 08/06/21 09/19/21 Unknown History valsartan 80 mg tablet 1 tab PO QAM 08/06/21 09/19/21 Unknown History benzonatate 100 mg capsule 1 cap PO TID PRN 09/19/21 09/19/21 Unknown History bromfenac 0.07 % eye drops 1 drp OPHTHALMIC (EYE) BEDTIME PRN 09/19/21 09/19/21 Unknown History (Prolensa) dicyclomine 20 mg tablet 1 tab PO TID PRN 09/19/21 09/19/21 Unknown History multivitamin 1 tab PO QAM 09/19/21 09/19/21 Unknown History oxybutynin chloride 15 mg 1 tab PO DAILY 09/19/21 09/19/21 Unknown History tablet,extended release 24 hr polyethylene glycol 3350 17 17 g PO DAILY PRN 09/19/21 09/19/21 Unknown History gram/dose oral powder (ClearLax) Physical Exam Vital Signs: Vital Signs: Last Vital Signs Temp 97.0 F 09/21/21 07:44 Pulse 99 09/21/21 07:44 Resp 18 09/21/21 07:44 BP 171/77 H 09/21/21 07:44 Pulse Ox 96 09/21/21 07:44 BMI result Body Mass Index 30.1 Neuro: Other: She is alert and awake with normal spontaneity of speech fluency comprehension and somewhat flat affect. She did not remember my name though we have been seeing each other for number of years. He was able to name and repeat. Pupils were 3-4 mm round reactive to light. She was able to count fingers in different visual tavarez. Face was symmetrical. There was mild left sided weakness. Right plantar was extensor left was flexor. Results Labs CBC & Chem 7: 09/21/21 04:05 09/21/21 04:05 Labs: Short CBC 09/21/21 Range/Units 04:05 WBC 10.1 (4.8-10.8) X10*3/uL Hgb 12.7 (12.0-16.0) g/dl Hct 37.0 (37.0-47.0) % Plt Count 199 (160-400) X10*3/uL BMP 09/21/21 04:05 Sodium 141 Potassium 2.9 L Chloride 105 Carbon Dioxide 23 BUN 11 Creatinine 0.66 Calcium 8.[address] revealed chronic left occipital infarct. Microbiology Microbiology Results: Microbiology 09/18/21 18:44 Blood - Venous Blood Culture - Preliminary No growth after 48 hours. 09/18/21 18:44 Blood - Venous Blood Culture - Preliminary No growth after 48 hours. Assessment and Plan (1) Encephalopathy: Status: Acute 65 years old woman with severe widespread intracranial atherosclerotic disease resulting in multiple infarcts in the past including bilateral posterior cerebral artery infarcts. At this time she presented with encephalopathy likely related to infection. There was no obvious indication of a new vascular lesion. My recommendation is to treat her infection electrolyte abnormalities and blood pressure and continue underlying anti-platelet agent and statin for stroke prophylaxis Procedures Date of Service Date of Service: 09/21/21
--- NOTE | 2021-09-21 10:42 | MHC.CLN ---
Addendum entered by Binta Alonzo RD 09/21/21 13:46: SEEN BY INDUSTRIAL [employer]GANIZATION MANAGER TODAY WITH DIET RECOMMENDATION NDD2 WITH THIN LIQUIDS. DIET=DIABETIC, [address], NDD2. Original Note: NUTRITION CONSULT FOR SKIN/REDNESS. REDNESS TO ABDOMINAL FOLD AND BUTTOCK. NO OPEN AREAS. CURRENT DIET IS NPO. FOLLOW FOR DIET ADVANCEMENT..
[2021-09-21] MEDS: Enoxaparin Sodium 40 MG/0.4 ML SYRINGE SUBCUT (10:46)
[2021-09-21] MEDS: Potassium Chloride ER 20 MEQ TAB.ER.PRT 60 MEQ PO (10:46)
[2021-09-21] MEDS: Nystatin Powder 15 GM BOTTLE 1 APPL TOPICAL (10:46)
[2021-09-21 11:38] LABS: Glucose, Whole Blood 263 mg/dL (60-115)
--- NOTE | 2021-09-21 11:39 | PC.NURSE ---
Zeeshan grey D/C at 11:15 AM
--- NOTE | 2021-09-21 12:41 | MHC.CM.PN ---
Patient is not yet medically cleared for dc.PT is recommending home with services and a referral has been made to [facility].CM will follow.
--- NOTE | 2021-09-21 13:15 | MHC.SL.SWA ---
Speech Pathologist Impression: Risk of Aspiration Oralpharyngeal Dysphagia Risk of Aspiration Due to: Neurological Condition Dysphasia Diet Status: Downgrade Liquid Consistency and Strategies for Safe Swallow: Liquid Intake Recommendation: Thin Liquid Intake Strategies: Small Sips Solid Food Consistency: Dietary Recommendations: Grnd/Mech Altered (NDD2) Additional Modifications to Solid Foods: Patient demonstrates mild oral phase dysphagia, secondary to edentulous state, characterized by prolonged mastication/mashing and presence of oral residue. Patient is recommended GROUND/MECH ALTERED (NDD2) solids and THIN liquids, with pills WHOLE or CRUSHED in PUREE per tolerance/preference. Recommend assistance with tray set up and supervision during meals to ensure aspiration precautions. MANAGER ADVANCED to f/u 1x time. Oral Medication Intake: Whole with Puree Compensatory Strategies and Precautions to be Taken for Safe Swallow: Sitting Upright (90 deg) Small Bites and Sips Alternate Liquids/Solids Rate of Ingestion Change Oral Check Supervision While Eating and Drinking for Safe Swallow: Total Supervision (1:1) Foods to Avoid: Moisten solids with sauces and gravies for ease of mastication. Swallowing Recommended Treatments: Compens. Strategy Educat. Recommendation for Speech: Inpatient Speech Therapy Comment: 1 f/u Alkylation Operator Clinican/Clinical Fellow: No Supervisory Statement: I have reviewed and agree with the student/clinical fellow's documentation: N/A Speech Language Pathologist: Felisa Dodson M.A., CCC-MANAGER ADVANCED
[2021-09-21] MEDS: 0.9 % Sodium Chloride Flush 3 ML SYRINGE IVFLUSH (15:39)
[2021-09-21 16:14] LABS: Glucose, Whole Blood 343 mg/dL (60-115)
[2021-09-21] MEDS: Donepezil HCl 5 MG TABLET PO (17:08)
[2021-09-21] MEDS: Metoprolol Succinate ER 25 MG TAB.ER.24H PO (17:08)
[2021-09-21] MEDS: Insulin Lispro 100 UNIT/ML 3 ML VIAL SUBCUT ×2 (17:09→20:57)
[2021-09-21] MEDS: Atorvastatin Calcium 80 MG TABLET PO (17:09)
[2021-09-21] MEDS: cefTRIAXone sodium 1 GM in 0.9 % Sodium Chloride 50 ML IV (18:35)
[2021-09-21 20:31] LABS: Glucose, Whole Blood 323 mg/dL (60-115)
[2021-09-21] MEDS: Omeprazole 20 MG CAPSULE.DR PO (20:57)
[2021-09-21] MEDS: Insulin Glargine,Hum.rec.anlog 100 UNIT/ML 10 ML VIAL 20 UNIT SUBCUT (20:58)
[2021-09-22 04:00] VITALS: BP 185/79; PULSE 105; RESP 18; TEMP 36.4; O2SAT 98
[2021-09-22 06:05] LABS: Anion Gap 16 (12-20); Blood Urea Nitrogen 16 mg/dL (9-16); Calcium 9.1 mg/dL (8.4-10.2); Carbon Dioxide 22 mmol/L (22-29); Chloride 107 mmol/L (96-108); Creatinine Clr Calc Pharmacy 70.7; Estimated Glomerular Filt Rate > 60; Glucose Random 305 mg/dL (60-115); Potassium 3.3 mmol/L (3.3-5.1); Sodium 142 mmol/L (135-145)
[2021-09-22 07:13] VITALS: BP 182/89; PULSE 96; RESP 18; TEMP 36.4; O2SAT 96
[2021-09-22 07:52] LABS: Glucose, Whole Blood 314 mg/dL (60-115)
[2021-09-22] MEDS: Insulin Lispro 100 UNIT/ML 3 ML VIAL SUBCUT ×2 (09:00→12:28)
[2021-09-22] MEDS: Potassium Chloride Packet 20 MEQ PACKET PO (09:00)
[2021-09-22] MEDS: Aspirin Enteric Coated 81 MG TABLET.DR PO (09:01)
[2021-09-22] MEDS: amLODIPine Besylate 5 MG TABLET PO (09:01)
[2021-09-22] MEDS: Atorvastatin Calcium 80 MG TABLET PO (09:01)
[2021-09-22] MEDS: 0.9 % Sodium Chloride Flush 3 ML SYRINGE IVFLUSH (09:01)
[2021-09-22] MEDS: Donepezil HCl 5 MG TABLET PO (09:01)
[2021-09-22] MEDS: Nystatin Powder 15 GM BOTTLE 1 APPL TOPICAL (09:02)
[2021-09-22] MEDS: Metoprolol Succinate ER 25 MG TAB.ER.24H PO (09:02)
[2021-09-22] MEDS: Enoxaparin Sodium 40 MG/0.4 ML SYRINGE SUBCUT (09:02)
[2021-09-22] MEDS: Valsartan 80 MG TABLET PO (10:07)
[2021-09-22 11:04] VITALS: BP 182/89; PULSE 96; O2SAT 96
--- NOTE | 2021-09-22 11:20 | P.DS_ITS ---
DS: Providers Provider Date of Service: 09/22/21 Date of admission: 09/19/21 09:19 Primary care physician: Unknown Physician Consults: 09/19/21 09:28 Consult to Neurology Routine Consulting Provider: [facility] Reason for consultation: acute confusion, prior similar episodes 09/19/21 11:00 Consult to Cardiology Routine Consulting Provider: Jose Otero Reason for consultation: bradycardia, hypotension DS: Diagnosis Discharge Diagnosis (1) Hypernatremia: Status: Acute (2) Toxic metabolic encephalopathy: Status: Acute (3) Shock: Status: Acute (4) Bradycardia: Status: Acute (5) Diabetes mellitus with peripheral angiopathy: Status: Acute DS: Summary Hospital Course Hospital Course: HPI From admission H&P: This is a 65 yo F with a PMH as outlined below who presents to [facility] ED for the second time in 2 days, initially on 09/17 and then on 09/18 with changes in mental status. The patient is currently altered and unable to provide a meaningful history, as such, history is obtained from the ED providers and the patients (and healthcare proxy), Verna Nichole @ [phone]. The patient who was in her usual state of health, presented to [facility] ED on 09/17 as a stroke alert. At that time, it was reported that she was more confused compared to her baseline self. Per the , he had noticed L-sided mouth drooping. She also reported a mild headache at that time. She was diagnosed with Turner's palsy and was discharged home with valacyclovir + prednisone. She returned to the ED 24 hours, now more lethargic. In the ED, a CT head/c-spine were negative for acute findings. She was noted to be hypotensive with HRs in the 40s. She had no fevers. Her UA was equivocal, but she did have leukocytosis. She was given IVF and IV antibiotics and remained hypotensive. She had a central line placed and was started on levophed with plans for ICU admission. However, due to the pandemic and lack of availbility, she was treated in the ED and now has been weaned of levophed. She will be admitted to the floor for further treatment. Hospital Course: Patient was admitted for acute toxic/metabolic encephalopathy and shock of unknown etiology. She required short-term vasopressors while in the emergency room and subsequently was admitted to the floor. She was empirically treated with IV antibiotics which were discontinued once her culture data was negative. She was also treated with intravenous fluids. She was evaluated by Neurology with no specific recommendations other than to treat her metabolic issues. Cardiology also saw her due to bradycardia and shock. Patient's heart rate improved on zone and cardiology also recommended to treat her metabolic issues. With supportive care, the patient's mental status improved to her baseline and her bradycardia/hypotension resolved. In fact she is now beginning to be hypertensive and her antihypertensives have been initiated. Her mental status is at baseline. She is alert to self, year, location but does not recall the events that brought her to the hospital. She will be discharged home with visiting nursing services. Time Spent with Patient Time attestation: Total time spent providing and/or coordinating discharge services: Discharge coordination time: Greater than 30 minutes Quality: Stroke Does the patient have a stroke diagnosis?: No Physical Exam Vital Signs: Vital Signs: Last Vital Signs Temp 97.5 F 09/22/21 07:13 Pulse 96 09/22/21 11:04 Resp 18 09/22/21 07:13 BP 182/89 H 09/22/21 11:04 Pulse Ox 96 09/22/21 11:04 BMI result Body Mass Index 30.1 Const: Other: General - no acute distress, appears comfortable Cardiovascular - regular rate and rhythm, S1-S2 Lungs - normal respiratory effort, clear to auscultation bilaterally, no wheezing Abdomen - soft, nontender, no rebound or guarding Extremities - no edema bilaterally Neuro - awake and alert, no focal deficits; oreinted to person, place and year, not situation DS: Data Data Completed and Pending Completed studies during hospitalization [Text1]: Procedures Drainage of Spinal Canal, Percutaneous Approach, Diagnostic (06/23/20) Fluoroscopy of Spinal Cord (06/23/20) Labs on day of discharge: Laboratory Results - last 24 hr 09/21/21 09/21/21 09/21/21 11:26 16:07 20:27 Sodium Potassium Chloride Carbon Dioxide Anion Gap BUN Creatinine Estim Creat Clear Calc Estimated GFR POC Glucose 263 H 343 H 323 H Random Glucose Calcium 09/22/21 09/22/21 05:04 07:11 Sodium 142 Potassium 3.3 Chloride 107 Carbon Dioxide 22 Anion Gap 16 BUN 16 Creatinine 0.71 Estim Creat Clear Calc 70.7 Estimated GFR > 60 POC Glucose 314 H Random Glucose 305 H Calcium 9.1 Preliminary micro results at discharge 09/18/21 18:44 Blood Culture - Preliminary Blood - Venous No growth after 48 hours. 09/18/21 18:44 Blood Culture - Preliminary Blood - Venous No growth after 48 hours. Discharge Plan Discharge Anticipated Discharge Date/Time: 09/21/21 12:10 Patient Disposition: Home Health Service Discharge Diagnosis: acute mental status changes Referrals: Physician,Unknown J [Primary Care Provider] - 1 Week Discharge Medications: Continued quetiapine 25 mg tablet 25 mg PO BEDTIME RF: 0 atorvastatin 80 mg tablet 1 tab PO DAILY RF: 0 donepezil 5 mg tablet 1 tab PO DAILY RF: 0 valsartan 80 mg tablet 1 tab PO QAM RF: 0 amlodipine 5 mg tablet 1 tab PO DAILY RF: 0 aspirin 81 mg tablet,delayed release (DR/EC) 1 tab PO QAM RF: 0 acetaminophen 500 mg tablet 2 tab PO DAILY PRN (Reason: Pain) RF: 0 meclizine 25 mg tablet 1 tab PO BID PRN (Reason: Dizziness) RF: 0 baclofen 10 mg tablet 1 tab PO TID PRN (Reason: Muscle Spasm) RF: 0 pantoprazole 40 mg tablet,delayed release (DR/EC) 1 tab PO BEDTIME RF: 0 hydrochlorothiazide 12.5 mg capsule 1 cap PO DAILY RF: 0 metoprolol succinate 25 mg tablet extended release 24 hr 1 tab PO DAILY RF: 0 ipratropium bromide 21 mcg (0.03 %) spray,non-aerosol 2 spray intranasal BID RF: 0 insulin lispro [Humalog KwikPen Insulin] 100 unit/mL insulin pen 0 sliding scale dose subcut TIDAC RF: 0 Lantus Solostar U-100 Insulin 100 unit/mL (3 mL) insulin pen 40 unit subcut BEDTIME RF: 0 Myrbetriq 25 mg tablet extended release 24 hr 1 tab PO DAILY RF: 0 multivitamin Tablet 1 tab PO QAM RF: 0 oxybutynin chloride 15 mg tablet extended release 24 hr 1 tab PO DAILY RF: 0 dicyclomine 20 mg tablet 1 tab PO TID PRN (Reason: gi upset) RF: 0 benzonatate 100 mg capsule 1 cap PO TID PRN (Reason: cough) RF: 0 polyethylene glycol 3350 [ClearLax] 17 gram/dose powder 17 g PO DAILY PRN (Reason: Constipation) RF: 0 Prolensa 0.07 % drops 1 drp ophthalmic (eye) BEDTIME PRN (Reason: pain) RF: 0 Discharge Orders: Discharge Order (Routine); Ordered 09/22/21 Ordered By: Franco Villa Diet: other Activity on Discharge: As tolerated Stand Alone Forms: Patient Portal Discharge page Care Plan Goals: To stay healthy and out of the hospital. Health Concerns: Altered mental status Plan of Treatment: Continue your usual medications Assessment: see d/c summary
--- NOTE | 2021-09-22 11:27 | W.MHC.F2F ---
Service Date Service Date: 09/22/21 Encounter Date of encounter: 09/22/21 Reasons for Services Signs and symptoms assessed: neurological status BP / HR monitoring Reason for nursing home: neurological assessment, medication management and medication treatment Reason for occupational therapy: home safety and mobility MD Overseeing Care: Chris Rodriguez Homebound: Leaving the home is medically contraindicated at this time without the asist of a device and/or another person due th the listed conditions above and below. Reason homebound: cognitively impaired / unsafe Certification: Based on the above findings, I certify that this patient is confined to the home and needs intermittent nursing home care, physical therapy and/or speech therapy, or continues to need occupational therapy. The patient is under my care, and I have initiated the establishment of the plan of care. The patient will be followed by a physician who will periodically review the plan of care.
[2021-09-22 11:34] LABS: Glucose, Whole Blood 296 mg/dL (60-115)
[2021-09-22 11:36] VITALS: BP 136/90; PULSE 101; RESP 18; TEMP 36; O2SAT 96
--- NOTE | 2021-09-22 11:47 | PM.PNCARD ---
Subjective Subjective Date of Service: 09/22/21 Interval history: Awake and alert. Denying any symptoms. Blood pressure is elevated. Physical Exam Vital Signs: Last Vital Signs Temp 96.8 F 09/22/21 11:36 Pulse 101 H 09/22/21 11:36 Resp 18 09/22/21 11:36 BP 136/90 H 09/22/21 11:36 Pulse Ox 96 09/22/21 11:36 BMI result Body Mass Index 30.1 GENERAL APPEARANCE: in no acute distress, pleasant. NECK: no carotid bruit, no jugular venous distention. SKIN: no suspicious lesions, warm and dry. HEART: no murmurs, regular rate and rhythm. LUNGS: clear to auscultation bilaterally. ABDOMEN: soft, nontender. EXTREMITIES: no edema. Objective Labs and Meds Result diagrams: 09/21/21 04:05 09/22/21 05:04 Lab results: Laboratory Results - last 24 hr 09/21/21 09/21/21 09/22/21 16:07 20:27 05:04 Sodium 142 Potassium 3.3 Chloride 107 Carbon Dioxide 22 Anion Gap 16 BUN 16 Creatinine 0.71 Estim Creat Clear Calc 70.7 Estimated GFR > 60 POC Glucose 343 H 323 H Random Glucose 305 H Calcium 9.1 09/22/21 09/22/21 07:11 11:20 Sodium Potassium Chloride Carbon Dioxide Anion Gap BUN Creatinine Estim Creat Clear Calc Estimated GFR POC Glucose 314 H 296 H Random Glucose Calcium Progress Note: A&P Assessment and plan (1) Toxic metabolic encephalopathy: Status: Acute (2) Essential hypertension: Status: Acute Assessment and Plan: Pleasant 65-year-old female who is admitted with change in mental status. Initially was bradycardic but improved. Blood pressure is elevated. On amlodipine, valsartan and metoprolol. Asymptomatic. If BP continues to be elevated with this regimen then increase amlodipine to 10 mg. Thank you for allowing me to participate in the care of your patient. Please feel free to contact me if you have any questions. Fall Risk Details Current Medications: Current Medications Acetaminophen (Acetaminophen 325 Mg Tablet) 650 mg PO Q6H PRN PRN Reason: Pain, Mild (Pain Scale 1-3) Amlodipine Besylate (Amlodipine Besylate 5 Mg Tablet) 5 mg PO DAILY [facility]; Protocol Last Admin: 09/22/21 09:01 Dose: 5 mg Documented by: Aspirin (Aspirin Enteric Coated 81 Mg Tablet.) 81 mg PO DAILY [facility] Last Admin: 09/22/21 09:01 Dose: 81 mg Documented by: Atorvastatin Calcium (Atorvastatin Calcium 80 Mg Tablet) 80 mg PO DAILY [facility] Last Admin: 09/22/21 09:01 Dose: 80 mg Documented by: Donepezil HCl (Donepezil Hcl 5 Mg Tablet) 5 mg PO DAILY [facility] Last Admin: 09/22/21 09:01 Dose: 5 mg Documented by: Enoxaparin Sodium (Enoxaparin Sodium 40 Mg/0.4 Ml Syringe) 40 mg SUBCUT Q24H [facility] Last Admin: 09/22/21 09:02 Dose: 40 mg Documented by: Ceftriaxone Sodium 1 gm/ (Sodium Chloride) 50 mls @ 100 mls/hr IV Q24H [facility] Last Infusion: 09/21/21 19:18 Dose: Infused Documented by: Insulin Glargine (Insulin Glargine,Hum.Rec.Anlog 100 Unit/Ml 10 Ml Vial) 20 unit SUBCUT BEDTIME [facility] Last Admin: 09/21/21 20:58 Dose: 20 unit Documented by: Insulin Human Lispro (Insulin Lispro 100 Unit/Ml 3 Ml Vial) 0 unit SUBCUT QIDACHS [facility]; Protocol Last Admin: 09/22/21 09:00 Dose: 8 unit Documented by: Lorazepam (Lorazepam 2 Mg/Ml Vial) 0.5 mg IVPUSH Q6H PRN PRN Reason: anxiety/restlessness Last Admin: 09/20/21 00:54 Dose: 0.5 mg Documented by: Metoprolol Succinate (Metoprolol Succinate Er 25 Mg Tab.Er.24h) 25 mg PO DAILY [facility]; Protocol Last Admin: 09/22/21 09:02 Dose: 25 mg Documented by: Nystatin (Nystatin Powder 15 Gm Bottle) 1 appl TOPICAL BID [facility]; Protocol Last Admin: 09/22/21 09:02 Dose: 1 appl Documented by: Omeprazole (Omeprazole 20 Mg Capsule.) 20 mg PO BEDTIME [facility] Last Admin: 09/21/21 20:57 Dose: 20 mg Documented by: Ondansetron HCl (Ondansetron Hcl 4 Mg/2 Ml Vial) 4 mg IVPUSH Q8H PRN PRN Reason: Nausea and Vomiting Pharmacy Consult (Consult Rx Perform Med Rec) 1 each MISCELLANE ONCE PRN PRN Reason: Consult order Potassium Chloride (Potassium Chloride Packet 20 Meq Packet) 20 meq PO DAILY [facility] Last Admin: 09/22/21 09:00 Dose: 20 meq Documented by: Sodium Chloride (0.9 % Sodium Chloride Flush 3 Ml Syringe) 3 ml IVFLUSH QSHIFT [facility] Last Admin: 09/22/21 09:01 Dose: 3 ml Documented by: Valsartan (Valsartan 80 Mg Tablet) 80 mg PO DAILY [facility]; Protocol Last Admin: 09/22/21 10:07 Dose: 80 mg Documented by: Time Spent With Patient Time: Total time spent is greater than 50% in coordination of care (as documented) at patient's floor/unit and/or counseling patient: Time with patient: 15 - 24 minutes Progress Note: Quality Stroke Does the patient have a stroke diagnosis?: No Procedures Date of Service Date of Service: 09/22/21
--- NOTE | 2021-09-22 11:54 | MHC.SL.SWA ---
Speech Pathologist Impression: Risk of Aspiration Oralpharyngeal Dysphagia Risk of Aspiration Due to: Neurological Condition Dysphasia Diet Status: NO CHANGE Liquid Consistency and Strategies for Safe Swallow: Liquid Intake Recommendation: Thin Liquid Intake Strategies: Small Sips Solid Food Consistency: Dietary Recommendations: Grnd/Mech Altered (NDD2) Patient is edentulous and does not have dentures. Recommend GROUND/MECH ALTERED (NDD2) solids for ease of mastication and THIN liquids, pills WHOLE or CRUSHED in PUREE. At home, patient may self-select soft, easy to chew solids d/t choking risk as patient lacks dentition. Continue aspiration precautions. Further ST intervention is no longer warranted as patient is on the safest, least restrictive textures. Please re-refer with any changes or further concern. Oral Medication Intake: Whole with Puree Compensatory Strategies and Precautions to be Taken for Safe Swallow: Sitting Upright (90 deg) Small Bites and Sips Alternate Liquids/Solids Rate of Ingestion Change Avoid Specific Foods Supervision While Eating and Drinking for Safe Swallow: Intermittent Supervision Foods to Avoid: Moisten solids with sauces and gravies for ease of mastication. Swallowing Recommended Treatments: Compens. Strategy Educat. Recommendation for Speech: d/c Revival Clerk Clinican/Clinical Fellow: No Supervisory Statement: I have reviewed and agree with the student/clinical fellow's documentation: N/A Speech Language Pathologist: Felisa Dodson M.A., CCC-PAYROLL ACCOUNTING CLERK
--- NOTE | 2021-09-22 12:12 | MHC.CM.PN ---
PT MEDICALLY CLEARED FOR D/C HOME W/[facility] FOR SN AND HOME PT, PT'S WILL GROUND [employer] SUPPORT PT AT 3PM, NURSING AND UNIT AWARE
== END 2021-09-22 15:00 | disposition home health service (06) | DRG 689 ==
LOC: HO.ED 09-19 10:08 → HO.EDOVER 09-19 10:23 → HO.S3 09-19 16:22
PROVIDERS: Emergency Medicine; Nurse Practitioner Acute Care; Admitting Provider Family Medicine; Emergency Provider Internal Medicine; Visit Provider Physician Assistant Medical
DX: N39.0 Urinary tract infection, site not specified (principal); G92.8 Other toxic encephalopathy; E87.0 Hyperosmolality and hypernatremia; R57.9 Shock, unspecified; R00.1 Bradycardia, unspecified; H47.619 Cortical blindness, unspecified side of brain; Z86.73 Personal history of transient ischemic attack (TIA), and cerebral infarction without residual deficits; F03.90 Unspecified dementia, unspecified severity, without behavioral disturbance, psychotic disturbance, mood disturbance, and anxiety; D72.829 Elevated white blood cell count, unspecified; I10 Essential (primary) hypertension; E11.51 Type 2 diabetes mellitus with diabetic peripheral angiopathy without gangrene; Z87.440 Personal history of urinary (tract) infections; Z20.822 Contact with and (suspected) exposure to COVID-19; Z88.0 Allergy status to penicillin; Z88.2 Allergy status to sulfonamides; Z79.4 Long term (current) use of insulin; Z79.82 Long term (current) use of aspirin; Z79.899 Other long term (current) drug therapy
CPT/HCPCS: 36415; 70450; 71045; 72125; 74018; 80048; 80076; 80307; 81001; 82077; 82140; 82550; 82803; 82947; 83605; 83690; 83735; 84145; 84443; 84484; 85025; 85027; 85610; 87040; 87635; 92526; 92610; 93005; 96361; 96365; 96366; 96367; 96375; 96376; 97116; 97162; 99285; 99291; J0461; J0610; J0696; J1650; J2060

== ENCOUNTER 2021-09-27 12:59 | Emergency (ER) | payer MEDICARE, SELFPAY ==
[2021-09-27] VITALS (8 sets, daily range): BP systolic 140–155; BP diastolic 44–90; PULSE 57–68; RESP 12–18; TEMP 36–36.7; O2SAT 94–100; BMI 33.0
[2021-09-27 13:28] LABS: Glucose, Whole Blood 363 mg/dL (60-115)
--- NOTE | 2021-09-27 13:35 | ED.GENADULT ---
HPI - General Adult General Chief complaint: Altered Mental Status Stated complaint: AMS,HYPERGLYCEMIA Time Seen by Provider: 09/27/21 13:19 Source: patient History of Present Illness HPI narrative: P this is a 65-year-old female with a history of diabetes mellitus, Lewy body dementia with behavioral disturbance, who resides at a nursing facility. The patient had been seen at [facility] 4 days ago for weakness and was discharged. The patient today was noted to seem weaker, more lethargic and was noted to have a high blood sugar in the 500s. She was sent in for evaluation. Supposedly can usually ambulate but today appeared too weak. The patient herself denies any complaints. She said she feels like she has her usual self. She denies any headache, chest pain, shortness of breath, abdominal pain, nausea, vomiting, cough Related Data Home Medications Medication Instructions Recorded Confirmed acetaminophen 500 mg tablet 2 tab PO DAILY PRN 08/06/21 09/19/21 amlodipine 5 mg tablet 1 tab PO DAILY 08/06/21 09/19/21 aspirin 81 mg tablet,delayed 1 tab PO QAM 08/06/21 09/19/21 release atorvastatin 80 mg tablet 1 tab PO DAILY 08/06/21 09/19/21 baclofen 10 mg tablet 1 tab PO TID PRN 08/06/21 09/19/21 donepezil 5 mg tablet 1 tab PO DAILY 08/06/21 09/19/21 hydrochlorothiazide 12.5 mg capsule 1 cap PO DAILY 08/06/21 09/19/21 insulin glargine 100 unit/mL (3 40 unit SUBCUT BEDTIME 08/06/21 09/19/21 mL) subcutaneous pen (Lantus Solostar U-100 Insulin) insulin lispro 100 unit/mL 0 sliding scale dose SUBCUT TIDAC 08/06/21 09/19/21 subcutaneous pen (Humalog KwikPen (U-100) Insulin) ipratropium bromide 21 mcg (0.03 2 spray INTRANASAL BID 08/06/21 09/19/21 %) nasal spray meclizine 25 mg tablet 1 tab PO BID PRN 08/06/21 09/19/21 metoprolol succinate 25 mg 1 tab PO DAILY 08/06/21 09/19/21 tablet,extended release 24 hr mirabegron 25 mg tablet,extended 1 tab PO DAILY 08/06/21 09/19/21 release 24 hr (Myrbetriq) pantoprazole 40 mg tablet,delayed 1 tab PO BEDTIME 08/06/21 09/19/21 release quetiapine 25 mg tablet 25 mg PO BEDTIME 08/06/21 09/19/21 valsartan 80 mg tablet 1 tab PO QAM 08/06/21 09/19/21 benzonatate 100 mg capsule 1 cap PO TID PRN 09/19/21 09/19/21 bromfenac 0.07 % eye drops 1 drp OPHTHALMIC (EYE) BEDTIME PRN 09/19/21 09/19/21 (Prolensa) dicyclomine 20 mg tablet 1 tab PO TID PRN 09/19/21 09/19/21 multivitamin 1 tab PO QAM 09/19/21 09/19/21 oxybutynin chloride 15 mg 1 tab PO DAILY 09/19/21 09/19/21 tablet,extended release 24 hr polyethylene glycol 3350 17 17 g PO DAILY PRN 09/19/21 09/19/21 gram/dose oral powder (ClearLax) Allergies Allergy/AdvReac Type Severity Reaction Status Date / Time Sulfa (Sulfonamide Allergy Severe DIFFICULTY Verified 09/27/21 13:12 Antibiotics) BREATHING [SULFA (SULFONAMIDE ANTIBIOTICS)] cephalexin [From KEFLEX] Allergy Intermediate RASH,HIVES Verified 09/27/21 13:12 amoxicillin [AMOXICILLIN] Allergy Unknown DENIES Verified 09/27/21 13:12 THIS ALLERGY 03/28/2018 penicillin V Allergy Unknown Unknown Verified 09/27/21 13:12 sumatriptan [From IMITREX] AdvReac Severe HEART Verified 09/27/21 13:12 PALPITATIONS topiramate [From TOPAMAX] AdvReac Severe AGITATION Verified 09/27/21 13:12 Review of Systems Review of Systems: Yes Other (Limited by dementia) Constitutional: Constitutional: Reports as per HPI and Denies headache(s) Eyes: Eyes: Reports as per HPI ENT: Reports system reviewed and no additional complaints, except as documented and Denies headache(s) Cardiovascular: Cardiovascular: Reports as per HPI Respiratory: Respiratory: Reports as per HPI Gastrointestinal: Gastrointestinal: Reports as per HPI Musculoskeletal: Musculoskeletal: Reports no additional musculoskeletal complaints Neurologic: Denies headache(s) and Denies Sensory deficit (Neuro) PMFSH Past Medical History Medical History Anxiety Asthma CHF (congestive heart failure) Cortical blindness Diabetes Diabetic acetonemia Dyspnea on exertion Essential hypertension HTN (hypertension) Myalgia and myositis Neuropathy Nocturnal hypoxemia Obesity (BMI 30-39.9) Orthopnea Restrictive lung disease 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 Mother Angina at rest Sister Lung cancer Colon cancer COPD (chronic obstructive pulmonary disease) Social History Social History Household Members: Spouse Housing: Unknown / Unable to assess Unable to assess alcohol history related to: Unable to respond Alcohol intake: never Patient Tobacco Use Status: Never used Tobacco e-Cigarette/Vaping Use: Never Used Second Hand Smoke Exposure: No Use of substances other than those prescribed or required for medical reasons: No Advance Directives: Yes Advance Directives on File: Yes Advance Directives Date on File: 07/27/20 service: No Current occupational status: disabled Current occupation: right handed Sexual orientation: Straight/Heterosexual Physical Exam Vital Signs: Vital Signs: Last Vital Signs Temp 97.8 F 09/27/21 15:11 Pulse 67 09/27/21 15:11 Resp 16 09/27/21 15:11 BP 152/67 H 09/27/21 15:11 Pulse Ox 94 09/27/21 15:11 BMI result Body Mass Index 33.0 Const: Other: Alert, verbal answers questions, though says no to almost everything General: cooperative, no acute distress and alert Orientation/consciousness: oriented to person HENMT: Head: Yes normal to inspection Eyes: General: appearance normal, both eyes and all related structures Eyelids: Yes eyelids normal Conjunctivae: conjunctivae normal Pupils: Equal, round and reactive pupils present Neck: Neck: Yes normal visual inspection and Yes supple Chest: Chest palpation & inspection: normal inspection of the chest Resp: Effort & Inspection: normal respiratory effort Auscultation: clear to auscultation bilaterally Cardio: Rate: regular rate Rhythm: regular rhythm Heart sounds: S1 normal heart sound present, S2 normal heart sound present, no gallops, no murmurs and no rubs GI: Palpation (GI): Soft to palpation, nontender and Other GI palpation findings present (Non-distended) Auscultation: normal bowel sounds Skin: General skin exam: no rashes or lesions noted Neuro: General: oriented to person, moves all extremities, no focal motor deficits and CN's II-XI intact bilaterally Cranial nerves: Yes Equal, round and reactive pupils present Cognition (Neuro): normal cognition Motor exam (neuro): 5/5 motor strength present throughout Sensory Exam: No Sensory deficit (Neuro) Extrem: General: Yes normal to inspection and Yes no pedal edema Psych: Appearance: grossly normal Affect: normal affect Medical Decision Making MDM Narrative Medical decision making narrative: Patient with history of Lewy body dementia, diabetes, on insulin, had been seen at [facility] 4 days ago, has been seen here multiple times. Patient really was more weak today. She appears alert and responsive and answers questions appropriately, has a nonfocal neuro exam. Fingerstick blood sugar in the mid 300s after normal saline 1 L IV. Patient is being given insulin 10 units subcutaneous, can be discharged home if her urinalysis is negative and she is able to ambulate. Patient feels that she is at her baseline and will be able to go home. Lab Data Lab results reviewed: Yes I reviewed the patient's lab results. Result diagrams: 09/27/21 13:42 09/27/21 14:55 Labs: Lab Results 09/27/21 09/27/21 09/27/21 Range/Units 13:24 13:42 14:55 WBC 7.3 (4.8-10.8) X10*3/uL RBC 4.00 L (4.20-5.50) X10*6/uL Hgb 12.9 (12.0-16.0) g/dl Hct 38.9 (37.0-47.0) % MCV 97.3 (80.0-98.0) fL MCH 32.3 (27.0-33.0) pg MCHC 33.2 (31.0-35.0) g/dl RDW 13.8 (11.0-16.0) % Plt Count 202 (160-400) X10*3/uL MPV 9.9 (9.4-12.3) fL Immature Gran % (Auto) 0.8 H (0.0-0.4) % Neut % (Auto) 75.1 H (45-73) % Lymph % (Auto) 14.7 L (20-40) % [place] % (Auto) 8.2 (2-11) % Eos % (Auto) 0.8 (0-4) % Baso % (Auto) 0.4 (0-2) % Lymph # (Auto) 1.1 L (1.2-4.9) X10*3/uL [place] # (Auto) 0.6 (0.1-1.2) X10*3/uL Eos # (Auto) 0.1 (0.0-0.4) X10*3/uL Baso # (Auto) 0.0 (0.0-0.2) X10*3/uL Abs Immat Gran (auto) 0.06 H (0.00-0.03) X10*3/uL Absolute Neuts (auto) 5.5 (2.0-8.3) x10*3/uL Absolute Nucleated RBC 0.000 (0.0-0.012) X10*3/uL Nucleated RBC % (auto) 0.0 (0.0-0.2) /100WBC Sodium 142 (135-145) mmol/L Potassium 4.4 D (3.3-5.1) mmol/L Chloride 110 H (96-108) mmol/L Carbon Dioxide 21 L (22-29) mmol/L Anion Gap 15 (12-20) BUN 19 H (9-16) mg/dL Creatinine 0.84 (0.5-1.4) mg/dL Estim Creat Clear Calc 70.6 Estimated GFR > 60 POC Glucose 363 H* (60-115) mg/dL Random Glucose 405 H* (60-115) mg/dL Calcium 9.4 (8.4-10.2) mg/dL Total Bilirubin 0.4 (0.0-1.0) mg/dL AST 15 D (5-31) U/L ALT 25 (0-31) U/L Alkaline Phosphatase 74 D (39-117) U/L Total Protein 6.6 (6.5-8.0) g/dL Albumin 3.8 (3.5-5.0) g/dL 09/27/21 Range/Units 16:07 WBC (4.8-10.8) X10*3/uL RBC (4.20-5.50) X10*6/uL Hgb (12.0-16.0) g/dl Hct (37.0-47.0) % MCV (80.0-98.0) fL MCH (27.0-33.0) pg MCHC (31.0-35.0) g/dl RDW (11.0-16.0) % Plt Count (160-400) X10*3/uL MPV (9.4-12.3) fL Immature Gran % (Auto) (0.0-0.4) % Neut % (Auto) (45-73) % Lymph % (Auto) (20-40) % [place] % (Auto) (2-11) % Eos % (Auto) (0-4) % Baso % (Auto) (0-2) % Lymph # (Auto) (1.2-4.9) X10*3/uL [place] # (Auto) (0.1-1.2) X10*3/uL Eos # (Auto) (0.0-0.4) X10*3/uL Baso # (Auto) (0.0-0.2) X10*3/uL Abs Immat Gran (auto) (0.00-0.03) X10*3/uL Absolute Neuts (auto) (2.0-8.3) x10*3/uL Absolute Nucleated RBC (0.0-0.012) X10*3/uL Nucleated RBC % (auto) (0.0-0.2) /100WBC Sodium (135-145) mmol/L Potassium (3.3-5.1) mmol/L Chloride (96-108) mmol/L Carbon Dioxide (22-29) mmol/L Anion Gap (12-20) BUN (9-16) mg/dL Creatinine (0.5-1.4) mg/dL Estim Creat Clear Calc Estimated GFR POC Glucose 352 H* (60-115) mg/dL Random Glucose (60-115) mg/dL Calcium (8.4-10.2) mg/dL Total Bilirubin (0.0-1.0) mg/dL AST (5-31) U/L ALT (0-31) U/L Alkaline Phosphatase (39-117) U/L Total Protein (6.5-8.0) g/dL Albumin (3.5-5.0) g/dL Discharge Plan Discharge Clinical Impression: Acute hyperglycemia, Weakness Patient Disposition: Home, Self-Care Instructions: Weakness (ED), Diabetic Hyperglycemia (ED) Additional Instructions: Drink plenty of fluids. Continue your insulin as previously prescribed, as well as the sliding scale insulin. Follow up with her primary care physician. Return for any new or worsened symptoms Prescriptions: No Action quetiapine 25 mg tablet 25 mg PO BEDTIME RF: 0 atorvastatin 80 mg tablet 1 tab PO DAILY RF: 0 donepezil 5 mg tablet 1 tab PO DAILY RF: 0 valsartan 80 mg tablet 1 tab PO QAM RF: 0 amlodipine 5 mg tablet 1 tab PO DAILY RF: 0 aspirin 81 mg tablet,delayed release (DR/EC) 1 tab PO QAM RF: 0 acetaminophen 500 mg tablet 2 tab PO DAILY PRN (Reason: Pain) RF: 0 meclizine 25 mg tablet 1 tab PO BID PRN (Reason: Dizziness) RF: 0 baclofen 10 mg tablet 1 tab PO TID PRN (Reason: Muscle Spasm) RF: 0 pantoprazole 40 mg tablet,delayed release (DR/EC) 1 tab PO BEDTIME RF: 0 hydrochlorothiazide 12.5 mg capsule 1 cap PO DAILY RF: 0 metoprolol succinate 25 mg tablet extended release 24 hr 1 tab PO DAILY RF: 0 ipratropium bromide 21 mcg (0.03 %) spray,non-aerosol 2 spray intranasal BID RF: 0 insulin lispro [Humalog KwikPen Insulin] 100 unit/mL insulin pen 0 sliding scale dose subcut TIDAC RF: 0 Lantus Solostar U-100 Insulin 100 unit/mL (3 mL) insulin pen 40 unit subcut BEDTIME RF: 0 Myrbetriq 25 mg tablet extended release 24 hr 1 tab PO DAILY RF: 0 multivitamin Tablet 1 tab PO QAM RF: 0 oxybutynin chloride 15 mg tablet extended release 24 hr 1 tab PO DAILY RF: 0 dicyclomine 20 mg tablet 1 tab PO TID PRN (Reason: gi upset) RF: 0 benzonatate 100 mg capsule 1 cap PO TID PRN (Reason: cough) RF: 0 polyethylene glycol 3350 [ClearLax] 17 gram/dose powder 17 g PO DAILY PRN (Reason: Constipation) RF: 0 Prolensa 0.07 % drops 1 drp ophthalmic (eye) BEDTIME PRN (Reason: pain) RF: 0
[2021-09-27] MEDS: 0.9 % Sodium Chloride 1,000 ML 999 ML IV (13:45)
[2021-09-27 13:49] LABS: MANUAL DIFF FLAG NO
[2021-09-27 13:50] LABS: Basophils Percent Auto 0.4 % (0-2); Eosinophils Absolute Auto 0.1 X10*3/uL (0.0-0.4); Eosinophils Percent Auto 0.8 % (0-4); Hematocrit 38.9 % (37.0-47.0); Hemoglobin 12.9 g/dl (12.0-16.0); Imm Gran Abs Auto 0.06 X10*3/uL (0.00-0.03); Imm Gran Pct Auto 0.8 % (0.0-0.4); Lymphocytes Absolute Auto 1.1 X10*3/uL (1.2-4.9); Lymphocytes Percent Auto 14.7 % (20-40); Mean Corpuscular HGB Conc 33.2 g/dl (31.0-35.0); Mean Corpuscular Hemoglobin 32.3 pg (27.0-33.0); Mean Corpuscular Volume 97.3 fL (80.0-98.0); Mean Platelet Volume 9.9 fL (9.4-12.3); Monocytes Absolute Auto 0.6 X10*3/uL (0.1-1.2); Monocytes Percent Auto 8.2 % (2-11); Neutrophils Absolute Auto 5.5 x10*3/uL (2.0-8.3); Neutrophils Percent Auto 75.1 % (45-73); Platelet Count 202 X10*3/uL (160-400); Red Cell Distribution Width 13.8 % (11.0-16.0); White Blood Count 7.3 X10*3/uL (4.8-10.8)
[2021-09-27 15:42] LABS: Alanine Aminotransferase 25 U/L (0-31); Albumin Level 3.8 g/dL (3.5-5.0); Alkaline Phosphatase 74 U/L (39-117); Anion Gap 15 (12-20); Aspartate Amino Transferase 15 U/L (5-31); Bilirubin Total 0.4 mg/dL (0.0-1.0); Blood Urea Nitrogen 19 mg/dL (9-16); Calcium 9.4 mg/dL (8.4-10.2); Carbon Dioxide 21 mmol/L (22-29); Chloride 110 mmol/L (96-108); Creatinine Clr Calc Pharmacy 70.6; Estimated Glomerular Filt Rate > 60; Glucose Random 405 mg/dL (60-115); Potassium 4.4 mmol/L (3.3-5.1); Sodium 142 mmol/L (135-145); Total Protein 6.6 g/dL (6.5-8.0)
--- NOTE | 2021-09-27 15:49 | PC.NURSE ---
mentation seems better, more conversive. speech is clearer. nsr on monitor. aura was difficult and will be attempted again.
[2021-09-27 16:19] LABS: Glucose, Whole Blood 352 mg/dL (60-115)
[2021-09-27] MEDS: Insulin Lispro 100 UNIT/ML 3 ML VIAL 10 UNIT SUBCUT (17:17)
--- NOTE | 2021-09-27 17:19 | PC.NURSE ---
no change from lass assessment. alet. sitting up in bed.
[2021-09-27 17:38] LABS: Appearance Urine CLEAR; Color Urine YELLOW; Glucose Urine UA >=1000 MG/DL (NEG); Leukocyte Esterase Urine NEG (NEG); Nitrite Urine NEG (NEG); Specific Gravity - Urine 1.015 (1.005-1.025); Urine Blood NEG (NEG); Urine Ketones NEG (NEG); Urine Protein NEG (NEG-TRACE)
[2021-09-27 18:20] LABS: Glucose, Whole Blood 283 mg/dL (60-115)
[2021-09-27 19:05] LABS: Bacteria Urine TRACE /LPF; RBC Urine 0-2 /HPF (0); Squamous Epithelial Cell Urine TRACE /LPF; WBC Urine 0-2 /HPF (0-4)
--- NOTE | 2021-09-27 20:10 | PC.NURSE ---
pt up for d/c. pt confused about personal belongings, verbalizations are confused. pt stated to call for ride, this RN called and he is unable to pick her up. pts sister Stephanie (health care proxy) called and stated that is unable to take care of her at home, states that she is looking around for potential assisted living for Natalia. Provider (Sherry) notified that pt may not be safe to go home at this time. Case management also notified.
[2021-09-27] MEDS: LORazepam 2 MG/ML VIAL IM (21:59)
[2021-09-27] MEDS: Haloperidol Lactate 5 MG/ML VIAL 2 MG IM ×2 (22:00→22:24)
--- NOTE | 2021-09-27 23:07 | MHC.CM.ED ---
CM received consult from Dr. Powell. ? pt safe to go home. CM attempted to meet with pt. Pt had tried to elope from ED. Pt is confused and combative. Yelling. States she is going home. Trying to hit staff. Pt tells CM that her hasn't been home in 2 years. Her has been home and has been caring for her. /HCP Ant Nichole ([phone]) tells CM he barricaded the stairs last night, because he was afraid she would go upstairs and fall. States he cannot leave her alone. States she has been confused for the past year, but worse recently. 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 Pt was diagnosed with Lewy Body dementia by Dr. Horowitz in 2019. understands that she may need to go to a care home. Pt has services with [facility]. Will need to contact them in the morning. Dr. Powell aware of above. CM has requested that patient remain in the ED overnight, with a Psych consult for capacity. aware of this plan and that if patient is found not to have capacity, he will need to make medical decisions for her. Also, her is agreeable to a referral to financial services for help with the MH application. Ant is aware that he will need to bring in requested financial documents and if approved, that is how the care home will be paid for. Ant states they rent and do not have much money. Pt sister, Stephanie Randall is also involved and will help ([phone]). CM will follow for safe discharge.
[2021-09-28] VITALS (7 sets, daily range): BP systolic 131–185; BP diastolic 67–83; PULSE 81–108; RESP 15–18; TEMP 36.6–36.8; O2SAT 96–99
--- NOTE | 2021-09-28 03:30 | PC.NURSE ---
At 0330 pt refused routine vitals.
--- NOTE | 2021-09-28 07:42 | PC.NURSE ---
This RN found patient alert in bed, patient had pulled out chavarria cath, told nurse she was told to do so by the staff. Patient had done same thing on previous shift. Vitals updated.
[2021-09-28 09:10] LABS: Glucose, Whole Blood 142 mg/dL (60-115)
--- NOTE | 2021-09-28 12:09 | PHA.MEDREC ---
Pharmacy Consult ? Medication Reconciliation Pharmacy has completed the medication reconciliation. Patient recently discharged from her on 09/22/21. There were no medication changes on discharge. Patient has a new prescription for doxcycline filled on 09/25/2021 for 7 days. Chela Mattson, PharmD
--- NOTE | 2021-09-28 12:09 | MHC.CM.ED ---
Patient remains in ER. Patient still waiting to be evaluated by Psych to see if she has the capacity to make her own decisions. Patient's sister will be dropping off paperwork to [place] in [employer] today to complete [facility] application. Continue to monitor for d/c needs.
--- NOTE | 2021-09-28 13:49 | P.CNPS_ITS ---
History of Present Illness Date of Service: 09/28/21 Chief Complaint: AMS,HYPERGLYCEMIA Reason for Consult: capacity determination Requesting physician: Keith Kim Discussed with referring provider: No (discussed directly with covering provider, MARCUS Cee, while in ED) Sources of Information: patient interviewed, chart reviewed and crisis/core team assessment reviewed HPI Narrative: Patient is a 65-year-old female with a history of diabetes mellitus, Lewy body dementia with behavioral disturbance, stroke, among multiple other health conditions. Patient had been sent to [facility] for weakness and was discharged. She presented to this ED due to continued weakness, lethargy, elevated blood sugar. Patient has presented to this ED multiple times over past 1 1/2 years with similar concerns. Patient was admitted to in 07/2020. She has also had multiple psychiatric consultations over the past year, with AMS. Patient is pleasant upon approach. She was sitting up in bed, eating her lunch. She described her mood as ?okay ?. She was A&OX1-2. Oriented grossly to self, month, year. She was able to state that she was in a hospital, but was unsure where. Unable to state where she resides, states [place] . Mood appears stable, however patient appears to have cognitive impairment. When asked why she was in the hospital, she stated that she was here for cataract surgery. She also stated that she has diabetes. A MOCA was administered, with score 10/30. She demonstrated poor recall. Difficulty with executive functions/visuospatial ability. Scored poorly regarding language abilities and abstraction. Attention was inconsistent. Was unable to draw clock, also unable to draw correct time. Past Psychiatric History: IPLOC on 07/2020. Multiple psychiatric consults here in ED over past year. 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 Review of Systems Review of Systems A full review of systems was completed and was negative with the exception of pertinent positives noted in history of the presenting illness (HPI). Constitutional: Reports no additional constitutional complaints [facility] Medical History Acute hypotension Anxiety Asthma Bradycardia CHF (congestive heart failure) Cortical blindness Diabetes Diabetic acetonemia Dyspnea on exertion Encephalopathy Essential hypertension HTN (hypertension) Hypernatremia Myalgia and myositis Neuropathy Nocturnal hypoxemia Obesity (BMI 30-39.9) Orthopnea Restrictive lung disease Shock Stroke due to stenosis of posterior cerebral artery Toxic metabolic encephalopathy Type 2 diabetes mellitus with unspecified complications UTI (urinary tract infection) Surgical History History of appendectomy History of arthroscopy of both knees History of hysterectomy History of pancreatic surgery Family History: M: completed suicide/ recurrent hospitalizations Social History: lives with H of > 30 years. He is elderly and struggling to cope. 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 Has D from first marriage. Has 9 grandchildren Substance History: none reported Trauma History: None explored Diagnostics Vital Signs (24Hr): Vital Signs - 24 hr 09/27/21 15:11 09/27/21 17:18 09/27/21 19:36 Temperature 97.8 F 98.0 F 97.5 F Pulse Rate 67 67 66 Respiratory Rate 16 18 12 Blood Pressure 152/67 H 153/79 H 151/74 H Pulse Oximetry 94 99 100 09/27/21 22:15 09/27/21 22:30 09/27/21 22:45 Temperature Pulse Rate Respiratory Rate 16 16 16 Blood Pressure Pulse Oximetry 09/27/21 23:00 09/28/21 00:07 09/28/21 02:00 Temperature Pulse Rate Respiratory Rate 16 16 16 Blood Pressure Pulse Oximetry 09/28/21 06:00 09/28/21 07:32 09/28/21 12:48 Temperature 98.2 F 97.9 F Pulse Rate 83 81 Respiratory Rate 16 15 16 Blood Pressure 173/67 H 131/73 Pulse Oximetry 97 98 BMI result Verdana 4 Body Mass Index Verdana 4 33.0 Verdana 4 Verdana 4 Labs Results: 09/27/21 13:42 09/27/21 14:55 Labs: Laboratory Results - last 48 hr 09/27/21 09/27/21 09/27/21 13:24 13:42 14:55 WBC 7.3 RBC 4.00 L Hgb 12.9 Hct 38.9 MCV 97.3 MCH 32.3 MCHC 33.2 RDW 13.8 Plt Count 202 MPV 9.9 Immature Gran % (Auto) 0.8 H Neut % (Auto) 75.1 H Lymph % (Auto) 14.7 L [place] % (Auto) 8.2 Eos % (Auto) 0.8 Baso % (Auto) 0.4 Lymph # (Auto) 1.1 L [place] # (Auto) 0.6 Eos # (Auto) 0.1 Baso # (Auto) 0.0 Abs Immat Gran (auto) 0.06 H Absolute Neuts (auto) 5.5 Absolute Nucleated RBC 0.000 Nucleated RBC % (auto) 0.0 Sodium 142 Potassium 4.4 D Chloride 110 H Carbon Dioxide 21 L Anion Gap 15 BUN 19 H Creatinine 0.84 Estim Creat Clear Calc 70.6 Estimated GFR > 60 POC Glucose 363 H* Random Glucose 405 H* Calcium 9.4 Total Bilirubin 0.4 AST 15 D ALT 25 Alkaline Phosphatase 74 D Total Protein 6.6 Albumin 3.8 Urine Color Urine Appearance Urine pH Ur Specific Garita Urine Protein Urine Glucose (UA) Urine Ketones Urine Blood Urine Nitrite Ur Leukocyte Esterase Urine RBC Urine WBC Ur Squamous Epith Cells Urine Bacteria Urine Yeast 09/27/21 09/27/21 09/27/21 16:07 17:33 18:16 WBC RBC Hgb Hct MCV MCH MCHC RDW Plt Count MPV Immature Gran % (Auto) Neut % (Auto) Lymph % (Auto) [place] % (Auto) Eos % (Auto) Baso % (Auto) Lymph # (Auto) [place] # (Auto) Eos # (Auto) Baso # (Auto) Abs Immat Gran (auto) Absolute Neuts (auto) Absolute Nucleated RBC Nucleated RBC % (auto) Sodium Potassium Chloride Carbon Dioxide Anion Gap BUN Creatinine Estim Creat Clear Calc Estimated GFR POC Glucose 352 H* 283 H Random Glucose Calcium Total Bilirubin AST ALT Alkaline Phosphatase Total Protein Albumin Urine Color YELLOW Urine Appearance CLEAR Urine pH 6.0 Ur Specific Garita 1.015 Urine Protein NEG Urine Glucose (UA) >=1000 H Urine Ketones NEG Urine Blood NEG Urine Nitrite NEG Ur Leukocyte Esterase NEG Urine RBC 0-2 Urine WBC 0-2 Ur Squamous Epith Cells TRACE Urine Bacteria TRACE Urine Yeast TRACE 09/28/21 09:06 WBC RBC Hgb Hct MCV MCH MCHC RDW Plt Count MPV Immature Gran % (Auto) Neut % (Auto) Lymph % (Auto) [place] % (Auto) Eos % (Auto) Baso % (Auto) Lymph # (Auto) [place] # (Auto) Eos # (Auto) Baso # (Auto) Abs Immat Gran (auto) Absolute Neuts (auto) Absolute Nucleated RBC Nucleated RBC % (auto) Sodium Potassium Chloride Carbon Dioxide Anion Gap BUN Creatinine Estim Creat Clear Calc Estimated GFR POC Glucose 142 H Random Glucose Calcium Total Bilirubin AST ALT Alkaline Phosphatase Total Protein Albumin Urine Color Urine Appearance Urine pH Ur Specific Garita Urine Protein Urine Glucose (UA) Urine Ketones Urine Blood Urine Nitrite Ur Leukocyte Esterase Urine RBC Urine WBC Ur Squamous Epith Cells Urine Bacteria Urine Yeast Mental Status Exam Mental Status Exam Narrative: Well developed, overweight female, in NAD. Appears older than stated age. Pleasant upon approach. Patient Appearance: Fatigued, Disheveled and Unkempt Patient Orientation: Person Level of Consciousness: Awake, Disoriented and Alert Patient Behavior: Cooperative and Good Eye Contact Mood Description: Calm and Appropriate Affect Description: Appropriate and Blunted Patient Cognition Impaired: Yes Ability to Follow Directions: Fair Speech Pattern: Coherent Memory Description: Immediate Impaired, Recent Impaired and Working Impaired Delusions: Not Present (none noted) Thought Process: Disoriented and Confusion Thought Content: positive for Disoriented and positive for Poverty of Content Depressive Symptoms: Difficulty Concentrating Judgement: Poor Medications Medications Current Medications Pharmacy Consult (Consult Rx Perform Med Rec) 1 each MISCELLANE ONCE PRN PRN Reason: Consult order Allergies Allergies Allergy/AdvReac Type Severity Reaction Status Date / Time Sulfa Allergy Severe DIFFICULTY Verified 09/27/21 13:12 (Sulfonamide Antibiotics) BREATHING [SULFA (SULFONAMIDE ANTIBIOTICS)] cephalexin [From Allergy Intermediate RASH,HIVES Verified 09/27/21 13:12 KEFLEX] amoxicillin Allergy Unknown DENIES Verified 09/27/21 13:12 [AMOXICILLIN] THIS ALLERGY 03/28/2018 penicillin V Allergy Unknown Unknown Verified 09/27/21 13:12 sumatriptan [From AdvReac Severe HEART Verified 09/27/21 13:12 IMITREX] PALPITATIONS topiramate [From AdvReac Severe AGITATION Verified 09/27/21 13:12 TOPAMAX] Assessment & Plan Assessment & Plan (1) Encounter for assessment of decision-making capacity: Status: Acute Code(s): Z01.89 - Encounter for other specified special examinations Assessment and Plan: Patient presents with limited cognitive abilities, related to dementia. She appears to lack capacity for medical decision making. She was unable to take in information regarding her medical goal condition, unable to process it in a meaningful way, and unable to make appropriate decisions. She scored 10/30 on a MOCA, with marked deficits regarding visual spatial, executive functioning, memory, and language. Also displayed difficulty with delayed recall, and abstraction. Oriented times 1-2 only. Plan 1. Recommend invoke healthcare proxy at this time, due to limited cognitive abilities of patient. immigration manager and covering provider, MARCUS Cee, notified in person while in ED. Thank you for this consultation. If you have any further questions or concerns, please do not hesitate to contact Psychiatry Service. I spent minutes with the patient and/or on the patient floor today, greater than?50% of which was spent counseling/coordinating care.
--- NOTE | 2021-09-28 15:00 | MHC.CM.ED ---
Psych consult completed. HCP invoked. Referral broadcasted within 20 miles of patient's home to all facilities that have dementia units. Continue to monitor for d/c needs.
--- NOTE | 2021-09-28 23:15 | PC.NURSE ---
pt oob with assist to bathroom multiple time to void and have loose stool. Provider is aware.
[2021-09-29] VITALS (7 sets, daily range): BP systolic 99–191; BP diastolic 59–87; PULSE 77–99; RESP 14–94; TEMP 36.8–37; O2SAT 94–97
--- NOTE | 2021-09-29 04:58 | PC.NURSE ---
pt denies any sob or chest pain. pt able to ambulate to the bathroom with assist. no sign of distress. Will continue to monitor.
[2021-09-29 05:19] LABS: Glucose, Whole Blood 243 mg/dL (60-115)
[2021-09-29] MEDS: Insulin Lispro 100 UNIT/ML 3 ML VIAL SUBCUT ×2 (06:13→15:13)
--- NOTE | 2021-09-29 06:15 | PC.NURSE ---
medicated pt with 4units of insulin per nov.
[2021-09-29] MEDS: Atorvastatin Calcium 80 MG TABLET PO (08:40)
[2021-09-29] MEDS: Valsartan 80 MG TABLET PO (08:40)
[2021-09-29] MEDS: Donepezil HCl 5 MG TABLET PO (08:43)
[2021-09-29] MEDS: hydroCHLOROthiazide 12.5 MG TABLET PO (08:43)
[2021-09-29] MEDS: amLODIPine Besylate 5 MG TABLET PO ×2 (08:44→15:45)
[2021-09-29] MEDS: Multivitamin TABLET 1 TAB PO (08:44)
[2021-09-29] MEDS: Aspirin Enteric Coated 81 MG TABLET.DR PO (08:44)
[2021-09-29] MEDS: Mirabegron 25 MG TAB.ER.24H PO (08:44)
[2021-09-29] MEDS: Metoprolol Succinate ER 25 MG TAB.ER.24H PO (08:44)
[2021-09-29 15:09] LABS: Glucose, Whole Blood 331 mg/dL (60-115)
--- NOTE | 2021-09-29 15:24 | MHC.CM.ED ---
Patient remains in ER. Per Iona in financial counseling, family is still gathering necessary paperwork to complete [facility] application. No bed offers made yet. Continue to monitor for d/c needs.
[2021-09-29] MEDS: Ipratropium Bromide Nas 0.03 % 30 ML SPRAY 2 SPRAY NOSTRIL-B (21:21)
[2021-09-29] MEDS: Omeprazole 20 MG CAPSULE.DR PO (21:21)
[2021-09-29] MEDS: QUEtiapine Fumarate 25 MG TABLET PO (21:21)
[2021-09-29] MEDS: Dicyclomine HCl 10 MG CAPSULE 20 MG PO (21:21)
[2021-09-29] MEDS: Insulin Glargine,Hum.rec.anlog 100 UNIT/ML 10 ML VIAL 40 UNIT SUBCUT (21:22)
[2021-09-29 21:29] LABS: Glucose, Whole Blood 367 mg/dL (60-115)
[2021-09-29] MEDS: LORazepam 2 MG/ML VIAL IM (22:21)
[2021-09-30 04:23] VITALS: BP 151/68; PULSE 88; RESP 16; TEMP 36.8; O2SAT 96
--- NOTE | 2021-09-30 06:30 | PC.NURSE ---
pt is sleeping at this time. pt continue to have to be redirected back to bed. pt was re-directed.
[2021-09-30 07:43] LABS: Glucose, Whole Blood 196 mg/dL (60-115)
[2021-09-30 08:00] VITALS: BP 151/66; PULSE 92; RESP 18; TEMP 36.6; O2SAT 97
[2021-09-30] MEDS: Insulin Lispro 100 UNIT/ML 3 ML VIAL SUBCUT ×3 (08:52→18:18)
[2021-09-30] MEDS: hydroCHLOROthiazide 12.5 MG TABLET PO (08:53)
[2021-09-30] MEDS: amLODIPine Besylate 5 MG TABLET PO (08:53)
[2021-09-30] MEDS: Ipratropium Bromide Nas 0.03 % 30 ML SPRAY 2 SPRAY NOSTRIL-B ×2 (08:53→21:57)
[2021-09-30] MEDS: Metoprolol Succinate ER 25 MG TAB.ER.24H PO (08:53)
[2021-09-30] MEDS: Donepezil HCl 5 MG TABLET PO (08:53)
[2021-09-30] MEDS: Atorvastatin Calcium 80 MG TABLET PO (08:53)
[2021-09-30] MEDS: Multivitamin TABLET 1 TAB PO (08:53)
[2021-09-30] MEDS: Aspirin Enteric Coated 81 MG TABLET.DR PO (08:53)
[2021-09-30] MEDS: Valsartan 80 MG TABLET PO (08:54)
[2021-09-30] MEDS: Mirabegron 25 MG TAB.ER.24H PO (08:54)
--- NOTE | 2021-09-30 10:04 | MHC.CM.ED ---
Patient remains in ER. As on 09/29, Iona from Financial Counseling was waiting for the necessary paperwork to complete patient's [employer] application. No bed offers have been made yet. Continue to monitor for d/c needs.
[2021-09-30 12:56] VITALS: BP 156/85; PULSE 94; RESP 18
[2021-09-30 13:00] LABS: Glucose, Whole Blood 200 mg/dL (60-115)
[2021-09-30 18:02] VITALS: BP 91/59; PULSE 64; RESP 20; TEMP 36.4; O2SAT 97
[2021-09-30 18:04] LABS: Glucose, Whole Blood 308 mg/dL (60-115)
[2021-09-30 21:02] VITALS: BP 93/58; PULSE 96; RESP 20; TEMP 36.8; O2SAT 96
[2021-09-30] MEDS: Insulin Glargine,Hum.rec.anlog 100 UNIT/ML 10 ML VIAL 40 UNIT SUBCUT (21:57)
[2021-09-30] MEDS: Omeprazole 20 MG CAPSULE.DR PO (21:58)
[2021-09-30] MEDS: QUEtiapine Fumarate 25 MG TABLET PO (21:58)
[2021-09-30 21:59] LABS: Glucose, Whole Blood 262 mg/dL (60-115)
--- NOTE | 2021-09-30 22:37 | PC.NURSE ---
VTR camera placed on pt for safety
[2021-10-01] MEDS: LORazepam 2 MG/ML VIAL IM (01:23)
--- NOTE | 2021-10-01 01:23 | PC.NURSE ---
pt was sleeping for a brief time, she woke up, attempted to exit the emergency department. staff intervened and pt was punching and kicking at staff as well as pinching staff. Dr. Lory pierceted for medications. IM Ativan ordered and administered per NOV, security present for a brief hold to administer medication safely for pt and staff.
[2021-10-01 02:53] VITALS: RESP 16
--- NOTE | 2021-10-01 03:15 | PC.NURSE ---
Pt climbed over rails and wanting to get up and make mac and cheese. Pt assisted to sitting position on stretcher. Asked pt if she would like a recliner, pt declined. Pt states I'm not going to sit down on the bed. I have to get up and make mac and cheese. Pt started walking towards the cisneros. Pt encouraged to stay in room. Pt re-oriented to place and situation. Pt states I don't care. I have to go and make mac and cheese. This nurse, information technology coordinator and security at bedside. This nurse made MD aware. When this nurse went to get the meds, security and information technology coordinator able to convince patient to lay back down on stretcher Pt laying on stretcher, watching TV. Held the meds.
--- NOTE | 2021-10-01 04:06 | PC.NURSE ---
Pt resting on stretcher with eyes closed Breathing even and unlabored Will continue to monitor
[2021-10-01 07:28] LABS: Glucose, Whole Blood 210 mg/dL (60-115)
[2021-10-01] MEDS: Insulin Lispro 100 UNIT/ML 3 ML VIAL SUBCUT ×3 (07:31→18:02)
[2021-10-01 07:57] VITALS: BP 144/72; PULSE 93; RESP 16; O2SAT 97
[2021-10-01] MEDS: hydroCHLOROthiazide 12.5 MG TABLET PO (08:16)
[2021-10-01] MEDS: Donepezil HCl 5 MG TABLET PO (08:16)
[2021-10-01] MEDS: Atorvastatin Calcium 80 MG TABLET PO (08:16)
[2021-10-01] MEDS: Aspirin Enteric Coated 81 MG TABLET.DR PO (08:16)
[2021-10-01] MEDS: Metoprolol Succinate ER 25 MG TAB.ER.24H PO (08:16)
[2021-10-01] MEDS: amLODIPine Besylate 5 MG TABLET PO (08:16)
[2021-10-01] MEDS: Mirabegron 25 MG TAB.ER.24H PO (08:16)
[2021-10-01] MEDS: Multivitamin TABLET 1 TAB PO (08:16)
[2021-10-01] MEDS: Ipratropium Bromide Nas 0.03 % 30 ML SPRAY 2 SPRAY NOSTRIL-B (08:17)
[2021-10-01] MEDS: Valsartan 80 MG TABLET PO (08:19)
--- NOTE | 2021-10-01 10:11 | PC.NURSE ---
Pt assisted into bedside recliner, ambulates to bedside commode with minimal assist. States chronic neck pain
[2021-10-01] MEDS: Baclofen 10 MG TABLET PO (11:27)
[2021-10-01 13:11] LABS: Glucose, Whole Blood 159 mg/dL (60-115)
[2021-10-01 17:46] LABS: Glucose, Whole Blood 224 mg/dL (60-115)
[2021-10-01 18:06] VITALS: BP 95/53; PULSE 83; RESP 16; O2SAT 97
--- NOTE | 2021-10-01 21:47 | PC.NURSE ---
pt up and ambulates to the restroom with steady even gait.
[2021-10-01 22:00] VITALS: BP 95/53; PULSE 82; RESP 16; O2SAT 97
[2021-10-01 22:45] LABS: Glucose, Whole Blood 236 mg/dL (60-115)
[2021-10-01] MEDS: Omeprazole 20 MG CAPSULE.DR PO (22:51)
[2021-10-01] MEDS: QUEtiapine Fumarate 25 MG TABLET PO (22:52)
[2021-10-01] MEDS: Insulin Glargine,Hum.rec.anlog 100 UNIT/ML 10 ML VIAL 40 UNIT SUBCUT (22:52)
--- NOTE | 2021-10-01 22:56 | PC.NURSE ---
medicated per provider order. POC obtained.
--- NOTE | 2021-10-02 02:30 | PC.NURSE ---
pt up to restroom with steady even gait. pt denies complaints and return to stretcher w/o difficulty. will continue to monitor pt.
[2021-10-02 06:00] VITALS: BP 98/53; PULSE 89; RESP 16; O2SAT 97
--- NOTE | 2021-10-02 06:02 | PC.NURSE ---
pt remains very calm and cooperative. Pt up and ambulates to restroom w/o difficulty and returns to room and back to bed. pt denies complaints. pt eating a turkey sandwich. will continue to monitor pt.
[2021-10-02 07:20] LABS: Glucose, Whole Blood 288 mg/dL (60-115)
[2021-10-02] MEDS: Donepezil HCl 5 MG TABLET PO (08:15)
[2021-10-02] MEDS: hydroCHLOROthiazide 12.5 MG TABLET PO (08:15)
[2021-10-02] MEDS: Mirabegron 25 MG TAB.ER.24H PO (08:15)
[2021-10-02] MEDS: Valsartan 80 MG TABLET PO (08:15)
[2021-10-02] MEDS: Aspirin Enteric Coated 81 MG TABLET.DR PO (08:16)
[2021-10-02] MEDS: Metoprolol Succinate ER 25 MG TAB.ER.24H PO (08:16)
[2021-10-02] MEDS: Ipratropium Bromide Nas 0.03 % 30 ML SPRAY 2 SPRAY NOSTRIL-B ×2 (08:16→21:40)
[2021-10-02] MEDS: Atorvastatin Calcium 80 MG TABLET PO (08:16)
[2021-10-02] MEDS: Multivitamin TABLET 1 TAB PO (08:16)
[2021-10-02] MEDS: Insulin Lispro 100 UNIT/ML 3 ML VIAL SUBCUT ×3 (08:17→17:11)
[2021-10-02 08:21] VITALS: BP 118/52; PULSE 91; RESP 16; O2SAT 96
--- NOTE | 2021-10-02 08:22 | PC.NURSE ---
Pt alert, transitioned into hospital bed. Accepted AM meds/insulin and eating breakfast at this time
[2021-10-02] MEDS: amLODIPine Besylate 5 MG TABLET PO (08:23)
--- NOTE | 2021-10-02 11:54 | MHC.CM.PN ---
Pt is holding in the ED pending [facility] application completion. STR referrals have been made without acceptance at this time. Once application has been completed and submitted, pt should have a better chance for LTC acceptance. Pt has an activated HCP - pt and ED care team aware of plan.
[2021-10-02 12:38] LABS: Glucose, Whole Blood 204 mg/dL (60-115)
[2021-10-02 17:05] LABS: Glucose, Whole Blood 266 mg/dL (60-115)
[2021-10-02] MEDS: QUEtiapine Fumarate 25 MG TABLET PO (21:39)
[2021-10-02] MEDS: Omeprazole 20 MG CAPSULE.DR PO (21:39)
[2021-10-02] MEDS: Insulin Glargine,Hum.rec.anlog 100 UNIT/ML 10 ML VIAL 40 UNIT SUBCUT (21:39)
[2021-10-02] MEDS: Baclofen 10 MG TABLET PO (21:44)
[2021-10-03 00:51] VITALS: BP 118/46; PULSE 89; RESP 12; TEMP 37.1; O2SAT 94
[2021-10-03 02:44] VITALS: BP 120/51; PULSE 88; RESP 12; TEMP 37.1; O2SAT 96
[2021-10-03 04:40] VITALS: BP 127/60; PULSE 87; RESP 12; TEMP 36.9; O2SAT 95
[2021-10-03 06:03] VITALS: BP 102/55; PULSE 90; RESP 12; TEMP 36.8; O2SAT 92
[2021-10-03 07:22] LABS: Glucose, Whole Blood 200 mg/dL (60-115)
[2021-10-03] MEDS: hydroCHLOROthiazide 12.5 MG TABLET PO (08:07)
[2021-10-03] MEDS: Metoprolol Succinate ER 25 MG TAB.ER.24H PO (08:07)
[2021-10-03] MEDS: Atorvastatin Calcium 80 MG TABLET PO (08:07)
[2021-10-03] MEDS: amLODIPine Besylate 5 MG TABLET PO (08:07)
[2021-10-03] MEDS: Multivitamin TABLET 1 TAB PO (08:08)
[2021-10-03] MEDS: Valsartan 80 MG TABLET PO (08:08)
[2021-10-03] MEDS: Mirabegron 25 MG TAB.ER.24H PO (08:08)
[2021-10-03] MEDS: Donepezil HCl 5 MG TABLET PO (08:08)
[2021-10-03] MEDS: Aspirin Enteric Coated 81 MG TABLET.DR PO (08:08)
[2021-10-03] MEDS: Ipratropium Bromide Nas 0.03 % 30 ML SPRAY 2 SPRAY NOSTRIL-B ×2 (08:09→21:29)
[2021-10-03] MEDS: Insulin Lispro 100 UNIT/ML 3 ML VIAL SUBCUT ×2 (08:09→14:01)
--- NOTE | 2021-10-03 11:09 | MHC.CM.ED ---
Patient remains in ER. Per Iona in financial counseling office, necessary documents haven't been provided by family yet to complete [employer] application. Renetta Lane, [employer] aware. Continue to monitor for d/c needs.
[2021-10-03 12:45] VITALS: BP 117/56; PULSE 85; RESP 14; O2SAT 95
[2021-10-03 13:38] LABS: Glucose, Whole Blood 225 mg/dL (60-115)
[2021-10-03 18:18] LABS: Glucose, Whole Blood 218 mg/dL (60-115)
[2021-10-03] MEDS: QUEtiapine Fumarate 25 MG TABLET PO (21:23)
[2021-10-03] MEDS: Insulin Glargine,Hum.rec.anlog 100 UNIT/ML 10 ML VIAL 40 UNIT SUBCUT (21:24)
[2021-10-03] MEDS: Acetaminophen 325 MG TABLET 650 MG PO (21:24)
[2021-10-03] MEDS: Omeprazole 20 MG CAPSULE.DR PO (21:24)
[2021-10-03] MEDS: Baclofen 10 MG TABLET PO (21:27)
[2021-10-03 22:19] VITALS: BP 94/54; PULSE 80; RESP 16; TEMP 36.9; O2SAT 96
--- NOTE | 2021-10-04 03:37 | PC.NURSE ---
I assumed care of this pt at 1900. Since that time she has been alert, calm and cooperative, occasionally ambulating to and from the bathroom independently and with steady gait. She has no complaints. Natalia is taking PO fluids without difficulty, taking PO meds without difficulty. no chest pain. Respirations non-labored, speaking in full sentences, no cyanosis.
[2021-10-04 07:17] LABS: Glucose, Whole Blood 150 mg/dL (60-115)
[2021-10-04 07:53] VITALS: RESP 18
[2021-10-04 08:55] VITALS: BP 115/58; PULSE 86; RESP 18; TEMP 36.9; O2SAT 94
[2021-10-04] MEDS: Donepezil HCl 5 MG TABLET PO (09:05)
[2021-10-04] MEDS: Atorvastatin Calcium 80 MG TABLET PO (09:05)
[2021-10-04] MEDS: Aspirin Enteric Coated 81 MG TABLET.DR PO (09:05)
[2021-10-04] MEDS: amLODIPine Besylate 5 MG TABLET PO (09:05)
[2021-10-04] MEDS: Metoprolol Succinate ER 25 MG TAB.ER.24H PO (09:06)
[2021-10-04] MEDS: hydroCHLOROthiazide 12.5 MG TABLET PO (09:06)
[2021-10-04] MEDS: Multivitamin TABLET 1 TAB PO (09:07)
[2021-10-04] MEDS: Mirabegron 25 MG TAB.ER.24H PO (09:07)
[2021-10-04] MEDS: Valsartan 80 MG TABLET PO (09:07)
[2021-10-04] MEDS: Ipratropium Bromide Nas 0.03 % 30 ML SPRAY 2 SPRAY NOSTRIL-B ×2 (09:32→22:23)
[2021-10-04 12:46] LABS: Glucose, Whole Blood 184 mg/dL (60-115)
[2021-10-04 14:10] VITALS: BP 101/48; PULSE 84; RESP 14; O2SAT 98
[2021-10-04] MEDS: Insulin Lispro 100 UNIT/ML 3 ML VIAL SUBCUT ×2 (14:23→19:58)
[2021-10-04] MEDS: Acetaminophen 325 MG TABLET 650 MG PO (16:18)
[2021-10-04] MEDS: Baclofen 10 MG TABLET PO (16:19)
[2021-10-04 19:53] LABS: Glucose, Whole Blood 244 mg/dL (60-115)
[2021-10-04 22:21] VITALS: BP 91/48; PULSE 76; RESP 16; TEMP 36.8; O2SAT 98
[2021-10-04] MEDS: Omeprazole 20 MG CAPSULE.DR PO (22:22)
[2021-10-04] MEDS: QUEtiapine Fumarate 25 MG TABLET PO (22:22)
[2021-10-04] MEDS: Insulin Glargine,Hum.rec.anlog 100 UNIT/ML 10 ML VIAL 40 UNIT SUBCUT (22:22)
[2021-10-04 22:27] LABS: Glucose, Whole Blood 231 mg/dL (60-115)
[2021-10-05 00:40] VITALS: BP 95/43; PULSE 78; RESP 16; TEMP 37; O2SAT 95
[2021-10-05 07:12] VITALS: BP 117/67; PULSE 80; RESP 16; TEMP 36.9; O2SAT 96
[2021-10-05 07:17] LABS: Glucose, Whole Blood 159 mg/dL (60-115)
[2021-10-05] MEDS: Insulin Lispro 100 UNIT/ML 3 ML VIAL SUBCUT ×3 (08:12→17:52)
[2021-10-05] MEDS: hydroCHLOROthiazide 12.5 MG TABLET PO (08:13)
[2021-10-05] MEDS: Multivitamin TABLET 1 TAB PO (08:13)
[2021-10-05] MEDS: Atorvastatin Calcium 80 MG TABLET PO (08:13)
[2021-10-05] MEDS: Aspirin Enteric Coated 81 MG TABLET.DR PO (08:13)
[2021-10-05] MEDS: Valsartan 80 MG TABLET PO (08:13)
[2021-10-05] MEDS: amLODIPine Besylate 5 MG TABLET PO (08:13)
[2021-10-05] MEDS: Metoprolol Succinate ER 25 MG TAB.ER.24H PO (08:14)
[2021-10-05] MEDS: Ipratropium Bromide Nas 0.03 % 30 ML SPRAY 2 SPRAY NOSTRIL-B ×2 (08:24→21:49)
[2021-10-05] MEDS: Donepezil HCl 5 MG TABLET PO (08:24)
[2021-10-05] MEDS: Mirabegron 25 MG TAB.ER.24H PO (08:24)
--- NOTE | 2021-10-05 11:13 | PC.NURSE ---
PT/CASEMANAGEMENT. PT IS COOPERATIVE, AMB WITH STEADY GAIT TO BR TOLERATING PO WAITING FOR PLACEMENT
[2021-10-05 12:53] LABS: Glucose, Whole Blood 188 mg/dL (60-115)
--- NOTE | 2021-10-05 13:02 | MHC.CM.ED ---
Patient remains in ER. Per Iona, financial counselor, she will ask patient's sister to bring whatever paperwork she has already collected so [employer] can be started. No bed offers have been made at this time. Do not anticiapte a bed to be offered without a copy of the [employer] Application and supporting financial documents. Continue to monitor for d/c needs.
[2021-10-05 14:16] VITALS: BP 124/58; PULSE 76; RESP 16; TEMP 36.9; O2SAT 96
[2021-10-05 16:10] VITALS: BP 99/45; PULSE 78; RESP 16; TEMP 36.8; O2SAT 96
[2021-10-05] MEDS: Baclofen 10 MG TABLET PO (16:15)
[2021-10-05] MEDS: Acetaminophen 325 MG TABLET 650 MG PO (16:15)
[2021-10-05 17:50] LABS: Glucose, Whole Blood 253 mg/dL (60-115)
--- NOTE | 2021-10-05 18:48 | PC.NURSE ---
PATIENT ATE 100 % of meals ,patient watching television .
[2021-10-05 21:21] VITALS: BP 118/56; PULSE 75; RESP 16; TEMP 36.9; O2SAT 96
[2021-10-05 21:41] LABS: Glucose, Whole Blood 184 mg/dL (60-115)
[2021-10-05] MEDS: Insulin Glargine,Hum.rec.anlog 100 UNIT/ML 10 ML VIAL 40 UNIT SUBCUT (21:48)
[2021-10-05] MEDS: Omeprazole 20 MG CAPSULE.DR PO (21:48)
[2021-10-05] MEDS: QUEtiapine Fumarate 25 MG TABLET PO (21:48)
--- NOTE | 2021-10-06 03:24 | PC.NURSE ---
Assumed care of pt Pt resting on stretcher with eyes closed Breathing even and unlabored NAD Will continue to monitor
[2021-10-06 07:10] LABS: Glucose, Whole Blood 201 mg/dL (60-115)
[2021-10-06 07:15] VITALS: BP 100/64; PULSE 95; RESP 18; TEMP 37.1; O2SAT 95
[2021-10-06] MEDS: Atorvastatin Calcium 80 MG TABLET PO (07:19)
[2021-10-06] MEDS: Donepezil HCl 5 MG TABLET PO (07:20)
[2021-10-06] MEDS: Multivitamin TABLET 1 TAB PO (07:20)
[2021-10-06] MEDS: Aspirin Enteric Coated 81 MG TABLET.DR PO (07:21)
[2021-10-06] MEDS: Insulin Lispro 100 UNIT/ML 3 ML VIAL SUBCUT ×2 (07:22→18:07)
--- NOTE | 2021-10-06 08:08 | PC.NURSE ---
Care assumed. Pt ambulates with a steady gait to bathroom. Medicated with morning meds. Pt in behavioral control. Pt orientated to call sandra. Set up with breakfast. No complaints at this time
[2021-10-06] MEDS: Mirabegron 25 MG TAB.ER.24H PO (08:17)
[2021-10-06] MEDS: Ipratropium Bromide Nas 0.03 % 30 ML SPRAY 2 SPRAY NOSTRIL-B ×2 (08:20→22:18)
[2021-10-06 11:57] LABS: Glucose, Whole Blood 129 mg/dL (60-115)
--- NOTE | 2021-10-06 13:23 | PC.NURSE ---
Report given to Shamika going to EDO[facility], no questions.
[2021-10-06 13:40] VITALS: BP 92/38; PULSE 93; RESP 18; TEMP 36.6; O2SAT 95
--- NOTE | 2021-10-06 13:41 | PC.NURSE ---
Pt received from main ER: Pt AOx3 and offers some complaints to neck. Heart sounds normal and lungs diminished. Pt abd round, soft and non-tender. Pt self ambulatory to BR. Pending financial counseling from [place] for bed search
--- NOTE | 2021-10-06 15:36 | MHC.CM.ED ---
Patient remains in ER. [employer] julita and financials still not provided by financial counselor. No bed offers will be able to be made until these documents are obtained. Renetta Lane CM financial center manager aware. Continue to monitor for d/c needs.
[2021-10-06 18:00] LABS: Glucose, Whole Blood 196 mg/dL (60-115)
[2021-10-06 20:00] VITALS: BP 129/70; PULSE 86; RESP 14; TEMP 36.7; O2SAT 97
[2021-10-06 22:08] LABS: Glucose, Whole Blood 240 mg/dL (60-115)
[2021-10-06] MEDS: Insulin Glargine,Hum.rec.anlog 100 UNIT/ML 10 ML VIAL 40 UNIT SUBCUT (22:13)
[2021-10-06] MEDS: Omeprazole 20 MG CAPSULE.DR PO (22:13)
[2021-10-06] MEDS: QUEtiapine Fumarate 25 MG TABLET PO (22:13)
[2021-10-06] MEDS: Baclofen 10 MG TABLET PO (22:16)
--- NOTE | 2021-10-07 05:44 | PC.NURSE ---
This nurse took over patient's care at 1900, Patient alert and oriented x2, offers no complaints at this time. Ambulated to bathroom with steady gait, standby assist. Bedtime medications administered without any issues. L/s clear, abd soft, vss. Call sandra within reach, warm blanket given to patient.
[2021-10-07 07:26] LABS: Glucose, Whole Blood 144 mg/dL (60-115)
[2021-10-07 07:42] VITALS: BP 141/78; PULSE 91; RESP 16; TEMP 36.8; O2SAT 95
[2021-10-07] MEDS: Ipratropium Bromide Nas 0.03 % 30 ML SPRAY 2 SPRAY NOSTRIL-B ×2 (08:27→21:19)
[2021-10-07] MEDS: Aspirin Enteric Coated 81 MG TABLET.DR PO (08:28)
[2021-10-07] MEDS: Mirabegron 25 MG TAB.ER.24H PO (08:28)
[2021-10-07] MEDS: amLODIPine Besylate 5 MG TABLET PO (08:28)
[2021-10-07] MEDS: Metoprolol Succinate ER 25 MG TAB.ER.24H PO (08:28)
[2021-10-07] MEDS: Multivitamin TABLET 1 TAB PO (08:28)
[2021-10-07] MEDS: Valsartan 80 MG TABLET PO (08:28)
[2021-10-07] MEDS: Donepezil HCl 5 MG TABLET PO (08:28)
[2021-10-07] MEDS: hydroCHLOROthiazide 12.5 MG TABLET PO (08:28)
[2021-10-07] MEDS: Atorvastatin Calcium 80 MG TABLET PO (08:28)
[2021-10-07 12:38] LABS: Glucose, Whole Blood 190 mg/dL (60-115)
[2021-10-07] MEDS: Insulin Lispro 100 UNIT/ML 3 ML VIAL SUBCUT ×2 (13:05→17:42)
--- NOTE | 2021-10-07 15:40 | MHC.CM.PN ---
CM MET WITH PT PER HER REQUEST. PT ASKING WHY SHE IS STILL HERE. PT REPORTS SHE WALKS FINE AND WAS JUST CONFUSED BECAUSE SHE HAD A UTI THAT WOULD NOT GO AWAY PT REPORTING SHE WANTS TO GO HOME AND FEELS SHE WOULD BE SAFE THERE. PER RECORDS, PT IS AWAITING MH FOR LTC PLACEMENT
[2021-10-07 16:43] LABS: Glucose, Whole Blood 225 mg/dL (60-115)
--- NOTE | 2021-10-07 17:50 | PC.NURSE ---
Pt continues to be alert/oriented, ambulatory to bathroom when needed. Speaking to Ant at this time who she has been inquiring about. Requested and spoke to case management for update on status placement. Pt frequently talks about going home, reassured.
[2021-10-07 18:39] VITALS: BP 112/75; PULSE 92; RESP 15; TEMP 36.8; O2SAT 95
[2021-10-07 20:11] VITALS: BP 124/78; PULSE 92; RESP 16; TEMP 36.4; O2SAT 94
[2021-10-07 20:55] LABS: Glucose, Whole Blood 205 mg/dL (60-115)
[2021-10-07] MEDS: Baclofen 10 MG TABLET PO (21:15)
[2021-10-07] MEDS: Insulin Glargine,Hum.rec.anlog 100 UNIT/ML 10 ML VIAL 40 UNIT SUBCUT (21:15)
[2021-10-07] MEDS: Omeprazole 20 MG CAPSULE.DR PO (21:15)
[2021-10-07] MEDS: QUEtiapine Fumarate 25 MG TABLET PO (21:15)
[2021-10-08 01:56] VITALS: BP 107/63; PULSE 84; RESP 18; TEMP 36.3; O2SAT 94
[2021-10-08 06:15] LABS: Glucose, Whole Blood 122 mg/dL (60-115)
[2021-10-08 06:30] VITALS: BP 136/79; PULSE 82; RESP 16; TEMP 36.6; O2SAT 94
[2021-10-08] MEDS: Mirabegron 25 MG TAB.ER.24H PO (09:52)
[2021-10-08] MEDS: hydroCHLOROthiazide 12.5 MG TABLET PO (09:52)
[2021-10-08] MEDS: Aspirin Enteric Coated 81 MG TABLET.DR PO (09:52)
[2021-10-08] MEDS: Metoprolol Succinate ER 25 MG TAB.ER.24H PO (09:52)
[2021-10-08] MEDS: Multivitamin TABLET 1 TAB PO (09:53)
[2021-10-08] MEDS: amLODIPine Besylate 5 MG TABLET PO (09:53)
[2021-10-08] MEDS: Atorvastatin Calcium 80 MG TABLET PO (09:53)
[2021-10-08] MEDS: Valsartan 80 MG TABLET PO (10:38)
[2021-10-08] MEDS: Donepezil HCl 5 MG TABLET PO (10:38)
[2021-10-08] MEDS: Ipratropium Bromide Nas 0.03 % 30 ML SPRAY 2 SPRAY NOSTRIL-B ×2 (10:38→20:35)
--- NOTE | 2021-10-08 11:45 | PC.NURSE ---
Pt A&Ox3, pain 7/10 to neck/shoulder area. Pt ambulates independently, calm and cooperative at this time. Awaiting dispo at this time, medicated as per MAR orders. Call snadra within place, will continue to monitor.
[2021-10-08 11:55] LABS: Glucose, Whole Blood 143 mg/dL (60-115)
--- NOTE | 2021-10-08 14:36 | MHC.CM.ED ---
Patient remains in ER. Copy of [employer] julita and supporting financials have not been provided by financial counselors yet. Continue to monitor for d/c needs.
[2021-10-08 18:18] LABS: Glucose, Whole Blood 154 mg/dL (60-115)
[2021-10-08 19:12] VITALS: BP 106/64; PULSE 76; RESP 16; TEMP 36.8; O2SAT 96
--- NOTE | 2021-10-08 19:47 | PC.NURSE ---
Assumed care of pt at 1900. Pt resting in bed, in NAD, respirations even and non-labored. Denies needs. Plan remains placement per case management
[2021-10-08] MEDS: Omeprazole 20 MG CAPSULE.DR PO (20:33)
[2021-10-08] MEDS: Baclofen 10 MG TABLET PO (20:33)
[2021-10-08] MEDS: QUEtiapine Fumarate 25 MG TABLET PO (20:33)
[2021-10-08] MEDS: Insulin Glargine,Hum.rec.anlog 100 UNIT/ML 10 ML VIAL 40 UNIT SUBCUT (20:33)
[2021-10-08 21:32] LABS: Glucose, Whole Blood 162 mg/dL (60-115)
[2021-10-09 06:24] VITALS: BP 109/72; PULSE 86; RESP 16; O2SAT 96
[2021-10-09 07:32] LABS: Glucose, Whole Blood 129 mg/dL (60-115)
--- NOTE | 2021-10-09 08:15 | PC.NURSE ---
POC 129
[2021-10-09] MEDS: Atorvastatin Calcium 80 MG TABLET PO (08:52)
[2021-10-09] MEDS: hydroCHLOROthiazide 12.5 MG TABLET PO (08:52)
[2021-10-09] MEDS: Multivitamin TABLET 1 TAB PO (08:52)
[2021-10-09] MEDS: Mirabegron 25 MG TAB.ER.24H PO (08:52)
[2021-10-09] MEDS: amLODIPine Besylate 5 MG TABLET PO (08:52)
[2021-10-09] MEDS: Aspirin Enteric Coated 81 MG TABLET.DR PO (08:52)
[2021-10-09] MEDS: Donepezil HCl 5 MG TABLET PO (08:52)
[2021-10-09] MEDS: Metoprolol Succinate ER 25 MG TAB.ER.24H PO (08:53)
[2021-10-09] MEDS: Ipratropium Bromide Nas 0.03 % 30 ML SPRAY 2 SPRAY NOSTRIL-B ×2 (09:58→21:29)
[2021-10-09] MEDS: Valsartan 80 MG TABLET PO (11:34)
[2021-10-09 11:39] VITALS: BP 109/52; PULSE 81; RESP 16; O2SAT 93
[2021-10-09 12:05] LABS: Glucose, Whole Blood 127 mg/dL (60-115)
[2021-10-09 17:15] VITALS: BP 123/63; PULSE 88; RESP 18; TEMP 36.7; O2SAT 95
[2021-10-09 17:38] LABS: Glucose, Whole Blood 165 mg/dL (60-115)
[2021-10-09] MEDS: Insulin Lispro 100 UNIT/ML 3 ML VIAL SUBCUT (17:54)
--- NOTE | 2021-10-09 19:30 | PC.NURSE ---
Assumed care of pt Pt resting on stretcher, watching TV Calm and cooperating NAD Awaiting financial documents for pt's [facility] [employer] insurance Will continue to monitor
[2021-10-09] MEDS: Omeprazole 20 MG CAPSULE.DR PO (21:27)
[2021-10-09] MEDS: QUEtiapine Fumarate 25 MG TABLET PO (21:28)
[2021-10-09] MEDS: Insulin Glargine,Hum.rec.anlog 100 UNIT/ML 10 ML VIAL 40 UNIT SUBCUT (21:33)
[2021-10-09 21:42] LABS: Glucose, Whole Blood 199 mg/dL (60-115)
[2021-10-09 22:46] VITALS: BP 106/56; PULSE 83; RESP 18; O2SAT 96
[2021-10-10 07:49] LABS: Glucose, Whole Blood 209 mg/dL (60-115)
[2021-10-10 08:33] VITALS: BP 108/66; PULSE 81; RESP 14; TEMP 36.7; O2SAT 95
[2021-10-10] MEDS: Aspirin Enteric Coated 81 MG TABLET.DR PO (09:27)
[2021-10-10] MEDS: amLODIPine Besylate 5 MG TABLET PO (09:27)
[2021-10-10] MEDS: Metoprolol Succinate ER 25 MG TAB.ER.24H PO (09:27)
[2021-10-10] MEDS: Atorvastatin Calcium 80 MG TABLET PO (09:27)
[2021-10-10] MEDS: Multivitamin TABLET 1 TAB PO (09:27)
[2021-10-10] MEDS: hydroCHLOROthiazide 12.5 MG TABLET PO (09:27)
[2021-10-10] MEDS: Mirabegron 25 MG TAB.ER.24H PO (09:27)
[2021-10-10] MEDS: Valsartan 80 MG TABLET PO (09:28)
[2021-10-10] MEDS: Insulin Lispro 100 UNIT/ML 3 ML VIAL SUBCUT (09:28)
[2021-10-10] MEDS: Donepezil HCl 5 MG TABLET PO (09:28)
[2021-10-10 09:29] VITALS: BP 113/68; PULSE 80; RESP 16; O2SAT 98
--- NOTE | 2021-10-10 11:07 | PC.NURSE ---
Pt is A&Ox2, not sure of date. Ambulatory with no assistance. Calm and cooperative this morning, offers no complaints. Medicated as per [facility] orders this morning. Awaiting LTC faciliy at this time. Will continue to monitor.
[2021-10-10] MEDS: Ipratropium Bromide Nas 0.03 % 30 ML SPRAY 2 SPRAY NOSTRIL-B ×2 (11:12→21:35)
--- NOTE | 2021-10-10 11:27 | MHC.CM.ED ---
Per Email correspondance with Iona Sher From [facility]: she is waiting for additional statements to complete pt's [employer] application. Pt may need to privately pay for a time and/or the spouse needs to spend down in order to qualify. SNF referrals updated with this info to inquire on the ability to accept pt with a pending julita and short term private pay. Will await response
[2021-10-10 13:11] LABS: Glucose, Whole Blood 115 mg/dL (60-115)
[2021-10-10 16:00] VITALS: BP 134/64; PULSE 80; RESP 16; TEMP 36.8; O2SAT 98
[2021-10-10 16:16] LABS: Glucose, Whole Blood 188 mg/dL (60-115)
--- NOTE | 2021-10-10 20:19 | PC.NURSE ---
PATIENT ATE 100 % OF DINNER .
[2021-10-10 20:38] LABS: Glucose, Whole Blood 193 mg/dL (60-115)
[2021-10-10] MEDS: Insulin Glargine,Hum.rec.anlog 100 UNIT/ML 10 ML VIAL 40 UNIT SUBCUT (20:56)
[2021-10-10] MEDS: Omeprazole 20 MG CAPSULE.DR PO (20:56)
[2021-10-10] MEDS: QUEtiapine Fumarate 25 MG TABLET PO (20:56)
[2021-10-10] MEDS: Baclofen 10 MG TABLET PO (20:59)
--- NOTE | 2021-10-10 21:36 | PC.NURSE ---
pt up and ambulates to restroom w/o difficulty. pt medicated as per emar. pt awaiting for case mgt in am. will continue to monitor pt.
--- NOTE | 2021-10-11 06:47 | PC.NURSE ---
This RN took over patient's care at 2300. Patient is alert and oriented x2, offers no complaints at this time. L/s clear, abd soft, ambulated to bathroom with steady gait. Call sandra within reach, warm blanket given, lights dimmed.
--- NOTE | 2021-10-11 07:41 | PC.NURSE ---
Pt received from power and recovery shift engineer: Pt AOX4 and offers no complaints. Pt able to self ambulate to BR with no assist. Heart sounds normal and lungs clear. Pt abd soft and non-tender. Pt case management case- pending financial counseling from [employer] for bed search.
[2021-10-11] MEDS: Ipratropium Bromide Nas 0.03 % 30 ML SPRAY 2 SPRAY NOSTRIL-B ×2 (09:43→21:10)
[2021-10-11] MEDS: Mirabegron 25 MG TAB.ER.24H PO (09:44)
[2021-10-11] MEDS: hydroCHLOROthiazide 12.5 MG TABLET PO (09:44)
[2021-10-11] MEDS: Metoprolol Succinate ER 25 MG TAB.ER.24H PO (09:44)
[2021-10-11] MEDS: Multivitamin TABLET 1 TAB PO (09:44)
[2021-10-11] MEDS: Atorvastatin Calcium 80 MG TABLET PO (09:44)
[2021-10-11] MEDS: amLODIPine Besylate 5 MG TABLET PO (09:44)
[2021-10-11] MEDS: Aspirin Enteric Coated 81 MG TABLET.DR PO (09:44)
[2021-10-11 09:47] VITALS: BP 140/76; PULSE 86; RESP 16; O2SAT 96
[2021-10-11] MEDS: Valsartan 80 MG TABLET PO (10:03)
[2021-10-11] MEDS: Donepezil HCl 5 MG TABLET PO (10:03)
[2021-10-11] MEDS: Insulin Lispro 100 UNIT/ML 3 ML VIAL SUBCUT ×2 (13:24→18:05)
[2021-10-11 13:26] LABS: Glucose, Whole Blood 196 mg/dL (60-115)
--- NOTE | 2021-10-11 13:28 | MHC.CM.ED ---
Patient remains in ER overflow. Received notification that patient's application is not yet completed. However, patient may have to spend down before [employer] julita would be approved. Referral re-sent in [facility] with this information. As of right now, [facility] is the only facility that has responded that $450/day with 30 days upfront would have to be provided. That would be $13,500. Attempted to speak to patient's , Jairo, via telephone at [phone]. Left message requesting return telephone call. Continue to monitor for d/c needs.
[2021-10-11 18:04] LABS: Glucose, Whole Blood 244 mg/dL (60-115)
[2021-10-11 20:33] LABS: Glucose, Whole Blood 232 mg/dL (60-115)
[2021-10-11 20:53] VITALS: BP 157/62; PULSE 86; RESP 16; TEMP 36.6; O2SAT 94
[2021-10-11] MEDS: QUEtiapine Fumarate 25 MG TABLET PO (21:10)
[2021-10-11] MEDS: Insulin Glargine,Hum.rec.anlog 100 UNIT/ML 10 ML VIAL 40 UNIT SUBCUT (21:10)
[2021-10-11] MEDS: Omeprazole 20 MG CAPSULE.DR PO (21:10)
[2021-10-11] MEDS: Baclofen 10 MG TABLET PO (21:10)
[2021-10-11] MEDS: Acetaminophen 325 MG TABLET 650 MG PO (21:12)
--- NOTE | 2021-10-11 21:32 | PM.EVENT ---
Event Note Date of Service: 10/11/21 Event Note: pt was scheduled to receive 40 units of lantus but as nurse was about to inject, needle got detached appears that pt may not have received any of the lantus but to be safe, will give a 1 time dose of 35 units for tonight
[2021-10-11] MEDS: Insulin Glargine,Hum.rec.anlog 100 UNIT/ML 10 ML VIAL 35 UNIT SUBCUT (21:40)
--- NOTE | 2021-10-12 05:54 | PC.NURSE ---
RN assumed care at 1900. Patient POC high, however, while administering dose of QHS insulin, needle detached from syringe, unclear if patient received any of the medication. Dr. Pritchett aware, ordered 35 units of Lantus for safe coverage, administered appropriately per NOV. Patient slept throughout the night, will continue to monitor
[2021-10-12 08:15] LABS: Glucose, Whole Blood 117 mg/dL (60-115)
[2021-10-12] MEDS: Mirabegron 25 MG TAB.ER.24H PO (09:11)
[2021-10-12] MEDS: hydroCHLOROthiazide 12.5 MG TABLET PO (09:11)
[2021-10-12] MEDS: Metoprolol Succinate ER 25 MG TAB.ER.24H PO (09:11)
[2021-10-12] MEDS: Aspirin Enteric Coated 81 MG TABLET.DR PO (09:11)
[2021-10-12] MEDS: amLODIPine Besylate 5 MG TABLET PO (09:12)
[2021-10-12] MEDS: Atorvastatin Calcium 80 MG TABLET PO (09:12)
[2021-10-12] MEDS: Multivitamin TABLET 1 TAB PO (09:12)
[2021-10-12] MEDS: Ipratropium Bromide Nas 0.03 % 30 ML SPRAY 2 SPRAY NOSTRIL-B ×2 (09:22→21:27)
[2021-10-12] MEDS: Valsartan 80 MG TABLET PO (10:33)
[2021-10-12] MEDS: Donepezil HCl 5 MG TABLET PO (10:33)
--- NOTE | 2021-10-12 11:49 | PC.NURSE ---
Pt is Alert, oriented to person and place at this time only. Pt ambulated around the department independently. She is in NAD, LCA, moving bowels and urinating in the BR independently. Pt unaware of LC placement, states she is here for a UTI and would like to go home. Explained to pt her , Jairo is aware of her POC and he will update her. Call sandra within reach. Will continue to monitor.
--- NOTE | 2021-10-12 11:50 | MHC.CM.ED ---
Patient remains in ER overflow. Per Iona in financial counseling, there may be an issue with funds patient's has to pay down. T/w spoke with patient's sister, Stephanie via telephone. The spend down issue was discussed with patient. Per Stephanie, patient didn't pay any of the bills for about 6 months. Jairo's daughter paid the bills. Jairo paid his daughter back. Jairo and Stephanie will be going to the track repair worker on Sunday to get all the necessary paperwork completed, including an affadavict about the money that was spent. All of this will be provided to Iona on Sunday after the appointment. No bed offers have been made yet. Continue to monitor for d/c needs.
[2021-10-12 12:26] VITALS: BP 106/56; PULSE 78; RESP 14; TEMP 36.7; O2SAT 96
[2021-10-12] MEDS: Insulin Lispro 100 UNIT/ML 3 ML VIAL SUBCUT ×2 (13:23→18:28)
[2021-10-12 13:30] LABS: Glucose, Whole Blood 187 mg/dL (60-115)
[2021-10-12 17:40] LABS: Glucose, Whole Blood 157 mg/dL (60-115)
[2021-10-12 19:22] VITALS: BP 108/57; PULSE 79; RESP 18; TEMP 36.6; O2SAT 97
[2021-10-12] MEDS: QUEtiapine Fumarate 25 MG TABLET PO (21:26)
[2021-10-12] MEDS: Acetaminophen 325 MG TABLET 650 MG PO (21:26)
[2021-10-12] MEDS: Omeprazole 20 MG CAPSULE.DR PO (21:26)
[2021-10-12] MEDS: Baclofen 10 MG TABLET PO (21:26)
[2021-10-12 21:27] LABS: Glucose, Whole Blood 195 mg/dL (60-115)
[2021-10-12] MEDS: Insulin Glargine,Hum.rec.anlog 100 UNIT/ML 10 ML VIAL 40 UNIT SUBCUT (21:27)
[2021-10-12 23:48] VITALS: PULSE 82; RESP 16; O2SAT 97
[2021-10-13 07:45] LABS: Glucose, Whole Blood 168 mg/dL (60-115)
[2021-10-13 08:36] VITALS: BP 103/55; PULSE 78; RESP 12; TEMP 36.6; O2SAT 98
[2021-10-13] MEDS: Metoprolol Succinate ER 25 MG TAB.ER.24H PO (09:08)
[2021-10-13] MEDS: Insulin Lispro 100 UNIT/ML 3 ML VIAL SUBCUT ×3 (09:08→18:25)
[2021-10-13] MEDS: Ipratropium Bromide Nas 0.03 % 30 ML SPRAY 2 SPRAY NOSTRIL-B ×2 (09:08→20:59)
[2021-10-13] MEDS: amLODIPine Besylate 5 MG TABLET PO (09:08)
[2021-10-13] MEDS: Multivitamin TABLET 1 TAB PO (09:08)
[2021-10-13] MEDS: hydroCHLOROthiazide 12.5 MG TABLET PO (09:08)
[2021-10-13] MEDS: Mirabegron 25 MG TAB.ER.24H PO (09:08)
[2021-10-13] MEDS: Aspirin Enteric Coated 81 MG TABLET.DR PO (09:08)
--- NOTE | 2021-10-13 09:18 | PC.NURSE ---
Pt A&Ox2, unaware of date. Knows she is in a hospital but thinks she is here for a UTI, gets upset and agitated if you explain the need for LTC. Pt ambulates independently around the unit. No complaints of pain. Medicated as per [facility] orders. NAD, LCA, no edema noted, abd soft, non tender. Call sandra within reach. Will continue to monitor.
[2021-10-13] MEDS: Donepezil HCl 5 MG TABLET PO (09:35)
[2021-10-13] MEDS: Valsartan 80 MG TABLET PO (09:35)
[2021-10-13] MEDS: Atorvastatin Calcium 80 MG TABLET PO (09:35)
[2021-10-13 12:36] LABS: Glucose, Whole Blood 201 mg/dL (60-115)
--- NOTE | 2021-10-13 16:38 | PC.NURSE ---
Pt visiting with at this time, patient questioning when she gets to go home, asking this RN for patient. Explained to we are waiting on them to submit application for [employer], he is aware the dispo is dependent on their progress with the paperwork.
[2021-10-13 18:08] LABS: Glucose, Whole Blood 218 mg/dL (60-115)
[2021-10-13 20:51] LABS: Glucose, Whole Blood 196 mg/dL (60-115)
[2021-10-13] MEDS: Acetaminophen 325 MG TABLET 650 MG PO (20:58)
[2021-10-13] MEDS: Omeprazole 20 MG CAPSULE.DR PO (20:58)
[2021-10-13] MEDS: Insulin Glargine,Hum.rec.anlog 100 UNIT/ML 10 ML VIAL 40 UNIT SUBCUT (20:59)
[2021-10-13] MEDS: QUEtiapine Fumarate 25 MG TABLET PO (20:59)
[2021-10-13] MEDS: Baclofen 10 MG TABLET PO (20:59)
[2021-10-14 07:32] VITALS: BP 105/56; PULSE 80; RESP 14; O2SAT 97
--- NOTE | 2021-10-14 07:57 | PC.NURSE ---
pt poc 185, had already eaten breakfast 35 mins ago. insulin held at this time. no distress noted.
[2021-10-14 07:59] LABS: Glucose, Whole Blood 185 mg/dL (60-115)
[2021-10-14] MEDS: Metoprolol Succinate ER 25 MG TAB.ER.24H PO (08:05)
[2021-10-14] MEDS: hydroCHLOROthiazide 12.5 MG TABLET PO (08:05)
[2021-10-14] MEDS: Aspirin Enteric Coated 81 MG TABLET.DR PO (08:05)
[2021-10-14] MEDS: Valsartan 80 MG TABLET PO (08:05)
[2021-10-14] MEDS: Mirabegron 25 MG TAB.ER.24H PO (08:05)
[2021-10-14] MEDS: Multivitamin TABLET 1 TAB PO (08:05)
[2021-10-14] MEDS: Atorvastatin Calcium 80 MG TABLET PO (08:05)
[2021-10-14] MEDS: Donepezil HCl 5 MG TABLET PO (08:06)
[2021-10-14] MEDS: amLODIPine Besylate 5 MG TABLET PO (08:06)
[2021-10-14 11:35] LABS: Glucose, Whole Blood 208 mg/dL (60-115)
--- NOTE | 2021-10-14 12:44 | MHC.CM.ED ---
Patient remains in ER overflow. Nery from [employer] on-site to visit with patient. Elder at risk was previously filed. Nery can be reached via telephone at [phone], ext [phone]. Continue to monitor for d/c needs.
[2021-10-14] MEDS: Insulin Lispro 100 UNIT/ML 3 ML VIAL SUBCUT (13:22)
[2021-10-14 15:44] VITALS: BP 96/53; PULSE 80; RESP 14; TEMP 36.2; O2SAT 98
[2021-10-14 18:11] LABS: Glucose, Whole Blood 277 mg/dL (60-115)
--- NOTE | 2021-10-14 19:30 | PC.NURSE ---
Assumed care of pt Pt resting on hospital bed. at bedside NAD Will continue to monitor
[2021-10-14 20:33] LABS: Glucose, Whole Blood 282 mg/dL (60-115)
[2021-10-14] MEDS: Omeprazole 20 MG CAPSULE.DR PO (21:11)
[2021-10-14] MEDS: QUEtiapine Fumarate 25 MG TABLET PO (21:11)
[2021-10-14] MEDS: Insulin Glargine,Hum.rec.anlog 100 UNIT/ML 10 ML VIAL 40 UNIT SUBCUT (21:11)
[2021-10-14 22:09] VITALS: BP 109/64; PULSE 83; RESP 12; TEMP 36.7; O2SAT 95
[2021-10-14] MEDS: Baclofen 10 MG TABLET PO (22:10)
[2021-10-14] MEDS: Meclizine HCl 25 MG TABLET PO (22:10)
[2021-10-14] MEDS: Ipratropium Bromide Nas 0.03 % 30 ML SPRAY 2 SPRAY NOSTRIL-B (22:24)
--- NOTE | 2021-10-14 23:06 | PC.NURSE ---
Pt medicated per NOV Pt resting on hospital bed, watching TV Pt ambulatory to bathroom. Gait even and steady Will continue to monitor
[2021-10-15 05:44] VITALS: RESP 14
[2021-10-15 07:58] LABS: Glucose, Whole Blood 173 mg/dL (60-115)
--- NOTE | 2021-10-15 08:14 | PC.NURSE ---
Pt received from dip unit operator: Pt AOX2 with hx of dementia. Pt had psych consult and is deemed unable to make her own medical decisions. Pt case management case and pending [employer] financial decision. Pt heart sounds regular and lungs clear. Pt abd soft and non-tender.
[2021-10-15 08:49] VITALS: BP 111/67; PULSE 86; RESP 15; TEMP 36.2; O2SAT 94
[2021-10-15] MEDS: Donepezil HCl 5 MG TABLET PO (09:12)
[2021-10-15] MEDS: Atorvastatin Calcium 80 MG TABLET PO (09:12)
[2021-10-15] MEDS: Aspirin Enteric Coated 81 MG TABLET.DR PO (09:12)
[2021-10-15] MEDS: Ipratropium Bromide Nas 0.03 % 30 ML SPRAY 2 SPRAY NOSTRIL-B ×2 (09:12→21:38)
[2021-10-15] MEDS: Metoprolol Succinate ER 25 MG TAB.ER.24H PO (09:13)
[2021-10-15] MEDS: Multivitamin TABLET 1 TAB PO (09:13)
[2021-10-15] MEDS: Mirabegron 25 MG TAB.ER.24H PO (09:16)
[2021-10-15] MEDS: Insulin Lispro 100 UNIT/ML 3 ML VIAL SUBCUT ×2 (09:42→18:20)
[2021-10-15 13:01] VITALS: BP 117/57; PULSE 87; RESP 16; O2SAT 94
[2021-10-15 13:58] LABS: Glucose, Whole Blood 175 mg/dL (60-115)
[2021-10-15 17:47] LABS: Glucose, Whole Blood 206 mg/dL (60-115)
[2021-10-15 21:03] LABS: Glucose, Whole Blood 172 mg/dL (60-115)
[2021-10-15] MEDS: Omeprazole 20 MG CAPSULE.DR PO (21:38)
[2021-10-15] MEDS: QUEtiapine Fumarate 25 MG TABLET PO (21:38)
[2021-10-15] MEDS: Insulin Glargine,Hum.rec.anlog 100 UNIT/ML 10 ML VIAL 40 UNIT SUBCUT (21:39)
--- NOTE | 2021-10-15 21:56 | PC.NURSE ---
Reassessments from yesterday documented as Not Done as they were not documented from the nurse on shift at the time. Pt medicated per MAR, resting in bed, denies pain/discomfort.
[2021-10-15 22:00] VITALS: BP 107/53; PULSE 75; RESP 18; TEMP 37; O2SAT 95
[2021-10-16 07:46] VITALS: BP 97/52; PULSE 96; RESP 16; TEMP 36.7; O2SAT 95
--- NOTE | 2021-10-16 07:46 | PC.NURSE ---
Pt received from rn shift mgr: Pt AOX4 and offers no complaints. Heart sounds normal and lungs clear. Pt abd soft and non-tender. Pt able to ambulate to [facility] with steady gait. Pt Case management case and pending [facility] financial assistance.
[2021-10-16 08:01] LABS: Glucose, Whole Blood 185 mg/dL (60-115)
[2021-10-16] MEDS: Insulin Lispro 100 UNIT/ML 3 ML VIAL SUBCUT ×3 (08:54→18:23)
[2021-10-16] MEDS: Atorvastatin Calcium 80 MG TABLET PO (08:55)
[2021-10-16] MEDS: Ipratropium Bromide Nas 0.03 % 30 ML SPRAY 2 SPRAY NOSTRIL-B ×2 (08:55→23:04)
[2021-10-16] MEDS: Aspirin Enteric Coated 81 MG TABLET.DR PO (08:55)
[2021-10-16] MEDS: Donepezil HCl 5 MG TABLET PO (08:55)
[2021-10-16] MEDS: Multivitamin TABLET 1 TAB PO (08:56)
[2021-10-16] MEDS: Mirabegron 25 MG TAB.ER.24H PO (09:52)
[2021-10-16 13:04] LABS: Glucose, Whole Blood 172 mg/dL (60-115)
[2021-10-16 14:02] VITALS: BP 123/63; PULSE 74; RESP 16; O2SAT 97
[2021-10-16 17:31] LABS: Glucose, Whole Blood 179 mg/dL (60-115)
[2021-10-16 20:00] VITALS: BP 104/63; PULSE 83; RESP 16; TEMP 36.4; O2SAT 97
[2021-10-16 21:25] LABS: Glucose, Whole Blood 165 mg/dL (60-115)
[2021-10-16] MEDS: Insulin Glargine,Hum.rec.anlog 100 UNIT/ML 10 ML VIAL 40 UNIT SUBCUT (22:07)
[2021-10-16] MEDS: Omeprazole 20 MG CAPSULE.DR PO (22:07)
[2021-10-16] MEDS: QUEtiapine Fumarate 25 MG TABLET PO (22:08)
[2021-10-16] MEDS: Baclofen 10 MG TABLET PO (22:10)
[2021-10-16] MEDS: Acetaminophen 325 MG TABLET 650 MG PO (22:10)
[2021-10-17 06:03] VITALS: BP 136/78; PULSE 72; RESP 16; TEMP 36.6; O2SAT 95
--- NOTE | 2021-10-17 07:22 | PC.NURSE ---
Pt received from kitchen manager: Pt AOX3 and offers no complaints. Heart sounds normal and lungs clear. Pt abd soft and non-tender. Pt self ambulatory to with steady gait. Pt remains case management case for [facility] placement.
[2021-10-17 08:03] LABS: Glucose, Whole Blood 199 mg/dL (60-115)
[2021-10-17 08:06] VITALS: BP 144/66; PULSE 82; RESP 16; TEMP 36.7; O2SAT 95
--- NOTE | 2021-10-17 08:31 | PC.NURSE ---
ER MARCUS Drew made aware of pt's morning vitals. PA also made aware of how pt vitals have been trending and how pt's BP medications have been held for the past 2 days. PA relays to given metoprolol ER and to hold other BP medications until reassessment. PA also states she will add labs just in case. RN will continue to monitor.
[2021-10-17] MEDS: Insulin Lispro 100 UNIT/ML 3 ML VIAL SUBCUT ×3 (08:45→18:23)
[2021-10-17] MEDS: Atorvastatin Calcium 80 MG TABLET PO (08:46)
[2021-10-17] MEDS: Aspirin Enteric Coated 81 MG TABLET.DR PO (08:46)
[2021-10-17] MEDS: Donepezil HCl 5 MG TABLET PO (08:46)
[2021-10-17] MEDS: Metoprolol Succinate ER 25 MG TAB.ER.24H PO (08:47)
[2021-10-17] MEDS: Ipratropium Bromide Nas 0.03 % 30 ML SPRAY 2 SPRAY NOSTRIL-B ×2 (08:47→21:55)
[2021-10-17] MEDS: Multivitamin TABLET 1 TAB PO (08:47)
[2021-10-17 10:21] VITALS: BP 132/54; PULSE 86; RESP 16; TEMP 36.7; O2SAT 93
--- NOTE | 2021-10-17 10:26 | MHC.CM.ED ---
Patient remains in ER. T/W spoke with patient's sister, Stephanie via telephone at [phone]. All necessary paperwork was completed with on Sunday. Ant will bring the necessary paperwork to Iona in financial counseling today, so MH application can be completed. Iona will provide CM with a copy of application & supporting financial documents when this is completed. Continue to monitor for d/c needs.
[2021-10-17] MEDS: Mirabegron 25 MG TAB.ER.24H PO (10:48)
[2021-10-17 11:43] LABS: MANUAL DIFF FLAG NO
[2021-10-17 11:44] LABS: Basophils Percent Auto 0.3 % (0-2); Eosinophils Absolute Auto 0.2 X10*3/uL (0.0-0.4); Eosinophils Percent Auto 1.9 % (0-4); Hematocrit 39.9 % (37.0-47.0); Hemoglobin 13.3 g/dl (12.0-16.0); Imm Gran Abs Auto 0.05 X10*3/uL (0.00-0.03); Imm Gran Pct Auto 0.5 % (0.0-0.4); Lymphocytes Absolute Auto 2.6 X10*3/uL (1.2-4.9); Lymphocytes Percent Auto 23.9 % (20-40); Mean Corpuscular HGB Conc 33.3 g/dl (31.0-35.0); Mean Corpuscular Hemoglobin 31.7 pg (27.0-33.0); Mean Corpuscular Volume 95.2 fL (80.0-98.0); Mean Platelet Volume 9.5 fL (9.4-12.3); Monocytes Absolute Auto 0.9 X10*3/uL (0.1-1.2); Monocytes Percent Auto 8.2 % (2-11); Neutrophils Absolute Auto 7.2 x10*3/uL (2.0-8.3); Neutrophils Percent Auto 65.2 % (45-73); Platelet Count 279 X10*3/uL (160-400); Red Blood Count 4.19 X10*6/uL (4.20-5.50); Red Cell Distribution Width 13.8 % (11.0-16.0)
[2021-10-17 12:26] LABS: Alanine Aminotransferase 17 U/L (0-31); Albumin Level 3.8 g/dL (3.5-5.0); Alkaline Phosphatase 62 U/L (39-117); Anion Gap 14 (12-20); Aspartate Amino Transferase 19 U/L (5-31); Bilirubin Total 0.6 mg/dL (0.0-1.0); Blood Urea Nitrogen 25 mg/dL (9-16); Calcium 9.8 mg/dL (8.4-10.2); Carbon Dioxide 24 mmol/L (22-29); Chloride 107 mmol/L (96-108); Creatinine Clr Calc Pharmacy 74.2; Estimated Glomerular Filt Rate > 60; Glucose Random 184 mg/dL (60-115); Magnesium 1.7 mg/dL (1.6-2.6); Sodium 141 mmol/L (135-145); Total Protein 6.7 g/dL (6.5-8.0)
[2021-10-17 12:32] LABS: B Type Natriuretic Peptide 19 pg/mL (<100)
[2021-10-17 15:15] VITALS: BP 147/83; PULSE 77; RESP 18; TEMP 36.7; O2SAT 97
[2021-10-17 18:17] LABS: Glucose, Whole Blood 197 mg/dL (60-115)
[2021-10-17 18:17] LABS: Glucose, Whole Blood 172 mg/dL (60-115)
[2021-10-17 21:23] LABS: Glucose, Whole Blood 218 mg/dL (60-115)
[2021-10-17 21:29] VITALS: BP 118/56; PULSE 75; RESP 18; TEMP 36.4; O2SAT 96
[2021-10-17] MEDS: Baclofen 10 MG TABLET PO (21:54)
[2021-10-17] MEDS: QUEtiapine Fumarate 25 MG TABLET PO (21:54)
[2021-10-17] MEDS: Acetaminophen 325 MG TABLET 650 MG PO (21:54)
[2021-10-17] MEDS: Insulin Glargine,Hum.rec.anlog 100 UNIT/ML 10 ML VIAL 40 UNIT SUBCUT (21:55)
[2021-10-17] MEDS: Omeprazole 20 MG CAPSULE.DR PO (21:55)
[2021-10-18 08:10] LABS: Glucose, Whole Blood 236 mg/dL (60-115)
[2021-10-18 10:32] VITALS: BP 142/67; PULSE 78; RESP 18; O2SAT 96
[2021-10-18] MEDS: Atorvastatin Calcium 80 MG TABLET PO (10:32)
[2021-10-18] MEDS: Donepezil HCl 5 MG TABLET PO (10:32)
[2021-10-18] MEDS: hydroCHLOROthiazide 12.5 MG TABLET PO (10:33)
[2021-10-18] MEDS: Aspirin Enteric Coated 81 MG TABLET.DR PO (10:33)
[2021-10-18] MEDS: Mirabegron 25 MG TAB.ER.24H PO (10:33)
[2021-10-18] MEDS: Multivitamin TABLET 1 TAB PO (10:33)
[2021-10-18] MEDS: amLODIPine Besylate 5 MG TABLET PO (10:34)
[2021-10-18] MEDS: Valsartan 80 MG TABLET PO (10:34)
[2021-10-18] MEDS: Metoprolol Succinate ER 25 MG TAB.ER.24H PO (10:34)
[2021-10-18] MEDS: Ipratropium Bromide Nas 0.03 % 30 ML SPRAY 2 SPRAY NOSTRIL-B ×2 (11:22→21:05)
--- NOTE | 2021-10-18 12:58 | MHC.CM.ED ---
Addendum entered by Whitley Martin 10/18/21 13:23: Referral broadcasted within 50 miles of patient's residence to all facilities that have locked units. 36 referrals have been made. Original Note: Patient remains in ER overflow. Copy of [employer] application and supporting documentation has been obtained from Iona in financial counselor's office. Referral rebroadcasted in [employer]. Continue to monitor for d/c needs.
[2021-10-18 13:29] LABS: Glucose, Whole Blood 219 mg/dL (60-115)
[2021-10-18] MEDS: Insulin Lispro 100 UNIT/ML 3 ML VIAL SUBCUT ×2 (13:44→18:48)
[2021-10-18 18:25] LABS: Glucose, Whole Blood 248 mg/dL (60-115)
[2021-10-18 18:40] LABS: Glucose, Whole Blood 252 mg/dL (60-115)
[2021-10-18 19:59] VITALS: BP 97/45; PULSE 79; RESP 18; TEMP 36.7; O2SAT 95
[2021-10-18] MEDS: Omeprazole 20 MG CAPSULE.DR PO (21:03)
[2021-10-18] MEDS: QUEtiapine Fumarate 25 MG TABLET PO (21:03)
[2021-10-18] MEDS: Acetaminophen 325 MG TABLET 650 MG PO (21:03)
[2021-10-18] MEDS: Insulin Glargine,Hum.rec.anlog 100 UNIT/ML 10 ML VIAL 40 UNIT SUBCUT (21:04)
[2021-10-18] MEDS: Baclofen 10 MG TABLET PO (21:06)
[2021-10-18 21:13] LABS: Glucose, Whole Blood 192 mg/dL (60-115)
[2021-10-18 23:51] VITALS: BP 106/59; PULSE 82; RESP 17; TEMP 36.8; O2SAT 94
[2021-10-19 07:26] LABS: Glucose, Whole Blood 153 mg/dL (60-115)
[2021-10-19 08:26] VITALS: BP 110/66; PULSE 77; RESP 18; TEMP 36.8; O2SAT 95
[2021-10-19] MEDS: Atorvastatin Calcium 80 MG TABLET PO (08:41)
[2021-10-19] MEDS: hydroCHLOROthiazide 12.5 MG TABLET PO (08:41)
[2021-10-19] MEDS: Aspirin Enteric Coated 81 MG TABLET.DR PO (08:42)
[2021-10-19] MEDS: Valsartan 80 MG TABLET PO (08:42)
[2021-10-19] MEDS: Donepezil HCl 5 MG TABLET PO (08:42)
[2021-10-19] MEDS: amLODIPine Besylate 5 MG TABLET PO (08:42)
[2021-10-19] MEDS: Metoprolol Succinate ER 25 MG TAB.ER.24H PO (08:42)
[2021-10-19] MEDS: Mirabegron 25 MG TAB.ER.24H PO (08:42)
[2021-10-19] MEDS: Multivitamin TABLET 1 TAB PO (08:42)
[2021-10-19] MEDS: Ipratropium Bromide Nas 0.03 % 30 ML SPRAY 2 SPRAY NOSTRIL-B ×2 (09:42→21:14)
--- NOTE | 2021-10-19 10:32 | MHC.CM.ED ---
Patient remains in ER. [facility] application with supporting documents obtained from Iona in financial counseling office. Referral broadcasted to all facilities within 50 miles of patient's residence that have locked dementia units. 36 referrals have been made. No bed offers made yet. Will reach out to facilities that have not responded in Allscripts. Continue to monitor for d/c needs.
--- NOTE | 2021-10-19 11:17 | PC.NURSE ---
Pt A&Ox3, not aware of situation at this time. ambulatory with no assistance. Uses the BR, no complaints of pain. Medicated as per MAR orders, LCA, VS as charted, call sandra within reach will continue to monitor.
[2021-10-19] MEDS: Insulin Lispro 100 UNIT/ML 3 ML VIAL SUBCUT ×2 (13:52→18:25)
[2021-10-19 13:56] LABS: Glucose, Whole Blood 163 mg/dL (60-115)
[2021-10-19 14:29] VITALS: BP 113/60; PULSE 81; RESP 12; TEMP 36.6; O2SAT 98
[2021-10-19 18:06] LABS: Glucose, Whole Blood 207 mg/dL (60-115)
[2021-10-19 18:07] VITALS: BP 107/40; PULSE 77; RESP 12; TEMP 37; O2SAT 96
--- NOTE | 2021-10-19 18:25 | PC.NURSE ---
patient a&ox3, family at bedside, vss, pt medicated per order, call sandra within reach, will continue to monitor.
[2021-10-19] MEDS: Omeprazole 20 MG CAPSULE.DR PO (20:56)
[2021-10-19] MEDS: Insulin Glargine,Hum.rec.anlog 100 UNIT/ML 10 ML VIAL 40 UNIT SUBCUT (20:56)
[2021-10-19] MEDS: QUEtiapine Fumarate 25 MG TABLET PO (20:56)
--- NOTE | 2021-10-19 21:03 | PC.NURSE ---
called pharmacy to obtain missing nasal spray
[2021-10-19 23:12] VITALS: BP 136/71; PULSE 79; RESP 16; TEMP 36.7; O2SAT 95
[2021-10-19] MEDS: Acetaminophen 325 MG TABLET 650 MG PO (23:39)
[2021-10-19] MEDS: Baclofen 10 MG TABLET PO (23:39)
[2021-10-20 06:05] VITALS: BP 116/51; RESP 16; TEMP 36.9; O2SAT 96
[2021-10-20 07:13] LABS: Glucose, Whole Blood 233 mg/dL (60-115)
[2021-10-20] MEDS: Insulin Lispro 100 UNIT/ML 3 ML VIAL SUBCUT ×3 (07:36→18:21)
[2021-10-20 08:33] VITALS: BP 116/42; PULSE 81; RESP 18; O2SAT 96
[2021-10-20] MEDS: Multivitamin TABLET 1 TAB PO (08:35)
[2021-10-20] MEDS: Mirabegron 25 MG TAB.ER.24H PO (08:35)
[2021-10-20] MEDS: Metoprolol Succinate ER 25 MG TAB.ER.24H PO (08:36)
[2021-10-20] MEDS: amLODIPine Besylate 5 MG TABLET PO (08:36)
[2021-10-20] MEDS: Atorvastatin Calcium 80 MG TABLET PO (08:36)
[2021-10-20] MEDS: Aspirin Enteric Coated 81 MG TABLET.DR PO (08:36)
[2021-10-20] MEDS: Donepezil HCl 5 MG TABLET PO (08:36)
[2021-10-20] MEDS: hydroCHLOROthiazide 12.5 MG TABLET PO (08:36)
[2021-10-20] MEDS: Ipratropium Bromide Nas 0.03 % 30 ML SPRAY 2 SPRAY NOSTRIL-B ×2 (08:40→20:20)
[2021-10-20] MEDS: Valsartan 80 MG TABLET PO (08:45)
--- NOTE | 2021-10-20 12:45 | PC.NURSE ---
pt alert, in good spirits, this rn offered the pt a shower but pt declined at this time.
[2021-10-20 12:48] LABS: Glucose, Whole Blood 180 mg/dL (60-115)
[2021-10-20 13:35] VITALS: BP 109/65; PULSE 79; RESP 15; TEMP 37.1; O2SAT 94
[2021-10-20 18:15] LABS: Glucose, Whole Blood 250 mg/dL (60-115)
--- NOTE | 2021-10-20 18:49 | PC.NURSE ---
pt's at bedside visiting
[2021-10-20] MEDS: QUEtiapine Fumarate 25 MG TABLET PO (20:20)
[2021-10-20] MEDS: Omeprazole 20 MG CAPSULE.DR PO (20:20)
[2021-10-20] MEDS: Insulin Glargine,Hum.rec.anlog 100 UNIT/ML 10 ML VIAL 40 UNIT SUBCUT (20:20)
[2021-10-21 07:09] VITALS: BP 137/67; PULSE 88; RESP 18; TEMP 37.1; O2SAT 94
[2021-10-21] MEDS: Multivitamin TABLET 1 TAB PO (09:00)
[2021-10-21] MEDS: Atorvastatin Calcium 80 MG TABLET PO (09:00)
[2021-10-21] MEDS: Metoprolol Succinate ER 25 MG TAB.ER.24H PO (09:01)
[2021-10-21] MEDS: Aspirin Enteric Coated 81 MG TABLET.DR PO (09:01)
[2021-10-21] MEDS: hydroCHLOROthiazide 12.5 MG TABLET PO (09:01)
[2021-10-21] MEDS: Donepezil HCl 5 MG TABLET PO (09:01)
[2021-10-21] MEDS: Mirabegron 25 MG TAB.ER.24H PO (09:01)
[2021-10-21] MEDS: amLODIPine Besylate 5 MG TABLET PO (09:02)
[2021-10-21] MEDS: Ipratropium Bromide Nas 0.03 % 30 ML SPRAY 2 SPRAY NOSTRIL-B ×2 (09:03→20:18)
[2021-10-21] MEDS: Valsartan 80 MG TABLET PO (09:39)
[2021-10-21] MEDS: Baclofen 10 MG TABLET PO ×2 (09:39→21:00)
[2021-10-21] MEDS: Acetaminophen 325 MG TABLET 650 MG PO ×2 (09:40→20:59)
--- NOTE | 2021-10-21 09:41 | PC.NURSE ---
Pt has been up to ambulate around department with PCT. Is slow but steady on feet. Skin pwd. axox3. states i really just want to go home. Pt is calm and patient. taking meds w/o diff. ate 50% breakfast tray. no complaints except chronic back pain.
[2021-10-21 14:00] LABS: Glucose, Whole Blood 183 mg/dL (60-115)
[2021-10-21] MEDS: Insulin Lispro 100 UNIT/ML 3 ML VIAL SUBCUT ×2 (14:13→18:07)
[2021-10-21 16:47] VITALS: BP 122/66; PULSE 72; RESP 18; TEMP 37; O2SAT 97
[2021-10-21 18:04] LABS: Glucose, Whole Blood 280 mg/dL (60-115)
[2021-10-21] MEDS: QUEtiapine Fumarate 25 MG TABLET PO (20:20)
[2021-10-21] MEDS: Insulin Glargine,Hum.rec.anlog 100 UNIT/ML 10 ML VIAL 40 UNIT SUBCUT (20:20)
[2021-10-21] MEDS: Omeprazole 20 MG CAPSULE.DR PO (20:20)
[2021-10-22 07:30] LABS: Glucose, Whole Blood 134 mg/dL (60-115)
[2021-10-22 07:41] VITALS: BP 129/52; PULSE 72; RESP 14; TEMP 36.7; O2SAT 99
[2021-10-22] MEDS: Valsartan 80 MG TABLET PO (07:42)
[2021-10-22] MEDS: Mirabegron 25 MG TAB.ER.24H PO (07:43)
[2021-10-22] MEDS: Atorvastatin Calcium 80 MG TABLET PO (07:44)
[2021-10-22] MEDS: Multivitamin TABLET 1 TAB PO (07:44)
[2021-10-22] MEDS: amLODIPine Besylate 5 MG TABLET PO (07:44)
[2021-10-22] MEDS: Donepezil HCl 5 MG TABLET PO (07:44)
[2021-10-22] MEDS: hydroCHLOROthiazide 12.5 MG TABLET PO (07:44)
[2021-10-22] MEDS: Aspirin Enteric Coated 81 MG TABLET.DR PO (07:44)
[2021-10-22] MEDS: Metoprolol Succinate ER 25 MG TAB.ER.24H PO (07:44)
[2021-10-22] MEDS: Ipratropium Bromide Nas 0.03 % 30 ML SPRAY 2 SPRAY NOSTRIL-B ×2 (07:47→21:27)
[2021-10-22 12:46] VITALS: BP 118/46; PULSE 70; RESP 17; TEMP 36.7; O2SAT 97
[2021-10-22 12:53] LABS: Glucose, Whole Blood 143 mg/dL (60-115)
[2021-10-22 17:38] LABS: Glucose, Whole Blood 222 mg/dL (60-115)
[2021-10-22] MEDS: Insulin Lispro 100 UNIT/ML 3 ML VIAL SUBCUT (18:25)
[2021-10-22 20:46] VITALS: BP 142/65; PULSE 70; RESP 20; TEMP 37.1; O2SAT 97
[2021-10-22 20:56] LABS: Glucose, Whole Blood 187 mg/dL (60-115)
[2021-10-22 21:27] LABS: Glucose, Whole Blood 193 mg/dL (60-115)
[2021-10-22] MEDS: Insulin Glargine,Hum.rec.anlog 100 UNIT/ML 10 ML VIAL 40 UNIT SUBCUT (21:27)
[2021-10-22] MEDS: Omeprazole 20 MG CAPSULE.DR PO (21:27)
[2021-10-22] MEDS: QUEtiapine Fumarate 25 MG TABLET PO (21:27)
[2021-10-22] MEDS: Baclofen 10 MG TABLET PO (21:33)
[2021-10-22] MEDS: Acetaminophen 325 MG TABLET 650 MG PO (21:33)
[2021-10-23 06:12] VITALS: BP 128/78; PULSE 74; RESP 16; TEMP 36.6; O2SAT 94
[2021-10-23 07:22] LABS: Glucose, Whole Blood 232 mg/dL (60-115)
[2021-10-23 08:36] LABS: MANUAL DIFF FLAG NO
[2021-10-23] MEDS: Mirabegron 25 MG TAB.ER.24H PO (08:38)
[2021-10-23] MEDS: Valsartan 80 MG TABLET PO (08:38)
[2021-10-23] MEDS: Insulin Lispro 100 UNIT/ML 3 ML VIAL SUBCUT ×2 (08:38→19:02)
[2021-10-23] MEDS: hydroCHLOROthiazide 12.5 MG TABLET PO (08:38)
[2021-10-23 08:39] LABS: Basophils Percent Auto 0.4 % (0-2); Eosinophils Absolute Auto 0.2 X10*3/uL (0.0-0.4); Eosinophils Percent Auto 2.8 % (0-4); Hematocrit 38.2 % (37.0-47.0); Hemoglobin 12.5 g/dl (12.0-16.0); Imm Gran Abs Auto 0.03 X10*3/uL (0.00-0.03); Imm Gran Pct Auto 0.4 % (0.0-0.4); Lymphocytes Absolute Auto 2.5 X10*3/uL (1.2-4.9); Mean Corpuscular HGB Conc 32.7 g/dl (31.0-35.0); Mean Corpuscular Hemoglobin 31.7 pg (27.0-33.0); Mean Platelet Volume 9.5 fL (9.4-12.3); Monocytes Absolute Auto 0.7 X10*3/uL (0.1-1.2); Monocytes Percent Auto 8.4 % (2-11); Neutrophils Absolute Auto 4.8 x10*3/uL (2.0-8.3); Platelet Count 189 X10*3/uL (160-400); Red Blood Count 3.94 X10*6/uL (4.20-5.50); Red Cell Distribution Width 13.5 % (11.0-16.0); White Blood Count 8.2 X10*3/uL (4.8-10.8)
[2021-10-23] MEDS: amLODIPine Besylate 5 MG TABLET PO (08:39)
[2021-10-23] MEDS: Donepezil HCl 5 MG TABLET PO (08:39)
[2021-10-23] MEDS: Multivitamin TABLET 1 TAB PO (08:39)
[2021-10-23] MEDS: Atorvastatin Calcium 80 MG TABLET PO (08:39)
[2021-10-23] MEDS: Aspirin Enteric Coated 81 MG TABLET.DR PO (08:39)
[2021-10-23] MEDS: Ipratropium Bromide Nas 0.03 % 30 ML SPRAY 2 SPRAY NOSTRIL-B ×2 (08:39→21:14)
[2021-10-23] MEDS: Metoprolol Succinate ER 25 MG TAB.ER.24H PO (08:39)
[2021-10-23 08:58] LABS: Alanine Aminotransferase 13 U/L (0-31); Albumin Level 3.4 g/dL (3.5-5.0); Alkaline Phosphatase 55 U/L (39-117); Anion Gap 13 (12-20); Aspartate Amino Transferase 11 U/L (5-31); Bilirubin Total 0.6 mg/dL (0.0-1.0); Blood Urea Nitrogen 19 mg/dL (9-16); Calcium 9.3 mg/dL (8.4-10.2); Carbon Dioxide 26 mmol/L (22-29); Chloride 105 mmol/L (96-108); Creatinine Clr Calc Pharmacy 74.2; Estimated Glomerular Filt Rate > 60; Glucose Random 268 mg/dL (60-115); Sodium 140 mmol/L (135-145); Total Protein 5.9 g/dL (6.5-8.0)
[2021-10-23 12:16] LABS: Glucose, Whole Blood 153 mg/dL (60-115)
[2021-10-23 18:41] VITALS: BP 127/61; PULSE 82; RESP 16; TEMP 36.9; O2SAT 96
[2021-10-23 18:46] LABS: Glucose, Whole Blood 208 mg/dL (60-115)
--- NOTE | 2021-10-23 18:59 | PC.NURSE ---
pt up and ambulates to restroom w/o difficulty. Family at bedside. pt denies complaints.
[2021-10-23] MEDS: Acetaminophen 325 MG TABLET 650 MG PO (21:08)
[2021-10-23] MEDS: Baclofen 10 MG TABLET PO (21:09)
[2021-10-23] MEDS: QUEtiapine Fumarate 25 MG TABLET PO (21:09)
[2021-10-23] MEDS: Insulin Glargine,Hum.rec.anlog 100 UNIT/ML 10 ML VIAL 40 UNIT SUBCUT (21:09)
[2021-10-23] MEDS: Omeprazole 20 MG CAPSULE.DR PO (21:09)
--- NOTE | 2021-10-23 23:17 | PC.NURSE ---
pt sleeping in nad, wakes to voice. respirations easy, n/l. skin w/d. will continue to monitor pt.
--- NOTE | 2021-10-24 04:15 | PC.NURSE ---
pt up and ambulates to restroom w/o difficulty.
[2021-10-24 05:33] VITALS: BP 123/67; PULSE 79; RESP 16; TEMP 36.1; O2SAT 94
--- NOTE | 2021-10-24 06:23 | PC.NURSE ---
pt resting in stretcher, denies complaints. respirations easy, n/l. skin w/d. will continue to monitor pt.
[2021-10-24 07:10] LABS: Glucose, Whole Blood 173 mg/dL (60-115)
[2021-10-24 08:48] VITALS: BP 126/70; PULSE 76; RESP 17; TEMP 35.5; O2SAT 96
[2021-10-24] MEDS: Multivitamin TABLET 1 TAB PO (08:52)
[2021-10-24] MEDS: Aspirin Enteric Coated 81 MG TABLET.DR PO (08:52)
[2021-10-24] MEDS: Donepezil HCl 5 MG TABLET PO (08:52)
[2021-10-24] MEDS: Metoprolol Succinate ER 25 MG TAB.ER.24H PO (08:52)
[2021-10-24] MEDS: amLODIPine Besylate 5 MG TABLET PO (08:52)
[2021-10-24] MEDS: hydroCHLOROthiazide 12.5 MG TABLET PO (08:52)
[2021-10-24] MEDS: Atorvastatin Calcium 80 MG TABLET PO (08:52)
[2021-10-24] MEDS: Ipratropium Bromide Nas 0.03 % 30 ML SPRAY 2 SPRAY NOSTRIL-B ×2 (08:53→21:58)
[2021-10-24] MEDS: Insulin Lispro 100 UNIT/ML 3 ML VIAL SUBCUT ×3 (08:53→18:19)
[2021-10-24] MEDS: Valsartan 80 MG TABLET PO (08:56)
[2021-10-24] MEDS: Mirabegron 25 MG TAB.ER.24H PO (08:57)
[2021-10-24] MEDS: Acetaminophen 325 MG TABLET 650 MG PO (09:59)
[2021-10-24] MEDS: Baclofen 10 MG TABLET PO ×2 (10:00→21:56)
[2021-10-24 12:16] LABS: Glucose, Whole Blood 214 mg/dL (60-115)
[2021-10-24 13:39] VITALS: BP 126/68; PULSE 71; RESP 17; TEMP 35.7; O2SAT 94
--- NOTE | 2021-10-24 17:31 | PC.NURSE ---
pt resting comfortably in bed, resp even and unlabored.
[2021-10-24 18:10] LABS: Glucose, Whole Blood 202 mg/dL (60-115)
[2021-10-24 21:44] VITALS: PULSE 74; RESP 14; O2SAT 96
[2021-10-24] MEDS: Omeprazole 20 MG CAPSULE.DR PO (21:45)
[2021-10-24] MEDS: QUEtiapine Fumarate 25 MG TABLET PO (21:45)
[2021-10-24 21:51] LABS: Glucose, Whole Blood 217 mg/dL (60-115)
[2021-10-24] MEDS: Insulin Glargine,Hum.rec.anlog 100 UNIT/ML 10 ML VIAL 40 UNIT SUBCUT (21:56)
[2021-10-24 23:03] VITALS: RESP 16
[2021-10-25 04:21] VITALS: RESP 16
[2021-10-25 06:00] VITALS: BP 133/76; PULSE 83; RESP 16; TEMP 36.8; O2SAT 98
[2021-10-25 07:07] LABS: Glucose, Whole Blood 197 mg/dL (60-115)
[2021-10-25] MEDS: Insulin Lispro 100 UNIT/ML 3 ML VIAL SUBCUT ×2 (07:17→13:21)
[2021-10-25] MEDS: Ipratropium Bromide Nas 0.03 % 30 ML SPRAY 2 SPRAY NOSTRIL-B (09:30)
[2021-10-25] MEDS: Valsartan 80 MG TABLET PO (09:51)
[2021-10-25] MEDS: Mirabegron 25 MG TAB.ER.24H PO (09:51)
[2021-10-25] MEDS: amLODIPine Besylate 5 MG TABLET PO (09:52)
[2021-10-25] MEDS: Atorvastatin Calcium 80 MG TABLET PO (09:52)
[2021-10-25] MEDS: Donepezil HCl 5 MG TABLET PO (09:53)
[2021-10-25] MEDS: hydroCHLOROthiazide 12.5 MG TABLET PO (09:53)
[2021-10-25] MEDS: Metoprolol Succinate ER 25 MG TAB.ER.24H PO (09:53)
[2021-10-25] MEDS: Multivitamin TABLET 1 TAB PO (09:53)
[2021-10-25] MEDS: Aspirin Enteric Coated 81 MG TABLET.DR PO (09:53)
[2021-10-25 12:28] LABS: Glucose, Whole Blood 161 mg/dL (60-115)
--- NOTE | 2021-10-25 15:14 | MHC.CM.ED ---
Patient remains in ER. Patient has not had any behavior issues. No bed offers have been made yet. T/W spoke with patient's sister, Stephanie, via telephone at [phone]. Explained patient may need to go home with family until placement can be found when [employer] application is accepted by [employer]. Stephanie will speak to Jairo and get back to case management. Kayce Sheikh, Director of Case Management aware.
[2021-10-25 15:38] VITALS: BP 125/65; PULSE 80; RESP 16; TEMP 37.1; O2SAT 98
[2021-10-25 18:05] LABS: Glucose, Whole Blood 142 mg/dL (60-115)
[2021-10-25 19:42] VITALS: BP 107/52; PULSE 79; RESP 17; O2SAT 96
--- NOTE | 2021-10-25 20:19 | PC.NURSE ---
VS OBTAINED. PT ALERT, RESPIRATIONS EASY, N/L, SKIN W/D. PT UP TO RESTROOM W/O DIFFICULTY, STEADY EVEN GAIT AND RETURNS TO HOSPITAL BED. PT REMAINS ALERT, RESPIRATIONS, EASY, N/L. SKIN W/D. WILL CONTINUE TO MONITOR PT.
[2021-10-25] MEDS: Baclofen 10 MG TABLET PO (22:01)
[2021-10-25] MEDS: QUEtiapine Fumarate 25 MG TABLET PO (22:02)
[2021-10-25] MEDS: Insulin Glargine,Hum.rec.anlog 100 UNIT/ML 10 ML VIAL 40 UNIT SUBCUT (22:02)
[2021-10-25] MEDS: Omeprazole 20 MG CAPSULE.DR PO (22:02)
[2021-10-25] MEDS: Acetaminophen 325 MG TABLET 650 MG PO (22:08)
--- NOTE | 2021-10-25 23:52 | PC.NURSE ---
PT RESTING IN STRETCHER IN NAD. PT WAKES TO VOICE, RESPIRATIONS EASY, N/L. SKIN W/D. WILL CONTINUE TO MONITOR PT.
[2021-10-26 00:10] VITALS: BP 129/58; PULSE 76; RESP 18; O2SAT 96
--- NOTE | 2021-10-26 02:22 | PC.NURSE ---
pt sleeping, wakes to voice, pt in nad. resting apparently comfortable. will continue to monitor pt.
--- NOTE | 2021-10-26 04:18 | PC.NURSE ---
PT SLEEPING IN NAD. NO CHG IN PT'S CONDITION.
[2021-10-26 06:56] VITALS: BP 125/64; PULSE 78; RESP 14; TEMP 36.6; O2SAT 92
[2021-10-26] MEDS: Insulin Lispro 100 UNIT/ML 3 ML VIAL SUBCUT ×2 (07:10→16:55)
[2021-10-26 07:13] LABS: Glucose, Whole Blood 181 mg/dL (60-115)
--- NOTE | 2021-10-26 08:37 | MHC.CM.ED ---
Patient remains in ER. [facility] is interested in patient. However, they are requesting additional documentation on the 3 life insurance policies and bank statements. Per Iona in financial counseling, provided these documents last night. Iona will submit them to [facility] today and get copies to T/W. T[facility]W [facility] then [facility] Continue to monitor for d/c needs.
[2021-10-26] MEDS: amLODIPine Besylate 5 MG TABLET PO (09:29)
[2021-10-26] MEDS: Mirabegron 25 MG TAB.ER.24H PO (09:29)
[2021-10-26] MEDS: Metoprolol Succinate ER 25 MG TAB.ER.24H PO (09:29)
[2021-10-26] MEDS: hydroCHLOROthiazide 12.5 MG TABLET PO (09:29)
[2021-10-26] MEDS: Aspirin Enteric Coated 81 MG TABLET.DR PO (09:30)
[2021-10-26] MEDS: Atorvastatin Calcium 80 MG TABLET PO (09:30)
[2021-10-26] MEDS: Multivitamin TABLET 1 TAB PO (09:30)
[2021-10-26] MEDS: Donepezil HCl 5 MG TABLET PO (09:30)
[2021-10-26 09:32] VITALS: BP 107/57; PULSE 78
[2021-10-26] MEDS: Ipratropium Bromide Nas 0.03 % 30 ML SPRAY 2 SPRAY NOSTRIL-B ×2 (10:13→21:44)
[2021-10-26] MEDS: Valsartan 80 MG TABLET PO (10:13)
--- NOTE | 2021-10-26 13:12 | PC.NURSE ---
pt a&ox3, resting comfortably, no concerns, POC was 141, no insulin needed per sliding scale. will continue to monitor.
[2021-10-26 13:18] LABS: Glucose, Whole Blood 141 mg/dL (60-115)
[2021-10-26 16:59] LABS: Glucose, Whole Blood 198 mg/dL (60-115)
[2021-10-26 21:07] LABS: Glucose, Whole Blood 242 mg/dL (60-115)
[2021-10-26] MEDS: Acetaminophen 325 MG TABLET 650 MG PO (21:13)
[2021-10-26] MEDS: Baclofen 10 MG TABLET PO (21:13)
[2021-10-26] MEDS: Omeprazole 20 MG CAPSULE.DR PO (21:13)
[2021-10-26] MEDS: Insulin Glargine,Hum.rec.anlog 100 UNIT/ML 10 ML VIAL 40 UNIT SUBCUT (21:13)
[2021-10-26] MEDS: QUEtiapine Fumarate 25 MG TABLET PO (21:14)
[2021-10-26 22:00] VITALS: BP 126/64; PULSE 82; RESP 16; TEMP 36.7; O2SAT 98
[2021-10-27 00:41] VITALS: PULSE 71; RESP 14; O2SAT 96
--- NOTE | 2021-10-27 06:19 | PC.NURSE ---
See downtime chart for notes and vital signs from downtime. Natalia has remained asleep all night, occasionally waking to ambulate to and from the bathroom. She has no complaints: no chest pain, no SOB, no nausea or vomiting. She has taken PO food and fluids without difficulty. She awaits placement from case mgmt.
[2021-10-27 07:09] LABS: Glucose, Whole Blood 163 mg/dL (60-115)
[2021-10-27] MEDS: Insulin Lispro 100 UNIT/ML 3 ML VIAL SUBCUT ×2 (07:26→19:30)
[2021-10-27 07:32] VITALS: BP 113/64; PULSE 78; RESP 16; TEMP 36.7; O2SAT 100
--- NOTE | 2021-10-27 07:35 | PC.NURSE ---
Pt A&Ox3, no complaints of pain at this time. Ambulates throughout department independently. Eating breakfast at this time, insulin given. LCA, VS as charted, call sandra within reach. Will continue to monitor.
--- NOTE | 2021-10-27 08:44 | MHC.CM.ED ---
Addendum entered by Whitley Martin 10/27/21 09:53: Left message for Jairo at [phone] and sister Stephanie at [phone] to discuss discharge planning and to notify them the closest facility looking at patient was about an hour away. Left messages requesting return telephone calls. Addendum entered by Whitley Martin 10/27/21 09:40: Referral also sent to facilities still following patient: [facility]. Original Note: Patient remains in ER. Additional bank states and information for [employer] application provided from Iona in financial counseling and uploaded into [employer]. Provided to [facility]. Continue to monitor for d/c needs.
[2021-10-27] MEDS: Donepezil HCl 5 MG TABLET PO (09:00)
[2021-10-27] MEDS: Multivitamin TABLET 1 TAB PO (09:00)
[2021-10-27] MEDS: amLODIPine Besylate 5 MG TABLET PO (09:00)
[2021-10-27] MEDS: Aspirin Enteric Coated 81 MG TABLET.DR PO (09:00)
[2021-10-27] MEDS: Atorvastatin Calcium 80 MG TABLET PO (09:00)
[2021-10-27] MEDS: hydroCHLOROthiazide 12.5 MG TABLET PO (09:00)
[2021-10-27] MEDS: Metoprolol Succinate ER 25 MG TAB.ER.24H PO (09:00)
[2021-10-27] MEDS: Mirabegron 25 MG TAB.ER.24H PO (09:01)
[2021-10-27] MEDS: Valsartan 80 MG TABLET PO (09:01)
[2021-10-27] MEDS: Ipratropium Bromide Nas 0.03 % 30 ML SPRAY 2 SPRAY NOSTRIL-B ×2 (09:01→21:40)
--- NOTE | 2021-10-27 11:49 | PC.NURSE ---
patient currently sleeping, respiratory rate 18, call sandra within reach, will continue to monitor.
[2021-10-27 13:33] LABS: Glucose, Whole Blood 148 mg/dL (60-115)
--- NOTE | 2021-10-27 13:34 | MHC.CM.ED ---
Attempted to meet to patient's Jairo via telephone again. No answer. Spoke with patient's sister, Stephanie via telephone at [phone]. They will be taking patient home but is asking for time to get services for patient. T/W explained patient would have to be d/c'd by tomorrow 10/28 at noon. T/W also explained a snow storm was expected, but patient would still be expected to be discharged. Stephanie verbalized understanding and will call T/W to confirm a d/c time tomorrow. Continue to monitor for d/c needs.
--- NOTE | 2021-10-27 14:06 | PC.NURSE ---
pt a&ox3, resting quietly, lunch arrived, no insulin coverage needed, pt reporting increased pain in neck and shoulder and is requesting prn baclofen, will continue to monitor, per CM plan is to d/c pt by 10/28.
[2021-10-27] MEDS: Baclofen 10 MG TABLET PO (15:16)
[2021-10-27 19:19] LABS: Glucose, Whole Blood 290 mg/dL (60-115)
--- NOTE | 2021-10-27 19:19 | PC.NURSE ---
pt a&ox3, vss, resting comfortably, POC 290, plan to d/c home , will continue to monitor tomorrow
--- NOTE | 2021-10-27 19:31 | PC.NURSE ---
patients dinner just arrived, pt medicated with insulin per order
[2021-10-27 19:32] VITALS: BP 115/59; PULSE 77; RESP 19; TEMP 36.7; O2SAT 96
[2021-10-27 21:22] LABS: Glucose, Whole Blood 217 mg/dL (60-115)
[2021-10-27] MEDS: Omeprazole 20 MG CAPSULE.DR PO (21:39)
[2021-10-27] MEDS: QUEtiapine Fumarate 25 MG TABLET PO (21:39)
[2021-10-27] MEDS: Insulin Glargine,Hum.rec.anlog 100 UNIT/ML 10 ML VIAL 40 UNIT SUBCUT (21:39)
--- NOTE | 2021-10-27 21:40 | PC.NURSE ---
patient medicated per order, pt ambulated with steady gait to bathroom, will continue to monitor.
[2021-10-28 07:32] VITALS: BP 126/59; PULSE 91; RESP 14; TEMP 36.5; O2SAT 97
--- NOTE | 2021-10-28 07:35 | PC.NURSE ---
pt is a/o x 3 no sob/shane noted skin pink warm dry speaks in full sentences. pt aware of plan of care for d/c home with today.
[2021-10-28 07:39] LABS: Glucose, Whole Blood 223 mg/dL (60-115)
[2021-10-28] MEDS: Insulin Lispro 100 UNIT/ML 3 ML VIAL SUBCUT (07:46)
[2021-10-28] MEDS: Baclofen 10 MG TABLET PO (09:05)
[2021-10-28] MEDS: Acetaminophen 325 MG TABLET 650 MG PO (09:06)
[2021-10-28] MEDS: Multivitamin TABLET 1 TAB PO (09:07)
[2021-10-28] MEDS: amLODIPine Besylate 5 MG TABLET PO (09:07)
[2021-10-28] MEDS: Donepezil HCl 5 MG TABLET PO (09:07)
[2021-10-28] MEDS: Aspirin Enteric Coated 81 MG TABLET.DR PO (09:08)
[2021-10-28] MEDS: hydroCHLOROthiazide 12.5 MG TABLET PO (09:08)
[2021-10-28] MEDS: Atorvastatin Calcium 80 MG TABLET PO (09:08)
[2021-10-28] MEDS: Valsartan 80 MG TABLET PO (09:08)
[2021-10-28] MEDS: Metoprolol Succinate ER 25 MG TAB.ER.24H PO (09:08)
[2021-10-28] MEDS: Mirabegron 25 MG TAB.ER.24H PO (09:09)
[2021-10-28] MEDS: Ipratropium Bromide Nas 0.03 % 30 ML SPRAY 2 SPRAY NOSTRIL-B (09:10)
--- NOTE | 2021-10-28 09:32 | MHC.CM.ED ---
T/w spoke with patient's sister Stephanie via telephone at [phone]. [facility]airo will be at the ER around noon to transport [facility] home[facility] Patient, Stephanie Gill Samantha VACUUM FORM OPERATOR aware. Continue to mointor for d/c needs.
--- NOTE | 2021-11-03 07:44 | MHC.CM.ED ---
Patient was d/c'd from ER on 10/28. No VNA agency has been able to be secured. Patient will need to go through PCP's office for this.
== END 2021-10-28 10:46 | disposition home or self-care (01) ==
PROVIDERS: Physician Assistant; Physician Assistant Medical; Emergency Provider Emergency Medicine; PCP Internal Medicine
DX: E11.65 Type 2 diabetes mellitus with hyperglycemia (principal); Z79.4 Long term (current) use of insulin; G31.83 Neurocognitive disorder with Lewy bodies; F02.80 Dementia in other diseases classified elsewhere, unspecified severity, without behavioral disturbance, psychotic disturbance, mood disturbance, and anxiety; R41.82 Altered mental status, unspecified; Z79.899 Other long term (current) drug therapy
CPT/HCPCS: 36415; 80053; 81001; 82947; 83735; 83880; 85025; 96360; 96372; 99285; J2060

== ENCOUNTER 2021-11-10 16:08 | Outpatient (REF) | payer MEDICARE, SELFPAY ==
--- NOTE | ~2021-11-10 | XR_ITS ---
EXAMINATION: XR ANKLE, RIGHT CLINICAL INFORMATION: Pain ankle and foot. COMPARISON: Radiographs right foot 07/10/2018, right ankle 09/15/2015 TECHNIQUE: Right ankle is imaged in 3 views. FINDINGS: There is no acute or healing fracture, dislocation, destructive process. The ankle mortise is symmetric and the malleoli appear intact. There is no visible ankle capsular effusion. The talar dome shows no osteochondral lesion. The retrocalcaneal recess is preserved. Subtalar joint is unremarkable. There are small posterior and moderate plantar calcaneal spurs. Old posttraumatic changes again noted first tarsal metatarsal joint. XR/XR ankle RT min 3V IMPRESSION: 1. Unremarkable ankle. Posterior and plantar calcaneal spurs. 2. Old posttraumatic changes first tarsal metatarsal joint.
== END 2021-11-10 16:09 | disposition home or self-care (01) ==
LOC: HO.XRAY 16:08
PROVIDERS: PCP Internal Medicine; Visit Provider Internal Medicine
DX: M25.571 Pain in right ankle and joints of right foot (principal)
CPT/HCPCS: 73610

== ENCOUNTER 2021-11-15 14:55 | Inpatient (IN) | payer MEDICARE, OTHER, SELFPAY ==
--- NOTE | ~2021-11-15 | XR_ITS ---
EXAMINATION: XR CHEST CLINICAL INFORMATION: Acute mental status change COMPARISON: Previous chest x-ray September 2021 TECHNIQUE: Frontal view of the chest was obtained. FINDINGS: The cardiac and mediastinal contours are stable. The lungs are clear. There is no pleural effusion or pneumothorax. There is orthopedic hardware in the proximal thoracic spine. There is an old trauma to the right shoulder. XR/XR chest 1V IMPRESSION: No evidence for acute disease in the chest.
--- NOTE | ~2021-11-15 | CT_ITS ---
EXAMINATION: CT HEAD WITHOUT CONTRAST CLINICAL INFORMATION: Altered mental status for 2 days. COMPARISON: CT head 09/18/2021 TECHNIQUE: Contiguous axial imaging was performed from the skull base to vertex without intravenous administration of contrast. Coronal and sagittal reformatted images are performed at CT scanner This CT examination was performed using dose optimization techniques as appropriate, variously including the following: *Automated exposure control *Adjustment of mA and/or kV according to patient size (this includes techniques or standardized protocols for targeted exams where dose is matched to indication/reason for exam; i.e. extremities or head) *Use of iterative reconstruction technique DLP: 771 mGy-cm FINDINGS: Focal encephalomalacia from old infarcts in the right and left occipital lobes unchanged since prior study. Stable old infarct left superior cerebellar hemisphere. There is generalized global volume loss. There is moderate prominence of the ventricles and the sulci . There is mild hypodensity of the periventricular white matter due to chronic small vessel ischemic disease. There are vascular calcifications of the internal carotid arteries bilaterally. There is no evidence of acute intracranial hemorrhage or acute territorial infarction. No abnormal mass effect or midline shift is seen. [place] to white matter differentiation is well preserved. No extra-axial fluid collections are identified. The osseous structures and soft tissues are normal. The mastoid air cells and visualized portions of the paranasal sinuses are well aerated. CT/CT head/brain wo con IMPRESSION: No acute intracranial pathology.
[2021-11-15 15:23] VITALS: BP 146/56; PULSE 58; RESP 20; TEMP 36.7; O2SAT 98
[2021-11-15 15:27] VITALS: BMI 39.6
--- NOTE | 2021-11-15 15:35 | ECG_ITS ---
Test Reason : ams Blood Pressure : / mmHG Vent. Rate : 059 BPM Atrial Rate : 059 BPM P-R Int : 110 ms QRS Dur : 094 ms QT Int : 422 ms P-R-T Axes : -28 045 013 degrees QTc Int : 417 ms Sinus bradycardia with short SC Otherwise normal ECG When compared with ECG of 19-SEP-2021 10:12, No significant change was found Referred By: Che Yin Electronically Signed By:BAIRON IVY
[2021-11-15 16:22] LABS: Ethanol < 10 mg/dL
[2021-11-15 16:23] LABS: COVID-19 Test Negative (Negative)
[2021-11-15 16:26] LABS: Acetaminophen LAB 13 mcg/mL (<30); Alanine Aminotransferase 170 U/L (0-31); Albumin Level 3.8 g/dL (3.5-5.0); Alkaline Phosphatase 132 U/L (39-117); Anion Gap 12 (12-20); Aspartate Amino Transferase 48 U/L (5-31); Bilirubin Direct 0.2 mg/dL (0.0-0.5); Bilirubin Total 0.2 mg/dL (0.0-1.0); Blood Urea Nitrogen 28 mg/dL (9-16); Calcium 9.3 mg/dL (8.4-10.2); Carbon Dioxide 23 mmol/L (22-29); Chloride 110 mmol/L (96-108); Creatinine Clr Calc Pharmacy 64.9; Estimated Glomerular Filt Rate > 60; Glucose Random 233 mg/dL (60-115); Magnesium 1.8 mg/dL (1.6-2.6); Potassium 4.2 mmol/L (3.3-5.1); Salicylate < 5.0 mg/dL (15-30); Sodium 141 mmol/L (135-145); Total Protein 6.4 g/dL (6.5-8.0)
[2021-11-15 16:31] LABS: B Type Natriuretic Peptide 65 pg/mL (<100); Troponin-I High Sensitivity < 3.5 ng/L (<3.5-17.0)
[2021-11-15 16:36] LABS: Appearance Urine CLEAR; Color Urine YELLOW; Glucose Urine UA NEG (NEG); Leukocyte Esterase Urine NEG (NEG); Nitrite Urine NEG (NEG); PH 5.5 (5.0-8.0); Specific Gravity - Urine 1.025 (1.005-1.025); Urine Blood NEG (NEG); Urine Ketones NEG (NEG); Urine Protein NEG (NEG-TRACE)
--- NOTE | 2021-11-15 16:38 | ED_ITS ---
HPI - Altered Mental Status General Chief Complaint: Altered Mental Status Stated Complaint: AMS,? OWN MEDS PER EMS Time Seen by Provider: 11/15/21 15:14 Source: patient and EMS Mode of arrival: EMS History of Present Illness HPI narrative: 65-year-old female with a past medical history of diabetes, Lewy body dementia with behavioral disturbance, anxiety, asthma, CHF, encephalopathy, HTN, obesity, restrictive lung disease, BIBA for increased AMS over the past 2 days. Per EMS suspicion that patient took wrong medications, apparently patient is in control of her own meds, reportedly also found empty bottle of oxycodone. History limited due to patient's acute mental status and chronic dementia. Unable to get in contact with MD complaint: altered mental status Onset (ago): day(s) Related Data Home Medications Medication Instructions Recorded Confirmed amlodipine 5 mg tablet 1 tab PO DAILY 08/06/21 11/15/21 aspirin 81 mg tablet,delayed 1 tab PO QAM 08/06/21 11/15/21 release atorvastatin 80 mg tablet 1 tab PO DAILY 08/06/21 11/15/21 baclofen 10 mg tablet 1 tab PO TID PRN 08/06/21 11/15/21 donepezil 5 mg tablet 1 tab PO DAILY 08/06/21 11/15/21 hydrochlorothiazide 12.5 mg capsule 1 cap PO DAILY 08/06/21 11/15/21 insulin glargine 100 unit/mL (3 40 unit SUBCUT BEDTIME 08/06/21 11/15/21 mL) subcutaneous pen (Lantus Solostar U-100 Insulin) insulin lispro 100 unit/mL 0 sliding scale dose SUBCUT TIDAC 08/06/21 11/15/21 subcutaneous pen (Humalog KwikPen (U-100) Insulin) ipratropium bromide 21 mcg (0.03 2 spray INTRANASAL BID 08/06/21 11/15/21 %) nasal spray meclizine 25 mg tablet 1 tab PO BID PRN 08/06/21 11/15/21 metoprolol succinate 25 mg 1 tab PO DAILY 08/06/21 11/15/21 tablet,extended release 24 hr mirabegron 25 mg tablet,extended 1 tab PO DAILY 08/06/21 11/15/21 release 24 hr (Myrbetriq) pantoprazole 40 mg tablet,delayed 1 tab PO BEDTIME 08/06/21 11/15/21 release quetiapine 25 mg tablet 25 mg PO BEDTIME 08/06/21 11/15/21 valsartan 80 mg tablet 1 tab PO DAILY 08/06/21 11/15/21 bromfenac 0.07 % eye drops 1 drp OPHTHALMIC (EYE) BEDTIME PRN 09/19/21 11/15/21 (Prolensa) multivitamin 1 tab PO QAM 09/19/21 11/15/21 polyethylene glycol 3350 17 17 g PO DAILY PRN 09/19/21 11/15/21 gram/dose oral powder (ClearLax) acetaminophen 300 mg-codeine 30 mg 1 tab PO Q8H PRN 11/15/21 11/15/21 tablet Allergies Allergy/AdvReac Type Severity Reaction Status Date / Time Sulfa (Sulfonamide Allergy Severe DIFFICULTY Verified 09/27/21 13:12 Antibiotics) BREATHING [SULFA (SULFONAMIDE ANTIBIOTICS)] cephalexin [From KEFLEX] Allergy Intermediate RASH,HIVES Verified 09/27/21 13:12 amoxicillin [AMOXICILLIN] Allergy Unknown DENIES Verified 09/27/21 13:12 THIS ALLERGY 03/28/2018 penicillin V Allergy Unknown Unknown Verified 09/27/21 13:12 sumatriptan [From IMITREX] AdvReac Severe HEART Verified 09/27/21 13:12 PALPITATIONS topiramate [From TOPAMAX] AdvReac Severe AGITATION Verified 09/27/21 13:12 Review of Systems Review of Systems: Unable to obtain ROS due to patient's acute mental status and chronic dementia Yes all other systems are reviewed and are negative PMFSH Past Medical History Attestation statement: The following information was validated with the patient. 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 Mother Angina at rest Sister Lung cancer Colon cancer COPD (chronic obstructive pulmonary disease) Social History Social History Household Members: Spouse Housing: Unknown / Unable to assess Unable to assess alcohol history related to: Unable to respond Alcohol intake: never Patient Tobacco Use Status: Never used Tobacco e-Cigarette/Vaping Use: Never Used Second Hand Smoke Exposure: No Advance Directives: Yes Advance Directives on File: Yes Advance Directives Date on File: 07/27/20 service: No Current occupational status: disabled Current occupation: right handed Sexual orientation: Straight/Heterosexual Physical Exam ED Vital Signs: Vital Signs - 24 hr 11/15/21 15:23 11/15/21 17:52 Temperature 98.0 F 97.6 F Pulse Rate 58 67 Respiratory Rate 20 18 Blood Pressure 146/56 H 149/75 H Pulse Oximetry 98 100 BMI result Body Mass Index 39.6 Const Other: Alert to voice General: lethargic Orientation/consciousness: oriented to person, oriented to place and lethargic Limitations: altered mental status HENMT Head: Yes normal to inspection and Yes atraumatic Ears: hearing grossly normal bilaterally General nose exam: Normal external nose present Face and sinus: Yes normal facial exam Eyes General: appearance normal, both eyes and all related structures Pupils: Equal, round and reactive pupils present and Dilated pupils Neck Neck: Yes normal visual inspection and Yes no meningeal signs Resp Effort & Inspection: normal respiratory effort and no respiratory distress Auscultation: clear to auscultation bilaterally Cardio Rate: regular rate Heart sounds: S1 normal heart sound present and S2 normal heart sound present GI Inspection: Yes normal to inspection Palpation (GI): Soft to palpation, nontender, no guarding and not rigid Skin Rashes: no rashes Wounds: no wounds Neuro Other: Lethargic, alert to voice, not answering questions, repeating same words General: oriented to person, oriented to place, tone normal and no meningeal signs Cranial nerves: Yes Equal, round and reactive pupils present Gait exam (Neuro): Normal gait present Extrem General: Yes normal to inspection Course Course Course Narrative: -1639--no leukocytosis. BUN acute on chronically elevated to 28. AST 48 & ALT 170 acutely elevated. Alk-phos 132 -troponin negative -UA negative XR chest 1V IMPRESSION: No evidence for acute disease in the chest. CT head/brain wo con IMPRESSION: No acute intracranial pathology. -tox screen positive for opiates, fentanyl, and acetaminophen level of 13 1736-- Left messages on patient's number, just received phone call back and he reports patient filled Tylenol No. 3 prescription with 20 pills 3 days ago and bottle was found empty today. states he leaves all of patient's medications within arms reach at her bedside. Unclear when or what patient took > per [facility] 20 pills were filled on 11/10/21 -spoke to poison Control recommended initiating N-acetylcysteine giving 1st dose over 2 hours, followed by the subsequent doses at normal rate. Plan will be to admit for further management MDM - Altered Mental Status MDM Narrative Medical decision making narrative: 65-year-old female with a past medical history of diabetes, Lewy body dementia with behavioral disturbance, anxiety, asthma, CHF, encephalopathy, HTN, obesity, restrictive lung disease, BIBA for increased AMS over the past 2 days. On exam vital signs stable, lethargic, alert, no evidence of trauma. Concern for mixing medications/accidental overdose. Rule out metabolic and infectious etiologies. Lower concern for CVA Plan: EKG, labs, UA, CXR, head CT, tox screen Medical Records Attestation: I reviewed the patient's medical records. Lab Data Attestation: I reviewed the patient's lab results. Result diagrams: 11/15/21 16:01 Labs: Lab Results 11/15/21 11/15/21 11/15/21 Range/Units 16:01 16:01 16:01 VBG pH (7.32-7.43) VBG pCO2 mmHg VBG pO2 mmHg VBG HCO3 (22-26) mmol/L VBG O2 Saturation % VBG Base Excess mmol/L Sodium 141 (135-145) mmol/L Potassium 4.2 (3.3-5.1) mmol/L Chloride 110 H (96-108) mmol/L Carbon Dioxide 23 (22-29) mmol/L Anion Gap 12 (12-20) BUN 28 H (9-16) mg/dL Creatinine 0.86 (0.5-1.4) mg/dL Estim Creat Clear Calc 64.9 Estimated GFR > 60 Random Glucose 233 H (60-115) mg/dL Calcium 9.3 (8.4-10.2) mg/dL Magnesium 1.8 (1.6-2.6) mg/dL Total Bilirubin 0.2 (0.0-1.0) mg/dL Direct Bilirubin 0.2 (0.0-0.5) mg/dL AST 48 H D (5-31) U/L ALT 170 H (0-31) U/L Alkaline Phosphatase 132 H D (39-117) U/L Troponin I High Sens < 3.5 D (<3.5-17.0) ng/L B-Natriuretic Peptide 65 (<100) pg/mL Total Protein 6.4 L (6.5-8.0) g/dL Albumin 3.8 (3.5-5.0) g/dL Urine Color Urine Appearance Urine pH (5.0-8.0) Ur Specific [place] (1.005-1.025) Urine Protein (NEG-TRACE) MG/DL Urine Glucose (UA) (NEG) MG/DL Urine Ketones (NEG) MG/DL Urine Blood (NEG) Urine Nitrite (NEG) Ur Leukocyte Esterase (NEG) Salicylates < 5.0 L (15-30) mg/dL Urine Opiates Screen (Not Detect) Urine Fentanyl Screen (Not Detect) Acetaminophen 13 (<30) mcg/mL Ur Barbiturates Screen (Not Detect) Ur Phencyclidine Scrn (Not Detect) Ur Amphetamines Screen (Not Detect) U Benzodiazepines Scrn (Not Detect) Urine Cocaine Screen (Not Detect) U Marijuana (THC) Screen (Not Detect) Ethyl Alcohol < 10 mg/dL COVID-19 (FLOR) (Negative) COVID-19 Clin Com 11/15/21 11/15/21 11/15/21 Range/Units 16:01 16:23 16:23 VBG pH (7.32-7.43) VBG pCO2 mmHg VBG pO2 mmHg VBG HCO3 (22-26) mmol/L VBG O2 Saturation % VBG Base Excess mmol/L Sodium (135-145) mmol/L Potassium (3.3-5.1) mmol/L Chloride (96-108) mmol/L Carbon Dioxide (22-29) mmol/L Anion Gap (12-20) BUN (9-16) mg/dL Creatinine (0.5-1.4) mg/dL Estim Creat Clear Calc Estimated GFR Random Glucose (60-115) mg/dL Calcium (8.4-10.2) mg/dL Magnesium (1.6-2.6) mg/dL Total Bilirubin (0.0-1.0) mg/dL Direct Bilirubin (0.0-0.5) mg/dL AST (5-31) U/L ALT (0-31) U/L Alkaline Phosphatase (39-117) U/L Troponin I High Sens (<3.5-17.0) ng/L B-Natriuretic Peptide (<100) pg/mL Total Protein (6.5-8.0) g/dL Albumin (3.5-5.0) g/dL Urine Color YELLOW Urine Appearance CLEAR Urine pH 5.5 (5.0-8.0) Ur Specific [place] 1.025 (1.005-1.025) Urine Protein NEG (NEG-TRACE) MG/DL Urine Glucose (UA) NEG (NEG) MG/DL Urine Ketones NEG (NEG) MG/DL Urine Blood NEG (NEG) Urine Nitrite NEG (NEG) Ur Leukocyte Esterase NEG (NEG) Salicylates (15-30) mg/dL Urine Opiates Screen POSITIVE H (Not Detect) Urine Fentanyl Screen POSITIVE H (Not Detect) Acetaminophen (<30) mcg/mL Ur Barbiturates Screen Not Detected (Not Detect) Ur Phencyclidine Scrn Not Detected (Not Detect) Ur Amphetamines Screen Not Detected (Not Detect) U Benzodiazepines Scrn Not Detected (Not Detect) Urine Cocaine Screen Not Detected (Not Detect) U Marijuana (THC) Screen Not Detected (Not Detect) Ethyl Alcohol mg/dL COVID-19 (FLOR) Negative (Negative) COVID-19 Clin Com See Note 11/15/21 Range/Units 17:53 VBG pH 7.36 (7.32-7.43) VBG pCO2 41 mmHg VBG pO2 41 mmHg VBG HCO3 23 (22-26) mmol/L VBG O2 Saturation 65.0 % VBG Base Excess -1.3 mmol/L Sodium (135-145) mmol/L Potassium (3.3-5.1) mmol/L Chloride (96-108) mmol/L Carbon Dioxide (22-29) mmol/L Anion Gap (12-20) BUN (9-16) mg/dL Creatinine (0.5-1.4) mg/dL Estim Creat Clear Calc Estimated GFR Random Glucose (60-115) mg/dL Calcium (8.4-10.2) mg/dL Magnesium (1.6-2.6) mg/dL Total Bilirubin (0.0-1.0) mg/dL Direct Bilirubin (0.0-0.5) mg/dL AST (5-31) U/L ALT (0-31) U/L Alkaline Phosphatase (39-117) U/L Troponin I High Sens (<3.5-17.0) ng/L B-Natriuretic Peptide (<100) pg/mL Total Protein (6.5-8.0) g/dL Albumin (3.5-5.0) g/dL Urine Color Urine Appearance Urine pH (5.0-8.0) Ur Specific [place] (1.005-1.025) Urine Protein (NEG-TRACE) MG/DL Urine Glucose (UA) (NEG) MG/DL Urine Ketones (NEG) MG/DL Urine Blood (NEG) Urine Nitrite (NEG) Ur Leukocyte Esterase (NEG) Salicylates (15-30) mg/dL Urine Opiates Screen (Not Detect) Urine Fentanyl Screen (Not Detect) Acetaminophen (<30) mcg/mL Ur Barbiturates Screen (Not Detect) Ur Phencyclidine Scrn (Not Detect) Ur Amphetamines Screen (Not Detect) U Benzodiazepines Scrn (Not Detect) Urine Cocaine Screen (Not Detect) U Marijuana (THC) Screen (Not Detect) Ethyl Alcohol mg/dL COVID-19 (FLOR) (Negative) COVID-19 Clin Com Critical Care Time Critical Care Time Critical Care Time: Yes Total Critical Care Time: 35 Attestation: I have personally provided critical care time exclusive of time spent on separately billable procedures. Time includes review of lab data, radiology results, discussion with consultants, and monitoring for potential decompensation. Intervention performed as documented. Discharge Plan Discharge Clinical Impression: Tylenol overdose, AMS (altered mental status) Patient Disposition: Admitted As Inpatient
[2021-11-15 16:56] LABS: Amphetamine Screen Urine Not Detected (Not Detect); Barbiturates, Urine Not Detected (Not Detect); Benzodiazepines Screen Urine Not Detected (Not Detect); Cannabinoid Screen Urine Not Detected (Not Detect); Cocaine Screen Urine Not Detected (Not Detect); Fentanyl, urine POSITIVE (Not Detect); Opiate Screen Urine POSITIVE (Not Detect); Phencyclidine Screen Urine Not Detected (Not Detect)
--- NOTE | 2021-11-15 17:49 | PHA.MEDREC ---
Pharmacy Consult ? Medication Reconciliation Pharmacy has completed the medication reconciliation. Pt unable to provide med history spoke with pt's
[2021-11-15 17:52] VITALS: BP 149/75; PULSE 67; RESP 18; TEMP 36.4; O2SAT 100
[2021-11-15] MEDS: Naloxone HCl 0.4 MG/ML VIAL IVPUSH (17:58)
[2021-11-15 18:00] LABS: VBG Base Excess -1.3 mmol/L; VBG HCO3 23 mmol/L (22-26); VBG pCO2 41 mmHg; VBG pH 7.36 (7.32-7.43); VBG pO2 41 mmHg
[2021-11-15 18:03] LABS: Ammonia 21 umol/L (13-55); Venous Blood Gas Refer to POC result
[2021-11-15 18:25] LABS: MANUAL DIFF FLAG NO
[2021-11-15 18:55] LABS: Basophils Percent Auto 0.5 % (0-2); Eosinophils Absolute Auto 0.3 X10*3/uL (0.0-0.4); Hematocrit 37.7 % (37.0-47.0); Hemoglobin 11.9 g/dl (12.0-16.0); Imm Gran Abs Auto 0.04 X10*3/uL (0.00-0.03); Imm Gran Pct Auto 0.5 % (0.0-0.4); Lymphocytes Absolute Auto 2.7 X10*3/uL (1.2-4.9); Lymphocytes Percent Auto 36.4 % (20-40); Mean Corpuscular HGB Conc 31.6 g/dl (31.0-35.0); Mean Corpuscular Hemoglobin 31.6 pg (27.0-33.0); Mean Corpuscular Volume 100.3 fL (80.0-98.0); Mean Platelet Volume 9.7 fL (9.4-12.3); Monocytes Absolute Auto 0.6 X10*3/uL (0.1-1.2); Monocytes Percent Auto 8.4 % (2-11); Neutrophils Absolute Auto 3.7 x10*3/uL (2.0-8.3); Neutrophils Percent Auto 50.2 % (45-73); Platelet Count 213 X10*3/uL (160-400); Red Blood Count 3.76 X10*6/uL (4.20-5.50); Red Cell Distribution Width 14.2 % (11.0-16.0); White Blood Count 7.3 X10*3/uL (4.8-10.8)
[2021-11-15 19:10] VITALS: BP 138/44; PULSE 71; RESP 11; TEMP 36.8; O2SAT 100
--- NOTE | 2021-11-15 19:31 | PC.NURSE ---
PT removed IV from her arm that was infusing acetylcysteine. PT continues to deny that she took any pills or Tylenol and insisting that she does not need any medication or treatment.
[2021-11-15 20:02] LABS: Cholesterol 115 mg/dL; HDL Cholesterol 38 mg/dL; LDL Cholesterol Calculated 60 mg/dl; Triglycerides 85 mg/dL
--- NOTE | 2021-11-15 20:33 | PC.NURSE ---
This RN discussed a plan to reinsert IV. Plan made for PT to take prescribed night time meds so the PT might be able to calm down and agree to treatment. This RN attempted to give meds but PT is adamantly refusing any meds or treatment at this time. Hospitalist met with PT; PT continued to maintain her same position during discussion with provider.
--- NOTE | 2021-11-15 21:31 | PM.IMHP ---
History of Present Illness Date of Service: 11/15/21 Chief Complaint: Drug overdose 65-year-old female with a past medical history of hypertension, hyperlipidemia, diabetes, CHF, restrictive lung disease, UTI, history of encephalopathy, dementia, obesity, history of bradycardia; presented to the hospital today with a chief complaint of confusion. patient is alert and awake, lying comfortably in the bed; response to verbal commands but fixated on thoughts; denies any pain. Denies any fever chills cough. Spoke to the patient's Ant was as care proxy mentioned that over the past 2 days patient has not been herself, noted to be more confused than her baseline; mentioned that she had a bottle of oxycodone/ Tylenol tablets about 20 which were refilled about 3 days ago and she is supposed to take 1 every 8 hours; and today he noted that her pill bottle is empty. Concern for possible overdose and presumed she probably took it the night before. As she was noted to be more confused than her baseline he call EMS and brought her to the hospital for further evaluation. Denies patient having any signs of fever cough chills or urinary symptoms. Denies patient complaining of any pain. Review of all other systems is negative except mentioned above ER course: Per ER team patient probably overdose on Tylenol/ oxycodone; barboza currently alert and awake; Tylenol level noted to be 13 and on labs noted to have elevated liver enzymes. Poison Control was consulted who suggested to start the patient on NAC protocol. Admitted to the hospital for further management. 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 Mother Angina at rest Sister Lung cancer Colon cancer COPD (chronic obstructive pulmonary disease) Surgical History History of appendectomy History of arthroscopy of both knees History of hysterectomy History of pancreatic surgery Social History Household Members: Spouse Housing: Unknown / Unable to assess Unable to assess alcohol history related to: Unable to respond Alcohol intake: never Patient Tobacco Use Status: Never used Tobacco e-Cigarette/Vaping Use: Never Used Second Hand Smoke Exposure: No Advance Directives: Yes Advance Directives on File: Yes Advance Directives Date on File: 07/27/20 service: No Current occupational status: disabled Current occupation: right handed Sexual orientation: Straight/Heterosexual Meds Allergies Allergy/AdvReac Type Severity Reaction Status Date / Time Sulfa (Sulfonamide Allergy Severe DIFFICULTY Verified 09/27/21 13:12 Antibiotics) BREATHING [SULFA (SULFONAMIDE ANTIBIOTICS)] cephalexin [From KEFLEX] Allergy Intermediate RASH,HIVES Verified 09/27/21 13:12 amoxicillin [AMOXICILLIN] Allergy Unknown DENIES Verified 09/27/21 13:12 THIS ALLERGY 03/28/2018 penicillin V Allergy Unknown Unknown Verified 09/27/21 13:12 sumatriptan [From IMITREX] AdvReac Severe HEART Verified 09/27/21 13:12 PALPITATIONS topiramate [From TOPAMAX] AdvReac Severe AGITATION Verified 09/27/21 13:12 Active Medications: Current Medications Amlodipine Besylate (Amlodipine Besylate 5 Mg Tablet) 5 mg PO DAILY FRANCHESKA; Protocol Aspirin (Aspirin Enteric Coated 81 Mg Tablet.Dr) 81 mg PO DAILY FR[facility]CHESKA Baclofen (Baclofen 10 Mg Tablet) 10 mg PO TID PRN PRN Reason: Muscle Spasm Donepezil HCl (Donepezil Hcl 5 Mg Tablet) 5 mg PO BEDTIME FR[place]CHESKA Insulin Glargine (Insulin Glargine,Hum.Rec.Anlog 100 Unit/Ml 10 Ml Vial) 20 unit SUBCUT BEDTIME FR[place]KA Insulin Human Lispro (Insulin Lispro 100 Unit/Ml 3 Ml Vial) 0 unit SUBCUT TIDAC FRANCHESKA; Protocol Ipratropium [place] (Ipratropium [place] Isaiah 0.03 % 30 Ml Sharon) 2 spray NOSTRIL-B BID FRANCHESKA Meclizine HCl (Meclizine Hcl 25 Mg Tablet) 25 mg PO BID PRN PRN Reason: Dizziness Melatonin (Melatonin 3 Mg Tablet) 6 mg PO BEDTIME PRN PRN Reason: Insomnia Metoprolol Succinate (Metoprolol Succinate Er 25 Mg Tab.Er.24h) 25 mg PO DAILY [facility]; Protocol Mirabegron (Mirabegron 25 Mg Tab.Er.24h) 25 mg PO DAILY [facility] Multivitamins/Vitamin C (Multivitamin Tablet) 1 tab PO DAILY [facility] Non-Formulary Medication (Bromfenac [Prolensa]) 1 drop EYE-BOTH BEDTIME PRN PRN Reason: pain Omeprazole (Omeprazole 20 Mg Capsule.Dr) 20 mg PO BEDTIME [facility] Pharmacy Consult (Consult Rx Perform Med Rec) 1 each MISCELLANE ONCE PRN PRN Reason: Consult order Polyethylene Glycol (Polyethylene Glycol 3350 17 Gm Powd.Pack) 17 gm PO DAILY PRN PRN Reason: Constipation Quetiapine Fumarate (Quetiapine Fumarate 25 Mg Tablet) 25 mg PO BEDTIME [facility] Senna (Sennosides 8.6 Mg Tablet) 17.2 mg PO BEDTIME PRN PRN Reason: Constipation Sodium Chloride (0.9 % Sodium Chloride Flush 3 Ml Syringe) 3 ml IVFLUSH QSHIFT [facility] Valsartan (Valsartan 80 Mg Tablet) 80 mg PO DAILY [facility]; Protocol Home Medications Medication Instructions Recorded Confirmed Last Taken Type amlodipine 5 mg tablet 1 tab PO DAILY 08/06/21 11/15/21 Unknown History aspirin 81 mg tablet,delayed 1 tab PO QAM 08/06/21 11/15/21 Unknown History release atorvastatin 80 mg tablet 1 tab PO DAILY 08/06/21 11/15/21 Unknown History baclofen 10 mg tablet 1 tab PO TID PRN 08/06/21 11/15/21 Unknown History donepezil 5 mg tablet 1 tab PO DAILY 08/06/21 11/15/21 Unknown History hydrochlorothiazide 12.5 mg capsule 1 cap PO DAILY 08/06/21 11/15/21 Unknown History insulin glargine 100 unit/mL (3 40 unit SUBCUT BEDTIME 08/06/21 11/15/21 Unknown History mL) subcutaneous pen (Lantus Solostar U-100 Insulin) insulin lispro 100 unit/mL 0 sliding scale dose SUBCUT TIDAC 08/06/21 11/15/21 Unknown History subcutaneous pen (Humalog KwikPen (U-100) Insulin) ipratropium bromide 21 mcg (0.03 2 spray INTRANASAL BID 08/06/21 11/15/21 Unknown History %) nasal spray meclizine 25 mg tablet 1 tab PO BID PRN 08/06/21 11/15/21 Unknown History metoprolol succinate 25 mg 1 tab PO DAILY 08/06/21 11/15/21 Unknown History tablet,extended release 24 hr mirabegron 25 mg tablet,extended 1 tab PO DAILY 08/06/21 11/15/21 Unknown History release 24 hr (Myrbetriq) pantoprazole 40 mg tablet,delayed 1 tab PO BEDTIME 08/06/21 11/15/21 Unknown History release quetiapine 25 mg tablet 25 mg PO BEDTIME 08/06/21 11/15/21 Unknown History valsartan 80 mg tablet 1 tab PO DAILY 08/06/21 11/15/21 Unknown History bromfenac 0.07 % eye drops 1 drp OPHTHALMIC (EYE) BEDTIME PRN 09/19/21 11/15/21 Unknown History (Prolensa) multivitamin 1 tab PO QAM 09/19/21 11/15/21 Unknown History polyethylene glycol 3350 17 17 g PO DAILY PRN 09/19/21 11/15/21 Unknown History gram/dose oral powder (ClearLax) acetaminophen 300 mg-codeine 30 mg 1 tab PO Q8H PRN 11/15/21 11/15/21 Unknown History tablet Physical Exam Vital Signs and Narrative: Vital Signs: Last Vital Signs Temp 98.3 F 11/15/21 19:10 Pulse 71 11/15/21 19:10 Resp 11 L 11/15/21 19:10 BP 138/44 L 11/15/21 19:10 Pulse Ox 100 11/15/21 19:10 BMI result Body Mass Index 39.6 Gen: Appears be in no acute distress HEENT: NCAT, Moist mucosa. Pulmonary: Vesicular breath sounds, fair air entry CVS: Normal S1-S2 Abdomen: BS+, Soft, Nontender Extremities: Warm well perfused Neuro: Alert and awake. grossly nonfocal. No asterixis Results Labs CBC and Chem 7: 11/15/21 16:01 11/15/21 16:01 Labs: Laboratory Results - last 24 hr 11/15/21 11/15/21 11/15/21 16:01 16:01 16:01 MCV 100.3 H MCH 31.6 MCHC 31.6 RDW 14.2 Plt Count 213 MPV 9.7 Immature Gran % (Auto) 0.5 H Neut % (Auto) 50.2 Lymph % (Auto) 36.4 Grainger % (Auto) 8.4 Eos % (Auto) 4.0 Baso % (Auto) 0.5 Lymph # (Auto) 2.7 Grainger # (Auto) 0.6 Eos # (Auto) 0.3 Baso # (Auto) 0.0 Abs Immat Gran (auto) 0.04 H Absolute Neuts (auto) 3.7 Absolute Nucleated RBC 0.000 Nucleated RBC % (auto) 0.0 PT INR VBG pH VBG pCO2 VBG pO2 VBG HCO3 VBG O2 Saturation VBG Base Excess Anion Gap 12 Estim Creat Clear Calc 64.9 Estimated GFR > 60 Random Glucose 233 H Calcium 9.3 Magnesium 1.8 Total Bilirubin 0.2 Direct Bilirubin 0.2 AST 48 H D ALT 170 H Alkaline Phosphatase 132 H D Ammonia B-Natriuretic Peptide Total Protein 6.4 L Albumin 3.8 Triglycerides Cholesterol LDL Cholesterol, Calc HDL Cholesterol Urine Color Urine Appearance Urine pH Ur Specific Lawrence Urine Protein Urine Glucose (UA) Urine Ketones Urine Blood Urine Nitrite Ur Leukocyte Esterase Salicylates < 5.0 L Urine Opiates Screen Urine Fentanyl Screen Acetaminophen 13 Ur Barbiturates Screen Ur Phencyclidine Scrn Ur Amphetamines Screen U Benzodiazepines Scrn Urine Cocaine Screen U Marijuana (THC) Screen Ethyl Alcohol < 10 COVID-19 (FLOR) COVID-19 Clin Com 11/15/21 11/15/21 11/15/21 16:01 16:01 16:23 MCV MCH MCHC RDW Plt Count MPV Immature Gran % (Auto) Neut % (Auto) Lymph % (Auto) Grainger % (Auto) Eos % (Auto) Baso % (Auto) Lymph # (Auto) Grainger # (Auto) Eos # (Auto) Baso # (Auto) Abs Immat Gran (auto) Absolute Neuts (auto) Absolute Nucleated RBC Nucleated RBC % (auto) PT INR VBG pH VBG pCO2 VBG pO2 VBG HCO3 VBG O2 Saturation VBG Base Excess Anion Gap Estim Creat Clear Calc Estimated GFR Random Glucose Calcium Magnesium Total Bilirubin Direct Bilirubin AST ALT Alkaline Phosphatase Ammonia B-Natriuretic Peptide 65 Total Protein Albumin Triglycerides Cholesterol LDL Cholesterol, Calc HDL Cholesterol Urine Color YELLOW Urine Appearance CLEAR Urine pH 5.5 Ur Specific Lawrence 1.025 Urine Protein NEG Urine Glucose (UA) NEG Urine Ketones NEG Urine Blood NEG Urine Nitrite NEG Ur Leukocyte Esterase NEG Salicylates Urine Opiates Screen Urine Fentanyl Screen Acetaminophen Ur Barbiturates Screen Ur Phencyclidine Scrn Ur Amphetamines Screen U Benzodiazepines Scrn Urine Cocaine Screen U Marijuana (THC) Screen Ethyl Alcohol COVID-19 (FLOR) Negative COVID-19 Clin Com See Note 11/15/21 11/15/21 11/15/21 16:23 17:49 17:53 MCV MCH MCHC RDW Plt Count MPV Immature Gran % (Auto) Neut % (Auto) Lymph % (Auto) Grainger % (Auto) Eos % (Auto) Baso % (Auto) Lymph # (Auto) Grainger # (Auto) Eos # (Auto) Baso # (Auto) Abs Immat Gran (auto) Absolute Neuts (auto) Absolute Nucleated RBC Nucleated RBC % (auto) PT INR VBG pH 7.36 VBG pCO2 41 VBG pO2 41 VBG HCO3 23 VBG O2 Saturation 65.0 VBG Base Excess -1.3 Anion Gap Estim Creat Clear Calc Estimated GFR Random Glucose Calcium Magnesium Total Bilirubin Direct Bilirubin AST ALT Alkaline Phosphatase Ammonia 21 B-Natriuretic Peptide Total Protein Albumin Triglycerides Cholesterol LDL Cholesterol, Calc HDL Cholesterol Urine Color Urine Appearance Urine pH Ur Specific Lawrence Urine Protein Urine Glucose (UA) Urine Ketones Urine Blood Urine Nitrite Ur Leukocyte Esterase Salicylates Urine Opiates Screen POSITIVE H Urine Fentanyl Screen POSITIVE H Acetaminophen Ur Barbiturates Screen Not Detected Ur Phencyclidine Scrn Not Detected Ur Amphetamines Screen Not Detected U Benzodiazepines Scrn Not Detected Urine Cocaine Screen Not Detected U Marijuana (THC) Screen Not Detected Ethyl Alcohol COVID-19 (FLOR) COVID-19 [employer] Com 11/15/21 11/15/21 18:21 19:21 MCV MCH MCHC RDW Plt Count MPV Immature Gran % (Auto) Neut % (Auto) Lymph % (Auto) Grainger % (Auto) Eos % (Auto) Baso % (Auto) Lymph # (Auto) Grainger # (Auto) Eos # (Auto) Baso # (Auto) Abs Immat Gran (auto) Absolute Neuts (auto) Absolute Nucleated RBC Nucleated RBC % (auto) PT 11.0 INR 1.0 VBG pH VBG pCO2 VBG pO2 VBG HCO3 VBG O2 Saturation VBG Base Excess Anion Gap Estim Creat Clear Calc Estimated GFR Random Glucose Calcium Magnesium Total Bilirubin Direct Bilirubin AST ALT Alkaline Phosphatase Ammonia B-Natriuretic Peptide Total Protein Albumin Triglycerides 85 Cholesterol 115 D LDL Cholesterol, Calc 60 HDL Cholesterol 38 Urine Color Urine Appearance Urine pH Ur Specific [place] Urine Protein Urine Glucose (UA) Urine Ketones Urine Blood Urine Nitrite Ur Leukocyte Esterase Salicylates Urine Opiates Screen Urine Fentanyl Screen Acetaminophen Ur Barbiturates Screen Ur Phencyclidine Scrn Ur Amphetamines Screen U Benzodiazepines Scrn Urine Cocaine Screen U Marijuana (THC) Screen Ethyl Alcohol COVID-19 (FLOR) COVID-19 Clin Com Imaging Radiologist's Impressions: Impressions Chest X-Ray 11/15/21 16:28 IMPRESSION: No evidence for acute disease in the chest. Head CT 11/15/21 16:49 IMPRESSION: No acute intracranial pathology. Assessment and Plan (1) AMS (altered mental status): Status: Acute (2) Tylenol overdose: Status: Acute Plan 65-year-old female with a past medical history of hypertension, hyperlipidemia, diabetes, CHF, restrictive lung disease, UTI, history of encephalopathy, dementia, obesity, history of bradycardia; presented to the hospital today with a chief complaint of confusion. Tylenol overdose: per pt's pt got filled 20 tabs of tylenol/codiene 300/30 couple days ago; she takes it every 8hrs; she probably has 10-12 left in bottle; which he noted empty yesterday; presuming she probably took it all. that likely translates to possible 3000mg to 3600mg of tylenol. Which less than toxic dose in a day. but pt has new transaminitis. Tylenol level was 13 on presentation. Noted to have mild transaminitis( ALT 170, AST 48, alk-phos 132) upon follow up tylenol is ,1 and liver panel improving. Ammonia is 21. Poison Control was notified-recommended NAC protocol which was started. Later on patient become more delirious and adamantly refusing to take any medications. Removed her IV line. tried to reorient the patient to maker agree; the patient was adamantly refusing. Spoke to patient's Ant tried to convince the patient. Psychiatric consult Altered mental status: Patient has a history of Lewy body dementia. But more confused than her baseline for the past 2 days. Currently alert and awake and comfortably lying in bed. But oriented to self. Supportive care. CT head showed no acute findings Urinalysis and chest x-ray negative pt is uncooperative and agitated on floors; Given Zyprexa and placed wrist restraints for safety. (pt's was notified) frequent reorientation. History of diabetes: Insulin sliding scale plus Lantus 20 units History of dementia: Continue home donepezil History of hypertension: Hold home hydrochlorothiazide. Continue home metoprolol , valsartan, amlodipine Code status: Full code. Confirmed with the patient's / healthcare proxy. Healthcare proxy invoked Spoke to the patient's Ant was as care proxy and explained about the current patient's health Condition. Quality Stroke Does the patient have a stroke diagnosis?: No VTE Prior VTE?: No VTE Risk Level:: Medical - moderate - high VTE Device Contraindication: Treatment Not Indicated VTE Drug Contraindication: N/A - Med Ordered
--- NOTE | 2021-11-15 21:37 | MHC.CM.PN ---
Addendum entered by Yecenia Anguiano 11/15/21 22:08: 13 referrals placed. Care Port given to patient. With belongings. Original Note: CM attempted to meet with patient. Pt has Lewy Body dementia. HCP invoked on last admission, 09/28/21. Pt was found to lack capacity to make medical decisions. HCP/ Ant Nichole ([phone]). IMM reviewed with HCP per protocol 11/15/2021@1999. PCP is Dr. Rodriguez. Pt is fully vaccinated with Moderna, but no booster. MH application was faxed from [employer] on 10/26/21. No record of patient having [facility]. Ant tells CM he has the application at home. [employer] [facility] faxed request to ascertain if MH application was accepted or denied. Pt is orientated to person and place only. When assisting pt with BR, pt had difficult completing task without reminders. When pt attempted to wash her hands, she needed cues to complete task. tells CM he helps her at home. Pt is convinced she has a UTI (she does not) and that is why she is here. Pt denies taking any Tylenol or Tylenol #3, despite empty pill bottle(prescription filled on 11/10/21 for 20 pills). Pt lives with and states she feels safe at home. Ant tells me he is able to care for her, but could use some help. Tells CM he canceled [facility] Whe[facility] because they didn't like the food. [facility] comes [facility] a month to fill pt's monthly pill box. CM explained that he should be giving her her medication, considering that she took an accidental overdose today. Pt has no other services at home. D/C plan is home with [facility]. Referrals placed. will provide transportation home. CM to follow for d/c needs.
[2021-11-15 23:30] VITALS: BP 146/77; PULSE 79; RESP 15; TEMP 37.1; O2SAT 100
[2021-11-16] VITALS (8 sets, daily range): BP systolic 123–184; BP diastolic 60–89; PULSE 80–100; RESP 15–18; TEMP 36.3–37.3; O2SAT 94–100; BMI 37.5
[2021-11-16 01:10] LABS: Ammonia 21 umol/L (13-55)
--- NOTE | 2021-11-16 01:19 | PC.NURSE ---
This RN spoke with PT's , who is also health care proxy, and asked him to plead with his so that she might allow us to treat her here. PT continued to refuse any meds or IV insertion with requests from and this RN. Hospitalist notified. Awaiting repeat lab results at this time.
[2021-11-16 01:25] LABS: Acetaminophen LAB < 1 mcg/mL (<30); Alanine Aminotransferase 153 U/L (0-31); Albumin Level 3.9 g/dL (3.5-5.0); Alkaline Phosphatase 127 U/L (39-117); Aspartate Amino Transferase 33 U/L (5-31); Bilirubin Direct 0.2 mg/dL (0.0-0.5); Bilirubin Total 0.4 mg/dL (0.0-1.0); Total Protein 6.7 g/dL (6.5-8.0)
[2021-11-16] MEDS: OLANZapine 10 MG VIAL 5 MG IM (02:44)
--- NOTE | 2021-11-16 03:00 | MHC.PIE ---
P.AGITATION/COMBATTIVE/RESISTIVE TO CARE I.PT ARRIVED ON UNIT VIA STRETCHER FROM ED.IMMEDIATLEY HOPPED OFF STRETCHER WALKING DOWN HALLWAY,STATING I'M GOING HOME. DIFFICULTY REDIRECTING,CONFUSED,COMBATTIVE,AGITATED.[employer]URITY AND NURSING [employer]PER[employer] CALLED AND ON UNIT.DR MERIDA NOTIFIED.ORDER FOR ZYPREXA 5MG IM NOW GIVEN.ASSISTED IN TO WHEELCHAIR WITH MUCH DIFFICULTY BY SECURITY AND BROUGHT BACK TO ROOM.PT WALKING AROUND IN ROOM TRYING TO LEAVE.TELLING EVERYONE TO SHUT UP AND GO TO HELL.FIGHTING ALL STAFF,ATTEMPTING TO HIT AND KICK STAFF.ZYPREXA GIVEN.OBSERVED BUT PT CONTINUES TO ATTEMPT TO HIT AND KICK STAFF,TRYING TO CLIMB OUT OF BED.HANDS AND WRISTS RESTRAINED FOR PT AND STAFF SAFETY. ON UNIT.SITTER AT BEDSIDE. E.CONT TO MONITOR.
[2021-11-16 06:39] LABS: MANUAL DIFF FLAG NO
[2021-11-16 06:44] LABS: Basophils Percent Auto 0.3 % (0-2); Eosinophils Absolute Auto 0.1 X10*3/uL (0.0-0.4); Eosinophils Percent Auto 1.1 % (0-4); Hematocrit 37.4 % (37.0-47.0); Hemoglobin 12.2 g/dl (12.0-16.0); Imm Gran Abs Auto 0.02 X10*3/uL (0.00-0.03); Imm Gran Pct Auto 0.2 % (0.0-0.4); Lymphocytes Absolute Auto 2.3 X10*3/uL (1.2-4.9); Lymphocytes Percent Auto 26.4 % (20-40); Mean Corpuscular HGB Conc 32.6 g/dl (31.0-35.0); Mean Corpuscular Hemoglobin 31.7 pg (27.0-33.0); Mean Corpuscular Volume 97.1 fL (80.0-98.0); Mean Platelet Volume 9.7 fL (9.4-12.3); Monocytes Absolute Auto 0.6 X10*3/uL (0.1-1.2); Monocytes Percent Auto 6.4 % (2-11); Neutrophils Absolute Auto 5.7 x10*3/uL (2.0-8.3); Neutrophils Percent Auto 65.6 % (45-73); Platelet Count 232 X10*3/uL (160-400); Red Blood Count 3.85 X10*6/uL (4.20-5.50); Red Cell Distribution Width 13.8 % (11.0-16.0); White Blood Count 8.7 X10*3/uL (4.8-10.8)
[2021-11-16 06:58] LABS: Anion Gap 14 (12-20); Blood Urea Nitrogen 14 mg/dL (9-16); Calcium 9.8 mg/dL (8.4-10.2); Carbon Dioxide 23 mmol/L (22-29); Chloride 110 mmol/L (96-108); Creatinine Clr Calc Pharmacy 83.4; Estimated Glomerular Filt Rate > 60; Glucose Random 149 mg/dL (60-115); Potassium 3.8 mmol/L (3.3-5.1); Sodium 143 mmol/L (135-145)
[2021-11-16 07:01] LABS: Cholesterol 120 mg/dL; HDL Cholesterol 38 mg/dL; LDL Cholesterol Calculated 62 mg/dl; Triglycerides 102 mg/dL
--- NOTE | 2021-11-16 11:49 | HO.PM.IMPN ---
Subjective Subjective Date of Service: 11/16/21 Interval History: cc: ams interval history: wants to go home Cardiovascular Cardiovascular: Reports no additional cardiovascular complaints Respiratory Respiratory: Reports no additional respiratory complaints Physical Exam Vital Signs: Vital Signs: Last Vital Signs Temp 97.9 F 11/16/21 11:25 Pulse 100 11/16/21 11:25 Resp 18 11/16/21 11:25 BP 134/82 11/16/21 11:25 Pulse Ox 98 11/16/21 11:25 BMI result Body Mass Index 37.5 General: AO X 2, agitated Resp: CTA bilateral, no accessory muscles used CVS: S1,S2,RRR GI: soft, non tender, non distended Neuro: motor grossly intact, alert Psych: agitated affect, impaired insight Objective Data Active Medications Amlodipine Besylate (Amlodipine Besylate 5 Mg Tablet) 5 mg PO DAILY [facility]; Protocol Aspirin (Aspirin Enteric Coated 81 Mg Tablet.Dr) 81 mg PO DAILY [facility] Baclofen (Baclofen 10 Mg Tablet) 10 mg PO TID PRN PRN Reason: Muscle Spasm Donepezil HCl (Donepezil Hcl 5 Mg Tablet) 5 mg PO BEDTIME [facility] Last Admin: 11/16/21 01:18 Dose: Not Given Documented by: NADJA Non-Admin Reason: Patient Refused Insulin Glargine (Insulin Glargine,Hum.Rec.Anlog 100 Unit/Ml 10 Ml Vial) 20 unit SUBCUT BEDTIME [facility] Last Admin: 11/16/21 01:18 Dose: Not Given Documented by: NADJA Non-Admin Reason: Patient Refused Insulin Human Lispro (Insulin Lispro 100 Unit/Ml 3 Ml Vial) 0 unit SUBCUT TIDAC [facility]; Protocol Ipratropium Harmon (Ipratropium Harmon Isaiah 0.03 % 30 Ml [place]) 2 spray NOSTRIL-B BID [facility] Last Admin: 11/16/21 01:18 Dose: Not Given Documented by: NADJA Non-Admin Reason: Patient Refused Meclizine HCl (Meclizine Hcl 25 Mg Tablet) 25 mg PO BID PRN PRN Reason: Dizziness Melatonin (Melatonin 3 Mg Tablet) 6 mg PO BEDTIME PRN PRN Reason: Insomnia Metoprolol Succinate (Metoprolol Succinate Er 25 Mg Tab.Er.24h) 25 mg PO DAILY [facility]; Protocol Mirabegron (Mirabegron 25 Mg Tab.Er.24h) 25 mg PO DAILY [facility] Multivitamins/Vitamin C (Multivitamin Tablet) 1 tab PO DAILY [facility] Non-Formulary Medication (Bromfenac [Prolensa]) 1 drop EYE-BOTH BEDTIME PRN PRN Reason: pain Omeprazole (Omeprazole 20 Mg Capsule.Dr) 20 mg PO BEDTIME [facility] Last Admin: 11/16/21 01:19 Dose: Not Given Documented by: NADJA Non-Admin Reason: Patient Refused Pharmacy Consult (Consult Rx Perform Med Rec) 1 each MISCELLANE ONCE PRN PRN Reason: Consult order Polyethylene Glycol (Polyethylene Glycol 3350 17 Gm Powd.Pack) 17 gm PO DAILY PRN PRN Reason: Constipation Quetiapine Fumarate (Quetiapine Fumarate 25 Mg Tablet) 25 mg PO BEDTIME [facility] Last Admin: 11/16/21 01:19 Dose: Not Given Documented by: NADJA Non-Admin Reason: Patient Refused Senna (Sennosides 8.6 Mg Tablet) 17.2 mg PO BEDTIME PRN PRN Reason: Constipation Sodium Chloride (0.9 % Sodium Chloride Flush 3 Ml Syringe) 3 ml IVFLUSH QSHIFT [facility] Last Admin: 11/16/21 01:19 Dose: Not Given Documented by: NADJA Non-Admin Reason: No Access Valsartan (Valsartan 80 Mg Tablet) 80 mg PO DAILY [facility]; Protocol Labs CBC & Chem 7: 11/16/21 06:29 11/16/21 06:29 Labs: Laboratory Results - last 24 hr 11/15/21 11/15/21 11/15/21 16:01 16:01 16:01 MCV 100.3 H MCH 31.6 MCHC 31.6 RDW 14.2 Plt Count 213 MPV 9.7 Immature Gran % (Auto) 0.5 H Neut % (Auto) 50.2 Lymph % (Auto) 36.4 [place] % (Auto) 8.4 Eos % (Auto) 4.0 Baso % (Auto) 0.5 Lymph # (Auto) 2.7 [place] # (Auto) 0.6 Eos # (Auto) 0.3 Baso # (Auto) 0.0 Abs Immat Gran (auto) 0.04 H Absolute Neuts (auto) 3.7 Absolute Nucleated RBC 0.000 Nucleated RBC % (auto) 0.0 PT INR VBG pH VBG pCO2 VBG pO2 VBG HCO3 VBG O2 Saturation VBG Base Excess Anion Gap 12 Estim Creat Clear Calc 64.9 Estimated GFR > 60 Random Glucose 233 H Calcium 9.3 Magnesium 1.8 Total Bilirubin 0.2 Direct Bilirubin 0.2 AST 48 H D ALT 170 H Alkaline Phosphatase 132 H D Ammonia B-Natriuretic Peptide Total Protein 6.4 L Albumin 3.8 Triglycerides Cholesterol LDL Cholesterol, Calc HDL Cholesterol Urine Color Urine Appearance Urine pH Ur Specific [place] Urine Protein Urine Glucose (UA) Urine Ketones Urine Blood Urine Nitrite Ur Leukocyte Esterase Salicylates < 5.0 L Urine Opiates Screen Urine Fentanyl Screen Acetaminophen 13 Ur Barbiturates Screen Ur Phencyclidine Scrn Ur Amphetamines Screen U Benzodiazepines Scrn Urine Cocaine Screen U Marijuana (THC) Screen Ethyl Alcohol < 10 COVID-19 ([facility]) COVID-19 [employer] Com 11/15/21 11/15/21 11/15/21 16:01 16:01 16:23 MCV MCH MCHC RDW Plt Count MPV Immature Gran % (Auto) Neut % (Auto) Lymph % (Auto) [place] % (Auto) Eos % (Auto) Baso % (Auto) Lymph # (Auto) [place] # (Auto) Eos # (Auto) Baso # (Auto) Abs Immat Gran (auto) Absolute Neuts (auto) Absolute Nucleated RBC Nucleated RBC % (auto) PT INR VBG pH VBG pCO2 VBG pO2 VBG HCO3 VBG O2 Saturation VBG Base Excess Anion Gap Estim Creat Clear Calc Estimated GFR Random Glucose Calcium Magnesium Total Bilirubin Direct Bilirubin AST ALT Alkaline Phosphatase Ammonia B-Natriuretic Peptide 65 Total Protein Albumin Triglycerides Cholesterol LDL Cholesterol, Calc HDL Cholesterol Urine Color YELLOW Urine Appearance CLEAR Urine pH 5.5 Ur Specific [place] 1.025 Urine Protein NEG Urine Glucose (UA) NEG Urine Ketones NEG Urine Blood NEG Urine Nitrite NEG Ur Leukocyte Esterase NEG Salicylates Urine Opiates Screen Urine Fentanyl Screen Acetaminophen Ur Barbiturates Screen Ur Phencyclidine Scrn Ur Amphetamines Screen U Benzodiazepines Scrn Urine Cocaine Screen U Marijuana (THC) Screen Ethyl Alcohol COVID-19 ([facility]) Negative COVID-19 Clin Com See Note 11/15/21 11/15/21 11/15/21 16:23 17:49 17:53 MCV MCH MCHC RDW Plt Count MPV Immature Gran % (Auto) Neut % (Auto) Lymph % (Auto) [place] % (Auto) Eos % (Auto) Baso % (Auto) Lymph # (Auto) [place] # (Auto) Eos # (Auto) Baso # (Auto) Abs Immat Gran (auto) Absolute Neuts (auto) Absolute Nucleated RBC Nucleated RBC % (auto) PT INR VBG pH 7.36 VBG pCO2 41 VBG pO2 41 VBG HCO3 23 VBG O2 Saturation 65.0 VBG Base Excess -1.3 Anion Gap Estim Creat Clear Calc Estimated GFR Random Glucose Calcium Magnesium Total Bilirubin Direct Bilirubin AST ALT Alkaline Phosphatase Ammonia 21 B-Natriuretic Peptide Total Protein Albumin Triglycerides Cholesterol LDL Cholesterol, Calc HDL Cholesterol Urine Color Urine Appearance Urine pH Ur Specific [place] Urine Protein Urine Glucose (UA) Urine Ketones Urine Blood Urine Nitrite Ur Leukocyte Esterase Salicylates Urine Opiates Screen POSITIVE H Urine Fentanyl Screen POSITIVE H Acetaminophen Ur Barbiturates Screen Not Detected Ur Phencyclidine Scrn Not Detected Ur Amphetamines Screen Not Detected U Benzodiazepines Scrn Not Detected Urine Cocaine Screen Not Detected U Marijuana (THC) Screen Not Detected Ethyl Alcohol COVID-19 ([facility]) COVID-19 Clin Com 11/15/21 11/15/21 11/16/21 18:21 19:21 00:58 MCV MCH MCHC RDW Plt Count MPV Immature Gran % (Auto) Neut % (Auto) Lymph % (Auto) [place] % (Auto) Eos % (Auto) Baso % (Auto) Lymph # (Auto) [place] # (Auto) Eos # (Auto) Baso # (Auto) Abs Immat Gran (auto) Absolute Neuts (auto) Absolute Nucleated RBC Nucleated RBC % (auto) PT 11.0 INR 1.0 VBG pH VBG pCO2 VBG pO2 VBG HCO3 VBG O2 Saturation VBG Base Excess Anion Gap Estim Creat Clear Calc Estimated GFR Random Glucose Calcium Magnesium Total Bilirubin 0.4 Direct Bilirubin 0.2 AST 33 H ALT 153 H Alkaline Phosphatase 127 H Ammonia B-Natriuretic Peptide Total Protein 6.7 Albumin 3.9 Triglycerides 85 Cholesterol 115 D LDL Cholesterol, Calc 60 HDL Cholesterol 38 Urine Color Urine Appearance Urine pH Ur Specific [place] Urine Protein Urine Glucose (UA) Urine Ketones Urine Blood Urine Nitrite Ur Leukocyte Esterase Salicylates Urine Opiates Screen Urine Fentanyl Screen Acetaminophen < 1 Ur Barbiturates Screen Ur Phencyclidine Scrn Ur Amphetamines Screen U Benzodiazepines Scrn Urine Cocaine Screen U Marijuana (THC) Screen Ethyl Alcohol COVID-19 ([facility]) COVID-19 Clin Com 11/16/21 11/16/21 11/16/21 00:58 06:29 06:29 MCV 97.1 MCH 31.7 MCHC 32.6 RDW 13.8 Plt Count 232 MPV 9.7 Immature Gran % (Auto) 0.2 Neut % (Auto) 65.6 Lymph % (Auto) 26.4 [place] % (Auto) 6.4 Eos % (Auto) 1.1 Baso % (Auto) 0.3 Lymph # (Auto) 2.3 [place] # (Auto) 0.6 Eos # (Auto) 0.1 Baso # (Auto) 0.0 Abs Immat Gran (auto) 0.02 Absolute Neuts (auto) 5.7 Absolute Nucleated RBC 0.000 Nucleated RBC % (auto) 0.0 PT INR VBG pH VBG pCO2 VBG pO2 VBG HCO3 VBG O2 Saturation VBG Base Excess Anion Gap Estim Creat Clear Calc Estimated GFR Random Glucose Calcium Magnesium Total Bilirubin Direct Bilirubin AST ALT Alkaline Phosphatase Ammonia 21 B-Natriuretic Peptide Total Protein Albumin Triglycerides 102 Cholesterol 120 LDL Cholesterol, Calc 62 HDL Cholesterol 38 Urine Color Urine Appearance Urine pH Ur Specific [place] Urine Protein Urine Glucose (UA) Urine Ketones Urine Blood Urine Nitrite Ur Leukocyte Esterase Salicylates Urine Opiates Screen Urine Fentanyl Screen Acetaminophen Ur Barbiturates Screen Ur Phencyclidine Scrn Ur Amphetamines Screen U Benzodiazepines Scrn Urine Cocaine Screen U Marijuana (THC) Screen Ethyl Alcohol COVID-19 ([facility]) COVID-19 Clin Com 11/16/21 06:29 MCV MCH MCHC RDW Plt Count MPV Immature Gran % (Auto) Neut % (Auto) Lymph % (Auto) [place] % (Auto) Eos % (Auto) Baso % (Auto) Lymph # (Auto) [place] # (Auto) Eos # (Auto) Baso # (Auto) Abs Immat Gran (auto) Absolute Neuts (auto) Absolute Nucleated RBC Nucleated RBC % (auto) PT INR VBG pH VBG pCO2 VBG pO2 VBG HCO3 VBG O2 Saturation VBG Base Excess Anion Gap 14 Estim Creat Clear Calc 83.4 Estimated GFR > 60 Random Glucose 149 H Calcium 9.8 Magnesium Total Bilirubin Direct Bilirubin AST ALT Alkaline Phosphatase Ammonia B-Natriuretic Peptide Total Protein Albumin Triglycerides Cholesterol LDL Cholesterol, Calc HDL Cholesterol Urine Color Urine Appearance Urine pH Ur Specific [place] Urine Protein Urine Glucose (UA) Urine Ketones Urine Blood Urine Nitrite Ur Leukocyte Esterase Salicylates Urine Opiates Screen Urine Fentanyl Screen Acetaminophen Ur Barbiturates Screen Ur Phencyclidine Scrn Ur Amphetamines Screen U Benzodiazepines Scrn Urine Cocaine Screen U Marijuana (THC) Screen Ethyl Alcohol COVID-19 ([facility]) COVID-19 Clin Com Assessment and Plan (1) Tylenol overdose: Status: Acute Plan 65F presented with ams, found to have tylenol toxicity toxic metabolic encephaloapthy due to tylenol and codeine overdose, as well as dementia with acute delerium psychiatry appreciated, patient lacks capacity to make medical decisions tylenol toxicity only partially completed NAC protocol follow up repeat LFTS, 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 Quality Stroke Does the patient have a stroke diagnosis?: No VTE Prior VTE?: No VTE Risk Level:: Medical - moderate - high VTE Device Contraindication: Treatment Not Indicated VTE Drug Contraindication: N/A - Med Ordered
[2021-11-16 11:59] LABS: Glucose, Whole Blood 190 mg/dL (60-115)
[2021-11-16] MEDS: Insulin Lispro 100 UNIT/ML 3 ML VIAL SUBCUT ×2 (12:54→16:49)
--- NOTE | 2021-11-16 16:22 | P.CNPS_ITS ---
History of Present Illness Date of Service: 11/16/21 Chief Complaint: AMS Reason for Consult: Decision making capacity, medication refusal capacity Requesting physician: Jose Gamboa Discussed with referring provider: Yes (with covering provider, Dr. Wang) Sources of Information: patient interviewed and chart reviewed HPI Narrative: Patient is a 65-year-old female with a past medical history of hypertension, hyperlipidemia, diabetes, CHF, restrictive lung disease, UTI, history of encephalopathy, dementia, obesity, history of bradycardia; presented to the [facility] today with a chief complaint of confusion.? During a recent admission healthcare proxy was invoked, in September 2021. Upon entrance to room, she was being assisted by aide to get back in bed. She was pleasant upon approach. A&O to person/place. lying comfortably in the bed.?when asked how she is feeling today, she states ?okay ?. When asked where she is, she stated ?[facility] ?. When asked why she is here, she stated ?a UTI, silly ?. When asked the day of the week, or the date, she was unable to answer. When asked about the ingestion of acetaminophen/codeine tablets which led to presentation at ED, she states ?I did not take any meds yesterday. That was 2 months ago ?. As per unit case worker, patient has a monthly medication box in the home, filled monthly by [facility]. Lives with her , who cares for her. He is also HCP. Past Psychiatric History: IPLOC on M5 07/2020. Multiple psychiatric consults here in ED over past year. Medical Evaluation Reviewed: Yes Personal & Social History: Has been diagnosed with dementia. Lives with , who is her caregiver, and also her HCP. Has daughter/grand children. 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 He is elderly and struggling to cope. 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 Has D from first marriage. Has 9 grandchildren Trauma History: None explored Diagnostics Vital Signs (24Hr): Vital Signs - 24 hr 11/15/21 17:52 11/15/21 19:10 11/15/21 23:30 Temperature 97.6 F 98.3 F 98.8 F Pulse Rate 67 71 79 Respiratory Rate 18 11 L 15 Blood Pressure 149/75 H 138/44 L 146/77 H Pulse Oximetry 100 100 100 11/16/21 03:38 11/16/21 04:51 11/16/21 07:14 Temperature 97.9 F Pulse Rate 84 94 88 Respiratory Rate 15 16 18 Blood Pressure 142/73 H 148/60 H 131/72 Pulse Oximetry 94 96 100 11/16/21 07:40 11/16/21 11:25 Temperature 98.4 F 97.9 F Pulse Rate 89 100 Respiratory Rate 18 18 Blood Pressure 141/63 H 134/82 Pulse Oximetry 98 98 BMI result Body Mass Index 37.5 Labs Results: 11/16/21 06:29 11/16/21 06:29 Labs: Laboratory Results - last 48 hr 11/15/21 11/15/21 11/15/21 16:01 16:01 16:01 WBC 7.3 RBC 3.76 L Hgb 11.9 L Hct 37.7 MCV 100.3 H MCH 31.6 MCHC 31.6 RDW 14.2 Plt Count 213 MPV 9.7 Immature Gran % (Auto) 0.5 H Neut % (Auto) 50.2 Lymph % (Auto) 36.4 Harlan % (Auto) 8.4 Eos % (Auto) 4.0 Baso % (Auto) 0.5 Lymph # (Auto) 2.7 Harlan # (Auto) 0.6 Eos # (Auto) 0.3 Baso # (Auto) 0.0 Abs Immat Gran (auto) 0.04 H Absolute Neuts (auto) 3.7 Absolute Nucleated RBC 0.000 Nucleated RBC % (auto) 0.0 PT INR VBG pH VBG pCO2 VBG pO2 VBG HCO3 VBG O2 Saturation VBG Base Excess Sodium 141 Potassium 4.2 Chloride 110 H Carbon Dioxide 23 Anion Gap 12 BUN 28 H Creatinine 0.86 Estim Creat Clear Calc 64.9 Estimated GFR > 60 POC Glucose Random Glucose 233 H Calcium 9.3 Magnesium 1.8 Total Bilirubin 0.2 Direct Bilirubin 0.2 AST 48 H D ALT 170 H Alkaline Phosphatase 132 H D Ammonia Troponin I High Sens B-Natriuretic Peptide Total Protein 6.4 L Albumin 3.8 Triglycerides Cholesterol LDL Cholesterol, Calc HDL Cholesterol Urine Color Urine Appearance Urine pH Ur Specific [place] Urine Protein Urine Glucose (UA) Urine Ketones Urine Blood Urine Nitrite Ur Leukocyte Esterase Salicylates < 5.0 L Urine Opiates Screen Urine Fentanyl Screen Acetaminophen 13 Ur Barbiturates Screen Ur Phencyclidine Scrn Ur Amphetamines Screen U Benzodiazepines Scrn Urine Cocaine Screen U Marijuana (THC) Screen Ethyl Alcohol < 10 COVID-19 (FLOR) COVID-19 Clin Com 11/15/21 11/15/21 11/15/21 16:01 16:01 16:23 WBC RBC Hgb Hct MCV MCH MCHC RDW Plt Count MPV Immature Gran % (Auto) Neut % (Auto) Lymph % (Auto) [place] % (Auto) Eos % (Auto) Baso % (Auto) Lymph # (Auto) [place] # (Auto) Eos # (Auto) Baso # (Auto) Abs Immat Gran (auto) Absolute Neuts (auto) Absolute Nucleated RBC Nucleated RBC % (auto) PT INR VBG pH VBG pCO2 VBG pO2 VBG HCO3 VBG O2 Saturation VBG Base Excess Sodium Potassium Chloride Carbon Dioxide Anion Gap BUN Creatinine Estim Creat Clear Calc Estimated GFR POC Glucose Random Glucose Calcium Magnesium Total Bilirubin Direct Bilirubin AST ALT Alkaline Phosphatase Ammonia Troponin I High Sens < 3.5 D B-Natriuretic Peptide 65 Total Protein Albumin Triglycerides Cholesterol LDL Cholesterol, Calc HDL Cholesterol Urine Color YELLOW Urine Appearance CLEAR Urine pH 5.5 Ur Specific [place] 1.025 Urine Protein NEG Urine Glucose (UA) NEG Urine Ketones NEG Urine Blood NEG Urine Nitrite NEG Ur Leukocyte Esterase NEG Salicylates Urine Opiates Screen Urine Fentanyl Screen Acetaminophen Ur Barbiturates Screen Ur Phencyclidine Scrn Ur Amphetamines Screen U Benzodiazepines Scrn Urine Cocaine Screen U Marijuana (THC) Screen Ethyl Alcohol COVID-19 (FLOR) Negative COVID-19 Clin Com See Note 11/15/21 11/15/21 11/15/21 16:23 17:49 17:53 WBC RBC Hgb Hct MCV MCH MCHC RDW Plt Count MPV Immature Gran % (Auto) Neut % (Auto) Lymph % (Auto) [place] % (Auto) Eos % (Auto) Baso % (Auto) Lymph # (Auto) [place] # (Auto) Eos # (Auto) Baso # (Auto) Abs Immat Gran (auto) Absolute Neuts (auto) Absolute Nucleated RBC Nucleated RBC % (auto) PT INR VBG pH 7.36 VBG pCO2 41 VBG pO2 41 VBG HCO3 23 VBG O2 Saturation 65.0 VBG Base Excess -1.3 Sodium Potassium Chloride Carbon Dioxide Anion Gap BUN Creatinine Estim Creat Clear Calc Estimated GFR POC Glucose Random Glucose Calcium Magnesium Total Bilirubin Direct Bilirubin AST ALT Alkaline Phosphatase Ammonia 21 Troponin I High Sens B-Natriuretic Peptide Total Protein Albumin Triglycerides Cholesterol LDL Cholesterol, Calc HDL Cholesterol Urine Color Urine Appearance Urine pH Ur Specific [place] Urine Protein Urine Glucose (UA) Urine Ketones Urine Blood Urine Nitrite Ur Leukocyte Esterase Salicylates Urine Opiates Screen POSITIVE H Urine Fentanyl Screen POSITIVE H Acetaminophen Ur Barbiturates Screen Not Detected Ur Phencyclidine Scrn Not Detected Ur Amphetamines Screen Not Detected U Benzodiazepines Scrn Not Detected Urine Cocaine Screen Not Detected U Marijuana (THC) Screen Not Detected Ethyl Alcohol COVID-19 (FLOR) COVID-19 Sample6 11/15/21 11/15/21 11/16/21 18:21 19:21 00:58 WBC RBC Hgb Hct MCV MCH MCHC RDW Plt Count MPV Immature Gran % (Auto) Neut % (Auto) Lymph % (Auto) [place]lan % (Auto) Eos % (Auto) Baso % (Auto) Lymph # (Auto) [place] # (Auto) Eos # (Auto) Baso # (Auto) Abs Immat Gran (auto) Absolute Neuts (auto) Absolute Nucleated RBC Nucleated RBC % (auto) PT 11.0 INR 1.0 VBG pH VBG pCO2 VBG pO2 VBG HCO3 VBG O2 Saturation VBG Base Excess Sodium Potassium Chloride Carbon Dioxide Anion Gap BUN Creatinine Estim Creat Clear Calc Estimated GFR POC Glucose Random Glucose Calcium Magnesium Total Bilirubin 0.4 Direct Bilirubin 0.2 AST 33 H ALT 153 H Alkaline Phosphatase 127 H Ammonia Troponin I High Sens B-Natriuretic Peptide Total Protein 6.7 Albumin 3.9 Triglycerides 85 Cholesterol 115 D LDL Cholesterol, Calc 60 HDL Cholesterol 38 Urine Color Urine Appearance Urine pH Ur Specific [place] Urine Protein Urine Glucose (UA) Urine Ketones Urine Blood Urine Nitrite Ur Leukocyte Esterase Salicylates Urine Opiates Screen Urine Fentanyl Screen Acetaminophen < 1 Ur Barbiturates Screen Ur Phencyclidine Scrn Ur Amphetamines Screen U Benzodiazepines Scrn Urine Cocaine Screen U Marijuana (THC) Screen Ethyl Alcohol COVID-19 (FLOR) COVID-19 Splendia Com 11/16/21 11/16/21 11/16/21 00:58 06:29 06:29 WBC 8.7 RBC 3.85 L Hgb 12.2 Hct 37.4 MCV 97.1 MCH 31.7 MCHC 32.6 RDW 13.8 Plt Count 232 MPV 9.7 Immature Gran % (Auto) 0.2 Neut % (Auto) 65.6 Lymph % (Auto) 26.4 Harlan % (Auto) 6.4 Eos % (Auto) 1.1 Baso % (Auto) 0.3 Lymph # (Auto) 2.3 [place]lan # (Auto) 0.6 Eos # (Auto) 0.1 Baso # (Auto) 0.0 Abs Immat Gran (auto) 0.02 Absolute Neuts (auto) 5.7 Absolute Nucleated RBC 0.000 Nucleated RBC % (auto) 0.0 PT INR VBG pH VBG pCO2 VBG pO2 VBG HCO3 VBG O2 Saturation VBG Base Excess Sodium Potassium Chloride Carbon Dioxide Anion Gap BUN Creatinine Estim Creat Clear Calc Estimated GFR POC Glucose Random Glucose Calcium Magnesium Total Bilirubin Direct Bilirubin AST ALT Alkaline Phosphatase Ammonia 21 Troponin I High Sens B-Natriuretic Peptide Total Protein Albumin Triglycerides 102 Cholesterol 120 LDL Cholesterol, Calc 62 HDL Cholesterol 38 Urine Color Urine Appearance Urine pH Ur Specific [place] Urine Protein Urine Glucose (UA) Urine Ketones Urine Blood Urine Nitrite Ur Leukocyte Esterase Salicylates Urine Opiates Screen Urine Fentanyl Screen Acetaminophen Ur Barbiturates Screen Ur Phencyclidine Scrn Ur Amphetamines Screen U Benzodiazepines Scrn Urine Cocaine Screen U Marijuana (THC) Screen Ethyl Alcohol COVID-19 (FLOR) [employer] Com 11/16/21 11/16/21 06:29 11:55 WBC RBC Hgb Hct MCV MCH MCHC RDW Plt Count MPV Immature Gran % (Auto) Neut % (Auto) Lymph % (Auto) [place] % (Auto) Eos % (Auto) Baso % (Auto) Lymph # (Auto) [place] # (Auto) Eos # (Auto) Baso # (Auto) Abs Immat Gran (auto) Absolute Neuts (auto) Absolute Nucleated RBC Nucleated RBC % (auto) PT INR VBG pH VBG pCO2 VBG pO2 VBG HCO3 VBG O2 Saturation VBG Base Excess Sodium 143 Potassium 3.8 Chloride 110 H Carbon Dioxide 23 Anion Gap 14 BUN 14 Creatinine 0.65 Estim Creat Clear Calc 83.4 Estimated GFR > 60 POC Glucose 190 H Random Glucose 149 H Calcium 9.8 Magnesium Total Bilirubin Direct Bilirubin AST ALT Alkaline Phosphatase Ammonia Troponin I High Sens B-Natriuretic Peptide Total Protein Albumin Triglycerides Cholesterol LDL Cholesterol, Calc HDL Cholesterol Urine Color Urine Appearance Urine pH Ur Specific [place] Urine Protein Urine Glucose (UA) Urine Ketones Urine Blood Urine Nitrite Ur Leukocyte Esterase Salicylates Urine Opiates Screen Urine Fentanyl Screen Acetaminophen Ur Barbiturates Screen Ur Phencyclidine Scrn Ur Amphetamines Screen U Benzodiazepines Scrn Urine Cocaine Screen U Marijuana (THC) Screen Ethyl Alcohol COVID-19 (FLOR) COVID-19 Clin Com Imaging Radiology Impressions: ITS Impressions Chest X-Ray 11/15/21 16:28 IMPRESSION: No evidence for acute disease in the chest. Head CT 11/15/21 16:49 IMPRESSION: No acute intracranial pathology. Mental Status Exam Mental Status Exam Narrative: Patient pleasant upon approach, appropriate grooming. Alert and oriented to self and place only. Patient Appearance: Appropriate Patient Orientation: Person and Place Level of Consciousness: Awake Patient Behavior: Appropriate and Cooperative Mood Description: Calm Affect Description: Appropriate Patient Cognition Impaired: Yes Ability to Follow Directions: Fair Speech Pattern: Difficulty Finding Words Memory Description: Normal for Patient, Recent Impaired and Working Impaired Thought Process: Disoriented Thought Content: positive for Disoriented Judgement: Poor Medications Medications Current Medications Amlodipine Besylate (Amlodipine Besylate 5 Mg Tablet) 5 mg PO DAILY [facility]; Protocol Last Admin: 11/16/21 11:53 Dose: Not Given Documented by: Aspirin (Aspirin Enteric Coated 81 Mg Tablet.) 81 mg PO DAILY [facility] Last Admin: 11/16/21 11:53 Dose: Not Given Documented by: Baclofen (Baclofen 10 Mg Tablet) 10 mg PO TID PRN PRN Reason: Muscle Spasm Donepezil HCl (Donepezil Hcl 5 Mg Tablet) 5 mg PO BEDTIME [facility] Last Admin: 11/16/21 01:18 Dose: Not Given Documented by: Insulin Glargine (Insulin Glargine,Hum.Rec.Anlog 100 Unit/Ml 10 Ml Vial) 20 unit SUBCUT BEDTIME [facility] Last Admin: 11/16/21 01:18 Dose: Not Given Documented by: Insulin Human Lispro (Insulin Lispro 100 Unit/Ml 3 Ml Vial) 0 unit SUBCUT TIDAC [facility]; Protocol Last Admin: 11/16/21 12:54 Dose: 2 unit Documented by: Ipratropium [place] (Ipratropium [place] Isaiah 0.03 % 30 Ml [place]) 2 spray NOSTRIL-B BID [facility] Last Admin: 11/16/21 11:54 Dose: Not Given Documented by: Meclizine HCl (Meclizine Hcl 25 Mg Tablet) 25 mg PO BID PRN PRN Reason: Dizziness Melatonin (Melatonin 3 Mg Tablet) 6 mg PO BEDTIME PRN PRN Reason: Insomnia Metoprolol Succinate (Metoprolol Succinate Er 25 Mg Tab.Er.24h) 25 mg PO DAILY [facility]; Protocol Last Admin: 11/16/21 11:54 Dose: Not Given Documented by: Mirabegron (Mirabegron 25 Mg Tab.Er.24h) 25 mg PO DAILY [facility] Last Admin: 11/16/21 11:54 Dose: Not Given Documented by: Multivitamins/Vitamin C (Multivitamin Tablet) 1 tab PO DAILY [facility] Last Admin: 11/16/21 11:54 Dose: Not Given Documented by: Non-Formulary Medication (Bromfenac [Prolensa]) 1 drop EYE-BOTH BEDTIME PRN PRN Reason: pain Omeprazole (Omeprazole 20 Mg Capsule.Dr) 20 mg PO BEDTIME [facility] Last Admin: 11/16/21 01:19 Dose: Not Given Documented by: Pharmacy Consult (Consult Rx Perform Med Rec) 1 each MISCELLANE ONCE PRN PRN Reason: Consult order Polyethylene Glycol (Polyethylene Glycol 3350 17 Gm Powd.Pack) 17 gm PO DAILY PRN PRN Reason: Constipation Quetiapine Fumarate (Quetiapine Fumarate 25 Mg Tablet) 25 mg PO BEDTIME [facility] Last Admin: 11/16/21 01:19 Dose: Not Given Documented by: Senna (Sennosides 8.6 Mg Tablet) 17.2 mg PO BEDTIME PRN PRN Reason: Constipation Sodium Chloride (0.9 % Sodium Chloride Flush 3 Ml Syringe) 3 ml IVFLUSH QSHIFT [facility] Last Admin: 11/16/21 11:53 Dose: Not Given Documented by: Valsartan (Valsartan 80 Mg Tablet) 80 mg PO DAILY [facility]; Protocol Last Admin: 11/16/21 11:54 Dose: Not Given Documented by: Allergies Allergies Allergy/AdvReac Type Severity Reaction Status Date / Time Sulfa (Sulfonamide Allergy Severe DIFFICULTY Verified 09/27/21 13:12 Antibiotics) BREATHING [SULFA (SULFONAMIDE ANTIBIOTICS)] cephalexin [From KEFLEX] Allergy Intermediate RASH,HIVES Verified 09/27/21 13:12 amoxicillin [AMOXICILLIN] Allergy Unknown DENIES Verified 09/27/21 13:12 THIS ALLERGY 03/28/2018 penicillin V Allergy Unknown Unknown Verified 09/27/21 13:12 sumatriptan [From IMITREX] AdvReac Severe HEART Verified 09/27/21 13:12 PALPITATIONS topiramate [From TOPAMAX] AdvReac Severe AGITATION Verified 09/27/21 13:12 Assessment & Plan Assessment & Plan (1) Encounter for assessment of decision-making capacity: Status: Acute Code(s): Z01.89 - Encounter for other specified special examinations Assessment and Plan: Patient appears to be oriented to self and place only. Required assistance to bathroom and back into bed. Appears to lack capacity for decision making at this time. Plan 1. Healthcare proxy has been invoked in September 2021. Recommend keep healthcare proxy invoked at this time. I spent minutes with the patient and/or on the patient floor today, greater than?50% of which was spent counseling/coordinating care. Patient educated on: diagnosis, medication risk/benefits and medical condition Informed Consent: does not understand
[2021-11-16 16:46] LABS: Glucose, Whole Blood 191 mg/dL (60-115)
[2021-11-16] MEDS: QUEtiapine Fumarate 25 MG TABLET PO (20:19)
[2021-11-16] MEDS: Ipratropium Bromide Nas 0.03 % 30 ML SPRAY 2 SPRAY NOSTRIL-B (20:19)
[2021-11-16] MEDS: Omeprazole 20 MG CAPSULE.DR PO (20:19)
[2021-11-16] MEDS: Donepezil HCl 5 MG TABLET PO (20:19)
[2021-11-16] MEDS: Insulin Glargine,Hum.rec.anlog 100 UNIT/ML 10 ML VIAL 20 UNIT SUBCUT (20:25)
[2021-11-16 20:30] LABS: Glucose, Whole Blood 228 mg/dL (60-115)
[2021-11-17 05:00] VITALS: BP 138/78; PULSE 82; RESP 16; TEMP 36.6; O2SAT 96
[2021-11-17 06:18] LABS: Hematocrit 34.5 % (37.0-47.0); Hemoglobin 11.2 g/dl (12.0-16.0); Mean Corpuscular HGB Conc 32.5 g/dl (31.0-35.0); Mean Corpuscular Hemoglobin 31.8 pg (27.0-33.0); Mean Platelet Volume 9.5 fL (9.4-12.3); Platelet Count 207 X10*3/uL (160-400); Red Blood Count 3.52 X10*6/uL (4.20-5.50); Red Cell Distribution Width 14.3 % (11.0-16.0); White Blood Count 8.5 X10*3/uL (4.8-10.8)
[2021-11-17 06:27] LABS: INTERNATIONAL NORM RATIO 1.1 (0.9-1.1); Prothrombin Time 12.1 SEC (9.9-13.0)
[2021-11-17 06:42] LABS: Alanine Aminotransferase 81 U/L (0-31); Albumin Level 3.5 g/dL (3.5-5.0); Alkaline Phosphatase 92 U/L (39-117); Anion Gap 11 (12-20); Aspartate Amino Transferase 18 U/L (5-31); Bilirubin Direct 0.2 mg/dL (0.0-0.5); Bilirubin Total 0.4 mg/dL (0.0-1.0); Blood Urea Nitrogen 19 mg/dL (9-16); Calcium 9.4 mg/dL (8.4-10.2); Carbon Dioxide 26 mmol/L (22-29); Chloride 110 mmol/L (96-108); Creatinine Clr Calc Pharmacy 79.7; Estimated Glomerular Filt Rate > 60; Glucose Fasting 108 mg/dL (60-99); Potassium 3.8 mmol/L (3.3-5.1); Sodium 143 mmol/L (135-145); Total Protein 5.7 g/dL (6.5-8.0)
[2021-11-17 07:20] VITALS: BP 150/69; PULSE 84; RESP 18; TEMP 36.4; O2SAT 96
[2021-11-17 07:33] LABS: Glucose, Whole Blood 107 mg/dL (60-115)
[2021-11-17] MEDS: Aspirin Enteric Coated 81 MG TABLET.DR PO (10:36)
[2021-11-17] MEDS: Multivitamin TABLET 1 TAB PO (10:36)
[2021-11-17] MEDS: Valsartan 80 MG TABLET PO (10:36)
[2021-11-17] MEDS: Metoprolol Succinate ER 25 MG TAB.ER.24H PO (10:37)
[2021-11-17] MEDS: Mirabegron 25 MG TAB.ER.24H PO (10:37)
[2021-11-17] MEDS: amLODIPine Besylate 5 MG TABLET PO (10:37)
[2021-11-17] MEDS: Ipratropium Bromide Nas 0.03 % 30 ML SPRAY 2 SPRAY NOSTRIL-B ×2 (10:38→20:15)
[2021-11-17 10:59] VITALS: BP 143/65; PULSE 82; RESP 18; TEMP 36.7; O2SAT 95
[2021-11-17 11:06] LABS: Glucose, Whole Blood 173 mg/dL (60-115)
--- NOTE | 2021-11-17 11:18 | P.PNIM_ITS ---
Subjective Subjective Date of Service: 11/17/21 Interval History: the patient was seen and evaluated this morning Laying in bed, feels comfortable overall an asking about going home Sitter at the bedside as she is at risk of elopement No reported other overnight events. Systemic review: Denies fever, chills No chest pain, palpitation No shortness of breath or coughing No abdominal pain, nausea or vomiting No urinary symptoms No any rash or wounds Physical Exam Vital Signs: Vital Signs: Last Vital Signs Temp 98.1 F 11/17/21 10:59 Pulse 82 11/17/21 10:59 Resp 18 11/17/21 10:59 BP 143/65 H 11/17/21 10:59 Pulse Ox 95 11/17/21 10:59 BMI result Body Mass Index 37.5 Const: Other: Constitutional : Alert, interactive, not in distress Neck : Normal inspection, Supple Cardiovascular : RRR, S1 S2, no lower extremity edema Respiratory : Good bilateral air entry, no crackles, wheezes or rhonchi Gastrointestinal: soft, lax, Normal bowel sounds, Non tender Skin : Warm, Dry Neurological : Alert & oriented x3, No focal deficit Objective Data Active Medications Amlodipine Besylate (Amlodipine Besylate 5 Mg Tablet) 5 mg PO DAILY [facility]CLUDE 234 BEDS AT THE [facility]; Protocol Last Admin: 11/17/21 10:37 Dose: 5 mg Documented by: SAUL Aspirin (Aspirin Enteric Coated 81 Mg Tablet.) 81 mg PO DAILY COUNTS INCLUDE 234 BEDS AT THE [facility] Last Admin: 11/17/21 10:36 Dose: 81 mg Documented by: SAUL Baclofen (Baclofen 10 Mg Tablet) 10 mg PO TID PRN PRN Reason: Muscle Spasm Donepezil HCl (Donepezil Hcl 5 Mg Tablet) 5 mg PO BEDTIME COUNTS INCLUDE 234 BEDS AT THE [facility] Last Admin: 11/16/21 20:19 Dose: 5 mg Documented by: NESS Insulin Glargine (Insulin Glargine,Hum.Rec.Anlog 100 Unit/Ml 10 Ml Vial) 20 unit SUBCUT BEDTIME COUNTS INCLUDE 234 BEDS AT THE [facility] Last Admin: 11/16/21 20:25 Dose: 20 unit Documented by: NESS Insulin Human Lispro (Insulin Lispro 100 Unit/Ml 3 Ml Vial) 0 unit SUBCUT TIDAC COUNTS INCLUDE 234 BEDS AT THE [facility]; Protocol Last Admin: 11/17/21 08:14 Dose: Not Given Documented by: SAUL Non-Admin Reason: No Insulin Coverage Ipratropium [place] (Ipratropium [place] Isaiha 0.03 % 30 Ml [place]) 2 spray NOSTRIL-B BID COUNTS INCLUDE 234 BEDS AT THE [facility] Last Admin: 11/17/21 10:38 Dose: 2 spray Documented by: SAUL Meclizine HCl (Meclizine Hcl 25 Mg Tablet) 25 mg PO BID PRN PRN Reason: Dizziness Melatonin (Melatonin 3 Mg Tablet) 6 mg PO BEDTIME PRN PRN Reason: Insomnia Metoprolol Succinate (Metoprolol Succinate Er 25 Mg Tab.Er.24h) 25 mg PO DAILY COUNTS INCLUDE 234 BEDS AT THE [facility]; Protocol Last Admin: 11/17/21 10:37 Dose: 25 mg Documented by: SAUL Mirabegron (Mirabegron 25 Mg Tab.Er.24h) 25 mg PO DAILY COUNTS INCLUDE 234 BEDS AT THE [facility] Last Admin: 11/17/21 10:37 Dose: 25 mg Documented by: SAUL Multivitamins/Vitamin C (Multivitamin Tablet) 1 tab PO DAILY COUNTS INCLUDE 234 BEDS AT THE [facility] Last Admin: 11/17/21 10:36 Dose: 1 tab Documented by: SAUL Non-Formulary Medication (Bromfenac [Prolensa]) 1 drop EYE-BOTH BEDTIME PRN PRN Reason: pain Omeprazole (Omeprazole 20 Mg Capsule.Dr) 20 mg PO BEDTIME COUNTS INCLUDE 234 BEDS AT THE [facility] Last Admin: 11/16/21 20:19 Dose: 20 mg Documented by: NESS Pharmacy Consult (Consult Rx Perform Med Rec) 1 each MISCELLANE ONCE PRN PRN Reason: Consult order Polyethylene Glycol (Polyethylene Glycol 3350 17 Gm Powd.Pack) 17 gm PO DAILY PRN PRN Reason: Constipation Quetiapine Fumarate (Quetiapine Fumarate 25 Mg Tablet) 25 mg PO BEDTIME COUNTS INCLUDE 234 BEDS AT THE [facility] Last Admin: 11/16/21 20:19 Dose: 25 mg Documented by: NESS Senna (Sennosides 8.6 Mg Tablet) 17.2 mg PO BEDTIME PRN PRN Reason: Constipation Sodium Chloride (0.9 % Sodium Chloride Flush 3 Ml Syringe) 3 ml IVFLUSH QSHIFT COUNTS INCLUDE 234 BEDS AT THE [facility] Last Admin: 11/17/21 10:40 Dose: Not Given Documented by: SAUL Non-Admin Reason: No Access Valsartan (Valsartan 80 Mg Tablet) 80 mg PO DAILY COUNTS INCLUDE 234 BEDS AT THE [facility]; Protocol Last Admin: 11/17/21 10:36 Dose: 80 mg Documented by: SAUL Labs CBC & Chem 7: 11/17/21 05:59 11/17/21 05:59 Labs: Laboratory Results - last 24 hr 11/16/21 11/16/21 11/16/21 11:55 16:40 20:23 MCV MCH MCHC RDW Plt Count MPV Absolute Nucleated RBC Nucleated RBC % (auto) PT INR Anion Gap Estim Creat Clear Calc Estimated GFR POC Glucose 190 H 191 H 228 H Fasting Glucose Calcium Total Bilirubin Direct Bilirubin AST ALT Alkaline Phosphatase Total Protein Albumin 11/17/21 11/17/21 11/17/21 05:59 05:59 05:59 MCV 98.0 MCH 31.8 MCHC 32.5 RDW 14.3 Plt Count 207 MPV 9.5 Absolute Nucleated RBC 0.000 Nucleated RBC % (auto) 0.0 PT 12.1 INR 1.1 Anion Gap 11 L Estim Creat Clear Calc 79.7 Estimated GFR > 60 POC Glucose Fasting Glucose 108 H Calcium 9.4 Total Bilirubin 0.4 Direct Bilirubin 0.2 AST 18 D ALT 81 H Alkaline Phosphatase 92 D Total Protein 5.7 L Albumin 3.5 11/17/21 11/17/21 07:29 11:03 MCV MCH MCHC RDW Plt Count MPV Absolute Nucleated RBC Nucleated RBC % (auto) PT INR Anion Gap Estim Creat Clear Calc Estimated GFR POC Glucose 107 173 H Fasting Glucose Calcium Total Bilirubin Direct Bilirubin AST ALT Alkaline Phosphatase Total Protein Albumin Assessment and Plan (1) Tylenol overdose: Status: Acute (2) Toxic metabolic encephalopathy: Status: Acute Plan 65F presented with ams, found to have tylenol toxicity toxic metabolic encephaloapthy, resolved due to tylenol and codeine overdose, as well as dementia Improving, seems back to her baseline psychiatry appreciated, patient lacks capacity to make medical decisions 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 Quality Stroke Does the patient have a stroke diagnosis?: No VTE Prior VTE?: No VTE Risk Level:: Medical - moderate - high VTE Device Contraindication: Treatment Not Indicated VTE Drug Contraindication: N/A - Med Ordered
[2021-11-17] MEDS: Insulin Lispro 100 UNIT/ML 3 ML VIAL SUBCUT ×2 (12:15→17:26)
[2021-11-17 16:00] VITALS: BP 145/80; PULSE 78; RESP 20; TEMP 36.7; O2SAT 95
[2021-11-17 16:17] LABS: Glucose, Whole Blood 214 mg/dL (60-115)
[2021-11-17 19:40] VITALS: BP 186/88; PULSE 83; RESP 18; TEMP 36.8; O2SAT 95
[2021-11-17] MEDS: Omeprazole 20 MG CAPSULE.DR PO (20:15)
[2021-11-17] MEDS: QUEtiapine Fumarate 25 MG TABLET PO (20:15)
[2021-11-17] MEDS: Donepezil HCl 5 MG TABLET PO (20:15)
[2021-11-17 20:37] LABS: Glucose, Whole Blood 220 mg/dL (60-115)
[2021-11-17] MEDS: Insulin Glargine,Hum.rec.anlog 100 UNIT/ML 10 ML VIAL 20 UNIT SUBCUT (21:31)
[2021-11-17 23:38] VITALS: BP 134/67; PULSE 78; RESP 16; TEMP 35.8; O2SAT 96
[2021-11-18] VITALS (7 sets, daily range): BP systolic 102–169; BP diastolic 51–85; PULSE 74–90; RESP 18–20; TEMP 35.6–37.2; O2SAT 94–97
[2021-11-18 07:12] LABS: Glucose, Whole Blood 141 mg/dL (60-115)
[2021-11-18] MEDS: Valsartan 80 MG TABLET PO (09:34)
[2021-11-18] MEDS: Metoprolol Succinate ER 25 MG TAB.ER.24H PO (09:34)
[2021-11-18] MEDS: amLODIPine Besylate 5 MG TABLET PO (09:35)
[2021-11-18] MEDS: Aspirin Enteric Coated 81 MG TABLET.DR PO (09:35)
[2021-11-18] MEDS: Multivitamin TABLET 1 TAB PO (09:35)
[2021-11-18] MEDS: Mirabegron 25 MG TAB.ER.24H PO (09:35)
[2021-11-18] MEDS: Ipratropium Bromide Nas 0.03 % 30 ML SPRAY 2 SPRAY NOSTRIL-B ×2 (09:37→21:08)
[2021-11-18 11:06] LABS: Glucose, Whole Blood 246 mg/dL (60-115)
--- NOTE | 2021-11-18 11:28 | MHC.CM.PN ---
CM spoke with Patient's /HCP/Ant yesterday regarding dc planning. Ant doers not feel able to continue caring for the Patient at home. Per ROUNDS discussion,MD may consider a PT eval to determine if Patient's insurance([employer]) will approve for STR initially.Meanwhile, [facility] is assisting with a [facility] julita to be prepared for LTC placement. CM will follow.
[2021-11-18] MEDS: Insulin Lispro 100 UNIT/ML 3 ML VIAL SUBCUT ×2 (11:59→16:35)
--- NOTE | 2021-11-18 12:33 | HO.PM.IMPN ---
Subjective Subjective Date of Service: 11/18/21 Interval History: cc: ams interval history: wants to go home Cardiovascular Cardiovascular: Reports no additional cardiovascular complaints Respiratory Respiratory: Reports no additional respiratory complaints Physical Exam Vital Signs: Vital Signs: Last Vital Signs Temp 96.0 F L 11/18/21 11:21 Pulse 74 11/18/21 11:21 Resp 18 11/18/21 11:21 BP 169/70 H 11/18/21 11:21 Pulse Ox 97 11/18/21 11:21 BMI result Body Mass Index 37.5 General: AO X 3, no acute distressed Resp:? CTA bilateral, no accessory muscles used CVS: S1,S2,RRR GI: soft, non tender, non distended Neuro:? motor grossly intact, alert Psych: agitated affect, impaired insight? Objective Data Active Medications Amlodipine Besylate (Amlodipine Besylate 5 Mg Tablet) 5 mg PO DAILY [facility]; Protocol Last Admin: 11/18/21 09:35 Dose: 5 mg Documented by: BEATRIZ Aspirin (Aspirin Enteric Coated 81 Mg Tablet.) 81 mg PO DAILY [facility] Last Admin: 11/18/21 09:35 Dose: 81 mg Documented by: BEATRIZ Baclofen (Baclofen 10 Mg Tablet) 10 mg PO TID PRN PRN Reason: Muscle Spasm Donepezil HCl (Donepezil Hcl 5 Mg Tablet) 5 mg PO BEDTIME [facility] Last Admin: 11/17/21 20:15 Dose: 5 mg Documented by: TERRELLOIC Insulin Glargine (Insulin Glargine,Hum.Rec.Anlog 100 Unit/Ml 10 Ml Vial) 20 unit SUBCUT BEDTIME [facility] Last Admin: 11/17/21 21:31 Dose: 20 unit Documented by: TOOTIE Insulin Human Lispro (Insulin Lispro 100 Unit/Ml 3 Ml Vial) 0 unit SUBCUT TIDAC [facility]; Protocol Last Admin: 11/18/21 11:59 Dose: 4 unit Documented by: BEATRIZ Ipratropium [place] (Ipratropium [place] Isaiah 0.03 % 30 Ml [place]) 2 spray NOSTRIL-B BID [facility] Last Admin: 11/18/21 09:37 Dose: 2 spray Documented by: BEATRIZ Meclizine HCl (Meclizine Hcl 25 Mg Tablet) 25 mg PO BID PRN PRN Reason: Dizziness Melatonin (Melatonin 3 Mg Tablet) 6 mg PO BEDTIME PRN PRN Reason: Insomnia Metoprolol Succinate (Metoprolol Succinate Er 25 Mg Tab.Er.24h) 25 mg PO DAILY [facility]; Protocol Last Admin: 11/18/21 09:34 Dose: 25 mg Documented by: BEATRIZ Mirabegron (Mirabegron 25 Mg Tab.Er.24h) 25 mg PO DAILY [facility] Last Admin: 11/18/21 09:35 Dose: 25 mg Documented by: BEATRIZ Multivitamins/Vitamin C (Multivitamin Tablet) 1 tab PO DAILY [facility] Last Admin: 11/18/21 09:35 Dose: 1 tab Documented by: BEATRIZ Non-Formulary Medication (Bromfenac [Prolensa]) 1 drop EYE-BOTH BEDTIME PRN PRN Reason: pain Omeprazole (Omeprazole 20 Mg Capsule.Dr) 20 mg PO BEDTIME [facility] Last Admin: 11/17/21 20:15 Dose: 20 mg Documented by: TOOTIE Pharmacy Consult (Consult Rx Perform Med Rec) 1 each MISCELLANE ONCE PRN PRN Reason: Consult order Polyethylene Glycol (Polyethylene Glycol 3350 17 Gm Powd.Pack) 17 gm PO DAILY PRN PRN Reason: Constipation Quetiapine Fumarate (Quetiapine Fumarate 25 Mg Tablet) 25 mg PO BEDTIME [facility] Last Admin: 11/17/21 20:15 Dose: 25 mg Documented by: TOOTIE Senna (Sennosides 8.6 Mg Tablet) 17.2 mg PO BEDTIME PRN PRN Reason: Constipation Sodium Chloride (0.9 % Sodium Chloride Flush 3 Ml Syringe) 3 ml IVFLUSH QSHIFT [facility] Last Admin: 11/18/21 09:35 Dose: Not Given Documented by: BEATRIZ Non-Admin Reason: No Access Valsartan (Valsartan 80 Mg Tablet) 80 mg PO DAILY [facility]; Protocol Last Admin: 11/18/21 09:34 Dose: 80 mg Documented by: BEATRIZ Labs CBC & Chem 7: 11/17/21 05:59 11/17/21 05:59 Labs: Laboratory Results - last 24 hr 11/17/21 11/17/21 11/18/21 16:12 20:32 07:05 POC Glucose 214 H 220 H 141 H 11/18/21 11:03 POC Glucose 246 H Assessment and Plan (1) Tylenol overdose: Status: Acute (2) Toxic metabolic encephalopathy: Status: Acute Plan 65F presented with ams, found to have tylenol toxicity toxic metabolic encephaloapthy, resolved due to tylenol and codeine overdose, as well as dementia Improving, seems back to her baseline psychiatry appreciated, patient lacks capacity to make medical decisions 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 Quality Stroke Does the patient have a stroke diagnosis?: No VTE Prior VTE?: No VTE Risk Level:: Medical - moderate - high VTE Device Contraindication: Treatment Not Indicated VTE Drug Contraindication: N/A - Med Ordered
--- NOTE | 2021-11-18 13:01 | PC.NURSE ---
Skin/Wound assessment completed. There were no skin issues found at this time.
[2021-11-18 16:25] LABS: Glucose, Whole Blood 260 mg/dL (60-115)
[2021-11-18] MEDS: 0.9 % Sodium Chloride Flush 3 ML SYRINGE IVFLUSH ×2 (18:28→21:09)
[2021-11-18 19:54] LABS: Glucose, Whole Blood 255 mg/dL (60-115)
[2021-11-18] MEDS: Insulin Glargine,Hum.rec.anlog 100 UNIT/ML 10 ML VIAL 20 UNIT SUBCUT (21:08)
[2021-11-18] MEDS: Melatonin 3 MG TABLET 6 MG PO (21:08)
[2021-11-18] MEDS: Donepezil HCl 5 MG TABLET PO (21:08)
[2021-11-18] MEDS: QUEtiapine Fumarate 25 MG TABLET PO (21:08)
[2021-11-18] MEDS: Omeprazole 20 MG CAPSULE.DR PO (21:08)
--- NOTE | 2021-11-18 23:42 | PC.NURSE ---
Pt noted to have 52 beats of vtach, assessed and asymptomatic. Dr. Gamboa notified, will continue to monitor.
[2021-11-19 07:34] LABS: Glucose, Whole Blood 140 mg/dL (60-115)
[2021-11-19 07:52] VITALS: BP 151/72; PULSE 78; RESP 18; TEMP 36.7; O2SAT 98
[2021-11-19] MEDS: Valsartan 80 MG TABLET PO (10:16)
[2021-11-19] MEDS: Aspirin Enteric Coated 81 MG TABLET.DR PO (10:16)
[2021-11-19] MEDS: amLODIPine Besylate 5 MG TABLET PO (10:16)
[2021-11-19] MEDS: Mirabegron 25 MG TAB.ER.24H PO (10:17)
[2021-11-19] MEDS: Ipratropium Bromide Nas 0.03 % 30 ML SPRAY 2 SPRAY NOSTRIL-B ×2 (10:18→20:58)
[2021-11-19] MEDS: Multivitamin TABLET 1 TAB PO (10:18)
[2021-11-19] MEDS: Metoprolol Succinate ER 25 MG TAB.ER.24H PO (10:18)
[2021-11-19 10:49] LABS: Glucose, Whole Blood 158 mg/dL (60-115)
[2021-11-19] MEDS: Insulin Lispro 100 UNIT/ML 3 ML VIAL SUBCUT ×2 (11:37→17:48)
[2021-11-19 11:38] VITALS: BP 117/78; PULSE 99; RESP 18; TEMP 36.9; O2SAT 98
--- NOTE | 2021-11-19 12:18 | P.PNIM_ITS ---
Subjective Subjective Date of Service: 11/19/21 Interval History: cc: ams interval history: wants to go home Cardiovascular Cardiovascular: Reports no additional cardiovascular complaints Respiratory Respiratory: Reports no additional respiratory complaints Physical Exam Vital Signs: Vital Signs: Last Vital Signs Temp 98.5 F 11/19/21 11:38 Pulse 99 11/19/21 11:38 Resp 18 11/19/21 11:38 BP 117/78 11/19/21 11:38 Pulse Ox 98 11/19/21 11:38 BMI result Body Mass Index 37.5 General: AO X 3, no acute distressed Resp:? CTA bilateral, no accessory muscles used CVS: S1,S2,RRR GI: soft, non tender, non distended Neuro:? motor grossly intact, alert Psych: agitated affect, impaired insight? Objective Data Active Medications Amlodipine Besylate (Amlodipine Besylate 5 Mg Tablet) 5 mg PO DAILY [facility]; Protocol Last Admin: 11/19/21 10:16 Dose: 5 mg Documented by: TINY Aspirin (Aspirin Enteric Coated 81 Mg Tablet.) 81 mg PO DAILY [facility] Last Admin: 11/19/21 10:16 Dose: 81 mg Documented by: TINY Baclofen (Baclofen 10 Mg Tablet) 10 mg PO TID PRN PRN Reason: Muscle Spasm Donepezil HCl (Donepezil Hcl 5 Mg Tablet) 5 mg PO BEDTIME [facility] Last Admin: 11/18/21 21:08 Dose: 5 mg Documented by: DICK Insulin Glargine (Insulin Glargine,Hum.Rec.Anlog 100 Unit/Ml 10 Ml Vial) 20 unit SUBCUT BEDTIME [facility] Last Admin: 11/18/21 21:08 Dose: 20 unit Documented by: DICK Insulin Human Lispro (Insulin Lispro 100 Unit/Ml 3 Ml Vial) 0 unit SUBCUT TIDAC [facility]; Protocol Last Admin: 11/19/21 11:37 Dose: 2 unit Documented by: TINY Ipratropium [place] (Ipratropium [place] Isaiah 0.03 % 30 Ml [place]) 2 spray NOSTRIL-B BID [facility] Last Admin: 11/19/21 10:18 Dose: 2 spray Documented by: TINY Meclizine HCl (Meclizine Hcl 25 Mg Tablet) 25 mg PO BID PRN PRN Reason: Dizziness Melatonin (Melatonin 3 Mg Tablet) 6 mg PO BEDTIME PRN PRN Reason: Insomnia Last Admin: 11/18/21 21:08 Dose: 6 mg Documented by: DICK Metoprolol Succinate (Metoprolol Succinate Er 25 Mg Tab.Er.24h) 25 mg PO DAILY [facility]; Protocol Last Admin: 11/19/21 10:18 Dose: 25 mg Documented by: TINY Mirabegron (Mirabegron 25 Mg Tab.Er.24h) 25 mg PO DAILY [facility] Last Admin: 11/19/21 10:17 Dose: 25 mg Documented by: TINY Multivitamins/Vitamin C (Multivitamin Tablet) 1 tab PO DAILY [facility] Last Admin: 11/19/21 10:18 Dose: 1 tab Documented by: TINY Omeprazole (Omeprazole 20 Mg Capsule.Dr) 20 mg PO BEDTIME [facility] Last Admin: 11/18/21 21:08 Dose: 20 mg Documented by: DICK Pharmacy Consult (Consult Rx Perform Med Rec) 1 each MISCELLANE ONCE PRN PRN Reason: Consult order Polyethylene Glycol (Polyethylene Glycol 3350 17 Gm Powd.Pack) 17 gm PO DAILY PRN PRN Reason: Constipation Quetiapine Fumarate (Quetiapine Fumarate 25 Mg Tablet) 25 mg PO BEDTIME [facility] Last Admin: 11/18/21 21:08 Dose: 25 mg Documented by: DICK Senna (Sennosides 8.6 Mg Tablet) 17.2 mg PO BEDTIME PRN PRN Reason: Constipation Sodium Chloride (0.9 % Sodium Chloride Flush 3 Ml Syringe) 3 ml IVFLUSH QSHIFT [facility] Last Admin: 11/19/21 10:18 Dose: Not Given Documented by: TINY Non-Admin Reason: No Access Valsartan (Valsartan 80 Mg Tablet) 80 mg PO DAILY [facility]; Protocol Last Admin: 11/19/21 10:16 Dose: 80 mg Documented by: TINY Labs CBC & Chem 7: 11/17/21 05:59 11/17/21 05:59 Labs: Laboratory Results - last 24 hr 11/18/21 11/18/21 11/19/21 16:21 19:50 07:19 POC Glucose 260 H 255 H 140 H 11/19/21 10:44 POC Glucose 158 H Assessment and Plan (1) Tylenol overdose: Status: Acute (2) Toxic metabolic encephalopathy: Status: Acute Plan 65F presented with ams, found to have tylenol toxicity toxic metabolic encephalopathy, resolved due to tylenol and codeine overdose, as well as dementia Improving, seems back to her baseline psychiatry appreciated, patient lacks capacity to make medical decisions will need LTC tylenol toxicity only partially completed NAC protocol Repeated LFT showing improvement, no further treatment required DM basal bolus insulin lewy body dementia continue aricept htn metoprolol, valsartan, amlodipine reason for continued hospitalization: Need for placement. Quality Stroke Does the patient have a stroke diagnosis?: No VTE Prior VTE?: No VTE Risk Level:: Medical - moderate - high VTE Device Contraindication: Treatment Not Indicated VTE Drug Contraindication: N/A - Med Ordered
[2021-11-19] MEDS: polyethylene glycoL 3350 17 GM POWD.PACK PO (13:59)
[2021-11-19 15:16] VITALS: BP 136/72; PULSE 75; RESP 17; TEMP 36; O2SAT 97
[2021-11-19 16:03] LABS: Glucose, Whole Blood 185 mg/dL (60-115)
[2021-11-19 19:03] VITALS: BP 177/91; PULSE 91; RESP 20; TEMP 36.2; O2SAT 96
[2021-11-19 19:51] LABS: Glucose, Whole Blood 236 mg/dL (60-115)
[2021-11-19] MEDS: Melatonin 3 MG TABLET 6 MG PO (20:57)
[2021-11-19] MEDS: Omeprazole 20 MG CAPSULE.DR PO (20:57)
[2021-11-19] MEDS: Donepezil HCl 5 MG TABLET PO (20:58)
[2021-11-19] MEDS: Insulin Glargine,Hum.rec.anlog 100 UNIT/ML 10 ML VIAL 20 UNIT SUBCUT (20:58)
[2021-11-19] MEDS: QUEtiapine Fumarate 25 MG TABLET PO (20:58)
[2021-11-19 23:01] VITALS: BP 112/53; PULSE 78; RESP 20; TEMP 36.1; O2SAT 93
[2021-11-20] VITALS (7 sets, daily range): BP systolic 114–182; BP diastolic 53–79; PULSE 65–95; RESP 16–20; TEMP 36–36.6; O2SAT 94–98
[2021-11-20 07:22] LABS: Glucose, Whole Blood 140 mg/dL (60-115)
[2021-11-20] MEDS: amLODIPine Besylate 5 MG TABLET PO (07:34)
[2021-11-20] MEDS: Aspirin Enteric Coated 81 MG TABLET.DR PO (07:34)
[2021-11-20] MEDS: Multivitamin TABLET 1 TAB PO (07:35)
[2021-11-20] MEDS: Mirabegron 25 MG TAB.ER.24H PO (07:35)
[2021-11-20] MEDS: Valsartan 80 MG TABLET PO (07:35)
[2021-11-20] MEDS: Metoprolol Succinate ER 25 MG TAB.ER.24H PO (07:36)
[2021-11-20] MEDS: Ipratropium Bromide Nas 0.03 % 30 ML SPRAY 2 SPRAY NOSTRIL-B ×2 (07:36→20:59)
--- NOTE | 2021-11-20 11:13 | HO.PM.IMPN ---
Subjective Subjective Date of Service: 11/20/21 Interval History: cc: ams interval history: wants to go home Cardiovascular Cardiovascular: Reports no additional cardiovascular complaints Respiratory Respiratory: Reports no additional respiratory complaints Physical Exam Vital Signs: Vital Signs: Last Vital Signs Temp 97.8 F 11/20/21 11:10 Pulse 90 11/20/21 11:10 Resp 18 11/20/21 11:10 BP 142/79 H 11/20/21 11:10 Pulse Ox 97 11/20/21 11:10 BMI result Body Mass Index 37.5 General: AO X 3, no acute distressed Resp:? CTA bilateral, no accessory muscles used CVS: S1,S2,RRR GI: soft, non tender, non distended Neuro:? motor grossly intact, alert Psych: agitated affect, impaired insight? Objective Data Active Medications Amlodipine Besylate (Amlodipine Besylate 5 Mg Tablet) 5 mg PO DAILY [facility]; Protocol Last Admin: 11/20/21 07:34 Dose: 5 mg Documented by: TINY Aspirin (Aspirin Enteric Coated 81 Mg Tablet.) 81 mg PO DAILY [facility] Last Admin: 11/20/21 07:34 Dose: 81 mg Documented by: TINY Baclofen (Baclofen 10 Mg Tablet) 10 mg PO TID PRN PRN Reason: Muscle Spasm Donepezil HCl (Donepezil Hcl 5 Mg Tablet) 5 mg PO BEDTIME [facility] Last Admin: 11/19/21 20:58 Dose: 5 mg Documented by: DICK Insulin Glargine (Insulin Glargine,Hum.Rec.Anlog 100 Unit/Ml 10 Ml Vial) 20 unit SUBCUT BEDTIME [facility] Last Admin: 11/19/21 20:58 Dose: 20 unit Documented by: DICK Insulin Human Lispro (Insulin Lispro 100 Unit/Ml 3 Ml Vial) 0 unit SUBCUT TIDAC [facility]; Protocol Last Admin: 11/20/21 07:27 Dose: Not Given Documented by: TINY Non-Admin Reason: No Insulin Coverage Ipratropium [place] (Ipratropium [place] Isaiah 0.03 % 30 Ml [place]) 2 spray NOSTRIL-B BID [facility] Last Admin: 11/20/21 07:36 Dose: 2 spray Documented by: TINY Meclizine HCl (Meclizine Hcl 25 Mg Tablet) 25 mg PO BID PRN PRN Reason: Dizziness Melatonin (Melatonin 3 Mg Tablet) 6 mg PO BEDTIME PRN PRN Reason: Insomnia Last Admin: 11/19/21 20:57 Dose: 6 mg Documented by: DICK Metoprolol Succinate (Metoprolol Succinate Er 25 Mg Tab.Er.24h) 25 mg PO DAILY [facility]; Protocol Last Admin: 11/20/21 07:36 Dose: 25 mg Documented by: TINY Mirabegron (Mirabegron 25 Mg Tab.Er.24h) 25 mg PO DAILY [facility] Last Admin: 11/20/21 07:35 Dose: 25 mg Documented by: TINY Multivitamins/Vitamin C (Multivitamin Tablet) 1 tab PO DAILY [facility] Last Admin: 11/20/21 07:35 Dose: 1 tab Documented by: TINY Omeprazole (Omeprazole 20 Mg Capsule.Dr) 20 mg PO BEDTIME [facility] Last Admin: 11/19/21 20:57 Dose: 20 mg Documented by: DICK Pharmacy Consult (Consult Rx Perform Med Rec) 1 each MISCELLANE ONCE PRN PRN Reason: Consult order Polyethylene Glycol (Polyethylene Glycol 3350 17 Gm Powd.Pack) 17 gm PO DAILY PRN PRN Reason: Constipation Last Admin: 11/19/21 13:59 Dose: 17 gm Documented by: TINY Quetiapine Fumarate (Quetiapine Fumarate 25 Mg Tablet) 25 mg PO BEDTIME [facility] Last Admin: 11/19/21 20:58 Dose: 25 mg Documented by: DICK Senna (Sennosides 8.6 Mg Tablet) 17.2 mg PO BEDTIME PRN PRN Reason: Constipation Sodium Chloride (0.9 % Sodium Chloride Flush 3 Ml Syringe) 3 ml IVFLUSH QSHIFT [facility] Last Admin: 11/20/21 07:36 Dose: Not Given Documented by: TINY Non-Admin Reason: No Access Valsartan (Valsartan 80 Mg Tablet) 80 mg PO DAILY [facility]; Protocol Last Admin: 11/20/21 07:35 Dose: 80 mg Documented by: TINY Labs CBC & Chem 7: 11/17/21 05:59 11/17/21 05:59 Labs: Laboratory Results - last 24 hr 11/19/21 11/19/2111/20/22 15:57 19:48 07:16 POC Glucose 185 H 236 H 140 H Assessment and Plan (1) Tylenol overdose: Status: Acute (2) Toxic metabolic encephalopathy: Status: Acute Plan 65F presented with ams, found to have tylenol toxicity toxic metabolic encephalopathy, resolved due to tylenol and codeine overdose, as well as dementia Improving, seems back to her baseline psychiatry appreciated, patient lacks capacity to make medical decisions will need LTC tylenol toxicity only partially completed NAC protocol Repeated LFT showing improvement, no further treatment required DM basal bolus insulin lewy body dementia continue aricept htn metoprolol, valsartan, amlodipine reason for continued hospitalization: Need for placement. Quality Stroke Does the patient have a stroke diagnosis?: No VTE Prior VTE?: No VTE Risk Level:: Medical - moderate - high VTE Device Contraindication: Treatment Not Indicated VTE Drug Contraindication: N/A - Med Ordered
[2021-11-20 11:16] LABS: Glucose, Whole Blood 210 mg/dL (60-115)
[2021-11-20] MEDS: Insulin Lispro 100 UNIT/ML 3 ML VIAL SUBCUT ×2 (11:45→16:56)
[2021-11-20 16:47] LABS: Glucose, Whole Blood 170 mg/dL (60-115)
[2021-11-20] MEDS: Donepezil HCl 5 MG TABLET PO (20:55)
[2021-11-20] MEDS: QUEtiapine Fumarate 25 MG TABLET PO (20:55)
[2021-11-20] MEDS: Omeprazole 20 MG CAPSULE.DR PO (20:55)
[2021-11-20] MEDS: Insulin Glargine,Hum.rec.anlog 100 UNIT/ML 10 ML VIAL 20 UNIT SUBCUT (20:56)
[2021-11-21 00:19] LABS: Glucose, Whole Blood 142 mg/dL (60-115)
[2021-11-21 03:50] VITALS: BP 132/63; PULSE 84; RESP 15; TEMP 36.9; O2SAT 95
[2021-11-21 07:10] VITALS: BP 148/72; PULSE 83; RESP 18; TEMP 36.9; O2SAT 95
[2021-11-21 07:17] LABS: Glucose, Whole Blood 131 mg/dL (60-115)
[2021-11-21] MEDS: Metoprolol Succinate ER 25 MG TAB.ER.24H PO (08:47)
[2021-11-21] MEDS: Aspirin Enteric Coated 81 MG TABLET.DR PO (08:48)
[2021-11-21] MEDS: Multivitamin TABLET 1 TAB PO (08:48)
[2021-11-21] MEDS: Mirabegron 25 MG TAB.ER.24H PO (08:48)
[2021-11-21] MEDS: Valsartan 80 MG TABLET PO (08:48)
[2021-11-21] MEDS: amLODIPine Besylate 5 MG TABLET PO (08:49)
[2021-11-21 11:00] VITALS: BP 114/59; PULSE 82; RESP 18; TEMP 35.8; O2SAT 96
--- NOTE | 2021-11-21 11:02 | MHC.CM.PN ---
Patient's can no longer care for Patient at home. Patient needs [facility] for LTC and family is actively working with [facility] to complete the julita. CM will follow.
[2021-11-21 11:04] LABS: Glucose, Whole Blood 217 mg/dL (60-115)
--- NOTE | 2021-11-21 11:07 | P.PNIM_ITS ---
Subjective Subjective Date of Service: 11/21/21 Interval History: cc: ams interval history:no complaints, wants to go home Cardiovascular Cardiovascular: Reports no additional cardiovascular complaints Respiratory Respiratory: Reports no additional respiratory complaints Physical Exam Vital Signs: Vital Signs: Last Vital Signs Temp 96.5 F L 11/21/21 11:00 Pulse 82 11/21/21 11:00 Resp 18 11/21/21 11:00 BP 114/59 L 11/21/21 11:00 Pulse Ox 96 11/21/21 11:00 BMI result Body Mass Index 37.5 General: AO X 3, no acute distressed Resp:? CTA bilateral, no accessory muscles used CVS: S1,S2,RRR GI: soft, non tender, non distended Neuro:? motor grossly intact, alert Psych: agitated affect, impaired insight? Objective Data Active Medications Amlodipine Besylate (Amlodipine Besylate 5 Mg Tablet) 5 mg PO DAILY [facility]; Protocol Last Admin: 11/21/21 08:49 Dose: 5 mg Documented by: NAVEED Aspirin (Aspirin Enteric Coated 81 Mg Tablet.) 81 mg PO DAILY [facility] Last Admin: 11/21/21 08:48 Dose: 81 mg Documented by: NAVEED Baclofen (Baclofen 10 Mg Tablet) 10 mg PO TID PRN PRN Reason: Muscle Spasm Donepezil HCl (Donepezil Hcl 5 Mg Tablet) 5 mg PO BEDTIME [facility] Last Admin: 11/20/21 20:55 Dose: 5 mg Documented by: BEVERLEY Insulin Glargine (Insulin Glargine,Hum.Rec.Anlog 100 Unit/Ml 10 Ml Vial) 20 unit SUBCUT BEDTIME [facility] Last Admin: 11/20/21 20:56 Dose: 20 unit Documented by: BEVERLEY Insulin Human Lispro (Insulin Lispro 100 Unit/Ml 3 Ml Vial) 0 unit SUBCUT TIDAC [facility]; Protocol Last Admin: 11/21/21 07:24 Dose: Not Given Documented by: NAVEED Non-Admin Reason: No Insulin Coverage Ipratropium [place] (Ipratropium [place] Isaiah 0.03 % 30 Ml [place]) 2 spray NOSTRIL-B BID [facility] Last Admin: 11/20/21 20:59 Dose: 2 spray Documented by: BEVERLEY Meclizine HCl (Meclizine Hcl 25 Mg Tablet) 25 mg PO BID PRN PRN Reason: Dizziness Melatonin (Melatonin 3 Mg Tablet) 6 mg PO BEDTIME PRN PRN Reason: Insomnia Last Admin: 11/19/21 20:57 Dose: 6 mg Documented by: DICK Metoprolol Succinate (Metoprolol Succinate Er 25 Mg Tab.Er.24h) 25 mg PO DAILY [facility]; Protocol Last Admin: 11/21/21 08:47 Dose: 25 mg Documented by: NAVEED Mirabegron (Mirabegron 25 Mg Tab.Er.24h) 25 mg PO DAILY [facility] Last Admin: 11/21/21 08:48 Dose: 25 mg Documented by: NAVEED Multivitamins/Vitamin C (Multivitamin Tablet) 1 tab PO DAILY [facility] Last Admin: 11/21/21 08:48 Dose: 1 tab Documented by: NAVEED Omeprazole (Omeprazole 20 Mg Capsule.Dr) 20 mg PO BEDTIME [facility] Last Admin: 11/20/21 20:55 Dose: 20 mg Documented by: BEVERLEY Pharmacy Consult (Consult Rx Perform Med Rec) 1 each MISCELLANE ONCE PRN PRN Reason: Consult order Polyethylene Glycol (Polyethylene Glycol 3350 17 Gm Powd.Pack) 17 gm PO DAILY PRN PRN Reason: Constipation Last Admin: 11/19/21 13:59 Dose: 17 gm Documented by: TINY Quetiapine Fumarate (Quetiapine Fumarate 25 Mg Tablet) 25 mg PO BEDTIME [facility] Last Admin: 11/20/21 20:55 Dose: 25 mg Documented by: BEVERLEY Senna (Sennosides 8.6 Mg Tablet) 17.2 mg PO BEDTIME PRN PRN Reason: Constipation Sodium Chloride (0.9 % Sodium Chloride Flush 3 Ml Syringe) 3 ml IVFLUSH QSHIFT [facility] Last Admin: 11/21/21 07:33 Dose: Not Given Documented by: NAVEED Non-Admin Reason: No Access Valsartan (Valsartan 80 Mg Tablet) 80 mg PO DAILY [facility]; Protocol Last Admin: 11/21/21 08:48 Dose: 80 mg Documented by: NAVEED Labs CBC & Chem 7: 11/17/21 05:59 11/17/21 05:59 Labs: Laboratory Results - last 24 hr 11/20/21 11/20/21 11/21/21 11:11 16:44 00:15 POC Glucose 210 H 170 H 142 H 11/21/21 11/21/21 07:12 11:01 POC Glucose 131 H 217 H Assessment and Plan (1) Tylenol overdose: Status: Acute (2) Toxic metabolic encephalopathy: Status: Acute Plan 65F presented with ams, found to have tylenol toxicity toxic metabolic encephalopathy, resolved due to tylenol and codeine overdose, as well as dementia Improving, seems back to her baseline psychiatry appreciated, patient lacks capacity to make medical decisions will need LTC tylenol toxicity only partially completed NAC protocol Repeated LFT showing improvement, no further treatment required DM basal bolus insulin lewy body dementia continue aricept htn metoprolol, valsartan, amlodipine reason for continued hospitalization: Need for placement. Quality Stroke Does the patient have a stroke diagnosis?: No VTE Prior VTE?: No VTE Risk Level:: Medical - moderate - high VTE Device Contraindication: Treatment Not Indicated VTE Drug Contraindication: N/A - Med Ordered
[2021-11-21] MEDS: Insulin Lispro 100 UNIT/ML 3 ML VIAL SUBCUT ×2 (12:26→16:37)
[2021-11-21 15:50] VITALS: BP 130/75; PULSE 84; RESP 18; TEMP 36.4; O2SAT 96
[2021-11-21 16:02] LABS: Glucose, Whole Blood 170 mg/dL (60-115)
[2021-11-21 19:15] VITALS: BP 140/73; PULSE 54; RESP 16; TEMP 36.1; O2SAT 98
[2021-11-21 19:45] LABS: Glucose, Whole Blood 231 mg/dL (60-115)
[2021-11-21] MEDS: Omeprazole 20 MG CAPSULE.DR PO (20:52)
[2021-11-21] MEDS: Insulin Glargine,Hum.rec.anlog 100 UNIT/ML 10 ML VIAL 20 UNIT SUBCUT (20:52)
[2021-11-21] MEDS: Donepezil HCl 5 MG TABLET PO (20:52)
[2021-11-21] MEDS: QUEtiapine Fumarate 25 MG TABLET PO (20:52)
[2021-11-21] MEDS: Melatonin 3 MG TABLET 6 MG PO (20:53)
[2021-11-21] MEDS: Ipratropium Bromide Nas 0.03 % 30 ML SPRAY 2 SPRAY NOSTRIL-B (20:56)
[2021-11-21 23:38] VITALS: BP 121/57; PULSE 69; RESP 18; TEMP 36.4; O2SAT 96
[2021-11-22] VITALS: BP 121/57; PULSE 69; RESP 18; TEMP 36.4; O2SAT 96
[2021-11-22 04:00] VITALS: BP 121/69; PULSE 83; RESP 18; TEMP 36.2; O2SAT 98
[2021-11-22 07:26] LABS: Glucose, Whole Blood 154 mg/dL (60-115)
[2021-11-22 07:29] VITALS: BP 140/64; PULSE 78; RESP 17; TEMP 36.7; O2SAT 97
[2021-11-22] MEDS: Insulin Lispro 100 UNIT/ML 3 ML VIAL SUBCUT ×3 (07:44→16:35)
[2021-11-22] MEDS: Aspirin Enteric Coated 81 MG TABLET.DR PO (07:44)
[2021-11-22] MEDS: Mirabegron 25 MG TAB.ER.24H PO (07:44)
[2021-11-22] MEDS: Multivitamin TABLET 1 TAB PO (07:45)
[2021-11-22] MEDS: Metoprolol Succinate ER 25 MG TAB.ER.24H PO (07:45)
[2021-11-22] MEDS: amLODIPine Besylate 5 MG TABLET PO (07:45)
[2021-11-22] MEDS: Valsartan 80 MG TABLET PO (07:45)
--- NOTE | 2021-11-22 10:07 | HO.PM.IMPN ---
Subjective Subjective Date of Service: 11/22/21 Interval History: cc: ams interval history: stable, wants to go home Cardiovascular Cardiovascular: Reports no additional cardiovascular complaints Respiratory Respiratory: Reports no additional respiratory complaints Physical Exam Vital Signs: Vital Signs: Last Vital Signs Temp 98.0 F 11/22/21 07:29 Pulse 78 11/22/21 07:29 Resp 17 11/22/21 07:29 BP 140/64 H 11/22/21 07:29 Pulse Ox 97 11/22/21 07:29 BMI result Body Mass Index 37.5 General: AO X 3, no acute distressed, walking around room comfortably Resp:? CTA bilateral, no accessory muscles used CVS: S1,S2,RRR GI: soft, non tender, non distended Neuro:? motor grossly intact, alert Psych: agitated affect, impaired insight? Objective Data Active Medications Amlodipine Besylate (Amlodipine Besylate 5 Mg Tablet) 5 mg PO DAILY [facility]; Protocol Last Admin: 11/22/21 07:45 Dose: 5 mg Documented by: MITESH Aspirin (Aspirin Enteric Coated 81 Mg Tablet.) 81 mg PO DAILY [facility] Last Admin: 11/22/21 07:44 Dose: 81 mg Documented by: MITESH Baclofen (Baclofen 10 Mg Tablet) 10 mg PO TID PRN PRN Reason: Muscle Spasm Donepezil HCl (Donepezil Hcl 5 Mg Tablet) 5 mg PO BEDTIME [facility] Last Admin: 11/21/21 20:52 Dose: 5 mg Documented by: FLAKO Insulin Glargine (Insulin Glargine,Hum.Rec.Anlog 100 Unit/Ml 10 Ml Vial) 20 unit SUBCUT BEDTIME [facility] Last Admin: 11/21/21 20:52 Dose: 20 unit Documented by: FLAKO Insulin Human Lispro (Insulin Lispro 100 Unit/Ml 3 Ml Vial) 0 unit SUBCUT TIDAC [facility]; Protocol Last Admin: 11/22/21 07:44 Dose: 2 unit Documented by: MITESH Ipratropium [place] (Ipratropium [place] Isaiah 0.03 % 30 Ml [place]) 2 spray NOSTRIL-B BID [facility] Last Admin: 11/22/21 07:48 Dose: Not Given Documented by: MITESH Non-Admin Reason: Med Not Available Meclizine HCl (Meclizine Hcl 25 Mg Tablet) 25 mg PO BID PRN PRN Reason: Dizziness Melatonin (Melatonin 3 Mg Tablet) 6 mg PO BEDTIME PRN PRN Reason: Insomnia Last Admin: 11/21/21 20:53 Dose: 6 mg Documented by: FLAKO Metoprolol Succinate (Metoprolol Succinate Er 25 Mg Tab.Er.24h) 25 mg PO DAILY [facility]; Protocol Last Admin: 11/22/21 07:45 Dose: 25 mg Documented by: MITESH Mirabegron (Mirabegron 25 Mg Tab.Er.24h) 25 mg PO DAILY [facility] Last Admin: 11/22/21 07:44 Dose: 25 mg Documented by: MITESH Multivitamins/Vitamin C (Multivitamin Tablet) 1 tab PO DAILY [facility] Last Admin: 11/22/21 07:45 Dose: 1 tab Documented by: MITESH Omeprazole (Omeprazole 20 Mg Capsule.Dr) 20 mg PO BEDTIME [facility] Last Admin: 11/21/21 20:52 Dose: 20 mg Documented by: FLAKO Pharmacy Consult (Consult Rx Perform Med Rec) 1 each MISCELLANE ONCE PRN PRN Reason: Consult order Polyethylene Glycol (Polyethylene Glycol 3350 17 Gm Powd.Pack) 17 gm PO DAILY PRN PRN Reason: Constipation Last Admin: 11/19/21 13:59 Dose: 17 gm Documented by: TINY Quetiapine Fumarate (Quetiapine Fumarate 25 Mg Tablet) 25 mg PO BEDTIME [facility] Last Admin: 11/21/21 20:52 Dose: 25 mg Documented by: FLAKO Senna (Sennosides 8.6 Mg Tablet) 17.2 mg PO BEDTIME PRN PRN Reason: Constipation Sodium Chloride (0.9 % Sodium Chloride Flush 3 Ml Syringe) 3 ml IVFLUSH QSHIFT [facility] Last Admin: 11/22/21 07:47 Dose: Not Given Documented by: MITESH Non-Admin Reason: No Access Valsartan (Valsartan 80 Mg Tablet) 80 mg PO DAILY [facility]; Protocol Last Admin: 11/22/21 07:45 Dose: 80 mg Documented by: MITESH Labs CBC & Chem 7: 11/17/21 05:59 11/17/21 05:59 Labs: Laboratory Results - last 24 hr 11/21/21 11/21/2122 11:01 15:52 19:37 POC Glucose 217 H 170 H 231 H 11/22/21 07:22 POC Glucose 154 H Assessment and Plan (1) Tylenol overdose: Status: Acute (2) Toxic metabolic encephalopathy: Status: Acute Plan 65F presented with ams, found to have tylenol toxicity toxic metabolic encephalopathy, resolved due to tylenol and codeine overdose, as well as dementia resolved, seems back to her baseline psychiatry appreciated, patient lacks capacity to make medical decisions will need LTC tylenol toxicity resolved only partially completed NAC protocol Repeated LFT showed improvement, no further treatment required DM basal bolus insulin lewy body dementia continue aricept htn metoprolol, valsartan, amlodipine reason for continued hospitalization: Need for placement. Quality Stroke Does the patient have a stroke diagnosis?: No VTE Prior VTE?: No VTE Risk Level:: Medical - moderate - high VTE Device Contraindication: Treatment Not Indicated VTE Drug Contraindication: N/A - Med Ordered
[2021-11-22 11:34] LABS: Glucose, Whole Blood 182 mg/dL (60-115)
[2021-11-22 12:00] VITALS: BP 128/64; PULSE 84; RESP 18; TEMP 36.5; O2SAT 97
[2021-11-22 15:18] VITALS: BP 115/51; PULSE 70; RESP 16; TEMP 36.6; O2SAT 97
[2021-11-22 16:12] LABS: Glucose, Whole Blood 181 mg/dL (60-115)
[2021-11-22 19:24] VITALS: BP 131/61; PULSE 81; RESP 18; TEMP 36.4; O2SAT 96
[2021-11-22 20:13] LABS: Glucose, Whole Blood 252 mg/dL (60-115)
[2021-11-22] MEDS: QUEtiapine Fumarate 25 MG TABLET PO (20:34)
[2021-11-22] MEDS: Melatonin 3 MG TABLET 6 MG PO (20:34)
[2021-11-22] MEDS: Omeprazole 20 MG CAPSULE.DR PO (20:34)
[2021-11-22] MEDS: Insulin Glargine,Hum.rec.anlog 100 UNIT/ML 10 ML VIAL 20 UNIT SUBCUT (20:35)
[2021-11-22] MEDS: Donepezil HCl 5 MG TABLET PO (20:35)
[2021-11-22] MEDS: Ipratropium Bromide Nas 0.03 % 30 ML SPRAY 2 SPRAY NOSTRIL-B (20:37)
[2021-11-23] VITALS: BP 124/64; PULSE 81; RESP 18; TEMP 36.4; O2SAT 97
[2021-11-23 04:00] VITALS: BP 109/59; PULSE 78; RESP 18; TEMP 36.4; O2SAT 96
[2021-11-23 07:14] VITALS: BP 123/78; PULSE 84; RESP 17; TEMP 36.9; O2SAT 96
[2021-11-23] MEDS: Valsartan 80 MG TABLET PO (07:35)
[2021-11-23] MEDS: Multivitamin TABLET 1 TAB PO (07:35)
[2021-11-23] MEDS: Aspirin Enteric Coated 81 MG TABLET.DR PO (07:35)
[2021-11-23] MEDS: Metoprolol Succinate ER 25 MG TAB.ER.24H PO (07:36)
[2021-11-23] MEDS: Mirabegron 25 MG TAB.ER.24H PO (07:36)
[2021-11-23] MEDS: amLODIPine Besylate 5 MG TABLET PO (07:36)
[2021-11-23] MEDS: Insulin Lispro 100 UNIT/ML 3 ML VIAL SUBCUT ×3 (07:37→16:35)
[2021-11-23] MEDS: Ipratropium Bromide Nas 0.03 % 30 ML SPRAY 2 SPRAY NOSTRIL-B ×2 (07:38→20:51)
[2021-11-23 08:42] LABS: Glucose, Whole Blood 153 mg/dL (60-115)
[2021-11-23 11:19] LABS: Glucose, Whole Blood 159 mg/dL (60-115)
[2021-11-23 11:40] VITALS: BP 125/67; PULSE 84; RESP 18; TEMP 36.8; O2SAT 97
--- NOTE | 2021-11-23 12:52 | MHC.CM.PN ---
Addendum entered by Ana Ashraf RN 11/23/21 13:11: PT HAS RECEIVED 10 SNF DECLINES, [facility] AND [facility] ARE FOLLOWING HOWEVER DO NOT HAVE BED AVAILABILITY TODAY, CM STILL WAITING FOR SEVERAL RESPONSES AND WILL CONT TO FOLLOW D/C NEEDS. Original Note: EMR REVIEWED, PT MEDICALLY CLEARED FOR D/C, PER PHYSICAL THERAPY PT IS NOT SKILLING FOR STR, PER FS FINAL DOCUMENTS FAXED TO YESTERDAY 11/22, SNF REFERRAL UPDATED, PT HAD MULTIPLE SNF'S FOLLOWING HOWEVER UNCLEAR IF THEY REALIZE PT WILL NEED LTC, CM AWAITING BED OFFERS AND WILL CONT TO FOLLOW.
--- NOTE | 2021-11-23 13:18 | HO.PM.IMPN ---
Subjective Subjective Date of Service: 11/23/21 Interval History: the patient was seen and evaluated this morning Laying in bed, feels comfortable overall with no complaints No reported other overnight events. Systemic review: Denies fever, chills No chest pain, palpitation No shortness of breath or coughing No abdominal pain, nausea or vomiting No urinary symptoms No any rash or wounds Physical Exam Vital Signs: Vital Signs: Last Vital Signs Temp 98.2 F 11/23/21 11:40 Pulse 84 11/23/21 11:40 Resp 18 11/23/21 11:40 BP 125/67 11/23/21 11:40 Pulse Ox 97 11/23/21 11:40 BMI result Body Mass Index 37.5 Const: Other: Constitutional : Alert, interactive, not in distress Neck : Normal inspection, Supple Cardiovascular : RRR, S1 S2, no lower extremity edema Respiratory : Good bilateral air entry, no crackles, wheezes or rhonchi Gastrointestinal: soft, lax, Normal bowel sounds, Non tender Skin : Warm, Dry Neurological : Alert & oriented x3, No focal deficit Objective Data Active Medications Amlodipine Besylate (Amlodipine Besylate 5 Mg Tablet) 5 mg PO DAILY [facility]; Protocol Last Admin: 11/23/21 07:36 Dose: 5 mg Documented by: THOMAS Aspirin (Aspirin Enteric Coated 81 Mg Tablet.) 81 mg PO DAILY [facility] Last Admin: 11/23/21 07:35 Dose: 81 mg Documented by: THOMAS Baclofen (Baclofen 10 Mg Tablet) 10 mg PO TID PRN PRN Reason: Muscle Spasm Donepezil HCl (Donepezil Hcl 5 Mg Tablet) 5 mg PO BEDTIME [facility] Last Admin: 11/22/21 20:35 Dose: 5 mg Documented by: FLAKO Insulin Glargine (Insulin Glargine,Hum.Rec.Anlog 100 Unit/Ml 10 Ml Vial) 20 unit SUBCUT BEDTIME [facility] Last Admin: 11/22/21 20:35 Dose: 20 unit Documented by: FLAKO Insulin Human Lispro (Insulin Lispro 100 Unit/Ml 3 Ml Vial) 0 unit SUBCUT TIDAC [facility]; Protocol Last Admin: 11/23/21 11:34 Dose: 2 unit Documented by: THOMAS Ipratropium [place] (Ipratropium [place] Isaiah 0.03 % 30 Ml [place]) 2 spray NOSTRIL-B BID [facility] Last Admin: 11/23/21 07:38 Dose: 2 spray Documented by: THOMAS Meclizine HCl (Meclizine Hcl 25 Mg Tablet) 25 mg PO BID PRN PRN Reason: Dizziness Melatonin (Melatonin 3 Mg Tablet) 6 mg PO BEDTIME PRN PRN Reason: Insomnia Last Admin: 11/22/21 20:34 Dose: 6 mg Documented by: FLAKO Metoprolol Succinate (Metoprolol Succinate Er 25 Mg Tab.Er.24h) 25 mg PO DAILY [facility]; Protocol Last Admin: 11/23/21 07:36 Dose: 25 mg Documented by: THOMAS Mirabegron (Mirabegron 25 Mg Tab.Er.24h) 25 mg PO DAILY [facility] Last Admin: 11/23/21 07:36 Dose: 25 mg Documented by: THOMAS Multivitamins/Vitamin C (Multivitamin Tablet) 1 tab PO DAILY [facility] Last Admin: 11/23/21 07:35 Dose: 1 tab Documented by: THOMAS Omeprazole (Omeprazole 20 Mg Capsule.Dr) 20 mg PO BEDTIME [facility] Last Admin: 11/22/21 20:34 Dose: 20 mg Documented by: FLAKO Pharmacy Consult (Consult Rx Perform Med Rec) 1 each MISCELLANE ONCE PRN PRN Reason: Consult order Polyethylene Glycol (Polyethylene Glycol 3350 17 Gm Powd.Pack) 17 gm PO DAILY PRN PRN Reason: Constipation Last Admin: 11/19/21 13:59 Dose: 17 gm Documented by: TINY Quetiapine Fumarate (Quetiapine Fumarate 25 Mg Tablet) 25 mg PO BEDTIME [facility] Last Admin: 11/22/21 20:34 Dose: 25 mg Documented by: FLAKO Senna (Sennosides 8.6 Mg Tablet) 17.2 mg PO BEDTIME PRN PRN Reason: Constipation Sodium Chloride (0.9 % Sodium Chloride Flush 3 Ml Syringe) 3 ml IVFLUSH QSHIFT [facility] Last Admin: 11/23/21 13:05 Dose: Not Given Documented by: THOMAS Non-Admin Reason: No Access Valsartan (Valsartan 80 Mg Tablet) 80 mg PO DAILY [facility]; Protocol Last Admin: 11/23/21 07:35 Dose: 80 mg Documented by: THOMAS Labs CBC & Chem 7: 11/17/21 05:59 11/17/21 05:59 Labs: Laboratory Results - last 24 hr 11/22/21 11/22/21 11/23/21 16:09 20:03 07:13 POC Glucose 181 H 252 H 153 H 11/23/21 11:09 POC Glucose 159 H Assessment and Plan (1) Toxic metabolic encephalopathy: Status: Acute Plan 65F presented with ams, found to have tylenol toxicity toxic metabolic encephalopathy, resolved due to tylenol and codeine overdose, as well as dementia resolved, seems back to her baseline Psychiatry appreciated, patient lacks capacity to make medical decisions will need LTC tylenol toxicity resolved only partially completed NAC protocol Repeated LFT showed improvement, no further treatment required DM basal bolus insulin lewy body dementia continue aricept htn metoprolol, valsartan, amlodipine reason for continued hospitalization: Need for placement. Quality Stroke Does the patient have a stroke diagnosis?: No VTE Prior VTE?: No VTE Risk Level:: Medical - moderate - high VTE Device Contraindication: Treatment Not Indicated VTE Drug Contraindication: N/A - Med Ordered
[2021-11-23 15:06] VITALS: BP 140/66; PULSE 91; RESP 18; TEMP 36.7; O2SAT 99
[2021-11-23 15:46] LABS: Glucose, Whole Blood 186 mg/dL (60-115)
[2021-11-23 19:39] VITALS: BP 182/76; PULSE 100; RESP 18; TEMP 37.2; O2SAT 97
[2021-11-23 20:14] LABS: Glucose, Whole Blood 242 mg/dL (60-115)
[2021-11-23] MEDS: Melatonin 3 MG TABLET 6 MG PO (20:47)
[2021-11-23] MEDS: Omeprazole 20 MG CAPSULE.DR PO (20:47)
[2021-11-23] MEDS: Donepezil HCl 5 MG TABLET PO (20:47)
[2021-11-23] MEDS: QUEtiapine Fumarate 25 MG TABLET PO (20:47)
[2021-11-23] MEDS: Insulin Glargine,Hum.rec.anlog 100 UNIT/ML 10 ML VIAL 20 UNIT SUBCUT (20:47)
[2021-11-24] VITALS (8 sets, daily range): BP systolic 115–145; BP diastolic 58–79; PULSE 75–90; RESP 17–18; TEMP 36.2–36.9; O2SAT 95–98
[2021-11-24 07:27] LABS: Glucose, Whole Blood 142 mg/dL (60-115)
[2021-11-24] MEDS: Mirabegron 25 MG TAB.ER.24H PO (07:55)
[2021-11-24] MEDS: Valsartan 80 MG TABLET PO (07:55)
[2021-11-24] MEDS: Multivitamin TABLET 1 TAB PO (07:55)
[2021-11-24] MEDS: Metoprolol Succinate ER 25 MG TAB.ER.24H PO (07:55)
[2021-11-24] MEDS: Aspirin Enteric Coated 81 MG TABLET.DR PO (07:55)
[2021-11-24] MEDS: amLODIPine Besylate 5 MG TABLET PO (07:55)
[2021-11-24] MEDS: Ipratropium Bromide Nas 0.03 % 30 ML SPRAY 2 SPRAY NOSTRIL-B ×2 (07:56→22:09)
[2021-11-24 11:27] LABS: Glucose, Whole Blood 182 mg/dL (60-115)
[2021-11-24] MEDS: Insulin Lispro 100 UNIT/ML 3 ML VIAL SUBCUT ×2 (11:39→16:28)
--- NOTE | 2021-11-24 11:47 | HO.PM.IMPN ---
Subjective Subjective Date of Service: 11/24/21 Interval History: the patient was seen and evaluated this morning Laying in bed, feels comfortable overall with no complaints No reported other overnight events. Systemic review: Denies fever, chills No chest pain, palpitation No shortness of breath or coughing No abdominal pain, nausea or vomiting No urinary symptoms No any rash or wounds Physical Exam Vital Signs: Vital Signs: Last Vital Signs Temp 98.5 F 11/24/21 11:42 Pulse 90 11/24/21 11:42 Resp 18 11/24/21 11:42 BP 143/73 H 11/24/21 11:42 Pulse Ox 95 11/24/21 11:42 BMI result Body Mass Index 37.5 Const: Other: Constitutional : Alert, interactive, not in distress Neck : Normal inspection, Supple Cardiovascular : RRR, S1 S2, no lower extremity edema Respiratory : Good bilateral air entry, no crackles, wheezes or rhonchi Gastrointestinal: soft, lax, Normal bowel sounds, Non tender Skin : Warm, Dry Neurological : Alert & oriented x3, No focal deficit Objective Data Active Medications Amlodipine Besylate (Amlodipine Besylate 5 Mg Tablet) 5 mg PO DAILY [facility]; Protocol Last Admin: 11/24/21 07:55 Dose: 5 mg Documented by: THOMAS Aspirin (Aspirin Enteric Coated 81 Mg Tablet.) 81 mg PO DAILY [facility] Last Admin: 11/24/21 07:55 Dose: 81 mg Documented by: THOMAS Baclofen (Baclofen 10 Mg Tablet) 10 mg PO TID PRN PRN Reason: Muscle Spasm Donepezil HCl (Donepezil Hcl 5 Mg Tablet) 5 mg PO BEDTIME [facility] Last Admin: 11/23/21 20:47 Dose: 5 mg Documented by: FLAKO Insulin Glargine (Insulin Glargine,Hum.Rec.Anlog 100 Unit/Ml 10 Ml Vial) 20 unit SUBCUT BEDTIME [facility] Last Admin: 11/23/21 20:47 Dose: 20 unit Documented by: FLAKO Insulin Human Lispro (Insulin Lispro 100 Unit/Ml 3 Ml Vial) 0 unit SUBCUT TIDAC [facility]; Protocol Last Admin: 11/24/21 11:39 Dose: 2 unit Documented by: THOMAS Ipratropium [place] (Ipratropium [place] Isaiah 0.03 % 30 Ml [place]) 2 spray NOSTRIL-B BID [facility] Last Admin: 11/24/21 07:56 Dose: 2 spray Documented by: THOMAS Meclizine HCl (Meclizine Hcl 25 Mg Tablet) 25 mg PO BID PRN PRN Reason: Dizziness Melatonin (Melatonin 3 Mg Tablet) 6 mg PO BEDTIME PRN PRN Reason: Insomnia Last Admin: 11/23/21 20:47 Dose: 6 mg Documented by: FLAKO Metoprolol Succinate (Metoprolol Succinate Er 25 Mg Tab.Er.24h) 25 mg PO DAILY [facility]; Protocol Last Admin: 11/24/21 07:55 Dose: 25 mg Documented by: THOMAS Mirabegron (Mirabegron 25 Mg Tab.Er.24h) 25 mg PO DAILY [facility] Last Admin: 11/24/21 07:55 Dose: 25 mg Documented by: THOMAS Multivitamins/Vitamin C (Multivitamin Tablet) 1 tab PO DAILY [facility] Last Admin: 11/24/21 07:55 Dose: 1 tab Documented by: THOMAS Omeprazole (Omeprazole 20 Mg Capsule.Dr) 20 mg PO BEDTIME [facility] Last Admin: 11/23/21 20:47 Dose: 20 mg Documented by: FLAKO Pharmacy Consult (Consult Rx Perform Med Rec) 1 each MISCELLANE ONCE PRN PRN Reason: Consult order Polyethylene Glycol (Polyethylene Glycol 3350 17 Gm Powd.Pack) 17 gm PO DAILY PRN PRN Reason: Constipation Last Admin: 11/19/21 13:59 Dose: 17 gm Documented by: TINY Quetiapine Fumarate (Quetiapine Fumarate 25 Mg Tablet) 25 mg PO BEDTIME [facility] Last Admin: 11/23/21 20:47 Dose: 25 mg Documented by: FLAKO Senna (Sennosides 8.6 Mg Tablet) 17.2 mg PO BEDTIME PRN PRN Reason: Constipation Sodium Chloride (0.9 % Sodium Chloride Flush 3 Ml Syringe) 3 ml IVFLUSH QSHIFT [facility] Last Admin: 11/24/21 07:18 Dose: Not Given Documented by: THOMAS Non-Admin Reason: No Access Valsartan (Valsartan 80 Mg Tablet) 80 mg PO DAILY [facility]; Protocol Last Admin: 11/24/21 07:55 Dose: 80 mg Documented by: THOMAS Labs CBC & Chem 7: 11/17/21 05:59 11/17/21 05:59 Labs: Laboratory Results - last 24 hr 11/23/21 11/23/21 11/24/21 15:12 19:44 07:16 POC Glucose 186 H 242 H 142 H 11/24/21 11:23 POC Glucose 182 H Assessment and Plan (1) Toxic metabolic encephalopathy: Status: Acute (2) Tylenol overdose: Status: Acute Plan 65F presented with ams, found to have tylenol toxicity toxic metabolic encephalopathy, resolved due to tylenol and codeine overdose, as well as dementia resolved, seems back to her baseline Psychiatry appreciated, patient lacks capacity to make medical decisions will need LTC tylenol toxicity resolved only partially completed NAC protocol Repeated LFT showed improvement, no further treatment required Hyperglycemia 2/2 DM basal bolus insulin SSI lewy body dementia continue aricept htn metoprolol, valsartan, amlodipine reason for continued hospitalization: Need for placement. Quality Stroke Does the patient have a stroke diagnosis?: No VTE Prior VTE?: No VTE Risk Level:: Medical - moderate - high VTE Device Contraindication: Treatment Not Indicated VTE Drug Contraindication: N/A - Med Ordered
--- NOTE | 2021-11-24 12:08 | MHC.CM.PN ---
EMR REVIEWED, PER HOSPITALIST PT REMAINS MEDICALLY CLEARED, THIS CM SPOKE W/PT'S CHRISTOPHER LATE YESTERDAY APPROX 2:40PM AND CHRISTOPHER CONFIRMS HE IS NO LONGER ABLE TO PROVIDE 24HR OUR CARE, CHRISTOPHER REPORTS HE IS DEPENDING ON THE MH IN[facility] AND REPORTS HE HAS NO MONEY FOR PRIVATE PAY OR RESPITE STAY, SNF'S FOLLOWING HAVE BEEN UPDATED VIA [employer].
[2021-11-24 16:42] LABS: Glucose, Whole Blood 188 mg/dL (60-115)
[2021-11-24 20:48] LABS: Glucose, Whole Blood 192 mg/dL (60-115)
[2021-11-24] MEDS: Omeprazole 20 MG CAPSULE.DR PO (20:56)
[2021-11-24] MEDS: Insulin Glargine,Hum.rec.anlog 100 UNIT/ML 10 ML VIAL 20 UNIT SUBCUT (20:56)
[2021-11-24] MEDS: Donepezil HCl 5 MG TABLET PO (20:56)
[2021-11-24] MEDS: QUEtiapine Fumarate 25 MG TABLET PO (20:56)
[2021-11-25] VITALS (7 sets, daily range): BP systolic 122–140; BP diastolic 60–80; PULSE 78–87; RESP 17–18; TEMP 35.9–36.8; O2SAT 94–98
[2021-11-25 07:45] LABS: Glucose, Whole Blood 141 mg/dL (60-115)
[2021-11-25] MEDS: Valsartan 80 MG TABLET PO (07:59)
[2021-11-25] MEDS: Mirabegron 25 MG TAB.ER.24H PO (07:59)
[2021-11-25] MEDS: Metoprolol Succinate ER 25 MG TAB.ER.24H PO (07:59)
[2021-11-25] MEDS: amLODIPine Besylate 5 MG TABLET PO (07:59)
[2021-11-25] MEDS: Aspirin Enteric Coated 81 MG TABLET.DR PO (07:59)
[2021-11-25] MEDS: Multivitamin TABLET 1 TAB PO (07:59)
[2021-11-25] MEDS: Ipratropium Bromide Nas 0.03 % 30 ML SPRAY 2 SPRAY NOSTRIL-B (08:00)
[2021-11-25 11:14] LABS: Glucose, Whole Blood 224 mg/dL (60-115)
[2021-11-25] MEDS: Insulin Lispro 100 UNIT/ML 3 ML VIAL SUBCUT ×2 (11:25→17:19)
--- NOTE | 2021-11-25 12:30 | HO.PM.IMPN ---
Subjective Subjective Date of Service: 11/25/21 Interval History: the patient was seen and evaluated this morning Laying in bed, feels comfortable overall with no complaints No reported other overnight events. Systemic review: Denies fever, chills No chest pain, palpitation No shortness of breath or coughing No abdominal pain, nausea or vomiting No urinary symptoms No any rash or wounds Physical Exam Vital Signs: Vital Signs: Last Vital Signs Temp 97.6 F 11/25/21 11:10 Pulse 78 11/25/21 11:10 Resp 18 11/25/21 11:10 BP 138/63 11/25/21 11:10 Pulse Ox 95 11/25/21 11:10 BMI result Body Mass Index 37.5 Const: Other: Constitutional : Alert, interactive, not in distress Neck : Normal inspection, Supple Cardiovascular : RRR, S1 S2, no lower extremity edema Respiratory : Good bilateral air entry, no crackles, wheezes or rhonchi Gastrointestinal: soft, lax, Normal bowel sounds, Non tender Skin : Warm, Dry Neurological : Alert & oriented x3, No focal deficit Objective Data Active Medications Amlodipine Besylate (Amlodipine Besylate 5 Mg Tablet) 5 mg PO DAILY [facility]; Protocol Last Admin: 11/25/21 07:59 Dose: 5 mg Documented by: ENRIQUETA Aspirin (Aspirin Enteric Coated 81 Mg Tablet.Dr) 81 mg PO DAILY [facility] Last Admin: 11/25/21 07:59 Dose: 81 mg Documented by: ENRIQUETA Baclofen (Baclofen 10 Mg Tablet) 10 mg PO TID PRN PRN Reason: Muscle Spasm Donepezil HCl (Donepezil Hcl 5 Mg Tablet) 5 mg PO BEDTIME [facility] Last Admin: 11/24/21 20:56 Dose: 5 mg Documented by: GERISPolly Insulin Glargine (Insulin Glargine,Hum.Rec.Anlog 100 Unit/Ml 10 Ml Vial) 20 unit SUBCUT BEDTIME [facility] Last Admin: 11/24/21 20:56 Dose: 20 unit Documented by: GERISPolly Insulin Human Lispro (Insulin Lispro 100 Unit/Ml 3 Ml Vial) 0 unit SUBCUT TIDAC [facility]; Protocol Last Admin: 11/25/21 11:25 Dose: 4 unit Documented by: ENRIQUETA Ipratropium [place] (Ipratropium [place] Isaiah 0.03 % 30 Ml [place]) 2 spray NOSTRIL-B BID [facility] Last Admin: 11/25/21 08:00 Dose: 2 spray Documented by: ENRIQUETA Meclizine HCl (Meclizine Hcl 25 Mg Tablet) 25 mg PO BID PRN PRN Reason: Dizziness Melatonin (Melatonin 3 Mg Tablet) 6 mg PO BEDTIME PRN PRN Reason: Insomnia Last Admin: 11/23/21 20:47 Dose: 6 mg Documented by: FLAKO Metoprolol Succinate (Metoprolol Succinate Er 25 Mg Tab.Er.24h) 25 mg PO DAILY [facility]; Protocol Last Admin: 11/25/21 07:59 Dose: 25 mg Documented by: ENRIQUETA Mirabegron (Mirabegron 25 Mg Tab.Er.24h) 25 mg PO DAILY [facility] Last Admin: 11/25/21 07:59 Dose: 25 mg Documented by: ENRIQUETA Multivitamins/Vitamin C (Multivitamin Tablet) 1 tab PO DAILY [facility] Last Admin: 11/25/21 07:59 Dose: 1 tab Documented by: ENRIQUETA Omeprazole (Omeprazole 20 Mg Capsule.Dr) 20 mg PO BEDTIME [facility] Last Admin: 11/24/21 20:56 Dose: 20 mg Documented by: EVELINE Pharmacy Consult (Consult Rx Perform Med Rec) 1 each MISCELLANE ONCE PRN PRN Reason: Consult order Polyethylene Glycol (Polyethylene Glycol 3350 17 Gm Powd.Pack) 17 gm PO DAILY PRN PRN Reason: Constipation Last Admin: 11/19/21 13:59 Dose: 17 gm Documented by: TINY Quetiapine Fumarate (Quetiapine Fumarate 25 Mg Tablet) 25 mg PO BEDTIME [facility] Last Admin: 11/24/21 20:56 Dose: 25 mg Documented by: EVELINE Senna (Sennosides 8.6 Mg Tablet) 17.2 mg PO BEDTIME PRN PRN Reason: Constipation Sodium Chloride (0.9 % Sodium Chloride Flush 3 Ml Syringe) 3 ml IVFLUSH QSHIFT [facility] Last Admin: 11/25/21 07:57 Dose: Not Given Documented by: ENRIQUETA Non-Admin Reason: No Access Valsartan (Valsartan 80 Mg Tablet) 80 mg PO DAILY [facility]; Protocol Last Admin: 11/25/21 07:59 Dose: 80 mg Documented by: ENRIQUETA Labs CBC & Chem 7: 11/17/21 05:59 11/17/21 05:59 Labs: Laboratory Results - last 24 hr 11/24/21 11/24/21 11/25/21 15:38 19:50 07:38 POC Glucose 188 H 192 H 141 H 11/25/21 11:08 POC Glucose 224 H Assessment and Plan (1) Dementia, Lewy body with behavior disturbance: Status: Acute Plan 65F presented with ams, found to have tylenol toxicity toxic metabolic encephalopathy, resolved due to tylenol and codeine overdose, as well as dementia back to her baseline Psychiatry appreciated, patient lacks capacity to make medical decisions will need LTC tylenol toxicity resolved only partially completed NAC protocol Repeated LFT showed improvement, no further treatment required Hyperglycemia 2/2 DM basal bolus insulin SSI lewy body dementia continue aricept htn metoprolol, valsartan, amlodipine reason for continued hospitalization: Need for placement. Quality Stroke Does the patient have a stroke diagnosis?: No VTE Prior VTE?: No VTE Risk Level:: Medical - moderate - high VTE Device Contraindication: Treatment Not Indicated VTE Drug Contraindication: N/A - Med Ordered
--- NOTE | 2021-11-25 13:06 | MHC.CM.PN ---
EMR REVIEWED, PT REMAINS MEDICALLY CLEARED, PT AWAITING BED OFFER AND MH [facility] PENDING, CM AWAITING TO HEAR FROM FS IF PT HAS MH NUMBER YET, PT AND AGREEABLE TO PFIZER BOOSTER AND PT RECEIVED BOOSTER TODAY AT 12:40PM IN LEFT DELTOID FROM [facility]ARMAC[facility], PT AND /HCP CHRISTOPHER BOTH REPORT SHE HAS HAD NO SIDE EFFECTS FROM [facility]. SNF REFERRAL UPDATED AND PT HAS NO BBED OFFERS AT TIME OF THIS NOTE.
[2021-11-25 16:32] LABS: Glucose, Whole Blood 208 mg/dL (60-115)
[2021-11-25] MEDS: Donepezil HCl 5 MG TABLET PO (19:54)
[2021-11-25] MEDS: Melatonin 3 MG TABLET 6 MG PO (19:55)
[2021-11-25] MEDS: Omeprazole 20 MG CAPSULE.DR PO (19:55)
[2021-11-25] MEDS: Baclofen 10 MG TABLET PO (19:55)
[2021-11-25] MEDS: QUEtiapine Fumarate 25 MG TABLET PO (19:55)
[2021-11-25] MEDS: Insulin Glargine,Hum.rec.anlog 100 UNIT/ML 10 ML VIAL 20 UNIT SUBCUT (19:55)
[2021-11-25 20:18] LABS: Glucose, Whole Blood 189 mg/dL (60-115)
[2021-11-26 04:00] VITALS: BP 134/73; PULSE 84; RESP 17; TEMP 36.2; O2SAT 96
[2021-11-26 07:03] VITALS: BP 135/71; PULSE 88; RESP 18; TEMP 36.9; O2SAT 96
[2021-11-26 07:20] LABS: Glucose, Whole Blood 179 mg/dL (60-115)
[2021-11-26] MEDS: Insulin Lispro 100 UNIT/ML 3 ML VIAL SUBCUT ×3 (07:35→17:07)
[2021-11-26] MEDS: Valsartan 80 MG TABLET PO (09:41)
[2021-11-26] MEDS: Multivitamin TABLET 1 TAB PO (09:41)
[2021-11-26] MEDS: amLODIPine Besylate 5 MG TABLET PO (09:41)
[2021-11-26] MEDS: Mirabegron 25 MG TAB.ER.24H PO (09:41)
[2021-11-26] MEDS: Aspirin Enteric Coated 81 MG TABLET.DR PO (09:41)
[2021-11-26] MEDS: Metoprolol Succinate ER 25 MG TAB.ER.24H PO (09:43)
[2021-11-26] MEDS: Ipratropium Bromide Nas 0.03 % 30 ML SPRAY 2 SPRAY NOSTRIL-B ×2 (09:46→20:52)
[2021-11-26 11:16] VITALS: BP 159/72; PULSE 83; RESP 18; TEMP 36.6; O2SAT 96
--- NOTE | 2021-11-26 11:21 | HO.PM.IMPN ---
Subjective Subjective Date of Service: 11/26/21 Interval History: The patient was seen and evaluated this morning Laying in bed, feels comfortable overall with no complaints No reported other overnight events. Systemic review: Denies fever, chills No chest pain, palpitation No shortness of breath or coughing No abdominal pain, nausea or vomiting No urinary symptoms No any rash or wounds Physical Exam Vital Signs: Vital Signs: Last Vital Signs Temp 97.9 F 11/26/21 11:16 Pulse 83 11/26/21 11:16 Resp 18 11/26/21 11:16 BP 159/72 H 11/26/21 11:16 Pulse Ox 96 11/26/21 11:16 BMI result Body Mass Index 37.5 Const: Other: Constitutional : Alert, interactive, not in distress Neck : Normal inspection, Supple Cardiovascular : RRR, S1 S2, no lower extremity edema Respiratory : Good bilateral air entry, no crackles, wheezes or rhonchi Gastrointestinal: soft, lax, Normal bowel sounds, Non tender Skin : Warm, Dry Neurological : Alert & oriented x3, No focal deficit Objective Data Active Medications Amlodipine Besylate (Amlodipine Besylate 5 Mg Tablet) 5 mg PO DAILY [facility]; Protocol Last Admin: 11/26/21 09:41 Dose: 5 mg Documented by: KYRA Aspirin (Aspirin Enteric Coated 81 Mg Tablet.) 81 mg PO DAILY [facility] Last Admin: 11/26/21 09:41 Dose: 81 mg Documented by: KYRA Baclofen (Baclofen 10 Mg Tablet) 10 mg PO TID PRN PRN Reason: Muscle Spasm Last Admin: 11/25/21 19:55 Dose: 10 mg Documented by: CARL Donepezil HCl (Donepezil Hcl 5 Mg Tablet) 5 mg PO BEDTIME [facility] Last Admin: 11/25/21 19:54 Dose: 5 mg Documented by: CARL Insulin Glargine (Insulin Glargine,Hum.Rec.Anlog 100 Unit/Ml 10 Ml Vial) 20 unit SUBCUT BEDTIME [facility] Last Admin: 11/25/21 19:55 Dose: 20 unit Documented by: CARL Insulin Human Lispro (Insulin Lispro 100 Unit/Ml 3 Ml Vial) 0 unit SUBCUT TIDAC [facility]; Protocol Last Admin: 11/26/21 07:35 Dose: 2 unit Documented by: KYRA Ipratropium [place] (Ipratropium [place] Isaiah 0.03 % 30 Ml [place]) 2 spray NOSTRIL-B BID [facility] Last Admin: 11/26/21 09:46 Dose: 2 spray Documented by: KYRA Meclizine HCl (Meclizine Hcl 25 Mg Tablet) 25 mg PO BID PRN PRN Reason: Dizziness Melatonin (Melatonin 3 Mg Tablet) 6 mg PO BEDTIME PRN PRN Reason: Insomnia Last Admin: 11/25/21 19:55 Dose: 6 mg Documented by: CARL Metoprolol Succinate (Metoprolol Succinate Er 25 Mg Tab.Er.24h) 25 mg PO DAILY [facility]; Protocol Last Admin: 11/26/21 09:43 Dose: 25 mg Documented by: KYRA Mirabegron (Mirabegron 25 Mg Tab.Er.24h) 25 mg PO DAILY [facility] Last Admin: 11/26/21 09:41 Dose: 25 mg Documented by: KYRA Multivitamins/Vitamin C (Multivitamin Tablet) 1 tab PO DAILY [facility] Last Admin: 11/26/21 09:41 Dose: 1 tab Documented by: KYRA Omeprazole (Omeprazole 20 Mg Capsule.Dr) 20 mg PO BEDTIME [facility] Last Admin: 11/25/21 19:55 Dose: 20 mg Documented by: CARL Pharmacy Consult (Consult Rx Perform Med Rec) 1 each MISCELLANE ONCE PRN PRN Reason: Consult order Polyethylene Glycol (Polyethylene Glycol 3350 17 Gm Powd.Pack) 17 gm PO DAILY PRN PRN Reason: Constipation Last Admin: 11/19/21 13:59 Dose: 17 gm Documented by: TINY Quetiapine Fumarate (Quetiapine Fumarate 25 Mg Tablet) 25 mg PO BEDTIME [facility] Last Admin: 11/25/21 19:55 Dose: 25 mg Documented by: CARL Senna (Sennosides 8.6 Mg Tablet) 17.2 mg PO BEDTIME PRN PRN Reason: Constipation Sodium Chloride (0.9 % Sodium Chloride Flush 3 Ml Syringe) 3 ml IVFLUSH QSHIFT [facility] Last Admin: 11/26/21 09:47 Dose: Not Given Documented by: KYRA Non-Admin Reason: No Access Valsartan (Valsartan 80 Mg Tablet) 80 mg PO DAILY [facility]; Protocol Last Admin: 11/26/21 09:41 Dose: 80 mg Documented by: KYRA Labs CBC & Chem 7: 11/17/21 05:59 11/17/21 05:59 Labs: Laboratory Results - last 24 hr 11/25/21 11/25/21 11/26/21 16:22 19:50 07:08 POC Glucose 208 H 189 H 179 H Assessment and Plan (1) Toxic metabolic encephalopathy: Status: Acute (2) Dementia, Lewy body with behavior disturbance: Status: Acute Plan 65F presented with ams, found to have tylenol toxicity toxic metabolic encephalopathy, resolved due to tylenol and codeine overdose, as well as dementia back to her baseline Psychiatry appreciated, patient lacks capacity to make medical decisions will need LTC tylenol toxicity resolved only partially completed NAC protocol Repeated LFT showed improvement, no further treatment required Hyperglycemia 2/2 DM basal bolus insulin SSI lewy body dementia continue aricept htn metoprolol, valsartan, amlodipine reason for continued hospitalization: Need for placement. Quality Stroke Does the patient have a stroke diagnosis?: No VTE Prior VTE?: No VTE Risk Level:: Medical - moderate - high VTE Device Contraindication: Treatment Not Indicated VTE Drug Contraindication: N/A - Med Ordered
[2021-11-26 11:35] LABS: Glucose, Whole Blood 217 mg/dL (60-115)
[2021-11-26 15:23] VITALS: BP 122/55; PULSE 82; RESP 18; TEMP 36.9; O2SAT 98
[2021-11-26 16:01] LABS: Glucose, Whole Blood 200 mg/dL (60-115)
[2021-11-26 20:00] VITALS: BP 137/67; PULSE 81; RESP 18; TEMP 36.9; O2SAT 97
[2021-11-26 20:32] LABS: Glucose, Whole Blood 251 mg/dL (60-115)
[2021-11-26] MEDS: Omeprazole 20 MG CAPSULE.DR PO (20:51)
[2021-11-26] MEDS: Insulin Glargine,Hum.rec.anlog 100 UNIT/ML 10 ML VIAL 20 UNIT SUBCUT (20:51)
[2021-11-26] MEDS: QUEtiapine Fumarate 25 MG TABLET PO (20:51)
[2021-11-26] MEDS: Donepezil HCl 5 MG TABLET PO (20:51)
[2021-11-26] MEDS: Melatonin 3 MG TABLET 6 MG PO (20:51)
[2021-11-26] MEDS: Baclofen 10 MG TABLET PO (20:51)
[2021-11-26 23:44] VITALS: BP 143/75; PULSE 83; RESP 18; TEMP 36.6; O2SAT 97
[2021-11-27 03:14] VITALS: BP 139/69; PULSE 87; RESP 18; TEMP 36.5; O2SAT 96
[2021-11-27 07:05] VITALS: BP 130/68; PULSE 87; RESP 18; TEMP 36.9; O2SAT 95
[2021-11-27 07:33] LABS: Glucose, Whole Blood 184 mg/dL (60-115)
[2021-11-27] MEDS: amLODIPine Besylate 5 MG TABLET PO (07:46)
[2021-11-27] MEDS: Metoprolol Succinate ER 25 MG TAB.ER.24H PO (07:46)
[2021-11-27] MEDS: Mirabegron 25 MG TAB.ER.24H PO (07:46)
[2021-11-27] MEDS: Valsartan 80 MG TABLET PO (07:46)
[2021-11-27] MEDS: Aspirin Enteric Coated 81 MG TABLET.DR PO (07:46)
[2021-11-27] MEDS: Ipratropium Bromide Nas 0.03 % 30 ML SPRAY 2 SPRAY NOSTRIL-B ×2 (07:47→22:24)
[2021-11-27] MEDS: Insulin Lispro 100 UNIT/ML 3 ML VIAL SUBCUT ×3 (07:47→16:46)
[2021-11-27] MEDS: Multivitamin TABLET 1 TAB PO (07:47)
--- NOTE | 2021-11-27 10:57 | HO.PM.IMPN ---
Subjective Subjective Date of Service: 11/27/21 Interval History: The patient was seen and evaluated this morning Laying in bed, feels comfortable overall with no complaints No reported other overnight events. Systemic review: Denies fever, chills No chest pain, palpitation No shortness of breath or coughing No abdominal pain, nausea or vomiting No urinary symptoms No any rash or wounds Physical Exam Vital Signs: Vital Signs: Last Vital Signs Temp 98.5 F 11/27/21 07:05 Pulse 87 11/27/21 07:05 Resp 18 11/27/21 07:05 BP 130/68 11/27/21 07:05 Pulse Ox 95 11/27/21 07:05 BMI result Body Mass Index 37.5 Const: Other: Constitutional : Alert, interactive, not in distress Neck : Normal inspection, Supple Cardiovascular : RRR, S1 S2, no lower extremity edema Respiratory : Good bilateral air entry, no crackles, wheezes or rhonchi Gastrointestinal: soft, lax, Normal bowel sounds, Non tender Skin : Warm, Dry Neurological : Alert & oriented x3, No focal deficit Objective Data Active Medications Amlodipine Besylate (Amlodipine Besylate 5 Mg Tablet) 5 mg PO DAILY [facility]; Protocol Last Admin: 11/27/21 07:46 Dose: 5 mg Documented by: CARL Aspirin (Aspirin Enteric Coated 81 Mg Tablet.) 81 mg PO DAILY [facility] Last Admin: 11/27/21 07:46 Dose: 81 mg Documented by: CARL Baclofen (Baclofen 10 Mg Tablet) 10 mg PO TID PRN PRN Reason: Muscle Spasm Last Admin: 11/26/21 20:51 Dose: 10 mg Documented by: CARL Donepezil HCl (Donepezil Hcl 5 Mg Tablet) 5 mg PO BEDTIME [facility] Last Admin: 11/26/21 20:51 Dose: 5 mg Documented by: CARL Insulin Glargine (Insulin Glargine,Hum.Rec.Anlog 100 Unit/Ml 10 Ml Vial) 20 unit SUBCUT BEDTIME [facility] Last Admin: 11/26/21 20:51 Dose: 20 unit Documented by: CARL Insulin Human Lispro (Insulin Lispro 100 Unit/Ml 3 Ml Vial) 0 unit SUBCUT TIDAC [facility]; Protocol Last Admin: 11/27/21 07:47 Dose: 2 unit Documented by: CARL Ipratropium [place] (Ipratropium [place] Isaiah 0.03 % 30 Ml [place]) 2 spray NOSTRIL-B BID [facility] Last Admin: 11/27/21 07:47 Dose: 2 spray Documented by: CARL Meclizine HCl (Meclizine Hcl 25 Mg Tablet) 25 mg PO BID PRN PRN Reason: Dizziness Melatonin (Melatonin 3 Mg Tablet) 6 mg PO BEDTIME PRN PRN Reason: Insomnia Last Admin: 11/26/21 20:51 Dose: 6 mg Documented by: CARL Metoprolol Succinate (Metoprolol Succinate Er 25 Mg Tab.Er.24h) 25 mg PO DAILY [facility]; Protocol Last Admin: 11/27/21 07:46 Dose: 25 mg Documented by: CARL Mirabegron (Mirabegron 25 Mg Tab.Er.24h) 25 mg PO DAILY [facility] Last Admin: 11/27/21 07:46 Dose: 25 mg Documented by: CARL Multivitamins/Vitamin C (Multivitamin Tablet) 1 tab PO DAILY [facility] Last Admin: 11/27/21 07:47 Dose: 1 tab Documented by: CARL Omeprazole (Omeprazole 20 Mg Capsule.Dr) 20 mg PO BEDTIME [facility] Last Admin: 11/26/21 20:51 Dose: 20 mg Documented by: CARL Pharmacy Consult (Consult Rx Perform Med Rec) 1 each MISCELLANE ONCE PRN PRN Reason: Consult order Polyethylene Glycol (Polyethylene Glycol 3350 17 Gm Powd.Pack) 17 gm PO DAILY PRN PRN Reason: Constipation Last Admin: 11/19/21 13:59 Dose: 17 gm Documented by: TINY Quetiapine Fumarate (Quetiapine Fumarate 25 Mg Tablet) 25 mg PO BEDTIME [facility] Last Admin: 11/26/21 20:51 Dose: 25 mg Documented by: CARL Senna (Sennosides 8.6 Mg Tablet) 17.2 mg PO BEDTIME PRN PRN Reason: Constipation Sodium Chloride (0.9 % Sodium Chloride Flush 3 Ml Syringe) 3 ml IVFLUSH QSHIFT [facility] Last Admin: 11/27/21 07:47 Dose: Not Given Documented by: CARL Non-Admin Reason: No Access Valsartan (Valsartan 80 Mg Tablet) 80 mg PO DAILY [facility]; Protocol Last Admin: 11/27/21 07:46 Dose: 80 mg Documented by: CARL Labs CBC & Chem 7: 11/17/21 05:59 11/17/21 05:59 Labs: Laboratory Results - last 24 hr 11/26/21 11/26/21 11/26/21 11:22 15:26 20:04 POC Glucose 217 H 200 H 251 H 11/27/21 07:17 POC Glucose 184 H Assessment and Plan (1) Toxic metabolic encephalopathy: Status: Acute (2) Dementia, Lewy body with behavior disturbance: Status: Acute Plan 65F presented with ams, found to have tylenol toxicity toxic metabolic encephalopathy, resolved due to tylenol and codeine overdose, as well as dementia with Lewy body back to her baseline Psychiatry appreciated, patient lacks capacity to make medical decisions will need LTC tylenol toxicity resolved only partially completed NAC protocol Repeated LFT showed improvement, no further treatment required Hyperglycemia 2/2 DM basal bolus insulin SSI lewy body dementia continue aricept htn metoprolol, valsartan, amlodipine reason for continued hospitalization: Need for placement. Quality Stroke Does the patient have a stroke diagnosis?: No VTE Prior VTE?: No VTE Risk Level:: Medical - moderate - high VTE Device Contraindication: Treatment Not Indicated VTE Drug Contraindication: N/A - Med Ordered
[2021-11-27 11:09] VITALS: BP 132/64; PULSE 81; RESP 18; TEMP 36.8; O2SAT 98
[2021-11-27 11:39] LABS: Glucose, Whole Blood 188 mg/dL (60-115)
[2021-11-27 15:46] VITALS: BP 121/58; PULSE 84; RESP 18; TEMP 36.7; O2SAT 96
[2021-11-27 16:27] LABS: Glucose, Whole Blood 202 mg/dL (60-115)
[2021-11-27 19:32] VITALS: BP 147/65; PULSE 75; RESP 18; TEMP 36.9; O2SAT 96
[2021-11-27 20:28] LABS: Glucose, Whole Blood 177 mg/dL (60-115)
[2021-11-27] MEDS: QUEtiapine Fumarate 25 MG TABLET PO (22:21)
[2021-11-27] MEDS: Donepezil HCl 5 MG TABLET PO (22:21)
[2021-11-27] MEDS: Omeprazole 20 MG CAPSULE.DR PO (22:21)
[2021-11-27] MEDS: Insulin Glargine,Hum.rec.anlog 100 UNIT/ML 10 ML VIAL 20 UNIT SUBCUT (22:21)
[2021-11-27 23:52] VITALS: BP 146/68; PULSE 81; RESP 18; TEMP 36.3; O2SAT 99
[2021-11-28 04:00] VITALS: BP 129/60; PULSE 88; RESP 17; TEMP 36.7; O2SAT 97
[2021-11-28 07:23] VITALS: BP 125/61; PULSE 83; RESP 18; TEMP 36.2; O2SAT 96
[2021-11-28 07:49] LABS: Glucose, Whole Blood 162 mg/dL (60-115)
[2021-11-28] MEDS: amLODIPine Besylate 5 MG TABLET PO (07:58)
[2021-11-28] MEDS: Aspirin Enteric Coated 81 MG TABLET.DR PO (07:58)
[2021-11-28] MEDS: Multivitamin TABLET 1 TAB PO (07:58)
[2021-11-28] MEDS: Valsartan 80 MG TABLET PO (07:59)
[2021-11-28] MEDS: Ipratropium Bromide Nas 0.03 % 30 ML SPRAY 2 SPRAY NOSTRIL-B ×2 (07:59→20:43)
[2021-11-28] MEDS: Metoprolol Succinate ER 25 MG TAB.ER.24H PO (07:59)
[2021-11-28] MEDS: Insulin Lispro 100 UNIT/ML 3 ML VIAL SUBCUT ×3 (07:59→16:57)
[2021-11-28] MEDS: Mirabegron 25 MG TAB.ER.24H PO (07:59)
--- NOTE | 2021-11-28 09:37 | MHC.CM.PN ---
Addendum entered by Ana Ashraf RN 11/28/21 11:49: HOSPITALIST AGREEABLE TO KEEP PT ONE MORE NIGHT WHEN PT'S IS ABLE TO TAKE PT BACK. Original Note: CM CPNTACTED PT'S CHRISTOPHER AT 9:25AM, CHRISTOPHER REPORTS HE WOULD LIKE TO TRY AND TAKE HER HOME AGAIN HOWEVER REPORTS HE IS UNABLE TO DO SO TODAY AND IS REQUESTING A D/C TOMORROW 11/29 BETWEEN 11-11:30AM AND WOULD LIKE VNA SERVICES, VNA REFERRAL UPDATED, WILL DISCUSS W/HOSPITALIST AT ROUNDS.
--- NOTE | 2021-11-28 11:00 | P.CDIC_ITS ---
CDI Concurrent Query Documentation Clarification: PHYSICIAN'S DOCUMENTATION REQUEST Date of Query: 11/28/21 1100 Patient Name: Natalia Nichole Admit Date: 11/15/21 Dear Doctor, A review of the medical record indicates additional documentation may be needed. Please review below and update the documentation accordingly. Clinical Indicators: Risk Factors/Clinical Indicators/Treatments PMH: ED and H&P: Congestive heart failure BNP 67 Metoprolol sulfate 1 Tab PO daily History of Echo performed. Please provide further specificity regarding the most likely type and acuity of CHF you are evaluating, treating, or monitoring. Specifics of the CHF Type: * Systolic * Diastolic * Combined Systolic/Diastolic * Other ? please specify * Unable to determine Acuity: * Chronic * Acute on chronic * Unable to determine Use of terms such as suspected, likely, concern for, or probable (associated with a specific diagnosis that is being evaluated, monitored, or treated as if it exists) are acceptable and can be coded in the inpatient setting, when documented at the time of discharge. Thank you, Kim Ritchie [facility], CDIS Extension: [phone] Please use your independent medical judgment in providing your response. THIS QUERY IS PART OF THE PERMANENT MEDICAL RECORD Provider Response: Other Other Diagnosis: Chronic diastolic CHF not in exacerbation
--- NOTE | 2021-11-28 11:20 | P.PNIM_ITS ---
Subjective Subjective Date of Service: 11/28/21 Interval History: The patient was seen and evaluated this morning Laying in bed, feels comfortable overall with no complaints No reported other overnight events. Systemic review: Denies fever, chills No chest pain, palpitation No shortness of breath or coughing No abdominal pain, nausea or vomiting No urinary symptoms No any rash or wounds Physical Exam Vital Signs: Vital Signs: Last Vital Signs Temp 97.2 F 11/28/21 07:23 Pulse 83 11/28/21 07:23 Resp 18 11/28/21 07:23 BP 125/61 11/28/21 07:23 Pulse Ox 96 11/28/21 07:23 BMI result Body Mass Index 37.5 Const: Other: Constitutional : Alert, interactive, not in distress Neck : Normal inspection, Supple Cardiovascular : RRR, S1 S2, no lower extremity edema Respiratory : Good bilateral air entry, no crackles, wheezes or rhonchi Gastrointestinal: soft, lax, Normal bowel sounds, Non tender Skin : Warm, Dry Neurological : Alert & oriented x3, No focal deficit Objective Data Active Medications Amlodipine Besylate (Amlodipine Besylate 5 Mg Tablet) 5 mg PO DAILY [facility]; Protocol Last Admin: 11/28/21 07:58 Dose: 5 mg Documented by: KYRA Aspirin (Aspirin Enteric Coated 81 Mg Tablet.) 81 mg PO DAILY [facility] Last Admin: 11/28/21 07:58 Dose: 81 mg Documented by: KYRA Baclofen (Baclofen 10 Mg Tablet) 10 mg PO TID PRN PRN Reason: Muscle Spasm Last Admin: 11/26/21 20:51 Dose: 10 mg Documented by: CARL Donepezil HCl (Donepezil Hcl 5 Mg Tablet) 5 mg PO BEDTIME [facility] Last Admin: 11/27/21 22:21 Dose: 5 mg Documented by: FELICIA Insulin Glargine (Insulin Glargine,Hum.Rec.Anlog 100 Unit/Ml 10 Ml Vial) 20 unit SUBCUT BEDTIME [facility] Last Admin: 11/27/21 22:21 Dose: 20 unit Documented by: FELICIA Insulin Human Lispro (Insulin Lispro 100 Unit/Ml 3 Ml Vial) 0 unit SUBCUT TIDAC [facility]; Protocol Last Admin: 11/28/21 07:59 Dose: 2 unit Documented by: KYRA Ipratropium [place] (Ipratropium [place] Isaiah 0.03 % 30 Ml [place]) 2 spray NOSTRIL-B BID [facility] Last Admin: 11/28/21 07:59 Dose: 2 spray Documented by: KYRA Meclizine HCl (Meclizine Hcl 25 Mg Tablet) 25 mg PO BID PRN PRN Reason: Dizziness Melatonin (Melatonin 3 Mg Tablet) 6 mg PO BEDTIME PRN PRN Reason: Insomnia Last Admin: 11/26/21 20:51 Dose: 6 mg Documented by: CARL Metoprolol Succinate (Metoprolol Succinate Er 25 Mg Tab.Er.24h) 25 mg PO DAILY [facility]; Protocol Last Admin: 11/28/21 07:59 Dose: 25 mg Documented by: KYRA Mirabegron (Mirabegron 25 Mg Tab.Er.24h) 25 mg PO DAILY [facility] Last Admin: 11/28/21 07:59 Dose: 25 mg Documented by: KYRA Multivitamins/Vitamin C (Multivitamin Tablet) 1 tab PO DAILY [facility] Last Admin: 11/28/21 07:58 Dose: 1 tab Documented by: KYRA Omeprazole (Omeprazole 20 Mg Capsule.Dr) 20 mg PO BEDTIME [facility] Last Admin: 11/27/21 22:21 Dose: 20 mg Documented by: FELICIA Pharmacy Consult (Consult Rx Perform Med Rec) 1 each MISCELLANE ONCE PRN PRN Reason: Consult order Polyethylene Glycol (Polyethylene Glycol 3350 17 Gm Powd.Pack) 17 gm PO DAILY PRN PRN Reason: Constipation Last Admin: 11/19/21 13:59 Dose: 17 gm Documented by: TINY Quetiapine Fumarate (Quetiapine Fumarate 25 Mg Tablet) 25 mg PO BEDTIME [facility] Last Admin: 11/27/21 22:21 Dose: 25 mg Documented by: FELICIA Senna (Sennosides 8.6 Mg Tablet) 17.2 mg PO BEDTIME PRN PRN Reason: Constipation Sodium Chloride (0.9 % Sodium Chloride Flush 3 Ml Syringe) 3 ml IVFLUSH QSHIFT [facility] Last Admin: 11/28/21 07:59 Dose: Not Given Documented by: KYRA Non-Admin Reason: No Access Valsartan (Valsartan 80 Mg Tablet) 80 mg PO DAILY [facility]; Protocol Last Admin: 11/28/21 07:59 Dose: 80 mg Documented by: KYRA Labs CBC & Chem 7: 11/17/21 05:59 11/17/21 05:59 Labs: Laboratory Results - last 24 hr 11/27/21 11/27/21 11/27/21 11:15 15:48 20:21 POC Glucose 188 H 202 H 177 H 11/28/21 07:22 POC Glucose 162 H Assessment and Plan (1) Toxic metabolic encephalopathy: Status: Acute (2) Dementia, Lewy body with behavior disturbance: Status: Acute Plan 65F presented with ams, found to have tylenol toxicity toxic metabolic encephalopathy, resolved due to tylenol and codeine overdose, as well as dementia with Lewy body back to her baseline Psychiatry appreciated, patient lacks capacity to make medical decisions will need LTC tylenol toxicity resolved only partially completed NAC protocol Repeated LFT showed improvement, no further treatment required Hyperglycemia 2/2 DM basal bolus insulin SSI lewy body dementia continue aricept htn metoprolol, valsartan, amlodipine reason for continued hospitalization: Need for placement VS home discharge with VNA. Quality Stroke Does the patient have a stroke diagnosis?: No VTE Prior VTE?: No VTE Risk Level:: Medical - moderate - high VTE Device Contraindication: Treatment Not Indicated VTE Drug Contraindication: N/A - Med Ordered
[2021-11-28 11:24] LABS: Glucose, Whole Blood 165 mg/dL (60-115)
[2021-11-28 12:00] VITALS: BP 127/67; PULSE 86; RESP 17; TEMP 36.7; O2SAT 99
[2021-11-28 15:28] VITALS: BP 138/69; PULSE 89; RESP 18; TEMP 36.3; O2SAT 98
[2021-11-28 16:30] LABS: Glucose, Whole Blood 196 mg/dL (60-115)
[2021-11-28 19:40] VITALS: BP 144/81; PULSE 68; RESP 16; TEMP 36.3; O2SAT 99
[2021-11-28 19:54] LABS: Glucose, Whole Blood 240 mg/dL (60-115)
[2021-11-28] MEDS: Omeprazole 20 MG CAPSULE.DR PO (20:40)
[2021-11-28] MEDS: Insulin Glargine,Hum.rec.anlog 100 UNIT/ML 10 ML VIAL 20 UNIT SUBCUT (20:40)
[2021-11-28] MEDS: QUEtiapine Fumarate 25 MG TABLET PO (20:40)
[2021-11-28] MEDS: Donepezil HCl 5 MG TABLET PO (20:40)
[2021-11-28 23:44] VITALS: BP 138/68; PULSE 82; RESP 17; TEMP 36.4; O2SAT 97
[2021-11-29 04:00] VITALS: BP 118/59; PULSE 86; RESP 17; TEMP 37.1; O2SAT 97
[2021-11-29] MEDS: Insulin Lispro 100 UNIT/ML 3 ML VIAL SUBCUT (07:23)
[2021-11-29 07:24] LABS: Glucose, Whole Blood 165 mg/dL (60-115)
[2021-11-29 08:00] VITALS: BP 144/73; PULSE 88; RESP 18; TEMP 36.7; O2SAT 99
[2021-11-29] MEDS: Valsartan 80 MG TABLET PO (08:31)
[2021-11-29] MEDS: Mirabegron 25 MG TAB.ER.24H PO (08:32)
[2021-11-29] MEDS: Ipratropium Bromide Nas 0.03 % 30 ML SPRAY 2 SPRAY NOSTRIL-B (08:32)
[2021-11-29] MEDS: Metoprolol Succinate ER 25 MG TAB.ER.24H PO (08:32)
[2021-11-29] MEDS: Aspirin Enteric Coated 81 MG TABLET.DR PO (08:32)
[2021-11-29] MEDS: Multivitamin TABLET 1 TAB PO (08:32)
[2021-11-29] MEDS: amLODIPine Besylate 5 MG TABLET PO (08:32)
--- NOTE | 2021-11-29 09:30 | PM.DS ---
DS: Providers Provider Date of Service: 11/29/21 Date of admission: 11/15/21 19:02 Primary care physician: Chris Rodriguez MD DS: Diagnosis Discharge Diagnosis (1) Toxic metabolic encephalopathy: Status: Acute (2) Dementia, Lewy body with behavior disturbance: Status: Acute (3) Tylenol overdose: Status: Acute (4) Encounter for assessment of decision-making capacity: Status: Acute DS: Summary Hospital Course Hospital Course: Admission note HPI ? 65-year-old female with a past medical history of hypertension, hyperlipidemia, diabetes, CHF, restrictive lung disease, UTI, history of encephalopathy, dementia, obesity, history of bradycardia; presented to the hospital today with a chief complaint of confusion.? ?patient is alert and awake, lying comfortably in the bed;? response to verbal commands but fixated on thoughts; denies any pain.? Denies any fever chills cough.? Spoke to the patient's Ant was as care proxy mentioned that over the past 2 days patient has not been herself, noted to be more confused than her baseline; mentioned that she had a bottle of oxycodone/ Tylenol tablets about 20 which were refilled about 3 days ago and she is supposed to take 1 every 8 hours; and today he noted that her pill bottle is empty.? Concern for possible overdose and presumed she probably took it the night before.?As she was noted to be more confused than her baseline he call EMS and brought her to the hospital for further evaluation.?Denies patient having any signs of fever cough chills or urinary symptoms.? Per ER team patient probably overdose on Tylenol/ oxycodone; barboza currently alert and awake; Tylenol level noted to be 13 and on labs noted to have elevated liver enzymes.? Poison Control was consulted who suggested to start the patient on NAC protocol.? Admitted to the hospital for further management. Hospital course The patient was admitted to the hospital for evaluation of toxic metabolic encephalopathy secondary to incidental Tylenol and codeine overdose. The patient was treated with the NAC protocol which she completed partially with no changes in her liver function test that showed improvement. Center of toxin control was contacted during treatment. Her mentation improved back to baseline. Evaluated by psychiatry team who recommended that the patient lacks capacity to make medical decisions. Plan was to discharge her to memory unit but then her confirmed that he can take care of her at home. Time Spent with Patient Time attestation: Total time spent providing and/or coordinating discharge services: Discharge coordination time: Greater than 30 minutes Quality: Stroke Does the patient have a stroke diagnosis?: No Physical Exam Vital Signs: Vital Signs: Last Vital Signs Temp 98.0 F 11/29/21 08:00 Pulse 88 11/29/21 08:00 Resp 18 11/29/21 08:00 BP 144/73 H 11/29/21 08:00 Pulse Ox 99 11/29/21 08:00 BMI result Body Mass Index 37.5 Const: Other: Constitutional : Alert, interactive, not in distress Neck : Normal inspection, Supple Cardiovascular : RRR, S1 S2, no lower extremity edema Respiratory : Good bilateral air entry, no crackles, wheezes or rhonchi Gastrointestinal: soft, lax, Normal bowel sounds, Non tender Skin : Warm, Dry Neurological : Alert & oriented x3, No focal deficit DS: Data Data Completed and Pending Completed studies during hospitalization [Text1]: Procedures Drainage of Spinal Canal, Percutaneous Approach, Diagnostic (06/23/20) Fluoroscopy of Spinal Cord (06/23/20) Insertion of Infusion Device into Lower Vein, Percutaneous Approach (09/19/21) Introduction of Vasopressor into Central Vein, Percutaneous Approach (09/19/21) Labs on day of discharge: Laboratory Results - last 24 hr 11/28/21 11/28/21 11/28/21 11:12 16:26 19:37 POC Glucose 165 H 196 H 240 H 11/29/21 07:12 POC Glucose 165 H Discharge Plan Discharge Patient Disposition: Home Health Service Discharge Diagnosis: Tylenol overdose Altered mental status Referrals: Sabrina ESPINO [Outside] - 1 Day (GROUP HOME ) Chris Rodriguez MD [Primary Care Provider] - 1 Week (You have a follow up appointment on December 07 at 2:00 pm.) Discharge Medications: Continued quetiapine 25 mg tablet 25 mg PO BEDTIME 0RF atorvastatin 80 mg tablet 1 tab PO DAILY 0RF donepezil 5 mg tablet 1 tab PO DAILY 0RF valsartan 80 mg tablet 1 tab PO DAILY 0RF amlodipine 5 mg tablet 1 tab PO DAILY 0RF aspirin 81 mg tablet,delayed release (DR/EC) 1 tab PO QAM 0RF meclizine 25 mg tablet 1 tab PO BID PRN (Reason: Dizziness) 0RF baclofen 10 mg tablet 1 tab PO TID PRN (Reason: Muscle Spasm) 0RF pantoprazole 40 mg tablet,delayed release (DR/EC) 1 tab PO BEDTIME 0RF hydrochlorothiazide 12.5 mg capsule 1 cap PO DAILY 0RF metoprolol succinate 25 mg tablet extended release 24 hr 1 tab PO DAILY 0RF ipratropium bromide 21 mcg (0.03 %) spray,non-aerosol 2 spray intranasal BID 0RF insulin lispro [Humalog KwikPen Insulin] 100 unit/mL insulin pen 0 sliding scale dose subcut TIDAC 0RF Protocol: Insulin Correction Scale Less than or equal to 110 ---- Give (units): 0 111 to 150 Give (units): 0 151 to 200 Give (units): 2 201 to 250 Give (units): 4 251 to 300 Give (units): 6 301 to 350 Give (units): 8 Greater than 350 Give (units): 10 Call MD if Blood Glucose > : 350 Rx Instructions: sliding scale Lantus Solostar U-100 Insulin 100 unit/mL (3 mL) insulin pen 40 unit subcut BEDTIME 0RF Myrbetriq 25 mg tablet extended release 24 hr 1 tab PO DAILY 0RF multivitamin Tablet 1 tab PO QAM 0RF polyethylene glycol 3350 [ClearLax] 17 gram/dose powder 17 g PO DAILY PRN (Reason: Constipation) 0RF Prolensa 0.07 % drops 1 drp ophthalmic (eye) BEDTIME PRN (Reason: pain) 0RF acetaminophen-codeine 300-30 mg tablet 1 tab PO Q8H PRN (Reason: Pain (Scale Score 7-10)) 0RF Discharge Orders: Discharge Order (Routine); Ordered 11/29/21 Ordered By: Angela Mcneil Diet: advance to usual diet Activity on Discharge: As tolerated Stand Alone Forms: Patient Portal Discharge page Care Plan Goals: Read below Health Concerns: Read below Plan of Treatment: Read below Assessment: Were admitted to the hospital for evaluation of altered mentation after incidental done in all overdose episode. You were treated and monitor during the hospital stay with good response. Discharge Date/Time: 11/29/21 11:13
--- NOTE | 2021-11-29 09:32 | MHC.CM.PN ---
PT REMAINS MEDICALLY CLEARED FOR DISCHARGE, PT AT BEDSIDE AN WILL TRANSPORT PT HOME W/NEW COMFORT PLUS CARE GIVERS FOR SN.
== END 2021-11-29 11:13 | disposition home health service (06) | DRG 917 ==
LOC: HO.ED 17:58 → HO.EDOVER 19:06 → HO.IMC 11-16 01:18 → HO.S3 11-21 15:36
PROVIDERS: Internal Medicine; Physician Assistant; Admitting Provider Hospitalist; Emergency Provider Internal Medicine; PCP Internal Medicine; Visit Provider Student in an Organized Health Care Education/Training Program
DX: T39.1X1A Poisoning by 4-Aminophenol derivatives, accidental (unintentional), initial encounter (principal); G92.8 Other toxic encephalopathy; I11.0 Hypertensive heart disease with heart failure; E78.5 Hyperlipidemia, unspecified; G31.83 Neurocognitive disorder with Lewy bodies; E11.65 Type 2 diabetes mellitus with hyperglycemia; F02.80 Dementia in other diseases classified elsewhere, unspecified severity, without behavioral disturbance, psychotic disturbance, mood disturbance, and anxiety; I50.9 Heart failure, unspecified; E66.9 Obesity, unspecified; Z68.37 Body mass index [BMI] 37.0-37.9, adult; Z20.822 Contact with and (suspected) exposure to COVID-19; Z88.0 Allergy status to penicillin; Z88.2 Allergy status to sulfonamides; Z79.4 Long term (current) use of insulin; Z79.899 Other long term (current) drug therapy
CPT/HCPCS: 36415; 70450; 71045; 80048; 80061; 80076; 80143; 80179; 80307; 81003; 82077; 82140; 82803; 82947; 83735; 83880; 84484; 85025; 85027; 85610; 87635; 93005; 96365; 96375; 97161; 99285; 99291; J0132

== ENCOUNTER 2022-09-28 20:03 | Emergency (ER) | payer MEDICARE, SELFPAY ==
--- NOTE | ~2022-09-28 | CT_ITS ---
EXAMINATION: CT HEAD WITHOUT CONTRAST CLINICAL INFORMATION: Acute mental status change COMPARISON: Head CT 11/15/2021 TECHNIQUE: Imaging was performed from the skull base to vertex without intravenous administration of contrast. This CT examination was performed using dose optimization techniques as appropriate, variously including the following: *Automated exposure control *Adjustment of mA and/or kV according to patient size (this includes techniques or standardized protocols for targeted exams where dose is matched to indication/reason for exam; i.e. extremities or head) *Use of iterative reconstruction technique Total exam dose length product: 738 mGy-cm FINDINGS: No intra or extra-axial fluid collection, hemorrhage, or mass. No ventriculomegaly. No midline shift or herniation. Basal cisterns are patent. [place]-white matter differentiation is maintained. Small areas of encephalomalacia in the occipital lobes left more so than right and upper left cerebellar hemisphere consistent with prior infarcts. Proportional prominence of the ventricles and sulcal spaces is consistent with mild volume loss. Patchy periventricular and deep white matter hypoattenuation is consistent with mild small vessel ischemic changes. No calvarial fracture or soft tissue abnormality. The mastoid air cells and visualized portions of the paranasal sinuses are well aerated. CT/CT head/brain wo IV con IMPRESSION: No acute intracranial pathology.
[2022-09-28 20:15] VITALS: BP 134/96; BP 159/86; PULSE 100; PULSE 96; RESP 20; TEMP 36.6; O2SAT 97; O2SAT 99; BMI 35.6
--- NOTE | 2022-09-28 20:16 | ECG_ITS ---
Test Reason : ALTERED MENTAL STATUS Blood Pressure : / mmHG Vent. Rate : 091 BPM Atrial Rate : 091 BPM P-R Int : 126 ms QRS Dur : 086 ms QT Int : 362 ms P-R-T Axes : -18 014 009 degrees QTc Int : 445 ms Normal sinus rhythm Cannot rule out Inferior infarct , age undetermined Nonspecific ST and T wave abnormality Abnormal ECG When compared with ECG of 15-NOV-2021 15:38, Vent. rate has increased BY 32 BPM Referred By: Leticia Barrett Electronically Signed By:BAIRON IVY
[2022-09-28 20:20] LABS: Glucose, Whole Blood 271 mg/dL (60-115)
--- NOTE | 2022-09-28 20:21 | ED_ITS ---
HPI - General Adult General Chief complaint: Altered Mental Status Stated complaint: AMS Time Seen by Provider: 09/28/22 20:09 Source: EMS Mode of arrival: EMS Limitations: altered mental status History of Present Illness HPI narrative: Patient comes to the emergency room via EMS. EMS reports that at home, patient was trying to take her blood sugar, patient kept dropping stuff, was not unable to check her glucose. Patient's called EMS. Patient became very combative, started yelling and becoming physically aggressive towards PD and EMS. Patient was given in the field 5 mg of Haldol and 2 of Versed. On arrival to the emergency room, patient is calm, cooperative, still altered, keeps saying that she wants to go home. On arrival, point of care glucose 271. Patient unable to give any significant history. Patient has been here multiple times for altered mental status, last time that she was here, patient had a Tylenol overdose. This time, patient denies taking it. However, patient is altered and her history is likely not accurate Related Data Home Medications Medication Instructions Recorded Confirmed amlodipine 5 mg tablet 1 tab PO DAILY 08/06/21 11/15/21 aspirin 81 mg tablet,delayed 1 tab PO QAM 08/06/21 11/15/21 release atorvastatin 80 mg tablet 1 tab PO DAILY 08/06/21 11/15/21 baclofen 10 mg tablet 1 tab PO TID PRN Muscle Spasm 08/06/21 11/15/21 donepezil 5 mg tablet 1 tab PO DAILY 08/06/21 11/15/21 hydrochlorothiazide 12.5 mg capsule 1 cap PO DAILY 08/06/21 11/15/21 insulin glargine 100 unit/mL (3 40 unit subcut BEDTIME 08/06/21 11/15/21 mL) subcutaneous pen (Lantus Solostar U-100 Insulin) insulin lispro 100 unit/mL 0 sliding scale dose subcut TIDAC 08/06/21 11/15/21 subcutaneous pen (Humalog KwikPen (U-100) Insulin) ipratropium bromide 21 mcg (0.03 2 spray intranasal BID 08/06/21 11/15/21 %) nasal spray meclizine 25 mg tablet 1 tab PO BID PRN Dizziness 08/06/21 11/15/21 mirabegron 25 mg tablet,extended 1 tab PO DAILY 08/06/21 11/15/21 release 24 hr (Myrbetriq) pantoprazole 40 mg tablet,delayed 1 tab PO BEDTIME 08/06/21 11/15/21 release quetiapine 25 mg tablet 25 mg PO BEDTIME 08/06/21 11/15/21 valsartan 80 mg tablet 1 tab PO DAILY 08/06/21 11/15/21 bromfenac 0.07 % eye drops 1 drp ophthalmic (eye) BEDTIME PRN 09/19/21 11/15/21 (Prolensa) pain multivitamin 1 tab PO QAM 09/19/21 11/15/21 polyethylene glycol 3350 17 17 g PO DAILY PRN Constipation 09/19/21 11/15/21 gram/dose oral powder (ClearLax) acetaminophen 300 mg-codeine 30 mg 1 tab PO Q8H PRN Pain (Scale Score 11/15/21 11/15/21 tablet 7-10) Previous Rx's Medication Instructions Recorded metoprolol succinate 25 mg 25 mg PO QAM #90 tabs 05/18/22 tablet,extended release 24 hr levofloxacin 500 mg tablet 500 mg PO DAILY #6 tabs 09/28/22 Allergies Allergy/AdvReac Type Severity Reaction Status Date / Time Sulfa (Sulfonamide Allergy Severe DIFFICULTY Verified 09/27/21 13:12 Antibiotics) BREATHING [SULFA (SULFONAMIDE ANTIBIOTICS)] cephalexin [From KEFLEX] Allergy Intermediate RASH,HIVES Verified 09/27/21 13:12 amoxicillin [AMOXICILLIN] Allergy Unknown DENIES Verified 09/27/21 13:12 THIS ALLERGY 03/28/2018 penicillin V Allergy Unknown Unknown Verified 09/27/21 13:12 sumatriptan [From IMITREX] AdvReac Severe HEART Verified 09/27/21 13:12 PALPITATIONS topiramate [From TOPAMAX] AdvReac Severe AGITATION Verified 09/27/21 13:12 Review of Systems Review of Systems: Yes Unobtainable due to mental status PMFSH Past Medical History Medical History Acute hypotension Anxiety Asthma Bradycardia CHF (congestive heart failure) Cortical blindness Dementia, Lewy body with behavior disturbance Diabetes Diabetic acetonemia Dyspnea on exertion Encephalopathy Essential hypertension HTN (hypertension) Hypernatremia Myalgia and myositis Neuropathy Nocturnal hypoxemia Obesity (BMI 30-39.9) Orthopnea Restrictive lung disease Shock 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 Mother Angina at rest Sister Lung cancer Colon cancer COPD (chronic obstructive pulmonary disease) Social History Social History Household Members: Spouse Housing: House Unable to assess alcohol history related to: Unknown Alcohol intake: never Patient Tobacco Use Status: Never used Tobacco Smoked in Last 30 Days: No e-Cigarette/Vaping Use: Never Used Second Hand Smoke Exposure: No Use of substances other than those prescribed or required for medical reasons: No Advance Directives: Yes Advance Directives on File: Yes Advance Directives Date on File: 07/27/20 Patient : No service: No Current occupational status: disabled Current occupation: right handed Sexual orientation: Straight/Heterosexual Physical Exam ED Vital Signs: Vital Signs - 24 hr 09/28/22 20:15 Temperature 97.9 F Pulse Rate 96 Respiratory Rate 20 Blood Pressure 159/86 H Pulse Oximetry 99 Oxygen Delivery Method Room Air BMI result Body Mass Index 35.6 Const Other: Appearance: Alert. Oriented X1, no acute distress Eyes: Pupils equal, round and reactive to light. ENT: Pharynx normal. Neck: Normal inspection. Neck supple. No lymph nodes noted. No crepitus CVS: Normal heart rate and rhythm. Pulses normal. Normal S1 and S2 Respiratory: No respiratory distress. Breath sounds normal. No Wheezing. No rales Abdomen: Soft and nontender. No rigidity. No distention. Skin: Skin warm and dry. Normal skin color. Normal skin turgor. Extremities: No lower extremity edema. No Lacerations. No Rash Neuro: Oriented x1, cranial nerves 2-12 grossly intact, patient able to participate in full assessment Psych: calm, altered Course Course Course Narrative: -patient received 5 mg of IM Haldol and 2 mg of IM Versed per EMS prior to arrival -patient's labs and imaging pending. -patient stable, blood pressure 159/86, heart rate 96, respirations 20, temperature 97.9 degrees, oxygen saturation 99% on room air. Sepsis not suspected. Medications Administered Discontinued Medications Generic Name Dose Route Start Last Admin Trade Name Allison PRN Reason Stop Dose Admin Sodium Chloride 1,000 mls @ 999 mls/hr 09/28/22 20:16 09/28/22 20:59 Ns IVCONT 09/28/22 21:16 999 mls/hr .Q1H1M ONE Administration Insulin Human Regular 10 unit 09/28/22 22:00 09/28/22 22:13 Insulin Regular, Human 100 Unit/Ml 3 Ml Vial IVPUSH 09/28/22 22:01 10 unit ONCE ONE Administration Medical Decision Making Medical Decision Making [facility] [place] Narrative: -patient is awake, alert and oriented x4, no acute distress, ambulatory by herself -patient's is at bedside, agrees the patient is back to baseline. -patient instructed to follow up with the primary care physician, -patient has mild urinary tract infection, patient given the 1st dose of Levaquin in the emergency room The explains that the patient had a recent increased dose of the insulin. Patient is still not 100% compliant with her regimen. At this time, we will not change the dose of her insulin until patient becomes compliant. Patient urged to be compliant and have close follow-up with her primary care physician. Differential Diagnosis Differential Diagnoses: The differential diagnosis associated with the presentation includes (UTI, hyperglycemia, encephalopathy) Lab Data [facility] [place] Lab Attestation statement: I reviewed the patient's lab results. 09/28/22 20:54 09/28/22 20:54 Labs: Lab Results 09/28/22 09/28/22 09/28/22 Range/Units 20:16 20:54 20:54 WBC 11.9 H (4.8-10.8) X10*3/uL RBC 4.66 D (4.20-5.50) X10*6/uL Hgb 14.7 D (12.0-16.0) g/dl Hct 42.1 D (37.0-47.0) % MCV 90.3 (80.0-98.0) fL MCH 31.5 (27.0-33.0) pg MCHC 34.9 (31.0-35.0) g/dl RDW 12.4 (11.0-16.0) % Plt Count 223 (160-400) X10*3/uL MPV 9.4 (9.4-12.3) fL Immature Gran % (Auto) 0.3 (0.0-0.4) % Neut % (Auto) 75.4 H (45-73) % Lymph % (Auto) 16.0 L (20-40) % Spencer % (Auto) 6.6 (2-11) % Eos % (Auto) 1.3 (0-4) % Baso % (Auto) 0.4 (0-2) % Lymph # (Auto) 1.9 (1.2-4.9) X10*3/uL Spencer # (Auto) 0.8 (0.1-1.2) X10*3/uL Eos # (Auto) 0.2 (0.0-0.4) X10*3/uL Baso # (Auto) 0.1 (0.0-0.2) X10*3/uL Abs Immat Gran (auto) 0.04 H (0.00-0.03) X10*3/uL Absolute Neuts (auto) 8.9 H (2.0-8.3) x10*3/uL Absolute Nucleated RBC 0.000 (0.0-0.012) X10*3/uL Nucleated RBC % (auto) 0.0 (0.0-0.2) /100WBC PT (10.0-13.1) SEC INR (0.9-1.1) VBG pH (7.32-7.43) VBG pCO2 mmHg VBG pO2 mmHg VBG HCO3 (22-26) mmol/L VBG O2 Saturation % VBG Base Excess mmol/L Sodium 139 (135-145) mmol/L Potassium 3.9 (3.3-5.1) mmol/L Chloride 102 (96-108) mmol/L Carbon Dioxide 26 (22-29) mmol/L Anion Gap 15 (12-20) BUN 13 (9-16) mg/dL Creatinine 0.88 (0.5-1.4) mg/dL Estim Creat Clear Calc 64.1 Estimated GFR > 60 POC Glucose 271 H (60-115) mg/dL Random Glucose 313 H (60-115) mg/dL Lactic Acid (0.5-2.0) mmol/L Calcium 9.3 (8.4-10.2) mg/dL Magnesium 1.6 (1.6-2.6) mg/dL Total Bilirubin 0.6 (0.0-1.0) mg/dL Direct Bilirubin 0.2 (0.0-0.5) mg/dL AST 10 (5-31) U/L ALT 12 (0-31) U/L Alkaline Phosphatase 87 (39-117) U/L Ammonia (13-55) umol/L Troponin I High Sens (<3.5-17.0) ng/L B-Natriuretic Peptide (<100) pg/mL Total Protein 6.8 (6.5-8.0) g/dL Albumin 4.1 (3.5-5.0) g/dL Urine Color Urine Appearance Urine pH (5.0-9.0) Ur Specific Alleman (1.005-1.025) Urine Protein (Neg-Trace) mg/dL Urine Glucose (UA) (Negative) mg/dL Urine Ketones (Negative) mg/dL Urine Blood (Negative) Urine Nitrite (Negative) Ur Leukocyte Esterase (Negative) Urine RBC (0-2) /HPF Urine WBC (0-5) /HPF Ur Squamous Epith Cells (0-2) /HPF Urine Bacteria (None Seen) Hyaline Casts (0-2) /LPF Salicylates < 5.0 L (15-30) mg/dL Urine Opiates Screen (Not Detect) Urine Fentanyl Screen (Not Detect) Acetaminophen < 17 (<30) mcg/mL Ur Barbiturates Screen (Not Detect) Ur Phencyclidine Scrn (Not Detect) Ur Amphetamines Screen (Not Detect) U Benzodiazepines Scrn (Not Detect) Urine Cocaine Screen (Not Detect) U Marijuana (THC) Screen (Not Detect) Ethyl Alcohol mg/dL COVID-19 (FLOR) (Negative) COVID-19 Clin Com 09/28/22 09/28/22 09/28/22 Range/Units 20:54 20:54 20:54 WBC (4.8-10.8) X10*3/uL RBC (4.20-5.50) X10*6/uL Hgb (12.0-16.0) g/dl Hct (37.0-47.0) % MCV (80.0-98.0) fL MCH (27.0-33.0) pg MCHC (31.0-35.0) g/dl RDW (11.0-16.0) % Plt Count (160-400) X10*3/uL MPV (9.4-12.3) fL Immature Gran % (Auto) (0.0-0.4) % Neut % (Auto) (45-73) % Lymph % (Auto) (20-40) % Spencer % (Auto) (2-11) % Eos % (Auto) (0-4) % Baso % (Auto) (0-2) % Lymph # (Auto) (1.2-4.9) X10*3/uL Spencer # (Auto) (0.1-1.2) X10*3/uL Eos # (Auto) (0.0-0.4) X10*3/uL Baso # (Auto) (0.0-0.2) X10*3/uL Abs Immat Gran (auto) (0.00-0.03) X10*3/uL Absolute Neuts (auto) (2.0-8.3) x10*3/uL Absolute Nucleated RBC (0.0-0.012) X10*3/uL Nucleated RBC % (auto) (0.0-0.2) /100WBC PT (10.0-13.1) SEC INR (0.9-1.1) VBG pH (7.32-7.43) VBG pCO2 mmHg VBG pO2 mmHg VBG HCO3 (22-26) mmol/L VBG O2 Saturation % VBG Base Excess mmol/L Sodium (135-145) mmol/L Potassium (3.3-5.1) mmol/L Chloride (96-108) mmol/L Carbon Dioxide (22-29) mmol/L Anion Gap (12-20) BUN (9-16) mg/dL Creatinine (0.5-1.4) mg/dL Estim Creat Clear Calc Estimated GFR POC Glucose (60-115) mg/dL Random Glucose (60-115) mg/dL Lactic Acid 1.8 (0.5-2.0) mmol/L Calcium (8.4-10.2) mg/dL Magnesium (1.6-2.6) mg/dL Total Bilirubin (0.0-1.0) mg/dL Direct Bilirubin (0.0-0.5) mg/dL AST (5-31) U/L ALT (0-31) U/L Alkaline Phosphatase (39-117) U/L Ammonia (13-55) umol/L Troponin I High Sens < 3.5 (<3.5-17.0) ng/L B-Natriuretic Peptide (<100) pg/mL Total Protein (6.5-8.0) g/dL Albumin (3.5-5.0) g/dL Urine Color Urine Appearance Urine pH (5.0-9.0) Ur Specific Alleman (1.005-1.025) Urine Protein (Neg-Trace) mg/dL Urine Glucose (UA) (Negative) mg/dL Urine Ketones (Negative) mg/dL Urine Blood (Negative) Urine Nitrite (Negative) Ur Leukocyte Esterase (Negative) Urine RBC (0-2) /HPF Urine WBC (0-5) /HPF Ur Squamous Epith Cells (0-2) /HPF Urine Bacteria (None Seen) Hyaline Casts (0-2) /LPF Salicylates (15-30) mg/dL Urine Opiates Screen (Not Detect) Urine Fentanyl Screen (Not Detect) Acetaminophen (<30) mcg/mL Ur Barbiturates Screen (Not Detect) Ur Phencyclidine Scrn (Not Detect) Ur Amphetamines Screen (Not Detect) U Benzodiazepines Scrn (Not Detect) Urine Cocaine Screen (Not Detect) U Marijuana (THC) Screen (Not Detect) Ethyl Alcohol mg/dL COVID-19 (FLOR) Negative (Negative) COVID-19 Clin Com See Note 09/28/22 09/28/22 09/28/22 Range/Units 20:54 20:54 20:54 WBC (4.8-10.8) X10*3/uL RBC (4.20-5.50) X10*6/uL Hgb (12.0-16.0) g/dl Hct (37.0-47.0) % MCV (80.0-98.0) fL MCH (27.0-33.0) pg MCHC (31.0-35.0) g/dl RDW (11.0-16.0) % Plt Count (160-400) X10*3/uL MPV (9.4-12.3) fL Immature Gran % (Auto) (0.0-0.4) % Neut % (Auto) (45-73) % Lymph % (Auto) (20-40) % Spencer % (Auto) (2-11) % Eos % (Auto) (0-4) % Baso % (Auto) (0-2) % Lymph # (Auto) (1.2-4.9) X10*3/uL Spencer # (Auto) (0.1-1.2) X10*3/uL Eos # (Auto) (0.0-0.4) X10*3/uL Baso # (Auto) (0.0-0.2) X10*3/uL Abs Immat Gran (auto) (0.00-0.03) X10*3/uL Absolute Neuts (auto) (2.0-8.3) x10*3/uL Absolute Nucleated RBC (0.0-0.012) X10*3/uL Nucleated RBC % (auto) (0.0-0.2) /100WBC PT (10.0-13.1) SEC INR (0.9-1.1) VBG pH (7.32-7.43) VBG pCO2 mmHg VBG pO2 mmHg VBG HCO3 (22-26) mmol/L VBG O2 Saturation % VBG Base Excess mmol/L Sodium (135-145) mmol/L Potassium (3.3-5.1) mmol/L Chloride (96-108) mmol/L Carbon Dioxide (22-29) mmol/L Anion Gap (12-20) BUN (9-16) mg/dL Creatinine (0.5-1.4) mg/dL Estim Creat Clear Calc Estimated GFR POC Glucose (60-115) mg/dL Random Glucose (60-115) mg/dL Lactic Acid (0.5-2.0) mmol/L Calcium (8.4-10.2) mg/dL Magnesium (1.6-2.6) mg/dL Total Bilirubin (0.0-1.0) mg/dL Direct Bilirubin (0.0-0.5) mg/dL AST (5-31) U/L ALT (0-31) U/L Alkaline Phosphatase (39-117) U/L Ammonia 21 (13-55) umol/L Troponin I High Sens (<3.5-17.0) ng/L B-Natriuretic Peptide 48 (<100) pg/mL Total Protein (6.5-8.0) g/dL Albumin (3.5-5.0) g/dL Urine Color Urine Appearance Urine pH (5.0-9.0) Ur Specific Alleman (1.005-1.025) Urine Protein (Neg-Trace) mg/dL Urine Glucose (UA) (Negative) mg/dL Urine Ketones (Negative) mg/dL Urine Blood (Negative) Urine Nitrite (Negative) Ur Leukocyte Esterase (Negative) Urine RBC (0-2) /HPF Urine WBC (0-5) /HPF Ur Squamous Epith Cells (0-2) /HPF Urine Bacteria (None Seen) Hyaline Casts (0-2) /LPF Salicylates (15-30) mg/dL Urine Opiates Screen (Not Detect) Urine Fentanyl Screen (Not Detect) Acetaminophen (<30) mcg/mL Ur Barbiturates Screen (Not Detect) Ur Phencyclidine Scrn (Not Detect) Ur Amphetamines Screen (Not Detect) U Benzodiazepines Scrn (Not Detect) Urine Cocaine Screen (Not Detect) U Marijuana (THC) Screen (Not Detect) Ethyl Alcohol < 10 mg/dL COVID-19 (FLOR) (Negative) COVID-19 Clin Com 09/28/22 09/28/22 09/28/22 Range/Units 21:04 22:44 23:00 WBC (4.8-10.8) X10*3/uL RBC (4.20-5.50) X10*6/uL Hgb (12.0-16.0) g/dl Hct (37.0-47.0) % MCV (80.0-98.0) fL MCH (27.0-33.0) pg MCHC (31.0-35.0) g/dl RDW (11.0-16.0) % Plt Count (160-400) X10*3/uL MPV (9.4-12.3) fL Immature Gran % (Auto) (0.0-0.4) % Neut % (Auto) (45-73) % Lymph % (Auto) (20-40) % Spencer % (Auto) (2-11) % Eos % (Auto) (0-4) % Baso % (Auto) (0-2) % Lymph # (Auto) (1.2-4.9) X10*3/uL Spencer # (Auto) (0.1-1.2) X10*3/uL Eos # (Auto) (0.0-0.4) X10*3/uL Baso # (Auto) (0.0-0.2) X10*3/uL Abs Immat Gran (auto) (0.00-0.03) X10*3/uL Absolute Neuts (auto) (2.0-8.3) x10*3/uL Absolute Nucleated RBC (0.0-0.012) X10*3/uL Nucleated RBC % (auto) (0.0-0.2) /100WBC PT 11.6 (10.0-13.1) SEC INR 1.0 (0.9-1.1) VBG pH 7.37 (7.32-7.43) VBG pCO2 51 mmHg VBG pO2 39 mmHg VBG HCO3 29 H (22-26) mmol/L VBG O2 Saturation 60.0 % VBG Base Excess 3.5 mmol/L Sodium (135-145) mmol/L Potassium (3.3-5.1) mmol/L Chloride (96-108) mmol/L Carbon Dioxide (22-29) mmol/L Anion Gap (12-20) BUN (9-16) mg/dL Creatinine (0.5-1.4) mg/dL Estim Creat Clear Calc Estimated GFR POC Glucose 230 H (60-115) mg/dL Random Glucose (60-115) mg/dL Lactic Acid (0.5-2.0) mmol/L Calcium (8.4-10.2) mg/dL Magnesium (1.6-2.6) mg/dL Total Bilirubin (0.0-1.0) mg/dL Direct Bilirubin (0.0-0.5) mg/dL AST (5-31) U/L ALT (0-31) U/L Alkaline Phosphatase (39-117) U/L Ammonia (13-55) umol/L Troponin I High Sens (<3.5-17.0) ng/L B-Natriuretic Peptide (<100) pg/mL Total Protein (6.5-8.0) g/dL Albumin (3.5-5.0) g/dL Urine Color Urine Appearance Urine pH (5.0-9.0) Ur Specific Alleman (1.005-1.025) Urine Protein (Neg-Trace) mg/dL Urine Glucose (UA) (Negative) mg/dL Urine Ketones (Negative) mg/dL Urine Blood (Negative) Urine Nitrite (Negative) Ur Leukocyte Esterase (Negative) Urine RBC (0-2) /HPF Urine WBC (0-5) /HPF Ur Squamous Epith Cells (0-2) /HPF Urine Bacteria (None Seen) Hyaline Casts (0-2) /LPF Salicylates (15-30) mg/dL Urine Opiates Screen (Not Detect) Urine Fentanyl Screen (Not Detect) Acetaminophen (<30) mcg/mL Ur Barbiturates Screen (Not Detect) Ur Phencyclidine Scrn (Not Detect) Ur Amphetamines Screen (Not Detect) U Benzodiazepines Scrn (Not Detect) Urine Cocaine Screen (Not Detect) U Marijuana (THC) Screen (Not Detect) Ethyl Alcohol mg/dL COVID-19 (FLOR) (Negative) COVID-19 Clin Com 09/28/22 09/28/22 Range/Units 23:10 23:10 WBC (4.8-10.8) X10*3/uL RBC (4.20-5.50) X10*6/uL Hgb (12.0-16.0) g/dl Hct (37.0-47.0) % MCV (80.0-98.0) fL MCH (27.0-33.0) pg MCHC (31.0-35.0) g/dl RDW (11.0-16.0) % Plt Count (160-400) X10*3/uL MPV (9.4-12.3) fL Immature Gran % (Auto) (0.0-0.4) % Neut % (Auto) (45-73) % Lymph % (Auto) (20-40) % Spencer % (Auto) (2-11) % Eos % (Auto) (0-4) % Baso % (Auto) (0-2) % Lymph # (Auto) (1.2-4.9) X10*3/uL Spencer # (Auto) (0.1-1.2) X10*3/uL Eos # (Auto) (0.0-0.4) X10*3/uL Baso # (Auto) (0.0-0.2) X10*3/uL Abs Immat Gran (auto) (0.00-0.03) X10*3/uL Absolute Neuts (auto) (2.0-8.3) x10*3/uL Absolute Nucleated RBC (0.0-0.012) X10*3/uL Nucleated RBC % (auto) (0.0-0.2) /100WBC PT (10.0-13.1) SEC INR (0.9-1.1) VBG pH (7.32-7.43) VBG pCO2 mmHg VBG pO2 mmHg VBG HCO3 (22-26) mmol/L VBG O2 Saturation % VBG Base Excess mmol/L Sodium (135-145) mmol/L Potassium (3.3-5.1) mmol/L Chloride (96-108) mmol/L Carbon Dioxide (22-29) mmol/L Anion Gap (12-20) BUN (9-16) mg/dL Creatinine (0.5-1.4) mg/dL Estim Creat Clear Calc Estimated GFR POC Glucose (60-115) mg/dL Random Glucose (60-115) mg/dL Lactic Acid (0.5-2.0) mmol/L Calcium (8.4-10.2) mg/dL Magnesium (1.6-2.6) mg/dL Total Bilirubin (0.0-1.0) mg/dL Direct Bilirubin (0.0-0.5) mg/dL AST (5-31) U/L ALT (0-31) U/L Alkaline Phosphatase (39-117) U/L Ammonia (13-55) umol/L Troponin I High Sens (<3.5-17.0) ng/L B-Natriuretic Peptide (<100) pg/mL Total Protein (6.5-8.0) g/dL Albumin (3.5-5.0) g/dL Urine Color Yellow Urine Appearance Clear Urine pH 6.5 (5.0-9.0) Ur Specific Alleman 1.025 (1.005-1.025) Urine Protein 300 (3+) H (Neg-Trace) mg/dL Urine Glucose (UA) >=1000 H (Negative) mg/dL Urine Ketones Trace (Negative) mg/dL Urine Blood Negative (Negative) Urine Nitrite Negative (Negative) Ur Leukocyte Esterase Trace H (Negative) Urine RBC 0-2 (0-2) /HPF Urine WBC 21-50 H (0-5) /HPF Ur Squamous Epith Cells 3-5 (0-2) /HPF Urine Bacteria 4+ (None Seen) Hyaline Casts 0-2 (0-2) /LPF Salicylates (15-30) mg/dL Urine Opiates Screen Not Detected (Not Detect) Urine Fentanyl Screen Not Detected (Not Detect) Acetaminophen (<30) mcg/mL Ur Barbiturates Screen Not Detected (Not Detect) Ur Phencyclidine Scrn Not Detected (Not Detect) Ur Amphetamines Screen Not Detected (Not Detect) U Benzodiazepines Scrn POSITIVE H (Not Detect) Urine Cocaine Screen Not Detected (Not Detect) U Marijuana (THC) Screen Not Detected (Not Detect) Ethyl Alcohol mg/dL COVID-19 (FLOR) (Negative) COVID-19 Clin Com Discharge Plan Discharge Clinical Impression: Altered mental status, Urinary tract infection, Hyperglycemia Patient Disposition: Home, Self-Care Instructions: Urinary Tract Infection in Women (ED), Diabetic Hyperglycemia (ED) Additional Instructions: Please follow-up with your primary care physician tomorrow. If you have any worsening or new symptoms, please return to the emergency room or call 911 Prescriptions: New levofloxacin 500 mg tablet 500 mg PO DAILY Qty: 6 0RF No Action metoprolol succinate 25 mg tablet extended release 24 hr 25 mg PO QAM Qty: 90 1RF quetiapine 25 mg tablet 25 mg PO BEDTIME atorvastatin 80 mg tablet 1 tab PO DAILY donepezil 5 mg tablet 1 tab PO DAILY valsartan 80 mg tablet 1 tab PO DAILY amlodipine 5 mg tablet 1 tab PO DAILY aspirin 81 mg tablet,delayed release (DR/EC) 1 tab PO QAM meclizine 25 mg tablet 1 tab PO BID PRN (Reason: Dizziness) baclofen 10 mg tablet 1 tab PO TID PRN (Reason: Muscle Spasm) pantoprazole 40 mg tablet,delayed release (DR/EC) 1 tab PO BEDTIME hydrochlorothiazide 12.5 mg capsule 1 cap PO DAILY ipratropium bromide 21 mcg (0.03 %) spray,non-aerosol 2 spray intranasal BID insulin lispro [Humalog KwikPen Insulin] 100 unit/mL insulin pen 0 sliding scale dose subcut TIDAC Protocol: Insulin Correction Scale Less than or equal to 110 ---- Give (units): 0 111 to 150 Give (units): 0 151 to 200 Give (units): 2 201 to 250 Give (units): 4 251 to 300 Give (units): 6 301 to 350 Give (units): 8 Greater than 350 Give (units): 10 Call MD if Blood Glucose > : 350 Rx Instructions: sliding scale Lantus Solostar U-100 Insulin 100 unit/mL (3 mL) insulin pen 40 unit subcut BEDTIME Myrbetriq 25 mg tablet extended release 24 hr 1 tab PO DAILY multivitamin Tablet 1 tab PO QAM polyethylene glycol 3350 [ClearLax] 17 gram/dose powder 17 g PO DAILY PRN (Reason: Constipation) Prolensa 0.07 % drops 1 drp ophthalmic (eye) BEDTIME PRN (Reason: pain) acetaminophen-codeine 300-30 mg tablet 1 tab PO Q8H PRN (Reason: Pain (Scale Score 7-10))
[2022-09-28] MEDS: 0.9 % Sodium Chloride 1,000 ML 999 ML IVCONT (20:59)
[2022-09-28 21:03] LABS: MANUAL DIFF FLAG NO
[2022-09-28 21:10] LABS: Basophils Absolute Auto 0.1 X10*3/uL (0.0-0.2); Basophils Percent Auto 0.4 % (0-2); Eosinophils Absolute Auto 0.2 X10*3/uL (0.0-0.4); Eosinophils Percent Auto 1.3 % (0-4); Hematocrit 42.1 % (37.0-47.0); Hemoglobin 14.7 g/dl (12.0-16.0); Imm Gran Abs Auto 0.04 X10*3/uL (0.00-0.03); Imm Gran Pct Auto 0.3 % (0.0-0.4); Lymphocytes Absolute Auto 1.9 X10*3/uL (1.2-4.9); Mean Corpuscular HGB Conc 34.9 g/dl (31.0-35.0); Mean Corpuscular Hemoglobin 31.5 pg (27.0-33.0); Mean Corpuscular Volume 90.3 fL (80.0-98.0); Mean Platelet Volume 9.4 fL (9.4-12.3); Monocytes Absolute Auto 0.8 X10*3/uL (0.1-1.2); Monocytes Percent Auto 6.6 % (2-11); Neutrophils Absolute Auto 8.9 x10*3/uL (2.0-8.3); Neutrophils Percent Auto 75.4 % (45-73); Platelet Count 223 X10*3/uL (160-400); Red Blood Count 4.66 X10*6/uL (4.20-5.50); Red Cell Distribution Width 12.4 % (11.0-16.0); White Blood Count 11.9 X10*3/uL (4.8-10.8)
[2022-09-28 21:12] LABS: VBG Base Excess 3.5 mmol/L; VBG HCO3 29 mmol/L (22-26); VBG pCO2 51 mmHg; VBG pH 7.37 (7.32-7.43); VBG pO2 39 mmHg
[2022-09-28 21:16] LABS: Venous Blood Gas Refer to POC result
[2022-09-28 21:17] LABS: Ammonia 21 umol/L (13-55)
[2022-09-28 21:21] LABS: Lactic Acid 1.8 mmol/L (0.5-2.0)
[2022-09-28 21:24] LABS: COVID-19 Test Negative (Negative); IDNOW Serial# 6674DD1D
[2022-09-28 21:27] LABS: Ethanol < 10 mg/dL
[2022-09-28 21:31] LABS: B Type Natriuretic Peptide 48 pg/mL (<100)
[2022-09-28 21:32] LABS: Troponin-I High Sensitivity < 3.5 ng/L (<3.5-17.0)
[2022-09-28 21:35] LABS: Acetaminophen LAB < 17 mcg/mL (<30); Alanine Aminotransferase 12 U/L (0-31); Albumin Level 4.1 g/dL (3.5-5.0); Alkaline Phosphatase 87 U/L (39-117); Anion Gap 15 (12-20); Aspartate Amino Transferase 10 U/L (5-31); Bilirubin Direct 0.2 mg/dL (0.0-0.5); Bilirubin Total 0.6 mg/dL (0.0-1.0); Blood Urea Nitrogen 13 mg/dL (9-16); Calcium 9.3 mg/dL (8.4-10.2); Carbon Dioxide 26 mmol/L (22-29); Chloride 102 mmol/L (96-108); Creatinine Clr Calc Pharmacy 64.1; Estimated Glomerular Filt Rate > 60; Glucose Random 313 mg/dL (60-115); Magnesium 1.6 mg/dL (1.6-2.6); Potassium 3.9 mmol/L (3.3-5.1); Salicylate < 5.0 mg/dL (15-30); Sodium 139 mmol/L (135-145); Total Protein 6.8 g/dL (6.5-8.0)
--- NOTE | 2022-09-28 22:00 | PC.NURSE ---
IV was placed in right AC and labs drawn shortly after arrival from EMS. Pt. states she just wants to go home . Pt. is alert and oriented to person and place. Pt. currently lying in bed in room with at bedside. Pt. ambulated to bathroom and returned to room. NS is running per NOV.
[2022-09-28] MEDS: Insulin Regular, Human 100 UNIT/ML 3 ML VIAL 10 UNIT IVPUSH (22:13)
--- NOTE | 2022-09-28 22:30 | PC.NURSE ---
Humulin R didn't have any labels in the pyxis, therefore, unable to scan medication at bedside. 10 units IV push administered per NOV.
[2022-09-28 22:49] LABS: Glucose, Whole Blood 230 mg/dL (60-115)
[2022-09-28 23:18] LABS: Appearance Urine Clear; Color Urine Yellow; Glucose Urine UA >=1000 mg/dL (Negative); Leukocyte Esterase Urine Trace (Negative); Nitrite Urine Negative (Negative); PH 6.5 (5.0-9.0); Specific Gravity - Urine 1.025 (1.005-1.025); UMIC TRIGGER UACC YES; Urine Blood Negative (Negative); Urine Ketones Trace mg/dL (Negative); Urine Protein 300 (3+) mg/dL (Neg-Trace)
--- NOTE | 2022-09-28 23:22 | PC.NURSE ---
Pt. is alert and oriented. Pt. ambulated to restroom with steady gait. Urine sample obtained and sent to lab. PT/INR lab not initially received by lab. [place] and sent to lab. Spouse remains at bedside.
[2022-09-28 23:23] LABS: Prothrombin Time 11.6 SEC (10.0-13.1)
[2022-09-28 23:28] LABS: Amphetamine Screen Urine Not Detected (Not Detect); Barbiturates, Urine Not Detected (Not Detect); Benzodiazepines Screen Urine POSITIVE (Not Detect); Cannabinoid Screen Urine Not Detected (Not Detect); Cocaine Screen Urine Not Detected (Not Detect); Fentanyl, urine Not Detected (Not Detect); Opiate Screen Urine Not Detected (Not Detect); Phencyclidine Screen Urine Not Detected (Not Detect)
[2022-09-28 23:30] LABS: Bacteria Urine 4+ (None Seen); Hyaline Casts Urine 0-2 /LPF (0-2); RBC Urine 0-2 /HPF (0-2); UACC Culture Trigger YES; WBC Urine 21-50 /HPF (0-5)
--- NOTE | 2022-09-29 00:09 | PC.NURSE ---
Pt. up to use the restroom. Spouse ran home to get clothes for pt. for discharge. Pt. alert and oriented, ambulating with steady gait.
[2022-09-29] MEDS: levoFLOXacin 500 MG TABLET PO (00:12)
[2022-09-29 00:16] VITALS: BP 151/70; PULSE 98; RESP 18; TEMP 36.7; O2SAT 97
== END 2022-09-29 00:42 | disposition home or self-care (01) ==
PROVIDERS: Emergency Provider Emergency Medicine; PCP Internal Medicine
DX: R41.82 Altered mental status, unspecified (principal); N39.0 Urinary tract infection, site not specified; R06.02 Shortness of breath; R51.9 Headache, unspecified; E11.65 Type 2 diabetes mellitus with hyperglycemia; Z20.822 Contact with and (suspected) exposure to COVID-19; Z20.828 Contact with and (suspected) exposure to other viral communicable diseases; Z79.82 Long term (current) use of aspirin; Z79.4 Long term (current) use of insulin; Z79.899 Other long term (current) drug therapy
CPT/HCPCS: 36415; 70450; 80048; 80076; 80143; 80179; 80307; 81001; 82077; 82140; 82803; 82947; 83605; 83735; 83880; 84484; 85025; 85610; 87040; 87086; 87088; 87147; 87186; 87635; 93005; 96361; 96374; 99284; 99285

== ENCOUNTER 2022-12-05 17:52 | Emergency (ER) | payer MEDICARE, OTHER, SELFPAY ==
--- NOTE | ~2022-12-05 | CT_ITS ---
EXAMINATION: CT ANGIOGRAM NECK WITH CONTRAST CT ANGIOGRAM BRAIN WITH CONTRAST CLINICAL INFORMATION: Left weakness. COMPARISON: CT performed earlier today. Head CTA 04/03/2021.. TECHNIQUE: Test bolus sequences followed by intravenous administration 70 mL of Omnipaque 350. Helical imaging was performed in the axial plane from the thoracic inlet to the skull vertex. Delayed postcontrast imaging of the head was also performed. The data was processed at the geospatial information technologist workstation for generation of MIP sequences. Angled MIPs and volume rendered reformatted images were also generated at an offline 3D workstation. Stenoses are assessed in accordance with NASCET criteria unless otherwise indicated. This CT examination was performed using dose optimization techniques as appropriate, variously including the following: *Automated exposure control *Adjustment of mA and/or kV according to patient size (this includes techniques or standardized protocols for targeted exams where dose is matched to indication/reason for exam; i.e. extremities or head) *Use of iterative reconstruction technique DLP: 1454 mGy-cm FINDINGS: Head CT: There is no intracranial hemorrhage, extra-axial collection, mass effect, or acute large territorial infarction. Chronic infarcts are seen within the bilateral occipital lobes.. Additional chronic infarcts are seen within the bilateral thalami, lesli, and bilateral cerebellar hemispheres. There is no abnormal enhancement. The dural venous sinuses appear grossly normal. The ventricles are normal in size without hydrocephalus. There is near complete opacification of the nasal cavities. Neck CTA: Aortic arch and great vessel origins are patent. The common carotid arteries are patent. Atheromatous changes are seen at the right carotid bifurcation and along the proximal right internal carotid artery resulting in 70% stenosis of the proximal right internal carotid artery. Atheromatous changes at the proximal left internal carotid artery results in 65% stenosis. There is calcific plaque narrowing the origins of both vertebral arteries. Both vertebral arteries are patent the right side being dominant. Head CTA: Atheromatous changes are seen along the intradural vertebral arteries. The left vertebral artery appears occluded in its distal post PICA segment. Right vertebral artery demonstrates atheromatous changes but is patent. The basilar artery is small in caliber and demonstrates multifocal stenosis including severe stenosis in its upper segment. Significant atheromatous changes are seen involving both ops manager with moderate stenosis demonstrated. There is focal moderate to severe stenosis of the right superior cerebellar artery. Atheromatous changes are seen at the carotid siphons resulting moderate stenosis. Intracranial ICAs are patent. Atheromatous changes are seen involving both MCAs without high-grade narrowing. The ACAs are patent. No aneurysm is seen. Non-vascular findings: The upper lungs are clear. A fusion construct is partially imaged within the thoracic spine. There is no evidence of screw or mickey fracture. CT/CT angio head neck stroke IMPRESSION: CT HEAD: No intracranial hemorrhage or large acute infarction. Chronic infarcts seen within the bilateral occipital lobes, bilateral thalami, lesli, and cerebellar hemispheres. CTA NECK: Atheromatous changes at the bilateral carotid bifurcations and proximal internal carotid arteries resulting in 70% stenosis of the proximal right internal carotid artery and 65% stenosis of the proximal left internal carotid artery. 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 Right vertebral artery is patent. Basilar artery is small in caliber and demonstrates multifocal stenosis including severe stenosis in its upper segment. Moderate stenosis of both ops manager. Moderate stenosis of the carotid siphons. This critical result was discussed with Dr. Pereira on 12/05/2022 6:53 PM, and it was ascertained that the content and urgency of the report was understood at the time of direct communication.
--- NOTE | ~2022-12-05 | CT_ITS ---
EXAMINATION: CT HEAD WITHOUT CONTRAST (STROKE PROTOCOL) CLINICAL INFORMATION: Stroke protocol. Left-sided weakness. COMPARISON: CT head 09/28/2022 TECHNIQUE: Contiguous axial imaging was performed from the skull base to vertex without intravenous administration of contrast. Coronal and sagittal reformatted images are performed at CT scanner This CT examination was performed using dose optimization techniques as appropriate, variously including the following: *Automated exposure control *Adjustment of mA and/or kV according to patient size (this includes techniques or standardized protocols for targeted exams where dose is matched to indication/reason for exam; i.e. extremities or head) *Use of iterative reconstruction technique DLP: 847 mGy-cm FINDINGS: Focal encephalomalacia from old infarct in the right and left occipital lobes unchanged since CAT scan 09/28/2022. No intraventricular extra-axial fluid collections. No intracranial hemorrhage or mass effect. No midline shift. Valverde-white differentiation is maintained. No acute osseous abnormality. Visualized paranasal sinuses and mastoid air cells are normally aerated. CT/CT head for stroke IMPRESSION: No acute intracranial pathology. This critical result was discussed with Michael Pereira at 1820 hours on 12/05/2022. It was ascertained that the content and urgency of the report was understood at the time of direct communication.
--- NOTE | 2022-12-05 18:00 | ECG_ITS ---
Test Reason : WEAKNESS Blood Pressure : / mmHG Vent. Rate : 095 BPM Atrial Rate : 095 BPM P-R Int : 112 ms QRS Dur : 098 ms QT Int : 344 ms P-R-T Axes : 063 059 -53 degrees QTc Int : 432 ms Normal sinus rhythm Low voltage QRS ST & T wave abnormality, consider inferolateral ischemia Abnormal ECG When compared with ECG of 28-SEP-2022 20:36, T wave inversion more evident in Inferior leads T wave inversion now evident in Lateral leads Referred By: Michael Pereira Electronically Signed By:Jose Otero
[2022-12-05 18:01] VITALS: BP 136/61; PULSE 95; RESP 16; TEMP 36.7; O2SAT 96
--- NOTE | 2022-12-05 18:01 | ED_ITS ---
HPI - Neuro Symptoms/Deficit General Chief Complaint: Stroke Stated Complaint: Stroke? Time Seen by Provider: 12/05/22 17:59 Source: patient, family, EMS and old records reviewed History of Present Illness HPI Narrative: Patient presents with a sudden inability to speak word-finding difficulties. EMS found patient to have left hand weakness but with a question of a right facial droop. She has a history of presentations for altered mental status in the past with varying etiologies. She has a history of insulin-dependent diabetes and attends have a blood sugar in the 200 range. EMS found her to have a blood sugar of 89. Related Data Home Medications Medication Instructions Recorded Confirmed amlodipine 5 mg tablet 1 tab PO DAILY 08/06/21 11/15/21 aspirin 81 mg tablet,delayed 1 tab PO QAM 08/06/21 11/15/21 release atorvastatin 80 mg tablet 1 tab PO DAILY 08/06/21 11/15/21 baclofen 10 mg tablet 1 tab PO TID PRN Muscle Spasm 08/06/21 11/15/21 donepezil 5 mg tablet 1 tab PO DAILY 08/06/21 11/15/21 hydrochlorothiazide 12.5 mg capsule 1 cap PO DAILY 08/06/21 11/15/21 insulin glargine 100 unit/mL (3 40 unit subcut BEDTIME 08/06/21 11/15/21 mL) subcutaneous pen (Lantus Solostar U-100 Insulin) insulin lispro 100 unit/mL 0 sliding scale dose subcut TIDAC 08/06/21 11/15/21 subcutaneous pen (Humalog KwikPen (U-100) Insulin) ipratropium bromide 21 mcg (0.03 2 spray intranasal BID 08/06/21 11/15/21 %) nasal spray meclizine 25 mg tablet 1 tab PO BID PRN Dizziness 08/06/21 11/15/21 mirabegron 25 mg tablet,extended 1 tab PO DAILY 08/06/21 11/15/21 release 24 hr (Myrbetriq) pantoprazole 40 mg tablet,delayed 1 tab PO BEDTIME 08/06/21 11/15/21 release quetiapine 25 mg tablet 25 mg PO BEDTIME 08/06/21 11/15/21 valsartan 80 mg tablet 1 tab PO DAILY 08/06/21 11/15/21 bromfenac 0.07 % eye drops 1 drp ophthalmic (eye) BEDTIME PRN 09/19/21 11/15/21 (Prolensa) pain multivitamin 1 tab PO QAM 09/19/21 11/15/21 polyethylene glycol 3350 17 17 g PO DAILY PRN Constipation 09/19/21 11/15/21 gram/dose oral powder (ClearLax) acetaminophen 300 mg-codeine 30 mg 1 tab PO Q8H PRN Pain (Scale Score 11/15/21 11/15/21 tablet 7-10) Previous Rx's Medication Instructions Recorded metoprolol succinate 25 mg 25 mg PO QAM #90 tabs 05/18/22 tablet,extended release 24 hr levofloxacin 500 mg tablet 500 mg PO DAILY #6 tabs 09/28/22 levofloxacin 500 mg tablet 500 mg PO DAILY #7 tabs 12/05/22 Allergies Allergy/AdvReac Type Severity Reaction Status Date / Time Sulfa (Sulfonamide Allergy Severe DIFFICULTY Verified 12/05/22 18:20 Antibiotics) BREATHING [SULFA (SULFONAMIDE ANTIBIOTICS)] cephalexin [From KEFLEX] Allergy Intermediate RASH,HIVES Verified 12/05/22 18:20 amoxicillin [AMOXICILLIN] Allergy Unknown DENIES Verified 12/05/22 18:20 THIS ALLERGY 03/28/2018 penicillin V Allergy Unknown Unknown Verified 12/05/22 18:20 sumatriptan [From IMITREX] AdvReac Severe HEART Verified 12/05/22 18:20 PALPITATIONS topiramate [From TOPAMAX] AdvReac Severe AGITATION Verified 12/05/22 18:20 Review of Systems Review of Systems: Unable to obtain review of systems from patient as she is agitated with an altered mental status and appears confused and is unable to follow instructions Constitutional: Comments: Patient has been agitated. 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 Mother Angina at rest Sister Lung cancer Colon cancer COPD (chronic obstructive pulmonary disease) Social History Social History Household Members: Spouse Housing: House Unable to assess alcohol history related to: Unknown Alcohol intake: never Patient Tobacco Use Status: Never used Tobacco Smoked in Last 30 Days: No e-Cigarette/Vaping Use: Never Used Second Hand Smoke Exposure: No Use of substances other than those prescribed or required for medical reasons: No Advance Directives: Yes Advance Directives on File: Yes Advance Directives Date on File: 07/27/20 Patient : No service: No Current occupational status: disabled Current occupation: right handed Sexual orientation: Straight/Heterosexual Physical Exam Vital Signs: Vital Signs: Last Vital Signs Temp 97.6 F 12/05/22 21:01 Pulse 96 12/05/22 21:01 Resp 16 12/05/22 21:01 BP 136/64 12/05/22 21:01 Pulse Ox 96 12/05/22 21:01 O2 Del Method Room Air 12/05/22 21:01 BMI result Body Mass Index 35.7 Const: Other: Awake and mildly agitated HEENT: Other: Normocephalic atraumatic Resp: Other: Clear and equal bilaterally Cardio: Other: Regular rate and rhythm without murmurs rubs or gallops GI: Other: Soft nontender nondistended Skin: Other: Warm pink and dry without rash Neuro: Other: On my exam, patient without obvious facial droop. She is unable to perform pronator drift testing. Marketing Intelligence Manager strength appears stop equal bilaterally. She does not comply with lifting legs of stretcher. Extrem: Other: Significant pedal edema Medications Administered Discontinued Medications Generic Name Dose Route Start Last Admin Trade Name Freq PRN Reason Stop Dose Admin Sodium Chloride 500 mls @ 500 mls/hr 12/05/22 18:15 12/05/22 20:29 Ns IV 12/05/22 19:14 Infused .Q1H FRANCHESKA Infusion Iohexol 100 ml 12/05/22 18:31 12/05/22 18:31 Iohexol 350 Mg/Ml 100 Ml Infus..Btl IV 12/05/22 18:32 70 ml ONCE ONE Administration Medical Decision Making Medical Decision Making MDM Narrative: Patient with acute altered mental status with question of focal neurologic findings. On my exam I am unable to elicit focal findings but patient is unable to comply with full neuro exam. Will call as a stroke alert. Stroke, ischemic versus hemorrhagic is possible. Metabolic encephalopathy or relative hypoglycemia could be playing a part. Will treat with IV dextrose. Will also treat with gentle IV fluid bolus. Await labs including CBC, chemistries, thyroid testing, ammonia. 19:39. Patient's blood sugar point of care here in the emergency department is 135, therefore dextrose held. CT scan shows no evidence of acute infarction or hemorrhage. CT angiography shows no acute large vessel occlusion or other actionable items. Both scans show diffuse old vascular disease pattern with multiple old infarcts. Given this, it is unclear patient is having an acute infarct or behavioral crisis. Her neuro deficit seems to be intermittent in that she occasionally can speak clearly. Her left arm shows some pronator drift sometimes but otherwise she can use it normally. She is not a thrombolytic candidate based on timing and the above findings and the probable non stroke cause of her symptoms. 21:19. Patient states she is feeling much better. She is now neurologically back to baseline. She has normal speech and no weakness. Workup shows a white count of 13.5. Chemistries show BUN of 21 but normal creatinine. Glucose is 130. Troponin is normal. TSH is normal. Ammonia is normal. Urinalysis is still pending however. Patient states she feels fine and would like to go home. The last time she was here with agitation similar to this she had a urinary tract infection. Will wait for urinalysis results. And 20 21:00. Urinalysis confirms urinary tract infection. Review of last UTI shows E coli sensitive to quinolones. Will start on Levaquin as she has been otherwise multi antibiotic allergic. Lab Data 12/05/22 19:44 12/05/22 19:44 Labs: Lab Results 12/05/22 12/05/22 12/05/22 Range/Units 19:01 19:44 19:44 WBC 13.5 H (4.8-10.8) X10*3/uL RBC 4.49 (4.20-5.50) X10*6/uL Hgb 14.0 (12.0-16.0) g/dl Hct 41.1 (37.0-47.0) % MCV 91.5 (80.0-98.0) fL MCH 31.2 (27.0-33.0) pg MCHC 34.1 (31.0-35.0) g/dl RDW 14.1 (11.0-16.0) % Plt Count 214 (160-400) X10*3/uL MPV 10.3 (9.4-12.3) fL Immature Gran % (Auto) 0.4 (0.0-0.4) % Neut % (Auto) 75.4 H (45-73) % Lymph % (Auto) 16.3 L (20-40) % [place] % (Auto) 7.2 (2-11) % Eos % (Auto) 0.4 (0-4) % Baso % (Auto) 0.3 (0-2) % Lymph # (Auto) 2.2 (1.2-4.9) X10*3/uL [place] # (Auto) 1.0 (0.1-1.2) X10*3/uL Eos # (Auto) 0.1 (0.0-0.4) X10*3/uL Baso # (Auto) 0.0 (0.0-0.2) X10*3/uL Abs Immat Gran (auto) 0.06 H (0.00-0.03) X10*3/uL Absolute Neuts (auto) 10.2 H (2.0-8.3) x10*3/uL Absolute Nucleated RBC 0.000 (0.0-0.012) X10*3/uL Nucleated RBC % (auto) 0.0 (0.0-0.2) /100WBC D-Dimer High Sensitivty NG/ML Sodium 140 (135-145) mmol/L Potassium 3.3 (3.3-5.1) mmol/L Chloride 107 (96-108) mmol/L Carbon Dioxide 20 L (22-29) mmol/L Anion Gap 16 (12-20) BUN 21 H (9-16) mg/dL Creatinine 0.76 (0.5-1.4) mg/dL Estim Creat Clear Calc 74.4 Estimated GFR > 60 POC Glucose 135 H (60-115) mg/dL Random Glucose 130 H (60-115) mg/dL Calcium 9.7 (8.4-10.2) mg/dL Total Bilirubin 1.3 H (0.0-1.0) mg/dL AST 36 H (5-31) U/L ALT 20 (0-31) U/L Alkaline Phosphatase 80 (39-117) U/L Ammonia (13-55) umol/L Troponin I High Sens (<3.5-17.0) ng/L Total Protein 7.2 (6.5-8.0) g/dL Albumin 4.4 (3.5-5.0) g/dL TSH (0.32-4.0) uIU/mL Urine Color Urine Appearance Urine pH (5.0-9.0) Ur Specific [place] (1.005-1.025) Urine Protein (Neg-Trace) mg/dL Urine Glucose (UA) (Negative) mg/dL Urine Ketones (Negative) mg/dL Urine Blood (Negative) Urine Nitrite (Negative) Ur Leukocyte Esterase (Negative) Urine RBC (0-2) /HPF Urine WBC (0-5) /HPF Ur Squamous Epith Cells (0-2) /HPF Urine Bacteria (None Seen) Hyaline Casts (0-2) /LPF Ethyl Alcohol mg/dL COVID-19 (FLOR) (Negative) COVID-19 Clin Com 12/05/22 12/05/22 12/05/22 Range/Units 19:44 19:44 19:44 WBC (4.8-10.8) X10*3/uL RBC (4.20-5.50) X10*6/uL Hgb (12.0-16.0) g/dl Hct (37.0-47.0) % MCV (80.0-98.0) fL MCH (27.0-33.0) pg MCHC (31.0-35.0) g/dl RDW (11.0-16.0) % Plt Count (160-400) X10*3/uL MPV (9.4-12.3) fL Immature Gran % (Auto) (0.0-0.4) % Neut % (Auto) (45-73) % Lymph % (Auto) (20-40) % [place] % (Auto) (2-11) % Eos % (Auto) (0-4) % Baso % (Auto) (0-2) % Lymph # (Auto) (1.2-4.9) X10*3/uL [place] # (Auto) (0.1-1.2) X10*3/uL Eos # (Auto) (0.0-0.4) X10*3/uL Baso # (Auto) (0.0-0.2) X10*3/uL Abs Immat Gran (auto) (0.00-0.03) X10*3/uL Absolute Neuts (auto) (2.0-8.3) x10*3/uL Absolute Nucleated RBC (0.0-0.012) X10*3/uL Nucleated RBC % (auto) (0.0-0.2) /100WBC D-Dimer High Sensitivty < 150 NG/ML Sodium (135-145) mmol/L Potassium (3.3-5.1) mmol/L Chloride (96-108) mmol/L Carbon Dioxide (22-29) mmol/L Anion Gap (12-20) BUN (9-16) mg/dL Creatinine (0.5-1.4) mg/dL Estim Creat Clear Calc Estimated GFR POC Glucose (60-115) mg/dL Random Glucose (60-115) mg/dL Calcium (8.4-10.2) mg/dL Total Bilirubin (0.0-1.0) mg/dL AST (5-31) U/L ALT (0-31) U/L Alkaline Phosphatase (39-117) U/L Ammonia (13-55) umol/L Troponin I High Sens 4.3 (<3.5-17.0) ng/L Total Protein (6.5-8.0) g/dL Albumin (3.5-5.0) g/dL TSH (0.32-4.0) uIU/mL Urine Color Urine Appearance Urine pH (5.0-9.0) Ur Specific [place] (1.005-1.025) Urine Protein (Neg-Trace) mg/dL Urine Glucose (UA) (Negative) mg/dL Urine Ketones (Negative) mg/dL Urine Blood (Negative) Urine Nitrite (Negative) Ur Leukocyte Esterase (Negative) Urine RBC (0-2) /HPF Urine WBC (0-5) /HPF Ur Squamous Epith Cells (0-2) /HPF Urine Bacteria (None Seen) Hyaline Casts (0-2) /LPF Ethyl Alcohol mg/dL COVID-19 (FLOR) Negative (Negative) COVID-19 Clin Com See Note 12/05/22 12/05/22 12/05/22 Range/Units 19:44 19:44 22:08 WBC (4.8-10.8) X10*3/uL RBC (4.20-5.50) X10*6/uL Hgb (12.0-16.0) g/dl Hct (37.0-47.0) % MCV (80.0-98.0) fL MCH (27.0-33.0) pg MCHC (31.0-35.0) g/dl RDW (11.0-16.0) % Plt Count (160-400) X10*3/uL MPV (9.4-12.3) fL Immature Gran % (Auto) (0.0-0.4) % Neut % (Auto) (45-73) % Lymph % (Auto) (20-40) % [place] % (Auto) (2-11) % Eos % (Auto) (0-4) % Baso % (Auto) (0-2) % Lymph # (Auto) (1.2-4.9) X10*3/uL [place] # (Auto) (0.1-1.2) X10*3/uL Eos # (Auto) (0.0-0.4) X10*3/uL Baso # (Auto) (0.0-0.2) X10*3/uL Abs Immat Gran (auto) (0.00-0.03) X10*3/uL Absolute Neuts (auto) (2.0-8.3) x10*3/uL Absolute Nucleated RBC (0.0-0.012) X10*3/uL Nucleated RBC % (auto) (0.0-0.2) /100WBC D-Dimer High Sensitivty NG/ML Sodium (135-145) mmol/L Potassium (3.3-5.1) mmol/L Chloride (96-108) mmol/L Carbon Dioxide (22-29) mmol/L Anion Gap (12-20) BUN (9-16) mg/dL Creatinine (0.5-1.4) mg/dL Estim Creat Clear Calc Estimated GFR POC Glucose (60-115) mg/dL Random Glucose (60-115) mg/dL Calcium (8.4-10.2) mg/dL Total Bilirubin (0.0-1.0) mg/dL AST (5-31) U/L ALT (0-31) U/L Alkaline Phosphatase (39-117) U/L Ammonia 37 (13-55) umol/L Troponin I High Sens (<3.5-17.0) ng/L Total Protein (6.5-8.0) g/dL Albumin (3.5-5.0) g/dL TSH 1.13 (0.32-4.0) uIU/mL Urine Color Yellow Urine Appearance Clear Urine pH 6.0 (5.0-9.0) Ur Specific [place] >= 1.030 H (1.005-1.025) Urine Protein Trace (Neg-Trace) mg/dL Urine Glucose (UA) Negative (Negative) mg/dL Urine Ketones 15 (Negative) mg/dL Urine Blood Trace H (Negative) Urine Nitrite Negative (Negative) Ur Leukocyte Esterase Small (1+) H (Negative) Urine RBC 0-2 (0-2) /HPF Urine WBC 21-50 H (0-5) /HPF Ur Squamous Epith Cells 3-5 (0-2) /HPF Urine Bacteria None Seen (None Seen) Hyaline Casts 0-2 (0-2) /LPF Ethyl Alcohol < 10 mg/dL COVID-19 (FLOR) (Negative) COVID-19 Clin Com NIH Stroke Scale Internal: Initial- Upon Arrival Level of Consciousness: Alert Level of Consciousness Questions: Answers both questions correctly Level of Consciousness Commands: Performs both tasks correctly Best Gaze: Normal Visual: No visual loss Facial Palsy: Normal Motor Arm (Right): No drift Motor Arm (Left): Drift Motor Leg (Right): No drift Motor Leg (Left): No drift Limb Ataxia: Absent Sensory: Normal Best Language: Mild to moderate aphasia Dysarthia: Normal Extinction and Inattention: No abnormality Score: 2 Discharge Plan Discharge Clinical Impression: Acute confusion, Urinary tract infection Patient Disposition: Home, Self-Care Instructions: Urinary Tract Infection in Women (ED), Acute Delirium (ED) Additional Instructions: Your workup today showed by urinary tract infection mild dehydration. Her CT scans showed no acute findings. Be sure to drink plenty of water and take antibiotic as prescribed Prescriptions: New levofloxacin 500 mg tablet 500 mg PO DAILY Qty: 7 0RF No Action metoprolol succinate 25 mg tablet extended release 24 hr 25 mg PO QAM Qty: 90 1RF quetiapine 25 mg tablet 25 mg PO BEDTIME atorvastatin 80 mg tablet 1 tab PO DAILY donepezil 5 mg tablet 1 tab PO DAILY valsartan 80 mg tablet 1 tab PO DAILY amlodipine 5 mg tablet 1 tab PO DAILY aspirin 81 mg tablet,delayed release (DR/EC) 1 tab PO QAM meclizine 25 mg tablet 1 tab PO BID PRN (Reason: Dizziness) baclofen 10 mg tablet 1 tab PO TID PRN (Reason: Muscle Spasm) pantoprazole 40 mg tablet,delayed release (DR/EC) 1 tab PO BEDTIME hydrochlorothiazide 12.5 mg capsule 1 cap PO DAILY ipratropium bromide 21 mcg (0.03 %) spray,non-aerosol 2 spray intranasal BID insulin lispro [Humalog KwikPen Insulin] 100 unit/mL insulin pen 0 sliding scale dose subcut TIDAC Protocol: Insulin Correction Scale Less than or equal to 110 ---- Give (units): 0 111 to 150 Give (units): 0 151 to 200 Give (units): 2 201 to 250 Give (units): 4 251 to 300 Give (units): 6 301 to 350 Give (units): 8 Greater than 350 Give (units): 10 Call MD if Blood Glucose > : 350 Rx Instructions: sliding scale Lantus Solostar U-100 Insulin 100 unit/mL (3 mL) insulin pen 40 unit subcut BEDTIME Myrbetriq 25 mg tablet extended release 24 hr 1 tab PO DAILY multivitamin Tablet 1 tab PO QAM polyethylene glycol 3350 [ClearLax] 17 gram/dose powder 17 g PO DAILY PRN (Reason: Constipation) Prolensa 0.07 % drops 1 drp ophthalmic (eye) BEDTIME PRN (Reason: pain) acetaminophen-codeine 300-30 mg tablet 1 tab PO Q8H PRN (Reason: Pain (Scale Score 7-10)) levofloxacin 500 mg tablet 500 mg PO DAILY Qty: 6 0RF
[2022-12-05 18:19] VITALS: BP 130/100; PULSE 104; O2SAT 100
[2022-12-05] MEDS: iohexoL 350 MG/ML 100 ML INFUS..BTL IV (18:31)
[2022-12-05 18:41] VITALS: BP 136/67; PULSE 96; RESP 20; TEMP 36.4; O2SAT 100; BMI 35.7
[2022-12-05 19:06] LABS: Glucose, Whole Blood 135 mg/dL (60-115)
--- NOTE | 2022-12-05 19:17 | PC.NURSE ---
patient awake alert to person/place, while asking pt questions pt slurred words, pt had a nursing swallow eval performed and stated this is gross without any word slurring, pt was asked to smile and lt facial droop was noted- pt was able to stick tongue out and close mouth around straw, pt was able to close eyes equally- pupils PERRLA, pt had left arm drift however had equal grasps, BLE lift/hold and equal strength, pt was asked to roll to both sides to get linens out from under her and was able to do so on her own accord and able to grasp the side rail, poc obtained 135, ekg obtained, iv inserted- ct/cta of head obtained, surveillance monitor applied, tech to draw labs/obtain covid swab, call sandra within reach, will continue to monitor.
[2022-12-05 19:21] VITALS: BP 137/61; PULSE 94; RESP 19; O2SAT 100
[2022-12-05] MEDS: 0.9 % Sodium Chloride 500 ML IV (19:29)
[2022-12-05 19:57] LABS: MANUAL DIFF FLAG NO
[2022-12-05 19:58] LABS: Basophils Percent Auto 0.3 % (0-2); Eosinophils Absolute Auto 0.1 X10*3/uL (0.0-0.4); Eosinophils Percent Auto 0.4 % (0-4); Hematocrit 41.1 % (37.0-47.0); Imm Gran Abs Auto 0.06 X10*3/uL (0.00-0.03); Imm Gran Pct Auto 0.4 % (0.0-0.4); Lymphocytes Absolute Auto 2.2 X10*3/uL (1.2-4.9); Lymphocytes Percent Auto 16.3 % (20-40); Mean Corpuscular HGB Conc 34.1 g/dl (31.0-35.0); Mean Corpuscular Hemoglobin 31.2 pg (27.0-33.0); Mean Corpuscular Volume 91.5 fL (80.0-98.0); Mean Platelet Volume 10.3 fL (9.4-12.3); Monocytes Percent Auto 7.2 % (2-11); Neutrophils Absolute Auto 10.2 x10*3/uL (2.0-8.3); Neutrophils Percent Auto 75.4 % (45-73); Platelet Count 214 X10*3/uL (160-400); Red Blood Count 4.49 X10*6/uL (4.20-5.50); Red Cell Distribution Width 14.1 % (11.0-16.0); White Blood Count 13.5 X10*3/uL (4.8-10.8)
[2022-12-05 20:15] LABS: D Dimer High Sensitivity < 150 NG/ML
[2022-12-05 20:16] LABS: COVID-19 Test Negative (Negative); IDNOW Serial# 08D9AD1C
[2022-12-05 20:24] LABS: Alanine Aminotransferase 20 U/L (0-31); Albumin Level 4.4 g/dL (3.5-5.0); Alkaline Phosphatase 80 U/L (39-117); Anion Gap 16 (12-20); Aspartate Amino Transferase 36 U/L (5-31); Bilirubin Total 1.3 mg/dL (0.0-1.0); Blood Urea Nitrogen 21 mg/dL (9-16); Calcium 9.7 mg/dL (8.4-10.2); Carbon Dioxide 20 mmol/L (22-29); Chloride 107 mmol/L (96-108); Creatinine Clr Calc Pharmacy 74.4; Estimated Glomerular Filt Rate > 60; Glucose Random 130 mg/dL (60-115); Potassium 3.3 mmol/L (3.3-5.1); Sodium 140 mmol/L (135-145); Total Protein 7.2 g/dL (6.5-8.0)
[2022-12-05 20:25] LABS: Ammonia 37 umol/L (13-55); Ethanol < 10 mg/dL
[2022-12-05 20:27] LABS: Troponin-I High Sensitivity 4.3 ng/L (<3.5-17.0)
[2022-12-05 20:41] LABS: TSH reflex Free T4 1.13 uIU/mL (0.32-4.0)
--- NOTE | 2022-12-05 20:54 | PC.NURSE ---
ptAOx3, neuro exam revealed no noted deficits - grasps equal, no drift noted in extremities, full strength noted in extremities.
[2022-12-05 21:01] VITALS: BP 136/64; PULSE 96; RESP 16; TEMP 36.4; O2SAT 96
--- NOTE | 2022-12-05 21:30 | MHC.EDTECH ---
pt is incontinent a purewick was put in , pt was cleaned up and vitals were taken once urine is produced a sample will be obtained
--- NOTE | 2022-12-05 22:11 | PC.NURSE ---
UA obtained and sent. Awaiting results. Pt resting in bed with @ bedside.
[2022-12-05 22:16] LABS: Appearance Urine Clear; Color Urine Yellow; Glucose Urine UA Negative (Negative); Leukocyte Esterase Urine Small (1+) (Negative); Nitrite Urine Negative (Negative); Specific Gravity - Urine >= 1.030 (1.005-1.025); UMIC TRIGGER UACC YES; Urine Blood Trace (Negative); Urine Ketones 15 mg/dL (Negative); Urine Protein Trace mg/dL (Neg-Trace)
[2022-12-05 22:21] LABS: Bacteria Urine None Seen (None Seen); Hyaline Casts Urine 0-2 /LPF (0-2); RBC Urine 0-2 /HPF (0-2); UACC Culture Trigger YES; WBC Urine 21-50 /HPF (0-5)
[2022-12-05 22:38] LABS: Amphetamine Screen Urine Not Detected (Not Detect); Barbiturates, Urine Not Detected (Not Detect); Benzodiazepines Screen Urine Not Detected (Not Detect); Cannabinoid Screen Urine Not Detected (Not Detect); Cocaine Screen Urine Not Detected (Not Detect); Fentanyl, urine Not Detected (Not Detect); Opiate Screen Urine Not Detected (Not Detect); Phencyclidine Screen Urine Not Detected (Not Detect)
[2022-12-05] MEDS: levoFLOXacin 500 MG TABLET PO (22:38)
== END 2022-12-05 22:43 | disposition home or self-care (01) ==
PROVIDERS: Emergency Provider Emergency Medicine
DX: N39.0 Urinary tract infection, site not specified (principal); B96.20 Unspecified Escherichia coli [E. coli] as the cause of diseases classified elsewhere; R41.0 Disorientation, unspecified; Z20.822 Contact with and (suspected) exposure to COVID-19; E11.9 Type 2 diabetes mellitus without complications; I10 Essential (primary) hypertension; E78.5 Hyperlipidemia, unspecified; R06.00 Dyspnea, unspecified; Z79.02 Long term (current) use of antithrombotics/antiplatelets; Z79.4 Long term (current) use of insulin; Z79.82 Long term (current) use of aspirin; Z79.899 Other long term (current) drug therapy
CPT/HCPCS: 36415; 70450; 70496; 70498; 80053; 80307; 81001; 82077; 82140; 82947; 84443; 84484; 85025; 85379; 87086; 87635; 93005; 96360; 99284; 99285; Q9967

== ENCOUNTER 2023-01-12 15:51 | Inpatient (IN) | payer MEDICARE, SELFPAY ==
--- NOTE | ~2023-01-12 | CT_ITS ---
EXAMINATION: CT ANGIOGRAM OF THE HEAD CT ANGIOGRAM OF THE NECK CLINICAL INFORMATION: Confusion. COMPARISON: CT scan of the head 01/12/2023. CTA of the head and neck 12/05/2022. MRI brain 03/30/2021 and MRA of the head 03/29/2021 TECHNIQUE: Test bolus series followed by intravenous administration 70 mL of Omnipaque 350. Helical imaging was performed in the axial plane from the mediastinum to the skull vertex. The degree of stenosis is based off NASCET criteria. The data was processed at the special procedure technologist workstation for generation of MIP images. Three-dimensional volume rendered reformatted images were also generated at an offline 3-D workstation. This CT examination was performed using dose optimization techniques as appropriate, variously including the following: *Automated exposure control *Adjustment of mA and/or kV according to patient size (this includes techniques or standardized protocols for targeted exams where dose is matched to indication/reason for exam; i.e. extremities or head) *Use of iterative reconstruction technique DLP: 2220 mGy-cm. FINDINGS: CT Head: Some images are degraded by patient motion artifact. The study redemonstrates the gliosis and encephalomalacia in the bilateral occipital lobes, more extensive on the left, similar compared to prior imaging. Chronic lacunar infarcts are noted in the bilateral basal ganglia, unchanged compared to prior imaging. There is no evidence of acute intracranial hemorrhage or territorial infarction. No abnormal mass-effect or midline shift is seen. Valverde to white matter differentiation is well preserved. No extra-axial fluid collections are identified. There is no abnormal enhancement. There is mild commensurate prominence of the ventricles and sulci consistent with diffuse volume loss. There is ex-vacuo dilatation of the trigone and occipital horn of the left lateral ventricle. There are no acute osseous or soft tissue abnormalities. There is hyperostosis frontalis interna. The mastoid air cells and visualized portions of the paranasal sinuses are well-aerated. CTA Neck: Images are degraded by patient motion artifact on some images. The aortic arch and great vessels of the neck appear normal. There are atheromatous calcifications without significant stenosis at the origins of the subclavian arteries bilaterally. The common carotid arteries are patent bilaterally. The right common carotid arteries moderately tortuous. There are atheromatous calcifications at the carotid bifurcations bilaterally with less than 50% stenosis at the right carotid bifurcation. There is no significant stenosis at the left carotid bifurcation. Both cervical internal carotid arteries are patent. There are atheromatous calcifications at the origins of the vertebral arteries. Due to motion artifact and beam hardening artifact, the V1 and proximal V2 segments of the vertebral arteries are somewhat obscured. In the mid and upper cervical spine, both vertebral arteries are patent. The right vertebral artery is dominant. Nonvascular: There are emphysematous changes in the lung tavarez bilaterally. There is an azygous fissure the thyroid gland appears normal. There is no cervical lymphadenopathy. The study redemonstrates sequelae of multilevel posterior decompressions and fusions in the thoracic spine. CTA Head: There are moderate atheromatous calcifications of the cavernous internal carotid arteries. There is moderate stenosis of the inferior left cavernous internal carotid artery, and of the left paraclinoid internal carotid artery. There is mild narrowing of the right cavernous and paraclinoid internal carotid arteries. These findings appear similar compared to prior imaging. There is slight irregular caliber of the mid and distal M1 segments of the middle cerebral arteries bilaterally. There is good arborization of the middle cerebral arteries bilaterally. The anterior cerebral arteries bilaterally demonstrate normal caliber with no evidence of focal stenosis, aneurysm or vascular malformation. The anterior communicating artery is normal. There are mild atheromatous calcifications of the intradural vertebral arteries bilaterally, with mild irregular caliber bilaterally. There is absent flow in the distal intradural left vertebral artery, which appears more extensive compared to the prior study. The right vertebral artery is patent. The basilar artery is patent, with slightly irregular caliber with narrowing in the mid and distal portions, slightly worse in the midportion compared to prior imaging. There is irregular caliber of the bilateral P1 and P2 segments of the posterior cerebral arteries. The venous sinuses opacify normally. CT/CT angio head neck stroke IMPRESSION: CT Head and Neck: 1. There are no acute bleeds or territorial infarcts. There are no masses or areas of abnormal enhancement. 2. There is diffuse volume loss and there are sequelae of chronic infarcts in the bilateral occipital lobes and there are bilateral basal ganglia lacunar infarcts. 3. There are emphysematous changes in the lung tavarez. CTA Head and Neck: 1. There are atheromatous calcifications at the carotid bifurcations bilaterally, without significant stenosis. 2. There is irregular caliber of the bilateral cavernous and paraclinoid internal carotid arteries, similar compared to prior imaging. 3. There is irregular caliber of the mid and distal basilar artery, worse compared to prior imaging. 4. There is irregular caliber of the mid and distal M1 segments of the middle cerebral arteries bilaterally and the P1 and P2 segments of the posterior cerebral arteries bilaterally. 5. There is a longer segment of absent flow in the distal intradural left vertebral artery when compared to prior imaging. This critical result was discussed with Jacque VELAZQUEZ by telephone on 01/13/2023 at 1:00 PM and it was ascertained that the content and urgency of the report was understood at the time of direct communication.
--- NOTE | ~2023-01-12 | CT_ITS ---
EXAMINATION: CT HEAD WITHOUT CONTRAST CLINICAL INFORMATION: Acute altered mental status COMPARISON: CT head 12/05/2022 TECHNIQUE: Contiguous axial imaging was performed from the skull base to vertex without intravenous administration of contrast. This CT examination was performed using dose optimization techniques as appropriate, variously including the following: *Automated exposure control *Adjustment of mA and/or kV according to patient size (this includes techniques or standardized protocols for targeted exams where dose is matched to indication/reason for exam; i.e. extremities or head) *Use of iterative reconstruction technique DLP: 744 mGy-cm FINDINGS: There is a motion artifact degrading images, limiting evaluation. Motion artifact markedly limits evaluation of the posterior fossa. Subcortical areas of increased density including in the supratentorial region, suspected to be related to artifact, limiting evaluation.. Hemorrhage in this region cannot be excluded. Repeat CT scan as clinically warranted. In the remainder portion of the nonobscured brain, no definite intracranial hemorrhage is seen. No extra-axial fluid collections identified. Redemonstrated is focal encephalomalacia from old infarction in the right and left occipital lobes, unchanged from the study of 12/06/2027. No evidence of acute edematous large vessel territorial infarction. Valverde-white matter differentiation is grossly preserved. No abnormal mass effect or midline shift is seen. No evidence of acute calvarial fracture. Paranasal sinuses and mastoid air cells evaluated. CT/CT head/brain wo IV con IMPRESSION: Significant motion artifact degrading images, limiting evaluation. Consider repeat CT for evaluation. In the nonobscured portion of the brain, there is no CT evidence of acute edematous large vessel territorial infarction. Limited evaluation for intracranial hemorrhage, as detailed above.
--- NOTE | ~2023-01-12 | XR_ITS ---
EXAMINATION: XR CHEST CLINICAL INFORMATION: Altered mentation COMPARISON: 11/15/2021 TECHNIQUE: Frontal view of the chest was obtained. FINDINGS: Hardware in the spine is once again present. No convincing evidence for an acute process in the chest. No obvious failure or infiltrate. No effusion. The cardiac silhouette is comparable. XR/XR chest 1V IMPRESSION: No acute finding.
[2023-01-12 15:58] VITALS: BMI 32.6
[2023-01-12 16:14] VITALS: BP 117/57; PULSE 73; RESP 16; TEMP 36.9; O2SAT 95
--- NOTE | 2023-01-12 16:15 | ECG_ITS ---
Test Reason : AMS Blood Pressure : / mmHG Vent. Rate : 073 BPM Atrial Rate : 073 BPM P-R Int : 126 ms QRS Dur : 100 ms QT Int : 398 ms P-R-T Axes : 018 042 028 degrees QTc Int : 438 ms Normal sinus rhythm Nonspecific T wave abnormality Abnormal ECG When compared with ECG of 05-DEC-2022 18:43, Non-specific change in ST segment in Anterolateral leads T wave inversion no longer evident in Inferior leads T wave inversion no longer evident in Lateral leads Referred By: Generic ED Physician Electronically Signed By:BAIRON IVY
[2023-01-12 16:21] LABS: MANUAL DIFF FLAG NO
[2023-01-12 16:23] LABS: Basophils Absolute Auto 0.1 X10*3/uL (0.0-0.2); Basophils Percent Auto 0.5 % (0-2); Eosinophils Absolute Auto 0.1 X10*3/uL (0.0-0.4); Eosinophils Percent Auto 0.9 % (0-4); Hematocrit 38.8 % (37.0-47.0); Hemoglobin 13.4 g/dl (12.0-16.0); Imm Gran Abs Auto 0.09 X10*3/uL (0.00-0.03); Imm Gran Pct Auto 0.6 % (0.0-0.4); Lymphocytes Absolute Auto 3.1 X10*3/uL (1.2-4.9); Lymphocytes Percent Auto 21.3 % (20-40); Mean Corpuscular HGB Conc 34.5 g/dl (31.0-35.0); Mean Corpuscular Hemoglobin 31.6 pg (27.0-33.0); Mean Corpuscular Volume 91.5 fL (80.0-98.0); Mean Platelet Volume 9.6 fL (9.4-12.3); Monocytes Absolute Auto 0.9 X10*3/uL (0.1-1.2); Monocytes Percent Auto 6.5 % (2-11); Neutrophils Absolute Auto 10.1 x10*3/uL (2.0-8.3); Neutrophils Percent Auto 70.2 % (45-73); Platelet Count 262 X10*3/uL (160-400); Red Blood Count 4.24 X10*6/uL (4.20-5.50); Red Cell Distribution Width 13.4 % (11.0-16.0); White Blood Count 14.3 X10*3/uL (4.8-10.8)
[2023-01-12 16:37] LABS: Alanine Aminotransferase 13 U/L (0-31); Albumin Level 3.8 g/dL (3.5-5.0); Alkaline Phosphatase 82 U/L (39-117); Anion Gap 12 (12-20); Aspartate Amino Transferase 11 U/L (5-31); Bilirubin Total 0.4 mg/dL (0.0-1.0); Blood Urea Nitrogen 21 mg/dL (9-16); Calcium 9.2 mg/dL (8.4-10.2); Carbon Dioxide 25 mmol/L (22-29); Chloride 109 mmol/L (96-108); Creatinine Clr Calc Pharmacy 74.5; Estimated Glomerular Filt Rate > 60; Glucose Random 119 mg/dL (60-115); Potassium 3.6 mmol/L (3.3-5.1); Sodium 142 mmol/L (135-145); Total Protein 6.4 g/dL (6.5-8.0)
--- NOTE | 2023-01-12 16:37 | ED.AMS ---
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 with occipital infarcts in 03/23 resulting in change in mental status with visual deficit brought by EMS today as patient's noticed patient is acting strange since 07:00 not at his baseline sleepy and lethargic known vomiting no fever no shortness of chest pain on arrival patient was confused alert oriented x2 denies any significant complaint Related Data Home Medications Medication Instructions Recorded Confirmed aspirin 81 mg tablet,delayed 1 tab PO QAM 08/06/21 11/15/21 release atorvastatin 80 mg tablet 1 tab PO DAILY 08/06/21 11/15/21 hydrochlorothiazide 12.5 mg capsule 1 cap PO DAILY 08/06/21 11/15/21 mirabegron 25 mg tablet,extended 1 tab PO DAILY 08/06/21 11/15/21 release 24 hr (Myrbetriq) pantoprazole 40 mg tablet,delayed 1 tab PO BEDTIME 08/06/21 11/15/21 release valsartan 80 mg tablet 1 tab PO DAILY 08/06/21 11/15/21 multivitamin 1 tab PO QAM 09/19/21 11/15/21 mirabegron 25 mg tablet,extended 25 mg PO DAILY 01/12/23 01/12/23 release 24 hr (Myrbetriq) Previous Rx's Medication Instructions Recorded metoprolol succinate 25 mg 25 mg PO QAM #90 tabs 12/26/22 tablet,extended release 24 hr Allergies Allergy/AdvReac Type Severity Reaction Status Date / Time Sulfa (Sulfonamide Allergy Severe DIFFICULTY Verified 12/05/22 18:20 Antibiotics) BREATHING [SULFA (SULFONAMIDE ANTIBIOTICS)] cephalexin [From KEFLEX] Allergy Intermediate RASH,HIVES Verified 12/05/22 18:20 amoxicillin [AMOXICILLIN] Allergy Unknown DENIES Verified 12/05/22 18:20 THIS ALLERGY 03/28/2018 penicillin V Allergy Unknown Unknown Verified 12/05/22 18:20 sumatriptan [From IMITREX] AdvReac Severe HEART Verified 12/05/22 18:20 PALPITATIONS topiramate [From TOPAMAX] AdvReac Severe AGITATION Verified 12/05/22 18:20 Review of Systems Review of Systems: Yes Unobtainable due to mental status PMFSH Past Medical History Medical History Acute hypotension Anxiety Asthma Bradycardia CHF (congestive heart failure) Cortical blindness Dementia, Lewy body with behavior disturbance Diabetes Diabetic acetonemia Dyspnea on exertion Encephalopathy Essential hypertension HTN (hypertension) Hypernatremia Myalgia and myositis Neuropathy Nocturnal hypoxemia Obesity (BMI 30-39.9) Orthopnea Restrictive lung disease Shock 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 Mother Angina at rest Sister Lung cancer Colon cancer COPD (chronic obstructive pulmonary disease) Social History Social History Household Members: Spouse Housing: House Unable to assess alcohol history related to: Unknown Alcohol intake: never Patient Tobacco Use Status: Never used Tobacco e-Cigarette/Vaping Use: Never Used Second Hand Smoke Exposure: No Use of substances other than those prescribed or required for medical reasons: No Advance Directives: Yes Advance Directives on File: Yes Advance Directives Date on File: 07/27/20 Do you have thoughts of harming others: None Do you have a plan to hurt others: No Plan Recently lost weight without trying: Unsure Patient : No service: No Current occupational status: disabled Current occupation: right handed Sexual orientation: Straight/Heterosexual Physical Exam ED Vital Signs: Vital Signs - 24 hr 01/12/23 16:14 01/12/23 18:38 01/12/23 20:47 Temperature 98.5 F 98.6 F Pulse Rate 73 83 79 Respiratory Rate 16 16 18 Blood Pressure 117/57 L 104/83 117/68 Pulse Oximetry 95 96 95 Oxygen Delivery Method Room Air Room Air Room Air 01/12/23 23:02 Temperature 98.3 F Pulse Rate 76 Respiratory Rate 14 Blood Pressure 110/57 L Pulse Oximetry 98 Oxygen Delivery Method Room Air BMI result Body Mass Index 32.6 Appearance: Alert. Oriented X1-2. No acute distress.pt confused Eyes: PERRL ENT: Pharynx normal. Oral Mucosa moist Neck: Normal inspection. Neck supple. CVS: Normal heart rate and rhythm. Pulses normal. Respiratory: No respiratory distress. Equal air entry bilateral, no wheezing/rales/rhonchi Abdomen: Soft and nontender. Bowel sounds are present, no mass palpable, no CVA tenderness Skin: Skin warm and dry. Normal skin color. Normal skin turgor. Extremities: No lower extremity edema. No calf tenderness Neuro: Oriented X 1-2. No motor deficit. No sensory deficit.No cerebellar signs , cranial nerves II-XII intact Medications Administered Generic Name Dose Route Start Last Admin Trade Name Freq PRN Reason Stop Dose Admin Enoxaparin Sodium 40 mg 01/12/23 23:45 01/13/23 00:09 Enoxaparin Sodium 40 Mg/0.4 Ml Syringe SUBCUT 40 mg Q24H FRANCHESKA Administration Insulin Human Lispro 0 unit 01/13/23 00:15 01/13/23 01:30 Insulin Lispro 100 Unit/Ml 3 Ml Vial SUBCUT Not Given Q6H FRANCHESKA Protocol Sodium Chloride 3 ml 01/13/23 00:00 01/13/23 00:09 0.9 % Sodium Chloride Flush 3 Ml Syringe IVFLUSH 3 ml QSHIFT FRANCHESKA Administration Discontinued Medications Generic Name Dose Route Start Last Admin Trade Name Freq PRN Reason Stop Dose Admin Sodium Chloride 1,000 mls @ 999 mls/hr 01/12/23 16:53 01/12/23 19:06 Ns IV 01/12/23 17:53 Infused .Q1H1M ONE Infusion Medical Decision Making Medical Decision Making [facility] Narrative: Patient with increased confusion likely TIAs patient had CT negative for acute with history of same? Metabolic, will admit patient for further evaluation Differential Diagnosis TIAs/CVA/UTI/metabolic encephalopathy Consult Healthcare Provider Management of the patient was discussed with: Hospitalist Lab Data MDM Lab Attestation statement: I reviewed the patient's lab results. 01/12/23 16:13 01/12/23 16:13 Labs: Lab Results 01/12/23 01/12/23 01/12/23 Range/Units 16:13 16:13 16:56 WBC 14.3 H (4.8-10.8) X10*3/uL RBC 4.24 (4.20-5.50) X10*6/uL Hgb 13.4 (12.0-16.0) g/dl Hct 38.8 (37.0-47.0) % MCV 91.5 (80.0-98.0) fL MCH 31.6 (27.0-33.0) pg MCHC 34.5 (31.0-35.0) g/dl RDW 13.4 (11.0-16.0) % Plt Count 262 (160-400) X10*3/uL MPV 9.6 (9.4-12.3) fL Immature Gran % (Auto) 0.6 H (0.0-0.4) % Neut % (Auto) 70.2 (45-73) % Lymph % (Auto) 21.3 (20-40) % [place] % (Auto) 6.5 (2-11) % Eos % (Auto) 0.9 (0-4) % Baso % (Auto) 0.5 (0-2) % Lymph # (Auto) 3.1 (1.2-4.9) X10*3/uL [place] # (Auto) 0.9 (0.1-1.2) X10*3/uL Eos # (Auto) 0.1 (0.0-0.4) X10*3/uL Baso # (Auto) 0.1 (0.0-0.2) X10*3/uL Abs Immat Gran (auto) 0.09 H (0.00-0.03) X10*3/uL Absolute Neuts (auto) 10.1 H (2.0-8.3) x10*3/uL Absolute Nucleated RBC 0.000 (0.0-0.012) X10*3/uL Nucleated RBC % (auto) 0.0 (0.0-0.2) /100WBC VBG pH (7.32-7.43) VBG pCO2 mmHg VBG pO2 mmHg VBG HCO3 (22-26) mmol/L VBG O2 Saturation % VBG Base Excess mmol/L Sodium 142 (135-145) mmol/L Potassium 3.6 (3.3-5.1) mmol/L Chloride 109 H (96-108) mmol/L Carbon Dioxide 25 (22-29) mmol/L Anion Gap 12 (12-20) BUN 21 H (9-16) mg/dL Creatinine 0.80 (0.5-1.4) mg/dL Estim Creat Clear Calc 74.5 Estimated GFR > 60 POC Glucose (60-115) mg/dL Random Glucose 119 H (60-115) mg/dL Lactic Acid (0.5-2.0) mmol/L Calcium 9.2 (8.4-10.2) mg/dL Total Bilirubin 0.4 (0.0-1.0) mg/dL AST 11 (5-31) U/L ALT 13 (0-31) U/L Alkaline Phosphatase 82 (39-117) U/L Ammonia (13-55) umol/L Total Protein 6.4 L (6.5-8.0) g/dL Albumin 3.8 (3.5-5.0) g/dL TSH 1.20 (0.32-4.0) uIU/mL Urine Color Yellow Urine Appearance Clear Urine pH 5.5 (5.0-9.0) Ur Specific [place] >= 1.030 H (1.005-1.025) Urine Protein Trace (Neg-Trace) mg/dL Urine Glucose (UA) >=1000 H (Negative) mg/dL Urine Ketones Negative (Negative) mg/dL Urine Blood Negative (Negative) Urine Nitrite Negative (Negative) Ur Leukocyte Esterase Negative (Negative) Urine RBC 0-2 (0-2) /HPF Urine WBC 0-5 (0-5) /HPF Ur Squamous Epith Cells 0-2 (0-2) /HPF Urine Bacteria None Seen (None Seen) Hyaline Casts 0-2 (0-2) /LPF Urine Yeast Present Acetaminophen < 17 (<30) mcg/mL 01/12/23 01/12/23 01/12/23 Range/Units 20:50 21:14 21:19 WBC (4.8-10.8) X10*3/uL RBC (4.20-5.50) X10*6/uL Hgb (12.0-16.0) g/dl Hct (37.0-47.0) % MCV (80.0-98.0) fL MCH (27.0-33.0) pg MCHC (31.0-35.0) g/dl RDW (11.0-16.0) % Plt Count (160-400) X10*3/uL MPV (9.4-12.3) fL Immature Gran % (Auto) (0.0-0.4) % Neut % (Auto) (45-73) % Lymph % (Auto) (20-40) % [place] % (Auto) (2-11) % Eos % (Auto) (0-4) % Baso % (Auto) (0-2) % Lymph # (Auto) (1.2-4.9) X10*3/uL [place] # (Auto) (0.1-1.2) X10*3/uL Eos # (Auto) (0.0-0.4) X10*3/uL Baso # (Auto) (0.0-0.2) X10*3/uL Abs Immat Gran (auto) (0.00-0.03) X10*3/uL Absolute Neuts (auto) (2.0-8.3) x10*3/uL Absolute Nucleated RBC (0.0-0.012) X10*3/uL Nucleated RBC % (auto) (0.0-0.2) /100WBC VBG pH 7.40 (7.32-7.43) VBG pCO2 36 mmHg VBG pO2 56 mmHg VBG HCO3 22 (22-26) mmol/L VBG O2 Saturation 87.0 % VBG Base Excess -1.3 mmol/L Sodium (135-145) mmol/L Potassium (3.3-5.1) mmol/L Chloride (96-108) mmol/L Carbon Dioxide (22-29) mmol/L Anion Gap (12-20) BUN (9-16) mg/dL Creatinine (0.5-1.4) mg/dL Estim Creat Clear Calc Estimated GFR POC Glucose 158 H (60-115) mg/dL Random Glucose (60-115) mg/dL Lactic Acid 1.4 (0.5-2.0) mmol/L Calcium (8.4-10.2) mg/dL Total Bilirubin (0.0-1.0) mg/dL AST (5-31) U/L ALT (0-31) U/L Alkaline Phosphatase (39-117) U/L Ammonia (13-55) umol/L Total Protein (6.5-8.0) g/dL Albumin (3.5-5.0) g/dL TSH (0.32-4.0) uIU/mL Urine Color Urine Appearance Urine pH (5.0-9.0) Ur Specific [place] (1.005-1.025) Urine Protein (Neg-Trace) mg/dL Urine Glucose (UA) (Negative) mg/dL Urine Ketones (Negative) mg/dL Urine Blood (Negative) Urine Nitrite (Negative) Ur Leukocyte Esterase (Negative) Urine RBC (0-2) /HPF Urine WBC (0-5) /HPF Ur Squamous Epith Cells (0-2) /HPF Urine Bacteria (None Seen) Hyaline Casts (0-2) /LPF Urine Yeast Acetaminophen (<30) mcg/mL 01/12/23 Range/Units 22:01 WBC (4.8-10.8) X10*3/uL RBC (4.20-5.50) X10*6/uL Hgb (12.0-16.0) g/dl Hct (37.0-47.0) % MCV (80.0-98.0) fL MCH (27.0-33.0) pg MCHC (31.0-35.0) g/dl RDW (11.0-16.0) % Plt Count (160-400) X10*3/uL MPV (9.4-12.3) fL Immature Gran % (Auto) (0.0-0.4) % Neut % (Auto) (45-73) % Lymph % (Auto) (20-40) % [place] % (Auto) (2-11) % Eos % (Auto) (0-4) % Baso % (Auto) (0-2) % Lymph # (Auto) (1.2-4.9) X10*3/uL [place] # (Auto) (0.1-1.2) X10*3/uL Eos # (Auto) (0.0-0.4) X10*3/uL Baso # (Auto) (0.0-0.2) X10*3/uL Abs Immat Gran (auto) (0.00-0.03) X10*3/uL Absolute Neuts (auto) (2.0-8.3) x10*3/uL Absolute Nucleated RBC (0.0-0.012) X10*3/uL Nucleated RBC % (auto) (0.0-0.2) /100WBC VBG pH (7.32-7.43) VBG pCO2 mmHg VBG pO2 mmHg VBG HCO3 (22-26) mmol/L VBG O2 Saturation % VBG Base Excess mmol/L Sodium (135-145) mmol/L Potassium (3.3-5.1) mmol/L Chloride (96-108) mmol/L Carbon Dioxide (22-29) mmol/L Anion Gap (12-20) BUN (9-16) mg/dL Creatinine (0.5-1.4) mg/dL Estim Creat Clear Calc Estimated GFR POC Glucose (60-115) mg/dL Random Glucose (60-115) mg/dL Lactic Acid (0.5-2.0) mmol/L Calcium (8.4-10.2) mg/dL Total Bilirubin (0.0-1.0) mg/dL AST (5-31) U/L ALT (0-31) U/L Alkaline Phosphatase (39-117) U/L Ammonia 26 (13-55) umol/L Total Protein (6.5-8.0) g/dL Albumin (3.5-5.0) g/dL TSH (0.32-4.0) uIU/mL Urine Color Urine Appearance Urine pH (5.0-9.0) Ur Specific [place] (1.005-1.025) Urine Protein (Neg-Trace) mg/dL Urine Glucose (UA) (Negative) mg/dL Urine Ketones (Negative) mg/dL Urine Blood (Negative) Urine Nitrite (Negative) Ur Leukocyte Esterase (Negative) Urine RBC (0-2) /HPF Urine WBC (0-5) /HPF Ur Squamous Epith Cells (0-2) /HPF Urine Bacteria (None Seen) Hyaline Casts (0-2) /LPF Urine Yeast Acetaminophen (<30) mcg/mL Independent Interpretation I performed an independent interpretation of an: EKG Interpretation: Normal sinus rhythm heart rate 73 beats per minute no acute ST wave changes no acute ischemic Discharge Plan Discharge Clinical Impression: Altered mental status Patient Disposition: Admitted As Inpatient Interventions: Admission Worksheet (ED) Last Done: 01/13/23 00:30 Discharge Date/Time: 01/13/23 00:44
[2023-01-12 17:03] LABS: Appearance Urine Clear; Color Urine Yellow; Glucose Urine UA >=1000 mg/dL (Negative); Leukocyte Esterase Urine Negative (Negative); Nitrite Urine Negative (Negative); PH 5.5 (5.0-9.0); Specific Gravity - Urine >= 1.030 (1.005-1.025); UMIC TRIGGER UACC YES; Urine Blood Negative (Negative); Urine Ketones Negative (Negative); Urine Protein Trace mg/dL (Neg-Trace)
[2023-01-12 17:22] LABS: Bacteria Urine None Seen (None Seen); Hyaline Casts Urine 0-2 /LPF (0-2); RBC Urine 0-2 /HPF (0-2); Squamous Epithelial Cell Urine 0-2 /HPF (0-2); WBC Urine 0-5 /HPF (0-5)
[2023-01-12] MEDS: 0.9 % Sodium Chloride 1,000 ML 999 ML IV (17:48)
[2023-01-12 18:38] VITALS: BP 104/83; PULSE 83; RESP 16; O2SAT 96
[2023-01-12 20:47] VITALS: BP 117/68; PULSE 79; RESP 18; TEMP 37; O2SAT 95
[2023-01-12 20:55] LABS: Glucose, Whole Blood 158 mg/dL (60-115)
[2023-01-12 21:27] LABS: VBG Base Excess -1.3 mmol/L; VBG HCO3 22 mmol/L (22-26); VBG pCO2 36 mmHg; VBG pO2 56 mmHg
[2023-01-12 21:27] LABS: Venous Blood Gas Refer to POC result
[2023-01-12 21:42] LABS: Lactic Acid 1.4 mmol/L (0.5-2.0)
[2023-01-12 22:30] LABS: Ammonia 26 umol/L (13-55)
[2023-01-12 23:02] VITALS: BP 110/57; PULSE 76; RESP 14; TEMP 36.8; O2SAT 98
--- NOTE | 2023-01-12 23:33 | PC.NURSE ---
Med rec completed for admission at this time
--- NOTE | 2023-01-12 23:57 | P.HPHOSP_ITS ---
History of Present Illness Date of Service: 01/12/23 Chief Complaint: Altered mentation This is a 67-year-old female with pertinent history of Lewy body dementia, essential hypertension, [id number] diabetes mellitus who was brought to the emergency department for evaluation of altered mentation. Patient is awake and alert but disoriented to time, place and person. Unable to obtain any history from the patient. History obtained from ER provider and chart review. Patient was brought in as the noticed that the patient is acting strange since 07:00. He noticed that the patient was not acting herself and was sleepy and lethargic. No fever, chills, vomiting, chest discomfort, shortness of breath as per the . Unable to obtain review of systems. 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 Mother Angina at rest Sister Lung cancer Colon cancer COPD (chronic obstructive pulmonary disease) Surgical History History of appendectomy History of arthroscopy of both knees History of hysterectomy History of pancreatic surgery Social History Household Members: Spouse Housing: House Unable to assess alcohol history related to: Unknown Alcohol intake: never Patient Tobacco Use Status: Never used Tobacco e-Cigarette/Vaping Use: Never Used Second Hand Smoke Exposure: No Advance Directives: Yes Advance Directives on File: Yes Advance Directives Date on File: 07/27/20 service: No Current occupational status: disabled Current occupation: right handed Sexual orientation: Straight/Heterosexual Meds Allergies Allergy/AdvReac Type Severity Reaction Status Date / Time Sulfa (Sulfonamide Allergy Severe DIFFICULTY Verified 12/05/22 18:20 Antibiotics) BREATHING [SULFA (SULFONAMIDE ANTIBIOTICS)] cephalexin [From KEFLEX] Allergy Intermediate RASH,HIVES Verified 12/05/22 18:20 amoxicillin [AMOXICILLIN] Allergy Unknown DENIES Verified 12/05/22 18:20 THIS ALLERGY 03/28/2018 penicillin V Allergy Unknown Unknown Verified 12/05/22 18:20 sumatriptan [From IMITREX] AdvReac Severe HEART Verified 12/05/22 18:20 PALPITATIONS topiramate [From TOPAMAX] AdvReac Severe AGITATION Verified 12/05/22 18:20 Active Medications: Current Medications Pharmacy Consult (Consult Rx Perform Med Rec) 1 each MISCELLANE ONCE PRN PRN Reason: Consult order Home Medications Medication Instructions Recorded Confirmed Last Taken Type aspirin 81 mg tablet,delayed 1 tab PO QAM 08/06/21 11/15/21 Unknown History release atorvastatin 80 mg tablet 1 tab PO DAILY 08/06/21 11/15/21 Unknown History hydrochlorothiazide 12.5 mg capsule 1 cap PO DAILY 08/06/21 11/15/21 Unknown History mirabegron 25 mg tablet,extended 1 tab PO DAILY 08/06/21 11/15/21 Unknown History release 24 hr (Myrbetriq) pantoprazole 40 mg tablet,delayed 1 tab PO BEDTIME 08/06/21 11/15/21 Unknown History release valsartan 80 mg tablet 1 tab PO DAILY 08/06/21 11/15/21 Unknown History multivitamin 1 tab PO QAM 09/19/21 11/15/21 Unknown History mirabegron 25 mg tablet,extended 25 mg PO DAILY 01/12/23 01/12/23 Unknown History release 24 hr (Myrbetriq) Physical Exam Vital Signs and Narrative: Vital Signs: Last Vital Signs Temp 98.3 F 01/12/23 23:02 Pulse 76 01/12/23 23:02 Resp 14 01/12/23 23:02 BP 110/57 L 01/12/23 23:02 Pulse Ox 98 01/12/23 23:02 O2 Del Method Room Air 01/12/23 23:02 BMI result Body Mass Index 32.6 Middle-aged female lying in bed in no distress Neck supple, no JVD Regular rate and rhythm, S1-S2 heard Regular breath sounds bilaterally, no wheezing or crackles appreciated Abdomen soft nontender, no guarding, no rigidity Patient is awake, alert and disoriented oriented to self, place, time and person No pedal edema Results Labs 01/12/23 16:13 01/12/23 16:13 Labs: Laboratory Results - last 24 hr 01/12/23 01/12/23 01/12/23 16:13 16:13 16:56 MCV 91.5 MCH 31.6 MCHC 34.5 RDW 13.4 Plt Count 262 MPV 9.6 Immature Gran % (Auto) 0.6 H Neut % (Auto) 70.2 Lymph % (Auto) 21.3 [place] % (Auto) 6.5 Eos % (Auto) 0.9 Baso % (Auto) 0.5 Lymph # (Auto) 3.1 [place] # (Auto) 0.9 Eos # (Auto) 0.1 Baso # (Auto) 0.1 Abs Immat Gran (auto) 0.09 H Absolute Neuts (auto) 10.1 H Absolute Nucleated RBC 0.000 Nucleated RBC % (auto) 0.0 VBG pH VBG pCO2 VBG pO2 VBG HCO3 VBG O2 Saturation VBG Base Excess Anion Gap 12 Estim Creat Clear Calc 74.5 Estimated GFR > 60 POC Glucose Random Glucose 119 H Lactic Acid Calcium 9.2 Total Bilirubin 0.4 AST 11 ALT 13 Alkaline Phosphatase 82 Ammonia Total Protein 6.4 L Albumin 3.8 Urine Color Yellow Urine Appearance Clear Urine pH 5.5 Ur Specific [place] >= 1.030 H Urine Protein Trace Urine Glucose (UA) >=1000 H Urine Ketones Negative Urine Blood Negative Urine Nitrite Negative Ur Leukocyte Esterase Negative Urine RBC 0-2 Urine WBC 0-5 Ur Squamous Epith Cells 0-2 Urine Bacteria None Seen Hyaline Casts 0-2 Urine Yeast Present 01/12/23 01/12/23 01/12/23 20:50 21:14 21:19 MCV MCH MCHC RDW Plt Count MPV Immature Gran % (Auto) Neut % (Auto) Lymph % (Auto) [place] % (Auto) Eos % (Auto) Baso % (Auto) Lymph # (Auto) [place] # (Auto) Eos # (Auto) Baso # (Auto) Abs Immat Gran (auto) Absolute Neuts (auto) Absolute Nucleated RBC Nucleated RBC % (auto) VBG pH 7.40 VBG pCO2 36 VBG pO2 56 VBG HCO3 22 VBG O2 Saturation 87.0 VBG Base Excess -1.3 Anion Gap Estim Creat Clear Calc Estimated GFR POC Glucose 158 H Random Glucose Lactic Acid 1.4 Calcium Total Bilirubin AST ALT Alkaline Phosphatase Ammonia Total Protein Albumin Urine Color Urine Appearance Urine pH Ur Specific [place] Urine Protein Urine Glucose (UA) Urine Ketones Urine Blood Urine Nitrite Ur Leukocyte Esterase Urine RBC Urine WBC Ur Squamous Epith Cells Urine Bacteria Hyaline Casts Urine Yeast 01/12/23 22:01 MCV MCH MCHC RDW Plt Count MPV Immature Gran % (Auto) Neut % (Auto) Lymph % (Auto) [place] % (Auto) Eos % (Auto) Baso % (Auto) Lymph # (Auto) [place] # (Auto) Eos # (Auto) Baso # (Auto) Abs Immat Gran (auto) Absolute Neuts (auto) Absolute Nucleated RBC Nucleated RBC % (auto) VBG pH VBG pCO2 VBG pO2 VBG HCO3 VBG O2 Saturation VBG Base Excess Anion Gap Estim Creat Clear Calc Estimated GFR POC Glucose Random Glucose Lactic Acid Calcium Total Bilirubin AST ALT Alkaline Phosphatase Ammonia 26 Total Protein Albumin Urine Color Urine Appearance Urine pH Ur Specific [place] Urine Protein Urine Glucose (UA) Urine Ketones Urine Blood Urine Nitrite Ur Leukocyte Esterase Urine RBC Urine WBC Ur Squamous Epith Cells Urine Bacteria Hyaline Casts Urine Yeast Imaging Radiologist's Impressions: Impressions Head CT 01/12/23 17:23 IMPRESSION: Significant motion artifact degrading images, limiting evaluation. Consider repeat CT for evaluation. In the nonobscured portion of the brain, there is no CT evidence of acute edematous large vessel territorial infarction. Limited evaluation for intracranial hemorrhage, as detailed above. Chest X-Ray 01/12/23 22:15 IMPRESSION: No acute finding. Assessment and Plan (1) Altered mental status: Qualifiers: Altered mental status type: unspecified Qualified Code(s): R41.82 - Altered mental status, unspecified Status: Acute Plan This is a 67-year-old female with pertinent history of Lewy body dementia, essential hypertension, elk-[id number]-migvbowof diabetes mellitus who was brought to the emergency department for evaluation of altered mentation. #. Acute encephalopathy, unclear etiology: Does have a history of Lewy body dementia. Obtaining MRI of the brain. ?history of previous infarct. Consider EEG/Spinal tap if mentation does not improve. Consulting Neurology, appreciate assistance. Drug screen and Tylenol level pending. Ammonia normal. Obtaining TSH #. Ztg-[id number] diabetes mellitus: Initiating Accu-Cheks with sliding scale insulin every 6 hours #. Essential hypertension: Continue home antihypertensives once patient no longer NPO #. Leukocytosis: UA and chest x-ray within normal limits. Repeat in a.m. Med rec pending DVT prophylaxis: Lovenox NPO until mentation improves Full code. Discuss with in a.m. Admit as inpatient and will require two night minimum hospital stay for close monitoring of mentation. Specialist consult pending Time Spent With Patient Time: Total time managing care of this patient today ____ minutes. Quality Stroke Does the patient have a stroke diagnosis?: No VTE Prior VTE?: No VTE Risk Level:: Medical - moderate - high VTE Device Contraindication: Treatment Not Indicated VTE Drug Contraindication: N/A - Med Ordered
[2023-01-13] MEDS: 0.9 % Sodium Chloride Flush 3 ML SYRINGE IVFLUSH ×4 (00:09→19:51)
[2023-01-13] MEDS: Enoxaparin Sodium 40 MG/0.4 ML SYRINGE SUBCUT (00:09)
[2023-01-13 00:26] LABS: Acetaminophen LAB < 17 mcg/mL (<30)
--- NOTE | 2023-01-13 00:37 | PC.NURSE ---
Attempted to contact [facility] via telephone x2 with no answer at this time
[2023-01-13 01:14] VITALS: BMI 31.8
[2023-01-13 01:33] LABS: Glucose, Whole Blood 158 mg/dL (60-115)
[2023-01-13 01:34] VITALS: BP 166/72; PULSE 92; RESP 20; TEMP 36.3; O2SAT 96
[2023-01-13 06:19] LABS: Glucose, Whole Blood 165 mg/dL (60-115)
[2023-01-13 06:57] LABS: MANUAL DIFF FLAG NO
[2023-01-13 07:04] LABS: Basophils Absolute Auto 0.1 X10*3/uL (0.0-0.2); Basophils Percent Auto 0.5 % (0-2); Eosinophils Absolute Auto 0.2 X10*3/uL (0.0-0.4); Eosinophils Percent Auto 1.3 % (0-4); Hematocrit 42.8 % (37.0-47.0); Hemoglobin 14.8 g/dl (12.0-16.0); Imm Gran Abs Auto 0.07 X10*3/uL (0.00-0.03); Imm Gran Pct Auto 0.5 % (0.0-0.4); Lymphocytes Absolute Auto 3.6 X10*3/uL (1.2-4.9); Lymphocytes Percent Auto 27.6 % (20-40); Mean Corpuscular HGB Conc 34.6 g/dl (31.0-35.0); Mean Corpuscular Hemoglobin 31.4 pg (27.0-33.0); Mean Corpuscular Volume 90.7 fL (80.0-98.0); Mean Platelet Volume 9.5 fL (9.4-12.3); Monocytes Percent Auto 7.5 % (2-11); Neutrophils Absolute Auto 8.1 x10*3/uL (2.0-8.3); Neutrophils Percent Auto 62.6 % (45-73); Platelet Count 260 X10*3/uL (160-400); Red Blood Count 4.72 X10*6/uL (4.20-5.50); Red Cell Distribution Width 13.5 % (11.0-16.0); White Blood Count 12.9 X10*3/uL (4.8-10.8)
[2023-01-13 07:16] LABS: Anion Gap 17 (12-20); Blood Urea Nitrogen 12 mg/dL (9-16); Calcium 9.4 mg/dL (8.4-10.2); Carbon Dioxide 21 mmol/L (22-29); Chloride 110 mmol/L (96-108); Creatinine Clr Calc Pharmacy 79.4; Estimated Glomerular Filt Rate > 60; Glucose Random 157 mg/dL (60-115); Potassium 3.6 mmol/L (3.3-5.1); Sodium 144 mmol/L (135-145)
[2023-01-13 07:25] VITALS: BP 132/62; PULSE 74; RESP 20; TEMP 36.6; O2SAT 96
[2023-01-13 08:18] LABS: Glucose, Whole Blood 189 mg/dL (60-115)
--- NOTE | 2023-01-13 09:59 | P.PNIM_ITS ---
Subjective Subjective Date of Service: 01/14/23 Review of Systems Follow up encephalopathy still with confusion says ok to most answers Physical Exam Vital Signs: Vital Signs: Last Vital Signs Temp 97.9 F 01/13/23 07:25 Pulse 74 01/13/23 07:25 Resp 20 01/13/23 07:25 BP 132/62 01/13/23 07:25 Pulse Ox 96 01/13/23 07:25 O2 Del Method Room Air 01/13/23 07:25 BMI result Body Mass Index 31.8 Appearing in no acute distress lung sounds are clear to auscultation heart regular rate rhythm, clear S1, S2 positive bowel sounds, abdomen is soft, nontender neuro patient is alert x3, no focal deficits Objective Data Active Medications Enoxaparin Sodium (Enoxaparin Sodium 40 Mg/0.4 Ml Syringe) 40 mg SUBCUT Q24H [facility] Last Admin: 01/13/23 00:09 Dose: 40 mg Documented By: MILLER Glucose (Glucose Gel 15 Gm Gel..Gram.) 15 gm PO Q15M PRN; Protocol PRN Reason: per Hypoglycemia Standing Ord. Dextrose (D10) 250 mls @ 750 mls/hr IV Q15M PRN; Protocol PRN Reason: per Hypoglycemia Standing Ord. Insulin Human Lispro (Insulin Lispro 100 Unit/Ml 3 Ml Vial) 0 unit SUBCUT Q6H [facility]; Protocol Last Admin: 01/13/23 06:26 Dose: Not Given Documented By: CAROLINE Non-Admin Reason: NPO Ondansetron HCl (Ondansetron Hcl 4 Mg/2 Ml Vial) 4 mg IVPUSH Q8H PRN PRN Reason: Nausea and Vomiting Pharmacy Consult (Consult Rx Perform Med Rec) 1 each MISCELLANE ONCE PRN PRN Reason: Consult order Sodium Chloride (0.9 % Sodium Chloride Flush 3 Ml Syringe) 3 ml IVFLUSH QSHIFT [facility] Last Admin: 01/13/23 08:02 Dose: 3 ml Documented By: YNES Labs 01/13/23 06:43 01/13/23 06:43 Labs: Laboratory Results - last 24 hr 01/12/23 01/12/23 01/12/23 16:13 16:13 16:56 MCV 91.5 MCH 31.6 MCHC 34.5 RDW 13.4 Plt Count 262 MPV 9.6 Immature Gran % (Auto) 0.6 H Neut % (Auto) 70.2 Lymph % (Auto) 21.3 Burnett % (Auto) 6.5 Eos % (Auto) 0.9 Baso % (Auto) 0.5 Lymph # (Auto) 3.1 Burnett # (Auto) 0.9 Eos # (Auto) 0.1 Baso # (Auto) 0.1 Abs Immat Gran (auto) 0.09 H Absolute Neuts (auto) 10.1 H Absolute Nucleated RBC 0.000 Nucleated RBC % (auto) 0.0 VBG pH VBG pCO2 VBG pO2 VBG HCO3 VBG O2 Saturation VBG Base Excess Anion Gap 12 Estim Creat Clear Calc 74.5 Estimated GFR > 60 POC Glucose Random Glucose 119 H Lactic Acid Calcium 9.2 Total Bilirubin 0.4 AST 11 ALT 13 Alkaline Phosphatase 82 Ammonia Total Protein 6.4 L Albumin 3.8 TSH 1.20 Urine Color Yellow Urine Appearance Clear Urine pH 5.5 Ur Specific [place] >= 1.030 H Urine Protein Trace Urine Glucose (UA) >=1000 H Urine Ketones Negative Urine Blood Negative Urine Nitrite Negative Ur Leukocyte Esterase Negative Urine RBC 0-2 Urine WBC 0-5 Ur Squamous Epith Cells 0-2 Urine Bacteria None Seen Hyaline Casts 0-2 Urine Yeast Present Acetaminophen < 17 01/12/23 01/12/23 01/12/23 20:50 21:14 21:19 MCV MCH MCHC RDW Plt Count MPV Immature Gran % (Auto) Neut % (Auto) Lymph % (Auto) Burnett % (Auto) Eos % (Auto) Baso % (Auto) Lymph # (Auto) Burnett # (Auto) Eos # (Auto) Baso # (Auto) Abs Immat Gran (auto) Absolute Neuts (auto) Absolute Nucleated RBC Nucleated RBC % (auto) VBG pH 7.40 VBG pCO2 36 VBG pO2 56 VBG HCO3 22 VBG O2 Saturation 87.0 VBG Base Excess -1.3 Anion Gap Estim Creat Clear Calc Estimated GFR POC Glucose 158 H Random Glucose Lactic Acid 1.4 Calcium Total Bilirubin AST ALT Alkaline Phosphatase Ammonia Total Protein Albumin TSH Urine Color Urine Appearance Urine pH Ur Specific [place] Urine Protein Urine Glucose (UA) Urine Ketones Urine Blood Urine Nitrite Ur Leukocyte Esterase Urine RBC Urine WBC Ur Squamous Epith Cells Urine Bacteria Hyaline Casts Urine Yeast Acetaminophen 01/12/23 01/13/23 01/13/23 22:01 01:21 06:10 MCV MCH MCHC RDW Plt Count MPV Immature Gran % (Auto) Neut % (Auto) Lymph % (Auto) Burnett % (Auto) Eos % (Auto) Baso % (Auto) Lymph # (Auto) Burnett # (Auto) Eos # (Auto) Baso # (Auto) Abs Immat Gran (auto) Absolute Neuts (auto) Absolute Nucleated RBC Nucleated RBC % (auto) VBG pH VBG pCO2 VBG pO2 VBG HCO3 VBG O2 Saturation VBG Base Excess Anion Gap Estim Creat Clear Calc Estimated GFR POC Glucose 158 H 165 H Random Glucose Lactic Acid Calcium Total Bilirubin AST ALT Alkaline Phosphatase Ammonia 26 Total Protein Albumin TSH Urine Color Urine Appearance Urine pH Ur Specific [place] Urine Protein Urine Glucose (UA) Urine Ketones Urine Blood Urine Nitrite Ur Leukocyte Esterase Urine RBC Urine WBC Ur Squamous Epith Cells Urine Bacteria Hyaline Casts Urine Yeast Acetaminophen 01/13/23 01/13/23 01/13/23 06:43 06:43 07:53 MCV 90.7 MCH 31.4 MCHC 34.6 RDW 13.5 Plt Count 260 MPV 9.5 Immature Gran % (Auto) 0.5 H Neut % (Auto) 62.6 Lymph % (Auto) 27.6 Burnett % (Auto) 7.5 Eos % (Auto) 1.3 Baso % (Auto) 0.5 Lymph # (Auto) 3.6 Burnett # (Auto) 1.0 Eos # (Auto) 0.2 Baso # (Auto) 0.1 Abs Immat Gran (auto) 0.07 H Absolute Neuts (auto) 8.1 Absolute Nucleated RBC 0.000 Nucleated RBC % (auto) 0.0 VBG pH VBG pCO2 VBG pO2 VBG HCO3 VBG O2 Saturation VBG Base Excess Anion Gap 17 Estim Creat Clear Calc 79.4 Estimated GFR > 60 POC Glucose 189 H Random Glucose 157 H Lactic Acid Calcium 9.4 Total Bilirubin AST ALT Alkaline Phosphatase Ammonia Total Protein Albumin TSH Urine Color Urine Appearance Urine pH Ur Specific [place] Urine Protein Urine Glucose (UA) Urine Ketones Urine Blood Urine Nitrite Ur Leukocyte Esterase Urine RBC Urine WBC Ur Squamous Epith Cells Urine Bacteria Hyaline Casts Urine Yeast Acetaminophen Assessment and Plan (1) Altered mental status: Status: Acute Plan This is a 67-year-old female with pertinent history of Lewy body dementia, essential hypertension, qxq-kaywwly-goihmadne diabetes mellitus who was brought to the emergency department for evaluation of altered mentation.? Acute encephalopathy, unclear etiology history of Lewy body dementia and previous infarction.? Consider EEG/Spinal tap if mentation does not improve.? Consulting Neurology, appreciate assistance.? Drug screen and Tylenol level negative normal ammonia, TSH no MRI on the weekend, check head and neck CTA Ona-tlxcnha-shojxhfxb diabetes mellitus Initiating Accu-Cheks with sliding scale insulin every 6 hours Essential hypertension Continue home antihypertensives once patient no longer NPO Leukocytosis UA and chest x-ray within normal limits.? Repeat in a.m. DVT prophylaxis:? Lovenox Full code.? Discuss with in a.m. Attending Dr. Vazquez hospital stay for close monitoring of mentation.? Time Spent With Patient Time: Total time managing care of this patient today ____ minutes. Quality Stroke Does the patient have a stroke diagnosis?: No VTE Prior VTE?: No VTE Risk Level:: Medical - moderate - high VTE Device Contraindication: Treatment Not Indicated VTE Drug Contraindication: N/A - Med Ordered
[2023-01-13] MEDS: iohexoL 350 MG/ML 100 ML INFUS..BTL IV (11:39)
[2023-01-13 11:46] VITALS: BP 128/60; PULSE 82; RESP 20; TEMP 36.3; O2SAT 95
[2023-01-13 11:55] LABS: Glucose, Whole Blood 235 mg/dL (60-115)
--- NOTE | 2023-01-13 12:22 | PHA.MEDREC ---
Pharmacy Consult ? Medication Reconciliation Pharmacy has completed the medication reconciliation. spoke with patient and . both are poor historians and seemed confused when asking about her medications. As I read off medications she mostly answered yes to all of them besides donepezil and myrbetriq which she was unsure about and could not remember, as well. She has been consistently picking them up at the pharmacy so I included them and went off of claim history. I also asked if the insulin dose has changed recently and they said no.
[2023-01-13] MEDS: vancomycin/NS 2,000 MG/500 ML PLAST..BAG 250 MG IV (12:26)
[2023-01-13] MEDS: Insulin Lispro 100 UNIT/ML 3 ML VIAL SUBCUT (12:26)
--- NOTE | 2023-01-13 12:54 | PHA.PROG ---
Admission Date/Time: January 12, 2023 23:55 Indication: Bacteremia Weight in k kg Adjusted body weight in K.42 kg Jamieson body weight in K.7 kg Obesity Dosing Indication % IBW: 153% Serum Creatinine - Last 168 Hours 01/12/23 01/13/23 16:13 06:43 Creatinine 0.80 0.74 Estimated CrCl and GFR - Last 168 Hours 01/12/23 01/13/23 16:13 06:43 Estim Creat Clear Calc 74.5 79.4 Estimated GFR > 60 > 60 Vancomycin Loading Dose: 2000 mg Current Vancomycin Dosing Regimen: 1500 mg Q24H Date and Time for next Vancomycin Level to be drawn: 01/16 @ 1100 Pharmacist Comments on Vancomycin Plan: Patient is receiving vancomycin 2000 mg loading dose. Maitenanace dose vancomycin 1500 mg Q24H is schedule to start 01/14 @ 1300. Expected AUC 498 with a trough of 11.7. Level is scheduled for 01/16 @ 1100 prior to 4th dose Patient is obese with %IBW > 130 therefore carefully monitor is required due to high volume of distribution Pharmacy will monitor renal function daily. Chela Mattson, Briseyda Vancomycin dosing will take advantage of [employer] as a clinical decision support tool that uses Bayesian modeling to calculate individual patient's pharmacokinetic parameters and forecast the patient's drug concentration time course with the target goal AUC 24 range of 400 - 600 mg/L/hr.
--- NOTE | 2023-01-13 14:11 | P.CNNE_ITS ---
History of Present Illness Data of Consult Service Date: 01/13/23 Primary Care Provider: Unknown Physician HPI Reason for consult: Change in mental status 67 years old woman with multifactorial dementia of, primarily from multiple cerebral infarct especially by occipital infarcts associated with multiple types of intracranial atherosclerotic cerebrovascular disease. Now and then she has been admitted in hospital. She was here with change in mental status. When I asked her why she was here she could not tell me. She was not in any distress. 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 Mother Angina at rest Sister Lung cancer Colon cancer COPD (chronic obstructive pulmonary disease) Surgical History Surgical History History of appendectomy History of arthroscopy of both knees History of hysterectomy History of pancreatic surgery Social History Social History Household Members: Spouse Housing: House Unable to assess alcohol history related to: Unknown Alcohol intake: never Patient Tobacco Use Status: Never used Tobacco e-Cigarette/Vaping Use: Never Used Second Hand Smoke Exposure: No Use of substances other than those prescribed or required for medical reasons: No Currently Displaying Signs/Symptoms of Drug Intoxication Withdrawal: No Advance Directives: Yes Advance Directives on File: Yes Advance Directives Date on File: 07/27/20 Do you have thoughts of harming others: None Do you have a plan to hurt others: No Plan Recently lost weight without trying: Unsure Patient : No service: No Current occupational status: disabled Current occupation: right handed Sexual orientation: Straight/Heterosexual Meds Allergies Allergy/AdvReac Type Severity Reaction Status Date / Time Sulfa (Sulfonamide Allergy Severe DIFFICULTY Verified 12/05/22 18:20 Antibiotics) BREATHING [SULFA (SULFONAMIDE ANTIBIOTICS)] cephalexin [From KEFLEX] Allergy Intermediate RASH,HIVES Verified 12/05/22 18:20 amoxicillin [AMOXICILLIN] Allergy Unknown DENIES Verified 12/05/22 18:20 THIS ALLERGY 03/28/2018 penicillin V Allergy Unknown Unknown Verified 12/05/22 18:20 sumatriptan [From IMITREX] AdvReac Severe HEART Verified 12/05/22 18:20 PALPITATIONS topiramate [From TOPAMAX] AdvReac Severe AGITATION Verified 12/05/22 18:20 Active Medications: Current Medications Amlodipine Besylate (Amlodipine Besylate 5 Mg Tablet) 5 mg PO DAILY [facility]; Protocol Aspirin (Aspirin Enteric Coated 81 Mg Tablet.Dr) 81 mg PO DAILY [facility] Atorvastatin Calcium (Atorvastatin Calcium 80 Mg Tablet) 80 mg PO DAILY [facility] Baclofen (Baclofen 10 Mg Tablet) 10 mg PO TID [facility] Donepezil HCl (Donepezil Hcl 5 Mg Tablet) 5 mg PO DAILY [facility] Enoxaparin Sodium (Enoxaparin Sodium 40 Mg/0.4 Ml Syringe) 40 mg SUBCUT Q24H [facility] Last Admin: 01/13/23 00:09 Dose: 40 mg Glucose (Glucose Gel 15 Gm Gel..Gram.) 15 gm PO Q15M PRN; Protocol PRN Reason: per Hypoglycemia Standing Ord. Hydrochlorothiazide (Hydrochlorothiazide 12.5 Mg Tablet) 12.5 mg PO DAILY [facility]; Protocol Dextrose (D10) 250 mls @ 750 mls/hr IV Q15M PRN; Protocol PRN Reason: per Hypoglycemia Standing Ord. Vancomycin HCl 1,500 mg/ (Sodium Chloride) 500 mls @ 333.333 mls/hr IV Q24H [facility] Insulin Glargine (Insulin Glargine,Hum.Rec.Anlog 100 Unit/Ml 10 Ml Vial) 20 unit SUBCUT BEDTIME [facility] Insulin Human Lispro (Insulin Lispro 100 Unit/Ml 3 Ml Vial) 0 unit SUBCUT Q6H [facility]; Protocol Last Admin: 01/13/23 12:26 Dose: 4 unit Loratadine (Loratadine 10 Mg Tablet) 10 mg PO DAILY [facility] Metoprolol Succinate (Metoprolol Succinate Er 25 Mg Tab.Er.24h) 25 mg PO QAM [facility]; Protocol Mirabegron (Mirabegron 25 Mg Tab.Er.24h) 25 mg PO DAILY [facility] Multivitamins/Vitamin C (Multivitamin Tablet) 1 tab PO QAM [facility] Non-Formulary Medication (Pantoprazole) 1 tab PO BID [facility] Ondansetron HCl (Ondansetron Hcl 4 Mg/2 Ml Vial) 4 mg IVPUSH Q8H PRN PRN Reason: Nausea and Vomiting Pharmacy Consult (Consult Rx Perform Med Rec) 1 each MISCELLANE ONCE PRN PRN Reason: Consult order Pharmacy Consult (Consult Rx Vancomycin Dosing) 1 each MISCELLANE DAILY PRN PRN Reason: Consult order Quetiapine Fumarate (Quetiapine Fumarate 50 Mg Tablet) 50 mg PO BEDTIME [facility] Sodium Chloride (0.9 % Sodium Chloride Flush 3 Ml Syringe) 3 ml IVFLUSH QSHIFT [facility] Last Admin: 01/13/23 08:02 Dose: 3 ml Valsartan (Valsartan 80 Mg Tablet) 80 mg PO DAILY [facility]; Protocol Home Medications Medication Instructions Recorded Confirmed Last Taken Type aspirin 81 mg tablet,delayed 1 tab PO QAM 08/06/21 01/13/23 Unknown History release atorvastatin 80 mg tablet 1 tab PO DAILY 08/06/21 01/13/23 Unknown History hydrochlorothiazide 12.5 mg capsule 1 cap PO DAILY 08/06/21 01/13/23 Unknown History pantoprazole 40 mg tablet,delayed 1 tab PO BID 08/06/21 01/13/23 Unknown History release valsartan 80 mg tablet 1 tab PO DAILY 08/06/21 01/13/23 Unknown History multivitamin 1 tab PO QAM 09/19/21 01/13/23 Unknown History mirabegron 25 mg tablet,extended 25 mg PO DAILY 01/12/23 01/12/23 Unknown History release 24 hr (Myrbetriq) amlodipine 5 mg tablet 5 mg PO DAILY 01/13/23 01/13/23 Unknown History baclofen 10 mg tablet 10 mg PO TID 01/13/23 01/13/23 Unknown History donepezil 5 mg tablet 5 mg PO DAILY 01/13/23 01/13/23 Unknown History insulin glargine 100 unit/mL (3 20 unit subcut BEDTIME 01/13/23 01/13/23 Unknown History mL) subcutaneous pen (Lantus Solostar U-100 Insulin) loratadine 10 mg tablet 10 mg PO DAILY 01/13/23 01/13/23 Unknown History quetiapine 25 mg tablet 50 mg PO BEDTIME 01/13/23 01/13/23 Unknown History Physical Exam Vital Signs: Vital Signs: Last Vital Signs Temp 97.4 F 01/13/23 11:46 Pulse 82 01/13/23 11:46 Resp 20 01/13/23 11:46 BP 128/60 01/13/23 11:46 Pulse Ox 95 01/13/23 11:46 O2 Del Method Room Air 01/13/23 11:46 BMI result Body Mass Index 31.8 Neuro: Other: She is alert and awake with normal spontaneity of speech fluency comprehension and flat affect. No focal arm or leg weakness. She did not know why she was in hospital. Results Labs 01/13/23 06:43 01/13/23 06:43 Labs: Short CBC 01/12/23 01/13/23 Range/Units 16:13 06:43 WBC 14.3 H 12.9 H (4.8-10.8) X10*3/uL Hgb 13.4 14.8 (12.0-16.0) g/dl Hct 38.8 42.8 (37.0-47.0) % Plt Count 262 260 (160-400) X10*3/uL BMP 01/12/23 01/13/23 16:13 06:43 Sodium 142 144 Potassium 3.6 3.6 Chloride 109 H 110 H Carbon Dioxide 25 21 L BUN 21 H 12 Creatinine 0.80 0.74 Calcium 9.2 9.4 Liver Function 01/12/23 Range/Units 16:13 Total Bilirubin 0.4 (0.0-1.0) mg/dL AST 11 (5-31) U/L ALT 13 (0-31) U/L Alkaline Phosphatase 82 (39-117) U/L Albumin 3.8 (3.5-5.0) g/dL Urine 01/12/23 Range/Units 16:56 Urine Color Yellow Urine Appearance Clear Urine pH 5.5 (5.0-9.0) Ur Specific [place] >= 1.030 H (1.005-1.025) Urine Protein Trace (Neg-Trace) mg/dL Urine Glucose (UA) >=1000 H (Negative) mg/dL Microbiology Microbiology Results: Microbiology 01/12/23 22:32 Blood - Venous Blood Culture - Preliminary Prelim: GPC Gram Stain only 01/12/23 22:32 Blood - Venous Blood Culture - Preliminary Prelim: GPC Gram Stain only Assessment and Plan (1) Altered mental status: Status: Acute 67 years old woman with multifactorial moderate to severe dementia with imaging revealing multiple bilateral embolic looking ischemic infarctions, specially be bilateral occipital area, associated with multiple intracranial atherosclerotic cerebrovascular lesions, cerebral atrophy and chronic microvascular ischemic changes. Mainstay of management is to rule out any acute reason for delirium such as UTI or infection. There is always a risk of of more stroke. Mainstay of management is anti-platelet therapy blood pressure control and statin. Unfortunately there is no definitive or effective treatment for this condition. Conservative measures and family education is recommended. Time Spent With Patient Time: Total time managing care of this patient today ____ minutes. Procedures Date of Service Date of Service: 01/13/23
[2023-01-13 15:16] VITALS: BP 140/63; PULSE 81; RESP 20; TEMP 36.9; O2SAT 95
--- NOTE | 2023-01-13 15:32 | MHC.CM.PN ---
Attempted to connect with family; every single number listed on file as well as in HCP document, either not in service, have voice mail options, busy signal, or answered, or just not a working number. Will approach patient.
[2023-01-13] MEDS: Baclofen 10 MG TABLET PO ×2 (15:37→19:50)
[2023-01-13] MEDS: Omeprazole 20 MG CAPSULE.DR PO (15:37)
[2023-01-13] MEDS: Aspirin Enteric Coated 81 MG TABLET.DR PO (15:37)
--- NOTE | 2023-01-13 15:52 | MHC.CM.PN ---
Met with Pt and Jairo in room. Pt lives w/ at home. Interview highly unreliable from both parties, both Pt and had different answers for each question and frequently changed their answers when consulting the other in an effort to give answers to question from RNCM. Example: Pt indicated she had nursing services in the home prior to admission while simultaneously her answered that she did not. This then lead to a discussion between them which decidedly concluded that she never had services and would never allow it. Moments later the Pt indicates she had nursing services in the past but does not any longer. The then verbalized the desire for assistance to obtain services in the home while the Pt shook her head and said no. When asked about equipment used in the home, the Pt shook her head yes, while her stated no, we don't need any of that. During a discussion about driving, the patient stated she drove herself places and her said he drove her to her appointments/he did the driving for her. They both state there are no stairs to get into the home, and then the Pt states there are a few to enter. Both Pt and say there is a flight of stairs to get upstairs to the full bathroom to shower/bathe and both parties said the Pt can do this independently. Pt and state the D/C goal is for her to return home w/him via his transport and will agree to services should the [facility] MD recommend them. ? [facility] or [facility] to evaluate couple in the home? CM spoke w/nurse following Pt/ interview regarding verification of inconsistencies; nurse confirmed also was not able to recall Pt's mediations and other questions the nurse had as well. CM to follow.
[2023-01-13 18:42] LABS: Glucose, Whole Blood 178 mg/dL (60-115)
[2023-01-13] MEDS: QUEtiapine Fumarate 50 MG TABLET PO (19:50)
[2023-01-13] MEDS: Insulin Glargine,Hum.rec.anlog 100 UNIT/ML 10 ML VIAL 20 UNIT SUBCUT (19:50)
[2023-01-13 22:58] VITALS: BP 133/56; PULSE 78; RESP 17; TEMP 36.3; O2SAT 97
[2023-01-14] MEDS: Enoxaparin Sodium 40 MG/0.4 ML SYRINGE SUBCUT ×2 (00:30→22:52)
[2023-01-14 00:31] LABS: Glucose, Whole Blood 124 mg/dL (60-115)
[2023-01-14 05:50] LABS: Glucose, Whole Blood 152 mg/dL (60-115)
[2023-01-14] MEDS: Omeprazole 20 MG CAPSULE.DR PO ×2 (05:53→17:06)
[2023-01-14 06:22] LABS: Creatinine Clr Calc Pharmacy 76.3; Estimated Glomerular Filt Rate > 60
--- NOTE | 2023-01-14 06:43 | HE.PHANOTE ---
vancomycin dosing renal function stable. continue current regimen. level scheduled for 01/16 @ 1100. Emely MooreD
[2023-01-14 07:32] VITALS: BP 140/70; PULSE 80; RESP 20; TEMP 36.4; O2SAT 97
[2023-01-14 07:58] LABS: Glucose, Whole Blood 146 mg/dL (60-115)
[2023-01-14] MEDS: hydroCHLOROthiazide 12.5 MG TABLET PO (09:02)
[2023-01-14] MEDS: Donepezil HCl 5 MG TABLET PO (09:03)
[2023-01-14] MEDS: Mirabegron 25 MG TAB.ER.24H PO (09:03)
[2023-01-14] MEDS: Metoprolol Succinate ER 25 MG TAB.ER.24H PO (09:03)
[2023-01-14] MEDS: amLODIPine Besylate 5 MG TABLET PO (09:04)
[2023-01-14] MEDS: Multivitamin TABLET 1 TAB PO (09:04)
[2023-01-14] MEDS: Loratadine 10 MG TABLET PO (09:04)
[2023-01-14] MEDS: Valsartan 80 MG TABLET PO (09:04)
[2023-01-14] MEDS: Aspirin Enteric Coated 81 MG TABLET.DR PO (09:04)
[2023-01-14] MEDS: Baclofen 10 MG TABLET PO ×3 (09:04→20:58)
[2023-01-14] MEDS: Atorvastatin Calcium 80 MG TABLET PO (09:05)
[2023-01-14] MEDS: 0.9 % Sodium Chloride Flush 3 ML SYRINGE IVFLUSH ×2 (09:10→20:59)
--- NOTE | 2023-01-14 10:51 | HO.PM.IMPN ---
Subjective Subjective Date of Service: 01/14/23 Review of Systems Follow up encephalopathy still with confusion but more alert and oriented today Physical Exam Vital Signs: Vital Signs: Last Vital Signs Temp 97.5 F 01/14/23 07:32 Pulse 80 01/14/23 07:32 Resp 20 01/14/23 07:32 BP 140/70 H 01/14/23 07:32 Pulse Ox 97 01/14/23 07:32 O2 Del Method Room Air 01/14/23 07:32 BMI result Body Mass Index 31.8 Appearing in no acute distress lung sounds are clear to auscultation heart regular rate rhythm, clear S1, S2 positive bowel sounds, abdomen is soft, nontender neuro patient is alert x3, no focal deficits Objective Data Active Medications Amlodipine Besylate (Amlodipine Besylate 5 Mg Tablet) 5 mg PO DAILY [facility]; Protocol Last Admin: 01/14/23 09:04 Dose: 5 mg Documented By: SAD[facility] Aspirin (Aspirin Enteric Coated 81 Mg Tablet.) 81 mg PO DAILY [facility] Last Admin: 01/14/23 09:04 Dose: 81 mg Documented By: [facility] Atorvastatin Calcium (Atorvastatin Calcium 80 Mg Tablet) 80 mg PO DAILY [facility] Last Admin: 01/14/23 09:05 Dose: 80 mg Documented By: [facility] Baclofen (Baclofen 10 Mg Tablet) 10 mg PO TID [facility] Last Admin: 01/14/23 09:04 Dose: 10 mg Documented By: [facility] Donepezil HCl (Donepezil Hcl 5 Mg Tablet) 5 mg PO DAILY [facility] Last Admin: 01/14/23 09:03 Dose: 5 mg Documented By: [facility] Enoxaparin Sodium (Enoxaparin Sodium 40 Mg/0.4 Ml Syringe) 40 mg SUBCUT Q24H [facility] Last Admin: 01/14/23 00:30 Dose: 40 mg Documented By: NESS Glucose (Glucose Gel 15 Gm Gel..Gram.) 15 gm PO Q15M PRN; Protocol PRN Reason: per Hypoglycemia Standing Ord. Hydrochlorothiazide (Hydrochlorothiazide 12.5 Mg Tablet) 12.5 mg PO DAILY [facility]; Protocol Last Admin: 01/14/23 09:02 Dose: 12.5 mg Documented By: [facility]AD[facility] Dextrose (D10) 250 mls @ 750 mls/hr IV Q15M PRN; Protocol PRN Reason: per Hypoglycemia Standing Ord. Vancomycin HCl 1,500 mg/ (Sodium Chloride) 500 mls @ 333.333 mls/hr IV Q24H [facility] Insulin Glargine (Insulin Glargine,Hum.Rec.Anlog 100 Unit/Ml 10 Ml Vial) 20 unit SUBCUT BEDTIME [facility] Last Admin: 01/13/23 19:50 Dose: 20 unit Documented By: NESS Insulin Human Lispro (Insulin Lispro 100 Unit/Ml 3 Ml Vial) 0 unit SUBCUT Q6H [facility]; Protocol Last Admin: 01/14/23 05:50 Dose: Not Given Documented By: NESS Non-Admin Reason: NPO Loratadine (Loratadine 10 Mg Tablet) 10 mg PO DAILY [facility] Last Admin: 01/14/23 09:04 Dose: 10 mg Documented By: [facility] Metoprolol Succinate (Metoprolol Succinate Er 25 Mg Tab.Er.24h) 25 mg PO DAILY [facility]; Protocol Last Admin: 01/14/23 09:03 Dose: 25 mg Documented By: SADIQ Mirabegron (Mirabegron 25 Mg Tab.Er.24h) 25 mg PO DAILY [facility] Last Admin: 01/14/23 09:03 Dose: 25 mg Documented By: SADIQ Multivitamins/Vitamin C (Multivitamin Tablet) 1 tab PO DAILY [facility] Last Admin: 01/14/23 09:04 Dose: 1 tab Documented By: SADIQ Omeprazole (Omeprazole 20 Mg Capsule.) 20 mg PO BID@0630,1630 [facility] Last Admin: 01/14/23 05:53 Dose: 20 mg Documented By: NESS Ondansetron HCl (Ondansetron Hcl 4 Mg/2 Ml Vial) 4 mg IVPUSH Q8H PRN PRN Reason: Nausea and Vomiting Pharmacy Consult (Consult Rx Perform Med Rec) 1 each MISCELLANE ONCE PRN PRN Reason: Consult order Pharmacy Consult (Consult Rx Vancomycin Dosing) 1 each MISCELLANE DAILY PRN PRN Reason: Consult order Quetiapine Fumarate (Quetiapine Fumarate 50 Mg Tablet) 50 mg PO BEDTIME [facility] Last Admin: 01/13/23 19:50 Dose: 50 mg Documented By: NESS Sodium Chloride (0.9 % Sodium Chloride Flush 3 Ml Syringe) 3 ml IVFLUSH QSHIFT [facility] Last Admin: 01/14/23 09:10 Dose: 3 ml Documented By: [facility] Valsartan (Valsartan 80 Mg Tablet) 80 mg PO DAILY [facility]; Protocol Last Admin: 01/14/23 09:04 Dose: 80 mg Documented By: SADIQ Labs 01/13/23 06:43 01/14/23 05:34 Labs: Laboratory Results - last 24 hr 01/13/23 01/13/23 01/14/23 11:50 18:38 00:25 Estim Creat Clear Calc Estimated GFR POC Glucose 235 H 178 H 124 H 01/14/23 01/14/23 01/14/23 05:34 05:45 07:36 Estim Creat Clear Calc 76.3 Estimated GFR > 60 POC Glucose 152 H 146 H Microbiology Microbiology Results: Microbiology 01/12/23 22:32 Blood Culture - Preliminary Blood - Venous Viridans streptococcus group 01/12/23 22:32 Blood Culture - Preliminary Blood - Venous Viridans streptococcus group Assessment and Plan (1) Altered mental status: Status: Acute Plan This is a 67-year-old female with pertinent history of Lewy body dementia, essential hypertension, [id number] diabetes mellitus who was brought to the emergency department for evaluation of altered mentation.? Strep viridans bacteremia 2/2 start Rocephin echo repeat blood cx ID consult Acute encephalopathy history of Lewy body dementia and previous infarction.? Drug screen and Tylenol level negative normal ammonia and TSH Seen and evaluated by Neurology>multiple bilateral embolic ischemic infarctions, especially occipital area. Mainstay of management anti-plat, statin and BP control Vascular surgery consult pending [id number] diabetes mellitus ss, ada diet Essential hypertension amlodipine, HCTZ, valsartan and metoprolol Leukocytosis UA and chest x-ray within normal limits. DVT prophylaxis:? Lovenox Full code.? Attending Dr. Vazquez hospital stay for close monitoring of mentation.? Time Spent With Patient Time: Total time managing care of this patient today ____ minutes. Quality Stroke Does the patient have a stroke diagnosis?: No VTE Prior VTE?: No VTE Risk Level:: Medical - moderate - high VTE Device Contraindication: Treatment Not Indicated VTE Drug Contraindication: N/A - Med Ordered
[2023-01-14 11:22] VITALS: BP 127/75; PULSE 77; RESP 20; TEMP 36.3; O2SAT 96
[2023-01-14 11:51] LABS: Glucose, Whole Blood 198 mg/dL (60-115)
[2023-01-14 12:32] LABS: Amphetamine Screen Urine Not Detected (Not Detect); Barbiturates, Urine Not Detected (Not Detect); Benzodiazepines Screen Urine Not Detected (Not Detect); Cannabinoid Screen Urine Not Detected (Not Detect); Cocaine Screen Urine Not Detected (Not Detect); Fentanyl, urine Not Detected (Not Detect); Opiate Screen Urine Not Detected (Not Detect); Phencyclidine Screen Urine Not Detected (Not Detect)
[2023-01-14] MEDS: Insulin Lispro 100 UNIT/ML 3 ML VIAL SUBCUT ×3 (12:35→20:58)
[2023-01-14] MEDS: cefTRIAXone sodium 1 GM in 0.9 % Sodium Chloride 50 ML IV (12:40)
[2023-01-14] MEDS: vancomycin HCL 1,500 MG in 0.9 % Sodium Chloride 500 ML 333.33 MG IV (13:19)
[2023-01-14 15:36] VITALS: BP 123/57; PULSE 77; RESP 20; TEMP 36.1; O2SAT 96
[2023-01-14 16:04] LABS: Glucose, Whole Blood 267 mg/dL (60-115)
[2023-01-14 19:37] LABS: Glucose, Whole Blood 218 mg/dL (60-115)
[2023-01-14] MEDS: QUEtiapine Fumarate 50 MG TABLET PO (20:58)
[2023-01-14] MEDS: Insulin Glargine,Hum.rec.anlog 100 UNIT/ML 10 ML VIAL 20 UNIT SUBCUT (20:59)
[2023-01-15] VITALS: BP 123/59; PULSE 72; RESP 16; TEMP 36.5; O2SAT 96
[2023-01-15 00:19] LABS: Glucose, Whole Blood 259 mg/dL (60-115)
--- NOTE | 2023-01-15 02:02 | PC.NURSE ---
Pt noted alert and oriented x4, some forgetfullness on events but was able to recall, no other deficits noted, ambulating with steady gait, safety measures instructed, callbell in reach, meds tolerated.
[2023-01-15] MEDS: Omeprazole 20 MG CAPSULE.DR PO ×2 (05:18→16:47)
--- NOTE | 2023-01-15 07:00 | CA_ITS ---
Transthoracic Echocardiogram Patient (Last, First, Middle): Natalia Nichole, Gender: Female Date of : 1955 Age: 67 Procedure Date: 01/15/2023 Procedure Type: Transthoracic Echocardiogram Location: [facility] [place] Height: 162.56 cm Weight: 83.92 kg BSA: 1.89 m2 Heart Rate: 71 bpm BP: 120 / 57 mmHg Beader: SB Referring MD: Jacque Anne NP Symptoms: bacteremia Study Quality: Fair parasternal/Adequate apical w contrast Conclusions: - Normal left ventricular size and systolic function. The visually estimated ejection fraction is between 60-65%. - Normal right ventricular cavity size. There is borderline right ventricular systolic function. - There is mild mitral annular calcification. - There is mild calcification of the aortic valve. Findings Procedure Information Contrast agent, definity, is being given per protocol without apparent complications. Left Ventricle Normal left ventricular size and systolic function. The visually estimated ejection fraction is between 60-65%. There is no evidence of regional wall motion abnormalities. Abnormal diastolic function is noted. Spectral Doppler is indicative of an impaired relaxation filling pattern. E/E prime ratio is between 8 and 15 consistent with indeterminate filling pressures. Right Ventricle Normal right ventricular cavity size. There is borderline right ventricular systolic function. Atria Both atria are normal in size. Aortic Valve The aortic valve structure and function is likely normal. There is mild calcification of the aortic valve. There is no aortic valve stenosis. There is no aortic valve regurgitation. Mitral Valve Normal mitral valve structure and function. There is mild mitral annular calcification. There is no mitral valve regurgitation. There is no mitral valve stenosis. Pulmonic Valve The pulmonic valve is likely normal. Tricuspid Valve The tricuspid valve was not well visualized. Normal right atrial pressure. There is no evidence of pulmonary hypertension. Great Vessels All visible segments of the aorta are normal in size. Venous The inferior vena cava is normal in size and collapses greater than 50% with inspiration. Pericardium/Pleural Prominent epicardial adipose tissue noted. There is no evidence of pericardial effusion. Prior Study Comparison No significant change compared to prior study dated: 04/04/2021. Measurements 2D Linear Measurements LVIDd: 3.74 3.9-5.3/4.2-5.9 cm LVIDd Index: 1.98 2.4-3.2/2.2-3.1 cm/m2 LVIDs: 2.78 2.0-3.6 cm LA Diam: 3.00 2.7-3.8/3.0-4.0 cm LAIDs Index: 1.59 1.5-2.3 cm/m2 LVOT Diam: 1.90 3.0+(-)1.3 cm 2D Systolic Function EF 4C: 60.20 >55% EF 2C: 72.20 >55% EF BiP: 66.50 >55% Mitral Valve MV Pk E: 0.73 MV PK A: 0.88 MV Decel Time: 217.00 E/A: 0.80 E'Lateral: 6.42 E'Medial: 4.24 E/E' Med: 17.30 E/E' Lat: 11.40 PHT: 64.00 MVA PHT: 3.44 Decel Cole: 3.37 Aortic Valve AoV Pk Patrick: 1.64 AoV Mn Patrick: 1.07 AoV VTI: 0.27 AoV Pk Grad: 11.00 Aov Mn Grad: 5.00 ARMANDO Cont.VTI: 1.85 LVOT LVOT Pk Patrick: 0.86 LVOT Mn Patrick: 0.62 LVOT VTI: 0.17 LVOT Pk Grad: 3.00 LVOT Mn Grad: 2.00 LVOT Diam: 1.90 LVOT Area: 2.84 Diastolic Function MV Pk E: 0.73 MV Pk A: 0.88 E/A: 0.80 E'Medial: 4.24 E/E' Med: 17.30 E' Laterial: 6.42 E/E' Lat: 11.40 Right Ventricle TAPSE (mm): 16.50 TVS' Patrick: 6.96 Tricuspid Valve TR Pk Patrick: 2.06 TR Pk Grad: 17.00 RA Press: 3.00 RVSP: 20.00 Great Vessels Aorta Sinus of Valsalva: 2.60 2.0-3.5 cm Ao Asc: 2.70 2.1-3.4 cm Pulmonary Veins Pulm Vein S/D 1.10 Pulmonary Valve PV Pk Patrick: 0.95 Peak PV Grad: 4.00 Updated in Other Vendor System with Status of Final Jose Otero MD electronically signed on 01/16/2023 2:21:21 PM with status of Final
[2023-01-15 07:19] VITALS: BP 120/57; PULSE 75; RESP 18; TEMP 36.7; O2SAT 95
[2023-01-15 07:42] LABS: Creatinine Clr Calc Pharmacy 77.4; Estimated Glomerular Filt Rate > 60
[2023-01-15 07:47] LABS: Glucose, Whole Blood 255 mg/dL (60-115)
[2023-01-15] MEDS: Donepezil HCl 5 MG TABLET PO (07:54)
[2023-01-15] MEDS: amLODIPine Besylate 5 MG TABLET PO (07:55)
[2023-01-15] MEDS: Valsartan 80 MG TABLET PO (07:55)
[2023-01-15] MEDS: Metoprolol Succinate ER 25 MG TAB.ER.24H PO (07:55)
[2023-01-15] MEDS: Atorvastatin Calcium 80 MG TABLET PO (07:55)
[2023-01-15] MEDS: Mirabegron 25 MG TAB.ER.24H PO (07:55)
[2023-01-15] MEDS: hydroCHLOROthiazide 12.5 MG TABLET PO (07:55)
[2023-01-15] MEDS: Multivitamin TABLET 1 TAB PO (07:55)
[2023-01-15] MEDS: Loratadine 10 MG TABLET PO (07:55)
[2023-01-15] MEDS: Baclofen 10 MG TABLET PO ×3 (07:55→21:52)
[2023-01-15] MEDS: Aspirin Enteric Coated 81 MG TABLET.DR PO (07:55)
[2023-01-15] MEDS: 0.9 % Sodium Chloride Flush 3 ML SYRINGE IVFLUSH ×3 (07:56→21:54)
[2023-01-15] MEDS: Insulin Lispro 100 UNIT/ML 3 ML VIAL SUBCUT ×4 (07:56→21:53)
--- NOTE | 2023-01-15 08:48 | P.EN_ITS ---
Event Note Date of Service: 01/15/23 Event Note: History and imaging reviewed. Multiple intracranial atherosclerotic lesions. Would need neuro interventional outpatient evaluation at [facility]. No evidence of extracranial carotid disease. Will follow-up on a p.r.n. basis Time Spent With Patient Time: Total time managing care of this patient today ____ minutes.
--- NOTE | 2023-01-15 10:58 | MHC.CM.PN ---
CM MET WITH PT (UNABLE TO REACH SPOUSE AT BOTH NUMBERS LISTED) PT STATES SHE IS ACTIVE WITH DR. Jason SOLIMAN AT [facility] AND DOES NOT WISH TO HAVE A VNA (IS NOT CURRENTLY ACTIVE WITH ANYONE). CM WILL CONTINUE TO FOLLOW.
--- NOTE | 2023-01-15 11:09 | P.PNIM_ITS ---
Subjective Subjective Date of Service: 01/15/23 Review of Systems Follow up encephalopathy still with confusion but more alert and oriented today Physical Exam Vital Signs: Vital Signs: Last Vital Signs Temp 98.0 F 01/15/23 07:19 Pulse 75 01/15/23 07:19 Resp 18 01/15/23 07:19 BP 120/57 L 01/15/23 07:19 Pulse Ox 95 01/15/23 07:19 O2 Del Method Room Air 01/15/23 07:19 BMI result Body Mass Index 31.8 Appearing in no acute distress lung sounds are clear to auscultation heart regular rate rhythm, clear S1, S2 positive bowel sounds, abdomen is soft, nontender neuro patient is alert x3, no focal deficits Objective Data Active Medications Amlodipine Besylate (Amlodipine Besylate 5 Mg Tablet) 5 mg PO DAILY COUNT INCLUDES THE [facility]; Protocol Last Admin: 01/15/23 07:55 Dose: 5 mg Documented By: NORMA Aspirin (Aspirin Enteric Coated 81 Mg Tablet.) 81 mg PO DAILY COUNT INCLUDES THE [facility] Last Admin: 01/15/23 07:55 Dose: 81 mg Documented By: NORMA Atorvastatin Calcium (Atorvastatin Calcium 80 Mg Tablet) 80 mg PO DAILY COUNT INCLUDES THE [facility] Last Admin: 01/15/23 07:55 Dose: 80 mg Documented By: NORMA Baclofen (Baclofen 10 Mg Tablet) 10 mg PO TID COUNT INCLUDES THE [facility] Last Admin: 01/15/23 07:55 Dose: 10 mg Documented By: NORMA Donepezil HCl (Donepezil Hcl 5 Mg Tablet) 5 mg PO DAILY COUNT INCLUDES THE [facility] Last Admin: 01/15/23 07:54 Dose: 5 mg Documented By: NORMA Enoxaparin Sodium (Enoxaparin Sodium 40 Mg/0.4 Ml Syringe) 40 mg SUBCUT Q24H COUNT INCLUDES THE [facility] Last Admin: 01/14/23 22:52 Dose: 40 mg Documented By: CASTILM Glucose (Glucose Gel 15 Gm Gel..Gram.) 15 gm PO Q15M PRN; Protocol PRN Reason: per Hypoglycemia Standing Ord. Glucose (Glucose Gel 15 Gm Gel..Gram.) 15 gm PO Q15M PRN; Protocol PRN Reason: per Hypoglycemia Standing Ord. Hydrochlorothiazide (Hydrochlorothiazide 12.5 Mg Tablet) 12.5 mg PO DAILY COUNT INCLUDES THE [facility]; Protocol Last Admin: 01/15/23 07:55 Dose: 12.5 mg Documented By: NORMA Dextrose (D10) 250 mls @ 750 mls/hr IV Q15M PRN; Protocol PRN Reason: per Hypoglycemia Standing Ord. Vancomycin HCl 1,500 mg/ (Sodium Chloride) 500 mls @ 333.333 mls/hr IV Q24H COUNT INCLUDES THE [facility] Last Infusion: 01/14/23 14:50 Dose: 0 mls/hr Documented By: SADIQ Dextrose (D10) 250 mls @ 750 mls/hr IV Q15M PRN; Protocol PRN Reason: per Hypoglycemia Standing Ord. Ceftriaxone Sodium 1 gm/ (Sodium Chloride) 50 mls @ 100 mls/hr IV Q24H COUNT INCLUDES THE [facility] Last Infusion: 01/14/23 13:10 Dose: 0 mls/hr Documented By: SADIQ Insulin Glargine (Insulin Glargine,Hum.Rec.Anlog 100 Unit/Ml 10 Ml Vial) 20 unit SUBCUT BEDTIME COUNT INCLUDES THE [facility] Last Admin: 01/14/23 20:59 Dose: 20 unit Documented By: CARL Insulin Human Lispro (Insulin Lispro 100 Unit/Ml 3 Ml Vial) 0 unit SUBCUT QIDACHS COUNT INCLUDES THE [facility]; Protocol Last Admin: 01/15/23 07:56 Dose: 6 unit Documented By: NORMA Loratadine (Loratadine 10 Mg Tablet) 10 mg PO DAILY COUNT INCLUDES THE [facility] Last Admin: 01/15/23 07:55 Dose: 10 mg Documented By: NORMA Metoprolol Succinate (Metoprolol Succinate Er 25 Mg Tab.Er.24h) 25 mg PO DAILY COUNT INCLUDES THE [facility]; Protocol Last Admin: 01/15/23 07:55 Dose: 25 mg Documented By: NORMA Mirabegron (Mirabegron 25 Mg Tab.Er.24h) 25 mg PO DAILY COUNT INCLUDES [facility] Last Admin: 01/15/23 07:55 Dose: 25 mg Documented By: NORMA Multivitamins/Vitamin C (Multivitamin Tablet) 1 tab PO DAILY COUNT INCLUDES THE [facility] Last Admin: 01/15/23 07:55 Dose: 1 tab Documented By: NORMA Omeprazole (Omeprazole 20 Mg Capsule.) 20 mg PO BID@0630,1630 COUNT INCLUDES [facility] Last Admin: 01/15/23 05:18 Dose: 20 mg Documented By: CARL Ondansetron HCl (Ondansetron Hcl 4 Mg/2 Ml Vial) 4 mg IVPUSH Q8H PRN PRN Reason: Nausea and Vomiting Pharmacy Consult (Consult Rx Perform Med Rec) 1 each MISCELLANE ONCE PRN PRN Reason: Consult order Pharmacy Consult (Consult Rx Vancomycin Dosing) 1 each MISCELLANE DAILY PRN PRN Reason: Consult order Quetiapine Fumarate (Quetiapine Fumarate 50 Mg Tablet) 50 mg PO BEDTIME COUNT INCLUDES THE [facility] Last Admin: 01/14/23 20:58 Dose: 50 mg Documented By: CARL Sodium Chloride (0.9 % Sodium Chloride Flush 3 Ml Syringe) 3 ml IVFLUSH QSHIFT COUNT INCLUDES THE [facility] Last Admin: 01/15/23 07:56 Dose: 3 ml Documented By: NORMA Valsartan (Valsartan 80 Mg Tablet) 80 mg PO DAILY COUNT INCLUDES THE [facility]; Protocol Last Admin: 01/15/23 07:55 Dose: 80 mg Documented By: NORMA Labs 01/13/23 06:43 01/15/23 06:59 Labs: Laboratory Results - last 24 hr 01/14/23 01/14/23 01/14/23 11:25 12:10 15:39 Estim Creat Clear Calc Estimated GFR POC Glucose 198 H 267 H Urine Opiates Screen Not Detected Urine Fentanyl Screen Not Detected Ur Barbiturates Screen Not Detected Ur Phencyclidine Scrn Not Detected Ur Amphetamines Screen Not Detected U Benzodiazepines Scrn Not Detected Urine Cocaine Screen Not Detected U Marijuana (THC) Screen Not Detected 01/14/23 01/15/23 01/15/23 19:19 00:13 06:59 Estim Creat Clear Calc 77.4 Estimated GFR > 60 POC Glucose 218 H 259 H Urine Opiates Screen Urine Fentanyl Screen Ur Barbiturates Screen Ur Phencyclidine Scrn Ur Amphetamines Screen U Benzodiazepines Scrn Urine Cocaine Screen U Marijuana (THC) Screen 01/15/23 07:20 Estim Creat Clear Calc Estimated GFR POC Glucose 255 H Urine Opiates Screen Urine Fentanyl Screen Ur Barbiturates Screen Ur Phencyclidine Scrn Ur Amphetamines Screen U Benzodiazepines Scrn Urine Cocaine Screen U Marijuana (THC) Screen Microbiology Microbiology Results: Microbiology 01/12/23 22:32 Blood Culture - Preliminary Blood - Venous Streptococcus salivarius 01/12/23 22:32 Blood Culture - Preliminary Blood - Venous Viridans streptococcus group Assessment and Plan (1) Altered mental status: Status: Acute Plan This is a 67-year-old female with pertinent history of Lewy body dementia, essential hypertension, uua-mlhyrpe-kaawwurrj diabetes mellitus who was brought to the emergency department for evaluation of altered mentation.? Strep viridans bacteremia 2/2 start Rocephin echo repeat blood cx ID consult Acute encephalopathy history of Lewy body dementia and previous infarction.? Drug screen and Tylenol level negative normal ammonia and TSH Seen and evaluated by Neurology>multiple bilateral embolic ischemic infarctions, especially occipital area. Mainstay of management anti-plat, statin and BP control Vascular surgery consult pending Gvn-lhqbcyq-[id number] diabetes mellitus ss, ada diet Essential hypertension amlodipine, HCTZ, valsartan and metoprolol Leukocytosis UA and chest x-ray within normal limits. DVT prophylaxis:? Lovenox Full code.? Attending Dr. Villa hospital stay for close monitoring of mentation re stroke Time Spent With Patient Time: Total time managing care of this patient today ____ minutes. Quality Stroke Does the patient have a stroke diagnosis?: No VTE Prior VTE?: No VTE Risk Level:: Medical - moderate - high VTE Device Contraindication: Treatment Not Indicated VTE Drug Contraindication: N/A - Med Ordered
[2023-01-15 11:39] LABS: Glucose, Whole Blood 168 mg/dL (60-115)
[2023-01-15] MEDS: Clopidogrel Bisulfate 75 MG TABLET PO (11:54)
--- NOTE | 2023-01-15 11:54 | HE.PHANOTE ---
Vancomycin Dosing renal function is stable. continue current regimen. level 01/16 @ 1100 Chela Mattson PharmD
[2023-01-15] MEDS: cefTRIAXone sodium 1 GM in 0.9 % Sodium Chloride 50 ML IV (11:56)
[2023-01-15] MEDS: vancomycin HCL 1,500 MG in 0.9 % Sodium Chloride 500 ML 333.33 MG IV (13:06)
--- NOTE | 2023-01-15 15:04 | MHC.CM.PN ---
CM MET WITH PATIENT REGARDING NEED FOR 4 WEEKS IV ABT, REFUSING TO GO TO SNF, STATES SHE AND HER HAVE DONE THIS BEFORE AT HOME. UNABLE TO REACH CHRISTOPHER OR LEAVE MESSAGE TO CONFIRM THIS AT EITHER NUMBER LISTED. ([phone]) CM WILL CONTINUE TO ATTEMPT TO REACH HIM.
--- NOTE | 2023-01-15 15:16 | W.PM.IDCN ---
History of Present Illness Data of Consult Service Date: 01/15/23 Requesting physician: Jacque Anne Primary Care Provider: Unknown Physician HPI Reason for consult: bacteremia She presents with confusion and lethargy. She has had CVAs with multiple occipital infarcts in past . She also has Lewy body dementia. She has allergies to Sulfa shortness of breath mentioned as well as Keflex hives. 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 Mother Angina at rest Sister Lung cancer Colon cancer COPD (chronic obstructive pulmonary disease) Family history: reviewed and not pertinent Surgical History Surgical History History of appendectomy History of arthroscopy of both knees History of hysterectomy History of pancreatic surgery Social History Social History Household Members: Spouse Housing: House Unable to assess alcohol history related to: Unknown Alcohol intake: never Patient Tobacco Use Status: Never used Tobacco e-Cigarette/Vaping Use: Never Used Second Hand Smoke Exposure: No Use of substances other than those prescribed or required for medical reasons: No Currently Displaying Signs/Symptoms of Drug Intoxication Withdrawal: No Advance Directives: Yes Advance Directives on File: Yes Advance Directives Date on File: 07/27/20 Do you have thoughts of harming others: None Do you have a plan to hurt others: No Plan Recently lost weight without trying: Unsure Patient : No service: No Current occupational status: disabled Current occupation: right handed Sexual orientation: Straight/Heterosexual Meds Allergies Allergy/AdvReac Type Severity Reaction Status Date / Time Sulfa (Sulfonamide Allergy Severe DIFFICULTY Verified 12/05/22 18:20 Antibiotics) BREATHING [SULFA (SULFONAMIDE ANTIBIOTICS)] cephalexin [From KEFLEX] Allergy Intermediate RASH,HIVES Verified 12/05/22 18:20 amoxicillin [AMOXICILLIN] Allergy Unknown DENIES Verified 12/05/22 18:20 THIS ALLERGY 03/28/2018 penicillin V Allergy Unknown Unknown Verified 12/05/22 18:20 sumatriptan [From IMITREX] AdvReac Severe HEART Verified 12/05/22 18:20 PALPITATIONS topiramate [From TOPAMAX] AdvReac Severe AGITATION Verified 12/05/22 18:20 Active Medications: Current Medications Amlodipine Besylate (Amlodipine Besylate 5 Mg Tablet) 5 mg PO DAILY [facility]; Protocol Last Admin: 01/15/23 07:55 Dose: 5 mg Aspirin (Aspirin Enteric Coated 81 Mg Tablet.Dr) 81 mg PO DAILY [facility] Last Admin: 01/15/23 07:55 Dose: 81 mg Atorvastatin Calcium (Atorvastatin Calcium 80 Mg Tablet) 80 mg PO DAILY [facility] Last Admin: 01/15/23 07:55 Dose: 80 mg Baclofen (Baclofen 10 Mg Tablet) 10 mg PO TID [facility] Last Admin: 01/15/23 07:55 Dose: 10 mg Clopidogrel Bisulfate (Clopidogrel Bisulfate 75 Mg Tablet) 75 mg PO DAILY [facility] Last Admin: 01/15/23 11:54 Dose: 75 mg Donepezil HCl (Donepezil Hcl 5 Mg Tablet) 5 mg PO DAILY [facility] Last Admin: 01/15/23 07:54 Dose: 5 mg Enoxaparin Sodium (Enoxaparin Sodium 40 Mg/0.4 Ml Syringe) 40 mg SUBCUT Q24H [facility] Last Admin: 01/14/23 22:52 Dose: 40 mg Glucose (Glucose Gel 15 Gm Gel..Gram.) 15 gm PO Q15M PRN; Protocol PRN Reason: per Hypoglycemia Standing Ord. Glucose (Glucose Gel 15 Gm Gel..Gram.) 15 gm PO Q15M PRN; Protocol PRN Reason: per Hypoglycemia Standing Ord. Hydrochlorothiazide (Hydrochlorothiazide 12.5 Mg Tablet) 12.5 mg PO DAILY [facility]; Protocol Last Admin: 01/15/23 07:55 Dose: 12.5 mg Dextrose (D10) 250 mls @ 750 mls/hr IV Q15M PRN; Protocol PRN Reason: per Hypoglycemia Standing Ord. Vancomycin HCl 1,500 mg/ (Sodium Chloride) 500 mls @ 333.333 mls/hr IV Q24H [facility] Last Infusion: 01/15/23 14:52 Dose: Infused Dextrose (D10) 250 mls @ 750 mls/hr IV Q15M PRN; Protocol PRN Reason: per Hypoglycemia Standing Ord. Ceftriaxone Sodium 1 gm/ (Sodium Chloride) 50 mls @ 100 mls/hr IV Q24H [facility] Last Infusion: 01/15/23 12:47 Dose: Infused Insulin Glargine (Insulin Glargine,Hum.Rec.Anlog 100 Unit/Ml 10 Ml Vial) 20 unit SUBCUT BEDTIME [facility] Last Admin: 01/14/23 20:59 Dose: 20 unit Insulin Human Lispro (Insulin Lispro 100 Unit/Ml 3 Ml Vial) 0 unit SUBCUT QIDACHS [facility]; Protocol Last Admin: 01/15/23 11:56 Dose: 2 unit Loratadine (Loratadine 10 Mg Tablet) 10 mg PO DAILY [facility] Last Admin: 01/15/23 07:55 Dose: 10 mg Metoprolol Succinate (Metoprolol Succinate Er 25 Mg Tab.Er.24h) 25 mg PO DAILY [facility]; Protocol Last Admin: 01/15/23 07:55 Dose: 25 mg Mirabegron (Mirabegron 25 Mg Tab.Er.24h) 25 mg PO DAILY [facility] Last Admin: 01/15/23 07:55 Dose: 25 mg Multivitamins/Vitamin C (Multivitamin Tablet) 1 tab PO DAILY [facility] Last Admin: 01/15/23 07:55 Dose: 1 tab Omeprazole (Omeprazole 20 Mg Capsule.Dr) 20 mg PO BID@0630,1630 [facility] Last Admin: 01/15/23 05:18 Dose: 20 mg Ondansetron HCl (Ondansetron Hcl 4 Mg/2 Ml Vial) 4 mg IVPUSH Q8H PRN PRN Reason: Nausea and Vomiting Pharmacy Consult (Consult Rx Perform Med Rec) 1 each MISCELLANE ONCE PRN PRN Reason: Consult order Pharmacy Consult (Consult Rx Vancomycin Dosing) 1 each MISCELLANE DAILY PRN PRN Reason: Consult order Quetiapine Fumarate (Quetiapine Fumarate 50 Mg Tablet) 50 mg PO BEDTIME [facility] Last Admin: 01/14/23 20:58 Dose: 50 mg Sodium Chloride (0.9 % Sodium Chloride Flush 3 Ml Syringe) 3 ml IVFLUSH QSHIFT [facility] Last Admin: 01/15/23 07:56 Dose: 3 ml Valsartan (Valsartan 80 Mg Tablet) 80 mg PO DAILY [facility]; Protocol Last Admin: 01/15/23 07:55 Dose: 80 mg Home Medications Medication Instructions Recorded Confirmed Last Taken Type aspirin 81 mg tablet,delayed 1 tab PO QAM 08/06/21 01/13/23 Unknown History release atorvastatin 80 mg tablet 1 tab PO DAILY 08/06/21 01/13/23 Unknown History hydrochlorothiazide 12.5 mg capsule 1 cap PO DAILY 08/06/21 01/13/23 Unknown History pantoprazole 40 mg tablet,delayed 1 tab PO BID 08/06/21 01/13/23 Unknown History release valsartan 80 mg tablet 1 tab PO DAILY 08/06/21 01/13/23 Unknown History multivitamin 1 tab PO QAM 09/19/21 01/13/23 Unknown History mirabegron 25 mg tablet,extended 25 mg PO DAILY 01/12/23 01/12/23 Unknown History release 24 hr (Myrbetriq) amlodipine 5 mg tablet 5 mg PO DAILY 01/13/23 01/13/23 Unknown History baclofen 10 mg tablet 10 mg PO TID 01/13/23 01/13/23 Unknown History donepezil 5 mg tablet 5 mg PO DAILY 01/13/23 01/13/23 Unknown History insulin glargine 100 unit/mL (3 20 unit subcut BEDTIME 01/13/23 01/13/23 Unknown History mL) subcutaneous pen (Lantus Solostar U-100 Insulin) loratadine 10 mg tablet 10 mg PO DAILY 01/13/23 01/13/23 Unknown History quetiapine 25 mg tablet 50 mg PO BEDTIME 01/13/23 01/13/23 Unknown History Physical Exam Vital Signs: Vital Signs: Last Vital Signs Temp 98.0 F 01/15/23 07:19 Pulse 75 01/15/23 07:19 Resp 18 01/15/23 07:19 BP 120/57 L 01/15/23 07:19 Pulse Ox 95 01/15/23 07:19 O2 Del Method Room Air 01/15/23 07:19 BMI result Body Mass Index 31.8 Const: Other: high BMI General: cooperative HEENT: Head: Yes normal to inspection Face and sinus: Yes normal facial exam Mouth: Normal oral and palatal mucosa present Teeth and gingiva: dentition normal Eyes: General: appearance normal, both eyes and all related structures Pupils: Equal, round and reactive pupils present Resp: Effort & Inspection: normal respiratory effort Cardio: Rate: regular rate Rhythm: regular rhythm GI: Palpation (GI): Soft to palpation and nontender : General: Yes no CVA tenderness Back/Spine/Pelvis: Back: no CVA tenderness Skin: General skin exam: no rashes or lesions noted Neuro: General: moves all extremities Cranial nerves: Yes Equal, round and reactive pupils present Extrem: Other: plus one edema Psych: Appearance: grossly normal Results Labs 01/13/23 06:43 01/15/23 06:59 Labs: BMP 01/15/23 06:59 Creatinine 0.76 Microbiology Microbiology Results: Microbiology 01/14/23 11:13 Blood - Venous Blood Culture - Preliminary No growth after 24 hours. 01/14/23 11:13 Blood - Venous Blood Culture - Preliminary No growth after 24 hours. 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 He has multiple drug allergies listed but is tolerating Ceftriaxone. CVA, concern over endocarditis although has had them in past as well. Plan Would continue Ceftriaxone,4 weeks from first negative blood culture. Check TTE evaluate endocarditis. Dental evaluation/treatment outpatient as may be source. Time Spent With Patient Time: Total time managing care of this patient today ____ minutes.
[2023-01-15 15:46] VITALS: BP 148/78; PULSE 83; RESP 14; TEMP 36.9; O2SAT 96
[2023-01-15 16:47] LABS: Glucose, Whole Blood 288 mg/dL (60-115)
[2023-01-15 19:40] VITALS: BP 156/88; PULSE 80; RESP 14; TEMP 36; O2SAT 95
[2023-01-15 20:40] LABS: Glucose, Whole Blood 244 mg/dL (60-115)
[2023-01-15] MEDS: Enoxaparin Sodium 40 MG/0.4 ML SYRINGE SUBCUT (21:52)
[2023-01-15] MEDS: QUEtiapine Fumarate 50 MG TABLET PO (21:52)
[2023-01-15] MEDS: Insulin Glargine,Hum.rec.anlog 100 UNIT/ML 10 ML VIAL 20 UNIT SUBCUT (21:53)
[2023-01-16] VITALS: BP 115/56; PULSE 83; RESP 16; TEMP 36.8; O2SAT 95
[2023-01-16] MEDS: Omeprazole 20 MG CAPSULE.DR PO ×2 (05:30→17:03)
[2023-01-16 06:52] LABS: Creatinine Clr Calc Pharmacy 79.4; Estimated Glomerular Filt Rate > 60
[2023-01-16 07:09] VITALS: BP 135/63; PULSE 69; RESP 20; TEMP 36.3; O2SAT 95
[2023-01-16 07:26] LABS: Glucose, Whole Blood 200 mg/dL (60-115)
[2023-01-16] MEDS: amLODIPine Besylate 5 MG TABLET PO (08:23)
[2023-01-16] MEDS: Atorvastatin Calcium 80 MG TABLET PO (08:23)
[2023-01-16] MEDS: Insulin Lispro 100 UNIT/ML 3 ML VIAL SUBCUT ×4 (08:23→20:10)
[2023-01-16] MEDS: 0.9 % Sodium Chloride Flush 3 ML SYRINGE IVFLUSH ×3 (08:23→22:03)
[2023-01-16] MEDS: Clopidogrel Bisulfate 75 MG TABLET PO (08:23)
[2023-01-16] MEDS: Baclofen 10 MG TABLET PO ×3 (08:23→19:59)
[2023-01-16] MEDS: Multivitamin TABLET 1 TAB PO (08:23)
[2023-01-16] MEDS: Aspirin Enteric Coated 81 MG TABLET.DR PO (08:23)
[2023-01-16] MEDS: hydroCHLOROthiazide 12.5 MG TABLET PO (08:24)
[2023-01-16] MEDS: Mirabegron 25 MG TAB.ER.24H PO (08:24)
[2023-01-16] MEDS: Loratadine 10 MG TABLET PO (08:24)
[2023-01-16] MEDS: Metoprolol Succinate ER 25 MG TAB.ER.24H PO (08:24)
[2023-01-16] MEDS: Valsartan 80 MG TABLET PO (08:24)
[2023-01-16] MEDS: Donepezil HCl 5 MG TABLET PO (08:24)
--- NOTE | 2023-01-16 09:04 | HO.PM.IMPN ---
Subjective Subjective Date of Service: 01/16/23 Review of Systems Follow up encephalopathy alert and oriented today no pain Physical Exam Vital Signs: Vital Signs: Last Vital Signs Temp 97.3 F 01/16/23 07:09 Pulse 69 01/16/23 07:09 Resp 20 01/16/23 07:09 BP 135/63 01/16/23 07:09 Pulse Ox 95 01/16/23 07:09 O2 Del Method Room Air 01/16/23 07:09 BMI result Body Mass Index 31.8 Appearing in no acute distress lung sounds are clear to auscultation heart regular rate rhythm, clear S1, S2 positive bowel sounds, abdomen is soft, nontender neuro patient is alert x3, no focal deficits Objective Data Active Medications Amlodipine Besylate (Amlodipine Besylate 5 Mg Tablet) 5 mg PO DAILY [facility]; Protocol Last Admin: 01/16/23 08:23 Dose: 5 mg Documented By: NORMA Aspirin (Aspirin Enteric Coated 81 Mg Tablet.) 81 mg PO DAILY [facility] Last Admin: 01/16/23 08:23 Dose: 81 mg Documented By: NORMA Atorvastatin Calcium (Atorvastatin Calcium 80 Mg Tablet) 80 mg PO DAILY [facility] Last Admin: 01/16/23 08:23 Dose: 80 mg Documented By: NORMA Baclofen (Baclofen 10 Mg Tablet) 10 mg PO TID [facility] Last Admin: 01/16/23 08:23 Dose: 10 mg Documented By: NORMA Clopidogrel Bisulfate (Clopidogrel Bisulfate 75 Mg Tablet) 75 mg PO DAILY [facility] Last Admin: 01/16/23 08:23 Dose: 75 mg Documented By: NORMA Donepezil HCl (Donepezil Hcl 5 Mg Tablet) 5 mg PO DAILY [facility] Last Admin: 01/16/23 08:24 Dose: 5 mg Documented By: NORMA Enoxaparin Sodium (Enoxaparin Sodium 40 Mg/0.4 Ml Syringe) 40 mg SUBCUT Q24H [facility] Last Admin: 01/15/23 21:52 Dose: 40 mg Documented By: TOBI Glucose (Glucose Gel 15 Gm Gel..Gram.) 15 gm PO Q15M PRN; Protocol PRN Reason: per Hypoglycemia Standing Ord. Glucose (Glucose Gel 15 Gm Gel..Gram.) 15 gm PO Q15M PRN; Protocol PRN Reason: per Hypoglycemia Standing Ord. Hydrochlorothiazide (Hydrochlorothiazide 12.5 Mg Tablet) 12.5 mg PO DAILY [facility]; Protocol Last Admin: 01/16/23 08:24 Dose: 12.5 mg Documented By: NORMA Dextrose (D10) 250 mls @ 750 mls/hr IV Q15M PRN; Protocol PRN Reason: per Hypoglycemia Standing Ord. Vancomycin HCl 1,500 mg/ (Sodium Chloride) 500 mls @ 333.333 mls/hr IV Q24H [facility] Last Infusion: 01/15/23 14:52 Dose: 0 mls/hr Documented By: NORMA Dextrose (D10) 250 mls @ 750 mls/hr IV Q15M PRN; Protocol PRN Reason: per Hypoglycemia Standing Ord. Ceftriaxone Sodium 1 gm/ (Sodium Chloride) 50 mls @ 100 mls/hr IV Q24H [facility] Last Infusion: 01/15/23 12:47 Dose: 0 mls/hr Documented By: NORMA Insulin Glargine (Insulin Glargine,Hum.Rec.Anlog 100 Unit/Ml 10 Ml Vial) 20 unit SUBCUT BEDTIME [facility] Last Admin: 01/15/23 21:53 Dose: 20 unit Documented By: TOBI Insulin Human Lispro (Insulin Lispro 100 Unit/Ml 3 Ml Vial) 0 unit SUBCUT QIDACHS [facility]; Protocol Last Admin: 01/16/23 08:23 Dose: 2 unit Documented By: NORMA Loratadine (Loratadine 10 Mg Tablet) 10 mg PO DAILY [facility] Last Admin: 01/16/23 08:24 Dose: 10 mg Documented By: NORMA Metoprolol Succinate (Metoprolol Succinate Er 25 Mg Tab.Er.24h) 25 mg PO DAILY [facility]; Protocol Last Admin: 01/16/23 08:24 Dose: 25 mg Documented By: NORMA Mirabegron (Mirabegron 25 Mg Tab.Er.24h) 25 mg PO DAILY [facility] Last Admin: 01/16/23 08:24 Dose: 25 mg Documented By: NORMA Multivitamins/Vitamin C (Multivitamin Tablet) 1 tab PO DAILY [facility] Last Admin: 01/16/23 08:23 Dose: 1 tab Documented By: NORMA Omeprazole (Omeprazole 20 Mg Capsule.Dr) 20 mg PO BID@0630,1630 [facility] Last Admin: 01/16/23 05:30 Dose: 20 mg Documented By: TOBI Ondansetron HCl (Ondansetron Hcl 4 Mg/2 Ml Vial) 4 mg IVPUSH Q8H PRN PRN Reason: Nausea and Vomiting Pharmacy Consult (Consult Rx Perform Med Rec) 1 each MISCELLANE ONCE PRN PRN Reason: Consult order Pharmacy Consult (Consult Rx Vancomycin Dosing) 1 each MISCELLANE DAILY PRN PRN Reason: Consult order Quetiapine Fumarate (Quetiapine Fumarate 50 Mg Tablet) 50 mg PO BEDTIME [facility] Last Admin: 01/15/23 21:52 Dose: 50 mg Documented By: TOBI Sodium Chloride (0.9 % Sodium Chloride Flush 3 Ml Syringe) 3 ml IVFLUSH QSHIFT [facility] Last Admin: 01/16/23 08:23 Dose: 3 ml Documented By: NORMA Valsartan (Valsartan 80 Mg Tablet) 80 mg PO DAILY [facility]; Protocol Last Admin: 01/16/23 08:24 Dose: 80 mg Documented By: NORMA Labs 01/13/23 06:43 01/16/23 05:30 Labs: Laboratory Results - last 24 hr 01/15/23 01/15/23 01/15/23 11:26 16:41 20:25 Estim Creat Clear Calc Estimated GFR POC Glucose 168 H 288 H 244 H 01/16/23 01/16/23 05:30 07:16 Estim Creat Clear Calc 79.4 Estimated GFR > 60 POC Glucose 200 H Microbiology Microbiology Results: Microbiology 01/14/23 11:13 Blood Culture - Preliminary Blood - Venous No growth after 24 hours. 01/14/23 11:13 Blood Culture - Preliminary Blood - Venous No growth after 24 hours. 01/12/23 22:32 Blood Culture - Preliminary Blood - Venous Streptococcus salivarius 01/12/23 22:32 Blood Culture - Preliminary Blood - Venous Viridans streptococcus group Assessment and Plan (1) Altered mental status: Status: Acute Plan This is a 67-year-old female with pertinent history of Lewy body dementia, essential hypertension, oju-fmzuwst-zjjdhimcw diabetes mellitus who was brought to the emergency department for evaluation of altered mentation.? Strep viridans bacteremia 2/2 continue Rocephin echo pending repeat blood cx ID following> rec 4 weeks IV rocepin midline ordered Acute encephalopathy. Resolved history of Lewy body dementia and previous infarction.? Drug screen and Tylenol level negative normal ammonia and TSH Seen and evaluated by Neurology>multiple bilateral embolic ischemic infarctions, especially occipital area. Mainstay of management anti-plat, statin and BP control Vascular surgery consult>o/p [place] [facility] [place]ek-xbfyhky-ndbvzhgda diabetes mellitus ss, ada diet Essential hypertension amlodipine, HCTZ, valsartan and metoprolol Leukocytosis UA and chest x-ray within normal limits. DVT prophylaxis:? Lovenox Full code.? Attending Dr. Villa hospital stay for close monitoring of mentation re stroke Time Spent With Patient Time: Total time managing care of this patient today ____ minutes. Quality Stroke Does the patient have a stroke diagnosis?: No VTE Prior VTE?: No VTE Risk Level:: Medical - moderate - high VTE Device Contraindication: Treatment Not Indicated VTE Drug Contraindication: N/A - Med Ordered
[2023-01-16 11:00] LABS: Glucose, Whole Blood 212 mg/dL (60-115)
[2023-01-16 11:19] LABS: Vancomycin Trough 12.1 mcg/mL (10.0-20.0)
--- NOTE | 2023-01-16 11:31 | HE.PHANOTE ---
Vancomycin Dosing Addendum Patients level came back at 12.1 today. Scr continues to improve, patients dose changed to Q12H dosing to increase trough as indication is bacteremia. Predicted AUC 475 mg/L/hr. Next draw tomorrow 01/17 @1100
[2023-01-16] MEDS: cefTRIAXone sodium 1 GM in 0.9 % Sodium Chloride 50 ML IV (11:39)
[2023-01-16] MEDS: vancomycin HCL 750 MG in 0.9 % Sodium Chloride 250 ML 265 MG IV (13:15)
--- NOTE | 2023-01-16 14:04 | MHC.CM.PN ---
Addendum entered by Kayce Michele 01/16/23 15:00: [facility] CAN BE HERE FOR A TEACH AT 1 PM 01/17. MESSAGE LEFT FOR VICK AND FOR NEIGHBOR (WALLACE ANDINO. Original Note: CM CHARGER TESTER WAS UNABLE TO REACH CHRISTOPHER AT EITHER NUMBER LISTED MULTIPLE TIMES. CAME IN EARLY AFTERNOON AND CM MET AT BEDSIDE. WAS NOT AWARE PHONES WERE NOT WORKING, NUMBER VERIFIED AND GAVE NEW # ([phone]) NEIGHBOR WAS AT BEDSIDE WELL AND OFFERED A CONTACT NUMBER SHOULD WE BE UNABLE TO REACH CHRISTOPHER (SINA BERE [phone]) EXPLAINED TO THAT PT WAS NOT WILLING TO GO TO A CENTER FOR IV RX. CHRISTOPHER FEELS HE WOULD BE ABLE TO MANAGE THIS IV AT HOME. CM REACHED OUT TO LIAISON FOR [facility] TO PROVIDE A TEACH TOMORROW AFTERNOON NEIGHBOR CAN BRING BACK THEN FOR THIS. AWAITING RETURN RESPONSE. REFERRAL MADE TO FIRST CHOICE FOR [facility].
[2023-01-16 16:06] LABS: Glucose, Whole Blood 238 mg/dL (60-115)
--- NOTE | 2023-01-16 16:17 | HO.MIDLINE_ITS ---
Midline Insertion MIDLINE INSERTION Diagnosis: [Bacteremia] Indication: residential antibiotics needed Pertinent Labs: reviewed Technique: Using sterile technique including cap and mask, glove and drape, the right arm was prepped and draped in the usual sterile fashion of full barrier technique with CHG. Using ultrasound guidance, right basilic vein access was obtained twice by Anjel Davis RN, but unable to pass guidewire. Right basilic vein access was obtained on first attempt by Laura Quintero RN. A 20G X 8CM non-PASV Midline was positioned. The procedure was performed in [S272]. Ultrasound was used to document vein patency and for needle entry. A formal ultrasound picture was recorded. Vascular Propagation Manager has released the line for use and it is currently dressed with a StatLock, Tegaderm, and CHG disc. Verification has been performed for blood return and line patency. Arm Circumference: 40 CM Equipment: BARD PowerGlide ST Midline Catheter Type: 20G X 8CM non-PASV ST Midline Lot #: [id number]
[2023-01-16] MEDS: QUEtiapine Fumarate 50 MG TABLET PO (19:59)
[2023-01-16 20:09] LABS: Glucose, Whole Blood 212 mg/dL (60-115)
[2023-01-16] MEDS: Insulin Glargine,Hum.rec.anlog 100 UNIT/ML 10 ML VIAL 20 UNIT SUBCUT (20:11)
[2023-01-16] MEDS: Enoxaparin Sodium 40 MG/0.4 ML SYRINGE SUBCUT (22:02)
[2023-01-16 23:36] VITALS: BP 132/91; PULSE 90; RESP 18; TEMP 36.3; O2SAT 96
[2023-01-17] MEDS: vancomycin HCL 750 MG in 0.9 % Sodium Chloride 250 ML 265 MG IV (01:44)
[2023-01-17] MEDS: Omeprazole 20 MG CAPSULE.DR PO ×2 (05:11→17:50)
[2023-01-17 07:07] VITALS: BP 126/58; PULSE 76; RESP 20; TEMP 36.4; O2SAT 93
[2023-01-17 07:09] LABS: Creatinine Clr Calc Pharmacy 86.4; Estimated Glomerular Filt Rate > 60
[2023-01-17 07:39] LABS: Glucose, Whole Blood 179 mg/dL (60-115)
[2023-01-17] MEDS: 0.9 % Sodium Chloride Flush 3 ML SYRINGE IVFLUSH ×3 (08:31→23:59)
[2023-01-17] MEDS: Insulin Lispro 100 UNIT/ML 3 ML VIAL SUBCUT ×3 (08:31→17:48)
[2023-01-17] MEDS: Loratadine 10 MG TABLET PO (08:32)
[2023-01-17] MEDS: Aspirin Enteric Coated 81 MG TABLET.DR PO (08:32)
[2023-01-17] MEDS: Donepezil HCl 5 MG TABLET PO (08:32)
[2023-01-17] MEDS: hydroCHLOROthiazide 12.5 MG TABLET PO (08:32)
[2023-01-17] MEDS: Valsartan 80 MG TABLET PO (08:32)
[2023-01-17] MEDS: Metoprolol Succinate ER 25 MG TAB.ER.24H PO (08:32)
[2023-01-17] MEDS: Baclofen 10 MG TABLET PO ×3 (08:32→20:38)
[2023-01-17] MEDS: Clopidogrel Bisulfate 75 MG TABLET PO (08:32)
[2023-01-17] MEDS: Multivitamin TABLET 1 TAB PO (08:32)
[2023-01-17] MEDS: Mirabegron 25 MG TAB.ER.24H PO (08:32)
[2023-01-17] MEDS: amLODIPine Besylate 5 MG TABLET PO (08:32)
[2023-01-17] MEDS: Atorvastatin Calcium 80 MG TABLET PO (08:32)
[2023-01-17 11:21] VITALS: BP 134/68; PULSE 82; RESP 20; TEMP 36.2; O2SAT 96
[2023-01-17 11:31] LABS: Glucose, Whole Blood 234 mg/dL (60-115)
[2023-01-17 11:35] LABS: Vancomycin Random 13.1 mcg/mL (15-20)
--- NOTE | 2023-01-17 11:49 | HE.PHANOTE ---
Vancomycin Dosing Addendum Level came back today at 13.1. Increase dose to Q12H dosing, patients renal function has remained stable/ slightly improved. Next draw 01/18 @1100 to ensure safety vs efficacy. Predicted AUC 524 mg/L/hr. Trough 16.8
[2023-01-17] MEDS: cefTRIAXone sodium 1 GM in 0.9 % Sodium Chloride 50 ML IV (12:06)
--- NOTE | 2023-01-17 12:29 | HO.PM.IMPN ---
Subjective Subjective Date of Service: 01/17/23 Interval History: pleasantly confused due to underlying Lewy body dementia, unable to provide meaningful history, no overnight events, vitals stable tolerating diet no nausea vomiting or diarrhea noted. Review of Systems Review of Systems: Yes all other systems are reviewed and are negative Physical Exam Vital Signs: Vital Signs: Last Vital Signs Temp 97.1 F 01/17/23 11:21 Pulse 82 01/17/23 11:21 Resp 20 01/17/23 11:21 BP 134/68 01/17/23 11:21 Pulse Ox 96 01/17/23 11:21 O2 Del Method Room Air 01/17/23 11:21 BMI result Body Mass Index 31.8 Const: Other: Gen: in no acute distress HEENT: sclera anicteric, moist mucus membranes Neck: supple Lungs: clear to auscultation bilaterally Heart: regular rate and rhythm, no murmurs Abd: soft, non-tender, non-distended Ext: no edema Skin: warm/well-perfused Neuro: no focal findings Objective Data Active Medications Amlodipine Besylate (Amlodipine Besylate 5 Mg Tablet) 5 mg PO DAILY [facility]; Protocol Last Admin: 01/17/23 08:32 Dose: 5 mg Documented By: CHIP Aspirin (Aspirin Enteric Coated 81 Mg Tablet.) 81 mg PO DAILY [facility] Last Admin: 01/17/23 08:32 Dose: 81 mg Documented By: CHIP Atorvastatin Calcium (Atorvastatin Calcium 80 Mg Tablet) 80 mg PO DAILY [facility] Last Admin: 01/17/23 08:32 Dose: 80 mg Documented By: CHIP Baclofen (Baclofen 10 Mg Tablet) 10 mg PO TID [facility] Last Admin: 01/17/23 08:32 Dose: 10 mg Documented By: CHIP Clopidogrel Bisulfate (Clopidogrel Bisulfate 75 Mg Tablet) 75 mg PO DAILY [facility] Last Admin: 01/17/23 08:32 Dose: 75 mg Documented By: CHIP Donepezil HCl (Donepezil Hcl 5 Mg Tablet) 5 mg PO DAILY [facility] Last Admin: 01/17/23 08:32 Dose: 5 mg Documented By: CHIP Enoxaparin Sodium (Enoxaparin Sodium 40 Mg/0.4 Ml Syringe) 40 mg SUBCUT Q24H [facility] Last Admin: 01/16/23 22:02 Dose: 40 mg Documented By: TOBI Glucose (Glucose Gel 15 Gm Gel..Gram.) 15 gm PO Q15M PRN; Protocol PRN Reason: per Hypoglycemia Standing Ord. Glucose (Glucose Gel 15 Gm Gel..Gram.) 15 gm PO Q15M PRN; Protocol PRN Reason: per Hypoglycemia Standing Ord. Hydrochlorothiazide (Hydrochlorothiazide 12.5 Mg Tablet) 12.5 mg PO DAILY [facility]; Protocol Last Admin: 01/17/23 08:32 Dose: 12.5 mg Documented By: CHIP Dextrose (D10) 250 mls @ 750 mls/hr IV Q15M PRN; Protocol PRN Reason: per Hypoglycemia Standing Ord. Dextrose (D10) 250 mls @ 750 mls/hr IV Q15M PRN; Protocol PRN Reason: per Hypoglycemia Standing Ord. Ceftriaxone Sodium 1 gm/ (Sodium Chloride) 50 mls @ 100 mls/hr IV Q24H [facility] Last Infusion: 01/17/23 12:16 Dose: 0 mls/hr Documented By: CHIP Vancomycin HCl 1,000 mg/ (Sodium Chloride) 270 mls @ 270 mls/hr IV Q12H [facility] Insulin Glargine (Insulin Glargine,Hum.Rec.Anlog 100 Unit/Ml 10 Ml Vial) 20 unit SUBCUT BEDTIME [facility] Last Admin: 01/16/23 20:11 Dose: 20 unit Documented By: TOBI Insulin Human Lispro (Insulin Lispro 100 Unit/Ml 3 Ml Vial) 0 unit SUBCUT QIDACHS [facility]; Protocol Last Admin: 01/17/23 12:05 Dose: 2 unit Documented By: CHIP Loratadine (Loratadine 10 Mg Tablet) 10 mg PO DAILY [facility] Last Admin: 01/17/23 08:32 Dose: 10 mg Documented By: CHIP Metoprolol Succinate (Metoprolol Succinate Er 25 Mg Tab.Er.24h) 25 mg PO DAILY [facility]; Protocol Last Admin: 01/17/23 08:32 Dose: 25 mg Documented By: CHIP Mirabegron (Mirabegron 25 Mg Tab.Er.24h) 25 mg PO DAILY [facility] Last Admin: 01/17/23 08:32 Dose: 25 mg Documented By: CHIP Multivitamins/Vitamin C (Multivitamin Tablet) 1 tab PO DAILY [facility] Last Admin: 01/17/23 08:32 Dose: 1 tab Documented By: CHIP Omeprazole (Omeprazole 20 Mg Lawrence.) 20 mg PO BID@0630,1630 [facility] Last Admin: 01/17/23 05:11 Dose: 20 mg Documented By: TOBI Ondansetron HCl (Ondansetron Hcl 4 Mg/2 Ml Vial) 4 mg IVPUSH Q8H PRN PRN Reason: Nausea and Vomiting Pharmacy Consult (Consult Rx Perform Med Rec) 1 each MISCELLANE ONCE PRN PRN Reason: Consult order Pharmacy Consult (Consult Rx Vancomycin Dosing) 1 each MISCELLANE DAILY PRN PRN Reason: Consult order Quetiapine Fumarate (Quetiapine Fumarate 50 Mg Tablet) 50 mg PO BEDTIME [facility] Last Admin: 01/16/23 19:59 Dose: 50 mg Documented By: TOBI Sodium Chloride (0.9 % Sodium Chloride Flush 3 Ml Syringe) 3 ml IVFLUSH QSHIFT [facility] Last Admin: 01/17/23 08:31 Dose: 3 ml Documented By: CHIP Valsartan (Valsartan 80 Mg Tablet) 80 mg PO DAILY [facility]; Protocol Last Admin: 01/17/23 08:32 Dose: 80 mg Documented By: CHIP Labs 01/13/23 06:43 01/17/23 06:40 Labs: Laboratory Results - last 24 hr 01/16/23 01/16/23 01/17/23 16:03 20:06 06:40 Estim Creat Clear Calc 86.4 Estimated GFR > 60 POC Glucose 238 H 212 H Random Vancomycin 01/17/23 01/17/23 01/17/23 07:32 11:03 11:23 Estim Creat Clear Calc Estimated GFR POC Glucose 179 H 234 H Random Vancomycin 13.1 L Microbiology Microbiology Results: Microbiology 01/12/23 22:32 Blood Culture - Final Blood - Venous Viridans streptococcus group Viridans streptococcus group#2 01/12/23 22:32 Blood Culture - Final Blood - Venous Streptococcus salivarius Streptococcus mitis/oralis 01/14/23 11:13 Blood Culture - Preliminary Blood - Venous No growth after 48 hours. 01/14/23 11:13 Blood Culture - Preliminary Blood - Venous No growth after 48 hours. Assessment and Plan (1) Altered mental status: Status: Acute Plan This is a 67-year-old female with pertinent history of Lewy body dementia, essential hypertension, kav-tmynvtk-hioxganit diabetes mellitus who was brought to the emergency department for evaluation of altered mentation.? Strep viridans bacteremia 2/2 continue iv Rocephin, WBC trending down normal urinalysis and chest x-ray echo showed normal EF, abnormal diastolic function repeat blood cx ID following> rec 4 weeks IV rocepin , midline placed, likely dental source id recommend outpatient dental work Acute encephalopathy. Resolved history of Lewy body dementia and previous infarction.? Drug screen and Tylenol level negative normal ammonia and TSH Seen and evaluated by Neurology>multiple bilateral embolic ischemic infarctions, especially occipital area. Mainstay of management anti-plat, statin and BP control Vascular surgery recommend o/p neuro interventional evaluation at [facility] [place] Kdn-wqavqpx-bzxlcqaqy diabetes mellitus elevated blood sugars greater than 200 will adjust insulin sliding scale, continue Lantus 20 units home dose and ada diet Essential hypertension stable blood sugars continue amlodipine, HCTZ, valsartan and metoprolol DVT prophylaxis:? Lovenox Full code.? hospital stay for continued IV antibiotic treatment and close monitoring of mentation Time Spent With Patient Time: Total time managing care of this patient today ____ minutes. Quality Stroke Does the patient have a stroke diagnosis?: No VTE Prior VTE?: No VTE Risk Level:: Medical - moderate - high VTE Device Contraindication: Treatment Not Indicated VTE Drug Contraindication: N/A - Med Ordered
[2023-01-17] MEDS: Acetaminophen 325 MG TABLET 650 MG PO ×2 (13:14→20:37)
[2023-01-17] MEDS: vancomycin HCL 1,000 MG in 0.9 % Sodium Chloride 250 ML 270 MG IV (13:15)
--- NOTE | 2023-01-17 14:50 | MHC.CM.PN ---
EMR REVIEWED, [facility] CAME IN TO DO TEECH W/PT'S , [facility]IA[facility] REPORTS TEACH WENT WELL HOWEVER PT'S WOULD BENEFIT FROM [facility] VISITS FOR THE FIRST 2 DAYS, CM HAS MESSAGED [facility] AND IS AWAITING RESPONSE AND [facility] WILL CONTACT [facility] WELL FOR AVAILABLE SOC, MIDLINE PLACED AND REPORT/LABS AND RECENT MD NOTE SENT TO [facility] VIA REFERRAL.
[2023-01-17 15:29] VITALS: BP 135/70; PULSE 78; RESP 18; TEMP 36.8; O2SAT 96
[2023-01-17 16:47] LABS: Glucose, Whole Blood 180 mg/dL (60-115)
[2023-01-17 19:07] VITALS: BP 133/64; PULSE 80; RESP 19; TEMP 37.4; O2SAT 94
--- NOTE | 2023-01-17 19:29 | PC.NURSE ---
At 1220 noon patient complain of headache., provider notified and Tylenol order/given. At 17:40 patient more confused than this am unable to feed her self don't remember how to eat '' also noticed patient having difficulty seeing, unable to tell me how many fingers in my hand. Provider notified pt assisted with feeing per providers order. Will continue to monitor
[2023-01-17 20:04] LABS: Glucose, Whole Blood 143 mg/dL (60-115)
[2023-01-17] MEDS: QUEtiapine Fumarate 50 MG TABLET PO (20:38)
[2023-01-17] MEDS: Insulin Glargine,Hum.rec.anlog 100 UNIT/ML 10 ML VIAL 20 UNIT SUBCUT (20:38)
[2023-01-17] MEDS: traZODone HCL 50 MG TABLET PO (21:28)
[2023-01-17] MEDS: hydrOXYzine HCL 25 MG TABLET PO (21:28)
[2023-01-17] MEDS: ondansetron HCL 4 MG/2 ML VIAL IVPUSH (21:35)
[2023-01-17 21:37] LABS: Glucose, Whole Blood 173 mg/dL (60-115)
[2023-01-17 23:41] VITALS: BP 158/71; PULSE 88; RESP 18; TEMP 36.7; O2SAT 94
[2023-01-17] MEDS: Enoxaparin Sodium 40 MG/0.4 ML SYRINGE SUBCUT (23:57)
--- NOTE | 2023-01-18 03:38 | PC.NURSE ---
2114- Pt became so confused, restless and anxious rocking back and forth in bed and trying to get out of bed, saying make it go away holding his head. Vital signs were taken -all are with in normal. POC was also retaken and its with in normal. notified so as the transfer and pumphouse operator chief. Pt was given Atarax and Trazodone. Pt was able to calm down and slept for few hours.
[2023-01-18] MEDS: Omeprazole 20 MG CAPSULE.DR PO ×2 (05:24→17:27)
[2023-01-18 06:58] LABS: Hematocrit 40.2 % (37.0-47.0); Mean Corpuscular HGB Conc 34.8 g/dl (31.0-35.0); Mean Corpuscular Hemoglobin 31.9 pg (27.0-33.0); Mean Corpuscular Volume 91.6 fL (80.0-98.0); Platelet Count 207 X10*3/uL (160-400); Red Blood Count 4.39 X10*6/uL (4.20-5.50); Red Cell Distribution Width 13.8 % (11.0-16.0); White Blood Count 14.5 X10*3/uL (4.8-10.8)
[2023-01-18 07:20] LABS: Anion Gap 16 (12-20); Blood Urea Nitrogen 12 mg/dL (9-16); Calcium 9.2 mg/dL (8.4-10.2); Carbon Dioxide 22 mmol/L (22-29); Chloride 109 mmol/L (96-108); Creatinine Clr Calc Pharmacy 71.7; Estimated Glomerular Filt Rate > 60; Glucose Random 131 mg/dL (60-115); Potassium 3.6 mmol/L (3.3-5.1); Sodium 143 mmol/L (135-145)
[2023-01-18 07:22] LABS: Glucose, Whole Blood 132 mg/dL (60-115)
[2023-01-18 07:35] VITALS: BP 126/58; PULSE 79; RESP 20; TEMP 36.6; O2SAT 95
[2023-01-18] MEDS: Aspirin Enteric Coated 81 MG TABLET.DR PO (07:44)
[2023-01-18] MEDS: Multivitamin TABLET 1 TAB PO (07:44)
[2023-01-18] MEDS: Donepezil HCl 5 MG TABLET PO (07:44)
[2023-01-18] MEDS: 0.9 % Sodium Chloride Flush 3 ML SYRINGE IVFLUSH ×3 (07:44→23:25)
[2023-01-18] MEDS: Atorvastatin Calcium 80 MG TABLET PO (07:44)
[2023-01-18] MEDS: hydroCHLOROthiazide 12.5 MG TABLET PO (07:44)
[2023-01-18] MEDS: Baclofen 10 MG TABLET PO ×3 (07:45→20:18)
[2023-01-18] MEDS: Metoprolol Succinate ER 25 MG TAB.ER.24H PO (07:45)
[2023-01-18] MEDS: Mirabegron 25 MG TAB.ER.24H PO (07:45)
[2023-01-18] MEDS: Loratadine 10 MG TABLET PO (07:45)
[2023-01-18] MEDS: amLODIPine Besylate 5 MG TABLET PO (07:45)
[2023-01-18] MEDS: Clopidogrel Bisulfate 75 MG TABLET PO (07:45)
[2023-01-18] MEDS: Valsartan 80 MG TABLET PO (07:45)
[2023-01-18] MEDS: cefTRIAXone sodium 2 GM in 0.9 % Sodium Chloride 50 ML IV (09:43)
[2023-01-18 11:20] LABS: Vancomycin Random 10.6 mcg/mL (15-20)
[2023-01-18 11:27] LABS: Glucose, Whole Blood 239 mg/dL (60-115)
[2023-01-18 11:48] VITALS: BP 110/53; PULSE 70; RESP 20; TEMP 36.3; O2SAT 93
[2023-01-18] MEDS: Insulin Lispro 100 UNIT/ML 3 ML VIAL SUBCUT ×2 (12:09→20:20)
--- NOTE | 2023-01-18 14:34 | HO.PM.IMPN ---
Subjective Subjective Date of Service: 01/18/23 Interval History: patient resting in bed in no acute distress, at times patient is aware of place and person, sometimes she is forgetful, concern that patient is more confused than baseline and has visual impairment, patient this morning was unable to answer questions appropriately, 2 hours later patient was aware that she is at [facility], patient was able to take glasses and spoon from hand but unable to answer objects, remains hemodynamically stable no acute issues overnight, no behavioral change, no fevers, no chills. Review of Systems Review of Systems: Yes Unobtainable due to mental status Physical Exam Vital Signs: Vital Signs: Last Vital Signs Temp 97.3 F 01/18/23 11:48 Pulse 70 01/18/23 11:48 Resp 20 01/18/23 11:48 BP 110/53 L 01/18/23 11:48 Pulse Ox 93 01/18/23 11:48 O2 Del Method Room Air 01/18/23 11:48 BMI result Body Mass Index 31.8 Const: Other: Gen: awake, alert , in no acute distress HEENT: sclera anicteric, moist mucus membranes Neck: supple Lungs: clear to auscultation bilaterally Heart: regular rate and rhythm, no murmurs Abd: soft, non-tender, non-distended Ext: no edema Skin: warm/well-perfused, no rash Neuro:? no focal findings , speech clear aware of place, unable to answer objects when placed in front of her, but Grab objects from hands. Objective Data Active Medications Acetaminophen (Acetaminophen 325 Mg Tablet) 650 mg PO Q6H PRN PRN Reason: Pain, Mild (Pain Scale 1-3) Last Admin: 01/17/23 20:37 Dose: 650 mg Documented By: SANDRINE Amlodipine Besylate (Amlodipine Besylate 5 Mg Tablet) 5 mg PO DAILY [facility]; Protocol Last Admin: 01/18/23 07:45 Dose: 5 mg Documented By: CHIP Aspirin (Aspirin Enteric Coated 81 Mg Tablet.) 81 mg PO DAILY [facility] Last Admin: 01/18/23 07:44 Dose: 81 mg Documented By: CHIP Atorvastatin Calcium (Atorvastatin Calcium 80 Mg Tablet) 80 mg PO DAILY [facility] Last Admin: 01/18/23 07:44 Dose: 80 mg Documented By: CHIP Baclofen (Baclofen 10 Mg Tablet) 10 mg PO TID [facility] Last Admin: 01/18/23 07:45 Dose: 10 mg Documented By: CHIP Clopidogrel Bisulfate (Clopidogrel Bisulfate 75 Mg Tablet) 75 mg PO DAILY [facility] Last Admin: 01/18/23 07:45 Dose: 75 mg Documented By: CHIP Donepezil HCl (Donepezil Hcl 5 Mg Tablet) 5 mg PO DAILY [facility] Last Admin: 01/18/23 07:44 Dose: 5 mg Documented By: CHIP Enoxaparin Sodium (Enoxaparin Sodium 40 Mg/0.4 Ml Syringe) 40 mg SUBCUT Q24H [facility] Last Admin: 01/17/23 23:57 Dose: 40 mg Documented By: SANDRINE Glucose (Glucose Gel 15 Gm Gel..Gram.) 15 gm PO Q15M PRN; Protocol PRN Reason: per Hypoglycemia Standing Ord. Glucose (Glucose Gel 15 Gm Gel..Gram.) 15 gm PO Q15M PRN; Protocol PRN Reason: per Hypoglycemia Standing Ord. Hydrochlorothiazide (Hydrochlorothiazide 12.5 Mg Tablet) 12.5 mg PO DAILY [facility]; Protocol Last Admin: 01/18/23 07:44 Dose: 12.5 mg Documented By: CHIP Dextrose (D10) 250 mls @ 750 mls/hr IV Q15M PRN; Protocol PRN Reason: per Hypoglycemia Standing Ord. Dextrose (D10) 250 mls @ 750 mls/hr IV Q15M PRN; Protocol PRN Reason: per Hypoglycemia Standing Ord. Ceftriaxone Sodium 2 gm/ (Sodium Chloride) 50 mls @ 100 mls/hr IV Q24H [facility] Last Infusion: 01/18/23 10:25 Dose: 0 mls/hr Documented By: CHIP Insulin Glargine (Insulin Glargine,Hum.Rec.Anlog 100 Unit/Ml 10 Ml Vial) 20 unit SUBCUT BEDTIME [facility] Last Admin: 01/17/23 20:38 Dose: 20 unit Documented By: SANDRINE Insulin Human Lispro (Insulin Lispro 100 Unit/Ml 3 Ml Vial) 0 unit SUBCUT QIDACHS [facility]; Protocol Last Admin: 01/18/23 12:09 Dose: 6 unit Documented By: CHIP Loratadine (Loratadine 10 Mg Tablet) 10 mg PO DAILY [facility] Last Admin: 01/18/23 07:45 Dose: 10 mg Documented By: CHIP Metoprolol Succinate (Metoprolol Succinate Er 25 Mg Tab.Er.24h) 25 mg PO DAILY [facility]; Protocol Last Admin: 01/18/23 07:45 Dose: 25 mg Documented By: CHIP Mirabegron (Mirabegron 25 Mg Tab.Er.24h) 25 mg PO DAILY [facility] Last Admin: 01/18/23 07:45 Dose: 25 mg Documented By: CHIP Multivitamins/Vitamin C (Multivitamin Tablet) 1 tab PO DAILY [facility] Last Admin: 01/18/23 07:44 Dose: 1 tab Documented By: CHIP Omeprazole (Omeprazole 20 Mg Capsule.Dr) 20 mg PO BID@0630,1630 [facility] Last Admin: 01/18/23 05:24 Dose: 20 mg Documented By: SANDRINE Ondansetron HCl (Ondansetron Hcl 4 Mg/2 Ml Vial) 4 mg IVPUSH Q8H PRN PRN Reason: Nausea and Vomiting Last Admin: 01/17/23 21:35 Dose: 4 mg Documented By: SANDRINE Pharmacy Consult (Consult Rx Perform Med Rec) 1 each MISCELLANE ONCE PRN PRN Reason: Consult order Quetiapine Fumarate (Quetiapine Fumarate 50 Mg Tablet) 50 mg PO BEDTIME [facility] Last Admin: 01/17/23 20:38 Dose: 50 mg Documented By: SANDRINE Sodium Chloride (0.9 % Sodium Chloride Flush 3 Ml Syringe) 3 ml IVFLUSH QSHIFT [facility] Last Admin: 01/18/23 07:44 Dose: 3 ml Documented By: CHIP Valsartan (Valsartan 80 Mg Tablet) 80 mg PO DAILY [facility]; Protocol Last Admin: 01/18/23 07:45 Dose: 80 mg Documented By: CHIP Labs 01/18/23 06:24 01/18/23 06:24 Labs: Laboratory Results - last 24 hr 01/17/23 01/17/23 01/17/23 16:32 19:49 21:32 MCV MCH MCHC RDW Plt Count MPV Absolute Nucleated RBC Nucleated RBC % (auto) Anion Gap Estim Creat Clear Calc Estimated GFR POC Glucose 180 H 143 H 173 H Random Glucose Calcium Random Vancomycin 01/18/23 01/18/23 01/18/23 06:24 06:24 07:07 MCV 91.6 MCH 31.9 MCHC 34.8 RDW 13.8 Plt Count 207 MPV 10.0 Absolute Nucleated RBC 0.000 Nucleated RBC % (auto) 0.0 Anion Gap 16 Estim Creat Clear Calc 71.7 Estimated GFR > 60 POC Glucose 132 H Random Glucose 131 H Calcium 9.2 Random Vancomycin 01/18/23 01/18/23 10:56 11:21 MCV MCH MCHC RDW Plt Count MPV Absolute Nucleated RBC Nucleated RBC % (auto) Anion Gap Estim Creat Clear Calc Estimated GFR POC Glucose 239 H Random Glucose Calcium Random Vancomycin 10.6 L Microbiology Microbiology Results: Microbiology 01/12/23 22:32 Blood Culture - Final Blood - Venous Viridans streptococcus group Viridans streptococcus group#2 01/12/23 22:32 Blood Culture - Final Blood - Venous Streptococcus salivarius Streptococcus mitis/oralis Assessment and Plan (1) Altered mental status: Status: Acute Plan This is a 67-year-old female with pertinent history of Lewy body dementia, essential hypertension, xhw-ajenydk-bizlrtefq diabetes mellitus who was brought to the emergency department for evaluation of altered mentation.? Strep viridans bacteremia 2/2 likely dental source no acute endocarditis continue iv Rocephin adjust dose to 2 g daily, WBC fluctuating follow cbc normal urinalysis and chest x-ray echo showed normal EF, abnormal diastolic function, no valvular disease noted. repeat blood cx 01/14 neg x 48H ID following> rec 4 weeks IV rocephin , midline placed, likely dental source id recommend outpatient dental work Acute encephalopathy. Resolved as per patient appears more confused than baseline, will repeat urinalysis follow clinical course and discuss treatment plan with family history of Lewy body dementia and previous infarction.? Drug screen and Tylenol level negative normal ammonia and TSH Seen and evaluated by Neurology>multiple bilateral embolic ischemic infarctions, especially occipital area. Mainstay of management anti-platelet, statin and BP control Vascular surgery recommend o/p neuro interventional evaluation at [facility] Ndw-uynzfvg-fpxmeqelz diabetes mellitus elevated blood sugars greater than 200, insulin sliding scale, continue Lantus 20 units home dose and ada diet Essential hypertension stable blood sugars continue amlodipine, HCTZ, valsartan and metoprolol DVT prophylaxis:? Lovenox Full code.? hospital stay for continued IV antibiotic treatment and close monitoring of mentation and safe disposition to home with IV antibiotics Time Spent With Patient Time: Total time managing care of this patient today ____ minutes. Quality Stroke Does the patient have a stroke diagnosis?: No VTE Prior VTE?: No VTE Risk Level:: Medical - moderate - high VTE Device Contraindication: Treatment Not Indicated VTE Drug Contraindication: N/A - Med Ordered
[2023-01-18 15:29] VITALS: BP 119/62; PULSE 82; RESP 14; TEMP 37.6; O2SAT 94
--- NOTE | 2023-01-18 15:31 | P.CDIM_ITS ---
PROVIDER RESPONSE TEXT: To clarify, the appropriate diagnosis supported by the clinical indicators: Diastolic: chronic QUERY TEXT: PHYSICIAN'S DOCUMENTATION REQUEST Date of Query: 01/18/2023 11:18 AM EDT Patient Name: Natalia Nichole Admit Date: 01/13/2023 Dear Omi Mckeon, A review of the medical record indicates additional documentation may be needed. Please review below and update the documentation accordingly. Clinical Indicators: Past Medical History of Congestive heart failure Echo showed normal EF, abnormal diastolic function Please provide further specificity regarding the most likely type and acuity of CHF and if you are ev aluating, treating, or monitoring the CHF: Systolic Please specify if Acute, Chronic, or Acute on chronic, or Unable to determine Diastolic Please specify if Acute, Chronic, or Acute on chronic, or Unable to determine Combined Systolic/Diastolic Please specify if Acute, Chronic, or Acute on chronic, or Unable to determine Other (explain) Clinically unable to determine (explain) Thank you, Kim Ritchie, CCS, CDIS Use of terms such as suspected, likely, concern for, or probable (associated with a specific diagnosi s that is being evaluated, monitored, or treated as if it exists) are acceptable and can be coded in the inpatient se tting, when documented at the time of discharge. Please use your independent medical judgment in providing your response. THIS QUERY IS PART OF THE PERMANENT MEDICAL RECORD
[2023-01-18 16:00] LABS: Glucose, Whole Blood 144 mg/dL (60-115)
[2023-01-18 19:16] VITALS: BP 138/62; PULSE 78; RESP 14; TEMP 37.2; O2SAT 91
[2023-01-18 19:54] LABS: Glucose, Whole Blood 178 mg/dL (60-115)
[2023-01-18] MEDS: QUEtiapine Fumarate 50 MG TABLET PO (20:18)
[2023-01-18 20:21] VITALS: BP 147/61; PULSE 83; RESP 17; TEMP 36; O2SAT 95
[2023-01-18] MEDS: Insulin Glargine,Hum.rec.anlog 100 UNIT/ML 10 ML VIAL 20 UNIT SUBCUT (20:21)
[2023-01-18] MEDS: Enoxaparin Sodium 40 MG/0.4 ML SYRINGE SUBCUT (23:25)
[2023-01-19] MEDS: Omeprazole 20 MG CAPSULE.DR PO (05:50)
[2023-01-19 06:58] LABS: Hematocrit 40.6 % (37.0-47.0); Hemoglobin 13.7 g/dl (12.0-16.0); Mean Corpuscular HGB Conc 33.7 g/dl (31.0-35.0); Mean Corpuscular Hemoglobin 31.2 pg (27.0-33.0); Mean Corpuscular Volume 92.5 fL (80.0-98.0); Mean Platelet Volume 9.8 fL (9.4-12.3); Platelet Count 250 X10*3/uL (160-400); Red Blood Count 4.39 X10*6/uL (4.20-5.50); Red Cell Distribution Width 13.7 % (11.0-16.0); White Blood Count 11.8 X10*3/uL (4.8-10.8)
[2023-01-19 07:20] VITALS: BP 125/61; PULSE 79; RESP 18; TEMP 37.1; O2SAT 93
[2023-01-19 07:35] LABS: Glucose, Whole Blood 172 mg/dL (60-115)
[2023-01-19] MEDS: Loratadine 10 MG TABLET PO (07:57)
[2023-01-19] MEDS: Insulin Lispro 100 UNIT/ML 3 ML VIAL SUBCUT ×2 (07:57→12:05)
[2023-01-19] MEDS: amLODIPine Besylate 5 MG TABLET PO (07:57)
[2023-01-19] MEDS: Valsartan 80 MG TABLET PO (07:57)
[2023-01-19] MEDS: Baclofen 10 MG TABLET PO (07:58)
[2023-01-19] MEDS: Aspirin Enteric Coated 81 MG TABLET.DR PO (07:58)
[2023-01-19] MEDS: Metoprolol Succinate ER 25 MG TAB.ER.24H PO (07:58)
[2023-01-19] MEDS: Atorvastatin Calcium 80 MG TABLET PO (07:58)
[2023-01-19] MEDS: Donepezil HCl 5 MG TABLET PO (07:58)
[2023-01-19] MEDS: hydroCHLOROthiazide 12.5 MG TABLET PO (07:58)
[2023-01-19] MEDS: Clopidogrel Bisulfate 75 MG TABLET PO (07:59)
[2023-01-19] MEDS: 0.9 % Sodium Chloride Flush 3 ML SYRINGE IVFLUSH (07:59)
[2023-01-19] MEDS: Mirabegron 25 MG TAB.ER.24H PO (07:59)
[2023-01-19] MEDS: Multivitamin TABLET 1 TAB PO (07:59)
[2023-01-19] MEDS: cefTRIAXone sodium 2 GM in 0.9 % Sodium Chloride 50 ML IV (07:59)
--- NOTE | 2023-01-19 11:11 | P.DS_ITS ---
DS: Providers Provider Date of Service: 01/19/23 Date of admission: 01/12/23 23:55 Primary care physician: Chris Rordiguez MD Consults: 01/12/23 23:55 Consult to Neurology Routine Consulting Provider: [facility] Reason for consultation: altered mentation 01/14/23 10:31 Consult to Vascular Surgery Routine Consulting Provider: [facility] Services Reason for consultation: embolic stroke 01/14/23 10:59 Consult to Infectious Diseases Routine Consulting Provider: [facility] Infectious Disease Reason for consultation: bacteremia DS: Diagnosis Discharge Diagnosis (1) Altered mental status: Status: Acute DS: Summary Hospital Course Hospital Course: history of presenting illness: Date of Service: 01/12/23 Chief Complaint: Altered mentation This is a 67-year-old female with pertinent history of Lewy body dementia, essential hypertension, mpa-jleqvct-daqunwhqm diabetes mellitus who was brought to the emergency department for evaluation of altered mentation.? Patient is awake and alert but disoriented to time, place and person.? Unable to obtain any history from the patient.? History obtained from ER provider and chart review.? Patient was brought in as the noticed that the patient is acting strange since 07:00.? He noticed that the patient was not acting herself and was sleepy and lethargic.? No fever, chills, vomiting, chest discomfort, shortness of breath as per the .? Unable to obtain review of systems. hospital course: 67-year-old female with pertinent history of Lewy body dementia, essential hypertension, dhg-ouflgsd-ulkqroshf diabetes mellitus who was brought to the emergency department for evaluation of altered mentation.? Strep viridans bacteremia likely dental source, no acute endocarditis,, urinalysis and chest x-ray were unremarkable echo showed normal EF abnormal diastolic function no valvular disease noted patient seen by infectious disease she recommend outpatient dental evaluation patient treated with IV rest Rocephin 2 g daily recommend total 4 weeks of IV antibiotic after last negative blood culture on end date is 10/04 11 midline placed patient is being discharged home with VNA services has been receive teaching to administer antibiotics. Acute encephalopathy. Resolved,history of Lewy body dementia and previous infarction,Drug screen and Tylenol level negative,normal ammonia and TSH,Seen and evaluated by Neurology>multiple bilateral embolic ischemic infarctions, especially occipital area. Mainstay of management anti-platelet, statin and BP control,Vascular surgery? recommend o/p neuro interventional evaluation at [facility] , recommend to follow-up with PCP for outpatient appointment Lga-nnsnljl-mmjddvgrr diabetes mellitus recommend to continue Lantus 20 units home dose and ada diet Essential hypertension stable blood pressures, continue amlodipine, HCTZ, valsartan and metoprolol. Time Spent with Patient Time attestation: Total time managing care of this patient today ____ minutes. Discharge coordination time: Greater than 30 minutes Quality: Safe Use of Opioids Does Pt have an Active Cancer Diagnosis on the Problem List?: No Quality: Stroke Does the patient have a stroke diagnosis?: No Physical Exam Vital Signs: Vital Signs: Last Vital Signs Temp 98.7 F 01/19/23 07:20 Pulse 79 01/19/23 07:20 Resp 18 01/19/23 07:20 BP 125/61 01/19/23 07:20 Pulse Ox 93 01/19/23 07:20 O2 Del Method Room Air 01/19/23 07:20 BMI result Body Mass Index 31.8 Const: Other: Gen:? awake, alert , in no acute dis tress HEENT: scler a anicteric, moist mucus membranes N carlos: supple Lungs: clear to ausculta tion bilaterally H eart: regular rate and rhythm, no mu rmurs Abd: soft, n on-tender, non-dis tended Ext: no christina ma Skin: warm/well -perfused, no? israel h Neuro:? no focal findings , speech clear aware of pl ghislaine, person. DS: Data Data Completed and Pending Completed studies during hospitalization [Text1]: Procedures Drainage of Spinal Canal, Percutaneous Approach, Diagnostic (06/23/20) Fluoroscopy of Spinal Cord (06/23/20) Insertion of Infusion Device into Lower Vein, Percutaneous Approach (09/19/21) Introduction of Vasopressor into Central Vein, Percutaneous Approach (09/19/21) Labs on day of discharge: Laboratory Results - last 24 hr 01/18/23 01/18/23 01/18/23 10:56 11:21 15:54 WBC RBC Hgb Hct MCV MCH MCHC RDW Plt Count MPV Absolute Nucleated RBC Nucleated RBC % (auto) POC Glucose 239 H 144 H Random Vancomycin 10.6 L 05/18/23 05/19/23 05/19/23 19:47 05:43 07:22 WBC 11.8 H RBC 4.39 Hgb 13.7 Hct 40.6 MCV 92.5 MCH 31.2 MCHC 33.7 RDW 13.7 Plt Count 250 MPV 9.8 Absolute Nucleated RBC 0.000 Nucleated RBC % (auto) 0.0 POC Glucose 178 H 172 H Random Vancomycin Preliminary micro results at discharge 01/14/23 11:13 Blood Culture - Preliminary Blood - Venous No growth after 48 hours. 01/14/23 11:13 Blood Culture - Preliminary Blood - Venous No growth after 48 hours. Discharge Plan Discharge Anticipated Discharge Date/Time: 01/15/23 11:04 Patient Disposition: Home Health Service Discharge Diagnosis: strep viridans bacteremia acute encephalopathy dementia chronic bilateral embolic ischemic infarction Referrals: [facility] [Other] - 1 Day ([facility] WILL DELIVER YOUR IV ANTIBIOTICS AND THEY CAN PROVIDE OVER THE PHONE NURSING CARE AFTER REGULAR BUSINESS HOURS IF NEEDED. ) [facility] [Outside] - 1 Day ([facility] FOR IV ANTIBIOTICS ANTIBIOTICS X 4 WEEKS, A NURSE WILL SEE YOU at about 12pm tomorrow, Friday 01/19. ) Chris Rodriguez MD [Primary Care Provider] - 1 Week Brad Melendez MD [Physician] - 1 Week Discharge Medications: New clopidogrel [Plavix] 75 mg tablet 75 mg PO DAILY Qty: 30 0RF Continued metoprolol succinate 25 mg tablet extended release 24 hr 25 mg PO QAM Qty: 90 0RF Rx Instructions: Must call and make cardiology appt for refills atorvastatin 80 mg tablet 1 tab PO DAILY valsartan 80 mg tablet 1 tab PO DAILY aspirin 81 mg tablet,delayed release (DR/EC) 1 tab PO QAM pantoprazole 40 mg tablet,delayed release (DR/EC) 1 tab PO BID hydrochlorothiazide 12.5 mg capsule 1 cap PO DAILY multivitamin Tablet 1 tab PO QAM Myrbetriq 25 mg tablet extended release 24 hr 25 mg PO DAILY quetiapine 25 mg tablet 50 mg PO BEDTIME donepezil 5 mg tablet 5 mg PO DAILY amlodipine 5 mg tablet 5 mg PO DAILY baclofen 10 mg tablet 10 mg PO TID loratadine 10 mg tablet 10 mg PO DAILY insulin glargine [Lantus Solostar U-100 Insulin] 100 unit/mL (3 mL) insulin pen 20 unit subcut BEDTIME Discharge Orders: Discharge Order (Routine); Ordered 01/19/23 Ordered By: Omi Mckeon Diet: Advance to usual diet Activity on Discharge: As tolerated Stand Alone Forms: Patient Portal Discharge page Care Plan Goals: continue iv ceftriaxone 2 g daily, last day February 11 underlying dementia with fluctuation in memory multiple bilateral stroke and atherosclerotic disease, recommend outpatient neuro interventional evaluation at [facility] Concerns: ch Embolic stroke Plan of Treatment: Follow up with primary care provider regarding referral to Neuro interventional surgery at [facility] Take all medications as prescribed You have been started on Plavix and IV ceftriaxone 2 g daily through February 11 Assessment: See discharge summary
--- NOTE | 2023-01-19 11:17 | W.MHC.F2F ---
Service Date Service Date: 01/19/23 Encounter Date of encounter: 01/19/23 Reasons for Services Signs and symptoms assessed: dementia/ bilateral so stroke Reason for halfway: administration of IV, SQ, or IM injection, diabetic teaching and medication management Homebound: Leaving the home is medically contraindicated at this time without the asist of a device and/or another person due th the listed conditions above and below. Reason homebound: weakness related to hospital stay Certification: Based on the above findings, I certify that this patient is confined to the home and needs intermittent halfway care, physical therapy and/or speech therapy, or continues to need occupational therapy. The patient is under my care, and I have initiated the establishment of the plan of care. The patient will be followed by a physician who will periodically review the plan of care. Time Spent With Patient Time: Total time managing care of this patient today ____ minutes.
[2023-01-19 11:31] LABS: Glucose, Whole Blood 154 mg/dL (60-115)
--- NOTE | 2023-01-19 11:52 | MHC.CM.PN ---
Addendum entered by Rupali Cobos RN 01/19/23 13:29: IMM 01/18 IN CHART SPOUSE, CHRISTOPHER, WILL BE IN FOR 2 PM TO TRANSPORT HOME Addendum entered by Rupali Cobos RN 01/19/23 12:07: CORRECTED FLUSH FAXED TO [phone] AND UPLOADED INTO [facility] Original Note: PLAN IS HOME ON 2 G IV CEFTRIAXONE QD WITH END DATE OF FEBRUARY 11, 2023. FORMS BEING FAXED TO THIS AQUATICS DIRECTOR FOR CORRECTION, CURRENT FORM STATES 1 G.
== END 2023-01-19 14:30 | disposition home health service (06) | DRG 71 ==
LOC: HO.ED 16:53 → HO.EDOVER 01-13 00:07 → HO.IMC 01-13 00:09 → HO.S3 01-18 18:46
PROVIDERS: Nurse Practitioner Acute Care; Admitting Provider Student in an Organized Health Care Education/Training Program; Emergency Provider Internal Medicine; PCP Internal Medicine; Visit Provider Hospitalist
DX: G93.40 Encephalopathy, unspecified (principal); F05 Delirium due to known physiological condition; R78.81 Bacteremia; I50.32 Chronic diastolic (congestive) heart failure; G31.83 Neurocognitive disorder with Lewy bodies; F02.C0 Dementia in other diseases classified elsewhere, severe, without behavioral disturbance, psychotic disturbance, mood disturbance, and anxiety; F01.C0 Vascular dementia, severe, without behavioral disturbance, psychotic disturbance, mood disturbance, and anxiety; I69.398 Other sequelae of cerebral infarction; B95.4 Other streptococcus as the cause of diseases classified elsewhere; I11.0 Hypertensive heart disease with heart failure; E11.9 Type 2 diabetes mellitus without complications; D72.829 Elevated white blood cell count, unspecified; Z79.4 Long term (current) use of insulin; Z79.02 Long term (current) use of antithrombotics/antiplatelets; Z79.82 Long term (current) use of aspirin; Z79.899 Other long term (current) drug therapy
CPT/HCPCS: 36410; 36415; 70450; 70496; 70498; 71045; 80048; 80053; 80143; 80202; 80307; 81001; 81003; 82140; 82565; 82803; 82947; 83605; 84443; 85025; 85027; 87040; 87077; 87186; 87205; 93005; 93306; 99285; J0696; J1650; J2405; J3370; J3371; Q9957; Q9967

== ENCOUNTER 2023-01-24 17:15 | Outpatient (REF) | payer MEDICARE, SELFPAY ==
[2023-01-24 17:25] LABS: MANUAL DIFF FLAG NO
[2023-01-24 17:37] LABS: Basophils Absolute Auto 0.1 X10*3/uL (0.0-0.2); Basophils Percent Auto 0.7 % (0-2); Eosinophils Absolute Auto 0.4 X10*3/uL (0.0-0.4); Hematocrit 42.5 % (37.0-47.0); Hemoglobin 14.3 g/dl (12.0-16.0); Imm Gran Abs Auto 0.05 X10*3/uL (0.00-0.03); Imm Gran Pct Auto 0.4 % (0.0-0.4); Lymphocytes Absolute Auto 3.3 X10*3/uL (1.2-4.9); Lymphocytes Percent Auto 24.9 % (20-40); Mean Corpuscular HGB Conc 33.6 g/dl (31.0-35.0); Mean Corpuscular Hemoglobin 31.4 pg (27.0-33.0); Mean Corpuscular Volume 93.2 fL (80.0-98.0); Mean Platelet Volume 10.7 fL (9.4-12.3); Monocytes Absolute Auto 0.8 X10*3/uL (0.1-1.2); Monocytes Percent Auto 6.2 % (2-11); Neutrophils Absolute Auto 8.7 x10*3/uL (2.0-8.3); Neutrophils Percent Auto 64.8 % (45-73); Platelet Count 286 X10*3/uL (160-400); Red Blood Count 4.56 X10*6/uL (4.20-5.50); Red Cell Distribution Width 13.7 % (11.0-16.0); White Blood Count 13.4 X10*3/uL (4.8-10.8)
[2023-01-24 18:09] LABS: Anion Gap 27 (12-20); Blood Urea Nitrogen 16 mg/dL (9-16); Calcium 9.4 mg/dL (8.4-10.2); Carbon Dioxide 12 mmol/L (22-29); Chloride 105 mmol/L (96-108); Estimated Glomerular Filt Rate > 60; Glucose Random 309 mg/dL (60-115); Potassium 4.1 mmol/L (3.3-5.1); Sodium 140 mmol/L (135-145)
== END 2023-01-24 17:16 | disposition home or self-care (01) ==
LOC: HO.HVNA 17:15
PROVIDERS: Visit Provider Internal Medicine
DX: N39.0 Urinary tract infection, site not specified (principal)
CPT/HCPCS: 36415; 80048; 85025

== ENCOUNTER 2023-08-14 01:30 | Inpatient (IN) | payer MEDICARE, SELFPAY ==
[2023-08-14] MEDS: 0.9 % Sodium Chloride 1,000 ML 999 ML IVCONT (04:15)
[2023-08-14 05:11] VITALS: BP 163/77; PULSE 117; RESP 18; O2SAT 95; BMI 36.6
[2023-08-14 05:11] LABS: Anion Gap 19 (12-20); Blood Urea Nitrogen 24 mg/dL (9-16); Calcium 9.8 mg/dL (8.4-10.2); Carbon Dioxide 20 mmol/L (22-29); Chloride 97 mmol/L (96-108); Estimated Glomerular Filt Rate 48; Ethanol < 10 mg/dL; Glucose Random 621 mg/dL (60-115); Potassium 4.2 mmol/L (3.3-5.1)
[2023-08-14 05:12] LABS: Amphetamine Screen Urine Not Detected (Not Detect); Barbiturates, Urine Not Detected (Not Detect); Benzodiazepines Screen Urine Not Detected (Not Detect); Cannabinoid Screen Urine Not Detected (Not Detect); Cocaine Screen Urine Not Detected (Not Detect); Fentanyl, urine Not Detected (Not Detect); Opiate Screen Urine Not Detected (Not Detect); Phencyclidine Screen Urine Not Detected (Not Detect); Sodium 132 mmol/L (135-145)
[2023-08-14 05:15] LABS: Appearance Urine Clear; Color Urine Yellow; Glucose Urine UA >=1000 mg/dL (Negative); Leukocyte Esterase Urine Small (1+) (Negative); Nitrite Urine Negative (Negative); PH 5.5 (5.0-9.0); Specific Gravity - Urine >= 1.030 (1.005-1.025); UMIC TRIGGER UACC YES; Urine Blood Negative (Negative); Urine Ketones Trace mg/dL (Negative); Urine Protein Negative (Neg-Trace)
[2023-08-14 05:16] LABS: MANUAL DIFF FLAG NO
[2023-08-14 05:17] LABS: Bacteria Urine 1+ (None Seen); Hyaline Casts Urine 0-2 /LPF (0-2); UACC Culture Trigger YES; WBC Urine 21-50 /HPF (0-5)
[2023-08-14 05:19] LABS: Basophils Absolute Auto 0.1 X10*3/uL (0.0-0.2); Basophils Percent Auto 0.5 % (0-2); Eosinophils Absolute Auto 0.1 X10*3/uL (0.0-0.4); Eosinophils Percent Auto 0.9 % (0-4); Hematocrit 42.3 % (37.0-47.0); Hemoglobin 14.5 g/dl (12.0-16.0); Imm Gran Abs Auto 0.04 X10*3/uL (0.00-0.03); Imm Gran Pct Auto 0.3 % (0.0-0.4); Lymphocytes Percent Auto 15.9 % (20-40); Mean Corpuscular HGB Conc 34.3 g/dl (31.0-35.0); Mean Corpuscular Volume 90.6 fL (80.0-98.0); Mean Platelet Volume 9.6 fL (9.4-12.3); Monocytes Absolute Auto 0.8 X10*3/uL (0.1-1.2); Monocytes Percent Auto 6.6 % (2-11); Neutrophils Absolute Auto 9.4 x10*3/uL (2.0-8.3); Neutrophils Percent Auto 75.8 % (45-73); Platelet Count 301 X10*3/uL (160-400); Red Blood Count 4.67 X10*6/uL (4.20-5.50); Red Cell Distribution Width 12.8 % (11.0-16.0); White Blood Count 12.4 X10*3/uL (4.8-10.8)
[2023-08-14 05:19] LABS: Glucose, Whole Blood 487 mg/dL (60-115)
--- NOTE | 2023-08-14 05:27 | PC.NURSE ---
pt denies SI/HI at this time. sitter at bedside. pt up to use the bathroom. gait even and steady
[2023-08-14 05:34] VITALS: BP 154/68; PULSE 105; RESP 16; TEMP 36.8; O2SAT 97
[2023-08-14 05:47] VITALS: BP 156/64; PULSE 124; O2SAT 98
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
[2023-08-14 05:51] LABS: Glucose, Whole Blood 375 mg/dL (60-115)
[2023-08-14] MEDS: Insulin Glargine,Hum.rec.anlog 100 UNIT/ML 10 ML VIAL 20 UNIT SUBCUT ×2 (06:02→20:06)
[2023-08-14] MEDS: Insulin Lispro 100 UNIT/ML 3 ML VIAL 12 UNIT SUBCUT (06:03)
[2023-08-14] MEDS: cefuroxime axetiL 250 MG TABLET PO (06:08)
--- NOTE | 2023-08-14 06:18 | PC.NURSE ---
pt medicated per MAR. med rec completed
[2023-08-14] MEDS: Insulin Lispro 100 UNIT/ML 3 ML VIAL 14 UNIT SUBCUT (06:39)
--- NOTE | 2023-08-14 09:40 | PHA.MEDREC ---
Pharmacy Consult ? Medication Reconciliation Pharmacy has completed the medication reconciliation. Spoke to patient and confirmed medication list. Also called [facility] and spoke to Nimesh to confirm that metoprolol and humalog are on current med list, clopidogrel is NOT.
[2023-08-14] MEDS: Aspirin Enteric Coated 81 MG TABLET.DR PO (09:43)
[2023-08-14] MEDS: Loratadine 10 MG TABLET PO (09:43)
[2023-08-14] MEDS: Atorvastatin Calcium 80 MG TABLET PO (09:43)
[2023-08-14] MEDS: Baclofen 10 MG TABLET PO ×2 (09:43→20:05)
[2023-08-14] MEDS: amLODIPine Besylate 5 MG TABLET PO (09:43)
[2023-08-14] MEDS: Donepezil HCl 5 MG TABLET PO (09:43)
[2023-08-14] MEDS: hydroCHLOROthiazide 12.5 MG TABLET PO (09:43)
[2023-08-14] MEDS: Multivitamin TABLET 1 TAB PO (09:43)
[2023-08-14] MEDS: Valsartan 80 MG TABLET PO (09:43)
[2023-08-14 11:53] LABS: Glucose, Whole Blood 288 mg/dL (60-115)
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
--- NOTE | 2023-08-14 15:10 | ECG_ITS ---
Test Reason : CASTRON Blood Pressure : / mmHG Vent. Rate : 090 BPM Atrial Rate : 090 BPM P-R Int : 112 ms QRS Dur : 094 ms QT Int : 388 ms P-R-T Axes : 051 051 006 degrees QTc Int : 474 ms Normal sinus rhythm Low voltage QRS Borderline ECG When compared with ECG of 12-JAN-2023 16:31, No significant change was found Referred By: Domenico Rendon Electronically Signed By:Jose Otero
--- NOTE | 2023-08-14 15:45 | PC.NURSE ---
Pt adamantly refused EKG and covid swab.
[2023-08-14 17:37] LABS: Glucose, Whole Blood 392 mg/dL (60-115)
[2023-08-14 17:47] VITALS: BP 117/65; PULSE 101; RESP 18; TEMP 36.2; O2SAT 95
--- NOTE | 2023-08-14 17:52 | PC.NURSE ---
pt consented to covid swab, much calmer now. swab sent.
[2023-08-14] MEDS: Insulin Lispro 100 UNIT/ML 3 ML VIAL 15 UNIT SUBCUT (18:06)
[2023-08-14 18:11] LABS: COVID-19 Test Negative (Negative); IDNOW Serial# BCCEAD1C
--- NOTE | 2023-08-14 19:07 | PC.NURSE ---
patient appears to be relaxing at present asking to use phone periodically, oob ad reinaldo and ambulates steadily and easily. patient appears in no distress
[2023-08-14] MEDS: Omeprazole 20 MG CAPSULE.DR PO (20:07)
[2023-08-14] MEDS: QUEtiapine Fumarate 50 MG TABLET PO (20:07)
[2023-08-14] MEDS: Ibuprofen 600 MG TABLET PO (20:23)
[2023-08-14 21:38] LABS: Glucose, Whole Blood 253 mg/dL (60-115)
[2023-08-14 23:21] VITALS: BMI 35.5
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
[2023-08-15 07:53] LABS: Glucose, Whole Blood 226 mg/dL (60-115)
[2023-08-15 07:58] VITALS: BP 139/61; PULSE 82; RESP 16; TEMP 36.3; O2SAT 95
[2023-08-15 08:01] LABS: Estimated Average Glucose 255 mg/dL; Hemoglobin A1c % 10.5 % (<6.0)
[2023-08-15] MEDS: Mirabegron 25 MG TAB.ER.24H PO (08:06)
[2023-08-15] MEDS: Valsartan 80 MG TABLET PO (08:06)
[2023-08-15 08:07] LABS: Cholesterol 201 mg/dL (<200); HDL Cholesterol 41 mg/dL (>40); LDL Cholesterol Calculated 130 mg/dL (<100); Triglycerides 152 mg/dL (<150)
[2023-08-15] MEDS: amLODIPine Besylate 5 MG TABLET PO (08:07)
[2023-08-15] MEDS: Baclofen 10 MG TABLET PO ×3 (08:07→21:31)
[2023-08-15] MEDS: hydroCHLOROthiazide 12.5 MG TABLET PO (08:08)
[2023-08-15] MEDS: Donepezil HCl 5 MG TABLET PO (08:08)
[2023-08-15] MEDS: Aspirin Enteric Coated 81 MG TABLET.DR PO (08:08)
[2023-08-15] MEDS: Atorvastatin Calcium 80 MG TABLET PO (08:09)
[2023-08-15] MEDS: Loratadine 10 MG TABLET PO (08:09)
[2023-08-15] MEDS: Metoprolol Succinate ER 25 MG TAB.ER.24H PO (08:09)
[2023-08-15] MEDS: Multivitamin TABLET 1 TAB PO (08:09)
[2023-08-15] MEDS: Omeprazole 20 MG CAPSULE.DR PO ×2 (08:10→16:09)
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
--- NOTE | 2023-08-15 13:13 | PC.NURSE ---
S[employer] performed a Jens Cognitive Assessment for PT. PT scored 25/30 indicating mild cognitive impairment .
--- NOTE | 2023-08-15 16:50 | MHC.CARE ---
Elder protective report filed today 08/15/23.
[2023-08-15 17:42] LABS: Glucose, Whole Blood 497 mg/dL (60-115)
[2023-08-15] MEDS: Insulin Lispro 100 UNIT/ML 3 ML VIAL 16 UNIT SUBCUT (17:46)
[2023-08-15 20:19] VITALS: BP 152/72; PULSE 82; RESP 18; TEMP 36.3; O2SAT 96
[2023-08-15] MEDS: Nystatin Cream 15 GM TUBE 1 APPL TOPICAL (20:59)
[2023-08-15] MEDS: Insulin Glargine,Hum.rec.anlog 100 UNIT/ML 10 ML VIAL 30 UNIT SUBCUT (21:29)
[2023-08-15] MEDS: QUEtiapine Fumarate 50 MG TABLET PO (21:31)
[2023-08-16] MEDS: Omeprazole 20 MG CAPSULE.DR PO ×2 (06:29→18:12)
[2023-08-16 07:00] VITALS: BMI 35.5
[2023-08-16 07:40] VITALS: BP 133/61; PULSE 81; RESP 16; TEMP 36.2; O2SAT 96
[2023-08-16 08:26] LABS: Glucose, Whole Blood 242 mg/dL (60-115)
[2023-08-16 08:58] LABS: Glucose, Whole Blood 241 mg/dL (60-115)
[2023-08-16] MEDS: Aspirin Enteric Coated 81 MG TABLET.DR PO (09:04)
[2023-08-16] MEDS: Insulin Lispro 100 UNIT/ML 3 ML VIAL SUBCUT ×3 (09:04→18:12)
[2023-08-16] MEDS: Atorvastatin Calcium 80 MG TABLET PO (09:04)
[2023-08-16] MEDS: Mirabegron 25 MG TAB.ER.24H PO (09:05)
[2023-08-16] MEDS: hydroCHLOROthiazide 12.5 MG TABLET PO (09:05)
[2023-08-16] MEDS: Metoprolol Succinate ER 25 MG TAB.ER.24H PO (09:06)
[2023-08-16] MEDS: Donepezil HCl 5 MG TABLET PO (09:06)
[2023-08-16] MEDS: Loratadine 10 MG TABLET PO (09:06)
[2023-08-16] MEDS: Baclofen 10 MG TABLET PO ×3 (09:06→21:29)
[2023-08-16] MEDS: Multivitamin TABLET 1 TAB PO (09:06)
[2023-08-16] MEDS: amLODIPine Besylate 5 MG TABLET PO (09:07)
[2023-08-16] MEDS: Valsartan 80 MG TABLET PO (09:23)
[2023-08-16] MEDS: Nystatin Cream 15 GM TUBE 1 APPL TOPICAL (10:14)
[2023-08-16 12:31] LABS: Glucose, Whole Blood 257 mg/dL (60-115)
[2023-08-16] MEDS: Acetaminophen 325 MG TABLET 650 MG PO ×2 (12:48→21:29)
--- NOTE | 2023-08-16 13:16 | PM.EVENT ---
Event Note Date of Service: 08/16/23 Event Note: Patient tested positive for UTI with preliminary culture showing Gram-negative rods, likely E coli. Patient with long history of recurrent UTIs. Will treat with levofloxacin 250 mg p.o. x5 days, started 08/16/2023. Time Spent With Patient Time: Total time managing care of this patient today ____ minutes.
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
[2023-08-16] MEDS: levoFLOXacin 250 MG TABLET PO (14:49)
[2023-08-16 18:06] LABS: Glucose, Whole Blood 396 mg/dL (60-115)
--- NOTE | 2023-08-16 19:18 | PM.EVENT ---
Event Note Date of Service: 08/16/23 Event Note: Medical consult for hyperglycemia. Patient's sugars have been elevated since time of admission, as high as 497. Have placed patient on a diabetic diet and increased Lantus from 20 units at bedtime to 30 units at bedtime. Sugars were mildly better control during the day, however patient is POC spiked to 396 at 18:00. Will give a total of 16 units of lispro. Would strongly encourage patient to abide by a diabetic diet. Time Spent With Patient Time: Total time managing care of this patient today ____ minutes.
[2023-08-16] MEDS: Insulin Lispro 100 UNIT/ML 3 ML VIAL 6 UNIT SUBCUT (19:24)
[2023-08-16 20:21] VITALS: BP 146/67; PULSE 91; RESP 16; TEMP 36.3; O2SAT 97
[2023-08-16 21:23] LABS: Glucose, Whole Blood 264 mg/dL (60-115)
[2023-08-16] MEDS: QUEtiapine Fumarate 50 MG TABLET PO (21:29)
[2023-08-16] MEDS: Insulin Glargine,Hum.rec.anlog 100 UNIT/ML 10 ML VIAL 30 UNIT SUBCUT (21:30)
[2023-08-16] MEDS: Nystatin Powder 15 GM BOTTLE 1 APPL TOPICAL (21:36)
[2023-08-17] MEDS: Omeprazole 20 MG CAPSULE.DR PO ×2 (06:11→16:58)
[2023-08-17 07:43] LABS: Glucose, Whole Blood 259 mg/dL (60-115)
[2023-08-17 08:10] VITALS: BP 135/77; PULSE 84; RESP 16; TEMP 36.2; O2SAT 96
[2023-08-17] MEDS: Mirabegron 25 MG TAB.ER.24H PO (08:50)
[2023-08-17] MEDS: hydroCHLOROthiazide 12.5 MG TABLET PO (08:50)
[2023-08-17] MEDS: Donepezil HCl 5 MG TABLET PO (08:51)
[2023-08-17] MEDS: Aspirin Enteric Coated 81 MG TABLET.DR PO (08:51)
[2023-08-17] MEDS: Metoprolol Succinate ER 25 MG TAB.ER.24H PO (08:51)
[2023-08-17] MEDS: Multivitamin TABLET 1 TAB PO (08:51)
[2023-08-17] MEDS: amLODIPine Besylate 5 MG TABLET PO (08:51)
[2023-08-17] MEDS: Atorvastatin Calcium 80 MG TABLET PO (08:52)
[2023-08-17] MEDS: Valsartan 80 MG TABLET PO (08:52)
[2023-08-17] MEDS: Baclofen 10 MG TABLET PO ×3 (08:52→21:28)
[2023-08-17] MEDS: Loratadine 10 MG TABLET PO (08:52)
[2023-08-17] MEDS: Insulin Lispro 100 UNIT/ML 3 ML VIAL SUBCUT ×3 (08:56→16:57)
[2023-08-17 09:37] LABS: Glucose, Whole Blood 541 mg/dL (60-115)
[2023-08-17 09:39] LABS: Glucose, Whole Blood 587 mg/dL (60-115)
[2023-08-17 12:26] LABS: Glucose, Whole Blood 153 mg/dL (60-115)
[2023-08-17] MEDS: Nystatin Powder 15 GM BOTTLE 1 APPL TOPICAL ×2 (12:32→21:30)
[2023-08-17] MEDS: levoFLOXacin 250 MG TABLET PO (13:37)
--- NOTE | 2023-08-17 14:50 | HO.PSYCHPN ---
Subjective Subjective Date of Service: 08/17/23 Reason For Visit: Agitation/HI Interim History: calm, cooperative, pleasant. mood OK. states, i talked to my sister yesterday. apparently. i can't remember what we said. no complaints or requests. per staff, shat in the shower this morning. FSBS not under good control 200s-300s. Mental Status Exam Mental Status Exam Narrative: adequately dressed and groomed, cooperative, no PMA/PMR. speech nml rate, amount, loudness, tone, latency. thoughts linear and logical. affect flexible, normo-intense, non-labile. mood fine. denies SI/SIBI/HI/AVH. Diagnostics Vital Signs (24Hr): Vital Signs - 24 hr 08/16/23 20:21 08/17/23 08:10 Temperature 97.4 F 97.1 F Pulse Rate 91 84 Respiratory Rate 16 16 Blood Pressure 146/67 H 135/77 Pulse Oximetry 97 96 Oxygen Delivery Method Room Air Room Air BMI result Body Mass Index 35.5 Labs 08/14/23 03:42 08/14/23 03:42 Labs: Laboratory Results - last 48 hr 08/14/23 08/14/23 08/15/23 03:33 03:41 17:36 POC Glucose 587 H* 541 H* 497 H* 08/16/23 08/16/23 08/16/23 08:21 08:52 12:26 POC Glucose 242 H 241 H 257 H 08/16/23 08/16/23 08/17/23 18:01 21:17 07:31 POC Glucose 396 H* 264 H 259 H 08/17/23 12:22 POC Glucose 153 H Medications Medications Current Medications Acetaminophen (Acetaminophen 325 Mg Tablet) 650 mg PO Q6H PRN PRN Reason: Headache/Pain Mild Scale (1-3) Last Admin: 08/16/23 21:29 Dose: 650 mg Al Hydroxide/Mg Hydroxide (Magnesium Hydrox/Alum Hydrox 30 Ml Oral.Susp) 30 ml PO Q6H PRN PRN Reason: Heartburn/Nausea Amlodipine Besylate (Amlodipine Besylate 5 Mg Tablet) 5 mg PO DAILY [facility]; Protocol Last Admin: 08/17/23 08:51 Dose: 5 mg Aspirin (Aspirin Enteric Coated 81 Mg Tablet.) 81 mg PO DAILY [facility] Last Admin: 08/17/23 08:51 Dose: 81 mg Atorvastatin Calcium (Atorvastatin Calcium 80 Mg Tablet) 80 mg PO DAILY [facility] Last Admin: 08/17/23 08:52 Dose: 80 mg Baclofen (Baclofen 10 Mg Tablet) 10 mg PO TID [facility] Last Admin: 08/17/23 08:52 Dose: 10 mg Donepezil HCl (Donepezil Hcl 5 Mg Tablet) 5 mg PO DAILY [facility] Last Admin: 08/17/23 08:51 Dose: 5 mg Glucose (Glucose Gel 15 Gm Gel..Gram.) 15 gm PO DAILY PRN PRN Reason: hypoglycemia Hydrochlorothiazide (Hydrochlorothiazide 12.5 Mg Tablet) 12.5 mg PO DAILY [facility]; Protocol Last Admin: 08/17/23 08:50 Dose: 12.5 mg Insulin Glargine (Insulin Glargine,Hum.Rec.Anlog 100 Unit/Ml 10 Ml Vial) 30 unit SUBCUT BEDTIME [facility] Last Admin: 08/16/23 21:30 Dose: 30 unit Insulin Human Lispro (Insulin Lispro 100 Unit/Ml 3 Ml Vial) 0 unit SUBCUT TIDAC [facility]; Protocol Last Admin: 08/17/23 12:32 Dose: 2 unit Levofloxacin (Levofloxacin 250 Mg Tablet) 250 mg PO Q24H [facility] Stop: 08/21/23 13:14 Last Admin: 08/17/23 13:37 Dose: 250 mg Loratadine (Loratadine 10 Mg Tablet) 10 mg PO DAILY [facility] Last Admin: 08/17/23 08:52 Dose: 10 mg Magnesium Hydroxide (Milk Of Magnesia 30 Ml Oral.Susp) 30 ml PO DAILY PRN PRN Reason: Constipation Metoprolol Succinate (Metoprolol Succinate Er 25 Mg Tab.Er.24h) 25 mg PO DAILY [facility]; Protocol Last Admin: 08/17/23 08:51 Dose: 25 mg Mirabegron (Mirabegron 25 Mg Tab.Er.24h) 25 mg PO DAILY [facility] Last Admin: 08/17/23 08:50 Dose: 25 mg Multivitamins/Vitamin C (Multivitamin Tablet) 1 tab PO DAILY [facility] Last Admin: 08/17/23 08:51 Dose: 1 tab Nicotine (Nicotine 21 Mg Patch.Td24) 21 mg TRANSDERMA DAILY PRN PRN Reason: smoking cessation Nicotine Polacrilex (Nicotine Polacrilex 2 Mg Gum) 4 mg BUCCAL Q2H PRN PRN Reason: Nicotine Cravings Nystatin (Nystatin Powder 15 Gm Bottle) 1 appl TOPICAL BID [facility]; Protocol Last Admin: 08/17/23 12:32 Dose: 1 appl Olanzapine (Olanzapine 5 Mg Tablet) 5 mg PO TID PRN PRN Reason: agitation Omeprazole (Omeprazole 20 Mg Capsule.Dr) 20 mg PO BID@0630,1630 [facility] Last Admin: 08/17/23 06:11 Dose: 20 mg Quetiapine Fumarate (Quetiapine Fumarate 50 Mg Tablet) 50 mg PO BEDTIME [facility] Last Admin: 08/16/23 21:29 Dose: 50 mg Trazodone HCl (Trazodone Hcl 50 Mg Tablet) 50 mg PO BEDTIME MRX1 PRN PRN Reason: Insomnia Valsartan (Valsartan 80 Mg Tablet) 80 mg PO DAILY [facility]; Protocol Last Admin: 08/17/23 08:52 Dose: 80 mg Allergies Allergies Allergy/AdvReac Type Severity Reaction Status Date / Time Sulfa (Sulfonamide Allergy Severe DIFFICULTY Verified 12/05/22 18:20 Antibiotics) BREATHING [SULFA (SULFONAMIDE ANTIBIOTICS)] cephalexin [From KEFLEX] Allergy Intermediate RASH,HIVES Verified 12/05/22 18:20 amoxicillin [AMOXICILLIN] Allergy Unknown DENIES Verified 12/05/22 18:20 THIS ALLERGY 03/28/2018 penicillin V Allergy Unknown Unknown Verified 12/05/22 18:20 sumatriptan [From IMITREX] AdvReac Severe HEART Verified 12/05/22 18:20 PALPITATIONS topiramate [From TOPAMAX] AdvReac Severe AGITATION Verified 12/05/22 18:20 Assessment & Plan Assessment & Plan (1) Homicidal ideation: Status: Acute Code(s): R45.850 - Homicidal ideations (2) Type 2 diabetes mellitus with unspecified complications: Status: Acute Code(s): E11.8 - Type 2 diabetes mellitus with unspecified complications (3) Dementia: Qualifiers: Dementia behavioral or psychological symptom: with psychotic disturbance Status: Acute Code(s): F03.90 - Unspecified dementia, unspecified severity, without behavioral disturbance, psychotic disturbance, mood disturbance, and anxiety Plan 08/15: continue home medications regimen for now. R/O UTI. get DM under better control. MoCA /, MCI. 08/16: appears to have UTI, gnrs. hospitalist consult for input/Tx. FSBS 200s-400s. continue to try to get glucose under better control. continue home meds regimen for now. 08/17: antibx for UTI. fecal incontinence in shower today, cognitive/memory deficits. may be placement case. continue current mgmt for now. Reason for continued inpatient stay Substantial Risk for: inability to function Time Spent With Patient Time: Total time managing care of this patient today __25__ minutes.
[2023-08-17] MEDS: Acetaminophen 325 MG TABLET 650 MG PO (15:15)
[2023-08-17 16:58] LABS: Glucose, Whole Blood 308 mg/dL (60-115)
[2023-08-17 19:40] VITALS: BP 132/64; PULSE 89; RESP 16; TEMP 36.2; O2SAT 99
[2023-08-17 20:30] LABS: Glucose, Whole Blood 280 mg/dL (60-115)
[2023-08-17] MEDS: Insulin Glargine,Hum.rec.anlog 100 UNIT/ML 10 ML VIAL 30 UNIT SUBCUT (21:27)
[2023-08-17] MEDS: QUEtiapine Fumarate 50 MG TABLET PO (21:28)
[2023-08-18 06:00] VITALS: BP 148/65; PULSE 92; RESP 16; TEMP 36.8; O2SAT 98
[2023-08-18] MEDS: Omeprazole 20 MG CAPSULE.DR PO ×2 (06:48→15:29)
[2023-08-18 08:28] LABS: Glucose, Whole Blood 337 mg/dL (60-115)
[2023-08-18] MEDS: hydroCHLOROthiazide 12.5 MG TABLET PO (08:44)
[2023-08-18] MEDS: amLODIPine Besylate 5 MG TABLET PO (08:44)
[2023-08-18] MEDS: Aspirin Enteric Coated 81 MG TABLET.DR PO (08:44)
[2023-08-18] MEDS: Baclofen 10 MG TABLET PO ×3 (08:44→21:22)
[2023-08-18] MEDS: Mirabegron 25 MG TAB.ER.24H PO (08:44)
[2023-08-18] MEDS: Atorvastatin Calcium 80 MG TABLET PO (08:45)
[2023-08-18] MEDS: Multivitamin TABLET 1 TAB PO (08:45)
[2023-08-18] MEDS: Metoprolol Succinate ER 25 MG TAB.ER.24H PO (08:45)
[2023-08-18] MEDS: Loratadine 10 MG TABLET PO (08:45)
[2023-08-18] MEDS: Donepezil HCl 5 MG TABLET PO (08:46)
[2023-08-18] MEDS: Valsartan 80 MG TABLET PO (08:46)
[2023-08-18] MEDS: Insulin Lispro 100 UNIT/ML 3 ML VIAL SUBCUT ×3 (09:02→18:11)
[2023-08-18] MEDS: Loperamide HCl 2 MG CAPSULE PO (11:24)
[2023-08-18 12:44] LABS: Glucose, Whole Blood 253 mg/dL (60-115)
[2023-08-18] MEDS: levoFLOXacin 250 MG TABLET PO (13:11)
[2023-08-18] MEDS: Lactase TABLET 1 TAB PO ×2 (13:11→18:12)
--- NOTE | 2023-08-18 17:21 | HO.PSYCHPN ---
Subjective Subjective Date of Service: 08/18/23 Reason For Visit: Agitation/HI Interim History: Patient seen and discussed. Having some diarrhea. She reports she is lactose intolerant and avoids foods containing dairy. She denies depression. She lacks insight into the reason for her admission and says she was just cutting bread when her took the knife from her. She reports her daughter has substance use disorder and she worries about her. Otherwise calm, cooperative, pleasant. mood OK. Review of Systems Review of Systems Yes all other systems are reviewed and are negative Mental Status Exam Mental Status Exam Narrative: adequately dressed and groomed, cooperative, no PMA/PMR. speech nml rate, amount, loudness, tone, latency. thoughts linear and logical. affect flexible, normo-intense, non-labile. mood fine. denies SI/SIBI/HI/AVH. Diagnostics Vital Signs (24Hr): Vital Signs - 24 hr 08/17/23 19:40 08/18/23 06:00 Temperature 97.1 F 98.2 F Pulse Rate 89 92 Respiratory Rate 16 16 Blood Pressure 132/64 148/65 H Pulse Oximetry 99 98 Oxygen Delivery Method Room Air Room Air BMI result Body Mass Index 35.5 Labs 08/14/23 03:42 08/14/23 03:42 Labs: Laboratory Results - last 48 hr 08/14/23 08/14/23 08/16/23 03:33 03:41 18:01 POC Glucose 587 H* 541 H* 396 H* 08/16/23 08/17/23 08/17/23 21:17 07:31 12:22 POC Glucose 264 H 259 H 153 H 08/17/23 08/17/23 08/18/23 16:52 20:25 08:23 POC Glucose 308 H 280 H 337 H 08/18/23 12:39 POC Glucose 253 H Medications Medications Current Medications Acetaminophen (Acetaminophen 325 Mg Tablet) 650 mg PO Q6H PRN PRN Reason: Headache/Pain Mild Scale (1-3) Last Admin: 08/17/23 15:15 Dose: 650 mg Al Hydroxide/Mg Hydroxide (Magnesium Hydrox/Alum Hydrox 30 Ml Oral.Susp) 30 ml PO Q6H PRN PRN Reason: Heartburn/Nausea Amlodipine Besylate (Amlodipine Besylate 5 Mg Tablet) 5 mg PO DAILY [facility]; Protocol Last Admin: 08/18/23 08:44 Dose: 5 mg Aspirin (Aspirin Enteric Coated 81 Mg Tablet.Dr) 81 mg PO DAILY [facility] Last Admin: 08/18/23 08:44 Dose: 81 mg Atorvastatin Calcium (Atorvastatin Calcium 80 Mg Tablet) 80 mg PO DAILY [facility] Last Admin: 08/18/23 08:45 Dose: 80 mg Baclofen (Baclofen 10 Mg Tablet) 10 mg PO TID [facility] Last Admin: 08/18/23 15:29 Dose: 10 mg Donepezil HCl (Donepezil Hcl 5 Mg Tablet) 5 mg PO DAILY [facility] Last Admin: 08/18/23 08:46 Dose: 5 mg Fluticasone Propionate (Fluticasone Propionate Nasal 16 Gm [place]) 1 spray NOSTRIL-B BID [facility] Glucose (Glucose Gel 15 Gm Gel..Gram.) 15 gm PO DAILY PRN PRN Reason: hypoglycemia Hydrochlorothiazide (Hydrochlorothiazide 12.5 Mg Tablet) 12.5 mg PO DAILY [facility]; Protocol Last Admin: 08/18/23 08:44 Dose: 12.5 mg Insulin Glargine (Insulin Glargine,Hum.Rec.Anlog 100 Unit/Ml 10 Ml Vial) 30 unit SUBCUT BEDTIME [facility] Last Admin: 08/17/23 21:27 Dose: 30 unit Insulin Human Lispro (Insulin Lispro 100 Unit/Ml 3 Ml Vial) 0 unit SUBCUT TIDAC [facility]; Protocol Last Admin: 08/18/23 13:11 Dose: 6 unit Lactase (Lactase Tablet) 1 tab PO TIDWM [facility] Last Admin: 08/18/23 13:11 Dose: 1 tab Levofloxacin (Levofloxacin 250 Mg Tablet) 250 mg PO Q24H [facility] Stop: 08/21/23 13:14 Last Admin: 08/18/23 13:11 Dose: 250 mg Loperamide HCl (Loperamide Hcl 2 Mg Capsule) 2 mg PO Q4H PRN PRN Reason: Diarrhea Last Admin: 08/18/23 11:24 Dose: 2 mg Loratadine (Loratadine 10 Mg Tablet) 10 mg PO DAILY [facility] Last Admin: 08/18/23 08:45 Dose: 10 mg Magnesium Hydroxide (Milk Of Magnesia 30 Ml Oral.Susp) 30 ml PO DAILY PRN PRN Reason: Constipation Metoprolol Succinate (Metoprolol Succinate Er 25 Mg Tab.Er.24h) 25 mg PO DAILY [facility]; Protocol Last Admin: 08/18/23 08:45 Dose: 25 mg Mirabegron (Mirabegron 25 Mg Tab.Er.24h) 25 mg PO DAILY [facility] Last Admin: 08/18/23 08:44 Dose: 25 mg Multivitamins/Vitamin C (Multivitamin Tablet) 1 tab PO DAILY [facility] Last Admin: 08/18/23 08:45 Dose: 1 tab Nicotine (Nicotine 21 Mg Patch.Td24) 21 mg TRANSDERMA DAILY PRN PRN Reason: smoking cessation Nicotine Polacrilex (Nicotine Polacrilex 2 Mg Gum) 4 mg BUCCAL Q2H PRN PRN Reason: Nicotine Cravings Nystatin (Nystatin Powder 15 Gm Bottle) 1 appl TOPICAL BID [facility]; Protocol Last Admin: 08/18/23 09:41 Dose: Not Given Olanzapine (Olanzapine 5 Mg Tablet) 5 mg PO TID PRN PRN Reason: agitation Omeprazole (Omeprazole 20 Mg Capsule.Dr) 20 mg PO BID@0630,1630 [facility] Last Admin: 08/18/23 15:29 Dose: 20 mg Quetiapine Fumarate (Quetiapine Fumarate 50 Mg Tablet) 50 mg PO BEDTIME [facility] Last Admin: 08/17/23 21:28 Dose: 50 mg Trazodone HCl (Trazodone Hcl 50 Mg Tablet) 50 mg PO BEDTIME MRX1 PRN PRN Reason: Insomnia Valsartan (Valsartan 80 Mg Tablet) 80 mg PO DAILY [facility]; Protocol Last Admin: 08/18/23 08:46 Dose: 80 mg Allergies Allergies Allergy/AdvReac Type Severity Reaction Status Date / Time Sulfa (Sulfonamide Allergy Severe DIFFICULTY Verified 12/05/22 18:20 Antibiotics) BREATHING [SULFA (SULFONAMIDE ANTIBIOTICS)] cephalexin [From KEFLEX] Allergy Intermediate RASH,HIVES Verified 12/05/22 18:20 amoxicillin [AMOXICILLIN] Allergy Unknown DENIES Verified 12/05/22 18:20 THIS ALLERGY 03/28/2018 penicillin V Allergy Unknown Unknown Verified 12/05/22 18:20 sumatriptan [From IMITREX] AdvReac Severe HEART Verified 12/05/22 18:20 PALPITATIONS topiramate [From TOPAMAX] AdvReac Severe AGITATION Verified 12/05/22 18:20 Assessment & Plan Assessment & Plan (1) Homicidal ideation: Status: Acute Code(s): R45.850 - Homicidal ideations (2) Type 2 diabetes mellitus with unspecified complications: Status: Acute Code(s): E11.8 - Type 2 diabetes mellitus with unspecified complications (3) Dementia: Qualifiers: Dementia behavioral or psychological symptom: with psychotic disturbance Status: Acute Code(s): F03.90 - Unspecified dementia, unspecified severity, without behavioral disturbance, psychotic disturbance, mood disturbance, and anxiety Plan 08/15: continue home medications regimen for now. R/O UTI. get DM under better control. MoCA 25/30, MCI. 08/16: appears to have UTI, gnrs. hospitalist consult for input/Tx. FSBS 200s-400s. continue to try to get glucose under better control. continue home meds regimen for now. 08/17: antibx for UTI. fecal incontinence in shower today, cognitive/memory deficits. may be placement case. continue current mgmt for now. 08/18: Start impdium and lactaid. Continue current management and treatment plan. Reason for continued inpatient stay Substantial Risk for: harm to others, inability to function and rapid decompensation Time Spent With Patient Time: Total time managing care of this patient today ____ minutes.
[2023-08-18 18:04] LABS: Glucose, Whole Blood 284 mg/dL (60-115)
[2023-08-18 19:10] VITALS: BP 138/63; PULSE 88; RESP 18; TEMP 36.6; O2SAT 98
[2023-08-18 21:20] LABS: Glucose, Whole Blood 252 mg/dL (60-115)
[2023-08-18] MEDS: Nystatin Powder 15 GM BOTTLE 1 APPL TOPICAL (21:21)
[2023-08-18] MEDS: Acetaminophen 325 MG TABLET 650 MG PO (21:22)
[2023-08-18] MEDS: QUEtiapine Fumarate 50 MG TABLET PO (21:22)
[2023-08-18] MEDS: Insulin Glargine,Hum.rec.anlog 100 UNIT/ML 10 ML VIAL 30 UNIT SUBCUT (21:23)
[2023-08-19 07:59] LABS: Glucose, Whole Blood 205 mg/dL (60-115)
[2023-08-19 08:10] VITALS: BP 122/59; PULSE 67; RESP 18; TEMP 36.2; O2SAT 96
[2023-08-19] MEDS: Metoprolol Succinate ER 25 MG TAB.ER.24H PO (08:17)
[2023-08-19] MEDS: hydroCHLOROthiazide 12.5 MG TABLET PO (08:17)
[2023-08-19] MEDS: Donepezil HCl 5 MG TABLET PO (08:17)
[2023-08-19] MEDS: Baclofen 10 MG TABLET PO ×3 (08:18→22:00)
[2023-08-19] MEDS: Multivitamin TABLET 1 TAB PO (08:18)
[2023-08-19] MEDS: Lactase TABLET 1 TAB PO ×3 (08:18→18:02)
[2023-08-19] MEDS: Aspirin Enteric Coated 81 MG TABLET.DR PO (08:18)
[2023-08-19] MEDS: Valsartan 80 MG TABLET PO (08:19)
[2023-08-19] MEDS: Mirabegron 25 MG TAB.ER.24H PO (08:19)
[2023-08-19] MEDS: amLODIPine Besylate 5 MG TABLET PO (08:19)
[2023-08-19] MEDS: Loratadine 10 MG TABLET PO (08:19)
[2023-08-19] MEDS: Atorvastatin Calcium 80 MG TABLET PO (08:19)
[2023-08-19] MEDS: Omeprazole 20 MG CAPSULE.DR PO ×2 (08:20→15:30)
[2023-08-19] MEDS: Fluticasone Propionate Nasal 16 GM SPRAY 1 SPRAY NOSTRIL-B ×2 (08:20→22:02)
[2023-08-19] MEDS: Insulin Lispro 100 UNIT/ML 3 ML VIAL SUBCUT ×3 (08:59→18:02)
[2023-08-19 12:51] LABS: Glucose, Whole Blood 282 mg/dL (60-115)
[2023-08-19] MEDS: levoFLOXacin 250 MG TABLET PO (13:06)
[2023-08-19 17:42] LABS: Glucose, Whole Blood 260 mg/dL (60-115)
--- NOTE | 2023-08-19 19:36 | P.PNPSI_ITS ---
Subjective Subjective Date of Service: 08/19/23 Reason For Visit: Agitation/HI Interim History: Patient seen and discussed. Remains pleasantly confused and forgetful. She doesn't remember seeing this aligner typewriter jamel. Reports she is feeling well. Diarrhea improved with imodium and lactaid. Mood and affect are constricted. No SI/HI/AVH. BS partially controlled and receives insulin coverage. Otherwise calm, cooperative, pleasant.. Review of Systems Review of Systems Yes all other systems are reviewed and are negative Mental Status Exam Mental Status Exam Narrative: adequately dressed and groomed, cooperative, no PMA/PMR. speech nml rate, amount, loudness, tone, latency. thoughts linear and logical. affect flexible, normo-intense, non-labile. mood fine. denies SI/SIBI/HI/AVH. Diagnostics Vital Signs (24Hr): Vital Signs - 24 hr 08/19/23 08:10 Temperature 97.2 F Pulse Rate 67 Respiratory Rate 18 Blood Pressure 122/59 L Pulse Oximetry 96 Oxygen Delivery Method Room Air BMI result Body Mass Index 35.5 Labs 08/14/23 03:42 08/14/23 03:42 Labs: Laboratory Results - last 48 hr 08/17/23 08/18/23 08/18/23 20:25 08:23 12:39 POC Glucose 280 H 337 H 253 H 08/18/23 08/18/23 08/19/23 17:59 21:16 07:53 POC Glucose 284 H 252 H 205 H 08/19/23 08/19/23 12:45 17:36 POC Glucose 282 H 260 H Medications Medications Current Medications Acetaminophen (Acetaminophen 325 Mg Tablet) 650 mg PO Q6H PRN PRN Reason: Headache/Pain Mild Scale (1-3) Last Admin: 08/18/23 21:22 Dose: 650 mg Al Hydroxide/Mg Hydroxide (Magnesium Hydrox/Alum Hydrox 30 Ml Oral.Susp) 30 ml PO Q6H PRN PRN Reason: Heartburn/Nausea Amlodipine Besylate (Amlodipine Besylate 5 Mg Tablet) 5 mg PO DAILY [facility]; Protocol Last Admin: 08/19/23 08:19 Dose: 5 mg Aspirin (Aspirin Enteric Coated 81 Mg Tablet.) 81 mg PO DAILY [facility] Last Admin: 08/19/23 08:18 Dose: 81 mg Atorvastatin Calcium (Atorvastatin Calcium 80 Mg Tablet) 80 mg PO DAILY [facility] Last Admin: 08/19/23 08:19 Dose: 80 mg Baclofen (Baclofen 10 Mg Tablet) 10 mg PO TID [facility] Last Admin: 08/19/23 15:30 Dose: 10 mg Donepezil HCl (Donepezil Hcl 5 Mg Tablet) 5 mg PO DAILY [facility] Last Admin: 08/19/23 08:17 Dose: 5 mg Fluticasone Propionate (Fluticasone Propionate Nasal 16 Gm [place]) 1 spray NOSTRIL-B BID [facility] Last Admin: 08/19/23 08:20 Dose: 1 spray Glucose (Glucose Gel 15 Gm Gel..Gram.) 15 gm PO DAILY PRN PRN Reason: hypoglycemia Hydrochlorothiazide (Hydrochlorothiazide 12.5 Mg Tablet) 12.5 mg PO DAILY [facility]; Protocol Last Admin: 08/19/23 08:17 Dose: 12.5 mg Insulin Glargine (Insulin Glargine,Hum.Rec.Anlog 100 Unit/Ml 10 Ml Vial) 30 unit SUBCUT BEDTIME [facility] Last Admin: 08/18/23 21:23 Dose: 30 unit Insulin Human Lispro (Insulin Lispro 100 Unit/Ml 3 Ml Vial) 0 unit SUBCUT TIDAC [facility]; Protocol Last Admin: 08/19/23 18:02 Dose: 8 unit Lactase (Lactase Tablet) 1 tab PO TIDWM [facility] Last Admin: 08/19/23 18:02 Dose: 1 tab Levofloxacin (Levofloxacin 250 Mg Tablet) 250 mg PO Q24H [facility] Stop: 08/21/23 13:14 Last Admin: 08/19/23 13:06 Dose: 250 mg Loperamide HCl (Loperamide Hcl 2 Mg Capsule) 2 mg PO Q4H PRN PRN Reason: Diarrhea Last Admin: 08/18/23 11:24 Dose: 2 mg Loratadine (Loratadine 10 Mg Tablet) 10 mg PO DAILY [facility] Last Admin: 08/19/23 08:19 Dose: 10 mg Magnesium Hydroxide (Milk Of Magnesia 30 Ml Oral.Susp) 30 ml PO DAILY PRN PRN Reason: Constipation Metoprolol Succinate (Metoprolol Succinate Er 25 Mg Tab.Er.24h) 25 mg PO DAILY [facility]; Protocol Last Admin: 08/19/23 08:17 Dose: 25 mg Mirabegron (Mirabegron 25 Mg Tab.Er.24h) 25 mg PO DAILY [facility] Last Admin: 08/19/23 08:19 Dose: 25 mg Multivitamins/Vitamin C (Multivitamin Tablet) 1 tab PO DAILY [facility] Last Admin: 08/19/23 08:18 Dose: 1 tab Nicotine (Nicotine 21 Mg Patch.Td24) 21 mg TRANSDERMA DAILY PRN PRN Reason: smoking cessation Nicotine Polacrilex (Nicotine Polacrilex 2 Mg Gum) 4 mg BUCCAL Q2H PRN PRN Reason: Nicotine Cravings Nystatin (Nystatin Powder 15 Gm Bottle) 1 appl TOPICAL BID [facility]; Protocol Last Admin: 08/19/23 08:46 Dose: Not Given Olanzapine (Olanzapine 5 Mg Tablet) 5 mg PO TID PRN PRN Reason: agitation Omeprazole (Omeprazole 20 Mg Capsule.Dr) 20 mg PO BID@0630,1630 [facility] Last Admin: 08/19/23 15:30 Dose: 20 mg Quetiapine Fumarate (Quetiapine Fumarate 50 Mg Tablet) 50 mg PO BEDTIME [facility] Last Admin: 08/18/23 21:22 Dose: 50 mg Trazodone HCl (Trazodone Hcl 50 Mg Tablet) 50 mg PO BEDTIME MRX1 PRN PRN Reason: Insomnia Valsartan (Valsartan 80 Mg Tablet) 80 mg PO DAILY [facility]; Protocol Last Admin: 08/19/23 08:19 Dose: 80 mg Allergies Allergies Allergy/AdvReac Type Severity Reaction Status Date / Time Sulfa (Sulfonamide Allergy Severe DIFFICULTY Verified 12/05/22 18:20 Antibiotics) BREATHING [SULFA (SULFONAMIDE ANTIBIOTICS)] cephalexin [From KEFLEX] Allergy Intermediate RASH,HIVES Verified 12/05/22 18:20 amoxicillin [AMOXICILLIN] Allergy Unknown DENIES Verified 12/05/22 18:20 THIS ALLERGY 03/28/2018 penicillin V Allergy Unknown Unknown Verified 12/05/22 18:20 sumatriptan [From IMITREX] AdvReac Severe HEART Verified 12/05/22 18:20 PALPITATIONS topiramate [From TOPAMAX] AdvReac Severe AGITATION Verified 12/05/22 18:20 Assessment & Plan Assessment & Plan (1) Homicidal ideation: Status: Acute Code(s): R45.850 - Homicidal ideations (2) Type 2 diabetes mellitus with unspecified complications: Status: Acute Code(s): E11.8 - Type 2 diabetes mellitus with unspecified complications (3) Dementia: Qualifiers: Dementia behavioral or psychological symptom: with psychotic disturbance Status: Acute Code(s): F03.90 - Unspecified dementia, unspecified severity, without behavioral disturbance, psychotic disturbance, mood disturbance, and anxiety Plan 08/15: continue home medications regimen for now. R/O UTI. get DM under better control. MoCA 25/30, MCI. 08/16: appears to have UTI, gnrs. hospitalist consult for input/Tx. FSBS 200s-400s. continue to try to get glucose under better control. continue home meds regimen for now. 08/17: antibx for UTI. fecal incontinence in shower today, cognitive/memory deficits. may be placement case. continue current mgmt for now. 08/18: Start impdium and lactaid. Continue current management and treatment plan. 08/19: Continue current management and treatment plan. Reason for continued inpatient stay Substantial Risk for: inability to function, rapid decompensation and med/psych decompensation Time Spent With Patient Time: Total time managing care of this patient today ____ minutes.
[2023-08-19 19:58] VITALS: BP 153/63; PULSE 79; RESP 18; TEMP 36.2; O2SAT 97
[2023-08-19] MEDS: QUEtiapine Fumarate 50 MG TABLET PO (22:00)
[2023-08-19 22:13] LABS: Glucose, Whole Blood 211 mg/dL (60-115)
[2023-08-19] MEDS: Insulin Glargine,Hum.rec.anlog 100 UNIT/ML 10 ML VIAL 30 UNIT SUBCUT (22:16)
[2023-08-19] MEDS: Acetaminophen 325 MG TABLET 650 MG PO (22:16)
[2023-08-20 07:15] VITALS: BP 127/63; PULSE 77; RESP 18; TEMP 36.2; O2SAT 94
[2023-08-20 08:09] LABS: Glucose, Whole Blood 234 mg/dL (60-115)
[2023-08-20] MEDS: Insulin Lispro 100 UNIT/ML 3 ML VIAL SUBCUT ×3 (08:32→16:55)
[2023-08-20] MEDS: Multivitamin TABLET 1 TAB PO (08:33)
[2023-08-20] MEDS: Donepezil HCl 5 MG TABLET PO (08:33)
[2023-08-20] MEDS: Mirabegron 25 MG TAB.ER.24H PO (08:33)
[2023-08-20] MEDS: Atorvastatin Calcium 80 MG TABLET PO (08:33)
[2023-08-20] MEDS: Metoprolol Succinate ER 25 MG TAB.ER.24H PO (08:34)
[2023-08-20] MEDS: Valsartan 80 MG TABLET PO (08:34)
[2023-08-20] MEDS: Aspirin Enteric Coated 81 MG TABLET.DR PO (08:34)
[2023-08-20] MEDS: hydroCHLOROthiazide 12.5 MG TABLET PO (08:34)
[2023-08-20] MEDS: Omeprazole 20 MG CAPSULE.DR PO ×2 (08:34→16:56)
[2023-08-20] MEDS: Baclofen 10 MG TABLET PO ×3 (08:35→21:34)
[2023-08-20] MEDS: Loratadine 10 MG TABLET PO (08:35)
[2023-08-20] MEDS: Lactase TABLET 1 TAB PO ×3 (08:35→16:56)
[2023-08-20] MEDS: amLODIPine Besylate 5 MG TABLET PO (08:35)
[2023-08-20] MEDS: Fluticasone Propionate Nasal 16 GM SPRAY 1 SPRAY NOSTRIL-B ×2 (08:35→21:35)
[2023-08-20 12:10] LABS: Glucose, Whole Blood 179 mg/dL (60-115)
[2023-08-20] MEDS: levoFLOXacin 250 MG TABLET PO (12:14)
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
[2023-08-20 16:53] LABS: Glucose, Whole Blood 253 mg/dL (60-115)
[2023-08-20 19:09] VITALS: BP 104/64; PULSE 85; RESP 18; TEMP 36.1; O2SAT 95
[2023-08-20] MEDS: QUEtiapine Fumarate 50 MG TABLET PO (21:34)
[2023-08-20 21:44] LABS: Glucose, Whole Blood 261 mg/dL (60-115)
[2023-08-20] MEDS: Acetaminophen 325 MG TABLET 650 MG PO (21:47)
[2023-08-20] MEDS: Insulin Glargine,Hum.rec.anlog 100 UNIT/ML 10 ML VIAL 30 UNIT SUBCUT (21:49)
[2023-08-21 06:00] VITALS: BP 124/69; PULSE 78; RESP 16; TEMP 36.2; O2SAT 99
[2023-08-21] MEDS: Omeprazole 20 MG CAPSULE.DR PO ×2 (06:33→16:22)
[2023-08-21 08:34] LABS: Glucose, Whole Blood 198 mg/dL (60-115)
[2023-08-21] MEDS: Insulin Lispro 100 UNIT/ML 3 ML VIAL SUBCUT ×3 (08:46→17:30)
[2023-08-21] MEDS: Loratadine 10 MG TABLET PO (08:47)
[2023-08-21] MEDS: Mirabegron 25 MG TAB.ER.24H PO (08:47)
[2023-08-21] MEDS: Donepezil HCl 5 MG TABLET PO (08:47)
[2023-08-21] MEDS: Aspirin Enteric Coated 81 MG TABLET.DR PO (08:47)
[2023-08-21] MEDS: Multivitamin TABLET 1 TAB PO (08:48)
[2023-08-21] MEDS: hydroCHLOROthiazide 12.5 MG TABLET PO (08:48)
[2023-08-21] MEDS: Lactase TABLET 1 TAB PO ×3 (08:48→17:30)
[2023-08-21] MEDS: Atorvastatin Calcium 80 MG TABLET PO (08:48)
[2023-08-21] MEDS: Metoprolol Succinate ER 25 MG TAB.ER.24H PO (08:49)
[2023-08-21] MEDS: Baclofen 10 MG TABLET PO ×3 (08:49→21:36)
[2023-08-21] MEDS: Valsartan 80 MG TABLET PO (08:49)
[2023-08-21] MEDS: amLODIPine Besylate 5 MG TABLET PO (08:49)
[2023-08-21] MEDS: Fluticasone Propionate Nasal 16 GM SPRAY 1 SPRAY NOSTRIL-B (08:50)
[2023-08-21] MEDS: Nystatin Powder 15 GM BOTTLE 1 APPL TOPICAL (09:33)
[2023-08-21 12:17] LABS: Glucose, Whole Blood 260 mg/dL (60-115)
[2023-08-21] MEDS: Acetaminophen 325 MG TABLET 650 MG PO (13:35)
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
[2023-08-21 17:17] LABS: Glucose, Whole Blood 219 mg/dL (60-115)
[2023-08-21 19:50] VITALS: BP 125/71; PULSE 81; RESP 18; TEMP 36.3; O2SAT 99
[2023-08-21 20:56] LABS: Glucose, Whole Blood 235 mg/dL (60-115)
[2023-08-21] MEDS: Insulin Glargine,Hum.rec.anlog 100 UNIT/ML 10 ML VIAL 30 UNIT SUBCUT (21:35)
[2023-08-21] MEDS: QUEtiapine Fumarate 50 MG TABLET PO (21:36)
[2023-08-22] MEDS: Omeprazole 20 MG CAPSULE.DR PO ×2 (06:19→17:09)
[2023-08-22 07:54] LABS: Glucose, Whole Blood 171 mg/dL (60-115)
[2023-08-22] MEDS: Multivitamin TABLET 1 TAB PO (08:29)
[2023-08-22] MEDS: Aspirin Enteric Coated 81 MG TABLET.DR PO (08:29)
[2023-08-22] MEDS: Donepezil HCl 5 MG TABLET PO (08:29)
[2023-08-22] MEDS: Baclofen 10 MG TABLET PO ×2 (08:30→20:28)
[2023-08-22] MEDS: Valsartan 80 MG TABLET PO (08:30)
[2023-08-22] MEDS: Mirabegron 25 MG TAB.ER.24H PO (08:30)
[2023-08-22] MEDS: Metoprolol Succinate ER 25 MG TAB.ER.24H PO (08:30)
[2023-08-22] MEDS: hydroCHLOROthiazide 12.5 MG TABLET PO (08:30)
[2023-08-22 08:31] VITALS: BP 126/60; PULSE 79; RESP 18; TEMP 36.1; O2SAT 100
[2023-08-22] MEDS: Loratadine 10 MG TABLET PO (08:31)
[2023-08-22] MEDS: Atorvastatin Calcium 80 MG TABLET PO (08:31)
[2023-08-22] MEDS: amLODIPine Besylate 5 MG TABLET PO (08:31)
[2023-08-22] MEDS: Lactase TABLET 1 TAB PO ×3 (08:31→17:08)
[2023-08-22] MEDS: Insulin Lispro 100 UNIT/ML 3 ML VIAL SUBCUT ×3 (08:35→17:14)
[2023-08-22] MEDS: Nystatin Powder 15 GM BOTTLE 1 APPL TOPICAL (08:38)
[2023-08-22] MEDS: Fluticasone Propionate Nasal 16 GM SPRAY 1 SPRAY NOSTRIL-B (08:38)
[2023-08-22 12:03] LABS: Glucose, Whole Blood 257 mg/dL (60-115)
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
[2023-08-22 17:15] LABS: Glucose, Whole Blood 154 mg/dL (60-115)
[2023-08-22 20:00] VITALS: RESP 18
[2023-08-22] MEDS: QUEtiapine Fumarate 50 MG TABLET PO (20:28)
[2023-08-22] MEDS: Insulin Glargine,Hum.rec.anlog 100 UNIT/ML 10 ML VIAL 30 UNIT SUBCUT (20:28)
[2023-08-22 20:51] LABS: Glucose, Whole Blood 217 mg/dL (60-115)
[2023-08-23] MEDS: Omeprazole 20 MG CAPSULE.DR PO ×2 (06:07→16:00)
[2023-08-23 07:00] VITALS: BMI 35.4
[2023-08-23 08:50] VITALS: BP 123/57; PULSE 76; RESP 18; TEMP 36.3; O2SAT 97
[2023-08-23 09:01] LABS: Glucose, Whole Blood 182 mg/dL (60-115)
[2023-08-23] MEDS: Insulin Lispro 100 UNIT/ML 3 ML VIAL SUBCUT ×2 (09:04→17:27)
[2023-08-23] MEDS: hydroCHLOROthiazide 12.5 MG TABLET PO (09:05)
[2023-08-23] MEDS: Mirabegron 25 MG TAB.ER.24H PO (09:05)
[2023-08-23] MEDS: Lactase TABLET 1 TAB PO ×3 (09:05→16:01)
[2023-08-23] MEDS: Donepezil HCl 5 MG TABLET PO (09:06)
[2023-08-23] MEDS: Metoprolol Succinate ER 25 MG TAB.ER.24H PO (09:06)
[2023-08-23] MEDS: amLODIPine Besylate 5 MG TABLET PO (09:06)
[2023-08-23] MEDS: Multivitamin TABLET 1 TAB PO (09:06)
[2023-08-23] MEDS: Aspirin Enteric Coated 81 MG TABLET.DR PO (09:06)
[2023-08-23] MEDS: Baclofen 10 MG TABLET PO ×3 (09:07→21:36)
[2023-08-23] MEDS: Loratadine 10 MG TABLET PO (09:07)
[2023-08-23] MEDS: Atorvastatin Calcium 80 MG TABLET PO (09:07)
[2023-08-23] MEDS: Fluticasone Propionate Nasal 16 GM SPRAY 1 SPRAY NOSTRIL-B (09:07)
[2023-08-23] MEDS: Valsartan 80 MG TABLET PO (09:07)
[2023-08-23 13:04] LABS: Glucose, Whole Blood 135 mg/dL (60-115)
[2023-08-23 17:19] LABS: Glucose, Whole Blood 246 mg/dL (60-115)
--- NOTE | 2023-08-23 17:30 | P.PNPSI_ITS ---
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 reports she is sleeping, eating, toileting, getting along with others well. asking to go home, no other requests. per staff, some lability/tearfulness. Mental Status Exam Mental Status Exam Narrative: adequately dressed and groomed, cooperative, no PMA/PMR. speech nml rate, amount, loudness, tone, latency. thoughts linear and illogical, confabulatory. affect constricted, normo-intense, min-labile. mood not assessed. no SI/SIBI/HI/AVH expressed. Diagnostics Vital Signs (24Hr): Vital Signs - 24 hr 08/22/23 20:00 08/23/23 08:50 Temperature 97.3 F Pulse Rate 76 Respiratory Rate 18 18 Blood Pressure 123/57 L Pulse Oximetry 97 Oxygen Delivery Method Room Air BMI result Body Mass Index 35.4 Labs 08/14/23 03:42 08/14/23 03:42 Labs: Laboratory Results - last 48 hr 08/21/23 08/22/23 08/22/23 20:52 07:49 11:59 POC Glucose 235 H 171 H 257 H 08/22/23 08/22/23 08/23/23 17:04 20:42 08:56 POC Glucose 154 H 217 H 182 H 08/23/23 08/23/23 13:00 17:15 POC Glucose 135 H 246 H Medications Medications Current Medications Acetaminophen (Acetaminophen 325 Mg Tablet) 650 mg PO Q6H PRN PRN Reason: Headache/Pain Mild Scale (1-3) Last Admin: 08/21/23 13:35 Dose: 650 mg Al Hydroxide/Mg Hydroxide (Magnesium Hydrox/Alum Hydrox 30 Ml Oral.Susp) 30 ml PO Q6H PRN PRN Reason: Heartburn/Nausea Amlodipine Besylate (Amlodipine Besylate 5 Mg Tablet) 5 mg PO DAILY [facility]; Protocol Last Admin: 08/23/23 09:06 Dose: 5 mg Aspirin (Aspirin Enteric Coated 81 Mg Tablet.) 81 mg PO DAILY [facility] Last Admin: 08/23/23 09:06 Dose: 81 mg Atorvastatin Calcium (Atorvastatin Calcium 80 Mg Tablet) 80 mg PO DAILY [facility] Last Admin: 08/23/23 09:07 Dose: 80 mg Baclofen (Baclofen 10 Mg Tablet) 10 mg PO TID [facility] Last Admin: 08/23/23 16:00 Dose: 10 mg Donepezil HCl (Donepezil Hcl 5 Mg Tablet) 5 mg PO DAILY [facility] Last Admin: 08/23/23 09:06 Dose: 5 mg Fluticasone Propionate (Fluticasone Propionate Nasal 16 Gm [place]) 1 spray NOSTRIL-B BID [facility] Last Admin: 08/23/23 09:07 Dose: 1 spray Glucose (Glucose Gel 15 Gm Gel..Gram.) 15 gm PO DAILY PRN PRN Reason: hypoglycemia Hydrochlorothiazide (Hydrochlorothiazide 12.5 Mg Tablet) 12.5 mg PO DAILY [facility]; Protocol Last Admin: 08/23/23 09:05 Dose: 12.5 mg Insulin Glargine (Insulin Glargine,Hum.Rec.Anlog 100 Unit/Ml 10 Ml Vial) 30 unit SUBCUT BEDTIME [facility] Last Admin: 08/22/23 20:28 Dose: 30 unit Insulin Human Lispro (Insulin Lispro 100 Unit/Ml 3 Ml Vial) 0 unit SUBCUT TIDAC [facility]; Protocol Last Admin: 08/23/23 17:27 Dose: 6 unit Lactase (Lactase Tablet) 1 tab PO TIDWM [facility] Last Admin: 08/23/23 16:01 Dose: 1 tab Loperamide HCl (Loperamide Hcl 2 Mg Capsule) 2 mg PO Q4H PRN PRN Reason: Diarrhea Last Admin: 08/18/23 11:24 Dose: 2 mg Loratadine (Loratadine 10 Mg Tablet) 10 mg PO DAILY [facility] Last Admin: 08/23/23 09:07 Dose: 10 mg Magnesium Hydroxide (Milk Of Magnesia 30 Ml Oral.Susp) 30 ml PO DAILY PRN PRN Reason: Constipation Metoprolol Succinate (Metoprolol Succinate Er 25 Mg Tab.Er.24h) 25 mg PO DAILY [facility]; Protocol Last Admin: 08/23/23 09:06 Dose: 25 mg Mirabegron (Mirabegron 25 Mg Tab.Er.24h) 25 mg PO DAILY [facility] Last Admin: 08/23/23 09:05 Dose: 25 mg Multivitamins/Vitamin C (Multivitamin Tablet) 1 tab PO DAILY [facility] Last Admin: 08/23/23 09:06 Dose: 1 tab Nicotine (Nicotine 21 Mg Patch.Td24) 21 mg TRANSDERMA DAILY PRN PRN Reason: smoking cessation Nicotine Polacrilex (Nicotine Polacrilex 2 Mg Gum) 4 mg BUCCAL Q2H PRN PRN Reason: Nicotine Cravings Nystatin (Nystatin Powder 15 Gm Bottle) 1 appl TOPICAL BID [facility]; Protocol Last Admin: 08/23/23 09:12 Dose: Not Given Olanzapine (Olanzapine 5 Mg Tablet) 5 mg PO TID PRN PRN Reason: agitation Omeprazole (Omeprazole 20 Mg Capsule.Dr) 20 mg PO BID@0630,1630 [facility] Last Admin: 08/23/23 16:00 Dose: 20 mg Quetiapine Fumarate (Quetiapine Fumarate 50 Mg Tablet) 50 mg PO BEDTIME [facility] Last Admin: 08/22/23 20:28 Dose: 50 mg Trazodone HCl (Trazodone Hcl 50 Mg Tablet) 50 mg PO BEDTIME MRX1 PRN PRN Reason: Insomnia Valsartan (Valsartan 80 Mg Tablet) 80 mg PO DAILY [facility]; Protocol Last Admin: 08/23/23 09:07 Dose: 80 mg Allergies Allergies Allergy/AdvReac Type Severity Reaction Status Date / Time Sulfa (Sulfonamide Allergy Severe DIFFICULTY Verified 12/05/22 18:20 Antibiotics) BREATHING [SULFA (SULFONAMIDE ANTIBIOTICS)] cephalexin [From KEFLEX] Allergy Intermediate RASH,HIVES Verified 12/05/22 18:20 amoxicillin [AMOXICILLIN] Allergy Unknown DENIES Verified 12/05/22 18:20 THIS ALLERGY 03/28/2018 penicillin V Allergy Unknown Unknown Verified 12/05/22 18:20 sumatriptan [From IMITREX] AdvReac Severe HEART Verified 12/05/22 18:20 PALPITATIONS topiramate [From TOPAMAX] AdvReac Severe AGITATION Verified 12/05/22 18:20 Assessment & Plan Assessment & Plan (1) Homicidal ideation: Status: Acute Code(s): R45.850 - Homicidal ideations (2) Type 2 diabetes mellitus with unspecified complications: Status: Acute Code(s): E11.8 - Type 2 diabetes mellitus with unspecified complications (3) Dementia: Qualifiers: Dementia behavioral or psychological symptom: with psychotic disturbance Status: Acute Code(s): F03.90 - Unspecified dementia, unspecified severity, without behavioral disturbance, psychotic disturbance, mood disturbance, and anxiety Plan 08/15: continue home medications regimen for now. R/O UTI. get DM under better control. MoCA 25/30, MCI. 08/16: appears to have UTI, gnrs. hospitalist consult for input/Tx. FSBS 200s-400s. continue to try to get glucose under better control. continue home meds regimen for now. 08/17: antibx for UTI. fecal incontinence in shower today, cognitive/memory deficits. may be placement case. continue current mgmt for now. 08/18: Start impdium and lactaid. Continue current management and treatment plan. 08/19: Continue current management and treatment plan. 08/20: ACLS completed by leon OT: scored 4.2, moderate impairment, 4-12 yo cognition, should not drive. continue current mgmt for now. remains focussed on her belief in her 's sexual encounter with her daughter. 08/21: irritable/angry edge today on being told she will not discharge until . incontinent last night. no insight into dementia, declining mental health referrals. continue current mgmt with plan to discharge home on , with collaboration of pt's . 08/22: appears worse than yesterday, insisting she will leave, standing by door with her things, becoming agitated and yelling when challenged. discharge canceled for safety concerns. continue current mgmt. may need to revoke CV and pursue commitment and/or guardianship. 08/23: more congenial today, less labile. 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 Reason for continued inpatient stay Substantial Risk for: harm to others and inability to function Time Spent With Patient Time: Total time managing care of this patient today _25___ minutes.
[2023-08-23 19:52] LABS: Glucose, Whole Blood 194 mg/dL (60-115)
[2023-08-23 20:35] VITALS: BP 140/72; PULSE 79; RESP 16; TEMP 36.1; O2SAT 99
[2023-08-23] MEDS: Insulin Glargine,Hum.rec.anlog 100 UNIT/ML 10 ML VIAL 30 UNIT SUBCUT (21:35)
[2023-08-23] MEDS: QUEtiapine Fumarate 50 MG TABLET PO (21:36)
[2023-08-24 06:00] VITALS: BP 113/58; PULSE 85; RESP 16; TEMP 36.1; O2SAT 97
[2023-08-24] MEDS: Omeprazole 20 MG CAPSULE.DR PO ×2 (06:49→18:25)
[2023-08-24 07:57] LABS: Glucose, Whole Blood 152 mg/dL (60-115)
[2023-08-24] MEDS: Insulin Lispro 100 UNIT/ML 3 ML VIAL SUBCUT ×3 (08:26→18:26)
[2023-08-24] MEDS: Fluticasone Propionate Nasal 16 GM SPRAY 1 SPRAY NOSTRIL-B ×2 (08:27→21:42)
[2023-08-24] MEDS: Mirabegron 25 MG TAB.ER.24H PO (08:28)
[2023-08-24] MEDS: Loratadine 10 MG TABLET PO (08:28)
[2023-08-24] MEDS: Valsartan 80 MG TABLET PO (08:28)
[2023-08-24] MEDS: Metoprolol Succinate ER 25 MG TAB.ER.24H PO (08:28)
[2023-08-24] MEDS: Multivitamin TABLET 1 TAB PO (08:29)
[2023-08-24] MEDS: Aspirin Enteric Coated 81 MG TABLET.DR PO (08:29)
[2023-08-24] MEDS: Donepezil HCl 5 MG TABLET PO (08:29)
[2023-08-24] MEDS: Atorvastatin Calcium 80 MG TABLET PO (08:29)
[2023-08-24] MEDS: amLODIPine Besylate 5 MG TABLET PO (08:29)
[2023-08-24] MEDS: hydroCHLOROthiazide 12.5 MG TABLET PO (08:29)
[2023-08-24] MEDS: Baclofen 10 MG TABLET PO ×3 (08:29→21:41)
[2023-08-24] MEDS: Lactase TABLET 1 TAB PO ×3 (08:29→18:25)
[2023-08-24 12:48] LABS: Glucose, Whole Blood 180 mg/dL (60-115)
--- NOTE | 2023-08-24 13:30 | P.PNPSI_ITS ---
Subjective Subjective Date of Service: 08/24/23 Reason For Visit: Agitation/HI Interim History: calm, cooperative. expressing desire to go home. mood fine. discuss 3-day notice process, she is unable to articulate any other possible outcome than that she would discharge within three days. still declines to enter such a notice because she insists on leaving today. educated re all aspects of 3-day notice, unable to recall them after 2 minutes. denies mental illness, acknowledges dementia Dx. per staff, no issues or concerns. guarded, visible. taking medications. slept about 8 hours. no behavioral issues. Mental Status Exam Mental Status Exam Narrative: adequately dressed and groomed, cooperative, no PMA/PMR. speech nml rate, amount, loudness, tone, latency. thoughts linear and illogical. affect constricted, normo-intense, min-labile. mood fine. no SI/SIBI/HI/AVH expressed. Diagnostics Vital Signs (24Hr): Vital Signs - 24 hr 08/23/23 20:35 08/24/23 06:00 Temperature 97 F 97 F Pulse Rate 79 85 Respiratory Rate 16 16 Blood Pressure 140/72 H 113/58 L Pulse Oximetry 99 97 Oxygen Delivery Method Room Air Room Air BMI result Body Mass Index 35.4 Labs 08/14/23 03:42 08/14/23 03:42 Labs: Laboratory Results - last 48 hr 08/22/23 08/22/23 08/23/23 17:04 20:42 08:56 POC Glucose 154 H 217 H 182 H 08/23/23 08/23/23 08/23/23 13:00 17:15 19:48 POC Glucose 135 H 246 H 194 H 08/24/23 08/24/23 07:52 12:43 POC Glucose 152 H 180 H Medications Medications Current Medications Acetaminophen (Acetaminophen 325 Mg Tablet) 650 mg PO Q6H PRN PRN Reason: Headache/Pain Mild Scale (1-3) Last Admin: 08/21/23 13:35 Dose: 650 mg Al Hydroxide/Mg Hydroxide (Magnesium Hydrox/Alum Hydrox 30 Ml Oral.Susp) 30 ml PO Q6H PRN PRN Reason: Heartburn/Nausea Amlodipine Besylate (Amlodipine Besylate 5 Mg Tablet) 5 mg PO DAILY [facility]; Protocol Last Admin: 08/24/23 08:29 Dose: 5 mg Aspirin (Aspirin Enteric Coated 81 Mg Tablet.) 81 mg PO DAILY [facility] Last Admin: 08/24/23 08:29 Dose: 81 mg Atorvastatin Calcium (Atorvastatin Calcium 80 Mg Tablet) 80 mg PO DAILY [facility] Last Admin: 08/24/23 08:29 Dose: 80 mg Baclofen (Baclofen 10 Mg Tablet) 10 mg PO TID [facility] Last Admin: 08/24/23 08:29 Dose: 10 mg Donepezil HCl (Donepezil Hcl 5 Mg Tablet) 5 mg PO DAILY [facility] Last Admin: 08/24/23 08:29 Dose: 5 mg Fluticasone Propionate (Fluticasone Propionate Nasal 16 Gm [place]) 1 spray NOSTRIL-B BID [facility] Last Admin: 08/24/23 08:27 Dose: 1 spray Glucose (Glucose Gel 15 Gm Gel..Gram.) 15 gm PO DAILY PRN PRN Reason: hypoglycemia Hydrochlorothiazide (Hydrochlorothiazide 12.5 Mg Tablet) 12.5 mg PO DAILY [facility]; Protocol Last Admin: 08/24/23 08:29 Dose: 12.5 mg Insulin Glargine (Insulin Glargine,Hum.Rec.Anlog 100 Unit/Ml 10 Ml Vial) 30 unit SUBCUT BEDTIME [facility] Last Admin: 08/23/23 21:35 Dose: 30 unit Insulin Human Lispro (Insulin Lispro 100 Unit/Ml 3 Ml Vial) 0 unit SUBCUT TIDAC [facility]; Protocol Last Admin: 08/24/23 12:53 Dose: 4 unit Lactase (Lactase Tablet) 1 tab PO TIDWM [facility] Last Admin: 08/24/23 12:54 Dose: 1 tab Loperamide HCl (Loperamide Hcl 2 Mg Capsule) 2 mg PO Q4H PRN PRN Reason: Diarrhea Last Admin: 08/18/23 11:24 Dose: 2 mg Loratadine (Loratadine 10 Mg Tablet) 10 mg PO DAILY [facility] Last Admin: 08/24/23 08:28 Dose: 10 mg Magnesium Hydroxide (Milk Of Magnesia 30 Ml Oral.Susp) 30 ml PO DAILY PRN PRN Reason: Constipation Metoprolol Succinate (Metoprolol Succinate Er 25 Mg Tab.Er.24h) 25 mg PO DAILY [facility]; Protocol Last Admin: 08/24/23 08:28 Dose: 25 mg Mirabegron (Mirabegron 25 Mg Tab.Er.24h) 25 mg PO DAILY [facility] Last Admin: 08/24/23 08:28 Dose: 25 mg Multivitamins/Vitamin C (Multivitamin Tablet) 1 tab PO DAILY [facility] Last Admin: 08/24/23 08:29 Dose: 1 tab Nicotine (Nicotine 21 Mg Patch.Td24) 21 mg TRANSDERMA DAILY PRN PRN Reason: smoking cessation Nicotine Polacrilex (Nicotine Polacrilex 2 Mg Gum) 4 mg BUCCAL Q2H PRN PRN Reason: Nicotine Cravings Nystatin (Nystatin Powder 15 Gm Bottle) 1 appl TOPICAL BID [facility]; Protocol Last Admin: 08/24/23 08:29 Dose: Not Given Olanzapine (Olanzapine 5 Mg Tablet) 5 mg PO TID PRN PRN Reason: agitation Omeprazole (Omeprazole 20 Mg Capsule.Dr) 20 mg PO BID@0630,1630 [facility] Last Admin: 08/24/23 06:49 Dose: 20 mg Quetiapine Fumarate (Quetiapine Fumarate 50 Mg Tablet) 50 mg PO BEDTIME [facility] Last Admin: 08/23/23 21:36 Dose: 50 mg Trazodone HCl (Trazodone Hcl 50 Mg Tablet) 50 mg PO BEDTIME MRX1 PRN PRN Reason: Insomnia Valsartan (Valsartan 80 Mg Tablet) 80 mg PO DAILY [facility]; Protocol Last Admin: 08/24/23 08:28 Dose: 80 mg Allergies Allergies Allergy/AdvReac Type Severity Reaction Status Date / Time Sulfa (Sulfonamide Allergy Severe DIFFICULTY Verified 12/05/22 18:20 Antibiotics) BREATHING [SULFA (SULFONAMIDE ANTIBIOTICS)] cephalexin [From KEFLEX] Allergy Intermediate RASH,HIVES Verified 12/05/22 18:20 amoxicillin [AMOXICILLIN] Allergy Unknown DENIES Verified 12/05/22 18:20 THIS ALLERGY 03/28/2018 penicillin V Allergy Unknown Unknown Verified 12/05/22 18:20 sumatriptan [From IMITREX] AdvReac Severe HEART Verified 12/05/22 18:20 PALPITATIONS topiramate [From TOPAMAX] AdvReac Severe AGITATION Verified 12/05/22 18:20 Assessment & Plan Assessment & Plan (1) Homicidal ideation: Status: Acute Code(s): R45.850 - Homicidal ideations (2) Type 2 diabetes mellitus with unspecified complications: Status: Acute Code(s): E11.8 - Type 2 diabetes mellitus with unspecified complications (3) Dementia: Qualifiers: Dementia behavioral or psychological symptom: with psychotic disturbance Status: Acute Code(s): F03.90 - Unspecified dementia, unspecified severity, without behavioral disturbance, psychotic disturbance, mood disturbance, and anxiety Plan 08/15: continue home medications regimen for now. R/O UTI. get DM under better control. MoCA 25/30, MCI. 08/16: appears to have UTI, gnrs. hospitalist consult for input/Tx. FSBS 200s-400s. continue to try to get glucose under better control. continue home meds regimen for now. 08/17: antibx for UTI. fecal incontinence in shower today, cognitive/memory deficits. may be placement case. continue current mgmt for now. 08/18: Start impdium and lactaid. Continue current management and treatment plan. 08/19: Continue current management and treatment plan. 08/20: ACLS completed by leon OT: scored 4.2, moderate impairment, 4-12 yo cognition, should not drive. continue current mgmt for now. remains focussed on her belief in her 's sexual encounter with her daughter. 08/21: irritable/angry edge today on being told she will not discharge until . incontinent last night. no insight into dementia, declining mental health referrals. continue current mgmt with plan to discharge home on , with collaboration of pt's . 08/22: appears worse than yesterday, insisting she will leave, standing by door with her things, becoming agitated and yelling when challenged. discharge canceled for safety concerns. continue current mgmt. may need to revoke CV and pursue commitment and/or guardianship. 08/23: more congenial today, less labile. 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 08/24: planning to invoke HCP and pursue placement of patient. no change in mgmtm otherwise today. Reason for continued inpatient stay Substantial Risk for: harm to others, inability to function and rapid decompensation Time Spent With Patient Time: Total time managing care of this patient today __35__ minutes.
--- NOTE | 2023-08-24 14:18 | HO.HCP ---
Health Care Proxy Invocation Health Care Proxy Declaration: I, simone gutierrez , on the date cited below, have determined that, franky hartman , lacks the capacity to make or communicate, informed health care decision. This determination is made in accordance with accepted standards of medical judgment and pursuant to [place], the [place] Health Care Proxy Law. The cause, nature, extent and probable duration of the patient's inapacity are described below: Cause: dementia with associated delusions Nature: disrupted attention and memory formation Extent: general, pervasive Probable Duration of Patient's Incapacity: indefinite
[2023-08-24 18:15] LABS: Glucose, Whole Blood 222 mg/dL (60-115)
[2023-08-24 20:25] VITALS: BP 119/70; PULSE 79; TEMP 36.3; O2SAT 99
[2023-08-24 21:38] LABS: Glucose, Whole Blood 197 mg/dL (60-115)
[2023-08-24] MEDS: QUEtiapine Fumarate 50 MG TABLET PO (21:41)
[2023-08-24] MEDS: Insulin Glargine,Hum.rec.anlog 100 UNIT/ML 10 ML VIAL 30 UNIT SUBCUT (21:43)
[2023-08-24] MEDS: NaPROXEN 250 MG TABLET PO (21:52)
[2023-08-25] MEDS: Omeprazole 20 MG CAPSULE.DR PO ×2 (07:13→17:19)
[2023-08-25 08:33] LABS: Glucose, Whole Blood 186 mg/dL (60-115)
[2023-08-25 09:00] VITALS: BP 131/61; PULSE 80; RESP 20; TEMP 36; O2SAT 98
[2023-08-25] MEDS: Insulin Lispro 100 UNIT/ML 3 ML VIAL SUBCUT ×3 (09:08→17:18)
[2023-08-25] MEDS: Valsartan 80 MG TABLET PO (09:09)
[2023-08-25] MEDS: Atorvastatin Calcium 80 MG TABLET PO (09:09)
[2023-08-25] MEDS: hydroCHLOROthiazide 12.5 MG TABLET PO (09:09)
[2023-08-25] MEDS: Metoprolol Succinate ER 25 MG TAB.ER.24H PO (09:09)
[2023-08-25] MEDS: Lactase TABLET 1 TAB PO ×3 (09:09→17:19)
[2023-08-25] MEDS: Mirabegron 25 MG TAB.ER.24H PO (09:10)
[2023-08-25] MEDS: Multivitamin TABLET 1 TAB PO (09:10)
[2023-08-25] MEDS: Baclofen 10 MG TABLET PO ×3 (09:10→23:01)
[2023-08-25] MEDS: amLODIPine Besylate 5 MG TABLET PO (09:11)
[2023-08-25] MEDS: Donepezil HCl 5 MG TABLET PO (09:11)
[2023-08-25] MEDS: Loratadine 10 MG TABLET PO (09:11)
[2023-08-25] MEDS: Aspirin Enteric Coated 81 MG TABLET.DR PO (09:11)
[2023-08-25] MEDS: Fluticasone Propionate Nasal 16 GM SPRAY 1 SPRAY NOSTRIL-B ×2 (09:12→23:02)
[2023-08-25] MEDS: Nystatin Powder 15 GM BOTTLE 1 APPL TOPICAL (11:36)
[2023-08-25 12:22] LABS: Glucose, Whole Blood 204 mg/dL (60-115)
[2023-08-25 17:18] LABS: Glucose, Whole Blood 190 mg/dL (60-115)
[2023-08-25 20:17] VITALS: BP 154/63; PULSE 75; RESP 18; TEMP 36.2; O2SAT 98
--- NOTE | 2023-08-25 20:59 | HO.PSYCHPN ---
Subjective Subjective Date of Service: 08/25/23 Reason For Visit: Agitation/HI Interim History: calm, cooperative. visible in milieu. no questions or complaints. per staff, polite, c/o back pain. showered. no events. Mental Status Exam Mental Status Exam Narrative: adequately dressed and groomed, cooperative, no PMA/PMR. speech nml rate, amount, loudness, tone, latency. thoughts linear and illogical. affect constricted, normo-intense, min-labile. no SI/SIBI/HI/AVH expressed. Diagnostics Vital Signs (24Hr): Vital Signs - 24 hr 08/25/23 09:00 Temperature 96.8 F Pulse Rate 80 Respiratory Rate 20 Blood Pressure 131/61 Pulse Oximetry 98 Oxygen Delivery Method Room Air BMI result Body Mass Index 35.4 Labs 08/14/23 03:42 08/14/23 03:42 Labs: Laboratory Results - last 48 hr 08/24/23 08/24/23 08/24/23 07:52 12:43 18:12 POC Glucose 152 H 180 H 222 H 08/24/23 08/25/23 08/25/23 21:34 08:27 12:17 POC Glucose 197 H 186 H 204 H 08/25/23 17:13 POC Glucose 190 H Medications Medications Current Medications Acetaminophen (Acetaminophen 325 Mg Tablet) 650 mg PO Q6H PRN PRN Reason: Headache/Pain Mild Scale (1-3) Last Admin: 08/21/23 13:35 Dose: 650 mg Al Hydroxide/Mg Hydroxide (Magnesium Hydrox/Alum Hydrox 30 Ml Oral.Susp) 30 ml PO Q6H PRN PRN Reason: Heartburn/Nausea Amlodipine Besylate (Amlodipine Besylate 5 Mg Tablet) 5 mg PO DAILY [facility]; Protocol Last Admin: 08/25/23 09:11 Dose: 5 mg Aspirin (Aspirin Enteric Coated 81 Mg Tablet.) 81 mg PO DAILY [facility] Last Admin: 08/25/23 09:11 Dose: 81 mg Atorvastatin Calcium (Atorvastatin Calcium 80 Mg Tablet) 80 mg PO DAILY [facility] Last Admin: 08/25/23 09:09 Dose: 80 mg Baclofen (Baclofen 10 Mg Tablet) 10 mg PO TID [facility] Last Admin: 08/25/23 15:08 Dose: 10 mg Donepezil HCl (Donepezil Hcl 5 Mg Tablet) 5 mg PO DAILY [facility] Last Admin: 08/25/23 09:11 Dose: 5 mg Fluticasone Propionate (Fluticasone Propionate Nasal 16 Gm [place]) 1 spray NOSTRIL-B BID [facility] Last Admin: 08/25/23 09:12 Dose: 1 spray Glucose (Glucose Gel 15 Gm Gel..Gram.) 15 gm PO DAILY PRN PRN Reason: hypoglycemia Hydrochlorothiazide (Hydrochlorothiazide 12.5 Mg Tablet) 12.5 mg PO DAILY [facility]; Protocol Last Admin: 08/25/23 09:09 Dose: 12.5 mg Insulin Glargine (Insulin Glargine,Hum.Rec.Anlog 100 Unit/Ml 10 Ml Vial) 30 unit SUBCUT BEDTIME [facility] Last Admin: 08/24/23 21:43 Dose: 30 unit Insulin Human Lispro (Insulin Lispro 100 Unit/Ml 3 Ml Vial) 0 unit SUBCUT TIDAC [facility]; Protocol Last Admin: 08/25/23 17:18 Dose: 4 unit Lactase (Lactase Tablet) 1 tab PO TIDWM [facility] Last Admin: 08/25/23 17:19 Dose: 1 tab Loperamide HCl (Loperamide Hcl 2 Mg Capsule) 2 mg PO Q4H PRN PRN Reason: Diarrhea Last Admin: 08/18/23 11:24 Dose: 2 mg Loratadine (Loratadine 10 Mg Tablet) 10 mg PO DAILY [facility] Last Admin: 08/25/23 09:11 Dose: 10 mg Magnesium Hydroxide (Milk Of Magnesia 30 Ml Oral.Susp) 30 ml PO DAILY PRN PRN Reason: Constipation Metoprolol Succinate (Metoprolol Succinate Er 25 Mg Tab.Er.24h) 25 mg PO DAILY [facility]; Protocol Last Admin: 08/25/23 09:09 Dose: 25 mg Mirabegron (Mirabegron 25 Mg Tab.Er.24h) 25 mg PO DAILY [facility] Last Admin: 08/25/23 09:10 Dose: 25 mg Multivitamins/Vitamin C (Multivitamin Tablet) 1 tab PO DAILY [facility] Last Admin: 08/25/23 09:10 Dose: 1 tab Naproxen (Naproxen 250 Mg Tablet) 250 mg PO BID PRN PRN Reason: back pain Last Admin: 08/24/23 21:52 Dose: 250 mg Nicotine (Nicotine 21 Mg Patch.Td24) 21 mg TRANSDERMA DAILY PRN PRN Reason: smoking cessation Nicotine Polacrilex (Nicotine Polacrilex 2 Mg Gum) 4 mg BUCCAL Q2H PRN PRN Reason: Nicotine Cravings Nystatin (Nystatin Powder 15 Gm Bottle) 1 appl TOPICAL BID [facility]; Protocol Last Admin: 08/25/23 11:36 Dose: 1 appl Olanzapine (Olanzapine 5 Mg Tablet) 5 mg PO TID PRN PRN Reason: agitation Omeprazole (Omeprazole 20 Mg Capsule.Dr) 20 mg PO BID@0630,1630 [facility] Last Admin: 08/25/23 17:19 Dose: 20 mg Quetiapine Fumarate (Quetiapine Fumarate 50 Mg Tablet) 50 mg PO BEDTIME [facility] Last Admin: 08/24/23 21:41 Dose: 50 mg Trazodone HCl (Trazodone Hcl 50 Mg Tablet) 50 mg PO BEDTIME MRX1 PRN PRN Reason: Insomnia Valsartan (Valsartan 80 Mg Tablet) 80 mg PO DAILY [facility]; Protocol Last Admin: 08/25/23 09:09 Dose: 80 mg Allergies Allergies Allergy/AdvReac Type Severity Reaction Status Date / Time Sulfa (Sulfonamide Allergy Severe DIFFICULTY Verified 12/05/22 18:20 Antibiotics) BREATHING [SULFA (SULFONAMIDE ANTIBIOTICS)] cephalexin [From KEFLEX] Allergy Intermediate RASH,HIVES Verified 12/05/22 18:20 amoxicillin [AMOXICILLIN] Allergy Unknown DENIES Verified 12/05/22 18:20 THIS ALLERGY 03/28/2018 penicillin V Allergy Unknown Unknown Verified 12/05/22 18:20 sumatriptan [From IMITREX] AdvReac Severe HEART Verified 12/05/22 18:20 PALPITATIONS topiramate [From TOPAMAX] AdvReac Severe AGITATION Verified 12/05/22 18:20 Assessment & Plan Assessment & Plan (1) Homicidal ideation: Status: Acute Code(s): R45.850 - Homicidal ideations (2) Type 2 diabetes mellitus with unspecified complications: Status: Acute Code(s): E11.8 - Type 2 diabetes mellitus with unspecified complications (3) Dementia: Qualifiers: Dementia behavioral or psychological symptom: with psychotic disturbance Status: Acute Code(s): F03.90 - Unspecified dementia, unspecified severity, without behavioral disturbance, psychotic disturbance, mood disturbance, and anxiety Plan 08/15: continue home medications regimen for now. R/O UTI. get DM under better control. MoCA /30, MCI. 08/16: appears to have UTI, gnrs. hospitalist consult for input/Tx. FSBS 200s-400s. continue to try to get glucose under better control. continue home meds regimen for now. 08/17: antibx for UTI. fecal incontinence in shower today, cognitive/memory deficits. may be placement case. continue current mgmt for now. 08/18: Start impdium and lactaid. Continue current management and treatment plan. 08/19: Continue current management and treatment plan. 08/20: ACLS completed by leon OT: scored 4.2, moderate impairment, 4-12 yo cognition, should not drive. continue current mgmt for now. remains focussed on her belief in her 's sexual encounter with her daughter. 08/21: irritable/angry edge today on being told she will not discharge until . incontinent last night. no insight into dementia, declining mental health referrals. continue current mgmt with plan to discharge home on , with collaboration of pt's . 08/22: appears worse than yesterday, insisting she will leave, standing by door with her things, becoming agitated and yelling when challenged. discharge canceled for safety concerns. continue current mgmt. may need to revoke CV and pursue commitment and/or guardianship. 08/23: more congenial today, less labile. 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 08/24: planning to invoke HCP and pursue placement of patient. no change in mgmt otherwise today. 08/25: HCP invoked yesterday. stable, no change in mgmt today. Reason for continued inpatient stay Substantial Risk for: harm to others and inability to function Time Spent With Patient Time: Total time managing care of this patient today ____ minutes.
[2023-08-25 22:45] VITALS: BP 137/66; PULSE 75; RESP 18; TEMP 36.1; O2SAT 99
[2023-08-25 22:57] LABS: Glucose, Whole Blood 212 mg/dL (60-115)
[2023-08-25] MEDS: NaPROXEN 250 MG TABLET PO (23:01)
[2023-08-25] MEDS: QUEtiapine Fumarate 50 MG TABLET PO (23:01)
[2023-08-25] MEDS: Insulin Glargine,Hum.rec.anlog 100 UNIT/ML 10 ML VIAL 30 UNIT SUBCUT (23:03)
[2023-08-26 08:05] LABS: Glucose, Whole Blood 133 mg/dL (60-115)
[2023-08-26 08:40] VITALS: BP 122/58; PULSE 67; RESP 20; TEMP 36.1; O2SAT 98
[2023-08-26] MEDS: Loratadine 10 MG TABLET PO (08:41)
[2023-08-26] MEDS: amLODIPine Besylate 5 MG TABLET PO (08:41)
[2023-08-26] MEDS: Fluticasone Propionate Nasal 16 GM SPRAY 1 SPRAY NOSTRIL-B ×2 (08:41→20:38)
[2023-08-26] MEDS: Aspirin Enteric Coated 81 MG TABLET.DR PO (08:41)
[2023-08-26] MEDS: Atorvastatin Calcium 80 MG TABLET PO (08:42)
[2023-08-26] MEDS: Mirabegron 25 MG TAB.ER.24H PO (08:42)
[2023-08-26] MEDS: Valsartan 80 MG TABLET PO (08:42)
[2023-08-26] MEDS: Baclofen 10 MG TABLET PO ×3 (08:42→20:36)
[2023-08-26] MEDS: Lactase TABLET 1 TAB PO ×3 (08:42→16:25)
[2023-08-26] MEDS: Metoprolol Succinate ER 25 MG TAB.ER.24H PO (08:42)
[2023-08-26] MEDS: Donepezil HCl 5 MG TABLET PO (08:43)
[2023-08-26] MEDS: Omeprazole 20 MG CAPSULE.DR PO ×2 (08:43→16:25)
[2023-08-26] MEDS: Multivitamin TABLET 1 TAB PO (08:43)
[2023-08-26] MEDS: hydroCHLOROthiazide 12.5 MG TABLET PO (08:43)
[2023-08-26] MEDS: Nystatin Powder 15 GM BOTTLE 1 APPL TOPICAL (11:37)
[2023-08-26 11:57] LABS: Glucose, Whole Blood 209 mg/dL (60-115)
[2023-08-26] MEDS: Insulin Lispro 100 UNIT/ML 3 ML VIAL SUBCUT ×2 (12:00→17:50)
[2023-08-26 16:45] LABS: Glucose, Whole Blood 157 mg/dL (60-115)
[2023-08-26 19:58] VITALS: BP 112/56; PULSE 77; RESP 18; TEMP 36.2; O2SAT 9
[2023-08-26] MEDS: QUEtiapine Fumarate 50 MG TABLET PO (20:36)
--- NOTE | 2023-08-26 20:52 | HO.PSYCHPN ---
Subjective Subjective Date of Service: 08/26/23 Reason For Visit: Agitation/HI Interim History: i feel fine. reports she spoke with her yesterday. no complaints or requests other than to discharge. per staff, stable, no changes in presentation. Mental Status Exam Mental Status Exam Narrative: adequately dressed and groomed, cooperative, no PMA/PMR. speech nml rate, amount, loudness, tone, latency. thoughts linear and illogical. affect constricted, normo-intense, non-labile. mood i feel fine. no SI/SIBI/HI/AVH expressed. Diagnostics Vital Signs (24Hr): Vital Signs - 24 hr 08/25/23 22:45 08/26/23 08:40 08/26/23 19:58 Temperature 96.9 F 97.0 F 97.1 F Pulse Rate 75 67 77 Respiratory Rate 18 20 18 Blood Pressure 137/66 122/58 L 112/56 L Pulse Oximetry 99 98 9 L Oxygen Delivery Method Room Air Room Air Room Air BMI result Body Mass Index 35.4 Labs 08/14/23 03:42 08/14/23 03:42 Labs: Laboratory Results - last 48 hr 08/24/23 08/25/23 08/25/23 21:34 08:27 12:17 POC Glucose 197 H 186 H 204 H 08/25/23 08/25/23 08/26/23 17:13 22:53 08:00 POC Glucose 190 H 212 H 133 H 08/26/23 08/26/23 11:40 16:40 POC Glucose 209 H 157 H Medications Medications Current Medications Acetaminophen (Acetaminophen 325 Mg Tablet) 650 mg PO Q6H PRN PRN Reason: Headache/Pain Mild Scale (1-3) Last Admin: 08/21/23 13:35 Dose: 650 mg Al Hydroxide/Mg Hydroxide (Magnesium Hydrox/Alum Hydrox 30 Ml Oral.Susp) 30 ml PO Q6H PRN PRN Reason: Heartburn/Nausea Amlodipine Besylate (Amlodipine Besylate 5 Mg Tablet) 5 mg PO DAILY [facility]; Protocol Last Admin: 08/26/23 08:41 Dose: 5 mg Aspirin (Aspirin Enteric Coated 81 Mg Tablet.) 81 mg PO DAILY [facility] Last Admin: 08/26/23 08:41 Dose: 81 mg Atorvastatin Calcium (Atorvastatin Calcium 80 Mg Tablet) 80 mg PO DAILY [facility] Last Admin: 08/26/23 08:42 Dose: 80 mg Baclofen (Baclofen 10 Mg Tablet) 10 mg PO TID [facility] Last Admin: 08/26/23 20:36 Dose: 10 mg Donepezil HCl (Donepezil Hcl 5 Mg Tablet) 5 mg PO DAILY [facility] Last Admin: 08/26/23 08:43 Dose: 5 mg Fluticasone Propionate (Fluticasone Propionate Nasal 16 Gm [place]) 1 spray NOSTRIL-B BID [facility] Last Admin: 08/26/23 20:38 Dose: 1 spray Glucose (Glucose Gel 15 Gm Gel..Gram.) 15 gm PO DAILY PRN PRN Reason: hypoglycemia Hydrochlorothiazide (Hydrochlorothiazide 12.5 Mg Tablet) 12.5 mg PO DAILY [facility]; Protocol Last Admin: 08/26/23 08:43 Dose: 12.5 mg Insulin Glargine (Insulin Glargine,Hum.Rec.Anlog 100 Unit/Ml 10 Ml Vial) 30 unit SUBCUT BEDTIME [facility] Last Admin: 08/25/23 23:03 Dose: 30 unit Insulin Human Lispro (Insulin Lispro 100 Unit/Ml 3 Ml Vial) 0 unit SUBCUT TIDAC [facility]; Protocol Last Admin: 08/26/23 17:50 Dose: 4 unit Lactase (Lactase Tablet) 1 tab PO TIDWM [facility] Last Admin: 08/26/23 16:25 Dose: 1 tab Loperamide HCl (Loperamide Hcl 2 Mg Capsule) 2 mg PO Q4H PRN PRN Reason: Diarrhea Last Admin: 08/18/23 11:24 Dose: 2 mg Loratadine (Loratadine 10 Mg Tablet) 10 mg PO DAILY [facility] Last Admin: 08/26/23 08:41 Dose: 10 mg Magnesium Hydroxide (Milk Of Magnesia 30 Ml Oral.Susp) 30 ml PO DAILY PRN PRN Reason: Constipation Metoprolol Succinate (Metoprolol Succinate Er 25 Mg Tab.Er.24h) 25 mg PO DAILY [facility]; Protocol Last Admin: 08/26/23 08:42 Dose: 25 mg Mirabegron (Mirabegron 25 Mg Tab.Er.24h) 25 mg PO DAILY [facility] Last Admin: 08/26/23 08:42 Dose: 25 mg Multivitamins/Vitamin C (Multivitamin Tablet) 1 tab PO DAILY [facility] Last Admin: 08/26/23 08:43 Dose: 1 tab Naproxen (Naproxen 250 Mg Tablet) 250 mg PO BID PRN PRN Reason: back pain Last Admin: 08/25/23 23:01 Dose: 250 mg Nicotine (Nicotine 21 Mg Patch.Td24) 21 mg TRANSDERMA DAILY PRN PRN Reason: smoking cessation Nicotine Polacrilex (Nicotine Polacrilex 2 Mg Gum) 4 mg BUCCAL Q2H PRN PRN Reason: Nicotine Cravings Nystatin (Nystatin Powder 15 Gm Bottle) 1 appl TOPICAL BID [facility]; Protocol Last Admin: 08/26/23 11:37 Dose: 1 appl Olanzapine (Olanzapine 5 Mg Tablet) 5 mg PO TID PRN PRN Reason: agitation Omeprazole (Omeprazole 20 Mg Capsule.Dr) 20 mg PO BID@0630,1630 [facility] Last Admin: 08/26/23 16:25 Dose: 20 mg Quetiapine Fumarate (Quetiapine Fumarate 50 Mg Tablet) 50 mg PO BEDTIME [facility] Last Admin: 08/26/23 20:36 Dose: 50 mg Trazodone HCl (Trazodone Hcl 50 Mg Tablet) 50 mg PO BEDTIME MRX1 PRN PRN Reason: Insomnia Valsartan (Valsartan 80 Mg Tablet) 80 mg PO DAILY [facility]; Protocol Last Admin: 08/26/23 08:42 Dose: 80 mg Allergies Allergies Allergy/AdvReac Type Severity Reaction Status Date / Time Sulfa (Sulfonamide Allergy Severe DIFFICULTY Verified 12/05/22 18:20 Antibiotics) BREATHING [SULFA (SULFONAMIDE ANTIBIOTICS)] cephalexin [From KEFLEX] Allergy Intermediate RASH,HIVES Verified 12/05/22 18:20 amoxicillin [AMOXICILLIN] Allergy Unknown DENIES Verified 12/05/22 18:20 THIS ALLERGY 03/28/2018 penicillin V Allergy Unknown Unknown Verified 12/05/22 18:20 sumatriptan [From IMITREX] AdvReac Severe HEART Verified 12/05/22 18:20 PALPITATIONS topiramate [From TOPAMAX] AdvReac Severe AGITATION Verified 12/05/22 18:20 Assessment & Plan Assessment & Plan (1) Homicidal ideation: Status: Acute Code(s): R45.850 - Homicidal ideations (2) Type 2 diabetes mellitus with unspecified complications: Status: Acute Code(s): E11.8 - Type 2 diabetes mellitus with unspecified complications (3) Dementia: Qualifiers: Dementia behavioral or psychological symptom: with psychotic disturbance Status: Acute Code(s): F03.90 - Unspecified dementia, unspecified severity, without behavioral disturbance, psychotic disturbance, mood disturbance, and anxiety Plan 08/15: continue home medications regimen for now. R/O UTI. get DM under better control. MoCA 25/30, MCI. 08/16: appears to have UTI, gnrs. hospitalist consult for input/Tx. FSBS 200s-400s. continue to try to get glucose under better control. continue home meds regimen for now. 08/17: antibx for UTI. fecal incontinence in shower today, cognitive/memory deficits. may be placement case. continue current mgmt for now. 08/18: Start impdium and lactaid. Continue current management and treatment plan. 08/19: Continue current management and treatment plan. 08/20: ACLS completed by leon OT: scored 4.2, moderate impairment, 4-12 yo cognition, should not drive. continue current mgmt for now. remains focussed on her belief in her 's sexual encounter with her daughter. 08/21: irritable/angry edge today on being told she will not discharge until . incontinent last night. no insight into dementia, declining mental health referrals. continue current mgmt with plan to discharge home on , with collaboration of pt's . 08/22: appears worse than yesterday, insisting she will leave, standing by door with her things, becoming agitated and yelling when challenged. discharge canceled for safety concerns. continue current mgmt. may need to revoke CV and pursue commitment and/or guardianship. 08/23: more congenial today, less labile. 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 08/24: planning to invoke HCP and pursue placement of patient. no change in mgmt otherwise today. 08/25: HCP invoked yesterday. stable, no change in mgmt today. 08/26: no change in presentation. continue current mgmt. Reason for continued inpatient stay Substantial Risk for: harm to others, inability to function and rapid decompensation Time Spent With Patient Time: Total time managing care of this patient today ____ minutes.
[2023-08-26] MEDS: Insulin Glargine,Hum.rec.anlog 100 UNIT/ML 10 ML VIAL 30 UNIT SUBCUT (21:08)
[2023-08-26 21:11] LABS: Glucose, Whole Blood 102 mg/dL (60-115)
[2023-08-27 08:53] LABS: Glucose, Whole Blood 150 mg/dL (60-115)
[2023-08-27] MEDS: Mirabegron 25 MG TAB.ER.24H PO (08:57)
[2023-08-27] MEDS: Atorvastatin Calcium 80 MG TABLET PO (08:57)
[2023-08-27] MEDS: Multivitamin TABLET 1 TAB PO (08:57)
[2023-08-27] MEDS: Baclofen 10 MG TABLET PO ×3 (08:57→20:41)
[2023-08-27] MEDS: amLODIPine Besylate 5 MG TABLET PO (08:57)
[2023-08-27] MEDS: Loratadine 10 MG TABLET PO (08:57)
[2023-08-27] MEDS: Valsartan 80 MG TABLET PO (08:57)
[2023-08-27] MEDS: Lactase TABLET 1 TAB PO ×3 (08:58→16:59)
[2023-08-27] MEDS: Aspirin Enteric Coated 81 MG TABLET.DR PO (08:58)
[2023-08-27] MEDS: Metoprolol Succinate ER 25 MG TAB.ER.24H PO (08:58)
[2023-08-27] MEDS: Donepezil HCl 5 MG TABLET PO (08:58)
[2023-08-27] MEDS: hydroCHLOROthiazide 12.5 MG TABLET PO (08:58)
[2023-08-27] MEDS: Fluticasone Propionate Nasal 16 GM SPRAY 1 SPRAY NOSTRIL-B (09:02)
[2023-08-27] MEDS: Omeprazole 20 MG CAPSULE.DR PO ×2 (09:05→16:59)
[2023-08-27 09:08] VITALS: BP 124/60; PULSE 71; RESP 20; TEMP 36.5; O2SAT 96
[2023-08-27 13:20] LABS: Glucose, Whole Blood 177 mg/dL (60-115)
[2023-08-27] MEDS: Insulin Lispro 100 UNIT/ML 3 ML VIAL SUBCUT ×2 (13:25→18:12)
[2023-08-27 18:10] LABS: Glucose, Whole Blood 233 mg/dL (60-115)
--- NOTE | 2023-08-27 19:03 | HO.PSYCHPN ---
Subjective Subjective Date of Service: 08/27/23 Reason For Visit: Agitation/HI Interim History: no change in presentation. bored. sleeping, ,eating, getting along OK. per staff, denies dep/anx. FSBS 133, 209, 150. visible, eating, tearful eves. Mental Status Exam Mental Status Exam Narrative: adequately dressed and groomed, cooperative, no PMA/PMR. speech nml rate, amount, loudness, tone, latency. thoughts linear and illogical. affect constricted, normo-intense, non-labile. mood i feel fine. no SI/SIBI/HI/AVH expressed. Diagnostics Vital Signs (24Hr): Vital Signs - 24 hr 08/26/23 19:58 08/27/23 09:08 Temperature 97.1 F 97.7 F Pulse Rate 77 71 Respiratory Rate 18 20 Blood Pressure 112/56 L 124/60 Pulse Oximetry 9 L 96 Oxygen Delivery Method Room Air Room Air BMI result Body Mass Index 35.4 Labs 08/14/23 03:42 08/14/23 03:42 Labs: Laboratory Results - last 48 hr 08/25/23 08/26/23 08/26/23 22:53 08:00 11:40 POC Glucose 212 H 133 H 209 H 08/26/23 08/26/23 08/27/23 16:40 21:01 08:47 POC Glucose 157 H 102 150 H 08/27/23 08/27/23 13:16 18:06 POC Glucose 177 H 233 H Medications Medications Current Medications Acetaminophen (Acetaminophen 325 Mg Tablet) 650 mg PO Q6H PRN PRN Reason: Headache/Pain Mild Scale (1-3) Last Admin: 08/21/23 13:35 Dose: 650 mg Al Hydroxide/Mg Hydroxide (Magnesium Hydrox/Alum Hydrox 30 Ml Oral.Susp) 30 ml PO Q6H PRN PRN Reason: Heartburn/Nausea Amlodipine Besylate (Amlodipine Besylate 5 Mg Tablet) 5 mg PO DAILY [facility]; Protocol Last Admin: 08/27/23 08:57 Dose: 5 mg Aspirin (Aspirin Enteric Coated 81 Mg Tablet.) 81 mg PO DAILY [facility] Last Admin: 08/27/23 08:58 Dose: 81 mg Atorvastatin Calcium (Atorvastatin Calcium 80 Mg Tablet) 80 mg PO DAILY [facility] Last Admin: 08/27/23 08:57 Dose: 80 mg Baclofen (Baclofen 10 Mg Tablet) 10 mg PO TID [facility] Last Admin: 08/27/23 14:20 Dose: 10 mg Donepezil HCl (Donepezil Hcl 5 Mg Tablet) 5 mg PO DAILY [facility] Last Admin: 08/27/23 08:58 Dose: 5 mg Fluticasone Propionate (Fluticasone Propionate Nasal 16 Gm [place]) 1 spray NOSTRIL-B BID [facility] Last Admin: 08/27/23 09:02 Dose: 1 spray Glucose (Glucose Gel 15 Gm Gel..Gram.) 15 gm PO DAILY PRN PRN Reason: hypoglycemia Hydrochlorothiazide (Hydrochlorothiazide 12.5 Mg Tablet) 12.5 mg PO DAILY [facility]; Protocol Last Admin: 08/27/23 08:58 Dose: 12.5 mg Insulin Glargine (Insulin Glargine,Hum.Rec.Anlog 100 Unit/Ml 10 Ml Vial) 30 unit SUBCUT BEDTIME [facility] Last Admin: 08/26/23 21:08 Dose: 30 unit Insulin Human Lispro (Insulin Lispro 100 Unit/Ml 3 Ml Vial) 0 unit SUBCUT TIDAC [facility]; Protocol Last Admin: 08/27/23 18:12 Dose: 6 unit Lactase (Lactase Tablet) 1 tab PO TIDWM [facility] Last Admin: 08/27/23 16:59 Dose: 1 tab Loperamide HCl (Loperamide Hcl 2 Mg Capsule) 2 mg PO Q4H PRN PRN Reason: Diarrhea Last Admin: 08/18/23 11:24 Dose: 2 mg Loratadine (Loratadine 10 Mg Tablet) 10 mg PO DAILY [facility] Last Admin: 08/27/23 08:57 Dose: 10 mg Magnesium Hydroxide (Milk Of Magnesia 30 Ml Oral.Susp) 30 ml PO DAILY PRN PRN Reason: Constipation Metoprolol Succinate (Metoprolol Succinate Er 25 Mg Tab.Er.24h) 25 mg PO DAILY [facility]; Protocol Last Admin: 08/27/23 08:58 Dose: 25 mg Mirabegron (Mirabegron 25 Mg Tab.Er.24h) 25 mg PO DAILY [facility] Last Admin: 08/27/23 08:57 Dose: 25 mg Multivitamins/Vitamin C (Multivitamin Tablet) 1 tab PO DAILY [facility] Last Admin: 08/27/23 08:57 Dose: 1 tab Naproxen (Naproxen 250 Mg Tablet) 250 mg PO BID PRN PRN Reason: back pain Last Admin: 08/25/23 23:01 Dose: 250 mg Nicotine (Nicotine 21 Mg Patch.Td24) 21 mg TRANSDERMA DAILY PRN PRN Reason: smoking cessation Nicotine Polacrilex (Nicotine Polacrilex 2 Mg Gum) 4 mg BUCCAL Q2H PRN PRN Reason: Nicotine Cravings Nystatin (Nystatin Powder 15 Gm Bottle) 1 appl TOPICAL BID [facility]; Protocol Last Admin: 08/27/23 11:36 Dose: Not Given Olanzapine (Olanzapine 5 Mg Tablet) 5 mg PO TID PRN PRN Reason: agitation Omeprazole (Omeprazole 20 Mg Capsule.Dr) 20 mg PO BID@0630,1630 [facility] Last Admin: 08/27/23 16:59 Dose: 20 mg Quetiapine Fumarate (Quetiapine Fumarate 50 Mg Tablet) 50 mg PO BEDTIME [facility] Last Admin: 08/26/23 20:36 Dose: 50 mg Trazodone HCl (Trazodone Hcl 50 Mg Tablet) 50 mg PO BEDTIME MRX1 PRN PRN Reason: Insomnia Valsartan (Valsartan 80 Mg Tablet) 80 mg PO DAILY [facility]; Protocol Last Admin: 08/27/23 08:57 Dose: 80 mg Allergies Allergies Allergy/AdvReac Type Severity Reaction Status Date / Time Sulfa (Sulfonamide Allergy Severe DIFFICULTY Verified 12/05/22 18:20 Antibiotics) BREATHING [SULFA (SULFONAMIDE ANTIBIOTICS)] cephalexin [From KEFLEX] Allergy Intermediate RASH,HIVES Verified 12/05/22 18:20 amoxicillin [AMOXICILLIN] Allergy Unknown DENIES Verified 12/05/22 18:20 THIS ALLERGY 03/28/2018 penicillin V Allergy Unknown Unknown Verified 12/05/22 18:20 sumatriptan [From IMITREX] AdvReac Severe HEART Verified 12/05/22 18:20 PALPITATIONS topiramate [From TOPAMAX] AdvReac Severe AGITATION Verified 12/05/22 18:20 Assessment & Plan Assessment & Plan (1) Homicidal ideation: Status: Acute Code(s): R45.850 - Homicidal ideations (2) Type 2 diabetes mellitus with unspecified complications: Status: Acute Code(s): E11.8 - Type 2 diabetes mellitus with unspecified complications (3) Dementia: Qualifiers: Dementia behavioral or psychological symptom: with psychotic disturbance Dementia type: vascular dementia Status: Acute Code(s): F03.90 - Unspecified dementia, unspecified severity, without behavioral disturbance, psychotic disturbance, mood disturbance, and anxiety Plan 08/15: continue home medications regimen for now. R/O UTI. get DM under better control. MoCA 25/30, MCI. 08/16: appears to have UTI, gnrs. hospitalist consult for input/Tx. FSBS 200s-400s. continue to try to get glucose under better control. continue home meds regimen for now. 08/17: antibx for UTI. fecal incontinence in shower today, cognitive/memory deficits. may be placement case. continue current mgmt for now. 08/18: Start impdium and lactaid. Continue current management and treatment plan. 08/19: Continue current management and treatment plan. 08/20: ACLS completed by leon OT: scored 4.2, moderate impairment, 4-12 yo cognition, should not drive. continue current mgmt for now. remains focussed on her belief in her 's sexual encounter with her daughter. 08/21: irritable/angry edge today on being told she will not discharge until . incontinent last night. no insight into dementia, declining mental health referrals. continue current mgmt with plan to discharge home on , with collaboration of pt's . 08/22: appears worse than yesterday, insisting she will leave, standing by door with her things, becoming agitated and yelling when challenged. discharge canceled for safety concerns. continue current mgmt. may need to revoke CV and pursue commitment and/or guardianship. 08/23: more congenial today, less labile. 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 08/24: planning to invoke HCP and pursue placement of patient. no change in mgmt otherwise today. 08/25: HCP invoked yesterday. stable, no change in mgmt today. 08/26: no change in presentation. continue current mgmt. 08/27: no change in presentation. continue current mgmt. Reason for continued inpatient stay Substantial Risk for: harm to others, inability to function and rapid decompensation Time Spent With Patient Time: Total time managing care of this patient today ____ minutes.
[2023-08-27 20:10] VITALS: BP 132/60; PULSE 74; RESP 16; TEMP 36.2; O2SAT 99
[2023-08-27 20:20] LABS: Glucose, Whole Blood 177 mg/dL (60-115)
[2023-08-27] MEDS: Insulin Glargine,Hum.rec.anlog 100 UNIT/ML 10 ML VIAL 30 UNIT SUBCUT (20:40)
[2023-08-27] MEDS: QUEtiapine Fumarate 50 MG TABLET PO (20:41)
[2023-08-28 07:41] LABS: Glucose, Whole Blood 164 mg/dL (60-115)
[2023-08-28] MEDS: Fluticasone Propionate Nasal 16 GM SPRAY 1 SPRAY NOSTRIL-B (08:14)
[2023-08-28] MEDS: Mirabegron 25 MG TAB.ER.24H PO (08:15)
[2023-08-28] MEDS: Omeprazole 20 MG CAPSULE.DR PO ×2 (08:15→17:12)
[2023-08-28] MEDS: Valsartan 80 MG TABLET PO (08:16)
[2023-08-28] MEDS: Multivitamin TABLET 1 TAB PO (08:16)
[2023-08-28] MEDS: Atorvastatin Calcium 80 MG TABLET PO (08:16)
[2023-08-28] MEDS: Loratadine 10 MG TABLET PO (08:16)
[2023-08-28] MEDS: Donepezil HCl 5 MG TABLET PO (08:17)
[2023-08-28] MEDS: Baclofen 10 MG TABLET PO ×3 (08:17→21:36)
[2023-08-28] MEDS: Metoprolol Succinate ER 25 MG TAB.ER.24H PO (08:17)
[2023-08-28] MEDS: Lactase TABLET 1 TAB PO ×3 (08:17→17:12)
[2023-08-28] MEDS: amLODIPine Besylate 5 MG TABLET PO (08:17)
[2023-08-28] MEDS: Aspirin Enteric Coated 81 MG TABLET.DR PO (08:17)
[2023-08-28] MEDS: hydroCHLOROthiazide 12.5 MG TABLET PO (08:17)
[2023-08-28] MEDS: Insulin Lispro 100 UNIT/ML 3 ML VIAL SUBCUT ×2 (08:20→12:18)
[2023-08-28 08:25] VITALS: BP 130/68; PULSE 83; RESP 16; TEMP 36.4; O2SAT 98
[2023-08-28 12:12] LABS: Glucose, Whole Blood 164 mg/dL (60-115)
[2023-08-28] MEDS: Nystatin Powder 15 GM BOTTLE 1 APPL TOPICAL (12:18)
--- NOTE | 2023-08-28 15:00 | HO.PSYCHPN ---
Subjective Subjective Date of Service: 08/28/23 Reason For Visit: Agitation/HI Interim History: calm, cooperative. reports feeling fine, no complaints or requests other than that she would like to discharge. reports her 87 yo did not visit her yesterday, , because he had a patt job to go to. per staff, denies anxiety. sad, withdrawn. slept 7 hours. Mental Status Exam Mental Status Exam Narrative: adequately dressed and groomed, cooperative, no PMA/PMR. speech nml rate, amount, loudness, tone, latency. thoughts linear and illogical. affect constricted, normo-intense, non-labile. mood i feel fine. no SI/SIBI/HI/AVH expressed. Diagnostics Vital Signs (24Hr): Vital Signs - 24 hr 08/27/23 20:10 08/28/23 08:25 Temperature 97.2 F 97.6 F Pulse Rate 74 83 Respiratory Rate 16 16 Blood Pressure 132/60 130/68 Pulse Oximetry 99 98 Oxygen Delivery Method Room Air Room Air BMI result Body Mass Index 35.4 Labs 08/14/23 03:42 08/14/23 03:42 Labs: Laboratory Results - last 48 hr 08/26/23 08/26/23 08/27/23 16:40 21:01 08:47 POC Glucose 157 H 102 150 H 08/27/23 08/27/23 08/27/23 13:16 18:06 20:15 POC Glucose 177 H 233 H 177 H 08/28/23 08/28/23 07:30 12:06 POC Glucose 164 H 164 H Medications Medications Current Medications Acetaminophen (Acetaminophen 325 Mg Tablet) 650 mg PO Q6H PRN PRN Reason: Headache/Pain Mild Scale (1-3) Last Admin: 08/21/23 13:35 Dose: 650 mg Al Hydroxide/Mg Hydroxide (Magnesium Hydrox/Alum Hydrox 30 Ml Oral.Susp) 30 ml PO Q6H PRN PRN Reason: Heartburn/Nausea Amlodipine Besylate (Amlodipine Besylate 5 Mg Tablet) 5 mg PO DAILY [facility]; Protocol Last Admin: 08/28/23 08:17 Dose: 5 mg Aspirin (Aspirin Enteric Coated 81 Mg Tablet.) 81 mg PO DAILY [facility] Last Admin: 08/28/23 08:17 Dose: 81 mg Atorvastatin Calcium (Atorvastatin Calcium 80 Mg Tablet) 80 mg PO DAILY [facility] Last Admin: 08/28/23 08:16 Dose: 80 mg Baclofen (Baclofen 10 Mg Tablet) 10 mg PO TID [facility] Last Admin: 08/28/23 08:17 Dose: 10 mg Donepezil HCl (Donepezil Hcl 5 Mg Tablet) 5 mg PO DAILY [facility] Last Admin: 08/28/23 08:17 Dose: 5 mg Fluticasone Propionate (Fluticasone Propionate Nasal 16 Gm [place]) 1 spray NOSTRIL-B BID [facility] Last Admin: 08/28/23 08:14 Dose: 1 spray Glucose (Glucose Gel 15 Gm Gel..Gram.) 15 gm PO DAILY PRN PRN Reason: hypoglycemia Hydrochlorothiazide (Hydrochlorothiazide 12.5 Mg Tablet) 12.5 mg PO DAILY [facility]; Protocol Last Admin: 08/28/23 08:17 Dose: 12.5 mg Insulin Glargine (Insulin Glargine,Hum.Rec.Anlog 100 Unit/Ml 10 Ml Vial) 30 unit SUBCUT BEDTIME [facility] Last Admin: 08/27/23 20:40 Dose: 30 unit Insulin Human Lispro (Insulin Lispro 100 Unit/Ml 3 Ml Vial) 0 unit SUBCUT TIDAC [facility]; Protocol Last Admin: 08/28/23 12:18 Dose: 4 unit Lactase (Lactase Tablet) 1 tab PO TIDWM [facility] Last Admin: 08/28/23 12:18 Dose: 1 tab Loperamide HCl (Loperamide Hcl 2 Mg Capsule) 2 mg PO Q4H PRN PRN Reason: Diarrhea Last Admin: 08/18/23 11:24 Dose: 2 mg Loratadine (Loratadine 10 Mg Tablet) 10 mg PO DAILY [facility] Last Admin: 08/28/23 08:16 Dose: 10 mg Magnesium Hydroxide (Milk Of Magnesia 30 Ml Oral.Susp) 30 ml PO DAILY PRN PRN Reason: Constipation Metoprolol Succinate (Metoprolol Succinate Er 25 Mg Tab.Er.24h) 25 mg PO DAILY [facility]; Protocol Last Admin: 08/28/23 08:17 Dose: 25 mg Mirabegron (Mirabegron 25 Mg Tab.Er.24h) 25 mg PO DAILY [facility] Last Admin: 08/28/23 08:15 Dose: 25 mg Multivitamins/Vitamin C (Multivitamin Tablet) 1 tab PO DAILY [facility] Last Admin: 08/28/23 08:16 Dose: 1 tab Naproxen (Naproxen 250 Mg Tablet) 250 mg PO BID PRN PRN Reason: back pain Last Admin: 08/25/23 23:01 Dose: 250 mg Nicotine (Nicotine 21 Mg Patch.Td24) 21 mg TRANSDERMA DAILY PRN PRN Reason: smoking cessation Nicotine Polacrilex (Nicotine Polacrilex 2 Mg Gum) 4 mg BUCCAL Q2H PRN PRN Reason: Nicotine Cravings Nystatin (Nystatin Powder 15 Gm Bottle) 1 appl TOPICAL BID [facility]; Protocol Last Admin: 08/28/23 12:18 Dose: 1 appl Olanzapine (Olanzapine 5 Mg Tablet) 5 mg PO TID PRN PRN Reason: agitation Omeprazole (Omeprazole 20 Mg Capsule.Dr) 20 mg PO BID@0630,1630 [facility] Last Admin: 08/28/23 08:15 Dose: 20 mg Quetiapine Fumarate (Quetiapine Fumarate 50 Mg Tablet) 50 mg PO BEDTIME [facility] Last Admin: 08/27/23 20:41 Dose: 50 mg Trazodone HCl (Trazodone Hcl 50 Mg Tablet) 50 mg PO BEDTIME MRX1 PRN PRN Reason: Insomnia Valsartan (Valsartan 80 Mg Tablet) 80 mg PO DAILY [facility]; Protocol Last Admin: 08/28/23 08:16 Dose: 80 mg Allergies Allergies Allergy/AdvReac Type Severity Reaction Status Date / Time Sulfa (Sulfonamide Allergy Severe DIFFICULTY Verified 12/05/22 18:20 Antibiotics) BREATHING [SULFA (SULFONAMIDE ANTIBIOTICS)] cephalexin [From KEFLEX] Allergy Intermediate RASH,HIVES Verified 12/05/22 18:20 amoxicillin [AMOXICILLIN] Allergy Unknown DENIES Verified 12/05/22 18:20 THIS ALLERGY 03/28/2018 penicillin V Allergy Unknown Unknown Verified 12/05/22 18:20 sumatriptan [From IMITREX] AdvReac Severe HEART Verified 12/05/22 18:20 PALPITATIONS topiramate [From TOPAMAX] AdvReac Severe AGITATION Verified 12/05/22 18:20 Assessment & Plan Assessment & Plan (1) Homicidal ideation: Status: Acute Code(s): R45.850 - Homicidal ideations (2) Type 2 diabetes mellitus with unspecified complications: Status: Acute Code(s): E11.8 - Type 2 diabetes mellitus with unspecified complications (3) Dementia: Qualifiers: Dementia type: vascular dementia Dementia behavioral or psychological symptom: with psychotic disturbance Status: Acute Code(s): F03.90 - Unspecified dementia, unspecified severity, without behavioral disturbance, psychotic disturbance, mood disturbance, and anxiety Plan 08/15: continue home medications regimen for now. R/O UTI. get DM under better control. MoCA 25/30, MCI. 08/16: appears to have UTI, gnrs. hospitalist consult for input/Tx. FSBS 200s-400s. continue to try to get glucose under better control. continue home meds regimen for now. 08/17: antibx for UTI. fecal incontinence in shower today, cognitive/memory deficits. may be placement case. continue current mgmt for now. 08/18: Start impdium and lactaid. Continue current management and treatment plan. 08/19: Continue current management and treatment plan. 08/20: ACLS completed by [facility] OT: scored 4.2, moderate impairment, 4-12 yo cognition, should not drive. continue current mgmt for now. remains focussed on her belief in her 's sexual encounter with her daughter. 08/21: irritable/angry edge today on being told she will not discharge until . incontinent last night. no insight into dementia, declining mental health referrals. continue current mgmt with plan to discharge home on , with collaboration of pt's . 08/22: appears worse than yesterday, insisting she will leave, standing by door with her things, becoming agitated and yelling when challenged. discharge canceled for safety concerns. continue current mgmt. may need to revoke CV and pursue commitment and/or guardianship. 08/23: more congenial today, less labile. 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 08/24: planning to invoke HCP and pursue placement of patient. no change in mgmt otherwise today. 08/25: HCP invoked yesterday. stable, no change in mgmt today. 08/26: no change in presentation. continue current mgmt. 08/27: no change in presentation. continue current mgmt. 08/28: no change in presentation. continue current mgmt. Reason for continued inpatient stay Substantial Risk for: harm to others and inability to function Time Spent With Patient Time: Total time managing care of this patient today ____ minutes.
[2023-08-28 17:19] LABS: Glucose, Whole Blood 147 mg/dL (60-115)
[2023-08-28 21:00] VITALS: BP 157/69; PULSE 73; RESP 18; TEMP 36.6; O2SAT 95
[2023-08-28] MEDS: Insulin Glargine,Hum.rec.anlog 100 UNIT/ML 10 ML VIAL 30 UNIT SUBCUT (21:35)
[2023-08-28] MEDS: QUEtiapine Fumarate 50 MG TABLET PO (21:37)
[2023-08-28 22:54] LABS: COVID-19 Test Negative (Negative); IDNOW Serial# 9DB6401D
[2023-08-29 01:24] LABS: Glucose, Whole Blood 189 mg/dL (60-115)
[2023-08-29] MEDS: Omeprazole 20 MG CAPSULE.DR PO ×2 (06:53→15:44)
[2023-08-29 08:27] LABS: Glucose, Whole Blood 106 mg/dL (60-115)
[2023-08-29 08:41] VITALS: BP 97/43; PULSE 65; RESP 16; TEMP 36.2; O2SAT 95
[2023-08-29] MEDS: hydroCHLOROthiazide 12.5 MG TABLET PO (08:43)
[2023-08-29] MEDS: Metoprolol Succinate ER 25 MG TAB.ER.24H PO (08:44)
[2023-08-29] MEDS: Atorvastatin Calcium 80 MG TABLET PO (08:44)
[2023-08-29] MEDS: Mirabegron 25 MG TAB.ER.24H PO (08:44)
[2023-08-29] MEDS: Multivitamin TABLET 1 TAB PO (08:44)
[2023-08-29] MEDS: amLODIPine Besylate 5 MG TABLET PO (08:45)
[2023-08-29] MEDS: Lactase TABLET 1 TAB PO ×3 (08:45→17:06)
[2023-08-29] MEDS: Loratadine 10 MG TABLET PO (08:45)
[2023-08-29] MEDS: Valsartan 80 MG TABLET PO (08:45)
[2023-08-29] MEDS: Aspirin Enteric Coated 81 MG TABLET.DR PO (08:45)
[2023-08-29] MEDS: Donepezil HCl 5 MG TABLET PO (08:45)
[2023-08-29] MEDS: Baclofen 10 MG TABLET PO ×3 (08:47→21:21)
[2023-08-29] MEDS: Fluticasone Propionate Nasal 16 GM SPRAY 1 SPRAY NOSTRIL-B ×2 (08:50→21:20)
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
[2023-08-29 12:35] VITALS: BP 119/57; RESP 16
[2023-08-29 12:46] LABS: Glucose, Whole Blood 181 mg/dL (60-115)
[2023-08-29] MEDS: Insulin Lispro 100 UNIT/ML 3 ML VIAL SUBCUT ×2 (12:54→18:18)
[2023-08-29 18:11] LABS: Glucose, Whole Blood 170 mg/dL (60-115)
[2023-08-29 20:20] VITALS: BP 125/76; PULSE 76; RESP 18; TEMP 36.1; O2SAT 99
[2023-08-29 21:08] LABS: Glucose, Whole Blood 272 mg/dL (60-115)
[2023-08-29] MEDS: Insulin Glargine,Hum.rec.anlog 100 UNIT/ML 10 ML VIAL 30 UNIT SUBCUT (21:18)
[2023-08-29] MEDS: Nystatin Powder 15 GM BOTTLE 1 APPL TOPICAL (21:20)
[2023-08-29] MEDS: QUEtiapine Fumarate 50 MG TABLET PO (21:21)
[2023-08-30 06:00] VITALS: BP 125/61; PULSE 73; RESP 16; TEMP 36.1; O2SAT 96
[2023-08-30] MEDS: Omeprazole 20 MG CAPSULE.DR PO ×2 (06:45→17:02)
[2023-08-30 07:00] VITALS: BMI 35.9
[2023-08-30 08:11] LABS: Glucose, Whole Blood 224 mg/dL (60-115)
[2023-08-30] MEDS: Metoprolol Succinate ER 25 MG TAB.ER.24H PO (08:59)
[2023-08-30] MEDS: Aspirin Enteric Coated 81 MG TABLET.DR PO (08:59)
[2023-08-30] MEDS: amLODIPine Besylate 5 MG TABLET PO (08:59)
[2023-08-30] MEDS: Loratadine 10 MG TABLET PO (08:59)
[2023-08-30] MEDS: hydroCHLOROthiazide 12.5 MG TABLET PO (08:59)
[2023-08-30] MEDS: Valsartan 80 MG TABLET PO (08:59)
[2023-08-30] MEDS: Insulin Lispro 100 UNIT/ML 3 ML VIAL SUBCUT ×2 (08:59→17:48)
[2023-08-30] MEDS: Atorvastatin Calcium 80 MG TABLET PO (08:59)
[2023-08-30] MEDS: Donepezil HCl 5 MG TABLET PO (08:59)
[2023-08-30] MEDS: Baclofen 10 MG TABLET PO ×3 (08:59→20:49)
[2023-08-30] MEDS: Mirabegron 25 MG TAB.ER.24H PO (08:59)
[2023-08-30] MEDS: Lactase TABLET 1 TAB PO ×3 (08:59→17:02)
[2023-08-30] MEDS: Multivitamin TABLET 1 TAB PO (08:59)
[2023-08-30] MEDS: Nystatin Powder 15 GM BOTTLE 1 APPL TOPICAL (09:14)
[2023-08-30] MEDS: Fluticasone Propionate Nasal 16 GM SPRAY 1 SPRAY NOSTRIL-B ×2 (09:14→20:49)
[2023-08-30 12:36] LABS: Glucose, Whole Blood 125 mg/dL (60-115)
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
[2023-08-30 17:31] LABS: Glucose, Whole Blood 276 mg/dL (60-115)
[2023-08-30 20:00] VITALS: BP 151/70; PULSE 77; RESP 15; TEMP 36.5; O2SAT 99
[2023-08-30] MEDS: QUEtiapine Fumarate 50 MG TABLET PO (20:49)
[2023-08-30] MEDS: Insulin Glargine,Hum.rec.anlog 100 UNIT/ML 10 ML VIAL 30 UNIT SUBCUT (20:50)
[2023-08-30 20:59] LABS: Glucose, Whole Blood 234 mg/dL (60-115)
[2023-08-31] MEDS: Omeprazole 20 MG CAPSULE.DR PO ×2 (05:54→16:40)
[2023-08-31 07:35] VITALS: BP 99/57; PULSE 76; RESP 16; TEMP 36.6; O2SAT 96
[2023-08-31] MEDS: Multivitamin TABLET 1 TAB PO (08:31)
[2023-08-31] MEDS: Aspirin Enteric Coated 81 MG TABLET.DR PO (08:32)
[2023-08-31] MEDS: hydroCHLOROthiazide 12.5 MG TABLET PO (08:32)
[2023-08-31] MEDS: Metoprolol Succinate ER 25 MG TAB.ER.24H PO (08:33)
[2023-08-31] MEDS: amLODIPine Besylate 5 MG TABLET PO (08:33)
[2023-08-31] MEDS: Baclofen 10 MG TABLET PO ×3 (08:33→21:18)
[2023-08-31] MEDS: Mirabegron 25 MG TAB.ER.24H PO (08:33)
[2023-08-31] MEDS: Fluticasone Propionate Nasal 16 GM SPRAY 1 SPRAY NOSTRIL-B (08:33)
[2023-08-31] MEDS: Valsartan 80 MG TABLET PO (08:34)
[2023-08-31] MEDS: Lactase TABLET 1 TAB PO ×3 (08:34→16:51)
[2023-08-31] MEDS: Donepezil HCl 5 MG TABLET PO (08:34)
[2023-08-31] MEDS: Atorvastatin Calcium 80 MG TABLET PO (08:34)
[2023-08-31] MEDS: Loratadine 10 MG TABLET PO (08:34)
[2023-08-31 08:48] LABS: Glucose, Whole Blood 207 mg/dL (60-115)
[2023-08-31] MEDS: Insulin Lispro 100 UNIT/ML 3 ML VIAL SUBCUT ×2 (08:56→16:52)
--- NOTE | 2023-08-31 12:01 | PM.IMCN ---
History of Present Illness Data of Consult Service Date: 08/31/23 Primary Care Provider: Unknown Physician HPI Reason for consult: Uncontrolled DMII A 67 years old lady with PMH of Lewy body dementia, essential hypertension, [id number] diabetes mellitus who is admitted to psychiatric floor for agitation. Hospitalist team asked to evaluate her for elevated blood sugar levels. Her Glu ranges in 200s. she denies any chest pain, palpitations, SOB, nausea, vomiting, diarrhea or urinary symptoms. Review of Systems Review of Systems: Yes all other systems are reviewed and are negative [facility] Medical History Bacteremia Toxic metabolic encephalopathy Hypernatremia Bradycardia Shock Acute hypotension Encephalopathy Altered mental status Stroke due to stenosis of posterior cerebral artery Cortical blindness Restrictive lung disease Nocturnal hypoxemia Dyspnea on exertion Obesity (BMI 30-39.9) Anxiety Orthopnea Myalgia and myositis Essential hypertension Type 2 diabetes mellitus with unspecified complications Asthma Dementia, Lewy body with behavior disturbance Diabetes HTN (hypertension) UTI (urinary tract infection) CHF (congestive heart failure) Neuropathy Diabetic acetonemia Family History Father No problems noted. Mother Angina at rest Sister Lung cancer Colon cancer COPD (chronic obstructive pulmonary disease) Surgical History History of pancreatic surgery History of arthroscopy of both knees History of appendectomy History of hysterectomy Social History Household Members: Spouse Housing: Apartment Do you presently have visiting nurse or other home services: No Unable to assess alcohol history related to: Unknown Alcohol intake: never Comment: encouraged to call for assistance Patient Tobacco Use Status: Never used Tobacco Smoked in Last 30 Days: No e-Cigarette/Vaping Use: Never Used Second Hand Smoke Exposure: No Use of substances other than those prescribed or required for medical reasons: No Currently Displaying Signs/Symptoms of Drug Intoxication Withdrawal: No Have you been hit, kicked, punched, or otherwise hurt by someone within the past year? If so, by whom?: No Do you feel safe in your current relationship?: No Is there a partner from a previous relationship who is making you feel unsafe now?: No Are you made to feel afraid or neglected: No Spiritual Healthcare Practices: pt is sikhism Jewish Healthcare Practices: pt is sikhism Advance Directives: Yes Advance Directives on File: Yes Advance Directives Date on File: 07/27/20 Healthcare Proxy: No Guardian: No Do you have thoughts of harming others: None Do you have a plan to hurt others: No Plan Recently lost weight without trying: No Eating poorly because of decreased appetite: No Nutrition Risks: No Nutritional Risk Patient : No : No Poor oral hygiene: No service: No Current occupational status: disabled Current occupation: right handed Sexual orientation: Straight/Heterosexual Meds Allergies Allergy/AdvReac Type Severity Reaction Status Date / Time Sulfa (Sulfonamide Allergy Severe DIFFICULTY Verified 12/05/22 18:20 Antibiotics) BREATHING [SULFA (SULFONAMIDE ANTIBIOTICS)] cephalexin [From KEFLEX] Allergy Intermediate RASH,HIVES Verified 12/05/22 18:20 amoxicillin [AMOXICILLIN] Allergy Unknown DENIES Verified 12/05/22 18:20 THIS ALLERGY 03/28/2018 penicillin V Allergy Unknown Unknown Verified 12/05/22 18:20 sumatriptan [From IMITREX] AdvReac Severe HEART Verified 12/05/22 18:20 PALPITATIONS topiramate [From TOPAMAX] AdvReac Severe AGITATION Verified 12/05/22 18:20 Active Medications: Current Medications Acetaminophen (Acetaminophen 325 Mg Tablet) 650 mg PO Q6H PRN PRN Reason: Headache/Pain Mild Scale (1-3) Last Admin: 08/21/23 13:35 Dose: 650 mg Al Hydroxide/Mg Hydroxide (Magnesium Hydrox/Alum Hydrox 30 Ml Oral.Susp) 30 ml PO Q6H PRN PRN Reason: Heartburn/Nausea Amlodipine Besylate (Amlodipine Besylate 5 Mg Tablet) 5 mg PO DAILY [facility]; Protocol Last Admin: 08/31/23 08:33 Dose: 5 mg Aspirin (Aspirin Enteric Coated 81 Mg Tablet.) 81 mg PO DAILY [facility] Last Admin: 08/31/23 08:32 Dose: 81 mg Atorvastatin Calcium (Atorvastatin Calcium 80 Mg Tablet) 80 mg PO DAILY [facility] Last Admin: 08/31/23 08:34 Dose: 80 mg Baclofen (Baclofen 10 Mg Tablet) 10 mg PO TID [facility] Last Admin: 08/31/23 08:33 Dose: 10 mg Donepezil HCl (Donepezil Hcl 5 Mg Tablet) 5 mg PO DAILY [facility] Last Admin: 08/31/23 08:34 Dose: 5 mg Fluticasone Propionate (Fluticasone Propionate Nasal 16 Gm [place]) 1 spray NOSTRIL-B BID [facility] Last Admin: 08/31/23 08:33 Dose: 1 spray Glucose (Glucose Gel 15 Gm Gel..Gram.) 15 gm PO DAILY PRN PRN Reason: hypoglycemia Hydrochlorothiazide (Hydrochlorothiazide 12.5 Mg Tablet) 12.5 mg PO DAILY [facility]; Protocol Last Admin: 08/31/23 08:32 Dose: 12.5 mg Insulin Glargine (Insulin Glargine,Hum.Rec.Anlog 100 Unit/Ml 10 Ml Vial) 30 unit SUBCUT BEDTIME [facility] Last Admin: 08/30/23 20:50 Dose: 30 unit Insulin Human Lispro (Insulin Lispro 100 Unit/Ml 3 Ml Vial) 0 unit SUBCUT TIDAC [facility]; Protocol Last Admin: 08/31/23 08:56 Dose: 6 unit Lactase (Lactase Tablet) 1 tab PO TIDWM [facility] Last Admin: 08/31/23 08:34 Dose: 1 tab Loperamide HCl (Loperamide Hcl 2 Mg Capsule) 2 mg PO Q4H PRN PRN Reason: Diarrhea Last Admin: 08/18/23 11:24 Dose: 2 mg Loratadine (Loratadine 10 Mg Tablet) 10 mg PO DAILY [facility] Last Admin: 08/31/23 08:34 Dose: 10 mg Magnesium Hydroxide (Milk Of Magnesia 30 Ml Oral.Susp) 30 ml PO DAILY PRN PRN Reason: Constipation Metoprolol Succinate (Metoprolol Succinate Er 25 Mg Tab.Er.24h) 25 mg PO DAILY [facility]; Protocol Last Admin: 08/31/23 08:33 Dose: 25 mg Mirabegron (Mirabegron 25 Mg Tab.Er.24h) 25 mg PO DAILY [facility] Last Admin: 08/31/23 08:33 Dose: 25 mg Multivitamins/Vitamin C (Multivitamin Tablet) 1 tab PO DAILY [facility] Last Admin: 08/31/23 08:31 Dose: 1 tab Naproxen (Naproxen 250 Mg Tablet) 250 mg PO BID PRN PRN Reason: back pain Last Admin: 08/25/23 23:01 Dose: 250 mg Nicotine (Nicotine 21 Mg Patch.Td24) 21 mg TRANSDERMA DAILY PRN PRN Reason: smoking cessation Nicotine Polacrilex (Nicotine Polacrilex 2 Mg Gum) 4 mg BUCCAL Q2H PRN PRN Reason: Nicotine Cravings Nystatin (Nystatin Powder 15 Gm Bottle) 1 appl TOPICAL BID [facility]; Protocol Last Admin: 08/30/23 23:21 Dose: Not Given Olanzapine (Olanzapine 5 Mg Tablet) 5 mg PO TID PRN PRN Reason: agitation Omeprazole (Omeprazole 20 Mg Capsule.Dr) 20 mg PO BID@0630,1630 [facility] Last Admin: 08/31/23 05:54 Dose: 20 mg Quetiapine Fumarate (Quetiapine Fumarate 50 Mg Tablet) 50 mg PO BEDTIME [facility] Last Admin: 08/30/23 20:49 Dose: 50 mg Sitagliptin Phosphate (Sitagliptin Phosphate 25 Mg Tablet) 25 mg PO DAILY [facility] Trazodone HCl (Trazodone Hcl 50 Mg Tablet) 50 mg PO BEDTIME PRN PRN Reason: Insomnia Valsartan (Valsartan 80 Mg Tablet) 80 mg PO DAILY [facility]; Protocol Last Admin: 08/31/23 08:34 Dose: 80 mg Home Medications Medication Instructions Recorded Confirmed Last Taken Type aspirin 81 mg tablet,delayed 1 tab PO QAM 08/06/21 08/14/23 08/13/23 History release atorvastatin 80 mg tablet 1 tab PO DAILY 08/06/21 08/14/23 08/13/23 History hydrochlorothiazide 12.5 mg capsule 1 cap PO DAILY 08/06/21 08/14/23 08/13/23 History pantoprazole 40 mg tablet,delayed 1 tab PO BID 08/06/21 08/14/23 08/13/23 History release valsartan 80 mg tablet 1 tab PO DAILY 08/06/21 08/14/23 08/13/23 History multivitamin 1 tab PO QAM 09/19/21 08/14/23 08/13/23 History mirabegron 25 mg tablet,extended 25 mg PO DAILY 01/12/23 08/14/23 08/13/23 History release 24 hr (Myrbetriq) amlodipine 5 mg tablet 5 mg PO DAILY 01/13/23 08/14/23 08/13/23 History baclofen 10 mg tablet 10 mg PO TID 01/13/23 08/14/2308/13/23 History donepezil 5 mg tablet 5 mg PO DAILY 01/13/23 08/14/23 08/13/23 History insulin glargine 100 unit/mL (3 20 unit subcut BEDTIME 01/13/23 08/14/23 08/12/23 History mL) subcutaneous pen (Lantus Solostar U-100 Insulin) loratadine 10 mg tablet 10 mg PO DAILY 01/13/23 08/14/23 08/13/23 History quetiapine 25 mg tablet 50 mg PO BEDTIME 01/13/23 08/14/23 08/12/23 History insulin lispro 100 unit/mL 8 - 24 unit subcut TID 08/14/23 08/14/23 Unknown History subcutaneous pen (Humalog KwikPen (U-100) Insulin) Physical Exam Vital Signs and Narrative: Vital Signs: Last Vital Signs Temp 98 F 08/31/23 07:35 Pulse 76 08/31/23 07:35 Resp 16 08/31/23 07:35 BP 99/57 L 08/31/23 07:35 Pulse Ox 96 08/31/23 07:35 O2 Del Method Room Air 08/31/23 07:35 BMI result Body Mass Index 35.9 Const: Other: Constitutional : Awake, interactive, not in distress Cardiovascular : RRR, no JVP, no lower extremity edema Respiratory : good bilateral air entry, no crackles, wheezes or rhonchi Gastrointestinal: soft, lax, Normal bowel sounds, Non tender Neurological : Alert & oriented , No focal deficit , CN 2-12 within normal Results Labs 08/14/23 03:42 08/14/23 03:42 Labs: Laboratory Results - last 24 hr 08/30/23 08/30/23 08/30/23 12:33 17:27 20:52 POC Glucose 125 H 276 H 234 H 08/31/23 08:29 POC Glucose 207 H Assessment and Plan (1) Hyperglycemia due to diabetes mellitus: Status: Acute Plan A 67 years old lady with PMH of Lewy body dementia, essential hypertension, [id number] diabetes mellitus who is admitted to psychiatric floor for agitation. Hyperglycemia 2/2 Type II DM Last A1c of 10.3 Continue current SSI and Lantus Add Januvia 25 mg monitor blood sugar Thank you for the consult. Will continue to follow with you as needed
[2023-08-31] MEDS: Nystatin Powder 15 GM BOTTLE 1 APPL TOPICAL (12:18)
[2023-08-31 12:20] LABS: Glucose, Whole Blood 80 mg/dL (60-115)
[2023-08-31] MEDS: SITagliptin Phosphate 25 MG TABLET PO (13:56)
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
[2023-08-31 16:34] LABS: Glucose, Whole Blood 184 mg/dL (60-115)
[2023-08-31 19:51] LABS: Glucose, Whole Blood 137 mg/dL (60-115)
[2023-08-31 20:20] VITALS: BP 136/60; PULSE 76; TEMP 36.6; O2SAT 98
[2023-08-31] MEDS: Insulin Glargine,Hum.rec.anlog 100 UNIT/ML 10 ML VIAL 30 UNIT SUBCUT (21:17)
[2023-08-31] MEDS: QUEtiapine Fumarate 50 MG TABLET PO (21:18)
[2023-09-01] MEDS: Omeprazole 20 MG CAPSULE.DR PO ×2 (06:25→16:48)
[2023-09-01 07:35] VITALS: BP 139/62; PULSE 80; RESP 16; TEMP 36.1; O2SAT 94
--- NOTE | 2023-09-01 08:08 | P.PNPSI_ITS ---
Subjective Subjective Date of Service: 09/01/23 Reason For Visit: Agitation/HI Subjective Notes: Conditional Voluntary Medical Problems Affecting Mental Status: Yes (dementia) Interim History: 67 yo MWF who has no memory of having threatened to kill her - wouldn't hurt anyone reports excited to have visit today- denies any problems with medications or sleep - no negative thoughts Nursing reports patient visible on unit, flat affect- seems engaged in mileu today- Medication Compliance: Yes Side effects from medications: No Attending Groups: Intermittent Review of Systems Acute medical concerns: No Medical Review of Systems: unchanged Mental Status Exam Mental Status Exam Narrative: dressed in rey Patient Appearance: Disheveled Patient Orientation: Person, Place and Situation Level of Consciousness: Awake and Alert Patient Behavior: Appropriate, Cooperative and Good Eye Contact Mood Description: Calm Affect Description: Blunted Patient Cognition Impaired: Yes Ability to Follow Directions: Good Speech Pattern: Clear Hallucinations: None Thought Process: Intact and Goal Oriented Thought Content: positive for Intact, positive for [place] and positive for Poverty of Content Judgement: Poor Diagnostics Vital Signs (24Hr): Vital Signs - 24 hr 08/31/23 20:20 Temperature 97.9 F Pulse Rate 76 Blood Pressure 136/60 Pulse Oximetry 98 Oxygen Delivery Method Room Air BMI result Body Mass Index 35.9 Labs 08/14/23 03:42 08/14/23 03:42 Labs: Laboratory Results - last 48 hr 08/30/23 08/30/23 08/30/23 08:06 12:33 17:27 POC Glucose 224 H 125 H 276 H 08/30/23 08/31/23 08/31/23 20:52 08:29 12:14 POC Glucose 234 H 207 H 80 08/31/23 08/31/23 16:26 19:46 POC Glucose 184 H 137 H Medications Medications Current Medications Acetaminophen (Acetaminophen 325 Mg Tablet) 650 mg PO Q6H PRN PRN Reason: Headache/Pain Mild Scale (1-3) Last Admin: 08/21/23 13:35 Dose: 650 mg Al Hydroxide/Mg Hydroxide (Magnesium Hydrox/Alum Hydrox 30 Ml Oral.Susp) 30 ml PO Q6H PRN PRN Reason: Heartburn/Nausea Amlodipine Besylate (Amlodipine Besylate 5 Mg Tablet) 5 mg PO DAILY [facility]; Protocol Last Admin: 08/31/23 08:33 Dose: 5 mg Aspirin (Aspirin Enteric Coated 81 Mg Tablet.) 81 mg PO DAILY [facility] Last Admin: 08/31/23 08:32 Dose: 81 mg Atorvastatin Calcium (Atorvastatin Calcium 80 Mg Tablet) 80 mg PO DAILY [facility] Last Admin: 08/31/23 08:34 Dose: 80 mg Baclofen (Baclofen 10 Mg Tablet) 10 mg PO TID [facility] Last Admin: 08/31/23 21:18 Dose: 10 mg Donepezil HCl (Donepezil Hcl 5 Mg Tablet) 5 mg PO DAILY [facility] Last Admin: 08/31/23 08:34 Dose: 5 mg Fluticasone Propionate (Fluticasone Propionate Nasal 16 Gm [place]) 1 spray NOSTRIL-B BID [facility] Last Admin: 08/31/23 21:20 Dose: Not Given Glucose (Glucose Gel 15 Gm Gel..Gram.) 15 gm PO DAILY PRN PRN Reason: hypoglycemia Hydrochlorothiazide (Hydrochlorothiazide 12.5 Mg Tablet) 12.5 mg PO DAILY [facility]; Protocol Last Admin: 08/31/23 08:32 Dose: 12.5 mg Insulin Glargine (Insulin Glargine,Hum.Rec.Anlog 100 Unit/Ml 10 Ml Vial) 30 unit SUBCUT BEDTIME [facility] Last Admin: 08/31/23 21:17 Dose: 30 unit Insulin Human Lispro (Insulin Lispro 100 Unit/Ml 3 Ml Vial) 0 unit SUBCUT TIDAC [facility]; Protocol Last Admin: 08/31/23 16:52 Dose: 4 unit Lactase (Lactase Tablet) 1 tab PO TIDWM [facility] Last Admin: 08/31/23 16:51 Dose: 1 tab Loperamide HCl (Loperamide Hcl 2 Mg Capsule) 2 mg PO Q4H PRN PRN Reason: Diarrhea Last Admin: 08/18/23 11:24 Dose: 2 mg Loratadine (Loratadine 10 Mg Tablet) 10 mg PO DAILY [facility] Last Admin: 08/31/23 08:34 Dose: 10 mg Magnesium Hydroxide (Milk Of Magnesia 30 Ml Oral.Susp) 30 ml PO DAILY PRN PRN Reason: Constipation Metoprolol Succinate (Metoprolol Succinate Er 25 Mg Tab.Er.24h) 25 mg PO DAILY [facility]; Protocol Last Admin: 08/31/23 08:33 Dose: 25 mg Mirabegron (Mirabegron 25 Mg Tab.Er.24h) 25 mg PO DAILY [facility] Last Admin: 08/31/23 08:33 Dose: 25 mg Multivitamins/Vitamin C (Multivitamin Tablet) 1 tab PO DAILY [facility] Last Admin: 08/31/23 08:31 Dose: 1 tab Naproxen (Naproxen 250 Mg Tablet) 250 mg PO BID PRN PRN Reason: back pain Last Admin: 08/25/23 23:01 Dose: 250 mg Nicotine (Nicotine 21 Mg Patch.Td24) 21 mg TRANSDERMA DAILY PRN PRN Reason: smoking cessation Nicotine Polacrilex (Nicotine Polacrilex 2 Mg Gum) 4 mg BUCCAL Q2H PRN PRN Reason: Nicotine Cravings Nystatin (Nystatin Powder 15 Gm Bottle) 1 appl TOPICAL BID [facility]; Protocol Last Admin: 08/31/23 21:19 Dose: Not Given Olanzapine (Olanzapine 5 Mg Tablet) 5 mg PO TID PRN PRN Reason: agitation Omeprazole (Omeprazole 20 Mg Capsule.Dr) 20 mg PO BID@0630,1630 [facility] Last Admin: 09/01/23 06:25 Dose: 20 mg Quetiapine Fumarate (Quetiapine Fumarate 50 Mg Tablet) 50 mg PO BEDTIME [facility] Last Admin: 08/31/23 21:18 Dose: 50 mg Sitagliptin Phosphate (Sitagliptin Phosphate 25 Mg Tablet) 25 mg PO DAILY [facility] Last Admin: 08/31/23 13:56 Dose: 25 mg Trazodone HCl (Trazodone Hcl 50 Mg Tablet) 50 mg PO BEDTIME PRN PRN Reason: Insomnia Valsartan (Valsartan 80 Mg Tablet) 80 mg PO DAILY [facility]; Protocol Last Admin: 08/31/23 08:34 Dose: 80 mg Allergies Allergies Allergy/AdvReac Type Severity Reaction Status Date / Time Sulfa (Sulfonamide Allergy Severe DIFFICULTY Verified 12/05/22 18:20 Antibiotics) BREATHING [SULFA (SULFONAMIDE ANTIBIOTICS)] cephalexin [From KEFLEX] Allergy Intermediate RASH,HIVES Verified 12/05/22 18:20 amoxicillin [AMOXICILLIN] Allergy Unknown DENIES Verified 12/05/22 18:20 THIS ALLERGY 03/28/2018 penicillin V Allergy Unknown Unknown Verified 12/05/22 18:20 sumatriptan [From IMITREX] AdvReac Severe HEART Verified 12/05/22 18:20 PALPITATIONS topiramate [From TOPAMAX] AdvReac Severe AGITATION Verified 12/05/22 18:20 Assessment & Plan Assessment & Plan (1) Major neurocognitive disorder due to another medical condition: Status: Acute Code(s): F02.80 - Dementia in other diseases classified elsewhere, unspecified severity, without behavioral disturbance, psychotic disturbance, mood disturbance, and anxiety (2) Dementia: Qualifiers: Dementia behavioral or psychological symptom: with psychotic disturbance Dementia type: vascular dementia Status: Acute Code(s): F03.90 - Unspecified dementia, unspecified severity, without behavioral disturbance, psychotic disturbance, mood disturbance, and anxiety (3) Type 2 diabetes mellitus with unspecified complications: Status: Acute Code(s): E11.8 - Type 2 diabetes mellitus with unspecified complications Plan 08/15: continue home medications regimen for now. R/O UTI. get DM under better control. MoCA 25/, MCI. 08/16: appears to have UTI, gnrs. hospitalist consult for input/Tx. FSBS 200s-400s. continue to try to get glucose under better control. continue home meds regimen for now. 08/17: antibx for UTI. fecal incontinence in shower today, cognitive/memory deficits. may be placement case. continue current mgmt for now. 08/18: Start impdium and lactaid. Continue current management and treatment plan. 08/19: Continue current management and treatment plan. 08/20: ACLS completed by [facility] OT: scored 4.2, moderate impairment, 4-12 yo cognition, should not drive. continue current mgmt for now. remains focussed on her belief in her 's sexual encounter with her daughter. 08/21: irritable/angry edge today on being told she will not discharge until . incontinent last night. no insight into dementia, declining mental health referrals. continue current mgmt with plan to discharge home on , with collaboration of pt's . 08/22: appears worse than yesterday, insisting she will leave, standing by door with her things, becoming agitated and yelling when challenged. discharge canceled for safety concerns. continue current mgmt. may need to revoke CV and pursue commitment and/or guardianship. 08/23: more congenial today, less labile. 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 08/24: planning to invoke HCP and pursue placement of patient. no change in mgmt otherwise today. 08/25: HCP invoked yesterday. stable, no change in mgmt today. 08/26: no change in presentation. continue current mgmt. 08/27: no change in presentation. continue current mgmt. 08/28: no change in presentation. continue current mgmt. 08/29 continue tx. 08/30 no safe dispo for discharged. can't return to [facility]'s house based on protective services concerns of pt's 's safety. pt with cognitive impairments and requires assistance to safely live in the community. 08/31 continue tx. pending safe dispo. 09/01 CTP Reason for continued inpatient stay Substantial Risk for: inability to function and rapid decompensation Time Spent With Patient Time: Total time managing care of this patient today ____ minutes.
[2023-09-01 08:16] LABS: Glucose, Whole Blood 175 mg/dL (60-115)
[2023-09-01] MEDS: Valsartan 80 MG TABLET PO (08:24)
[2023-09-01] MEDS: hydroCHLOROthiazide 12.5 MG TABLET PO (08:24)
[2023-09-01] MEDS: SITagliptin Phosphate 25 MG TABLET PO (08:25)
[2023-09-01] MEDS: Donepezil HCl 5 MG TABLET PO (08:25)
[2023-09-01] MEDS: Atorvastatin Calcium 80 MG TABLET PO (08:25)
[2023-09-01] MEDS: Aspirin Enteric Coated 81 MG TABLET.DR PO (08:25)
[2023-09-01] MEDS: Metoprolol Succinate ER 25 MG TAB.ER.24H PO (08:25)
[2023-09-01] MEDS: Mirabegron 25 MG TAB.ER.24H PO (08:26)
[2023-09-01] MEDS: amLODIPine Besylate 5 MG TABLET PO (08:26)
[2023-09-01] MEDS: Baclofen 10 MG TABLET PO ×3 (08:26→21:59)
[2023-09-01] MEDS: Lactase TABLET 1 TAB PO ×3 (08:26→16:48)
[2023-09-01] MEDS: Loratadine 10 MG TABLET PO (08:27)
[2023-09-01] MEDS: Multivitamin TABLET 1 TAB PO (08:27)
[2023-09-01] MEDS: Insulin Lispro 100 UNIT/ML 3 ML VIAL SUBCUT ×3 (09:25→17:54)
[2023-09-01 12:51] LABS: Glucose, Whole Blood 198 mg/dL (60-115)
[2023-09-01 17:49] LABS: Glucose, Whole Blood 252 mg/dL (60-115)
[2023-09-01 21:43] LABS: Glucose, Whole Blood 188 mg/dL (60-115)
[2023-09-01 21:50] VITALS: BP 146/64; PULSE 86; RESP 18; TEMP 35.9; O2SAT 99
[2023-09-01] MEDS: QUEtiapine Fumarate 50 MG TABLET PO (21:59)
[2023-09-01] MEDS: Fluticasone Propionate Nasal 16 GM SPRAY 1 SPRAY NOSTRIL-B (22:00)
[2023-09-01] MEDS: Insulin Glargine,Hum.rec.anlog 100 UNIT/ML 10 ML VIAL 30 UNIT SUBCUT (22:01)
[2023-09-02 07:52] LABS: Glucose, Whole Blood 151 mg/dL (60-115)
[2023-09-02 08:00] VITALS: BP 138/63; PULSE 95; RESP 16; TEMP 36.1; O2SAT 96
[2023-09-02] MEDS: hydroCHLOROthiazide 12.5 MG TABLET PO (08:28)
[2023-09-02] MEDS: Donepezil HCl 5 MG TABLET PO (08:29)
[2023-09-02] MEDS: Aspirin Enteric Coated 81 MG TABLET.DR PO (08:29)
[2023-09-02] MEDS: Mirabegron 25 MG TAB.ER.24H PO (08:29)
[2023-09-02] MEDS: Loratadine 10 MG TABLET PO (08:30)
[2023-09-02] MEDS: Atorvastatin Calcium 80 MG TABLET PO (08:30)
[2023-09-02] MEDS: SITagliptin Phosphate 25 MG TABLET PO (08:30)
[2023-09-02] MEDS: Multivitamin TABLET 1 TAB PO (08:30)
[2023-09-02] MEDS: Metoprolol Succinate ER 25 MG TAB.ER.24H PO (08:30)
[2023-09-02] MEDS: amLODIPine Besylate 5 MG TABLET PO (08:30)
[2023-09-02] MEDS: Omeprazole 20 MG CAPSULE.DR PO ×2 (08:30→17:09)
[2023-09-02] MEDS: Lactase TABLET 1 TAB PO ×3 (08:31→17:09)
[2023-09-02] MEDS: Baclofen 10 MG TABLET PO ×3 (08:31→21:31)
[2023-09-02] MEDS: Valsartan 80 MG TABLET PO (08:31)
[2023-09-02] MEDS: Insulin Lispro 100 UNIT/ML 3 ML VIAL SUBCUT ×2 (08:59→18:03)
[2023-09-02 12:49] LABS: Glucose, Whole Blood 149 mg/dL (60-115)
--- NOTE | 2023-09-02 12:50 | P.PNPSI_ITS ---
Subjective Subjective Date of Service: 09/02/23 Reason For Visit: Agitation/HI Subjective Notes: Conditional Voluntary Interim History: Nursing reports decreased depression/anxiety- =that visible social on unit and taking meds, urinary frequency has briefs. Pt lying in bed, saying she is tired- but slept ok - Medication Compliance: Yes Side effects from medications: No Review of Systems Acute medical concerns: No Medical Review of Systems: unchanged Mental Status Exam Mental Status Exam Narrative: lying in bed in rey- fair eye contact Patient Orientation: Person, Place and Situation Level of Consciousness: Awake and Alert Patient Behavior: Cooperative and Passive Mood Description: Calm Affect Description: Blunted Patient Cognition Impaired: Yes Ability to Follow Directions: Fair Speech Pattern: Clear Thought Process: Intact and Goal Oriented Thought Content: positive for [place] Judgement: Fair Diagnostics Vital Signs (24Hr): Vital Signs - 24 hr 09/01/23 21:50 09/02/23 08:00 Temperature 96.6 F L 96.9 F Pulse Rate 86 95 Respiratory Rate 18 16 Blood Pressure 146/64 H 138/63 Pulse Oximetry 99 96 Oxygen Delivery Method Room Air Room Air BMI result Body Mass Index 35.9 Labs 08/14/23 03:42 08/14/23 03:42 Labs: Laboratory Results - last 48 hr 08/31/23 08/31/23 09/01/23 16:26 19:46 08:11 POC Glucose 184 H 137 H 175 H 09/01/23 09/01/23 09/01/23 12:46 17:46 21:39 POC Glucose 198 H 252 H 188 H 09/02/23 09/02/23 07:47 12:44 POC Glucose 151 H 149 H Medications Medications Current Medications Acetaminophen (Acetaminophen 325 Mg Tablet) 650 mg PO Q6H PRN PRN Reason: Headache/Pain Mild Scale (1-3) Last Admin: 08/21/23 13:35 Dose: 650 mg Al Hydroxide/Mg Hydroxide (Magnesium Hydrox/Alum Hydrox 30 Ml Oral.Susp) 30 ml PO Q6H PRN PRN Reason: Heartburn/Nausea Amlodipine Besylate (Amlodipine Besylate 5 Mg Tablet) 5 mg PO DAILY [facility]; Protocol Last Admin: 09/02/23 08:30 Dose: 5 mg Aspirin (Aspirin Enteric Coated 81 Mg Tablet.) 81 mg PO DAILY [facility] Last Admin: 09/02/23 08:29 Dose: 81 mg Atorvastatin Calcium (Atorvastatin Calcium 80 Mg Tablet) 80 mg PO DAILY [facility] Last Admin: 09/02/23 08:30 Dose: 80 mg Baclofen (Baclofen 10 Mg Tablet) 10 mg PO TID [facility] Last Admin: 09/02/23 08:31 Dose: 10 mg Donepezil HCl (Donepezil Hcl 5 Mg Tablet) 5 mg PO DAILY [facility] Last Admin: 09/02/23 08:29 Dose: 5 mg Fluticasone Propionate (Fluticasone Propionate Nasal 16 Gm [place]) 1 spray NOSTRIL-B BID [facility] Last Admin: 09/02/23 08:33 Dose: Not Given Glucose (Glucose Gel 15 Gm Gel..Gram.) 15 gm PO DAILY PRN PRN Reason: hypoglycemia Hydrochlorothiazide (Hydrochlorothiazide 12.5 Mg Tablet) 12.5 mg PO DAILY [facility]; Protocol Last Admin: 09/02/23 08:28 Dose: 12.5 mg Insulin Glargine (Insulin Glargine,Hum.Rec.Anlog 100 Unit/Ml 10 Ml Vial) 30 unit SUBCUT BEDTIME [facility] Last Admin: 09/01/23 22:01 Dose: 30 unit Insulin Human Lispro (Insulin Lispro 100 Unit/Ml 3 Ml Vial) 0 unit SUBCUT TIDAC [facility]; Protocol Last Admin: 09/02/23 08:59 Dose: 4 unit Lactase (Lactase Tablet) 1 tab PO TIDWM [facility] Last Admin: 09/02/23 08:31 Dose: 1 tab Loperamide HCl (Loperamide Hcl 2 Mg Capsule) 2 mg PO Q4H PRN PRN Reason: Diarrhea Last Admin: 08/18/23 11:24 Dose: 2 mg Loratadine (Loratadine 10 Mg Tablet) 10 mg PO DAILY [facility] Last Admin: 09/02/23 08:30 Dose: 10 mg Magnesium Hydroxide (Milk Of Magnesia 30 Ml Oral.Susp) 30 ml PO DAILY PRN PRN Reason: Constipation Metoprolol Succinate (Metoprolol Succinate Er 25 Mg Tab.Er.24h) 25 mg PO DAILY [facility]; Protocol Last Admin: 09/02/23 08:30 Dose: 25 mg Mirabegron (Mirabegron 25 Mg Tab.Er.24h) 25 mg PO DAILY [facility] Last Admin: 09/02/23 08:29 Dose: 25 mg Multivitamins/Vitamin C (Multivitamin Tablet) 1 tab PO DAILY [facility] Last Admin: 09/02/23 08:30 Dose: 1 tab Naproxen (Naproxen 250 Mg Tablet) 250 mg PO BID PRN PRN Reason: back pain Last Admin: 08/25/23 23:01 Dose: 250 mg Nicotine (Nicotine 21 Mg Patch.Td24) 21 mg TRANSDERMA DAILY PRN PRN Reason: smoking cessation Nicotine Polacrilex (Nicotine Polacrilex 2 Mg Gum) 4 mg BUCCAL Q2H PRN PRN Reason: Nicotine Cravings Nystatin (Nystatin Powder 15 Gm Bottle) 1 appl TOPICAL BID [facility]; Protocol Last Admin: 09/02/23 08:33 Dose: Not Given Olanzapine (Olanzapine 5 Mg Tablet) 5 mg PO TID PRN PRN Reason: agitation Omeprazole (Omeprazole 20 Mg Capsule.Dr) 20 mg PO BID@0630,1630 [facility] Last Admin: 09/02/23 08:30 Dose: 20 mg Quetiapine Fumarate (Quetiapine Fumarate 50 Mg Tablet) 50 mg PO BEDTIME [facility] Last Admin: 09/01/23 21:59 Dose: 50 mg Sitagliptin Phosphate (Sitagliptin Phosphate 25 Mg Tablet) 25 mg PO DAILY [facility] Last Admin: 09/02/23 08:30 Dose: 25 mg Trazodone HCl (Trazodone Hcl 50 Mg Tablet) 50 mg PO BEDTIME PRN PRN Reason: Insomnia Valsartan (Valsartan 80 Mg Tablet) 80 mg PO DAILY [facility]; Protocol Last Admin: 09/02/23 08:31 Dose: 80 mg Allergies Allergies Allergy/AdvReac Type Severity Reaction Status Date / Time Sulfa (Sulfonamide Allergy Severe DIFFICULTY Verified 12/05/22 18:20 Antibiotics) BREATHING [SULFA (SULFONAMIDE ANTIBIOTICS)] cephalexin [From KEFLEX] Allergy Intermediate RASH,HIVES Verified 12/05/22 18:20 amoxicillin [AMOXICILLIN] Allergy Unknown DENIES Verified 12/05/22 18:20 THIS ALLERGY 03/28/2018 penicillin V Allergy Unknown Unknown Verified 12/05/22 18:20 sumatriptan [From IMITREX] AdvReac Severe HEART Verified 12/05/22 18:20 PALPITATIONS topiramate [From TOPAMAX] AdvReac Severe AGITATION Verified 12/05/22 18:20 Assessment & Plan Assessment & Plan (1) Major neurocognitive disorder due to another medical condition: Status: Acute Code(s): F02.80 - Dementia in other diseases classified elsewhere, unspecified severity, without behavioral disturbance, psychotic disturbance, mood disturbance, and anxiety (2) Dementia: Qualifiers: Dementia behavioral or psychological symptom: with psychotic disturbance Dementia type: vascular dementia Status: Acute Code(s): F03.90 - Unspecified dementia, unspecified severity, without behavioral disturbance, psychotic disturbance, mood disturbance, and anxiety (3) Type 2 diabetes mellitus with unspecified complications: Status: Acute Code(s): E11.8 - Type 2 diabetes mellitus with unspecified complications Plan 08/15: continue home medications regimen for now. R/O UTI. get DM under better control. MoCA 25/30, MCI. 08/16: appears to have UTI, gnrs. hospitalist consult for input/Tx. FSBS 200s-400s. continue to try to get glucose under better control. continue home meds regimen for now. 08/17: antibx for UTI. fecal incontinence in shower today, cognitive/memory deficits. may be placement case. continue current mgmt for now. 08/18: Start impdium and lactaid. Continue current management and treatment plan. 08/19: Continue current management and treatment plan. 08/20: ACLS completed by [facility] OT: scored 4.2, moderate impairment, 4-12 yo cognition, should not drive. continue current mgmt for now. remains focussed on her belief in her 's sexual encounter with her daughter. 08/21: irritable/angry edge today on being told she will not discharge until . incontinent last night. no insight into dementia, declining mental health referrals. continue current mgmt with plan to discharge home on , with collaboration of pt's . 08/22: appears worse than yesterday, insisting she will leave, standing by door with her things, becoming agitated and yelling when challenged. discharge canceled for safety concerns. continue current mgmt. may need to revoke CV and pursue commitment and/or guardianship. 08/23: more congenial today, less labile. 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 08/24: planning to invoke HCP and pursue placement of patient. no change in mgmt otherwise today. 12/23: HCP invoked yesterday. stable, no change in mgmt today. 08/26: no change in presentation. continue current mgmt. 08/27: no change in presentation. continue current mgmt. 08/28: no change in presentation. continue current mgmt. 08/29 continue tx. 08/30 no safe dispo for discharged. can't return [facility] based on protective services concerns of pt's 's safety. pt with cognitive impairments and requires assistance to safely live in the community. 08/31 continue tx. pending safe dispo. 09/01 CTP 09/02 CTP Reason for continued inpatient stay Substantial Risk for: med/psych decompensation Time Spent With Patient Time: Total time managing care of this patient today ____ minutes.
[2023-09-02 17:44] LABS: Glucose, Whole Blood 215 mg/dL (60-115)
[2023-09-02 19:45] VITALS: BP 130/60; PULSE 77; RESP 16; TEMP 36.3; O2SAT 99
[2023-09-02 21:09] LABS: Glucose, Whole Blood 260 mg/dL (60-115)
[2023-09-02] MEDS: QUEtiapine Fumarate 50 MG TABLET PO (21:31)
[2023-09-02] MEDS: Insulin Glargine,Hum.rec.anlog 100 UNIT/ML 10 ML VIAL 30 UNIT SUBCUT (21:32)
[2023-09-02] MEDS: Fluticasone Propionate Nasal 16 GM SPRAY 1 SPRAY NOSTRIL-B (21:33)
[2023-09-03 06:00] VITALS: BP 148/65; PULSE 78; RESP 18; TEMP 35.9; O2SAT 95
[2023-09-03 07:56] LABS: Glucose, Whole Blood 92 mg/dL (60-115)
[2023-09-03] MEDS: Omeprazole 20 MG CAPSULE.DR PO ×2 (08:39→16:17)
[2023-09-03] MEDS: Atorvastatin Calcium 80 MG TABLET PO (08:39)
[2023-09-03] MEDS: Loratadine 10 MG TABLET PO (08:39)
[2023-09-03] MEDS: Multivitamin TABLET 1 TAB PO (08:40)
[2023-09-03] MEDS: Valsartan 80 MG TABLET PO (08:40)
[2023-09-03] MEDS: Donepezil HCl 5 MG TABLET PO (08:40)
[2023-09-03] MEDS: Aspirin Enteric Coated 81 MG TABLET.DR PO (08:40)
[2023-09-03] MEDS: SITagliptin Phosphate 25 MG TABLET PO (08:41)
[2023-09-03] MEDS: Lactase TABLET 1 TAB PO ×3 (08:41→17:52)
[2023-09-03] MEDS: Baclofen 10 MG TABLET PO ×3 (08:41→20:33)
[2023-09-03] MEDS: amLODIPine Besylate 5 MG TABLET PO (08:41)
[2023-09-03] MEDS: Metoprolol Succinate ER 25 MG TAB.ER.24H PO (08:41)
[2023-09-03] MEDS: hydroCHLOROthiazide 12.5 MG TABLET PO (08:42)
[2023-09-03] MEDS: Mirabegron 25 MG TAB.ER.24H PO (08:42)
[2023-09-03 12:32] LABS: Glucose, Whole Blood 133 mg/dL (60-115)
--- NOTE | 2023-09-03 12:40 | P.PNPSI_ITS ---
Subjective Subjective Date of Service: 09/03/23 Reason For Visit: Agitation/HI Subjective Notes: Conditional Voluntary Medical Problems Affecting Mental Status: Yes (dementia) Interim History: 67 yo looks down today, maybe dawning on her not going home- Nursing reports angry this am, irritable- took meds- accused a staff of taking her notebook/journal Doesn't know if is coming today- Medication Compliance: Yes Side effects from medications: No Attending Groups: Intermittent Review of Systems Acute medical concerns: No Medical Review of Systems: unchanged Mental Status Exam Mental Status Exam Narrative: dressed in rey Patient Appearance: Unkempt Patient Orientation: Person and Place Level of Consciousness: Awake and Alert Patient Behavior: Passive Mood Description: Suspicious Affect Description: Labile and Blunted Patient Cognition Impaired: Yes Ability to Follow Directions: Fair Speech Pattern: Clear and Impoverished Delusions: Paranoid Ideation Thought Process: Intact and Goal Oriented Thought Content: positive for [place] and positive for [place] of Content Judgement: Poor Diagnostics Vital Signs (24Hr): Vital Signs - 24 hr 09/02/23 19:45 09/03/23 06:00 Temperature 97.4 F 96.7 F L Pulse Rate 77 78 Respiratory Rate 16 18 Blood Pressure 130/60 148/65 H Pulse Oximetry 99 95 Oxygen Delivery Method Room Air Room Air BMI result Body Mass Index 35.9 Labs 08/14/23 03:42 08/14/23 03:42 Labs: Laboratory Results - last 48 hr 09/01/23 09/01/23 09/01/23 12:46 17:46 21:39 POC Glucose 198 H 252 H 188 H 09/02/23 09/02/23 09/02/23 07:47 12:44 17:40 POC Glucose 151 H 149 H 215 H 09/02/23 09/03/23 09/03/23 21:05 07:50 12:28 POC Glucose 260 H 92 133 H Medications Medications Current Medications Acetaminophen (Acetaminophen 325 Mg Tablet) 650 mg PO Q6H PRN PRN Reason: Headache/Pain Mild Scale (1-3) Last Admin: 08/21/23 13:35 Dose: 650 mg Al Hydroxide/Mg Hydroxide (Magnesium Hydrox/Alum Hydrox 30 Ml Oral.Susp) 30 ml PO Q6H PRN PRN Reason: Heartburn/Nausea Amlodipine Besylate (Amlodipine Besylate 5 Mg Tablet) 5 mg PO DAILY [facility]; Protocol Last Admin: 09/03/23 08:41 Dose: 5 mg Aspirin (Aspirin Enteric Coated 81 Mg Tablet.Dr) 81 mg PO DAILY [facility] Last Admin: 09/03/23 08:40 Dose: 81 mg Atorvastatin Calcium (Atorvastatin Calcium 80 Mg Tablet) 80 mg PO DAILY [facility] Last Admin: 09/03/23 08:39 Dose: 80 mg Baclofen (Baclofen 10 Mg Tablet) 10 mg PO TID [facility] Last Admin: 09/03/23 08:41 Dose: 10 mg Donepezil HCl (Donepezil Hcl 5 Mg Tablet) 5 mg PO DAILY [facility] Last Admin: 09/03/23 08:40 Dose: 5 mg Fluticasone Propionate (Fluticasone Propionate Nasal 16 Gm [place]) 1 spray NOSTRIL-B BID [facility] Last Admin: 09/03/23 08:51 Dose: Not Given Glucose (Glucose Gel 15 Gm Gel..Gram.) 15 gm PO DAILY PRN PRN Reason: hypoglycemia Hydrochlorothiazide (Hydrochlorothiazide 12.5 Mg Tablet) 12.5 mg PO DAILY [facility]; Protocol Last Admin: 09/03/23 08:42 Dose: 12.5 mg Insulin Glargine (Insulin Glargine,Hum.Rec.Anlog 100 Unit/Ml 10 Ml Vial) 30 unit SUBCUT BEDTIME [facility] Last Admin: 09/02/23 21:32 Dose: 30 unit Insulin Human Lispro (Insulin Lispro 100 Unit/Ml 3 Ml Vial) 0 unit SUBCUT TIDAC [facility]; Protocol Last Admin: 09/03/23 08:16 Dose: Not Given Lactase (Lactase Tablet) 1 tab PO TIDWM [facility] Last Admin: 09/03/23 08:41 Dose: 1 tab Loperamide HCl (Loperamide Hcl 2 Mg Capsule) 2 mg PO Q4H PRN PRN Reason: Diarrhea Last Admin: 08/18/23 11:24 Dose: 2 mg Loratadine (Loratadine 10 Mg Tablet) 10 mg PO DAILY [facility] Last Admin: 09/03/23 08:39 Dose: 10 mg Magnesium Hydroxide (Milk Of Magnesia 30 Ml Oral.Susp) 30 ml PO DAILY PRN PRN Reason: Constipation Metoprolol Succinate (Metoprolol Succinate Er 25 Mg Tab.Er.24h) 25 mg PO DAILY [facility]; Protocol Last Admin: 09/03/23 08:41 Dose: 25 mg Mirabegron (Mirabegron 25 Mg Tab.Er.24h) 25 mg PO DAILY [facility] Last Admin: 09/03/23 08:42 Dose: 25 mg Multivitamins/Vitamin C (Multivitamin Tablet) 1 tab PO DAILY [facility] Last Admin: 09/03/23 08:40 Dose: 1 tab Naproxen (Naproxen 250 Mg Tablet) 250 mg PO BID PRN PRN Reason: back pain Last Admin: 08/25/23 23:01 Dose: 250 mg Nicotine (Nicotine 21 Mg Patch.Td24) 21 mg TRANSDERMA DAILY PRN PRN Reason: smoking cessation Nicotine Polacrilex (Nicotine Polacrilex 2 Mg Gum) 4 mg BUCCAL Q2H PRN PRN Reason: Nicotine Cravings Nystatin (Nystatin Powder 15 Gm Bottle) 1 appl TOPICAL BID [facility]; Protocol Last Admin: 09/03/23 08:52 Dose: Not Given Olanzapine (Olanzapine 5 Mg Tablet) 5 mg PO TID PRN PRN Reason: agitation Omeprazole (Omeprazole 20 Mg Capsule.Dr) 20 mg PO BID@0630,1630 [facility] Last Admin: 09/03/23 08:39 Dose: 20 mg Quetiapine Fumarate (Quetiapine Fumarate 50 Mg Tablet) 50 mg PO BEDTIME [facility] Last Admin: 09/02/23 21:31 Dose: 50 mg Sitagliptin Phosphate (Sitagliptin Phosphate 25 Mg Tablet) 25 mg PO DAILY [facility] Last Admin: 09/03/23 08:41 Dose: 25 mg Trazodone HCl (Trazodone Hcl 50 Mg Tablet) 50 mg PO BEDTIME PRN PRN Reason: Insomnia Valsartan (Valsartan 80 Mg Tablet) 80 mg PO DAILY [facility]; Protocol Last Admin: 09/03/23 08:40 Dose: 80 mg Allergies Allergies Allergy/AdvReac Type Severity Reaction Status Date / Time Sulfa (Sulfonamide Allergy Severe DIFFICULTY Verified 12/05/22 18:20 Antibiotics) BREATHING [SULFA (SULFONAMIDE ANTIBIOTICS)] cephalexin [From KEFLEX] Allergy Intermediate RASH,HIVES Verified 12/05/22 18:20 amoxicillin [AMOXICILLIN] Allergy Unknown DENIES Verified 12/05/22 18:20 THIS ALLERGY 03/28/2018 penicillin V Allergy Unknown Unknown Verified 12/05/22 18:20 sumatriptan [From IMITREX] AdvReac Severe HEART Verified 12/05/22 18:20 PALPITATIONS topiramate [From TOPAMAX] AdvReac Severe AGITATION Verified 12/05/22 18:20 Assessment & Plan Assessment & Plan (1) Major neurocognitive disorder due to another medical condition: Status: Acute Code(s): F02.80 - Dementia in other diseases classified elsewhere, unspecified severity, without behavioral disturbance, psychotic disturbance, mood disturbance, and anxiety (2) Dementia: Qualifiers: Dementia behavioral or psychological symptom: with psychotic disturbance Dementia type: vascular dementia Status: Acute Code(s): F03.90 - Unspecified dementia, unspecified severity, without behavioral disturbance, psychotic disturbance, mood disturbance, and anxiety (3) Type 2 diabetes mellitus with unspecified complications: Status: Acute Code(s): E11.8 - Type 2 diabetes mellitus with unspecified complications Plan 08/15: continue home medications regimen for now. R/O UTI. get DM under better control. MoCA 25/30, MCI. 08/16: appears to have UTI, gnrs. hospitalist consult for input/Tx. FSBS 200s-400s. continue to try to get glucose under better control. continue home meds regimen for now. 08/17: antibx for UTI. fecal incontinence in shower today, cognitive/memory deficits. may be placement case. continue current mgmt for now. 08/18: Start impdium and lactaid. Continue current management and treatment plan. 08/19: Continue current management and treatment plan. 08/20: ACLS completed by [facility] OT: scored 4.2, moderate impairment, 4-12 yo cognition, should not drive. continue current mgmt for now. remains focussed on her belief in her 's sexual encounter with her daughter. 08/21: irritable/angry edge today on being told she will not discharge until . incontinent last night. no insight into dementia, declining mental health referrals. continue current mgmt with plan to discharge home on , with collaboration of pt's . 08/22: appears worse than yesterday, insisting she will leave, standing by door with her things, becoming agitated and yelling when challenged. discharge canceled for safety concerns. continue current mgmt. may need to revoke CV and pursue commitment and/or guardianship. 08/23: more congenial today, less labile. 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 08/24: planning to invoke HCP and pursue placement of patient. no change in mgmt otherwise today. 08/25: HCP invoked yesterday. stable, no change in mgmt today. 08/26: no change in presentation. continue current mgmt. 08/27: no change in presentation. continue current mgmt. 08/28: no change in presentation. continue current mgmt. 08/29 continue tx. 08/30 no safe dispo for discharged. can't return [facility] based on protective services concerns of pt's 's safety. pt with cognitive impairments and requires assistance to safely live in the community. 08/31 continue tx. pending safe dispo. 09/01 CTP 09/02 CTP 09/03/23- paranoid, irritable- CTP Reason for continued inpatient stay Substantial Risk for: harm to others and rapid decompensation Time Spent With Patient Time: Total time managing care of this patient today ____ minutes.
[2023-09-03 17:48] LABS: Glucose, Whole Blood 205 mg/dL (60-115)
[2023-09-03] MEDS: Insulin Lispro 100 UNIT/ML 3 ML VIAL SUBCUT (17:52)
[2023-09-03 19:55] VITALS: BP 122/59; PULSE 73; RESP 18; TEMP 36.2; O2SAT 98
[2023-09-03 20:25] LABS: Glucose, Whole Blood 253 mg/dL (60-115)
[2023-09-03] MEDS: Insulin Glargine,Hum.rec.anlog 100 UNIT/ML 10 ML VIAL 30 UNIT SUBCUT (20:32)
[2023-09-03] MEDS: QUEtiapine Fumarate 50 MG TABLET PO (20:33)
[2023-09-03] MEDS: Fluticasone Propionate Nasal 16 GM SPRAY 1 SPRAY NOSTRIL-B (20:37)
[2023-09-03] MEDS: Nystatin Powder 15 GM BOTTLE 1 APPL TOPICAL (20:37)
--- NOTE | 2023-09-04 05:04 | PC.NURSE ---
Natalia is pleasant and cooperative, social with select peers visible on the unit until 2100 I'm just really tired of sitting there. abdominal rash appears resolved. patient denies suicidal/homicidal ideation, depression/anxiety, and auditory/visual hallucinations. 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
[2023-09-04] MEDS: Omeprazole 20 MG CAPSULE.DR PO ×2 (07:02→18:21)
[2023-09-04 07:20] VITALS: BP 144/65; PULSE 71; RESP 16; TEMP 36.3; O2SAT 96
[2023-09-04 08:19] LABS: Glucose, Whole Blood 163 mg/dL (60-115)
[2023-09-04] MEDS: Insulin Lispro 100 UNIT/ML 3 ML VIAL SUBCUT ×3 (08:57→18:21)
[2023-09-04] MEDS: Multivitamin TABLET 1 TAB PO (08:59)
[2023-09-04] MEDS: Mirabegron 25 MG TAB.ER.24H PO (08:59)
[2023-09-04] MEDS: Atorvastatin Calcium 80 MG TABLET PO (08:59)
[2023-09-04] MEDS: Donepezil HCl 5 MG TABLET PO (08:59)
[2023-09-04] MEDS: amLODIPine Besylate 5 MG TABLET PO (08:59)
[2023-09-04] MEDS: hydroCHLOROthiazide 12.5 MG TABLET PO (08:59)
[2023-09-04] MEDS: Metoprolol Succinate ER 25 MG TAB.ER.24H PO (08:59)
[2023-09-04] MEDS: Baclofen 10 MG TABLET PO ×3 (08:59→21:40)
[2023-09-04] MEDS: Loratadine 10 MG TABLET PO (08:59)
[2023-09-04] MEDS: Valsartan 80 MG TABLET PO (08:59)
[2023-09-04] MEDS: Aspirin Enteric Coated 81 MG TABLET.DR PO (09:00)
[2023-09-04] MEDS: Lactase TABLET 1 TAB PO ×3 (09:00→18:21)
[2023-09-04] MEDS: SITagliptin Phosphate 25 MG TABLET PO (09:00)
[2023-09-04] MEDS: Fluticasone Propionate Nasal 16 GM SPRAY 1 SPRAY NOSTRIL-B ×2 (09:18→21:43)
[2023-09-04 12:19] LABS: Glucose, Whole Blood 171 mg/dL (60-115)
--- NOTE | 2023-09-04 15:49 | HO.PSYCHPN ---
Subjective Subjective Date of Service: 09/04/23 Reason For Visit: Agitation/HI Interim History: calm, cooperative. requesting discharge. no questions or complaints otherwise. MD attempted to engage in discussion re 3-day notice process, pt was unable to take in, rationally manipulate, or retain information. per staff, accused staff of reading and stealing her journal over the weekend. Mental Status Exam Mental Status Exam Narrative: adequately dressed and groomed, cooperative, no PMA/PMR. speech nml rate, amount, loudness, tone, latency. thoughts linear and illogical. affect constricted, normo-intense, mod-labile. mood i feel fine. no SI/SIBI/HI/AVH expressed. Diagnostics Vital Signs (24Hr): Vital Signs - 24 hr 09/03/23 19:55 09/04/23 07:20 Temperature 97.2 F 97.4 F Pulse Rate 73 71 Respiratory Rate 18 16 Blood Pressure 122/59 L 144/65 H Pulse Oximetry 98 96 Oxygen Delivery Method Room Air Room Air BMI result Body Mass Index 35.9 Labs 08/14/23 03:42 08/14/23 03:42 Labs: Laboratory Results - last 48 hr 09/02/23 09/02/23 09/03/23 17:40 21:05 07:50 POC Glucose 215 H 260 H 92 09/03/23 09/03/23 09/03/23 12:28 17:43 20:18 POC Glucose 133 H 205 H 253 H 09/04/23 09/04/23 08:14 12:15 POC Glucose 163 H 171 H Medications Medications Current Medications Acetaminophen (Acetaminophen 325 Mg Tablet) 650 mg PO Q6H PRN PRN Reason: Headache/Pain Mild Scale (1-3) Last Admin: 08/21/23 13:35 Dose: 650 mg Al Hydroxide/Mg Hydroxide (Magnesium Hydrox/Alum Hydrox 30 Ml Oral.Susp) 30 ml PO Q6H PRN PRN Reason: Heartburn/Nausea Amlodipine Besylate (Amlodipine Besylate 5 Mg Tablet) 5 mg PO DAILY [facility]; Protocol Last Admin: 09/04/23 08:59 Dose: 5 mg Aspirin (Aspirin Enteric Coated 81 Mg Tablet.) 81 mg PO DAILY [facility] Last Admin: 09/04/23 09:00 Dose: 81 mg Atorvastatin Calcium (Atorvastatin Calcium 80 Mg Tablet) 80 mg PO DAILY [facility] Last Admin: 09/04/23 08:59 Dose: 80 mg Baclofen (Baclofen 10 Mg Tablet) 10 mg PO TID [facility] Last Admin: 09/04/23 08:59 Dose: 10 mg Donepezil HCl (Donepezil Hcl 5 Mg Tablet) 5 mg PO DAILY [facility] Last Admin: 09/04/23 08:59 Dose: 5 mg Fluticasone Propionate (Fluticasone Propionate Nasal 16 Gm [place]) 1 spray NOSTRIL-B BID [facility] Last Admin: 09/04/23 09:18 Dose: 1 spray Glucose (Glucose Gel 15 Gm Gel..Gram.) 15 gm PO DAILY PRN PRN Reason: hypoglycemia Hydrochlorothiazide (Hydrochlorothiazide 12.5 Mg Tablet) 12.5 mg PO DAILY [facility]; Protocol Last Admin: 09/04/23 08:59 Dose: 12.5 mg Insulin Glargine (Insulin Glargine,Hum.Rec.Anlog 100 Unit/Ml 10 Ml Vial) 30 unit SUBCUT BEDTIME [facility] Last Admin: 09/03/23 20:32 Dose: 20 unit Insulin Human Lispro (Insulin Lispro 100 Unit/Ml 3 Ml Vial) 0 unit SUBCUT TIDAC [facility]; Protocol Last Admin: 09/04/23 12:41 Dose: 1 unit Lactase (Lactase Tablet) 1 tab PO TIDWM [facility] Last Admin: 09/04/23 12:41 Dose: 1 tab Loperamide HCl (Loperamide Hcl 2 Mg Capsule) 2 mg PO Q4H PRN PRN Reason: Diarrhea Last Admin: 08/18/23 11:24 Dose: 2 mg Loratadine (Loratadine 10 Mg Tablet) 10 mg PO DAILY [facility] Last Admin: 09/04/23 08:59 Dose: 10 mg Magnesium Hydroxide (Milk Of Magnesia 30 Ml Oral.Susp) 30 ml PO DAILY PRN PRN Reason: Constipation Metoprolol Succinate (Metoprolol Succinate Er 25 Mg Tab.Er.24h) 25 mg PO DAILY [facility]; Protocol Last Admin: 09/04/23 08:59 Dose: 25 mg Mirabegron (Mirabegron 25 Mg Tab.Er.24h) 25 mg PO DAILY [facility] Last Admin: 09/04/23 08:59 Dose: 25 mg Multivitamins/Vitamin C (Multivitamin Tablet) 1 tab PO DAILY [facility] Last Admin: 09/04/23 08:59 Dose: 1 tab Naproxen (Naproxen 250 Mg Tablet) 250 mg PO BID PRN PRN Reason: back pain Last Admin: 08/25/23 23:01 Dose: 250 mg Nicotine (Nicotine 21 Mg Patch.Td24) 21 mg TRANSDERMA DAILY PRN PRN Reason: smoking cessation Nicotine Polacrilex (Nicotine Polacrilex 2 Mg Gum) 4 mg BUCCAL Q2H PRN PRN Reason: Nicotine Cravings Nystatin (Nystatin Powder 15 Gm Bottle) 1 appl TOPICAL BID [facility]; Protocol Last Admin: 09/04/23 09:02 Dose: Not Given Olanzapine (Olanzapine 5 Mg Tablet) 5 mg PO TID PRN PRN Reason: agitation Omeprazole (Omeprazole 20 Mg Capsule.Dr) 20 mg PO BID@0630,1630 [facility] Last Admin: 09/04/23 07:02 Dose: 20 mg Quetiapine Fumarate (Quetiapine Fumarate 50 Mg Tablet) 50 mg PO BEDTIME [facility] Last Admin: 09/03/23 20:33 Dose: 50 mg Sitagliptin Phosphate (Sitagliptin Phosphate 25 Mg Tablet) 25 mg PO DAILY [facility] Last Admin: 09/04/23 09:00 Dose: 25 mg Trazodone HCl (Trazodone Hcl 50 Mg Tablet) 50 mg PO BEDTIME PRN PRN Reason: Insomnia Valsartan (Valsartan 80 Mg Tablet) 80 mg PO DAILY [facility]; Protocol Last Admin: 09/04/23 08:59 Dose: 80 mg Allergies Allergies Allergy/AdvReac Type Severity Reaction Status Date / Time Sulfa (Sulfonamide Allergy Severe DIFFICULTY Verified 12/05/22 18:20 Antibiotics) BREATHING [SULFA (SULFONAMIDE ANTIBIOTICS)] cephalexin [From KEFLEX] Allergy Intermediate RASH,HIVES Verified 12/05/22 18:20 amoxicillin [AMOXICILLIN] Allergy Unknown DENIES Verified 12/05/22 18:20 THIS ALLERGY 03/28/2018 penicillin V Allergy Unknown Unknown Verified 12/05/22 18:20 sumatriptan [From IMITREX] AdvReac Severe HEART Verified 12/05/22 18:20 PALPITATIONS topiramate [From TOPAMAX] AdvReac Severe AGITATION Verified 12/05/22 18:20 Assessment & Plan Assessment & Plan (1) Major neurocognitive disorder due to another medical condition: Status: Acute Code(s): F02.80 - Dementia in other diseases classified elsewhere, unspecified severity, without behavioral disturbance, psychotic disturbance, mood disturbance, and anxiety (2) Dementia: Qualifiers: Dementia type: vascular dementia Dementia behavioral or psychological symptom: with psychotic disturbance Status: Acute Code(s): F03.90 - Unspecified dementia, unspecified severity, without behavioral disturbance, psychotic disturbance, mood disturbance, and anxiety (3) Type 2 diabetes mellitus with unspecified complications: Status: Acute Code(s): E11.8 - Type 2 diabetes mellitus with unspecified complications Plan 08/15: continue home medications regimen for now. R/O UTI. get DM under better control. MoCA , MCI. 08/16: appears to have UTI, gnrs. hospitalist consult for input/Tx. FSBS 200s-400s. continue to try to get glucose under better control. continue home meds regimen for now. 08/17: antibx for UTI. fecal incontinence in shower today, cognitive/memory deficits. may be placement case. continue current mgmt for now. 08/18: Start impdium and lactaid. Continue current management and treatment plan. 08/19: Continue current management and treatment plan. 08/20: ACLS completed by [facility] OT: scored 4.2, moderate impairment, 4-12 yo cognition, should not drive. continue current mgmt for now. remains focussed on her belief in her 's sexual encounter with her daughter. 08/21: irritable/angry edge today on being told she will not discharge until . incontinent last night. no insight into dementia, declining mental health referrals. continue current mgmt with plan to discharge home on , with collaboration of pt's . 08/22: appears worse than yesterday, insisting she will leave, standing by door with her things, becoming agitated and yelling when challenged. discharge canceled for safety concerns. continue current mgmt. may need to revoke CV and pursue commitment and/or guardianship. 08/23: more congenial today, less labile. 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 08/24: planning to invoke HCP and pursue placement of patient. no change in mgmt otherwise today. 08/25: HCP invoked yesterday. stable, no change in mgmt today. 08/26: no change in presentation. continue current mgmt. 08/27: no change in presentation. continue current mgmt. 08/28: no change in presentation. continue current mgmt. 08/29 continue tx. 08/30 no safe dispo for discharged. can't return to [facility] based on protective services concerns of pt's 's safety. pt with cognitive impairments and requires assistance to safely live in the community. 08/31 continue tx. pending safe dispo. 09/01 CTP 09/02 CTP 09/03/23- paranoid, irritable- CTP 09/04: continue current mgmt. hearing scheduled for sunday. Reason for continued inpatient stay Substantial Risk for: harm to others, inability to function and rapid decompensation Time Spent With Patient Time: Total time managing care of this patient today __35__ minutes.
[2023-09-04 17:25] LABS: Glucose, Whole Blood 169 mg/dL (60-115)
[2023-09-04 20:15] VITALS: BP 119/59; PULSE 70; RESP 18; TEMP 35.9; O2SAT 97
[2023-09-04 20:59] LABS: Glucose, Whole Blood 186 mg/dL (60-115)
[2023-09-04] MEDS: Insulin Glargine,Hum.rec.anlog 100 UNIT/ML 10 ML VIAL 30 UNIT SUBCUT (21:40)
[2023-09-04] MEDS: QUEtiapine Fumarate 50 MG TABLET PO (21:40)
[2023-09-05 07:00] VITALS: BP 116/57; PULSE 76; RESP 14; TEMP 36.4; O2SAT 95
[2023-09-05] MEDS: Baclofen 10 MG TABLET PO ×3 (09:07→21:35)
[2023-09-05] MEDS: Atorvastatin Calcium 80 MG TABLET PO (09:08)
[2023-09-05] MEDS: Omeprazole 20 MG CAPSULE.DR PO ×2 (09:08→15:33)
[2023-09-05] MEDS: Valsartan 80 MG TABLET PO (09:08)
[2023-09-05] MEDS: Lactase TABLET 1 TAB PO ×3 (09:08→17:38)
[2023-09-05] MEDS: amLODIPine Besylate 5 MG TABLET PO (09:08)
[2023-09-05] MEDS: Metoprolol Succinate ER 25 MG TAB.ER.24H PO (09:08)
[2023-09-05] MEDS: Mirabegron 25 MG TAB.ER.24H PO (09:08)
[2023-09-05] MEDS: Loratadine 10 MG TABLET PO (09:09)
[2023-09-05] MEDS: SITagliptin Phosphate 25 MG TABLET PO (09:09)
[2023-09-05] MEDS: Donepezil HCl 5 MG TABLET PO (09:09)
[2023-09-05] MEDS: Aspirin Enteric Coated 81 MG TABLET.DR PO (09:09)
[2023-09-05] MEDS: hydroCHLOROthiazide 12.5 MG TABLET PO (09:09)
[2023-09-05] MEDS: Fluticasone Propionate Nasal 16 GM SPRAY 1 SPRAY NOSTRIL-B ×2 (09:11→22:07)
[2023-09-05 09:14] LABS: Glucose, Whole Blood 117 mg/dL (60-115)
[2023-09-05] MEDS: Insulin Lispro 100 UNIT/ML 3 ML VIAL SUBCUT ×2 (12:51→17:38)
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
[2023-09-05 18:00] VITALS: BP 128/59; PULSE 74; RESP 18; TEMP 36.3; O2SAT 98
[2023-09-05] MEDS: Insulin Glargine,Hum.rec.anlog 100 UNIT/ML 10 ML VIAL 30 UNIT SUBCUT (21:33)
[2023-09-05] MEDS: QUEtiapine Fumarate 50 MG TABLET PO (21:35)
[2023-09-06] MEDS: Omeprazole 20 MG CAPSULE.DR PO ×2 (06:21→18:12)
[2023-09-06 07:00] VITALS: BMI 36.0
[2023-09-06 08:00] VITALS: BP 110/60; PULSE 71; RESP 14; TEMP 36.3; O2SAT 96
[2023-09-06] MEDS: hydroCHLOROthiazide 12.5 MG TABLET PO (09:32)
[2023-09-06] MEDS: Mirabegron 25 MG TAB.ER.24H PO (09:33)
[2023-09-06] MEDS: amLODIPine Besylate 5 MG TABLET PO (09:33)
[2023-09-06] MEDS: Baclofen 10 MG TABLET PO ×3 (09:33→20:50)
[2023-09-06] MEDS: Metoprolol Succinate ER 25 MG TAB.ER.24H PO (09:33)
[2023-09-06] MEDS: Valsartan 80 MG TABLET PO (09:33)
[2023-09-06] MEDS: SITagliptin Phosphate 25 MG TABLET PO (09:33)
[2023-09-06] MEDS: Lactase TABLET 1 TAB PO ×3 (09:33→18:12)
[2023-09-06] MEDS: Aspirin Enteric Coated 81 MG TABLET.DR PO (09:34)
[2023-09-06] MEDS: Fluticasone Propionate Nasal 16 GM SPRAY 1 SPRAY NOSTRIL-B ×2 (09:36→20:50)
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
[2023-09-06] MEDS: Insulin Lispro 100 UNIT/ML 3 ML VIAL SUBCUT ×2 (13:53→18:13)
[2023-09-06 20:23] VITALS: BP 108/57; PULSE 67; RESP 16; TEMP 36.6; O2SAT 98
[2023-09-06] MEDS: Insulin Glargine,Hum.rec.anlog 100 UNIT/ML 10 ML VIAL 30 UNIT SUBCUT (20:51)
[2023-09-07] MEDS: Omeprazole 20 MG CAPSULE.DR PO (06:38)
[2023-09-07 08:41] VITALS: BP 142/65; PULSE 85; RESP 22; TEMP 36.4; O2SAT 95
[2023-09-07] MEDS: hydroCHLOROthiazide 12.5 MG TABLET PO (08:50)
[2023-09-07] MEDS: Aspirin Enteric Coated 81 MG TABLET.DR PO (08:50)
[2023-09-07] MEDS: SITagliptin Phosphate 25 MG TABLET PO (08:51)
[2023-09-07] MEDS: Mirabegron 25 MG TAB.ER.24H PO (08:51)
[2023-09-07] MEDS: Metoprolol Succinate ER 25 MG TAB.ER.24H PO (08:51)
[2023-09-07] MEDS: Lactase TABLET 1 TAB PO ×2 (08:51→13:14)
[2023-09-07] MEDS: Baclofen 10 MG TABLET PO (08:51)
[2023-09-07] MEDS: Valsartan 80 MG TABLET PO (08:52)
[2023-09-07] MEDS: amLODIPine Besylate 5 MG TABLET PO (08:52)
--- NOTE | 2023-09-07 09:41 | PC.NURSE ---
Natalia is alert, fully oriented, pleasant and cooperative with care. She denies ideation, plan or intent to harm self or others. She denies ah and vh. She verbalizes understanding of discharge plan including appointments and medications. She denies physical complaint. She is discharged home
== END 2023-09-07 13:50 | disposition home or self-care (01) | DRG 57 ==
LOC: HO.ED 06:36 → HO.PADLT16 22:11
PROVIDERS: Clinical Nurse Specialist Psychiatric/Mental Health, Adult; Emergency Medicine Emergency Medical Services; Admitting Provider Psychiatry & Neurology Psychiatry; Emergency Provider Internal Medicine; Visit Provider Psychiatry & Neurology Psychiatry
DX: G31.83 Neurocognitive disorder with Lewy bodies (principal); F01.52 Vascular dementia, unspecified severity, with psychotic disturbance; N39.0 Urinary tract infection, site not specified; F02.82 Dementia in other diseases classified elsewhere, unspecified severity, with psychotic disturbance; R45.850 Homicidal ideations; Z20.822 Contact with and (suspected) exposure to COVID-19; E11.65 Type 2 diabetes mellitus with hyperglycemia; Z62.810 Personal history of physical and sexual abuse in childhood; Z91.148 Patient's other noncompliance with medication regimen for other reason; Z79.4 Long term (current) use of insulin; Z79.82 Long term (current) use of aspirin; Z79.899 Other long term (current) drug therapy
CPT/HCPCS: 36415; 80048; 80061; 80307; 81001; 82947; 83036; 85025; 87086; 87088; 87147; 87186; 87635; 93005; 99285; S9485

== ENCOUNTER → 2023-08-14 15:10 | Outpatient (BNV) | payer MEDICARE, SELFPAY | PROVIDERS: Admitting Provider Psychiatry & Neurology Psychiatry; Emergency Provider Internal Medicine; Visit Provider Internal Medicine Cardiovascular Disease | DX: R94.31 Abnormal electrocardiogram [ECG] [EKG] (principal) | CPT/HCPCS: 93010 ==

== ENCOUNTER → 2023-08-14 21:58 | Outpatient (BNV) | payer MEDICARE, SELFPAY | PROVIDERS: Admitting Provider Psychiatry & Neurology Psychiatry; Emergency Provider Internal Medicine; Visit Provider Psychiatry & Neurology Psychiatry | DX: F03.90 Unspecified dementia, unspecified severity, without behavioral disturbance, psychotic disturbance, mood disturbance, and anxiety (principal); E11.8 Type 2 diabetes mellitus with unspecified complications | CPT/HCPCS: 90792; 99231; 99232; 99233; 99239 ==

== ENCOUNTER → 2023-08-14 21:58 | Outpatient (BNV) | payer MEDICARE, SELFPAY | PROVIDERS: Admitting Provider Psychiatry & Neurology Psychiatry; Emergency Provider Internal Medicine; Visit Provider Student in an Organized Health Care Education/Training Program | DX: E11.65 Type 2 diabetes mellitus with hyperglycemia (principal) | CPT/HCPCS: 99231; 99499 ==

== ENCOUNTER 2023-09-18 20:57 | Inpatient (IN) | payer MEDICARE, SELFPAY ==
--- NOTE | ~2023-09-18 | CT_ITS ---
EXAMINATION: CT HEAD WITHOUT CONTRAST CLINICAL INFORMATION: ams with hx of embolic cv COMPARISON: CT head January 13, 2023, January 12, 2023 TECHNIQUE: Contiguous axial imaging was performed from the skull base to vertex without intravenous administration of contrast. Coronal and sagittal reformatted images are performed at the CT scanner. [This CT examination was performed using dose optimization techniques as appropriate, variously including the following: *Automated exposure control *Adjustment of mA and/or kV according to patient size (this includes techniques or standardized protocols for targeted exams where dose is matched to indication/reason for exam; i.e. extremities or head) *Use of iterative reconstruction technique] DLP: 923 mGy-cm. FINDINGS: Redemonstration of focal encephalomalacia from old infarct in the right and left occipital lobes unchanged since prior studies. There is no evidence of acute intracranial hemorrhage or acute territorial infarction. No abnormal mass-effect or midline shift is seen. [place] to white matter differentiation is well preserved. No extra-axial fluid collections are identified. There is no osseous abnormality. The mastoid air cells and visualized portions of the paranasal sinuses are well-aerated. CT/CT head/brain wo IV con IMPRESSION: No acute intracranial pathology.
--- NOTE | ~2023-09-18 | XR_ITS ---
EXAMINATION: XR CHEST CLINICAL INFORMATION: Hypoxemia COMPARISON: 09/19/2023 12:43 AM, approximately 24 hours ago TECHNIQUE: Frontal view of the chest was obtained. FINDINGS: Since the prior exam, patient has been intubated with an ET tube present about 3.5 cm above the omero. Detail is obscured by posterior fixation thoracic spine hardware. A new NG tube is present as well with tip in the stomach. Surgical clips are present in the right upper quadrant. There is increased opacity seen overlying the right hemithorax as well as some mild increased opacity in the retrocardiac area. No pleural effusions. No pneumothorax. XR/XR chest 1V IMPRESSION: ET tube and NG tube in good position. Increasing pulmonary opacities as described above. Findings could be secondary to asymmetric pulmonary edema, aspiration or pneumonia.
--- NOTE | ~2023-09-18 | XR_ITS ---
EXAMINATION: XR ABDOMEN KUB CLINICAL INDICATION: Pre-MRI. Altered mental status. COMPARISON: September 19, 2021 TECHNIQUE: AP view of the abdomen. FINDINGS: The bowel gas pattern is normal with no evidence of ileus or obstruction. Multiple surgical clips seen in the right upper quadrant consistent with cholecystectomy. Patient is status post previous thoracic spine surgery with portion of hardware identified. There is some catheter seen coiled about the right mid abdomen with no definite metallic component identified. Arteriovascular calcifications are present. Numerous phleboliths are seen about the pelvis. Some surgical clips are seen overlying the left iliac vessel region within the pelvis. XR/XR abdomen 1V IMPRESSION: No evidence of ileus or obstruction. Postsurgical changes as described. Catheter tubing overlying the right mid abdomen without metallic component identified.
--- NOTE | ~2023-09-18 | CT_ITS ---
EXAMINATION: CT CHEST WITHOUT CONTRAST CLINICAL INFORMATION: Hypoxia. Decreased breath sounds. COMPARISON: 11/24/2020. TECHNIQUE: Multidetector volumetric CT imaging of the chest was done. Axial MIP volume rendering provided. Sagittal and coronal reformatted images were obtained. This CT examination was performed using dose optimization techniques as appropriate, variously including the following: *Automated exposure control *Adjustment of mA and/or kV according to patient size (this includes techniques or standardized protocols for targeted exams where dose is matched to indication/reason for exam; i.e. extremities or head) *Use of iterative reconstruction technique DLP: 579 mGy-cm FINDINGS: INSTALLATION DRAFTER: Thoracic orthopedic hardware is noted. A gastric tube extends below the diaphragm into the upper abdomen. The patient is intubated. LUNGS: There is bilateral dependent lung base consolidation more prominent on the left associated with small pleural effusions. There is a large right upper lobe infiltrate and right lower lobe infrahilar infiltrate. MEDIASTINUM: The heart is mildly enlarged. There is no pericardial effusion. Small nonspecific mediastinal lymph nodes are noted. The patient is intubated with endotracheal tube above the omero. A gastric tube extends below the diaphragm into the stomach. CORONARY ARTERY CALCIFICATION: Moderate. PLEURA: There are small bilateral pleural effusions. AXILLA: No lymphadenopathy. UPPER ABDOMEN: Unremarkable. OSSEOUS STRUCTURES: There is upper thoracic posterior fusion. CT/CT chest wo IV con IMPRESSION: 1. Large right upper lobe infiltrate and right lower lobe infrahilar infiltrate. Suspect pneumonia. 2. Bilateral dependent lung base consolidation most significant on the left associated with small pleural effusions. Left-sided infiltrate/pneumonia also considered. Fleischner guidelines were followed.
--- NOTE | ~2023-09-18 | MR_ITS ---
EXAMINATION: MR BRAIN WITHOUT CONTRAST CLINICAL INFORMATION: Cerebrovascular accident. COMPARISON: CT head from 09/18/2023. TECHNIQUE: MRI of the brain was obtained using routine sequences without contrast. FINDINGS: Moderately motion degraded exam. No focal restricted diffusion is demonstrated to suggest acute or subacute cerebral ischemia. No evidence of acute or chronic hemorrhagic products on heme-sensitive imaging. Chronic regions of encephalomalacia within the parasagittal aspects of the left greater than right occipitoparietal lobes, posterior aspect of the left mesial temporal lobe, and superior aspect of the left cerebellar hemisphere. Scattered periventricular and deep white matter T2 FLAIR hyperintensities consistent with mild underlying microangiopathy. Proportional prominence of the ventricles and sulcal spaces without evidence of obstructive hydrocephalus. No abnormal mass effect. No midline shift. Normal appearance of the pituitary gland. Normal positioning of the cerebellar tonsils. Normal arterial and venous vascular flow voids are present. Normal, homogeneous marrow signal. Mild mucosal thickening of the paranasal sinuses. No signal abnormalities within the mastoids. MR/MR head/brain wo con IMPRESSION: 1. No evidence of acute intracranial abnormalities. 2. Chronic regions of encephalomalacia within the left greater than right occipitoparietal lobes, posterior aspect of the left mesial temporal lobe, and superior aspect of the left cerebellar hemisphere. Mild underlying microangiopathy and generalized cerebral volume loss.
--- NOTE | ~2023-09-18 | XR_ITS ---
EXAMINATION: XR CHEST CLINICAL INFORMATION: Central venous catheter placement. COMPARISON: CT chest 09/20/2023, chest radiograph 09/20/2023. TECHNIQUE: Frontal view of the chest was obtained. FINDINGS: Multilevel thoracic instrumented fusion hardware is again noted. Multiple external artifacts overlie the thorax. An endotracheal tube terminates approximately 2 cm superior to the omero. Enteric tube terminates in projection with the stomach. A right internal jugular catheter terminates in projection with the right atrium approximately 2 cm inferior to the level of the cavoatrial junction. Mild blunting of the left right costophrenic sulci visualized. No pneumothoraces identified. The examination is underpenetrated resulting in suboptimal evaluation of the lungs. Left base airspace opacification obscuring the descending aortic and left hemidiaphragmatic margins is noted. Chronic appearing posterior manic deformity of the left humeral neck is noted along with chronic appearing osteophytosis of the distal right clavicle. XR/XR chest 1V IMPRESSION: 1. Right internal jugular catheter terminating within the right atrium approximately 2 cm inferior to the level of the cavoatrial junction. 2. Endotracheal tube terminating approximately 2 cm superior to the omero. 3. Enteric tube terminating within the stomach. 4. Left base airspace opacification which may represent atelectasis and/or consolidation. 5. Bilateral pleural effusions.
--- NOTE | ~2023-09-18 | XR_ITS ---
EXAMINATION: XR CHEST CLINICAL INFORMATION: Altered mental status. COMPARISON: 01/12/2023. TECHNIQUE: Frontal view of the chest was obtained. FINDINGS: The cardiomediastinal silhouette is stable. There is no focal lung consolidation or pleural effusion. Thoracic orthopedic hardware is again seen. There is no acute osseous abnormality. Soft tissues are unremarkable. XR/XR chest 1V IMPRESSION: No evidence for acute disease in the chest.
[2023-09-18 21:03] VITALS: BP 115/93; BP 164/68; PULSE 85; PULSE 93; RESP 15; TEMP 36.7; O2SAT 94; O2SAT 95; BMI 39.1
--- NOTE | 2023-09-18 21:06 | ECG_ITS ---
Test Reason : ams Blood Pressure : / mmHG Vent. Rate : 083 BPM Atrial Rate : 083 BPM P-R Int : 132 ms QRS Dur : 094 ms QT Int : 350 ms P-R-T Axes : 134 125 221 degrees QTc Int : 411 ms Suspect limb lead reversal, interpretation assumes no reversal Likely sinus rhythm Lateral infarct , age undetermined Possible Inferior infarct , age undetermined Nonspecific ST and T wave abnormality Abnormal ECG When compared with ECG of 14-AUG-2023 18:04, Significant changes have occurred Referred By: Keith Kim Electronically Signed By:BAIRON IVY
--- NOTE | 2023-09-18 21:23 | ED.AMS ---
HPI - Altered Mental Status General Chief Complaint: Altered Mental Status Stated Complaint: STROKE ALERT Source: EMS Mode of arrival: EMS Limitations: altered mental status History of Present Illness HPI narrative: Patient with history of lewy body dementia, depression, diabetes usually alert noticed to be more confused at 20:00 checked the blood sugar was reading high so give her 28 units of Humalog subQ blood sugar per EMS was 315 dropped to 277 on arrival patient had slightly slurred speech at home on arrival able to speak full sentences more awake moving all 4 extremities Related Data Home Medications Medication Instructions Recorded Confirmed aspirin 81 mg tablet,delayed 1 tab PO QAM 08/06/21 08/14/23 release atorvastatin 80 mg tablet 1 tab PO DAILY 08/06/21 08/14/23 hydrochlorothiazide 12.5 mg capsule 1 cap PO DAILY 08/06/21 08/14/23 pantoprazole 40 mg tablet,delayed 1 tab PO BID 08/06/21 08/14/23 release valsartan 80 mg tablet 1 tab PO DAILY 08/06/21 08/14/23 multivitamin 1 tab PO QAM 09/19/21 08/14/23 mirabegron 25 mg tablet,extended 25 mg PO DAILY 01/12/23 08/14/23 release 24 hr (Myrbetriq) amlodipine 5 mg tablet 5 mg PO DAILY 01/13/23 08/14/23 baclofen 10 mg tablet 10 mg PO TID 01/13/23 08/14/23 donepezil 5 mg tablet 5 mg PO DAILY 01/13/23 08/14/23 loratadine 10 mg tablet 10 mg PO DAILY 01/13/23 08/14/23 quetiapine 25 mg tablet 50 mg PO BEDTIME 01/13/23 08/14/23 insulin lispro 100 unit/mL 8 - 24 unit subcut TID 08/14/23 08/14/23 subcutaneous pen (Humalog KwikPen (U-100) Insulin) Previous Rx's Medication Instructions Recorded metoprolol succinate 25 mg 25 mg PO QAM #90 tabs 12/26/22 tablet,extended release 24 hr fluticasone propionate 50 1 spray intranasal BID #0 grams 09/06/23 mcg/actuation nasal spray,suspension insulin glargine 100 unit/mL 30 unit (0.3 mL) subcut BEDTIME 30 09/06/23 subcutaneous solution (Lantus days #9 mL U-100 Insulin) lactase 3,000 unit tablet 3,000 unit PO TIDWM 30 days #90 09/06/23 (Dairy-Aid) tabs naproxen 250 mg tablet 250 mg PO BID PRN back pain #0 tabs 09/06/23 quetiapine 25 mg tablet 12.5 mg (1/2 x 25 mg) PO 09/06/23 BID@0900,1700 30 days #30 tabs sitagliptin phosphate 25 mg tablet 25 mg PO DAILY 30 days #30 tabs 09/06/23 (Januvia) Allergies Allergy/AdvReac Type Severity Reaction Status Date / Time Sulfa (Sulfonamide Allergy Severe DIFFICULTY Verified 09/18/23 21:02 Antibiotics) BREATHING [SULFA (SULFONAMIDE ANTIBIOTICS)] cephalexin [From KEFLEX] Allergy Intermediate RASH,HIVES Verified 09/18/23 21:02 amoxicillin [AMOXICILLIN] Allergy Unknown DENIES Verified 09/18/23 21:02 THIS ALLERGY 03/28/2018 penicillin V Allergy Unknown Unknown Verified 09/18/23 21:02 sumatriptan [From IMITREX] AdvReac Severe HEART Verified 09/18/23 21:02 PALPITATIONS topiramate [From TOPAMAX] AdvReac Severe AGITATION Verified 09/18/23 21:02 Review of Systems Review of Systems: Yes all other systems are reviewed and are negative PMFSH Past Medical History Onset Date is defined in the Problem List Problems that require an onset date and time if occurred within 24 hrs of arrival to the ED Aortic Dissection and Rupture; Neurologic impairment; Cardiopulmonary Arrest; Endotracheal Intubation; Insertion or Replacement of Mechanical Circulatory Assist Device Medical History Hyperglycemia due to diabetes mellitus Bacteremia Toxic metabolic encephalopathy Hypernatremia Bradycardia Shock Acute hypotension Encephalopathy Altered mental status Stroke due to stenosis of posterior cerebral artery Cortical blindness Restrictive lung disease Nocturnal hypoxemia Dyspnea on exertion Obesity (BMI 30-39.9) Anxiety Orthopnea Myalgia and myositis Essential hypertension Type 2 diabetes mellitus with unspecified complications Asthma Dementia, Lewy body with behavior disturbance Diabetes HTN (hypertension) UTI (urinary tract infection) CHF (congestive heart failure) Neuropathy Diabetic acetonemia Surgical History History of pancreatic surgery History of arthroscopy of both knees History of appendectomy History of hysterectomy Family History Family History Father No problems noted. Mother Angina at rest Sister Lung cancer Colon cancer COPD (chronic obstructive pulmonary disease) Social History Social History Household Members: Spouse Housing: Apartment Do you presently have visiting nurse or other home services: No Unable to assess alcohol history related to: Unknown Alcohol intake: never Comment: encouraged to call for assistance Patient Tobacco Use Status: Never used Tobacco e-Cigarette/Vaping Use: Never Used Second Hand Smoke Exposure: No Advance Directives: Yes Advance Directives on File: Yes Advance Directives Date on File: 07/27/20 service: No Current occupational status: disabled Current occupation: right handed Sexual orientation: Straight/Heterosexual Physical Exam ED Vital Signs: Vital Signs - 24 hr 09/18/23 21:03 09/18/23 22:22 09/19/23 00:07 Temperature 98.1 F 98.1 F Pulse Rate 93 73 Respiratory Rate 15 20 Blood Pressure 115/93 H 112/55 L 80/46 L Pulse Oximetry 95 95 Oxygen Delivery Method Room Air Room Air 09/19/23 00:09 Temperature Pulse Rate Respiratory Rate Blood Pressure 99/70 Pulse Oximetry Oxygen Delivery Method BMI result Body Mass Index 39.1 Appearance: Lethargic but easily arousable, demented No acute distress. Eyes: PERRLA, No Nystagmus ENT: Pharynx normal. Oral Mucosa moist Neck: Normal inspection. Neck supple. CVS: Normal heart rate and rhythm. Pulses normal. Respiratory: No respiratory distress. Equal air entry bilateral, no wheezing/rales/rhonchi Abdomen: Soft and nontender. Bowel sounds are present, no mass palpable, no CVA tenderness Skin: Skin warm and dry. Normal skin color. Normal skin turgor. Extremities: No lower extremity edema. No calf tenderness Neuro: Lethargic but arousable normal speech moving all 4 extremities Medications Administered Generic Name Dose Route Start Last Admin Trade Name Freq PRN Reason Stop Dose Admin Sodium Chloride 1,000 mls @ 125 mls/hr 09/19/23 01:15 09/19/23 01:20 Ns IVCONT 125 mls/hr .Q8H FRANCHESKA Administration Discontinued Medications Generic Name Dose Route Start Last Admin Trade Name Allison PRN Reason Stop Dose Admin Sodium Chloride 1,000 mls @ 999 mls/hr 09/18/23 21:05 09/19/23 00:19 Ns IV 09/18/23 22:05 Infused .Q1H1M ONE Infusion Ondansetron HCl 4 mg 09/19/23 00:25 09/19/23 00:35 Ondansetron Hcl 4 Mg/2 Ml Vial IVPUSH 09/19/23 00:26 4 mg ONCE ONE Administration Medical Decision Making Medical Decision Making [facility] Narrative: Patient with acute altered mental status likely metabolic encephalopathy patient is on oxygen 2 L at nighttime for nocturnal hypoxemia possible patient has transient hypoxemia at that time blood sugar was elevated patient slightly off her baseline patient did have history of bacteremia in the past 01/23 with strep viridans at this time does have leukocytosis, etiology not very clear will admit the patient for observation Differential Diagnosis Differential Diagnoses: The differential diagnosis associated with the presentation includes CVA/ sepsis/UTI/hypoxemia/seizure/metabolic encephalopathy Admission/Observation Consideration of admission/observation: Escalation of care including admission/observation considered Consult Healthcare Provider Management of the patient was discussed with: Hospitalist Lab Data [facility] Lab Attestation statement: I reviewed the patient's lab results. 09/18/23 22:03 09/18/23 22:03 Labs: Lab Results 09/18/23 09/18/23 09/18/23 Range/Units 21:02 22:03 23:34 WBC 15.3 H (4.8-10.8) X10*3/uL RBC 3.80 L (4.20-5.50) X10*6/uL Hgb 11.8 L (12.0-16.0) g/dl Hct 35.4 L (37.0-47.0) % MCV 93.2 (80.0-98.0) fL MCH 31.1 (27.0-33.0) pg MCHC 33.3 (31.0-35.0) g/dl RDW 14.2 (11.0-16.0) % Plt Count 256 (160-400) X10*3/uL MPV 10.0 (9.4-12.3) fL Immature Gran % (Auto) 0.5 H (0.0-0.4) % Neut % (Auto) 80.6 H (45-73) % Lymph % (Auto) 11.1 L (20-40) % [place] % (Auto) 5.3 (2-11) % Eos % (Auto) 2.2 (0-4) % Baso % (Auto) 0.3 (0-2) % Lymph # (Auto) 1.7 (1.2-4.9) X10*3/uL [place] # (Auto) 0.8 (0.1-1.2) X10*3/uL Eos # (Auto) 0.3 (0.0-0.4) X10*3/uL Baso # (Auto) 0.1 (0.0-0.2) X10*3/uL Abs Immat Gran (auto) 0.07 H (0.00-0.03) X10*3/uL Absolute Neuts (auto) 12.3 H (2.0-8.3) x10*3/uL Absolute Nucleated RBC 0.000 (0.0-0.012) X10*3/uL Nucleated RBC % (auto) 0.0 (0.0-0.2) /100WBC PT 11.9 (11.1-13.3) SEC INR 1.0 (0.9-1.1) Sodium 140 (135-145) mmol/L Potassium 4.2 (3.3-5.1) mmol/L Chloride 104 (96-108) mmol/L Carbon Dioxide 25 (22-29) mmol/L Anion Gap 15 (12-20) BUN 26 H (9-16) mg/dL Creatinine 1.31 (0.5-1.4) mg/dL Estim Creat Clear Calc 43.0 Estimated GFR 41 POC Glucose 235 H (60-115) mg/dL Random Glucose 297 H (60-115) mg/dL Lactic Acid (0.5-2.0) mmol/L Calcium 9.0 D (8.4-10.2) mg/dL Total Bilirubin 0.3 (0.0-1.0) mg/dL AST 19 (5-31) U/L ALT 18 (0-31) U/L Alkaline Phosphatase 73 (39-117) U/L Total Protein 6.7 (6.5-8.0) g/dL Albumin 3.5 (3.5-5.0) g/dL Urine Color Yellow Urine Appearance Clear Urine pH 6.0 (5.0-9.0) Ur Specific [place] 1.020 (1.005-1.025) Urine Protein Negative (Neg-Trace) mg/dL Urine Glucose (UA) 500 H (Negative) mg/dL Urine Ketones Negative (Negative) mg/dL Urine Blood Negative (Negative) Urine Nitrite Negative (Negative) Ur Leukocyte Esterase Trace H (Negative) Urine RBC 0-2 (0-2) /HPF Urine WBC 6-10 H (0-5) /HPF Ur Squamous Epith Cells 0-2 (0-2) /HPF Urine Bacteria None Seen (None Seen) Hyaline Casts 0-2 (0-2) /LPF COVID-19 ([facility]) (Negative) COVID-19 Clin Com Influenza Type A ([place]) (Negative) Influenza Type B ([place]) (Negative) Influenza A & B Note 09/19/23 09/19/23 Range/Units 00:26 01:33 WBC (4.8-10.8) X10*3/uL RBC (4.20-5.50) X10*6/uL Hgb (12.0-16.0) g/dl Hct (37.0-47.0) % MCV (80.0-98.0) fL MCH (27.0-33.0) pg MCHC (31.0-35.0) g/dl RDW (11.0-16.0) % Plt Count (160-400) X10*3/uL MPV (9.4-12.3) fL Immature Gran % (Auto) (0.0-0.4) % Neut % (Auto) (45-73) % Lymph % (Auto) (20-40) % [place] % (Auto) (2-11) % Eos % (Auto) (0-4) % Baso % (Auto) (0-2) % Lymph # (Auto) (1.2-4.9) X10*3/uL [place] # (Auto) (0.1-1.2) X10*3/uL Eos # (Auto) (0.0-0.4) X10*3/uL Baso # (Auto) (0.0-0.2) X10*3/uL Abs Immat Gran (auto) (0.00-0.03) X10*3/uL Absolute Neuts (auto) (2.0-8.3) x10*3/uL Absolute Nucleated RBC (0.0-0.012) X10*3/uL Nucleated RBC % (auto) (0.0-0.2) /100WBC PT (11.1-13.3) SEC INR (0.9-1.1) Sodium (135-145) mmol/L Potassium (3.3-5.1) mmol/L Chloride (96-108) mmol/L Carbon Dioxide (22-29) mmol/L Anion Gap (12-20) BUN (9-16) mg/dL Creatinine (0.5-1.4) mg/dL Estim Creat Clear Calc Estimated GFR POC Glucose 225 H (60-115) mg/dL Random Glucose (60-115) mg/dL Lactic Acid 1.4 (0.5-2.0) mmol/L Calcium (8.4-10.2) mg/dL Total Bilirubin (0.0-1.0) mg/dL AST (5-31) U/L ALT (0-31) U/L Alkaline Phosphatase (39-117) U/L Total Protein (6.5-8.0) g/dL Albumin (3.5-5.0) g/dL Urine Color Urine Appearance Urine pH (5.0-9.0) Ur Specific [place] (1.005-1.025) Urine Protein (Neg-Trace) mg/dL Urine Glucose (UA) (Negative) mg/dL Urine Ketones (Negative) mg/dL Urine Blood (Negative) Urine Nitrite (Negative) Ur Leukocyte Esterase (Negative) Urine RBC (0-2) /HPF Urine WBC (0-5) /HPF Ur Squamous Epith Cells (0-2) /HPF Urine Bacteria (None Seen) Hyaline Casts (0-2) /LPF COVID-19 ([facility]) Negative (Negative) COVID-19 Clin Com See Note Influenza Type A ([place]) Negative (Negative) Influenza Type B ([place]) Negative (Negative) Influenza A & B Note See Note Independent Interpretation I performed an independent interpretation of an: EKG, Plain X-Ray and CT Scan Interpretation: Sinus rhythm with heart rate 83 beats per minute no acute ST-T changes Pac are present no acute ischemia Radiology Impression Discussion of test interpretation with radiology: I have reviewed the radiologist's reading. Discharge Plan Discharge Clinical Impression: Acute metabolic encephalopathy Patient Disposition: Admitted As Inpatient
[2023-09-18 21:55] LABS: Glucose, Whole Blood 235 mg/dL (60-115)
[2023-09-18 22:08] LABS: MANUAL DIFF FLAG NO
[2023-09-18 22:10] LABS: Basophils Absolute Auto 0.1 X10*3/uL (0.0-0.2); Basophils Percent Auto 0.3 % (0-2); Eosinophils Absolute Auto 0.3 X10*3/uL (0.0-0.4); Eosinophils Percent Auto 2.2 % (0-4); Hematocrit 35.4 % (37.0-47.0); Hemoglobin 11.8 g/dl (12.0-16.0); Imm Gran Abs Auto 0.07 X10*3/uL (0.00-0.03); Imm Gran Pct Auto 0.5 % (0.0-0.4); Lymphocytes Absolute Auto 1.7 X10*3/uL (1.2-4.9); Lymphocytes Percent Auto 11.1 % (20-40); Mean Corpuscular HGB Conc 33.3 g/dl (31.0-35.0); Mean Corpuscular Hemoglobin 31.1 pg (27.0-33.0); Mean Corpuscular Volume 93.2 fL (80.0-98.0); Monocytes Absolute Auto 0.8 X10*3/uL (0.1-1.2); Monocytes Percent Auto 5.3 % (2-11); Neutrophils Absolute Auto 12.3 x10*3/uL (2.0-8.3); Neutrophils Percent Auto 80.6 % (45-73); Platelet Count 256 X10*3/uL (160-400); Red Cell Distribution Width 14.2 % (11.0-16.0); White Blood Count 15.3 X10*3/uL (4.8-10.8)
[2023-09-18 22:16] LABS: Prothrombin Time 11.9 SEC (11.1-13.3)
[2023-09-18 22:22] VITALS: BP 112/55; PULSE 73; RESP 20; TEMP 36.7; O2SAT 95
[2023-09-18] MEDS: 0.9 % Sodium Chloride 1,000 ML 999 ML IV (22:26)
[2023-09-18 22:35] LABS: Alanine Aminotransferase 18 U/L (0-31); Albumin Level 3.5 g/dL (3.5-5.0); Alkaline Phosphatase 73 U/L (39-117); Anion Gap 15 (12-20); Aspartate Amino Transferase 19 U/L (5-31); Bilirubin Total 0.3 mg/dL (0.0-1.0); Blood Urea Nitrogen 26 mg/dL (9-16); Carbon Dioxide 25 mmol/L (22-29); Chloride 104 mmol/L (96-108); Estimated Glomerular Filt Rate 41; Glucose Random 297 mg/dL (60-115); Potassium 4.2 mmol/L (3.3-5.1); Sodium 140 mmol/L (135-145); Total Protein 6.7 g/dL (6.5-8.0)
--- NOTE | 2023-09-18 23:39 | PC.NURSE ---
pt arrived to ED AMS, per [facility] 1999, POC reading high, gave 28u of insulin, per EMS slurred speech w weakness, on arrival to ED pt altered but following commands appropriately, speech clear, equal strength. delay in labs d/t pt in CT and difficulty stick. line placed by EMS infiltrated. pt incontinent of urine/stool, cleaned and repositioned straight cath'd for urine sample. pt reporting pain, vomited large quantity of food. no new orders at this time.
[2023-09-18 23:43] LABS: Appearance Urine Clear; Color Urine Yellow; Glucose Urine UA 500 mg/dL (Negative); Leukocyte Esterase Urine Trace (Negative); Nitrite Urine Negative (Negative); UMIC TRIGGER UACC YES; Urine Blood Negative (Negative); Urine Ketones Negative (Negative); Urine Protein Negative (Neg-Trace)
[2023-09-18 23:51] LABS: Bacteria Urine None Seen (None Seen); Hyaline Casts Urine 0-2 /LPF (0-2); RBC Urine 0-2 /HPF (0-2); Squamous Epithelial Cell Urine 0-2 /HPF (0-2); UACC Culture Trigger YES
--- NOTE | 2023-09-18 23:51 | PC.NURSE ---
Took over care From BRENT Gardner, pt cleaned for incontinence, pt straight cath, complete bed change and repositioned.
[2023-09-19] VITALS (7 sets, daily range): BP systolic 80–143; BP diastolic 46–94; PULSE 82–99; RESP 12–20; TEMP 36.6–36.9; O2SAT 94–97
--- NOTE | 2023-09-19 00:18 | PC.NURSE ---
Notified Dr. Malik of low blood pressure,
[2023-09-19 00:29] LABS: Glucose, Whole Blood 225 mg/dL (60-115)
[2023-09-19] MEDS: ondansetron HCL 4 MG/2 ML VIAL IVPUSH ×2 (00:35→04:51)
--- NOTE | 2023-09-19 00:43 | PC.NURSE ---
medicated per mar, pt vomiting, provider notified of low bp
--- NOTE | 2023-09-19 00:45 | PC.NURSE ---
decrease O2 provider aware, pt place on 2L of oxygen
--- NOTE | 2023-09-19 01:19 | PC.NURSE ---
pt medicated per mar.
[2023-09-19] MEDS: 0.9 % Sodium Chloride 1,000 ML 125 ML IVCONT ×2 (01:20→08:22)
--- NOTE | 2023-09-19 01:38 | PC.NURSE ---
pt is a difficult stick, several attempts to get blood culture,
[2023-09-19 01:48] LABS: Lactic Acid 1.4 mmol/L (0.5-2.0)
[2023-09-19 01:56] LABS: COVID-19 Test Negative (Negative); IDNOW Serial# 08D9AD1C; IDNOW Serial# 9DB6401D; Influenza A Negative (Negative); Influenza B2 Negative (Negative)
--- NOTE | 2023-09-19 03:37 | PC.NURSE ---
pt incontinent of stool, complete bed change, pt restless in bed, provider aware, will medicated per mar.
--- NOTE | 2023-09-19 03:56 | PM.IMHP ---
History of Present Illness Date of Service: 09/19/23 Chief Complaint: Altered mentation This is a 67-year-old female with pertinent history of Lewy body dementia, essential hypertension, insulin-dependent diabetes mellitus who was brought to the emergency department for evaluation of altered mentation. Unable to obtain history from the patient. Patient does not know why she is here. She is awake and alert but disoriented to place, time and person. History obtained from ER provider and chart review. As per EMS, patient was found to be confused around 20:00. Patient also had slurred speech as per EMS which resolved by the time patient presented to the ER. Unable to obtain review of systems. Of note, patient was admitted on 01/12/2023 for acute encephalopathy and was found to have strep viridans bacteremia likely dental source. 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 Mother Angina at rest Sister Lung cancer Colon cancer COPD (chronic obstructive pulmonary disease) Surgical History History of pancreatic surgery History of arthroscopy of both knees History of appendectomy History of hysterectomy Social History Household Members: Spouse Housing: Apartment Do you presently have visiting nurse or other home services: No Unable to assess alcohol history related to: Unknown Alcohol intake: never Comment: encouraged to call for assistance Patient Tobacco Use Status: Never used Tobacco e-Cigarette/Vaping Use: Never Used Second Hand Smoke Exposure: No Advance Directives: Yes Advance Directives on File: Yes Advance Directives Date on File: 07/27/20 service: No Current occupational status: disabled Current occupation: right handed Sexual orientation: Straight/Heterosexual Meds Allergies Allergy/AdvReac Type Severity Reaction Status Date / Time Sulfa (Sulfonamide Allergy Severe DIFFICULTY Verified 09/18/23 21:02 Antibiotics) BREATHING [SULFA (SULFONAMIDE ANTIBIOTICS)] cephalexin [From KEFLEX] Allergy Intermediate RASH,HIVES Verified 09/18/23 21:02 amoxicillin [AMOXICILLIN] Allergy Unknown DENIES Verified 09/18/23 21:02 THIS ALLERGY 03/28/2018 penicillin V Allergy Unknown Unknown Verified 09/18/23 21:02 sumatriptan [From IMITREX] AdvReac Severe HEART Verified 09/18/23 21:02 PALPITATIONS topiramate [From TOPAMAX] AdvReac Severe AGITATION Verified 09/18/23 21:02 Active Medications: Current Medications Sodium Chloride (Ns) 1,000 mls @ 125 mls/hr IVCONT .Q8H [facility] Last Admin: 09/19/23 01:20 Dose: 125 mls/hr Home Medications Medication Instructions Recorded Confirmed Last Taken Type aspirin 81 mg tablet,delayed 1 tab PO QAM 08/06/21 08/14/23 08/13/23 History release atorvastatin 80 mg tablet 1 tab PO DAILY 08/06/21 08/14/23 08/13/23 History hydrochlorothiazide 12.5 mg capsule 1 cap PO DAILY 08/06/21 08/14/23 08/13/23 History pantoprazole 40 mg tablet,delayed 1 tab PO BID 08/06/21 08/14/23 08/13/23 History release valsartan 80 mg tablet 1 tab PO DAILY 08/06/21 08/14/23 08/13/23 History multivitamin 1 tab PO QAM 09/19/21 08/14/23 08/13/23 History mirabegron 25 mg tablet,extended 25 mg PO DAILY 01/12/23 08/14/23 08/13/23 History release 24 hr (Myrbetriq) amlodipine 5 mg tablet 5 mg PO DAILY 01/13/23 08/14/23 08/13/23 History baclofen 10 mg tablet 10 mg PO TID 01/13/23 08/14/23 08/13/23 History donepezil 5 mg tablet 5 mg PO DAILY 01/13/23 08/14/23 08/13/23 History loratadine 10 mg tablet 10 mg PO DAILY 01/13/23 08/14/23 08/13/23 History quetiapine 25 mg tablet 50 mg PO BEDTIME 01/13/23 08/14/23 08/12/23 History insulin lispro 100 unit/mL 8 - 24 unit subcut TID 08/14/23 08/14/23 Unknown History subcutaneous pen (Humalog KwikPen (U-100) Insulin) Physical Exam Vital Signs and Narrative: Vital Signs: Last Vital Signs Temp 98.5 F 09/19/23 03:28 Pulse 93 09/19/23 03:28 Resp 17 09/19/23 03:28 BP 125/64 09/19/23 03:28 Pulse Ox 95 09/19/23 03:28 O2 Del Method Nasal Cannula 09/19/23 03:28 O2 Flow Rate 2 09/19/23 03:28 BMI result Body Mass Index 39.1 Elderly female lying in bed in no distress Neck supple, no JVD Regular rate and rhythm, S1-S2 heard Regular breath sounds bilaterally, no wheezing or crackles appreciated Abdomen soft nontender, no guarding, no rigidity Patient is awake, alert and disoriented to self, place, time and person ; not following commands, unable to have a conversation No pedal edema Results Labs 09/18/23 22:03 09/18/23 22:03 Labs: Laboratory Results - last 24 hr 09/18/23 09/18/23 09/18/23 21:02 22:03 23:34 MCV 93.2 MCH 31.1 MCHC 33.3 RDW 14.2 Plt Count 256 MPV 10.0 Immature Gran % (Auto) 0.5 H Neut % (Auto) 80.6 H Lymph % (Auto) 11.1 L [place] % (Auto) 5.3 Eos % (Auto) 2.2 Baso % (Auto) 0.3 Lymph # (Auto) 1.7 [place] # (Auto) 0.8 Eos # (Auto) 0.3 Baso # (Auto) 0.1 Abs Immat Gran (auto) 0.07 H Absolute Neuts (auto) 12.3 H Absolute Nucleated RBC 0.000 Nucleated RBC % (auto) 0.0 PT 11.9 INR 1.0 Anion Gap 15 Estim Creat Clear Calc 43.0 Estimated GFR 41 POC Glucose 235 H Random Glucose 297 H Lactic Acid Calcium 9.0 D Total Bilirubin 0.3 AST 19 ALT 18 Alkaline Phosphatase 73 Total Protein 6.7 Albumin 3.5 Urine Color Yellow Urine Appearance Clear Urine pH 6.0 Ur Specific [place] 1.020 Urine Protein Negative Urine Glucose (UA) 500 H Urine Ketones Negative Urine Blood Negative Urine Nitrite Negative Ur Leukocyte Esterase Trace H Urine RBC 0-2 Urine WBC 6-10 H Ur Squamous Epith Cells 0-2 Urine Bacteria None Seen Hyaline Casts 0-2 COVID-19 ([facility]) COVID-19 Clin Com Influenza Type A ([facility]) Influenza Type B ([facility]) Influenza A & B Note 09/19/23 09/19/23 00:26 01:33 MCV MCH MCHC RDW Plt Count MPV Immature Gran % (Auto) Neut % (Auto) Lymph % (Auto) [place] % (Auto) Eos % (Auto) Baso % (Auto) Lymph # (Auto) [place] # (Auto) Eos # (Auto) Baso # (Auto) Abs Immat Gran (auto) Absolute Neuts (auto) Absolute Nucleated RBC Nucleated RBC % (auto) PT INR Anion Gap Estim Creat Clear Calc Estimated GFR POC Glucose 225 H Random Glucose Lactic Acid 1.4 Calcium Total Bilirubin AST ALT Alkaline Phosphatase Total Protein Albumin Urine Color Urine Appearance Urine pH Ur Specific [place] Urine Protein Urine Glucose (UA) Urine Ketones Urine Blood Urine Nitrite Ur Leukocyte Esterase Urine RBC Urine WBC Ur Squamous Epith Cells Urine Bacteria Hyaline Casts COVID-19 ([facility]) Negative COVID-19 Clin Com See Note Influenza Type A ([place]) Negative Influenza Type B ([facility]) Negative Influenza A & B Note See Note Imaging Radiologist's Impressions: Impressions Head CT 09/18/23 21:50 IMPRESSION: No acute intracranial pathology. Chest X-Ray 09/19/23 00:58 IMPRESSION: No evidence for acute disease in the chest. Assessment and Plan (1) Slurred speech: Status: Acute (2) Acute metabolic encephalopathy: Status: Acute Plan This is a 67-year-old female with pertinent history of Lewy body dementia, essential hypertension, uvt-qjpeqxd-ilyvqpdcs diabetes mellitus who was brought to the emergency department for evaluation of altered mentation. #. Acute encephalopathy with ?transient slurred speech: Does have a history of Lewy body dementia. Obtaining MRI of the brain. History of previous infarct. Consulting Neurology, appreciate assistance. #. Insulin-dependent diabetes mellitus with hyperglycemia: Initiating Accu-Cheks with sliding scale insulin every 6 hours #. Essential hypertension: Continue home antihypertensives once patient no longer NPO #. Leukocytosis: UA and chest x-ray within normal limits. Repeat in a.m. Med rec pending DVT prophylaxis: Lovenox NPO until mentation improves Full code Quality Stroke Does the patient have a stroke diagnosis?: No VTE Prior VTE?: No VTE Risk Level:: Medical - moderate - high VTE Device Contraindication: Treatment Not Indicated VTE Drug Contraindication: N/A - Med Ordered
[2023-09-19] MEDS: OLANZapine 10 MG VIAL IM ×3 (04:51→23:36)
--- NOTE | 2023-09-19 04:53 | PC.NURSE ---
provider notified of pt vomiting and restless, medicated per mar, pt incontinent of stool, complete bed change and jazzy care.
[2023-09-19] MEDS: Insulin Lispro 100 UNIT/ML 3 ML VIAL SUBCUT (05:53)
--- NOTE | 2023-09-19 05:56 | PC.NURSE ---
pure wick in place, pt repositioned, medication to cover blood sugar. provider aware.
[2023-09-19 05:57] LABS: Glucose, Whole Blood 230 mg/dL (60-115)
[2023-09-19 06:16] LABS: MANUAL DIFF FLAG NO
[2023-09-19 06:20] LABS: Basophils Percent Auto 0.3 % (0-2); Eosinophils Absolute Auto 0.2 X10*3/uL (0.0-0.4); Eosinophils Percent Auto 1.3 % (0-4); Hematocrit 33.6 % (37.0-47.0); Hemoglobin 11.3 g/dl (12.0-16.0); Imm Gran Abs Auto 0.07 X10*3/uL (0.00-0.03); Imm Gran Pct Auto 0.5 % (0.0-0.4); Lymphocytes Absolute Auto 1.7 X10*3/uL (1.2-4.9); Lymphocytes Percent Auto 12.8 % (20-40); Mean Corpuscular HGB Conc 33.6 g/dl (31.0-35.0); Mean Corpuscular Hemoglobin 31.7 pg (27.0-33.0); Mean Corpuscular Volume 94.4 fL (80.0-98.0); Mean Platelet Volume 10.4 fL (9.4-12.3); Monocytes Absolute Auto 0.6 X10*3/uL (0.1-1.2); Monocytes Percent Auto 4.4 % (2-11); Neutrophils Absolute Auto 10.4 x10*3/uL (2.0-8.3); Neutrophils Percent Auto 80.7 % (45-73); Platelet Count 250 X10*3/uL (160-400); Red Blood Count 3.56 X10*6/uL (4.20-5.50); Red Cell Distribution Width 14.3 % (11.0-16.0); White Blood Count 12.9 X10*3/uL (4.8-10.8)
[2023-09-19 06:32] LABS: Anion Gap 13 (12-20); Blood Urea Nitrogen 24 mg/dL (9-16); Calcium 8.5 mg/dL (8.4-10.2); Carbon Dioxide 24 mmol/L (22-29); Chloride 109 mmol/L (96-108); Creatinine Clr Calc Pharmacy 59.3; Estimated Glomerular Filt Rate 59; Glucose Random 261 mg/dL (60-115); Sodium 142 mmol/L (135-145)
--- NOTE | 2023-09-19 08:16 | PC.NURSE ---
patient resting in bed, laying on her side, patient is awake, rocking herself back and forth. patient is holding her head occasionally , asked patient if she was having head pain she said no, asked patient if she was having pain anywhere else and she said no. patient unable to stay still for accurate bp. patient not able to follow commands. patient was found to be incontinent of urine, patients pads changed and cleaned up, repositioned and pulled up in bed. patient respirations equal and unlabored, skin PWD, on 2l NC. NS running at 125ml/hr on pump. medicated per NOV
[2023-09-19] MEDS: Enoxaparin Sodium 40 MG/0.4 ML SYRINGE SUBCUT (08:20)
--- NOTE | 2023-09-19 08:25 | PHA.MEDREC ---
Pharmacy Consult ? Medication Reconciliation Pharmacy has completed the medication reconciliation. Used recent admission with claim history. Unable to talk to patient
--- NOTE | 2023-09-19 09:29 | P.CNNE_ITS ---
History of Present Illness Data of Consult Service Date: 09/19/23 Primary Care Provider: Unknown Physician HPI Reason for consult: Altered mental status This is a 67-year-old female with pertinent history of multi-infarct vs Lewy body dementia, essential hypertension, insulin-dependent diabetes mellitus who was brought to the emergency department for evaluation of altered mentation. Unable to obtain history from the patient. Patient does not know why she is here. She is awake and alert but disoriented to place, time and person. History obtained from ER provider and chart review. As per EMS, patient was found to be confused around 20:00. Patient also had slurred speech as per EMS which resolved by the time patient presented to the ER. Unable to obtain review of systems. CT scan shows atrophy and old bilateral occipital infarcts unchnaged from prior scan. No acute findings. Elevated WBC count, and mild dehydration Review of Systems 2 Review of Systems: Yes all other systems are reviewed and are negative, Unobtainable due to mental condition and Unobtainable due to mental status PMFSH Past Medical History Medical History Hyperglycemia due to diabetes mellitus Bacteremia Toxic metabolic encephalopathy Hypernatremia Bradycardia Shock Acute hypotension Encephalopathy Altered mental status Stroke due to stenosis of posterior cerebral artery Cortical blindness Restrictive lung disease Nocturnal hypoxemia Dyspnea on exertion Obesity (BMI 30-39.9) Anxiety Orthopnea Myalgia and myositis Essential hypertension Type 2 diabetes mellitus with unspecified complications Asthma Dementia, Lewy body with behavior disturbance Diabetes HTN (hypertension) UTI (urinary tract infection) CHF (congestive heart failure) Neuropathy Diabetic acetonemia Family History Family History Father No problems noted. Mother Angina at rest Sister Lung cancer Colon cancer COPD (chronic obstructive pulmonary disease) Surgical History Surgical History History of pancreatic surgery History of arthroscopy of both knees History of appendectomy History of hysterectomy Social History Social History Household Members: Spouse Housing: Apartment Do you presently have visiting nurse or other home services: No Unable to assess alcohol history related to: Unknown Alcohol intake: never Comment: encouraged to call for assistance Patient Tobacco Use Status: Never used Tobacco e-Cigarette/Vaping Use: Never Used Second Hand Smoke Exposure: No Advance Directives: Yes Advance Directives on File: Yes Advance Directives Date on File: 07/27/20 service: No Current occupational status: disabled Current occupation: right handed Sexual orientation: Straight/Heterosexual Meds Allergies Allergy/AdvReac Type Severity Reaction Status Date / Time Sulfa (Sulfonamide Allergy Severe DIFFICULTY Verified 09/18/23 21:02 Antibiotics) BREATHING [SULFA (SULFONAMIDE ANTIBIOTICS)] cephalexin [From KEFLEX] Allergy Intermediate RASH,HIVES Verified 09/18/23 21:02 amoxicillin [AMOXICILLIN] Allergy Unknown DENIES Verified 09/18/23 21:02 THIS ALLERGY 03/28/2018 penicillin V Allergy Unknown Unknown Verified 09/18/23 21:02 sumatriptan [From IMITREX] AdvReac Severe HEART Verified 09/18/23 21:02 PALPITATIONS topiramate [From TOPAMAX] AdvReac Severe AGITATION Verified 09/18/23 21:02 Active Medications: Current Medications Acetaminophen (Acetaminophen 325 Mg Tablet) 650 mg PO Q6H PRN PRN Reason: Pain, Mild (Pain Scale 1-3) Dextrose (Dextrose 50 % 25 Gm/50 Ml Syringe) 25 gm IVPUSH Q15M PRN; Protocol PRN Reason: per Hypoglycemia Standing Ord. Enoxaparin Sodium (Enoxaparin Sodium 40 Mg/0.4 Ml Syringe) 40 mg SUBCUT Q24H [facility] Last Admin: 09/19/23 08:20 Dose: 40 mg Glucose (Glucose Gel 15 Gm Gel..Gram.) 15 gm PO Q15M PRN; Protocol PRN Reason: per Hypoglycemia Standing Ord. Sodium Chloride (Ns) 1,000 mls @ 125 mls/hr IVCONT .Q8H [facility] Last Admin: 09/19/23 08:22 Dose: 125 mls/hr Insulin Human Lispro (Insulin Lispro 100 Unit/Ml 3 Ml Vial) 0 unit SUBCUT Q6H [facility]; Protocol Last Admin: 09/19/23 05:53 Dose: 4 unit Melatonin (Melatonin 3 Mg Tablet) 6 mg PO BEDTIME PRN PRN Reason: Insomnia Ondansetron HCl (Ondansetron Hcl 4 Mg/2 Ml Vial) 4 mg IVPUSH Q8H PRN PRN Reason: Nausea and Vomiting Last Admin: 09/19/23 04:51 Dose: 4 mg Sodium Chloride (0.9 % Sodium Chloride Flush 3 Ml Syringe) 3 ml IVFLUSH QSHIFT [facility] Last Admin: 09/19/23 07:10 Dose: Not Given Home Medications Medication Instructions Recorded Confirmed Last Taken Type aspirin 81 mg tablet,delayed 1 tab PO QAM 08/06/21 09/19/23 08/13/23 History release atorvastatin 80 mg tablet 1 tab PO DAILY 08/06/21 09/19/23 08/13/23 History hydrochlorothiazide 12.5 mg capsule 1 cap PO DAILY 08/06/21 09/19/23 08/13/23 History pantoprazole 40 mg tablet,delayed 1 tab PO BID 08/06/21 09/19/23 08/13/23 History release valsartan 80 mg tablet 1 tab PO DAILY 08/06/21 09/19/23 08/13/23 History multivitamin 1 tab PO QAM 09/19/21 09/19/23 08/13/23 History mirabegron 25 mg tablet,extended 25 mg PO DAILY 01/12/23 09/19/23 08/13/23 History release 24 hr (Myrbetriq) amlodipine 5 mg tablet 5 mg PO DAILY 01/13/23 09/19/23 08/13/23 History baclofen 10 mg tablet 10 mg PO TID 01/13/23 09/19/23 08/13/23 History donepezil 5 mg tablet 5 mg PO DAILY 01/13/23 09/19/23 08/13/23 History loratadine 10 mg tablet 10 mg PO DAILY 01/13/23 09/19/23 08/13/23 History quetiapine 25 mg tablet 50 mg PO BEDTIME 01/13/23 09/19/23 08/12/23 History insulin lispro 100 unit/mL 8 - 24 unit subcut TID 08/14/23 09/19/23 Unknown History subcutaneous pen (Humalog KwikPen (U-100) Insulin) Physical Exam 2 Vital Signs: Vital Signs: Last Vital Signs Temp 98.3 F 09/19/23 08:05 Pulse 87 09/19/23 08:05 Resp 20 09/19/23 08:05 BP 129/94 H 09/19/23 06:32 Pulse Ox 95 01/17/24 08:05 O2 Del Method Nasal Cannula 09/19/23 08:05 O2 Flow Rate 2 09/19/23 08:05 BMI result Body Mass Index 39.1 Neuro: Other: Confused and poorly cooperative. Limited exam with no nuchal rigidity. Moves all 4 limbs. Garcia snot follow commands. Results Labs 09/19/23 05:25 09/19/23 05:25 Labs: Short CBC 09/18/23 09/19/23 Range/Units 22:03 05:25 WBC 15.3 H 12.9 H (4.8-10.8) X10*3/uL Hgb 11.8 L 11.3 L (12.0-16.0) g/dl Hct 35.4 L 33.6 L (37.0-47.0) % Plt Count 256 250 (160-400) X10*3/uL BMP 09/18/23 09/19/23 22:03 05:25 Sodium 140 142 Potassium 4.2 4.0 Chloride 104 109 H Carbon Dioxide 25 24 BUN 26 H 24 H Creatinine 1.31 0.95 Calcium 9.0 D 8.5 Liver Function 09/18/23 Range/Units 22:03 Total Bilirubin 0.3 (0.0-1.0) mg/dL AST 19 (5-31) U/L ALT 18 (0-31) U/L Alkaline Phosphatase 73 (39-117) U/L Albumin 3.5 (3.5-5.0) g/dL Urine 09/18/23 Range/Units 23:34 Urine Color Yellow Urine Appearance Clear Urine pH 6.0 (5.0-9.0) Ur Specific [place] 1.020 (1.005-1.025) Urine Protein Negative (Neg-Trace) mg/dL Urine Glucose (UA) 500 H (Negative) mg/dL Assessment and Plan (1) Slurred speech: Status: Acute (2) Acute metabolic encephalopathy: Status: Acute Encephalopathy Superimposed on baseline dementia with multiple previous admissions for similar presentation, the last one in January of 2023. She has bilateral occipital strokes in the past and probable multi-infarrct dementia. Acute change may be due to infectious or metabolic etiologies. The recommendation: Blood and urine cultures, hydration. EEG Plan This is a 67-year-old female with pertinent history of Lewy body dementia, essential hypertension, dox-fesfjnr-vxiiuzzxo diabetes mellitus who was brought to the emergency department for evaluation of altered mentation. #. Acute encephalopathy with ?transient slurred speech: Does have a history of Lewy body dementia. Obtaining MRI of the brain. History of previous infarct. Consulting Neurology, appreciate assistance. #. Insulin-dependent diabetes mellitus with hyperglycemia: Initiating Accu- Cheks with sliding scale insulin every 6 hours #. Essential hypertension: Continue home antihypertensives once patient no longer NPO #. Leukocytosis: UA and chest x-ray within normal limits. Repeat in a.m. Med rec pending DVT prophylaxis: Lovenox NPO until mentation improves Full code Procedures Date of Service Date of Service: 09/19/23
--- NOTE | 2023-09-19 09:44 | PC.NURSE ---
patient going to MRI
--- NOTE | 2023-09-19 11:31 | MHC.EDTECH ---
pt was found incontinent of stool and urine in bed. pt was jazzy cleaned, linen changed, warm blankets given, call sandra within reach. rn aware.
--- NOTE | 2023-09-19 11:38 | HO.PM.IMPN ---
Subjective Subjective Date of Service: 09/19/23 Review of Systems Review of Systems: Yes Unobtainable due to mental status Physical Exam Vital Signs: Vital Signs: Last Vital Signs Temp 98.3 F 09/19/23 08:05 Pulse 82 09/19/23 10:24 Resp 12 09/19/23 10:24 BP 143/67 H 09/19/23 10:24 Pulse Ox 97 09/19/23 10:24 O2 Del Method Room Air 09/19/23 10:24 O2 Flow Rate 2 09/19/23 08:05 BMI result Body Mass Index 39.1 Neuro: Other: Confused and poorly cooperative. Limited exam with no nuchal rigidity. Moves all 4 limbs. Garcia snot follow commands. Objective Data Active Medications Acetaminophen (Acetaminophen 325 Mg Tablet) 650 mg PO Q6H PRN PRN Reason: Pain, Mild (Pain Scale 1-3) Dextrose (Dextrose 50 % 25 Gm/50 Ml Syringe) 25 gm IVPUSH Q15M PRN; Protocol PRN Reason: per Hypoglycemia Standing Ord. Enoxaparin Sodium (Enoxaparin Sodium 40 Mg/0.4 Ml Syringe) 40 mg SUBCUT Q24H [facility] Last Admin: 09/19/23 08:20 Dose: 40 mg Documented By: GABBI Glucose (Glucose Gel 15 Gm Gel..Gram.) 15 gm PO Q15M PRN; Protocol PRN Reason: per Hypoglycemia Standing Ord. Sodium Chloride (Ns) 1,000 mls @ 125 mls/hr IVCONT .Q8H [facility] Last Admin: 09/19/23 08:22 Dose: 125 mls/hr Documented By: GABBI Insulin Human Lispro (Insulin Lispro 100 Unit/Ml 3 Ml Vial) 0 unit SUBCUT Q6H [facility]; Protocol Last Admin: 09/19/23 05:53 Dose: 4 unit Documented By: ADDIS Melatonin (Melatonin 3 Mg Tablet) 6 mg PO BEDTIME PRN PRN Reason: Insomnia Ondansetron HCl (Ondansetron Hcl 4 Mg/2 Ml Vial) 4 mg IVPUSH Q8H PRN PRN Reason: Nausea and Vomiting Last Admin: 09/19/23 04:51 Dose: 4 mg Documented By: ADDIS Sodium Chloride (0.9 % Sodium Chloride Flush 3 Ml Syringe) 3 ml IVFLUSH QSHIFT [facility] Last Admin: 09/19/23 07:10 Dose: Not Given Documented By: GABBI Non-Admin Reason: Patient Asleep Labs 09/19/23 05:25 09/19/23 05:25 Labs: Laboratory Results - last 24 hr 09/18/23 09/18/23 09/18/23 21:02 22:03 23:34 MCV 93.2 MCH 31.1 MCHC 33.3 RDW 14.2 Plt Count 256 MPV 10.0 Immature Gran % (Auto) 0.5 H Neut % (Auto) 80.6 H Lymph % (Auto) 11.1 L [place] % (Auto) 5.3 Eos % (Auto) 2.2 Baso % (Auto) 0.3 Lymph # (Auto) 1.7 [place] # (Auto) 0.8 Eos # (Auto) 0.3 Baso # (Auto) 0.1 Abs Immat Gran (auto) 0.07 H Absolute Neuts (auto) 12.3 H Absolute Nucleated RBC 0.000 Nucleated RBC % (auto) 0.0 PT 11.9 INR 1.0 Anion Gap 15 Estim Creat Clear Calc 43.0 Estimated GFR 41 POC Glucose 235 H Random Glucose 297 H Lactic Acid Calcium 9.0 D Total Bilirubin 0.3 AST 19 ALT 18 Alkaline Phosphatase 73 Total Protein 6.7 Albumin 3.5 Urine Color Yellow Urine Appearance Clear Urine pH 6.0 Ur Specific [place] 1.020 Urine Protein Negative Urine Glucose (UA) 500 H Urine Ketones Negative Urine Blood Negative Urine Nitrite Negative Ur Leukocyte Esterase Trace H Urine RBC 0-2 Urine WBC 6-10 H Ur Squamous Epith Cells 0-2 Urine Bacteria None Seen Hyaline Casts 0-2 COVID-19 ([facility]) COVID-19 Clin Com Influenza Type A ([place]) Influenza Type B ([place]) Influenza A & B Note 09/19/23 09/19/23 09/19/23 00:26 01:33 05:25 MCV 94.4 MCH 31.7 MCHC 33.6 RDW 14.3 Plt Count 250 MPV 10.4 Immature Gran % (Auto) 0.5 H Neut % (Auto) 80.7 H Lymph % (Auto) 12.8 L [place] % (Auto) 4.4 Eos % (Auto) 1.3 Baso % (Auto) 0.3 Lymph # (Auto) 1.7 [place] # (Auto) 0.6 Eos # (Auto) 0.2 Baso # (Auto) 0.0 Abs Immat Gran (auto) 0.07 H Absolute Neuts (auto) 10.4 H Absolute Nucleated RBC 0.000 Nucleated RBC % (auto) 0.0 PT INR Anion Gap 13 Estim Creat Clear Calc 59.3 Estimated GFR 59 POC Glucose 225 H Random Glucose 261 H Lactic Acid 1.4 Calcium 8.5 Total Bilirubin AST ALT Alkaline Phosphatase Total Protein Albumin Urine Color Urine Appearance Urine pH Ur Specific [place] Urine Protein Urine Glucose (UA) Urine Ketones Urine Blood Urine Nitrite Ur Leukocyte Esterase Urine RBC Urine WBC Ur Squamous Epith Cells Urine Bacteria Hyaline Casts COVID-19 ([facility]) Negative COVID-19 Clin Com See Note Influenza Type A ([place]) Negative Influenza Type B ([place]) Negative Influenza A & B Note See Note 09/19/23 05:48 MCV MCH MCHC RDW Plt Count MPV Immature Gran % (Auto) Neut % (Auto) Lymph % (Auto) [place] % (Auto) Eos % (Auto) Baso % (Auto) Lymph # (Auto) [place] # (Auto) Eos # (Auto) Baso # (Auto) Abs Immat Gran (auto) Absolute Neuts (auto) Absolute Nucleated RBC Nucleated RBC % (auto) PT INR Anion Gap Estim Creat Clear Calc Estimated GFR POC Glucose 230 H Random Glucose Lactic Acid Calcium Total Bilirubin AST ALT Alkaline Phosphatase Total Protein Albumin Urine Color Urine Appearance Urine pH Ur Specific [place] Urine Protein Urine Glucose (UA) Urine Ketones Urine Blood Urine Nitrite Ur Leukocyte Esterase Urine RBC Urine WBC Ur Squamous Epith Cells Urine Bacteria Hyaline Casts COVID-19 ([facility]) COVID-19 Clin Com Influenza Type A ([place]) Influenza Type B ([place]) Influenza A & B Note Assessment and Plan (1) Slurred speech: Status: Acute Plan 67F PMH history of Lewy body dementia, essential hypertension, wkh-bwjimev-ylskjvglj diabetes mellitus who was brought to the emergency department for evaluation of altered mentation. Acute encephalopathy with ?transient slurred speech: Does have a history of Lewy body dementia. Obtaining MRI of the brain. History of previous infarct. Neurology appreciated check eeg, follow up cultures manager change eval Insulin-dependent diabetes mellitus with hyperglycemia Initiating Accu-Cheks with sliding scale insulin every 6 hours Essential hypertension Continue home antihypertensives once patient no longer NPO DVT prophylaxis: Lovenox Full code reason for continued hospitalization:ams Quality Stroke Does the patient have a stroke diagnosis?: No VTE Prior VTE?: No VTE Risk Level:: Medical - moderate - high VTE Device Contraindication: Treatment Not Indicated VTE Drug Contraindication: N/A - Med Ordered
[2023-09-19 12:42] LABS: Glucose, Whole Blood 188 mg/dL (60-115)
[2023-09-19] MEDS: diazePAM 10 MG/2 ML CARTRIDGE 5 MG IVPUSH (13:17)
--- NOTE | 2023-09-19 14:41 | MHC.SLORD ---
Addendum entered and electronically signed by HIMANSHU Arellano 09/19/23 16:17: MANAGER NUCLEAR attempted to see patient later this afternoon for swallow evaluation. Patient consistently stating no, pushing clinician away, wiggling in bed, not accepting any food/drink offered. MANAGER NUCLEAR to re-attempt evaluation tomorrow morning. Original Note: Speech Language Pathology Order Status: MANAGER NUCLEAR attempted to see patient for swallow evaluation, patient away at MRI. MANAGER NUCLEAR to re-attempt later today if time allows.
--- NOTE | 2023-09-19 16:37 | PC.NURSE ---
patient became combative after cleaning her up after being inconinent of feces. patient IV fluids paused as she was fixated on pulling at her IV line. patient cleaned up, linens and pads changed. patient laying in bed
--- NOTE | 2023-09-19 17:56 | PC.NURSE ---
patient became combative, got out of bed and refused to wear her oxygen, this RN sat with patient while they were standing to ensure safety. patient would not put back on her oxygen, desat down to 75% on room air, patient placed back in bed by staff, needing medication per MAR to calm down, patient still refusing to wear oxygen had to be placed in soft restraints at 1702. Attending provider aware. patient is now resting in bed with oxygen on, when you approach her she just yells at you and tells you to leave her alone. respirations equal and unlabored.
--- NOTE | 2023-09-19 20:08 | PC.NURSE ---
insulin not given due to following sliding scale protocol. POC 134 .
--- NOTE | 2023-09-19 20:12 | MHC.EDTECH ---
this junior technical writer assumed care of this patient at 1900. patient was found to be incontinent of both bowel and bladder. Patient also in soft restraints at this time. Nader KENNEDY helped me clean and change patient. Purewick was placed on patient due to soft restraints and due to her inability to walk at this time.
[2023-09-19 20:13] LABS: Glucose, Whole Blood 134 mg/dL (60-115)
[2023-09-19] MEDS: Haloperidol Lactate 5 MG/ML VIAL IM (23:49)
[2023-09-20] VITALS (33 sets, daily range): BP systolic 92–189; BP diastolic 38–90; PULSE 72–140; RESP 13–46; TEMP 34.6–38.6; O2SAT 65–100; BMI 38.6
--- NOTE | 2023-09-20 00:15 | PC.NURSE ---
Hospitalist notified of tachycardia, tachypnea and hypoxia. RT contacted. ER MD at bedside, plan for intubation.
--- NOTE | 2023-09-20 00:24 | PM.EVENT ---
Event Note Date of Service: 09/20/23 Event Note: Was called by the nurse for sudden onset hypoxemia in the 60s, heart rate in the 130s and tachypnea. Patient was placed on non-rebreather but continued to have significant work of breathing. Upon assessment, patient with diminished breath sounds bilaterally and significant tachypnea, tachycardia. BP 120/70. Ordered ABG, chest x-ray but decision was made to emergently intubate which was performed by ER provider. Discussed with Dr. Reid and will transfer the patient to ICU for further management. Talked to Ant, spouse and informed regarding the patient's condition. DD: aspiration vs PE vs other. Time Spent With Patient Time: Total time managing care of this patient today ____ minutes.
[2023-09-20 02:05] LABS: Glucose, Whole Blood 201 mg/dL (60-115)
[2023-09-20] MEDS: propofoL 1,000 MG/100 ML VIAL 27.27 MG IVCONT (02:08)
[2023-09-20] MEDS: Insulin Lispro 100 UNIT/ML 3 ML VIAL SUBCUT (02:14)
--- NOTE | 2023-09-20 02:45 | PC.NURSE ---
Vital signs from portable monitor as follows: 0200 BP136/65 HR93 RR18 SPO2@94% vented 0227 BP156/75 HR83 RR18 SPO2@94% vented
--- NOTE | 2023-09-20 02:51 | PC.NURSE ---
at approx 2300 pt began to get verbally aggressive w/ staff. yelling at myself and the tech. pt had bowel movement - a large formed soft stool. while attempting to provide care to clean her up pt was yelling leave me alone! you're so stupid. pt then began to swing her legs over the bedrail kicking this RN. assist of 3 people to change patient. Dr Barrett then entered the room - she messaged the hospitalist for this RN in regards to patient condition. order obtained for Zyprexa IM, med administered. approx 10min later pt was becoming more physically aggressive. she broke from the soft restraints, pulled off her case monitor and O2. she was swinging and kicking at this RN. EDT also present in the room at this time. patient sitting up at the edge of the bed still fighting staff. this RN messaged hospitalist. order for IM Haldol received. at this time pt had another large bowel movement. 4 additional staff members in room to help administer IM injection as well as to clean pt. med administered. while placing O2 and case monitor back on patient she kept ripping if off. yelling and kicking continues. pt sitting up in bed, pt noted to be more pale than previously. dusky appearance to lips. increase in work of breathing noted. resp called at this time. however patient still fighting with staff. at this time it was noted pt had yet another large bowel movement. pt was sticking her hands in it and wiping it on side rail. resp status noted to be declining. with the help of several staff members O2 monitor placed and pt noted to be 65% on room air. pt still fighting to have O2 on. finally a non-rebreather mask was able to be placed. sat 100%. lung sounds more diminished than previous. pt unable to protect her airway at this time. it was decided between ER doc and hospitalist to intubate. 0020 Etomidate 20mg administered via IV. 0021 Rocuronium 100mg administered via IV. successfully intubated w/ one attempt at 0021. size 7.5 tube 23 @ the lip. size 14 OG tube placed at 0025. Propofol 30mcg/kg/min set up and administered by this RN and BRENT Chairez. xray at bedside. placement confirmed of ET and OG tubes. temp sensing chavarria cath placed by this RN and BRENT Luz at 0056. pt resting comfortable at this time. pt was giving total bed bath by this RN and EDT and new linens placed. bed available in ICU. report called to BRENT Ahuja. pt brought to CT scan by this RN EDT and RT. then brought to ICU.
[2023-09-20 03:41] LABS: Hematocrit 36.9 % (37.0-47.0); Hemoglobin 12.3 g/dl (12.0-16.0); Mean Corpuscular HGB Conc 33.3 g/dl (31.0-35.0); Mean Corpuscular Hemoglobin 31.7 pg (27.0-33.0); Mean Corpuscular Volume 95.1 fL (80.0-98.0); Mean Platelet Volume 10.5 fL (9.4-12.3); Platelet Count 258 X10*3/uL (160-400); Red Blood Count 3.88 X10*6/uL (4.20-5.50); Red Cell Distribution Width 14.6 % (11.0-16.0); White Blood Count 16.5 X10*3/uL (4.8-10.8)
--- NOTE | 2023-09-20 03:41 | PM.EVENT ---
Documented by User: Ernestine Chapman NP 09/20/23 03:50 Event Note Date of Service: 09/20/23 Event Note: Ms. Nichole is a 67 year old female with history of hypertension, hyperlipidemia, diabetes, CHF, restrictive lung disease, UTI, encephalopathy, pseudotumor cerebri , multi-infarct dementia with multiple psychiatric consults and admissions in last 1 year last admission was 08/14/23. She was admitted again on 09/19/2023 for acute metabolic encephalopathy with transient slurred speech.? Head and brain CT showed no acute intracranial pathology.? Chest x-ray and abdominal x-ray were negative. MRI of the head and brain revealed no acute issues but did show chronic regions of encephalomalacia within the left greater than right occipitoparietal lobes, posterior aspect of the left mesial temporal lobe, and superior aspect of the left cerebellar hemisphere. Also with mild underlying microangiopathy and generalized cerebral volume loss.? The patient had been confused and uncooperative, not following commands since arrival. She was given multiple doses of zyprexa, haldol, diazepam and lorazepam over the course of 24 hours. At about midnight, the patient developed sudden onset hypoxemia with sats in the 60s, heart rate in the 130s and tachypnea. She was placed on non-rebreather but continued to have significant work of breathing. She was emergently intubated by the ER provider and transferred to the ICU for further management.? CXR post-intubation revealed an increased opacity seen overlying the right hemithorax as well as some mild increased opacity in the retrocardiac area. No pleural effusions. No pneumothorax. Chest CT is pending. Blood and sputum cultures sent. She was started on meropenem (allergy to sulfa, PCN, cephalexin) for aspiration pneumonia.? Dr Ledezma spoke with Ant, the patient?s spouse and informed him of her condition prior to transfer.? Time Spent With Patient Time: Total time managing care of this patient today ____ minutes. Documented by User: Erick Reid MD 09/20/23 09:33 Event Note Date of Service: 09/20/23
[2023-09-20 03:43] LABS: Venous Blood Gas Refer to POC result
[2023-09-20 03:44] LABS: VBG HCO3 24 mmol/L (22-26); VBG pCO2 43 mmHg; VBG pH 7.36 (7.32-7.43); VBG pO2 44 mmHg
[2023-09-20 03:59] LABS: Albumin Level 3.1 g/dL (3.5-5.0); Anion Gap 15 (12-20); Blood Urea Nitrogen 17 mg/dL (9-16); Calcium 8.5 mg/dL (8.4-10.2); Carbon Dioxide 23 mmol/L (22-29); Chloride 110 mmol/L (96-108); Creatinine Clr Calc Pharmacy 68.2; Estimated Glomerular Filt Rate > 60; Glucose Fasting 208 mg/dL (60-99); Magnesium 1.9 mg/dL (1.6-2.6); Phosphorus 2.2 mg/dL (2.7-4.5); Potassium 3.8 mmol/L (3.3-5.1); Sodium 144 mmol/L (135-145)
[2023-09-20] MEDS: propofoL 1,000 MG/100 ML VIAL 21.82 MG IVCONT ×3 (03:59→22:51)
[2023-09-20] MEDS: fentaNYL citrate/NS 1,000 MCG/100 ML PLAST..BAG 5 MCG IVCONT (04:00)
[2023-09-20] MEDS: Albumin Human 25 % 100 ML IV ×2 (04:24→22:20)
--- NOTE | 2023-09-20 05:07 | W.PM.CCHP ---
Procedures Date of Service Date of Service: 09/20/23 <Ernestine Chapman NP - Last Filed: 09/20/23 05:23> 09/20/23 <Erick Reid MD - Last Filed: 09/20/23 09:33> Central Line Placement Right IJ: Central Line Comments: The right neck was widely prepped and draped in full sterile fashion.? Under US? guidance, the right IJ vein was cannulated on the 1st pass of the 18 g thin wall needle, with return of dark, nonpulsatile blood. ? The wire was threaded without incident.? The 16 cm x 7 Emir[place] triple-lumen CVC was advanced into the vein up to the hub via the Seldinger technique without incident.? There was good blood return x3.? The catheter was sutured x2 and a Biopatch and dry sterile dressing were applied. Postop chest x-ray showed the line in good position with no pneumothorax.? The patient tolerated the procedure well with no complications. <Ernestine Chapman NP - Last Filed: 09/20/23 05:23> Consent for Procedure: Emergent-no informed consent obtained <Ernestine Chapman NP - Last Filed: 09/20/23 05:23> Time out performed: Yes <LEEANNE Hopkins Last Filed: 09/20/23 05:23> Sterile Technique Used: Yes <LEEANNE Hopkins Last Filed: 09/20/23 05:23> Patient placed on monitor/pulse ox: Yes <LEEANNE Hopkins Last Filed: 09/20/23 05:23> prep: mask, gown and gloves <LEEANNE Hopkins Last Filed: 09/20/23 05:23> Central line prep: Chlorhexidine scrub and sterile drapes applied <LEEANNE Hopkins Last Filed: 09/20/23 05:23> Local anesthesia used: lidocaine 1% <LEEANNE Hopkins Last Filed: 09/20/23 05:23> Amount of anesthesia used (ml): 3 <LEEANNE Hopkins Last Filed: 09/20/23 05:23> Ultrasound used for placement: Yes <LEEANNE Hopkins Last Filed: 09/20/23 05:23> Central line lumen inserted: triple <Ernestine Chapman NP - Last Filed: 09/20/23 05:23> Post procedure: sutured in place, good blood return, all ports aspirated, flushed, capped and sterile dressing applied <LEEANNE Hopkins Last Filed: 09/20/23 05:23> Patient tolerated procedure: well and no complications <LEEANNE Hopkins Last Filed: 09/20/23 05:23> Complications: none <Ernestine Chapman NP - Last Filed: 09/20/23 05:23>
--- NOTE | 2023-09-20 05:51 | HO.SKINPHOTO ---
Location: Coccyx Category: MASD
[2023-09-20 05:57] LABS: Glucose, Whole Blood 158 mg/dL (60-115)
[2023-09-20] MEDS: Pantoprazole Sodium 40 MG/10 ML VIAL IVPUSH (05:58)
--- NOTE | 2023-09-20 06:05 | PC.NURSE ---
Pt admitted to ICU from ED at approx 0200. Upon initial assessment- pt sedated on propofol gtt, RASS +1, unable to redirect/follow commands, ALONSO. Fentanyl gtt added for comfort/vent synchrony. Tmax 99.5 via core bladder probe. NSR on tele, HR 70s with occasional PACs. At approx 0400, pt had 10 beat run of NSVT, STREET SWEEPER Ari aware. SBP > 90, MAP > 60. CVC placed to R IJ by STREET SWEEPER, placement confirmed with pCXR. 100 mL albumin IV given x1 and sedation titrated per NOV. ETT #7.5, 23 cm at lip. On AC settings. Sputum sample collected. NGT to LIWS, scant amount of bilious output. +BM. Urinary catheter in place, UOP approx 30 ml/hr. ?MASD to coccyx/gluteal cleft, skin blanchable, picture uploaded in EMR. CHG bath given. Repositioned in bed q2hr. Bed locked in low position. Family aware of pt status/plan of care.
[2023-09-20] MEDS: 0.9 % Sodium Chloride Flush 3 ML SYRINGE IVFLUSH ×3 (07:28→22:51)
[2023-09-20] MEDS: Chlorhexidine Gluc Oral Rinse 15 ML MOUTHWASH BUCCAL ×3 (08:02→21:18)
[2023-09-20] MEDS: Enoxaparin Sodium 40 MG/0.4 ML SYRINGE SUBCUT (08:02)
[2023-09-20] MEDS: Baclofen 10 MG TABLET PO ×3 (08:09→21:18)
[2023-09-20] MEDS: levoFLOXacin/D5W 750 MG/150 ML PIGGYBACK 100 MG IV (08:10)
[2023-09-20] MEDS: Nystatin Powder 15 GM BOTTLE 1 APPL TOPICAL ×3 (08:19→20:32)
--- OUTSIDE RECORDS SUMMARY | 2023-09-20 08:36 | XMS_ITS | Continuity of Care Document ---
Author Name Unknown Organization [facility] Address [address] [place] [id number]- Care Team Providers Care Human Resources Advisor Name Role Phone Michael ARANA, Chris Primary Care Physician Encounter [facility] Date(s): 03/30/20 - 04/29/20 [facility] [address] [place] [id number]- [facility] Attending Physician: Admjose, Dexter8 Admitting Physician: AdmtrRommel Referring Physician: Admtr, Ar8 Allergies, Adverse Reactions, Alerts Substance Reaction Severity Status sulfa drugs rash Active Keflex Rash Itchy Active Imitrex palpitations Active Topamax LOST VISION FOR A WK Active Medications Atenolol 25, mg, 0, 0, 05/29/06 12:08:09, Print ADONAY Number, Constant Indicator Start Date: 05/29/06 Status: Ordered baclofen 10 mg oral tablet 10 mg, 1, tablet, By Mouth, 3 times a day, Refills 0, Maintenance, 01/13/16 14:09:07 Start Date: 01/13/16 Status: Ordered Calcium 500+D 1 tablet, 2 times a day, 0 Refills, Maintenance, 01/13/16 14:19:11 Start Date: 01/13/16 Status: Ordered clonazePAM 0.5 mg oral tablet 1 tablet = 0.5 mg, By Mouth, Daily at bedtime, 0 Refills, Maintenance, 01/13/16 14:18:51 Start Date: 01/13/16 Status: Ordered duloxetine 30 mg oral enteric coated capsule 1 capsule = 30 mg, By Mouth, 2 times a day, (do not crush or chew), # 60 capsule, 0 Refills, Maintenance, 01/13/16 14:09:58, EC Capsule Start Date: 01/13/16 Status: Ordered Elavil Tablet 25, mg, 0, 0, 05/29/06 12:09:00, Print ADONAY Number, Constant Indicator Start Date: 05/29/06 Status: Ordered Fish Oil By Mouth, 0 Refills, Maintenance, 01/13/16 14:19:22 Start Date: 01/13/16 Status: Ordered gabapentin 300 mg oral capsule 300 mg, 1, capsule, By Mouth, 2 times a day, Refills 0, Maintenance, 01/13/16 14:10:45 Start Date: 01/13/16 Status: Ordered glyburide 2.5 mg oral tablet 2 tablet = 5 mg, By Mouth, 2 times a day, # 30 tablet, 0 Refills, Maintenance, Tablet Start Date: 12/17/09 Status: Ordered hydrochlorothiazide 25 mg oral tablet 25 mg, 1, tablet, By Mouth, Daily, Refills 0, Maintenance, 01/13/16 14:13:54 Start Date: 01/13/16 Status: Ordered lisinopril 20 mg oral tablet 1 tablet, By Mouth, Daily, # 30 tablet, 0 Refills, Maintenance, Tablet Start Date: 12/17/09 Status: Ordered meclizine 25 mg oral tablet 1 tablet = 25 mg, By Mouth, Daily, PRN as needed for dizziness, 0 Refills, Maintenance, 01/13/16 14:16:27, Tablet Start Date: 01/13/16 Status: Ordered metFORMIN 500 mg oral tablet 1 tablet = 500 mg, By Mouth, 2 times a day, # 60 tablet, 0 Refills, Maintenance, 01/13/16 14:14:50,Tablet Start Date: 01/13/16 Status: Ordered NovoLOG Mix 70/30 FlexPen subcutaneous suspension = 7 units, Subcutaneous Injection, 2 times a day, # 3 mL, 0 Refills, Maintenance, 01/13/16 14:16:05, Suspension Start Date: 01/13/16 Status: Ordered omeprazole 20 mg oral enteric coated capsule 1 capsule, By Mouth, 2 times a day, # 30 capsule, 0 Refills, Maintenance, EC Capsule Start Date: 12/17/09 Status: Ordered oxyCODONE 5 mg oral tablet 5 mg, 1, tablet, By Mouth, Every 4 hours, Refills 0, Tot. Refills 0, Maintenance, 01/26/16 7:50:39 Start Date: 01/26/16 Status: Ordered promethazine 25 mg oral tablet 1 tablet = 25 mg, By Mouth, Every 6 hours, 0 Refills, Maintenance, 01/13/16 14:17:45 Start Date: 01/13/16 Status: Ordered rOPINIRole 0.25 mg oral tablet 1 tablet = 0.25 mg, By Mouth, 2 times a day with meals, # 90 tablet, 0 Refills, Maintenance, 01/13/16 14:11:49, Tablet Start Date: 01/13/16 Status: Ordered Tylenol Extra Strength = 1,000 mg, By Mouth, Every 6 hours, 0 Refills, Maintenance, 01/13/16 14:18:17 Start Date: 01/13/16 Status: Ordered Vitamin B12 0 Refills, Maintenance, 01/13/16 14:19:32 Start Date: 01/13/16 Status: Ordered Problem List Condition Effective Dates Status Health Status Inform ant Adverse effects of medication(Confirmed) 1 Active Diabetes mellitus(Confirmed) Active History of surgery(Confirmed) 2 Active History of vertigo(Confirmed) Active Use of opiates for therapeut ic purposes(Confirmed) Active Obesity(Confirmed) Active Shoulder pain(Confirmed) Active Thoracic back pain(Confirmed) Active 1Topiramate: Temporary loss of vision 2PROC. DATE: 07/09/2006 DIS. DATE: PREOPERATIVE DIAGNOSIS: Pseudotumor cerebri. POSTOPERATIVE DIAGNOSIS: Pseudotumor cerebri. PROCEDURE PERFORMED: Lumboperitoneal shunt. SURGEON: Manuel Sandoval M.D. and Debi Lao M.D. Social History Social History Type Response Smoking Status Never smoker entered on: 01/13/16 Sex
--- OUTSIDE RECORDS SUMMARY | 2023-09-20 08:36 | XMS_ITS | Continuity of Care Document ---
Author Name Unknown Organization [facility] Address [address] [place] [id number]- Care Team Providers Care Ground Crewman Name Role Phone Michael ARANA, Chris Primary Care Physician Encounter [facility] [place] Date(s): 12/16/19 - 12/26/19 [facility] [address] [place] [id number]- [facility] Attending Physician: Rommel Beauchamp Admitting Physician: AdmtrRommel Referring Physician: Admtr ArKeanu Allergies, Adverse Reactions, Alerts Substance Reaction Severity [...]
--- OUTSIDE RECORDS SUMMARY | 2023-09-20 08:36 | XMS_ITS | Continuity of Care Document ---
Author Name Unknown Organization [facility] Address [address] [place] [phone]- Care Team Providers Care Edge Blacker Name Role Phone Michael ARANA, Chris Primary Care Physician Encounter [facility] [place] Date(s): 04/15/20 - 05/15/20 [facility] [address] [place] [id number]- [facility] Allergies, Adverse Reactions, Alerts Substance Reaction Severity [...]
--- OUTSIDE RECORDS SUMMARY | 2023-09-20 08:36 | XMS_ITS | Continuity of Care Document ---
Author Name Unknown Organization [facility] Address [address] [place] [phone]- Care Team Providers Care Agricultural Pilot Name Role Phone Michael ARANA, Chris Primary Care Physician [phone] [id number] Date[facility]25[facility] - [facility]15/20 [facility] [address] [place] [id number]- [facility] Attending Physician: Hesham Duran MD Admitting Physician: Hesham Duran MD Referring Physician: Hesham Cunha MD, I Allergies, Adverse Reactions, Alerts Substance Reaction Severity [...] 01/13/16 14:18:51 Start Date: 01/13/16 Status: Ordered Diflucan 200 mg oral tablet 1 tablet = 200 mg, By Mouth, Daily, for 14 days, # 14 tablet, 0 Refills, Acute 01/27/20 14:33:00 EDT, 01/13/20 14:33:00 EDT, Tablet, [id number] Start Date: 01/13/20 Stop Date: 01/27/20 Status: Ordered duloxetine 30 mg oral enteric [...]
--- OUTSIDE RECORDS SUMMARY | 2023-09-20 08:36 | XMS_ITS | Continuity of Care Document ---
Author Name Unknown Organization [facility] Address [address] [place] [address]- Care Team Providers Care Director Of Curriculum And Instruction Name Role Phone Michael ARANA, Chris Primary Care Physician [phone] Encounter [facility] [place] Date(s): 03/19/20 - 04/18/20 [facility] [address] [place] [address]- [facility] Allergies, Adverse Reactions, Alerts Substance Reaction Severity [...]
--- OUTSIDE RECORDS SUMMARY | 2023-09-20 08:36 | XMS_ITS | Continuity of Care Document ---
Author Name Unknown Organization [facility] Address [address] [place] [phone]- Care Team Providers Care Soldering Inspector Name Role Phone Michael ARANA, Chris Primary Care Physician Encounter [facility] Date(s): 06/04/20 - 06/06/[address] [id number]- [facility] Discharge Disposition: A-D/C Home Attending Physician: Ezekiel ARANA, Jemal Matias Admitting Physician: Lewis Morales MD Referring Physician: Not on Staff, Referring MD Allergies, Adverse Reactions, Alerts Substance Reaction Severity Status sulfa drugs rash Active Keflex Rash Itchy Active Imitrex palpitations Active Topamax LOST VISION FOR A WK Active Medications Calcium 500+D 1 tablet, 2 times a day, 0 Refills, Maintenance, 01/13/16 14:19:11 Start Date: 01/13/16 Status: Ordered duloxetine 30 [...] 01/13/16 14:13:54 Start Date: 01/13/16 Status: Ordered Lantus Inj 0.25 mL = 25 units, Subcutaneous Injection, Daily at bedtime, 0 Refills, Maintenance, 06/06/20 9:59:00 EDT, Injection Start Date: 06/06/20 Status: Ordered lisinopril 20 mg oral tablet 1 tablet, By Mouth, Daily, # 30 tablet, 0 Refills, Maintenance, Tablet Start Date: 12/17/09 Status: Ordered omeprazole 20 mg oral enteric coated capsule 1 capsule, By Mouth, 2 times a day, # 30 capsule, 0 Refills, Maintenance, EC Capsule Start Date: 12/17/09 Status: Ordered SEROquel 25 mg oral tablet 25 mg, 1, tablet, By Mouth, 2 times a day, # 60 tablet, Refills 0, Tot. Refills 0, Maintenance, 06/06/20 8:34:00 EDT, Route to Pharmacy Electronically, [facility], 155, cm, 06/06/20 4:58:00 EDT, Height, 90.7, kg, 06/04/20 19:04:00 EDT, D... Start Date: 06/06/20 Stop Date: 07/06/20 Status: Ordered Tylenol Extra Strength = 1,000 [...] Manuel Sandoval M.D. and Debi Lao M.D. Results Orders for Microbiology Reports Name Date Blood Culture 06/04/20 Blood Culture #2 06/04/20 Microbiology Reports TEST:Blood Culture STATUS:Unauthenticated BODY SITE: SOURCE:Blood COLLECTED DATE/TIME:06/04/20 3:10 PM Blood Culture SPECIMEN DESCRIPTION : BLOOD LEFT AC SPECIAL REQUESTS : NONE CULTURE : NO GROWTH AFTER 24 HOURS REPORT STATUS : PRELIMINARY REPORT TEST:Blood Culture, Second Order STATUS:Unauthenticated BODY SITE: SOURCE:Blood COLLECTED DATE/TIME:06/04/20 3:10 PM Blood Culture, Second Order SPECIMEN DESCRIPTION : BLOOD RIGHT AC SPECIAL REQUESTS : NONE CULTURE : NO GROWTH AFTER 24 HOURS REPORT STATUS : PRELIMINARY REPORT Radiology Reports * Exam Date Time Procedure Performing Provider Status 06/04/20 8:42 AM Chest 2 Views Frontal and Lat Lita Peters; Auth (Verified) Notes: (Chest 2 Views Frontal and Lat) Reason For Exam: Shortness of Breath, Fever;Other: RESULT: Chest 2 Views Frontal and Lat Chest 2 Views Frontal and Lat Hx of Present Illness: AMS, Lower abdominal pain radiating to back, painful urination for 5 weeks Reason: Shortness of Breath, COMPARISON: November 11, 2012 FINDINGS: LINES AND TUBES: None. LUNGS AND PLEURA: Lung volumes are low, but the lungs are grossly clear. Slight prominence of the central pulmonary vasculature is exaggerated by the low lung volumes. No pleural effusion. No pneumothorax. HEART, MEDIASTINUM AND ASHLEY: Heart is normal in size. Normal mediastinal and hilar contour. BONES AND SOFT TISSUES: No acute abnormality. There has been posterior spinal fusion of T2-T8 with a spacer at the T5 level. Kyphosis centered over this region. Diffuse osteopenia. IMPRESSION: No acute cardiopulmonary process. WSN: [id number] Ordering Physician: Natalie Francisco Dictated By: Agustin Baig MD Dictated Date/Time: 06/04/20 8:51 am Reviewed By: Agustin Baig MD Signed By: Agustin Baig MD Signed Date/Time: 06/04/20 8:51 am Transcribed By: PRERNA Transcribed Date/Time: 06/04/20 8:47 am Vital Signs Most recent to oldest [Reference Range]: 1 2 3 Height 155 cm (06/06/20 4:58 AM) 155 cm (06/05/20 8:02 PM) 155 cm (06/05/20 4:44 AM) Weight 90.7 kg (06/04/20 7:00 PM) 77 kg (06/04/20 4:36 PM) 77 kg (06/04/20 2:59 PM) Oxygen Saturation [94-100 %] 98 % (06/06/20 4:58 AM) 98 % (06/05/20 8:02 PM) 100 % (06/05/20 2:10 PM) Pulse Rate [55-90 bpm] 93 bpm *H* (06/06/20 4:58 AM) 85 bpm (06/05/20 8:02 PM) 87 bpm (06/05/20 2:10 PM) Body Mass Index [18.5-24.99] 37.75 *>HHI* (06/04/20 7:00 PM) 32.05 *>HHI* (06/04/20 4:36 PM) 32.05 *>HHI* (06/04/20 2:59 PM) Blood Pressure [90-138/55-84 mm Hg] 153/94mm Hg *H* (06/06/20 4:58 AM) 128/59mm Hg (06/05/20 8:02 PM) 143/57mm Hg *H* (06/05/20 2:10 PM) Respiratory Rate [16-30 br/min] 18 br/min (06/06/20 4:58 AM) 18 br/min (06/05/20 8:02 PM) 19 br/min (06/05/20 2:10 PM) Temperature [96.8-100.4 DegF] 98.3 DegF (06/06/20 4:58 AM) 98.2 DegF (06/05/20 8:02 PM) 98.9 DegF (06/05/20 2:10 PM) Mode of Delivery (Oxygen) Room air (06/06/20 4:58 AM) Room air (06/05/20 8:02 PM) Room air (06/05/20 2:10 PM) Blood pressure sites Arm, right (06/06/20 4:58 AM) Arm, left (06/05/20 8:02 PM) Arm, left (06/05/20 2:10 PM) Temperature Route Oral (06/06/20 4:58 AM) Oral (06/05/20 8:02 PM) Oral (06/05/20 2:10 PM) Dry Weight 90.7 kg (06/04/20 7:00 PM) 77 kg (06/04/20 4:36 PM) 77 kg (06/04/20 2:59 PM) Social History Social History Type Response Smoking Status Never smoker entered on: 01/13/16 Sex
--- OUTSIDE RECORDS SUMMARY | 2023-09-20 08:36 | XMS_ITS | Continuity of Care Document ---
Author Name Unknown Organization [facility] Address [address] [place] [id number]- Care Team Providers Care Plumber Gasfitter Name Role Phone Michael ARANA, Chris Primary Care Physician Encounter [facility] [place] Date(s): 01/13/20 - 01/20/20 [facility] [address] [place] [id number]- [facility] Attending Physician: Hesham Duran MD Referring Physician: Chris Rodriguez MD Allergies, Adverse Reactions, Alerts Substance Reaction [...] 01/27/20 14:33:00 EDT, 01/13/20 14:33:00 EDT, Tablet, [id number] Start Date: 01/13/20 Stop Date: 01/27/20 Status: [...]
--- OUTSIDE RECORDS SUMMARY | 2023-09-20 08:36 | XMS_ITS | Continuity of Care Document ---
Author Name Unknown Organization [facility] Address [address] [place] [id number]- Care Team Providers Care Spar Cap Beveler Name Role Phone Michael ARANA, Chris Primary Care Physician Encounter [facility] [place] Date(s): 03/03/20 - 04/02/20 [facility] [address] [place] [id number]- [facility] Allergies, Adverse Reactions, Alerts Substance [...]
--- OUTSIDE RECORDS SUMMARY | 2023-09-20 08:36 | XMS_ITS | Continuity of Care Document ---
Author Name Unknown Organization [facility] Address [address] [place] [id number]- Care Team Providers Care Clarifier Operator Name Role Phone Michael ARANA, Chris Primary Care Physician [phone] [id number]): [facility]27[facility]20 - 02/26/20 [facility] [address] [place] [phone]- [facility] Attending Physician: Rommel Beauchamp Admitting Physician: Rommel Beauchamp Referring Physician: AdmtrRommel Allergies, Adverse Reactions, Alerts Substance Reaction Severity [...]
--- OUTSIDE RECORDS SUMMARY | 2023-09-20 08:37 | XMS_ITS | Continuity of Care Document ---
Author Name Unknown Organization [facility] Infect[facility] Address [address] [place] [id number]- Care Team Providers Care Project Consultant Name Role Phone Michael ARANA, Chris Primary Care Physician [id number] Date(s[facility] 01/09/20 - 02/12/20 [facility] [address] [place] [id number]- [facility] Attending Physician: Hesham Duran MD Referring Physician: [...]
--- OUTSIDE RECORDS SUMMARY | 2023-09-20 08:37 | XMS_ITS | Continuity of Care Document ---
Author Name Unknown Organization [facility] ter Address [address] [place] [id number]- Care Team Providers Care Cashier Name Role Phone Michael ARANA, Chris Primary Care Physician Encounter [facility] [place] Date(s): 07/30/21 - 08/01/[address] [id number] Encounter Diagnosis Hypokalemia(Final) - 07/30/21 Dementia with behavioral disturbance(Final) - 07/30/21 Urinary tract infection(Final) - 07/30/21 Discharge Disposition: A-D/C Home Attending Physician: Horace Adan MD Admitting Physician: Liu Franklin MD Referring Physician: Not on Staff, Referring MD Allergies, Adverse Reactions, Alerts Substance Reaction Severity Status penicillins RASH Moderate Active sulfa drugs rash Active Keflex Rash Itchy Active Topamax LOST VISION FOR A WK Active Imitrex palpitations Active Immunizations Given and Recorded Vaccine Date Status Refusal Reason SARS-CoV-2 (COVID-19) mRNA-1273 vaccine 01/05/21 R ecorded SARS-CoV-2 (COVID-19) mRNA-1273 vaccine 12/08/20 R ecorded Medications Calcium 500+D 1 tablet, 2 times a day, 0 Refills, Maintenance, 01/13/16 14:19:11 Start Date: 01/13/16 Status: Ordered cephalexin monohydrate 500 mg oral tablet 1 tablet = 500 mg, By Mouth, 4 times a day, for 2 days, To be started from tomorrow 08/02, # 8 tablet, 0 Refills, Acute 08/03/21 11:06:00 EST, 08/01/21 11:06:00 EST, Tablet, [id number], Partial fill upon patient request if the prescri... Start Date: 08/01/21 Stop Date: 08/03/21 Status: Ordered donepezil 5 mg oral tablet 5 mg, 1, tablet, By Mouth, Daily at bedtime, Refills 0, Maintenance, 08/01/21 11:05:00 EST, Partialfill upon patient request if the prescription is for a schedule II opioid drug. Start Date: 08/01/21 Status: Ordered duloxetine 30 mg oral enteric [...] Maintenance, Tablet Start Date: 12/17/09 Status: Ordered metoprolol 25 mg oral tablet, extended release 25 mg, XL Tablet, By Mouth, 08/01/21 9:00:00 EST Start Date: 08/01/21 Stop Date: 08/01/21 Status: Completed metoprolol 25 mg oral tablet, extended release 25 mg, 1, tablet, By Mouth, Daily, Refills 0, Maintenance, 08/01/21 11:05:00 EST, Partial fill uponpatient request if the prescription is for a schedule II opioid drug. Start Date: 08/01/21 Status: Ordered omeprazole 20 mg oral enteric coated capsule 1 capsule, By Mouth, 2 times a day, # 30 capsule, 0 Refills, Maintenance, EC Capsule Start Date: 12/17/09 Status: Ordered pantoprazole 40 mg oral delayed release tablet 1 tablet = 40 mg, By Mouth, 2 times a day, # 60 tablet, 0 Refills, Maintenance, 02/25/21 7:45:00 EDT, CR Tablet Start Date: 02/25/21 Status: Ordered SEROquel 25 mg oral tablet 25 mg, 1, tablet, By Mouth, 2 times a day, # 60 tablet, Refills 0, Tot. Refills 0, Maintenance, 06/06/20 8:34:00 EDT, Route to Pharmacy Electronically, [facility], 155, cm, 06/06/20 4:58:00 [...] of opiates for therapeut ic purposes(Confirmed) Active Obese class II(Confirmed) Active Obesity(Confirmed) Active Shoulder pain(Confirmed) Active Thoracic back pain(Confirmed) Active 1Topiramate: Temporary loss of vision 2PROC. DATE: 07/09/2006 DIS. DATE: PREOPERATIVE DIAGNOSIS: Pseudotumor cerebri. POSTOPERATIVE DIAGNOSIS: Pseudotumor cerebri. PROCEDURE PERFORMED: Lumboperitoneal shunt. SURGEON: Manuel Sandoval M.D. and Debi Lao M.D. Results Orders for Microbiology Reports Name Date Urine Culture (URINE CULTURE) 07/30/21 Microbiology Reports TEST:Urine Culture STATUS:Auth (Verified) BODY SITE: SOURCE:URINE COLLECTED DATE/TIME:07/30/21 5:33 PM Urine Culture SPECIMEN DESCRIPTION : URINE SPECIAL REQUESTS : NONE CULTURE : >100,000 COL/ML STREPTOCOCCUS VIRIDANS SPECIES SUSCEPTIBILITY TESTING NOT ROUTINELY PERFORMED ON THIS ISOLATE. REPORT STATUS : FINAL 07/31/2021 Vital Signs Most recent to oldest [Reference Range]: 1 2 3 Height 158 cm (08/01/21 12:28 PM) 158 cm (08/01/21 12: PM) 158 cm (08/01/21 7:14 AM) Weight 90 kg (07/30/21 8:55 PM) Oxygen Saturation [94-100 %] 98 % (08/01/21 12:28 PM) 97 % (08/01/21 12:26 PM) 97 % (08/01/21 7:14 AM) Pulse Rate [55-90 bpm] 87 bpm (08/01/21 12:28 PM) 84 bpm (08/01/21 12:26 PM) 85 bpm (08/01/21 9:26 AM) Body Mass Index [18.5-24.99] 36.05 *>HHI* (07/30/21 8:55 PM) Blood Pressure [90-138/55-84 mm Hg] 154/86mm Hg *H* (08/01/21 12:28 PM) 116/52mm Hg (08/01/21 12:26 PM) 168/72mm Hg *H* (08/01/21 9:26 AM) Respiratory Rate [16-30 br/min] 18 br/min (08/01/21 12:28 PM) 18 br/min (08/01/21 12:26 PM) 17 br/min (08/01/21 7:14 AM) Temperature [96.8-100.4 DegF] 98.4 DegF (08/01/21 12:28 PM) 98.2 DegF (08/01/21 12:26 PM) 97.9 DegF (08/01/21 7:14 AM) Mode of Delivery (Oxygen) Room air (08/01/21 12:26 PM) Room air (08/01/21 7:14 AM) Room air (07/31/21 10:38 PM) Blood pressure sites Arm, left (08/01/21 12:28 PM) Arm, right (08/01/21 12:26 PM) Arm, right (08/01/21 7:14 AM) Temperature Route Oral (08/01/21 12:28 PM) Oral (08/01/21 12:26 PM) Oral (08/01/21 7:14 AM) Dry Weight 90 kg (07/30/21 8:55 PM) Social History Social History Type Response Smoking Status Never smoker entered on: 01/13/16 Sex
--- NOTE | 2023-09-20 08:53 | MHC.SLORD ---
Speech Language Pathology Order Status: Patient intubated/vented. SSDS MK 2 ADVANCED OPERATOR to re-attempt swallow evaluation 24 hours+ post extubation.
--- NOTE | 2023-09-20 09:33 | P.PNCC_ITS ---
Subjective Subjective Date of Service: 09/20/23 Interval History: 67-year-old lady with underlying history of hypertension, diabetes mellitus, congestive heart failure, pseudotumor cerebri with prior shunt, Lewy body dementia admitted on 09/19/2023 with slurred speech that resolved before ER evaluation and encephalopathy. Hospital course significant for development of agitation confusion requiring multiple sedatives with subsequent aspiration requiring intubation and transferred to intensive care unit. No events overnight. Critical Care Time (minutes): 60 Physical Exam 2 Vital Signs: Vital Signs: Last Vital Signs Temp 100.8 F H 09/20/23 09:00 Pulse 77 09/20/23 09:00 Resp 18 09/20/23 09:00 BP 106/52 L 09/20/23 09:00 Pulse Ox 94 09/20/23 09:00 O2 Del Method Mechanical Ventil ation 09/20/23 09:00 O2 Flow Rate 15 09/20/23 00:10 FiO2 50 09/20/23 09:00 BMI result Body Mass Index 38.6 Const: General: no acute distress and other (Sedated on the vent) N utritional Appearance: obese Eyes: Sclerae: sclerae normal EOM: EOMs intact bilaterally Neck: Neck: Yes no lymphadenopathy, Yes trachea midline and Yes supple Resp: Effort & Inspection: normal respiratory effort and no respiratory distress Auscultation: clear to auscultation bilaterally Cardio: Rate: regular rate Rhythm: regular rhythm Heart sounds: no gallops, no murmurs and no rubs GI: Palpation (GI): Soft to palpation and Other GI palpation findings present ( Nontender) Auscultation: normal bowel sounds Extrem: General: Yes no pedal edema, No clubbing and No cyanosis Objective Data Labs 09/20/23 03:25 09/20/23 03:25 Labs: Laboratory Results - last 24 hr 09/19/23 09/19/23 09/20/23 12:37 20:04 02:02 WBC RBC Hgb Hct MCV MCH MCHC RDW Plt Count MPV Absolute Nucleated RBC Nucleated RBC % (auto) VBG pH VBG pCO2 VBG pO2 VBG HCO3 VBG O2 Saturation VBG Base Excess Sodium Potassium Chloride Carbon Dioxide Anion Gap BUN Creatinine Estim Creat Clear Calc Estimated GFR POC Glucose 188 H 134 H 201 H Fasting Glucose Calcium Phosphorus Magnesium Albumin 09/20/23 09/20/23 09/20/23 03:25 03:36 05:50 WBC 16.5 H RBC 3.88 L Hgb 12.3 Hct 36.9 L MCV 95.1 MCH 31.7 MCHC 33.3 RDW 14.6 Plt Count 258 MPV 10.5 Absolute Nucleated RBC 0.000 Nucleated RBC % (auto) 0.0 VBG pH 7.36 VBG pCO2 43 VBG pO2 44 VBG HCO3 24 VBG O2 Saturation 74.0 VBG Base Excess -1.0 Sodium 144 Potassium 3.8 Chloride 110 H Carbon Dioxide 23 Anion Gap 15 BUN 17 H Creatinine 0.82 Estim Creat Clear Calc 68.2 Estimated GFR > 60 POC Glucose 158 H Fasting Glucose 208 H Calcium 8.5 Phosphorus 2.2 L Magnesium 1.9 Albumin 3.1 L Microbiology Microbiology Results: Microbiology 09/19/23 02:01 Blood - Venous Blood Culture - Preliminary No growth after 24 hours. 09/19/23 02:01 Blood - Venous Blood Culture - Preliminary No growth after 24 hours. Progress Note: A&P Assessment and plan (1) Pulmonary aspiration: Status: Acute (2) Acute respiratory failure with hypoxia: Status: Acute (3) Obesity (BMI 30-39.9): Status: Acute (4) Diabetes mellitus with peripheral angiopathy: Status: Acute (5) Encephalopathy: Status: Acute Plan Assessment: 67-year-old lady with multiple medical issues admitted with alteration of mental status/encephalopathy versus complicated by agitation likely to baclofen withdrawal and pulmonary aspiration requiring ventilatory support Plan: Neuro: Encephalopathy, likely secondary to baclofen withdrawal, restarted on baclofen. Cardiac: No acute issues. Underlying history of chronic diastolic congestive heart failure. Pulmonary: Pulmonary aspiration requiring ventilatory support, continue to titrate off as tolerated. Renal: No acute issues. Endo: No acute issues. Underlying diabetes mellitus GI: No acute issues. ID: Aspiration pneumonia versus pneumonitis, continue Levaquin. Heme/Onc: No acute issues. Psych: No acute issues. Miscellaneous: No acute issues. Prophylaxis: Lovenox, famotidine Diet: NPO Critical care time spent: 60 minutes Quality Stroke Does the patient have a stroke diagnosis?: No VTE Prior VTE?: No VTE Risk Level:: Medical - moderate - high VTE Device Contraindication: Treatment Not Indicated VTE Drug Contraindication: N/A - Med Ordered
[2023-09-20 11:16] LABS: Glucose, Whole Blood 132 mg/dL (60-115)
[2023-09-20] MEDS: propofoL 1,000 MG/100 ML VIAL 16.36 MG IVCONT ×2 (14:00→18:17)
--- NOTE | 2023-09-20 15:54 | MHC.CM.PN ---
Pt intubated in ICU and unable to participate in CM assessment. Phone call placed to pt's spouse and HCP, Ant who states pt resides w/him, has no services and does not use DME. Ant states pt can complete ADL's w/cueing but has memory impairment secondary to Lewy Body Dementia. Discussed plan of care and potential d/c needs: Ant is receptive to a STR referral and would like a broad search initiated in his geographical area. Referrals made: HCP on file, IMM in chart. CM to follow for finalization of d/c planning.
[2023-09-20] MEDS: fentaNYL citrate/NS 1,000 MCG/100 ML PLAST..BAG 7.5 MCG IVCONT (16:03)
[2023-09-20 17:02] LABS: Glucose, Whole Blood 114 mg/dL (60-115)
[2023-09-21] VITALS (32 sets, daily range): BP systolic 93–180; BP diastolic 42–90; PULSE 66–115; RESP 16–22; TEMP 33.7–38.3; O2SAT 91–99; BMI 37.7
[2023-09-21 00:07] LABS: Glucose, Whole Blood 154 mg/dL (60-115)
[2023-09-21] MEDS: propofoL 1,000 MG/100 ML VIAL 16.36 MG IVCONT ×3 (03:47→19:09)
[2023-09-21 05:21] LABS: VBG Base Excess 1.9 mmol/L; VBG HCO3 25 mmol/L (22-26); VBG pCO2 36 mmHg; VBG pH 7.45 (7.32-7.43); VBG pO2 39 mmHg
[2023-09-21 05:30] LABS: Venous Blood Gas Refer to POC result
[2023-09-21 05:39] LABS: MANUAL DIFF FLAG NO
[2023-09-21 05:44] LABS: Basophils Percent Auto 0.4 % (0-2); Eosinophils Absolute Auto 0.3 X10*3/uL (0.0-0.4); Eosinophils Percent Auto 3.4 % (0-4); Hematocrit 30.6 % (37.0-47.0); Hemoglobin 10.2 g/dl (12.0-16.0); Imm Gran Abs Auto 0.03 X10*3/uL (0.00-0.03); Imm Gran Pct Auto 0.3 % (0.0-0.4); Lymphocytes Percent Auto 30.2 % (20-40); Mean Corpuscular HGB Conc 33.3 g/dl (31.0-35.0); Mean Corpuscular Hemoglobin 31.3 pg (27.0-33.0); Mean Corpuscular Volume 93.9 fL (80.0-98.0); Mean Platelet Volume 9.9 fL (9.4-12.3); Monocytes Absolute Auto 1.3 X10*3/uL (0.1-1.2); Monocytes Percent Auto 12.6 % (2-11); Neutrophils Absolute Auto 5.3 x10*3/uL (2.0-8.3); Neutrophils Percent Auto 53.1 % (45-73); Platelet Count 217 X10*3/uL (160-400); Red Blood Count 3.26 X10*6/uL (4.20-5.50); Red Cell Distribution Width 14.5 % (11.0-16.0); White Blood Count 9.9 X10*3/uL (4.8-10.8)
[2023-09-21 06:01] LABS: Albumin Level 3.2 g/dL (3.5-5.0); Anion Gap 11 (12-20); Blood Urea Nitrogen 18 mg/dL (9-16); Calcium 8.4 mg/dL (8.4-10.2); Carbon Dioxide 25 mmol/L (22-29); Chloride 111 mmol/L (96-108); Creatinine Clr Calc Pharmacy 68.9; Estimated Glomerular Filt Rate > 60; Glucose Random 151 mg/dL (60-115); Magnesium 1.8 mg/dL (1.6-2.6); Phosphorus 2.3 mg/dL (2.7-4.5); Potassium 3.2 mmol/L (3.3-5.1); Sodium 144 mmol/L (135-145)
[2023-09-21] MEDS: Potassium Chloride Packet 20 MEQ PACKET 40 MEQ OG-TUBE (06:18)
[2023-09-21] MEDS: 0.9 % Sodium Chloride Flush 3 ML SYRINGE IVFLUSH ×3 (06:56→23:27)
[2023-09-21] MEDS: fentaNYL citrate/NS 1,000 MCG/100 ML PLAST..BAG 5 MCG IVCONT (08:01)
[2023-09-21] MEDS: Enoxaparin Sodium 40 MG/0.4 ML SYRINGE SUBCUT (08:01)
[2023-09-21] MEDS: Famotidine/PF 20 MG/2 ML VIAL IVPUSH (08:01)
[2023-09-21] MEDS: Chlorhexidine Gluc Oral Rinse 15 ML MOUTHWASH BUCCAL ×3 (08:01→20:11)
[2023-09-21] MEDS: levoFLOXacin/D5W 750 MG/150 ML PIGGYBACK 100 MG IV (08:03)
[2023-09-21] MEDS: Baclofen 10 MG TABLET PO ×3 (08:04→20:11)
[2023-09-21] MEDS: Nystatin Powder 15 GM BOTTLE 1 APPL TOPICAL ×3 (08:04→20:11)
[2023-09-21] MEDS: Potassium Phosphate/NS 15 MMOL/250 ML PLAST..BAG 62.5 MMOL IV (09:27)
--- NOTE | 2023-09-21 09:37 | P.PNCC_ITS ---
Subjective Subjective Date of Service: 09/21/23 Interval History: 67-year-old lady with underlying history of hypertension, diabetes mellitus, congestive heart failure, pseudotumor cerebri with prior shunt, Lewy body dementia admitted on 09/19/2023 with slurred speech that resolved before ER evaluation and encephalopathy. Hospital course significant for development of agitation confusion requiring multiple sedatives with subsequent aspiration requiring intubation and transferred to intensive care unit. No events overnight. Now tolerating pressure support trial. Critical Care Time (minutes): 60 Physical Exam 2 Vital Signs: Vital Signs: Last Vital Signs Temp 100.6 F H 09/21/23 09:00 Pulse 80 09/21/23 09:00 Resp 18 09/21/23 09:00 BP 112/50 L 09/21/23 09:00 Pulse Ox 94 09/21/23 09:00 O2 Del Method Mechanical Ventil ation 09/21/23 09:00 O2 Flow Rate 15 09/20/23 00:10 FiO2 30 09/21/23 09:28 BMI result Body Mass Index 37.7 Const: General: no acute distress and other (Sedated on the vent) Eyes: Sclerae: sclerae normal EOM: EOMs intact bilaterally Neck: Neck: Yes no lymphadenopathy, Yes trachea midline and Yes supple Resp: Auscultation: clear to auscultation bilaterally Cardio: Rate: regular rate Rhythm: regular rhythm Heart sounds: no gallops, no murmurs and no rubs GI: Palpation (GI): Soft to palpation and Other GI palpation findings present ( Nontender) Auscultation: normal bowel sounds Extrem: General: Yes no pedal edema, No clubbing and No cyanosis Objective Data Labs 09/21/23 05:18 09/21/23 05:18 Labs: Laboratory Results - last 24 hr 09/20/23 09/20/23 09/21/23 11:13 16:58 00:02 WBC RBC Hgb Hct MCV MCH MCHC RDW Plt Count MPV Immature Gran % (Auto) Neut % (Auto) Lymph % (Auto) [place] % (Auto) Eos % (Auto) Baso % (Auto) Lymph # (Auto) [place] # (Auto) Eos # (Auto) Baso # (Auto) Abs Immat Gran (auto) Absolute Neuts (auto) Absolute Nucleated RBC Nucleated RBC % (auto) VBG pH VBG pCO2 VBG pO2 VBG HCO3 VBG O2 Saturation VBG Base Excess Sodium Potassium Chloride Carbon Dioxide Anion Gap BUN Creatinine Estim Creat Clear Calc Estimated GFR POC Glucose 132 H 114 154 H Random Glucose Calcium Phosphorus Magnesium Albumin 09/21/23 09/21/23 05:15 05:18 WBC 9.9 RBC 3.26 L Hgb 10.2 L Hct 30.6 L MCV 93.9 MCH 31.3 MCHC 33.3 RDW 14.5 Plt Count 217 MPV 9.9 Immature Gran % (Auto) 0.3 Neut % (Auto) 53.1 Lymph % (Auto) 30.2 [place] % (Auto) 12.6 H Eos % (Auto) 3.4 Baso % (Auto) 0.4 Lymph # (Auto) 3.0 [place] # (Auto) 1.3 H Eos # (Auto) 0.3 Baso # (Auto) 0.0 Abs Immat Gran (auto) 0.03 Absolute Neuts (auto) 5.3 Absolute Nucleated RBC 0.000 Nucleated RBC % (auto) 0.0 VBG pH 7.45 H VBG pCO2 36 VBG pO2 39 VBG HCO3 25 VBG O2 Saturation 72.0 VBG Base Excess 1.9 Sodium 144 Potassium 3.2 L Chloride 111 H Carbon Dioxide 25 Anion Gap 11 L BUN 18 H Creatinine 0.80 Estim Creat Clear Calc 68.9 Estimated GFR > 60 POC Glucose Random Glucose 151 H Calcium 8.4 Phosphorus 2.3 L Magnesium 1.8 Albumin 3.2 L Microbiology Microbiology Results: Microbiology 09/20/23 03:25 Blood - Venous Blood Culture - Preliminary No growth after 24 hours. 09/19/23 02:01 Blood - Venous Blood Culture - Preliminary No growth after 48 hours. 09/19/23 02:01 Blood - Venous Blood Culture - Preliminary No growth after 48 hours. 09/20/23 02:15 Sputum - Suctioned Gram Stain - Final 09/18/23 Unknown Urine Catheterized - Straight Catheter Urine Culture - Preliminary Culture in progress. 09/20/23 01:58 Blood - Venous Blood Culture - Final Progress Note: A&P Assessment and plan (1) Encephalopathy: Status: Acute (2) Acute respiratory failure with hypoxia: Status: Acute (3) Pulmonary aspiration: Status: Acute (4) Obesity (BMI 30-39.9): Status: Acute (5) Type 2 diabetes mellitus with unspecified complications: Status: Acute Plan Assessment: 67-year-old lady with multiple medical issues admitted with alteration of mental status/encephalopathy versus complicated by agitation likely to baclofen withdrawal and pulmonary aspiration requiring ventilatory support Plan: Neuro: Encephalopathy, improved, likely secondary to baclofen withdrawal, continue on baclofen. Cardiac: No acute issues. Underlying history of chronic diastolic congestive heart failure. Pulmonary: Pulmonary aspiration requiring ventilatory support, continue to titrate off as tolerated. Renal: No acute issues. Endo: No acute issues. Underlying diabetes mellitus GI: No acute issues. ID: Aspiration pneumonia versus pneumonitis, continue Levaquin. Heme/Onc: No acute issues. Psych: No acute issues. Miscellaneous: No acute issues. Prophylaxis: Lovenox, famotidine Diet: NPO Critical care time spent: 60 minutes Quality Stroke Does the patient have a stroke diagnosis?: No VTE Prior VTE?: No VTE Risk Level:: Medical - moderate - high VTE Device Contraindication: Treatment Not Indicated VTE Drug Contraindication: N/A - Med Ordered
--- NOTE | 2023-09-21 09:39 | P.CDIM_ITS ---
PROVIDER RESPONSE TEXT: To clarify, the appropriate diagnosis supported by the clinical indicators: Other (explain): Aspiration pneumonitis QUERY TEXT: PHYSICIAN'S DOCUMENTATION REQUEST Date of Query: 09/21/2023 09:16 AM EST Patient Name: Natalia Nichole Admit Date: 09/19/2023 Dear Erick Reid, A review of the medical record indicates additional documentation may be needed. Please review below and update the documentation accordingly. Clinical Indicators: On 09/20/23, patient started on Meropenem for aspiration pneumonia, intubated and transferred to ICU On 09/20/23: WBC 16.5 T 100.8 P 140 RR 46 BP 92/49 Please clarify which, if any, of the following is the most likely etiology of the above symptoms and treatment rendered: Sepsis Severe Sepsis Septic Shock Localized infection only, without systemic illness Indicate the site/source, such as UTI, pneumonia, etc. Other (explain) Clinically unable to determine (explain) Thank you, Mari Funes RN Use of terms such as suspected, likely, concern for, or probable (associated with a specific diagnosi s that is being evaluated, monitored, or treated as if it exists) are acceptable and can be coded in the inpatient se tting, when documented at the time of discharge. Please use your independent medical judgment in providing your response. THIS QUERY IS PART OF THE PERMANENT MEDICAL RECORD
--- NOTE | 2023-09-21 10:05 | MHC.CLN ---
F/U PT REMAINS INTUBATED AND SEDATED PT EXPECTED PROLONGED NPO STATUS AND MAY REQUIRE TF FOR NUTRITION SUPPORT CURRENTLY NPO IF TF NEEDED; RECOMMEND GLUCERNA AT MAX GOAL RATE 35ML/HR WITH 250ML FREE WATER FLUSHES Q 8 HRS TO PROVIDE 840KCALS (1416 TOTAL KCALS WITH SEDATION; 24KCALS/KG), 35G PROTEIN, 1437ML TOTAL WATER FROM FORMULA AND FLUSHES MONITOR TOLERANCE, RESIDUALS AND LYTES IF DIET ADVANCED, RECOMMEND 150DM 2GM NA DIET (IN ADDITION TO ANY [employer] DIET CONSISTENCY RECOMMENDATIONS) FOLLOWING WITH TEAM
--- NOTE | 2023-09-21 10:23 | PC.NURSE ---
Failed sedation vacation - initiated at 09. Patient arousable to name, positive tracking, following commands, RASS -1. PSV trial started at 0906/07 30% then 01/05 30%. SBP 180-190, HR 110, RR high 30's, sp02 mid 80's, RASS +2, agitated, difficult to redirect. MD notified and at bedside. Patient switched back to AC settings and resedated at 1010. RASS -2, BP 148/65, HR 89, RR 21, spO2 95% on 40% Fio2.
[2023-09-21] MEDS: Albumin Human 25 % 100 ML IV ×3 (11:04→22:56)
[2023-09-21] MEDS: Furosemide 40 MG/4 ML VIAL IVPUSH (11:05)
[2023-09-21 11:27] LABS: Glucose, Whole Blood 165 mg/dL (60-115)
[2023-09-21] MEDS: Insulin Lispro 100 UNIT/ML 3 ML VIAL SUBCUT ×2 (11:30→23:26)
[2023-09-21] MEDS: propofoL 1,000 MG/100 ML VIAL 21.82 MG IVCONT (14:29)
[2023-09-21 17:09] LABS: Glucose, Whole Blood 128 mg/dL (60-115)
[2023-09-21] MEDS: fentaNYL citrate/NS 1,000 MCG/100 ML PLAST..BAG 7.5 MCG IVCONT (22:51)
[2023-09-21 23:16] LABS: Glucose, Whole Blood 154 mg/dL (60-115)
[2023-09-22] VITALS (30 sets, daily range): BP systolic 93–141; BP diastolic 32–66; PULSE 71–100; RESP 18–25; TEMP 34.6–38.4; O2SAT 91–97; BMI 38.6
[2023-09-22] MEDS: propofoL 1,000 MG/100 ML VIAL 16.36 MG IVCONT ×2 (00:55→05:48)
[2023-09-22] MEDS: Albumin Human 25 % 100 ML IV (04:34)
[2023-09-22 05:15] LABS: MANUAL DIFF FLAG NO
[2023-09-22 05:17] LABS: Basophils Percent Auto 0.4 % (0-2); Eosinophils Absolute Auto 0.4 X10*3/uL (0.0-0.4); Eosinophils Percent Auto 4.3 % (0-4); Hematocrit 29.1 % (37.0-47.0); Hemoglobin 9.8 g/dl (12.0-16.0); Imm Gran Abs Auto 0.05 X10*3/uL (0.00-0.03); Imm Gran Pct Auto 0.5 % (0.0-0.4); Lymphocytes Absolute Auto 2.7 X10*3/uL (1.2-4.9); Lymphocytes Percent Auto 27.8 % (20-40); Mean Corpuscular HGB Conc 33.7 g/dl (31.0-35.0); Mean Corpuscular Hemoglobin 31.4 pg (27.0-33.0); Mean Corpuscular Volume 93.3 fL (80.0-98.0); Mean Platelet Volume 9.9 fL (9.4-12.3); Monocytes Absolute Auto 1.1 X10*3/uL (0.1-1.2); Monocytes Percent Auto 11.1 % (2-11); Neutrophils Absolute Auto 5.3 x10*3/uL (2.0-8.3); Neutrophils Percent Auto 55.9 % (45-73); Platelet Count 203 X10*3/uL (160-400); Red Blood Count 3.12 X10*6/uL (4.20-5.50); Red Cell Distribution Width 14.5 % (11.0-16.0); White Blood Count 9.5 X10*3/uL (4.8-10.8)
[2023-09-22 05:21] LABS: VBG Base Excess 1.5 mmol/L; VBG HCO3 24 mmol/L (22-26); VBG pCO2 34 mmHg; VBG pH 7.46 (7.32-7.43); VBG pO2 38 mmHg
[2023-09-22 05:24] LABS: Venous Blood Gas Refer to POC result
[2023-09-22 05:33] LABS: Albumin Level 3.9 g/dL (3.5-5.0); Anion Gap 17 (12-20); Blood Urea Nitrogen 15 mg/dL (9-16); Calcium 8.7 mg/dL (8.4-10.2); Carbon Dioxide 21 mmol/L (22-29); Chloride 109 mmol/L (96-108); Creatinine Clr Calc Pharmacy 69.9; Estimated Glomerular Filt Rate > 60; Glucose Random 216 mg/dL (60-115); Magnesium 1.8 mg/dL (1.6-2.6); Phosphorus 3.2 mg/dL (2.7-4.5); Potassium 3.6 mmol/L (3.3-5.1); Sodium 143 mmol/L (135-145)
[2023-09-22] MEDS: Insulin Lispro 100 UNIT/ML 3 ML VIAL SUBCUT ×4 (05:48→23:56)
[2023-09-22] MEDS: Furosemide 40 MG/4 ML VIAL IVPUSH ×2 (06:10→10:01)
[2023-09-22] MEDS: Potassium Chloride Packet 20 MEQ PACKET 40 MEQ PO (06:11)
[2023-09-22] MEDS: Chlorhexidine Gluc Oral Rinse 15 ML MOUTHWASH BUCCAL ×3 (07:53→20:03)
[2023-09-22] MEDS: Enoxaparin Sodium 40 MG/0.4 ML SYRINGE SUBCUT (07:53)
[2023-09-22] MEDS: Famotidine/PF 20 MG/2 ML VIAL IVPUSH (07:54)
[2023-09-22] MEDS: Nystatin Powder 15 GM BOTTLE 1 APPL TOPICAL ×3 (07:54→20:03)
[2023-09-22] MEDS: 0.9 % Sodium Chloride Flush 3 ML SYRINGE IVFLUSH ×3 (07:54→23:57)
[2023-09-22] MEDS: Baclofen 10 MG TABLET PO ×3 (07:54→20:03)
[2023-09-22] MEDS: Acetaminophen 325 MG TABLET 650 MG PO ×2 (08:06→20:03)
[2023-09-22] MEDS: levoFLOXacin/D5W 750 MG/150 ML PIGGYBACK 100 MG IV (08:13)
--- NOTE | 2023-09-22 10:00 | P.PNCC_ITS ---
Subjective Subjective Date of Service: 09/22/23 Interval History: 67-year-old lady with underlying history of hypertension, diabetes mellitus, congestive heart failure, pseudotumor cerebri with prior shunt, Lewy body dementia admitted on 09/19/2023 with slurred speech that resolved before ER evaluation and encephalopathy. Hospital course significant for development of agitation confusion requiring multiple sedatives with subsequent aspiration requiring intubation and transferred to intensive care unit. No events overnight. Critical Care Time (minutes): 60 Physical Exam 2 Vital Signs: Vital Signs: Last Vital Signs Temp 101.1 F H 09/22/23 09:00 Pulse 85 09/22/23 09:00 Resp 20 09/22/23 09:00 BP 118/54 L 09/22/23 09:00 Pulse Ox 96 09/22/23 09:00 O2 Del Method Mechanical Ventil ation 09/22/23 09:00 O2 Flow Rate 15 09/20/23 00:10 FiO2 30 09/22/23 09:00 BMI result Body Mass Index 38.6 Const: General: no acute distress and other (Sedated on the vent) N utritional Appearance: obese Eyes: Sclerae: sclerae normal EOM: EOMs intact bilaterally Neck: Neck: Yes no lymphadenopathy, Yes trachea midline and Yes supple Resp: Effort & Inspection: normal respiratory effort and no respiratory distress Auscultation: clear to auscultation bilaterally Cardio: Rate: regular rate Rhythm: regular rhythm Heart sounds: no gallops, no murmurs and no rubs GI: Palpation (GI): Soft to palpation and Other GI palpation findings present ( Nontender) Auscultation: normal bowel sounds Extrem: General: Yes no pedal edema, No clubbing and No cyanosis Objective Data Labs 09/22/23 05:09 09/22/23 05:09 Labs: Laboratory Results - last 24 hr 09/21/23 09/21/23 09/21/23 11:23 17:06 23:13 WBC RBC Hgb Hct MCV MCH MCHC RDW Plt Count MPV Immature Gran % (Auto) Neut % (Auto) Lymph % (Auto) [place] % (Auto) Eos % (Auto) Baso % (Auto) Lymph # (Auto) [place] # (Auto) Eos # (Auto) Baso # (Auto) Abs Immat Gran (auto) Absolute Neuts (auto) Absolute Nucleated RBC Nucleated RBC % (auto) VBG pH VBG pCO2 VBG pO2 VBG HCO3 VBG O2 Saturation VBG Base Excess Sodium Potassium Chloride Carbon Dioxide Anion Gap BUN Creatinine Estim Creat Clear Calc Estimated GFR POC Glucose 165 H 128 H 154 H Random Glucose Calcium Phosphorus Magnesium Albumin 09/22/23 09/22/23 05:09 05:15 WBC 9.5 RBC 3.12 L Hgb 9.8 L Hct 29.1 L MCV 93.3 MCH 31.4 MCHC 33.7 RDW 14.5 Plt Count 203 MPV 9.9 Immature Gran % (Auto) 0.5 H Neut % (Auto) 55.9 Lymph % (Auto) 27.8 [place] % (Auto) 11.1 H Eos % (Auto) 4.3 H Baso % (Auto) 0.4 Lymph # (Auto) 2.7 [place] # (Auto) 1.1 Eos # (Auto) 0.4 Baso # (Auto) 0.0 Abs Immat Gran (auto) 0.05 H Absolute Neuts (auto) 5.3 Absolute Nucleated RBC 0.000 Nucleated RBC % (auto) 0.0 VBG pH 7.46 H VBG pCO2 34 VBG pO2 38 VBG HCO3 24 VBG O2 Saturation 66.0 VBG Base Excess 1.5 Sodium 143 Potassium 3.6 Chloride 109 H Carbon Dioxide 21 L Anion Gap 17 BUN 15 Creatinine 0.80 Estim Creat Clear Calc 69.9 Estimated GFR > 60 POC Glucose Random Glucose 216 H Calcium 8.7 Phosphorus 3.2 Magnesium 1.8 Albumin 3.9 Microbiology Microbiology Results: Microbiology 09/20/23 03:25 Blood - Venous Blood Culture - Preliminary No growth after 48 hours. 09/20/23 02:15 Sputum - Suctioned Gram Stain - Final 09/20/23 02:15 Sputum - Suctioned Sputum Culture - Preliminary Culture in progress. 09/18/23 Unknown Urine Catheterized - Straight Catheter Urine Culture - Final 09/19/23 02:01 Blood - Venous Blood Culture - Preliminary No growth after 48 hours. 09/19/23 02:01 Blood - Venous Blood Culture - Preliminary No growth after 48 hours. 09/20/23 01:58 Blood - Venous Blood Culture - Final Progress Note: A&P Assessment and plan (1) Encephalopathy: Status: Acute (2) Acute respiratory failure with hypoxia: Status: Acute (3) Pulmonary aspiration: Status: Acute (4) Dementia: Status: Acute (5) Diabetes mellitus with peripheral angiopathy: Status: Acute Plan Assessment: 67-year-old lady with multiple medical issues admitted with alteration of mental status/encephalopathy versus complicated by agitation likely to baclofen withdrawal and pulmonary aspiration requiring ventilatory support Plan: Neuro: Encephalopathy, improved, likely secondary to baclofen withdrawal, continue on baclofen. Cardiac: No acute issues. Underlying history of chronic diastolic congestive heart failure. Pulmonary: Pulmonary aspiration requiring ventilatory support, continue to titrate off as tolerated. Renal: No acute issues. Endo: No acute issues. Underlying diabetes mellitus GI: No acute issues. ID: Aspiration pneumonia versus pneumonitis, continue Levaquin. Heme/Onc: No acute issues. Psych: No acute issues. Miscellaneous: No acute issues. Prophylaxis: Lovenox, famotidine Diet: Tube feeds Critical care time spent: 60 minutes Quality Stroke Does the patient have a stroke diagnosis?: No VTE Prior VTE?: No VTE Risk Level:: Medical - moderate - high VTE Device Contraindication: Treatment Not Indicated VTE Drug Contraindication: N/A - Med Ordered
[2023-09-22 11:57] LABS: Glucose, Whole Blood 243 mg/dL (60-115)
[2023-09-22] MEDS: propofoL 1,000 MG/100 ML VIAL 5.45 MG IVCONT (13:27)
--- NOTE | 2023-09-22 14:16 | PC.NURSE ---
Assumed care of pt 0700 Lasix 40 mg IVP given Per MD, sedation vacation initated 10:00. Propofol and fentanyl gtts paused. 11:00 PSV trial initated. vent settings PSV 8/5.0 30%. tidal volumes 200-250. Pt opens eyes to name briefly, drowsy. 11:30 pt follows commands to move b/l feet, wiggle toes. Does not follow commands to move arms or thumbs up. 13:00 Pt still drowsy, does not sustain eye contact with calling name. 13:25 Pt has intermittent low tidal volume alarms on vent. Pt still drowsy, RASS -1. Per MD, change vent settings back to AC, resume light sedation Propofol @10 for vent synchrony. Propofol gtt resumed @10, fentanyl gtt @25.
[2023-09-22] MEDS: fentaNYL citrate/NS 1,000 MCG/100 ML PLAST..BAG 2.5 MCG IVCONT (16:53)
[2023-09-22 17:59] LABS: Glucose, Whole Blood 204 mg/dL (60-115)
[2023-09-22 23:55] LABS: Glucose, Whole Blood 212 mg/dL (60-115)
[2023-09-22] MEDS: propofoL 1,000 MG/100 ML VIAL 10.91 MG IVCONT (23:56)
[2023-09-23] VITALS (26 sets, daily range): BP systolic 103–174; BP diastolic 39–79; PULSE 66–102; RESP 12–30; TEMP 34.6–37.9; O2SAT 90–97; BMI 37.9
[2023-09-23 05:25] LABS: MANUAL DIFF FLAG NO
[2023-09-23 05:27] LABS: Basophils Absolute Auto 0.1 X10*3/uL (0.0-0.2); Basophils Percent Auto 0.5 % (0-2); Eosinophils Absolute Auto 0.5 X10*3/uL (0.0-0.4); Eosinophils Percent Auto 5.2 % (0-4); Hematocrit 32.1 % (37.0-47.0); Imm Gran Abs Auto 0.08 X10*3/uL (0.00-0.03); Imm Gran Pct Auto 0.8 % (0.0-0.4); Lymphocytes Absolute Auto 2.6 X10*3/uL (1.2-4.9); Lymphocytes Percent Auto 26.3 % (20-40); Mean Corpuscular HGB Conc 34.3 g/dl (31.0-35.0); Mean Corpuscular Hemoglobin 31.6 pg (27.0-33.0); Mean Corpuscular Volume 92.2 fL (80.0-98.0); Mean Platelet Volume 9.8 fL (9.4-12.3); Monocytes Absolute Auto 1.1 X10*3/uL (0.1-1.2); Neutrophils Absolute Auto 5.5 x10*3/uL (2.0-8.3); Neutrophils Percent Auto 56.2 % (45-73); Platelet Count 231 X10*3/uL (160-400); Red Blood Count 3.48 X10*6/uL (4.20-5.50); Red Cell Distribution Width 14.2 % (11.0-16.0); White Blood Count 9.8 X10*3/uL (4.8-10.8)
[2023-09-23 05:32] LABS: VBG Base Excess 6.8 mmol/L; VBG HCO3 30 mmol/L (22-26); VBG pCO2 41 mmHg; VBG pH 7.48 (7.32-7.43); VBG pO2 45 mmHg
[2023-09-23 05:33] LABS: Venous Blood Gas Refer to POC result
[2023-09-23 05:50] LABS: Albumin Level 3.9 g/dL (3.5-5.0); Anion Gap 15 (12-20); Blood Urea Nitrogen 15 mg/dL (9-16); Calcium 9.2 mg/dL (8.4-10.2); Carbon Dioxide 27 mmol/L (22-29); Chloride 105 mmol/L (96-108); Estimated Glomerular Filt Rate > 60; Glucose Random 266 mg/dL (60-115); Magnesium 1.8 mg/dL (1.6-2.6); Phosphorus 3.4 mg/dL (2.7-4.5); Potassium 3.7 mmol/L (3.3-5.1); Sodium 143 mmol/L (135-145)
[2023-09-23] MEDS: Insulin Lispro 100 UNIT/ML 3 ML VIAL SUBCUT ×4 (06:02→22:01)
[2023-09-23] MEDS: propofoL 1,000 MG/100 ML VIAL 5.45 MG IVCONT (07:35)
[2023-09-23] MEDS: levoFLOXacin/D5W 750 MG/150 ML PIGGYBACK 100 MG IV (07:40)
[2023-09-23] MEDS: 0.9 % Sodium Chloride Flush 3 ML SYRINGE IVFLUSH ×2 (07:41→14:12)
[2023-09-23] MEDS: Baclofen 10 MG TABLET PO ×2 (07:41→20:29)
[2023-09-23] MEDS: Chlorhexidine Gluc Oral Rinse 15 ML MOUTHWASH BUCCAL (07:41)
[2023-09-23] MEDS: Enoxaparin Sodium 40 MG/0.4 ML SYRINGE SUBCUT (07:41)
--- NOTE | 2023-09-23 08:12 | PC.RT ---
RT called this am, RN sedation holiday at this time. Pt placed on psv 8/ peep 5. Pt agitated but able to follow some commands. Pt became more agitated in bed, disconnecting from the vent x 2. Moderate sedation restarted , MD aware. Pt then desaturated to 85%, fio2 inc to 40%, returned to a/c. Spo2 cont 87%, fio2 to 50% and peep to 7.5. RN aware. Pt settle on a/c spo2 91%.
[2023-09-23] MEDS: Famotidine/PF 20 MG/2 ML VIAL IVPUSH (09:00)
[2023-09-23] MEDS: Nystatin Powder 15 GM BOTTLE 1 APPL TOPICAL ×3 (09:00→20:27)
--- NOTE | 2023-09-23 10:15 | P.PNCC_ITS ---
Subjective Subjective Date of Service: 09/23/23 Interval History: 67-year-old lady with underlying history of hypertension, diabetes mellitus, congestive heart failure, pseudotumor cerebri with prior shunt, Lewy body dementia admitted on 09/19/2023 with slurred speech that resolved before ER evaluation and encephalopathy. Hospital course significant for development of agitation confusion requiring multiple sedatives with subsequent aspiration requiring intubation and transferred to intensive care unit. No events overnight. Improved tolerance of pressure support trial today. Extubated uneventfully today. Critical Care Time (minutes): 60 Physical Exam 2 Vital Signs: Vital Signs: Last Vital Signs Temp 99.7 F 09/23/23 10:00 Pulse 84 09/23/23 10:00 Resp 16 09/23/23 10:00 BP 153/56 H 09/23/23 10:00 Pulse Ox 93 09/23/23 10:00 O2 Del Method Oxymask 09/23/23 10:00 O2 Flow Rate 7 09/23/23 10:00 FiO2 40 09/23/23 09:48 BMI result Body Mass Index 37.9 Const: General: no acute distress, alert and awake Eyes: Sclerae: sclerae normal EOM: EOMs intact bilaterally Neck: Neck: Yes no lymphadenopathy, Yes trachea midline and Yes supple Resp: Effort & Inspection: normal respiratory effort and no respiratory distress Auscultation: clear to auscultation bilaterally Cardio: Rate: tachycardic Rhythm: regular rhythm Heart sounds: no gallops, no murmurs and no rubs GI: Palpation (GI): Soft to palpation and Other GI palpation findings present ( Nontender) Auscultation: normal bowel sounds Extrem: General: Yes no pedal edema, No clubbing and No cyanosis Objective Data Labs 09/23/23 05:15 09/23/23 05:15 Labs: Laboratory Results - last 24 hr 09/22/23 09/22/23 09/22/23 11:53 17:55 23:49 WBC RBC Hgb Hct MCV MCH MCHC RDW Plt Count MPV Immature Gran % (Auto) Neut % (Auto) Lymph % (Auto) [place] % (Auto) Eos % (Auto) Baso % (Auto) Lymph # (Auto) [place] # (Auto) Eos # (Auto) Baso # (Auto) Abs Immat Gran (auto) Absolute Neuts (auto) Absolute Nucleated RBC Nucleated RBC % (auto) VBG pH VBG pCO2 VBG pO2 VBG HCO3 VBG O2 Saturation VBG Base Excess Sodium Potassium Chloride Carbon Dioxide Anion Gap BUN Creatinine Estim Creat Clear Calc Estimated GFR POC Glucose 243 H 204 H 212 H Random Glucose Calcium Phosphorus Magnesium Albumin 09/23/23 09/23/23 05:15 05:22 WBC 9.8 RBC 3.48 L Hgb 11.0 L Hct 32.1 L MCV 92.2 MCH 31.6 MCHC 34.3 RDW 14.2 Plt Count 231 MPV 9.8 Immature Gran % (Auto) 0.8 H Neut % (Auto) 56.2 Lymph % (Auto) 26.3 [place] % (Auto) 11.0 Eos % (Auto) 5.2 H Baso % (Auto) 0.5 Lymph # (Auto) 2.6 [place] # (Auto) 1.1 Eos # (Auto) 0.5 H Baso # (Auto) 0.1 Abs Immat Gran (auto) 0.08 H Absolute Neuts (auto) 5.5 Absolute Nucleated RBC 0.000 Nucleated RBC % (auto) 0.0 VBG pH 7.48 H VBG pCO2 41 VBG pO2 45 VBG HCO3 30 H VBG O2 Saturation 79.0 VBG Base Excess 6.8 Sodium 143 Potassium 3.7 Chloride 105 Carbon Dioxide 27 Anion Gap 15 BUN 15 Creatinine 0.79 Estim Creat Clear Calc 70.0 Estimated GFR > 60 POC Glucose Random Glucose 266 H Calcium 9.2 Phosphorus 3.4 Magnesium 1.8 Albumin 3.9 Microbiology Microbiology Results: Microbiology 09/20/23 02:15 Sputum - Suctioned Gram Stain - Final 09/20/23 02:15 Sputum - Suctioned Sputum Culture - Final 09/20/23 03:25 Blood - Venous Blood Culture - Preliminary No growth after 48 hours. 09/18/23 Unknown Urine Catheterized - Straight Catheter Urine Culture - Final 09/19/23 02:01 Blood - Venous Blood Culture - Preliminary No growth after 48 hours. 09/19/23 02:01 Blood - Venous Blood Culture - Preliminary No growth after 48 hours. 09/20/23 01:58 Blood - Venous Blood Culture - Final Progress Note: A&P Assessment and plan (1) Encephalopathy: Status: Acute (2) Acute respiratory failure with hypoxia: Status: Acute (3) Pulmonary aspiration: Status: Acute (4) Restrictive lung disease: Status: Acute (5) Obesity (BMI 30-39.9): Status: Acute (6) Diabetes mellitus with peripheral angiopathy: Status: Acute Plan Assessment: 67-year-old lady with multiple medical issues admitted with alteration of mental status/encephalopathy versus complicated by agitation likely to baclofen withdrawal and pulmonary aspiration requiring ventilatory support Plan: Neuro: Encephalopathy, improved, likely secondary to baclofen withdrawal, continue on baclofen. Cardiac: No acute issues. Underlying history of chronic diastolic congestive heart failure. Pulmonary: Pulmonary aspiration initial requiring ventilatory support, extubated today. Continue to titrate off supplemental oxygen as tolerated. Renal: No acute issues. Endo: No acute issues. Underlying diabetes mellitus GI: No acute issues. ID: Aspiration pneumonia versus pneumonitis, continue Levaquin. Heme/Onc: No acute issues. Psych: No acute issues. Miscellaneous: No acute issues. Prophylaxis: Lovenox Diet: Pending swallow evaluation Critical care time spent: 60 minutes Quality Stroke Does the patient have a stroke diagnosis?: No VTE Prior VTE?: No VTE Risk Level:: Medical - moderate - high VTE Device Contraindication: Treatment Not Indicated VTE Drug Contraindication: N/A - Med Ordered
--- NOTE | 2023-09-23 11:10 | PC.NURSE ---
Assumed care of patient 0700 Sedation vacation intiated 06:45, Propofol and fentanyl gtts paused. Pt opens eyes 07:00 Pt follows some simple commands to move feet, squeeze hands b/l. 07:25 vent settings changed to PSV 8/5.0 30% 07:35 patient RASS agitated 2+, moving head back and forth, moving legs and restless in bed. SaO2 decreased to 83%. 07:35 Propofol gtt resumed @10 for agitation and vent tolerance. PSV settings 10/5.0 30%. Pt had episodes of destauration and increased RR. FiO2 incrased to 40% then 50%. 07:45 Patient RASS 0, calm at rest. SaO2 85%. Pt placed back on AC settings for low SaO2. Propofol gtt @10 per MD. 09:15 MD at bedside. PSV trial initiated again, vent settings PSV 5/8.0 40%. volumes 200-250, SaO2 90%, RR WNL. 09:30 Pt maintaining good volumes. Propofol gtt paused. Tube feedings via NG tube paused. 09:48 Per MD order, pt extubated with RN and RT at bedside. NG tube removed per MD. Pt transitioned to 7L oxymask. SaO2 92-93%. No stridor, positive cough, pt able to speak softly. Pt follows commands. High fall precautions in place, bed alarm on, bed in lowest position.
[2023-09-23 12:01] LABS: Glucose, Whole Blood 242 mg/dL (60-115)
[2023-09-23 17:56] LABS: Glucose, Whole Blood 199 mg/dL (60-115)
[2023-09-23] MEDS: Acetaminophen 325 MG TABLET 650 MG PO (20:29)
[2023-09-23 21:54] LABS: Glucose, Whole Blood 213 mg/dL (60-115)
[2023-09-24] VITALS (20 sets, daily range): BP systolic 135–170; BP diastolic 60–88; PULSE 79–97; RESP 19–36; TEMP 36.1–37.8; O2SAT 92–96; BMI 36.2
[2023-09-24 05:00] LABS: VBG Base Excess 3.6 mmol/L; VBG HCO3 27 mmol/L (22-26); VBG pCO2 37 mmHg; VBG pH 7.47 (7.32-7.43); VBG pO2 43 mmHg
[2023-09-24 05:02] LABS: Venous Blood Gas Refer to POC result
[2023-09-24 05:14] LABS: MANUAL DIFF FLAG NO
[2023-09-24 05:15] LABS: Basophils Absolute Auto 0.1 X10*3/uL (0.0-0.2); Basophils Percent Auto 0.5 % (0-2); Eosinophils Absolute Auto 0.5 X10*3/uL (0.0-0.4); Eosinophils Percent Auto 4.9 % (0-4); Hematocrit 35.9 % (37.0-47.0); Hemoglobin 12.2 g/dl (12.0-16.0); Imm Gran Abs Auto 0.05 X10*3/uL (0.00-0.03); Imm Gran Pct Auto 0.5 % (0.0-0.4); Lymphocytes Absolute Auto 2.2 X10*3/uL (1.2-4.9); Lymphocytes Percent Auto 20.5 % (20-40); Mean Corpuscular Hemoglobin 31.4 pg (27.0-33.0); Mean Corpuscular Volume 92.3 fL (80.0-98.0); Mean Platelet Volume 9.7 fL (9.4-12.3); Monocytes Absolute Auto 1.2 X10*3/uL (0.1-1.2); Monocytes Percent Auto 11.6 % (2-11); Neutrophils Absolute Auto 6.6 x10*3/uL (2.0-8.3); Platelet Count 257 X10*3/uL (160-400); Red Blood Count 3.89 X10*6/uL (4.20-5.50); Red Cell Distribution Width 14.1 % (11.0-16.0); White Blood Count 10.6 X10*3/uL (4.8-10.8)
[2023-09-24 05:30] LABS: Albumin Level 3.7 g/dL (3.5-5.0); Anion Gap 17 (12-20); Blood Urea Nitrogen 17 mg/dL (9-16); Calcium 9.2 mg/dL (8.4-10.2); Carbon Dioxide 25 mmol/L (22-29); Chloride 108 mmol/L (96-108); Creatinine Clr Calc Pharmacy 77.9; Estimated Glomerular Filt Rate > 60; Glucose Random 193 mg/dL (60-115); Magnesium 1.9 mg/dL (1.6-2.6); Phosphorus 3.3 mg/dL (2.7-4.5); Potassium 3.7 mmol/L (3.3-5.1); Sodium 146 mmol/L (135-145)
[2023-09-24] MEDS: Insulin Lispro 100 UNIT/ML 3 ML VIAL SUBCUT ×4 (05:38→20:11)
[2023-09-24] MEDS: 0.9 % Sodium Chloride Flush 3 ML SYRINGE IVFLUSH ×2 (07:56→14:55)
[2023-09-24] MEDS: levoFLOXacin/D5W 750 MG/150 ML PIGGYBACK 100 MG IV (08:34)
[2023-09-24] MEDS: Baclofen 10 MG TABLET PO ×3 (08:35→20:11)
[2023-09-24] MEDS: Enoxaparin Sodium 40 MG/0.4 ML SYRINGE SUBCUT (08:35)
[2023-09-24] MEDS: Nystatin Powder 15 GM BOTTLE 1 APPL TOPICAL ×3 (08:35→20:12)
--- NOTE | 2023-09-24 09:38 | PM.CCPN ---
Subjective Subjective Date of Service: 09/24/23 Interval History: 67-year-old lady with underlying history of hypertension, diabetes mellitus, congestive heart failure, pseudotumor cerebri with prior shunt, Lewy body dementia admitted on 09/19/2023 with slurred speech that resolved before ER evaluation and encephalopathy. Hospital course significant for development of agitation confusion requiring multiple sedatives with subsequent aspiration requiring intubation and transferred to intensive care unit. Patient was treated with Levaquin and diuresis, and uneventfully extubated on 09/23/2023. No events overnight. Critical Care Time (minutes): 0 Physical Exam Vital Signs: Vital Signs: Last Vital Signs Temp 98.0 F 09/24/23 08:00 Pulse 82 09/24/23 09:00 Resp 31 H 09/24/23 09:00 BP 161/77 H 09/24/23 09:00 Pulse Ox 93 09/24/23 09:00 O2 Del Method Room Air 09/24/23 09:00 O2 Flow Rate 2 09/24/23 07:00 FiO2 40 09/23/23 09:48 BMI result Body Mass Index 36.2 Const: General: no acute distress, alert and awake Eyes: Sclerae: sclerae normal EOM: EOMs intact bilaterally Neck: Neck: Yes no lymphadenopathy, Yes trachea midline and Yes supple Resp: Effort & Inspection: normal respiratory effort and no respiratory distress Auscultation: clear to auscultation bilaterally Cardio: Rate: regular rate Rhythm: regular rhythm Heart sounds: no gallops, no murmurs and no rubs GI: Palpation (GI): Soft to palpation and Other GI palpation findings present ( Nontender) Auscultation: normal bowel sounds Extrem: General: Yes no pedal edema, No clubbing and No cyanosis Objective Data Labs 09/24/23 05:08 09/24/23 05:08 Labs: Laboratory Results - last 24 hr 09/23/23 09/23/23 09/23/23 11:51 17:52 21:50 WBC RBC Hgb Hct MCV MCH MCHC RDW Plt Count MPV Immature Gran % (Auto) Neut % (Auto) Lymph % (Auto) [place] % (Auto) Eos % (Auto) Baso % (Auto) Lymph # (Auto) [place] # (Auto) Eos # (Auto) Baso # (Auto) Abs Immat Gran (auto) Absolute Neuts (auto) Absolute Nucleated RBC Nucleated RBC % (auto) VBG pH VBG pCO2 VBG pO2 VBG HCO3 VBG O2 Saturation VBG Base Excess Sodium Potassium Chloride Carbon Dioxide Anion Gap BUN Creatinine Estim Creat Clear Calc Estimated GFR POC Glucose 242 H 199 H 213 H Random Glucose Calcium Phosphorus Magnesium Albumin 09/24/23 09/24/23 04:54 05:08 WBC 10.6 RBC 3.89 L Hgb 12.2 Hct 35.9 L MCV 92.3 MCH 31.4 MCHC 34.0 RDW 14.1 Plt Count 257 MPV 9.7 Immature Gran % (Auto) 0.5 H Neut % (Auto) 62.0 Lymph % (Auto) 20.5 [place] % (Auto) 11.6 H Eos % (Auto) 4.9 H Baso % (Auto) 0.5 Lymph # (Auto) 2.2 [place] # (Auto) 1.2 Eos # (Auto) 0.5 H Baso # (Auto) 0.1 Abs Immat Gran (auto) 0.05 H Absolute Neuts (auto) 6.6 Absolute Nucleated RBC 0.000 Nucleated RBC % (auto) 0.0 VBG pH 7.47 H VBG pCO2 37 VBG pO2 43 VBG HCO3 27 H VBG O2 Saturation 74.0 VBG Base Excess 3.6 Sodium 146 H Potassium 3.7 Chloride 108 Carbon Dioxide 25 Anion Gap 17 BUN 17 H Creatinine 0.71 Estim Creat Clear Calc 77.9 Estimated GFR > 60 POC Glucose Random Glucose 193 H Calcium 9.2 Phosphorus 3.3 Magnesium 1.9 Albumin 3.7 Microbiology Microbiology Results: Microbiology 09/19/23 02:01 Blood - Venous Blood Culture - Final No growth after 5 days. 09/19/23 02:01 Blood - Venous Blood Culture - Final No growth after 5 days. 09/20/23 02:15 Sputum - Suctioned Gram Stain - Final 09/20/23 02:15 Sputum - Suctioned Sputum Culture - Final 09/20/23 03:25 Blood - Venous Blood Culture - Preliminary No growth after 48 hours. 09/18/23 Unknown Urine Catheterized - Straight Catheter Urine Culture - Final 09/20/23 01:58 Blood - Venous Blood Culture - Final Progress Note: A&P Assessment and plan (1) Encephalopathy: Status: Acute (2) Acute respiratory failure with hypoxia: Status: Acute (3) Dementia: Status: Acute (4) Restrictive lung disease: Status: Acute (5) Diabetes mellitus with peripheral angiopathy: Status: Acute Plan Assessment: 67-year-old lady with multiple medical issues admitted with alteration of mental status/encephalopathy versus complicated by agitation likely to baclofen withdrawal and pulmonary aspiration requiring ventilatory support Plan: Neuro: Encephalopathy, improved, likely secondary to baclofen withdrawal, continue on baclofen. Underlying dementia. Cardiac: No acute issues. Underlying history of chronic diastolic congestive heart failure. Pulmonary: Pulmonary aspiration initial requiring ventilatory support, extubated 09/24/2023. Renal: No acute issues. Endo: No acute issues. Underlying diabetes mellitus GI: No acute issues. ID: Aspiration pneumonia versus pneumonitis, continue Levaquin for 7 days total. Heme/Onc: No acute issues. Psych: No acute issues. Miscellaneous: No acute issues. Prophylaxis: Lovenox Diet: Pending swallow evaluation Quality Stroke Does the patient have a stroke diagnosis?: No VTE Prior VTE?: No VTE Risk Level:: Medical - moderate - high VTE Device Contraindication: Treatment Not Indicated VTE Drug Contraindication: N/A - Med Ordered
--- NOTE | 2023-09-24 09:46 | MHC.CLN ---
F/U PT EXTUBATED 09/23 CURRENTLY NPO FAILED NURSING BEDSIDE SWALLOW AWAITING PARTS CLASSIFIER FOR DIET CONSISTENCY RECOMMENDATIONS WHEN DIET TO ADVANCE; RECOMMEND 1500DM 2GM NA IN ADDITION TO PARTS CLASSIFIER RECOMMENDATIONS IF PO INTAKE POOR, RECOMMEND ADDING NUTRITION SUPPLEMENT MONITOR FOR DIET ADVANCEMENT
[2023-09-24 11:51] LABS: Glucose, Whole Blood 189 mg/dL (60-115)
--- NOTE | 2023-09-24 15:27 | MHC.CM.PN ---
Pt will be transferred to the medical floor for continued care and treatment. [facility] ref[facility] updated - several facilities are following: pt needs PT eval for consideration. CM to follow.
[2023-09-24 16:33] LABS: Glucose, Whole Blood 225 mg/dL (60-115)
--- NOTE | 2023-09-24 17:02 | MHC.SL.SWA ---
Risk of Aspiration Due to: Neurological Condition Hx of Recent Extubation Weak Voice Dysphasia Diet Status: UPGRADE from NPO Liquid Consistency and Strategies for Safe Swallow: Liquid Intake Recommendation: Honey Thick Liquid Intake Strategies: Liquids by Teaspoon Only Solid Food Consistency: Dietary Recommendations: Pureed (NDD1) Oral Medication Intake: Crushed with Puree Please contact the pharmacy regarding appropriate crushable or liquid drug formulations that are available whenever modified delivery is recommended. Compensatory Strategies and Precautions to be Taken for Safe Swallow: Sitting Upright (90 deg) No Straw Liquids from Spoon Small Bites and Sips Alternate Liquids/Solids Avoid Specific Foods Supervision While Eating and Drinking for Safe Swallow: Total Supervision (1:1) Recommendation for Speech: Inpatient Speech Therapy Comment: Patient presents with soft, somewhat breathy voice w/ moments of aphonia. Patient reporting difficulty swallowing. Recommend HONEY THICK liquids via TEASPOON ONLY with PUREE solids. Pills CRUSHED in puree. 1-1 assist/supervision. Allow patient to sip liquid from teaspoon when ready. Provide intermittent cues to swallow again. Weak/breathy vocal quality may be indicative of laryngeal damage s/p extubation. Recommend SYSTEM MANAGER continue to monitor voice/swallow to upgrade diet if warranted, monitor for s/s aspiration, and determine if MBS may be recommended. Cloth Washer Clinican/Clinical Fellow: No Supervisory Statement: I have reviewed and agree with the student/clinical fellow's documentation: N/A Speech Language Pathologist: Prema Rausch M.A., [facility]-SYSTEM MANAGER
[2023-09-24 20:03] LABS: Glucose, Whole Blood 217 mg/dL (60-115)
[2023-09-25] VITALS (7 sets, daily range): BP systolic 132–169; BP diastolic 63–79; PULSE 75–97; RESP 18–27; TEMP 36.2–37.1; O2SAT 92–96; BMI 36.7
[2023-09-25 07:04] LABS: Glucose, Whole Blood 256 mg/dL (60-115)
[2023-09-25] MEDS: 0.9 % Sodium Chloride Flush 3 ML SYRINGE IVFLUSH ×3 (08:28→20:48)
[2023-09-25] MEDS: Insulin Lispro 100 UNIT/ML 3 ML VIAL SUBCUT ×4 (08:28→20:38)
[2023-09-25] MEDS: Baclofen 10 MG TABLET PO ×2 (08:29→20:37)
[2023-09-25] MEDS: Enoxaparin Sodium 40 MG/0.4 ML SYRINGE SUBCUT (08:30)
[2023-09-25] MEDS: levoFLOXacin/D5W 750 MG/150 ML PIGGYBACK 100 MG IV (08:38)
[2023-09-25] MEDS: Nystatin Powder 15 GM BOTTLE 1 APPL TOPICAL ×3 (08:40→20:38)
[2023-09-25 09:30] LABS: MANUAL DIFF FLAG NO
[2023-09-25 09:35] LABS: VBG Base Excess 0.8 mmol/L; VBG HCO3 24 mmol/L (22-26); VBG pCO2 35 mmHg; VBG pH 7.44 (7.32-7.43); VBG pO2 46 mmHg
[2023-09-25 09:35] LABS: Basophils Absolute Auto 0.1 X10*3/uL (0.0-0.2); Basophils Percent Auto 0.5 % (0-2); Eosinophils Absolute Auto 0.2 X10*3/uL (0.0-0.4); Eosinophils Percent Auto 1.7 % (0-4); Hematocrit 41.9 % (37.0-47.0); Hemoglobin 14.1 g/dl (12.0-16.0); Imm Gran Pct Auto 0.8 % (0.0-0.4); Lymphocytes Absolute Auto 2.1 X10*3/uL (1.2-4.9); Mean Corpuscular HGB Conc 33.7 g/dl (31.0-35.0); Mean Corpuscular Hemoglobin 31.2 pg (27.0-33.0); Mean Corpuscular Volume 92.7 fL (80.0-98.0); Mean Platelet Volume 9.3 fL (9.4-12.3); Monocytes Absolute Auto 1.1 X10*3/uL (0.1-1.2); Monocytes Percent Auto 8.5 % (2-11); Neutrophils Absolute Auto 9.4 x10*3/uL (2.0-8.3); Neutrophils Percent Auto 72.5 % (45-73); Platelet Count 302 X10*3/uL (160-400); Red Blood Count 4.52 X10*6/uL (4.20-5.50); Red Cell Distribution Width 14.2 % (11.0-16.0)
[2023-09-25 09:38] LABS: Venous Blood Gas Refer to POC result
[2023-09-25 09:52] LABS: Albumin Level 4.2 g/dL (3.5-5.0); Anion Gap 15 (12-20); Blood Urea Nitrogen 19 mg/dL (9-16); Calcium 9.7 mg/dL (8.4-10.2); Carbon Dioxide 23 mmol/L (22-29); Chloride 108 mmol/L (96-108); Creatinine Clr Calc Pharmacy 79.9; Estimated Glomerular Filt Rate > 60; Glucose Random 289 mg/dL (60-115); Magnesium 2.1 mg/dL (1.6-2.6); Phosphorus 2.8 mg/dL (2.7-4.5); Potassium 3.9 mmol/L (3.3-5.1); Sodium 142 mmol/L (135-145)
--- NOTE | 2023-09-25 10:32 | PM.DS ---
DS: Providers Provider Date of Service: 09/25/23 Date of admission: 09/19/23 03:54 Primary care physician: Chris Rodriguez MD Consults: 09/19/23 04:41 Consult to Neurology Routine Consulting Provider: [facility] Reason for consultation: AMS ; slurred speech 09/20/23 06:33 Consult to Infectious Diseases Stat Consulting Provider: [facility] [place] Infectious Disease Reason for consultation: MEROPENEM DS: Diagnosis Discharge Diagnosis (1) Encephalopathy: Status: Acute (2) Acute respiratory failure with hypoxia: Status: Acute (3) Dementia: Status: Acute (4) Restrictive lung disease: Status: Acute (5) Diabetes mellitus with peripheral angiopathy: Status: Acute DS: Summary Hospital Course Hospital Course: from initial hpi: 67-year-old female with pertinent history of Lewy body dementia, essential hypertension, insulin-dependent diabetes mellitus who was brought to the emergency department for evaluation of altered mentation. Unable to obtain history from the patient. Patient does not know why she is here. She is awake and alert but disoriented to place, time and person. History obtained from ER provider and chart review. As per EMS, patient was found to be confused around 20:00. Patient also had slurred speech as per EMS which resolved by the time patient presented to the ER. Unable to obtain review of systems. Of note, patient was admitted on 01/12/2023 for acute encephalopathy and was found to have strep viridans bacteremia likely dental source. hospital course: Patient was initially admitted for slurred speech with concern for CVA versus TIA. MRI was negative for acute stroke. Course was then complicated by acute metabolic encephalopathy and acute hypoxic respiratory failure secondary to aspiration pneumonia. Required intubation and ICU transfer. Was treated with Levaquin and diuresed for acute on chronic diastolic CHF. She was eventually able to be weaned off ventilator. Underlying cause altered mental status possibly due to baclofen withdrawal. Patient was downgraded to medical floor and mental status was back to baseline. On discharge will continue 5 more days of levofloxacin. She was seen by REGISTERED DIET TECHNICIAN recommended. Solids and honey thick liquids. For diabetes was continued on insulin sliding scale. For hypertension will be continued on Toprol, valsartan, hydrochlorothiazide, amlodipine. For mood disorder will be continued on Seroquel. Patient is back to baseline and will be discharged home. Time Attestation Discharge coordination time: Greater than 30 minutes Quality: Safe Use of Opioids Does Pt have an Active Cancer Diagnosis on the Problem List?: No Quality: Stroke Does the patient have a stroke diagnosis?: No Physical Exam Vital Signs: Vital Signs: Last Vital Signs Temp 98.1 F 09/25/23 07:33 Pulse 89 09/25/23 07:33 Resp 20 09/25/23 07:33 BP 160/64 H 09/25/23 07:33 Pulse Ox 94 09/25/23 07:33 O2 Del Method Room Air 09/25/23 07:33 O2 Flow Rate 2 09/24/23 07:00 FiO2 40 09/23/23 09:48 BMI result Body Mass Index 36.7 Const: General: no acute distress, alert and awake Eyes: Sclerae: sclerae normal EOM: EOMs intact bilaterally Neck: Neck: Yes no lymphadenopathy, Yes trachea midline and Yes supple Resp: Effort & Inspection: normal respiratory effort and no respiratory distress Auscultation: clear to auscultation bilaterally Cardio: Rate: regular rate Rhythm: regular rhythm Heart sounds: no gallops, no murmurs and no rubs GI: Palpation (GI): Soft to palpation and Other GI palpation findings present ( Nontender) Auscultation: normal bowel sounds Extrem: General: Yes no pedal edema, No clubbing and No cyanosis DS: Data Data Completed and Pending Completed studies during hospitalization [Text1]: Procedures Drainage of Spinal Canal, Percutaneous Approach, Diagnostic (06/23/20) Fluoroscopy of Spinal Cord (06/23/20) Insertion of Infusion Device into Lower Vein, Percutaneous Approach (09/19/21) Insertion of Infusion Device into Right Basilic Vein, Percutaneous Approach (01/12/23) Introduction of Vasopressor into Central Vein, Percutaneous Approach (09/19/21) Labs on day of discharge: Laboratory Results - last 24 hr 09/24/23 09/24/23 09/24/23 11:47 16:30 19:59 WBC RBC Hgb Hct MCV MCH MCHC RDW Plt Count MPV Immature Gran % (Auto) Neut % (Auto) Lymph % (Auto) [place] % (Auto) Eos % (Auto) Baso % (Auto) Lymph # (Auto) [place] # (Auto) Eos # (Auto) Baso # (Auto) Abs Immat Gran (auto) Absolute Neuts (auto) Absolute Nucleated RBC Nucleated RBC % (auto) VBG pH VBG pCO2 VBG pO2 VBG HCO3 VBG O2 Saturation VBG Base Excess Sodium Potassium Chloride Carbon Dioxide Anion Gap BUN Creatinine Estim Creat Clear Calc Estimated GFR POC Glucose 189 H 225 H 217 H Random Glucose Calcium Phosphorus Magnesium Albumin 09/25/23 09/25/23 09/25/23 07:00 09:24 09:30 WBC 13.0 H RBC 4.52 Hgb 14.1 Hct 41.9 MCV 92.7 MCH 31.2 MCHC 33.7 RDW 14.2 Plt Count 302 MPV 9.3 L Immature Gran % (Auto) 0.8 H Neut % (Auto) 72.5 Lymph % (Auto) 16.0 L [place] % (Auto) 8.5 Eos % (Auto) 1.7 Baso % (Auto) 0.5 Lymph # (Auto) 2.1 [place] # (Auto) 1.1 Eos # (Auto) 0.2 Baso # (Auto) 0.1 Abs Immat Gran (auto) 0.10 H Absolute Neuts (auto) 9.4 H Absolute Nucleated RBC 0.000 Nucleated RBC % (auto) 0.0 VBG pH 7.44 H VBG pCO2 35 VBG pO2 46 VBG HCO3 24 VBG O2 Saturation 76.0 VBG Base Excess 0.8 Sodium 142 Potassium 3.9 Chloride 108 Carbon Dioxide 23 Anion Gap 15 BUN 19 H Creatinine 0.68 Estim Creat Clear Calc 79.9 Estimated GFR > 60 POC Glucose 256 H Random Glucose 289 H Calcium 9.7 Phosphorus 2.8 Magnesium 2.1 Albumin 4.2 Discharge Plan Discharge Anticipated Discharge Date/Time: 09/25/23 10:27 Patient Disposition: Home, Self-Care Discharge Diagnosis: baclofen withdrawl Referrals: Chris Rodriguez MD [Primary Care Provider] - 1 Week Discharge Medications: New levofloxacin 500 mg tablet 500 mg PO DAILY Qty: 5 0RF Continued metoprolol succinate 25 mg tablet extended release 24 hr 25 mg PO QAM Qty: 90 0RF Rx Instructions: Must call and make cardiology appt for refills atorvastatin 80 mg tablet 1 tab PO DAILY valsartan 80 mg tablet 1 tab PO DAILY aspirin 81 mg tablet,delayed release (DR/EC) 1 tab PO QAM pantoprazole 40 mg tablet,delayed release (DR/EC) 1 tab PO BID hydrochlorothiazide 12.5 mg capsule 1 cap PO DAILY multivitamin Tablet 1 tab PO QAM Myrbetriq 25 mg tablet extended release 24 hr 25 mg PO DAILY quetiapine 25 mg tablet 50 mg PO BEDTIME donepezil 5 mg tablet 5 mg PO DAILY amlodipine 5 mg tablet 5 mg PO DAILY baclofen 10 mg tablet 10 mg PO TID loratadine 10 mg tablet 10 mg PO DAILY insulin lispro [Humalog KwikPen Insulin] 100 unit/mL insulin pen 8 - 24 unit subcut TID quetiapine 25 mg Tablet 12.5 mg PO BID@0900,1700 30 Days Qty: 30 0RF naproxen 250 mg Tablet 250 mg PO BID PRN (Reason: back pain) Qty: 0 0RF lactase [Dairy-Aid] 3,000 unit Tablet 3,000 unit PO TIDWM 30 Days Qty: 90 0RF fluticasone propionate 50 mcg/actuation [place],Suspension 1 spray intranasal BID Qty: 0 0RF insulin glargine [Lantus U-100 Insulin] 100 unit/mL Solution 30 unit subcut BEDTIME 30 Days Qty: 9 0RF Januvia 25 mg Tablet 25 mg PO DAILY 30 Days Qty: 30 0RF Discharge Orders: Discharge Order (Routine); Ordered 09/25/23 Ordered By: Timmy Wang Diet: pureed, honey thick Activity on Discharge: As tolerated Stand Alone Forms: Patient Portal Discharge page Care Plan Goals: recovery Health Concerns: baclofen withdrawal, aspiration Plan of Treatment: 5 more days levaquin, pureed solids, honey thick liquid Assessment: see above
--- NOTE | 2023-09-25 10:43 | MHC.CM.PN ---
Addendum entered by Ana Ashraf RN 09/25/23 14:19: DC CANCELLED Addendum entered by Ana Ashraf RN 09/25/23 14:10: CM RECEIVED A MESSAGE FROM [facility] REPORTING THEY ARE UNABLE TO PROVIDE SPEECH, PT'S AT BEDSIDE AND WILL TALK TO PT ABOUT STR, CHRISTOPHER HAS BEEN PROVIDED LIST OF FACILITIES THAT HAVE SHOWN [facility]EST [facility] REFERRAL PER REQUEST. Addendum entered by Ana Ashraf RN 09/25/23 11:53: ANTIC PT WILL DC HOME W/NEW [facility] FOR SN/PT WHEN ARRIVES AT 1:30PM Original Note: EMR REVIEWED, CM MET W/PT TO DISCUSS DISPO AND STR BED OFFERS, PT REPORTING SHE DOES NOT WANT STR SHE WANTS TO RETURN HOME W/ HOWEVER IS REPORTSING SHE DOES NOT FEEL WELL, HOSPITALIST NOTIFIED VIA TIGER. CM WILL PLACE [facility] REFERRAL AND CONT TO FOLLOW.
--- NOTE | 2023-09-25 10:56 | W.MHC.F2F ---
Service Date Service Date: 09/25/23 Encounter Date of encounter: 09/25/23 Reasons for Services Signs and symptoms assessed: wekaness Reason for retirement: medication management, medication treatment and teach disease management Reason for physical therapy: home safety and mobility, therapeutic exercises and restore joint function Reason for speech therapy: swallowing impairment Homebound: Leaving the home is medically contraindicated at this time without the asist of a device and/or another person due th the listed conditions above and below. Reason homebound: unsteady gait / fall risk Certification: Based on the above findings, I certify that this patient is confined to the home and needs intermittent retirement care, physical therapy and/or speech therapy, or continues to need occupational therapy. The patient is under my care, and I have initiated the establishment of the plan of care. The patient will be followed by a physician who will periodically review the plan of care. Time Spent With Patient Time: Total time managing care of this patient today ____ minutes.
[2023-09-25 11:01] LABS: Glucose, Whole Blood 205 mg/dL (60-115)
[2023-09-25] MEDS: Aspirin Enteric Coated 81 MG TABLET.DR PO (11:29)
[2023-09-25] MEDS: Metoprolol Succinate ER 25 MG TAB.ER.24H PO (11:29)
--- NOTE | 2023-09-25 12:49 | MHC.SLORD ---
Speech Language Pathology Order Status: Pt declining offers of PO trials this morning. Per GSR, she declined Lunch offerings stating that she would eat at home. confirmed D/C this afternoon. ANALYST PROGRAMMER conferred with ERIN, will be recommending ST via [facility] after discharge.
--- NOTE | 2023-09-25 14:05 | P.PNIM_ITS ---
Subjective Subjective Date of Service: 09/25/23 Interval History: nausea, otherwise much improved Physical Exam 2 Vital Signs: Vital Signs: Last Vital Signs Temp 98.4 F 09/25/23 11:01 Pulse 91 09/25/23 11:32 Resp 20 09/25/23 11:01 BP 148/75 H 09/25/23 11:32 Pulse Ox 93 09/25/23 11:32 O2 Del Method Room Air 09/25/23 11:01 O2 Flow Rate 2 09/24/23 07:00 FiO2 40 09/23/23 09:48 BMI result Body Mass Index 36.7 Const: General: no acute distress, alert and awake Eyes: Sclerae: sclerae normal EOM: EOMs intact bilaterally Neck: Neck: Yes no lymphadenopathy, Yes trachea midline and Yes supple Resp: Effort & Inspection: normal respiratory effort and no respiratory distress Auscultation: clear to auscultation bilaterally Cardio: Rate: regular rate Rhythm: regular rhythm Heart sounds: no gallops, no murmurs and no rubs GI: Palpation (GI): Soft to palpation and Other GI palpation findings present ( Nontender) Auscultation: normal bowel sounds Extrem: General: Yes no pedal edema, No clubbing and No cyanosis Objective Data Active Medications Acetaminophen (Acetaminophen 325 Mg Tablet) 650 mg PO Q6H PRN PRN Reason: Fever Last Admin: 09/23/23 20:29 Dose: 650 mg Documented By: LONDON Amlodipine Besylate (Amlodipine Besylate 5 Mg Tablet) 5 mg PO DAILY [facility]; Protocol Aspirin (Aspirin Enteric Coated 81 Mg Tablet.) 81 mg PO DAILY [facility] Last Admin: 09/25/23 11:29 Dose: 81 mg Documented By: OLESYA Atorvastatin Calcium (Atorvastatin Calcium 80 Mg Tablet) 80 mg PO DAILY [facility] Baclofen (Baclofen 10 Mg Tablet) 10 mg PO TID [facility] Last Admin: 09/25/23 08:29 Dose: 10 mg Documented By: OLESYA Dextrose (Dextrose 50 % 25 Gm/50 Ml Syringe) 25 gm IVPUSH Q15M PRN; Protocol PRN Reason: per Hypoglycemia Standing Ord. Donepezil HCl (Donepezil Hcl 5 Mg Tablet) 5 mg PO DAILY [facility] Enoxaparin Sodium (Enoxaparin Sodium 40 Mg/0.4 Ml Syringe) 40 mg SUBCUT Q24H [facility] Last Admin: 09/25/23 08:30 Dose: 40 mg Documented By: OLESYA Glucose (Glucose Gel 15 Gm Gel..Gram.) 15 gm PO Q15M PRN; Protocol PRN Reason: per Hypoglycemia Standing Ord. Levofloxacin (Levaquin) 750 mg in 150 mls @ 100 mls/hr IV Q24H [facility] Last Infusion: 09/25/23 10:21 Dose: Infused Documented By: OLESYA Insulin Human Lispro (Insulin Lispro 100 Unit/Ml 3 Ml Vial) 0 unit SUBCUT QIDACHS [facility]; Protocol Last Admin: 09/25/23 11:42 Dose: 4 unit Documented By: OLESYA Metoprolol Succinate (Metoprolol Succinate Er 25 Mg Tab.Er.24h) 25 mg PO DAILY [facility]; Protocol Last Admin: 09/25/23 11:29 Dose: 25 mg Documented By: OLESYA Nystatin (Nystatin Powder 15 Gm Bottle) 1 appl TOPICAL TID [facility]; Protocol Last Admin: 09/25/23 08:40 Dose: 1 appl Documented By: OLESYA Quetiapine Fumarate (Quetiapine Fumarate 50 Mg Tablet) 50 mg PO BEDTIME [facility] Quetiapine Fumarate (Quetiapine Fumarate 25 Mg Tablet) 12.5 mg PO BID@0900,1700 [facility] Sitagliptin Phosphate (Sitagliptin Phosphate 25 Mg Tablet) 25 mg PO DAILY [facility] Sodium Chloride (0.9 % Sodium Chloride Flush 3 Ml Syringe) 3 ml IVFLUSH QSHIFT [facility] Last Admin: 09/25/23 08:28 Dose: 3 ml Documented By: OLESYA Valsartan (Valsartan 80 Mg Tablet) 80 mg PO DAILY [facility]; Protocol Labs 09/25/23 09:24 09/25/23 09:24 Labs: Laboratory Results - last 24 hr 09/24/23 09/24/23 09/25/23 16:30 19:59 07:00 MCV MCH MCHC RDW Plt Count MPV Immature Gran % (Auto) Neut % (Auto) Lymph % (Auto) [place] % (Auto) Eos % (Auto) Baso % (Auto) Lymph # (Auto) [place] # (Auto) Eos # (Auto) Baso # (Auto) Abs Immat Gran (auto) Absolute Neuts (auto) Absolute Nucleated RBC Nucleated RBC % (auto) VBG pH VBG pCO2 VBG pO2 VBG HCO3 VBG O2 Saturation VBG Base Excess Anion Gap Estim Creat Clear Calc Estimated GFR POC Glucose 225 H 217 H 256 H Random Glucose Calcium Phosphorus Magnesium Albumin 09/25/23 09/25/23 09/25/23 09:24 09:30 10:57 MCV 92.7 MCH 31.2 MCHC 33.7 RDW 14.2 Plt Count 302 MPV 9.3 L Immature Gran % (Auto) 0.8 H Neut % (Auto) 72.5 Lymph % (Auto) 16.0 L [place] % (Auto) 8.5 Eos % (Auto) 1.7 Baso % (Auto) 0.5 Lymph # (Auto) 2.1 [place] # (Auto) 1.1 Eos # (Auto) 0.2 Baso # (Auto) 0.1 Abs Immat Gran (auto) 0.10 H Absolute Neuts (auto) 9.4 H Absolute Nucleated RBC 0.000 Nucleated RBC % (auto) 0.0 VBG pH 7.44 H VBG pCO2 35 VBG pO2 46 VBG HCO3 24 VBG O2 Saturation 76.0 VBG Base Excess 0.8 Anion Gap 15 Estim Creat Clear Calc 79.9 Estimated GFR > 60 POC Glucose 205 H Random Glucose 289 H Calcium 9.7 Phosphorus 2.8 Magnesium 2.1 Albumin 4.2 Microbiology Microbiology Results: Microbiology 09/20/23 03:25 Blood Culture - Final Blood - Venous No growth after 5 days. Assessment and Plan (1) Acute respiratory failure with hypoxia: Status: Acute Plan 67-year-old female with pertinent history of Lewy body dementia, essential hypertension, insulin-dependent diabetes mellitus who was brought to the emergency department for evaluation of altered mentation. initially admitted for slurred speech with concern for CVA versus TIA. MRI was negative for acute stroke. Course was then complicated by acute metabolic encephalopathy and acute hypoxic respiratory failure secondary to aspiration pneumonia. Required intubation and ICU transfer. treated with levaquin and diuresis, extubated and downgraded. 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
[2023-09-25 16:12] LABS: Glucose, Whole Blood 228 mg/dL (60-115)
[2023-09-25] MEDS: QUEtiapine Fumarate 25 MG TABLET 12.5 MG PO (17:29)
[2023-09-25 19:29] LABS: Glucose, Whole Blood 311 mg/dL (60-115)
[2023-09-25] MEDS: QUEtiapine Fumarate 50 MG TABLET PO (20:37)
[2023-09-26] VITALS (7 sets, daily range): BP systolic 108–164; BP diastolic 52–77; PULSE 79–92; RESP 18–24; TEMP 36.2–36.5; O2SAT 93–94; BMI 35.1
[2023-09-26 07:26] LABS: Glucose, Whole Blood 225 mg/dL (60-115)
[2023-09-26] MEDS: Baclofen 10 MG TABLET PO ×3 (07:46→22:21)
[2023-09-26] MEDS: SITagliptin Phosphate 25 MG TABLET PO (07:47)
[2023-09-26] MEDS: Valsartan 80 MG TABLET PO (07:47)
[2023-09-26] MEDS: Atorvastatin Calcium 80 MG TABLET PO (07:47)
[2023-09-26] MEDS: Metoprolol Succinate ER 25 MG TAB.ER.24H PO (07:47)
[2023-09-26] MEDS: Aspirin Enteric Coated 81 MG TABLET.DR PO (07:47)
[2023-09-26] MEDS: amLODIPine Besylate 5 MG TABLET PO (07:48)
[2023-09-26] MEDS: Nystatin Powder 15 GM BOTTLE 1 APPL TOPICAL ×3 (07:48→22:22)
[2023-09-26] MEDS: Donepezil HCl 5 MG TABLET PO (07:48)
[2023-09-26] MEDS: Insulin Lispro 100 UNIT/ML 3 ML VIAL SUBCUT ×4 (07:49→22:21)
[2023-09-26] MEDS: Enoxaparin Sodium 40 MG/0.4 ML SYRINGE SUBCUT (07:49)
[2023-09-26] MEDS: QUEtiapine Fumarate 25 MG TABLET 12.5 MG PO ×2 (07:54→17:13)
[2023-09-26] MEDS: levoFLOXacin/D5W 750 MG/150 ML PIGGYBACK 100 MG IV (08:04)
[2023-09-26] MEDS: 0.9 % Sodium Chloride Flush 3 ML SYRINGE IVFLUSH ×2 (08:06→17:14)
--- NOTE | 2023-09-26 10:58 | MHC.CM.PN ---
CM CONTACTED PT'S CHRISTOPHER AT 10:45AM AT NUMBER ON FILE, CHRISTOPHER REPORTS THAT HE DOES NOT FEEL HE CAN CARE FOR PT AT HOME AND WOULD LIKE HER TO GO TO [facility] PRIOR TO RETURNING HOME, JAMIN UPDATED AND WILL FOLLOW, CM HAS UPDATED REFERRAL AND HUSBANDS ONLY PREFERENCE IS [facility], [facility]Y [place] HAVE BEEN FOLLOWING AND CM AWAITING BED OFFER, CM WILL CONT TO FOLLOW DC NEEDS.
[2023-09-26 11:28] LABS: Glucose, Whole Blood 239 mg/dL (60-115)
--- NOTE | 2023-09-26 11:34 | P.PNIM_ITS ---
Subjective Subjective Date of Service: 09/26/23 Interval History: Seen and evaluated this morning tolerating more diet, doesnt like the food feels she can eat more regular diet weaned to room air Review of Systems Review of Systems: Yes all other systems are reviewed and are negative Physical Exam 2 Vital Signs: Vital Signs: Last Vital Signs Temp 97.2 F 09/26/23 11:23 Pulse 79 09/26/23 11:23 Resp 18 09/26/23 11:23 BP 129/60 09/26/23 11:23 Pulse Ox 94 09/26/23 11:23 O2 Del Method Room Air 09/26/23 11:23 O2 Flow Rate 2 09/24/23 07:00 FiO2 40 09/23/23 09:48 BMI result Body Mass Index 35.1 Const: Other: Constitutional : Awake, interactive, frail, not in distress Neck : Normal inspection, Supple Cardiovascular : RRR, no JVP, no lower extremity edema Respiratory : good bilateral air entry, no crackles, wheezes or rhonchi Gastrointestinal: soft, lax, Normal bowel sounds, Non tender Skin : Warm, Dry Neurological : Alert & oriented to self and place, No focal deficit Objective Data Active Medications Acetaminophen (Acetaminophen 325 Mg Tablet) 650 mg PO Q6H PRN PRN Reason: Fever Last Admin: 09/23/23 20:29 Dose: 650 mg Documented By: LONDON Amlodipine Besylate (Amlodipine Besylate 5 Mg Tablet) 5 mg PO DAILY [facility]; Protocol Last Admin: 09/26/23 07:48 Dose: 5 mg Documented By: OLESYA Aspirin (Aspirin Enteric Coated 81 Mg Tablet.) 81 mg PO DAILY [facility] Last Admin: 09/26/23 07:47 Dose: 81 mg Documented By: OLESYA Atorvastatin Calcium (Atorvastatin Calcium 80 Mg Tablet) 80 mg PO DAILY [facility] Last Admin: 09/26/23 07:47 Dose: 80 mg Documented By: OLESYA Baclofen (Baclofen 10 Mg Tablet) 10 mg PO TID [facility] Last Admin: 09/26/23 07:46 Dose: 10 mg Documented By: OLESYA Dextrose (Dextrose 50 % 25 Gm/50 Ml Syringe) 25 gm IVPUSH Q15M PRN; Protocol PRN Reason: per Hypoglycemia Standing Ord. Donepezil HCl (Donepezil Hcl 5 Mg Tablet) 5 mg PO DAILY [facility] Last Admin: 09/26/23 07:48 Dose: 5 mg Documented By: OLESYA Enoxaparin Sodium (Enoxaparin Sodium 40 Mg/0.4 Ml Syringe) 40 mg SUBCUT Q24H [facility] Last Admin: 09/26/23 07:49 Dose: 40 mg Documented By: OLESYA Glucose (Glucose Gel 15 Gm Gel..Gram.) 15 gm PO Q15M PRN; Protocol PRN Reason: per Hypoglycemia Standing Ord. Levofloxacin (Levaquin) 750 mg in 150 mls @ 100 mls/hr IV Q24H [facility] Last Infusion: 09/26/23 09:50 Dose: Infused Documented By: OLESYA Insulin Human Lispro (Insulin Lispro 100 Unit/Ml 3 Ml Vial) 0 unit SUBCUT QIDACHS [facility]; Protocol Last Admin: 09/26/23 07:49 Dose: 4 unit Documented By: OLESYA Metoprolol Succinate (Metoprolol Succinate Er 25 Mg Tab.Er.24h) 25 mg PO DAILY [facility]; Protocol Last Admin: 09/26/23 07:47 Dose: 25 mg Documented By: OLESYA Nystatin (Nystatin Powder 15 Gm Bottle) 1 appl TOPICAL TID [facility]; Protocol Last Admin: 09/26/23 07:48 Dose: 1 appl Documented By: OLESYA Quetiapine Fumarate (Quetiapine Fumarate 50 Mg Tablet) 50 mg PO BEDTIME [facility] Last Admin: 09/25/23 20:37 Dose: 50 mg Documented By: TADEO Quetiapine Fumarate (Quetiapine Fumarate 25 Mg Tablet) 12.5 mg PO BID@0900,1700 [facility] Last Admin: 09/26/23 07:54 Dose: 12.5 mg Documented By: OLESYA Sitagliptin Phosphate (Sitagliptin Phosphate 25 Mg Tablet) 25 mg PO DAILY [facility] Last Admin: 09/26/23 07:47 Dose: 25 mg Documented By: OLESYA Sodium Chloride (0.9 % Sodium Chloride Flush 3 Ml Syringe) 3 ml IVFLUSH QSHIFT [facility] Last Admin: 09/26/23 08:06 Dose: 3 ml Documented By: OLESYA Valsartan (Valsartan 80 Mg Tablet) 80 mg PO DAILY [facility]; Protocol Last Admin: 09/26/23 07:47 Dose: 80 mg Documented By: OLESYA Labs 09/25/23 09:24 09/25/23 09:24 Labs: Laboratory Results - last 24 hr 09/25/23 09/25/23 09/26/23 15:44 19:24 07:20 POC Glucose 228 H 311 H 225 H 09/26/23 11:00 POC Glucose 239 H Assessment and Plan (1) Encephalopathy: Status: Acute (2) Acute respiratory failure with hypoxia: Status: Acute (3) Pulmonary aspiration: Status: Acute (4) Acute metabolic encephalopathy: Status: Acute Plan 67-year-old female with pertinent history of Lewy body dementia, essential hypertension, insulin-dependent diabetes mellitus who was brought to the emergency department for evaluation of altered mentation. initially admitted for slurred speech with concern for CVA versus TIA. MRI was negative for acute stroke. Course was then complicated by acute metabolic encephalopathy and acute hypoxic respiratory failure secondary to aspiration pneumonia. Required intubation and ICU transfer. treated with levaquin and diuresis, extubated and downgraded. Acute metabolic encephalopathy improved to baseline. Suspected due to baclofen withdrawal Acute hypoxic respiratory failure secondary to aspiration pneumonia Hypoxia resolved, continue Levaquin MEDICATION TECH appreciated continue pureed and honey thick liquids, continue to follow Acute on chronic diastolic CHF Diuresed well, now euvolemic Hypertension On losartan, metoprolol, amlodipine Diabetes Insulin Lewy body dementia Monitor Obesity Weight loss recommended DVT prophylaxis with Lovenox Full Code reason for continued hospitalization: on IV Antibiotics Pending SNF Placement Quality Stroke Does the patient have a stroke diagnosis?: No VTE Prior VTE?: No VTE Risk Level:: Medical - moderate - high VTE Device Contraindication: Treatment Not Indicated VTE Drug Contraindication: N/A - Med Ordered
--- NOTE | 2023-09-26 12:25 | MHC.CM.PN ---
PER FS PT'S CHRISTOPHER BROUGHT IN MOST OF THE DOCUMENTATION FOR [facility] YESTERDAY AND THEY ARE JUST WAITING FOR VEHICLE REGISTRATIONS AND ADDITIONAL INCOME INFO.
--- NOTE | 2023-09-26 12:44 | MHC.SL.SWA ---
Addendum entered and electronically signed by HIMANSHU Arellano 09/26/23 12:48: Ice chips and thin water via swab between meals OK. Original Note: Speech Pathologist Impression: Oropharyngeal Dysphagia Risk of Aspiration Due to: Neurological Condition Hx of Recent Extubation Weak Voice Dysphasia Diet Status: UPGRADE solids and liquids Liquid Consistency and Strategies for Safe Swallow: Liquid Intake Recommendation: [place] Thick Liquid Intake Strategies: No Straws Solid Food Consistency: Dietary Recommendations: Grnd/Mech Altered (NDD2) Additional Modifications to Solid Foods: Moisten w/ sauce/gravy Oral Medication Intake: Crushed with Puree Please contact the pharmacy regarding appropriate crushable or liquid drug formulations that are available whenever modified delivery is recommended. Compensatory Strategies and Precautions to be Taken for Safe Swallow: Sitting Upright (90 deg) Double Swallow Slow rate of ingestion Slow, individual sips/bites Supervision While Eating and Drinking for Safe Swallow: Total Supervision (1:1) Recommendation for Speech: Inpatient Speech Therapy Comment: 09/24/23: Patient presents with soft, somewhat breathy voice w/ moments of aphonia. Patient reporting difficulty swallowing. Recommend HONEY THICK liquids via TEASPOON ONLY with PUREE solids. Pills CRUSHED in puree. 1-1 assist/supervision. Allow patient to sip liquid from teaspoon when ready. Provide intermittent cues to swallow again. Weak/breathy vocal quality may be indicative of laryngeal damage s/p extubation. Recommend ETYMOLOGY TEACHER continue to monitor voice/swallow to upgrade diet if warranted, monitor for s/s aspiration, and determine if MBS may be recommended. 09/25/23: Pt declining offers of PO trials this morning. Per GSR, she declined Lunch offerings stating that she would eat at home. confirmed D/C this afternoon. ETYMOLOGY TEACHER conferred with ERIN, will be recommending ST via [facility] after discharge. 09/26/23: Patient continues to present w/ soft voice and reports some discomfort swallowing, perhaps secondary to laryngeal damage s/p extubation. Vocal quality less breathy as compared to Sunday. Still presenting with moments of aphonia. Presents w/ oropharyngeal dysphagia. Recommend UPGRADE to GROUND solids (NDD2) and THIN liquids. Continue pills CRUSHED in PUREE. FULL SUPERVISION. Provide intermittent cues to swallow again. ETYMOLOGY TEACHER continue to monitor voice/swallow to upgrade diet if warranted, monitor for s/s aspiration, and determine if MBS may be recommended. Assistant Press Operator Offset Clinican/Clinical Fellow: No Supervisory Statement: I have reviewed and agree with the student/clinical fellow's documentation: N/A Speech Language Pathologist: Prema Rausch M.A., CCC-ETYMOLOGY TEACHER
--- NOTE | 2023-09-26 15:17 | MHC.CM.PN ---
PT CONT'S TO DECLINE STR, HOWEVER PT'S UNABLE TO CARE FOR HER, CASE DISCUSSED W/CM DIRECTOR/HOSPITALIST, PER PREVIOUS PSYCH STAY PT HAS NO CAPACITY AND HOSPITALIST WILL PLACE ORDER TO INVOKE HCP. [facility] STILL AWAITING AUTH FROM [employer].
[2023-09-26 16:25] LABS: Glucose, Whole Blood 263 mg/dL (60-115)
[2023-09-26 20:39] LABS: Glucose, Whole Blood 223 mg/dL (60-115)
[2023-09-26] MEDS: QUEtiapine Fumarate 50 MG TABLET PO (22:21)
[2023-09-27 03:17] VITALS: BP 129/62; PULSE 84; RESP 20; TEMP 36.1; O2SAT 94
[2023-09-27 06:00] VITALS: BMI 35.5
[2023-09-27 07:01] VITALS: BP 148/67; PULSE 78; RESP 20; TEMP 36.9; O2SAT 93
[2023-09-27 07:09] LABS: Glucose, Whole Blood 191 mg/dL (60-115)
[2023-09-27] MEDS: Atorvastatin Calcium 80 MG TABLET PO (08:41)
[2023-09-27] MEDS: Donepezil HCl 5 MG TABLET PO (08:41)
[2023-09-27] MEDS: Aspirin Enteric Coated 81 MG TABLET.DR PO (08:41)
[2023-09-27] MEDS: Enoxaparin Sodium 40 MG/0.4 ML SYRINGE SUBCUT (08:41)
[2023-09-27] MEDS: Valsartan 80 MG TABLET PO (08:41)
[2023-09-27] MEDS: Metoprolol Succinate ER 25 MG TAB.ER.24H PO (08:41)
[2023-09-27] MEDS: QUEtiapine Fumarate 25 MG TABLET 12.5 MG PO (08:41)
[2023-09-27] MEDS: amLODIPine Besylate 5 MG TABLET PO (08:41)
[2023-09-27] MEDS: Baclofen 10 MG TABLET PO ×2 (08:41→13:46)
[2023-09-27] MEDS: Insulin Lispro 100 UNIT/ML 3 ML VIAL SUBCUT ×2 (08:42→12:18)
[2023-09-27] MEDS: levoFLOXacin/D5W 750 MG/150 ML PIGGYBACK 100 MG IV (08:42)
[2023-09-27] MEDS: 0.9 % Sodium Chloride Flush 3 ML SYRINGE IVFLUSH ×2 (08:42→13:46)
[2023-09-27] MEDS: Nystatin Powder 15 GM BOTTLE 1 APPL TOPICAL ×2 (08:43→13:46)
[2023-09-27] MEDS: SITagliptin Phosphate 25 MG TABLET PO (08:43)
[2023-09-27 11:39] LABS: Glucose, Whole Blood 266 mg/dL (60-115)
[2023-09-27 12:45] VITALS: BP 124/61; PULSE 89; RESP 20; TEMP 37.1
--- NOTE | 2023-09-27 13:33 | PM.DS ---
DS: Providers Provider Date of Service: 09/27/23 Date of admission: 09/19/23 03:54 Primary care physician: Chris Rodriguez MD Consults: 09/19/23 04:41 Consult to Neurology Routine Consulting Provider: [facility] Reason for consultation: AMS ; slurred speech 09/20/23 06:33 Consult to Infectious Diseases Stat Consulting Provider: [facility] Reason for consultation: [place] DS: Diagnosis Discharge Diagnosis (1) Encephalopathy: Status: Acute (2) Acute respiratory failure with hypoxia: Status: Acute (3) Pulmonary aspiration: Status: Acute (4) Acute metabolic encephalopathy: Status: Acute (5) Dementia: Status: Acute DS: Summary Hospital Course Hospital Course: from initial hpi: 67-year-old female with pertinent history of Lewy body dementia, essential hypertension, insulin-dependent diabetes mellitus who was brought to the emergency department for evaluation of altered mentation. Unable to obtain history from the patient. Patient does not know why she is here. She is awake and alert but disoriented to place, time and person. History obtained from ER provider and chart review. As per EMS, patient was found to be confused around 20:00. Patient also had slurred speech as per EMS which resolved by the time patient presented to the ER. Unable to obtain review of systems. Of note, patient was admitted on 01/12/2023 for acute encephalopathy and was found to have strep viridans bacteremia likely dental source. hospital course: Patient was initially admitted for slurred speech with concern for CVA versus TIA. MRI was negative for acute stroke. Course was then complicated by acute metabolic encephalopathy and acute hypoxic respiratory failure secondary to aspiration pneumonia. Required intubation and ICU transfer. Was treated with Levaquin and diuresed for acute on chronic diastolic CHF. She was eventually able to be weaned off ventilator. Underlying cause altered mental status possibly due to baclofen withdrawal. Patient was downgraded to medical floor and mental status was back to baseline. On discharge will continue 5 more days of levofloxacin. She was seen by PROCESS DEVELOPMENT ASSOCIATE recommended. Solids and honey thick liquids. For diabetes was continued on insulin sliding scale. For hypertension will be continued on Toprol, valsartan, hydrochlorothiazide, amlodipine. For mood disorder will be continued on Seroquel. Patient has improved close to her baseline. PT recommended STR and she will be discharged to nursing facility as health care proxy invoked and felt that would be a safer option given her confusion and risk of falls. 5 more days levaquin, Ground solid NDD2 w [place] thick liquids. Time Attestation Discharge coordination time: Greater than 30 minutes Quality: Safe Use of Opioids Does Pt have an Active Cancer Diagnosis on the Problem List?: No Quality: Stroke Does the patient have a stroke diagnosis?: No Physical Exam Vital Signs: Vital Signs: Last Vital Signs Temp 98.7 F 09/27/23 12:45 Pulse 89 09/27/23 12:45 Resp 20 09/27/23 12:45 BP 124/61 09/27/23 12:45 Pulse Ox 93 09/27/23 07:01 O2 Del Method Room Air 09/27/23 12:45 O2 Flow Rate 2 09/24/23 07:00 FiO2 40 09/23/23 09:48 BMI result Body Mass Index 35.5 Const: Other: Constitutional : Awake, interactive, frail, not in distress Neck : Normal inspection, Supple Cardiovascular : RRR, no JVP, no lower extremity edema Respiratory : good bilateral air entry, no crackles, wheezes or rhonchi Gastrointestinal: soft, lax, Normal bowel sounds, Non tender Skin : Warm, Dry Neurological : Alert & oriented to self and place, No focal deficit DS: Data Data Completed and Pending Completed studies during hospitalization [Text1]: Procedures Drainage of Spinal Canal, Percutaneous Approach, Diagnostic (06/23/20) Fluoroscopy of Spinal Cord (06/23/20) Insertion of Infusion Device into Lower Vein, Percutaneous Approach (09/19/21) Insertion of Infusion Device into Right Basilic Vein, Percutaneous Approach (01/12/23) Introduction of Vasopressor into Central Vein, Percutaneous Approach (09/19/21) Labs on day of discharge: Laboratory Results - last 24 hr 09/26/23 09/26/23 09/27/23 16:17 20:28 07:02 POC Glucose 263 H 223 H 191 H 09/27/23 11:30 POC Glucose 266 H Imaging Chest x-ray: Radiologist's impression: ITS Impressions Head CT 09/18/23 21:50 IMPRESSION: No acute intracranial pathology. Chest X-Ray 09/19/23 00:58 IMPRESSION: No evidence for acute disease in the chest. Abdomen X-Ray 09/19/23 10:20 IMPRESSION: No evidence of ileus or obstruction. Postsurgical changes as described. Catheter tubing overlying the right mid abdomen without metallic component identified. Brain MRI 09/19/23 14:20 IMPRESSION: 1. No evidence of acute intracranial abnormalities. 2. Chronic regions of encephalomalacia within the left greater than right occipitoparietal lobes, posterior aspect of the left mesial temporal lobe, and superior aspect of the left cerebellar hemisphere. Mild underlying microangiopathy and generalized cerebral volume loss. Chest X-Ray 09/20/23 00:39 IMPRESSION: ET tube and NG tube in good position. Increasing pulmonary opacities as described above. Findings could be secondary to asymmetric pulmonary edema, aspiration or pneumonia. Chest CT 09/20/23 01:45 IMPRESSION: 1. Large right upper lobe infiltrate and right lower lobe infrahilar infiltrate. Suspect pneumonia. 2. Bilateral dependent lung base consolidation most significant on the left associated with small pleural effusions. Left-sided infiltrate/pneumonia also considered. Fleischner guidelines were followed. Chest X-Ray 09/20/23 05:26 IMPRESSION: 1. Right internal jugular catheter terminating within the right atrium approximately 2 cm inferior to the level of the cavoatrial junction. 2. Endotracheal tube terminating approximately 2 cm superior to the omero. 3. Enteric tube terminating within the stomach. 4. Left base airspace opacification which may represent atelectasis and/or consolidation. 5. Bilateral pleural effusions. Discharge Plan Discharge Anticipated Discharge Date/Time: 09/25/23 10:27 Patient Disposition: er SNF Discharge Diagnosis: baclofen withdrawl Referrals: [facility] [Outside] - 1 Day (SHORT TERM REHAB) [facility] [Outside] - 1 Day (Speech, Nursing and Home Physical Therapy, a nurse or therapist will reach out to you to arrange first visit on 09/27. ) Chris Rodriguez MD [Primary Care Provider] - 1 Week Discharge Medications: New levofloxacin 500 mg tablet 500 mg PO DAILY Qty: 5 0RF Continued metoprolol succinate 25 mg tablet extended release 24 hr 25 mg PO QAM Qty: 90 0RF Rx Instructions: Must call and make cardiology appt for refills atorvastatin 80 mg tablet 1 tab PO DAILY valsartan 80 mg tablet 1 tab PO DAILY aspirin 81 mg tablet,delayed release (DR/EC) 1 tab PO QAM pantoprazole 40 mg tablet,delayed release (DR/EC) 1 tab PO BID hydrochlorothiazide 12.5 mg capsule 1 cap PO DAILY multivitamin Tablet 1 tab PO QAM Myrbetriq 25 mg tablet extended release 24 hr 25 mg PO DAILY quetiapine 25 mg tablet 50 mg PO BEDTIME donepezil 5 mg tablet 5 mg PO DAILY amlodipine 5 mg tablet 5 mg PO DAILY baclofen 10 mg tablet 10 mg PO TID loratadine 10 mg tablet 10 mg PO DAILY insulin lispro [Humalog KwikPen Insulin] 100 unit/mL insulin pen 8 - 24 unit subcut TID quetiapine 25 mg Tablet 12.5 mg PO BID@0900,1700 30 Days Qty: 30 0RF naproxen 250 mg Tablet 250 mg PO BID PRN (Reason: back pain) Qty: 0 0RF lactase [Dairy-Aid] 3,000 unit Tablet 3,000 unit PO TIDWM 30 Days Qty: 90 0RF fluticasone propionate 50 mcg/actuation [place],Suspension 1 spray intranasal BID Qty: 0 0RF insulin glargine [Lantus U-100 Insulin] 100 unit/mL Solution 30 unit subcut BEDTIME 30 Days Qty: 9 0RF Januvia 25 mg Tablet 25 mg PO DAILY 30 Days Qty: 30 0RF Discharge Orders: Discharge Order (Routine); Ordered 09/27/23 Ordered By: Angela Mcneil Diet: Ground solid NDD2 w [place] Activity on Discharge: As tolerated Stand Alone Forms: Patient Portal Discharge page Care Plan Goals: recovery Health Concerns: baclofen withdrawal, aspiration Plan of Treatment: 5 more days levaquin, Ground solid NDD2 w [place] thick liquids. Assessment: see above Discharge Date/Time: 09/27/23 15:56
--- NOTE | 2023-09-27 13:54 | MHC.CM.PN ---
PT MEDICALLY CLEARED FOR DC TO [facility], PER HOSPITALIST PLAN TO INVOKE HCP PRIOR TO DC AND [facility] FOR TRANSPORT AT 3PM. CM CONTACTED PT'S CHRISTOPHER AT 1:40PM AND AWAITING TO FIND OUT FROM [facility] WHEN THEY NEED CHRISTOPHER TO SIGN PT IN.
--- NOTE | 2023-09-27 14:34 | MHC.SL.SWA ---
Speech Pathologist Impression: Risk of Aspiration Due to: Neurological Condition Hx of Recent Extubation Weak Voice Dysphasia Diet Status: Recommend UPGRADE diet to Chopped/Advanced (NDD3) continue on [place] THICK liquids, w/no straws-by cup sip only, pills crushed in puree. Liquid Consistency and Strategies for Safe Swallow: Liquid Intake Recommendation: [place] Thick Liquid Intake Strategies: No Straws Solid Food Consistency: Dietary Recommendations: Chopped/Advanced (NDD3) Additional Modifications to Solid Foods: Moisten w/ sauce/gravy Oral Medication Intake: Crushed with Puree Please contact the pharmacy regarding appropriate crushable or liquid drug formulations that are available whenever modified delivery is recommended. Compensatory Strategies and Precautions to be Taken for Safe Swallow: Sitting Upright (90 deg) No Straw Liquids from Cup Small Bites and Sips Alternate Liquids/Solids Supervision While Eating and Drinking for Safe Swallow: Intermittent Supervision Foods to Avoid: Difficult to chew solids, mixed consistencies. Swallowing Recommended Treatments: Recommendation for Speech: Inpatient Speech Therapy Comment: Patient seen at lunch by ASSISTANT DEPARTMENT MANAGER. Patient was alone in room seated upright with lunch tray in front of her in bed. Patient had taken a few bites of food before ASSISTANT DEPARTMENT MANAGER arrived, express some dislike of the consistency (e.g. called it puree tray had ground meat with gravy, mashed potatoes and squash). Patient c/o did not like or want juice, wanted water, but not thickened. Patient given trial of sip of water, on swallow produced an immediate, repetitive cough. Patient then took independent cup sips of NT liquid with no difficulty noted on swallow. Patient asked appropriate questions about why swallow improves with thickener, also ? how long she would need to be on this consistency. Patient was given cold water at NT consistency, which patient then sipped with no clinical signs of aspiration, and patient expressed satisfaction. Patient was given trial of cracker dipped in pudding, with patient having dentures in place. Patient produced a mildly prolonged rotary chew and timely swallow on this consistency, with no clinical signs of aspiration. Patient noted to take sip of NT juice after swallow of solid. Recommend UPGRADE diet to Chopped/Advanced (NDD3) continue on NECTAR THICK liquids, w/no straws-by cup sip only, pills crushed in puree. If toleration of thin liquids does not improve, patient may benefit from MBSS study (inpatient v. outpatient) for further dx of swallow. ASSISTANT DEPARTMENT MANAGER will continue to follow while inpatient. Frequency/Duration: Date Range for Service Req: Timeline to reassess: Hand Button Splitter Clinican/Clinical Fellow: No Supervisory Statement: I have reviewed and agree with the student/clinical fellow's documentation: N/A Speech Language Pathologist: Ana Young M.A., CCC-ASSISTANT DEPARTMENT MANAGER
--- NOTE | 2023-09-27 14:48 | PC.NURSE ---
Report called to [facility] [phone]
[2023-09-27 15:36] VITALS: BP 96/54; PULSE 87; RESP 20; TEMP 36.4; O2SAT 95
== END 2023-09-27 15:56 | disposition skilled nursing facility (03) | DRG 70 ==
LOC: HO.ED 09-19 01:57 → HO.EDOVER 09-19 07:08 → HO.ICU 09-20 06:56 → HO.S3 09-20 08:34 → HO.EDOVER 09-20 08:34 → HO.ICU 09-24 12:42 → HO.IMC 09-24 20:03
PROVIDERS: Internal Medicine; Internal Medicine Pulmonary Disease; Nurse Practitioner Family; Admitting Provider Student in an Organized Health Care Education/Training Program; Emergency Provider Internal Medicine; PCP Internal Medicine; Visit Provider Student in an Organized Health Care Education/Training Program
DX: G93.41 Metabolic encephalopathy (principal); J69.0 Pneumonitis due to inhalation of food and vomit; J96.01 Acute respiratory failure with hypoxia; I50.32 Chronic diastolic (congestive) heart failure; F19.939 Other psychoactive substance use, unspecified with withdrawal, unspecified; F02.818 Dementia in other diseases classified elsewhere, unspecified severity, with other behavioral disturbance; E11.51 Type 2 diabetes mellitus with diabetic peripheral angiopathy without gangrene; E11.65 Type 2 diabetes mellitus with hyperglycemia; G93.2 Benign intracranial hypertension; I11.0 Hypertensive heart disease with heart failure; G31.83 Neurocognitive disorder with Lewy bodies; Z20.822 Contact with and (suspected) exposure to COVID-19; Z79.82 Long term (current) use of aspirin; Z79.4 Long term (current) use of insulin; Z79.899 Other long term (current) drug therapy
CPT/HCPCS: 36415; 70450; 70551; 71045; 71250; 74018; 80048; 80053; 81001; 82040; 82803; 82947; 83605; 83735; 84100; 85025; 85027; 85610; 87040; 87070; 87086; 87205; 87502; 87635; 92526; 92610; 92950; 93005; 94002; 94003; 97162; 99285; C1758; C9113; J1630; J1650; J1940; J1956; J2185; J2359; J2405; J2704; J3010; J3360; P9047

== ENCOUNTER → 2023-09-18 21:06 | Outpatient (BNV) | payer MEDICARE, SELFPAY | PROVIDERS: Admitting Provider Student in an Organized Health Care Education/Training Program; Emergency Provider Internal Medicine; PCP Internal Medicine; Visit Provider Internal Medicine | DX: R41.82 Altered mental status, unspecified (principal) | CPT/HCPCS: 93010 ==

== ENCOUNTER → 2023-09-19 03:54 | Outpatient (BNV) | payer MEDICARE, SELFPAY | PROVIDERS: Admitting Provider Student in an Organized Health Care Education/Training Program; Emergency Provider Internal Medicine; Visit Provider Student in an Organized Health Care Education/Training Program | DX: J96.01 Acute respiratory failure with hypoxia (principal); T17.900A Unspecified foreign body in respiratory tract, part unspecified causing asphyxiation, initial encounter; G93.41 Metabolic encephalopathy; F03.90 Unspecified dementia, unspecified severity, without behavioral disturbance, psychotic disturbance, mood disturbance, and anxiety | CPT/HCPCS: 99222; 99232; 99239; 99499 ==

== ENCOUNTER → 2023-09-19 03:54 | Outpatient (BNV) | payer MEDICARE, SELFPAY | PROVIDERS: Admitting Provider Student in an Organized Health Care Education/Training Program; Emergency Provider Internal Medicine; PCP Internal Medicine; Visit Provider Nurse Practitioner Family | DX: G93.41 Metabolic encephalopathy (principal); J96.01 Acute respiratory failure with hypoxia | CPT/HCPCS: 36556; 99499 ==

== ENCOUNTER → 2023-09-19 03:54 | Outpatient (BNV) | payer MEDICARE, SELFPAY | PROVIDERS: Admitting Provider Student in an Organized Health Care Education/Training Program; Emergency Provider Internal Medicine; Visit Provider Psychiatry & Neurology Neurology | DX: G93.41 Metabolic encephalopathy (principal); R47.81 Slurred speech | CPT/HCPCS: 99222 ==

== ENCOUNTER → 2023-09-19 03:54 | Outpatient (BNV) | payer MEDICARE, SELFPAY | PROVIDERS: Admitting Provider Student in an Organized Health Care Education/Training Program; Emergency Provider Internal Medicine; PCP Internal Medicine; Visit Provider Internal Medicine Pulmonary Disease | DX: G93.40 Encephalopathy, unspecified (principal); J96.01 Acute respiratory failure with hypoxia; F03.90 Unspecified dementia, unspecified severity, without behavioral disturbance, psychotic disturbance, mood disturbance, and anxiety; J98.4 Other disorders of lung; E11.51 Type 2 diabetes mellitus with diabetic peripheral angiopathy without gangrene | CPT/HCPCS: 99233; 99291 ==

== ENCOUNTER 2023-10-16 00:20 | Emergency (ER) | payer MEDICARE, SELFPAY ==
--- NOTE | 2023-10-16 | ECG_ITS ---
Test Reason : CHEST PAIN Blood Pressure : / mmHG Vent. Rate : 062 BPM Atrial Rate : 062 BPM P-R Int : 108 ms QRS Dur : 100 ms QT Int : 450 ms P-R-T Axes : -20 036 -11 degrees QTc Int : 456 ms Sinus rhythm with short MT T wave abnormality, consider inferior ischemia T wave abnormality, consider anterolateral ischemia Abnormal ECG When compared with ECG of 18-SEP-2023 22:04, Previous ECG has undetermined rhythm, needs review QRS axis Shifted left Borderline criteria for Inferior infarct are no longer Present T wave inversion now evident in Anterior leads Referred By: Generic ED Physician Electronically Signed By:Jose Otero
--- NOTE | ~2023-10-16 | XR_ITS ---
EXAMINATION: XR CHEST CLINICAL INFORMATION: Chest pain. COMPARISON: 09/20/2023 TECHNIQUE: Frontal view of the chest was obtained. FINDINGS: The cardiomediastinal silhouette is normal. There is no focal consolidation or pleural effusion. Thoracic orthopedic hardware is noted. The soft tissues are unremarkable. XR/XR chest 1V IMPRESSION: No acute cardiopulmonary process.
[2023-10-16 00:26] VITALS: BP 131/72; PULSE 80; O2SAT 98
[2023-10-16 00:36] VITALS: BP 146/67; PULSE 65; RESP 18; TEMP 37.2; O2SAT 100; BMI 33.4
[2023-10-16 00:43] VITALS: BP 146/67; PULSE 65; RESP 18; TEMP 37.2; O2SAT 100
--- NOTE | 2023-10-16 00:50 | ED.CHESTPAIN ---
HPI - Chest Pain General Chief Complaint: Chest Pain Stated Complaint: cp Time Seen by Provider: 10/16/23 00:43 Source: patient Mode of arrival: EMS History of Present Illness HPI narrative: 67-year-old female arrives via EMS with EMS stating that she reported left-sided chest pain with onset at 19:00 hours without radiation and reported associated nausea, however when I speak with the patient she states that she has pain all over her body and that this is been ongoing for while and her primary concern is that it archer when she urinates. Patient also informed me that she was being brought in from home. Related Data Home Medications Medication Instructions Recorded Confirmed aspirin 81 mg tablet,delayed 1 tab PO QAM 08/06/21 09/19/23 release atorvastatin 80 mg tablet 1 tab PO DAILY 08/06/21 09/19/23 hydrochlorothiazide 12.5 mg capsule 1 cap PO DAILY 08/06/21 09/19/23 pantoprazole 40 mg tablet,delayed 1 tab PO BID 08/06/21 09/19/23 release valsartan 80 mg tablet 1 tab PO DAILY 08/06/21 09/19/23 multivitamin 1 tab PO QAM 09/19/21 09/19/23 mirabegron 25 mg tablet,extended 25 mg PO DAILY 01/12/23 09/19/23 release 24 hr (Myrbetriq) amlodipine 5 mg tablet 5 mg PO DAILY 01/13/23 09/19/23 baclofen 10 mg tablet 10 mg PO TID 01/13/23 09/19/23 donepezil 5 mg tablet 5 mg PO DAILY 01/13/23 09/19/23 loratadine 10 mg tablet 10 mg PO DAILY 01/13/23 09/19/23 quetiapine 25 mg tablet 50 mg PO BEDTIME 01/13/23 09/19/23 insulin lispro 100 unit/mL 8 - 24 unit subcut TID 08/14/23 09/19/23 subcutaneous pen (Humalog KwikPen (U-100) Insulin) Previous Rx's Medication Instructions Recorded metoprolol succinate 25 mg 25 mg PO QAM #90 tabs 12/26/22 tablet,extended release 24 hr fluticasone propionate 50 1 spray intranasal BID #0 grams 09/06/23 mcg/actuation nasal spray,suspension insulin glargine 100 unit/mL 30 unit (0.3 mL) subcut BEDTIME 30 09/06/23 subcutaneous solution (Lantus days #9 mL U-100 Insulin) lactase 3,000 unit tablet 3,000 unit PO TIDWM 30 days #90 09/06/23 (Dairy-Aid) tabs naproxen 250 mg tablet 250 mg PO BID PRN back pain #0 tabs 09/06/23 quetiapine 25 mg tablet 12.5 mg (1/2 x 25 mg) PO 09/06/23 BID@0900,1700 30 days #30 tabs sitagliptin phosphate 25 mg tablet 25 mg PO DAILY 30 days #30 tabs 09/06/23 (Januvia) levofloxacin 500 mg tablet 500 mg PO DAILY #5 tabs 09/25/23 Allergies Allergy/AdvReac Type Severity Reaction Status Date / Time Sulfa (Sulfonamide Allergy Severe DIFFICULTY Verified 09/18/23 21:02 Antibiotics) BREATHING [SULFA (SULFONAMIDE ANTIBIOTICS)] cephalexin [From KEFLEX] Allergy Intermediate RASH,HIVES Verified 09/18/23 21:02 amoxicillin [AMOXICILLIN] Allergy Unknown DENIES Verified 09/18/23 21:02 THIS ALLERGY 03/28/2018 penicillin V Allergy Unknown Unknown Verified 09/18/23 21:02 sumatriptan [From IMITREX] AdvReac Severe HEART Verified 09/18/23 21:02 PALPITATIONS topiramate [From TOPAMAX] AdvReac Severe AGITATION Verified 09/18/23 21:02 Review of Systems Review of Systems: Pertinent positives and negatives as stated in HPI [facility] Past Medical History Source: nursing notes reviewed Medical History Depression Hyperglycemia due to diabetes mellitus Bacteremia Toxic metabolic encephalopathy Hypernatremia Bradycardia Shock Acute hypotension Encephalopathy Altered mental status Stroke due to stenosis of posterior cerebral artery Cortical blindness Restrictive lung disease Nocturnal hypoxemia Dyspnea on exertion Obesity (BMI 30-39.9) Anxiety Orthopnea Myalgia and myositis Essential hypertension Type 2 diabetes mellitus with unspecified complications Asthma Dementia, Lewy body with behavior disturbance Diabetes HTN (hypertension) UTI (urinary tract infection) CHF (congestive heart failure) Neuropathy Diabetic acetonemia Surgical History History of pancreatic surgery History of arthroscopy of both knees History of appendectomy History of hysterectomy Family History Family History Father No problems noted. Mother Angina at rest Sister Lung cancer Colon cancer COPD (chronic obstructive pulmonary disease) Social History Social History Household Members: Spouse Housing: House Do you presently have visiting nurse or other home services: No Unable to assess alcohol history related to: Unknown Alcohol intake: never Comment: sitter in room Patient Tobacco Use Status: Never used Tobacco Smoked in Last 30 Days: No e-Cigarette/Vaping Use: Never Used Second Hand Smoke Exposure: No Use of substances other than those prescribed or required for medical reasons: No Advance Directives: Yes Advance Directives on File: Yes Advance Directives Date on File: 07/27/20 service: No Current occupational status: disabled Current occupation: right handed Sexual orientation: Straight/Heterosexual Physical Exam Vital Signs: Vital Signs: Last Vital Signs Temp 99.0 F 10/16/23 00:43 Pulse 69 10/16/23 01:40 Resp 12 10/16/23 01:40 BP 148/74 H 10/16/23 01:40 Pulse Ox 98 10/16/23 01:40 O2 Del Method Room Air 10/16/23 01:40 BMI result Body Mass Index 33.4 VITAL SIGNS: Reviewed. GENERAL: Elevated BMI, Well developed, well nourished, in no acute distress. HEAD: Normocephalic/atraumatic EYES: PERRLA, EOMI EARS: Ext canals without abnormality NOSE: Nares patent bilateral OROPHARYNX: no oral lesions noted, posterior pharynx clear NECK: Supple, no adenopathy LUNGS: Normal breath sounds. No adventitious sounds or accessory muscle use. SpO2<98> CARDIOVASCULAR: Regular rate and rhythm without noted murmurs ABDOMEN: Soft, non-tender, non-distended with bowel sounds. MUSCULOSKELETAL: No tenderness, deformities, or effusions noted on gross inspection. EXTREMITIES: No cyanosis, clubbing or edema. SKIN: Inspection of the skin reveals no rashes NEUROLOGIC: Alert and oriented x 2. Strength and sensation to light touch were grossly intact x 4. Medications Administered Discontinued Medications Generic Name Dose Route Start Last Admin Trade Name Freq PRN Reason Stop Dose Admin Potassium Chloride 60 meq 10/16/23 03:24 10/16/23 04:36 Potassium Chloride Er 20 Meq Tab.Er.Prt PO 10/16/23 03:25 Not Given ONCE ONE Potassium Chloride 60 meq 10/16/23 04:37 10/16/23 04:43 Potassium Chloride Packet 20 Meq Packet PO 10/16/23 04:38 60 meq ONCE ONE Administration Medical Decision Making Medical Decision Making [facility] Narrative: 67-year-old female with history and clinical presentation, DDX: Viral illness, lower clinical suspicion for ACS, and no suspicion for pneumonia. Possible UTI. I reviewed all investigations and hematologic indices demonstrate a non infectious leukocytosis without left shift, no anemia or thrombocytopenia. Chemistry indices do not demonstrate an GARY and there is a mild low potassium level which will be repleted with 60 mEq of oral potassium and otherwise serial troponins are flat without acute changes on EKG and patient denies any chest pain at this time. There is a slight elevation in BNP though patient is not hypoxic and nor is she tachypneic. Urinalysis is not consistent with urinary tract infection. Viral testing is negative for COVID-19/influenza. Chest x-ray does not demonstrate any infiltrate or evidence of venous congestion. On my evaluation patient is potentially having some intermittent anginal symptoms, however her history is a little bit challenging to identify what the sources of her discomfort as she also informed me that she did not have chest pain in that instead it was her entire body. I do not find any evidence of acute infection, certainly no urinary tract infection and troponin levels are chronically detectable since December of last year. On review of EKG I do not appreciate any acute changes and patient is asymptomatic for chest pain at this time. She is otherwise discharged back to facility in stable condition. Differential Diagnosis Differential Diagnoses: The differential diagnosis associated with the presentation includes Please see the discussion above Admission/Observation Consideration of admission/observation: Escalation of care including admission/observation considered Please see the discussion above Lab Data [facility] Lab Attestation statement: I reviewed the patient's lab results. Please see the discussion above 10/16/23 00:50 10/16/23 00:50 Labs: Lab Results 10/16/23 10/16/23 Range/Units 00:50 02:52 WBC 13.1 H (4.8-10.8) X10*3/uL RBC 4.48 (4.20-5.50) X10*6/uL Hgb 14.0 (12.0-16.0) g/dl Hct 40.8 (37.0-47.0) % MCV 91.1 (80.0-98.0) fL MCH 31.3 (27.0-33.0) pg MCHC 34.3 (31.0-35.0) g/dl RDW 14.1 (11.0-16.0) % Plt Count 244 (160-400) X10*3/uL MPV 10.1 (9.4-12.3) fL Immature Gran % (Auto) 0.3 (0.0-0.4) % Neut % (Auto) 68.7 (45-73) % Lymph % (Auto) 21.4 (20-40) % [place] % (Auto) 7.1 (2-11) % Eos % (Auto) 2.1 (0-4) % Baso % (Auto) 0.4 (0-2) % Lymph # (Auto) 2.8 (1.2-4.9) X10*3/uL [place] # (Auto) 0.9 (0.1-1.2) X10*3/uL Eos # (Auto) 0.3 (0.0-0.4) X10*3/uL Baso # (Auto) 0.1 (0.0-0.2) X10*3/uL Abs Immat Gran (auto) 0.04 H (0.00-0.03) X10*3/uL Absolute Neuts (auto) 9.0 H (2.0-8.3) x10*3/uL Absolute Nucleated RBC 0.000 (0.0-0.012) X10*3/uL Nucleated RBC % (auto) 0.0 (0.0-0.2) /100WBC Sodium 143 (135-145) mmol/L Potassium 3.2 L (3.3-5.1) mmol/L Chloride 105 (96-108) mmol/L Carbon Dioxide 24 (22-29) mmol/L Anion Gap 17 (12-20) BUN 18 H (9-16) mg/dL Creatinine 0.78 (0.5-1.4) mg/dL Estim Creat Clear Calc 68.9 Estimated GFR > 60 Random Glucose 212 H (60-115) mg/dL Calcium 9.5 (8.4-10.2) mg/dL Total Bilirubin 0.8 (0.0-1.0) mg/dL AST 15 (5-31) U/L ALT 13 (0-31) U/L Alkaline Phosphatase 68 (39-117) U/L Troponin I High Sens 7.6 D 10.2 (<3.5-17.0) ng/L B-Natriuretic Peptide 107 H (<100) pg/mL Total Protein 6.8 (6.5-8.0) g/dL Albumin 3.8 (3.5-5.0) g/dL Urine Color Yellow Urine Appearance Clear Urine pH 7.0 (5.0-9.0) Ur Specific [place] 1.020 (1.005-1.025) Urine Protein Negative (Neg-Trace) mg/dL Urine Glucose (UA) Negative (Negative) mg/dL Urine Ketones 15 (Negative) mg/dL Urine Blood Negative (Negative) Urine Nitrite Negative (Negative) Ur Leukocyte Esterase Small (1+) H (Negative) Urine RBC 0-2 (0-2) /HPF Urine WBC 0-5 (0-5) /HPF Ur Squamous Epith Cells 6-10 (0-2) /HPF Urine Bacteria Trace (None Seen) Hyaline Casts 0-2 (0-2) /LPF COVID-19 ([facility]) Negative (Negative) COVID-19 Clin Com See Note Influenza Type A ([place]) Negative (Negative) Influenza Type B ([place]) Negative (Negative) Influenza A & B Note See Note Independent Interpretation I performed an independent interpretation of an: EKG Interpretation: Sinus rhythm with short RI, HR-62, no STEMI, RI-108/QRS/QTC within normal limits, patient has T-wave abnormalities that are not significantly changed when compared to prior EKG from 09/18/2023. Radiology Impression Discussion of test interpretation with radiology: I have reviewed the radiologist's reading. Radiologist Impression: Please see the discussion above External Record Review External record reviewed: Outpatient record, Prior outpatient labs and Prior outpatient radiology Chronic Conditions Patient?s care impacted by: Diabetes and Hypertension Critical Care Time Critical Care Time Critical Care Time: Yes Total Critical Care Time: 45 Attestation: I personally attest to this time spent taking care of the patient. Discharge Plan Discharge Clinical Impression: Atypical chest pain, Dysuria Patient Disposition: Xfer Other Instructions: Dysuria (ED), Chest Wall Pain (ED) Additional Instructions: 1. Resume all home medications as prescribed. 2. Please follow-up with primary care doctor in the next 1-2 days. Return to the ER for any worsening symptoms. Prescriptions: No Action metoprolol succinate 25 mg tablet extended release 24 hr 25 mg PO QAM Qty: 90 0RF Rx Instructions: Must call and make cardiology appt for refills atorvastatin 80 mg tablet 1 tab PO DAILY valsartan 80 mg tablet 1 tab PO DAILY aspirin 81 mg tablet,delayed release (DR/EC) 1 tab PO QAM pantoprazole 40 mg tablet,delayed release (DR/EC) 1 tab PO BID hydrochlorothiazide 12.5 mg capsule 1 cap PO DAILY multivitamin Tablet 1 tab PO QAM Myrbetriq 25 mg tablet extended release 24 hr 25 mg PO DAILY quetiapine 25 mg tablet 50 mg PO BEDTIME donepezil 5 mg tablet 5 mg PO DAILY amlodipine 5 mg tablet 5 mg PO DAILY baclofen 10 mg tablet 10 mg PO TID loratadine 10 mg tablet 10 mg PO DAILY insulin lispro [Humalog KwikPen Insulin] 100 unit/mL insulin pen 8 - 24 unit subcut TID quetiapine 25 mg Tablet 12.5 mg PO BID@0900,1700 30 Days Qty: 30 0RF naproxen 250 mg Tablet 250 mg PO BID PRN (Reason: back pain) Qty: 0 0RF lactase [Dairy-Aid] 3,000 unit Tablet 3,000 unit PO TIDWM 30 Days Qty: 90 0RF fluticasone propionate 50 mcg/actuation [place],Suspension 1 spray intranasal BID Qty: 0 0RF insulin glargine [Lantus U-100 Insulin] 100 unit/mL Solution 30 unit subcut BEDTIME 30 Days Qty: 9 0RF Januvia 25 mg Tablet 25 mg PO DAILY 30 Days Qty: 30 0RF levofloxacin 500 mg tablet 500 mg PO DAILY Qty: 5 0RF Referrals: Petr Esposito MD [Primary Care Provider] -
[2023-10-16 00:55] LABS: MANUAL DIFF FLAG NO
[2023-10-16 00:58] LABS: Basophils Absolute Auto 0.1 X10*3/uL (0.0-0.2); Basophils Percent Auto 0.4 % (0-2); Eosinophils Absolute Auto 0.3 X10*3/uL (0.0-0.4); Eosinophils Percent Auto 2.1 % (0-4); Hematocrit 40.8 % (37.0-47.0); Imm Gran Abs Auto 0.04 X10*3/uL (0.00-0.03); Imm Gran Pct Auto 0.3 % (0.0-0.4); Lymphocytes Absolute Auto 2.8 X10*3/uL (1.2-4.9); Lymphocytes Percent Auto 21.4 % (20-40); Mean Corpuscular HGB Conc 34.3 g/dl (31.0-35.0); Mean Corpuscular Hemoglobin 31.3 pg (27.0-33.0); Mean Corpuscular Volume 91.1 fL (80.0-98.0); Mean Platelet Volume 10.1 fL (9.4-12.3); Monocytes Absolute Auto 0.9 X10*3/uL (0.1-1.2); Monocytes Percent Auto 7.1 % (2-11); Neutrophils Percent Auto 68.7 % (45-73); Platelet Count 244 X10*3/uL (160-400); Red Blood Count 4.48 X10*6/uL (4.20-5.50); Red Cell Distribution Width 14.1 % (11.0-16.0); White Blood Count 13.1 X10*3/uL (4.8-10.8)
[2023-10-16 01:04] VITALS: PULSE 73
--- NOTE | 2023-10-16 01:06 | PC.NURSE ---
nsr on monitor with inverted t waves same on ekg reviewed by Dr. Washburn.
[2023-10-16 01:13] LABS: Alanine Aminotransferase 13 U/L (0-31); Albumin Level 3.8 g/dL (3.5-5.0); Alkaline Phosphatase 68 U/L (39-117); Anion Gap 17 (12-20); Aspartate Amino Transferase 15 U/L (5-31); Bilirubin Total 0.8 mg/dL (0.0-1.0); Blood Urea Nitrogen 18 mg/dL (9-16); Calcium 9.5 mg/dL (8.4-10.2); Carbon Dioxide 24 mmol/L (22-29); Chloride 105 mmol/L (96-108); Creatinine Clr Calc Pharmacy 68.9; Estimated Glomerular Filt Rate > 60; Glucose Random 212 mg/dL (60-115); Potassium 3.2 mmol/L (3.3-5.1); Sodium 143 mmol/L (135-145); Total Protein 6.8 g/dL (6.5-8.0)
[2023-10-16 01:18] LABS: COVID-19 Test Negative (Negative); IDNOW Serial# 08D9AD1C; IDNOW Serial# 152EDE1D; Influenza A Negative (Negative); Influenza B2 Negative (Negative)
[2023-10-16 01:19] LABS: B Type Natriuretic Peptide 107 pg/mL (<100); Troponin-I High Sensitivity 7.6 ng/L (<3.5-17.0)
[2023-10-16 01:40] VITALS: BP 148/74; PULSE 69; RESP 12; O2SAT 98
[2023-10-16 03:00] LABS: Appearance Urine Clear; Color Urine Yellow; Glucose Urine UA Negative (Negative); Leukocyte Esterase Urine Small (1+) (Negative); Nitrite Urine Negative (Negative); UMIC TRIGGER UACC YES; Urine Blood Negative (Negative); Urine Ketones 15 mg/dL (Negative); Urine Protein Negative (Neg-Trace)
[2023-10-16 03:18] LABS: Troponin-I High Sensitivity 10.2 ng/L (<3.5-17.0)
[2023-10-16 03:27] LABS: Bacteria Urine Trace (None Seen); Hyaline Casts Urine 0-2 /LPF (0-2); RBC Urine 0-2 /HPF (0-2); UACC Culture Trigger YES; WBC Urine 0-5 /HPF (0-5)
[2023-10-16] MEDS: Potassium Chloride Packet 20 MEQ PACKET 60 MEQ PO (04:43)
--- NOTE | 2023-10-16 05:04 | PC.NURSE ---
pt has been ambulating with steady gait. nad. resp even and unlabored. pt did not tolerate potassium tablets; Dr. Washburn notified. pt medicated per mar thickened nectar thick per snf paperwork. pt tolerated well. awaiting ems transfer to facility.
--- NOTE | 2023-10-16 05:21 | PC.NURSE ---
report called to [facility].
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
[2023-10-16 08:15] VITALS: BP 198/73; PULSE 89; RESP 16; TEMP 36.8; O2SAT 99
--- NOTE | 2023-10-16 08:52 | PC.NURSE ---
report given to EMS at this time. pt being transported back to [facility] at this time.
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
== END 2023-10-16 08:54 ==
PROVIDERS: Emergency Provider Student in an Organized Health Care Education/Training Program; PCP Family Medicine
DX: R07.89 Other chest pain (principal); R30.0 Dysuria; R11.2 Nausea with vomiting, unspecified; Z79.899 Other long term (current) drug therapy; Z11.52 Encounter for screening for COVID-19
CPT/HCPCS: 36415; 71045; 80053; 81001; 81003; 83880; 84484; 85025; 87086; 87502; 87635; 93005; 99284; 99285

== ENCOUNTER → 2023-10-16 00:40 | Outpatient (BNV) | payer MEDICARE, SELFPAY | PROVIDERS: Emergency Provider Student in an Organized Health Care Education/Training Program; PCP Family Medicine; Visit Provider Internal Medicine Cardiovascular Disease | DX: R94.31 Abnormal electrocardiogram [ECG] [EKG] (principal) | CPT/HCPCS: 93010 ==

== ENCOUNTER 2023-11-06 15:18 | Inpatient (IN) | payer MEDICARE, SELFPAY ==
--- NOTE | 2023-11-06 15:48 | ED_ITS ---
HPI - Psych General Chief Complaint: General Medical Stated Complaint: SEC 12:[place],TRIED TO ELOPE FROM SNF PER EMS Source: patient and old records reviewed Mode of arrival: EMS Limitations: other (dementia) History of Present Illness HPI Narrative: 67 yo female with PMH of lewy body dementia, HTN, IDDM,, mood disorder, dCHF, aspiration pneumonia with resp failure requiring intubation here with c/o hating [facility] and the staff. She refuses most medications except insulin. She is currently on macrobid 100mg BID start date 11/03 end date 11/10. She tried to elope today but did not get out of the building then threatened to harm the staff. She refuses to go back. They do not feel they can manage her there is no locked unit. She wants to go live with her sister in [place]. The is here he denies any new changes or confusions states this was abrupt just had stable MRI Sep 2023 complaint: feels depressed, homicidal ideation and anxiety Onset (ago): week(s) Duration: getting worse History of same: Yes Relieving factors: none Exacerbating factors: other Context: significant life stressor Associated psychiatric symptoms: depression and homicidal ideation Associated symptoms: denies other symptoms Treatments prior to arrival: placed on mental health hold Related Data Home Medications Medication Instructions Recorded Confirmed aspirin 81 mg tablet,delayed 1 tab PO QAM 08/06/21 09/19/23 release atorvastatin 80 mg tablet 1 tab PO DAILY 08/06/21 09/19/23 hydrochlorothiazide 12.5 mg capsule 1 cap PO DAILY 08/06/21 09/19/23 pantoprazole 40 mg tablet,delayed 1 tab PO BID 08/06/21 09/19/23 release valsartan 80 mg tablet 1 tab PO DAILY 08/06/21 09/19/23 multivitamin 1 tab PO QAM 09/19/21 09/19/23 mirabegron 25 mg tablet,extended 25 mg PO DAILY 01/12/23 09/19/23 release 24 hr (Myrbetriq) amlodipine 5 mg tablet 5 mg PO DAILY 01/13/23 09/19/23 baclofen 10 mg tablet 10 mg PO TID 01/13/23 09/19/23 donepezil 5 mg tablet 5 mg PO DAILY 01/13/23 09/19/23 loratadine 10 mg tablet 10 mg PO DAILY 01/13/23 09/19/23 quetiapine 25 mg tablet 50 mg PO BEDTIME 01/13/23 09/19/23 insulin lispro 100 unit/mL 8 - 24 unit subcut TID 08/14/23 09/19/23 subcutaneous pen (Humalog KwikPen (U-100) Insulin) Previous Rx's Medication Instructions Recorded metoprolol succinate 25 mg 25 mg PO QAM #90 tabs 12/26/22 tablet,extended release 24 hr fluticasone propionate 50 1 spray intranasal BID #0 grams 09/06/23 mcg/actuation nasal spray,suspension insulin glargine 100 unit/mL 30 unit (0.3 mL) subcut BEDTIME 30 09/06/23 subcutaneous solution (Lantus days #9 mL U-100 Insulin) lactase 3,000 unit tablet 3,000 unit PO TIDWM 30 days #90 09/06/23 (Dairy-Aid) tabs naproxen 250 mg tablet 250 mg PO BID PRN back pain #0 tabs 09/06/23 quetiapine 25 mg tablet 12.5 mg (1/2 x 25 mg) PO 09/06/23 BID@0900,1700 30 days #30 tabs sitagliptin phosphate 25 mg tablet 25 mg PO DAILY 30 days #30 tabs 09/06/23 (Januvia) levofloxacin 500 mg tablet 500 mg PO DAILY #5 tabs 09/25/23 Allergies Allergy/AdvReac Type Severity Reaction Status Date / Time Sulfa (Sulfonamide Allergy Severe DIFFICULTY Verified 09/18/23 21:02 Antibiotics) BREATHING [SULFA (SULFONAMIDE ANTIBIOTICS)] cephalexin [From KEFLEX] Allergy Intermediate RASH,HIVES Verified 09/18/23 21:02 amoxicillin [AMOXICILLIN] Allergy Unknown DENIES Verified 09/18/23 21:02 THIS ALLERGY 03/28/2018 penicillin V Allergy Unknown Unknown Verified 09/18/23 21:02 sumatriptan [From IMITREX] AdvReac Severe HEART Verified 09/18/23 21:02 PALPITATIONS topiramate [From TOPAMAX] AdvReac Severe AGITATION Verified 09/18/23 21:02 Review of Systems 2 Review of Systems: Constitutional : No Fever, No Chills ENT/Mouth : No Ear Pain, No Nasal Congestion, No sore throat Eyes: No Eye Pain, No Swelling, No Redness Cardiovascular : No Chest Pain, No SOB Respiratory : No Cough, No Sputum, No Dyspnea Gastrointestinal : No Nausea, No Vomiting, No Diarrhea, No Hematochezia, No Melena Genitourinary : No Dysuria, No Urinary Frequency, No Hematuria Musculoskeletal : No Myalgias Skin : No Skin Lesions, No rash Neuro : No Weakness, No Numbness, No Paresthesias, No Dizziness, No Headache Psych : positive Anxiety, positive Depression, no SI pos HI All other systems reviewed and are negative [facility] Past Medical History Source: old records reviewed Medical History Depression Hyperglycemia due to diabetes mellitus Bacteremia Toxic metabolic encephalopathy Hypernatremia Bradycardia Shock Acute hypotension Encephalopathy Altered mental status Stroke due to stenosis of posterior cerebral artery Cortical blindness Restrictive lung disease Nocturnal hypoxemia Dyspnea on exertion Obesity (BMI 30-39.9) Anxiety Orthopnea Myalgia and myositis Essential hypertension Type 2 diabetes mellitus with unspecified complications Asthma Dementia, Lewy body with behavior disturbance Diabetes HTN (hypertension) UTI (urinary tract infection) CHF (congestive heart failure) Neuropathy Diabetic acetonemia Surgical History History of pancreatic surgery History of arthroscopy of both knees History of appendectomy History of hysterectomy Family History Family History Father No problems noted. Mother Angina at rest Sister Lung cancer Colon cancer COPD (chronic obstructive pulmonary disease) Social History Social History Household Members: Spouse Housing: House Do you presently have visiting nurse or other home services: No Unable to assess alcohol history related to: Unknown Alcohol intake: never Comment: sitter in room Patient Tobacco Use Status: Never used Tobacco Smoked in Last 30 Days: No e-Cigarette/Vaping Use: Never Used Second Hand Smoke Exposure: No Use of substances other than those prescribed or required for medical reasons: No Advance Directives: Yes Advance Directives on File: Yes Advance Directives Date on File: 07/27/20 service: No Current occupational status: disabled Current occupation: right handed Sexual orientation: Straight/Heterosexual Physical Exam 2 Vital Signs: Vital Signs: Last Vital Signs Temp 99.1 F 11/06/23 16:09 Pulse 77 11/06/23 16:09 Resp 16 11/06/23 16:09 BP 121/58 L 11/06/23 16:09 Pulse Ox 93 11/06/23 16:09 O2 Del Method Room Air 11/06/23 16:09 BMI result Body Mass Index 34.4 Appearance: Alert. confused. No acute distress. slighty agitated Eyes: Pupils equal, round and reactive to light. ENT: Pharynx normal. Neck: Normal inspection. Neck supple. CVS: Normal heart rate and rhythm. Pulses normal. Respiratory: No respiratory distress. Breath sounds normal. Abdomen: Soft and nontender. Skin: Skin warm and dry. Normal skin color. Normal skin turgor. Extremities: No lower extremity edema. No calf ttp Neuro: confused. no gross motor or sensory deficits but limited due to participation, CN 2-12 intact. Course Course Course Narrative: Patient placed in physician observation at 549pm. The indication for observation is that the patient needs more time to see if their agitation improves or they will need to be admitted for [facility] or CM needs to get involved. At this time the patient is well developed well nourished, lungs clear, CV RRR, abd nontender, neuro is at baseline has been on macrobid for 2 days will continue wait on culture repleted K orally x 2 will recheck in AM Medical Decision Making Medical Decision Making [facility] Narrative: 67 yo female with PMH of lewy body dementia, HTN, IDDM,, mood disorder, dCHF, aspiration pneumonia with resp failure requiring intubation here with agitation HI towads SNF staff, attempts to elope [facility]. At this time labs, UA and will refer to CARE team and likely [facility]. case management will need to get involved as well it seems they cannot manage her anymore it is not a locked unit and she is trying to run away from facility Differential Diagnosis Differential Diagnoses: The differential diagnosis associated with the presentation includes worsening dementia, mood disorder, UTI Admission/Observation Consideration of admission/observation: Escalation of care including admission/observation considered will need observation until she sees CARE team or [facility] observation started at [facility] Lab Attestation statement: I reviewed the patient's lab results. 11/06/23 16:46 11/06/23 16:46 Labs: Lab Results 03/05/24 03/05/24 03/05/24 Range/Units 16:39 16:46 17:03 WBC 11.7 H (4.8-10.8) X10*3/uL RBC 4.46 (4.20-5.50) X10*6/uL Hgb 14.0 (12.0-16.0) g/dl Hct 39.8 (37.0-47.0) % MCV 89.2 (80.0-98.0) fL MCH 31.4 (27.0-33.0) pg MCHC 35.2 H (31.0-35.0) g/dl RDW 14.3 (11.0-16.0) % Plt Count 302 (160-400) X10*3/uL MPV 9.5 (9.4-12.3) fL Immature Gran % (Auto) 0.4 (0.0-0.4) % Neut % (Auto) 72.7 (45-73) % Lymph % (Auto) 18.1 L (20-40) % [place] % (Auto) 7.4 (2-11) % Eos % (Auto) 0.8 (0-4) % Baso % (Auto) 0.6 (0-2) % Lymph # (Auto) 2.1 (1.2-4.9) X10*3/uL [place] # (Auto) 0.9 (0.1-1.2) X10*3/uL Eos # (Auto) 0.1 (0.0-0.4) X10*3/uL Baso # (Auto) 0.1 (0.0-0.2) X10*3/uL Abs Immat Gran (auto) 0.05 H (0.00-0.03) X10*3/uL Absolute Neuts (auto) 8.5 H (2.0-8.3) x10*3/uL Absolute Nucleated RBC 0.000 (0.0-0.012) X10*3/uL Nucleated RBC % (auto) 0.0 (0.0-0.2) /100WBC Sodium 140 (135-145) mmol/L Potassium 2.7 L* (3.3-5.1) mmol/L Chloride 106 (96-108) mmol/L Carbon Dioxide 25 (22-29) mmol/L Anion Gap 12 (12-20) BUN 15 (9-16) mg/dL Creatinine 0.78 (0.5-1.4) mg/dL Estim Creat Clear Calc 70.0 Estimated GFR > 60 POC Glucose 180 H (60-115) mg/dL Random Glucose 200 H (60-115) mg/dL Calcium 9.5 (8.4-10.2) mg/dL Magnesium 1.7 (1.6-2.6) mg/dL Total Bilirubin 0.6 (0.0-1.0) mg/dL Direct Bilirubin 0.2 (0.0-0.5) mg/dL AST 16 (5-31) U/L ALT 13 (0-31) U/L Alkaline Phosphatase 67 (39-117) U/L Total Protein 6.9 (6.5-8.0) g/dL Albumin 3.8 (3.5-5.0) g/dL Lipase 26 (8-78) U/L Urine Color Dark Yellow Urine Appearance Cloudy Urine pH 6.5 (5.0-9.0) Ur Specific [place] 1.020 (1.005-1.025) Urine Protein Trace (Neg-Trace) mg/dL Urine Glucose (UA) Negative (Negative) mg/dL Urine Ketones Trace (Negative) mg/dL Urine Blood Negative (Negative) Urine Nitrite Negative (Negative) Ur Leukocyte Esterase Moderate (2+) H (Negative) Urine RBC 0-2 (0-2) /HPF Urine WBC 21-50 H (0-5) /HPF Ur Squamous Epith Cells >20 (0-2) /HPF Urine Bacteria 1+ (None Seen) Hyaline Casts 0-2 (0-2) /LPF Influenza Type A (PCR) NEGATIVE (Negative) Influenza Type B (PCR) NEGATIVE (Negative) RSV RNA Qual (PCR) NEGATIVE (Negative) SARS-CoV-2 RNA (RT-PCR) NEGATIVE (Negative) Independent Historian Clinical information obtained from an independent historian. History obtained from or confirmed by: Spouse and EMS External Record Review External record reviewed: Inpatient record Discharge Plan Discharge Clinical Impression: Acute hypokalemia, Acute UTI Dementia Qualifiers: Dementia type: Lewy body dementia Dementia severity: moderate Dementia behavioral or psychological symptom: with agitation Qualified Code(s): G31.83 - Neurocognitive disorder with Lewy bodies Patient Disposition: Still a Patient Prescriptions: No Action metoprolol succinate 25 mg tablet extended release 24 hr 25 mg PO QAM Qty: 90 0RF Rx Instructions: Must call and make cardiology appt for refills atorvastatin 80 mg tablet 1 tab PO DAILY valsartan 80 mg tablet 1 tab PO DAILY aspirin 81 mg tablet,delayed release (DR/EC) 1 tab PO QAM pantoprazole 40 mg tablet,delayed release (DR/EC) 1 tab PO BID hydrochlorothiazide 12.5 mg capsule 1 cap PO DAILY multivitamin Tablet 1 tab PO QAM Myrbetriq 25 mg tablet extended release 24 hr 25 mg PO DAILY quetiapine 25 mg tablet 50 mg PO BEDTIME donepezil 5 mg tablet 5 mg PO DAILY amlodipine 5 mg tablet 5 mg PO DAILY baclofen 10 mg tablet 10 mg PO TID loratadine 10 mg tablet 10 mg PO DAILY insulin lispro [Humalog KwikPen Insulin] 100 unit/mL insulin pen 8 - 24 unit subcut TID quetiapine 25 mg Tablet 12.5 mg PO BID@0900,1700 30 Days Qty: 30 0RF naproxen 250 mg Tablet 250 mg PO BID PRN (Reason: back pain) Qty: 0 0RF lactase [Dairy-Aid] 3,000 unit Tablet 3,000 unit PO TIDWM 30 Days Qty: 90 0RF fluticasone propionate 50 mcg/actuation [place],Suspension 1 spray intranasal BID Qty: 0 0RF insulin glargine [Lantus U-100 Insulin] 100 unit/mL Solution 30 unit subcut BEDTIME 30 Days Qty: 9 0RF Januvia 25 mg Tablet 25 mg PO DAILY 30 Days Qty: 30 0RF levofloxacin 500 mg tablet 500 mg PO DAILY Qty: 5 0RF
[2023-11-06 16:09] VITALS: BP 121/58; PULSE 77; PULSE 95; RESP 16; TEMP 37.3; O2SAT 93; O2SAT 98; BMI 34.4
--- NOTE | 2023-11-06 16:15 | MHC.CARE ---
1530 Call from [facility] co-response clinician, Gala, she evaluated patient in the community and sent her here (on Section 12A) for geriatric inpatient psych placement
--- NOTE | 2023-11-06 16:32 | PC.NURSE ---
Addendum entered by Renetta Handley RN 11/06/23 17:43: pt a&o x4 Original Note: pt comes from [facility] after attempting to elope, per EMS. pt presents calm and cooperative. per EMS, pt with hx of lewy body dementia, trauma, delusions, and neuro deficits at baseline after brain cancer. at bedside for arrival of pt and left shortly after provider met with pt. currently resting quietly on stretcher in no apparent distress. rr even/unlabored. 1:1 sitter at bedside for pt safety. call sandra within reach. plan of care ongoing.
[2023-11-06 16:43] LABS: Glucose, Whole Blood 180 mg/dL (60-115)
[2023-11-06 16:49] LABS: MANUAL DIFF FLAG NO
[2023-11-06 16:51] LABS: Basophils Absolute Auto 0.1 X10*3/uL (0.0-0.2); Basophils Percent Auto 0.6 % (0-2); Eosinophils Absolute Auto 0.1 X10*3/uL (0.0-0.4); Eosinophils Percent Auto 0.8 % (0-4); Hematocrit 39.8 % (37.0-47.0); Imm Gran Abs Auto 0.05 X10*3/uL (0.00-0.03); Imm Gran Pct Auto 0.4 % (0.0-0.4); Lymphocytes Absolute Auto 2.1 X10*3/uL (1.2-4.9); Lymphocytes Percent Auto 18.1 % (20-40); Mean Corpuscular HGB Conc 35.2 g/dl (31.0-35.0); Mean Corpuscular Hemoglobin 31.4 pg (27.0-33.0); Mean Corpuscular Volume 89.2 fL (80.0-98.0); Mean Platelet Volume 9.5 fL (9.4-12.3); Monocytes Absolute Auto 0.9 X10*3/uL (0.1-1.2); Monocytes Percent Auto 7.4 % (2-11); Neutrophils Absolute Auto 8.5 x10*3/uL (2.0-8.3); Neutrophils Percent Auto 72.7 % (45-73); Platelet Count 302 X10*3/uL (160-400); Red Blood Count 4.46 X10*6/uL (4.20-5.50); Red Cell Distribution Width 14.3 % (11.0-16.0); White Blood Count 11.7 X10*3/uL (4.8-10.8)
--- NOTE | 2023-11-06 16:54 | MHC.EDTECH ---
PATIENT WAS BIBA FROM HOME ,BLOOD DRAWN ,RSV/COVID SWAB COLLECTED AND SENT TO LAB ,PATIENT WAS CHANGE INTO (GREEN GOWN AND BLUE PANTS ) ,PATIENT BELONINGS ARE LOCKED UP IN POD LOCKER # 4 ,PATIENT OBSERVER AT BEDSIDE .
[2023-11-06 17:17] LABS: Appearance Urine Cloudy; Color Urine Dark Yellow; Glucose Urine UA Negative (Negative); Leukocyte Esterase Urine Moderate (2+) (Negative); Nitrite Urine Negative (Negative); PH 6.5 (5.0-9.0); UMIC TRIGGER UACC YES; Urine Blood Negative (Negative); Urine Ketones Trace mg/dL (Negative); Urine Protein Trace mg/dL (Neg-Trace)
[2023-11-06 17:34] LABS: Influenza A PCR NEGATIVE (Negative); Influenza B PCR NEGATIVE (Negative); Resp Syncy Virus RNA Qual PCR NEGATIVE (Negative); SARS COV2 PCR INHOUSE NEGATIVE (Negative)
[2023-11-06 17:42] LABS: Bacteria Urine 1+ (None Seen); Hyaline Casts Urine 0-2 /LPF (0-2); RBC Urine 0-2 /HPF (0-2); Squamous Epithelial Cell Urine >20 /HPF (0-2); UACC Culture Trigger YES; WBC Urine 21-50 /HPF (0-5)
[2023-11-06 17:45] LABS: Alanine Aminotransferase 13 U/L (0-31); Albumin Level 3.8 g/dL (3.5-5.0); Alkaline Phosphatase 67 U/L (39-117); Anion Gap 12 (12-20); Aspartate Amino Transferase 16 U/L (5-31); Bilirubin Direct 0.2 mg/dL (0.0-0.5); Bilirubin Total 0.6 mg/dL (0.0-1.0); Blood Urea Nitrogen 15 mg/dL (9-16); Calcium 9.5 mg/dL (8.4-10.2); Carbon Dioxide 25 mmol/L (22-29); Chloride 106 mmol/L (96-108); Estimated Glomerular Filt Rate > 60; Glucose Random 200 mg/dL (60-115); Lipase 26 U/L (8-78); Magnesium 1.7 mg/dL (1.6-2.6); Potassium 2.7 mmol/L (3.3-5.1); Sodium 140 mmol/L (135-145); Total Protein 6.9 g/dL (6.5-8.0)
--- NOTE | 2023-11-06 17:50 | PC.NURSE ---
pt given phone to call .
[2023-11-06 18:25] VITALS: BP 110/53; PULSE 79; RESP 16; TEMP 37.1; O2SAT 97
[2023-11-06] MEDS: Potassium Chloride Packet 20 MEQ PACKET 40 MEQ PO (18:27)
[2023-11-06 19:47] VITALS: BP 120/60; PULSE 80; RESP 16; TEMP 37; O2SAT 97
--- NOTE | 2023-11-06 19:49 | MHC.EDTECH ---
PATIENT WAS SET UP WITH DINNER ,ATE 100 % OF MEAL ,DRANK 360 ML FLUIDS ,PATIENT IS IN [employer] WATCHING TELEVISION ,PATIENT OBSERVOR AT BEDSIDE .
--- NOTE | 2023-11-06 21:01 | PC.NURSE ---
report given to BRENT Balderrama
[2023-11-06] MEDS: Nitrofurantoin Monohyd/M-Cryst 100 MG CAPSULE PO (21:19)
[2023-11-06] MEDS: Potassium Chloride Packet 20 MEQ PACKET PO (22:30)
[2023-11-06] MEDS: Insulin Glargine,Hum.rec.anlog 100 UNIT/ML 10 ML VIAL 30 UNIT SUBCUT (22:58)
[2023-11-06] MEDS: Baclofen 10 MG TABLET PO (23:04)
--- NOTE | 2023-11-07 | ECG_ITS ---
Test Reason : QT INTERVAL Blood Pressure : / mmHG Vent. Rate : 063 BPM Atrial Rate : 063 BPM P-R Int : 116 ms QRS Dur : 102 ms QT Int : 416 ms P-R-T Axes : -20 042 000 degrees QTc Int : 425 ms Normal sinus rhythm T wave abnormality, consider anterolateral ischemia Abnormal ECG When compared with ECG of 16-OCT-2023 00:40, No significant change was found Referred By: Gloria Paul Electronically Signed By:Jose Otero
[2023-11-07 01:59] VITALS: BP 126/58; PULSE 80; RESP 16; TEMP 36.4; O2SAT 97
[2023-11-07 06:00] VITALS: BP 136/77; PULSE 71; RESP 16; TEMP 36.7; O2SAT 96
[2023-11-07] MEDS: Omeprazole 20 MG CAPSULE.DR PO (06:07)
[2023-11-07 06:32] LABS: Glucose, Whole Blood 141 mg/dL (60-115)
[2023-11-07] MEDS: Atorvastatin Calcium 80 MG TABLET PO (08:39)
[2023-11-07] MEDS: Nitrofurantoin Monohyd/M-Cryst 100 MG CAPSULE PO ×2 (08:39→20:26)
[2023-11-07] MEDS: Potassium Chloride Packet 20 MEQ PACKET 40 MEQ PO (08:39)
[2023-11-07] MEDS: QUEtiapine Fumarate 25 MG TABLET 12.5 MG PO ×2 (08:39→18:11)
[2023-11-07] MEDS: Valsartan 80 MG TABLET PO (08:40)
[2023-11-07] MEDS: hydroCHLOROthiazide 12.5 MG TABLET PO (08:40)
[2023-11-07] MEDS: oxyBUTYnin chloride ER 5 MG TAB.ER.24 10 MG PO (08:40)
[2023-11-07] MEDS: Donepezil HCl 5 MG TABLET PO (08:40)
[2023-11-07] MEDS: Multivitamin TABLET 1 TAB PO (08:40)
[2023-11-07] MEDS: Metoprolol Succinate ER 25 MG TAB.ER.24H PO (08:40)
[2023-11-07] MEDS: Aspirin Enteric Coated 81 MG TABLET.DR PO (08:40)
[2023-11-07] MEDS: amLODIPine Besylate 10 MG TABLET PO (08:40)
[2023-11-07 08:44] LABS: Amphetamine Screen Urine Not Detected (Not Detect); Barbiturates, Urine Not Detected (Not Detect); Benzodiazepines Screen Urine Not Detected (Not Detect); Cannabinoid Screen Urine Not Detected (Not Detect); Cocaine Screen Urine Not Detected (Not Detect); Fentanyl, urine Not Detected (Not Detect); Opiate Screen Urine Not Detected (Not Detect); Phencyclidine Screen Urine Not Detected (Not Detect)
[2023-11-07] MEDS: Lactase TABLET 1 TAB PO ×2 (09:10→18:10)
--- NOTE | 2023-11-07 09:29 | PC.NURSE ---
Assumed care of patient at 0700, patient appears to be in no apparent distress, ambulating independently around BH pod, offering no concerns to this RN. Pt verbalizes understanding of plan of care for inpt bedsearch. Pt also verbalizes understanding of need to drink potassium replacement
[2023-11-07 12:13] LABS: Glucose, Whole Blood 162 mg/dL (60-115)
[2023-11-07 12:42] LABS: Anion Gap 11 (12-20); Blood Urea Nitrogen 12 mg/dL (9-16); Calcium 9.8 mg/dL (8.4-10.2); Carbon Dioxide 27 mmol/L (22-29); Chloride 106 mmol/L (96-108); Creatinine Clr Calc Pharmacy 76.8; Estimated Glomerular Filt Rate > 60; Glucose Random 168 mg/dL (60-115); Potassium 3.8 mmol/L (3.3-5.1); Sodium 140 mmol/L (135-145)
[2023-11-07] MEDS: Baclofen 10 MG TABLET PO ×2 (14:10→20:26)
[2023-11-07 17:00] VITALS: BP 106/53; PULSE 69; RESP 16; TEMP 36.2; O2SAT 99
[2023-11-07 17:02] LABS: C Reactive Protein 0.27 mg/dL (< or = 0.50)
[2023-11-07 17:38] LABS: Glucose, Whole Blood 232 mg/dL (60-115)
[2023-11-07] MEDS: Insulin Lispro 100 UNIT/ML 3 ML VIAL SUBCUT (17:55)
--- NOTE | 2023-11-07 19:34 | PC.NURSE ---
Late entry; PT arrived on unit at 16:35, change management administrator completed with BRENT Devries. No issues with skin, no contraband found.
[2023-11-07 20:24] LABS: Glucose, Whole Blood 207 mg/dL (60-115)
[2023-11-07] MEDS: QUEtiapine Fumarate 50 MG TABLET PO (20:26)
[2023-11-07] MEDS: Insulin Glargine,Hum.rec.anlog 100 UNIT/ML 10 ML VIAL 30 UNIT SUBCUT (20:27)
--- NOTE | 2023-11-07 22:52 | PC.ADMIT ---
PT is a 67 year old liberian speaking female that arrived on this unit at 16:35 [place] [facility] [place] and was placed on 5 minute safety checks due to her attempt to elope the ED. Legal status: 12b. PT was sent [place] the [facility] after staff reported she has become increasingly aggressive with staff and attempted to elope from the facility several times. PT does have a hx of similar presentation. Upon admission pt reports she hates the facility and that she does not feel she is receiving good care. PT was found to have a UTI upon arrival and is being treated with macrobid. PMH includes Lewy Body Dementia, DM II, CVA, GARY. PT was calm and cooperative with the admission process and signed all legal paperwork.
[2023-11-08] MEDS: Omeprazole 20 MG CAPSULE.DR PO ×2 (05:11→16:31)
[2023-11-08 06:00] VITALS: BP 122/66; PULSE 99; RESP 18; TEMP 36.3; O2SAT 96
[2023-11-08 07:00] VITALS: BMI 32.8
[2023-11-08 08:19] LABS: Glucose, Whole Blood 181 mg/dL (60-115)
[2023-11-08] MEDS: Insulin Lispro 100 UNIT/ML 3 ML VIAL SUBCUT ×3 (08:22→16:30)
[2023-11-08] MEDS: Valsartan 80 MG TABLET PO (08:23)
[2023-11-08] MEDS: Metoprolol Succinate ER 25 MG TAB.ER.24H PO (08:23)
[2023-11-08] MEDS: Nitrofurantoin Monohyd/M-Cryst 100 MG CAPSULE PO ×2 (08:23→20:32)
[2023-11-08] MEDS: hydroCHLOROthiazide 12.5 MG TABLET PO (08:23)
[2023-11-08] MEDS: amLODIPine Besylate 10 MG TABLET PO (08:23)
[2023-11-08] MEDS: oxyBUTYnin chloride ER 5 MG TAB.ER.24 10 MG PO (08:23)
[2023-11-08] MEDS: Donepezil HCl 5 MG TABLET PO (08:23)
[2023-11-08] MEDS: QUEtiapine Fumarate 25 MG TABLET 12.5 MG PO ×2 (08:24→17:19)
[2023-11-08] MEDS: Atorvastatin Calcium 80 MG TABLET PO (08:24)
[2023-11-08] MEDS: Lactase TABLET 1 TAB PO ×3 (08:24→16:32)
[2023-11-08] MEDS: Multivitamin TABLET 1 TAB PO (08:24)
[2023-11-08] MEDS: Aspirin Enteric Coated 81 MG TABLET.DR PO (08:24)
[2023-11-08] MEDS: Baclofen 10 MG TABLET PO ×3 (08:24→20:32)
[2023-11-08 08:47] LABS: Alanine Aminotransferase 17 U/L (0-31); Alkaline Phosphatase 65 U/L (39-117); Anion Gap 15 (12-20); Aspartate Amino Transferase 18 U/L (5-31); Bilirubin Total 0.6 mg/dL (0.0-1.0); Blood Urea Nitrogen 16 mg/dL (9-16); Calcium 9.9 mg/dL (8.4-10.2); Carbon Dioxide 27 mmol/L (22-29); Chloride 105 mmol/L (96-108); Cholesterol 140 mg/dL (<200); Creatinine Clr Calc Pharmacy 67.4; Estimated Glomerular Filt Rate > 60; Glucose Fasting 175 mg/dL (60-99); HDL Cholesterol 39 mg/dL (>40); LDL Cholesterol Calculated 76 mg/dL (<100); Magnesium 1.8 mg/dL (1.6-2.6); Potassium 3.9 mmol/L (3.3-5.1); Sodium 143 mmol/L (135-145); Total Protein 7.3 g/dL (6.5-8.0); Triglycerides 126 mg/dL (<150)
[2023-11-08 09:04] LABS: Free T4 (Free Thyroxine) 1.09 ng/dL (0.71-1.85); Thyroid Stimulating Hormone 2.01 uIU/mL (0.32-4.0)
[2023-11-08 09:12] LABS: Folate 7.7 ng/mL (> or = 4.0); Vitamin B12 518 pg/mL (200-900)
--- NOTE | 2023-11-08 11:11 | PM.EVENT ---
Event Note Date of Service: 11/07/23 Event Note: pt seen 11/06 approx 445 pm care eval and other records reviewed spoke with pt adm on sec 12b for safety. Pt refusing meddication and adm made reported threats . Need time to eval safety Time Spent With Patient Time: Total time managing care of this patient today ____ minutes.
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
[2023-11-08 11:29] LABS: Glucose, Whole Blood 285 mg/dL (60-115)
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
[2023-11-08 16:20] LABS: Glucose, Whole Blood 192 mg/dL (60-115)
[2023-11-08 19:41] VITALS: BP 103/55; PULSE 74; RESP 18; TEMP 36.4; O2SAT 95
[2023-11-08 20:18] LABS: Glucose, Whole Blood 261 mg/dL (60-115)
[2023-11-08] MEDS: traZODone HCL 50 MG TABLET PO (20:32)
[2023-11-08] MEDS: QUEtiapine Fumarate 50 MG TABLET PO (20:32)
[2023-11-08] MEDS: Insulin Glargine,Hum.rec.anlog 100 UNIT/ML 10 ML VIAL 30 UNIT SUBCUT (20:32)
[2023-11-08] MEDS: Fluticasone Propionate Nasal 16 GM SPRAY 1 SPRAY NOSTRIL-B (21:05)
[2023-11-09] MEDS: Omeprazole 20 MG CAPSULE.DR PO ×2 (06:06→16:45)
[2023-11-09 06:34] LABS: Glucose, Whole Blood 184 mg/dL (60-115)
[2023-11-09 08:18] VITALS: BP 107/53; PULSE 93; RESP 18; TEMP 36.7; O2SAT 94
[2023-11-09] MEDS: Insulin Lispro 100 UNIT/ML 3 ML VIAL SUBCUT ×3 (08:21→16:44)
[2023-11-09] MEDS: Fluticasone Propionate Nasal 16 GM SPRAY 1 SPRAY NOSTRIL-B ×2 (08:22→21:18)
[2023-11-09] MEDS: Metoprolol Succinate ER 25 MG TAB.ER.24H PO (08:23)
[2023-11-09] MEDS: Valsartan 80 MG TABLET PO (08:23)
[2023-11-09] MEDS: Lactase TABLET 1 TAB PO ×3 (08:23→16:45)
[2023-11-09] MEDS: Baclofen 10 MG TABLET PO ×3 (08:23→21:18)
[2023-11-09] MEDS: amLODIPine Besylate 10 MG TABLET PO (08:23)
[2023-11-09] MEDS: Donepezil HCl 5 MG TABLET PO (08:23)
[2023-11-09] MEDS: QUEtiapine Fumarate 25 MG TABLET 12.5 MG PO ×2 (08:24→16:45)
[2023-11-09] MEDS: Atorvastatin Calcium 80 MG TABLET PO (08:24)
[2023-11-09] MEDS: Nitrofurantoin Monohyd/M-Cryst 100 MG CAPSULE PO ×2 (08:24→21:19)
[2023-11-09] MEDS: Multivitamin TABLET 1 TAB PO (08:24)
[2023-11-09] MEDS: oxyBUTYnin chloride ER 5 MG TAB.ER.24 10 MG PO (08:24)
[2023-11-09] MEDS: hydroCHLOROthiazide 12.5 MG TABLET PO (08:25)
[2023-11-09] MEDS: Aspirin Enteric Coated 81 MG TABLET.DR PO (08:25)
[2023-11-09 11:30] LABS: Glucose, Whole Blood 153 mg/dL (60-115)
--- NOTE | 2023-11-09 13:38 | P.PNPSI_ITS ---
Subjective Subjective Date of Service: 11/09/23 Reason For Visit: agitation threats of harm Interim History: states she didn't sleep well, declines any change in mgmt on that issue. no requests or complaints otherwise aside from she would like to discharge from the hospital. per staff, no issues. UTI appears to have resolved. Mental Status Exam Mental Status Exam Patient Appearance: Appropriate (On hospital gowns) Patient Orientation: Person Level of Consciousness: Awake and Appropriate Patient Behavior: Guarded and Passive Mood Description: Calm Affect Description: Constricted Patient Cognition Impaired: Yes Ability to Follow Directions: Fair Speech Pattern: Clear Hallucinations: None Delusions: Ideas of Reference Thought Process: Slowed Thinking Thought Content: positive for [place], positive for Poverty of Content, positive for Loose Associations and positive for Thought Blocking Judgement: Poor Diagnostics Vital Signs (24Hr): Vital Signs - 24 hr 11/08/23 19:41 11/09/23 08:18 Temperature 97.5 F 98.1 F Pulse Rate 74 93 Respiratory Rate 18 18 Blood Pressure 103/55 L 107/53 L Pulse Oximetry 95 94 Oxygen Delivery Method Room Air Room Air BMI result Body Mass Index 32.8 Labs 11/06/23 16:46 11/08/23 07:58 Labs: Laboratory Results - last 48 hr 11/07/23 11/07/23 11/07/23 12:12 17:33 20:21 Hold Purple Top Sodium Potassium Chloride Carbon Dioxide Anion Gap BUN Creatinine Estim Creat Clear Calc Estimated GFR POC Glucose 232 H 207 H Fasting Glucose Calcium Magnesium Total Bilirubin AST ALT Alkaline Phosphatase C-Reactive Protein 0.27 Total Protein Albumin Triglycerides Cholesterol LDL Cholesterol, Calc HDL Cholesterol Vitamin B12 Folate TSH Free T4 11/08/23 11/08/23 11/08/23 07:58 08:11 11:26 Hold Purple Top SEE NOTE Sodium 143 Potassium 3.9 Chloride 105 Carbon Dioxide 27 Anion Gap 15 BUN 16 Creatinine 0.81 Estim Creat Clear Calc 67.4 Estimated GFR > 60 POC Glucose 181 H 285 H Fasting Glucose 175 H Calcium 9.9 Magnesium 1.8 Total Bilirubin 0.6 AST 18 ALT 17 Alkaline Phosphatase 65 C-Reactive Protein Total Protein 7.3 Albumin 4.0 Triglycerides 126 Cholesterol 140 LDL Cholesterol, Calc 76 HDL Cholesterol 39 L Vitamin B12 518 Folate 7.7 TSH 2.01 Free T4 1.09 11/08/23 11/08/23 11/09/23 16:16 19:56 06:05 Hold Purple Top Sodium Potassium Chloride Carbon Dioxide Anion Gap BUN Creatinine Estim Creat Clear Calc Estimated GFR POC Glucose 192 H 261 H 184 H Fasting Glucose Calcium Magnesium Total Bilirubin AST ALT Alkaline Phosphatase C-Reactive Protein Total Protein Albumin Triglycerides Cholesterol LDL Cholesterol, Calc HDL Cholesterol Vitamin B12 Folate TSH Free T4 11/09/23 11:24 Hold Purple Top Sodium Potassium Chloride Carbon Dioxide Anion Gap BUN Creatinine Estim Creat Clear Calc Estimated GFR POC Glucose 153 H Fasting Glucose Calcium Magnesium Total Bilirubin AST ALT Alkaline Phosphatase C-Reactive Protein Total Protein Albumin Triglycerides Cholesterol LDL Cholesterol, Calc HDL Cholesterol Vitamin B12 Folate TSH Free T4 Medications Medications Current Medications Acetaminophen (Acetaminophen 325 Mg Tablet) 650 mg PO Q6H PRN PRN Reason: Headache/Pain Mild Scale (1-3) Al Hydroxide/Mg Hydroxide (Magnesium Hydrox/Alum Hydrox 30 Ml Oral.Susp) 30 ml PO Q6H PRN PRN Reason: Heartburn/Nausea Amlodipine Besylate (Amlodipine Besylate 10 Mg Tablet) 10 mg PO DAILY [facility]; Protocol Last Admin: 11/09/23 08:23 Dose: 10 mg Aspirin (Aspirin Enteric Coated 81 Mg Tablet.) 81 mg PO DAILY [facility] Last Admin: 11/09/23 08:25 Dose: 81 mg Atorvastatin Calcium (Atorvastatin Calcium 80 Mg Tablet) 80 mg PO DAILY [facility] Last Admin: 11/09/23 08:24 Dose: 80 mg Baclofen (Baclofen 10 Mg Tablet) 10 mg PO TID [facility] Last Admin: 11/09/23 08:23 Dose: 10 mg Donepezil HCl (Donepezil Hcl 5 Mg Tablet) 5 mg PO DAILY [facility] Last Admin: 11/09/23 08:23 Dose: 5 mg Fluticasone Propionate (Fluticasone Propionate Nasal 16 Gm [place]) 1 spray NOSTRIL-B BID [facility] Last Admin: 11/09/23 08:22 Dose: 1 spray Hydrochlorothiazide (Hydrochlorothiazide 12.5 Mg Tablet) 12.5 mg PO DAILY [facility]; Protocol Last Admin: 11/09/23 08:25 Dose: 12.5 mg Hydroxyzine HCl (Hydroxyzine Hcl 25 Mg Tablet) 25 mg PO Q6H PRN PRN Reason: Anxiety Insulin Glargine (Insulin Glargine,Hum.Rec.Anlog 100 Unit/Ml 10 Ml Vial) 30 unit SUBCUT BEDTIME [facility] Last Admin: 11/08/23 20:32 Dose: 30 unit Insulin Human Lispro (Insulin Lispro 100 Unit/Ml 3 Ml Vial) 0 unit SUBCUT TIDAC [facility]; Protocol Last Admin: 11/09/23 11:49 Dose: 2 unit Lactase (Lactase Tablet) 1 tab PO TIDWM [facility] Last Admin: 11/09/23 11:48 Dose: 1 tab Magnesium Hydroxide (Milk Of Magnesia 30 Ml Oral.Susp) 30 ml PO DAILY PRN PRN Reason: Constipation Metoprolol Succinate (Metoprolol Succinate Er 25 Mg Tab.Er.24h) 25 mg PO DAILY [facility]; Protocol Last Admin: 11/09/23 08:23 Dose: 25 mg Multivitamins/Vitamin C (Multivitamin Tablet) 1 tab PO DAILY [facility] Last Admin: 11/09/23 08:24 Dose: 1 tab Naproxen (Naproxen 250 Mg Tablet) 250 mg PO BID PRN PRN Reason: back pain Nitrofurantoin Macrocrystals (Nitrofurantoin Monohyd/M-Cryst 100 Mg Capsule) 100 mg PO BID [facility] Stop: 11/11/23 21:00 Last Admin: 11/09/23 08:24 Dose: 100 mg Non-Formulary Medication (Alogliptin) 6.25 mg PO DAILY [facility] Omeprazole (Omeprazole 20 Mg Capsule.Dr) 20 mg PO BID@0630,1630 [facility] Last Admin: 11/09/23 06:06 Dose: 20 mg Oxybutynin Chloride (Oxybutynin Chloride Er 5 Mg Tab.Er.24) 10 mg PO DAILY [facility] Last Admin: 11/09/23 08:24 Dose: 10 mg Potassium Chloride (Potassium Chloride Packet 20 Meq Packet) 20 meq PO ONCE [facility] Last Admin: 11/06/23 22:30 Dose: 20 meq Quetiapine Fumarate (Quetiapine Fumarate 25 Mg Tablet) 12.5 mg PO BID@0900,1700 [facility] Last Admin: 11/09/23 08:24 Dose: 12.5 mg Quetiapine Fumarate (Quetiapine Fumarate 50 Mg Tablet) 50 mg PO BEDTIME [facility] Last Admin: 11/08/23 20:32 Dose: 50 mg Trazodone HCl (Trazodone Hcl 50 Mg Tablet) 50 mg PO BEDTIME MRX1 PRN PRN Reason: Insomnia Last Admin: 11/08/23 20:32 Dose: 50 mg Valsartan (Valsartan 80 Mg Tablet) 80 mg PO DAILY [facility]; Protocol Last Admin: 11/09/23 08:23 Dose: 80 mg Allergies Allergies Allergy/AdvReac Type Severity Reaction Status Date / Time Sulfa (Sulfonamide Allergy Severe DIFFICULTY Verified 09/18/23 21:02 Antibiotics) BREATHING [SULFA (SULFONAMIDE ANTIBIOTICS)] cephalexin [From KEFLEX] Allergy Intermediate RASH,HIVES Verified 09/18/23 21:02 amoxicillin [AMOXICILLIN] Allergy Unknown DENIES Verified 09/18/23 21:02 THIS ALLERGY 03/28/2018 penicillin V Allergy Unknown Unknown Verified 09/18/23 21:02 sumatriptan [From IMITREX] AdvReac Severe HEART Verified 09/18/23 21:02 PALPITATIONS topiramate [From TOPAMAX] AdvReac Severe AGITATION Verified 09/18/23 21:02 Assessment & Plan Assessment & Plan (1) Acute UTI: Status: Acute Code(s): N39.0 - Urinary tract infection, site not specified (2) Acute hypokalemia: Status: Acute Code(s): E87.6 - Hypokalemia (3) Dementia: Qualifiers: Dementia behavioral or psychological symptom: with agitation Dementia severity: moderate Dementia type: Lewy body dementia Qualified Code(s): G31.83 - Neurocognitive disorder with Lewy bodies; F02.B11 - Dementia in other diseases classified elsewhere, moderate, with agitation Status: Acute Code(s): F03.90 - Unspecified dementia, unspecified severity, without behavioral disturbance, psychotic disturbance, mood disturbance, and anxiety (4) Delirium: Status: Acute Code(s): R41.0 - Disorientation, unspecified Plan The patient is a 67-year-old female , with a past history of dementia with prior admissions into the hospital for psychosis and agitation transfer from the group home facility to the crisis team due to agitation. She tried to run away and she was brought by the police department to the emergency room. While she was in the ED a UTI was diagnosed and she had been treated since then. The patient is a very poor historian, confused but easily redirectable. Plan 1. Gather collateral information. The patient is a very poor historian unable to provide details. We will try to contact her family and find out details of the admission. 2. Continue with medical treatment. 3. Continue with antibiotics. 4. 15 minutes checks since the patient had been able to contract for safety. 5. Reassessment with results. 11/08: appears more linear and settled than earlier in her stay. continue current mgmt. requesting discharge. Reason for continued inpatient stay Substantial Risk for: inability to function and rapid decompensation Time Spent With Patient Time: Total time managing care of this patient today ____ minutes.
[2023-11-09 16:31] LABS: Glucose, Whole Blood 177 mg/dL (60-115)
[2023-11-09] MEDS: Loratadine 10 MG TABLET PO (16:45)
[2023-11-09 18:00] VITALS: BP 115/58; PULSE 75; RESP 18; TEMP 35.8; O2SAT 98
[2023-11-09 20:02] LABS: Glucose, Whole Blood 194 mg/dL (60-115)
[2023-11-09] MEDS: Insulin Glargine,Hum.rec.anlog 100 UNIT/ML 10 ML VIAL 30 UNIT SUBCUT (21:18)
[2023-11-09] MEDS: traZODone HCL 50 MG TABLET PO (21:19)
[2023-11-09] MEDS: QUEtiapine Fumarate 50 MG TABLET PO (21:19)
[2023-11-10 06:00] VITALS: BP 133/58; PULSE 86; RESP 16; TEMP 36.2; O2SAT 98
[2023-11-10] MEDS: Omeprazole 20 MG CAPSULE.DR PO ×2 (06:25→16:43)
[2023-11-10 07:12] LABS: Glucose, Whole Blood 188 mg/dL (60-115)
[2023-11-10] MEDS: amLODIPine Besylate 10 MG TABLET PO (09:34)
[2023-11-10] MEDS: hydroCHLOROthiazide 12.5 MG TABLET PO (09:34)
[2023-11-10] MEDS: Atorvastatin Calcium 80 MG TABLET PO (09:34)
[2023-11-10] MEDS: QUEtiapine Fumarate 25 MG TABLET 12.5 MG PO (09:34)
[2023-11-10] MEDS: Aspirin Enteric Coated 81 MG TABLET.DR PO (09:34)
[2023-11-10] MEDS: Lactase TABLET 1 TAB PO ×3 (09:34→16:43)
[2023-11-10] MEDS: Metoprolol Succinate ER 25 MG TAB.ER.24H PO (09:34)
[2023-11-10] MEDS: Multivitamin TABLET 1 TAB PO (09:35)
[2023-11-10] MEDS: Baclofen 10 MG TABLET PO ×3 (09:35→21:18)
[2023-11-10] MEDS: Donepezil HCl 5 MG TABLET PO (09:36)
[2023-11-10] MEDS: oxyBUTYnin chloride ER 5 MG TAB.ER.24 10 MG PO (09:36)
[2023-11-10] MEDS: Valsartan 80 MG TABLET PO (09:36)
[2023-11-10] MEDS: Nitrofurantoin Monohyd/M-Cryst 100 MG CAPSULE PO ×2 (09:36→21:18)
--- NOTE | 2023-11-10 10:49 | P.PNPSI_ITS ---
Subjective Subjective Date of Service: 11/10/23 Reason For Visit: agitation threats of harm Subjective Notes: Section 12B Interim History: met with patient. Discussed with Nursing. No significant management issues. With staff writer pleasant, but has clear evidence of cognitive impairment. Reports feeling safe here. Reports sleeping okay last night. Did show preoccupation regarding her stating he took a knife away from her. Reports that she will go and stay with her sister in [place] and that her nephew will pick her up while he is driving his truck. Regarding orientation in time, reports that this sometime close to [place]. Was not agitated with reorientation to November Medication Compliance: Yes Side effects from medications: No Attending Groups: Intermittent Review of Systems Acute medical concerns: No Review of Systems Review of Systems nothing acute Mental Status Exam Mental Status Exam Narrative: hospital clothing. Self-care fair. Clear cognitive impairment consistent with establish dementia. There is some paranoia when talking about family for/. No evidence of SI or HI. Diagnostics Vital Signs (24Hr): Vital Signs - 24 hr 11/09/23 18:00 11/10/23 06:00 Temperature 96.4 F L 97.1 F Pulse Rate 75 86 Respiratory Rate 18 16 Blood Pressure 115/58 L 133/58 L Pulse Oximetry 98 98 Oxygen Delivery Method Room Air Room Air BMI result Body Mass Index 32.8 Labs 11/06/23 16:46 11/08/23 07:58 Labs: Laboratory Results - last 48 hr 11/08/23 11/08/23 11/08/23 11:26 16:16 19:56 POC Glucose 285 H 192 H 261 H 11/09/23 11/09/23 11/09/23 06:05 11:24 16:16 POC Glucose 184 H 153 H 177 H 11/09/23 11/10/23 19:58 06:24 POC Glucose 194 H 188 H Medications Medications Current Medications Acetaminophen (Acetaminophen 325 Mg Tablet) 650 mg PO Q6H PRN PRN Reason: Headache/Pain Mild Scale (1-3) Al Hydroxide/Mg Hydroxide (Magnesium Hydrox/Alum Hydrox 30 Ml Oral.Susp) 30 ml PO Q6H PRN PRN Reason: Heartburn/Nausea Amlodipine Besylate (Amlodipine Besylate 10 Mg Tablet) 10 mg PO DAILY [facility]; Protocol Last Admin: 11/10/23 09:34 Dose: 10 mg Aspirin (Aspirin Enteric Coated 81 Mg Tablet.Dr) 81 mg PO DAILY [facility] Last Admin: 11/10/23 09:34 Dose: 81 mg Atorvastatin Calcium (Atorvastatin Calcium 80 Mg Tablet) 80 mg PO DAILY [facility] Last Admin: 11/10/23 09:34 Dose: 80 mg Baclofen (Baclofen 10 Mg Tablet) 10 mg PO TID [facility] Last Admin: 11/10/23 09:35 Dose: 10 mg Donepezil HCl (Donepezil Hcl 5 Mg Tablet) 5 mg PO DAILY [facility] Last Admin: 11/10/23 09:36 Dose: 5 mg Fluticasone Propionate (Fluticasone Propionate Nasal 16 Gm [place]) 1 spray NOSTRIL-B BID [facility] Last Admin: 11/10/23 09:40 Dose: Not Given Hydrochlorothiazide (Hydrochlorothiazide 12.5 Mg Tablet) 12.5 mg PO DAILY [facility]; Protocol Last Admin: 11/10/23 09:34 Dose: 12.5 mg Hydroxyzine HCl (Hydroxyzine Hcl 25 Mg Tablet) 25 mg PO Q6H PRN PRN Reason: Anxiety Insulin Glargine (Insulin Glargine,Hum.Rec.Anlog 100 Unit/Ml 10 Ml Vial) 30 unit SUBCUT BEDTIME [facility] Last Admin: 11/09/23 21:18 Dose: 30 unit Insulin Human Lispro (Insulin Lispro 100 Unit/Ml 3 Ml Vial) 0 unit SUBCUT TIDAC [facility]; Protocol Last Admin: 11/10/23 08:55 Dose: Not Given Lactase (Lactase Tablet) 1 tab PO TIDWM [facility] Last Admin: 11/10/23 09:34 Dose: 1 tab Loratadine (Loratadine 10 Mg Tablet) 10 mg PO DAILY PRN PRN Reason: allergies Last Admin: 11/09/23 16:45 Dose: 10 mg Magnesium Hydroxide (Milk Of Magnesia 30 Ml Oral.Susp) 30 ml PO DAILY PRN PRN Reason: Constipation Metoprolol Succinate (Metoprolol Succinate Er 25 Mg Tab.Er.24h) 25 mg PO DAILY [facility]; Protocol Last Admin: 11/10/23 09:34 Dose: 25 mg Multivitamins/Vitamin C (Multivitamin Tablet) 1 tab PO DAILY [facility] Last Admin: 11/10/23 09:35 Dose: 1 tab Naproxen (Naproxen 250 Mg Tablet) 250 mg PO BID PRN PRN Reason: back pain Nitrofurantoin Macrocrystals (Nitrofurantoin Monohyd/M-Cryst 100 Mg Capsule) 100 mg PO BID [facility] Stop: 11/11/23 21:00 Last Admin: 11/10/23 09:36 Dose: 100 mg Non-Formulary Medication (Alogliptin) 6.25 mg PO DAILY [facility] Omeprazole (Omeprazole 20 Mg Capsule.Dr) 20 mg PO BID@0630,1630 [facility] Last Admin: 11/10/23 06:25 Dose: 20 mg Oxybutynin Chloride (Oxybutynin Chloride Er 5 Mg Tab.Er.24) 10 mg PO DAILY [facility] Last Admin: 11/10/23 09:36 Dose: 10 mg Potassium Chloride (Potassium Chloride Packet 20 Meq Packet) 20 meq PO ONCE [facility] Last Admin: 11/06/23 22:30 Dose: 20 meq Quetiapine Fumarate (Quetiapine Fumarate 25 Mg Tablet) 12.5 mg PO BID@0900,1700 [facility] Last Admin: 11/10/23 09:34 Dose: 12.5 mg Quetiapine Fumarate (Quetiapine Fumarate 50 Mg Tablet) 50 mg PO BEDTIME [facility] Last Admin: 11/09/23 21:19 Dose: 50 mg Trazodone HCl (Trazodone Hcl 50 Mg Tablet) 50 mg PO BEDTIME MRX1 PRN PRN Reason: Insomnia Last Admin: 11/09/23 21:19 Dose: 50 mg Valsartan (Valsartan 80 Mg Tablet) 80 mg PO DAILY [facility]; Protocol Last Admin: 11/10/23 09:36 Dose: 80 mg Allergies Allergies Allergy/AdvReac Type Severity Reaction Status Date / Time Sulfa (Sulfonamide Allergy Severe DIFFICULTY Verified 09/18/23 21:02 Antibiotics) BREATHING [SULFA (SULFONAMIDE ANTIBIOTICS)] cephalexin [From KEFLEX] Allergy Intermediate RASH,HIVES Verified 09/18/23 21:02 amoxicillin [AMOXICILLIN] Allergy Unknown DENIES Verified 09/18/23 21:02 THIS ALLERGY 03/28/2018 penicillin V Allergy Unknown Unknown Verified 09/18/23 21:02 sumatriptan [From IMITREX] AdvReac Severe HEART Verified 09/18/23 21:02 PALPITATIONS topiramate [From TOPAMAX] AdvReac Severe AGITATION Verified 09/18/23 21:02 Assessment & Plan Assessment & Plan (1) Acute UTI: Status: Acute Code(s): N39.0 - Urinary tract infection, site not specified (2) Acute hypokalemia: Status: Acute Code(s): E87.6 - Hypokalemia (3) Dementia: Qualifiers: Dementia behavioral or psychological symptom: with agitation Dementia severity: moderate Dementia type: Lewy body dementia Qualified Code(s): G31.83 - Neurocognitive disorder with Lewy bodies; F02.B11 - Dementia in other diseases classified elsewhere, moderate, with agitation Status: Acute Code(s): F03.90 - Unspecified dementia, unspecified severity, without behavioral disturbance, psychotic disturbance, mood disturbance, and anxiety (4) Delirium: Status: Acute Code(s): R41.0 - Disorientation, unspecified Plan The patient is a 67-year-old female , with a past history of dementia with prior admissions into the hospital for psychosis and agitation transfer from the residential facility to the crisis team due to agitation. She tried to run away and she was brought by the police department to the emergency room. While she was in the ED a UTI was diagnosed and she had been treated since then. The patient is a very poor historian, confused but easily redirectable. Plan 1. Gather collateral information. The patient is a very poor historian unable to provide details. We will try to contact her family and find out details of the admission. 2. Continue with medical treatment. 3. Continue with antibiotics. 4. 15 minutes checks since the patient had been able to contract for safety. 5. Reassessment with results. 11/08: appears more linear and settled than earlier in her stay. continue current mgmt. requesting discharge. 11/10/2023: No changes to current treatment plan. Reason for continued inpatient stay Substantial Risk for: inability to function Time Spent With Patient Time: Total time managing care of this patient today ____ minutes.
[2023-11-10 11:22] LABS: Glucose, Whole Blood 230 mg/dL (60-115)
[2023-11-10] MEDS: Insulin Lispro 100 UNIT/ML 3 ML VIAL SUBCUT ×2 (11:36→16:43)
[2023-11-10] MEDS: Loratadine 10 MG TABLET PO (15:58)
[2023-11-10 16:43] LABS: Glucose, Whole Blood 239 mg/dL (60-115)
[2023-11-10 18:00] VITALS: BP 116/57; PULSE 74; RESP 17; TEMP 36.4; O2SAT 95
[2023-11-10 19:53] LABS: Glucose, Whole Blood 200 mg/dL (60-115)
[2023-11-10] MEDS: traZODone HCL 50 MG TABLET PO (21:17)
[2023-11-10] MEDS: QUEtiapine Fumarate 50 MG TABLET PO (21:18)
[2023-11-10] MEDS: Fluticasone Propionate Nasal 16 GM SPRAY 1 SPRAY NOSTRIL-B (21:18)
[2023-11-10] MEDS: Insulin Glargine,Hum.rec.anlog 100 UNIT/ML 10 ML VIAL 30 UNIT SUBCUT (21:19)
[2023-11-11] MEDS: Omeprazole 20 MG CAPSULE.DR PO ×2 (05:55→16:37)
[2023-11-11 06:40] LABS: Glucose, Whole Blood 184 mg/dL (60-115)
[2023-11-11 07:30] VITALS: BP 127/59; PULSE 96; RESP 16; TEMP 36.7; O2SAT 97
[2023-11-11] MEDS: oxyBUTYnin chloride ER 5 MG TAB.ER.24 10 MG PO (08:01)
[2023-11-11] MEDS: amLODIPine Besylate 10 MG TABLET PO (08:01)
[2023-11-11] MEDS: Insulin Lispro 100 UNIT/ML 3 ML VIAL SUBCUT ×2 (08:01→16:36)
[2023-11-11] MEDS: Nitrofurantoin Monohyd/M-Cryst 100 MG CAPSULE PO ×2 (08:01→21:28)
[2023-11-11] MEDS: Baclofen 10 MG TABLET PO ×3 (08:02→21:28)
[2023-11-11] MEDS: QUEtiapine Fumarate 25 MG TABLET 12.5 MG PO ×2 (08:02→16:37)
[2023-11-11] MEDS: Donepezil HCl 5 MG TABLET PO (08:03)
[2023-11-11] MEDS: Valsartan 80 MG TABLET PO (08:03)
[2023-11-11] MEDS: Atorvastatin Calcium 80 MG TABLET PO (08:03)
[2023-11-11] MEDS: Aspirin Enteric Coated 81 MG TABLET.DR PO (08:03)
[2023-11-11] MEDS: Fluticasone Propionate Nasal 16 GM SPRAY 1 SPRAY NOSTRIL-B ×2 (08:05→21:31)
[2023-11-11] MEDS: Lactase TABLET 1 TAB PO ×3 (08:12→16:37)
[2023-11-11] MEDS: hydroCHLOROthiazide 12.5 MG TABLET PO (08:12)
[2023-11-11] MEDS: Multivitamin TABLET 1 TAB PO (08:12)
[2023-11-11 11:35] LABS: Glucose, Whole Blood 140 mg/dL (60-115)
--- NOTE | 2023-11-11 14:07 | HO.PSYCHPN ---
Subjective Subjective Date of Service: 11/11/23 Reason For Visit: agitation threats of harm Subjective Notes: Section 12B Interim History: Met with patient. Discussed with Nursing. No significant management issues. Pleasant but clear cog impairment and preoccupation ref discharge planning and inability to appreciate complexities ref same. Reports feeling safe here. Denied depression. Reports sleeping okay last night but that staff are loud at nights. Medication Compliance: Yes Side effects from medications: No Attending Groups: No Review of Systems Acute medical concerns: No Review of Systems Review of Systems nothing acute Mental Status Exam Mental Status Exam Narrative: hospital clothing. Self-care fair. Clear cognitive impairment consistent with establish dementia. There is some paranoia when talking about family for/. No evidence of SI or HI. Diagnostics Vital Signs (24Hr): Vital Signs - 24 hr 11/10/23 18:00 11/11/23 07:30 Temperature 97.5 F 98.1 F Pulse Rate 74 96 Respiratory Rate 17 16 Blood Pressure 116/57 L 127/59 L Pulse Oximetry 95 97 Oxygen Delivery Method Room Air Room Air BMI result Body Mass Index 32.8 Labs 11/06/23 16:46 11/08/23 07:58 Labs: Laboratory Results - last 48 hr 11/09/23 11/09/23 11/10/23 16:16 19:58 06:24 POC Glucose 177 H 194 H 188 H 11/10/23 11/10/23 11/10/23 11:18 16:38 19:33 POC Glucose 230 H 239 H 200 H 11/11/23 11/11/23 06:27 11:28 POC Glucose 184 H 140 H Medications Medications Current Medications Acetaminophen (Acetaminophen 325 Mg Tablet) 650 mg PO Q6H PRN PRN Reason: Headache/Pain Mild Scale (1-3) Al Hydroxide/Mg Hydroxide (Magnesium Hydrox/Alum Hydrox 30 Ml Oral.Susp) 30 ml PO Q6H PRN PRN Reason: Heartburn/Nausea Amlodipine Besylate (Amlodipine Besylate 10 Mg Tablet) 10 mg PO DAILY [facility]; Protocol Last Admin: 11/11/23 08:01 Dose: 10 mg Aspirin (Aspirin Enteric Coated 81 Mg Tablet.) 81 mg PO DAILY [facility] Last Admin: 11/11/23 08:03 Dose: 81 mg Atorvastatin Calcium (Atorvastatin Calcium 80 Mg Tablet) 80 mg PO DAILY [facility] Last Admin: 11/11/23 08:03 Dose: 80 mg Baclofen (Baclofen 10 Mg Tablet) 10 mg PO TID [facility] Last Admin: 11/11/23 08:02 Dose: 10 mg Donepezil HCl (Donepezil Hcl 5 Mg Tablet) 5 mg PO DAILY [facility] Last Admin: 11/11/23 08:03 Dose: 5 mg Fluticasone Propionate (Fluticasone Propionate Nasal 16 Gm [place]) 1 spray NOSTRIL-B BID [facility] Last Admin: 11/11/23 08:05 Dose: 1 spray Hydrochlorothiazide (Hydrochlorothiazide 12.5 Mg Tablet) 12.5 mg PO DAILY [facility]; Protocol Last Admin: 11/11/23 08:12 Dose: 12.5 mg Hydroxyzine HCl (Hydroxyzine Hcl 25 Mg Tablet) 25 mg PO Q6H PRN PRN Reason: Anxiety Insulin Glargine (Insulin Glargine,Hum.Rec.Anlog 100 Unit/Ml 10 Ml Vial) 30 unit SUBCUT BEDTIME [facility] Last Admin: 11/10/23 21:19 Dose: 30 unit Insulin Human Lispro (Insulin Lispro 100 Unit/Ml 3 Ml Vial) 0 unit SUBCUT TIDAC [facility]; Protocol Last Admin: 11/11/23 11:41 Dose: Not Given Lactase (Lactase Tablet) 1 tab PO TIDWM [facility] Last Admin: 11/11/23 11:42 Dose: 1 tab Loratadine (Loratadine 10 Mg Tablet) 10 mg PO DAILY PRN PRN Reason: allergies Last Admin: 11/10/23 15:58 Dose: 10 mg Magnesium Hydroxide (Milk Of Magnesia 30 Ml Oral.Susp) 30 ml PO DAILY PRN PRN Reason: Constipation Metoprolol Succinate (Metoprolol Succinate Er 25 Mg Tab.Er.24h) 25 mg PO DAILY [facility]; Protocol Last Admin: 11/11/23 08:02 Dose: Not Given Multivitamins/Vitamin C (Multivitamin Tablet) 1 tab PO DAILY [facility] Last Admin: 11/11/23 08:12 Dose: 1 tab Naproxen (Naproxen 250 Mg Tablet) 250 mg PO BID PRN PRN Reason: back pain Nitrofurantoin Macrocrystals (Nitrofurantoin Monohyd/M-Cryst 100 Mg Capsule) 100 mg PO BID [facility] Stop: 11/11/23 21:00 Last Admin: 11/11/23 08:01 Dose: 100 mg Non-Formulary Medication (Alogliptin) 6.25 mg PO DAILY [facility] Omeprazole (Omeprazole 20 Mg Capsule.Dr) 20 mg PO BID@0630,1630 [facility] Last Admin: 11/11/23 05:55 Dose: 20 mg Oxybutynin Chloride (Oxybutynin Chloride Er 5 Mg Tab.Er.24) 10 mg PO DAILY [facility] Last Admin: 11/11/23 08:01 Dose: 10 mg Potassium Chloride (Potassium Chloride Packet 20 Meq Packet) 20 meq PO ONCE [facility] Last Admin: 11/06/23 22:30 Dose: 20 meq Quetiapine Fumarate (Quetiapine Fumarate 25 Mg Tablet) 12.5 mg PO BID@0900,1700 [facility] Last Admin: 11/11/23 08:02 Dose: 12.5 mg Quetiapine Fumarate (Quetiapine Fumarate 50 Mg Tablet) 50 mg PO BEDTIME [facility] Last Admin: 11/10/23 21:18 Dose: 50 mg Trazodone HCl (Trazodone Hcl 50 Mg Tablet) 50 mg PO BEDTIME MRX1 PRN PRN Reason: Insomnia Last Admin: 11/10/23 21:17 Dose: 50 mg Valsartan (Valsartan 80 Mg Tablet) 80 mg PO DAILY [facility]; Protocol Last Admin: 11/11/23 08:03 Dose: 80 mg Allergies Allergies Allergy/AdvReac Type Severity Reaction Status Date / Time Sulfa (Sulfonamide Allergy Severe DIFFICULTY Verified 09/18/23 21:02 Antibiotics) BREATHING [SULFA (SULFONAMIDE ANTIBIOTICS)] cephalexin [From KEFLEX] Allergy Intermediate RASH,HIVES Verified 09/18/23 21:02 amoxicillin [AMOXICILLIN] Allergy Unknown DENIES Verified 09/18/23 21:02 THIS ALLERGY 03/28/2018 penicillin V Allergy Unknown Unknown Verified 09/18/23 21:02 sumatriptan [From IMITREX] AdvReac Severe HEART Verified 09/18/23 21:02 PALPITATIONS topiramate [From TOPAMAX] AdvReac Severe AGITATION Verified 09/18/23 21:02 Assessment & Plan Assessment & Plan (1) Acute UTI: Status: Acute Code(s): N39.0 - Urinary tract infection, site not specified (2) Acute hypokalemia: Status: Acute Code(s): E87.6 - Hypokalemia (3) Dementia: Qualifiers: Dementia behavioral or psychological symptom: with agitation Dementia severity: moderate Dementia type: Lewy body dementia Qualified Code(s): G31.83 - Neurocognitive disorder with Lewy bodies; F02.B11 - Dementia in other diseases classified elsewhere, moderate, with agitation Status: Acute Code(s): F03.90 - Unspecified dementia, unspecified severity, without behavioral disturbance, psychotic disturbance, mood disturbance, and anxiety (4) Delirium: Status: Acute Code(s): R41.0 - Disorientation, unspecified Plan The patient is a 67-year-old female , with a past history of dementia with prior admissions into the hospital for psychosis and agitation transfer from the [facility] facility to the crisis team due to agitation. She tried to run away and she was brought by the police department to the emergency room. While she was in the ED a UTI was diagnosed and she had been treated since then. The patient is a very poor historian, confused but easily redirectable. Plan 1. Gather collateral information. The patient is a very poor historian unable to provide details. We will try to contact her family and find out details of the admission. 2. Continue with medical treatment. 3. Continue with antibiotics. 4. 15 minutes checks since the patient had been able to contract for safety. 5. Reassessment with results. 11/08: appears more linear and settled than earlier in her stay. continue current mgmt. requesting discharge. 11/11/2023: No changes to current treatment plan. Reason for continued inpatient stay Substantial Risk for: inability to function and rapid decompensation Time Spent With Patient Time: Total time managing care of this patient today ____ minutes.
[2023-11-11] MEDS: Loratadine 10 MG TABLET PO (15:19)
[2023-11-11 16:22] LABS: Glucose, Whole Blood 181 mg/dL (60-115)
[2023-11-11] MEDS: Acetaminophen 325 MG TABLET 650 MG PO (16:36)
[2023-11-11 19:35] VITALS: BP 110/62; PULSE 82; RESP 16; TEMP 36.3; O2SAT 97
[2023-11-11] MEDS: QUEtiapine Fumarate 50 MG TABLET PO (21:28)
[2023-11-11] MEDS: Insulin Glargine,Hum.rec.anlog 100 UNIT/ML 10 ML VIAL 30 UNIT SUBCUT (21:32)
[2023-11-11 21:34] LABS: Glucose, Whole Blood 287 mg/dL (60-115)
[2023-11-12] MEDS: Omeprazole 20 MG CAPSULE.DR PO ×2 (06:51→17:25)
[2023-11-12 07:12] LABS: Glucose, Whole Blood 173 mg/dL (60-115)
[2023-11-12 08:19] VITALS: BP 114/58; PULSE 95; RESP 16; TEMP 36.2; O2SAT 97
[2023-11-12] MEDS: Atorvastatin Calcium 80 MG TABLET PO (08:22)
[2023-11-12] MEDS: Lactase TABLET 1 TAB PO ×3 (08:22→17:25)
[2023-11-12] MEDS: Fluticasone Propionate Nasal 16 GM SPRAY 1 SPRAY NOSTRIL-B ×2 (08:22→21:14)
[2023-11-12] MEDS: hydroCHLOROthiazide 12.5 MG TABLET PO (08:22)
[2023-11-12] MEDS: Multivitamin TABLET 1 TAB PO (08:22)
[2023-11-12] MEDS: Valsartan 80 MG TABLET PO (08:22)
[2023-11-12] MEDS: oxyBUTYnin chloride ER 5 MG TAB.ER.24 10 MG PO (08:22)
[2023-11-12] MEDS: amLODIPine Besylate 10 MG TABLET PO (08:22)
[2023-11-12] MEDS: Metoprolol Succinate ER 25 MG TAB.ER.24H PO (08:23)
[2023-11-12] MEDS: Donepezil HCl 5 MG TABLET PO (08:23)
[2023-11-12] MEDS: Baclofen 10 MG TABLET PO ×3 (08:23→21:16)
[2023-11-12] MEDS: Aspirin Enteric Coated 81 MG TABLET.DR PO (08:23)
[2023-11-12] MEDS: QUEtiapine Fumarate 25 MG TABLET 12.5 MG PO ×2 (08:23→17:24)
[2023-11-12] MEDS: Insulin Lispro 100 UNIT/ML 3 ML VIAL SUBCUT ×3 (08:29→17:25)
--- NOTE | 2023-11-12 09:08 | HO.PSYCHPN ---
Subjective Subjective Date of Service: 11/12/23 Reason For Visit: agitation threats of harm Subjective Notes: Section 12B Interim History: Pt insisting that she has to go. She reports she will go to [place] with her sister, who has expressed to the team can't take care of her. She is not able to return to the 's home due to existing (as far as aware) restraining order. Pt with cognitive impairments that affect her ability to secure safe housing. She also has significant impairment in terms of ability to retain new information. She lacks insight as to how her behaviors are concerning. Review of Systems Review of Systems nothing acute Yes all other systems are reviewed and are negative Mental Status Exam Mental Status Exam Patient Appearance: Appropriate (On hospital gowns) Patient Orientation: Person Level of Consciousness: Awake and Appropriate Patient Behavior: Guarded and Passive Mood Description: Calm Affect Description: Constricted Patient Cognition Impaired: Yes Ability to Follow Directions: Fair Speech Pattern: Clear Diagnostics Vital Signs (24Hr): Vital Signs - 24 hr 11/11/23 19:35 11/12/23 08:19 Temperature 97.4 F 97.1 F Pulse Rate 82 95 Respiratory Rate 16 16 Blood Pressure 110/62 114/58 L Pulse Oximetry 97 97 Oxygen Delivery Method Room Air Room Air BMI result Body Mass Index 32.8 Labs 11/06/23 16:46 11/08/23 07:58 Labs: Laboratory Results - last 48 hr 11/10/23 11/10/23 11/10/23 11:18 16:38 19:33 POC Glucose 230 H 239 H 200 H 11/11/23 11/11/23 11/11/23 06:27 11:28 16:15 POC Glucose 184 H 140 H 181 H 11/11/23 11/12/23 21:25 06:53 POC Glucose 287 H 173 H Medications Medications Current Medications Acetaminophen (Acetaminophen 325 Mg Tablet) 650 mg PO Q6H PRN PRN Reason: Headache/Pain Mild Scale (1-3) Last Admin: 11/11/23 16:36 Dose: 650 mg Al Hydroxide/Mg Hydroxide (Magnesium Hydrox/Alum Hydrox 30 Ml Oral.Susp) 30 ml PO Q6H PRN PRN Reason: Heartburn/Nausea Amlodipine Besylate (Amlodipine Besylate 10 Mg Tablet) 10 mg PO DAILY [facility]; Protocol Last Admin: 11/12/23 08:22 Dose: 10 mg Aspirin (Aspirin Enteric Coated 81 Mg Tablet.Dr) 81 mg PO DAILY [facility] Last Admin: 11/12/23 08:23 Dose: 81 mg Atorvastatin Calcium (Atorvastatin Calcium 80 Mg Tablet) 80 mg PO DAILY [facility] Last Admin: 11/12/23 08:22 Dose: 80 mg Baclofen (Baclofen 10 Mg Tablet) 10 mg PO TID [facility] Last Admin: 11/12/23 08:23 Dose: 10 mg Donepezil HCl (Donepezil Hcl 5 Mg Tablet) 5 mg PO DAILY [facility] Last Admin: 11/12/23 08:23 Dose: 5 mg Fluticasone Propionate (Fluticasone Propionate Nasal 16 Gm [place]) 1 spray NOSTRIL-B BID [facility] Last Admin: 11/12/23 08:22 Dose: 1 spray Hydrochlorothiazide (Hydrochlorothiazide 12.5 Mg Tablet) 12.5 mg PO DAILY [facility]; Protocol Last Admin: 11/12/23 08:22 Dose: 12.5 mg Hydroxyzine HCl (Hydroxyzine Hcl 25 Mg Tablet) 25 mg PO Q6H PRN PRN Reason: Anxiety Insulin Glargine (Insulin Glargine,Hum.Rec.Anlog 100 Unit/Ml 10 Ml Vial) 30 unit SUBCUT BEDTIME [facility] Last Admin: 11/11/23 21:32 Dose: 30 unit Insulin Human Lispro (Insulin Lispro 100 Unit/Ml 3 Ml Vial) 0 unit SUBCUT TIDAC [facility]; Protocol Last Admin: 11/12/23 08:29 Dose: 2 unit Lactase (Lactase Tablet) 1 tab PO TIDWM [facility] Last Admin: 11/12/23 08:22 Dose: 1 tab Loratadine (Loratadine 10 Mg Tablet) 10 mg PO DAILY PRN PRN Reason: allergies Last Admin: 11/11/23 15:19 Dose: 10 mg Magnesium Hydroxide (Milk Of Magnesia 30 Ml Oral.Susp) 30 ml PO DAILY PRN PRN Reason: Constipation Metoprolol Succinate (Metoprolol Succinate Er 25 Mg Tab.Er.24h) 25 mg PO DAILY [facility]; Protocol Last Admin: 11/12/23 08:23 Dose: 25 mg Multivitamins/Vitamin C (Multivitamin Tablet) 1 tab PO DAILY [facility] Last Admin: 11/12/23 08:22 Dose: 1 tab Naproxen (Naproxen 250 Mg Tablet) 250 mg PO BID PRN PRN Reason: back pain Non-Formulary Medication (Alogliptin) 6.25 mg PO DAILY [facility] Omeprazole (Omeprazole 20 Mg Capsule.Dr) 20 mg PO BID@0630,1630 [facility] Last Admin: 11/12/23 06:51 Dose: 20 mg Oxybutynin Chloride (Oxybutynin Chloride Er 5 Mg Tab.Er.24) 10 mg PO DAILY [facility] Last Admin: 11/12/23 08:22 Dose: 10 mg Potassium Chloride (Potassium Chloride Packet 20 Meq Packet) 20 meq PO ONCE [facility] Last Admin: 11/06/23 22:30 Dose: 20 meq Quetiapine Fumarate (Quetiapine Fumarate 25 Mg Tablet) 12.5 mg PO BID@0900,1700 [facility] Last Admin: 11/12/23 08:23 Dose: 12.5 mg Quetiapine Fumarate (Quetiapine Fumarate 50 Mg Tablet) 50 mg PO BEDTIME [facility] Last Admin: 11/11/23 21:28 Dose: 50 mg Trazodone HCl (Trazodone Hcl 50 Mg Tablet) 50 mg PO BEDTIME MRX1 PRN PRN Reason: Insomnia Last Admin: 11/10/23 21:17 Dose: 50 mg Valsartan (Valsartan 80 Mg Tablet) 80 mg PO DAILY [facility]; Protocol Last Admin: 11/12/23 08:22 Dose: 80 mg Allergies Allergies Allergy/AdvReac Type Severity Reaction Status Date / Time Sulfa (Sulfonamide Allergy Severe DIFFICULTY Verified 09/18/23 21:02 Antibiotics) BREATHING [SULFA (SULFONAMIDE ANTIBIOTICS)] cephalexin [From KEFLEX] Allergy Intermediate RASH,HIVES Verified 09/18/23 21:02 amoxicillin [AMOXICILLIN] Allergy Unknown DENIES Verified 09/18/23 21:02 THIS ALLERGY 03/28/2018 penicillin V Allergy Unknown Unknown Verified 09/18/23 21:02 sumatriptan [From IMITREX] AdvReac Severe HEART Verified 09/18/23 21:02 PALPITATIONS topiramate [From TOPAMAX] AdvReac Severe AGITATION Verified 09/18/23 21:02 Assessment & Plan Assessment & Plan (1) Dementia: Qualifiers: Dementia behavioral or psychological symptom: with agitation Dementia severity: moderate Dementia type: Lewy body dementia Qualified Code(s): G31.83 - Neurocognitive disorder with Lewy bodies; F02.B11 - Dementia in other diseases classified elsewhere, moderate, with agitation Status: Acute Code(s): F03.90 - Unspecified dementia, unspecified severity, without behavioral disturbance, psychotic disturbance, mood disturbance, and anxiety Plan The patient is a 67-year-old female , with a past history of dementia with prior admissions into the hospital for psychosis and agitation transfer from the long term facility to the crisis team due to agitation. She tried to run away and she was brought by the police department to the emergency room. While she was in the ED a UTI was diagnosed and she had been treated since then. The patient is a very poor historian, confused but easily redirectable. Plan 1. Gather collateral information. The patient is a very poor historian unable to provide details. We will try to contact her family and find out details of the admission. 2. Continue with medical treatment. 3. Continue with antibiotics. 4. 15 minutes checks since the patient had been able to contract for safety. 5. Reassessment with results. 11/08: appears more linear and settled than earlier in her stay. continue current mgmt. requesting discharge. 11/11/2023: No changes to current treatment plan. 11/11 will file due to safety concerns in terms of her ability to care for herself. called unable to reach or leave message. Reason for continued inpatient stay Substantial Risk for: inability to function Time Spent With Patient Time: Total time managing care of this patient today ____ minutes.
[2023-11-12 11:49] LABS: Glucose, Whole Blood 250 mg/dL (60-115)
[2023-11-12 16:27] LABS: Glucose, Whole Blood 243 mg/dL (60-115)
[2023-11-12 19:58] LABS: Glucose, Whole Blood 261 mg/dL (60-115)
[2023-11-12 20:00] VITALS: BP 145/60; PULSE 82; RESP 20; TEMP 36; O2SAT 97
[2023-11-12] MEDS: Insulin Glargine,Hum.rec.anlog 100 UNIT/ML 10 ML VIAL 30 UNIT SUBCUT (21:15)
[2023-11-12] MEDS: QUEtiapine Fumarate 50 MG TABLET PO (21:16)
[2023-11-12] MEDS: traZODone HCL 50 MG TABLET PO (23:13)
[2023-11-13] MEDS: Omeprazole 20 MG CAPSULE.DR PO ×2 (06:27→16:33)
[2023-11-13 06:49] LABS: Glucose, Whole Blood 249 mg/dL (60-115)
[2023-11-13 08:36] VITALS: BP 116/75; PULSE 95; RESP 16; TEMP 36.2; O2SAT 95
[2023-11-13] MEDS: Insulin Lispro 100 UNIT/ML 3 ML VIAL SUBCUT ×3 (08:39→16:33)
[2023-11-13] MEDS: Aspirin Enteric Coated 81 MG TABLET.DR PO (08:41)
[2023-11-13] MEDS: Metoprolol Succinate ER 25 MG TAB.ER.24H PO (08:41)
[2023-11-13] MEDS: hydroCHLOROthiazide 12.5 MG TABLET PO (08:41)
[2023-11-13] MEDS: Valsartan 80 MG TABLET PO (08:41)
[2023-11-13] MEDS: Multivitamin TABLET 1 TAB PO (08:41)
[2023-11-13] MEDS: QUEtiapine Fumarate 25 MG TABLET 12.5 MG PO ×2 (08:41→16:34)
[2023-11-13] MEDS: Atorvastatin Calcium 80 MG TABLET PO (08:41)
[2023-11-13] MEDS: Baclofen 10 MG TABLET PO ×3 (08:41→20:58)
[2023-11-13] MEDS: Donepezil HCl 5 MG TABLET PO (08:42)
[2023-11-13] MEDS: Lactase TABLET 1 TAB PO ×3 (08:42→16:33)
[2023-11-13] MEDS: oxyBUTYnin chloride ER 5 MG TAB.ER.24 10 MG PO (08:42)
[2023-11-13] MEDS: amLODIPine Besylate 10 MG TABLET PO (08:43)
[2023-11-13] MEDS: Fluticasone Propionate Nasal 16 GM SPRAY 1 SPRAY NOSTRIL-B ×2 (08:59→20:57)
[2023-11-13 11:24] LABS: Glucose, Whole Blood 194 mg/dL (60-115)
[2023-11-13 16:16] LABS: Glucose, Whole Blood 212 mg/dL (60-115)
--- NOTE | 2023-11-13 16:49 | P.PNPSI_ITS ---
Subjective Subjective Date of Service: 11/13/23 Reason For Visit: agitation threats of harm Subjective Notes: Section 7 Interim History: Pt continues to report that she can go to family member's house. she reports she will go to [place] today if discharged, however, unable to provide more information as to how she plans to accomplish this plan. This life insurance underwriter express concern about her ability to plan and coordinate due to her cognitive impairments. She is not able to return to the 's home due to existing (as far as aware) restraining order. Pt with cognitive impairments that affect her ability to secure safe housing. She also has significant impairment in terms of ability to retain new information. She lacks insight as to how her behaviors are concerning. Review of Systems Review of Systems nothing acute Yes all other systems are reviewed and are negative Mental Status Exam Mental Status Exam Patient Appearance: Appropriate (On hospital gowns) Patient Orientation: Person Level of Consciousness: Awake and Appropriate Patient Behavior: Guarded and Passive Mood Description: Calm Affect Description: Constricted Patient Cognition Impaired: Yes Ability to Follow Directions: Fair Speech Pattern: Clear Diagnostics Vital Signs (24Hr): Vital Signs - 24 hr 11/12/23 20:00 11/13/23 08:36 Temperature 96.8 F 97.2 F Pulse Rate 82 95 Respiratory Rate 20 16 Blood Pressure 145/60 H 116/75 Pulse Oximetry 97 95 Oxygen Delivery Method Room Air Room Air BMI result Body Mass Index 32.8 Labs 11/06/23 16:46 11/08/23 07:58 Labs: Laboratory Results - last 48 hr 11/11/23 11/12/23 11/12/23 21:25 06:53 11:45 POC Glucose 287 H 173 H 250 H 11/12/23 11/12/23 11/13/23 16:13 19:42 06:26 POC Glucose 243 H 261 H 249 H 11/13/23 11/13/23 11:21 16:02 POC Glucose 194 H 212 H Medications Medications Current Medications Acetaminophen (Acetaminophen 325 Mg Tablet) 650 mg PO Q6H PRN PRN Reason: Headache/Pain Mild Scale (1-3) Last Admin: 11/11/23 16:36 Dose: 650 mg Al Hydroxide/Mg Hydroxide (Magnesium Hydrox/Alum Hydrox 30 Ml Oral.Susp) 30 ml PO Q6H PRN PRN Reason: Heartburn/Nausea Amlodipine Besylate (Amlodipine Besylate 10 Mg Tablet) 10 mg PO DAILY [facility]; Protocol Last Admin: 11/13/23 08:43 Dose: 10 mg Aspirin (Aspirin Enteric Coated 81 Mg Tablet.Dr) 81 mg PO DAILY [facility] Last Admin: 11/13/23 08:41 Dose: 81 mg Atorvastatin Calcium (Atorvastatin Calcium 80 Mg Tablet) 80 mg PO DAILY [facility] Last Admin: 11/13/23 08:41 Dose: 80 mg Baclofen (Baclofen 10 Mg Tablet) 10 mg PO TID [facility] Last Admin: 11/13/23 15:13 Dose: 10 mg Donepezil HCl (Donepezil Hcl 5 Mg Tablet) 5 mg PO DAILY [facility] Last Admin: 11/13/23 08:42 Dose: 5 mg Fluticasone Propionate (Fluticasone Propionate Nasal 16 Gm [place]) 1 spray NOSTRIL-B BID [facility] Last Admin: 11/13/23 08:59 Dose: 1 spray Hydrochlorothiazide (Hydrochlorothiazide 12.5 Mg Tablet) 12.5 mg PO DAILY [facility]; Protocol Last Admin: 11/13/23 08:41 Dose: 12.5 mg Hydroxyzine HCl (Hydroxyzine Hcl 25 Mg Tablet) 25 mg PO Q6H PRN PRN Reason: Anxiety Insulin Glargine (Insulin Glargine,Hum.Rec.Anlog 100 Unit/Ml 10 Ml Vial) 30 unit SUBCUT BEDTIME [facility] Last Admin: 11/12/23 21:15 Dose: 30 unit Insulin Human Lispro (Insulin Lispro 100 Unit/Ml 3 Ml Vial) 0 unit SUBCUT TIDAC [facility]; Protocol Last Admin: 11/13/23 16:33 Dose: 4 unit Lactase (Lactase Tablet) 1 tab PO TIDWM [facility] Last Admin: 11/13/23 16:33 Dose: 1 tab Loratadine (Loratadine 10 Mg Tablet) 10 mg PO DAILY PRN PRN Reason: allergies Last Admin: 11/11/23 15:19 Dose: 10 mg Magnesium Hydroxide (Milk Of Magnesia 30 Ml Oral.Susp) 30 ml PO DAILY PRN PRN Reason: Constipation Metoprolol Succinate (Metoprolol Succinate Er 25 Mg Tab.Er.24h) 25 mg PO DAILY [facility]; Protocol Last Admin: 11/13/23 08:41 Dose: 25 mg Multivitamins/Vitamin C (Multivitamin Tablet) 1 tab PO DAILY [facility] Last Admin: 11/13/23 08:41 Dose: 1 tab Naproxen (Naproxen 250 Mg Tablet) 250 mg PO BID PRN PRN Reason: back pain Non-Formulary Medication (Alogliptin) 6.25 mg PO DAILY [facility] Omeprazole (Omeprazole 20 Mg Capsule.Dr) 20 mg PO BID@0630,1630 [facility] Last Admin: 11/13/23 16:33 Dose: 20 mg Oxybutynin Chloride (Oxybutynin Chloride Er 5 Mg Tab.Er.24) 10 mg PO DAILY [facility] Last Admin: 11/13/23 08:42 Dose: 10 mg Potassium Chloride (Potassium Chloride Packet 20 Meq Packet) 20 meq PO ONCE [facility] Last Admin: 11/06/23 22:30 Dose: 20 meq Quetiapine Fumarate (Quetiapine Fumarate 25 Mg Tablet) 12.5 mg PO BID@0900,1700 [facility] Last Admin: 11/13/23 16:34 Dose: 12.5 mg Quetiapine Fumarate (Quetiapine Fumarate 50 Mg Tablet) 50 mg PO BEDTIME [facility] Last Admin: 11/12/23 21:16 Dose: 50 mg Trazodone HCl (Trazodone Hcl 50 Mg Tablet) 50 mg PO BEDTIME MRX1 PRN PRN Reason: Insomnia Last Admin: 11/12/23 23:13 Dose: 50 mg Valsartan (Valsartan 80 Mg Tablet) 80 mg PO DAILY [facility]; Protocol Last Admin: 11/13/23 08:41 Dose: 80 mg Allergies Allergies Allergy/AdvReac Type Severity Reaction Status Date / Time Sulfa (Sulfonamide Allergy Severe DIFFICULTY Verified 09/18/23 21:02 Antibiotics) BREATHING [SULFA (SULFONAMIDE ANTIBIOTICS)] cephalexin [From KEFLEX] Allergy Intermediate RASH,HIVES Verified 09/18/23 21:02 amoxicillin [AMOXICILLIN] Allergy Unknown DENIES Verified 09/18/23 21:02 THIS ALLERGY 03/28/2018 penicillin V Allergy Unknown Unknown Verified 09/18/23 21:02 sumatriptan [From IMITREX] AdvReac Severe HEART Verified 09/18/23 21:02 PALPITATIONS topiramate [From TOPAMAX] AdvReac Severe AGITATION Verified 09/18/23 21:02 Assessment & Plan Assessment & Plan (1) Dementia: Qualifiers: Dementia behavioral or psychological symptom: with agitation Dementia severity: moderate Dementia type: Lewy body dementia Qualified Code(s): G31.83 - Neurocognitive disorder with Lewy bodies; F02.B11 - Dementia in other diseases classified elsewhere, moderate, with agitation Status: Acute Code(s): F03.90 - Unspecified dementia, unspecified severity, without behavioral disturbance, psychotic disturbance, mood disturbance, and anxiety Plan The patient is a 67-year-old female , with a past history of dementia with prior admissions into the hospital for psychosis and agitation transfer from the retirement facility to the crisis team due to agitation. She tried to run away and she was brought by the police department to the emergency room. While she was in the ED a UTI was diagnosed and she had been treated since then. The patient is a very poor historian, confused but easily redirectable. Plan 1. Gather collateral information. The patient is a very poor historian unable to provide details. We will try to contact her family and find out details of the admission. 2. Continue with medical treatment. 3. Continue with antibiotics. 4. 15 minutes checks since the patient had been able to contract for safety. 5. Reassessment with results. 11/08: appears more linear and settled than earlier in her stay. continue current mgmt. requesting discharge. 11/11/2023: No changes to current treatment plan. 11/11 will file due to safety concerns in terms of her ability to care for herself. called unable to reach or leave message. 11/12 continue tx. Reason for continued inpatient stay Substantial Risk for: inability to function Time Spent With Patient Time: Total time managing care of this patient today ____ minutes.
[2023-11-13 20:11] LABS: Glucose, Whole Blood 259 mg/dL (60-115)
[2023-11-13] MEDS: traZODone HCL 50 MG TABLET PO ×2 (20:58→21:51)
[2023-11-13] MEDS: Insulin Glargine,Hum.rec.anlog 100 UNIT/ML 10 ML VIAL 30 UNIT SUBCUT (20:58)
[2023-11-13] MEDS: QUEtiapine Fumarate 50 MG TABLET PO (20:58)
[2023-11-13 21:13] VITALS: BP 109/54; PULSE 75; RESP 18; TEMP 36.4; O2SAT 98
[2023-11-13] MEDS: Acetaminophen 325 MG TABLET 650 MG PO (21:51)
[2023-11-14] MEDS: Omeprazole 20 MG CAPSULE.DR PO ×2 (05:09→16:49)
[2023-11-14 06:32] LABS: Glucose, Whole Blood 180 mg/dL (60-115)
[2023-11-14 08:10] VITALS: BP 126/67; PULSE 80; RESP 17; TEMP 36.4; O2SAT 100
[2023-11-14] MEDS: hydroCHLOROthiazide 12.5 MG TABLET PO (08:12)
[2023-11-14] MEDS: oxyBUTYnin chloride ER 5 MG TAB.ER.24 10 MG PO (08:12)
[2023-11-14] MEDS: Multivitamin TABLET 1 TAB PO (08:13)
[2023-11-14] MEDS: Aspirin Enteric Coated 81 MG TABLET.DR PO (08:13)
[2023-11-14] MEDS: Metoprolol Succinate ER 25 MG TAB.ER.24H PO (08:13)
[2023-11-14] MEDS: Baclofen 10 MG TABLET PO ×3 (08:13→21:21)
[2023-11-14] MEDS: Atorvastatin Calcium 80 MG TABLET PO (08:13)
[2023-11-14] MEDS: amLODIPine Besylate 10 MG TABLET PO (08:13)
[2023-11-14] MEDS: Donepezil HCl 5 MG TABLET PO (08:13)
[2023-11-14] MEDS: Lactase TABLET 1 TAB PO ×3 (08:13→16:49)
[2023-11-14] MEDS: Valsartan 80 MG TABLET PO (08:13)
[2023-11-14] MEDS: QUEtiapine Fumarate 25 MG TABLET 12.5 MG PO ×2 (08:13→16:49)
[2023-11-14] MEDS: Insulin Lispro 100 UNIT/ML 3 ML VIAL SUBCUT ×3 (08:18→16:47)
[2023-11-14] MEDS: Fluticasone Propionate Nasal 16 GM SPRAY 1 SPRAY NOSTRIL-B ×2 (08:28→21:20)
[2023-11-14 11:32] LABS: Glucose, Whole Blood 342 mg/dL (60-115)
[2023-11-14 16:29] LABS: Glucose, Whole Blood 225 mg/dL (60-115)
--- NOTE | 2023-11-14 17:02 | HO.PSYCHPN ---
Subjective Subjective Date of Service: 11/14/23 Reason For Visit: agitation threats of harm Subjective Notes: Section 7 Interim History: Pt slept through the night. She is visible on the unit and attends some groups. No aggression here on the unit. She denies SI/HI. No insight into cognitive impairments and need for supports. No insight into events leading to this admission. she is taking medications as prescribed. No signs of psychosis. Review of Systems Review of Systems nothing acute Yes all other systems are reviewed and are negative Mental Status Exam Mental Status Exam Patient Appearance: Appropriate (On hospital gowns) Patient Orientation: Person Level of Consciousness: Awake and Appropriate Patient Behavior: Guarded and Passive Mood Description: Calm Affect Description: Constricted Patient Cognition Impaired: Yes Ability to Follow Directions: Fair Speech Pattern: Clear Diagnostics Vital Signs (24Hr): Vital Signs - 24 hr 11/13/23 21:13 11/14/23 08:10 Temperature 97.5 F 97.5 F Pulse Rate 75 80 Respiratory Rate 18 17 Blood Pressure 109/54 L 126/67 Pulse Oximetry 98 100 Oxygen Delivery Method Room Air Room Air BMI result Body Mass Index 32.8 Labs 11/06/23 16:46 11/08/23 07:58 Labs: Laboratory Results - last 48 hr 11/12/23 11/13/23 11/13/23 19:42 06:26 11:21 POC Glucose 261 H 249 H 194 H 11/13/23 11/13/23 11/14/23 16:02 20:06 06:17 POC Glucose 212 H 259 H 180 H 11/14/23 11/14/23 11:27 16:20 POC Glucose 342 H 225 H Medications Medications Current Medications Acetaminophen (Acetaminophen 325 Mg Tablet) 650 mg PO Q6H PRN PRN Reason: Headache/Pain Mild Scale (1-3) Last Admin: 11/13/23 21:51 Dose: 650 mg Al Hydroxide/Mg Hydroxide (Magnesium Hydrox/Alum Hydrox 30 Ml Oral.Susp) 30 ml PO Q6H PRN PRN Reason: Heartburn/Nausea Amlodipine Besylate (Amlodipine Besylate 10 Mg Tablet) 10 mg PO DAILY [facility]; Protocol Last Admin: 11/14/23 08:13 Dose: 10 mg Aspirin (Aspirin Enteric Coated 81 Mg Tablet.) 81 mg PO DAILY [facility] Last Admin: 11/14/23 08:13 Dose: 81 mg Atorvastatin Calcium (Atorvastatin Calcium 80 Mg Tablet) 80 mg PO DAILY [facility] Last Admin: 11/14/23 08:13 Dose: 80 mg Baclofen (Baclofen 10 Mg Tablet) 10 mg PO TID [facility] Last Admin: 11/14/23 15:13 Dose: 10 mg Donepezil HCl (Donepezil Hcl 5 Mg Tablet) 5 mg PO DAILY [facility] Last Admin: 11/14/23 08:13 Dose: 5 mg Fluticasone Propionate (Fluticasone Propionate Nasal 16 Gm [place]) 1 spray NOSTRIL-B BID [facility] Last Admin: 11/14/23 08:28 Dose: 1 spray Hydrochlorothiazide (Hydrochlorothiazide 12.5 Mg Tablet) 12.5 mg PO DAILY [facility]; Protocol Last Admin: 11/14/23 08:12 Dose: 12.5 mg Hydroxyzine HCl (Hydroxyzine Hcl 25 Mg Tablet) 25 mg PO Q6H PRN PRN Reason: Anxiety Insulin Glargine (Insulin Glargine,Hum.Rec.Anlog 100 Unit/Ml 10 Ml Vial) 30 unit SUBCUT BEDTIME [facility] Last Admin: 11/13/23 20:58 Dose: 30 unit Insulin Human Lispro (Insulin Lispro 100 Unit/Ml 3 Ml Vial) 0 unit SUBCUT TIDAC [facility]; Protocol Last Admin: 11/14/23 16:47 Dose: 6 unit Lactase (Lactase Tablet) 1 tab PO TIDWM [facility] Last Admin: 11/14/23 16:49 Dose: 1 tab Loratadine (Loratadine 10 Mg Tablet) 10 mg PO DAILY PRN PRN Reason: allergies Last Admin: 11/11/23 15:19 Dose: 10 mg Magnesium Hydroxide (Milk Of Magnesia 30 Ml Oral.Susp) 30 ml PO DAILY PRN PRN Reason: Constipation Metoprolol Succinate (Metoprolol Succinate Er 25 Mg Tab.Er.24h) 25 mg PO DAILY [facility]; Protocol Last Admin: 11/14/23 08:13 Dose: 25 mg Multivitamins/Vitamin C (Multivitamin Tablet) 1 tab PO DAILY [facility] Last Admin: 11/14/23 08:13 Dose: 1 tab Naproxen (Naproxen 250 Mg Tablet) 250 mg PO BID PRN PRN Reason: back pain Non-Formulary Medication (Alogliptin) 6.25 mg PO DAILY [facility] Omeprazole (Omeprazole 20 Mg Capsule.Dr) 20 mg PO BID@0630,1630 [facility] Last Admin: 11/14/23 16:49 Dose: 20 mg Oxybutynin Chloride (Oxybutynin Chloride Er 5 Mg Tab.Er.24) 10 mg PO DAILY [facility] Last Admin: 11/14/23 08:12 Dose: 10 mg Potassium Chloride (Potassium Chloride Packet 20 Meq Packet) 20 meq PO ONCE [facility] Last Admin: 11/06/23 22:30 Dose: 20 meq Quetiapine Fumarate (Quetiapine Fumarate 25 Mg Tablet) 12.5 mg PO BID@0900,1700 [facility] Last Admin: 11/14/23 16:49 Dose: 12.5 mg Quetiapine Fumarate (Quetiapine Fumarate 50 Mg Tablet) 50 mg PO BEDTIME [facility] Last Admin: 11/13/23 20:58 Dose: 50 mg Trazodone HCl (Trazodone Hcl 50 Mg Tablet) 50 mg PO BEDTIME MRX1 PRN PRN Reason: Insomnia Last Admin: 11/13/23 21:51 Dose: 50 mg Valsartan (Valsartan 80 Mg Tablet) 80 mg PO DAILY [facility]; Protocol Last Admin: 11/14/23 08:13 Dose: 80 mg Allergies Allergies Allergy/AdvReac Type Severity Reaction Status Date / Time Sulfa (Sulfonamide Allergy Severe DIFFICULTY Verified 09/18/23 21:02 Antibiotics) BREATHING [SULFA (SULFONAMIDE ANTIBIOTICS)] cephalexin [From KEFLEX] Allergy Intermediate RASH,HIVES Verified 09/18/23 21:02 amoxicillin [AMOXICILLIN] Allergy Unknown DENIES Verified 09/18/23 21:02 THIS ALLERGY 03/28/2018 penicillin V Allergy Unknown Unknown Verified 09/18/23 21:02 sumatriptan [From IMITREX] AdvReac Severe HEART Verified 09/18/23 21:02 PALPITATIONS topiramate [From TOPAMAX] AdvReac Severe AGITATION Verified 09/18/23 21:02 Assessment & Plan Assessment & Plan (1) Dementia: Qualifiers: Dementia behavioral or psychological symptom: with agitation Dementia severity: moderate Dementia type: Lewy body dementia Qualified Code(s): G31.83 - Neurocognitive disorder with Lewy bodies; F02.B11 - Dementia in other diseases classified elsewhere, moderate, with agitation Status: Acute Code(s): F03.90 - Unspecified dementia, unspecified severity, without behavioral disturbance, psychotic disturbance, mood disturbance, and anxiety Plan The patient is a 67-year-old female , with a past history of dementia with prior admissions into the hospital for psychosis and agitation transfer from the [facility] facility to the crisis team due to agitation. She tried to run away and she was brought by the police department to the emergency room. While she was in the ED a UTI was diagnosed and she had been treated since then. The patient is a very poor historian, confused but easily redirectable. Plan 1. Gather collateral information. The patient is a very poor historian unable to provide details. We will try to contact her family and find out details of the admission. 2. Continue with medical treatment. 3. Continue with antibiotics. 4. 15 minutes checks since the patient had been able to contract for safety. 5. Reassessment with results. 11/08: appears more linear and settled than earlier in her stay. continue current mgmt. requesting discharge. 11/11/2023: No changes to current treatment plan. 11/11 will file due to safety concerns in terms of her ability to care for herself. called unable to reach or leave message. 11/12 continue tx 11/13 continue tx. Reason for continued inpatient stay Substantial Risk for: inability to function Time Spent With Patient Time: Total time managing care of this patient today ____ minutes.
[2023-11-14 18:00] VITALS: BP 108/59; PULSE 76; RESP 18; TEMP 35.9; O2SAT 97
[2023-11-14 19:52] LABS: Glucose, Whole Blood 265 mg/dL (60-115)
[2023-11-14] MEDS: Insulin Glargine,Hum.rec.anlog 100 UNIT/ML 10 ML VIAL 30 UNIT SUBCUT (21:19)
[2023-11-14] MEDS: traZODone HCL 50 MG TABLET PO ×2 (21:20→22:53)
[2023-11-14] MEDS: QUEtiapine Fumarate 50 MG TABLET PO (21:21)
[2023-11-14] MEDS: hydrOXYzine HCL 25 MG TABLET PO (23:13)
[2023-11-15 06:00] VITALS: BP 97/51; PULSE 89; RESP 14; TEMP 36.7; O2SAT 95
[2023-11-15] MEDS: Omeprazole 20 MG CAPSULE.DR PO ×2 (06:38→16:55)
[2023-11-15 06:48] LABS: Glucose, Whole Blood 244 mg/dL (60-115)
[2023-11-15 07:00] VITALS: BMI 33.7
[2023-11-15] MEDS: QUEtiapine Fumarate 25 MG TABLET 12.5 MG PO ×2 (08:10→16:55)
[2023-11-15] MEDS: Metoprolol Succinate ER 25 MG TAB.ER.24H PO (08:10)
[2023-11-15] MEDS: Multivitamin TABLET 1 TAB PO (08:10)
[2023-11-15] MEDS: hydroCHLOROthiazide 12.5 MG TABLET PO (08:10)
[2023-11-15] MEDS: oxyBUTYnin chloride ER 5 MG TAB.ER.24 10 MG PO (08:10)
[2023-11-15] MEDS: Atorvastatin Calcium 80 MG TABLET PO (08:10)
[2023-11-15] MEDS: Fluticasone Propionate Nasal 16 GM SPRAY 1 SPRAY NOSTRIL-B ×2 (08:11→21:00)
[2023-11-15] MEDS: amLODIPine Besylate 10 MG TABLET PO (08:11)
[2023-11-15] MEDS: Baclofen 10 MG TABLET PO ×3 (08:11→21:01)
[2023-11-15] MEDS: Donepezil HCl 5 MG TABLET PO (08:11)
[2023-11-15] MEDS: Valsartan 80 MG TABLET PO (08:11)
[2023-11-15] MEDS: Insulin Lispro 100 UNIT/ML 3 ML VIAL SUBCUT ×3 (08:12→16:56)
[2023-11-15] MEDS: Aspirin Enteric Coated 81 MG TABLET.DR PO (08:12)
[2023-11-15] MEDS: Lactase TABLET 1 TAB PO ×3 (08:12→16:55)
[2023-11-15 11:17] LABS: Glucose, Whole Blood 169 mg/dL (60-115)
[2023-11-15] MEDS: Acetaminophen 325 MG TABLET 650 MG PO (14:10)
[2023-11-15 16:18] LABS: Glucose, Whole Blood 260 mg/dL (60-115)
[2023-11-15 18:00] VITALS: BP 116/58; PULSE 65; RESP 16; TEMP 36.5; O2SAT 97
[2023-11-15] MEDS: hydrOXYzine HCL 25 MG TABLET PO (21:01)
[2023-11-15] MEDS: traZODone HCL 50 MG TABLET PO (21:01)
[2023-11-15] MEDS: Insulin Glargine,Hum.rec.anlog 100 UNIT/ML 10 ML VIAL 30 UNIT SUBCUT (21:01)
[2023-11-15] MEDS: QUEtiapine Fumarate 50 MG TABLET PO (21:02)
--- NOTE | 2023-11-15 21:44 | HO.PSYCHPN ---
Subjective Subjective Date of Service: 11/16/23 Reason For Visit: agitation threats of harm Subjective Notes: Section 7 Interim History: Pt slept through the night. She is visible on the unit and attends some groups. No aggression here on the unit. She denies SI/HI. No insight into cognitive impairments and need for supports. No insight into events leading to this admission. she is taking medications as prescribed. No signs of psychosis. She asks this television script writer to just let her go. She states I'm leaving today anyway despite explaining that due to her cognitive impairments and lack of ability to show understanding as to how she would secure safe housing, [facility], we can't just let her go as she is not safe. Review of Systems Review of Systems nothing acute Yes all other systems are reviewed and are negative Mental Status Exam Mental Status Exam Patient Appearance: Well Grooomed Patient Orientation: Person Level of Consciousness: Awake and Appropriate Patient Behavior: Guarded and Passive Mood Description: Calm Affect Description: Constricted Patient Cognition Impaired: Yes Ability to Follow Directions: Fair Speech Pattern: Clear Diagnostics Vital Signs (24Hr): Vital Signs - 24 hr 11/15/23 06:00 Temperature 98.1 F Pulse Rate 89 Respiratory Rate 14 Blood Pressure 97/51 L Pulse Oximetry 95 Oxygen Delivery Method Room Air BMI result Body Mass Index 33.7 Labs 11/06/23 16:46 11/08/23 07:58 Labs: Laboratory Results - last 48 hr 11/14/23 11/14/23 11/14/23 06:17 11:27 16:20 POC Glucose 180 H 342 H 225 H 11/14/23 11/15/23 11/15/23 19:35 06:37 11:10 POC Glucose 265 H 244 H 169 H 11/15/23 16:09 POC Glucose 260 H Medications Medications Current Medications Acetaminophen (Acetaminophen 325 Mg Tablet) 650 mg PO Q6H PRN PRN Reason: Headache/Pain Mild Scale (1-3) Last Admin: 11/15/23 14:10 Dose: 650 mg Al Hydroxide/Mg Hydroxide (Magnesium Hydrox/Alum Hydrox 30 Ml Oral.Susp) 30 ml PO Q6H PRN PRN Reason: Heartburn/Nausea Amlodipine Besylate (Amlodipine Besylate 10 Mg Tablet) 10 mg PO DAILY [facility]; Protocol Last Admin: 11/15/23 08:11 Dose: 10 mg Aspirin (Aspirin Enteric Coated 81 Mg Tablet.Dr) 81 mg PO DAILY [facility] Last Admin: 11/15/23 08:12 Dose: 81 mg Atorvastatin Calcium (Atorvastatin Calcium 80 Mg Tablet) 80 mg PO DAILY [facility] Last Admin: 11/15/23 08:10 Dose: 80 mg Baclofen (Baclofen 10 Mg Tablet) 10 mg PO TID [facility] Last Admin: 11/15/23 21:01 Dose: 10 mg Donepezil HCl (Donepezil Hcl 5 Mg Tablet) 5 mg PO DAILY [facility] Last Admin: 11/15/23 08:11 Dose: 5 mg Fluticasone Propionate (Fluticasone Propionate Nasal 16 Gm [place]) 1 spray NOSTRIL-B BID [facility] Last Admin: 11/15/23 21:00 Dose: 1 spray Hydrochlorothiazide (Hydrochlorothiazide 12.5 Mg Tablet) 12.5 mg PO DAILY [facility]; Protocol Last Admin: 11/15/23 08:10 Dose: 12.5 mg Hydroxyzine HCl (Hydroxyzine Hcl 25 Mg Tablet) 25 mg PO Q6H PRN PRN Reason: Anxiety Last Admin: 11/15/23 21:01 Dose: 25 mg Insulin Glargine (Insulin Glargine,Hum.Rec.Anlog 100 Unit/Ml 10 Ml Vial) 30 unit SUBCUT BEDTIME [facility] Last Admin: 11/15/23 21:01 Dose: 30 unit Insulin Human Lispro (Insulin Lispro 100 Unit/Ml 3 Ml Vial) 0 unit SUBCUT TIDAC [facility]; Protocol Last Admin: 11/15/23 16:56 Dose: 6 unit Lactase (Lactase Tablet) 1 tab PO TIDWM [facility] Last Admin: 11/15/23 16:55 Dose: 1 tab Loratadine (Loratadine 10 Mg Tablet) 10 mg PO DAILY PRN PRN Reason: allergies Last Admin: 11/11/23 15:19 Dose: 10 mg Magnesium Hydroxide (Milk Of Magnesia 30 Ml Oral.Susp) 30 ml PO DAILY PRN PRN Reason: Constipation Metoprolol Succinate (Metoprolol Succinate Er 25 Mg Tab.Er.24h) 25 mg PO DAILY [facility]; Protocol Last Admin: 11/15/23 08:10 Dose: 25 mg Multivitamins/Vitamin C (Multivitamin Tablet) 1 tab PO DAILY [facility] Last Admin: 11/15/23 08:10 Dose: 1 tab Naproxen (Naproxen 250 Mg Tablet) 250 mg PO BID PRN PRN Reason: back pain Omeprazole (Omeprazole 20 Mg Capsule.Dr) 20 mg PO BID@0630,1630 [facility] Last Admin: 11/15/23 16:55 Dose: 20 mg Oxybutynin Chloride (Oxybutynin Chloride Er 5 Mg Tab.Er.24) 10 mg PO DAILY [facility] Last Admin: 11/15/23 08:10 Dose: 10 mg Potassium Chloride (Potassium Chloride Packet 20 Meq Packet) 20 meq PO ONCE [facility] Last Admin: 11/06/23 22:30 Dose: 20 meq Quetiapine Fumarate (Quetiapine Fumarate 25 Mg Tablet) 12.5 mg PO BID@0900,1700 [facility] Last Admin: 11/15/23 16:55 Dose: 12.5 mg Quetiapine Fumarate (Quetiapine Fumarate 50 Mg Tablet) 50 mg PO BEDTIME [facility] Last Admin: 11/15/23 21:02 Dose: 50 mg Trazodone HCl (Trazodone Hcl 50 Mg Tablet) 50 mg PO BEDTIME MRX1 PRN PRN Reason: Insomnia Last Admin: 11/15/23 21:01 Dose: 50 mg Valsartan (Valsartan 80 Mg Tablet) 80 mg PO DAILY [facility]; Protocol Last Admin: 11/15/23 08:11 Dose: 80 mg Allergies Allergies Allergy/AdvReac Type Severity Reaction Status Date / Time Sulfa (Sulfonamide Allergy Severe DIFFICULTY Verified 09/18/23 21:02 Antibiotics) BREATHING [SULFA (SULFONAMIDE ANTIBIOTICS)] cephalexin [From KEFLEX] Allergy Intermediate RASH,HIVES Verified 09/18/23 21:02 amoxicillin [AMOXICILLIN] Allergy Unknown DENIES Verified 09/18/23 21:02 THIS ALLERGY 03/28/2018 penicillin V Allergy Unknown Unknown Verified 09/18/23 21:02 sumatriptan [From IMITREX] AdvReac Severe HEART Verified 09/18/23 21:02 PALPITATIONS topiramate [From TOPAMAX] AdvReac Severe AGITATION Verified 09/18/23 21:02 Assessment & Plan Assessment & Plan (1) Dementia: Qualifiers: Dementia behavioral or psychological symptom: with agitation Dementia severity: moderate Dementia type: Lewy body dementia Qualified Code(s): G31.83 - Neurocognitive disorder with Lewy bodies; F02.B11 - Dementia in other diseases classified elsewhere, moderate, with agitation Status: Acute Code(s): F03.90 - Unspecified dementia, unspecified severity, without behavioral disturbance, psychotic disturbance, mood disturbance, and anxiety Plan The patient is a 67-year-old female , with a past history of dementia with prior admissions into the hospital for psychosis and agitation transfer from the detention facility to the crisis team due to agitation. She tried to run away and she was brought by the police department to the emergency room. While she was in the ED a UTI was diagnosed and she had been treated since then. The patient is a very poor historian, confused but easily redirectable. Plan 1. Gather collateral information. The patient is a very poor historian unable to provide details. We will try to contact her family and find out details of the admission. 2. Continue with medical treatment. 3. Continue with antibiotics. 4. 15 minutes checks since the patient had been able to contract for safety. 5. Reassessment with results. 11/08: appears more linear and settled than earlier in her stay. continue current mgmt. requesting discharge. 11/11/2023: No changes to current treatment plan. 11/11 will file due to safety concerns in terms of her ability to care for herself. called unable to reach or leave message. 11/12 continue tx 11/13 continue tx. She does have bed at [facility]. Reason for continued inpatient stay Substantial Risk for: inability to function Time Spent With Patient Time: Total time managing care of this patient today ____ minutes.
[2023-11-16 00:01] LABS: Glucose, Whole Blood 264 mg/dL (60-115)
[2023-11-16] MEDS: Omeprazole 20 MG CAPSULE.DR PO ×2 (05:55→17:39)
[2023-11-16 06:00] VITALS: BP 118/62; PULSE 84; RESP 18; TEMP 36; O2SAT 96
[2023-11-16 06:38] LABS: Glucose, Whole Blood 170 mg/dL (60-115)
[2023-11-16] MEDS: QUEtiapine Fumarate 25 MG TABLET 12.5 MG PO ×2 (09:21→17:39)
[2023-11-16] MEDS: Insulin Lispro 100 UNIT/ML 3 ML VIAL SUBCUT ×2 (09:21→17:38)
[2023-11-16] MEDS: hydroCHLOROthiazide 12.5 MG TABLET PO (09:22)
[2023-11-16] MEDS: Metoprolol Succinate ER 25 MG TAB.ER.24H PO (09:22)
[2023-11-16] MEDS: Valsartan 80 MG TABLET PO (09:22)
[2023-11-16] MEDS: Lactase TABLET 1 TAB PO ×3 (09:22→17:39)
[2023-11-16] MEDS: Donepezil HCl 5 MG TABLET PO (09:22)
[2023-11-16] MEDS: Aspirin Enteric Coated 81 MG TABLET.DR PO (09:22)
[2023-11-16] MEDS: Baclofen 10 MG TABLET PO ×3 (09:22→20:53)
[2023-11-16] MEDS: oxyBUTYnin chloride ER 5 MG TAB.ER.24 10 MG PO (09:22)
[2023-11-16] MEDS: Fluticasone Propionate Nasal 16 GM SPRAY 1 SPRAY NOSTRIL-B ×2 (09:23→20:55)
[2023-11-16] MEDS: amLODIPine Besylate 10 MG TABLET PO (09:23)
[2023-11-16] MEDS: Atorvastatin Calcium 80 MG TABLET PO (09:23)
[2023-11-16] MEDS: Multivitamin TABLET 1 TAB PO (09:23)
[2023-11-16 11:41] LABS: Glucose, Whole Blood 143 mg/dL (60-115)
[2023-11-16] MEDS: Loratadine 10 MG TABLET PO (12:51)
[2023-11-16 16:17] LABS: Glucose, Whole Blood 165 mg/dL (60-115)
--- NOTE | 2023-11-16 16:22 | HO.PSYCHPN ---
Subjective Subjective Date of Service: 11/16/23 Reason For Visit: agitation threats of harm Subjective Notes: Section 7 Interim History: Pt slept through the night. She is visible on the unit and attends some groups. No aggression here on the unit. She denies SI/HI. No insight into cognitive impairments and need for supports. No insight into events leading to this admission. she is taking medications as prescribed. No signs of psychosis. She asks this racebook writer to just let her go. She states I'm leaving today anyway despite explaining that due to her cognitive impairments and lack of ability to show understanding as to how she would secure safe housing, [facility], we can't just let her go as she is not safe. She is not engaging in any binh of meaning discussion about safe discharge and dispo- this is due to her cognitive impairments. Review of Systems Review of Systems nothing acute Yes all other systems are reviewed and are negative Mental Status Exam Mental Status Exam Patient Appearance: Well Grooomed Patient Orientation: Person Level of Consciousness: Awake and Appropriate Patient Behavior: Guarded and Passive Mood Description: Calm Affect Description: Constricted Patient Cognition Impaired: Yes Ability to Follow Directions: Fair Speech Pattern: Clear Diagnostics Vital Signs (24Hr): Vital Signs - 24 hr 11/15/23 18:00 Temperature 97.7 F Pulse Rate 65 Respiratory Rate 16 Blood Pressure 116/58 L Pulse Oximetry 97 Oxygen Delivery Method Room Air BMI result Body Mass Index 33.7 Labs 11/06/23 16:46 11/08/23 07:58 Labs: Laboratory Results - last 48 hr 11/14/23 11/14/23 11/15/23 16:20 19:35 06:37 POC Glucose 225 H 265 H 244 H 11/15/23 11/15/23 11/15/23 11:10 16:09 20:13 POC Glucose 169 H 260 H 264 H 11/16/23 11/16/23 11/16/23 05:57 11:29 16:03 POC Glucose 170 H 143 H 165 H Medications Medications Current Medications Acetaminophen (Acetaminophen 325 Mg Tablet) 650 mg PO Q6H PRN PRN Reason: Headache/Pain Mild Scale (1-3) Last Admin: 11/15/23 14:10 Dose: 650 mg Al Hydroxide/Mg Hydroxide (Magnesium Hydrox/Alum Hydrox 30 Ml Oral.Susp) 30 ml PO Q6H PRN PRN Reason: Heartburn/Nausea Amlodipine Besylate (Amlodipine Besylate 10 Mg Tablet) 10 mg PO DAILY [facility]; Protocol Last Admin: 11/16/23 09:23 Dose: 10 mg Aspirin (Aspirin Enteric Coated 81 Mg Tablet.Dr) 81 mg PO DAILY [facility] Last Admin: 11/16/23 09:22 Dose: 81 mg Atorvastatin Calcium (Atorvastatin Calcium 80 Mg Tablet) 80 mg PO DAILY [facility] Last Admin: 11/16/23 09:23 Dose: 80 mg Baclofen (Baclofen 10 Mg Tablet) 10 mg PO TID [facility] Last Admin: 11/16/23 14:49 Dose: 10 mg Donepezil HCl (Donepezil Hcl 5 Mg Tablet) 5 mg PO DAILY [facility] Last Admin: 11/16/23 09:22 Dose: 5 mg Fluticasone Propionate (Fluticasone Propionate Nasal 16 Gm [place]) 1 spray NOSTRIL-B BID [facility] Last Admin: 11/16/23 09:23 Dose: 1 spray Hydrochlorothiazide (Hydrochlorothiazide 12.5 Mg Tablet) 12.5 mg PO DAILY [facility]; Protocol Last Admin: 11/16/23 09:22 Dose: 12.5 mg Hydroxyzine HCl (Hydroxyzine Hcl 25 Mg Tablet) 25 mg PO Q6H PRN PRN Reason: Anxiety Last Admin: 11/15/23 21:01 Dose: 25 mg Insulin Glargine (Insulin Glargine,Hum.Rec.Anlog 100 Unit/Ml 10 Ml Vial) 30 unit SUBCUT BEDTIME [facility] Last Admin: 11/15/23 21:01 Dose: 30 unit Insulin Human Lispro (Insulin Lispro 100 Unit/Ml 3 Ml Vial) 0 unit SUBCUT TIDAC [facility]; Protocol Last Admin: 11/16/23 13:00 Dose: Not Given Lactase (Lactase Tablet) 1 tab PO TIDWM [facility] Last Admin: 11/16/23 13:03 Dose: 1 tab Loratadine (Loratadine 10 Mg Tablet) 10 mg PO DAILY PRN PRN Reason: allergies Last Admin: 11/16/23 12:51 Dose: 10 mg Magnesium Hydroxide (Milk Of Magnesia 30 Ml Oral.Susp) 30 ml PO DAILY PRN PRN Reason: Constipation Metoprolol Succinate (Metoprolol Succinate Er 25 Mg Tab.Er.24h) 25 mg PO DAILY [facility]; Protocol Last Admin: 11/16/23 09:22 Dose: 25 mg Multivitamins/Vitamin C (Multivitamin Tablet) 1 tab PO DAILY [facility] Last Admin: 11/16/23 09:23 Dose: 1 tab Naproxen (Naproxen 250 Mg Tablet) 250 mg PO BID PRN PRN Reason: back pain Omeprazole (Omeprazole 20 Mg Capsule.Dr) 20 mg PO BID@0630,1630 [facility] Last Admin: 11/16/23 05:55 Dose: 20 mg Oxybutynin Chloride (Oxybutynin Chloride Er 5 Mg Tab.Er.24) 10 mg PO DAILY [facility] Last Admin: 11/16/23 09:22 Dose: 10 mg Potassium Chloride (Potassium Chloride Packet 20 Meq Packet) 20 meq PO ONCE [facility] Last Admin: 11/06/23 22:30 Dose: 20 meq Quetiapine Fumarate (Quetiapine Fumarate 25 Mg Tablet) 12.5 mg PO BID@0900,1700 [facility] Last Admin: 11/16/23 09:21 Dose: 12.5 mg Quetiapine Fumarate (Quetiapine Fumarate 50 Mg Tablet) 50 mg PO BEDTIME [facility] Last Admin: 11/15/23 21:02 Dose: 50 mg Trazodone HCl (Trazodone Hcl 50 Mg Tablet) 50 mg PO BEDTIME MRX1 PRN PRN Reason: Insomnia Last Admin: 11/15/23 21:01 Dose: 50 mg Valsartan (Valsartan 80 Mg Tablet) 80 mg PO DAILY [facility]; Protocol Last Admin: 11/16/23 09:22 Dose: 80 mg Allergies Allergies Allergy/AdvReac Type Severity Reaction Status Date / Time Sulfa (Sulfonamide Allergy Severe DIFFICULTY Verified 09/18/23 21:02 Antibiotics) BREATHING [SULFA (SULFONAMIDE ANTIBIOTICS)] cephalexin [From KEFLEX] Allergy Intermediate RASH,HIVES Verified 09/18/23 21:02 amoxicillin [AMOXICILLIN] Allergy Unknown DENIES Verified 09/18/23 21:02 THIS ALLERGY 03/28/2018 penicillin V Allergy Unknown Unknown Verified 09/18/23 21:02 sumatriptan [From IMITREX] AdvReac Severe HEART Verified 09/18/23 21:02 PALPITATIONS topiramate [From TOPAMAX] AdvReac Severe AGITATION Verified 09/18/23 21:02 Assessment & Plan Assessment & Plan (1) Dementia: Qualifiers: Dementia behavioral or psychological symptom: with agitation Dementia severity: moderate Dementia type: Lewy body dementia Qualified Code(s): G31.83 - Neurocognitive disorder with Lewy bodies; F02.B11 - Dementia in other diseases classified elsewhere, moderate, with agitation Status: Acute Code(s): F03.90 - Unspecified dementia, unspecified severity, without behavioral disturbance, psychotic disturbance, mood disturbance, and anxiety Plan The patient is a 67-year-old female , with a past history of dementia with prior admissions into the hospital for psychosis and agitation transfer from the residential facility to the crisis team due to agitation. She tried to run away and she was brought by the police department to the emergency room. While she was in the ED a UTI was diagnosed and she had been treated since then. The patient is a very poor historian, confused but easily redirectable. Plan 1. Gather collateral information. The patient is a very poor historian unable to provide details. We will try to contact her family and find out details of the admission. 2. Continue with medical treatment. 3. Continue with antibiotics. 4. 15 minutes checks since the patient had been able to contract for safety. 5. Reassessment with results. 11/08: appears more linear and settled than earlier in her stay. continue current mgmt. requesting discharge. 11/11/2023: No changes to current treatment plan. 11/11 will file due to safety concerns in terms of her ability to care for herself. called unable to reach or leave message. 11/12 continue tx 11/13 continue tx. She does have bed at [facility]. 11/14 continue tx. 11/15 continue tx. Reason for continued inpatient stay Substantial Risk for: inability to function Time Spent With Patient Time: Total time managing care of this patient today ____ minutes.
[2023-11-16 18:00] VITALS: BP 103/51; PULSE 76; RESP 18; TEMP 36.1; O2SAT 97
[2023-11-16 20:11] LABS: Glucose, Whole Blood 208 mg/dL (60-115)
[2023-11-16] MEDS: QUEtiapine Fumarate 50 MG TABLET PO (20:53)
[2023-11-16] MEDS: traZODone HCL 50 MG TABLET PO (20:54)
[2023-11-16] MEDS: Insulin Glargine,Hum.rec.anlog 100 UNIT/ML 10 ML VIAL 30 UNIT SUBCUT (20:57)
[2023-11-17] MEDS: Omeprazole 20 MG CAPSULE.DR PO ×2 (06:07→16:48)
[2023-11-17 06:37] LABS: Glucose, Whole Blood 150 mg/dL (60-115)
[2023-11-17 08:00] VITALS: BP 125/61; PULSE 79; RESP 18; O2SAT 94
[2023-11-17] MEDS: Aspirin Enteric Coated 81 MG TABLET.DR PO (08:39)
[2023-11-17] MEDS: oxyBUTYnin chloride ER 5 MG TAB.ER.24 10 MG PO (08:39)
[2023-11-17] MEDS: Lactase TABLET 1 TAB PO ×3 (08:39→16:48)
[2023-11-17] MEDS: Baclofen 10 MG TABLET PO ×3 (08:39→20:54)
[2023-11-17] MEDS: QUEtiapine Fumarate 25 MG TABLET 12.5 MG PO ×2 (08:39→16:48)
[2023-11-17] MEDS: Valsartan 80 MG TABLET PO (08:39)
[2023-11-17] MEDS: Multivitamin TABLET 1 TAB PO (08:39)
[2023-11-17] MEDS: Atorvastatin Calcium 80 MG TABLET PO (08:40)
[2023-11-17] MEDS: Metoprolol Succinate ER 25 MG TAB.ER.24H PO (08:40)
[2023-11-17] MEDS: hydroCHLOROthiazide 12.5 MG TABLET PO (08:40)
[2023-11-17] MEDS: amLODIPine Besylate 10 MG TABLET PO (08:40)
[2023-11-17] MEDS: Donepezil HCl 5 MG TABLET PO (08:40)
[2023-11-17] MEDS: Fluticasone Propionate Nasal 16 GM SPRAY 1 SPRAY NOSTRIL-B ×2 (08:42→20:54)
--- NOTE | 2023-11-17 10:44 | P.PNPSI_ITS ---
Subjective Subjective Date of Service: 11/17/23 Reason For Visit: agitation threats of harm Subjective Notes: Section 7 Interim History: Pt sleeping through the night. No behavioral concerns. She is taking medications as prescribed pending placement. Review of Systems Review of Systems nothing acute Yes all other systems are reviewed and are negative Mental Status Exam Mental Status Exam Patient Appearance: Well Grooomed Patient Orientation: Person Level of Consciousness: Awake and Appropriate Patient Behavior: Guarded and Passive Mood Description: Calm Affect Description: Constricted Patient Cognition Impaired: Yes Ability to Follow Directions: Fair Speech Pattern: Clear Diagnostics Vital Signs (24Hr): Vital Signs - 24 hr 11/16/23 18:00 11/17/23 08:00 Temperature 97 F Pulse Rate 76 79 Respiratory Rate 18 18 Blood Pressure 103/51 L 125/61 Pulse Oximetry 97 94 Oxygen Delivery Method Room Air Room Air BMI result Body Mass Index 33.7 Labs 11/06/23 16:46 11/08/23 07:58 Labs: Laboratory Results - last 48 hr 11/15/23 11/15/23 11/15/23 11:10 16:09 20:13 POC Glucose 169 H 260 H 264 H 11/16/23 11/16/23 11/16/23 05:57 11:29 16:03 POC Glucose 170 H 143 H 165 H 11/16/23 11/17/23 20:03 06:07 POC Glucose 208 H 150 H Medications Medications Current Medications Acetaminophen (Acetaminophen 325 Mg Tablet) 650 mg PO Q6H PRN PRN Reason: Headache/Pain Mild Scale (1-3) Last Admin: 11/15/23 14:10 Dose: 650 mg Al Hydroxide/Mg Hydroxide (Magnesium Hydrox/Alum Hydrox 30 Ml Oral.Susp) 30 ml PO Q6H PRN PRN Reason: Heartburn/Nausea Amlodipine Besylate (Amlodipine Besylate 10 Mg Tablet) 10 mg PO DAILY [facility]; Protocol Last Admin: 11/17/23 08:40 Dose: 10 mg Aspirin (Aspirin Enteric Coated 81 Mg Tablet.) 81 mg PO DAILY [facility] Last Admin: 11/17/23 08:39 Dose: 81 mg Atorvastatin Calcium (Atorvastatin Calcium 80 Mg Tablet) 80 mg PO DAILY [facility] Last Admin: 11/17/23 08:40 Dose: 80 mg Baclofen (Baclofen 10 Mg Tablet) 10 mg PO TID [facility] Last Admin: 11/17/23 08:39 Dose: 10 mg Donepezil HCl (Donepezil Hcl 5 Mg Tablet) 5 mg PO DAILY [facility] Last Admin: 11/17/23 08:40 Dose: 5 mg Fluticasone Propionate (Fluticasone Propionate Nasal 16 Gm [place]) 1 spray NOSTRIL-B BID [facility] Last Admin: 11/17/23 08:42 Dose: 1 spray Hydrochlorothiazide (Hydrochlorothiazide 12.5 Mg Tablet) 12.5 mg PO DAILY [facility]; Protocol Last Admin: 11/17/23 08:40 Dose: 12.5 mg Hydroxyzine HCl (Hydroxyzine Hcl 25 Mg Tablet) 25 mg PO Q6H PRN PRN Reason: Anxiety Last Admin: 11/15/23 21:01 Dose: 25 mg Insulin Glargine (Insulin Glargine,Hum.Rec.Anlog 100 Unit/Ml 10 Ml Vial) 30 unit SUBCUT BEDTIME [facility] Last Admin: 11/16/23 20:57 Dose: 30 unit Insulin Human Lispro (Insulin Lispro 100 Unit/Ml 3 Ml Vial) 0 unit SUBCUT TIDAC [facility]; Protocol Last Admin: 11/17/23 06:35 Dose: Not Given Lactase (Lactase Tablet) 1 tab PO TIDWM [facility] Last Admin: 11/17/23 08:39 Dose: 1 tab Loratadine (Loratadine 10 Mg Tablet) 10 mg PO DAILY PRN PRN Reason: allergies Last Admin: 11/16/23 12:51 Dose: 10 mg Magnesium Hydroxide (Milk Of Magnesia 30 Ml Oral.Susp) 30 ml PO DAILY PRN PRN Reason: Constipation Metoprolol Succinate (Metoprolol Succinate Er 25 Mg Tab.Er.24h) 25 mg PO DAILY [facility]; Protocol Last Admin: 11/17/23 08:40 Dose: 25 mg Multivitamins/Vitamin C (Multivitamin Tablet) 1 tab PO DAILY [facility] Last Admin: 11/17/23 08:39 Dose: 1 tab Naproxen (Naproxen 250 Mg Tablet) 250 mg PO BID PRN PRN Reason: back pain Omeprazole (Omeprazole 20 Mg Capsule.Dr) 20 mg PO BID@0630,1630 [facility] Last Admin: 11/17/23 06:07 Dose: 20 mg Oxybutynin Chloride (Oxybutynin Chloride Er 5 Mg Tab.Er.24) 10 mg PO DAILY [facility] Last Admin: 11/17/23 08:39 Dose: 10 mg Potassium Chloride (Potassium Chloride Packet 20 Meq Packet) 20 meq PO ONCE [facility] Last Admin: 11/06/23 22:30 Dose: 20 meq Quetiapine Fumarate (Quetiapine Fumarate 25 Mg Tablet) 12.5 mg PO BID@0900,1700 [facility] Last Admin: 11/17/23 08:39 Dose: 12.5 mg Quetiapine Fumarate (Quetiapine Fumarate 50 Mg Tablet) 50 mg PO BEDTIME [facility] Last Admin: 11/16/23 20:53 Dose: 50 mg Trazodone HCl (Trazodone Hcl 50 Mg Tablet) 50 mg PO BEDTIME MRX1 PRN PRN Reason: Insomnia Last Admin: 11/16/23 20:54 Dose: 50 mg Valsartan (Valsartan 80 Mg Tablet) 80 mg PO DAILY [facility]; Protocol Last Admin: 11/17/23 08:39 Dose: 80 mg Allergies Allergies Allergy/AdvReac Type Severity Reaction Status Date / Time Sulfa (Sulfonamide Allergy Severe DIFFICULTY Verified 09/18/23 21:02 Antibiotics) BREATHING [SULFA (SULFONAMIDE ANTIBIOTICS)] cephalexin [From KEFLEX] Allergy Intermediate RASH,HIVES Verified 09/18/23 21:02 amoxicillin [AMOXICILLIN] Allergy Unknown DENIES Verified 09/18/23 21:02 THIS ALLERGY 03/28/2018 penicillin V Allergy Unknown Unknown Verified 09/18/23 21:02 sumatriptan [From IMITREX] AdvReac Severe HEART Verified 09/18/23 21:02 PALPITATIONS topiramate [From TOPAMAX] AdvReac Severe AGITATION Verified 09/18/23 21:02 Assessment & Plan Assessment & Plan (1) Dementia: Qualifiers: Dementia behavioral or psychological symptom: with agitation Dementia severity: moderate Dementia type: Lewy body dementia Qualified Code(s): G31.83 - Neurocognitive disorder with Lewy bodies; F02.B11 - Dementia in other diseases classified elsewhere, moderate, with agitation Status: Acute Code(s): F03.90 - Unspecified dementia, unspecified severity, without behavioral disturbance, psychotic disturbance, mood disturbance, and anxiety Plan The patient is a 67-year-old female , with a past history of dementia with prior admissions into the hospital for psychosis and agitation transfer from the nursing home facility to the crisis team due to agitation. She tried to run away and she was brought by the police department to the emergency room. While she was in the ED a UTI was diagnosed and she had been treated since then. The patient is a very poor historian, confused but easily redirectable. Plan 1. Gather collateral information. The patient is a very poor historian unable to provide details. We will try to contact her family and find out details of the admission. 2. Continue with medical treatment. 3. Continue with antibiotics. 4. 15 minutes checks since the patient had been able to contract for safety. 5. Reassessment with results. 11/08: appears more linear and settled than earlier in her stay. continue current mgmt. requesting discharge. 11/11/2023: No changes to current treatment plan. 11/11 will file due to safety concerns in terms of her ability to care for herself. called unable to reach or leave message. 11/12 continue tx 11/13 continue tx. She does have bed at [facility]. 11/14 continue tx. 11/15 continue tx. Reason for continued inpatient stay Substantial Risk for: inability to function Time Spent With Patient Time: Total time managing care of this patient today ____ minutes.
[2023-11-17 11:26] LABS: Glucose, Whole Blood 126 mg/dL (60-115)
[2023-11-17] MEDS: Loratadine 10 MG TABLET PO (13:32)
[2023-11-17 16:15] LABS: Glucose, Whole Blood 166 mg/dL (60-115)
[2023-11-17] MEDS: Insulin Lispro 100 UNIT/ML 3 ML VIAL SUBCUT (16:47)
[2023-11-17 18:00] VITALS: BP 134/67; PULSE 87; RESP 18; TEMP 36; O2SAT 98
[2023-11-17 20:11] LABS: Glucose, Whole Blood 230 mg/dL (60-115)
[2023-11-17] MEDS: QUEtiapine Fumarate 50 MG TABLET PO (20:54)
[2023-11-17] MEDS: Insulin Glargine,Hum.rec.anlog 100 UNIT/ML 10 ML VIAL 30 UNIT SUBCUT (20:56)
[2023-11-17] MEDS: traZODone HCL 50 MG TABLET PO (21:40)
[2023-11-17] MEDS: hydrOXYzine HCL 25 MG TABLET PO (21:40)
[2023-11-18] MEDS: Omeprazole 20 MG CAPSULE.DR PO ×2 (06:08→16:31)
[2023-11-18 06:28] LABS: Glucose, Whole Blood 185 mg/dL (60-115)
[2023-11-18 08:22] VITALS: BP 138/63; PULSE 85; RESP 17; TEMP 36; O2SAT 98
[2023-11-18] MEDS: Baclofen 10 MG TABLET PO ×3 (08:23→20:58)
[2023-11-18] MEDS: amLODIPine Besylate 10 MG TABLET PO (08:23)
[2023-11-18] MEDS: Aspirin Enteric Coated 81 MG TABLET.DR PO (08:23)
[2023-11-18] MEDS: Metoprolol Succinate ER 25 MG TAB.ER.24H PO (08:23)
[2023-11-18] MEDS: oxyBUTYnin chloride ER 5 MG TAB.ER.24 10 MG PO (08:23)
[2023-11-18] MEDS: hydroCHLOROthiazide 12.5 MG TABLET PO (08:23)
[2023-11-18] MEDS: Donepezil HCl 5 MG TABLET PO (08:24)
[2023-11-18] MEDS: Valsartan 80 MG TABLET PO (08:24)
[2023-11-18] MEDS: Atorvastatin Calcium 80 MG TABLET PO (08:24)
[2023-11-18] MEDS: QUEtiapine Fumarate 25 MG TABLET 12.5 MG PO ×2 (08:24→16:32)
[2023-11-18] MEDS: Multivitamin TABLET 1 TAB PO (08:24)
[2023-11-18] MEDS: Lactase TABLET 1 TAB PO ×3 (08:24→16:31)
[2023-11-18] MEDS: Insulin Lispro 100 UNIT/ML 3 ML VIAL SUBCUT ×3 (08:28→16:30)
[2023-11-18] MEDS: Fluticasone Propionate Nasal 16 GM SPRAY 1 SPRAY NOSTRIL-B ×2 (09:18→20:59)
[2023-11-18 11:15] LABS: Glucose, Whole Blood 164 mg/dL (60-115)
[2023-11-18] MEDS: Loratadine 10 MG TABLET PO (13:07)
--- NOTE | 2023-11-18 13:40 | P.PNPSI_ITS ---
Subjective Subjective Date of Service: 11/18/23 Reason For Visit: agitation threats of harm Subjective Notes: Section 7 Interim History: Pt sleeping through the night. No behavioral concerns. She is taking medications as prescribed pending placement. Review of Systems Review of Systems nothing acute Yes all other systems are reviewed and are negative Mental Status Exam Mental Status Exam Patient Appearance: Well Grooomed Patient Orientation: Person Level of Consciousness: Awake and Appropriate Patient Behavior: Guarded and Passive Mood Description: Calm Affect Description: Constricted Patient Cognition Impaired: Yes Ability to Follow Directions: Fair Speech Pattern: Clear Diagnostics Vital Signs (24Hr): Vital Signs - 24 hr 11/17/23 18:00 11/18/23 08:22 Temperature 96.8 F 96.8 F Pulse Rate 87 85 Respiratory Rate 18 17 Blood Pressure 134/67 138/63 Pulse Oximetry 98 98 Oxygen Delivery Method Room Air Room Air BMI result Body Mass Index 33.7 Labs 11/06/23 16:46 11/08/23 07:58 Labs: Laboratory Results - last 48 hr 11/16/23 11/16/23 11/17/23 16:03 20:03 06:07 POC Glucose 165 H 208 H 150 H 11/17/23 11/17/23 11/17/23 11:19 16:11 20:01 POC Glucose 126 H 166 H 230 H 11/18/23 11/18/23 06:08 11:06 POC Glucose 185 H 164 H Medications Medications Current Medications Acetaminophen (Acetaminophen 325 Mg Tablet) 650 mg PO Q6H PRN PRN Reason: Headache/Pain Mild Scale (1-3) Last Admin: 11/15/23 14:10 Dose: 650 mg Al Hydroxide/Mg Hydroxide (Magnesium Hydrox/Alum Hydrox 30 Ml Oral.Susp) 30 ml PO Q6H PRN PRN Reason: Heartburn/Nausea Amlodipine Besylate (Amlodipine Besylate 10 Mg Tablet) 10 mg PO DAILY [facility]; Protocol Last Admin: 11/18/23 08:23 Dose: 10 mg Aspirin (Aspirin Enteric Coated 81 Mg Tablet.) 81 mg PO DAILY [facility] Last Admin: 11/18/23 08:23 Dose: 81 mg Atorvastatin Calcium (Atorvastatin Calcium 80 Mg Tablet) 80 mg PO DAILY [facility] Last Admin: 11/18/23 08:24 Dose: 80 mg Baclofen (Baclofen 10 Mg Tablet) 10 mg PO TID [facility] Last Admin: 11/18/23 08:23 Dose: 10 mg Donepezil HCl (Donepezil Hcl 5 Mg Tablet) 5 mg PO DAILY [facility] Last Admin: 11/18/23 08:24 Dose: 5 mg Fluticasone Propionate (Fluticasone Propionate Nasal 16 Gm [place]) 1 spray NOSTRIL-B BID [facility] Last Admin: 11/18/23 09:18 Dose: 1 spray Hydrochlorothiazide (Hydrochlorothiazide 12.5 Mg Tablet) 12.5 mg PO DAILY [facility]; Protocol Last Admin: 11/18/23 08:23 Dose: 12.5 mg Hydroxyzine HCl (Hydroxyzine Hcl 25 Mg Tablet) 25 mg PO Q6H PRN PRN Reason: Anxiety Last Admin: 11/17/23 21:40 Dose: 25 mg Insulin Glargine (Insulin Glargine,Hum.Rec.Anlog 100 Unit/Ml 10 Ml Vial) 30 unit SUBCUT BEDTIME [facility] Last Admin: 11/17/23 20:56 Dose: 30 unit Insulin Human Lispro (Insulin Lispro 100 Unit/Ml 3 Ml Vial) 0 unit SUBCUT TIDAC [facility]; Protocol Last Admin: 11/18/23 11:33 Dose: 2 unit Lactase (Lactase Tablet) 1 tab PO TIDWM [facility] Last Admin: 11/18/23 11:35 Dose: 1 tab Loratadine (Loratadine 10 Mg Tablet) 10 mg PO DAILY PRN PRN Reason: allergies Last Admin: 11/18/23 13:07 Dose: 10 mg Magnesium Hydroxide (Milk Of Magnesia 30 Ml Oral.Susp) 30 ml PO DAILY PRN PRN Reason: Constipation Metoprolol Succinate (Metoprolol Succinate Er 25 Mg Tab.Er.24h) 25 mg PO DAILY [facility]; Protocol Last Admin: 11/18/23 08:23 Dose: 25 mg Multivitamins/Vitamin C (Multivitamin Tablet) 1 tab PO DAILY [facility] Last Admin: 11/18/23 08:24 Dose: 1 tab Naproxen (Naproxen 250 Mg Tablet) 250 mg PO BID PRN PRN Reason: back pain Omeprazole (Omeprazole 20 Mg Capsule.Dr) 20 mg PO BID@0630,1630 [facility] Last Admin: 11/18/23 06:08 Dose: 20 mg Oxybutynin Chloride (Oxybutynin Chloride Er 5 Mg Tab.Er.24) 10 mg PO DAILY [facility] Last Admin: 11/18/23 08:23 Dose: 10 mg Potassium Chloride (Potassium Chloride Packet 20 Meq Packet) 20 meq PO ONCE [facility] Last Admin: 11/06/23 22:30 Dose: 20 meq Quetiapine Fumarate (Quetiapine Fumarate 25 Mg Tablet) 12.5 mg PO BID@0900,1700 [facility] Last Admin: 11/18/23 08:24 Dose: 12.5 mg Quetiapine Fumarate (Quetiapine Fumarate 50 Mg Tablet) 50 mg PO BEDTIME [facility] Last Admin: 11/17/23 20:54 Dose: 50 mg Trazodone HCl (Trazodone Hcl 50 Mg Tablet) 50 mg PO BEDTIME MRX1 PRN PRN Reason: Insomnia Last Admin: 11/17/23 21:40 Dose: 50 mg Valsartan (Valsartan 80 Mg Tablet) 80 mg PO DAILY [facility]; Protocol Last Admin: 11/18/23 08:24 Dose: 80 mg Allergies Allergies Allergy/AdvReac Type Severity Reaction Status Date / Time Sulfa (Sulfonamide Allergy Severe DIFFICULTY Verified 09/18/23 21:02 Antibiotics) BREATHING [SULFA (SULFONAMIDE ANTIBIOTICS)] cephalexin [From KEFLEX] Allergy Intermediate RASH,HIVES Verified 09/18/23 21:02 amoxicillin [AMOXICILLIN] Allergy Unknown DENIES Verified 09/18/23 21:02 THIS ALLERGY 03/28/2018 penicillin V Allergy Unknown Unknown Verified 09/18/23 21:02 sumatriptan [From IMITREX] AdvReac Severe HEART Verified 09/18/23 21:02 PALPITATIONS topiramate [From TOPAMAX] AdvReac Severe AGITATION Verified 09/18/23 21:02 Assessment & Plan Assessment & Plan (1) Dementia: Qualifiers: Dementia behavioral or psychological symptom: with agitation Dementia severity: moderate Dementia type: Lewy body dementia Qualified Code(s): G31.83 - Neurocognitive disorder with Lewy bodies; F02.B11 - Dementia in other diseases classified elsewhere, moderate, with agitation Status: Acute Code(s): F03.90 - Unspecified dementia, unspecified severity, without behavioral disturbance, psychotic disturbance, mood disturbance, and anxiety Plan The patient is a 67-year-old female , with a past history of dementia with prior admissions into the hospital for psychosis and agitation transfer from the alf facility to the crisis team due to agitation. She tried to run away and she was brought by the police department to the emergency room. While she was in the ED a UTI was diagnosed and she had been treated since then. The patient is a very poor historian, confused but easily redirectable. Plan 1. Gather collateral information. The patient is a very poor historian unable to provide details. We will try to contact her family and find out details of the admission. 2. Continue with medical treatment. 3. Continue with antibiotics. 4. 15 minutes checks since the patient had been able to contract for safety. 5. Reassessment with results. 11/08: appears more linear and settled than earlier in her stay. continue current mgmt. requesting discharge. 11/11/2023: No changes to current treatment plan. 11/11 will file due to safety concerns in terms of her ability to care for herself. called unable to reach or leave message. 11/12 continue tx 11/13 continue tx. She does have bed at [facility]. 11/14 continue tx. 11/15 continue tx. Reason for continued inpatient stay Substantial Risk for: inability to function Time Spent With Patient Time: Total time managing care of this patient today ____ minutes.
[2023-11-18 16:21] LABS: Glucose, Whole Blood 242 mg/dL (60-115)
[2023-11-18 18:00] VITALS: BP 122/66; PULSE 78; RESP 18; TEMP 36.4; O2SAT 99
[2023-11-18 19:57] LABS: Glucose, Whole Blood 285 mg/dL (60-115)
[2023-11-18] MEDS: hydrOXYzine HCL 25 MG TABLET PO (20:58)
[2023-11-18] MEDS: traZODone HCL 50 MG TABLET PO (20:58)
[2023-11-18] MEDS: QUEtiapine Fumarate 50 MG TABLET PO (20:58)
[2023-11-18] MEDS: Insulin Glargine,Hum.rec.anlog 100 UNIT/ML 10 ML VIAL 30 UNIT SUBCUT (20:59)
[2023-11-19] MEDS: Omeprazole 20 MG CAPSULE.DR PO (05:08)
[2023-11-19 06:45] LABS: Glucose, Whole Blood 229 mg/dL (60-115)
[2023-11-19] MEDS: Insulin Lispro 100 UNIT/ML 3 ML VIAL SUBCUT ×2 (07:57→11:42)
[2023-11-19 08:09] VITALS: BP 118/62; PULSE 89; RESP 18; TEMP 36.4; O2SAT 97
[2023-11-19] MEDS: Atorvastatin Calcium 80 MG TABLET PO (08:32)
[2023-11-19] MEDS: Metoprolol Succinate ER 25 MG TAB.ER.24H PO (08:33)
[2023-11-19] MEDS: oxyBUTYnin chloride ER 5 MG TAB.ER.24 10 MG PO (08:33)
[2023-11-19] MEDS: Donepezil HCl 5 MG TABLET PO (08:33)
[2023-11-19] MEDS: Valsartan 80 MG TABLET PO (08:33)
[2023-11-19] MEDS: hydroCHLOROthiazide 12.5 MG TABLET PO (08:33)
[2023-11-19] MEDS: Baclofen 10 MG TABLET PO (08:33)
[2023-11-19] MEDS: amLODIPine Besylate 10 MG TABLET PO (08:33)
[2023-11-19] MEDS: Multivitamin TABLET 1 TAB PO (08:34)
[2023-11-19] MEDS: Aspirin Enteric Coated 81 MG TABLET.DR PO (08:34)
[2023-11-19] MEDS: Lactase TABLET 1 TAB PO ×2 (08:34→11:42)
[2023-11-19] MEDS: QUEtiapine Fumarate 25 MG TABLET 12.5 MG PO (08:34)
[2023-11-19] MEDS: Fluticasone Propionate Nasal 16 GM SPRAY 1 SPRAY NOSTRIL-B (08:37)
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
[2023-11-19 11:10] LABS: Glucose, Whole Blood 178 mg/dL (60-115)
== END 2023-11-19 13:10 | disposition home or self-care (01) | DRG 57 ==
LOC: HO.ED 20:59 → HO.PM5 11-07 15:57 → HO.PGERI 11-08 11:43
PROVIDERS: Physician Assistant Medical; Admitting Provider Psychiatry & Neurology Psychiatry; Emergency Provider Emergency Medicine; PCP Internal Medicine; Visit Provider Psychiatry & Neurology Psychiatry
DX: G31.83 Neurocognitive disorder with Lewy bodies (principal); N39.0 Urinary tract infection, site not specified; F05 Delirium due to known physiological condition; F02.80 Dementia in other diseases classified elsewhere, unspecified severity, without behavioral disturbance, psychotic disturbance, mood disturbance, and anxiety; E87.6 Hypokalemia; Z20.822 Contact with and (suspected) exposure to COVID-19; Z79.4 Long term (current) use of insulin; Z79.51 Long term (current) use of inhaled steroids; Z79.82 Long term (current) use of aspirin; Z79.899 Other long term (current) drug therapy
CPT/HCPCS: 0241U; 36415; 80048; 80053; 80061; 80076; 80307; 81001; 82607; 82746; 82947; 83690; 83735; 84132; 84439; 84443; 85025; 86140; 87086; 93005; 99285

== ENCOUNTER → 2023-11-07 08:33 | Outpatient (BNV) | payer MEDICARE, SELFPAY | PROVIDERS: Admitting Provider Psychiatry & Neurology Psychiatry; Emergency Provider Emergency Medicine; PCP Internal Medicine; Visit Provider Internal Medicine Cardiovascular Disease | DX: E87.6 Hypokalemia (principal); N39.0 Urinary tract infection, site not specified; R94.31 Abnormal electrocardiogram [ECG] [EKG]; R45.850 Homicidal ideations | CPT/HCPCS: 93010 ==

== ENCOUNTER → 2023-11-07 14:47 | Outpatient (BNV) | payer MEDICARE, SELFPAY | PROVIDERS: Admitting Provider Psychiatry & Neurology Psychiatry; Emergency Provider Emergency Medicine; PCP Internal Medicine; Visit Provider Psychiatry & Neurology Psychiatry | DX: G31.83 Neurocognitive disorder with Lewy bodies (principal); F02.B11 Dementia in other diseases classified elsewhere, moderate, with agitation | CPT/HCPCS: 90792; 99231; 99232; 99238 ==

== ENCOUNTER 2023-11-20 14:24 | Emergency (ER) | payer MEDICARE, SELFPAY ==
[2023-11-20 14:36] VITALS: BP 115/65; PULSE 97; RESP 14; TEMP 37.3; O2SAT 96; BMI 39.1
--- NOTE | 2023-11-20 14:49 | ED.GENADULT ---
HPI - General Adult General Chief complaint: Psychiatric Symptoms Stated complaint: TRYING TO ESCAPE FACILITY Time Seen by Provider: 11/20/23 14:47 Source: patient and EMS Mode of arrival: EMS Limitations: other (poor historian. ) History of Present Illness HPI narrative: 67-year-old female history of obesity, aspiration pneumonia w/ respiratory faliure requiring intubation, dchf, IDDM, depression, delirium, lewy body dementia, restrictive lung disease, hyperlipidemia, IBS, diabetes presenting for hopes of escaping [place] care was placed on a section 12 ( for not wanting her meds and wandering and trying to escape facility). Not suicidal or homicidal. Does not like it there wants to live with sister but her wont let her. No medical complaints. No hallucinations. No homicidal ideation. Denies chest pain, shortness of breath fevers, chills, nausea, vomiting, abdominal pain, headache, vision changes, dizziness and weakness. Related Data Home Medications Medication Instructions Recorded Confirmed multivitamin 1 tab PO QAM 09/19/21 11/06/23 insulin lispro 100 unit/mL 8 - 24 unit subcut TID 08/14/23 11/06/23 subcutaneous pen (Humalog KwikPen (U-100) Insulin) alogliptin 6.25 mg tablet 6.25 mg PO DAILY 11/06/23 11/06/23 oxybutynin chloride 10 mg 10 mg PO DAILY 11/06/23 11/06/23 tablet,extended release 24 hr Previous Rx's Medication Instructions Recorded insulin glargine 100 unit/mL 30 unit (0.3 mL) subcut BEDTIME 30 09/06/23 subcutaneous solution (Lantus days #9 mL U-100 Insulin) amlodipine 10 mg tablet 10 mg PO DAILY #0 tabs 11/19/23 aspirin 81 mg tablet,delayed 81 mg PO DAILY #0 tabs 11/19/23 release atorvastatin 80 mg tablet 80 mg PO DAILY #0 tabs 11/19/23 baclofen 10 mg tablet 10 mg PO TID #0 tabs 11/19/23 donepezil 5 mg tablet 5 mg PO DAILY #0 tabs 11/19/23 fluticasone propionate 50 1 spray intranasal BID #0 grams 11/19/23 mcg/actuation nasal spray,suspension hydrochlorothiazide 12.5 mg tablet 12.5 mg PO DAILY #0 tabs 11/19/23 insulin lispro 100 unit/mL See Protocol subcut TIDAC #0 mL 11/19/23 subcutaneous solution (Admelog U-100 Insulin lispro) loratadine 10 mg tablet 10 mg PO DAILY PRN allergies #0 11/19/23 tabs metoprolol succinate 25 mg 25 mg PO DAILY #0 tabs 11/19/23 tablet,extended release 24 hr omeprazole 20 mg capsule,delayed 20 mg PO BID@0630,1630 #0 caps 11/19/23 release potassium chloride 20 mEq oral 20 meq PO ONCE #0 ea 11/19/23 packet quetiapine 25 mg tablet 12.5 mg (1/2 x 25 mg) PO 11/19/23 BID@0900,1700 #0 tabs quetiapine 50 mg tablet 50 mg PO BEDTIME #0 tabs 11/19/23 trazodone 50 mg tablet 50 mg PO BEDTIME MRX1 PRN Insomnia 11/19/23 #0 tabs valsartan 80 mg tablet 80 mg PO DAILY #0 tabs 11/19/23 levofloxacin 500 mg tablet 500 mg PO DAILY 7 days #7 tabs 11/20/23 Allergies Allergy/AdvReac Type Severity Reaction Status Date / Time Sulfa (Sulfonamide Allergy Severe DIFFICULTY Verified 09/18/23 21:02 Antibiotics) BREATHING [SULFA (SULFONAMIDE ANTIBIOTICS)] cephalexin [From KEFLEX] Allergy Intermediate RASH,HIVES Verified 09/18/23 21:02 amoxicillin [AMOXICILLIN] Allergy Unknown DENIES Verified 09/18/23 21:02 THIS ALLERGY 03/28/2018 penicillin V Allergy Unknown Unknown Verified 09/18/23 21:02 sumatriptan [From IMITREX] AdvReac Severe HEART Verified 09/18/23 21:02 PALPITATIONS topiramate [From TOPAMAX] AdvReac Severe AGITATION Verified 09/18/23 21:02 Review of Systems Review of Systems: Yes all other systems are reviewed and are negative PMFSH Past Medical History Attestation statement: The following information was validated with the patient. Source: old records reviewed and nursing notes reviewed Medical History Depression Hyperglycemia due to diabetes mellitus Bacteremia Toxic metabolic encephalopathy Hypernatremia Bradycardia Shock Acute hypotension Encephalopathy Altered mental status Stroke due to stenosis of posterior cerebral artery Cortical blindness Restrictive lung disease Nocturnal hypoxemia Dyspnea on exertion Obesity (BMI 30-39.9) Anxiety Orthopnea Myalgia and myositis Essential hypertension Type 2 diabetes mellitus with unspecified complications Asthma Dementia, Lewy body with behavior disturbance Diabetes HTN (hypertension) UTI (urinary tract infection) CHF (congestive heart failure) Neuropathy Diabetic acetonemia Surgical History History of pancreatic surgery History of arthroscopy of both knees History of appendectomy History of hysterectomy Family History Family History Father No problems noted. Mother Angina at rest Sister Lung cancer Colon cancer COPD (chronic obstructive pulmonary disease) Social History Social History Household Members: Other Housing: Skilled Nursing Do you presently have visiting nurse or other home services: No Unable to assess alcohol history related to: Unknown Alcohol intake: never Comment: sitter in room Patient Tobacco Use Status: Never used Tobacco e-Cigarette/Vaping Use: Never Used Second Hand Smoke Exposure: No Advance Directives Date on File: 07/27/20 service: No Current occupational status: disabled Current occupation: right handed Sexual orientation: Straight/Heterosexual Physical Exam ED Vital Signs: BMI result Body Mass Index 39.1 vss Appearance: Alert.? Oriented X3.? No acute distress.? Head: Normocephalic, atraumatic, no step-offs or deformities Eyes: Pupils equal, round and reactive to light.? Neck: Normal inspection.? Neck supple.? CVS: Normal heart rate and rhythm.? Pulses normal.? Respiratory: No respiratory distress.? Breath sounds normal.? Abdomen: Soft and nontender.? Skin: Skin warm and dry.? Normal skin color.? Normal skin turgor.? Extremities: No lower extremity edema.? No calf ttp. 5/5 strength to bilateral upper and lower extremities Neuro: Oriented X 3.? No motor deficit.? No sensory deficit. CN 2-12 intact Course Reevaluation(s) Reevaluation #1: Not SI not HI. No medical complaints. Discussed case w/ psych. No indication for involuntary psych admission per LEEANNE Garcia Patient presented like this yesterday, same complaint. No indication for section 12. Recommendation for patient to return to [facility] when medically cleared where they can determine if she requires higher level of care. No benefit in staying in the ED for that to be done. Time: 15:18 Reevaluation #2: UA -- evident infection, patient was just on macrobid 100 mg bid, allergic to amox and cephalexin. Levofloxacin ordered po discused w/ my attending who agrees with me because patient has allergy to penicillin as well as Keflex, looking at previous susceptibilities on 08/14/2023 patient had an indeterminate response to Macrobid therefore it is possible that this antibiotic was not working. Time: 15:26 Reevaluation #3: Patient had labs a few days ago no need for repeat labs ( my attending agrees with this plan), no fever, hypotension or tachycardia. Unlikely septic from UTI. Will obtain an EKG as I am starting Levaquin to ensure QTC is normal as she is on multiple psych meds. Patient is not delirious she is alert and oriented x3, will discharge her on Levaquin. Educated patient on diagnosis and treatment plan, answered all question, patient verbalizes understanding. At this time patient will be discharged home, advised to return with new or worsening symptoms. Educated on worrisome signs and symptoms and when to return. At this time I feel comfortable discharge home. Time: 15:29 Medical Decision Making Medical Decision Making [facility] Narrative: 1453 67-year-old female presents on a section 12 from [facility], patient is trying to escape facility. She has not suicidal or homicidal. She is just unhappy there. Physical examination benign. History and physical exam concerning for possible anxiety unlikely bipolar, schizophrenia. No SI or HI. Unlikely metabolic derangments. Plan- labs. medical clearance. care team vs case managment Differential Diagnosis Differential Diagnoses: The differential diagnosis associated with the presentation includes History and physical exam concerning for possible anxiety unlikely bipolar, schizophrenia. No SI or HI. Unlikely metabolic derangments. Admission/Observation Consideration of admission/observation: Escalation of care including admission/observation considered Consult Healthcare Provider Management of the patient was discussed with: [employer] (psych ) Lab Data [facility] Lab Attestation statement: I reviewed the patient's lab results. Labs: Lab Results 11/20/23 Range/Units 14:49 Urine Color Dark Yellow Urine Appearance Cloudy Urine pH 6.0 (5.0-9.0) Ur Specific [place] 1.020 (1.005-1.025) Urine Protein Trace (Neg-Trace) mg/dL Urine Glucose (UA) Negative (Negative) mg/dL Urine Ketones Trace (Negative) mg/dL Urine Blood Negative (Negative) Urine Nitrite Positive H (Negative) Ur Leukocyte Esterase Moderate (2+) H (Negative) Urine RBC 0-2 (0-2) /HPF Urine WBC >50 H (0-5) /HPF Ur Squamous Epith Cells >20 (0-2) /HPF Urine Bacteria 4+ (None Seen) Hyaline Casts 3-5 (0-2) /LPF Urine Opiates Screen Not Detected (Not Detect) Urine Fentanyl Screen Not Detected (Not Detect) Ur Barbiturates Screen Not Detected (Not Detect) Ur Phencyclidine Scrn Not Detected (Not Detect) Ur Amphetamines Screen Not Detected (Not Detect) U Benzodiazepines Scrn Not Detected (Not Detect) Urine Cocaine Screen Not Detected (Not Detect) U Marijuana (THC) Screen Not Detected (Not Detect) COVID-19 (FLOR) Negative (Negative) COVID-19 Clin Com See Note External Record Review External record reviewed: Inpatient record, Office record, Outpatient record, Prior outpatient labs and Primary care record Chronic Conditions Patient?s care impacted by: Other (Obesity, dementia, delirium, restrictive lung disease, hyperlipidemia, IBS, GARY,) Critical Care Time Critical Care Time Critical Care Time: Yes Total Critical Care Time: 35 Attestation: I attest to this time spent taking care of the patient, obtaining history, physical, reviewing labs, imaging, speaking to my attending, speaking to specialist. Discharge Plan Discharge Clinical Impression: Anxiety, Dementia, Acute UTI Patient Disposition: Xfer Other Transfer Details: [facility] Instructions: Urinary Tract Infection in Women (ED), Anxiety (ED) Additional Instructions: Take your medications as prescribed. If you were prescribed antibiotics today, it is important that you take your medication to their entirety, do not skip any doses, do not finish them early. Follow-up with your primary care provider this week. Return to the emergency department with new or worsening symptoms. Such as fevers, chills, chest pain, shortness of breath, nausea, vomiting, dizziness, headache, vision changes, lethargy In case of emergency call 911 Prescriptions: New levofloxacin 500 mg tablet 500 mg PO DAILY 7 Days Qty: 7 0RF No Action multivitamin Tablet 1 tab PO QAM insulin lispro [Humalog KwikPen Insulin] 100 unit/mL insulin pen 8 - 24 unit subcut TID insulin glargine [Lantus U-100 Insulin] 100 unit/mL Solution 30 unit subcut BEDTIME 30 Days Qty: 9 0RF alogliptin 6.25 mg tablet 6.25 mg PO DAILY oxybutynin chloride 10 mg tablet extended release 24hr 10 mg PO DAILY quetiapine 25 mg Tablet 12.5 mg PO BID@0900,1700 Qty: 0 0RF atorvastatin 80 mg Tablet 80 mg PO DAILY Qty: 0 0RF donepezil 5 mg Tablet 5 mg PO DAILY Qty: 0 0RF trazodone 50 mg Tablet 50 mg PO BEDTIME MRX1 PRN (Reason: Insomnia) Qty: 0 0RF valsartan 80 mg Tablet 80 mg PO DAILY Qty: 0 0RF Protocol: Hold for SBP< HOLD for SBP < : 90 aspirin 81 mg Tablet,Delayed Release (Dr/Ec) 81 mg PO DAILY Qty: 0 0RF potassium chloride 20 mEq Packet 20 meq PO ONCE Qty: 0 0RF baclofen 10 mg Tablet 10 mg PO TID Qty: 0 0RF amlodipine 10 mg Tablet 10 mg PO DAILY Qty: 0 0RF Protocol: Hold for SBP< HOLD for SBP < : 90 metoprolol succinate 25 mg Tablet Extended Release 24 Hr 25 mg PO DAILY Qty: 0 0RF Protocol: Hold for SBP/HR < HOLD for SBP < : 90 HOLD for HR < : 60 loratadine 10 mg Tablet 10 mg PO DAILY PRN (Reason: allergies) Qty: 0 0RF quetiapine 50 mg Tablet 50 mg PO BEDTIME Qty: 0 0RF hydrochlorothiazide 12.5 mg Tablet 12.5 mg PO DAILY Qty: 0 0RF Protocol: Hold for SBP< HOLD for SBP < : 90 omeprazole 20 mg Capsule,Delayed Release(Dr/Ec) 20 mg PO BID@0630,1630 Qty: 0 0RF fluticasone propionate 50 mcg/actuation [place],Suspension 1 spray intranasal BID Qty: 0 0RF insulin lispro [Admelog U-100 Insulin lispro] 100 unit/mL Solution See Protocol subcut TIDAC Qty: 0 0RF Protocol: Insulin Correction Scale Less than or equal to 110 ---- Give (units): 0 111 to 150 Give (units): 0 151 to 200 Give (units): 2 201 to 250 Give (units): 4 251 to 300 Give (units): 6 301 to 350 Give (units): 8 Greater than 350 Give (units): 10 Call MD if Blood Glucose > : 350 Interventions: [place]-Suicide Risk Severity Scale Last Done: 11/20/23 14:41
--- NOTE | 2023-11-20 15:05 | PC.NURSE ---
PA at bedside talking with patient, PA to speak to case management for discharge.
[2023-11-20 15:07] LABS: Appearance Urine Cloudy; Color Urine Dark Yellow; Glucose Urine UA Negative (Negative); Leukocyte Esterase Urine Moderate (2+) (Negative); Nitrite Urine Positive (Negative); UMIC TRIGGER UACC YES; Urine Blood Negative (Negative); Urine Ketones Trace mg/dL (Negative); Urine Protein Trace mg/dL (Neg-Trace)
[2023-11-20 15:08] LABS: Bacteria Urine 4+ (None Seen); RBC Urine 0-2 /HPF (0-2); Squamous Epithelial Cell Urine >20 /HPF (0-2); UACC Culture Trigger YES; WBC Urine >50 /HPF (0-5)
[2023-11-20 15:11] LABS: COVID-19 Test Negative (Negative); IDNOW Serial# 152EDE1D
[2023-11-20 15:21] LABS: Amphetamine Screen Urine Not Detected (Not Detect); Barbiturates, Urine Not Detected (Not Detect); Benzodiazepines Screen Urine Not Detected (Not Detect); Cannabinoid Screen Urine Not Detected (Not Detect); Cocaine Screen Urine Not Detected (Not Detect); Fentanyl, urine Not Detected (Not Detect); Opiate Screen Urine Not Detected (Not Detect); Phencyclidine Screen Urine Not Detected (Not Detect)
[2023-11-20 15:25] VITALS: RESP 16
--- NOTE | 2023-11-20 15:26 | PC.NURSE ---
patient ambulating with steady gait around BH pod, requiring no assistive devices. Pt is calm and cooperative, alert and oriented x4, skin pwd, no apparent distress noted. Patient reports to this RN that she does not want to be at [facility] anymore
--- NOTE | 2023-11-20 15:28 | ECG_ITS ---
Test Reason : CHECK PROLONG QT Blood Pressure : / mmHG Vent. Rate : 070 BPM Atrial Rate : 070 BPM P-R Int : 120 ms QRS Dur : 086 ms QT Int : 362 ms P-R-T Axes : 040 035 -08 degrees QTc Int : 390 ms Normal sinus rhythm Nonspecific T wave abnormality Abnormal ECG When compared with ECG of 07-NOV-2023 08:33, Nonspecific T wave abnormality has replaced inverted T waves in Anterolateral leads Referred By: Marley Wheeler Electronically Signed By:BAIRON IVY
--- NOTE | 2023-11-20 16:02 | PC.NURSE ---
This Rn attempted contact [facility] 4 times regarding Natalia's return. No answer on any of the calls
[2023-11-20] MEDS: levoFLOXacin 500 MG TABLET PO (16:22)
--- NOTE | 2023-11-20 16:29 | MHC.CM.PN ---
Addendum entered by Bisi Buenrostro 11/20/23 16:32: PTS /HCP, CHRISTOPHER, NOTIFIED VIA T/C [phone] Original Note: PT CLEARED TO RETURN TO [facility] CONFIRMS SHE IS A BED HOLD AND REQUESTED LABS BE FAXED TO THEM @ [phone] LABS FAXED AND TRANSPORT BOOKED VIA [facility] FOR 1800 HOURS
--- NOTE | 2023-11-20 17:55 | PC.NURSE ---
This Rn spoke with staff at [facility] regarding patient returning to facility. This RN informed staff that the patient had just left our facility and was heading back to theirs. This RN was transferred to the the audience development manager at [facility] however, the audience development manager did not answer the phone. This RN once again spoke with staff on third floor regarding patient. Informed staff that patient was sent with prescription for Levofloxacin and was deemed safe with no reason to admit to psych
[2023-11-20 18:00] VITALS: BP 115/65; PULSE 97; RESP 14; TEMP 37.3; O2SAT 96
== END 2023-11-20 18:01 | disposition other institution (70) ==
PROVIDERS: Emergency Provider Emergency Medicine; PCP Internal Medicine
DX: F41.1 Generalized anxiety disorder (principal); F43.0 Acute stress reaction; F03.90 Unspecified dementia, unspecified severity, without behavioral disturbance, psychotic disturbance, mood disturbance, and anxiety; N39.0 Urinary tract infection, site not specified; Z11.52 Encounter for screening for COVID-19; Z79.899 Other long term (current) drug therapy
CPT/HCPCS: 80307; 81001; 87086; 87088; 87186; 87635; 93005; 99285

== ENCOUNTER → 2023-11-20 15:28 | Outpatient (BNV) | payer MEDICARE, SELFPAY | PROVIDERS: Emergency Provider Emergency Medicine; PCP Internal Medicine; Visit Provider Internal Medicine | DX: I45.81 Long QT syndrome (principal) | CPT/HCPCS: 93010 ==

== ENCOUNTER 2024-01-30 15:12 | Emergency (ER) | payer MEDICARE, SELFPAY ==
[2024-01-30] VITALS (8 sets, daily range): BP systolic 120–178; BP diastolic 59–81; PULSE 63–88; RESP 16–18; TEMP 36.6–37.2; O2SAT 94–96; BMI 34.3
--- NOTE | 2024-01-30 15:16 | MHC.EDTECH ---
At this time this tech introduced herself to the patient. Patient is very upset and agitated. Refused vitals or any other care at this time stated I'm just gonna leave
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
--- NOTE | 2024-01-30 15:43 | MHC.EDTECH ---
At This this this tech informed the patient the doctor has order a swab and lab work, ask if it was okay to get everything done. The patient refused.
[2024-01-30] MEDS: diphenhydrAMINE HCL 50 MG/ML VIAL IM (15:51)
[2024-01-30] MEDS: Haloperidol Lactate 5 MG/ML VIAL IM (15:51)
[2024-01-30] MEDS: LORazepam 2 MG/ML VIAL IM (15:54)
--- NOTE | 2024-01-30 15:54 | ECG_ITS ---
Test Reason : EVALUATE QTC INTERVAL Blood Pressure : / mmHG Vent. Rate : 079 BPM Atrial Rate : 079 BPM P-R Int : 140 ms QRS Dur : 088 ms QT Int : 384 ms P-R-T Axes : 011 023 003 degrees QTc Int : 440 ms Normal sinus rhythm Cannot rule out Anterior infarct , age undetermined Abnormal ECG When compared with ECG of 20-NOV-2023 15:45, No significant change was found Referred By: Domenico Rendon Electronically Signed By:BAIRON IVY
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
[2024-01-30 16:12] LABS: MANUAL DIFF FLAG NO
[2024-01-30 16:16] LABS: Basophils Absolute Auto 0.1 X10*3/uL (0.0-0.2); Basophils Percent Auto 0.4 % (0-2); Eosinophils Absolute Auto 0.2 X10*3/uL (0.0-0.4); Eosinophils Percent Auto 1.3 % (0-4); Hematocrit 41.4 % (37.0-47.0); Hemoglobin 14.2 g/dl (12.0-16.0); Imm Gran Abs Auto 0.11 X10*3/uL (0.00-0.03); Imm Gran Pct Auto 0.7 % (0.0-0.4); Lymphocytes Absolute Auto 2.1 X10*3/uL (1.2-4.9); Lymphocytes Percent Auto 13.1 % (20-40); Mean Corpuscular HGB Conc 34.3 g/dl (31.0-35.0); Mean Corpuscular Hemoglobin 31.7 pg (27.0-33.0); Mean Corpuscular Volume 92.4 fL (80.0-98.0); Mean Platelet Volume 9.3 fL (9.4-12.3); Monocytes Absolute Auto 0.9 X10*3/uL (0.1-1.2); Monocytes Percent Auto 5.6 % (2-11); Neutrophils Absolute Auto 12.6 x10*3/uL (2.0-8.3); Neutrophils Percent Auto 78.9 % (45-73); Platelet Count 285 X10*3/uL (160-400); Red Blood Count 4.48 X10*6/uL (4.20-5.50); Red Cell Distribution Width 14.5 % (11.0-16.0)
[2024-01-30 16:39] LABS: Alanine Aminotransferase 17 U/L (0-31); Albumin Level 4.4 g/dL (3.5-5.0); Alkaline Phosphatase 81 U/L (39-117); Anion Gap 14 (12-20); Aspartate Amino Transferase 15 U/L (5-31); Bilirubin Total 0.3 mg/dL (0.0-1.0); Blood Urea Nitrogen 17 mg/dL (9-16); Calcium 9.8 mg/dL (8.4-10.2); Carbon Dioxide 24 mmol/L (22-29); Chloride 108 mmol/L (96-108); Creatinine Clr Calc Pharmacy 60.4; Estimated Glomerular Filt Rate > 60; Ethanol < 10 mg/dL; Glucose Random 246 mg/dL (60-115); Magnesium 1.8 mg/dL (1.6-2.6); Potassium 4.2 mmol/L (3.3-5.1); Sodium 142 mmol/L (135-145); Total Protein 7.8 g/dL (6.5-8.0)
[2024-01-30 17:11] LABS: Influenza A PCR NEGATIVE (Negative); Influenza B PCR NEGATIVE (Negative); Resp Syncy Virus RNA Qual PCR NEGATIVE (Negative); SARS COV2 PCR INHOUSE NEGATIVE (Negative)
[2024-01-30] MEDS: Nystatin Powder 15 GM BOTTLE 1 APPL TOPICAL (20:09)
--- NOTE | 2024-01-30 20:10 | PC.NURSE ---
150mls urine drained via straight cath, nystatin applied per order
[2024-01-30 20:20] LABS: Appearance Urine Clear; Color Urine Yellow; Glucose Urine UA Negative (Negative); Leukocyte Esterase Urine Negative (Negative); Nitrite Urine Positive (Negative); PH 5.5 (5.0-9.0); UMIC TRIGGER UACC YES; Urine Blood Negative (Negative); Urine Ketones Negative (Negative); Urine Protein 100 (2+) mg/dL (Neg-Trace)
[2024-01-30 20:29] LABS: Amphetamine Screen Urine Not Detected (Not Detect); Barbiturates, Urine Not Detected (Not Detect); Benzodiazepines Screen Urine Not Detected (Not Detect); Buprenorphine Scr Not Detected (Not Detect); Cannabinoid Screen Urine Not Detected (Not Detect); Cocaine Screen Urine Not Detected (Not Detect); Fentanyl, urine Not Detected (Not Detect); Methadone Screen, Urine Not Detected (Not Detect); Opiate Screen Urine Not Detected (Not Detect); Oxycodone Screen Urine Not Detected (Not Detect); Phencyclidine Screen Urine Not Detected (Not Detect)
[2024-01-30 21:19] LABS: Bacteria Urine 4+ (None Seen); Hyaline Casts Urine 0-2 /LPF (0-2); RBC Urine 0-2 /HPF (0-2); Squamous Epithelial Cell Urine 0-2 /HPF (0-2); UACC Culture Trigger YES; WBC Urine 0-5 /HPF (0-5)
[2024-01-30] MEDS: Nitrofurantoin Monohyd/M-Cryst 100 MG CAPSULE PO (22:07)
--- NOTE | 2024-01-30 23:13 | PC.NURSE ---
assumed care at 2213
[2024-01-31] VITALS (8 sets, daily range): BP systolic 119–186; BP diastolic 50–89; PULSE 60–94; RESP 14–16; TEMP 36.2–36.8; O2SAT 94–97
--- NOTE | 2024-01-31 00:49 | PC.NURSE ---
pt oob to the BR tolerated well
--- NOTE | 2024-01-31 12:16 | PHA.MEDREC ---
Pharmacy Consult ? Medication Reconciliation Pharmacy has completed the [facility] reconciliation[facility].
[2024-01-31] MEDS: Nitrofurantoin Monohyd/M-Cryst 100 MG CAPSULE PO ×2 (13:38→21:51)
[2024-01-31] MEDS: Baclofen 10 MG TABLET PO ×2 (13:38→21:51)
[2024-01-31] MEDS: QUEtiapine Fumarate 25 MG TABLET PO ×2 (13:38→18:00)
[2024-01-31] MEDS: Donepezil HCl 5 MG TABLET PO (13:39)
--- NOTE | 2024-01-31 13:56 | PC.NURSE ---
Pt currently calm, cooperative. Agreeable to take ordered medications whole with water. Pt ate lunch. Awaiting psychiatry consult, aware of plan.
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
--- NOTE | 2024-01-31 18:21 | PC.NURSE ---
patient is resting quietly, respirations equal and unlabored, medicated per MAR. patient is calm and cooperative, sitter at bedside
[2024-01-31] MEDS: QUEtiapine Fumarate 50 MG TABLET PO (21:51)
[2024-01-31] MEDS: Nystatin Powder 15 GM BOTTLE 1 APPL TOPICAL (21:52)
[2024-02-01 00:40] VITALS: BP 123/66; PULSE 82; RESP 16; TEMP 36.9; O2SAT 97
--- NOTE | 2024-02-01 03:24 | PC.NURSE ---
assumed care at 0300
[2024-02-01 06:11] VITALS: BP 158/79; PULSE 100; RESP 16; TEMP 36.7; O2SAT 96
--- NOTE | 2024-02-01 06:32 | PC.NURSE ---
pt calm and cooperative, able to follow command, sitter in room
[2024-02-01 09:27] VITALS: BP 151/64; PULSE 84; RESP 16; O2SAT 95
[2024-02-01] MEDS: Nystatin Powder 15 GM BOTTLE 1 APPL TOPICAL (09:28)
[2024-02-01] MEDS: Baclofen 10 MG TABLET PO ×2 (09:28→13:53)
[2024-02-01] MEDS: Nitrofurantoin Monohyd/M-Cryst 100 MG CAPSULE PO (09:28)
--- NOTE | 2024-02-01 09:34 | PC.NURSE ---
attempted to give pt her 0900 Namenda - pt refused, educated pt on the importance of the medication and its usefulness, pt stated theres nothing wrong with me or the way I think and I dont have dementia, the doctor told me so
[2024-02-01 11:57] LABS: Glucose, Whole Blood 196 mg/dL (60-115)
[2024-02-01] MEDS: Lactase TABLET 1 TAB PO ×2 (12:03→17:01)
[2024-02-01] MEDS: Insulin Lispro 100 UNIT/ML 3 ML VIAL SUBCUT ×2 (12:03→17:00)
[2024-02-01] MEDS: QUEtiapine Fumarate 25 MG TABLET PO ×2 (13:12→17:01)
--- NOTE | 2024-02-01 13:29 | MHC.CARE ---
Pt resides at the below location and will require transportation back to that facility: [facility] at [address], [place] [address]
[2024-02-01 16:56] LABS: Glucose, Whole Blood 166 mg/dL (60-115)
[2024-02-01 17:01] VITALS: BP 158/90; PULSE 92; RESP 18; TEMP 36; O2SAT 98
[2024-02-01] MEDS: Omeprazole 20 MG CAPSULE.DR PO (17:01)
[2024-02-01 18:14] VITALS: BP 156/90; PULSE 92; RESP 18; TEMP 36; O2SAT 98
== END 2024-02-01 18:16 | disposition other institution (70) ==
PROVIDERS: Emergency Provider Emergency Medicine Emergency Medical Services; PCP Family Medicine
DX: F03.911 Unspecified dementia, unspecified severity, with agitation (principal); F60.0 Paranoid personality disorder; F32.9 Major depressive disorder, single episode, unspecified; F41.9 Anxiety disorder, unspecified; G47.34 Idiopathic sleep related nonobstructive alveolar hypoventilation; F29 Unspecified psychosis not due to a substance or known physiological condition; E11.9 Type 2 diabetes mellitus without complications; I11.0 Hypertensive heart disease with heart failure; I50.9 Heart failure, unspecified; E78.5 Hyperlipidemia, unspecified; R06.02 Shortness of breath; Z79.4 Long term (current) use of insulin; Z79.82 Long term (current) use of aspirin; Z79.899 Other long term (current) drug therapy; J98.4 Other disorders of lung; Z03.818 Encounter for observation for suspected exposure to other biological agents ruled out
CPT/HCPCS: 0241U; 36415; 80053; 80307; 81001; 82947; 83735; 84443; 85025; 87086; 87088; 87186; 93005; 96372; 97166; 99285; J1200; J1630; J2060; S9485

== ENCOUNTER → 2024-01-30 15:54 | Outpatient (BNV) | payer MEDICARE, SELFPAY | PROVIDERS: Emergency Provider Emergency Medicine Emergency Medical Services; PCP Family Medicine; Visit Provider Internal Medicine | DX: R94.31 Abnormal electrocardiogram [ECG] [EKG] (principal) | CPT/HCPCS: 93010 ==

== ENCOUNTER → 2024-01-30 16:03 | Outpatient (BNV) | payer MEDICARE, SELFPAY | PROVIDERS: Emergency Provider Emergency Medicine Emergency Medical Services; PCP Family Medicine; Visit Provider Psychiatry & Neurology Psychiatry | DX: F03.90 Unspecified dementia, unspecified severity, without behavioral disturbance, psychotic disturbance, mood disturbance, and anxiety (principal); N39.0 Urinary tract infection, site not specified | CPT/HCPCS: 99283 ==

== ENCOUNTER 2024-02-01 18:41 | Emergency (ER) | payer MEDICARE, SELFPAY ==
[2024-02-01 18:55] VITALS: BP 136/88; PULSE 71; RESP 18; O2SAT 97; BMI 31.8
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
[2024-02-01 19:08] VITALS: BP 0/0; PULSE 0; RESP 0; TEMP -17.7; TEMP 0; O2SAT 0
== END 2024-02-01 19:09 | disposition skilled nursing facility (03) ==
PROVIDERS: Emergency Provider Emergency Medicine Emergency Medical Services
DX: F03.90 Unspecified dementia, unspecified severity, without behavioral disturbance, psychotic disturbance, mood disturbance, and anxiety (principal); I10 Essential (primary) hypertension; E11.9 Type 2 diabetes mellitus without complications; Z79.4 Long term (current) use of insulin; Z79.899 Other long term (current) drug therapy
CPT/HCPCS: 99282